=== PATIENT | male | born 1940 | race Caucasian/White ===

== ENCOUNTER 2023-04-08 14:39 | Outpatient (OUT) | payer MEDICARE, SELFPAY ==
[2023-04-08 16:09] LABS: Thyroid Stimulating Hormone 2.421 uIU/mL (0.358-3.740)
== END 2023-04-08 14:40 | disposition home or self-care (01) ==
LOC: LAB 14:42
PROVIDERS: PCP Internal Medicine; Visit Provider Psychiatry & Neurology Neurology
DX: G31.84 Mild cognitive impairment of uncertain or unknown etiology (principal)
CPT/HCPCS: 36415; 82607; 82746; 84443

== ENCOUNTER 2023-04-11 12:16 | Outpatient (OUT) | payer MEDICARE, SELFPAY ==
[2023-04-11 12:29] LABS: Hematocrit 43.3 % (42.0-54.0); Hemoglobin 14.2 g/dL (14.0-18.0); Mean Corpuscular HGB Conc 32.8 g/dL (29.9-35.2); Mean Corpuscular Hemoglobin 32.3 pg (25.9-34.0); Mean Corpuscular Volume 98.4 fL (80.0-94.0); Mean Platelet Volume 11.9 fL (9.5-13.5); Platelet Count 143 10^3/uL (150-450); Red Cell Distribution Width 14.6 % (11.0-15.0); White Blood Count 26.1 10^3/uL (4.0-11.0)
[2023-04-11 12:58] LABS: Segmented Neut Absolute Manual 3.91 10^3/uL (1.4-6.5)
[2023-04-11 12:59] LABS: Anisocytosis 1+; Atypical Lymphocytes Abs Man 7.8; Lymphocytes Absolute Manual 13.57 10^3/uL (1.20-3.80); Monocytes Absolute Manual 0.78 10^3/uL (0.30-0.80); Smudge Cells SEEN
[2023-04-11 13:45] LABS: Alanine Aminotransferase 27 U/L (16-63); Albumin Globulin Ratio 1.3; Albumin Level 3.8 g/dL (3.4-5.0); Alkaline Phosphatase 94 U/L (46-116); Anion Gap 10.8; Aspartate Amino Transferase 12 U/L (15-37); BUN Creatinine Ratio 14.4; Bilirubin Total 0.7 mg/dL (0.2-1.0); Calcium 8.7 mg/dL (8.5-10.1); Carbon Dioxide 29.5 mmol/L (21.0-32.0); Chloride 102 mmol/L (98-107); Chol HDL Ratio 4.4; Cholesterol 158 mg/dL (<=200); Estimated GFR (African America >60 (>=60); Estimated GFR (Non-African Ame >60 (>=60); Globulin 2.9 g/dL; Glucose 271 mg/dL (74-106); HDL Cholesterol 36 mg/dL (40-60); Potassium 4.3 mmol/L (3.5-5.1); Sodium 138 mmol/L (136-145); Total Protein 6.7 g/dL (6.4-8.2); Triglycerides 192 mg/dL (<=150); VLDL CHOLESTEROL 38.4 mg/dL
[2023-04-11 14:26] LABS: Estimated Average Glucose 246 mg/dL; Glycohemoglobin A1C 10.2 % (4.5-6.2)
[2023-04-11 14:40] LABS: Creatinine Urine Random 54.85 mg/dL (20.00-300.00); Microalbum Creatinine Ratio Ur 23.7 mg/g (0.0-29.9); Microalbumin Urine Random <1.3 mg/dL (<=30.0)
== END 2023-04-11 12:17 | disposition home or self-care (01) ==
LOC: LAB 12:16
PROVIDERS: PCP Internal Medicine; Visit Provider Internal Medicine
DX: E11.9 Type 2 diabetes mellitus without complications (principal); E78.5 Hyperlipidemia, unspecified
CPT/HCPCS: 36415; 80053; 80061; 82043; 82570; 83036; 85027

== ENCOUNTER 2023-07-09 14:56 | Outpatient (OUT) | payer MEDICARE, SELFPAY ==
[2023-07-09 15:32] LABS: Estimated Average Glucose 166 mg/dL; Glycohemoglobin A1C 7.4 % (4.5-6.2)
[2023-07-09 15:46] LABS: Chol HDL Ratio 4.4; Cholesterol 140 mg/dL (<=200); HDL Cholesterol 32 mg/dL (40-60); Triglycerides 224 mg/dL (<=150); VLDL CHOLESTEROL 44.8 mg/dL
== END 2023-07-09 14:57 | disposition home or self-care (01) ==
LOC: LAB 15:01
PROVIDERS: PCP Internal Medicine; Visit Provider Internal Medicine
DX: E78.5 Hyperlipidemia, unspecified (principal); E11.9 Type 2 diabetes mellitus without complications
CPT/HCPCS: 36415; 80061; 83036

== ENCOUNTER 2023-10-24 17:30 | Emergency (ER) | payer OTHER, SELFPAY ==
[2023-10-24 17:38] VITALS: BP 128/65; PULSE 91; RESP 16; TEMP 37.4; O2SAT 96; BMI 28.3
--- NOTE | 2023-10-24 17:41 | ED.MEDCLEAR1 ---
HPI - Medical Clearance General Chief complaint: Medical Clearance Stated complaint: HEADACHE, COUGH, WANTS CHECKED COVID Time Seen by Provider: 10/24/23 17:32 Source: patient Mode of arrival: walk-in Limitations: no limitations History of Present Illness HPI Narrative: Patient is an 83-year-old male who presents to the ER for 2-day history of headache and fatigue. He has not had any chest pain, shortness of breath, fevers, vomiting, diarrhea. He states he is supposed to do a service at a [place] [facility] on Saturday and wanted to be tested for COVID. No medications taken prior to arrival. No testing done by his PCP. He did not take any home COVID test. He states the headache comes and goes, no visual loss or peripheral paresthesias. No dizziness or syncope. He has no significant pain at this time. Related Information Home Medications Medication Instructions Recorded Confirmed gabapentin 300 mg capsule 300 mg PO Q12H 10/24/23 10/24/23 methotrexate sodium 2.5 mg tablet 2.5 mg PO .weekly 10/24/23 10/24/23 sitagliptin phosphate 100 mg 100 mg PO DAILY 10/24/23 10/24/23 tablet (Januvia) Previous Rx's Medication Instructions Recorded nirmatrelvir 300 mg (150 mg See Rx Instructions PO .COMPLEX 10/24/23 x2)-ritonavir 100 mg tablet,dose #30 ea pack (Paxlovid) Review of Systems ROS Constitutional Reports: fatigue; Denies: fever or chills Eyes Denies: change in vision Ears, nose, mouth, and throat Denies: throat pain or nasal congestion Cardiovascular Denies: chest pain Respiratory Reports: cough; Denies: shortness of breath Gastrointestinal Denies: nausea, vomiting or diarrhea Musculoskeletal Denies: back pain Integumentary/Breast Denies: rash Neurological Reports: headache Hematologic/Lymphatic Denies: easy bruising or easy bleeding PFSH PFS Social History Smoking status: Never smoker Exam Narrative Exam Narrative: Gen.: Awake, alert, in no distress Head: Normocephalic, atraumatic ENT: Moist mucous membranes, No meningismus or nuchal rigidity Respiratory: No respiratory distress, lungs clear bilaterally Cardio: Regular rate and rhythm Extremities: Moves extremities equally Psych: Normal mood and affect Neuro: No focal neuro deficit Skin: Warm, dry, intact Constitutional Vital Signs, click to edit/add: Last Vital Signs Temp 99.4 F 10/24/23 17:38 Pulse 91 H 10/24/23 17:38 Resp 16 10/24/23 17:38 BP 128/65 10/24/23 17:38 Pulse Ox 96 10/24/23 17:38 O2 Del Method Room Air 10/24/23 17:38 Course Vital Signs Vital signs: Vital Signs Temperature 99.4 F 10/24/23 17:38 Pulse Rate 91 H 10/24/23 17:38 Respiratory Rate 16 10/24/23 17:38 Blood Pressure 128/65 10/24/23 17:38 Pulse Oximetry 96 10/24/23 17:38 Oxygen Delivery Method Room Air 10/24/23 17:38 Temperature 99.4 F 10/24/23 17:38 Pulse Rate 91 H 10/24/23 17:38 Respiratory Rate 16 10/24/23 17:38 Blood Pressure 128/65 10/24/23 17:38 Pulse Oximetry 96 10/24/23 17:38 Oxygen Delivery Method Room Air 10/24/23 17:38 MDM - Medical Clearance MDM Narrative Medical decision making narrative: Patient is positive for COVID, stable vital signs in the ER and treated with Decadron. He is on methotrexate daily so we will consider treating with Paxlovid for home due to his age and immune compromise. Follow-up with PCP and return to the ER if symptoms change or worsen. Medical Records Attestation: I reviewed the patient's medical records. Lab Data Attestation: I reviewed the patient's lab results. Labs: Lab Results 10/24/23 Range/Units 17:40 Influenza Type A Ag Negative Influenza Type B Ag Negative SARS-CoV-2 Ag (CV2AG) Positive A (NEGATIVE) Discharge Plan Discharge Chief Complaint: Medical Clearance Clinical Impression: COVID-19 Patient Disposition: Home, Self-Care Time of Disposition Decision: 18:12 Condition: Good Prescriptions / Home Meds: New Paxlovid 300 mg (150 mg x 2)-100 mg tablets,dose pack See Rx Instructions .ROUTE .COMPLEX Qty: 30 0RF Rx Instructions: take TWO 150 mg tablets of nirmatrelvir with ONE 100 mg tablet of ritonavir twice daily for 5 days No Action gabapentin 300 mg capsule 300 mg PO Q12H methotrexate sodium 2.5 mg tablet 2.5 mg PO .weekly Januvia 100 mg tablet 100 mg PO DAILY Instructions: How to Recover from COVID-19 at Home (ED) Stand Alone Forms: Portal Instructions Referrals: Shaikh Barrera MD [Primary Care Provider] - 1 week
[2023-10-24] MEDS: DEXAMETHASONE SOD PHOS 10 MG/ML VIAL PO (17:57)
[2023-10-24 18:09] LABS: Influenza Virus A Antigen Negative; Influenza Virus B Antigen Negative; Internal Control Within Normal Limits; SARS-CoV-2 Ag POSITIVE (NEGATIVE)
--- OUTSIDE RECORDS SUMMARY | 2023-10-24 18:10 | XMS_ITS | CCD ---
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 Ordering Facility: [facility] Address: [address] [place] [address] Performed By: #### 3 084-1, 0, #### [facility] CLIA [id number] [address] [place] [address] 81931 ALT [Catalytic activity/Vol] 13 U/L Normal 10-54 [facility] Comment on above: Order Comment: Speci men Type: BLOOD SPECIMEN Ordering Facility: [facility] Address: [address] [place] [address] Performed By: #### 3 084-1, 2531-0, #### [facility] CLIA [id number] [address] [place] [address] 10204 Anion gap [Moles/Vol] 9 mmol/L Normal 9-18 [facility] Comment on above: Order Comment: Speci men Type: BLOOD SPECIMEN Ordering Facility: [facility] Address: [address] [place] [address] Performed By: #### 3 084-1, 0, #### [facility] CLIA [id number] [address] [place] [address] 62590 AST [Catalytic activity/Vol] 16 U/L Normal 14-40 [facility] Comment on above: Order Comment: Speci men Type: BLOOD SPECIMEN Ordering Facility: [facility] Address: [address] [place] [address] Performed By: #### 3 084-1, 0, #### [facility] CLIA [id number] [address] [place] [address] 79864 Bilirubin [Mass/Vol] 0.6 mg/dL Normal 0.2-1.3 [facility] Comment on above: Order Comment: Speci men Type: BLOOD SPECIMEN Ordering Facility: [facility] Address: [address] [place] [address] Performed By: #### 3 084-1, 0, #### [facility] CLIA [id number] [address] [place] [address]100 Calcium [Mass/Vol] 10.0 mg/dL Normal 8.5-10.2 [facility] Comment on above: Order Comment: Speci men Type: BLOOD SPECIMEN Ordering Facility: [facility] Address: [address] [place] [address] Performed By: #### 3 084-1, 0, #### [facility] CLIA [id number] [address] [place] [address] 15628 Chloride [Moles/Vol] 103 mmol/L Normal 97-105 [facility] Comment on above: Order Comment: Speci men Type: BLOOD SPECIMEN Ordering Facility: [facility] Address: [address] [place] [address] Performed By: #### 3 084-1, 0, #### [facility] CLIA [id number] [address] [place] [address] 65940 CO2 [Moles/Vol] 29 mmol/L Normal 22-30 [facility] Comment on above: Order Comment: Speci men Type: BLOOD SPECIMEN Ordering Facility: [facility] Address: [address] [place] [address] Performed By: #### 3 084-1, 2532-0, 54078-2 #### [facility] CLIA [id number] [address] [place] [address] 08268 Creatinine [Mass/Vol] 1.04 mg/dL Normal 0.73-1.22 [facility] Comment on above: Order Comment: Speci men Type: BLOOD SPECIMEN Ordering Facility: [facility] Address: [address] [place] [address] Performed By: #### 3 084-1, 253-0, #### [facility] CLIA [id number] [address] [place], [place] [id number] Creatinine and Glomerular filtration rate.predicted panel (S/P/Bld) 70 mL/min/1.73m??? Normal >=60 [facility] Comment on above: Order Comment: Speci men Type: BLOOD SPECIMEN Ordering Facility: [facility] Address: [address] [place] [address] Result Comment: Mandy mated Glomerular Filtration Rate (eGFR) is calculated using the 2020 CKD-EPI creatinine equation. This equation utilizes serum creatinine, sex, and age as parameters. The creatinine assay has traceable calibration to isotope dilution-mass spectrometry. Refer to KDIGO guidelines for clinical interpretation. In patients with unstable renal function, e.g. those with acute kidney injury, the eGFR may not accurately reflect actual GFR. Performed By: #### 3 084-1, 2532-0, 58278-5 #### [facility] CLIA [id number] [address] [place] [address] 76614 Glucose [Mass/Vol] 168 mg/dL High 74-99 [facility] Comment on above: Order Comment: Speci men Type: BLOOD SPECIMEN Ordering Facility: [facility] Address: [address] [place] [address] Result Comment: The [place] [employer] (ADA) provides guidance for cutoff values for fasting glucose and random glucose. The ADA defines fasting as no caloric intake for at least 8 hours. Fasting plasma glucose results between 100 to 125 mg/dL indicate increased risk for diabetes (prediabetes). Fasting plasma glucose results greater than or equal to 126 mg/dL meet the criteria for diagnosis of diabetes. In the absence of unequivocal hyperglycemia, results should be confirmed by repeat testing. In a patient with classic symptoms of hyperglycemia or hyperglycemic crisis, random plasma glucose results greater than or equal to 200 mg/dL meet the criteria for diagnosis of diabetes. Reference: Standards of Medical Care in Diabetes 2016, [place] [employer]. Diabetes Care. 2016.39(Suppl 1). Performed By: #### 3 084-1, 2531-0, #### [facility] CLIA [id number] [address] [place] [address] 32058 Potassium [Moles/Vol] 4.5 mmol/L Normal 3.7-5.1 [facility] Comment on above: Order Comment: Speci men Type: BLOOD SPECIMEN Ordering Facility: [facility] Address: [address] [place] [address] Performed By: #### 3 084-1, 0, #### [facility] CLIA [id number] [address] [place] [address] 89432 Protein [Mass/Vol] 6.8 g/dL Normal 6.3-8.0 [facility] Comment on above: Order Comment: Speci men Type: BLOOD SPECIMEN Ordering Facility: [facility] Address: [address] [place] [address] Performed By: #### 3 084-1, 2531-0, #### [facility] CLIA [id number] [address] [place] [address] 46842 Sodium [Moles/Vol] 141 mmol/L Normal 136-144 [facility] Comment on above: Order Comment: Speci men Type: BLOOD SPECIMEN Ordering Facility: [facility] Address: [address] [place] [id number] Performed By: #### 3 084-1, 2532-0, 89106-6 #### [facility] CLIA [id number] [address] [place] [address] 43610 Urea nitrogen [Mass/Vol] 23 mg/dL Normal 9-24 [facility] Comment on above: Order Comment: Speci men Type: BLOOD SPECIMEN Ordering Facility: [facility] Address: [place] [address] Performed By: #### 3 084-1, 2531-0, #### [facility] CLIA [id number] [address] [place] [address] 53602 Albumin [Mass/Vol] 4.6 g/dL 3.9 - 4.9 g/dL [facility] ALP [Catalytic activity/Vol] 93 U/L 38 - 113 U/L [facility] ALT [Catalytic activity/Vol] 13 U/L 10 - 54 U/L [facility] Anion gap [Moles/Vol] 9 mmol/L 9 - 18 mmol/L [facility] AST [Catalytic activity/Vol] 16 U/L 14 - 40 U/L [facility] Bilirubin [Mass/Vol] 0.6 mg/dL 0.2 - 1 .3 mg/dL [facility] Calcium [Mass/Vol] 10.0 mg/dL 8.5 - 10. 2 mg/dL [facility] Chloride [Moles/Vol] 103 mmol/L 97 - 10 5 mmol/L [facility] CO2 [Moles/Vol] 29 mmol/L 22 - 30 mmol/L [facility] Creatinine [Mass/Vol] 1.04 mg/dL 0.73 - 1.22 mg/dL [facility] Estimated Glomerular Filtration Rate 70 mL/min/1.73m >=60 mL/min/1.73m [facility] Glucose [Mass/Vol] 168 mg/dL High 74 - 99 mg/dL [facility] Potassium [Moles/Vol] 4.5 mmol/L 3.7 - 5.1 mmol/L [facility] Protein [Mass/Vol] 6.8 g/dL 6.3 - 8.0 g/dL [facility] Sodium [Moles/Vol] 141 mmol/L 136 - 144 mmol/L [facility] Urea nitrogen [Mass/Vol] 23 mg/dL 9 - 24 mg/dL [facility] LD LACTATE DEHYDROon 023 LDH [Catalytic activity/Vol] 193 U/L 135 - 225 U/L [facility] LDH SerPl-cCncon 08-08-2023 LDH [Catalytic activity/Vol] 193 U/L Normal 135-225 [facility] Comment on above: Order Comment: Speci men Type: BLOOD SPECIMEN Ordering Facility: [facility] Address: [address] [place], [place] [address] Result Comment: Hemo lysis present. The origin of the hemolysis, in vitro versus an in vivo hemolytic process, cannot be distinguished via this assay alone. In vitro hemolysis may lead to non-physiological (spurious) elevation in lactate dehydrogenase (LDH) results. The result should be interpreted in context of the clinical setting and other test results. Suggest reorder as clinically indicated. Performed By: #### 3 084-1, 2532-0, 34243-5 #### [facility] CLIA [id number] [address] [place] [address] 41590 URIC ACID BLOODon 08-08-2023 Urate [Mass/Vol] 4.9 mg/dL 4.0 - 8.1 mg/dL [facility] Urate SerPl-mCncon 3 Urate [Mass/Vol] 4.9 mg/dL Normal 4.0-8.1 [facility] Comment on above: Order Comment: Speci men Type: BLOOD SPECIMEN Ordering Facility: [facility] Address: [address] [place], [place] [address] Performed By: #### 3 084-1, 2532-0, 32957-5 #### [facility] CLIA [id number] [address] [place] [address] 57218 ECHOCARDIO M/2D COMPLETEon 1 09-30-2021 ECHOCARDIO M/2D COMPLETE Patient: RISHI DE LEON Exam Date: 07/31/2022 : 1940 Gender:M Ordering : SUZANNE MARIN CNP Admission #: [id number] Family : Order #: [id number] CLICK HERE TO VIEW EXAM ECHOCARDIOGRAM REPORT PROCEDURE: CARDIO PULMONARY ECHOCARDIO M/2D COMP INDICATIONS: Murmur COMPARISON: None. DESCRIPTION: COMPLETE ECHOCARDIOGRAM Real-time transthoracic echocardiography with 2D, M-mode, spectral and color flow Doppler performed. QUALITY: Technical quality was good. LEFT VENTRICLE: Normal chamber size. Thickened septal wall. LV EF: Global left ventricular systolic function is normal. Visual estimation of left ventricular ejection fraction is 60%. DIASTOLIC: Unable to assess diastolic function due to severity of mitral regurgitation. ATRIAL SEPTUM: Inadequately seen. LEFT ATRIUM: Moderate dilatation. RIGHT ATRIUM: Normal chamber size. RIGHT VENTRICLE: Mild dilatation. Normal right ventricular systolic function. Right ventricular hypertrophy seen. TRICUSPID VALVE: Normal mobility and thickness. No stenosis with trivial regurgitation. Mild pulmonary hypertension. RVSP 35mmHg MITRAL VALVE: Anterior and posterior mitral valve leaflet prolapse. No evidence of mitral valve stenosis. Moderate mitral annular calcification. Moderate to severe mitral regurgitation. Calcification of the mitral subvalvular apparatus. AORTIC VALVE: Normal trileaflet appearance. No visible sclerosis. Normal leaflet mobility. No evidence of aortic valve stenosis. Mild aortic regurgitation. AORTIC ROOT: Mildly dilated measuring 3.7cm. PULMONIC VALVE: Normal thickness and mobility. No stenosis. No regurgitation. PERICARDIUM: Trivial pericardial effusion. IVC: Collapses with inspirations. Normal size. CONCLUSION: Global left ventricular systolic function is normal; visually estimated ejection fraction is 60 to 65%. No wall motion abnormalities. Unable to assess diastolic function. Moderate left atrial dilatation. Right ventricle appears dilated with normal systolic function. Right ventricular hypertrophy is seen. Mildly elevated right ventricular systolic pressure. Bileaflet mitral valve prolapse. Moderate to severe mitral regurgitation. Mild aortic regurgitation. The aortic root is mildly dilated. Trivial pericardial effusion. Adult Echocardiography Procedure Report Left Ventricle LVEDD (3.7 - 5.6 cm): 5.07 cm LVESD (2.2 - 4.0 cm): 3.31 cm LVIVS thickness (0.6 - 1.2 cm): 1.18 cm LVPW thickness (0.5 - 1.0 cm): 0.89 cm e': 0.06 m/s E - e': 19.37 LVOT Max Gradient: 3.74 mm[Hg] Peak Velocity (LVOT): 0.97 m/s LVOT Diameter 2.18 cm Left Ventricular Ejection Fraction: 63.41 %, 63.41 % Left Atrium LA Volume Index (2D A2C): 73.67 ml, 73.67 ml Left Atrium Systolic Dimension: 3.56 cm Mitral Valve MV E to A Ratio: 1.13, 1.25 Mitral Valve A-Wave Peak Velocity: 0.92 m/s, 0.97 m/s Mitral Valve E-Wave Peak Velocity: 1.04 m/s, 1.22 m/s Right Ventricle RV Internal Diastolic Dimension: 3.87 cm Aorta AO Root Diam: 3.70 cm Ascending Ao Diam: 3.16 cm Aortic Valve AoV Area (Peak Des): 3.25 cm2, 3.25 cm2 Deceleration [place]: 0.65 m/s2 Pressure Half-Time: 897.66 ms Peak Velocity(Antegrade Flow): 1.11 m/s Peak Gradient(Antegrade Flow): 4.88 mm[Hg] Tricuspid Valve Peak Velocity (Regurgitant Flow): 3.25 m/s, 2.73 m/s, 2.40 m/s Peak Velocity: 0.38 m/s Pulmonic Valve Peak Velocity: 0.92 m/s, 0.89 m/s Peak Gradient: 3.42 mm[Hg], 3.18 mm[Hg] Right Atrium Right Atrium Systolic Pressure: 39.32 ml, 39.32 ml Dictated by: Gisela Mendes M.D. on 08/01/2022 at 15:17 Approved by: Gisela Mendes M.D. on 08/01/2022 at 15:23 Normal [facility] GLYCOHEMOGLOBIN A1Con 2021 ADA RECOMMENDATION SEE BELOW Normal [facility] Comment on above: Result Comment: ADA RECOMMENDED LIMIT 4.0 - 6.0 ADA THERAPEUTIC TARGET < 7.0 ACTION SUGGESTED > 7.0 Performed By: #### A 1C #### [facility] [address] [place] [address] [address] Estrada Carpenter Glucose [Mass/Vol] 206 mg/dL Normal [facility] Comment on above: Performed By: #### A 1C #### [facility] [address] [place], [place] [address] Dr. Estrada Carpenter HbA1c (Bld) [Mass fraction] 8.8 % Critically high 4.5-6.2 [facility] Comment on above: Performed By: #### A 1C #### [facility] [address] [place] [address] Dr. Estrada Carpenter PROF CHEM 8 (BAS METB)on Anion gap [Moles/Vol] 10.7 mmol/L Normal [facility] Comment on above: Performed By: #### B MP #### [facility] [address] [place] [address] Dr. Estrada Carpenter Calcium [Mass/Vol] 8.8 mg/dL Normal 8.5-10.1 [facility] Comment on above: Performed By: #### B MP #### [facility] [address] [place] [address] Dr. Estrada Carpenter Chloride [Moles/Vol] 103 mmol/L Normal 98-107 [facility] Comment on above: Performed By: #### B MP #### [facility] [address] [place] [address] Dr. Estrada Carpenter CO2 [Moles/Vol] 26.4 mmol/L Normal 21.0-32.0 [facility] Comment on above: Performed By: #### B MP #### [facility] [address] [place] [address] Dr. Estrada Carpenter Creatinine [Mass/Vol] 0.89 mg/dL Normal 0.70-1.30 [facility] Comment on above: Performed By: #### B MP #### [facility] [address] [place] [address] Dr. Estrada Carpenter EGFR-AF VINCENTIAN >60 Normal >=60 [facility] Comment on above: Performed By: #### B MP #### [facility] [address] [place] [address] Dr. Estrada Carpenter EGFR-NON AF VINCENTIAN >60 Normal >=60 [facility] Comment on above: Performed By: #### B MP #### [facility] [address] [place] [address] Dr. Estrada Carpenter Glucose [Mass/Vol] 167 mg/dL Critically high 74-106 [facility] Comment on above: Performed By: #### B MP #### [facility] [address] [place] [address] [address] Estrada Carpenter Potassium [Moles/Vol] 4.1 mmol/L Normal 3.5-5.1 [facility] Comment on above: Performed By: #### B MP #### [facility] [address] [place] [address] [address] Estrada Carpenter Sodium [Moles/Vol] 136 mmol/L Normal 136-145 [facility] Comment on above: Performed By: #### B MP #### [facility] [address] [place] [address] [address] Estrada Carpenter Urea nitrogen [Mass/Vol] 17.0 mg/dL Normal 7.0-18.0 [facility] Comment on above: Performed By: #### B MP #### [facility] [address] [place] [address] [address] Estrada Carpenter Urea nitrogen/Creatinine [Mass ratio] 19.1 mg/mg Normal [facility] Comment on above: Performed By: #### B MP #### [facility] [address] [place] [address] [address] Estrada Carpenter US abdomen limitedon 022 US abdomen limited [facility] [place] [address] Ultrasound Report Signed with Addenda Patient: Rishi De Leon MR#: [id number] : 1940 Acct:[id number] Age/Sex: 82 / M ADM Date: 05/08/22 Loc: Room: Type: [facility] Attending Dr: Shaikh Destinee CARIAS Ordering Provider: Shaikh Destinee MD Date of Service: 05/08/22 US/US abdomen limited: SCROTAL PAIN Copies to: Shaikh Destinee MD ADDENDUM 1 Correction to the history: A prior colostomy site is in the region of the concern involving the left lower quadrant. Findings seen on today's study likely represents fat protruding through the prior colostomy site. Impression dictated by: Tan Zapien Jr., D.O.05/08/2022 6:39 PM Dictation Location: [facility]- Addendum Dictated By: Tan Zapien Jr, DO Addendum Signed By: 05/08/221838 Addendum Cosigned By: DD/ /21/1837 TD/TT: 05/08/2202/21/1839 Soft tissue ULTRASOUND: CLINICAL HISTORY: LLQ pain with protrusion COMPARISON: None TECHNIQUE: Grayscale and color Doppler images of the LLQ was obtained. FINDINGS: An area of concern involving the left lower quadrant, scarring is noted. In addition, there appears to be a hernia defect containing fat best seen on the cine imaging. No peristalsing bowel is noted. Per technologist, the patient has a colostomy within the region. No solid mass or fluid collection. US/US abdomen limited IMPRESSION: A HERNIA DEFECT CONTAINING FAT IS SEEN IN THE AREA OF CONCERN INVOLVING THE LEFT LOWER QUADRANT. PER TECHNOLOGIST, A COLOSTOMY IS WITHIN THIS REGION. 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 NO PERISTALSING BOWEL IS NOTED. FINDING CAN BE FURTHER EVALUATED BY CT.. Impression dictated by: Tan Zapien Jr., D.O.05/08/2022 5:59 PM Dictation Location: [place] [address] Tech: Justa Edmonds Transcribed By: DEIDRA 05/08/221758 Dictated By: Tan Zapien Jr, DO 05/08/22 174 Signed By: 05/08/221758 [facility] US scrotumon 05-08-2022 US scrotum [facility] [address] Ultrasound Report Signed Patient: Rishi De Leon MR#: [id number] : 1940 Acct:[id number] Age/Sex: 82 / M ADM Date: 05/08/22 Loc: Room: Type: [facility] Attending Dr: Shaikh Destinee CARIAS Ordering Provider: Shaikh Destinee MD Date of Service: 05/08/22 US/US scrotum: N50.82 Copies to: Shaikh Destinee MD Scrotal ultrasound. Reason for exam: Left testicular pain. COMPARISON: None. TECHNIQUE: Grayscale, color Doppler and spectral Doppler imaging of the scrotal contents were obtained. FINDINGS: Right testicle measures 4.3 x 1.8 x 3.8 cm. Normal arterial and venous Doppler waveforms. No mass or microlithiasis. Epididymis demonstrates a cyst measuring 2.8 cm. Small complex hydrocele Left testicle measures 4.7 x 2.6 x 2.8 cm. Normal arterial and venous Doppler waveforms. No mass or microlithiasis. Epididymis appears unremarkable. No hydrocele. US/US scrotum IMPRESSION: 1. No evidence of testicular mass or torsion. 2. Small complex right-sided hydrocele. 3. Right epididymal cyst measuring 2.8 cm. Impression dictated by: Tan Zapien Jr., D.O.05/08/2022 6:16 PM Dictation Location: [place] [address] Tech: Justa Edmonds Transcribed By: DEIDRA 05/08/221815 Dictated By: Tan Zapien Jr, DO 05/08/221811 Signed By: 05/08/221815 Normal [facility] CBC W MANUAL DIFFon 01-04-20 ATYPICAL LYMPH # Normal [facility] Comment on above: Performed By: #### C BCDEEPTI #### [facility] [address] [place] [address] Dr. Estrada Carpenter ATYPICAL LYMPH % Normal [facility] Comment on above: Performed By: #### C BCMAN #### [facility] [address] [place] [address] [address] Estrada Carpenter BAND # 0.0 103/ul Normal 0.0-0.[address] [facility] Comment on above: Performed By: #### C BCMAN #### [facility] [address] [place] [address] [address] Estrada Carpenter BAND % 0 % Normal 0-[address] [facility] Comment on above: Performed By: #### C BCMAN #### [facility] [address] [place] [address] Dr. Estrada Carpenter BASOM # 0.00 103/ul Normal 0.00-0.[address] [facility] [facility] Comment on above: Performed By: #### C BCMAN #### [facility] [address] [address] [address] Estrada Carpenter BASOM % 0.0 % Critically low 0.2-2.0 [facility] Comment on above: Performed By: #### C BCMAN #### [facility] [address] [address] [address] Estrada Carpenter BLAST # Normal [facility] Comment on above: Performed By: #### C BCMAN #### [facility] [address] [address] [address] Estrada Carpenter BLAST % Normal [facility] Comment on above: Performed By: #### C BCMAN #### [facility] [address] [address] [address] Estrada Carpenter CORRECTED WBC Normal 4.0-11.0 [facility] Comment on above: Performed By: #### C SHLOMOMAN #### [facility] [address] [place] [address] Dr. Estrada Carpenter EOS # 0.00 103/ul Normal 0.00-0.70 [facility] Comment on above: Performed By: #### C BCDEEPTI #### [facility] [address] [place] [address] Dr. Estrada Carpenter EOS% 0.0 % Critically low 0.9-7.0 [facility] Comment on above: Performed By: #### C BCDEEPTI #### [facility] [address] [place] [address] Dr. Estrada Carpenter HCT 44.2 % Normal 42.0-54.0 [facility] Comment on above: Performed By: #### C BCMAN #### [facility] [address] [place] [address] Dr. Estrada Carpenter HGB 13.8 g/dl Critically low 14.0-18.0 [facility] Comment on above: Performed By: #### C BCMAN #### [facility] [address] [place] [address] Dr. Estrada Carpenter LYMPHM # 14.11 103/ul Critically high 1.20-3.80 [facility] Comment on above: Performed By: #### C BCMAN #### [facility] [address] [address] [address] Estrada Carpenter LYMPHM% 72.0 % Critically high 20.5-60.0 [facility] Comment on above: Performed By: #### C KATIE #### [facility] [address] [place] [address] Dr. Estrada Carpenter MCH 31.3 pg Normal 25.9-34.[address] [facility] Comment on above: Performed By: #### C KATIE #### [facility] [address] [place] [address] Dr. Estrada Carpenter MCHC 31.2 g/dl Normal 29.9-35.2 [facility] Comment on above: Performed By: #### C KATIE #### [facility] [address] [place] [address] Dr. Estrada Carpenter MCV 100.2 fL Critically high 80.0-94.0 [facility] Comment on above: Performed By: #### C KATIE #### [facility] [address] [place] [address] Dr. Estrada Carpenter METAMYELOCYTE # Normal [facility] Comment on above: Performed By: #### C KATIE #### [facility] [address] [place] [address] Dr. Estrada Carpenter METAMYELOCYTE % Normal [facility] Comment on above: Performed By: #### C KATIE #### [facility] [address] [place] [address] Dr. Estrada Carpenter MONOM# 0.78 103/ul Normal 0.30-0.80 [facility] Comment on above: Performed By: #### C KATIE #### [facility] [address] [place] [address] Dr. Estrada Carpenter MONOM% 4.0 % Normal 1.7-12.0 [facility] Comment on above: Performed By: #### C KATIE #### [facility] [address] [place] [address] Dr. Estrada Carpenter MPV 12.1 fL Normal 9.5-13.[address] [facility] Comment on above: Performed By: #### C BCMAN #### [facility] [address] [address] [address] Estrada Carpenter MYELOCYTE # Normal [facility] Comment on above: Performed By: #### C BCMAN #### [facility] [address] [address] [address] Estrada Carpenter MYELOCYTE % Normal [facility] Comment on above: Performed By: #### C BCDEEPTI #### [facility] [address] [address] [address] Estrada Carpenter NRBC Normal [facility] Comment on above: Performed By: #### C BCDEEPTI #### [facility] [address] [address] [address] Estrada Carpenter PLT 166 103/ul Normal 150-450 [facility] Comment on above: Performed By: #### C KATIE #### [facility] [address] [place] [address] Dr. Estrada Carpenter RBC 4.41 106/ul Critically low 4.70-6.10 [facility] Comment on above: Performed By: #### C KATIE #### [facility] [address] [place] [address] Dr. Estrada Carpenter RDW 14.9 % Normal 11.0-15.0 [facility] Comment on above: Performed By: #### C BCDEEPTI #### [facility] [address] [place] [address] Dr. Estrada Carpenter SEG # 4.70 103/ul Normal 1.40-6.50 [facility] Comment on above: Performed By: #### C BCDEEPTI #### [facility] [address] [place] [address] Dr. Estrada Carpenter SEG % 24.0 % Critically low 43.0-75.0 [facility] Comment on above: Performed By: #### C BCDEEPTI #### [facility] [address] [place] [address] Dr. Estrada Carpenter WBC 19.6 103/ul Critically high 4.0-11.0 [facility] Comment on above: Performed By: #### C BCMAN #### [facility] [address] [address] [address] Estrada Carpenter GLYCOHEMOGLOBIN A1Con 2021 ADA RECOMMENDATION SEE BELOW Normal [facility] Comment on above: Result Comment: ADA RECOMMENDED LIMIT 4.0 - 6.0 ADA THERAPEUTIC TARGET < 7.0 ACTION SUGGESTED > 7.0 Performed By: #### A 1C #### [facility] [address] [address] [address] Estrada Carpenter Glucose [Mass/Vol] 151 mg/dL Normal [facility] Comment on above: Performed By: #### A 1C #### [facility] [address] [place] [address] Dr. Estrdaa Carpenter HbA1c (Bld) [Mass fraction] 6.9 % Critically high 4.5-6.2 [facility] Comment on above: Performed By: #### A 1C #### [facility] [address] [address] [address] Estrada Carpenter LIPID PROFILEon 01-03-2022 CHOL-HDL RATIO NORM SEE BELOW Normal [facility] Comment on above: Result Comment: 3.3 - 4.4 LOW RISK 4.4 - 7.1 AVERAGE RISK 7.1 - 11.0 MODERATE RISK >11.0 HIGH RISK Performed By: #### C MP, LIPID #### [facility] [address] [place] [address] Dr. Estrada Carpenter Cholesterol [Mass/Vol] 158 mg/dL Normal <=[address] [facility] Comment on above: Performed By: #### C MP, LIPID #### [facility] [address] [address] [address] Estrada Carpenter Cholesterol in HDL [Mass/Vol] 42 mg/dL Normal 40-[address] [facility] Comment on above: Performed By: #### C MP, LIPID #### [facility] [address] [address] [address] Estrada Carpenter Cholesterol in LDL [Mass/Vol] 85.0 mg/dL Normal [facility] Comment on above: Performed By: #### C MP, LIPID #### [facility] [address] [address] [address] Estrada Carpenter Cholesterol.total/Ch olesterol in HDL [Mass ratio] 3.8 {ratio} Normal [facility] Comment on above: Performed By: #### C MP, LIPID #### [facility] [address] [address] [address] Estrada Carpenter HDL NORMAL > or = 60 mg/dl - LO W CARDIOVASCULAR RISK <40 mg/dl - HIGH CARDIOVASCULAR RISK Normal [facility] Comment on above: Performed By: #### C MP, LIPID #### [facility] [address] [address] [address] Estrada Carpenter LDL CALC NORMAL SEE BELOW Normal [facility] Comment on above: Result Comment: <100 mg/dl OPTIMAL 100 - 129 mg/dl NEAR OR ABOVE OPTIMAL 130 - 159 mg/dl BORDERLINE HIGH 160 - 189 mg/dl HIGH >190 mg/dl VERY HIGH Performed By: #### C MP, LIPID #### [facility] [address] [place] [address] Dr. Estrada Carpenter Triglyceride [Mass/Vol] 155 mg/dL Critically high <=150 [facility] Comment on above: Performed By: #### C MP, LIPID #### [facility] [address] [place] [address] Dr. Estrada Carpenter VLDL CALC 31.0 mg/dL Normal [facility] Comment on above: Performed By: #### C MP, LIPID #### [facility] [address] [place] [address] Dr. Estrada Carpenter PROF 14(COMP METB)on 022 Albumin [Mass/Vol] 3.8 g/dL Normal 3.4-5.0 [facility] Comment on above: Performed By: #### C MP, LIPID #### [facility] [address] [place] [address] Dr. Estrada Carpenter Albumin/Globulin [Mass ratio] 1.3 {ratio} Normal [facility] Comment on above: Performed By: #### C MP, LIPID #### [facility] [address] [place] [address] Dr. Estrada Carpenter ALP [Catalytic activity/Vol] 92 U/L Normal 46-116 [facility] Comment on above: Performed By: #### C MP, LIPID #### [facility] [address] [address] [address] Estrada Carpenter ALT [Catalytic activity/Vol] 26 U/L Normal 16-63 [facility] Comment on above: Performed By: #### C MP, LIPID #### [facility] [address] [address] [address] Estrada Carpenter Anion gap [Moles/Vol] 11.2 mmol/L Normal [facility] Comment on above: Performed By: #### C MP, LIPID #### [facility] [address] [place] [address] Dr. Estrada Carpenter AST [Catalytic activity/Vol] 17 U/L Normal 15-37 [facility] Comment on above: Performed By: #### C MP, LIPID #### [facility] [address] [address] [address] Estrada Carpenter Bilirubin [Mass/Vol] 0.5 mg/dL Normal 0.2-1.0 [facility] Comment on above: Performed By: #### C MP, LIPID #### [facility] [address] [address] [address] Estrada Carpenter Calcium [Mass/Vol] 8.4 mg/dL Critically low 8.5-10.1 [facility] Comment on above: Performed By: #### C MP, LIPID #### [facility] [address] [address] [address] Estrada Carpenter Chloride [Moles/Vol] 102 mmol/L Normal 98-107 [facility] Comment on above: Performed By: #### C MP, LIPID #### [facility] [address] [address] [address] Estrada Carpenter CO2 [Moles/Vol] 29.3 mmol/L Normal 21.0-32.0 [facility] Comment on above: Performed By: #### C MP, LIPID #### [facility] [address] [place] [address] Dr. Estrada Carpenter Creatinine [Mass/Vol] 0.89 mg/dL Normal 0.70-1.30 [facility] Comment on above: Performed By: #### C MP, LIPID #### [facility] [address] [place] [address] Dr. Estrada Carpenter EGFR-AF VINCENTIAN >60 Normal >=60 [facility] Comment on above: Performed By: #### C MP, LIPID #### [facility] [address] [address] [address] Estrada Carpenter EGFR-NON AF VINCENTIAN >60 Normal >=60 [facility] Comment on above: Performed By: #### C MP, LIPID #### [facility] [address] [place] [address] Dr. Estrada Carpenter Globulin (S) [Mass/Vol] 3.0 g/dL Normal [facility] Comment on above: Performed By: #### C MP, LIPID #### [facility] [address] [place] [address] Dr. Estrada Carpenter Glucose [Mass/Vol] 145 mg/dL Critically high 74-106 [facility] Comment on above: Performed By: #### C MP, LIPID #### [facility] [address] [place] [address] Dr. Estrada Carpenter Potassium [Moles/Vol] 4.5 mmol/L Normal 3.5-5.1 [facility] Comment on above: Performed By: #### C MP, LIPID #### [facility] [address] [place] [address] Dr. Estrada Carpenter Protein [Mass/Vol] 6.8 g/dL Normal 6.1-8.2 [facility] Comment on above: Performed By: #### C MP, LIPID #### [facility] [address] [place] [address] Dr. Estrada Carpenter Sodium [Moles/Vol] 138 mmol/L Normal 136-145 [facility] Comment on above: Performed By: #### C MP, LIPID #### [facility] [address] [place] [address] Dr. Estrada Carpenter Urea nitrogen [Mass/Vol] 15.0 mg/dL Normal 7.0-18.0 [facility] Comment on above: Performed By: #### C MP, LIPID #### [facility] [address] [address] [address] Estrada Carpenter Urea nitrogen/Creatinine [Mass ratio] 16.9 mg/mg Normal [facility] Comment on above: Performed By: #### C MP, LIPID #### [facility] [address] [address] [address] Estrada Carpenter BASIC METABOLIC PANEL 12-3 Calcium [Mass/Vol] 8.9 mg/dL Normal 8.6-10.3 [facility] Comment on above: Order Comment: No: D o not add to previous draw Performed By: #### 1 69, [id number] ####[facility] [facility] [address], [facility] Chloride [Moles/Vol] 107 mmol/L Normal 98-[address] [facility] Comment on above: Order Comment: No: D o not add to previous draw Performed By: #### 1 69, [id number] ####[facility] [place] [address], [place] CO2 [Moles/Vol] 29 mmol/L Normal 21-31 [facility] Comment on above: Order Comment: No: D o not add to previous draw Performed By: #### 1 69, 10313 ####[facility] [place] [address], [place] Creatinine [Mass/Vol] 0.79 mg/dL Normal 0.70-1.[address] [facility] Comment on above: Order Comment: No: D o not add to previous draw Performed By: #### 1 69, 86896 ####[facility] [place] [address], [place] GFR/1.73 sq M.predicted among blacks MDRD (S/P/Bld) [Vol rate/Area] mL/min/{1.73_m2} Normal >[address] [facility] Comment on above: Order Comment: No: D o not add to previous draw Result Comment: Calc ulation may not be valid for patients over 70 years Performed By: #### 1 0, [id number] ####[facility] [place] [address], [facility] GFR/1.73 sq M.predicted among non-blacks MDRD (S/P/Bld) [Vol rate/Area] mL/min/{1.73_m2} Normal >[address] [facility] Comment on above: Order Comment: No: D o not add to previous draw Result Comment: Calc ulation may not be valid for patients over 70 years Performed By: #### 1 69, 25606 ####[facility] [place] [address], [place] Glucose [Mass/Vol] 147 mg/dL High 70-100 [facility] Comment on above: Order Comment: No: D o not add to previous draw Performed By: #### 1 69, 39259 ####[facility] [place] [address], [place] Potassium [Moles/Vol] 4.1 mmol/L Normal 3.5-5.[address] [facility] Comment on above: Order Comment: No: D o not add to previous draw Performed By: #### 1 69, 46734 ####[facility] [place] [address], [place] Sodium [Moles/Vol] 139 mmol/L Normal 136-145 [facility] Comment on above: Order Comment: No: D o not add to previous draw Performed By: #### 1 0, [id number] ####[facility] [place] [address], [place] Urea nitrogen [Mass/Vol] 22 mg/dL Normal 7-[address] [facility] Comment on above: Order Comment: No: D o not add to previous draw Performed By: #### 1 0070, 85528 ####[facility] CBC COMPLETE BLOOD COUNTon Erythrocyte distribution width (RBC) [Ratio] 14.9 % Normal 11.5-15.[address] [facility] Comment on above: Order Comment: No: D o not add to previous draw Performed By: #### 5 0608 ####[facility] Hematocrit (Bld) [Volume fraction] 38.1 % Low 39.0-50.[address] [facility] Comment on above: Order Comment: No: D o not add to previous draw Performed By: #### 5 0608 ####[place] [address] Hemoglobin (Bld) [Mass/Vol] 12.2 g/dL Low 13.0-17.[address] [facility] Comment on above: Order Comment: No: D o not add to previous draw Performed By: #### 5 0608 ####[place] [address] MCH (RBC) [Entitic mass] 31.0 pg Normal 27.0-33.[address] [facility] Comment on above: Order Comment: No: D o not add to previous draw Performed By: #### 5 0608 ####[facility] [address] MCHC (RBC) [Mass/Vol] 32.0 g/dL Normal 32.0-35.[address] [facility] Comment on above: Order Comment: No: D o not add to previous draw Performed By: #### 5 0608 ####[address] MCV (RBC) [Entitic vol] 96.9 fL Normal 82.0-98.[address] [facility] Comment on above: Order Comment: No: D o not add to previous draw Performed By: #### 5 0608 ####[facility] [place] [address], [facility] Nucleated RBC/100 WBC (Bld) [Ratio] 0 % Normal 0-[address] [facility] Comment on above: Order Comment: No: D o not add to previous draw Performed By: #### 5 0608 ####[facility] [place] [address], [facility] PLAT CNT 262 10*3/uL Normal 150-400 [facility] Comment on above: Order Comment: No: D o not add to previous draw Performed By: #### 5 0608 ####[address] [place] [address], [facility] RBC (Bld) [#/Vol] 3.93 10*6/uL Low 4.20-5.70 [facility] Comment on above: Order Comment: No: D o not add to previous draw Performed By: #### 5 0608 ####[facility] [place] [address], [facility] WBC (Bld) [#/Vol] 24.04 10*3/uL High 4.00-10.[address] [facility] Comment on above: Order Comment: No: D o not add to previous draw Performed By: #### 5 0608 ####[facility] [place] [address], [facility] MAGNESIUM BLOODon 08-31-2021 Magnesium [Mass/Vol] 2.0 mg/dL Normal 1.9-2.[address] [facility] Comment on above: Order Comment: No: D o not add to previous draw Performed By: #### 1 0070, 20588 ####[facility] [place] [address], [facility] POC GLUCOSE LABon 08-31-2021 Glucose [Mass/Vol] 150 mg/dL High 70-100 [facility] Comment on above: Performed By: #### 8 5499 ####[facility] [address] Glucose [Mass/Vol] 133 mg/dL High 70-100 [facility] Comment on above: Performed By: #### 8 5499 ####[facility] [address] POC SARS COV2 ANTIGEN NEGATI VEon 08-31-2021 POC SARS COV2 ANTIGEN NEG Negative Normal NEGATIVE [facility] Comment on above: Result Comment: Nega tive results from patients with symptom onset beyond seven days,should be treated presumptive and confirmation with a molecular assay,if necessary, for patient management, may be performed. Negative resultsdo not rule out SARS-CoV-2 infection and should not be used as the solebasis for treatment or patient management decisions, including infectioncontrol decisions. Negative results should be considered in the contextof a patient?s recent exposures, history and the presence of clinicalsigns and symptoms consistent with COVID-19.The [employer] COVID-19 Ag Card is a lateral flow immunoassay intended forthe qualitative detection of nucleocapsid protein antigen [id number] in direct nasal swabs from individuals within the first sevendays of symptom onset. Testing is limited to laboratories certifiedunder the Clinical Laboratory Improvement Amendments of 1988 (CLIA), [place] ???263a, that meet the requirements to perform moderate, high orwaived complexity tests. This test is authorized for use at the Point ofCare (POC), i.e., in patient care settings operating under a CLIACertificate of Waiver, Certificate of Compliance, or Certificate ofAccreditation. Performed By: #### 3 1977 ####[facility] BASIC METABOLIC PANELon 12-2 Calcium [Mass/Vol] 8.3 mg/dL Low 8.6-10.3 [facility] Comment on above: Order Comment: No: D o not add to previous draw Performed By: #### 0 0071, 54947, 69361 ####[facility] [place] [address], [facility] Chloride [Moles/Vol] 110 mmol/L High 98-[address] [facility] Comment on above: Order Comment: No: D o not add to previous draw Performed By: #### 0 0071, 93103, 92221 ####[facility] [place] [address], [facility] CO2 [Moles/Vol] 23 mmol/L Normal 21-31 The [facility] Comment on above: Order Comment: No: D o not add to previous draw Performed By: #### 0 0071, 75331, 90589 ####[facility] [place] [address], [facility] Creatinine [Mass/Vol] 0.83 mg/dL Normal 0.70-1.[address] [facility] Comment on above: Order Comment: No: D o not add to previous draw Performed By: #### 0 0071, 95080, 16675 ####[facility] [place] [address], [facility] GFR/1.73 sq M.predicted among blacks MDRD (S/P/Bld) [Vol rate/Area] mL/min/{1.73_m2} Normal >[address] [facility] Comment on above: Order Comment: No: D o not add to previous draw Result Comment: Calc ulation may not be valid for patients over 70 years Performed By: #### 0 0071, 92330, 22389 ####[facility] [facility] [place] [address], [facility] GFR/1.73 sq M.predicted among non-blacks MDRD (S/P/Bld) [Vol rate/Area] mL/min/{1.73_m2} Normal >[address] [facility] Comment on above: Order Comment: No: D o not add to previous draw Result Comment: Calc ulation may not be valid for patients over 70 years Performed By: #### 0 0071, 12788, 54579 ####[facility] [place] [address], [place] Glucose [Mass/Vol] 142 mg/dL High 70-100 [facility] Comment on above: Order Comment: No: D o not add to previous draw Performed By: #### 0 0071, 04630, 90373 ####[facility] [place] [address], [place] Potassium [Moles/Vol] 3.4 mmol/L Low 3.5-5.[address] [facility] Comment on above: Order Comment: No: D o not add to previous draw Performed By: #### 0 0071, 40530, 67453 ####[facility] [place] [address], [place] Sodium [Moles/Vol] 141 mmol/L Normal 136-145 [facility] Comment on above: Order Comment: No: D o not add to previous draw Performed By: #### 0 0071, 49927, 09726 ####[facility] [place] [address], [place] Urea nitrogen [Mass/Vol] 19 mg/dL Normal 7-[address] [facility] Comment on above: Order Comment: No: D o not add to previous draw Performed By: #### 0 0071, 46439, 81409 ####[facility] [place] [address], [place] CBC COMPLETE BLOOD COUNTon Erythrocyte distribution width (RBC) [Ratio] 14.6 % Normal 11.5-15.[address] [facility] Comment on above: Order Comment: No: D o not add to previous draw Performed By: #### 5 0608 ####[facility] [facility] Hematocrit (Bld) [Volume fraction] 32.9 % Low 39.0-50.[address] [facility] Comment on above: Order Comment: No: D o not add to previous draw Performed By: #### 5 0608 ####[facility] [place] [address], [facility] Hemoglobin (Bld) [Mass/Vol] 11.0 g/dL Low 13.0-17.[address] [facility] Comment on above: Order Comment: No: D o not add to previous draw Performed By: #### 5 0608 ####[address] MCH (RBC) [Entitic mass] 31.4 pg Normal 27.0-33.[address] [facility] Comment on above: Order Comment: No: D o not add to previous draw Performed By: #### 5 0608 ####[facility] MCHC (RBC) [Mass/Vol] 33.4 g/dL Normal 32.0-35.[address] [facility] Comment on above: Order Comment: No: D o not add to previous draw Performed By: #### 5 0608 ####[address] MCV (RBC) [Entitic vol] 94.0 fL Normal 82.0-98.[address] [facility] Comment on above: Order Comment: No: D o not add to previous draw Performed By: #### 5 0608 ####[facility] [place] [address], [facility] Nucleated RBC/100 WBC (Bld) [Ratio] 0 % Normal 0-[address] [facility] Comment on above: Order Comment: No: D o not add to previous draw Performed By: #### 5 0608 ####[place] [id number], [facility] PLAT CNT 214 10*3/uL Normal 150-400 The [facility] Comment on above: Order Comment: No: D o not add to previous draw Performed By: #### 5 0608 ####[facility] [place] [address], [facility] RBC (Bld) [#/Vol] 3.50 10*6/uL Low 4.20-5.70 The [facility] Comment on above: Order Comment: No: D o not add to previous draw Performed By: #### 5 0608 ####[facility] [place] [address], [facility] WBC (Bld) [#/Vol] 17.28 10*3/uL High 4.00-10.60 [facility] Comment on above: Order Comment: No: D o not add to previous draw Performed By: #### 5 0608 ####[facility] [address] MAGNESIUM BLOODon 08-30-2021 Magnesium [Mass/Vol] 1.8 mg/dL Low 1.9-2.[address] [facility] Comment on above: Order Comment: No: D o not add to previous draw Performed By: #### 0 0071, [id number], 60301 ####[facility] [place] [address], [facility] PHOSPHORUS BLOODon Phosphate [Mass/Vol] 3.4 mg/dL Normal 2.5-5.[address] [facility] Comment on above: Order Comment: No: D o not add to previous draw Performed By: #### 0 0071, 86803, 38557 ####[facility] [place] [address], [facility] POC GLUCOSE LABon 08-30-2021 Glucose [Mass/Vol] 212 mg/dL High 70-100 The [facility] Comment on above: Performed By: #### 8 5499 ####[facility] [place] [address], [place] Glucose [Mass/Vol] 146 mg/dL High 70-100 [facility] Comment on above: Performed By: #### 8 5499 ####[facility] [place] [address], [place] Glucose [Mass/Vol] 164 mg/dL High 70-100 [facility] Comment on above: Performed By: #### 8 5499 ####[facility] [place] [address], [place] Glucose [Mass/Vol] 145 mg/dL High 70-100 [facility] Comment on above: Performed By: #### 8 5499 ####[facility] [place] [address], [place] BASIC METABOLIC PANELon 12-2 Calcium [Mass/Vol] 8.2 mg/dL Low 8.6-10.3 The [facility] Comment on above: Order Comment: No: D o not add to previous draw Performed By: #### 4 1000, , 66662 ####[facility] [place] [address], [place] Chloride [Moles/Vol] 111 mmol/L High 98-[address] [facility] Comment on above: Order Comment: No: D o not add to previous draw Performed By: #### 4 1000, , 31777 ####[facility] [place] [address], [place] CO2 [Moles/Vol] 21 mmol/L Normal 21-31 The [facility] Comment on above: Order Comment: No: D o not add to previous draw Performed By: #### 4 1000, 88664, 72183 ####[facility] [place] [address], [place] Creatinine [Mass/Vol] 0.70 mg/dL Normal 0.70-1.30 [facility] Comment on above: Order Comment: No: D o not add to previous draw Performed By: #### 4 1000, 44093, 26359 ####[facility] [place] [address], [facility] GFR/1.73 sq M.predicted among blacks MDRD (S/P/Bld) [Vol rate/Area] mL/min/{1.73_m2} Normal >[address] [facility] Comment on above: Order Comment: No: D o not add to previous draw Result Comment: Calc ulation may not be valid for patients over 70 years Performed By: #### 4 1000, 39834, 07829 ####[facility] [place] [address], [facility] GFR/1.73 sq M.predicted among non-blacks MDRD (S/P/Bld) [Vol rate/Area] mL/min/{1.73_m2} Normal >[address] [facility] Comment on above: Order Comment: No: D o not add to previous draw Result Comment: Calc ulation may not be valid for patients over 70 years Performed By: #### 4 1000, 53811, 46272 ####[facility] [place] [address], [facility] Glucose [Mass/Vol] 148 mg/dL High 70-100 The [facility] Comment on above: Order Comment: No: D o not add to previous draw Performed By: #### 4 1000, 94512, 82071 ####[facility] [place] [address], [facility] Potassium [Moles/Vol] 3.6 mmol/L Normal 3.5-5.[address] [facility] Comment on above: Order Comment: No: D o not add to previous draw Performed By: #### 4 1000, 41997, 50156 ####[facility] Sodium [Moles/Vol] 140 mmol/L Normal 136-145 [facility] Comment on above: Order Comment: No: D o not add to previous draw Performed By: #### 4 1000, 14282, 45089 ####[facility] Urea nitrogen [Mass/Vol] 19 mg/dL Normal 7-[address] [facility] Comment on above: Order Comment: No: D o not add to previous draw Performed By: #### 4 1000, 34158, 74572 ####[facility] CBC COMPLETE BLOOD COUNTon 10-30-2020 Erythrocyte distribution width (RBC) [Ratio] 14.6 % Normal 11.5-15.[address] [facility] Comment on above: Order Comment: No: D o not add to previous draw Performed By: #### 5 0608 ####[facility] Hematocrit (Bld) [Volume fraction] 33.1 % Low 39.0-50.[address] [facility] Comment on above: Order Comment: No: D o not add to previous draw Performed By: #### 5 0608 ####[facility] Hemoglobin (Bld) [Mass/Vol] 10.7 g/dL Low 13.0-17.[address] [facility] Comment on above: Order Comment: No: D o not add to previous draw Performed By: #### 5 0608 ####[facility] [place] [address], [facility] MCH (RBC) [Entitic mass] 31.3 pg Normal 27.0-33.[address] [facility] Comment on above: Order Comment: No: D o not add to previous draw Performed By: #### 5 0608 ####[facility] [facility] [place] [address], [facility] MCHC (RBC) [Mass/Vol] 32.3 g/dL Normal 32.0-35.[address] [facility] Comment on above: Order Comment: No: D o not add to previous draw Performed By: #### 5 0608 ####[facility] [place] [address], [facility] MCV (RBC) [Entitic vol] 96.8 fL Normal 82.0-98.[address] [facility] Comment on above: Order Comment: No: D o not add to previous draw Performed By: #### 5 0608 ####[facility] [place] [address], [facility] Nucleated RBC/100 WBC (Bld) [Ratio] 0 % Normal 0-[address] [facility] Comment on above: Order Comment: No: D o not add to previous draw Performed By: #### 5 0608 ####[facility] [place] [address], [facility] PLAT CNT 167 10*3/uL Normal 150-400 [facility] Comment on above: Order Comment: No: D o not add to previous draw Performed By: #### 5 0608 ####[facility] [place] [address], [facility] RBC (Bld) [#/Vol] 3.42 10*6/uL Low 4.20-5.70 [facility] Comment on above: Order Comment: No: D o not add to previous draw Performed By: #### 5 0608 ####[facility] [place] [address], [facility] WBC (Bld) [#/Vol] 16.20 10*3/uL High 4.00-10.[address] [facility] Comment on above: Order Comment: No: D o not add to previous draw Performed By: #### 5 0608 ####[facility] [place] [address], [place] MAGNESIUM BLOODon 08-29-2021 Magnesium [Mass/Vol] 1.8 mg/dL Low 1.9-2.[address] [facility] Comment on above: Order Comment: No: D o not add to previous draw Performed By: #### 4 1000, 86148, 74982 ####[facility] [place] [address], [place] PHOSPHORUS BLOODon Phosphate [Mass/Vol] 3.1 mg/dL Normal 2.5-5.[address] [facility] Comment on above: Order Comment: No: D o not add to previous draw Performed By: #### 4 1000, 26418, 16407 ####[facility] [place] [address], [place] POC GLUCOSE LABon 08-29-2021 Glucose [Mass/Vol] 187 mg/dL High 70-100 [facility] Comment on above: Performed By: #### 8 5499 ####[facility] [place] [address], [place] Glucose [Mass/Vol] 145 mg/dL High 70-100 [facility] Comment on above: Performed By: #### 8 5499 ####[facility] [place] [address], [place] Glucose [Mass/Vol] 142 mg/dL High 70-100 [facility] Comment on above: Performed By: #### 8 5499 ####[facility] [place] [address], [place] Glucose [Mass/Vol] 166 mg/dL High 70-100 [facility] Comment on above: Performed By: #### 8 5499 ####[facility] [place] [address], [place] Glucose [Mass/Vol] 164 mg/dL High 70-100 The [facility] Comment on above: Performed By: #### 8 5499 ####[facility] [place] [address], [facility] BASIC METABOLIC PANELon 12-2 Calcium [Mass/Vol] 7.8 mg/dL Low 8.6-10.3 [facility] Comment on above: Order Comment: No: D o not add to previous draw Performed By: #### 1 69, 27727 ####[facility] [facility] [place] [address], [facility] Chloride [Moles/Vol] 111 mmol/L High 98-[address] [facility] Comment on above: Order Comment: No: D o not add to previous draw Performed By: #### 1 69, 25761 ####[facility] [place] [address], [facility] CO2 [Moles/Vol] 21 mmol/L Normal 21-31 The [facility] Comment on above: Order Comment: No: D o not add to previous draw Performed By: #### 1 69, 51243 ####[facility] [place] [address], [facility] Creatinine [Mass/Vol] 0.76 mg/dL Normal 0.70-1.[address] [facility] Comment on above: Order Comment: No: D o not add to previous draw Performed By: #### 1 69, 93661 ####[facility] [place] [address], [facility] GFR/1.73 sq M.predicted among blacks MDRD (S/P/Bld) [Vol rate/Area] mL/min/{1.73_m2} Normal >[address] [facility] Comment on above: Order Comment: No: D o not add to previous draw Result Comment: Calc ulation may not be valid for patients over 70 years Performed By: #### 1 69, 64962 ####[facility] [place] [address], [facility] GFR/1.73 sq M.predicted among non-blacks MDRD (S/P/Bld) [Vol rate/Area] mL/min/{1.73_m2} Normal >[address] [facility] Comment on above: Order Comment: No: D o not add to previous draw Result Comment: Calc ulation may not be valid for patients over 70 years Performed By: #### 1 69, 52952 ####[facility] [place] [address], [place] Glucose [Mass/Vol] 142 mg/dL High 70-100 [facility] Comment on above: Order Comment: No: D o not add to previous draw Performed By: #### 1 69, 59619 ####[facility] [facility] [place] [address], [facility] Potassium [Moles/Vol] 3.9 mmol/L Normal 3.5-5.[address] [facility] Comment on above: Order Comment: No: D o not add to previous draw Performed By: #### 1 69, 81070 ####[facility] [facility] [place] [address], [facility] Sodium [Moles/Vol] 140 mmol/L Normal 136-145 [facility] Comment on above: Order Comment: No: D o not add to previous draw Performed By: #### 1 69, 18634 ####[facility] [facility] [place] [address], [place] Urea nitrogen [Mass/Vol] 15 mg/dL Normal 7-[address] [facility] Comment on above: Order Comment: No: D o not add to previous draw Performed By: #### 1 69, 94964 ####[facility] [facility] [place] [address], [place] CBC COMPLETE BLOOD COUNTon 10-29-2020 Erythrocyte distribution width (RBC) [Ratio] 14.6 % Normal 11.5-15.[address] [facility] Comment on above: Order Comment: No: D o not add to previous draw Performed By: #### 5 0608 ####[facility] [address] Hematocrit (Bld) [Volume fraction] 31.8 % Low 39.0-50.[address] [facility] Comment on above: Order Comment: No: D o not add to previous draw Performed By: #### 5 0608 ####[facility] Hemoglobin (Bld) [Mass/Vol] 10.5 g/dL Low 13.0-17.[address] [facility] Comment on above: Order Comment: No: D o not add to previous draw Performed By: #### 5 0608 ####[facility] MCH (RBC) [Entitic mass] 31.6 pg Normal 27.0-33.[address] [facility] Comment on above: Order Comment: No: D o not add to previous draw Performed By: #### 5 0608 ####[facility] MCHC (RBC) [Mass/Vol] 33.0 g/dL Normal 32.0-35.[address] [facility] Comment on above: Order Comment: No: D o not add to previous draw Performed By: #### 5 0608 ####[facility] MCV (RBC) [Entitic vol] 95.8 fL Normal 82.0-98.[address] [facility] Comment on above: Order Comment: No: D o not add to previous draw Performed By: #### 5 0608 ####[facility] [place] [address], [facility] Nucleated RBC/100 WBC (Bld) [Ratio] 0 % Normal 0-[address] [facility] Comment on above: Order Comment: No: D o not add to previous draw Performed By: #### 5 0608 ####[facility] [place] [address], [facility] PLAT CNT 188 10*3/uL Normal 150-400 [facility] Comment on above: Order Comment: No: D o not add to previous draw Performed By: #### 5 0608 ####[facility] [place] [address], [facility] RBC (Bld) [#/Vol] 3.32 10*6/uL Low 4.20-5.70 [facility] Comment on above: Order Comment: No: D o not add to previous draw Performed By: #### 5 0608 ####[facility] [place] [address], [facility] WBC (Bld) [#/Vol] 14.06 10*3/uL High 4.00-10.60 [facility] Comment on above: Order Comment: No: D o not add to previous draw Performed By: #### 5 0608 ####[address] [address] [place] [address], [facility] MAGNESIUM BLOODon 08-28-2021 Magnesium [Mass/Vol] 1.9 mg/dL Normal 1.9-2.7 [facility] Comment on above: Order Comment: No: D o not add to previous draw Performed By: #### 1 0070, 76448 ####[facility] [place] [address], [facility] POC GLUCOSE LABon 08-28-2021 Glucose [Mass/Vol] 139 mg/dL High 70-100 [facility] Comment on above: Performed By: #### 8 5499 ####[facility] [place] [address], [facility] BASIC METABOLIC PANELon 12-2 Calcium [Mass/Vol] 7.6 mg/dL Low 8.6-10.3 [facility] Comment on above: Order Comment: No: D o not add to previous draw Performed By: #### 1 69, 06722 ####[facility] [place] [address], [facility] Chloride [Moles/Vol] 105 mmol/L Normal 98-[address] [facility] Comment on above: Order Comment: No: D o not add to previous draw Performed By: #### 1 69, 29514 ####[facility] [place] [address], [facility] CO2 [Moles/Vol] 23 mmol/L Normal 21-31 [facility] Comment on above: Order Comment: No: D o not add to previous draw Performed By: #### 1 69, 72011 ####[facility] [facility] [address], [facility] Creatinine [Mass/Vol] 0.76 mg/dL Normal 0.70-1.[address] [facility] Comment on above: Order Comment: No: D o not add to previous draw Performed By: #### 1 69, 92384 ####[facility] [place] [address], [facility] GFR/1.73 sq M.predicted among blacks MDRD (S/P/Bld) [Vol rate/Area] mL/min/{1.73_m2} Normal >[address] [facility] Comment on above: Order Comment: No: D o not add to previous draw Result Comment: Calc ulation may not be valid for patients over 70 years Performed By: #### 1 69, 79559 ####[facility] [place] [address], [facility] GFR/1.73 sq M.predicted among non-blacks MDRD (S/P/Bld) [Vol rate/Area] mL/min/{1.73_m2} Normal >[address] [facility] Comment on above: Order Comment: No: D o not add to previous draw Result Comment: Calc ulation may not be valid for patients over 70 years Performed By: #### 1 69, 84185 ####[facility] [place] [address], [facility] Glucose [Mass/Vol] 109 mg/dL High 70-100 [facility] Comment on above: Order Comment: No: D o not add to previous draw Performed By: #### 1 69, 01120 ####[facility] [facility] [address], [facility] Potassium [Moles/Vol] 3.3 mmol/L Low 3.5-5.[address] [facility] Comment on above: Order Comment: No: D o not add to previous draw Performed By: #### 1 69, 91565 ####[facility] [place] [address], [facility] Sodium [Moles/Vol] 137 mmol/L Normal 136-145 [facility] Comment on above: Order Comment: No: D o not add to previous draw Performed By: #### 1 69, 77988 ####[facility] [facility] [address], [facility] Urea nitrogen [Mass/Vol] 11 mg/dL Normal 7-[address] [facility] Comment on above: Order Comment: No: D o not add to previous draw Performed By: #### 1 69, 98765 ####[facility] [place] [address], [facility] CBC COMPLETE BLOOD COUNTon 10-28-2020 Erythrocyte distribution width (RBC) [Ratio] 14.5 % Normal 11.5-15.[address] [facility] Comment on above: Order Comment: No: D o not add to previous draw Performed By: #### 5 0608 ####[facility] Hematocrit (Bld) [Volume fraction] 30.9 % Low 39.0-50.[address] [facility] Comment on above: Order Comment: No: D o not add to previous draw Performed By: #### 5 0608 ####[facility] Hemoglobin (Bld) [Mass/Vol] 10.4 g/dL Low 13.0-17.[address] [facility] Comment on above: Order Comment: No: D o not add to previous draw Performed By: #### 5 0608 ####[address] MCH (RBC) [Entitic mass] 31.6 pg Normal 27.0-33.[address] [facility] Comment on above: Order Comment: No: D o not add to previous draw Performed By: #### 5 0608 ####[facility] [place] [address] MCHC (RBC) [Mass/Vol] 33.7 g/dL Normal 32.0-35.[address] [facility] Comment on above: Order Comment: No: D o not add to previous draw Performed By: #### 5 0608 ####[facility] [place] [address] MCV (RBC) [Entitic vol] 93.9 fL Normal 82.0-98.[address] [facility] Comment on above: Order Comment: No: D o not add to previous draw Performed By: #### 5 0608 ####[address] Nucleated RBC/100 WBC (Bld) [Ratio] 0 % Normal 0-[address] [facility] Comment on above: Order Comment: No: D o not add to previous draw Performed By: #### 5 0608 ####[facility] [facility] [place] [address], [facility] PLAT CNT 170 10*3/uL Normal 150-400 [facility] Comment on above: Order Comment: No: D o not add to previous draw Performed By: #### 5 0608 ####[facility] [place] [address], [facility] RBC (Bld) [#/Vol] 3.29 10*6/uL Low 4.20-5.70 [facility] Comment on above: Order Comment: No: D o not add to previous draw Performed By: #### 5 0608 ####[facility] [place] [address], [facility] WBC (Bld) [#/Vol] 14.05 10*3/uL High 4.00-10.60 [facility] Comment on above: Order Comment: No: D o not add to previous draw Performed By: #### 5 0608 ####[facility] [place] [address], [facility] MAGNESIUM BLOODon 08-27-2021 Magnesium [Mass/Vol] 1.9 mg/dL Normal 1.9-2.7 [facility] Comment on above: Order Comment: No: D o not add to previous draw Performed By: #### 1 0070, 73946 ####[facility] POC GLUCOSE LABon 08-27-2021 Glucose [Mass/Vol] 179 mg/dL High 70-100 [facility] Comment on above: Performed By: #### 8 5499 ####[facility] [place] [address], [facility] Glucose [Mass/Vol] 116 mg/dL High 70-100 [facility] Comment on above: Performed By: #### 8 5499 ####[facility] [place] [address], [place] Glucose [Mass/Vol] 244 mg/dL High 70-100 [facility] Comment on above: Performed By: #### 8 5499 ####[facility] [place] [address], [place] Glucose [Mass/Vol] 135 mg/dL High 70-100 [facility] Comment on above: Performed By: #### 8 5499 ####[facility] [place] [address], [place] BASIC METABOLIC PANELon 12-2 Calcium [Mass/Vol] 7.9 mg/dL Low 8.6-10.3 [facility] Comment on above: Order Comment: No: D o not add to previous draw Performed By: #### 0 0071, 93321 ####[facility] [place] [address], [place] Chloride [Moles/Vol] 102 mmol/L Normal 98-[address] [facility] Comment on above: Order Comment: No: D o not add to previous draw Performed By: #### 0 0071, 72950 ####[facility] [place] [address], [place] CO2 [Moles/Vol] 21 mmol/L Normal 21-31 The [facility] Comment on above: Order Comment: No: D o not add to previous draw Performed By: #### 0 0071, 31387 ####[facility] [place] [address], [place] Creatinine [Mass/Vol] 0.82 mg/dL Normal 0.70-1.[address] [facility] Comment on above: Order Comment: No: D o not add to previous draw Performed By: #### 0 0071, 33304 ####[facility] [place] [address], [place] GFR/1.73 sq M.predicted among blacks MDRD (S/P/Bld) [Vol rate/Area] mL/min/{1.73_m2} Normal >[address] [facility] Comment on above: Order Comment: No: D o not add to previous draw Result Comment: Calc ulation may not be valid for patients over 70 years Performed By: #### 0 0071, 73242 ####[facility] [place] [address], [facility] GFR/1.73 sq M.predicted among non-blacks MDRD (S/P/Bld) [Vol rate/Area] mL/min/{1.73_m2} Normal >[address] [facility] Comment on above: Order Comment: No: D o not add to previous draw Result Comment: Calc ulation may not be valid for patients over 70 years Performed By: #### 0 0071, 19414 ####[facility] [place] [address], [facility] Glucose [Mass/Vol] 130 mg/dL High 70-100 The [facility] Comment on above: Order Comment: No: D o not add to previous draw Performed By: #### 0 0071, 81301 ####[facility] [place] [address], [facility] Potassium [Moles/Vol] 3.8 mmol/L Normal 3.5-5.[address] [facility] Comment on above: Order Comment: No: D o not add to previous draw Performed By: #### 0 0071, 72860 ####[facility] [place] [address], [place] Sodium [Moles/Vol] 133 mmol/L Low 136-145 [facility] Comment on above: Order Comment: No: D o not add to previous draw Performed By: #### 0 0071, 37299 ####[facility] [place] [address], [place] Urea nitrogen [Mass/Vol] 10 mg/dL Normal 7-[address] [facility] Comment on above: Order Comment: No: D o not add to previous draw Performed By: #### 0 0071, 98155 ####[facility] CBC COMPLETE BLOOD COUNTon 10-27-2020 Erythrocyte distribution width (RBC) [Ratio] 14.6 % Normal 11.5-15.[address] [facility] Comment on above: Order Comment: No: D o not add to previous draw Performed By: #### 5 0608 ####[facility] [address] Hematocrit (Bld) [Volume fraction] 33.4 % Low 39.0-50.[address] [facility] Comment on above: Order Comment: No: D o not add to previous draw Performed By: #### 5 0608 ####[facility] [address] Hemoglobin (Bld) [Mass/Vol] 11.2 g/dL Low 13.0-17.[address] [facility] Comment on above: Order Comment: No: D o not add to previous draw Performed By: #### 5 0608 ####[facility] [place] [address], [facility] MCH (RBC) [Entitic mass] 31.6 pg Normal 27.0-33.[address] [facility] Comment on above: Order Comment: No: D o not add to previous draw Performed By: #### 5 0608 ####[facility] [place] [address], [facility] MCHC (RBC) [Mass/Vol] 33.5 g/dL Normal 32.0-35.[address] [facility] Comment on above: Order Comment: No: D o not add to previous draw Performed By: #### 5 0608 ####[facility] MCV (RBC) [Entitic vol] 94.4 fL Normal 82.0-98.[address] [facility] Comment on above: Order Comment: No: D o not add to previous draw Performed By: #### 5 0608 ####[facility] Nucleated RBC/100 WBC (Bld) [Ratio] 0 % Normal 0-[address] [facility] Comment on above: Order Comment: No: D o not add to previous draw Performed By: #### 5 0608 ####[facility] [place] [address], [facility] PLAT CNT 179 10*3/uL Normal 150-400 The [facility] Comment on above: Order Comment: No: D o not add to previous draw Performed By: #### 5 0608 ####[facility] RBC (Bld) [#/Vol] 3.54 10*6/uL Low 4.20-5.70 [facility] Comment on above: Order Comment: No: D o not add to previous draw Performed By: #### 5 0608 ####[facility] [place] [address], [facility] WBC (Bld) [#/Vol] 15.72 10*3/uL High 4.00-10.[address] [facility] Comment on above: Order Comment: No: D o not add to previous draw Performed By: #### 5 0608 ####[facility] [place] [address], [facility] MAGNESIUM BLOODon 08-26-2021 Magnesium [Mass/Vol] 1.8 mg/dL Low 1.9-2.[address] [facility] Comment on above: Order Comment: No: D o not add to previous draw Performed By: #### 0 0071, 44017 ####[facility] [place] [address], [place] POC GLUCOSE LABon 08-26-2021 Glucose [Mass/Vol] 203 mg/dL High 70-100 [facility] Comment on above: Performed By: #### 8 5499 ####[facility] [place] [address], [place] Glucose [Mass/Vol] 123 mg/dL High 70-100 [facility] Comment on above: Performed By: #### 8 5499 ####[facility] [place] [address], [place] Glucose [Mass/Vol] 171 mg/dL High 70-100 [facility] Comment on above: Performed By: #### 8 5499 ####[facility] [place] [address], [place] Glucose [Mass/Vol] 138 mg/dL High 70-100 [facility] Comment on above: Performed By: #### 8 5499 ####[facility] [place] [address], [place] BASIC METABOLIC PANELon 08-03 Calcium [Mass/Vol] 7.7 mg/dL Low 8.6-10.3 [facility] Comment on above: Order Comment: No: D o not add to previous draw Performed By: #### 4 999, 66997, 40439 ####[facility] [place] [address], [place] Chloride [Moles/Vol] 101 mmol/L Normal 98-[address] [facility] Comment on above: Order Comment: No: D o not add to previous draw Performed By: #### 4 999, 04376, 15603 ####[facility] [place] [address], [place] CO2 [Moles/Vol] 24 mmol/L Normal 21-[address] [facility] Comment on above: Order Comment: No: D o not add to previous draw Performed By: #### 4 1000, 63851, 30206 ####[facility] [place] [address], [place] Creatinine [Mass/Vol] 0.88 mg/dL Normal 0.70-1.[address] [facility] Comment on above: Order Comment: No: D o not add to previous draw Performed By: #### 4 1000, 06503, 39585 ####[facility] [place] [address], [place] GFR/1.73 sq M.predicted among blacks MDRD (S/P/Bld) [Vol rate/Area] mL/min/{1.73_m2} Normal >60 [facility] Comment on above: Order Comment: No: D o not add to previous draw Result Comment: Calc ulation may not be valid for patients over 70 years Performed By: #### 4 999, 12793, 72751 ####[facility] [place] [address], [place] GFR/1.73 sq M.predicted among non-blacks MDRD (S/P/Bld) [Vol rate/Area] mL/min/{1.73_m2} Normal >[address] [facility] Comment on above: Order Comment: No: D o not add to previous draw Result Comment: Calc ulation may not be valid for patients over 70 years Performed By: #### 4 999, 42622, 30554 ####[facility] [place] [address], [place] Glucose [Mass/Vol] 141 mg/dL High 70-100 [facility] Comment on above: Order Comment: No: D o not add to previous draw Performed By: #### 4 1000, 94372, 69476 ####[facility] [place] [address], [place] Potassium [Moles/Vol] 3.9 mmol/L Normal 3.5-5.[address] [facility] Comment on above: Order Comment: No: D o not add to previous draw Performed By: #### 4 1000, 02213, 96932 ####[facility] [place] [address], [facility] Sodium [Moles/Vol] 131 mmol/L Low 136-145 [facility] Comment on above: Order Comment: No: D o not add to previous draw Performed By: #### 4 1000, 80297, 69031 ####[facility] [place] [address], [facility] Urea nitrogen [Mass/Vol] 11 mg/dL Normal 7-[address] [facility] Comment on above: Order Comment: No: D o not add to previous draw Performed By: #### 4 1000, 96673, 14796 ####[facility] [place] [address], [facility] CBC COMPLETE BLOOD COUNTon 10-26-2020 Erythrocyte distribution width (RBC) [Ratio] 14.6 % Normal 11.5-15.[address] [facility] Comment on above: Order Comment: No: D o not add to previous draw Performed By: #### 5 0608 ####[facility] [place] [address], [facility] Hematocrit (Bld) [Volume fraction] 31.9 % Low 39.0-50.[address] [facility] Comment on above: Order Comment: No: D o not add to previous draw Performed By: #### 5 0608 ####[facility] [place] [address], [facility] Hemoglobin (Bld) [Mass/Vol] 10.8 g/dL Low 13.0-17.[address] [facility] Comment on above: Order Comment: No: D o not add to previous draw Performed By: #### 5 0608 ####[facility] MCH (RBC) [Entitic mass] 32.0 pg Normal 27.0-33.[address] [facility] Comment on above: Order Comment: No: D o not add to previous draw Performed By: #### 5 0608 ####[facility] [place] [address], [facility] MCHC (RBC) [Mass/Vol] 33.9 g/dL Normal 32.0-35.[address] [facility] Comment on above: Order Comment: No: D o not add to previous draw Performed By: #### 5 0608 ####[address] MCV (RBC) [Entitic vol] 94.4 fL Normal 82.0-98.[address] [facility] Comment on above: Order Comment: No: D o not add to previous draw Performed By: #### 5 0608 ####[place] [address] [address] Nucleated RBC/100 WBC (Bld) [Ratio] 0 % Normal 0-[address] [facility] Comment on above: Order Comment: No: D o not add to previous draw Performed By: #### 5 0608 ####[place] [address] [place] [address], [facility] PLAT CNT 163 10*3/uL Normal 150-400 [facility] Comment on above: Order Comment: No: D o not add to previous draw Performed By: #### 5 0608 ####[facility] [place] [address].[place] [address], [facility] RBC (Bld) [#/Vol] 3.38 10*6/uL Low 4.20-5.70 [facility] Comment on above: Order Comment: No: D o not add to previous draw Performed By: #### 5 0608 ####[facility] [place] [address], [place] WBC (Bld) [#/Vol] 13.02 10*3/uL High 4.00-10.[address] [facility] Comment on above: Order Comment: No: D o not add to previous draw Performed By: #### 5 0608 ####[facility] [place] [address], [place] MAGNESIUM BLOODon 08-25-2021 Magnesium [Mass/Vol] 1.7 mg/dL Low 1.9-2.[address] [facility] Comment on above: Order Comment: No: D o not add to previous draw Performed By: #### 4 1000, 85047, 69064 ####[facility] [place] [address], [place] PHOSPHORUS BLOODon Phosphate [Mass/Vol] 3.8 mg/dL Normal 2.5-5.[address] [facility] Comment on above: Order Comment: No: D o not add to previous draw Performed By: #### 4 1000, 90992, 51915 ####[facility] [place] [address], [place] POC GLUCOSE LABon 08-25-2021 Glucose [Mass/Vol] 133 mg/dL High 70-100 [facility] Comment on above: Performed By: #### 8 5499 ####[facility] [place] [address], [place] Glucose [Mass/Vol] 135 mg/dL High 70-100 [facility] Comment on above: Performed By: #### 8 5499 ####[facility] [place] [address], [place] Glucose [Mass/Vol] 135 mg/dL High 70-100 [facility] Comment on above: Performed By: #### 8 5499 ####[facility] [place] [address], [place] Glucose [Mass/Vol] 155 mg/dL High 70-100 [facility] Comment on above: Performed By: #### 8 5499 ####[facility] [place] [address], [facility] BASIC METABOLIC PANELon 12-2 Calcium [Mass/Vol] 7.9 mg/dL Low 8.6-10.3 [facility] Comment on above: Order Comment: No: D o not add to previous drawMissed draw at 420amPT refused PATTY [place] notified Performed By: #### 1 0070, 86592, 19040 ####[facility] [place] [address], [facility] Chloride [Moles/Vol] 100 mmol/L Normal 98-[address] [facility] Comment on above: Order Comment: No: D o not add to previous drawMissed draw at 420amPT refused PATTY Cameron notified Performed By: #### 1 0, 12286, 48614 ####[facility] [place] [address], [facility] CO2 [Moles/Vol] 26 mmol/L Normal 21-31 The [facility] Comment on above: Order Comment: No: D o not add to previous drawMissed draw at 420amPT refused PATTY Cameron notified Performed By: #### 1 0, 14502, 04893 ####[facility] .[place] [id number], [facility] Creatinine [Mass/Vol] 0.86 mg/dL Normal 0.70-1.[address] [facility] Comment on above: Order Comment: No: D o not add to previous drawMissed draw at 420amPT refused PATTY Cameron notified Performed By: #### 1 0070, 93335, 08211 ####[facility] [place] [address], [facility] GFR/1.73 sq M.predicted among blacks MDRD (S/P/Bld) [Vol rate/Area] mL/min/{1.73_m2} Normal >[address] [facility] Comment on above: Order Comment: No: D o not add to previous drawMissed draw at 420amPT refused PATTY Cameron notified Result Comment: Calc ulation may not be valid for patients over 70 years Performed By: #### 1 0070, 68970, 38961 ####[facility] [place] [address], [facility] GFR/1.73 sq M.predicted among non-blacks MDRD (S/P/Bld) [Vol rate/Area] mL/min/{1.73_m2} Normal >[address] [facility] Comment on above: Order Comment: No: D o not add to previous drawMissed draw at 420amPT refused PATTY Cameron notified Result Comment: Calc ulation may not be valid for patients over 70 years Performed By: #### 1 0070, 81432, 57545 ####[facility] [place] [address], [facility] Glucose [Mass/Vol] 127 mg/dL High 70-100 [facility] Comment on above: Order Comment: No: D o not add to previous drawMissed draw at 420amPT refused PATTY Cameron notified Performed By: #### 1 0, 65162, 18446 ####[facility] [place] [address], [facility] Potassium [Moles/Vol] 4.3 mmol/L Normal 3.5-5.[address] [facility] Comment on above: Order Comment: No: D o not add to previous drawMissed draw at 420amPT refused PATTY Cameron notified Performed By: #### 1 0070, 13959, 05963 ####[facility] [place] [address], [facility] Sodium [Moles/Vol] 132 mmol/L Low 136-145 [facility] Comment on above: Order Comment: No: D o not add to previous drawMissed draw at 420amPT refused PATTY Cameron notified Performed By: #### 1 0070, 79270, 81525 ####[facility] Urea nitrogen [Mass/Vol] 10 mg/dL Normal 7-[address] [facility] Comment on above: Order Comment: No: D o not add to previous drawMissed draw at 420amPT refused PATTY Cameron notified Performed By: #### 1 0070, 06534, 86659 ####[facility] CBC W/DIFFon 08-24-2021 ABS IMM GRANS 0.1 10*3/uL Normal 0.0-0.2 The [facility] Comment on above: Order Comment: No: D o not add to previous drawMissed draw at 420amPT refused PATTY Cameron notified Performed By: #### 5 0103 ####[facility] ABS NEUTROPHILS 4.5 10*3/uL Normal 1.6-7.6 The [facility] Comment on above: Order Comment: No: D o not add to previous drawMissed draw at 420amPT refused PATTY Cameron notified Performed By: #### 5 0103 ####[facility] Basophils (Bld) [#/Vol] 0.0 10*3/uL Normal 0.0-0.[address] [facility] Comment on above: Order Comment: No: D o not add to previous drawMissed draw at 420amPT refused PATTY Cameron notified Performed By: #### 5 0103 ####[facility] Basophils/100 WBC (Bld) 0.1 % Normal 0.0-1.[address] [facility] Comment on above: Order Comment: No: D o not add to previous drawMissed draw at 420amPT refused PATTY Cameron notified Performed By: #### 5 0103 ####[facility] [place] [address], [facility] Eosinophils (Bld) [#/Vol] 0.0 10*3/uL Normal 0.0-0.[address] [facility] Comment on above: Order Comment: No: D o not add to previous drawMissed draw at 420amPT refused PATTY Cameron notified Performed By: #### 5 0103 ####[facility] Eosinophils/100 WBC (Bld) 0.1 % Normal 0.0-6.[address] [facility] Comment on above: Order Comment: No: D o not add to previous drawMissed draw at 420amPT refused PATTY Cameron notified Performed By: #### 5 3 ####[facility] Erythrocyte distribution width (RBC) [Ratio] 14.7 % Normal 11.5-15.[address] [facility] Comment on above: Order Comment: No: D o not add to previous drawMissed draw at 420amPT refused PATTY Cameron notified Performed By: #### 5 3 ####[facility] Hematocrit (Bld) [Volume fraction] 35.4 % Low 39.0-50.[address] [facility] Comment on above: Order Comment: No: D o not add to previous drawMissed draw at 420amPT refused PATTY Cameron notified Performed By: #### 5 0103 ####[facility] Hemoglobin (Bld) [Mass/Vol] 11.6 g/dL Low 13.0-17.[address] [facility] Comment on above: Order Comment: No: D o not add to previous drawMissed draw at 420amPT refused PATTY Cameron notified Performed By: #### 5 0103 ####[facility] [place] [address], [facility] IMMATURE GRANS 0.3 % Normal 0.0-1.0 The [facility] Comment on above: Order Comment: No: D o not add to previous drawMissed draw at 420amPT refused PATTY Cameron notified Performed By: #### 5 0103 ####[facility] [place] [address], [facility] Lymphocytes (Bld) [#/Vol] 10.1 10*3/uL High 1.2-4.[address] [facility] Comment on above: Order Comment: No: D o not add to previous drawMissed draw at 420amPT refused PATTY Cameron notified Performed By: #### 5 0103 ####[address] Lymphocytes/100 WBC (Bld) 67.1 % High 20.0-45.[address] [facility] Comment on above: Order Comment: No: D o not add to previous drawMissed draw at 420amPT refused PATTY Cameron notified Performed By: #### 5 0103 ####[address] [place] [address], [facility] MCH (RBC) [Entitic mass] 32.0 pg Normal 27.0-33.[address] [facility] Comment on above: Order Comment: No: D o not add to previous drawMissed draw at 420amPT refused PATTY Cameron notified Performed By: #### 5 0103 ####[facility] [place] [address], [facility] MCHC (RBC) [Mass/Vol] 32.8 g/dL Normal 32.0-35.[address] [facility] Comment on above: Order Comment: No: D o not add to previous drawMissed draw at 420amPT refused PATTY Cameron notified Performed By: #### 5 3 ####[facility] [place] [address].[place] [address], [facility] MCV (RBC) [Entitic vol] 97.5 fL Normal 82.0-98.[address] [facility] Comment on above: Order Comment: No: D o not add to previous drawMissed draw at 420amPT refused PATTY Cameron notified Performed By: #### 5 0103 ####[facility] [place] [address], [facility] Monocytes (Bld) [#/Vol] 0.4 10*3/uL Normal 0.1-1.[address] [facility] Comment on above: Order Comment: No: D o not add to previous drawMissed draw at 420amPT refused PATTY Cameron notified Performed By: #### 5 0103 ####[address] MONOS 2.6 % Low 5.0-12.[address] [facility] Comment on above: Order Comment: No: D o not add to previous drawMissed draw at 420amPT refused PATTY Cameron notified Performed By: #### 5 0103 ####[place] [address] [address] Neutrophils/100 WBC (Bld) 29.8 % Low 40.0-72.[address] [facility] Comment on above: Order Comment: No: D o not add to previous drawMissed draw at 420amPT refused PATTY Cameron notified Performed By: #### 5 0103 ####[facility] Nucleated RBC/100 WBC (Bld) [Ratio] 0 % Normal 0-[address] [facility] Comment on above: Order Comment: No: D o not add to previous drawMissed draw at 420amPT refused PATTY Cameron notified Performed By: #### 5 0103 ####[facility] [place] [address], [facility] PLAT CNT 175 10*3/uL Normal 150-400 [facility] Comment on above: Order Comment: No: D o not add to previous drawMissed draw at 420amPT refused PATTY Cameron notified Performed By: #### 5 0103 ####[facility] [place] [address], [facility] RBC (Bld) [#/Vol] 3.63 10*6/uL Low 4.20-5.70 [facility] Comment on above: Order Comment: No: D o not add to previous drawMissed draw at 420amPT refused PATTY Cameron notified Performed By: #### 5 0103 ####[facility] [place] [address], [facility] SMUDGE CELLS MANY Normal The [facility] Comment on above: Order Comment: No: D o not add to previous drawMissed draw at 420amPT refused PATTY Cameron notified Performed By: #### 5 0103 ####[facility] [place] [address], [facility] WBC (Bld) [#/Vol] 15.09 10*3/uL High 4.00-10.60 [facility] Comment on above: Order Comment: No: D o not add to previous drawMissed draw at 420amPT refused PATTY Cameron notified Performed By: #### 5 0103 ####[facility] [place] [address], [facility] MAGNESIUM BLOODon 08-24-2021 Magnesium [Mass/Vol] 1.8 mg/dL Low 1.9-2.[address] [facility] Comment on above: Order Comment: No: D o not add to previous drawMissed draw at 420amPT refused PATTY Cameron notified Performed By: #### 1 0070, 63501, 19355 ####[facility] [place] [address], [facility] PHOSPHORUS BLOODon Phosphate [Mass/Vol] 3.8 mg/dL Normal 2.5-5.[address] [facility] Comment on above: Order Comment: No: D o not add to previous drawMissed draw at 420amPT refused PATTY Cameron notified Performed By: #### 1 0070, 30669, 28063 ####[facility] [place] [address], [facility] POC GLUCOSE LABon 08-24-2021 Glucose [Mass/Vol] 208 mg/dL High 70-100 The [facility] Comment on above: Performed By: #### 8 5499 ####[facility] [facility] [place] [address], [place] Glucose [Mass/Vol] 146 mg/dL High 70-100 [facility] Comment on above: Performed By: #### 8 5499 ####[facility] [place] [address], [place] Glucose [Mass/Vol] 162 mg/dL High 70-100 [facility] Comment on above: Performed By: #### 8 5499 ####[facility] [place] [address], [place] Glucose [Mass/Vol] 148 mg/dL High 70-100 [facility] Comment on above: Performed By: #### 8 5499 ####[facility] [place] [address], [facility] POC SARS COV2 ANTIGEN NEGATI VEon 08-24-2021 POC SARS COV2 ANTIGEN NEG Negative Normal NEGATIVE The [facility] Comment on above: Result Comment: Nega tive results from patients with symptom onset beyond seven days,should be treated presumptive and confirmation with a molecular assay,if necessary, for patient management, may be performed. Negative resultsdo not rule out SARS-CoV-2 infection and should not be used as the solebasis for treatment or patient management decisions, including infectioncontrol decisions. Negative results should be considered in the contextof a patient?s recent exposures, history and the presence of clinicalsigns and symptoms consistent with COVID-19.The My[employer] COVID-19 Ag Card is a lateral flow immunoassay intended forthe qualitative detection of nucleocapsid protein antigen svuhRTNJ-SpV-2 in direct nasal swabs from individuals within the first sevendays of symptom onset. Testing is limited to laboratories certifiedunder the Clinical Laboratory Improvement Amendments of 1988 (CLIA), [place]. ???263a, that meet the requirements to perform moderate, high orwaived complexity tests. This test is authorized for use at the Point ofCare (POC), i.e., in patient care settings operating under a CLIACertificate of Waiver, Certificate of Compliance, or Certificate ofAccreditation. Performed By: #### 3 1977 ####[address] BASIC METABOLIC PANELon 12-2 Calcium [Mass/Vol] 7.8 mg/dL Low 8.6-10.3 [facility] Comment on above: Order Comment: No: D o not add to previous draw Performed By: #### 1 0, 70470 ####[place] [address] Chloride [Moles/Vol] 104 mmol/L Normal 98-[address] [facility] Comment on above: Order Comment: No: D o not add to previous draw Performed By: #### 1 0, 81011 ####[place] [address] [place] [address], [facility] CO2 [Moles/Vol] 24 mmol/L Normal 21-31 The [facility] Comment on above: Order Comment: No: D o not add to previous draw Performed By: #### 1 0, 62821 ####[place] [address] Creatinine [Mass/Vol] 0.91 mg/dL Normal 0.70-1.[address] [facility] Comment on above: Order Comment: No: D o not add to previous draw Performed By: #### 1 69, 26976 ####[facility] [place] [address], [place] GFR/1.73 sq M.predicted among blacks MDRD (S/P/Bld) [Vol rate/Area] mL/min/{1.73_m2} Normal >[address] [facility] Comment on above: Order Comment: No: D o not add to previous draw Result Comment: Calc ulation may not be valid for patients over 70 years Performed By: #### 1 69, 98541 ####[facility] [place] [address], [place] GFR/1.73 sq M.predicted among non-blacks MDRD (S/P/Bld) [Vol rate/Area] mL/min/{1.73_m2} Normal >[address] [facility] Comment on above: Order Comment: No: D o not add to previous draw Result Comment: Calc ulation may not be valid for patients over 70 years Performed By: #### 1 69, 74493 ####[facility] [place] [address], [place] Glucose [Mass/Vol] 162 mg/dL High 70-100 [facility] Comment on above: Order Comment: No: D o not add to previous draw Performed By: #### 1 69, 07869 ####[facility] [facility] [place] [address], [place] Potassium [Moles/Vol] 3.9 mmol/L Normal 3.5-5.[address] [facility] Comment on above: Order Comment: No: D o not add to previous draw Performed By: #### 1 69, 10827 ####[facility] [place] [address], [place] Sodium [Moles/Vol] 134 mmol/L Low 136-145 [facility] Comment on above: Order Comment: No: D o not add to previous draw Performed By: #### 1 0070, 51239 ####[facility] [address] Urea nitrogen [Mass/Vol] 7 mg/dL Normal 7-[address] [facility] Comment on above: Order Comment: No: D o not add to previous draw Performed By: #### 1 0, 59582 ####[facility] CBC COMPLETE BLOOD COUNTon 10-24-2020 Erythrocyte distribution width (RBC) [Ratio] 14.7 % Normal 11.5-15.[address] [facility] Comment on above: Order Comment: No: D o not add to previous draw Performed By: #### 5 0608 ####[facility] Hematocrit (Bld) [Volume fraction] 32.6 % Low 39.0-50.[address] [facility] Comment on above: Order Comment: No: D o not add to previous draw Performed By: #### 5 0608 ####[facility] [address] Hemoglobin (Bld) [Mass/Vol] 10.8 g/dL Low 13.0-17.[address] [facility] Comment on above: Order Comment: No: D o not add to previous draw Performed By: #### 5 0608 ####[facility] [address] MCH (RBC) [Entitic mass] 31.4 pg Normal 27.0-33.[address] [facility] Comment on above: Order Comment: No: D o not add to previous draw Performed By: #### 5 0608 ####[facility] [place] [address].[address] MCHC (RBC) [Mass/Vol] 33.1 g/dL Normal 32.0-35.[address] [facility] Comment on above: Order Comment: No: D o not add to previous draw Performed By: #### 5 0608 ####[facility] [place] [address], [facility] MCV (RBC) [Entitic vol] 94.8 fL Normal 82.0-98.[address] [facility] Comment on above: Order Comment: No: D o not add to previous draw Performed By: #### 5 0608 ####[facility] [facility] [place] [address], [facility] Nucleated RBC/100 WBC (Bld) [Ratio] 0 % Normal 0-[address] [facility] Comment on above: Order Comment: No: D o not add to previous draw Performed By: #### 5 0608 ####[facility] [place] [address], [facility] PLAT CNT 147 10*3/uL Low 150-400 The [facility] Comment on above: Order Comment: No: D o not add to previous draw Performed By: #### 5 0608 ####[facility] [place] [address], [facility] RBC (Bld) [#/Vol] 3.44 10*6/uL Low 4.20-5.70 The [facility] Comment on above: Order Comment: No: D o not add to previous draw Performed By: #### 5 0608 ####[facility] [place] [address], [facility] WBC (Bld) [#/Vol] 13.68 10*3/uL High 4.00-10.[address] [facility] Comment on above: Order Comment: No: D o not add to previous draw Performed By: #### 5 0608 ####[facility] [place] [address], [facility] MAGNESIUM BLOODon 08-23-2021 Magnesium [Mass/Vol] 1.6 mg/dL Low 1.9-2.[address] [facility] Comment on above: Order Comment: No: D o not add to previous draw Performed By: #### 1 0070, 70968 ####[facility] [place] [address], [facility] POC GLUCOSE LABon 08-23-2021 Glucose [Mass/Vol] 156 mg/dL High 70-100 [facility] Comment on above: Performed By: #### 8 5499 ####[facility] [facility] [place] [address], [place] Glucose [Mass/Vol] 111 mg/dL High 70-100 [facility] Comment on above: Performed By: #### 8 5499 ####[facility] [facility] [place] [address], [place] Glucose [Mass/Vol] 181 mg/dL High 70-100 [facility] Comment on above: Performed By: #### 8 5499 ####[facility] [place] [address], [place] Glucose [Mass/Vol] 167 mg/dL High 70-100 [facility] Comment on above: Performed By: #### 8 5499 ####[facility] [place] [address], [facility] *C DIFF DNA AMPLIFICATIONon 08-22-2021 *C DIFF DNA AMPLIFICATION Clinical Report: (D) Specimen: [id number] Collected: 08/22/2021 16:41 Status: Final Last Updated: 08/22/2021 18:57 (1) No: Do not add to previous draw CDT DNA: (Final) Negative Normal The [facility] Comment on above: Order Comment: No: D o not add to previous draw Performed By: #### 3 0622 ####[facility] [place] [address], [place] BASIC METABOLIC PANELon 12-2 Calcium [Mass/Vol] 8.2 mg/dL Low 8.6-10.3 [facility] Comment on above: Order Comment: No: D o not add to previous draw Performed By: #### 1 0, 44822 ####[facility] [place] [address], [facility] Chloride [Moles/Vol] 104 mmol/L Normal 98-[address] [facility] Comment on above: Order Comment: No: D o not add to previous draw Performed By: #### 1 69, 69825 ####[facility] [place] [address], [facility] CO2 [Moles/Vol] 21 mmol/L Normal 21-31 The [facility] Comment on above: Order Comment: No: D o not add to previous draw Performed By: #### 1 69, 65654 ####[facility] [place] [address], [facility] Creatinine [Mass/Vol] 0.92 mg/dL Normal 0.70-1.[address] [facility] Comment on above: Order Comment: No: D o not add to previous draw Performed By: #### 1 69, 56230 ####[facility] [place] [address], [facility] GFR/1.73 sq M.predicted among blacks MDRD (S/P/Bld) [Vol rate/Area] mL/min/{1.73_m2} Normal >[address] [facility] Comment on above: Order Comment: No: D o not add to previous draw Result Comment: Calc ulation may not be valid for patients over 70 years Performed By: #### 1 69, 83147 ####[facility] [place] [address], [facility] GFR/1.73 sq M.predicted among non-blacks MDRD (S/P/Bld) [Vol rate/Area] mL/min/{1.73_m2} Normal >[address] [facility] Comment on above: Order Comment: No: D o not add to previous draw Result Comment: Calc ulation may not be valid for patients over 70 years Performed By: #### 1 69, 33042 ####[facility] [place] [address], [facility] Glucose [Mass/Vol] 179 mg/dL High 70-100 [facility] Comment on above: Order Comment: No: D o not add to previous draw Performed By: #### 1 69, 07043 ####[facility] [place] [address], [facility] Potassium [Moles/Vol] 4.4 mmol/L Normal 3.5-5.[address] [facility] Comment on above: Order Comment: No: D o not add to previous draw Performed By: #### 1 69, 96975 ####[place] [address] [place] [address], [facility] Sodium [Moles/Vol] 134 mmol/L Low 136-145 The [facility] Comment on above: Order Comment: No: D o not add to previous draw Performed By: #### 1 69, 09188 ####[place] [address] [place] [address], [facility] Urea nitrogen [Mass/Vol] 9 mg/dL Normal 7-[address] [facility] Comment on above: Order Comment: No: D o not add to previous draw Performed By: #### 1 69, 04964 ####[facility] CBC COMPLETE BLOOD COUNTon 10-23-2020 Erythrocyte distribution width (RBC) [Ratio] 14.7 % Normal 11.5-15.[address] [facility] Comment on above: Order Comment: No: D o not add to previous draw Performed By: #### 5 0608 ####[facility] [place] [address], [facility] Hematocrit (Bld) [Volume fraction] 36.8 % Low 39.0-50.[address] [facility] Comment on above: Order Comment: No: D o not add to previous draw Performed By: #### 5 0608 ####[facility] [address] Hemoglobin (Bld) [Mass/Vol] 12.4 g/dL Low 13.0-17.[address] [facility] Comment on above: Order Comment: No: D o not add to previous draw Performed By: #### 5 0608 ####[facility] MCH (RBC) [Entitic mass] 32.3 pg Normal 27.0-33.[address] [facility] Comment on above: Order Comment: No: D o not add to previous draw Performed By: #### 5 0608 ####[facility] MCHC (RBC) [Mass/Vol] 33.7 g/dL Normal 32.0-35.[address] [facility] Comment on above: Order Comment: No: D o not add to previous draw Performed By: #### 5 0608 ####[facility] [address] MCV (RBC) [Entitic vol] 95.8 fL Normal 82.0-98.[address] [facility] Comment on above: Order Comment: No: D o not add to previous draw Performed By: #### 5 0608 ####[facility] Nucleated RBC/100 WBC (Bld) [Ratio] 0 % Normal 0-[address] [facility] Comment on above: Order Comment: No: D o not add to previous draw Performed By: #### 5 0608 ####[facility] [place] [address] PLAT CNT 176 10*3/uL Normal 150-400 The [facility] Comment on above: Order Comment: No: D o not add to previous draw Performed By: #### 5 0608 ####[facility] [place] [address], [facility] RBC (Bld) [#/Vol] 3.84 10*6/uL Low 4.20-5.70 The [facility] Comment on above: Order Comment: No: D o not add to previous draw Performed By: #### 5 0608 ####[facility] [place] [address], [facility] WBC (Bld) [#/Vol] 17.17 10*3/uL High 4.00-10.[address] [facility] Comment on above: Order Comment: No: D o not add to previous draw Performed By: #### 5 0608 ####[facility] [facility] ABDOMEN AND PELVIS W ORAL CONTRASTon 08-22-2021 CT ABDOMEN AND PELVIS W ORAL CONTRAST Normal [facility] Comment on above: Order Comment: Fluid Collection MAGNESIUM BLOODon 08-22-2021 Magnesium [Mass/Vol] 1.9 mg/dL Normal 1.9-2.[address] [facility] Comment on above: Order Comment: No: D o not add to previous draw Performed By: #### 1 0070, 32278 ####[facility] POC GLUCOSE LABon 08-22-2021 Glucose [Mass/Vol] 119 mg/dL High 70-100 The [facility] Comment on above: Performed By: #### 8 5499 ####[facility] [place] [address], [facility] Glucose [Mass/Vol] 180 mg/dL High 70-100 [facility] Comment on above: Performed By: #### 8 5499 ####[facility] [place] [address], [place] Glucose [Mass/Vol] 146 mg/dL High 70-100 [facility] Comment on above: Performed By: #### 8 5499 ####[facility] [place] [address], [place] Glucose [Mass/Vol] 177 mg/dL High 70-100 [facility] Comment on above: Performed By: #### 8 5499 ####[facility] [place] [address], [place] BASIC METABOLIC PANELon 12-2 0-2020 Calcium [Mass/Vol] 8.0 mg/dL Low 8.6-10.3 [facility] Comment on above: Order Comment: No: D o not add to previous draw Performed By: #### 0 0071, 14416, 37422 ####[facility] [place] [address], [place] Chloride [Moles/Vol] 102 mmol/L Normal 98-[address] [facility] Comment on above: Order Comment: No: D o not add to previous draw Performed By: #### 0 0071, 75207, 55485 ####[facility] [place] [address], [place] CO2 [Moles/Vol] 23 mmol/L Normal 21-31 The [facility] Comment on above: Order Comment: No: D o not add to previous draw Performed By: #### 0 0071, 76137, 45168 ####[facility] [place] [address], [place] Creatinine [Mass/Vol] 0.89 mg/dL Normal 0.70-1.[address] [facility] Comment on above: Order Comment: No: D o not add to previous draw Performed By: #### 0 0071, 30295, 19709 ####[facility] [place] [address], [facility] GFR/1.73 sq M.predicted among blacks MDRD (S/P/Bld) [Vol rate/Area] mL/min/{1.73_m2} Normal >[address] [facility] Comment on above: Order Comment: No: D o not add to previous draw Result Comment: Calc ulation may not be valid for patients over 70 years Performed By: #### 0 0071, 06166, 63185 ####[facility] [place] [address], [facility] GFR/1.73 sq M.predicted among non-blacks MDRD (S/P/Bld) [Vol rate/Area] mL/min/{1.73_m2} Normal >[address] [facility] Comment on above: Order Comment: No: D o not add to previous draw Result Comment: Calc ulation may not be valid for patients over 70 years Performed By: #### 0 0071, 00732, 74572 ####[facility] [place] [address], [facility] Glucose [Mass/Vol] 200 mg/dL High 70-100 [facility] Comment on above: Order Comment: No: D o not add to previous draw Performed By: #### 0 0071, 78456, 16464 ####[facility] [place] [address], [facility] Potassium [Moles/Vol] 4.4 mmol/L Normal 3.5-5.[address] [facility] Comment on above: Order Comment: No: D o not add to previous draw Performed By: #### 0 0071, 74627, 10333 ####[facility] [facility] [place] [address], [facility] Sodium [Moles/Vol] 132 mmol/L Low 136-145 [facility] Comment on above: Order Comment: No: D o not add to previous draw Performed By: #### 0 0071, 09621, 18502 ####[facility] Urea nitrogen [Mass/Vol] 10 mg/dL Normal 7-[address] [facility] Comment on above: Order Comment: No: D o not add to previous draw Performed By: #### 0 0071, 60115, 98479 ####[facility] CBC COMPLETE BLOOD COUNTon 10-22-2020 Erythrocyte distribution width (RBC) [Ratio] 14.6 % Normal 11.5-15.[address] [facility] Comment on above: Order Comment: No: D o not add to previous draw Performed By: #### 5 0608 ####[facility] [address] Hematocrit (Bld) [Volume fraction] 34.1 % Low 39.0-50.[address] [facility] Comment on above: Order Comment: No: D o not add to previous draw Performed By: #### 5 0608 ####[facility] Hemoglobin (Bld) [Mass/Vol] 11.5 g/dL Low 13.0-17.[address] [facility] Comment on above: Order Comment: No: D o not add to previous draw Performed By: #### 5 0608 ####[facility] MCH (RBC) [Entitic mass] 32.0 pg Normal 27.0-33.[address] [facility] Comment on above: Order Comment: No: D o not add to previous draw Performed By: #### 5 0608 ####[facility] MCHC (RBC) [Mass/Vol] 33.7 g/dL Normal 32.0-35.[address] [facility] Comment on above: Order Comment: No: D o not add to previous draw Performed By: #### 5 0608 ####[facility] [place] [address], [facility] MCV (RBC) [Entitic vol] 95.0 fL Normal 82.0-98.[address] [facility] Comment on above: Order Comment: No: D o not add to previous draw Performed By: #### 5 0608 ####[facility] [place] [address], [facility] Nucleated RBC/100 WBC (Bld) [Ratio] 0 % Normal 0-[address] [facility] Comment on above: Order Comment: No: D o not add to previous draw Performed By: #### 5 0608 ####[facility] [place] [address], [facility] PLAT CNT 163 10*3/uL Normal 150-400 The [facility] Comment on above: Order Comment: No: D o not add to previous draw Performed By: #### 5 0608 ####[address] [place] [address], [facility] RBC (Bld) [#/Vol] 3.59 10*6/uL Low 4.20-5.70 The [facility] Comment on above: Order Comment: No: D o not add to previous draw Performed By: #### 5 0608 ####[facility] [place] [address], [facility] WBC (Bld) [#/Vol] 17.22 10*3/uL High 4.00-10.[address] [facility] Comment on above: Order Comment: No: D o not add to previous draw Performed By: #### 5 0608 ####[address] [place] [address], [facility] MAGNESIUM BLOODon 08-21-2021 Magnesium [Mass/Vol] 2.1 mg/dL Normal 1.9-2.[address] [facility] Comment on above: Order Comment: No: D o not add to previous draw Performed By: #### 0 0071, 22938, 65908 ####[facility] [place] [address], [facility] PHOSPHORUS BLOODon Phosphate [Mass/Vol] 3.4 mg/dL Normal 2.5-5.[address] [facility] Comment on above: Order Comment: No: D o not add to previous draw Performed By: #### 0 0071, 88517, 32968 ####[facility] [place] [address], [place] POC GLUCOSE LABon 08-21-2021 Glucose [Mass/Vol] 122 mg/dL High 70-100 The [facility] Comment on above: Performed By: #### 8 5499 ####[facility] [place] [address], [place] Glucose [Mass/Vol] 172 mg/dL High 70-100 [facility] Comment on above: Performed By: #### 8 5499 ####[facility] [place] [address], [place] Glucose [Mass/Vol] 120 mg/dL High 70-100 [facility] Comment on above: Performed By: #### 8 5499 ####[facility] [place] [address], [place] Glucose [Mass/Vol] 185 mg/dL High 70-100 [facility] Comment on above: Performed By: #### 8 5499 ####[facility] [place] [address], [place] BASIC METABOLIC PANELon 08-02 Calcium [Mass/Vol] 7.9 mg/dL Low 8.6-10.3 [facility] Comment on above: Order Comment: No: D o not add to previous draw Performed By: #### 1 0070, 35180, 44145 ####[facility] [place] [address], [facility] Chloride [Moles/Vol] 104 mmol/L Normal 98-[address] [facility] Comment on above: Order Comment: No: D o not add to previous draw Performed By: #### 1 0070, 44660, 70733 ####[facility] [place] [address], [place] CO2 [Moles/Vol] 22 mmol/L Normal 21-31 The [facility] Comment on above: Order Comment: No: D o not add to previous draw Performed By: #### 1 0070, 51273, 69555 ####[facility] [facility] [place] [address], [facility] Creatinine [Mass/Vol] 0.91 mg/dL Normal 0.70-1.[address] [facility] Comment on above: Order Comment: No: D o not add to previous draw Performed By: #### 1 0070, 76207, 35407 ####[facility] [facility] [place] [address], [facility] GFR/1.73 sq M.predicted among blacks MDRD (S/P/Bld) [Vol rate/Area] mL/min/{1.73_m2} Normal >[address] [facility] Comment on above: Order Comment: No: D o not add to previous draw Result Comment: Calc ulation may not be valid for patients over 70 years Performed By: #### 1 0070, 56975, 99997 ####[facility] [place] [address], [place] GFR/1.73 sq M.predicted among non-blacks MDRD (S/P/Bld) [Vol rate/Area] mL/min/{1.73_m2} Normal >[address] [facility] Comment on above: Order Comment: No: D o not add to previous draw Result Comment: Calc ulation may not be valid for patients over 70 years Performed By: #### 1 0070, 39191, 67356 ####[facility] [place] [address], [facility] Glucose [Mass/Vol] 154 mg/dL High 70-100 The [facility] Comment on above: Order Comment: No: D o not add to previous draw Performed By: #### 1 0, 33110, 58541 ####[facility] [place] [address], [facility] Potassium [Moles/Vol] 4.4 mmol/L Normal 3.5-5.[address] [facility] Comment on above: Order Comment: No: D o not add to previous draw Performed By: #### 1 0, 68820, 92808 ####[facility] [id number], [facility] Sodium [Moles/Vol] 133 mmol/L Low 136-145 The [facility] Comment on above: Order Comment: No: D o not add to previous draw Performed By: #### 1 0, 79324, 46917 ####[facility] [place] [address], [facility] Urea nitrogen [Mass/Vol] 14 mg/dL Normal 7-[address] [facility] Comment on above: Order Comment: No: D o not add to previous draw Performed By: #### 1 0, 52750, 29245 ####[facility] CBC COMPLETE BLOOD COUNTon 1 - Erythrocyte distribution width (RBC) [Ratio] 14.6 % Normal 11.5-15.[address] [facility] Comment on above: Order Comment: No: D o not add to previous drawPT in restroom Performed By: #### 5 0608 ####[facility] [id number], [facility] Hematocrit (Bld) [Volume fraction] 33.2 % Low 39.0-50.[address] [facility] Comment on above: Order Comment: No: D o not add to previous drawPT in restroom Performed By: #### 5 0608 ####[facility] Hemoglobin (Bld) [Mass/Vol] 11.2 g/dL Low 13.0-17.[address] [facility] Comment on above: Order Comment: No: D o not add to previous drawPT in restroom Performed By: #### 5 0608 ####[facility] MCH (RBC) [Entitic mass] 32.2 pg Normal 27.0-33.[address] [facility] Comment on above: Order Comment: No: D o not add to previous drawPT in restroom Performed By: #### 5 0608 ####[facility] MCHC (RBC) [Mass/Vol] 33.7 g/dL Normal 32.0-35.[address] [facility] Comment on above: Order Comment: No: D o not add to previous drawPT in restroom Performed By: #### 5 0608 ####[facility] MCV (RBC) [Entitic vol] 95.4 fL Normal 82.0-98.[address] [facility] Comment on above: Order Comment: No: D o not add to previous drawPT in restroom Performed By: #### 5 0608 ####[facility] Nucleated RBC/100 WBC (Bld) [Ratio] 0 % Normal 0-[address] [facility] Comment on above: Order Comment: No: D o not add to previous drawPT in restroom Performed By: #### 5 0608 ####[facility] PLAT CNT 155 10*3/uL Normal 150-400 The [facility] Comment on above: Order Comment: No: D o not add to previous drawPT in restroom Performed By: #### 5 0608 ####[facility] [place] [address], [facility] RBC (Bld) [#/Vol] 3.48 10*6/uL Low 4.20-5.70 The [facility] Comment on above: Order Comment: No: D o not add to previous drawPT in restroom Performed By: #### 5 0608 ####[facility] [place] [address], [facility] WBC (Bld) [#/Vol] 19.89 10*3/uL High 4.00-10.[address] [facility] Comment on above: Order Comment: No: D o not add to previous drawPT in restroom Performed By: #### 5 0608 ####[facility] MAGNESIUM BLOODon 08-20-2021 Magnesium [Mass/Vol] 1.7 mg/dL Low 1.9-2.[address] [facility] Comment on above: Order Comment: No: D o not add to previous draw Performed By: #### 1 0070, 71560, 86796 ####[facility] PHOSPHORUS BLOODon Phosphate [Mass/Vol] 3.1 mg/dL Normal 2.5-5.[address] [facility] Comment on above: Order Comment: No: D o not add to previous draw Performed By: #### 1 0070, 86816, 75692 ####[facility] POC GLUCOSE LABon 08-20-2021 Glucose [Mass/Vol] 160 mg/dL High 70-100 The [facility] Comment on above: Performed By: #### 8 5499 ####[facility] [place] [address], [place] Glucose [Mass/Vol] 175 mg/dL High 70-100 [facility] Comment on above: Performed By: #### 8 5499 ####[facility] [place] [address], [place] Glucose [Mass/Vol] 159 mg/dL High 70-100 [facility] Comment on above: Performed By: #### 8 5499 ####[facility] [place] [address], [place] Glucose [Mass/Vol] 145 mg/dL High 70-100 [facility] Comment on above: Performed By: #### 8 5499 ####[facility] [place] [address], [place] Glucose [Mass/Vol] 152 mg/dL High 70-100 [facility] Comment on above: Performed By: #### 8 5499 ####[facility] [facility] [place] [address], [place] BASIC METABOLIC PANELon 12- Calcium [Mass/Vol] 8.3 mg/dL Low 8.6-10.3 The [facility] Comment on above: Order Comment: No: D o not add to previous drawMissed Performed By: #### 4 999, 93448, 37937 ####[facility] [place] [address], [place] Chloride [Moles/Vol] 103 mmol/L Normal 98-[address] [facility] Comment on above: Order Comment: No: D o not add to previous drawMissed Performed By: #### 4 999, 74124, 95750 ####[facility] [place] [address], [facility] CO2 [Moles/Vol] 23 mmol/L Normal 21-31 [facility] Comment on above: Order Comment: No: D o not add to previous drawMissed Performed By: #### 4 1000, 25262, 62149 ####[facility] [facility] [place] [address], [facility] Creatinine [Mass/Vol] 0.86 mg/dL Normal 0.70-1.[address] [facility] Comment on above: Order Comment: No: D o not add to previous drawMissed Performed By: #### 4 1000, 99986, 48147 ####[facility] [facility] [address], [facility] GFR/1.73 sq M.predicted among blacks MDRD (S/P/Bld) [Vol rate/Area] mL/min/{1.73_m2} Normal >[address] [facility] Comment on above: Order Comment: No: D o not add to previous drawMissed Result Comment: Calc ulation may not be valid for patients over 70 years Performed By: #### 4 1000, 56692, 06649 ####[facility] [place] [address], [facility] GFR/1.73 sq M.predicted among non-blacks MDRD (S/P/Bld) [Vol rate/Area] mL/min/{1.73_m2} Normal >[address] [facility] Comment on above: Order Comment: No: D o not add to previous drawMissed Result Comment: Calc ulation may not be valid for patients over 70 years Performed By: #### 4 1000, 73515, 60387 ####[facility] [place] [address], [facility] Glucose [Mass/Vol] 176 mg/dL High 70-100 [facility] Comment on above: Order Comment: No: D o not add to previous drawMissed Performed By: #### 4 1000, 28544, 50254 ####[facility] [place] [address], [facility] Potassium [Moles/Vol] 4.8 mmol/L Normal 3.5-5.[address] [facility] Comment on above: Order Comment: No: D o not add to previous drawMissed Performed By: #### 4 1000, 83189, 71982 ####[facility] [place] [address], [facility] Sodium [Moles/Vol] 132 mmol/L Low 136-145 [facility] Comment on above: Order Comment: No: D o not add to previous drawMissed Performed By: #### 4 999, 45303, 46602 ####[facility] [place] [address], [facility] Urea nitrogen [Mass/Vol] 16 mg/dL Normal 7-[address] [facility] Comment on above: Order Comment: No: D o not add to previous drawMissed Performed By: #### 4 999, 56114, 54065 ####[facility] [place] [address], [facility] CBC COMPLETE BLOOD COUNTon 10-20-2020 Erythrocyte distribution width (RBC) [Ratio] 14.6 % Normal 11.5-15.[address] [facility] Comment on above: Order Comment: No: D o not add to previous drawMissed Performed By: #### 5 0608 ####[facility] [place] [address], [facility] Hematocrit (Bld) [Volume fraction] 38.2 % Low 39.0-50.[address] [facility] Comment on above: Order Comment: No: D o not add to previous drawMissed Performed By: #### 5 0608 ####[facility] [place] [address], [place] Hemoglobin (Bld) [Mass/Vol] 12.4 g/dL Low 13.0-17.0 The [facility] Comment on above: Order Comment: No: D o not add to previous drawMissed Performed By: #### 5 0608 ####[facility] MCH (RBC) [Entitic mass] 31.9 pg Normal 27.0-33.[address] [facility] Comment on above: Order Comment: No: D o not add to previous drawMissed Performed By: #### 5 0608 ####[facility] MCHC (RBC) [Mass/Vol] 32.5 g/dL Normal 32.0-35.[address] [facility] Comment on above: Order Comment: No: D o not add to previous drawMissed Performed By: #### 5 0608 ####[facility] MCV (RBC) [Entitic vol] 98.2 fL High 82.0-98.[address] [facility] Comment on above: Order Comment: No: D o not add to previous drawMissed Performed By: #### 5 0608 ####[place] [address] [address] Nucleated RBC/100 WBC (Bld) [Ratio] 0 % Normal 0-[address] [facility] Comment on above: Order Comment: No: D o not add to previous drawMissed Performed By: #### 5 0608 ####[facility] [place] [address], [facility] PLAT CNT 162 10*3/uL Normal 150-400 The [facility] Comment on above: Order Comment: No: D o not add to previous drawMissed Performed By: #### 5 0608 ####[facility] [place] [address].[place] [address], [facility] RBC (Bld) [#/Vol] 3.89 10*6/uL Low 4.20-5.70 [facility] Comment on above: Order Comment: No: D o not add to previous drawMissed Performed By: #### 5 0608 ####[facility] [place] [address], [facility] WBC (Bld) [#/Vol] 26.86 10*3/uL High 4.00-10.[address] [facility] Comment on above: Order Comment: No: D o not add to previous drawMissed Performed By: #### 5 0608 ####[facility] [place] [address], [facility] CT ABDOMEN AND PELVIS WO CON TRASTon 08-19-2021 CT ABDOMEN AND PELVIS WO CONTRAST Normal The [facility] Comment on above: Order Comment: Other , s/p Colostomy Reversal. Concerns for anastomotic leak. Please use Rectal Contrast. MAGNESIUM BLOODon 08-19-2021 Magnesium [Mass/Vol] 2.2 mg/dL Normal 1.9-2.[address] [facility] Comment on above: Order Comment: No: D o not add to previous drawMissed Performed By: #### 4 1000, 05129, 48132 ####[facility] [place] [address], [facility] PHOSPHORUS BLOODon Phosphate [Mass/Vol] 3.4 mg/dL Normal 2.5-5.[address] [facility] Comment on above: Order Comment: No: D o not add to previous drawMissed Performed By: #### 4 1000, 24339, 09398 ####[facility] [place] [address], [place] POC GLUCOSE LABon 08-19-2021 Glucose [Mass/Vol] 146 mg/dL High 70-100 [facility] Comment on above: Performed By: #### 8 5499 ####[facility] [place] [address], [place] Glucose [Mass/Vol] 122 mg/dL High 70-100 [facility] Comment on above: Performed By: #### 8 5499 ####[facility] [place] [address], [place] Glucose [Mass/Vol] 108 mg/dL High 70-100 [facility] Comment on above: Performed By: #### 8 5499 ####[facility] [place] [address], [place] Glucose [Mass/Vol] 153 mg/dL High 70-100 [facility] Comment on above: Performed By: #### 8 5499 ####[facility] [facility] [place] [address], [place] BASIC METABOLIC PANELon 12-1 Calcium [Mass/Vol] 8.5 mg/dL Low 8.6-10.3 The [facility] Comment on above: Order Comment: No: D o not add to previous draw Performed By: #### 1 0070, 63040, 04962 ####[facility] [place] [address], [place] Chloride [Moles/Vol] 100 mmol/L Normal 98-[address] [facility] Comment on above: Order Comment: No: D o not add to previous draw Performed By: #### 1 0070, 91767, 07846 ####[facility] [place] [address], [place] CO2 [Moles/Vol] 26 mmol/L Normal 21-31 The [facility] Comment on above: Order Comment: No: D o not add to previous draw Performed By: #### 1 0070, 61376, 06493 ####[facility] [place] [address], [place] Creatinine [Mass/Vol] 0.73 mg/dL Normal 0.70-1.[address] [facility] Comment on above: Order Comment: No: D o not add to previous draw Performed By: #### 1 0070, 72904, 52723 ####[facility] [place] [address], [facility] GFR/1.73 sq M.predicted among blacks MDRD (S/P/Bld) [Vol rate/Area] mL/min/{1.73_m2} Normal >[address] [facility] Comment on above: Order Comment: No: D o not add to previous draw Result Comment: Calc ulation may not be valid for patients over 70 years Performed By: #### 1 0070, 03093, 00187 ####[facility] [place] [address], [facility] GFR/1.73 sq M.predicted among non-blacks MDRD (S/P/Bld) [Vol rate/Area] mL/min/{1.73_m2} Normal >[address] [facility] Comment on above: Order Comment: No: D o not add to previous draw Result Comment: Calc ulation may not be valid for patients over 70 years Performed By: #### 1 0070, 25572, 77379 ####[facility] [place] [address], [facility] Glucose [Mass/Vol] 168 mg/dL High 70-100 [facility] Comment on above: Order Comment: No: D o not add to previous draw Performed By: #### 1 0070, 58452, 24880 ####[facility] [place] [address], [place] Potassium [Moles/Vol] 4.3 mmol/L Normal 3.5-5.[address] [facility] Comment on above: Order Comment: No: D o not add to previous draw Performed By: #### 1 0070, 80348, 56519 ####[facility] [place] [address], [place] Sodium [Moles/Vol] 135 mmol/L Low 136-145 [facility] Comment on above: Order Comment: No: D o not add to previous draw Performed By: #### 1 0070, 57290, 25081 ####[facility] [place] [address], [facility] Urea nitrogen [Mass/Vol] 15 mg/dL Normal 7-[address] [facility] Comment on above: Order Comment: No: D o not add to previous draw Performed By: #### 1 0070, 46918, 22088 ####[facility] [place] [address], [facility] CBC W/DIFFon 08-18-2021 ABS NEUTROPHILS 14.1 10*3/uL High 1.6-7.6 The [facility] Comment on above: Order Comment: No: D o not add to previous draw Performed By: #### 5 0103 ####[facility] [place] [address], [facility] Basophils (Bld) [#/Vol] 0.0 10*3/uL Normal 0.0-0.[address] [facility] Comment on above: Order Comment: No: D o not add to previous draw Performed By: #### 5 0103 ####[facility] [place] [address], [facility] Basophils/100 WBC (Bld) 0.0 % Normal 0.0-1.[address] [facility] Comment on above: Order Comment: No: D o not add to previous draw Performed By: #### 5 0103 ####[facility] [place] [address], [facility] Eosinophils (Bld) [#/Vol] 0.3 10*3/uL Normal 0.0-0.[address] [facility] Comment on above: Order Comment: No: D o not add to previous draw Performed By: #### 5 0103 ####[facility] Eosinophils/100 WBC (Bld) 1.0 % Normal 0.0-6.[address] [facility] Comment on above: Order Comment: No: D o not add to previous draw Performed By: #### 5 0103 ####[facility] [facility] Erythrocyte distribution width (RBC) [Ratio] 14.5 % Normal 11.5-15.[address] [facility] Comment on above: Order Comment: No: D o not add to previous draw Performed By: #### 5 0103 ####[facility] [place] [address], [facility] GIANT PLATELETS Present Normal The [facility] Comment on above: Order Comment: No: D o not add to previous draw Performed By: #### 5 0103 ####[facility] [address] Hematocrit (Bld) [Volume fraction] 38.5 % Low 39.0-50.[address] [facility] Comment on above: Order Comment: No: D o not add to previous draw Performed By: #### 5 0103 ####[facility] [place] [address], [facility] Hemoglobin (Bld) [Mass/Vol] 13.0 g/dL Normal 13.0-17.[address] [facility] Comment on above: Order Comment: No: D o not add to previous draw Performed By: #### 5 0103 ####[facility] [place] [address], [facility] Lymphocytes (Bld) [#/Vol] 10.6 10*3/uL High 1.2-4.[address] [facility] Comment on above: Order Comment: No: D o not add to previous draw Performed By: #### 5 0103 ####[facility] [facility] [place] [address], [facility] Lymphocytes/100 WBC (Bld) 40.4 % Normal 20.0-45.[address] [facility] Comment on above: Order Comment: No: D o not add to previous draw Performed By: #### 5 0103 ####[facility] [place] [address], [facility] MCH (RBC) [Entitic mass] 32.2 pg Normal 27.0-33.[address] [facility] Comment on above: Order Comment: No: D o not add to previous draw Performed By: #### 5 0103 ####[facility] [facility] MCHC (RBC) [Mass/Vol] 33.8 g/dL Normal 32.0-35.[address] [facility] Comment on above: Order Comment: No: D o not add to previous draw Performed By: #### 5 0103 ####[facility] MCV (RBC) [Entitic vol] 95.3 fL Normal 82.0-98.[address] [facility] Comment on above: Order Comment: No: D o not add to previous draw Performed By: #### 5 0103 ####[facility] Monocytes (Bld) [#/Vol] 1.3 10*3/uL High 0.1-1.[address] [facility] Comment on above: Order Comment: No: D o not add to previous draw Performed By: #### 5 0103 ####[facility] [place] [address], [facility] MONOS 5.1 % Normal 5.0-12.[address] [facility] Comment on above: Order Comment: No: D o not add to previous draw Performed By: #### 5 0103 ####[facility] [place] [address], [place] Neutrophils/100 WBC (Bld) 53.5 % Normal 40.0-72.[address] [facility] Comment on above: Order Comment: No: D o not add to previous draw Performed By: #### 5 0103 ####[facility] [place] [address], [facility] Nucleated RBC/100 WBC (Bld) [Ratio] 0 % Normal 0-[address] [facility] Comment on above: Order Comment: No: D o not add to previous draw Performed By: #### 5 0103 ####[facility] [place] [address], [facility] PLAT CNT 173 10*3/uL Normal 150-400 The [facility] Comment on above: Order Comment: No: D o not add to previous draw Performed By: #### 5 0103 ####[facility] [place] [address], [facility] RBC (Bld) [#/Vol] 4.04 10*6/uL Low 4.20-5.70 The [facility] Comment on above: Order Comment: No: D o not add to previous draw Performed By: #### 5 0103 ####[facility] [place] [address], [facility] SMUDGE CELLS MANY Normal The [facility] Comment on above: Order Comment: No: D o not add to previous draw Result Comment: Resu lt changed by [email or web address] on 08/18/2021 06:13. The previous value wasPresent. Performed By: #### 5 0103 ####[facility] [place] [address], [facility] WBC (Bld) [#/Vol] 26.29 10*3/uL High 4.00-10.[address] [facility] Comment on above: Order Comment: No: D o not add to previous draw Performed By: #### 5 0103 ####[facility] [place] [address], [place] MAGNESIUM BLOODon 08-18-2021 Magnesium [Mass/Vol] 1.9 mg/dL Normal 1.9-2.[address] [facility] Comment on above: Order Comment: No: D o not add to previous draw Performed By: #### 1 0070, 63710, 01988 ####[facility] [place] [address], [place] PHOSPHORUS BLOODon Phosphate [Mass/Vol] 3.6 mg/dL Normal 2.5-5.[address] [facility] Comment on above: Order Comment: No: D o not add to previous draw Performed By: #### 1 0070, 03157, 27439 ####[facility] [place] [address], [place] POC GLUCOSE LABon 08-18-2021 Glucose [Mass/Vol] 141 mg/dL High 70-100 The [facility] Comment on above: Performed By: #### 8 5499 ####[facility] [place] [address], [place] Glucose [Mass/Vol] 187 mg/dL High 70-100 [facility] Comment on above: Performed By: #### 8 5499 ####[facility] [place] [address], [place] Glucose [Mass/Vol] 168 mg/dL High 70-100 The [facility] Comment on above: Performed By: #### 8 5499 ####[facility] [place] [address], [place] Glucose [Mass/Vol] 183 mg/dL High 70-100 [facility] Comment on above: Performed By: #### 8 5499 ####[facility] [place] [address], [place] Glucose [Mass/Vol] 149 mg/dL High 70-100 The [facility] Comment on above: Performed By: #### 8 5499 ####[facility] [place] [address], [facility] Glucose [Mass/Vol] 221 mg/dL High 70-100 The [facility] Comment on above: Performed By: #### 8 5499 ####[facility] [place] [address], [facility] AMMONIA BLOODon 08-17-2021 Ammonia (P) [Moles/Vol] 10 umol/L Low 16-[address] [facility] Comment on above: Order Comment: Yes: Add to Previous draw if able Performed By: #### 2 1408 ####[facility] [place] [address], [facility] BASIC METABOLIC PANELon 08-02 Calcium [Mass/Vol] 8.6 mg/dL Normal 8.6-10.3 The [facility] Comment on above: Order Comment: No: D o not add to previous draw Performed By: #### 0 0071 ####[facility] [place] [address], [facility] Chloride [Moles/Vol] 101 mmol/L Normal 98-[address] [facility] Comment on above: Order Comment: No: D o not add to previous draw Performed By: #### 0 0071 ####[facility] [facility] [place] [place] [address], [facility] CO2 [Moles/Vol] 27 mmol/L Normal 21-31 The [facility] Comment on above: Order Comment: No: D o not add to previous draw Performed By: #### 0 0071 ####[facility] [place] [address], [place] Creatinine [Mass/Vol] 0.75 mg/dL Normal 0.70-1.[address] [facility] Comment on above: Order Comment: No: D o not add to previous draw Performed By: #### 0 0071 ####[facility] [facility] [place] [address], [facility] GFR/1.73 sq M.predicted among blacks MDRD (S/P/Bld) [Vol rate/Area] mL/min/{1.73_m2} Normal >[address] [facility] Comment on above: Order Comment: No: D o not add to previous draw Result Comment: Calc ulation may not be valid for patients over 70 years Performed By: #### 0 0071 ####[facility] [facility] [place] [address], [facility] GFR/1.73 sq M.predicted among non-blacks MDRD (S/P/Bld) [Vol rate/Area] mL/min/{1.73_m2} Normal >[address] [facility] Comment on above: Order Comment: No: D o not add to previous draw Result Comment: Calc ulation may not be valid for patients over 70 years Performed By: #### 0 0071 ####[facility] [place] [address], [facility] Glucose [Mass/Vol] 129 mg/dL High 70-100 The [facility] Comment on above: Order Comment: No: D o not add to previous draw Performed By: #### 0 0071 ####[facility] .[place] [id number], [facility] Potassium [Moles/Vol] 4.0 mmol/L Normal 3.5-5.[address] [facility] Comment on above: Order Comment: No: D o not add to previous draw Performed By: #### 0 0071 ####[facility] [place] [address], [facility] Sodium [Moles/Vol] 135 mmol/L Low 136-145 The [facility] Comment on above: Order Comment: No: D o not add to previous draw Performed By: #### 0 0071 ####[facility] Urea nitrogen [Mass/Vol] 11 mg/dL Normal 7-[address] [facility] Comment on above: Order Comment: No: D o not add to previous draw Performed By: #### 0 0071 ####[facility] CBC COMPLETE BLOOD COUNTon 10-18-2020 Erythrocyte distribution width (RBC) [Ratio] 14.2 % Normal 11.5-15.[address] [facility] Comment on above: Order Comment: No: D o not add to previous draw Performed By: #### 5 0608 ####[facility] Hematocrit (Bld) [Volume fraction] 38.8 % Low 39.0-50.[address] [facility] Comment on above: Order Comment: No: D o not add to previous draw Performed By: #### 5 0608 ####[facility] Hemoglobin (Bld) [Mass/Vol] 13.4 g/dL Normal 13.0-17.[address] [facility] Comment on above: Order Comment: No: D o not add to previous draw Performed By: #### 5 0608 ####[facility] MCH (RBC) [Entitic mass] 32.2 pg Normal 27.0-33.[address] [facility] Comment on above: Order Comment: No: D o not add to previous draw Performed By: #### 5 0608 ####[facility] MCHC (RBC) [Mass/Vol] 34.5 g/dL Normal 32.0-35.[address] [facility] Comment on above: Order Comment: No: D o not add to previous draw Performed By: #### 5 0608 ####[facility] [place] [address], [facility] MCV (RBC) [Entitic vol] 93.3 fL Normal 82.0-98.[address] [facility] Comment on above: Order Comment: No: D o not add to previous draw Performed By: #### 5 0608 ####[facility] Nucleated RBC/100 WBC (Bld) [Ratio] 0 % Normal 0-[address] [facility] Comment on above: Order Comment: No: D o not add to previous draw Performed By: #### 5 0608 ####[facility] [place] [address], [facility] PLAT CNT 168 10*3/uL Normal 150-400 The [facility] Comment on above: Order Comment: No: D o not add to previous draw Performed By: #### 5 0608 ####[facility] [place] [address] RBC (Bld) [#/Vol] 4.16 10*6/uL Low 4.20-5.70 The [facility] Comment on above: Order Comment: No: D o not add to previous draw Performed By: #### 5 0608 ####[facility] [place] [address], [facility] WBC (Bld) [#/Vol] 26.64 10*3/uL High 4.00-10.[address] [facility] Comment on above: Order Comment: No: D o not add to previous draw Performed By: #### 5 0608 ####[address] LACTATE BLOODon 08-17-2021 Lactate [Moles/Vol] 0.7 mmol/L Normal .5-2.2 The [facility] Comment on above: Order Comment: Yes: Add to Previous draw if able Performed By: #### 1 0054 ####[facility] [place] [address], [place] POC GLUCOSE LABon 08-17-2021 Glucose [Mass/Vol] 146 mg/dL High 70-100 [facility] Comment on above: Performed By: #### 8 5499 ####[facility] [place] [address], [place] Glucose [Mass/Vol] 144 mg/dL High 70-100 The [facility] Comment on above: Performed By: #### 8 5499 ####[facility] [place] [address], [place] Glucose [Mass/Vol] 150 mg/dL High 70-100 The [facility] Comment on above: Performed By: #### 8 5499 ####[facility] [facility] [place] [address], [place] Glucose [Mass/Vol] 126 mg/dL High 70-100 The [facility] Comment on above: Performed By: #### 8 5499 ####[facility] [place] [address], [place] Glucose [Mass/Vol] 166 mg/dL High 70-100 [facility] Comment on above: Performed By: #### 8 5499 ####[facility] [place] [address], [place] Glucose [Mass/Vol] 141 mg/dL High 70-100 [facility] Comment on above: Performed By: #### 8 5499 ####[facility] [place] [address], [place] BASIC METABOLIC PANELon 08-02 Calcium [Mass/Vol] 8.4 mg/dL Low 8.6-10.3 [facility] Comment on above: Order Comment: No: D o not add to previous draw Performed By: #### 0 0071 ####[facility] [place] [address], [facility] Chloride [Moles/Vol] 101 mmol/L Normal 98-[address] [facility] Comment on above: Order Comment: No: D o not add to previous draw Performed By: #### 0 0071 ####[facility] [place] [address], [facility] CO2 [Moles/Vol] 27 mmol/L Normal 21-31 The [facility] Comment on above: Order Comment: No: D o not add to previous draw Performed By: #### 0 0071 ####[facility] [place] [address], [facility] Creatinine [Mass/Vol] 0.75 mg/dL Normal 0.70-1.[address] [facility] Comment on above: Order Comment: No: D o not add to previous draw Performed By: #### 0 0071 ####[facility] [place] [address], [facility] GFR/1.73 sq M.predicted among blacks MDRD (S/P/Bld) [Vol rate/Area] mL/min/{1.73_m2} Normal >[address] [facility] Comment on above: Order Comment: No: D o not add to previous draw Result Comment: Calc ulation may not be valid for patients over 70 years Performed By: #### 0 0071 ####[facility] [facility] [place] [address], [facility] GFR/1.73 sq M.predicted among non-blacks MDRD (S/P/Bld) [Vol rate/Area] mL/min/{1.73_m2} Normal >[address] [facility] Comment on above: Order Comment: No: D o not add to previous draw Result Comment: Calc ulation may not be valid for patients over 70 years Performed By: #### 0 0071 ####[facility] [id number], [facility] Glucose [Mass/Vol] 146 mg/dL High 70-100 The [facility] Comment on above: Order Comment: No: D o not add to previous draw Performed By: #### 0 0071 ####[facility] [address], [facility] Potassium [Moles/Vol] 4.4 mmol/L Normal 3.5-5.[address] [facility] Comment on above: Order Comment: No: D o not add to previous draw Performed By: #### 0 0071 ####[facility] [id number], [facility] Sodium [Moles/Vol] 135 mmol/L Low 136-145 The [facility] Comment on above: Order Comment: No: D o not add to previous draw Performed By: #### 0 0071 ####[facility] [place] [address], [facility] Urea nitrogen [Mass/Vol] 11 mg/dL Normal 7-[address] [facility] Comment on above: Order Comment: No: D o not add to previous draw Performed By: #### 0 0071 ####[facility] [facility] [address], [facility] CBC COMPLETE BLOOD COUNTon 10-17-2020 Erythrocyte distribution width (RBC) [Ratio] 14.1 % Normal 11.5-15.[address] [facility] Comment on above: Order Comment: No: D o not add to previous draw Performed By: #### 5 0608 ####[facility] [place] [address], [facility] Hematocrit (Bld) [Volume fraction] 38.5 % Low 39.0-50.[address] [facility] Comment on above: Order Comment: No: D o not add to previous draw Performed By: #### 5 0608 ####[facility] Hemoglobin (Bld) [Mass/Vol] 12.8 g/dL Low 13.0-17.[address] [facility] Comment on above: Order Comment: No: D o not add to previous draw Performed By: #### 5 0608 ####[facility] MCH (RBC) [Entitic mass] 31.9 pg Normal 27.0-33.[address] [facility] Comment on above: Order Comment: No: D o not add to previous draw Performed By: #### 5 0608 ####[address] MCHC (RBC) [Mass/Vol] 33.2 g/dL Normal 32.0-35.[address] [facility] Comment on above: Order Comment: No: D o not add to previous draw Performed By: #### 5 0608 ####[address] MCV (RBC) [Entitic vol] 96.0 fL Normal 82.0-98.[address] [facility] Comment on above: Order Comment: No: D o not add to previous draw Performed By: #### 5 0608 ####[address] Nucleated RBC/100 WBC (Bld) [Ratio] 0 % Normal 0-[address] [facility] Comment on above: Order Comment: No: D o not add to previous draw Performed By: #### 5 0608 ####[address] PLAT CNT 142 10*3/uL Low 150-400 The [facility] Comment on above: Order Comment: No: D o not add to previous draw Performed By: #### 5 0608 ####[address] [place] [address], [place] RBC (Bld) [#/Vol] 4.01 10*6/uL Low 4.20-5.70 [facility] Comment on above: Order Comment: No: D o not add to previous draw Performed By: #### 5 0608 ####[facility] [place] [address], [place] WBC (Bld) [#/Vol] 23.65 10*3/uL High 4.00-10.[address] [facility] Comment on above: Order Comment: No: D o not add to previous draw Performed By: #### 5 0608 ####[facility] [place] [address], [place] POC GLUCOSE LABon 08-16-2021 Glucose [Mass/Vol] 139 mg/dL High 70-100 The [facility] Comment on above: Performed By: #### 8 5499 ####[facility] [place] [address], [place] Glucose [Mass/Vol] 131 mg/dL High 70-100 [facility] Comment on above: Performed By: #### 8 5499 ####[facility] [facility] [place] [address], [place] Glucose [Mass/Vol] 138 mg/dL High 70-100 [facility] Comment on above: Performed By: #### 8 5499 ####[facility] [place] [address], [place] Glucose [Mass/Vol] 149 mg/dL High 70-100 [facility] Comment on above: Performed By: #### 8 5499 ####[facility] [place] [address], [place] Glucose [Mass/Vol] 136 mg/dL High 70-100 [facility] Comment on above: Performed By: #### 8 5499 ####[facility] [place] [address], [facility] BASIC METABOLIC PANELon 12- Calcium [Mass/Vol] 8.0 mg/dL Low 8.6-10.3 [facility] Comment on above: Order Comment: No: D o not add to previous draw Performed By: #### 1 0, 21036, 06068 ####[facility] [place] [address], [facility] Chloride [Moles/Vol] 102 mmol/L Normal 98-[address] [facility] Comment on above: Order Comment: No: D o not add to previous draw Performed By: #### 1 0, 85912, 89157 ####[facility] [place] [address], [place] CO2 [Moles/Vol] 28 mmol/L Normal 21-31 [facility] Comment on above: Order Comment: No: D o not add to previous draw Performed By: #### 1 0, 58862, 10890 ####[facility] [place] [address], [facility] Creatinine [Mass/Vol] 0.71 mg/dL Normal 0.70-1.[address] [facility] Comment on above: Order Comment: No: D o not add to previous draw Performed By: #### 1 0, 01611, 59598 ####[facility] [place] [address], [place] GFR/1.73 sq M.predicted among blacks MDRD (S/P/Bld) [Vol rate/Area] mL/min/{1.73_m2} Normal >[address] [facility] Comment on above: Order Comment: No: D o not add to previous draw Result Comment: Calc ulation may not be valid for patients over 70 years Performed By: #### 1 0, 51390, 16645 ####[facility] [place] [address], [facility] GFR/1.73 sq M.predicted among non-blacks MDRD (S/P/Bld) [Vol rate/Area] mL/min/{1.73_m2} Normal >[address] [facility] Comment on above: Order Comment: No: D o not add to previous draw Result Comment: Calc ulation may not be valid for patients over 70 years Performed By: #### 1 0, 35385, 25276 ####[facility] [place] [address], [place] Glucose [Mass/Vol] 163 mg/dL High 70-100 [facility] Comment on above: Order Comment: No: D o not add to previous draw Performed By: #### 1 69, 59317, 17641 ####[facility] [place] [address], [facility] Potassium [Moles/Vol] 4.0 mmol/L Normal 3.5-5.[address] [facility] Comment on above: Order Comment: No: D o not add to previous draw Performed By: #### 1 69, 92692, 75382 ####[facility] [place] [address], [place] Sodium [Moles/Vol] 135 mmol/L Low 136-145 The [facility] Comment on above: Order Comment: No: D o not add to previous draw Performed By: #### 1 0, 31369, 68599 ####[facility] [place] [address], [place] Urea nitrogen [Mass/Vol] 10 mg/dL Normal 7-[address] [facility] Comment on above: Order Comment: No: D o not add to previous draw Performed By: #### 1 0, 20448, 59367 ####[facility] [place] [address], [place] CBC COMPLETE BLOOD COUNTon 1 2-14-2021 Erythrocyte distribution width (RBC) [Ratio] 14.3 % Normal 11.5-15.[address] [facility] Comment on above: Order Comment: No: D o not add to previous draw Performed By: #### 5 0608 ####[facility] Hematocrit (Bld) [Volume fraction] 37.2 % Low 39.0-50.[address] [facility] Comment on above: Order Comment: No: D o not add to previous draw Performed By: #### 5 0608 ####[place] [address] [address] Hemoglobin (Bld) [Mass/Vol] 12.2 g/dL Low 13.0-17.[address] [facility] Comment on above: Order Comment: No: D o not add to previous draw Performed By: #### 5 0608 ####[facility] MCH (RBC) [Entitic mass] 31.9 pg Normal 27.0-33.[address] [facility] Comment on above: Order Comment: No: D o not add to previous draw Performed By: #### 5 0608 ####[place] [address] [address] MCHC (RBC) [Mass/Vol] 32.8 g/dL Normal 32.0-35.[address] [facility] Comment on above: Order Comment: No: D o not add to previous draw Performed By: #### 5 0608 ####[facility] [place] [address], [facility] MCV (RBC) [Entitic vol] 97.1 fL Normal 82.0-98.[address] [facility] Comment on above: Order Comment: No: D o not add to previous draw Performed By: #### 5 0608 ####[facility] [place] [address], [place] [address], [place] Nucleated RBC/100 WBC (Bld) [Ratio] 0 % Normal 0-[address] [facility] Comment on above: Order Comment: No: D o not add to previous draw Performed By: #### 5 0608 ####[facility] [facility] [address], [facility] PLAT CNT 156 10*3/uL Normal 150-400 The [facility] Comment on above: Order Comment: No: D o not add to previous draw Performed By: #### 5 0608 ####[facility] [place] [address], [facility] RBC (Bld) [#/Vol] 3.83 10*6/uL Low 4.20-5.70 The [facility] Comment on above: Order Comment: No: D o not add to previous draw Performed By: #### 5 0608 ####[facility] [place] [address], [facility] WBC (Bld) [#/Vol] 25.37 10*3/uL High 4.00-10.[address] [facility] Comment on above: Order Comment: No: D o not add to previous draw Performed By: #### 5 0608 ####[facility] MAGNESIUM BLOODon 08-15-2021 Magnesium [Mass/Vol] 2.0 mg/dL Normal 1.9-2.[address] [facility] Comment on above: Order Comment: No: D o not add to previous draw Performed By: #### 1 0070, 60112, 17355 ####[facility] [place] [address], [facility] PHOSPHORUS BLOODon Phosphate [Mass/Vol] 2.6 mg/dL Normal 2.5-5.[address] [facility] Comment on above: Order Comment: No: D o not add to previous draw Performed By: #### 1 0070, 60731, 86887 ####[facility] [facility] [place] [address], [facility] POC GLUCOSE LABon 08-15-2021 Glucose [Mass/Vol] 154 mg/dL High 70-100 The [facility] Comment on above: Performed By: #### 8 5499 ####[facility] [facility] [place] [address], [place] Glucose [Mass/Vol] 142 mg/dL High 70-100 The [facility] Comment on above: Performed By: #### 8 5499 ####[facility] [place] [address], [place] Glucose [Mass/Vol] 162 mg/dL High 70-100 [facility] Comment on above: Performed By: #### 8 5499 ####[facility] [place] [address], [place] Glucose [Mass/Vol] 149 mg/dL High 70-100 The [facility] Comment on above: Performed By: #### 8 5499 ####[facility] [place] [address], [place] Glucose [Mass/Vol] 179 mg/dL High 70-100 The [facility] Comment on above: Performed By: #### 8 5499 ####[facility] [place] [address], [place] BASIC METABOLIC PANELon 08-02 Calcium [Mass/Vol] 8.2 mg/dL Low 8.6-10.3 The [facility] Comment on above: Order Comment: No: D o not add to previous draw Performed By: #### 4 1000, 67149, 68229 ####[facility] [place] [address], [place] Chloride [Moles/Vol] 101 mmol/L Normal 98-107 [facility] Comment on above: Order Comment: No: D o not add to previous draw Performed By: #### 4 1000, 85378, 43079 ####[facility] [place] [address], [facility] CO2 [Moles/Vol] 31 mmol/L Normal 21-31 The [facility] Comment on above: Order Comment: No: D o not add to previous draw Performed By: #### 4 1000, 64264, 91462 ####[facility] [place] [address], [facility] Creatinine [Mass/Vol] 0.85 mg/dL Normal 0.70-1.[address] [facility] Comment on above: Order Comment: No: D o not add to previous draw Performed By: #### 4 1000, 15244, 82817 ####[facility] [facility] [address], [facility] GFR/1.73 sq M.predicted among blacks MDRD (S/P/Bld) [Vol rate/Area] mL/min/{1.73_m2} Normal >60 [facility] Comment on above: Order Comment: No: D o not add to previous draw Result Comment: Calc ulation may not be valid for patients over 70 years Performed By: #### 4 1000, 42774, 83473 ####[facility] [place] [address], [facility] GFR/1.73 sq M.predicted among non-blacks MDRD (S/P/Bld) [Vol rate/Area] mL/min/{1.73_m2} Normal >[address] [facility] Comment on above: Order Comment: No: D o not add to previous draw Result Comment: Calc ulation may not be valid for patients over 70 years Performed By: #### 4 1000, 01196, 41032 ####[facility] [place] [address], [place] Glucose [Mass/Vol] 158 mg/dL High 70-100 [facility] Comment on above: Order Comment: No: D o not add to previous draw Performed By: #### 4 999, 06006, 50364 ####[facility] [place] [address], [place] Potassium [Moles/Vol] 3.8 mmol/L Normal 3.5-5.[address] [facility] Comment on above: Order Comment: No: D o not add to previous draw Performed By: #### 4 999, 24343, 57574 ####[facility] [place] [address], [place] Sodium [Moles/Vol] 137 mmol/L Normal 136-145 [facility] Comment on above: Order Comment: No: D o not add to previous draw Performed By: #### 4 999, 17580, 69740 ####[facility] [place] [address], [place] Urea nitrogen [Mass/Vol] 10 mg/dL Normal 7-[address] [facility] Comment on above: Order Comment: No: D o not add to previous draw Performed By: #### 4 999, 12565, 35169 ####[facility] [place] [address], [place] Calcium [Mass/Vol] 8.3 mg/dL Low 8.6-10.3 [facility] Comment on above: Order Comment: No: D o not add to previous draw Performed By: #### 0 0071, 03732 ####[facility] [place] [address], [place] Chloride [Moles/Vol] 100 mmol/L Normal 98-[address] [facility] Comment on above: Order Comment: No: D o not add to previous draw Performed By: #### 0 0071, 08700 ####[facility] [place] [address], [place] CO2 [Moles/Vol] 30 mmol/L Normal 21-31 [facility] Comment on above: Order Comment: No: D o not add to previous draw Performed By: #### 0 0071, 14044 ####[facility] [place] [address], [place] Creatinine [Mass/Vol] 0.93 mg/dL Normal 0.70-1.[address] [facility] Comment on above: Order Comment: No: D o not add to previous draw Performed By: #### 0 0071, 45928 ####[facility] [place] [address], [facility] GFR/1.73 sq M.predicted among blacks MDRD (S/P/Bld) [Vol rate/Area] mL/min/{1.73_m2} Normal >60 [facility] Comment on above: Order Comment: No: D o not add to previous draw Result Comment: Calc ulation may not be valid for patients over 70 years Performed By: #### 0 0071, 59934 ####[facility] [place] [address], [place] GFR/1.73 sq M.predicted among non-blacks MDRD (S/P/Bld) [Vol rate/Area] mL/min/{1.73_m2} Normal >[address] [facility] Comment on above: Order Comment: No: D o not add to previous draw Result Comment: Calc ulation may not be valid for patients over 70 years Performed By: #### 0 0071, 48561 ####[facility] [place] [address], [place] Glucose [Mass/Vol] 144 mg/dL High 70-100 [facility] Comment on above: Order Comment: No: D o not add to previous draw Performed By: #### 0 0071, 94531 ####[facility] [place] [address], [place] Potassium [Moles/Vol] 4.3 mmol/L Normal 3.5-5.[address] [facility] Comment on above: Order Comment: No: D o not add to previous draw Performed By: #### 0 0071, 94606 ####[facility] [id number], [facility] Sodium [Moles/Vol] 137 mmol/L Normal 136-145 [facility] Comment on above: Order Comment: No: D o not add to previous draw Performed By: #### 0 0071, 38656 ####[facility] [place] [address], [facility] Urea nitrogen [Mass/Vol] 10 mg/dL Normal 7-[address] [facility] Comment on above: Order Comment: No: D o not add to previous draw Performed By: #### 0 0071, 76269 ####[facility] [facility] [place] [address], [facility] CBC COMPLETE BLOOD COUNTon 10-15-2020 Erythrocyte distribution width (RBC) [Ratio] 14.4 % Normal 11.5-15.[address] [facility] Comment on above: Order Comment: No: D o not add to previous draw Performed By: #### 5 0608 ####[facility] [place] [address], [facility] Hematocrit (Bld) [Volume fraction] 36.0 % Low 39.0-50.[address] [facility] Comment on above: Order Comment: No: D o not add to previous draw Performed By: #### 5 0608 ####[facility] [place] [address], [facility] Hemoglobin (Bld) [Mass/Vol] 12.2 g/dL Low 13.0-17.[address] [facility] Comment on above: Order Comment: No: D o not add to previous draw Performed By: #### 5 0608 ####[facility] MCH (RBC) [Entitic mass] 32.3 pg Normal 27.0-33.[address] [facility] Comment on above: Order Comment: No: D o not add to previous draw Performed By: #### 5 0608 ####[facility] [place] [address], [facility] MCHC (RBC) [Mass/Vol] 33.9 g/dL Normal 32.0-35.[address] [facility] Comment on above: Order Comment: No: D o not add to previous draw Performed By: #### 5 0608 ####[facility] [place] [address], [facility] MCV (RBC) [Entitic vol] 95.2 fL Normal 82.0-98.[address] [facility] Comment on above: Order Comment: No: D o not add to previous draw Performed By: #### 5 0608 ####[place] [address] [address] Nucleated RBC/100 WBC (Bld) [Ratio] 0 % Normal 0-[address] [facility] Comment on above: Order Comment: No: D o not add to previous draw Performed By: #### 5 0608 ####[place] [address] [place] [address], [facility] PLAT CNT 153 10*3/uL Normal 150-400 [facility] Comment on above: Order Comment: No: D o not add to previous draw Performed By: #### 5 0608 ####[facility] [place] [address], [facility] RBC (Bld) [#/Vol] 3.78 10*6/uL Low 4.20-5.70 [facility] Comment on above: Order Comment: No: D o not add to previous draw Performed By: #### 5 0608 ####[facility] [place] [address], [facility] WBC (Bld) [#/Vol] 22.45 10*3/uL High 4.00-10.[address] [facility] Comment on above: Order Comment: No: D o not add to previous draw Performed By: #### 5 0608 ####[facility] Erythrocyte distribution width (RBC) [Ratio] 14.3 % Normal 11.5-15.[address] [facility] Comment on above: Order Comment: No: D o not add to previous draw Performed By: #### 5 0608 ####[place] [address] [address] Hematocrit (Bld) [Volume fraction] 37.3 % Low 39.0-50.[address] [facility] Comment on above: Order Comment: No: D o not add to previous draw Performed By: #### 5 0608 ####[facility] Hemoglobin (Bld) [Mass/Vol] 12.5 g/dL Low 13.0-17.[address] [facility] Comment on above: Order Comment: No: D o not add to previous draw Performed By: #### 5 0608 ####[place] [address] MCH (RBC) [Entitic mass] 32.1 pg Normal 27.0-33.[address] [facility] Comment on above: Order Comment: No: D o not add to previous draw Performed By: #### 5 0608 ####[facility] MCHC (RBC) [Mass/Vol] 33.5 g/dL Normal 32.0-35.[address] [facility] Comment on above: Order Comment: No: D o not add to previous draw Performed By: #### 5 0608 ####[facility] MCV (RBC) [Entitic vol] 95.9 fL Normal 82.0-98.[address] [facility] Comment on above: Order Comment: No: D o not add to previous draw Performed By: #### 5 0608 ####[facility] Nucleated RBC/100 WBC (Bld) [Ratio] 0 % Normal 0-[address] [facility] Comment on above: Order Comment: No: D o not add to previous draw Performed By: #### 5 0608 ####[facility] PLAT CNT 156 10*3/uL Normal 150-400 [facility] Comment on above: Order Comment: No: D o not add to previous draw Performed By: #### 5 0608 ####[facility] RBC (Bld) [#/Vol] 3.89 10*6/uL Low 4.20-5.70 [facility] Comment on above: Order Comment: No: D o not add to previous draw Performed By: #### 5 0608 ####[facility] WBC (Bld) [#/Vol] 24.62 10*3/uL High 4.00-10.[address] [facility] Comment on above: Order Comment: No: D o not add to previous draw Performed By: #### 5 0608 ####[facility] LACTATE BLOODon 08-14-2021 Lactate [Moles/Vol] 1.2 mmol/L Normal .5-2.2 [facility] Comment on above: Order Comment: No: D o not add to previous draw Performed By: #### 1 0054 ####[facility] [place] [address], [place] MAGNESIUM BLOODon 08-14-2021 Magnesium [Mass/Vol] 2.4 mg/dL Normal 1.9-2.[address] [facility] Comment on above: Order Comment: No: D o not add to previous draw Performed By: #### 4 1000, 84848, 72052 ####[facility] [place] [address], [place] Magnesium [Mass/Vol] 2.3 mg/dL Normal 1.9-2.[address] [facility] Comment on above: Order Comment: No: D o not add to previous draw Performed By: #### 0 0071, 67728 ####[facility] [place] [address], [place] Operative Reporton 1 Operative Report Normal [facility] PHOSPHORUS BLOODon 1 Phosphate [Mass/Vol] 1.8 mg/dL Low 2.5-5.[address] [facility] Comment on above: Order Comment: No: D o not add to previous draw Performed By: #### 4 1000, 27724, 00261 ####[facility] [facility] [place] [address], [place] POC GLUCOSE LABon 08-14-2021 Glucose [Mass/Vol] 156 mg/dL High 70-100 [facility] Comment on above: Performed By: #### 8 2009 ####[facility] [place] [address], [place] Glucose [Mass/Vol] 168 mg/dL High 70-100 [facility] Comment on above: Performed By: #### 8 5499 ####[facility] [place] [address], [place] Glucose [Mass/Vol] 145 mg/dL High 70-100 [facility] Comment on above: Performed By: #### 8 4419 ####[facility] [place] [address], [place] Glucose [Mass/Vol] 157 mg/dL High 70-100 [facility] Comment on above: Performed By: #### 8 5499 ####[facility] [place] [address], [place] Glucose [Mass/Vol] 153 mg/dL High 70-100 [facility] Comment on above: Performed By: #### 8 5499 ####[facility] [place] [address], [place] BASIC METABOLIC PANELon 08-02 Calcium [Mass/Vol] 8.2 mg/dL Low 8.6-10.3 [facility] Comment on above: Order Comment: No: D o not add to previous draw Performed By: #### 1 0, 59726, 87810 ####[facility] [place] [address], [place] Chloride [Moles/Vol] 104 mmol/L Normal 98-[address] [facility] Comment on above: Order Comment: No: D o not add to previous draw Performed By: #### 1 0, 47603, 26590 ####[facility] [place] [address], [place] CO2 [Moles/Vol] 27 mmol/L Normal 21-31 The [facility] Comment on above: Order Comment: No: D o not add to previous draw Performed By: #### 1 0070, 29546, 45495 ####[facility] [place] [address], [place] Creatinine [Mass/Vol] 0.87 mg/dL Normal 0.70-1.[address] [facility] Comment on above: Order Comment: No: D o not add to previous draw Performed By: #### 1 0, 97233, 40266 ####[facility] [place] [address], [facility] GFR/1.73 sq M.predicted among blacks MDRD (S/P/Bld) [Vol rate/Area] mL/min/{1.73_m2} Normal >[address] [facility] Comment on above: Order Comment: No: D o not add to previous draw Result Comment: Calc ulation may not be valid for patients over 70 years Performed By: #### 1 0070, 19847, 68796 ####[facility] [place] [address], [facility] GFR/1.73 sq M.predicted among non-blacks MDRD (S/P/Bld) [Vol rate/Area] mL/min/{1.73_m2} Normal >[address] [facility] Comment on above: Order Comment: No: D o not add to previous draw Result Comment: Calc ulation may not be valid for patients over 70 years Performed By: #### 1 0, 38878, 07888 ####[facility] [facility] [place] [address], [place] Glucose [Mass/Vol] 172 mg/dL High 70-100 [facility] Comment on above: Order Comment: No: D o not add to previous draw Performed By: #### 1 0, 61872, 31495 ####[facility] [place] [address], [facility] Potassium [Moles/Vol] 4.0 mmol/L Normal 3.5-5.[address] [facility] Comment on above: Order Comment: No: D o not add to previous draw Performed By: #### 1 0, 50026, 97423 ####[facility] [place] [address], [place] Sodium [Moles/Vol] 137 mmol/L Normal 136-145 [facility] Comment on above: Order Comment: No: D o not add to previous draw Performed By: #### 1 69, 73940, 68097 ####[facility] Urea nitrogen [Mass/Vol] 10 mg/dL Normal 7-[address] [facility] Comment on above: Order Comment: No: D o not add to previous draw Performed By: #### 1 0070, 64755, 44788 ####[facility] CBC COMPLETE BLOOD COUNTon 10-14-2020 Erythrocyte distribution width (RBC) [Ratio] 14.5 % Normal 11.5-15.[address] [facility] Comment on above: Order Comment: No: D o not add to previous draw Performed By: #### 5 0608 ####[facility] Hematocrit (Bld) [Volume fraction] 38.5 % Low 39.0-50.[address] [facility] Comment on above: Order Comment: No: D o not add to previous draw Performed By: #### 5 0608 ####[facility] Hemoglobin (Bld) [Mass/Vol] 12.5 g/dL Low 13.0-17.[address] [facility] Comment on above: Order Comment: No: D o not add to previous draw Performed By: #### 5 0608 ####[facility] [place] [address], [facility] MCH (RBC) [Entitic mass] 31.7 pg Normal 27.0-33.[address] [facility] Comment on above: Order Comment: No: D o not add to previous draw Performed By: #### 5 0608 ####[facility] [place] [address].[place] [address], [facility] MCHC (RBC) [Mass/Vol] 32.5 g/dL Normal 32.0-35.[address] [facility] Comment on above: Order Comment: No: D o not add to previous draw Performed By: #### 5 0608 ####[facility] [place] [address], [facility] MCV (RBC) [Entitic vol] 97.7 fL Normal 82.0-98.[address] [facility] Comment on above: Order Comment: No: D o not add to previous draw Performed By: #### 5 0608 ####[facility] Nucleated RBC/100 WBC (Bld) [Ratio] 0 % Normal 0-[address] [facility] Comment on above: Order Comment: No: D o not add to previous draw Performed By: #### 5 0608 ####[facility] [place] [address], [facility] PLAT CNT 160 10*3/uL Normal 150-400 [facility] Comment on above: Order Comment: No: D o not add to previous draw Performed By: #### 5 0608 ####[facility] [place] [address], [facility] RBC (Bld) [#/Vol] 3.94 10*6/uL Low 4.20-5.70 [facility] Comment on above: Order Comment: No: D o not add to previous draw Performed By: #### 5 0608 ####[facility] [place] [address], [facility] WBC (Bld) [#/Vol] 26.01 10*3/uL High 4.00-10.[address] [facility] Comment on above: Order Comment: No: D o not add to previous draw Performed By: #### 5 0608 ####[facility] [place] [address], [facility] MAGNESIUM BLOODon 08-13-2021 Magnesium [Mass/Vol] 1.6 mg/dL Low 1.9-2.[address] [facility] Comment on above: Order Comment: No: D o not add to previous draw Performed By: #### 1 0070, 08020, 63389 ####[facility] [place] [address], [place] PHOSPHORUS BLOODon Phosphate [Mass/Vol] 2.3 mg/dL Low 2.5-5.[address] [facility] Comment on above: Order Comment: No: D o not add to previous draw Performed By: #### 1 0070, 85639, 12935 ####[facility] [place] [address], [place] POC GLUCOSE LABon 08-13-2021 Glucose [Mass/Vol] 159 mg/dL High 70-100 [facility] Comment on above: Performed By: #### 8 5499 ####[facility] [place] [address], [place] Glucose [Mass/Vol] 174 mg/dL High 70-100 [facility] Comment on above: Performed By: #### 8 5499 ####[facility] [place] [address], [place] Glucose [Mass/Vol] 172 mg/dL High 70-100 [facility] Comment on above: Performed By: #### 8 5499 ####[facility] [place] [address], [place] Glucose [Mass/Vol] 155 mg/dL High 70-100 [facility] Comment on above: Performed By: #### 8 5499 ####[facility] [place] [address], [place] Glucose [Mass/Vol] 168 mg/dL High 70-100 [facility] Comment on above: Performed By: #### 8 5499 ####[facility] [place] [address], [facility] Glucose [Mass/Vol] 149 mg/dL High 70-100 [facility] Comment on above: Performed By: #### 8 5499 ####[facility] [facility] [place] [address], [facility] BASIC METABOLIC PANELon 12-1 Calcium [Mass/Vol] 8.5 mg/dL Low 8.6-10.3 [facility] Comment on above: Order Comment: No: D o not add to previous draw Performed By: #### 0 0071, 70011, 66607 ####[facility] [place] [address], [facility] Chloride [Moles/Vol] 103 mmol/L Normal 98-[address] [facility] Comment on above: Order Comment: No: D o not add to previous draw Performed By: #### 0 0071, 99200, 48194 ####[facility] [facility] [place] [address], [facility] CO2 [Moles/Vol] 26 mmol/L Normal 21-31 The [facility] Comment on above: Order Comment: No: D o not add to previous draw Performed By: #### 0 0071, 81040, 91466 ####[facility] [facility] [place] [address], [facility] Creatinine [Mass/Vol] 0.79 mg/dL Normal 0.70-1.[address] [facility] Comment on above: Order Comment: No: D o not add to previous draw Performed By: #### 0 0071, 42378, 59780 ####[facility] [place] [address], [facility] GFR/1.73 sq M.predicted among blacks MDRD (S/P/Bld) [Vol rate/Area] mL/min/{1.73_m2} Normal >[address] [facility] Comment on above: Order Comment: No: D o not add to previous draw Result Comment: Calc ulation may not be valid for patients over 70 years Performed By: #### 0 0071, 65103, 46897 ####[facility] [place] [address], [facility] GFR/1.73 sq M.predicted among non-blacks MDRD (S/P/Bld) [Vol rate/Area] mL/min/{1.73_m2} Normal >[address] [facility] Comment on above: Order Comment: No: D o not add to previous draw Result Comment: Calc ulation may not be valid for patients over 70 years Performed By: #### 0 0071, 14652, 18825 ####[facility] [facility] [place] [address], [facility] Glucose [Mass/Vol] 162 mg/dL High 70-100 The [facility] Comment on above: Order Comment: No: D o not add to previous draw Performed By: #### 0 0071, 71813, 90476 ####[facility] [place] [address], [facility] Potassium [Moles/Vol] 3.7 mmol/L Normal 3.5-5.[address] [facility] Comment on above: Order Comment: No: D o not add to previous draw Performed By: #### 0 0071, 06866, 94370 ####[facility] [facility] [place] [address], [facility] Sodium [Moles/Vol] 137 mmol/L Normal 136-145 The [facility] Comment on above: Order Comment: No: D o not add to previous draw Performed By: #### 0 0071, 02437, 92875 ####[facility] [place] [address], [facility] Urea nitrogen [Mass/Vol] 15 mg/dL Normal 7-[address] [facility] Comment on above: Order Comment: No: D o not add to previous draw Performed By: #### 0 0071, 59630, 60949 ####[facility] CBC COMPLETE BLOOD COUNTon 10-13-2020 Erythrocyte distribution width (RBC) [Ratio] 14.5 % Normal 11.5-15.[address] [facility] Comment on above: Order Comment: No: D o not add to previous draw Performed By: #### 5 0608 ####[facility] Hematocrit (Bld) [Volume fraction] 42.4 % Normal 39.0-50.[address] [facility] Comment on above: Order Comment: No: D o not add to previous draw Performed By: #### 5 0608 ####[address] Hemoglobin (Bld) [Mass/Vol] 13.6 g/dL Normal 13.0-17.[address] [facility] Comment on above: Order Comment: No: D o not add to previous draw Performed By: #### 5 0608 ####[facility] MCH (RBC) [Entitic mass] 31.6 pg Normal 27.0-33.[address] [facility] Comment on above: Order Comment: No: D o not add to previous draw Performed By: #### 5 0608 ####[facility] MCHC (RBC) [Mass/Vol] 32.1 g/dL Normal 32.0-35.[address] [facility] Comment on above: Order Comment: No: D o not add to previous draw Performed By: #### 5 0608 ####[address] MCV (RBC) [Entitic vol] 98.4 fL High 82.0-98.[address] [facility] Comment on above: Order Comment: No: D o not add to previous draw Performed By: #### 5 0608 ####[facility] Nucleated RBC/100 WBC (Bld) [Ratio] 0 % Normal 0-[address] [facility] Comment on above: Order Comment: No: D o not add to previous draw Performed By: #### 5 0608 ####[facility] [facility] [address], [facility] PLAT CNT 203 10*3/uL Normal 150-400 [facility] Comment on above: Order Comment: No: D o not add to previous draw Performed By: #### 5 0608 ####[facility] [place] [address], [facility] RBC (Bld) [#/Vol] 4.31 10*6/uL Normal 4.20-5.70 [facility] Comment on above: Order Comment: No: D o not add to previous draw Performed By: #### 5 0608 ####[facility] [place] [address], [facility] WBC (Bld) [#/Vol] 33.31 10*3/uL High 4.00-10.[address] [facility] Comment on above: Order Comment: No: D o not add to previous draw Performed By: #### 5 0608 ####[facility] [place] [address], [facility] MAGNESIUM BLOODon 08-12-2021 Magnesium [Mass/Vol] 1.7 mg/dL Low 1.9-2.[address] [facility] Comment on above: Order Comment: No: D o not add to previous draw Performed By: #### 0 0071, [id number], [id number] ####[facility] [place] [address], [facility] PHOSPHORUS BLOODon Phosphate [Mass/Vol] 3.3 mg/dL Normal 2.5-5.[address] [facility] Comment on above: Order Comment: No: D o not add to previous draw Performed By: #### 0 0071, 16583, 63761 ####[facility] [place] [address], [place] POC GLUCOSE LABon 08-12-2021 Glucose [Mass/Vol] 176 mg/dL High 70-100 [facility] Comment on above: Performed By: #### 8 5499 ####[facility] [place] [address], [place] Glucose [Mass/Vol] 165 mg/dL High 70-100 [facility] Comment on above: Performed By: #### 8 5499 ####[facility] [place] [address], [place] Glucose [Mass/Vol] 153 mg/dL High 70-100 [facility] Comment on above: Performed By: #### 8 5499 ####[facility] [place] [address], [place] Glucose [Mass/Vol] 175 mg/dL High 70-100 [facility] Comment on above: Performed By: #### 8 5499 ####[facility] [place] [address], [place] Glucose [Mass/Vol] 171 mg/dL High 70-100 [facility] Comment on above: Performed By: #### 8 5499 ####[facility] [place] [address], [place] POC GLUCOSE LABon 08-11-2021 Glucose [Mass/Vol] 211 mg/dL High 70-100 The [facility] Comment on above: Performed By: #### 8 5499 ####[facility] [place] [address], [place] Glucose [Mass/Vol] 265 mg/dL High 70-100 The [facility] Comment on above: Performed By: #### 8 5499 ####[facility] [place] [address], [facility] Glucose [Mass/Vol] 106 mg/dL High 70-100 The [facility] Comment on above: Performed By: #### 8 5499 ####[facility] [facility] [place] [address], [facility] BASIC METABOLIC PANELon 11-3 0-2020 Calcium [Mass/Vol] 9.1 mg/dL Normal 8.6-10.3 The [facility] Comment on above: Performed By: #### 0 0071 ####[facility] [place] [address], [facility] Chloride [Moles/Vol] 101 mmol/L Normal 98-[address] [facility] Comment on above: Performed By: #### 0 0071 ####[facility] [facility] [place] [address], [facility] CO2 [Moles/Vol] 27 mmol/L Normal 21-31 The [facility] Comment on above: Performed By: #### 0 0071 ####[facility] [place] [address], [facility] Creatinine [Mass/Vol] 0.92 mg/dL Normal 0.70-1.[address] [facility] Comment on above: Performed By: #### 0 0071 ####[facility] [facility] [place] [address], [facility] GFR/1.73 sq M.predicted among blacks MDRD (S/P/Bld) [Vol rate/Area] mL/min/{1.73_m2} Normal >[address] [facility] Comment on above: Result Comment: Calc ulation may not be valid for patients over 70 years Performed By: #### 0 0071 ####[facility] [place] [address], [facility] GFR/1.73 sq M.predicted among non-blacks MDRD (S/P/Bld) [Vol rate/Area] mL/min/{1.73_m2} Normal >[address] [facility] Comment on above: Result Comment: Calc ulation may not be valid for patients over 70 years Performed By: #### 0 0071 ####[facility] [place] [address], [facility] Glucose [Mass/Vol] 104 mg/dL High 70-100 The [facility] Comment on above: Performed By: #### 0 0071 ####[address] [place] [address], [facility] Potassium [Moles/Vol] 3.5 mmol/L Normal 3.5-5.[address] [facility] Comment on above: Performed By: #### 0 0071 ####[facility] [place] [address], [facility] Sodium [Moles/Vol] 136 mmol/L Normal 136-145 The [facility] Comment on above: Performed By: #### 0 0071 ####[facility] [place] [address], [facility] Urea nitrogen [Mass/Vol] 23 mg/dL Normal 7-[address] [facility] Comment on above: Performed By: #### 0 0071 ####[facility] [place] [address], [facility] CBC W/DIFFon 08-01-2021 ABS IMM GRANS 0.1 10*3/uL Normal 0.0-0.2 The [facility] Comment on above: Performed By: #### 5 0103 ####[facility] [place] [address], [facility] ABS NEUTROPHILS 4.9 10*3/uL Normal 1.6-7.6 The [facility] Comment on above: Performed By: #### 5 0103 ####[facility] [place] [address], [facility] Basophils (Bld) [#/Vol] 0.1 10*3/uL Normal 0.0-0.[address] [facility] Comment on above: Performed By: #### 5 0103 ####[facility] [place] [address], [facility] Basophils/100 WBC (Bld) 0.3 % Normal 0.0-1.[address] [facility] Comment on above: Performed By: #### 5 0103 ####[facility] [facility] [address], [facility] Eosinophils (Bld) [#/Vol] 0.1 10*3/uL Normal 0.0-0.[address] [facility] Comment on above: Performed By: #### 5 0103 ####[facility] [place] [address], [facility] Eosinophils/100 WBC (Bld) 0.2 % Normal 0.0-6.[address] [facility] Comment on above: Performed By: #### 5 0103 ####[facility] [place] [address], [facility] Erythrocyte distribution width (RBC) [Ratio] 14.6 % Normal 11.5-15.[address] [facility] Comment on above: Performed By: #### 3 ####[facility] [place] [address], [facility] Hematocrit (Bld) [Volume fraction] 44.2 % Normal 39.0-50.[address] [facility] Comment on above: Performed By: #### 5 3 ####[facility] [facility] [address], [facility] Hemoglobin (Bld) [Mass/Vol] 14.3 g/dL Normal 13.0-17.[address] [facility] Comment on above: Performed By: #### 5 0103 ####[facility] [place] [address], [facility] IMMATURE GRANS 0.3 % Normal 0.0-1.0 The [facility] Comment on above: Performed By: #### 5 0103 ####[facility] [place] [address].[address] Lymphocytes (Bld) [#/Vol] 20.8 10*3/uL High 1.2-4.[address] [facility] Comment on above: Performed By: #### 5 0103 ####[address] Lymphocytes/100 WBC (Bld) 78.7 % High 20.0-45.[address] [facility] Comment on above: Performed By: #### 5 0103 ####[facility] MCH (RBC) [Entitic mass] 31.8 pg Normal 27.0-33.[address] [facility] Comment on above: Performed By: #### 5 0103 ####[facility] MCHC (RBC) [Mass/Vol] 32.4 g/dL Normal 32.0-35.[address] [facility] Comment on above: Performed By: #### 5 0103 ####[facility] [place] [address], [facility] MCV (RBC) [Entitic vol] 98.4 fL High 82.0-98.[address] [facility] Comment on above: Performed By: #### 5 3 ####[place] [address], [facility] Monocytes (Bld) [#/Vol] 0.6 10*3/uL Normal 0.1-1.0 [facility] Comment on above: Performed By: #### 5 0103 ####[facility] [place] [address], [facility] MONOS 2.2 % Low 5.0-12.0 [facility] Comment on above: Performed By: #### 5 3 ####[facility] Neutrophils/100 WBC (Bld) 18.3 % Low 40.0-72.0 [facility] Comment on above: Performed By: #### 5 3 ####[facility] Nucleated RBC/100 WBC (Bld) [Ratio] 0 % Normal 0-0 [facility] Comment on above: Performed By: #### 5 3 ####[facility] [place] [address], [facility] PLAT CNT 174 10*3/uL Normal 150-400 The [facility] Comment on above: Performed By: #### 5 3 ####[facility] [place] [address], [facility] RBC (Bld) [#/Vol] 4.49 10*6/uL Normal 4.20-5.70 The [facility] Comment on above: Performed By: #### 5 102 ####[facility] [place] [address], [facility] SMUDGE CELLS MANY Normal The [facility] Comment on above: Performed By: #### 5 3 ####[facility] [place] [address], [facility] WBC (Bld) [#/Vol] 26.44 10*3/uL High 4.00-10.[address] [facility] Comment on above: Performed By: #### 5 0103 ####[facility] PROTHROMBIN TIMEon 1 INR Coag (PPP) [Relative time] 0.99 {INR} Normal 0.91-1.[address] [facility] Comment on above: Result Comment: ACCC P RECOMMENDED INR FOR WARFARIN THERAPY CONDITION INRPROPHYLAXIS OF VENOUS THROMBOSIS 2-3(HIGH-RISK SURGERY)TREATMENT OF VENOUS THROMBOSIS 2-3TREATMENT OF PULMONARY EMBOLISM 2-3PREVENTION OF SYSTEMIC EMBOLISM: 2-3 ACUTE MYOCARDIAL INFARCTION TISSUE HEART VALVES VALVULAR HEART DISEASE ATRIAL FIBRILLATION RECURRENT SYSTEMIC EMBOLISMMECHANICAL HEART VALVE 2.5-3.5 FROM: ORAL ANTICOAGULANTS. MECHANISM OF ACTION, CLINICALEFFECTIVENESS, AND OPTIMAL THERAPEUTIC RANGE. [id number]. Performed By: #### 5 6101 ####[facility] PT Coag (PPP) [Time] 13.1 s Normal 12.3-14.[address] [facility] Comment on above: Result Comment: ALL RESULTS MUST BE INTERPRETED WITH RESPECT TO BLOOD DRAWING ARTIFACTOR DILUTION ERROR OF ANTICOAGULANT AT THE TIME OF SAMPLING. Performed By: #### 5 6101 ####[facility] Operative Reporton 1 Operative Report Normal The [facility] POC GLUCOSE LABon 06-21-2021 Glucose [Mass/Vol] 139 mg/dL High 70-100 [facility] Comment on above: Performed By: #### 8 5499 ####[facility] [place] [address], [place] POC GLUCOSE LABon 11-09-2020 Glucose [Mass/Vol] 101 mg/dL High 70-100 [facility] Comment on above: Performed By: #### 8 5499 ####[facility] [place] [address], [place] Glucose [Mass/Vol] 127 mg/dL High 70-100 [facility] Comment on above: Performed By: #### 8 5499 ####[facility] [place] [address], [place] POC GLUCOSE LABon 11-08-2020 Glucose [Mass/Vol] 206 mg/dL High 70-100 [facility] Comment on above: Performed By: #### 8 5499 ####[facility] [place] [address], [place] Glucose [Mass/Vol] 79 mg/dL Normal 70-100 The [facility] Comment on above: Performed By: #### 8 5499 ####[facility] [place] [address], [place] Glucose [Mass/Vol] 186 mg/dL High 70-100 [facility] Comment on above: Performed By: #### 8 5499 ####[facility] [place] [address], [place] Glucose [Mass/Vol] 132 mg/dL High 70-100 The [facility] Comment on above: Performed By: #### 8 5499 ####[facility] [place] [address], [place] BASIC METABOLIC PANELon 03-0 Calcium [Mass/Vol] 8.4 mg/dL Low 8.6-10.3 [facility] Comment on above: Order Comment: No: D o not add to previous draw Performed By: #### 1 69, 69737 ####[facility] [place] [address], [facility] Chloride [Moles/Vol] 104 mmol/L Normal 98-[address] [facility] Comment on above: Order Comment: No: D o not add to previous draw Performed By: #### 1 69, 75332 ####[facility] [place] [address], [facility] CO2 [Moles/Vol] 29 mmol/L Normal 21-31 The [facility] Comment on above: Order Comment: No: D o not add to previous draw Performed By: #### 1 69, 33836 ####[facility] [facility] [address], [facility] Creatinine [Mass/Vol] 0.92 mg/dL Normal 0.70-1.[address] [facility] Comment on above: Order Comment: No: D o not add to previous draw Performed By: #### 1 69, 55186 ####[facility] [facility] [place] [address], [facility] GFR/1.73 sq M.predicted among blacks MDRD (S/P/Bld) [Vol rate/Area] mL/min/{1.73_m2} Normal >[address] [facility] Comment on above: Order Comment: No: D o not add to previous draw Result Comment: Calc ulation may not be valid for patients over 70 years Performed By: #### 1 69, 31587 ####[facility] [facility] [address], [facility] GFR/1.73 sq M.predicted among non-blacks MDRD (S/P/Bld) [Vol rate/Area] mL/min/{1.73_m2} Normal >[address] [facility] Comment on above: Order Comment: No: D o not add to previous draw Result Comment: Calc ulation may not be valid for patients over 70 years Performed By: #### 1 69, 54438 ####[facility] [place] [address], [facility] Glucose [Mass/Vol] 92 mg/dL Normal 70-100 The [facility] Comment on above: Order Comment: No: D o not add to previous draw Performed By: #### 1 69, 46413 ####[facility] [place] [address], [facility] Potassium [Moles/Vol] 3.9 mmol/L Normal 3.5-5.[address] [facility] Comment on above: Order Comment: No: D o not add to previous draw Performed By: #### 1 69, 16730 ####[place] [address] Sodium [Moles/Vol] 138 mmol/L Normal 136-145 The [facility] Comment on above: Order Comment: No: D o not add to previous draw Performed By: #### 1 69, 08697 ####[place] [address] Urea nitrogen [Mass/Vol] 13 mg/dL Normal 7-[address] [facility] Comment on above: Order Comment: No: D o not add to previous draw Performed By: #### 1 69, 84958 ####[facility] [place] [address], [facility] CBC W/DIFFon 11-07-2020 ABS IMM GRANS 0.1 10*3/uL Normal 0.0-0.2 The [facility] Comment on above: Order Comment: No: D o not add to previous draw Performed By: #### 5 0103 ####[facility] [place] [address], [facility] ABS NEUTROPHILS 3.3 10*3/uL Normal 1.6-7.6 The [facility] Comment on above: Order Comment: No: D o not add to previous draw Performed By: #### 5 0103 ####[facility] [place] [address], [facility] Basophils (Bld) [#/Vol] 0.1 10*3/uL Normal 0.0-0.[address] [facility] Comment on above: Order Comment: No: D o not add to previous draw Performed By: #### 5 0103 ####[facility] [place] [address], [facility] Basophils/100 WBC (Bld) 0.3 % Normal 0.0-1.[address] [facility] Comment on above: Order Comment: No: D o not add to previous draw Performed By: #### 5 0103 ####[facility] [facility] [address], [facility] Eosinophils (Bld) [#/Vol] 0.2 10*3/uL Normal 0.0-0.[address] [facility] Comment on above: Order Comment: No: D o not add to previous draw Performed By: #### 5 0103 ####[facility] [place] [address], [facility] Eosinophils/100 WBC (Bld) 0.9 % Normal 0.0-6.[address] [facility] Comment on above: Order Comment: No: D o not add to previous draw Performed By: #### 5 0103 ####[facility] [address] Erythrocyte distribution width (RBC) [Ratio] 14.9 % Normal 11.5-15.[address] [facility] Comment on above: Order Comment: No: D o not add to previous draw Performed By: #### 5 3 ####[facility] [facility] Hematocrit (Bld) [Volume fraction] 31.8 % Low 39.0-50.[address] [facility] Comment on above: Order Comment: No: D o not add to previous draw Performed By: #### 5 0103 ####[facility] [place] [address], [facility] Hemoglobin (Bld) [Mass/Vol] 10.0 g/dL Low 13.0-17.[address] [facility] Comment on above: Order Comment: No: D o not add to previous draw Performed By: #### 5 0103 ####[facility] IMMATURE GRANS 0.5 % Normal 0.0-1.0 The [facility]men [facility] Comment on above: Order Comment: No: D o not add to previous draw Performed By: #### 5 0103 ####[facility] Lymphocytes (Bld) [#/Vol] 20.2 10*3/uL High 1.2-4.[address] [facility] Comment on above: Order Comment: No: D o not add to previous draw Performed By: #### 5 0103 ####[facility] Lymphocytes/100 WBC (Bld) 83.1 % High 20.0-45.[address] [facility] Comment on above: Order Comment: No: D o not add to previous draw Performed By: #### 5 0103 ####[facility] [place] [address], [facility] MCH (RBC) [Entitic mass] 31.6 pg Normal 27.0-33.[address] [facility] Comment on above: Order Comment: No: D o not add to previous draw Performed By: #### 5 3 ####[facility] [place] [id number], [place] MCHC (RBC) [Mass/Vol] 31.4 g/dL Low 32.0-35.[address] [facility] Comment on above: Order Comment: No: D o not add to previous draw Performed By: #### 5 0103 ####[facility] [address] MCV (RBC) [Entitic vol] 100.6 fL High 82.0-98.[address] [facility] Comment on above: Order Comment: No: D o not add to previous draw Performed By: #### 5 3 ####[facility] Monocytes (Bld) [#/Vol] 0.4 10*3/uL Normal 0.1-1.[address] [facility] Comment on above: Order Comment: No: D o not add to previous draw Performed By: #### 5 0103 ####[facility] [address] MONOS 1.6 % Low 5.0-12.[address] [facility] Comment on above: Order Comment: No: D o not add to previous draw Performed By: #### 5 3 ####[facility] Neutrophils/100 WBC (Bld) 13.6 % Low 40.0-72.[address] [facility] Comment on above: Order Comment: No: D o not add to previous draw Performed By: #### 5 3 ####[facility] [address] Nucleated RBC/100 WBC (Bld) [Ratio] 0 % Normal 0-[address] [facility] Comment on above: Order Comment: No: D o not add to previous draw Performed By: #### 5 3 ####[facility] [place] [address], [facility] PLAT CNT 225 10*3/uL Normal 150-400 The [facility] Comment on above: Order Comment: No: D o not add to previous draw Performed By: #### 5 0103 ####[facility] [place] [address], [facility] RBC (Bld) [#/Vol] 3.16 10*6/uL Low 4.20-5.70 The [facility] Comment on above: Order Comment: No: D o not add to previous draw Performed By: #### 5 0103 ####[facility] [address] SMUDGE CELLS MANY PRESENT Normal The [facility] Comment on above: Order Comment: No: D o not add to previous draw Result Comment: This result added by [facility] on 11/07/2020 09:18.AUTO DIF Performed By: #### 5 0103 ####[facility] [place] [address], [facility] WBC (Bld) [#/Vol] 24.33 10*3/uL High 4.00-10.60 [facility] Comment on above: Order Comment: No: D o not add to previous draw Performed By: #### 5 0103 ####[facility] [address] MAGNESIUM BLOODon 11-07-2020 Magnesium [Mass/Vol] 2.0 mg/dL Normal 1.9-2.[address] [facility] Comment on above: Order Comment: No: D o not add to previous draw Performed By: #### 1 0070, 22202 ####[facility] [address] POC GLUCOSE LABon 11-07-2020 Glucose [Mass/Vol] 164 mg/dL High 70-100 The [facility] Comment on above: Performed By: #### 8 5499 ####[facility] [place] [address], [place] Glucose [Mass/Vol] 128 mg/dL High 70-100 The [facility] Comment on above: Performed By: #### 8 5499 ####[facility] [place] [address], [place] Glucose [Mass/Vol] 143 mg/dL High 70-100 The [facility] Comment on above: Performed By: #### 8 5499 ####[facility] [place] [address], [place] Glucose [Mass/Vol] 100 mg/dL Normal 70-100 The [facility] Comment on above: Performed By: #### 8 5499 ####[facility] [place] [address], [place] BASIC METABOLIC PANELon 03-0 Calcium [Mass/Vol] 8.2 mg/dL Low 8.6-10.3 The [facility] Comment on above: Order Comment: No: D o not add to previous draw Performed By: #### 0 0071, [id number] ####[facility] [place] [address], [place] Chloride [Moles/Vol] 105 mmol/L Normal 98-[address] [facility] Comment on above: Order Comment: No: D o not add to previous draw Performed By: #### 0 0071, 21544 ####[facility] [place] [address], [place] CO2 [Moles/Vol] 28 mmol/L Normal 21-31 The [facility] Comment on above: Order Comment: No: D o not add to previous draw Performed By: #### 0 0071, 53805 ####[facility] [place] [address], [place] Creatinine [Mass/Vol] 0.86 mg/dL Normal 0.70-1.[address] [facility] Comment on above: Order Comment: No: D o not add to previous draw Performed By: #### 0 0071, 93604 ####[facility] [place] [address], [facility] GFR/1.73 sq M.predicted among blacks MDRD (S/P/Bld) [Vol rate/Area] mL/min/{1.73_m2} Normal >[address] [facility] Comment on above: Order Comment: No: D o not add to previous draw Result Comment: Calc ulation may not be valid for patients over 70 years Performed By: #### 0 0071, [id number] ####[facility] [place] [address], [facility] GFR/1.73 sq M.predicted among non-blacks MDRD (S/P/Bld) [Vol rate/Area] mL/min/{1.73_m2} Normal >[address] [facility] Comment on above: Order Comment: No: D o not add to previous draw Result Comment: Calc ulation may not be valid for patients over 70 years Performed By: #### 0 0071, 31061 ####[facility] [place] [address], [facility] Glucose [Mass/Vol] 115 mg/dL High 70-100 The [facility] Comment on above: Order Comment: No: D o not add to previous draw Performed By: #### 0 0071, 47179 ####[facility] [place] [address], [place] Potassium [Moles/Vol] 4.2 mmol/L Normal 3.5-5.[address] [facility] Comment on above: Order Comment: No: D o not add to previous draw Performed By: #### 0 0071, 15236 ####[facility] [place] [address], [place] Sodium [Moles/Vol] 137 mmol/L Normal 136-145 [facility] Comment on above: Order Comment: No: D o not add to previous draw Performed By: #### 0 0071, 67277 ####[facility] [address] Urea nitrogen [Mass/Vol] 10 mg/dL Normal 7-[address] [facility] Comment on above: Order Comment: No: D o not add to previous draw Performed By: #### 0 0071, 43604 ####[facility] [place] [address], [facility] CBC W/DIFFon 11-06-2020 ABS IMM GRANS 0.2 10*3/uL Normal 0.0-0.2 The [facility] Comment on above: Order Comment: No: D o not add to previous draw Performed By: #### 5 0103 ####[facility] [address] ABS NEUTROPHILS 3.8 10*3/uL Normal 1.6-7.6 The [facility] Comment on above: Order Comment: No: D o not add to previous draw Performed By: #### 5 0103 ####[facility] [place] [address], [facility] Basophils (Bld) [#/Vol] 0.1 10*3/uL Normal 0.0-0.[address] [facility] Comment on above: Order Comment: No: D o not add to previous draw Performed By: #### 5 0103 ####[facility] [place] [address], [facility] Basophils/100 WBC (Bld) 0.3 % Normal 0.0-1.[address] [facility] Comment on above: Order Comment: No: D o not add to previous draw Performed By: #### 5 3 ####[facility] [place] [address], [facility] Eosinophils (Bld) [#/Vol] 0.2 10*3/uL Normal 0.0-0.[address] [facility] Comment on above: Order Comment: No: D o not add to previous draw Performed By: #### 5 0103 ####[facility] [address] Eosinophils/100 WBC (Bld) 0.7 % Normal 0.0-6.[address] [facility] Comment on above: Order Comment: No: D o not add to previous draw Performed By: #### 5 0103 ####[facility] [address] Erythrocyte distribution width (RBC) [Ratio] 14.9 % Normal 11.5-15.[address] [facility] Comment on above: Order Comment: No: D o not add to previous draw Performed By: #### 5 0103 ####[facility] [address] Hematocrit (Bld) [Volume fraction] 32.5 % Low 39.0-50.[address] [facility] Comment on above: Order Comment: No: D o not add to previous draw Performed By: #### 5 0103 ####[facility] [address] Hemoglobin (Bld) [Mass/Vol] 10.6 g/dL Low 13.0-17.[address] [facility] Comment on above: Order Comment: No: D o not add to previous draw Performed By: #### 5 0103 ####[facility] [place] [address], [facility] IMMATURE GRANS 0.7 % Normal 0.0-1.0 The [facility] Comment on above: Order Comment: No: D o not add to previous draw Performed By: #### 5 0103 ####[facility] [place] [address], [facility] Lymphocytes (Bld) [#/Vol] 23.3 10*3/uL High 1.2-4.[address] [facility] Comment on above: Order Comment: No: D o not add to previous draw Performed By: #### 5 0103 ####[facility] [address] Lymphocytes/100 WBC (Bld) 81.5 % High 20.0-45.[address] [facility] Comment on above: Order Comment: No: D o not add to previous draw Performed By: #### 5 0103 ####[facility] [address] MCH (RBC) [Entitic mass] 32.2 pg Normal 27.0-33.[address] [facility] Comment on above: Order Comment: No: D o not add to previous draw Performed By: #### 5 3 ####[facility] [address] MCHC (RBC) [Mass/Vol] 32.6 g/dL Normal 32.0-35.[address] [facility] Comment on above: Order Comment: No: D o not add to previous draw Performed By: #### 5 0103 ####[facility] [address] MCV (RBC) [Entitic vol] 98.8 fL High 82.0-98.[address] [facility] Comment on above: Order Comment: No: D o not add to previous draw Performed By: #### 5 0103 ####[facility] [place] [address], [facility] Monocytes (Bld) [#/Vol] 1.0 10*3/uL Normal 0.1-1.[address] [facility] Comment on above: Order Comment: No: D o not add to previous draw Performed By: #### 5 3 ####[facility] [place] [address], [facility] MONOS 3.5 % Low 5.0-12.[address] [facility] Comment on above: Order Comment: No: D o not add to previous draw Performed By: #### 5 0103 ####[facility] [facility].[place] [id number], [facility] Neutrophils/100 WBC (Bld) 13.3 % Low 40.0-72.[address] [facility] Comment on above: Order Comment: No: D o not add to previous draw Performed By: #### 5 0103 ####[facility] [place] [address], [facility] Nucleated RBC/100 WBC (Bld) [Ratio] 0 % Normal 0-[address] [facility] Comment on above: Order Comment: No: D o not add to previous draw Performed By: #### 5 0103 ####[facility] [place] [address], [facility] PLAT CNT 232 10*3/uL Normal 150-400 The [facility] Comment on above: Order Comment: No: D o not add to previous draw Performed By: #### 5 0103 ####[facility] [place] [address], [facility] RBC (Bld) [#/Vol] 3.29 10*6/uL Low 4.20-5.70 The [facility] Comment on above: Order Comment: No: D o not add to previous draw Performed By: #### 5 0103 ####[facility] .[place] [id number], [facility] SMUDGE CELLS MANY Normal The [facility] Comment on above: Order Comment: No: D o not add to previous draw Performed By: #### 5 0103 ####[facility] [id number], [facility] WBC (Bld) [#/Vol] 28.54 10*3/uL High 4.00-10.[address] [facility] Comment on above: Order Comment: No: D o not add to previous draw Performed By: #### 5 0103 ####[facility] [place] [address], [facility] MAGNESIUM BLOODon 11-06-2020 Magnesium [Mass/Vol] 2.1 mg/dL Normal 1.9-2.[address] [facility] Comment on above: Order Comment: No: D o not add to previous draw Performed By: #### 0 0071, 43895 ####[facility] [place] [address], [place] POC GLUCOSE LABon 11-06-2020 Glucose [Mass/Vol] 155 mg/dL High 70-100 [facility] Comment on above: Performed By: #### 8 5499 ####[facility] [place] [address], [place] Glucose [Mass/Vol] 161 mg/dL High 70-100 [facility] Comment on above: Performed By: #### 8 5499 ####[facility] [place] [address], [place] Glucose [Mass/Vol] 118 mg/dL High 70-100 The [facility] Comment on above: Performed By: #### 8 5499 ####[facility] [place] [address], [place] Glucose [Mass/Vol] 119 mg/dL High 70-100 [facility] Comment on above: Performed By: #### 8 5499 ####[facility] [place] [address], [place] BASIC METABOLIC PANELon Calcium [Mass/Vol] 8.2 mg/dL Low 8.6-10.3 The [facility] Comment on above: Order Comment: No: D o not add to previous drawNURSE DRAW PATTY MOLINA Performed By: #### 0 0071, 33375 ####[facility] [place] [address], [facility] Chloride [Moles/Vol] 106 mmol/L Normal 98-[address] [facility] Comment on above: Order Comment: No: D o not add to previous drawNURSE DRAW RN JESSE Performed By: #### 0 0071, 65642 ####[facility] [place] [address], [facility] CO2 [Moles/Vol] 25 mmol/L Normal 21-31 The [facility] Comment on above: Order Comment: No: D o not add to previous drawNURSE DRAW RN JESSE Performed By: #### 0 0071, 84701 ####[facility] [place] [address], [facility] Creatinine [Mass/Vol] 0.84 mg/dL Normal 0.70-1.[address] [facility] Comment on above: Order Comment: No: D o not add to previous drawNURSE DRAW RN JESSE Performed By: #### 0 0071, 56545 ####[facility] [place] [address], [facility] GFR/1.73 sq M.predicted among blacks MDRD (S/P/Bld) [Vol rate/Area] mL/min/{1.73_m2} Normal >[address] [facility] Comment on above: Order Comment: No: D o not add to previous drawNURSE DRAW RN JESSE Result Comment: Calc ulation may not be valid for patients over 70 years Performed By: #### 0 0071, 42678 ####[facility] [place] [address], [facility] GFR/1.73 sq M.predicted among non-blacks MDRD (S/P/Bld) [Vol rate/Area] mL/min/{1.73_m2} Normal >[address] [facility] Comment on above: Order Comment: No: D o not add to previous drawNURSE DRAW RN JESSE Result Comment: Calc ulation may not be valid for patients over 70 years Performed By: #### 0 0071, 14402 ####[facility] [place] [address], [facility] Glucose [Mass/Vol] 134 mg/dL High 70-100 The [facility] Comment on above: Order Comment: No: D o not add to previous drawNURSE DRAW RN JESSE Performed By: #### 0 0071, 38190 ####[facility] [place] [address], [facility] Potassium [Moles/Vol] 4.0 mmol/L Normal 3.5-5.[address] [facility] Comment on above: Order Comment: No: D o not add to previous drawNURSE DRAW RN JESSE Performed By: #### 0 0071, 14277 ####[facility] Sodium [Moles/Vol] 136 mmol/L Normal 136-145 [facility] Comment on above: Order Comment: No: D o not add to previous drawNURSE DRAW RN JESSE Performed By: #### 0 0071, 41215 ####[facility] [address] Urea nitrogen [Mass/Vol] 9 mg/dL Normal 7-[address] [facility] Comment on above: Order Comment: No: D o not add to previous drawNURSE DRAW RN JESSE Performed By: #### 0 0071, 37477 ####[facility] [place] [address], [facility] CBC W/DIFFon 11-05-2020 ABS IMM GRANS 0.2 10*3/uL Normal 0.0-0.2 The [facility] Comment on above: Order Comment: No: D o not add to previous drawNURSE DRAW RN JESSE Performed By: #### 5 0103 ####[facility] [address] ABS NEUTROPHILS 4.1 10*3/uL Normal 1.6-7.6 The [facility] Comment on above: Order Comment: No: D o not add to previous drawNURSE DRAW RN JESSE Performed By: #### 5 0103 ####[facility] [place] [address], [facility] Basophils (Bld) [#/Vol] 0.1 10*3/uL Normal 0.0-0.[address] [facility] Comment on above: Order Comment: No: D o not add to previous drawNURSE DRAW RN JESSE Performed By: #### 5 3 ####[facility] [place] [address], [facility] Basophils/100 WBC (Bld) 0.3 % Normal 0.0-1.[address] [facility] Comment on above: Order Comment: No: D o not add to previous drawNURSE DRAW RN JESSE Performed By: #### 5 3 ####[facility] [place] [address], [facility] Eosinophils (Bld) [#/Vol] 0.2 10*3/uL Normal 0.0-0.[address] [facility] Comment on above: Order Comment: No: D o not add to previous drawNURSE DRAW RN JESSE Performed By: #### 5 3 ####[facility] [place] [address], [facility] Eosinophils/100 WBC (Bld) 0.7 % Normal 0.0-6.[address] [facility] Comment on above: Order Comment: No: D o not add to previous drawNURSE DRAW RN JESSE Performed By: #### 5 3 ####[facility] [address] Erythrocyte distribution width (RBC) [Ratio] 14.8 % Normal 11.5-15.[address] [facility] Comment on above: Order Comment: No: D o not add to previous drawNURSE DRAW RN JESSE Performed By: #### 5 3 ####[facility] [address] Hematocrit (Bld) [Volume fraction] 32.3 % Low 39.0-50.[address] [facility] Comment on above: Order Comment: No: D o not add to previous drawNURSE DRAW RN JESSE Performed By: #### 5 3 ####[facility] [address] Hemoglobin (Bld) [Mass/Vol] 10.4 g/dL Low 13.0-17.[address] [facility] Comment on above: Order Comment: No: D o not add to previous drawNURSE DRAW RN JESSE Performed By: #### 5 102 ####[facility] [address] IMMATURE GRANS 0.6 % Normal 0.0-1.0 The [facility] Comment on above: Order Comment: No: D o not add to previous drawNURSE DRAW RN JESSE Performed By: #### 5 3 ####[facility] [address] Lymphocytes (Bld) [#/Vol] 22.1 10*3/uL High 1.2-4.[address] [facility] Comment on above: Order Comment: No: D o not add to previous drawNURSE DRAW RN JESSE Performed By: #### 5 3 ####[facility] [address] Lymphocytes/100 WBC (Bld) 82.1 % High 20.0-45.[address] [facility] Comment on above: Order Comment: No: D o not add to previous drawNURSE DRAW RN JESSE Performed By: #### 5 3 ####[facility] [address] MCH (RBC) [Entitic mass] 31.9 pg Normal 27.0-33.[address] [facility] Comment on above: Order Comment: No: D o not add to previous drawNURSE DRAW RN JESSE Performed By: #### 5 3 ####[facility] [address] MCHC (RBC) [Mass/Vol] 32.2 g/dL Normal 32.0-35.[address] [facility] Comment on above: Order Comment: No: D o not add to previous drawNURSE DRAW RN JESSE Performed By: #### 5 3 ####[facility] [address] MCV (RBC) [Entitic vol] 99.1 fL High 82.0-98.[address] [facility] Comment on above: Order Comment: No: D o not add to previous drawNURSE DRAW RN JESSE Performed By: #### 5 102 ####[facility] [address] Monocytes (Bld) [#/Vol] 0.3 10*3/uL Normal 0.1-1.[address] [facility] Comment on above: Order Comment: No: D o not add to previous drawNURSE DRAW RN JESSE Performed By: #### 5 102 ####[facility] [address] MONOS 1.1 % Low 5.0-12.[address] [facility] Comment on above: Order Comment: No: D o not add to previous drawNURSE DRAW RN JESSE Performed By: #### 5 102 ####[facility] [address] Neutrophils/100 WBC (Bld) 15.2 % Low 40.0-72.[address] [facility] Comment on above: Order Comment: No: D o not add to previous drawNURSE DRAW RN JESSE Performed By: #### 5 3 ####[facility] [place] [address], [facility] Nucleated RBC/100 WBC (Bld) [Ratio] 0 % Normal 0-[address] [facility] Comment on above: Order Comment: No: D o not add to previous drawNURSE DRAW RN JESSE Performed By: #### 5 0103 ####[facility] [place] [address], [facility] PLAT CNT 221 10*3/uL Normal 150-400 The [facility] Comment on above: Order Comment: No: D o not add to previous drawNURSE DRAW RN JESSE Performed By: #### 5 0103 ####[address] [place] [address], [facility] RBC (Bld) [#/Vol] 3.26 10*6/uL Low 4.20-5.70 The [facility] Comment on above: Order Comment: No: D o not add to previous drawNURSE DRAW RN JESSE Performed By: #### 5 0103 ####[facility] [address] SMUDGE CELLS Many Normal The [facility] Comment on above: Order Comment: No: D o not add to previous drawNURSE DRAW RN JESSE Performed By: #### 5 0103 ####[facility] [place] [address], [facility] WBC (Bld) [#/Vol] 26.95 10*3/uL High 4.00-10.[address] [facility] Comment on above: Order Comment: No: D o not add to previous drawNURSE DRAW RN JESSE Performed By: #### 5 0103 ####[facility] [place] [address], [facility] MAGNESIUM BLOODon 11-05-2020 Magnesium [Mass/Vol] 1.8 mg/dL Low 1.9-2.[address] [facility] Comment on above: Order Comment: No: D o not add to previous drawNURSE DRAW RN JESSE Performed By: #### 0 0071, 65297 ####[facility] [place] [address], [facility] POC GLUCOSE LABon 11-05-2020 Glucose [Mass/Vol] 123 mg/dL High 70-100 [facility] Comment on above: Performed By: #### 8 5499 ####[facility] [place] [address], [facility] Glucose [Mass/Vol] 132 mg/dL High 70-100 [facility] Comment on above: Performed By: #### 8 5499 ####[facility] [place] [address], [facility] Glucose [Mass/Vol] 164 mg/dL High 70-100 [facility] Comment on above: Performed By: #### 8 5499 ####[facility] [place] [address], [facility] Glucose [Mass/Vol] 129 mg/dL High 70-100 [facility] Comment on above: Performed By: #### 8 5499 ####[facility] [place] [address], [facility] APTTon 11-04-2020 aPTT Coag (Bld) [Time] 30.1 s Normal 25.0-35.[address] [facility] Comment on above: Order Comment: Yes: Add to Previous draw if ableNurse draw Result Comment: ALL RESULTS MUST BE INTERPRETED WITH RESPECT TO BLOOD DRAWING ARTIFACTOR DILUTION ERROR OF ANTICOAGULANT AT THE TIME OF SAMPLING.THE APTT SHOULD NOT BE USED TO MONITOR UNFRACTIONATED HEPARIN THERAPY, THIS LABORATORY NO LONGER HAS AN ESTABLISHED THERAPEUTIC RANGE BASEDON THE APTT. IT IS RECOMMENDED THAT THE [facility] - HEPARIN ASSAY (ANTI-XAACTIVITY) BE USED FOR THIS PURPOSE. Performed By: #### 5 6101, 80497 ####[facility] [place] [address], [facility] BASIC METABOLIC PANELon 03-0 Calcium [Mass/Vol] 8.2 mg/dL Low 8.6-10.3 [facility] Comment on above: Order Comment: No: D o not add to previous drawNurse draw Performed By: #### 9 9909, 82923, 74283, 43489, 47079 ####[facility] [place] [address], [facility] Chloride [Moles/Vol] 104 mmol/L Normal 98-[address] [facility] Comment on above: Order Comment: No: D o not add to previous drawNurse draw Performed By: #### 9 9909, 52779, 34254, 99390, 42768 ####[facility] [place] [address], [facility] CO2 [Moles/Vol] 27 mmol/L Normal 21-31 [facility] Comment on above: Order Comment: No: D o not add to previous drawNurse draw Performed By: #### 9 9909, 10592, 98607, 69429, 67769 ####[facility] [place] [address], [facility] Creatinine [Mass/Vol] 0.86 mg/dL Normal 0.70-1.[address] [facility] Comment on above: Order Comment: No: D o not add to previous drawNurse draw Performed By: #### 9 9909, 27701, 95750, 72158, 14487 ####[facility] [place] [address], [facility] GFR/1.73 sq M.predicted among blacks MDRD (S/P/Bld) [Vol rate/Area] mL/min/{1.73_m2} Normal >[address] [facility] Comment on above: Order Comment: No: D o not add to previous drawNurse draw Result Comment: Calc ulation may not be valid for patients over 70 years Performed By: #### 9 9909, 49683, 61639, 28980, 58747 ####[facility] [place] [address], [facility] GFR/1.73 sq M.predicted among non-blacks MDRD (S/P/Bld) [Vol rate/Area] mL/min/{1.73_m2} Normal >[address] [facility] Comment on above: Order Comment: No: D o not add to previous drawNurse draw Result Comment: Calc ulation may not be valid for patients over 70 years Performed By: #### 9 9909, 68644, 93595, 45697, 64384 ####[facility] [place] [address], [facility] Glucose [Mass/Vol] 140 mg/dL High 70-100 [facility] Comment on above: Order Comment: No: D o not add to previous drawNurse draw Performed By: #### 9 9909, 98941, 85104, 26763, 10952 ####[facility] [place] [address], [facility] Potassium [Moles/Vol] 4.1 mmol/L Normal 3.5-5.[address] [facility] Comment on above: Order Comment: No: D o not add to previous drawNurse draw Performed By: #### 9 9909, 45362, 79633, 46797, 19251 ####[facility] [place] [address], [facility] Sodium [Moles/Vol] 136 mmol/L Normal 136-145 [facility] Comment on above: Order Comment: No: D o not add to previous drawNurse draw Performed By: #### 9 9909, 54675, 42639, 65257, 99187 ####[facility] [id number], [facility] Urea nitrogen [Mass/Vol] 12 mg/dL Normal 7-[address] [facility] Comment on above: Order Comment: No: D o not add to previous drawNurse draw Performed By: #### 9 9909, 92321, 54912, 50236, 00865 ####[facility] [address] CBC COMPLETE BLOOD COUNTon 0 11-04-2020 Erythrocyte distribution width (RBC) [Ratio] 14.7 % Normal 11.5-15.[address] [facility] Comment on above: Order Comment: No: D o not add to previous drawNurse draw Performed By: #### 5 0608 ####[facility] [address] Hematocrit (Bld) [Volume fraction] 33.5 % Low 39.0-50.[address] [facility] Comment on above: Order Comment: No: D o not add to previous drawNurse draw Performed By: #### 5 0608 ####[place] [address] [address] Hemoglobin (Bld) [Mass/Vol] 10.9 g/dL Low 13.0-17.[address] [facility] Comment on above: Order Comment: No: D o not add to previous drawNurse draw Performed By: #### 5 0608 ####[place] [address] [address] MCH (RBC) [Entitic mass] 31.9 pg Normal 27.0-33.[address] [facility] Comment on above: Order Comment: No: D o not add to previous drawNurse draw Performed By: #### 5 0608 ####[facility] [address] MCHC (RBC) [Mass/Vol] 32.5 g/dL Normal 32.0-35.[address] [facility] Comment on above: Order Comment: No: D o not add to previous drawNurse draw Performed By: #### 5 0608 ####[address] MCV (RBC) [Entitic vol] 98.0 fL Normal 82.0-98.[address] [facility] Comment on above: Order Comment: No: D o not add to previous drawNurse draw Performed By: #### 5 0608 ####[facility] [place] [address], [facility] Nucleated RBC/100 WBC (Bld) [Ratio] 0 % Normal 0-[address] [facility] Comment on above: Order Comment: No: D o not add to previous drawNurse draw Performed By: #### 5 0608 ####[facility] [place] [address], [facility] PLAT CNT 219 10*3/uL Normal 150-400 The [facility] Comment on above: Order Comment: No: D o not add to previous drawNurse draw Performed By: #### 5 0608 ####[facility] [place] [address], [facility] RBC (Bld) [#/Vol] 3.42 10*6/uL Low 4.20-5.70 The [facility] Comment on above: Order Comment: No: D o not add to previous drawNurse draw Performed By: #### 5 0608 ####[facility] [place] [address], [facility] WBC (Bld) [#/Vol] 28.62 10*3/uL High 4.00-10.[address] [facility] Comment on above: Order Comment: No: D o not add to previous drawNurse draw Performed By: #### 5 0608 ####[facility] [place] [address], [facility] LIVER BATTERYon 11-04-2020 Albumin [Mass/Vol] 3.2 g/dL Low 3.5-5.7 The [facility] Comment on above: Order Comment: Yes: Add to Previous draw if ableNurse draw Performed By: #### 9 9909, 56933, 98229, 05445, 62942 ####[facility] [place] [address], [facility] ALKALINE PHOSPH 62 IU/L Normal 34-104 The [facility] Comment on above: Order Comment: Yes: Add to Previous draw if ableNurse draw Performed By: #### 9 9909, 25655, 42294, 49918, 24692 ####[facility] [place] [address], [facility] ALT [Catalytic activity/Vol] 58 U/L High 7-[address] [facility] Comment on above: Order Comment: Yes: Add to Previous draw if ableNurse draw Performed By: #### 9 9909, 85906, 97282, 84022, 57201 ####[facility] [address] AST [Catalytic activity/Vol] 15 U/L Normal 13-39 [facility] Comment on above: Order Comment: Yes: Add to Previous draw if ableNurse draw Performed By: #### 9 9909, 70627, 21041, 63274, 69727 ####[facility] [place] [address], [facility] Bilirubin [Mass/Vol] 0.5 mg/dL Normal 0.3-1.[address] [facility] Comment on above: Order Comment: Yes: Add to Previous draw if ableNurse draw Performed By: #### 9 9909, 61388, 39978, 76615, 44604 ####[facility] [place] [address], [facility] Bilirubin.direct [Mass/Vol] 0.1 mg/dL Normal 0.0-0.[address] [facility] Comment on above: Order Comment: Yes: Add to Previous draw if ableNurse draw Performed By: #### 9 9909, 41647, 17637, 32306, 98484 ####[facility] [place] [address], [place] Protein [Mass/Vol] 5.3 g/dL Low 6.0-8.3 [facility] Comment on above: Order Comment: Yes: Add to Previous draw if ableNurse draw Performed By: #### 9 9909, 52106, 00360, 29530, 54789 ####[facility] [place] [address], [place] MAGNESIUM BLOODon 11-04-2020 Magnesium [Mass/Vol] 1.9 mg/dL Normal 1.9-2.[address] [facility] Comment on above: Order Comment: Yes: Add to Previous draw if ableNurse draw Performed By: #### 9 9909, 71321, 16359, 79098, 82631 ####[facility] [place] [address], [place] PHOSPHORUS BLOODon Phosphate [Mass/Vol] 2.9 mg/dL Normal 2.5-5.[address] [facility] Comment on above: Order Comment: Yes: Add to Previous draw if ableNurse draw Performed By: #### 9 9909, 00849, 38940, 73925, 23927 ####[facility] [place] [address], [place] POC GLUCOSE LABon 11-04-2020 Glucose [Mass/Vol] 115 mg/dL High 70-100 The [facility] Comment on above: Performed By: #### 8 5499 ####[facility] [place] [address], [place] Glucose [Mass/Vol] 120 mg/dL High 70-100 [facility] Comment on above: Performed By: #### 8 5499 ####[facility] [place] [address], [place] Glucose [Mass/Vol] 134 mg/dL High 70-100 The [facility] Comment on above: Performed By: #### 8 5499 ####[facility] [place] [address], [place] Glucose [Mass/Vol] 142 mg/dL High 70-100 [facility] Comment on above: Performed By: #### 8 5499 ####[facility] [address] PROTHROMBIN TIMEon 1 INR Coag (PPP) [Relative time] 1.15 {INR} Normal 0.91-1.[address] [facility] Comment on above: Order Comment: Yes: Add to Previous draw if ableNurse draw Result Comment: ACCC P RECOMMENDED INR FOR WARFARIN THERAPY CONDITION INRPROPHYLAXIS OF VENOUS THROMBOSIS 2-3(HIGH-RISK SURGERY)TREATMENT OF VENOUS THROMBOSIS 2-3TREATMENT OF PULMONARY EMBOLISM 2-3PREVENTION OF SYSTEMIC EMBOLISM: 2-3 ACUTE MYOCARDIAL INFARCTION TISSUE HEART VALVES VALVULAR HEART DISEASE ATRIAL FIBRILLATION RECURRENT SYSTEMIC EMBOLISMMECHANICAL HEART VALVE 2.5-3.5 FROM: ORAL ANTICOAGULANTS. MECHANISM OF ACTION, CLINICALEFFECTIVENESS, AND OPTIMAL THERAPEUTIC RANGE. [id number]. Performed By: #### 5 6101, 51027 ####[facility] [place] [address], [facility] PT Coag (PPP) [Time] 14.7 s Normal 12.3-14.[address] [facility] Comment on above: Order Comment: Yes: Add to Previous draw if ableNurse draw Result Comment: ALL RESULTS MUST BE INTERPRETED WITH RESPECT TO BLOOD DRAWING ARTIFACTOR DILUTION ERROR OF ANTICOAGULANT AT THE TIME OF SAMPLING. Performed By: #### 5 6101, 90051 ####[facility] TRIGLYCERIDES BLOODon 2020 Triglyceride [Mass/Vol] 157 mg/dL High 40-[address] [facility] Comment on above: Order Comment: Yes: Add to Previous draw if ableNurse draw Result Comment: TRIG LYCERIDE REFERENCE RANGE:20 YEARS AND OLDER CARDIOVASCULAR RISKLESS THAN 150 mg/dl LOW [id number] TO 199 mg/dl BORDERLINE [id number] mg/dl AND GREATER HIGH RISK Performed By: #### 9 9909, 05478, 41593, 34283, 71015 ####[facility] *BLOOD CULTUREon 11-03-2020 *BLOOD CULTURE Clinical Report: (D) Specimen: BLOOD CULTURE Collected: 11/03/2020 14:01 Status: Final Last Updated: 11/08/2020 14:40 (1) At appt per log book CULT RES (Final) No Growth Day [address] [facility] Comment on above: Order Comment: At ap pt per log book Performed By: #### 3 0313 ####[facility] [address] *BLOOD CULTURE Clinical Report: (D) Specimen: BLOOD CULTURE Collected: 11/03/2020 13:36 Status: Final Last Updated: 11/08/2020 14:40 (1) At appt per log book CULT RES (Final) No Growth Day 5 Normal [facility] Comment on above: Order Comment: At ap pt per log book Performed By: #### 3 0313 ####[facility] *MRSA/MSSA DNA NASALon 11-03 *MRSA/MSSA DNA NASAL Clinical Report: (D ) Specimen: NASAL SWAB Collected: 11/03/2020 12:27 Status: Final Last Updated: 11/04/2020 12:54 MSSA DNA (Final) Negative MRSA DNA (Final) Negative Normal [facility] Comment on above: Performed By: #### 3 1595 ####[facility] [place] [address], [facility] BASIC METABOLIC PANELon 03-0 Calcium [Mass/Vol] 8.3 mg/dL Low 8.6-10.3 [facility] Comment on above: Order Comment: No: D o not add to previous draw Performed By: #### 1 69, 77180 ####[facility] [address], [facility] Chloride [Moles/Vol] 103 mmol/L Normal 98-[address] [facility] Comment on above: Order Comment: No: D o not add to previous draw Performed By: #### 1 69, 78272 ####[facility] [place] [address], [facility] CO2 [Moles/Vol] 25 mmol/L Normal 21-31 [facility] Comment on above: Order Comment: No: D o not add to previous draw Performed By: #### 1 69, 80354 ####[facility] [place] [address], [facility] Creatinine [Mass/Vol] 0.93 mg/dL Normal 0.70-1.[address] [facility] Comment on above: Order Comment: No: D o not add to previous draw Performed By: #### 1 69, 47183 ####[address] [place] [address], [facility] GFR/1.73 sq M.predicted among blacks MDRD (S/P/Bld) [Vol rate/Area] mL/min/{1.73_m2} Normal >[address] [facility] Comment on above: Order Comment: No: D o not add to previous draw Result Comment: Calc ulation may not be valid for patients over 70 years Performed By: #### 1 69, 03984 ####[facility] [place] [address], [place] GFR/1.73 sq M.predicted among non-blacks MDRD (S/P/Bld) [Vol rate/Area] mL/min/{1.73_m2} Normal >[address] [facility] Comment on above: Order Comment: No: D o not add to previous draw Result Comment: Calc ulation may not be valid for patients over 70 years Performed By: #### 1 69, 86952 ####[facility] [place] [address], [facility] Glucose [Mass/Vol] 147 mg/dL High 70-100 [facility] Comment on above: Order Comment: No: D o not add to previous draw Performed By: #### 1 69, 94395 ####[facility] [place] [address], [facility] Potassium [Moles/Vol] 3.8 mmol/L Normal 3.5-5.[address] [facility] Comment on above: Order Comment: No: D o not add to previous draw Performed By: #### 1 69, 52830 ####[facility] [place] [address], [facility] Sodium [Moles/Vol] 136 mmol/L Normal 136-145 [facility] Comment on above: Order Comment: No: D o not add to previous draw Performed By: #### 1 69, 50083 ####[facility] [place] [address], [facility] Urea nitrogen [Mass/Vol] 15 mg/dL Normal 7-[address] [facility] Comment on above: Order Comment: No: D o not add to previous draw Performed By: #### 1 69, 74700 ####[facility] [place] [address], [facility] CBC COMPLETE BLOOD COUNTon 0 11-03-2020 Erythrocyte distribution width (RBC) [Ratio] 14.9 % Normal 11.5-15.[address] [facility] Comment on above: Order Comment: No: D o not add to previous draw Performed By: #### 5 0608 ####[facility] [address] Hematocrit (Bld) [Volume fraction] 39.3 % Normal 39.0-50.[address] [facility] Comment on above: Order Comment: No: D o not add to previous draw Performed By: #### 5 0608 ####[facility] [address] Hemoglobin (Bld) [Mass/Vol] 12.0 g/dL Low 13.0-17.[address] [facility] Comment on above: Order Comment: No: D o not add to previous draw Performed By: #### 5 0608 ####[address] MCH (RBC) [Entitic mass] 32.0 pg Normal 27.0-33.[address] [facility] Comment on above: Order Comment: No: D o not add to previous draw Performed By: #### 5 0608 ####[facility] [place] [address] MCHC (RBC) [Mass/Vol] 30.5 g/dL Low 32.0-35.[address] [facility] Comment on above: Order Comment: No: D o not add to previous draw Performed By: #### 5 0608 ####[address] MCV (RBC) [Entitic vol] 104.8 fL High 82.0-98.[address] [facility] Comment on above: Order Comment: No: D o not add to previous draw Performed By: #### 5 0608 ####[address] Nucleated RBC/100 WBC (Bld) [Ratio] 0 % Normal 0-[address] [facility] Comment on above: Order Comment: No: D o not add to previous draw Performed By: #### 5 0608 ####[facility] [place] [address], [facility] PLAT CNT 208 10*3/uL Normal 150-400 [facility] Comment on above: Order Comment: No: D o not add to previous draw Performed By: #### 5 0608 ####[facility] [place] [address], [facility] RBC (Bld) [#/Vol] 3.75 10*6/uL Low 4.20-5.70 [facility] Comment on above: Order Comment: No: D o not add to previous draw Performed By: #### 5 0608 ####[facility] [place] [address], [facility] WBC (Bld) [#/Vol] 26.14 10*3/uL High 4.00-10.[address] 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 MAGNESIUM BLOODon 11-03-2020 Magnesium [Mass/Vol] 2.0 mg/dL Normal 1.9-2.[address] [facility] Comment on above: Order Comment: No: D o not add to previous draw Performed By: #### 1 0070, 11882 ####[facility] [place] [address], [facility] PHOSPHORUS BLOODon Phosphate [Mass/Vol] 2.8 mg/dL Normal 2.5-5.[address] [facility] Comment on above: Order Comment: Yes: Add to Previous draw if able Performed By: #### 4 1000 ####[facility] [place] [address], [place] POC GLUCOSE LABon 11-03-2020 Glucose [Mass/Vol] 120 mg/dL High 70-100 [facility] Comment on above: Performed By: #### 8 5499 ####[facility] [place] [address], [place] Glucose [Mass/Vol] 141 mg/dL High 70-100 [facility] Comment on above: Performed By: #### 8 5499 ####[facility] [place] [address], [place] Glucose [Mass/Vol] 77 mg/dL Normal 70-100 [facility] Comment on above: Performed By: #### 8 5499 ####[facility] [place] [address], [place] Glucose [Mass/Vol] 181 mg/dL High 70-100 [facility] Comment on above: Performed By: #### 8 5499 ####[facility] [place] [address], [place] BASIC METABOLIC PANELon Calcium [Mass/Vol] 7.8 mg/dL Low 8.6-10.3 [facility] Comment on above: Order Comment: No: D o not add to previous draw Performed By: #### 0 0071, 72953 ####[facility] [place] [address], [place] Chloride [Moles/Vol] 109 mmol/L High 98-[address] [facility] Comment on above: Order Comment: No: D o not add to previous draw Performed By: #### 0 0071, 79397 ####[facility] [place] [address], [place] CO2 [Moles/Vol] 18 mmol/L Low 21-31 [facility] Comment on above: Order Comment: No: D o not add to previous draw Performed By: #### 0 0071, 90903 ####[facility] [place] [address], [facility] Creatinine [Mass/Vol] 0.92 mg/dL Normal 0.70-1.[address] [facility] Comment on above: Order Comment: No: D o not add to previous draw Performed By: #### 0 0071, 47288 ####[facility] [place] [address], [facility] GFR/1.73 sq M.predicted among blacks MDRD (S/P/Bld) [Vol rate/Area] mL/min/{1.73_m2} Normal >60 [facility] Comment on above: Order Comment: No: D o not add to previous draw Result Comment: Calc ulation may not be valid for patients over 70 years Performed By: #### 0 0071, 74925 ####[facility] [place] [address], [facility] GFR/1.73 sq M.predicted among non-blacks MDRD (S/P/Bld) [Vol rate/Area] mL/min/{1.73_m2} Normal >[address] [facility] Comment on above: Order Comment: No: D o not add to previous draw Result Comment: Calc ulation may not be valid for patients over 70 years Performed By: #### 0 0071, 14621 ####[facility] [place] [address], [place] Glucose [Mass/Vol] 179 mg/dL High 70-100 [facility] Comment on above: Order Comment: No: D o not add to previous draw Performed By: #### 0 0071, 49771 ####[facility] [place] [address], [place] Potassium [Moles/Vol] 4.1 mmol/L Normal 3.5-5.[address] [facility] Comment on above: Order Comment: No: D o not add to previous draw Performed By: #### 0 0071, 40348 ####[facility] [place] [address], [facility] Sodium [Moles/Vol] 137 mmol/L Normal 136-145 [facility] Comment on above: Order Comment: No: D o not add to previous draw Performed By: #### 0 0071, 22595 ####[facility] [place] [address], [facility] Urea nitrogen [Mass/Vol] 18 mg/dL Normal 7-[address] [facility] Comment on above: Order Comment: No: D o not add to previous draw Performed By: #### 0 0071, 59603 ####[facility] [place] [address], [facility] CBC COMPLETE BLOOD COUNTon 0 11-02-2020 Erythrocyte distribution width (RBC) [Ratio] 14.9 % Normal 11.5-15.[address] [facility] Comment on above: Order Comment: No: D o not add to previous draw Performed By: #### 5 0608 ####[facility] [place] [address], [facility] Hematocrit (Bld) [Volume fraction] 36.4 % Low 39.0-50.[address] [facility] Comment on above: Order Comment: No: D o not add to previous draw Performed By: #### 5 0608 ####[facility] [place] [address], [facility] Hemoglobin (Bld) [Mass/Vol] 11.0 g/dL Low 13.0-17.[address] [facility] Comment on above: Order Comment: No: D o not add to previous draw Performed By: #### 5 0608 ####[facility] MCH (RBC) [Entitic mass] 32.4 pg Normal 27.0-33.0 [facility] Comment on above: Order Comment: No: D o not add to previous draw Performed By: #### 5 0608 ####[facility] MCHC (RBC) [Mass/Vol] 30.2 g/dL Low 32.0-35.[address] [facility] Comment on above: Order Comment: No: D o not add to previous draw Performed By: #### 5 0608 ####[address] MCV (RBC) [Entitic vol] 107.1 fL High 82.0-98.[address] [facility] Comment on above: Order Comment: No: D o not add to previous draw Performed By: #### 5 0608 ####[address] Nucleated RBC/100 WBC (Bld) [Ratio] 0 % Normal 0-[address] [facility] Comment on above: Order Comment: No: D o not add to previous draw Performed By: #### 5 0608 ####[place] [address] PLAT CNT 169 10*3/uL Normal 150-400 [facility] Comment on above: Order Comment: No: D o not add to previous draw Performed By: #### 5 0608 ####[facility] [place] [address] RBC (Bld) [#/Vol] 3.40 10*6/uL Low 4.20-5.70 [facility] Comment on above: Order Comment: No: D o not add to previous draw Performed By: #### 5 0608 ####[facility] [place] [address], [place] WBC (Bld) [#/Vol] 24.00 10*3/uL High 4.00-10.[address] [facility] Comment on above: Order Comment: No: D o not add to previous draw Performed By: #### 5 0608 ####[facility] [place] [address], [place] MAGNESIUM BLOODon 11-02-2020 Magnesium [Mass/Vol] 2.0 mg/dL Normal 1.9-2.[address] [facility] Comment on above: Order Comment: No: D o not add to previous draw Performed By: #### 0 0071, 94977 ####[facility] [place] [address], [place] POC GLUCOSE LABon 11-02-2020 Glucose [Mass/Vol] 156 mg/dL High 70-100 [facility] Comment on above: Performed By: #### 8 5499 ####[facility] [place] [address], [place] Glucose [Mass/Vol] 150 mg/dL High 70-100 [facility] Comment on above: Performed By: #### 8 5499 ####[facility] [place] [address], [place] Glucose [Mass/Vol] 151 mg/dL High 70-100 [facility] Comment on above: Performed By: #### 8 5499 ####[facility] [place] [address], [place] Glucose [Mass/Vol] 169 mg/dL High 70-100 [facility] Comment on above: Performed By: #### 8 5499 ####[facility] [place] [address], [place] Glucose [Mass/Vol] 160 mg/dL High 70-100 [facility] Comment on above: Performed By: #### 8 5499 ####[facility] [place] [address], [place] PORTABLE ABDOMENon PORTABLE ABDOMEN Normal [facility] Comment on above: Order Comment: Evalu ate for Ileus BASIC METABOLIC PANELon Calcium [Mass/Vol] 7.8 mg/dL Low 8.6-10.3 [facility] Comment on above: Order Comment: No: D o not add to previous draw Performed By: #### 1 69, 64266 ####[facility] [place] [address], [place] Chloride [Moles/Vol] 106 mmol/L Normal 98-[address] [facility] Comment on above: Order Comment: No: D o not add to previous draw Performed By: #### 1 69, 54663 ####[facility] [place] [address], [place] CO2 [Moles/Vol] 28 mmol/L Normal 21-31 The [facility] Comment on above: Order Comment: No: D o not add to previous draw Performed By: #### 1 69, 77945 ####[facility] [place] [address], [place] Creatinine [Mass/Vol] 0.91 mg/dL Normal 0.70-1.[address] [facility] Comment on above: Order Comment: No: D o not add to previous draw Performed By: #### 1 69, 71598 ####[facility] [place] [address], [place] GFR/1.73 sq M.predicted among blacks MDRD (S/P/Bld) [Vol rate/Area] mL/min/{1.73_m2} Normal >[address] [facility] Comment on above: Order Comment: No: D o not add to previous draw Result Comment: Calc ulation may not be valid for patients over 70 years Performed By: #### 1 0070, 04904 ####[facility] [place] [address], [facility] GFR/1.73 sq M.predicted among non-blacks MDRD (S/P/Bld) [Vol rate/Area] mL/min/{1.73_m2} Normal >[address] [facility] Comment on above: Order Comment: No: D o not add to previous draw Result Comment: Calc ulation may not be valid for patients over 70 years Performed By: #### 1 69, 54326 ####[facility] [place] [address], [facility] Glucose [Mass/Vol] 326 mg/dL High 70-100 [facility] Comment on above: Order Comment: No: D o not add to previous draw Performed By: #### 1 69, [id number] ####[facility] [place] [address], [facility] Potassium [Moles/Vol] 4.7 mmol/L Normal 3.5-5.[address] [facility] Comment on above: Order Comment: No: D o not add to previous draw Performed By: #### 1 69, 35487 ####[facility] [place] [address], [facility] Sodium [Moles/Vol] 137 mmol/L Normal 136-145 [facility] Comment on above: Order Comment: No: D o not add to previous draw Performed By: #### 1 69, 49944 ####[facility] [place] [address], [place] Urea nitrogen [Mass/Vol] 19 mg/dL Normal 7-[address] [facility] Comment on above: Order Comment: No: D o not add to previous draw Performed By: #### 1 69, 19621 ####[facility] [place] [address], [facility] CBC COMPLETE BLOOD COUNTon 0 11-01-2020 Erythrocyte distribution width (RBC) [Ratio] 14.6 % Normal 11.5-15.[address] [facility] Comment on above: Order Comment: No: D o not add to previous draw Performed By: #### 5 0608 ####[facility] [address] Hematocrit (Bld) [Volume fraction] 34.1 % Low 39.0-50.[address] [facility] Comment on above: Order Comment: No: D o not add to previous draw Performed By: #### 5 0608 ####[facility] [address] Hemoglobin (Bld) [Mass/Vol] 10.8 g/dL Low 13.0-17.[address] [facility] Comment on above: Order Comment: No: D o not add to previous draw Performed By: #### 5 0608 ####[facility] [address] MCH (RBC) [Entitic mass] 32.1 pg Normal 27.0-33.[address] [facility] Comment on above: Order Comment: No: D o not add to previous draw Performed By: #### 5 0608 ####[facility] [address] MCHC (RBC) [Mass/Vol] 31.7 g/dL Low 32.0-35.[address] [facility] Comment on above: Order Comment: No: D o not add to previous draw Performed By: #### 5 0608 ####[facility] MCV (RBC) [Entitic vol] 101.5 fL High 82.0-98.[address] [facility] Comment on above: Order Comment: No: D o not add to previous draw Performed By: #### 5 0608 ####[facility] [place] [address], [facility] Nucleated RBC/100 WBC (Bld) [Ratio] 0 % Normal 0-[address] [facility] Comment on above: Order Comment: No: D o not add to previous draw Performed By: #### 5 0608 ####[facility] [place] [address], [facility] PLAT CNT 189 10*3/uL Normal 150-400 The [facility] Comment on above: Order Comment: No: D o not add to previous draw Performed By: #### 5 0608 ####[facility] [place] [address], [facility] RBC (Bld) [#/Vol] 3.36 10*6/uL Low 4.20-5.70 The [facility] Comment on above: Order Comment: No: D o not add to previous draw Performed By: #### 5 0608 ####[facility] [place] [address], [facility] WBC (Bld) [#/Vol] 24.92 10*3/uL High 4.00-10.60 [facility] Comment on above: Order Comment: No: D o not add to previous draw Performed By: #### 5 0608 ####[place] [address] [address] MAGNESIUM BLOODon 11-01-2020 Magnesium [Mass/Vol] 1.9 mg/dL Normal 1.9-2.7 [facility] Comment on above: Order Comment: No: D o not add to previous draw Performed By: #### 1 0070, 00624 ####[facility] [address] POC GLUCOSE LABon 11-01-2020 Glucose [Mass/Vol] 133 mg/dL High 70-100 [facility] Comment on above: Performed By: #### 8 5499 ####[facility] [place] [address], [place] Glucose [Mass/Vol] 157 mg/dL High 70-100 [facility] Comment on above: Performed By: #### 8 5499 ####[facility] [place] [address], [place] Glucose [Mass/Vol] 140 mg/dL High 70-100 [facility] Comment on above: Performed By: #### 8 5499 ####[facility] [place] [address], [place] Glucose [Mass/Vol] 164 mg/dL High 70-100 [facility] Comment on above: Performed By: #### 8 5499 ####[facility] [place] [address], [place] BASIC METABOLIC PANELon 03-0 Calcium [Mass/Vol] 7.9 mg/dL Low 8.6-10.3 [facility] Comment on above: Order Comment: No: D o not add to previous draw Performed By: #### 0 0071, 92452 ####[facility] [place] [address], [place] Chloride [Moles/Vol] 106 mmol/L Normal 98-[address] [facility] Comment on above: Order Comment: No: D o not add to previous draw Performed By: #### 0 0071, 38482 ####[facility] [place] [address], [place] CO2 [Moles/Vol] 28 mmol/L Normal 21-31 The [facility] Comment on above: Order Comment: No: D o not add to previous draw Performed By: #### 0 0071, 96213 ####[facility] [place] [address], [place] Creatinine [Mass/Vol] 0.87 mg/dL Normal 0.70-1.[address] [facility] Comment on above: Order Comment: No: D o not add to previous draw Performed By: #### 0 0071, 40828 ####[facility] [place] [address], [facility] GFR/1.73 sq M.predicted among blacks MDRD (S/P/Bld) [Vol rate/Area] mL/min/{1.73_m2} Normal >[address] [facility] Comment on above: Order Comment: No: D o not add to previous draw Result Comment: Calc ulation may not be valid for patients over 70 years Performed By: #### 0 0071, 51823 ####[facility] [facility] [place] [address], [facility] GFR/1.73 sq M.predicted among non-blacks MDRD (S/P/Bld) [Vol rate/Area] mL/min/{1.73_m2} Normal >[address] [facility] Comment on above: Order Comment: No: D o not add to previous draw Result Comment: Calc ulation may not be valid for patients over 70 years Performed By: #### 0 0071, 31951 ####[facility] [place] [address], [facility] Glucose [Mass/Vol] 209 mg/dL High 70-100 [facility] Comment on above: Order Comment: No: D o not add to previous draw Performed By: #### 0 0071, 35437 ####[facility] [facility] [place] [address], [facility] Potassium [Moles/Vol] 3.5 mmol/L Normal 3.5-5.[address] [facility] Comment on above: Order Comment: No: D o not add to previous draw Performed By: #### 0 0071, 10030 ####[facility] [place] [address], [place] Sodium [Moles/Vol] 143 mmol/L Normal 136-145 [facility] Comment on above: Order Comment: No: D o not add to previous draw Performed By: #### 0 0071, 85060 ####[facility] [address] Urea nitrogen [Mass/Vol] 20 mg/dL Normal 7-[address] [facility] Comment on above: Order Comment: No: D o not add to previous draw Performed By: #### 0 0071, 08554 ####[facility] CBC COMPLETE BLOOD COUNTon 0 - Erythrocyte distribution width (RBC) [Ratio] 14.5 % Normal 11.5-15.[address] [facility] Comment on above: Order Comment: No: D o not add to previous draw Performed By: #### 5 0608 ####[place] [address] Hematocrit (Bld) [Volume fraction] 33.3 % Low 39.0-50.[address] [facility] Comment on above: Order Comment: No: D o not add to previous draw Performed By: #### 5 0608 ####[place] [address] Hemoglobin (Bld) [Mass/Vol] 10.7 g/dL Low 13.0-17.[address] [facility] Comment on above: Order Comment: No: D o not add to previous draw Performed By: #### 5 0608 ####[facility] MCH (RBC) [Entitic mass] 31.6 pg Normal 27.0-33.[address] [facility] Comment on above: Order Comment: No: D o not add to previous draw Performed By: #### 5 0608 ####[facility] [place] [address].[address] MCHC (RBC) [Mass/Vol] 32.1 g/dL Normal 32.0-35.[address] [facility] Comment on above: Order Comment: No: D o not add to previous draw Performed By: #### 5 0608 ####[facility] [place] [address], [facility] MCV (RBC) [Entitic vol] 98.2 fL High 82.0-98.[address] [facility] Comment on above: Order Comment: No: D o not add to previous draw Performed By: #### 5 0608 ####[facility] [place] [address], [facility] Nucleated RBC/100 WBC (Bld) [Ratio] 0 % Normal 0-[address] [facility] Comment on above: Order Comment: No: D o not add to previous draw Performed By: #### 5 0608 ####[facility] [place] [address], [facility] PLAT CNT 168 10*3/uL Normal 150-400 [facility] Comment on above: Order Comment: No: D o not add to previous draw Performed By: #### 5 0608 ####[facility] [place] [address], [facility] RBC (Bld) [#/Vol] 3.39 10*6/uL Low 4.20-5.70 [facility] Comment on above: Order Comment: No: D o not add to previous draw Performed By: #### 5 0608 ####[facility] [place] [address], [facility] WBC (Bld) [#/Vol] 20.00 10*3/uL High 4.00-10.[address] [facility] Comment on above: Order Comment: No: D o not add to previous draw Performed By: #### 5 0608 ####[facility] [place] [address], [facility] MAGNESIUM BLOODon 10-31-2020 Magnesium [Mass/Vol] 2.1 mg/dL Normal 1.9-2.[address] [facility] Comment on above: Order Comment: No: D o not add to previous draw Performed By: #### 0 0071, 46704 ####[facility] [place] [address], [place] POC GLUCOSE LABon 10-31-2020 Glucose [Mass/Vol] 168 mg/dL High 70-100 [facility] Comment on above: Performed By: #### 8 5499 ####[facility] [place] [address], [place] Glucose [Mass/Vol] 179 mg/dL High 70-100 [facility] Comment on above: Performed By: #### 8 5499 ####[facility] [place] [address], [place] Glucose [Mass/Vol] 173 mg/dL High 70-100 [facility] Comment on above: Performed By: #### 8 5499 ####[facility] [place] [address], [place] Glucose [Mass/Vol] 205 mg/dL High 70-100 [facility] Comment on above: Performed By: #### 8 5499 ####[facility] [place] [address], [place] Glucose [Mass/Vol] 236 mg/dL High 70-100 [facility] Comment on above: Performed By: #### 8 5499 ####[facility] [place] [address], [place] BASIC METABOLIC PANELon 10-04 Calcium [Mass/Vol] 7.7 mg/dL Low 8.6-10.3 [facility] Comment on above: Order Comment: No: D o not add to previous draw Performed By: #### 0 0071, 24145 ####[facility] [place] [address], [facility] Chloride [Moles/Vol] 108 mmol/L High 98-[address] [facility] Comment on above: Order Comment: No: D o not add to previous draw Performed By: #### 0 0071, 92415 ####[facility] [place] [address], [place] CO2 [Moles/Vol] 26 mmol/L Normal 21-31 The [facility] Comment on above: Order Comment: No: D o not add to previous draw Performed By: #### 0 0071, 43971 ####[facility] [place] [address], [facility] Creatinine [Mass/Vol] 0.85 mg/dL Normal 0.70-1.[address] [facility] Comment on above: Order Comment: No: D o not add to previous draw Performed By: #### 0 0071, 56639 ####[facility] [place] [address], [place] GFR/1.73 sq M.predicted among blacks MDRD (S/P/Bld) [Vol rate/Area] mL/min/{1.73_m2} Normal >60 [facility] Comment on above: Order Comment: No: D o not add to previous draw Result Comment: Calc ulation may not be valid for patients over 70 years Performed By: #### 0 0071, 60134 ####[facility] [place] [address], [place] GFR/1.73 sq M.predicted among non-blacks MDRD (S/P/Bld) [Vol rate/Area] mL/min/{1.73_m2} Normal >[address] [facility] Comment on above: Order Comment: No: D o not add to previous draw Result Comment: Calc ulation may not be valid for patients over 70 years Performed By: #### 0 0071, 70155 ####[facility] [place] [address], [facility] Glucose [Mass/Vol] 205 mg/dL High 70-100 [facility] Comment on above: Order Comment: No: D o not add to previous draw Performed By: #### 0 0071, 10253 ####[facility] [place] [address], [facility] Potassium [Moles/Vol] 3.7 mmol/L Normal 3.5-5.[address] [facility] Comment on above: Order Comment: No: D o not add to previous draw Performed By: #### 0 0071, 43560 ####[facility] [place] [address], [facility] Sodium [Moles/Vol] 140 mmol/L Normal 136-145 [facility] Comment on above: Order Comment: No: D o not add to previous draw Performed By: #### 0 0071, 15987 ####[facility] [place] [address], [facility] Urea nitrogen [Mass/Vol] 21 mg/dL Normal 7-[address] [facility] Comment on above: Order Comment: No: D o not add to previous draw Performed By: #### 0 0071, 73860 ####[place] [address] [address] CBC COMPLETE BLOOD COUNTon 0 10-30-2020 Erythrocyte distribution width (RBC) [Ratio] 15.0 % Normal 11.5-15.[address] [facility] Comment on above: Order Comment: No: D o not add to previous draw Performed By: #### 5 0608 ####[place] [address] [place] [address], [facility] Hematocrit (Bld) [Volume fraction] 33.5 % Low 39.0-50.[address] [facility] Comment on above: Order Comment: No: D o not add to previous draw Performed By: #### 5 0608 ####[facility] Hemoglobin (Bld) [Mass/Vol] 10.7 g/dL Low 13.0-17.[address] [facility] Comment on above: Order Comment: No: D o not add to previous draw Performed By: #### 5 0608 ####[address] MCH (RBC) [Entitic mass] 31.7 pg Normal 27.0-33.[address] [facility] Comment on above: Order Comment: No: D o not add to previous draw Performed By: #### 5 0608 ####[address] MCHC (RBC) [Mass/Vol] 31.9 g/dL Low 32.0-35.[address] [facility] Comment on above: Order Comment: No: D o not add to previous draw Performed By: #### 5 0608 ####[address] MCV (RBC) [Entitic vol] 99.1 fL High 82.0-98.[address] [facility] Comment on above: Order Comment: No: D o not add to previous draw Performed By: #### 5 0608 ####[address] Nucleated RBC/100 WBC (Bld) [Ratio] 0 % Normal 0-[address] [facility] Comment on above: Order Comment: No: D o not add to previous draw Performed By: #### 5 0608 ####[address] PLAT CNT 156 10*3/uL Normal 150-400 [facility] Comment on above: Order Comment: No: D o not add to previous draw Performed By: #### 5 0608 ####[address] [place] [address], [place] RBC (Bld) [#/Vol] 3.38 10*6/uL Low 4.20-5.70 [facility] Comment on above: Order Comment: No: D o not add to previous draw Performed By: #### 5 0608 ####[facility] [place] [address], [place] WBC (Bld) [#/Vol] 19.93 10*3/uL High 4.00-10.[address] [facility] Comment on above: Order Comment: No: D o not add to previous draw Performed By: #### 5 0608 ####[facility] [place] [address], [place] MAGNESIUM BLOODon 10-30-2020 Magnesium [Mass/Vol] 2.1 mg/dL Normal 1.9-2.[address] [facility] Comment on above: Order Comment: No: D o not add to previous draw Performed By: #### 0 0071, 68014 ####[facility] [place] [address], [place] POC GLUCOSE LABon 10-30-2020 Glucose [Mass/Vol] 178 mg/dL High 70-100 [facility] Comment on above: Performed By: #### 8 5499 ####[facility] [place] [address], [place] Glucose [Mass/Vol] 173 mg/dL High 70-100 [facility] Comment on above: Performed By: #### 8 5499 ####[facility] [place] [address], [place] Glucose [Mass/Vol] 192 mg/dL High 70-100 [facility] Comment on above: Performed By: #### 8 5499 ####[facility] [place] [address], [place] Glucose [Mass/Vol] 176 mg/dL High 70-100 [facility] Comment on above: Performed By: #### 8 5499 ####[facility] [id number], [facility] Glucose [Mass/Vol] 211 mg/dL High 70-100 [facility] Comment on above: Performed By: #### 8 5499 ####[facility] [place] [address], [facility] BASIC METABOLIC PANELon 02-2 Calcium [Mass/Vol] 7.6 mg/dL Low 8.6-10.3 [facility] Comment on above: Order Comment: No: D o not add to previous draw Performed By: #### 0 0071, 02129 ####[facility] [facility] [address], [facility] Chloride [Moles/Vol] 111 mmol/L High 98-[address] [facility] Comment on above: Order Comment: No: D o not add to previous draw Performed By: #### 0 0071, 34874 ####[facility] [place] [address], [facility] CO2 [Moles/Vol] 21 mmol/L Normal 21-31 The [facility] Comment on above: Order Comment: No: D o not add to previous draw Performed By: #### 0 0071, 65643 ####[facility] [place] [address], [facility] Creatinine [Mass/Vol] 0.90 mg/dL Normal 0.70-1.[address] [facility] Comment on above: Order Comment: No: D o not add to previous draw Performed By: #### 0 0071, 99574 ####[facility] [place] [address], [facility] GFR/1.73 sq M.predicted among blacks MDRD (S/P/Bld) [Vol rate/Area] mL/min/{1.73_m2} Normal >[address] [facility] Comment on above: Order Comment: No: D o not add to previous draw Result Comment: Calc ulation may not be valid for patients over 70 years Performed By: #### 0 0071, 93603 ####[facility] [place] [address], [place] GFR/1.73 sq M.predicted among non-blacks MDRD (S/P/Bld) [Vol rate/Area] mL/min/{1.73_m2} Normal >[address] [facility] Comment on above: Order Comment: No: D o not add to previous draw Result Comment: Calc ulation may not be valid for patients over 70 years Performed By: #### 0 0071, 22236 ####[facility] [place] [address], [place] Glucose [Mass/Vol] 164 mg/dL High 70-100 [facility] Comment on above: Order Comment: No: D o not add to previous draw Performed By: #### 0 0071, 50150 ####[facility] [place] [address], [place] Potassium [Moles/Vol] 3.7 mmol/L Normal 3.5-5.[address] [facility] Comment on above: Order Comment: No: D o not add to previous draw Performed By: #### 0 0071, 22294 ####[facility] [place] [address], [place] Sodium [Moles/Vol] 140 mmol/L Normal 136-145 [facility] Comment on above: Order Comment: No: D o not add to previous draw Performed By: #### 0 0071, 19055 ####[facility] [place] [address], [place] Urea nitrogen [Mass/Vol] 21 mg/dL Normal 7-[address] [facility] Comment on above: Order Comment: No: D o not add to previous draw Performed By: #### 0 0071, 65567 ####[facility] [place] [address], [facility] Calcium [Mass/Vol] 7.2 mg/dL Low 8.6-10.3 [facility] Comment on above: Order Comment: No: D o not add to previous draw Performed By: #### 0 0071, 50594 ####[facility] [place] [address], [facility] Chloride [Moles/Vol] 111 mmol/L High 98-[address] [facility] Comment on above: Order Comment: No: D o not add to previous draw Performed By: #### 0 0071, 20089 ####[facility] [place] [address], [facility] CO2 [Moles/Vol] 21 mmol/L Normal 21-31 [facility] Comment on above: Order Comment: No: D o not add to previous draw Performed By: #### 0 0071, 45210 ####[facility] [place] [address], [facility] Creatinine [Mass/Vol] 0.99 mg/dL Normal 0.70-1.[address] [facility] Comment on above: Order Comment: No: D o not add to previous draw Performed By: #### 0 0071, 87271 ####[facility] [place] [address], [facility] GFR/1.73 sq M.predicted among blacks MDRD (S/P/Bld) [Vol rate/Area] mL/min/{1.73_m2} Normal >[address] [facility] Comment on above: Order Comment: No: D o not add to previous draw Result Comment: Calc ulation may not be valid for patients over 70 years Performed By: #### 0 0071, 04785 ####[facility] [place] [address], [facility] GFR/1.73 sq M.predicted among non-blacks MDRD (S/P/Bld) [Vol rate/Area] mL/min/{1.73_m2} Normal >[address] [facility] Comment on above: Order Comment: No: D o not add to previous draw Result Comment: Calc ulation may not be valid for patients over 70 years Performed By: #### 0 0071, 31561 ####[facility] [place] [address], [facility] Glucose [Mass/Vol] 133 mg/dL High 70-100 [facility] Comment on above: Order Comment: No: D o not add to previous draw Performed By: #### 0 0071, 29976 ####[place] [address] [place] [address], [facility] Potassium [Moles/Vol] 3.8 mmol/L Normal 3.5-5.[address] [facility] Comment on above: Order Comment: No: D o not add to previous draw Performed By: #### 0 0071, 84955 ####[place] [address] [place] [address], [facility] Sodium [Moles/Vol] 140 mmol/L Normal 136-145 [facility] Comment on above: Order Comment: No: D o not add to previous draw Performed By: #### 0 0071, 46085 ####[place] [address] [place] [address], [facility] Urea nitrogen [Mass/Vol] 20 mg/dL Normal 7-[address] [facility] Comment on above: Order Comment: No: D o not add to previous draw Performed By: #### 0 0071, 20199 ####[facility] [place] [address], [facility] CBC W/DIFFon 10-29-2020 ABS BASOPHILS CANCELED Normal 0.0-0.2 [facility] [place] Comment on above: Result Comment: The released value 0.0 was canceled by KNG on 10/29/2020 22:20 Performed By: #### 5 0103 ####[facility] [address] ABS EOSINOPHILS CANCELED Normal 0.0-0.5 The [facility] Comment on above: Result Comment: The released value 0.0 was canceled by KNG on 10/29/2020 22:20 Performed By: #### 5 0103 ####[facility] ABS IMM GRANS CANCELED Normal The [facility] [place] Comment on above: Performed By: #### 5 0103 ####[facility] [address] ABS IMM GRANS 0.1 10*3/uL Normal 0.0-0.2 The [facility] Comment on above: Order Comment: This order is a replacement of the rejected order with accession [id number]. Performed By: #### 5 0103 ####[facility] [address] ABS LYMPHS CANCELED Normal 1.2-4.[address] [facility] Comment on above: Result Comment: The released value 8.3 was canceled by KNG on 10/29/2020 22:20 Performed By: #### 5 0103 ####[facility] [address] ABS MONOCYTES CANCELED Normal 0.1-1.0 The [facility] [place] Comment on above: Result Comment: The released value 0.2 was canceled by KNG on 10/29/2020 22:20 Performed By: #### 5 3 ####[facility], [place] [address] ABS NEUTROPHILS CANCELED Normal 1.6-7.6 The [facility] Comment on above: Result Comment: The released value 12.9 was canceled by KNG on 10/29/2020 22:20 Performed By: #### 5 0103 ####[facility] [place] [address], [facility] ABS NEUTROPHILS 4.8 10*3/uL Normal 1.6-7.6 The [facility] Comment on above: Order Comment: This order is a replacement of the rejected order with accession [id number]. Performed By: #### 5 0103 ####[facility] [place] [address], [facility] ABSOLUTE BANDS CANCELED Normal The [facility] Comment on above: Performed By: #### 5 0103 ####[facility] ACANTHOCYTES CANCELED Normal The [facility] Comment on above: Performed By: #### 5 0103 ####[facility] [place] [address], [facility] ANISO CANCELED Normal The [facility] Comment on above: Performed By: #### 5 0103 ####[facility] [place] [address], [facility] ATYPICAL CELLS CANCELED Normal The [facility] Comment on above: Performed By: #### 5 0103 ####[facility] [place] [address], [facility] BANDS CANCELED Normal The [facility] Comment on above: Performed By: #### 5 0103 ####[facility] [place] [address], [facility] BASO CANCELED Normal 0.0-1.[address] [facility] Comment on above: Result Comment: The released value 0.0 was canceled by KNG on 10/29/2020 22:20 Performed By: #### 5 3 ####[facility] [place] [address], [facility] BASOPHIL STIPPL CANCELED Normal The [facility] Comment on above: Performed By: #### 3 ####[facility] [place] [address], [facility] Basophils (Bld) [#/Vol] 0.0 10*3/uL Normal 0.0-0.2 [facility] Comment on above: Order Comment: This order is a replacement of the rejected order with accession [id number]. Performed By: #### 102 ####[facility] [place] [address], [facility] Basophils/100 WBC (Bld) 0.2 % Normal 0.0-1.0 [facility] Comment on above: Order Comment: This order is a replacement of the rejected order with accession [id number]. Performed By: #### 5 3 ####[facility] [place] [address], [facility] BLASTS CANCELED Normal [facility] Comment on above: Performed By: #### 102 ####[facility] [place] [address], [facility] PARAMJIT CELLS CANCELED Normal [facility] Comment on above: Performed By: #### 102 ####[facility] [place] [address], [facility] DOHLE BODIES CANCELED Normal The [facility] Comment on above: Performed By: #### 102 ####[facility] [place] [address], [facility] ELLIPTOCYTES CANCELED Normal The [facility] Comment on above: Performed By: #### 5 0103 ####[facility] [place] [address], [facility] EOS CANCELED Normal 0.0-6.[address] [facility] Comment on above: Result Comment: The released value 0.0 was canceled by KNG on 10/29/2020 22:20 Performed By: #### 5 0103 ####[facility] [place] [address], [facility] Eosinophils (Bld) [#/Vol] 0.0 10*3/uL Normal 0.0-0.[address] [facility] Comment on above: Order Comment: This order is a replacement of the rejected order with accession [id number]. Performed By: #### 5 0103 ####[place] [address] [facility] [address], [facility] Eosinophils/100 WBC (Bld) 0.2 % Normal 0.0-6.[address] [facility] Comment on above: Order Comment: This order is a replacement of the rejected order with accession [id number]. Performed By: #### 5 0103 ####[place] [address] Erythrocyte distribution width (RBC) [Ratio] 15.0 % Normal 11.5-15.[address] [facility] Comment on above: Order Comment: This order is a replacement of the rejected order with accession [id number]. Performed By: #### 5 0103 ####[facility] [address] GIANT PLATELETS CANCELED Normal The [facility] Comment on above: Result Comment: The released value Present was canceled by KNG on 10/29/2020 22:20 Performed By: #### 5 0103 ####[facility] [place] [address], [facility] GIANT PLATELETS Present Normal The [facility] Comment on above: Order Comment: This order is a replacement of the rejected order with accession [id number]. Performed By: #### 5 0103 ####[facility] [place] [address], [facility] HCT CANCELED Normal 39.0-50.[address] [facility] Comment on above: Result Comment: The released value 35.5 was canceled by KNG on 10/29/2020 22:20 Performed By: #### 5 0103 ####[facility] [place] [address], [facility] HELMET CELLS CANCELED Normal The [facility] Comment on above: Performed By: #### 5 0103 ####[facility] [place] [address], [facility] Hematocrit (Bld) [Volume fraction] 35.5 % Low 39.0-50.0 [facility] Comment on above: Order Comment: This order is a replacement of the rejected order with accession [id number]. Performed By: #### 5 0103 ####[facility] [place] [address], [facility] Hemoglobin (Bld) [Mass/Vol] 11.0 g/dL Low 13.0-17.0 [facility] Comment on above: Order Comment: This order is a replacement of the rejected order with accession [id number]. Performed By: #### 5 0103 ####[facility] [place] [address], [facility] HGB CANCELED Normal 13.0-17.[address] [facility] Comment on above: Result Comment: The released value 11.0 was canceled by KNG on 10/29/2020 22:20 Performed By: #### 5 0103 ####[facility] [place] [address], [facility] MAN JOLLY BODIES CANCELED Normal The [facility] Comment on above: Performed By: #### 5 0103 ####[facility] [place] [address], [facility] HYPERSEG NEUTROPHILS CANCELED Normal [facility] Comment on above: Performed By: #### 5 0103 ####[facility] [place] [address], [facility] HYPO CANCELED Normal The [facility] Comment on above: Performed By: #### 5 0103 ####[facility] [place] [address], [facility] IL CANCELED Normal The [facility] Comment on above: Performed By: #### 5 0103 ####[facility] [place] [address], [facility] IMM PLATELET FRAC CANCELED Normal [facility] Comment on above: Performed By: #### 5 0103 ####[facility] [place] [address], [facility] IMMATURE GRANS CANCELED Normal The [facility] Comment on above: Performed By: #### 5 0103 ####[facility] [place] [address], [facility] IMMATURE GRANS 0.3 % Normal 0.0-1.0 The [facility] Comment on above: Order Comment: This order is a replacement of the rejected order with accession [id number]. Performed By: #### 5 0103 ####[facility] [place] [address], [facility] Lymphocytes (Bld) [#/Vol] 16.0 10*3/uL High 1.2-4.[address] [facility] Comment on above: Order Comment: This order is a replacement of the rejected order with accession [id number]. Performed By: #### 5 0103 ####[facility] Lymphocytes/100 WBC (Bld) 74.9 % High 20.0-45.[address] [facility] Comment on above: Order Comment: This order is a replacement of the rejected order with accession [id number]. Performed By: #### 5 0103 ####[facility] [address] LYMPHS CANCELED Normal 20.0-45.[address] [facility] Comment on above: Result Comment: The released value 38.6 was canceled by KNG on 10/29/2020 22:20 Performed By: #### 5 0103 ####[facility] [address] MACRO CANCELED Normal The [facility] Comment on above: Performed By: #### 5 0103 ####[facility] [place] [address].[address] MCH CANCELED Normal 27.0-33.[address] [facility] Comment on above: Result Comment: The released value 31.9 was canceled by KNG on 10/29/2020 22:20 Performed By: #### 5 0103 ####[place] [address] MCH (RBC) [Entitic mass] 31.9 pg Normal 27.0-33.[address] [facility] Comment on above: Order Comment: This order is a replacement of the rejected order with accession [id number]. Performed By: #### 5 0103 ####[facility] [place] [address].[address] MCHC CANCELED Normal 32.0-35.[address] [facility] Comment on above: Result Comment: The released value 31.0 was canceled by KNG on 10/29/2020 22:20 Performed By: #### 5 0103 ####[facility] [address] MCHC (RBC) [Mass/Vol] 31.0 g/dL Low 32.0-35.[address] [facility] Comment on above: Order Comment: This order is a replacement of the rejected order with accession [id number]. Performed By: #### 5 0103 ####[facility] [address] MCV CANCELED Normal 82.0-98.[address] [facility] Comment on above: Result Comment: The released value 102.9 was canceled by KNG on 10/29/2020 22:20 Performed By: #### 5 3 ####[place] [address] MCV (RBC) [Entitic vol] 102.9 fL High 82.0-98.[address] [facility] Comment on above: Order Comment: This order is a replacement of the rejected order with accession [id number]. Performed By: #### 5 3 ####[facility] METAMYELO CANCELED Normal The [facility] Comment on above: Performed By: #### 5 3 ####[facility] [address] MICRO CANCELED Normal The [facility] Comment on above: Performed By: #### 5 3 ####[place] [address] [place] [address], [facility] Monocytes (Bld) [#/Vol] 0.4 10*3/uL Normal 0.1-1.[address] [facility] Comment on above: Order Comment: This order is a replacement of the rejected order with accession [id number]. Performed By: #### 5 3 ####[facility] [place], [place] [address], [place] [address], [facility] MONOS CANCELED Normal 5.0-12.[address] [facility] Comment on above: Result Comment: The released value 1.0 was canceled by KNG on 10/29/2020 22:20 Performed By: #### 5 0103 ####[facility] [place] [address], [facility] MONOS 1.9 % Low 5.0-12.[address] [facility] Comment on above: Order Comment: This order is a replacement of the rejected order with accession [id number]. Performed By: #### 5 0103 ####[facility] [place] [address], [facility] MYELOS CANCELED Normal The [facility] Comment on above: Performed By: #### 5 0103 ####[facility] NEUTROPHILS CANCELED Normal 40.0-72.0 The [facility] Comment on above: Result Comment: The released value 60.4 was canceled by KNG on 10/29/2020 22:20 Performed By: #### 5 0103 ####[place] [address] Neutrophils/100 WBC (Bld) 22.5 % Low 40.0-72.0 [facility] Comment on above: Order Comment: This order is a replacement of the rejected order with accession [id number]. Performed By: #### 5 0103 ####[facility] [place] [address], [facility] NRBC CANCELED Normal 0-[address] [facility] Comment on above: Result Comment: The released value 0 was canceled by KNG on 10/29/2020 22:20 Performed By: #### 5 0103 ####[facility] [place] [address], [place] NRBC SCAN CANCELED Normal The [facility] Comment on above: Performed By: #### 5 0103 ####[facility] [place] [address], [place] OTHER 1 CANCELED Normal The [facility] Comment on above: Performed By: #### 5 0103 ####[facility] [place] [address], [place] OTHER 2 CANCELED Normal The [facility] Comment on above: Performed By: #### 5 0103 ####[facility] [place] [address], [place] OTHER 3 CANCELED Normal The [facility] Comment on above: Performed By: #### 5 0103 ####[facility] [place] [address], [place] OTHER 4 CANCELED Normal The [facility] Comment on above: Performed By: #### 5 0103 ####[facility] [place] [address], [place] OVALOCYTES CANCELED Normal The [facility] Comment on above: Performed By: #### 5 0103 ####[facility] [place] [address], [place] PAPPENHEIMER BODIES CANCELED Normal The [facility] Comment on above: Performed By: #### 5 0103 ####[facility] [place] [address], [place] PARASITES CANCELED Normal The [facility] Comment on above: Performed By: #### 5 0103 ####[facility] [place] [address], [place] PLAT CNT CANCELED Normal 150-[address] [facility] Comment on above: Result Comment: The released value 139 was canceled by KNG on 10/29/2020 22:20 Performed By: #### 5 0103 ####[facility] [place] [address], [facility] PLAT CNT 139 10*3/uL Low 150-400 The [facility] Comment on above: Order Comment: This order is a replacement of the rejected order with accession [id number]. Performed By: #### 5 0103 ####[facility] [place] [address], [facility] PLAT ESTIMATE CANCELED Normal The [facility] [place] Comment on above: Performed By: #### 5 0103 ####[facility] POIK CANCELED Normal The [facility] Comment on above: Performed By: #### 5 0103 ####[facility] [address] POLY CANCELED Normal The [facility] Comment on above: Performed By: #### 5 0103 ####[facility] [place] [address], [facility] PROMYELO CANCELED Normal The [facility] Comment on above: Performed By: #### 5 0103 ####[facility] [address] RBC CANCELED Normal 4.20-5.[address] [facility] Comment on above: Result Comment: The released value 3.45 was canceled by KNG on 10/29/2020 22:20 Performed By: #### 5 0103 ####[facility] [place] [address], [facility] RBC (Bld) [#/Vol] 3.45 10*6/uL Low 4.20-5.70 The [facility] Comment on above: Order Comment: This order is a replacement of the rejected order with accession [id number]. Performed By: #### 0103 ####[facility] [place] [address], [facility] RDW CANCELED Normal 11.5-15.[address] [facility] Comment on above: Result Comment: The released value 15.0 was canceled by KNG on 10/29/2020 22:20 Performed By: #### 5 0103 ####[facility] [place] [address], [place] REACTIVE LYMPHS CANCELED Normal The [facility] Comment on above: Performed By: #### 3 ####[facility] [place] [address], [facility] ROULEAUX CANCELED Normal The [facility] Comment on above: Performed By: #### 3 ####[facility] [place] [address], [facility] SCHISTOCYTES CANCELED Normal The [facility] Comment on above: Performed By: #### 3 ####[facility] [place] [address], [facility] SEGS CANCELED Normal The [facility] Comment on above: Performed By: #### 3 ####[facility] [place] [address], [place] SICKLE CELLS CANCELED Normal The [facility] Comment on above: Performed By: #### 3 ####[facility] [place] [address], [place] SMUDGE CELLS CANCELED Normal The [facility] Comment on above: Result Comment: The released value Many was canceled by KNG on 10/29/2020 22:20 Performed By: #### 3 ####[facility] [place] [address], [place] SMUDGE CELLS Many Normal The [facility] Comment on above: Order Comment: This order is a replacement of the rejected order with accession [id number]. Performed By: #### 5 3 ####[facility] [place] [address], [facility] SPHEROCYTES CANCELED Normal The [facility] Comment on above: Performed By: #### 5 0103 ####[facility] [place] [address], [facility] STOMATOCYTES CANCELED Normal The [facility] Comment on above: Performed By: #### 5 3 ####[facility] TARGET CELLS CANCELED Normal The [facility] Comment on above: Performed By: #### 5 3 ####[facility] TEAR DROP CELLS CANCELED Normal The [facility] Comment on above: Performed By: #### 5 3 ####[facility] [place] [address], [facility] TOXIC GRANULATION CANCELED Normal The [facility] Comment on above: Performed By: #### 5 3 ####[facility] [place] [address], [facility] VAC NEUTROPHIL CANCELED Normal The [facility] Comment on above: Performed By: #### 5 3 ####[facility] [place] [address], [facility] WBC CANCELED Normal 4.00-10.[address] [facility] Comment on above: Result Comment: The released value 21.41 was canceled by KNG on 10/29/2020 22:20 Performed By: #### 5 3 ####[facility] WBC (Bld) [#/Vol] 21.41 10*3/uL High 4.00-10.[address] [facility] Comment on above: Order Comment: This order is a replacement of the rejected order with accession [id number]. Performed By: #### 5 0103 ####[facility] [place] [address], [facility] ABS IMM GRANS 0.1 10*3/uL Normal 0.0-0.2 The [facility] Comment on above: Order Comment: No: D o not add to previous draw Performed By: #### 5 0103 ####[facility] ABS NEUTROPHILS 4.4 10*3/uL Normal 1.6-7.6 The [facility] Comment on above: Order Comment: No: D o not add to previous draw Performed By: #### 5 0103 ####[facility] [place] [address], [facility] Basophils (Bld) [#/Vol] 0.1 10*3/uL Normal 0.0-0.[address] [facility] Comment on above: Order Comment: No: D o not add to previous draw Performed By: #### 5 0103 ####[facility] Basophils/100 WBC (Bld) 0.3 % Normal 0.0-1.[address] [facility] Comment on above: Order Comment: No: D o not add to previous draw Performed By: #### 5 0103 ####[facility] [place] [address], [facility] Eosinophils (Bld) [#/Vol] 0.1 10*3/uL Normal 0.0-0.[address] [facility] Comment on above: Order Comment: No: D o not add to previous draw Performed By: #### 5 0103 ####[facility] Eosinophils/100 WBC (Bld) 0.3 % Normal 0.0-6.[address] [facility] Comment on above: Order Comment: No: D o not add to previous draw Performed By: #### 5 0103 ####[facility] Erythrocyte distribution width (RBC) [Ratio] 15.4 % High 11.5-15.[address] [facility] Comment on above: Order Comment: No: D o not add to previous draw Performed By: #### 5 0103 ####[facility] Hematocrit (Bld) [Volume fraction] 33.8 % Low 39.0-50.[address] [facility] Comment on above: Order Comment: No: D o not add to previous draw Performed By: #### 5 0103 ####[facility] Hemoglobin (Bld) [Mass/Vol] 9.8 g/dL Low 13.0-17.0 [facility] [facility] Comment on above: Order Comment: No: D o not add to previous draw Performed By: #### 5 0103 ####[facility] IMMATURE GRANS 0.3 % Normal 0.0-1.0 The [facility] Comment on above: Order Comment: No: D o not add to previous draw Performed By: #### 5 0103 ####[facility] [address] Lymphocytes (Bld) [#/Vol] 14.8 10*3/uL High 1.2-4.[address] [facility] Comment on above: Order Comment: No: D o not add to previous draw Performed By: #### 5 0103 ####[facility] [address] Lymphocytes/100 WBC (Bld) 75.4 % High 20.0-45.[address] [facility] Comment on above: Order Comment: No: D o not add to previous draw Performed By: #### 5 0103 ####[facility] [address] MCH (RBC) [Entitic mass] 31.8 pg Normal 27.0-33.[address] [facility] Comment on above: Order Comment: No: D o not add to previous draw Performed By: #### 5 0103 ####[facility] [address] MCHC (RBC) [Mass/Vol] 29.0 g/dL Low 32.0-35.[address] [facility] Comment on above: Order Comment: No: D o not add to previous draw Performed By: #### 5 0103 ####[facility] [place] [address] MCV (RBC) [Entitic vol] 109.7 fL High 82.0-98.[address] [facility] Comment on above: Order Comment: No: D o not add to previous draw Performed By: #### 5 0103 ####[facility] [place] [address] Monocytes (Bld) [#/Vol] 0.3 10*3/uL Normal 0.1-1.[address] [facility] Comment on above: Order Comment: No: D o not add to previous draw Performed By: #### 5 0103 ####[facility] [place] [address] MONOS 1.4 % Low 5.0-12.[address] [facility] Comment on above: Order Comment: No: D o not add to previous draw Performed By: #### 5 0103 ####[facility] [place] [address], [facility] Neutrophils/100 WBC (Bld) 22.3 % Low 40.0-72.[address] [facility] Comment on above: Order Comment: No: D o not add to previous draw Performed By: #### 5 0103 ####[facility] [facility] [place] [address], [facility] Nucleated RBC/100 WBC (Bld) [Ratio] 0 % Normal 0-[address] [facility] Comment on above: Order Comment: No: D o not add to previous draw Performed By: #### 5 0103 ####[facility] [address] OTHER 1 Lymphocytosis and ma ny smudge cells. Normal The [facility] Comment on above: Order Comment: No: D o not add to previous draw Result Comment: Resu lt changed by CHIKI on 10/31/2020 12:14. The previous value wasPreliminary report; verified report to follow. Performed By: #### 5 0103 ####[place] [address] [address] OTHER 2 Checked by Erika Martinez M.D. Normal [facility] Comment on above: Order Comment: No: D o not add to previous draw Result Comment: This result added by CHIKI on 10/31/2020 12:14. Performed By: #### 5 0103 ####[facility] [place] [address], [facility] PLAT CNT 125 10*3/uL Low 150-400 The [facility] Comment on above: Order Comment: No: D o not add to previous draw Performed By: #### 5 0103 ####[facility] [place] [address], [facility] RBC (Bld) [#/Vol] 3.08 10*6/uL Low 4.20-5.70 The [facility] Comment on above: Order Comment: No: D o not add to previous draw Performed By: #### 5 0103 ####[facility] [place] [address], [facility] SMUDGE CELLS MANY PRESENT Normal The [facility] Comment on above: Order Comment: No: D o not add to previous draw Performed By: #### 5 0103 ####[facility] [place] [address], [facility] WBC (Bld) [#/Vol] 19.59 10*3/uL High 4.00-10.[address] [facility] Comment on above: Order Comment: No: D o not add to previous draw Performed By: #### 5 0103 ####[facility] [place] [address], [facility] CT ABDOMEN AND PELVIS WO CON TRASTon 10-29-2020 CT ABDOMEN AND PELVIS WO CONTRAST Normal The [facility] Comment on above: Order Comment: Other , s/p sigmoid colectomy d/t perforated diverticulum. Severe abdominal pain. R/O further abdominal pathology. MAGNESIUM BLOODon 10-29-2020 Magnesium [Mass/Vol] 2.1 mg/dL Normal 1.9-2.[address] [facility] Comment on above: Order Comment: No: D o not add to previous draw Performed By: #### 0 0071, 98847 ####[facility] [place] [address], [facility] Magnesium [Mass/Vol] 2.0 mg/dL Normal 1.9-2.[address] [facility] Comment on above: Order Comment: No: D o not add to previous draw Performed By: #### 0 0071, 49731 ####[facility] [place] [address], [facility] POC GLUCOSE LABon 10-29-2020 Glucose [Mass/Vol] 172 mg/dL High 70-100 The [facility] Comment on above: Performed By: #### 8 5499 ####[facility] [place] [address], [place] Glucose [Mass/Vol] 177 mg/dL High 70-100 The [facility] Comment on above: Performed By: #### 8 5499 ####[facility] [place] [address], [place] Glucose [Mass/Vol] 135 mg/dL High 70-100 The [facility] Comment on above: Performed By: #### 8 5499 ####[facility] [place] [address], [place] Glucose [Mass/Vol] 131 mg/dL High 70-100 The [facility] Comment on above: Performed By: #### 8 5499 ####[facility] [place] [address], [facility] BASIC METABOLIC PANELon 02-2 Calcium [Mass/Vol] 7.5 mg/dL Low 8.6-10.3 The [facility] Comment on above: Order Comment: No: D o not add to previous draw Performed By: #### 0 0071, 75437 ####[facility] [place] [address], [place] Chloride [Moles/Vol] 105 mmol/L Normal 98-[address] [facility] Comment on above: Order Comment: No: D o not add to previous draw Performed By: #### 0 0071, 73646 ####[facility] [place] [address], [place] CO2 [Moles/Vol] 24 mmol/L Normal 21-31 The [facility] Comment on above: Order Comment: No: D o not add to previous draw Performed By: #### 0 0071, 74066 ####[facility] [place] [address], [facility] Creatinine [Mass/Vol] 0.97 mg/dL Normal 0.70-1.30 [facility] Comment on above: Order Comment: No: D o not add to previous draw Performed By: #### 0 0071, 49479 ####[facility] [place] [address], [facility] GFR/1.73 sq M.predicted among blacks MDRD (S/P/Bld) [Vol rate/Area] mL/min/{1.73_m2} Normal >[address] [facility] Comment on above: Order Comment: No: D o not add to previous draw Result Comment: Calc ulation may not be valid for patients over 70 years Performed By: #### 0 0071, 68241 ####[facility] [facility] [place] [address], [facility] GFR/1.73 sq M.predicted among non-blacks MDRD (S/P/Bld) [Vol rate/Area] mL/min/{1.73_m2} Normal >[address] [facility] Comment on above: Order Comment: No: D o not add to previous draw Result Comment: Calc ulation may not be valid for patients over 70 years Performed By: #### 0 0071, 39147 ####[facility] [facility] [place] [address], [facility] Glucose [Mass/Vol] 206 mg/dL High 70-100 The [facility] Comment on above: Order Comment: No: D o not add to previous draw Performed By: #### 0 0071, 06706 ####[facility] [facility] [place] [address], [facility] Potassium [Moles/Vol] 3.4 mmol/L Low 3.5-5.1 [facility] Comment on above: Order Comment: No: D o not add to previous draw Performed By: #### 0 0071, 10422 ####[facility] Sodium [Moles/Vol] 136 mmol/L Normal 136-145 The [facility] Comment on above: Order Comment: No: D o not add to previous draw Performed By: #### 0 0071, 29643 ####[address] Urea nitrogen [Mass/Vol] 17 mg/dL Normal 7-[address] [facility] Comment on above: Order Comment: No: D o not add to previous draw Performed By: #### 0 0071, 43868 ####[address] CBC COMPLETE BLOOD COUNTon 0 10-28-2020 Erythrocyte distribution width (RBC) [Ratio] 15.1 % High 11.5-15.[address] [facility] Comment on above: Order Comment: No: D o not add to previous draw Performed By: #### 5 0608 ####[address] Hematocrit (Bld) [Volume fraction] 36.2 % Low 39.0-50.[address] [facility] Comment on above: Order Comment: No: D o not add to previous draw Performed By: #### 5 0608 ####[address] Hemoglobin (Bld) [Mass/Vol] 11.6 g/dL Low 13.0-17.[address] [facility] Comment on above: Order Comment: No: D o not add to previous draw Performed By: #### 5 0608 ####[address] MCH (RBC) [Entitic mass] 31.8 pg Normal 27.0-33.[address] [facility] Comment on above: Order Comment: No: D o not add to previous draw Performed By: #### 5 0608 ####[facility] [place] [address], [facility] MCHC (RBC) [Mass/Vol] 32.0 g/dL Normal 32.0-35.[address] [facility] Comment on above: Order Comment: No: D o not add to previous draw Performed By: #### 5 0608 ####[facility] [facility] [place] [address], [facility] MCV (RBC) [Entitic vol] 99.2 fL High 82.0-98.[address] [facility] Comment on above: Order Comment: No: D o not add to previous draw Performed By: #### 5 0608 ####[facility] [place] [address], [facility] Nucleated RBC/100 WBC (Bld) [Ratio] 0 % Normal 0-[address] [facility] Comment on above: Order Comment: No: D o not add to previous draw Performed By: #### 5 0608 ####[facility] [place] [address], [facility] PLAT CNT 133 10*3/uL Low 150-400 The [facility] Comment on above: Order Comment: No: D o not add to previous draw Performed By: #### 5 0608 ####[facility] [place] [address], [facility] RBC (Bld) [#/Vol] 3.65 10*6/uL Low 4.20-5.70 The [facility] Comment on above: Order Comment: No: D o not add to previous draw Performed By: #### 5 0608 ####[facility] [place] [address], [facility] WBC (Bld) [#/Vol] 27.62 10*3/uL High 4.00-10.[address] [facility] Comment on above: Order Comment: No: D o not add to previous draw Performed By: #### 5 0608 ####[facility] [place] [address], [place] MAGNESIUM BLOODon 10-28-2020 Magnesium [Mass/Vol] 2.0 mg/dL Normal 1.9-2.[address] [facility] Comment on above: Order Comment: No: D o not add to previous draw Performed By: #### 0 0071, 38545 ####[facility] [place] [address], [facility] Operative Reporton Operative Report Normal The [facility] POC GLUCOSE LABon 10-28-2020 Glucose [Mass/Vol] 141 mg/dL High 70-100 The [facility] Comment on above: Performed By: #### 8 5499 ####[facility] [place] [address], [place] Glucose [Mass/Vol] 128 mg/dL High 70-100 The [facility] Comment on above: Performed By: #### 8 5499 ####[facility] [place] [address], [place] Glucose [Mass/Vol] 166 mg/dL High 70-100 The [facility] Comment on above: Performed By: #### 8 5499 ####[facility] [place] [address], [place] Glucose [Mass/Vol] 182 mg/dL High 70-100 The [facility] Comment on above: Performed By: #### 8 5499 ####[facility] [place] [address], [place] Glucose [Mass/Vol] 222 mg/dL High 70-100 The [facility] Comment on above: Performed By: #### 8 5499 ####[facility] [place] [address], [place] APTTon 10-27-2020 aPTT Coag (Bld) [Time] 33.4 s Normal 25.0-35.0 [facility] Comment on above: Order Comment: No: D o not add to previous draw Result Comment: ALL RESULTS MUST BE INTERPRETED WITH RESPECT TO BLOOD DRAWING ARTIFACTOR DILUTION ERROR OF ANTICOAGULANT AT THE TIME OF SAMPLING.THE APTT SHOULD NOT BE USED TO MONITOR UNFRACTIONATED HEPARIN THERAPY, THIS LABORATORY NO LONGER HAS AN ESTABLISHED THERAPEUTIC RANGE BASEDON THE APTT. IT IS RECOMMENDED THAT THE [facility] - HEPARIN ASSAY (ANTI-XAACTIVITY) BE USED FOR THIS PURPOSE. Performed By: #### 5 7307, 97972 ####[facility] ARTERIAL BLOOD GAS W/COOXon 10-27-2020 BASE EXCESS -2 mmol/L Normal -2-3 [facility] Comment on above: Performed By: #### 7 0067, 91522, 13402, 64826 ####[facility] COHB 1.3 % Normal 0.0-1.[address] [facility] Comment on above: Performed By: #### 7 006, 94646, 47987, 84483 ####[facility] [facility] [address], [facility] HCO3 (Bld) [Moles/Vol] 22 mmol/L Normal 21-[address] [facility] Comment on above: Performed By: #### 7 0067, 93919, 67205, 05748 ####[facility] [place] [address], [facility] METHB 0.6 % Normal 0.0-1.[address] [facility] Comment on above: Performed By: #### 7 66, 10484, 64614, 32034 ####[facility] [place] [address], [facility] MODALITY OR Normal [facility] Comment on above: Performed By: #### 7 66, 09630, 31671, 56874 ####[facility] [place] [address], [facility] Oxygen (Bld) [Partial pressure] 172 mm[Hg] Critically high 83-108 [facility] Comment on above: Performed By: #### 7 006, 94972, 46432, 66939 ####[facility] [place] [address], [facility] Oxygen saturation in Blood 96.9 % Normal 94.0-97.0 [facility] Comment on above: Performed By: #### 7 66, 84518, 72786, 60941 ####[place] [address] [facility] [place] [address], [facility] PCO2 33 mmHg Low 35-45 [facility] Comment on above: Performed By: #### 7 006, 77784, 69768, 51193 ####[place] [address] [place] [address], [facility] pH (Bld) 7.43 [pH] Normal 7.35-7.45 [facility] Comment on above: Performed By: #### 7 006, 66528, 05516, 60677 ####[place] [address] [address] THB 11.3 g/dL Low 12.0-16.3 [facility] Comment on above: Performed By: #### 7 006, 85996, 60993, 01156 ####[place] [address] [place] [address], [facility] BASIC METABOLIC PANELon 10-04 Calcium [Mass/Vol] 8.4 mg/dL Low 8.6-10.3 [facility] Comment on above: Order Comment: No: D o not add to previous draw Performed By: #### 1 0070, 25382 ####[facility] [place] [address], [facility] Chloride [Moles/Vol] 104 mmol/L Normal 98-[address] [facility] Comment on above: Order Comment: No: D o not add to previous draw Performed By: #### 1 69, 26731 ####[facility] [place] [address], [place] CO2 [Moles/Vol] 24 mmol/L Normal 21-31 The [facility] Comment on above: Order Comment: No: D o not add to previous draw Performed By: #### 1 0, 57866 ####[facility] [facility] [place] [address], [facility] Creatinine [Mass/Vol] 1.03 mg/dL Normal 0.70-1.[address] [facility] Comment on above: Order Comment: No: D o not add to previous draw Performed By: #### 1 69, 12456 ####[facility] [facility] [place] [address], [place] GFR/1.73 sq M.predicted among blacks MDRD (S/P/Bld) [Vol rate/Area] mL/min/{1.73_m2} Normal >60 [facility] Comment on above: Order Comment: No: D o not add to previous draw Result Comment: Calc ulation may not be valid for patients over 70 years Performed By: #### 1 69, 36870 ####[facility] [facility] [place] [address], [facility] GFR/1.73 sq M.predicted among non-blacks MDRD (S/P/Bld) [Vol rate/Area] mL/min/{1.73_m2} Normal >[address] [facility] Comment on above: Order Comment: No: D o not add to previous draw Result Comment: Calc ulation may not be valid for patients over 70 years Performed By: #### 1 69, 44838 ####[facility] Glucose [Mass/Vol] 176 mg/dL High 70-100 [facility] Comment on above: Order Comment: No: D o not add to previous draw Performed By: #### 1 69, 44016 ####[facility] [place] [address], [facility] Potassium [Moles/Vol] 3.8 mmol/L Normal 3.5-5.[address] [facility] Comment on above: Order Comment: No: D o not add to previous draw Performed By: #### 1 69, 08925 ####[facility] [address] Sodium [Moles/Vol] 134 mmol/L Low 136-145 [facility] Comment on above: Order Comment: No: D o not add to previous draw Performed By: #### 1 69, 52003 ####[facility] [address] Urea nitrogen [Mass/Vol] 21 mg/dL Normal 7-[address] [facility] Comment on above: Order Comment: No: D o not add to previous draw Performed By: #### 1 69, 55722 ####[facility] [address] CALCIUM IONIZED CBGLon 10-27 IONIZED CALCIUM 1.07 mmol/L Low 1.13-1.32 [facility] Comment on above: Performed By: #### 7 0067, 42305, 79848, 01786 ####[facility] [address] CBC COMPLETE BLOOD COUNTon 0 10-27-2020 Erythrocyte distribution width (RBC) [Ratio] 15.0 % Normal 11.5-15.[address] [facility] Comment on above: Order Comment: No: D o not add to previous draw Performed By: #### 5 0608 ####[facility] Hematocrit (Bld) [Volume fraction] 38.8 % Low 39.0-50.[address] [facility] Comment on above: Order Comment: No: D o not add to previous draw Performed By: #### 5 0608 ####[address] Hemoglobin (Bld) [Mass/Vol] 12.5 g/dL Low 13.0-17.[address] [facility] Comment on above: Order Comment: No: D o not add to previous draw Performed By: #### 5 0608 ####[address] MCH (RBC) [Entitic mass] 31.9 pg Normal 27.0-33.[address] [facility] Comment on above: Order Comment: No: D o not add to previous draw Performed By: #### 5 0608 ####[address] MCHC (RBC) [Mass/Vol] 32.2 g/dL Normal 32.0-35.[address] [facility] Comment on above: Order Comment: No: D o not add to previous draw Performed By: #### 5 0608 ####[address] MCV (RBC) [Entitic vol] 99.0 fL High 82.0-98.[address] [facility] Comment on above: Order Comment: No: D o not add to previous draw Performed By: #### 5 0608 ####[address] Nucleated RBC/100 WBC (Bld) [Ratio] 0 % Normal 0-[address] [facility] Comment on above: Order Comment: No: D o not add to previous draw Performed By: #### 5 0608 ####[address] [place] [address], [facility] PLAT CNT 140 10*3/uL Low 150-400 [facility] Comment on above: Order Comment: No: D o not add to previous draw Performed By: #### 5 0608 ####[facility] [place] [address], [facility] RBC (Bld) [#/Vol] 3.92 10*6/uL Low 4.20-5.70 [facility] Comment on above: Order Comment: No: D o not add to previous draw Performed By: #### 5 0608 ####[place] [address] [place] [address], [facility] WBC (Bld) [#/Vol] 27.81 10*3/uL High 4.00-10.[address] [facility] Comment on above: Order Comment: No: D o not add to previous draw Performed By: #### 5 0608 ####[facility] [facility] [place] [address], [facility] LACTATE BLOODon 10-27-2020 Lactate [Moles/Vol] 0.8 mmol/L Normal 0.5-2.2 [facility] Comment on above: Order Comment: No: D o not add to previous draw Performed By: #### 1 0054 ####[address] [place] [address], [facility] LIPASE BLOODon 10-27-2020 LIPASE 7 Units/L Low 11-[address] [facility] Comment on above: Order Comment: No: D o not add to previous draw Performed By: #### 3 6901, 04418, 81667 ####[facility] [place] [address], [facility] LIVER BATTERYon 10-27-2020 Albumin [Mass/Vol] 3.6 g/dL Normal 3.5-5.7 [facility] Comment on above: Order Comment: No: D o not add to previous draw Performed By: #### 3 6901, 98129, 84373 ####[facility] [place] [address], [place] ALKALINE PHOSPH 54 IU/L Normal 34-104 The [facility] Comment on above: Order Comment: No: D o not add to previous draw Performed By: #### 3 6901, 05707, 41725 ####[facility] [place] [address], [place] ALT [Catalytic activity/Vol] 38 U/L Normal 7-[address] [facility] Comment on above: Order Comment: No: D o not add to previous draw Performed By: #### 3 6901, 23426, 83047 ####[facility] [place] [address], [place] AST [Catalytic activity/Vol] 28 U/L Normal 13-39 [facility] Comment on above: Order Comment: No: D o not add to previous draw Performed By: #### 3 6901, 69255, 15250 ####[facility] [place] [address], [place] Bilirubin [Mass/Vol] 1.3 mg/dL High 0.3-1.[address] [facility] Comment on above: Order Comment: No: D o not add to previous draw Performed By: #### 3 6901, 44434, 64638 ####[facility] [place] [address], [place] Bilirubin.direct [Mass/Vol] 0.4 mg/dL High 0.0-0.[address] [facility] Comment on above: Order Comment: No: D o not add to previous draw Performed By: #### 3 6901, 61127, 17904 ####[facility] [place] [address], [place] Protein [Mass/Vol] 5.5 g/dL Low 6.0-8.3 [facility] Comment on above: Order Comment: No: D o not add to previous draw Performed By: #### 3 6901, 43772, 21931 ####[facility] [place] [address], [place] MAGNESIUM BLOODon 10-27-2020 Magnesium [Mass/Vol] 1.7 mg/dL Low 1.9-2.[address] [facility] Comment on above: Order Comment: No: D o not add to previous draw Performed By: #### 1 0070, [id number] ####[facility] [place] [address], [place] POC GLUCOSE LABon 10-27-2020 Glucose [Mass/Vol] 193 mg/dL High 70-100 [facility] Comment on above: Performed By: #### 8 [id number] ####[facility] [place] [address], [place] Glucose [Mass/Vol] 173 mg/dL High 70-100 [facility] Comment on above: Performed By: #### 8 [id number] ####[facility] [place] [address], [place] Glucose [Mass/Vol] 153 mg/dL High 70-100 [facility] Comment on above: Performed By: #### 8 [id number] ####[facility] [place] [address], [place] Glucose [Mass/Vol] 186 mg/dL High 70-100 [facility] Comment on above: Performed By: #### 8 [id number] ####[facility] [place] [address], [place] Glucose [Mass/Vol] 183 mg/dL High 70-100 [facility] Comment on above: Performed By: #### 8 [id number] ####[facility] PORTABLE CHEST 1 VIEWon 10-04 PORTABLE CHEST 1 VIEW Normal The [facility] Comment on above: Order Comment: Check NG Tube Position POTASSIUM WHOLE BLOOD CBGLon 10-27-2020 Potassium [Moles/Vol] 3.2 mmol/L Low 3.4-5.[address] [facility] Comment on above: Performed By: #### 7 0067, [id number], [id number], [id number] ####[facility] [address] PROTHROMBIN TIMEon INR Coag (PPP) [Relative time] 1.09 {INR} Normal 0.91-1.[address] [facility] Comment on above: Order Comment: No: D o not add to previous draw Result Comment: ACCC P RECOMMENDED INR FOR WARFARIN THERAPY CONDITION INRPROPHYLAXIS OF VENOUS THROMBOSIS 2-3(HIGH-RISK SURGERY)TREATMENT OF VENOUS THROMBOSIS 2-3TREATMENT OF PULMONARY EMBOLISM 2-3PREVENTION OF SYSTEMIC EMBOLISM: 2-3 ACUTE MYOCARDIAL INFARCTION TISSUE HEART VALVES VALVULAR HEART DISEASE ATRIAL FIBRILLATION RECURRENT SYSTEMIC EMBOLISMMECHANICAL HEART VALVE 2.5-3.5 FROM: ORAL ANTICOAGULANTS. MECHANISM OF ACTION, CLINICALEFFECTIVENESS, AND OPTIMAL THERAPEUTIC RANGE. [id number]. Performed By: #### 5 7307, [id number] ####[facility] [place] [address], [facility] PT Coag (PPP) [Time] 14.2 s Normal 12.3-14.[address] [facility] Comment on above: Order Comment: No: D o not add to previous draw Result Comment: ALL RESULTS MUST BE INTERPRETED WITH RESPECT TO BLOOD DRAWING ARTIFACTOR DILUTION ERROR OF ANTICOAGULANT AT THE TIME OF SAMPLING. Performed By: #### 5 7307, [id number] ####[facility] [place] [address], [facility] SODIUM WHOLE BLOOD CBGLon Sodium [Moles/Vol] 133.0 mmol/L Low 136.0-146.[address] [facility] Comment on above: Performed By: #### 7 0067, 73680, 74392, 80878 ####[facility] [address] TROPONIN-Ion 10-27-2020 Troponin I.cardiac [Mass/Vol] 0.01 ng/mL Normal 0.00-0.[address] [facility] Comment on above: Order Comment: No: D o not add to previous draw Result Comment: REFE RENCE RANGES: 0.00 - 0.04 ng/ml NORMAL 0.05 - 0.50 ng/ml INDETERMINATE > 0.50 ng/ml CONSISTENT WITH AN M.I. Performed By: #### 3 6901, 31514, 78937 ####[facility] TYPE AND SCREENon 10-27-2020 ABO INTERPRETATION O Normal [facility] Comment on above: Performed By: #### 6 2586 ####[facility] [place] [address], [facility] RH INTERPRETATION Positive Normal The [facility] Comment on above: Performed By: #### 6 2586 ####[facility] [place] [address], [facility] Vital Signs Date Time Vital Sign Value Performing Clinician Facility 08-08-2023 14:46-0500 Body temperature 97.59 [degF] Frederick Zapata MD Work Phone: [facility] 08-08-2023 14:46-0500 Body weight 76.3 kg Frederick Zapata MD Work Phone: [facility] 08-08-2023 14:46-0500 Diastolic blood pressure 57 mm[Hg] Frederick Zapata MD Work Phone: [facility] 08-08-2023 14:46-0500 Heart rate 77 /min Frederick Zapata MD Work Phone: [facility] 08-08-2023 14:46-0500 Respiratory rate 18 /min Frederick Zapata MD Work Phone: [facility] 08-08-2023 14:46-0500 SaO2% (BldA) [Mass fraction] 97 % Frederick Zapata MD Work Phone: [facility] 08-08-2023 14:46-0500 Systolic blood pressure 127 mm[Hg] Frederick Zapata MD Work Phone: [facility] 06-14-2023 17:35-0400 Body height 162.56 cm Annmarie Mcgee Other [facility] Other 06-14-2023 17:35-0400 Body mass index (BMI) [Ratio] 29.61 kg/m2 Annmarie Mcgee Other [facility] Other 06-14-2023 17:35-0400 Body temperature 98.2 [degF] Annmarie Mcgee Other [facility] Other 06-14-2023 17:35-0400 Body weight 78.25 kg Annmarie Mcgee Other [facility] Other 06-14-2023 17:35-0400 Diastolic blood pressure 54 mm[Hg] Annmarie Mcgee Other [facility] Other 06-14-2023 17:35-0400 Respiratory rate 18 /min Annmarie Maemond Other [facility] Other 06-14-2023 17:35-0400 SaO2% (BldA) [Mass fraction] 96 % Annmarie Arely Other [facility] Other 06-14-2023 17:35-0400 Systolic blood pressure 111 mm[Hg] Annmarie Arely Other [facility] Other 09-17-2022 14:35-0500 Body height 162.56 cm Annmarie Arely Other [facility] Other 09-17-2022 14:35-0500 Body mass index (BMI) [Ratio] 29.18 kg/m2 Annmarie Arely Other [facility] Other 09-17-2022 14:35-0500 Body temperature 98.1 [degF] Annmarie Arely Other [facility] Other 09-17-2022 14:35-0500 Body weight 77.11 kg Annmarie Arely Other [facility] Other 09-17-2022 14:35-0500 Respiratory rate 18 /min Annmarie Arely Other [facility] Other 09-17-2022 14:35-0500 SaO2% (BldA) [Mass fraction] 98 % Annmarie Arely Other [facility] Other 01-01-2022 13:47-0400 Body height 163.8 cm Frederick Zapata MD Work Phone: [facility] 01-01-2022 13:47-0400 Body temperature 97.9 [degF] Frederick Zapata MD Work Phone: [facility] 01-01-2022 13:47-0400 Body weight 73.39 kg Frederick Zapata MD Work Phone: [facility] 01-01-2022 13:47-0400 Diastolic blood pressure 59 mm[Hg] Frederick Zapata MD Work Phone: [facility] 01-01-2022 13:47-0400 Heart rate 66 /min Frederick Zapata MD Work Phone: [facility] 01-01-2022 13:47-0400 Respiratory rate 16 /min Frederick Zapata MD Work Phone: [facility] 01-01-2022 13:47-0400 SaO2% (BldA) [Mass fraction] 97 % Frederick Zapata MD Work Phone: [facility] 01-01-2022 13:47-0400 Systolic blood pressure 120 mm[Hg] Frederick Zapata MD Work Phone: [facility] Encounters Encounter Date Encounter Type Care Provider Facility Start: 08-08-2023 End: 08-08-2023 ambulatory RODRÍGUEZ WHEAT II Facility:[facility] Start: 08-08-2023 End: 08-08-2023 Office outpatient visit 25 minutes Frederick Zapata MD Work Phone: Hematology/Oncology Comment on above: Chronic lymphocytic leukemia (HCC) (Primary Dx) Start: 08-05-2023 End: 08-05-2023 ambulatory SHAIKH DESTINEE Not Available Start: 06-14-2023 (URG) Urgent Care Visit Annmarie Mcgee [facility] Start: 06-14-2023 End: 06-14-2023 ambulatory Annmarie Mcgee Other [facility] Other Start: 12-03-2022 Orders Only Joshua velez PA-C Work Phone: Appointment Center Comment on above: Pain (Primary Dx) Start: 09-17-2022 End: 09-17-2022 ambulatory Annmarie Maemond Other [facility] Other Start: 09-17-2022 Office outpatient ne w 20 minutes Annmarie Arely [facility] Start: 07-31-2022 End: 08-01-2022 ambulatory ASSEMBLER BRAZER ARLENE BLACKADAN Facility:[facility] Start: 07-23-2022 End: 07-24-2022 ambulatory ASSEMBLER BRAZER ARLENE BLACKTOMASAJeff Facility:[facility] Start: 05-08-2022 End: 05-08-2022 ambulatory Shaikh Destinee Facility:[facility] Start: 05-08-2022 End: 05-08-2022 Patient encounter procedure MD Shaikh Barrera Work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 08/2021. Doing well with no B symptoms. Labs reviewed and CBC is stable. He has no indicators for treatment. Updated Visit, February 23, 2021: Rishi De Leon is a 81 year old male who presents in follow up with CLL. No treatment indications.Mildly fatigued but otherwise no complaints. Otherwise CLL is in check. 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 Had delays in treatment due to concern with leukocytosis Was in the hospital October - December and is still recovering. Current Outpatient Medications Medication Sig diclofenac, EC, (VOLTAREN) 50 mg EC tablet glipiZIDE-metFORMIN (METAGLIP) 2.5-500 mg per tablet triamterene-hydrochlorothiazide (MAXZIDE-25) 37.5-25 mg per tablet simvastatin 40 mg tablet Take 40 mg by mouth daily at bedtime. GABAPENTIN 300 mg capsule Take 300 mg by mouth twice daily. Aspirin 81 mg ORAL Tab Take 81 mg by mouth once daily. DIAZEPAM 2 MG TAB one pill 2-3 times daily ANTIVERT 25MG TABLET one three times daily for dizziness DYAZIDE 37.5/25 CAPSULE one bymouth each day No current facility-administered medications for this visit. ALLERGIES No Known Allergies REVIEW OF SYSTEMS All other reviewed and negative other than HPI. PHYSICAL EXAM: BP 120/59 Pulse 66 Temp 36.6 C (97.9 F) (Temporal) Resp 16 Ht 163.8 cm (5' 4.49 ) Wt 73.4kg (161 lb 12.8 oz) SpO2 97% BMI 27.35 kg/m Exam limited to gross visualization where appropriate due to COVID-19. Gen.: This is an age-appropriate patient in no acute distress. Head: Appears atraumatic with no visible lesions. Eyes: Pupils equally round and reactive to light, extraocular muscles are intact. Neck: Supple. Mouth: Mucous membranes appeared to be moist. Respiratory: Appears to be respiring comfortably. Neurologic: Nonfocal to gross visualization. Alert and oriented 3. Psychiatric: No evidence of inappropriate anxiety or depression. Skin: Visible areas of skin without rash, lesions, wounds or petechiae. LN's negative in cervical, axillary and supraclavicular nodes - no splenomegaly Hemoglobin (g/dL) Date Value 02/23/2021 13.3 Hematocrit (%) Date Value 02/23/2021 40.2 WBC (k/uL) Date Value 02/23/2021 19.85 Platelet Count (k/uL) Date Value 02/23/2021 195 ASSESSMENT: 1. Chronic lymphocytic leukemia (HCC) - ICD9: 204.10, ICD10: C91.10 His counts are stable at this time and he does not have any treatment indications at this time We will see him back in 6 months for follow up and labs. PLAN: 1. Labs in 12 month 2. RTC in 12 months - labs same day Frederick Zapata MD, CPE [place], [place] Nam Richards [facility] [facility] [facility] Evaluation note* Diagnosis Chronic lymphocytic leukemia (HCC)- Primary Chronic lymphoid leukemia, without mention of having achieved remission [facility] noteNo assessment information availableOhio [facility] Work Phone: Evaluation note* Diagnosis Pain- Primary Generalized pain documented in this encounter [facility] note* Diagnosis Chronic lymphocytic leukemia (HCC)- Primary Chronic lymphoid leukemia, without mention of having achieved remission documented in this encounter [facility] general Narrative - Reported* Type Description Date Medical History diabetes Medical History hypertension Medical History hypercholesterolemia Medical History Vertigo Medical History COPD Medical History Stoma Reversal Surgical History Gallbladder Surgical History Kidney Stones Surgical History Appendix Surgical History Hernia Repair Surgical History Tonsils Surgical History Left Carpal/Cubital/[place] Releas Surgical History Stoma Reversal Hospitalization History See above [facility] Other History general Narrative - Reported* Type Description Date Medical History diabetes Medical History hypertension Medical History hypercholesterolemia Medical History Vertigo Medical History COPD Medical History Stoma Reversal Surgical History Gallbladder Surgical History Kidney Stones Surgical History Appendix Surgical History Hernia Repair Surgical History Tonsils Surgical History Left Carpal/Cubital/[place] Releas Surgical History Stoma Reversal Surgical History SKIN CANCER REMOVALS, FOREHEAD, AND BOTH LEGS Hospitalization History See above [facility] Other Reason for referral (narrative)* Diagnostic Procedure Only (Routine) - Authorized Specialty Diagnoses / Procedures Referred By Contac t Referred To Contact XR IMAGING Diagnoses Pain Procedures XR HAND GENERAL 3V PA/LAT/OBL RIGHT RADEX HAND MINIMUM 3 VIEWS Joshua Su PA-C [address] [place] [address] Xr Imaging Referral ID Status Reason Start Date Expiration Date Visits Requested Visits Authorized [id number] Authorized Auto-Generat ed Referral 12/03/2022 01/02/2024 1 1 * Diagnostic Procedure Only (Routine) - Pending Review Specialty Diagnoses / Procedures Referred By Contac t Referred To Contact XR IMAGING Diagnoses Pain Procedures XR HAND GENERAL 3V PA/LAT/OBL LEFT RADEX HAND MINIMUM 3 VIEWS Joshua Su PA-C [address] [place] [address] Xr Imaging Referral ID Status Reason Start Date Expiration Date Visits Requested Visits Authorized [id number] Pending Review Auto-Generat ed Referral 12/03/2022 01/02/2024 1 1 [facility] Summary Purpose Family History No Family History Records FoundNo Family History Records FoundNo Family History Records FoundNo Family History Records FoundNo Family History Records Found Advance Directives No Advanced Directives Records Found Advance Directive Response Recorded Date/ Time Advance Directives No February 25 3:54pm Chief Complaint and Reason for Visit Chief Complaint N50.82 Additional Source Comments (unrecognized sect ion and content) No Status Records FoundNo Status Records FoundNo Status Records FoundNo Status Records FoundNo Status Records Found INFORMATION SOURCE (unrecogn ized section and content) DATE CREATED AUTHOR 10/12/2021 [facility] DATE CREATED AUTHOR AUTHOR'S ORGANIZ ATION 06/02/2022 [facility] DATE CREATED AUTHOR AUTHOR'S ORGANIZ ATION 08/04/2022 [facility] DATE CREATED AUTHOR AUTHOR'S ORGANIZ ATION 08/07/2023 [facility] DATE CREATED AUTHOR AUTHOR'S ORGANIZ ATION 08/11/2023 [facility] Source Comments (unrecognize d section and content) In the event this informatio n is protected by the Federal Confidentiality of Alcohol and Drug Abuse Patient Records regulations: The Federal rules restrict any use of the information to criminally investigate or prosecute any alcohol or drug abuse patient.[facility] the event this information is protected by the Federal Confidentiality of Alcohol and Drug Abuse Patient Records regulations: The Federal rules restrict any use of the information to criminally investigate or prosecute any alcohol or drug abuse patient.[facility] the event this information is protected by the Federal Confidentiality of Alcohol and Drug Abuse Patient Records regulations: The Federal rules restrict any use of the information to criminally investigate or prosecute any alcohol or drug abuse patient.[facility] Reason for Visit (unrecogniz ed section and content) Reason Comments Leukemia Care Teams (unrecognized sec tion and content) Distributed Generation Project Manager Relationship Specialty Start Date End Date Rodríguez Wheat II PCP - General Internal Medicine 05/06/13 Team Status: Inactive Member Role Status Dates Shaikh Destinee MD Primary Care Provider, Attending Sandeep keller Active Team Status: Active Member Role Status Dates Shaikh Destinee MD Primary Care Provider Active Distributed [employer] Project Manager Relationship Specialty Start Date End Date Rodríguez Wheat II PCP - General Internal Medicine 05/06/13 [employer] Project Manager Relationship Specialty Start Date End Date Rodríguez Wheat II, MD PCP - General Internal Medicine 05/06/13 Goals (unrecognized section and content) Goals may be documented in a n alternate sectionNo InformationNo Information FOR RECORDS PERTAINING TO PATIENTS WHO ARE OR HAVE BEEN ENROLLED IN A CHEMICAL DEPENDENCY/SUBSTANCEABUSE PROGRAM, SOME INFORMATION MAY BE OMITTED. This clinical summary was aggregated from multiple sources. Caution should be exercised in using it in the provision of clinical care. This summary normalizes information from multiple sources, and as a consequence, information in this document may materially change the coding, format and clinical context of patient data. In addition, data may be omitted in some cases. CLINICAL DECISIONS SHOULD BE BASED ON THE PRIMARY CLINICAL RECORDS. [facility] [employer] [facility]. provides no warranty or guarantee of the accuracy or completeness of information in this document.
== END 2023-10-24 18:27 | disposition home or self-care (01) ==
PROVIDERS: Physician Assistant; Emergency Provider Emergency Medicine; PCP Internal Medicine
DX: U07.1 COVID-19 (principal)
CPT/HCPCS: 87804; 87811; 99283; J1100

== ENCOUNTER 2023-11-14 16:27 | Outpatient (OUT) | payer OTHER, SELFPAY ==
--- NOTE | 2023-11-14 16:29 | XR_ITS ---
[place] [id number] Patient Name: RISHI DE LEON MRN: [id number] date: 1940 Sex: M Assigned Patient [facility] Current Patient Location: Accession/Order Number: [id number] Exam Date: 11/14/2023 16:37 Report Date: 11/15/2023 13:11 At the request of: SHAIKH DESTINEE Procedure: XR lumbar spine 2-3V EXAM: XR lumbar spine 2-3V HISTORY: 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 TECHNIQUE: 2 views Findings/impression: Satisfactory alignment. Maintained vertebral body heights. Maintained disc spaces. Multilevel endplate degenerative changes and facet arthropathy of the lumbar spine, most prominent from L4 to S1. No acute fracture or significant subluxation. Scattered calcified atherosclerotic disease of the aorta. Electronically authenticated by: SHEREEN PORTILLO Date: 11/15/2023 13:11
== END 2023-11-14 16:28 | disposition home or self-care (01) ==
LOC: RAD 16:27
PROVIDERS: PCP Internal Medicine; Visit Provider Internal Medicine
DX: M54.15 Radiculopathy, thoracolumbar region (principal)
CPT/HCPCS: 72100

== ENCOUNTER 2023-12-03 11:35 | Outpatient (OUT) | payer OTHER, SELFPAY ==
--- NOTE | 2023-12-03 | CONS_ITS ---
CONSULTATION DATE: 12/03/2023 TO: Dr. Barrera CHIEF COMPLAINT: Includes right lower back pain. HISTORY OF PRESENT ILLNESS: Review of systems, past medical/surgical history were obtained and documented on the health questionnaire and is available upon request. He is an 83-year-old male who reports having pain for ?two years?. He is a relatively poor historian. He reports it occurred spontaneously and increased gradually to its present state. He reports, at its worst, it is a 10/10. On today?s visit, he reports it to be between a 1-5/10. He describes the pain as being sharp in character and at times increased with activities such as standing, walking and performing transitioning maneuvers. During a flare up, he usually feels most comfortable in the semi-recumbent position. He denies any change in bowel and bladder habits or new sensorimotor changes in the lower extremities. CURRENT MEDICATION: Includes baclofen 5 mg t.i.d. p.r.n. which he takes only infrequently. EXAM: His examination is notable for patient having no clinical radiculopathy or myelopathy involving his lower extremities. Patient did have a moderate amount of pain with lumbar facet loading maneuvers on the right side at L4-5, L5-S1, with a moderate amount of myofascial spasm of the lumbar paravertebral muscles and the iliocostalis. I do not appreciate any dysfunction involving his hip joint on today?s visit or any sacroiliac joint dysfunction on today?s visit. IMAGING: We did review his lumbosacral spine films notable for mild arthritic changes involving the facet joints at least at the L4-5, L5-S1 levels bilaterally. IMPRESSION: Our impression is patient appears to have chronic pain secondary to lumbosacral spondylosis with facet joint loading pain clinically, on the right side at L4-5, L5-S1. Currently, his symptoms appear to be quiescent. RECOMMENDATIONS: I have recommended considering aquatic therapy. I have informed him that if his pain does increase, to consider proceeding with a diagnostic right sided L4-5, L5-S1 medial bundle branch block under fluoroscopic guidance. He will contemplate these recommendations and reports he will contact our office if he wishes to proceed. As part of providing excellent, safe, comprehensive care, the following was completed at our patient's visit: 1. A medication reconciliation and review to ensure accurate knowledge of current/active medications, including asking our patients to inform us about any [id number] medications or herbal remedies/nutritional supplements/alternative remedies. 2. A review to specifically ensure our patients have had annual screening for: elevated body mass index (BMI, see intake chart for exact total), tobacco use, screening for depression, and screening for unhealthy alcohol use. When screening is concerning, patients are provided with education and the specific recommendation to discuss the concerning health issue and treatment options with their primary care provider. JODY
== END 2023-12-03 11:36 | disposition home or self-care (01) ==
LOC: PM 11:36
PROVIDERS: PCP Internal Medicine; Visit Provider Anesthesiology Pain Medicine
DX: M54.50 Low back pain, unspecified (principal); M47.816 Spondylosis without myelopathy or radiculopathy, lumbar region
CPT/HCPCS: G0463

== ENCOUNTER 2024-02-21 17:49 | Emergency (ER) | payer OTHER, SELFPAY ==
[2024-02-21] VITALS (10 sets, daily range): BP systolic 116–153; BP diastolic 52–116; PULSE 63–90; TEMP 36.7; O2SAT 96–99
--- OUTSIDE RECORDS SUMMARY | 2024-02-21 17:58 | XMS_ITS ---
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 SPECIMEN Ordering Facility: [facility] Address: [address] [place], [place] [address] Performed By: #### 3 084-1, 2532-0, 63940-2 #### [facility] CLIA [id number] [address] [place] [address] Anion gap [Moles/Vol] 9 mmol/L 9 - 18 mmol/L [facility] Anion gap [Moles/Vol] 9 mmol/L Normal 9-18 [facility] Comment on above: Order Comment: Speci men Type: BLOOD SPECIMEN Ordering Facility: [facility] Address: [address] [place], [place] [address] Performed By: #### 3 084-1, 2530, #### [facility] CLIA [id number] [address] [place] [address] AST [Catalytic activity/Vol] 16 U/L 14 - 40 U/L [facility] AST [Catalytic activity/Vol] 16 U/L Normal 14-40 [facility] Comment on above: Order Comment: Speci men Type: BLOOD SPECIMEN Ordering Facility: [facility] Address: [address] [place], [place] [address] Performed By: #### 3 084-1, 2530, #### [facility] CLIA [id number] [address] [place] [address] Bilirubin [Mass/Vol] 0.6 mg/dL 0.2 - 1 .3 mg/dL [facility] Bilirubin [Mass/Vol] 0.6 mg/dL Normal 0.2-1.3 [facility] Comment on above: Order Comment: Speci men Type: BLOOD SPECIMEN Ordering Facility: [facility] Address: [address] [place] [address] Performed By: #### 3 084-1, 253-0, 45048-9 #### [facility] CLIA [id number] [address] [place] [address] Calcium [Mass/Vol] 10.0 mg/dL 8.5 - 10. 2 mg/dL [facility] Calcium [Mass/Vol] 10.0 mg/dL Normal 8.5-10.2 [facility] Comment on above: Order Comment: Speci men Type: BLOOD SPECIMEN Ordering Facility: [facility] Address: [address] [place] [address] Performed By: #### 3 084-1, 0, #### MIQUEL [facility] CLIA [id number] [address] [place] [address] Chloride [Moles/Vol] 103 mmol/L 97 - 10 5 mmol/L [facility] Chloride [Moles/Vol] 103 mmol/L Normal 97-105 [facility] Comment on above: Order Comment: Speci men Type: BLOOD SPECIMEN Ordering Facility: [facility] Address: [address] [place] [address] Performed By: #### 3 084-1, 0, #### [facility] CLIA [id number] [address] [place] [address]168 CO2 [Moles/Vol] 29 mmol/L 22 - 30 mmol/L [facility] CO2 [Moles/Vol] 29 mmol/L Normal 22-30 [facility] Comment on above: Order Comment: Speci men Type: BLOOD SPECIMEN Ordering Facility: [facility] Address: [address] [place] [address] Performed By: #### 3 084-1, 0, #### [facility] CLIA [id number] [address] [place] [address] Creatinine [Mass/Vol] 1.04 mg/dL 0.73 - 1.22 mg/dL [facility] Creatinine [Mass/Vol] 1.04 mg/dL Normal 0.73-1.22 [facility] Comment on above: Order Comment: Speci men Type: BLOOD SPECIMEN Ordering Facility: [facility] Address: [address] [place] [address] Performed By: #### 3 084-1, 0, #### [facility] CLIA [id number] [address] [place] [address] Creatinine and Glomerular filtration rate.predicted panel (S/P/Bld) 70 mL/min/1.73m??? Normal >=60 [facility] Comment on above: Order Comment: Speci men Type: BLOOD SPECIMEN Ordering Facility: [facility] Address: [place] [address] Result Comment: Mandy mated Glomerular Filtration Rate [...] GFR. Performed By: #### 3 084-1, 2532-0, 35208-5 #### [facility] CLIA [id number] [address] [place] [address] Estimated Glomerular Filtration Rate 70 mL/min/1.73m >=60 mL/min/1.73m [facility] Glucose [Mass/Vol] 168 mg/dL High 74 - 99 mg/dL [facility] Glucose [Mass/Vol] 168 mg/dL High 74-99 [facility] Comment on above: Order Comment: Yasmin baumann Type: BLOOD SPECIMEN Ordering Facility: [facility] Address: [address] [id number] Result Comment: The [place] [employer] (ADA) provides guidance for cutoff [...] Standards of Medical Care in Diabetes 2016, [place] [employer]. Diabetes Care. 2016.39(Suppl 1). Performed By: #### 3 084-1, 2532-0, 18281-5 #### [facility] CLIA [id number] [address] [place] [address] Potassium [Moles/Vol] 4.5 mmol/L 3.7 - 5.1 mmol/L [facility] Potassium [Moles/Vol] 4.5 mmol/L Normal 3.7-5.1 [facility] Comment on above: Order Comment: Speci men Type: BLOOD SPECIMEN Ordering Facility: [facility] Address: [address] [place], [place] [address] Performed By: #### 3 084-1, 0, #### [facility] CLIA [id number] [address] [place] [address] Protein [Mass/Vol] 6.8 g/dL 6.3 - 8.0 g/dL [facility] Protein [Mass/Vol] 6.8 g/dL Normal 6.3-8.0 [facility] Comment on above: Order Comment: Speci men Type: BLOOD SPECIMEN Ordering Facility: [facility] Address: [address] [place], [place] [address] Performed By: #### 3 084-1, 0, #### [facility] CLIA [id number] [address] [place] [address] Sodium [Moles/Vol] 141 mmol/L 136 - 144 mmol/L [facility] Sodium [Moles/Vol] 141 mmol/L Normal 136-144 [facility] Comment on above: Order Comment: Speci men Type: BLOOD SPECIMEN Ordering Facility: [facility] Address: [address] [place] [address] Performed By: #### 3 084-1, 0, #### [facility] CLIA [id number] [address] [place] [address]77 Urea nitrogen [Mass/Vol] 23 mg/dL 9 - 24 mg/dL [facility] Urea nitrogen [Mass/Vol] 23 mg/dL Normal 9-24 [facility] Comment on above: Order Comment: Speci men Type: BLOOD SPECIMEN Ordering Facility: [facility] Address: [address] [place] [address] Performed By: #### 3 084-1, 0, #### [facility] CLIA [id number] [address] [place] [address] LD LACTATE DEHYDROon 023 LDH [Catalytic activity/Vol] 193 U/L 135 - 225 U/L [facility] LDH SerPl-cCncon 08-08-2023 LDH [Catalytic activity/Vol] 193 U/L Normal 135-225 [facility] Comment on above: Order Comment: Speci men Type: BLOOD SPECIMEN Ordering Facility: [facility] Address: [address] [place] [address] Result Comment: Hemo lysis present. The origin [...] indicated. Performed By: #### 3 084-1, 2532-0, 04414-8 #### [facility] CLIA [id number] [address] [place] [address]773 URIC ACID BLOODon 08-08-2023 Urate [Mass/Vol] 4.9 mg/dL 4.0 - 8.1 mg/dL [facility] Urate SerPl-mCncon 3 Urate [Mass/Vol] 4.9 mg/dL Normal 4.0-8.1 [facility] Comment on above: Order Comment: Speci men Type: BLOOD SPECIMEN Ordering Facility: [facility] Address: [address] [place] [address] Performed By: #### 3 084-1, 2532-0, 97694-2 #### [facility] CLIA [id number] [address] [place] [address] 13287 ECHOCARDIO M/2D COMPLETEon 1 09-30-2021 ECHOCARDIO M/2D COMPLETE Patient: RISHI DE LEON Exam Date: 07/31/2022 : 1940 Gender:M Ordering : SUZANNE MARIN CNP Admission #: [id number] Family : Order #: [id number] CLICK HERE TO VIEW EXAM ECHOCARDIOGRAM REPORT [...] (Peak Des): 3.25 cm2, 3.25 cm2 Deceleration [place]: 0.65 m/s2 Pressure Half-Time: 897.66 ms Peak [...] Mendes M.D. on 08/01/2022 at 15:23 Normal [facility] GLYCOHEMOGLOBIN A1Con 2021 ADA RECOMMENDATION SEE BELOW Normal [facility] Comment on above: Result Comment: ADA RECOMMENDED LIMIT 4.0 - 6.0 ADA THERAPEUTIC TARGET < 7.0 ACTION SUGGESTED > 7.0 Performed By: #### A 1C #### [facility] [address] [address] [address] Estrada Carpenter Glucose [Mass/Vol] 206 mg/dL Normal [facility] Comment on above: Performed By: #### A 1C #### [facility] [address] [address] [address] Estrada Carpenter HbA1c (Bld) [Mass fraction] 8.8 % Critically high 4.5-6.2 [facility] Comment on above: Performed By: #### A 1C #### [facility] [address] [address] [address] Estrada Carpenter PROF CHEM 8 (BAS METB)on Anion gap [Moles/Vol] 10.7 mmol/L Normal [facility] Comment on above: Performed By: #### B MP #### [facility] [address] [place] [address] Dr. Estrada Carpenter Calcium [Mass/Vol] 8.8 mg/dL Normal 8.5-10.1 [facility] Comment on above: Performed By: #### B MP #### [facility] [address] [place] [address] Dr. Estrada Carpenter Chloride [Moles/Vol] 103 mmol/L Normal 98-107 [facility] Comment on above: Performed By: #### B MP #### [facility] [address] [place] [address] Dr. Estrada Carpenter CO2 [Moles/Vol] 26.4 mmol/L Normal 21.0-32.0 [facility] Comment on above: Performed By: #### B MP #### [facility] [address] [place] [address] Dr. Estrada Carpenter Creatinine [Mass/Vol] 0.89 mg/dL Normal 0.70-1.30 [facility] Comment on above: Performed By: #### B MP #### [facility] [address] [place] [address] Dr. Estrada Carpenter EGFR-AF PUERTO RICAN >60 Normal >=60 [facility] Comment on above: Performed By: #### B MP #### [facility] [address] [place] [address] Dr. Estrada Carpenter EGFR-NON AF PUERTO RICAN >60 Normal >=60 [facility] Comment on above: Performed By: #### B MP #### [facility] [address] [place] [address] Dr. Estrada Carpenter Glucose [Mass/Vol] 167 mg/dL Critically high 74-106 [facility] Comment on above: Performed By: #### B MP #### [facility] [address] [address] [address] Estrada Carpenter Potassium [Moles/Vol] 4.1 mmol/L Normal 3.5-5.1 [facility] Comment on above: Performed By: #### B MP #### [facility] [address] [address] [address] Estrada Carpenter Sodium [Moles/Vol] 136 mmol/L Normal 136-145 [facility] Comment on above: Performed By: #### B MP #### [facility] [address] [address] [address] Estrada Carpenter Urea nitrogen [Mass/Vol] 17.0 mg/dL Normal 7.0-18.0 [facility] Comment on above: Performed By: #### B MP #### [facility] [address] [address] [address] Estrada Carpenter Urea nitrogen/Creatinine [Mass ratio] 19.1 mg/mg Normal [facility] Comment on above: Performed By: #### B MP #### [facility] [address] [address] [address] 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 Findings seen on today's study likely represents fat protruding through the prior colostomy site. Impression dictated by: Tan Zapien Jr., D.O.05/08/2022 6:39 PM Dictation Location: [place] [address] Addendum Dictated By: Tan Zapien Jr, DO [...] Zapien Jr., D.O.05/08/2022 5:59 PM Dictation Location: [place] [address] Tech: Justa Grey Transcribed By: DEIDRA 05/08/221758 Dictated By: Tan Zapien Jr, DO 05/08/22 174 Signed By: 05/08/221758 Normal [facility] US scrotumon 05-08-2022 US scrotum [facility] [place] [address] Ultrasound Report Signed Patient: Rishi De Leon MR#: [id number] : 1940 Acct:[id number] Age/Sex: 82 / M ADM Date: 05/08/22 Loc: Room: Type: [facility] Attending Dr: Shaikh Holly CARIAS Ordering Provider: Shaikh Holly MD Date of Service: 05/08/22 US/US scrotum: N50.82 Copies to: Shaikh Holly MD Scrotal ultrasound. Reason for exam: Left [...] Zapien Jr., D.O.05/08/2022 6:16 PM Dictation Location: [place] [address] Tech: Justa Grey Transcribed By: [facility] 05/08/221815 Dictated By: Tan Zapien Jr, DO 05/08/221811 Signed By: 05/08/221815 Normal [facility] CBC W MANUAL DIFFon 01-04-20 ATYPICAL LYMPH # Normal [facility] Comment on above: Performed By: #### C KATIE #### [facility] [address] [place] [address] Dr. Estrada Carpenter ATYPICAL LYMPH % Normal [facility] Comment on above: Performed By: #### C KATIE #### [facility] [address] [address] [address] Estrada Carpenter BAND # 0.0 103/ul Normal 0.0-0.3 [facility] Comment on above: Performed By: #### C KATIE #### [facility] [address] [address] [address] Estrada Carpenter BAND % 0 % Normal 0-5 [facility] Comment on above: Performed By: #### C KATIE #### [facility] [address] [place] [address] Dr. Estrada Carpenter BASOM # 0.00 103/ul Normal 0.00-0.10 [facility] Comment on above: Performed By: #### C KATIE #### [facility] [address] [address] [address] Estrada Carpenter BASOM % 0.0 % Critically low 0.2-2.0 [facility] Comment on above: Performed By: #### C BCMAN #### [facility] [address] [address] [address] Estrada Carpenter BLAST # Normal [facility] Comment on above: Performed By: #### C BCMAN #### [facility] [address] [address] [address] Estrada Carpenter BLAST % Normal [facility] Comment on above: Performed By: #### C BCDEEPTI #### [facility] [address] [place] [address] Dr. Estrada Carpenter CORRECTED WBC Normal 4.0-11.0 [facility] Comment on above: Performed By: #### C BCDEEPTI #### [facility] [address] [place] [address] Dr. Estrada Carpenter EOS # 0.00 103/ul Normal 0.00-0.70 [facility] Comment on above: Performed By: #### C BCDEEPTI #### [facility] [address] [place] [address] Dr. Estrada Carpenter EOS% 0.0 % Critically low 0.9-7.0 [facility] Comment on above: Performed By: #### C BCDEEPTI #### [facility] [address] [place] [address] Dr. Estrada Carpenter HCT 44.2 % Normal 42.0-54.0 [facility] Comment on above: Performed By: #### C BCDEEPTI #### [facility] [address] [place] [address] Dr. Estrada Carpenter HGB 13.8 g/dl Critically low 14.0-18.0 [facility] Comment on above: Performed By: #### C BCMAN #### [facility] [address] [place] [address] Dr. Estrada Carpenter LYMPHM # 14.11 103/ul Critically high 1.20-3.80 [facility] Comment on above: Performed By: #### C KATIE #### [facility] [address] [place] [address] Dr. Estrada Carpenter LYMPHM% 72.0 % Critically high 20.5-60.0 [facility] Comment on above: Performed By: #### C KATIE #### [facility] [address] [place] [address] Dr. Estrada Carpenter MCH 31.3 pg Normal 25.9-34.0 [facility] Comment on above: Performed By: #### C KATIE #### [facility] [address] [place] [address] Dr. Estrada Carpenter MCHC 31.2 g/dl Normal 29.9-35.2 [facility] Comment on above: Performed By: #### C KATIE #### [facility] [address] [place] [address] Dr. Estrada Carpenter MCV 100.2 fL Critically high 80.0-94.0 [facility] Comment on above: Performed By: #### C KATIE #### [facility] [address] [place] [address] Dr. Estrada Carpenter METAMYELOCYTE # Normal [facility] Comment on above: Performed By: #### C KATIE #### [facility] [address] [place] [address] Dr. Estrada Carpenter METAMYELOCYTE % Normal [facility] Comment on above: Performed By: #### C KATIE #### [facility] [address] [place] [address] Dr. Estrada Carpenter MONOM# 0.78 103/ul Normal 0.30-0.80 [facility] Comment on above: Performed By: #### C KATIE #### [facility] [address] [place] [address] Dr. Estrada Carpenter MONOM% 4.0 % Normal 1.7-12.0 [facility] Comment on above: Performed By: #### C KATIE #### [facility] [address] [place] [address] Dr. Estrada Carpenter MPV 12.1 fL Normal 9.5-13.5 [facility] Comment on above: Performed By: #### C BCMAN #### [facility] [address] [address] [address] Estrada Carpenter MYELOCYTE # Normal [facility] Comment on above: Performed By: #### C BCDEEPTI #### [facility] [address] [address] [address] Estrada Carpenter MYELOCYTE % Normal [facility] Comment on above: Performed By: #### C BCDEEPTI #### [facility] [address] [address] [address] Estrada Carpenter NRBC Normal [facility] Comment on above: Performed By: #### C KATIE #### [facility] [address] [place] [address] Dr. Estrada Carpenter PLT 166 103/ul Normal 150-450 [facility] Comment on above: Performed By: #### C KATIE #### [facility] [address] [place] [address] Dr. Estrada Carpenter RBC 4.41 106/ul Critically low 4.70-6.10 [facility] Comment on above: Performed By: #### C KATIE #### [facility] [address] [place] [address] Dr. Estrada Carpenter RDW 14.9 % Normal 11.0-15.0 [facility] Comment on above: Performed By: #### C KATIE #### [facility] [address] [place] [address] Dr. Estrada Carpenter SEG # 4.70 103/ul Normal 1.40-6.50 [facility] Comment on above: Performed By: #### C BCDEEPTI #### [facility] [address] [place] [address] Dr. Estrada Carpenter SEG % 24.0 % Critically low 43.0-75.0 [facility] Comment on above: Performed By: #### C KATIE #### [facility] [address] [address] [address] Estrada Carpenter WBC 19.6 103/ul Critically high 4.0-11.0 [facility] [facility] Comment on above: Performed By: #### C BCMAN #### [facility] [address] [address] [address] Estrada Carpenter GLYCOHEMOGLOBIN A1Con 2021 ADA RECOMMENDATION SEE BELOW Normal [facility] Comment on above: Result Comment: ADA RECOMMENDED LIMIT 4.0 - 6.0 ADA THERAPEUTIC TARGET < 7.0 ACTION SUGGESTED > 7.0 Performed By: #### A 1C #### [facility] [address] [address] [address] Estrada Carpenter Glucose [Mass/Vol] 151 mg/dL Normal [facility] Comment on above: Performed By: #### A 1C #### [facility] [address] [place] [address] Dr. Estrada Carpenter HbA1c (Bld) [Mass fraction] 6.9 % Critically high 4.5-6.2 [facility] [place] Comment on above: Performed By: #### A 1C #### [facility] [address] [place] [address] Dr. Estrada Carpenter LIPID PROFILEon 01-03-2022 CHOL-HDL RATIO NORM SEE BELOW Normal [facility] Comment on above: Result Comment: 3.3 - 4.4 LOW RISK 4.4 - 7.1 AVERAGE RISK 7.1 - 11.0 MODERATE RISK >11.0 HIGH RISK Performed By: #### C MP, LIPID #### [facility] [address] [place] [address] Dr. Estrada Carpenter Cholesterol [Mass/Vol] 158 mg/dL Normal <=200 [facility] [place] Comment on above: Performed By: #### C MP, LIPID #### [facility] [address] [place] [address] Dr. Estrada Carpenter Cholesterol in HDL [Mass/Vol] 42 mg/dL Normal 40-60 [facility] [place] Comment on above: Performed By: #### C MP, LIPID #### [facility] [address] [address] [address] Estrada Carpenter Cholesterol in LDL [Mass/Vol] 85.0 mg/dL Normal [facility] [place] Comment on above: Performed By: #### C MP, LIPID #### [facility] [address] [place] [address] Dr. Estrada Carpenter Cholesterol.total/Ch olesterol in HDL [Mass ratio] 3.8 {ratio} Normal [facility] [place] Comment on above: Performed By: #### C MP, LIPID #### [facility] [address] [place] [address] Dr. Estrada Carpenter HDL NORMAL > or = 60 mg/dl - LO W CARDIOVASCULAR RISK <40 mg/dl - HIGH CARDIOVASCULAR RISK Normal [facility] [place] Comment on above: Performed By: #### C MP, LIPID #### [facility] [address] [place] [address] Dr. Estrada Carpenter LDL CALC NORMAL SEE BELOW Normal [facility] Comment on above: Result Comment: <100 mg/dl OPTIMAL 100 - 129 mg/dl NEAR OR ABOVE OPTIMAL 130 - 159 mg/dl BORDERLINE HIGH 160 - 189 mg/dl HIGH >190 mg/dl VERY HIGH Performed By: #### C MP, LIPID #### [facility] [address] [place] [address] Dr. Estrada Carpenter Triglyceride [Mass/Vol] 155 mg/dL Critically high <=150 [facility] [place] Comment on above: Performed By: #### C MP, LIPID #### [facility] [address] [place] [address] Dr. Estrada Carpenter VLDL CALC 31.0 mg/dL Normal [facility] [place] Comment on above: Performed By: #### C MP, LIPID #### [facility] [address] [place] [address] Dr. Estrada Carpenter PROF 14(COMP METB)on 022 Albumin [Mass/Vol] 3.8 g/dL Normal 3.4-5.0 [facility] Comment on above: Performed By: #### C MP, LIPID #### [facility] [address] [place] [address] Dr. Estrada Carpenter Albumin/Globulin [Mass ratio] 1.3 {ratio} Normal [facility] [place] Comment on above: Performed By: #### C MP, LIPID #### [facility] [address] [address] [address] Estrada Carpenter ALP [Catalytic activity/Vol] 92 U/L Normal 46-116 [facility] [place] Comment on above: Performed By: #### C MP, LIPID #### [facility] [address] [place] [address] Dr. Estrada Carpenter ALT [Catalytic activity/Vol] 26 U/L Normal 16-63 [facility] [place] Comment on above: Performed By: #### C MP, LIPID #### [facility] [address] [address] [address] Estrada Carpenter Anion gap [Moles/Vol] 11.2 mmol/L Normal [facility] [place] Comment on above: Performed By: #### C MP, LIPID #### [facility] [address] [place] [address] Dr. Estrada Carpenter AST [Catalytic activity/Vol] 17 U/L Normal 15-37 [facility] [place] Comment on above: Performed By: #### C MP, LIPID #### [facility] [address] [place] [address] Dr. Estrada Carpenter Bilirubin [Mass/Vol] 0.5 mg/dL Normal 0.2-1.0 [facility] [place] Comment on above: Performed By: #### C MP, LIPID #### [facility] [address] [place] [address] Dr. Estrada Carpenter Calcium [Mass/Vol] 8.4 mg/dL Critically low 8.5-10.1 [facility] Comment on above: Performed By: #### C MP, LIPID #### [facility] [address] [place] [address] Dr. Estrada Carpenter Chloride [Moles/Vol] 102 mmol/L Normal 98-107 [facility] [place] Comment on above: Performed By: #### C MP, LIPID #### [facility] [address] [place] [address] Dr. Estrada Carpenter CO2 [Moles/Vol] 29.3 mmol/L Normal 21.0-32.0 [facility] Comment on above: Performed By: #### C MP, LIPID #### [facility] [address] [place], [place] [id number] Dr. Estrada Carpenter Creatinine [Mass/Vol] 0.89 mg/dL Normal 0.70-1.30 [facility] [place] Comment on above: Performed By: #### C MP, LIPID #### [facility] [address] [place] [address] Dr. Estrada Carpenter EGFR-AF PUERTO RICAN >60 Normal >=60 [facility] Comment on above: Performed By: #### C MP, LIPID #### [facility] [address] [place] [address] Dr. Estrada Carpenter EGFR-NON AF PUERTO RICAN >60 Normal >=60 [facility] [place] Comment on above: Performed By: #### C MP, LIPID #### [facility] [address] [place] [address] Dr. Estrada Carpenter Globulin (S) [Mass/Vol] 3.0 g/dL Normal [facility] [place] Comment on above: Performed By: #### C MP, LIPID #### [facility] [address] [place] [address] Dr. Estrada Carpenter Glucose [Mass/Vol] 145 mg/dL Critically high 74-106 [facility] Comment on above: Performed By: #### C MP, LIPID #### [facility] [address] [place] [address] Dr. Estrada Carpenter Potassium [Moles/Vol] 4.5 mmol/L Normal 3.5-5.1 [facility] [place] Comment on above: Performed By: #### C MP, LIPID #### [facility] [address] [place] [address] Dr. Estrada Carpenter Protein [Mass/Vol] 6.8 g/dL Normal 6.1-8.2 [facility] Comment on above: Performed By: #### C MP, LIPID #### [facility] [address] [place] [address] Dr. Estrada Carpenter Sodium [Moles/Vol] 138 mmol/L Normal 136-145 [facility] Comment on above: Performed By: #### C MP, LIPID #### [facility] [address] [place] [address] Dr. Estrada Carpenter Urea nitrogen [Mass/Vol] 15.0 mg/dL Normal 7.0-18.0 [facility] [place] Comment on above: Performed By: #### C MP, LIPID #### [facility] [address] [place], [place] [address] Dr. Estrada Carpenter Urea nitrogen/Creatinine [Mass ratio] 16.9 mg/mg Normal [facility] [place] Comment on above: Performed By: #### C MP, LIPID #### [facility] [address] [place], [place] [address] Dr. Estrada Carpenter BASIC METABOLIC PANELon 12-3 -2020 Calcium [Mass/Vol] 8.9 mg/dL Normal 8.6-10.3 [facility] Comment on above: Order Comment: No: D o not add to previous draw Performed By: #### 1 69, 41673 ####[facility] [facility] [place] [address], [facility] Chloride [Moles/Vol] 107 mmol/L Normal 98-107 [facility] Comment on above: Order Comment: No: D o not add to previous draw Performed By: #### 1 69, 78498 ####[facility] [facility] [address], [place] CO2 [Moles/Vol] 29 mmol/L Normal 21-31 [facility] Comment on above: Order Comment: No: D o not add to previous draw Performed By: #### 1 69, 72797 ####[facility] [place] [address], [place] Creatinine [Mass/Vol] 0.79 mg/dL Normal 0.70-1.30 [facility] Comment on above: Order Comment: No: D o not add to previous draw Performed By: #### 1 69, 97266 ####[facility] [place] [address], [place] GFR/1.73 sq M.predicted among blacks MDRD (S/P/Bld) [Vol rate/Area] mL/min/{1.73_m2} Normal >60 [facility] Comment on above: Order Comment: No: D o not add to previous draw Result Comment: Calc ulation may not be valid for patients over 70 years Performed By: #### 1 0, 66991 ####[facility] [facility] [address], [facility] GFR/1.73 sq M.predicted among non-blacks MDRD (S/P/Bld) [Vol rate/Area] mL/min/{1.73_m2} Normal >60 [facility] Comment on above: Order Comment: No: D o not add to previous draw Result Comment: Calc ulation may not be valid for patients over 70 years Performed By: #### 1 69, 66477 ####[facility] [facility] [address], [place] Glucose [Mass/Vol] 147 mg/dL High 70-100 [facility] Comment on above: Order Comment: No: D o not add to previous draw Performed By: #### 1 69, 96813 ####[facility] [place] [address], [place] Potassium [Moles/Vol] 4.1 mmol/L Normal 3.5-5.1 [facility] Comment on above: Order Comment: No: D o not add to previous draw Performed By: #### 1 69, 73051 ####[facility] [place] [place] [address], [place] Sodium [Moles/Vol] 139 mmol/L Normal 136-145 [facility] Comment on above: Order Comment: No: D o not add to previous draw Performed By: #### 1 69, 72666 ####[facility] [place] [address], [place] Urea nitrogen [Mass/Vol] 22 mg/dL Normal 7-25 [facility] Comment on above: Order Comment: No: D o not add to previous draw Performed By: #### 1 0070, 15260 ####[facility] CBC COMPLETE BLOOD COUNTon Erythrocyte distribution width (RBC) [Ratio] 14.9 % Normal 11.5-15.0 [facility] Comment on above: Order Comment: No: D o not add to previous draw Performed By: #### 5 0608 ####[facility] Hematocrit (Bld) [Volume fraction] 38.1 % Low 39.0-50.0 [facility] Comment on above: Order Comment: No: D o not add to previous draw Performed By: #### 5 0608 ####[facility] Hemoglobin (Bld) [Mass/Vol] 12.2 g/dL Low 13.0-17.0 [facility] Comment on above: Order Comment: No: D o not add to previous draw Performed By: #### 5 0608 ####[place] [id number] MCH (RBC) [Entitic mass] 31.0 pg Normal 27.0-33.0 [facility] Comment on above: Order Comment: No: D o not add to previous draw Performed By: #### 5 0608 ####[facility] MCHC (RBC) [Mass/Vol] 32.0 g/dL Normal 32.0-35.0 [facility] Comment on above: Order Comment: No: D o not add to previous draw Performed By: #### 5 0608 ####[facility] [place] [address] MCV (RBC) [Entitic vol] 96.9 fL Normal 82.0-98.0 [facility] Comment on above: Order Comment: No: D o not add to previous draw Performed By: #### 5 0608 ####[facility] [facility] [place] [address], [facility] Nucleated RBC/100 WBC (Bld) [Ratio] 0 % Normal 0-0 [facility] Comment on above: Order Comment: No: D o not add to previous draw Performed By: #### 5 0608 ####[facility] [facility] [place] [address], [facility] PLAT CNT 262 10*3/uL Normal 150-400 [facility] Comment on above: Order Comment: No: D o not add to previous draw Performed By: #### 5 0608 ####[facility] [facility] [place] [address], [facility] RBC (Bld) [#/Vol] 3.93 10*6/uL Low 4.20-5.70 [facility] Comment on above: Order Comment: No: D o not add to previous draw Performed By: #### 5 0608 ####[address] [facility] [place] [address], [facility] WBC (Bld) [#/Vol] 24.04 10*3/uL High 4.00-10.60 [facility] Comment on above: Order Comment: No: D o not add to previous draw Performed By: #### 5 0608 ####[facility] [facility] [place] [address], [facility] MAGNESIUM BLOODon 08-31-2021 Magnesium [Mass/Vol] 2.0 mg/dL Normal 1.9-2.7 [facility] Comment on above: Order Comment: No: D o not add to previous draw Performed By: #### 1 0070, 00435 ####[facility] [facility] [place] [address], [facility] POC GLUCOSE LABon 08-31-2021 Glucose [Mass/Vol] 133 mg/dL High 70-100 [facility] Comment on above: Performed By: #### 8 5499 ####[facility] [facility].[address] Glucose [Mass/Vol] 150 mg/dL High 70-100 [facility] Comment on above: Performed By: #### 8 5499 ####[facility] [facility].[address] POC SARS COV2 ANTIGEN NEGATI VEon 08-31-2021 POC SARS COV2 ANTIGEN NEG Negative Normal NEGATIVE [facility] Comment on above: Result Comment: Nega tive [...] of clinicalsigns and symptoms consistent with COVID-19.The [facility] COVID-19 Ag Card is a lateral flow immunoassay intended forthe qualitative detection of nucleocapsid protein antigen [id number] in direct nasal swabs from individuals within [...] Certificate ofAccreditation. Performed By: #### 3 1977 ####[facility] BASIC METABOLIC PANELon - Calcium [Mass/Vol] 8.3 mg/dL Low 8.6-10.3 [facility] Comment on above: Order Comment: No: D o not add to previous draw Performed By: #### 0 0071, 19121, 35562 ####[facility] [place] [address], [facility] Chloride [Moles/Vol] 110 mmol/L High 98-107 [facility] Comment on above: Order Comment: No: D o not add to previous draw Performed By: #### 0 0071, 67386, 83226 ####[facility] [place] [address], [facility] CO2 [Moles/Vol] 23 mmol/L Normal 21-31 [facility] Comment on above: Order Comment: No: D o not add to previous draw Performed By: #### 0 0071, 29569, 72281 ####[facility] [place] [address], [facility] Creatinine [Mass/Vol] 0.83 mg/dL Normal 0.70-1.30 [facility] Comment on above: Order Comment: No: D o not add to previous draw Performed By: #### 0 0071, 65467, 21854 ####[facility] [place] [address], [facility] GFR/1.73 sq M.predicted among blacks MDRD (S/P/Bld) [Vol rate/Area] mL/min/{1.73_m2} Normal >60 [facility] Comment on above: Order Comment: No: D o not add to previous draw Result Comment: Calc ulation may not be valid for patients over 70 years Performed By: #### 0 0071, 39554, 45412 ####[facility] [place] [address], [facility] GFR/1.73 sq M.predicted among non-blacks MDRD (S/P/Bld) [Vol rate/Area] mL/min/{1.73_m2} Normal >60 [facility] Comment on above: Order Comment: No: D o not add to previous draw Result Comment: Calc ulation may not be valid for patients over 70 years Performed By: #### 0 0071, 18960, 16810 ####[facility] [place] [address], [facility] Glucose [Mass/Vol] 142 mg/dL High 70-100 [facility] Comment on above: Order Comment: No: D o not add to previous draw Performed By: #### 0 0071, 89260, 65396 ####[facility] [place] [address], [facility] Potassium [Moles/Vol] 3.4 mmol/L Low 3.5-5.1 [facility] Comment on above: Order Comment: No: D o not add to previous draw Performed By: #### 0 0071, 75343, 52271 ####[facility] [place] [address], [facility] Sodium [Moles/Vol] 141 mmol/L Normal 136-145 [facility] Comment on above: Order Comment: No: D o not add to previous draw Performed By: #### 0 0071, 90336, 77797 ####[facility] [place] [address], [facility] Urea nitrogen [Mass/Vol] 19 mg/dL Normal 7-25 [facility] Comment on above: Order Comment: No: D o not add to previous draw Performed By: #### 0 0071, 79912, 61508 ####[facility] [place] [address], [facility] CBC COMPLETE BLOOD COUNTon Erythrocyte distribution width (RBC) [Ratio] 14.6 % Normal 11.5-15.0 [facility] Comment on above: Order Comment: No: D o not add to previous draw Performed By: #### 5 0608 ####[facility] Hematocrit (Bld) [Volume fraction] 32.9 % Low 39.0-50.0 [facility] Comment on above: Order Comment: No: D o not add to previous draw Performed By: #### 5 0608 ####[address] Hemoglobin (Bld) [Mass/Vol] 11.0 g/dL Low 13.0-17.0 [facility] Comment on above: Order Comment: No: D o not add to previous draw Performed By: #### 5 0608 ####[address] MCH (RBC) [Entitic mass] 31.4 pg Normal 27.0-33.0 [facility] Comment on above: Order Comment: No: D o not add to previous draw Performed By: #### 5 0608 ####[address] MCHC (RBC) [Mass/Vol] 33.4 g/dL Normal 32.0-35.0 [facility] Comment on above: Order Comment: No: D o not add to previous draw Performed By: #### 5 0608 ####[address] MCV (RBC) [Entitic vol] 94.0 fL Normal 82.0-98.0 [facility] Comment on above: Order Comment: No: D o not add to previous draw Performed By: #### 5 0608 ####[address] Nucleated RBC/100 WBC (Bld) [Ratio] 0 % Normal 0-0 [facility] Comment on above: Order Comment: No: D o not add to previous draw Performed By: #### 5 0608 ####[address] [place] [address], [facility] PLAT CNT 214 10*3/uL Normal 150-400 [facility] Comment on above: Order Comment: No: D o not add to previous draw Performed By: #### 5 0608 ####[facility] [facility] [place] [address], [facility] RBC (Bld) [#/Vol] 3.50 10*6/uL Low 4.20-5.70 [facility] Comment on above: Order Comment: No: D o not add to previous draw Performed By: #### 5 0608 ####[place] [address] [facility] [place] [address], [facility] WBC (Bld) [#/Vol] 17.28 10*3/uL High 4.00-10.60 [facility] Comment on above: Order Comment: No: D o not add to previous draw Performed By: #### 5 0608 ####[facility] [facility].[address] MAGNESIUM BLOODon 08-30-2021 Magnesium [Mass/Vol] 1.8 mg/dL Low 1.9-2.7 [facility] Comment on above: Order Comment: No: D o not add to previous draw Performed By: #### 0 0071, 29814, 04566 ####[facility] [facility] [place] [address], [facility] PHOSPHORUS BLOODon Phosphate [Mass/Vol] 3.4 mg/dL Normal 2.5-5.0 [facility] Comment on above: Order Comment: No: D o not add to previous draw Performed By: #### 0 0071, 27739, 72312 ####[facility] [facility] [place] [address], [facility] POC GLUCOSE LABon 08-30-2021 Glucose [Mass/Vol] 145 mg/dL High 70-100 [facility] Comment on above: Performed By: #### 8 5499 ####[facility] [place] [address], [place] Glucose [Mass/Vol] 164 mg/dL High 70-100 [facility] Comment on above: Performed By: #### 8 5499 ####[facility] [place] [address], [place] Glucose [Mass/Vol] 146 mg/dL High 70-100 [facility] Comment on above: Performed By: #### 8 5499 ####[facility] [place] [address], [place] Glucose [Mass/Vol] 212 mg/dL High 70-100 [facility] Comment on above: Performed By: #### 8 5499 ####[facility] [place] [address], [place] BASIC METABOLIC PANELon 12-2 Calcium [Mass/Vol] 8.2 mg/dL Low 8.6-10.3 [facility] Comment on above: Order Comment: No: D o not add to previous draw Performed By: #### 4 1000, 83943, 68830 ####[facility] [place] [address], [place] Chloride [Moles/Vol] 111 mmol/L High 98-107 [facility] Comment on above: Order Comment: No: D o not add to previous draw Performed By: #### 4 1000, 97841, 74296 ####[facility] [place] [address], [place] CO2 [Moles/Vol] 21 mmol/L Normal 21-31 [facility] Comment on above: Order Comment: No: D o not add to previous draw Performed By: #### 4 1000, 73874, 40925 ####[facility] [place] [address], [facility] Creatinine [Mass/Vol] 0.70 mg/dL Normal 0.70-1.30 [facility] Comment on above: Order Comment: No: D o not add to previous draw Performed By: #### 4 1000, 05308, 71069 ####[facility] [facility] [place] [address], [facility] GFR/1.73 sq M.predicted among blacks MDRD (S/P/Bld) [Vol rate/Area] mL/min/{1.73_m2} Normal >60 [facility] Comment on above: Order Comment: No: D o not add to previous draw Result Comment: Calc ulation may not be valid for patients over 70 years Performed By: #### 4 1000, 98235, 99596 ####[place] [address] [facility] [place] [address], [facility] GFR/1.73 sq M.predicted among non-blacks MDRD (S/P/Bld) [Vol rate/Area] mL/min/{1.73_m2} Normal >60 [facility] Comment on above: Order Comment: No: D o not add to previous draw Result Comment: Calc ulation may not be valid for patients over 70 years Performed By: #### 4 1000, 77883, 39902 ####[facility] [facility] [address], [facility] Glucose [Mass/Vol] 148 mg/dL High 70-100 [facility] Comment on above: Order Comment: No: D o not add to previous draw Performed By: #### 4 1000, [address]13, [id number] ####[facility] [place] [address], [facility] Potassium [Moles/Vol] 3.6 mmol/L Normal 3.5-5.1 [facility] Comment on above: Order Comment: No: D o not add to previous draw Performed By: #### 4 1000, 43706, 10612 ####[facility] Sodium [Moles/Vol] 140 mmol/L Normal 136-145 [facility] Comment on above: Order Comment: No: D o not add to previous draw Performed By: #### 4 1000, 23733, 16375 ####[address] Urea nitrogen [Mass/Vol] 19 mg/dL Normal 7-25 [facility] Comment on above: Order Comment: No: D o not add to previous draw Performed By: #### 4 1000, 11592, 54239 ####[address] CBC COMPLETE BLOOD COUNTon 10-30-2020 Erythrocyte distribution width (RBC) [Ratio] 14.6 % Normal 11.5-15.0 [facility] Comment on above: Order Comment: No: D o not add to previous draw Performed By: #### 5 0608 ####[address] Hematocrit (Bld) [Volume fraction] 33.1 % Low 39.0-50.0 [facility] Comment on above: Order Comment: No: D o not add to previous draw Performed By: #### 5 0608 ####[address] Hemoglobin (Bld) [Mass/Vol] 10.7 g/dL Low 13.0-17.0 [facility] Comment on above: Order Comment: No: D o not add to previous draw Performed By: #### 5 0608 ####[address] MCH (RBC) [Entitic mass] 31.3 pg Normal 27.0-33.0 [facility] Comment on above: Order Comment: No: D o not add to previous draw Performed By: #### 5 0608 ####[facility] [facility] [place] [address], [facility] MCHC (RBC) [Mass/Vol] 32.3 g/dL Normal 32.0-35.0 [facility] Comment on above: Order Comment: No: D o not add to previous draw Performed By: #### 5 0608 ####[facility] [facility] [place] [address], [facility] MCV (RBC) [Entitic vol] 96.8 fL Normal 82.0-98.0 [facility] Comment on above: Order Comment: No: D o not add to previous draw Performed By: #### 5 0608 ####[facility] [facility] [place] [address], [facility] Nucleated RBC/100 WBC (Bld) [Ratio] 0 % Normal 0-0 [facility] Comment on above: Order Comment: No: D o not add to previous draw Performed By: #### 5 0608 ####[facility] [facility] [place] [address], [facility] PLAT CNT 167 10*3/uL Normal 150-400 [facility] Comment on above: Order Comment: No: D o not add to previous draw Performed By: #### 5 0608 ####[facility] [place] [address].[place] [address], [facility] RBC (Bld) [#/Vol] 3.42 10*6/uL Low 4.20-5.70 The [facility] Comment on above: Order Comment: No: D o not add to previous draw Performed By: #### 5 0608 ####[facility] [place] [address].[place] [address], [facility] WBC (Bld) [#/Vol] 16.20 10*3/uL High 4.00-10.60 [facility] Comment on above: Order Comment: No: D o not add to previous draw Performed By: #### 5 0608 ####[facility] [place] [address], [place] MAGNESIUM BLOODon 08-29-2021 Magnesium [Mass/Vol] 1.8 mg/dL Low 1.9-2.7 [facility] Comment on above: Order Comment: No: D o not add to previous draw Performed By: #### 4 1000, 58186, 27308 ####[facility] [place] [address], [place] PHOSPHORUS BLOODon Phosphate [Mass/Vol] 3.1 mg/dL Normal 2.5-5.0 [facility] Comment on above: Order Comment: No: D o not add to previous draw Performed By: #### 4 1000, 37366, 57358 ####[facility] [place] [address], [place] POC GLUCOSE LABon 08-29-2021 Glucose [Mass/Vol] 164 mg/dL High 70-100 [facility] Comment on above: Performed By: #### 8 5499 ####[facility] [place] [address], [place] Glucose [Mass/Vol] 166 mg/dL High 70-100 [facility] Comment on above: Performed By: #### 8 5499 ####[facility] [place] [address], [place] Glucose [Mass/Vol] 142 mg/dL High 70-100 [facility] Comment on above: Performed By: #### 8 5499 ####[facility] [place] [address], [place] Glucose [Mass/Vol] 145 mg/dL High 70-100 [facility] Comment on above: Performed By: #### 8 5499 ####[facility] [place] [address], [place] Glucose [Mass/Vol] 187 mg/dL High 70-100 [facility] Comment on above: Performed By: #### 8 5499 ####[facility] [facility] [place] [address], [facility] BASIC METABOLIC PANELon 12-2 Calcium [Mass/Vol] 7.8 mg/dL Low 8.6-10.3 [facility] Comment on above: Order Comment: No: D o not add to previous draw Performed By: #### 1 0, 76107 ####[facility] [facility] [place] [address], [facility] Chloride [Moles/Vol] 111 mmol/L High 98-107 [facility] Comment on above: Order Comment: No: D o not add to previous draw Performed By: #### 1 0, 84569 ####[facility] [facility] [place] [address], [facility] CO2 [Moles/Vol] 21 mmol/L Normal 21-31 The [facility] Comment on above: Order Comment: No: D o not add to previous draw Performed By: #### 1 0, 28479 ####[facility] [facility] [place] [address], [facility] Creatinine [Mass/Vol] 0.76 mg/dL Normal 0.70-1.30 [facility] Comment on above: Order Comment: No: D o not add to previous draw Performed By: #### 1 0, 65855 ####[facility] [facility] [place] [address], [facility] GFR/1.73 sq M.predicted among blacks MDRD (S/P/Bld) [Vol rate/Area] mL/min/{1.73_m2} Normal >60 [facility] Comment on above: Order Comment: No: D o not add to previous draw Result Comment: Calc ulation may not be valid for patients over 70 years Performed By: #### 1 69, 88709 ####[facility] [place] [address], [facility] GFR/1.73 sq M.predicted among non-blacks MDRD (S/P/Bld) [Vol rate/Area] mL/min/{1.73_m2} Normal >60 [facility] Comment on above: Order Comment: No: D o not add to previous draw Result Comment: Calc ulation may not be valid for patients over 70 years Performed By: #### 1 69, 59731 ####[facility] [place] [address], [place] Glucose [Mass/Vol] 142 mg/dL High 70-100 [facility] Comment on above: Order Comment: No: D o not add to previous draw Performed By: #### 1 69, 86382 ####[facility] [place] [address], [place] Potassium [Moles/Vol] 3.9 mmol/L Normal 3.5-5.1 [facility] Comment on above: Order Comment: No: D o not add to previous draw Performed By: #### 1 69, 84705 ####[facility] [place] [address], [place] Sodium [Moles/Vol] 140 mmol/L Normal 136-145 [facility] Comment on above: Order Comment: No: D o not add to previous draw Performed By: #### 1 69, 25464 ####[facility] [place] [address], [place] Urea nitrogen [Mass/Vol] 15 mg/dL Normal 7-25 [facility] Comment on above: Order Comment: No: D o not add to previous draw Performed By: #### 1 69, 60070 ####[facility] [place] [address], [place] CBC COMPLETE BLOOD COUNTon 1 10-29-2020 Erythrocyte distribution width (RBC) [Ratio] 14.6 % Normal 11.5-15.0 [facility] Comment on above: Order Comment: No: D o not add to previous draw Performed By: #### 5 0608 ####[facility] [facility] [place] [address], [facility] Hematocrit (Bld) [Volume fraction] 31.8 % Low 39.0-50.0 [facility] Comment on above: Order Comment: No: D o not add to previous draw Performed By: #### 5 0608 ####[facility] Hemoglobin (Bld) [Mass/Vol] 10.5 g/dL Low 13.0-17.0 [facility] Comment on above: Order Comment: No: D o not add to previous draw Performed By: #### 5 0608 ####[facility] [place] [address], [facility] MCH (RBC) [Entitic mass] 31.6 pg Normal 27.0-33.0 [facility] Comment on above: Order Comment: No: D o not add to previous draw Performed By: #### 5 0608 ####[facility] [place] [address], [facility] MCHC (RBC) [Mass/Vol] 33.0 g/dL Normal 32.0-35.0 [facility] Comment on above: Order Comment: No: D o not add to previous draw Performed By: #### 5 0608 ####[facility] [facility] [place] [address], [facility] MCV (RBC) [Entitic vol] 95.8 fL Normal 82.0-98.0 [facility] Comment on above: Order Comment: No: D o not add to previous draw Performed By: #### 5 0608 ####[facility] [facility].[address] Nucleated RBC/100 WBC (Bld) [Ratio] 0 % Normal 0-0 [facility] Comment on above: Order Comment: No: D o not add to previous draw Performed By: #### 5 0608 ####[facility] [place] [address], [facility] PLAT CNT 188 10*3/uL Normal 150-400 [facility] Comment on above: Order Comment: No: D o not add to previous draw Performed By: #### 5 0608 ####[facility] [facility] [place] [address], [facility] RBC (Bld) [#/Vol] 3.32 10*6/uL Low 4.20-5.70 [facility] Comment on above: Order Comment: No: D o not add to previous draw Performed By: #### 5 0608 ####[facility] [facility] [place] [address], [facility] WBC (Bld) [#/Vol] 14.06 10*3/uL High 4.00-10.60 [facility] Comment on above: Order Comment: No: D o not add to previous draw Performed By: #### 5 0608 ####[place] [id number] [facility].[address] MAGNESIUM BLOODon 08-28-2021 Magnesium [Mass/Vol] 1.9 mg/dL Normal 1.9-2.7 [facility] Comment on above: Order Comment: No: D o not add to previous draw Performed By: #### 1 0070, 14088 ####[facility] [facility].[address] POC GLUCOSE LABon 08-28-2021 Glucose [Mass/Vol] 139 mg/dL High 70-100 [facility] Comment on above: Performed By: #### 8 5499 ####[facility] [facility] [place] [address], [facility] BASIC METABOLIC PANELon 12-2 Calcium [Mass/Vol] 7.6 mg/dL Low 8.6-10.3 [facility] Comment on above: Order Comment: No: D o not add to previous draw Performed By: #### 1 69, 76738 ####[facility] [facility] [place] [address], [facility] Chloride [Moles/Vol] 105 mmol/L Normal 98-107 [facility] Comment on above: Order Comment: No: D o not add to previous draw Performed By: #### 1 69, 86051 ####[facility] [facility] [place] [address], [facility] CO2 [Moles/Vol] 23 mmol/L Normal 21-31 [facility] Comment on above: Order Comment: No: D o not add to previous draw Performed By: #### 1 69, 85357 ####[facility] [facility] [place] [address], [facility] Creatinine [Mass/Vol] 0.76 mg/dL Normal 0.70-1.30 [facility] Comment on above: Order Comment: No: D o not add to previous draw Performed By: #### 1 69, 75154 ####[facility] [facility] [place] [address], [facility] GFR/1.73 sq M.predicted among blacks MDRD (S/P/Bld) [Vol rate/Area] mL/min/{1.73_m2} Normal >60 [facility] Comment on above: Order Comment: No: D o not add to previous draw Result Comment: Calc ulation may not be valid for patients over 70 years Performed By: #### 1 69, 98550 ####[facility] [place] [address], [place] GFR/1.73 sq M.predicted among non-blacks MDRD (S/P/Bld) [Vol rate/Area] mL/min/{1.73_m2} Normal >60 [facility] Comment on above: Order Comment: No: D o not add to previous draw Result Comment: Calc ulation may not be valid for patients over 70 years Performed By: #### 1 0, 06658 ####[facility] [place] [address], [facility] Glucose [Mass/Vol] 109 mg/dL High 70-100 [facility] Comment on above: Order Comment: No: D o not add to previous draw Performed By: #### 1 69, 39069 ####[facility] [facility] [place] [address], [facility] Potassium [Moles/Vol] 3.3 mmol/L Low 3.5-5.1 [facility] Comment on above: Order Comment: No: D o not add to previous draw Performed By: #### 1 69, 96177 ####[facility] [facility] [place] [address], [facility] Sodium [Moles/Vol] 137 mmol/L Normal 136-145 [facility] Comment on above: Order Comment: No: D o not add to previous draw Performed By: #### 1 69, 72434 ####[facility] [facility] [place] [address], [facility] Urea nitrogen [Mass/Vol] 11 mg/dL Normal 7-25 [facility] Comment on above: Order Comment: No: D o not add to previous draw Performed By: #### 1 69, 32804 ####[facility] [facility] [place] [address], [facility] CBC COMPLETE BLOOD COUNTon 10-28-2020 Erythrocyte distribution width (RBC) [Ratio] 14.5 % Normal 11.5-15.0 [facility] Comment on above: Order Comment: No: D o not add to previous draw Performed By: #### 5 0608 ####[facility] [facility] [place] [address], [facility] Hematocrit (Bld) [Volume fraction] 30.9 % Low 39.0-50.0 [facility] Comment on above: Order Comment: No: D o not add to previous draw Performed By: #### 5 0608 ####[facility] [facility].[address] Hemoglobin (Bld) [Mass/Vol] 10.4 g/dL Low 13.0-17.0 [facility] Comment on above: Order Comment: No: D o not add to previous draw Performed By: #### 5 0608 ####[address] MCH (RBC) [Entitic mass] 31.6 pg Normal 27.0-33.0 [facility] Comment on above: Order Comment: No: D o not add to previous draw Performed By: #### 5 0608 ####[facility] [place] [address] MCHC (RBC) [Mass/Vol] 33.7 g/dL Normal 32.0-35.0 [facility] Comment on above: Order Comment: No: D o not add to previous draw Performed By: #### 5 0608 ####[facility] [place] [address].[address] MCV (RBC) [Entitic vol] 93.9 fL Normal 82.0-98.0 [facility] Comment on above: Order Comment: No: D o not add to previous draw Performed By: #### 5 0608 ####[address] Nucleated RBC/100 WBC (Bld) [Ratio] 0 % Normal 0-0 [facility] Comment on above: Order Comment: No: D o not add to previous draw Performed By: #### 5 0608 ####[facility] [place] [address], [facility] PLAT CNT 170 10*3/uL Normal 150-400 [facility] Comment on above: Order Comment: No: D o not add to previous draw Performed By: #### 5 0608 ####[facility] [facility] [place] [address], [facility] RBC (Bld) [#/Vol] 3.29 10*6/uL Low 4.20-5.70 [facility] Comment on above: Order Comment: No: D o not add to previous draw Performed By: #### 5 0608 ####[facility] [facility] [place] [address], [facility] WBC (Bld) [#/Vol] 14.05 10*3/uL High 4.00-10.60 [facility] Comment on above: Order Comment: No: D o not add to previous draw Performed By: #### 5 0608 ####[facility] [facility] [place] [address], [facility] MAGNESIUM BLOODon 08-27-2021 Magnesium [Mass/Vol] 1.9 mg/dL Normal 1.9-2.7 [facility] Comment on above: Order Comment: No: D o not add to previous draw Performed By: #### 1 0070, 72705 ####[facility] [facility] [place] [address], [facility] POC GLUCOSE LABon 08-27-2021 Glucose [Mass/Vol] 135 mg/dL High 70-100 [facility] Comment on above: Performed By: #### 8 5499 ####[facility] [facility] [place] [address], [facility] Glucose [Mass/Vol] 244 mg/dL High 70-100 [facility] Comment on above: Performed By: #### 8 5499 ####[facility] [place] [address], [place] Glucose [Mass/Vol] 116 mg/dL High 70-100 [facility] Comment on above: Performed By: #### 8 5499 ####[facility] [place] [address], [place] Glucose [Mass/Vol] 179 mg/dL High 70-100 [facility] Comment on above: Performed By: #### 8 5499 ####[facility] [place] [address], [place] BASIC METABOLIC PANELon 12-2 Calcium [Mass/Vol] 7.9 mg/dL Low 8.6-10.3 [facility] Comment on above: Order Comment: No: D o not add to previous draw Performed By: #### 0 0071, 41447 ####[facility] [place] [address], [place] Chloride [Moles/Vol] 102 mmol/L Normal 98-107 [facility] Comment on above: Order Comment: No: D o not add to previous draw Performed By: #### 0 0071, 99067 ####[facility] [place] [address], [place] CO2 [Moles/Vol] 21 mmol/L Normal 21-31 [facility] Comment on above: Order Comment: No: D o not add to previous draw Performed By: #### 0 0071, 67411 ####[facility] [place] [address], [place] Creatinine [Mass/Vol] 0.82 mg/dL Normal 0.70-1.30 [facility] Comment on above: Order Comment: No: D o not add to previous draw Performed By: #### 0 0071, 43890 ####[facility] [place] [address], [facility] GFR/1.73 sq M.predicted among blacks MDRD (S/P/Bld) [Vol rate/Area] mL/min/{1.73_m2} Normal >60 [facility] Comment on above: Order Comment: No: D o not add to previous draw Result Comment: Calc ulation may not be valid for patients over 70 years Performed By: #### 0 0071, 64912 ####[facility] [place] [address], [facility] GFR/1.73 sq M.predicted among non-blacks MDRD (S/P/Bld) [Vol rate/Area] mL/min/{1.73_m2} Normal >60 [facility] Comment on above: Order Comment: No: D o not add to previous draw Result Comment: Calc ulation may not be valid for patients over 70 years Performed By: #### 0 0071, 27631 ####[facility] [place] [address], [facility] Glucose [Mass/Vol] 130 mg/dL High 70-100 [facility] Comment on above: Order Comment: No: D o not add to previous draw Performed By: #### 0 0071, 03007 ####[facility] [place] [address], [facility] Potassium [Moles/Vol] 3.8 mmol/L Normal 3.5-5.1 [facility] Comment on above: Order Comment: No: D o not add to previous draw Performed By: #### 0 0071, 44767 ####[facility] [place] [address], [facility] Sodium [Moles/Vol] 133 mmol/L Low 136-145 [facility] Comment on above: Order Comment: No: D o not add to previous draw Performed By: #### 0 0071, 08888 ####[facility] Urea nitrogen [Mass/Vol] 10 mg/dL Normal 7-25 [facility] Comment on above: Order Comment: No: D o not add to previous draw Performed By: #### 0 0071, 19271 ####[facility] [facility].[address] CBC COMPLETE BLOOD COUNTon 10-27-2020 Erythrocyte distribution width (RBC) [Ratio] 14.6 % Normal 11.5-15.0 [facility] Comment on above: Order Comment: No: D o not add to previous draw Performed By: #### 5 0608 ####[facility] [facility].[address] Hematocrit (Bld) [Volume fraction] 33.4 % Low 39.0-50.0 [facility] Comment on above: Order Comment: No: D o not add to previous draw Performed By: #### 5 0608 ####[facility] [facility].[address] Hemoglobin (Bld) [Mass/Vol] 11.2 g/dL Low 13.0-17.0 [facility] Comment on above: Order Comment: No: D o not add to previous draw Performed By: #### 5 0608 ####[facility] [facility].[address] MCH (RBC) [Entitic mass] 31.6 pg Normal 27.0-33.0 [facility] Comment on above: Order Comment: No: D o not add to previous draw Performed By: #### 5 0608 ####[facility] [facility] [place] [address], [facility] MCHC (RBC) [Mass/Vol] 33.5 g/dL Normal 32.0-35.0 [facility] Comment on above: Order Comment: No: D o not add to previous draw Performed By: #### 5 0608 ####[facility] MCV (RBC) [Entitic vol] 94.4 fL Normal 82.0-98.0 [facility] Comment on above: Order Comment: No: D o not add to previous draw Performed By: #### 5 0608 ####[place] [id number] [address] Nucleated RBC/100 WBC (Bld) [Ratio] 0 % Normal 0-0 [facility] Comment on above: Order Comment: No: D o not add to previous draw Performed By: #### 5 0608 ####[address] PLAT CNT 179 10*3/uL Normal 150-400 [facility] Comment on above: Order Comment: No: D o not add to previous draw Performed By: #### 5 0608 ####[address] RBC (Bld) [#/Vol] 3.54 10*6/uL Low 4.20-5.70 [facility] Comment on above: Order Comment: No: D o not add to previous draw Performed By: #### 5 0608 ####[place] [address], [facility] WBC (Bld) [#/Vol] 15.72 10*3/uL High 4.00-10.60 [facility] Comment on above: Order Comment: No: D o not add to previous draw Performed By: #### 5 0608 ####[address] MAGNESIUM BLOODon 08-26-2021 Magnesium [Mass/Vol] 1.8 mg/dL Low 1.9-2.7 [facility] Comment on above: Order Comment: No: D o not add to previous draw Performed By: #### 0 0071, 56578 ####[facility] [place] [address], [place] POC GLUCOSE LABon 08-26-2021 Glucose [Mass/Vol] 138 mg/dL High 70-100 [facility] Comment on above: Performed By: #### 8 5499 ####[facility] [place] [address], [place] Glucose [Mass/Vol] 171 mg/dL High 70-100 [facility] Comment on above: Performed By: #### 8 5499 ####[facility] [place] [address], [place] Glucose [Mass/Vol] 123 mg/dL High 70-100 [facility] Comment on above: Performed By: #### 8 5499 ####[facility] [place] [address], [place] Glucose [Mass/Vol] 203 mg/dL High 70-100 [facility] Comment on above: Performed By: #### 8 5499 ####[facility] [place] [address], [place] BASIC METABOLIC PANELon - Calcium [Mass/Vol] 7.7 mg/dL Low 8.6-10.3 [facility] Comment on above: Order Comment: No: D o not add to previous draw Performed By: #### 4 999, 40261, 65077 ####[facility] [place] [address], [place] Chloride [Moles/Vol] 101 mmol/L Normal 98-107 The [facility] Comment on above: Order Comment: No: D o not add to previous draw Performed By: #### 4 999, 44464, 66423 ####[facility] [place] [address], [place] CO2 [Moles/Vol] 24 mmol/L Normal 21-31 [facility] Comment on above: Order Comment: No: D o not add to previous draw Performed By: #### 4 1000, 16646, 51570 ####[facility] [place] [address], [facility] Creatinine [Mass/Vol] 0.88 mg/dL Normal 0.70-1.30 The [facility] Comment on above: Order Comment: No: D o not add to previous draw Performed By: #### 4 1000, 99322, 46806 ####[facility] [place] [address], [facility] GFR/1.73 sq M.predicted among blacks MDRD (S/P/Bld) [Vol rate/Area] mL/min/{1.73_m2} Normal >60 The [facility] Comment on above: Order Comment: No: D o not add to previous draw Result Comment: Calc ulation may not be valid for patients over 70 years Performed By: #### 4 1000, 88734, 11391 ####[facility] [place] [address], [place] GFR/1.73 sq M.predicted among non-blacks MDRD (S/P/Bld) [Vol rate/Area] mL/min/{1.73_m2} Normal >60 The [facility] Comment on above: Order Comment: No: D o not add to previous draw Result Comment: Calc ulation may not be valid for patients over 70 years Performed By: #### 4 1000, 29763, 90692 ####[facility] [place] [address], [place] Glucose [Mass/Vol] 141 mg/dL High 70-100 [facility] Comment on above: Order Comment: No: D o not add to previous draw Performed By: #### 4 1000, 62777, 19229 ####[facility] [place] [address], [place] Potassium [Moles/Vol] 3.9 mmol/L Normal 3.5-5.1 The [facility] Comment on above: Order Comment: No: D o not add to previous draw Performed By: #### 4 1000, 39871, 71025 ####[facility] Sodium [Moles/Vol] 131 mmol/L Low 136-145 [facility] Comment on above: Order Comment: No: D o not add to previous draw Performed By: #### 4 1000, 47702, 61548 ####[facility] Urea nitrogen [Mass/Vol] 11 mg/dL Normal 7-25 The [facility] Comment on above: Order Comment: No: D o not add to previous draw Performed By: #### 4 1000, 10258, 12408 ####[facility] [facility] CBC COMPLETE BLOOD COUNTon 10-26-2020 Erythrocyte distribution width (RBC) [Ratio] 14.6 % Normal 11.5-15.0 The [facility] Comment on above: Order Comment: No: D o not add to previous draw Performed By: #### 5 0608 ####[place] [address] [facility].[address] Hematocrit (Bld) [Volume fraction] 31.9 % Low 39.0-50.0 The [facility] Comment on above: Order Comment: No: D o not add to previous draw Performed By: #### 5 0608 ####[facility] Hemoglobin (Bld) [Mass/Vol] 10.8 g/dL Low 13.0-17.0 [facility] Comment on above: Order Comment: No: D o not add to previous draw Performed By: #### 5 0608 ####[facility] MCH (RBC) [Entitic mass] 32.0 pg Normal 27.0-33.0 [facility] Comment on above: Order Comment: No: D o not add to previous draw Performed By: #### 5 0608 ####[facility] [facility] [place] [address], [facility] MCHC (RBC) [Mass/Vol] 33.9 g/dL Normal 32.0-35.0 The [facility] Comment on above: Order Comment: No: D o not add to previous draw Performed By: #### 5 0608 ####[address] MCV (RBC) [Entitic vol] 94.4 fL Normal 82.0-98.0 [facility] Comment on above: Order Comment: No: D o not add to previous draw Performed By: #### 5 0608 ####[address] Nucleated RBC/100 WBC (Bld) [Ratio] 0 % Normal 0-0 [facility] Comment on above: Order Comment: No: D o not add to previous draw Performed By: #### 5 0608 ####[address] PLAT CNT 163 10*3/uL Normal 150-400 [facility] Comment on above: Order Comment: No: D o not add to previous draw Performed By: #### 5 0608 ####[address] [place] [address], [facility] RBC (Bld) [#/Vol] 3.38 10*6/uL Low 4.20-5.70 The [facility] Comment on above: Order Comment: No: D o not add to previous draw Performed By: #### 5 0608 ####[address] [place] [address], [facility] WBC (Bld) [#/Vol] 13.02 10*3/uL High 4.00-10.60 [facility] Comment on above: Order Comment: No: D o not add to previous draw Performed By: #### 5 0608 ####[facility] [place] [address], [place] MAGNESIUM BLOODon 08-25-2021 Magnesium [Mass/Vol] 1.7 mg/dL Low 1.9-2.7 [facility] Comment on above: Order Comment: No: D o not add to previous draw Performed By: #### 4 1000, 92825, 52844 ####[facility] [place] [address], [place] PHOSPHORUS BLOODon Phosphate [Mass/Vol] 3.8 mg/dL Normal 2.5-5.0 [facility] Comment on above: Order Comment: No: D o not add to previous draw Performed By: #### 4 1000, 45090, 67937 ####[facility] [place] [address], [place] POC GLUCOSE LABon 08-25-2021 Glucose [Mass/Vol] 155 mg/dL High 70-100 [facility] Comment on above: Performed By: #### 8 5499 ####[facility] [place] [address], [place] Glucose [Mass/Vol] 135 mg/dL High 70-100 [facility] Comment on above: Performed By: #### 8 5499 ####[facility] [place] [address], [place] Glucose [Mass/Vol] 135 mg/dL High 70-100 [facility] Comment on above: Performed By: #### 8 5499 ####[facility] [place] [address], [place] Glucose [Mass/Vol] 133 mg/dL High 70-100 [facility] Comment on above: Performed By: #### 8 5499 ####[facility] [facility] [place] [address], [facility] BASIC METABOLIC PANELon 12-2 Calcium [Mass/Vol] 7.9 mg/dL Low 8.6-10.3 [facility] Comment on above: Order Comment: No: D o not add to previous drawMissed draw at 420amPT refused PATTY Cameron notified Performed By: #### 1 0070, 26090, 84421 ####[facility] [facility] [place] [address], [facility] Chloride [Moles/Vol] 100 mmol/L Normal 98-107 The [facility] Comment on above: Order Comment: No: D o not add to previous drawMissed draw at 420amPT refused PATTY Cameron notified Performed By: #### 1 0, 26405, 07923 ####[facility] [facility] [place] [address], [facility] CO2 [Moles/Vol] 26 mmol/L Normal 21-31 The [facility] Comment on above: Order Comment: No: D o not add to previous drawMissed draw at 420amPT refused PATTY Cameron notified Performed By: #### 1 0, 21740, 35534 ####[facility] [facility] [place] [address], [facility] Creatinine [Mass/Vol] 0.86 mg/dL Normal 0.70-1.30 The [facility] Comment on above: Order Comment: No: D o not add to previous drawMissed draw at 420amPT refused PATTY Cameron notified Performed By: #### 1 0070, 95874, 20140 ####[facility] [facility] [place] [address], [facility] GFR/1.73 sq M.predicted among blacks MDRD (S/P/Bld) [Vol rate/Area] mL/min/{1.73_m2} Normal >60 The [facility] Comment on above: Order Comment: No: D o not add to previous drawMissed draw at 420amPT refused PATTY Cameron notified Result Comment: Calc ulation may not be valid for patients over 70 years Performed By: #### 1 0070, 15784, 71484 ####[facility] [facility] [address], [facility] GFR/1.73 sq M.predicted among non-blacks MDRD (S/P/Bld) [Vol rate/Area] mL/min/{1.73_m2} Normal >60 The [facility] Comment on above: Order Comment: No: D o not add to previous drawMissed draw at 420amPT refused PATTY Cameron notified Result Comment: Calc ulation may not be valid for patients over 70 years Performed By: #### 1 0070, 41591, 20191 ####[facility] [facility] [place] [address], [facility] Glucose [Mass/Vol] 127 mg/dL High 70-100 [facility] Comment on above: Order Comment: No: D o not add to previous drawMissed draw at 420amPT refused PATTY Cameron notified Performed By: #### 1 0070, 05221, 21646 ####[facility] [facility] [address], [facility] Potassium [Moles/Vol] 4.3 mmol/L Normal 3.5-5.1 The [facility] Comment on above: Order Comment: No: D o not add to previous drawMissed draw at 420amPT refused PATTY Cameron notified Performed By: #### 1 0070, 07813, 16338 ####[facility] [facility] [address], [facility] Sodium [Moles/Vol] 132 mmol/L Low 136-145 [facility] Comment on above: Order Comment: No: D o not add to previous drawMissed draw at 420amPT refused PATTY Cameron notified Performed By: #### 1 0070, 76635, 52497 ####[facility] [facility].[address] Urea nitrogen [Mass/Vol] 10 mg/dL Normal 7-25 The [facility] Comment on above: Order Comment: No: D o not add to previous drawMissed draw at 420amPT refused PATTY Cameron notified Performed By: #### 1 0070, 22738, 69647 ####[facility] CBC W/DIFFon 08-24-2021 ABS IMM GRANS 0.1 10*3/uL Normal 0.0-0.2 The [facility] Comment on above: Order Comment: No: D o not add to previous drawMissed draw at 420amPT refused PATTY Cameron notified Performed By: #### 5 0103 ####[facility] ABS NEUTROPHILS 4.5 10*3/uL Normal 1.6-7.6 The [facility] Comment on above: Order Comment: No: D o not add to previous drawMissed draw at 420amPT refused PATTY Cameron notified Performed By: #### 5 0103 ####[facility] Basophils (Bld) [#/Vol] 0.0 10*3/uL Normal 0.0-0.2 The [facility] Comment on above: Order Comment: No: D o not add to previous drawMissed draw at 420amPT refused PATTY Cameron notified Performed By: #### 5 0103 ####[facility] Basophils/100 WBC (Bld) 0.1 % Normal 0.0-1.0 The [facility] Comment on above: Order Comment: No: D o not add to previous drawMissed draw at 420amPT refused PATTY Cameron notified Performed By: #### 5 0103 ####[facility] [place] [address], [facility] Eosinophils (Bld) [#/Vol] 0.0 10*3/uL Normal 0.0-0.5 The [facility] Comment on above: Order Comment: No: D o not add to previous drawMissed draw at 420amPT refused PATTY Cameron notified Performed By: #### 5 0103 ####[facility] Eosinophils/100 WBC (Bld) 0.1 % Normal 0.0-6.0 The [facility] Comment on above: Order Comment: No: D o not add to previous drawMissed draw at 420amPT refused PATTY Cameron notified Performed By: #### 5 3 ####[facility] Erythrocyte distribution width (RBC) [Ratio] 14.7 % Normal 11.5-15.0 The [facility] Comment on above: Order Comment: No: D o not add to previous drawMissed draw at 420amPT refused PATTY Cameron notified Performed By: #### 5 3 ####[facility] Hematocrit (Bld) [Volume fraction] 35.4 % Low 39.0-50.0 The [facility] Comment on above: Order Comment: No: D o not add to previous drawMissed draw at 420amPT refused PATTY Cameron notified Performed By: #### 5 3 ####[facility] [place] [address] Hemoglobin (Bld) [Mass/Vol] 11.6 g/dL Low 13.0-17.0 The [facility] Comment on above: Order Comment: No: D o not add to previous drawMissed draw at 420amPT refused PATTY Cameron notified Performed By: #### 5 0103 ####[facility] [facility] [place] [address], [facility] IMMATURE GRANS 0.3 % Normal 0.0-1.0 The [facility] Comment on above: Order Comment: No: D o not add to previous drawMissed draw at 420amPT refused PATTY Cameron notified Performed By: #### 5 0103 ####[facility] [facility].[address] Lymphocytes (Bld) [#/Vol] 10.1 10*3/uL High 1.2-4.0 The [facility] Comment on above: Order Comment: No: D o not add to previous drawMissed draw at 420amPT refused PATTY Cameron notified Performed By: #### 5 3 ####[facility] Lymphocytes/100 WBC (Bld) 67.1 % High 20.0-45.0 The [facility] Comment on above: Order Comment: No: D o not add to previous drawMissed draw at 420amPT refused PATTY Cameron notified Performed By: #### 5 3 ####[facility] MCH (RBC) [Entitic mass] 32.0 pg Normal 27.0-33.0 The [facility] Comment on above: Order Comment: No: D o not add to previous drawMissed draw at 420amPT refused PATTY Cameron notified Performed By: #### 5 0103 ####[facility] [facility].[address] MCHC (RBC) [Mass/Vol] 32.8 g/dL Normal 32.0-35.0 The [facility] Comment on above: Order Comment: No: D o not add to previous drawMissed draw at 420amPT refused PATTY Cameron notified Performed By: #### 5 3 ####[facility] [facility].[address] MCV (RBC) [Entitic vol] 97.5 fL Normal 82.0-98.0 The [facility] Comment on above: Order Comment: No: D o not add to previous drawMissed draw at 420amPT refused PATTY Cameron notified Performed By: #### 5 0103 ####[facility] [place] [address], [facility] Monocytes (Bld) [#/Vol] 0.4 10*3/uL Normal 0.1-1.0 The [facility] Comment on above: Order Comment: No: D o not add to previous drawMissed draw at 420amPT refused PATTY Cameron notified Performed By: #### 5 0103 ####[facility] MONOS 2.6 % Low 5.0-12.0 The [facility] Comment on above: Order Comment: No: D o not add to previous drawMissed draw at 420amPT refused PATTY Cameron notified Performed By: #### 5 0103 ####[place] [address] [address] Neutrophils/100 WBC (Bld) 29.8 % Low 40.0-72.0 The [facility] Comment on above: Order Comment: No: D o not add to previous drawMissed draw at 420amPT refused PATTY Cameron notified Performed By: #### 5 0103 ####[facility] [facility].[address] Nucleated RBC/100 WBC (Bld) [Ratio] 0 % Normal 0-0 [facility] Comment on above: Order Comment: No: D o not add to previous drawMissed draw at 420amPT refused PATTY Cameron notified Performed By: #### 5 0103 ####[facility] [place] [address], [facility] PLAT CNT 175 10*3/uL Normal 150-400 [facility] Comment on above: Order Comment: No: D o not add to previous drawMissed draw at 420amPT refused PATTY Cameron notified Performed By: #### 5 0103 ####[facility] [place] [address], [facility] RBC (Bld) [#/Vol] 3.63 10*6/uL Low 4.20-5.70 The [facility] Comment on above: Order Comment: No: D o not add to previous drawMissed draw at 420amPT refused PATTY Cameron notified Performed By: #### 5 0103 ####[facility] [facility] [place] [address], [facility] SMUDGE CELLS MANY Normal The [facility] Comment on above: Order Comment: No: D o not add to previous drawMissed draw at 420amPT refused PATTY Cameron notified Performed By: #### 5 0103 ####[facility] [facility] [place] [address], [facility] WBC (Bld) [#/Vol] 15.09 10*3/uL High 4.00-10.60 The [facility] Comment on above: Order Comment: No: D o not add to previous drawMissed draw at 420amPT refused PATTY Cameron notified Performed By: #### 5 0103 ####[facility] [facility] [address], [facility] MAGNESIUM BLOODon 08-24-2021 Magnesium [Mass/Vol] 1.8 mg/dL Low 1.9-2.7 The [facility] Comment on above: Order Comment: No: D o not add to previous drawMissed draw at 420amPT refused PATTY Cameron notified Performed By: #### 1 0070, 77731, 91497 ####[facility] [place] [address], [facility] PHOSPHORUS BLOODon Phosphate [Mass/Vol] 3.8 mg/dL Normal 2.5-5.0 The [facility] Comment on above: Order Comment: No: D o not add to previous drawMissed draw at 420amPT refused PATTY Cameron notified Performed By: #### 1 0070, 97895, 72541 ####[facility] [place] [address], [facility] POC GLUCOSE LABon 08-24-2021 Glucose [Mass/Vol] 148 mg/dL High 70-100 [facility] Comment on above: Performed By: #### 8 5499 ####[facility] [facility] [address], [place] Glucose [Mass/Vol] 162 mg/dL High 70-100 [facility] Comment on above: Performed By: #### 8 5499 ####[facility] [place] [address], [place] Glucose [Mass/Vol] 146 mg/dL High 70-100 [facility] Comment on above: Performed By: #### 8 5499 ####[facility] [facility] [address], [place] Glucose [Mass/Vol] 208 mg/dL High 70-100 [facility] Comment on above: Performed By: #### 8 5499 ####[facility] [facility] [address], [facility] POC SARS COV2 ANTIGEN NEGATI VEon 08-24-2021 POC SARS COV2 ANTIGEN NEG Negative Normal NEGATIVE The [facility] Comment on above: Result Comment: Nega tive [...] of clinicalsigns and symptoms consistent with COVID-19.The [employer] COVID-19 Ag Card is a lateral flow immunoassay intended forthe qualitative detection of nucleocapsid protein antigen [id number] in direct nasal swabs from individuals within [...] Certificate ofAccreditation. Performed By: #### 3 1977 ####[address] BASIC METABOLIC PANELon 12-2 Calcium [Mass/Vol] 7.8 mg/dL Low 8.6-10.3 [facility] Comment on above: Order Comment: No: D o not add to previous draw Performed By: #### 1 0, 77394 ####[place] [address] [address] Chloride [Moles/Vol] 104 mmol/L Normal 98-107 The [facility] Comment on above: Order Comment: No: D o not add to previous draw Performed By: #### 1 69, 83899 ####[place] [address] [place] [address], [facility] CO2 [Moles/Vol] 24 mmol/L Normal 21-31 The [facility] Comment on above: Order Comment: No: D o not add to previous draw Performed By: #### 1 0, 36064 ####[place] [address] [address] Creatinine [Mass/Vol] 0.91 mg/dL Normal 0.70-1.30 The [facility] Comment on above: Order Comment: No: D o not add to previous draw Performed By: #### 1 69, 19570 ####[facility] [place] [address], [facility] GFR/1.73 sq M.predicted among blacks MDRD (S/P/Bld) [Vol rate/Area] mL/min/{1.73_m2} Normal >60 The [facility] Comment on above: Order Comment: No: D o not add to previous draw Result Comment: Calc ulation may not be valid for patients over 70 years Performed By: #### 1 69, 13372 ####[facility] [place] [address], [facility] GFR/1.73 sq M.predicted among non-blacks MDRD (S/P/Bld) [Vol rate/Area] mL/min/{1.73_m2} Normal >60 The [facility] Comment on above: Order Comment: No: D o not add to previous draw Result Comment: Calc ulation may not be valid for patients over 70 years Performed By: #### 1 69, 17441 ####[facility] [place] [address], [facility] Glucose [Mass/Vol] 162 mg/dL High 70-100 [facility] Comment on above: Order Comment: No: D o not add to previous draw Performed By: #### 1 69, 31336 ####[facility] [place] [address], [facility] Potassium [Moles/Vol] 3.9 mmol/L Normal 3.5-5.1 The [facility] Comment on above: Order Comment: No: D o not add to previous draw Performed By: #### 1 69, 67726 ####[facility] [place] [address], [place] Sodium [Moles/Vol] 134 mmol/L Low 136-145 [facility] Comment on above: Order Comment: No: D o not add to previous draw Performed By: #### 1 0, 68614 ####[facility] [facility].[address] Urea nitrogen [Mass/Vol] 7 mg/dL Normal 7-25 The [facility] Comment on above: Order Comment: No: D o not add to previous draw Performed By: #### 1 0, 41101 ####[facility] [facility].[address] CBC COMPLETE BLOOD COUNT 10-24-2020 Erythrocyte distribution width (RBC) [Ratio] 14.7 % Normal 11.5-15.0 The [facility] Comment on above: Order Comment: No: D o not add to previous draw Performed By: #### 5 0608 ####[facility] Hematocrit (Bld) [Volume fraction] 32.6 % Low 39.0-50.0 The [facility] Comment on above: Order Comment: No: D o not add to previous draw Performed By: #### 5 0608 ####[facility] [facility].[address] Hemoglobin (Bld) [Mass/Vol] 10.8 g/dL Low 13.0-17.0 [facility] Comment on above: Order Comment: No: D o not add to previous draw Performed By: #### 5 0608 ####[facility] [facility].[address] MCH (RBC) [Entitic mass] 31.4 pg Normal 27.0-33.0 [facility] Comment on above: Order Comment: No: D o not add to previous draw Performed By: #### 5 0608 ####[facility] [place] [address].[address] MCHC (RBC) [Mass/Vol] 33.1 g/dL Normal 32.0-35.0 [facility] Comment on above: Order Comment: No: D o not add to previous draw Performed By: #### 5 0608 ####[facility] [facility] [place] [address], [facility] MCV (RBC) [Entitic vol] 94.8 fL Normal 82.0-98.0 [facility] Comment on above: Order Comment: No: D o not add to previous draw Performed By: #### 5 0608 ####[facility] Nucleated RBC/100 WBC (Bld) [Ratio] 0 % Normal 0-0 [facility] Comment on above: Order Comment: No: D o not add to previous draw Performed By: #### 5 0608 ####[facility] [place] [address], [facility] PLAT CNT 147 10*3/uL Low 150-400 [facility] Comment on above: Order Comment: No: D o not add to previous draw Performed By: #### 5 0608 ####[facility] [place] [address], [facility] RBC (Bld) [#/Vol] 3.44 10*6/uL Low 4.20-5.70 The [facility] Comment on above: Order Comment: No: D o not add to previous draw Performed By: #### 5 0608 ####[facility] [facility] [place] [address], [facility] WBC (Bld) [#/Vol] 13.68 10*3/uL High 4.00-10.60 [facility] Comment on above: Order Comment: No: D o not add to previous draw Performed By: #### 5 0608 ####[facility] [place] [address], [facility] MAGNESIUM BLOODon 08-23-2021 Magnesium [Mass/Vol] 1.6 mg/dL Low 1.9-2.7 [facility] Comment on above: Order Comment: No: D o not add to previous draw Performed By: #### 1 0070, 95742 ####[facility] [place] [address], [place] POC GLUCOSE LABon 08-23-2021 Glucose [Mass/Vol] 167 mg/dL High 70-100 [facility] Comment on above: Performed By: #### 8 5499 ####[facility] [place] [address], [place] Glucose [Mass/Vol] 181 mg/dL High 70-100 [facility] Comment on above: Performed By: #### 8 5499 ####[facility] [place] [address], [place] Glucose [Mass/Vol] 111 mg/dL High 70-100 [facility] Comment on above: Performed By: #### 8 5499 ####[facility] [facility] [place] [address], [place] Glucose [Mass/Vol] 156 mg/dL High 70-100 [facility] Comment on above: Performed By: #### 8 5499 ####[facility] [facility] [place] [address], [place] *C DIFF DNA AMPLIFICATIONon 08-22-2021 *C DIFF DNA AMPLIFICATION Clinical Report: (D) Specimen: STOOL Collected: 08/22/2021 16:41 Status: Final Last Updated: 08/22/2021 18:57 (1) No: Do not add to previous draw CDT DNA: (Final) Negative Normal [facility] Comment on above: Order Comment: No: D o not add to previous draw Performed By: #### 3 0622 ####[facility] [facility] [place] [address], [place] BASIC METABOLIC PANELon 12-2 Calcium [Mass/Vol] 8.2 mg/dL Low 8.6-10.3 [facility] Comment on above: Order Comment: No: D o not add to previous draw Performed By: #### 1 69, 22899 ####[facility] [place] [address], [facility] Chloride [Moles/Vol] 104 mmol/L Normal 98-107 [facility] Comment on above: Order Comment: No: D o not add to previous draw Performed By: #### 1 0, 27099 ####[facility] [place] [address], [facility] CO2 [Moles/Vol] 21 mmol/L Normal 21-31 The [facility] Comment on above: Order Comment: No: D o not add to previous draw Performed By: #### 1 69, 57597 ####[facility] [facility] [place] [address], [facility] Creatinine [Mass/Vol] 0.92 mg/dL Normal 0.70-1.30 [facility] Comment on above: Order Comment: No: D o not add to previous draw Performed By: #### 1 69, 35296 ####[facility] [facility] [place] [address], [facility] GFR/1.73 sq M.predicted among blacks MDRD (S/P/Bld) [Vol rate/Area] mL/min/{1.73_m2} Normal >60 [facility] Comment on above: Order Comment: No: D o not add to previous draw Result Comment: Calc ulation may not be valid for patients over 70 years Performed By: #### 1 69, 10880 ####[facility] [facility] [place] [address], [facility] GFR/1.73 sq M.predicted among non-blacks MDRD (S/P/Bld) [Vol rate/Area] mL/min/{1.73_m2} Normal >60 [facility] Comment on above: Order Comment: No: D o not add to previous draw Result Comment: Calc ulation may not be valid for patients over 70 years Performed By: #### 1 69, 56617 ####[facility] [facility] [place] [address], [facility] Glucose [Mass/Vol] 179 mg/dL High 70-100 [facility] Comment on above: Order Comment: No: D o not add to previous draw Performed By: #### 1 69, 68625 ####[facility] [facility] [place] [address], [facility] Potassium [Moles/Vol] 4.4 mmol/L Normal 3.5-5.1 [facility] Comment on above: Order Comment: No: D o not add to previous draw Performed By: #### 1 69, 86198 ####[facility] [facility] [place] [address], [facility] Sodium [Moles/Vol] 134 mmol/L Low 136-145 [facility] Comment on above: Order Comment: No: D o not add to previous draw Performed By: #### 1 69, 28030 ####[facility] [facility] [place] [address], [facility] Urea nitrogen [Mass/Vol] 9 mg/dL Normal 7-25 [facility] Comment on above: Order Comment: No: D o not add to previous draw Performed By: #### 1 69, 71551 ####[facility] [facility].[address] CBC COMPLETE BLOOD COUNTon 10-23-2020 Erythrocyte distribution width (RBC) [Ratio] 14.7 % Normal 11.5-15.0 [facility] Comment on above: Order Comment: No: D o not add to previous draw Performed By: #### 5 0608 ####[facility] [facility] [place] [address], [facility] Hematocrit (Bld) [Volume fraction] 36.8 % Low 39.0-50.0 [facility] Comment on above: Order Comment: No: D o not add to previous draw Performed By: #### 5 0608 ####[facility] [facility].[address] Hemoglobin (Bld) [Mass/Vol] 12.4 g/dL Low 13.0-17.0 [facility] Comment on above: Order Comment: No: D o not add to previous draw Performed By: #### 5 0608 ####[facility] [facility].[address] MCH (RBC) [Entitic mass] 32.3 pg Normal 27.0-33.0 [facility] Comment on above: Order Comment: No: D o not add to previous draw Performed By: #### 5 0608 ####[facility] [facility].[address] MCHC (RBC) [Mass/Vol] 33.7 g/dL Normal 32.0-35.0 [facility] Comment on above: Order Comment: No: D o not add to previous draw Performed By: #### 5 0608 ####[facility] [facility].[address] MCV (RBC) [Entitic vol] 95.8 fL Normal 82.0-98.0 [facility] Comment on above: Order Comment: No: D o not add to previous draw Performed By: #### 5 0608 ####[facility] [facility].[address] Nucleated RBC/100 WBC (Bld) [Ratio] 0 % Normal 0-0 [facility] Comment on above: Order Comment: No: D o not add to previous draw Performed By: #### 5 0608 ####[address] [place] [address], [facility] PLAT CNT 176 10*3/uL Normal 150-400 [facility] Comment on above: Order Comment: No: D o not add to previous draw Performed By: #### 5 0608 ####[facility] [place] [address], [facility] RBC (Bld) [#/Vol] 3.84 10*6/uL Low 4.20-5.70 [facility] Comment on above: Order Comment: No: D o not add to previous draw Performed By: #### 5 0608 ####[facility] [place] [address], [facility] WBC (Bld) [#/Vol] 17.17 10*3/uL High 4.00-10.60 [facility] Comment on above: Order Comment: No: D o not add to previous draw Performed By: #### 5 0608 ####[facility] [facility].[address] ABDOMEN AND PELVIS W ORAL CONTRASTon 08-22-2021 CT ABDOMEN AND PELVIS W ORAL CONTRAST Normal [facility] Comment on above: Order Comment: Fluid Collection MAGNESIUM BLOODon 08-22-2021 Magnesium [Mass/Vol] 1.9 mg/dL Normal 1.9-2.7 [facility] Comment on above: Order Comment: No: D o not add to previous draw Performed By: #### 1 0070, 73388 ####[facility] POC GLUCOSE LABon 08-22-2021 Glucose [Mass/Vol] 177 mg/dL High 70-100 [facility] Comment on above: Performed By: #### 8 5499 ####[facility] [facility] [place] [address], [facility] Glucose [Mass/Vol] 146 mg/dL High 70-100 [facility] Comment on above: Performed By: #### 8 5499 ####[facility] [place] [address], [place] Glucose [Mass/Vol] 180 mg/dL High 70-100 [facility] Comment on above: Performed By: #### 8 5499 ####[facility] [place] [address], [place] Glucose [Mass/Vol] 119 mg/dL High 70-100 [facility] Comment on above: Performed By: #### 8 5499 ####[facility] [facility] [place] [address], [place] BASIC METABOLIC PANELon 12-2 -2020 Calcium [Mass/Vol] 8.0 mg/dL Low 8.6-10.3 [facility] Comment on above: Order Comment: No: D o not add to previous draw Performed By: #### 0 0071, 32578, 66165 ####[facility] [facility] [place] [address], [place] Chloride [Moles/Vol] 102 mmol/L Normal 98-107 [facility] Comment on above: Order Comment: No: D o not add to previous draw Performed By: #### 0 0071, 93327, 61583 ####[facility] [facility] [place] [address], [place] CO2 [Moles/Vol] 23 mmol/L Normal 21-31 [facility] Comment on above: Order Comment: No: D o not add to previous draw Performed By: #### 0 0071, 69305, 94291 ####[facility] [facility] [place] [address], [place] Creatinine [Mass/Vol] 0.89 mg/dL Normal 0.70-1.30 [facility] Comment on above: Order Comment: No: D o not add to previous draw Performed By: #### 0 0071, 56286, 18162 ####[facility] [place] [address], [facility] GFR/1.73 sq M.predicted among blacks MDRD (S/P/Bld) [Vol rate/Area] mL/min/{1.73_m2} Normal >60 [facility] Comment on above: Order Comment: No: D o not add to previous draw Result Comment: Calc ulation may not be valid for patients over 70 years Performed By: #### 0 0071, 78510, 42378 ####[facility] [place] [address], [facility] GFR/1.73 sq M.predicted among non-blacks MDRD (S/P/Bld) [Vol rate/Area] mL/min/{1.73_m2} Normal >60 [facility] Comment on above: Order Comment: No: D o not add to previous draw Result Comment: Calc ulation may not be valid for patients over 70 years Performed By: #### 0 0071, 21108, 68037 ####[facility] [facility] [address], [facility] Glucose [Mass/Vol] 200 mg/dL High 70-100 [facility] Comment on above: Order Comment: No: D o not add to previous draw Performed By: #### 0 0071, 82005, 23403 ####[facility] [facility] [address], [facility] Potassium [Moles/Vol] 4.4 mmol/L Normal 3.5-5.1 [facility] Comment on above: Order Comment: No: D o not add to previous draw Performed By: #### 0 0071, 17124, 36972 ####[facility] [facility] [place] [address], [facility] Sodium [Moles/Vol] 132 mmol/L Low 136-145 [facility] Comment on above: Order Comment: No: D o not add to previous draw Performed By: #### 0 0071, 26096, 54815 ####[facility] Urea nitrogen [Mass/Vol] 10 mg/dL Normal 7-25 [facility] Comment on above: Order Comment: No: D o not add to previous draw Performed By: #### 0 0071, 46139, 67494 ####[facility] [facility] CBC COMPLETE BLOOD COUNTon 10-22-2020 Erythrocyte distribution width (RBC) [Ratio] 14.6 % Normal 11.5-15.0 [facility] Comment on above: Order Comment: No: D o not add to previous draw Performed By: #### 5 0608 ####[facility] [facility] Hematocrit (Bld) [Volume fraction] 34.1 % Low 39.0-50.0 [facility] Comment on above: Order Comment: No: D o not add to previous draw Performed By: #### 5 0608 ####[facility] [facility].[address] Hemoglobin (Bld) [Mass/Vol] 11.5 g/dL Low 13.0-17.0 [facility] Comment on above: Order Comment: No: D o not add to previous draw Performed By: #### 5 0608 ####[facility] [facility] [place] [address], [facility] MCH (RBC) [Entitic mass] 32.0 pg Normal 27.0-33.0 [facility] Comment on above: Order Comment: No: D o not add to previous draw Performed By: #### 5 0608 ####[facility] [place] [address], [facility] MCHC (RBC) [Mass/Vol] 33.7 g/dL Normal 32.0-35.0 [facility] Comment on above: Order Comment: No: D o not add to previous draw Performed By: #### 5 0608 ####[facility] [place] [address], [facility] MCV (RBC) [Entitic vol] 95.0 fL Normal 82.0-98.0 [facility] Comment on above: Order Comment: No: D o not add to previous draw Performed By: #### 5 0608 ####[facility] [facility] [place] [address], [facility] Nucleated RBC/100 WBC (Bld) [Ratio] 0 % Normal 0-0 [facility] Comment on above: Order Comment: No: D o not add to previous draw Performed By: #### 5 0608 ####[facility] [facility] [place] [address], [facility] PLAT CNT 163 10*3/uL Normal 150-400 [facility] Comment on above: Order Comment: No: D o not add to previous draw Performed By: #### 5 0608 ####[place] [id number] [facility] [place] [address], [facility] RBC (Bld) [#/Vol] 3.59 10*6/uL Low 4.20-5.70 [facility] Comment on above: Order Comment: No: D o not add to previous draw Performed By: #### 5 0608 ####[facility] [facility] [place] [address], [facility] WBC (Bld) [#/Vol] 17.22 10*3/uL High 4.00-10.60 [facility] Comment on above: Order Comment: No: D o not add to previous draw Performed By: #### 5 0608 ####[facility] [place] [address], [facility] MAGNESIUM BLOODon 08-21-2021 Magnesium [Mass/Vol] 2.1 mg/dL Normal 1.9-2.7 [facility] Comment on above: Order Comment: No: D o not add to previous draw Performed By: #### 0 0071, 11623, 04809 ####[facility] [place] [address], [place] PHOSPHORUS BLOODon Phosphate [Mass/Vol] 3.4 mg/dL Normal 2.5-5.0 [facility] Comment on above: Order Comment: No: D o not add to previous draw Performed By: #### 0 0071, 83723, 37795 ####[facility] [place] [address], [place] POC GLUCOSE LABon 08-21-2021 Glucose [Mass/Vol] 185 mg/dL High 70-100 [facility] Comment on above: Performed By: #### 8 5499 ####[facility] [facility] [place] [address], [place] Glucose [Mass/Vol] 120 mg/dL High 70-100 [facility] Comment on above: Performed By: #### 8 5499 ####[facility] [facility] [address], [place] Glucose [Mass/Vol] 172 mg/dL High 70-100 [facility] Comment on above: Performed By: #### 8 5499 ####[facility] [facility] [address], [place] Glucose [Mass/Vol] 122 mg/dL High 70-100 [facility] Comment on above: Performed By: #### 8 5499 ####[facility] [place] [address], [place] BASIC METABOLIC PANELon 08-02 Calcium [Mass/Vol] 7.9 mg/dL Low 8.6-10.3 [facility] Comment on above: Order Comment: No: D o not add to previous draw Performed By: #### 1 0070, 97056, 22200 ####[facility] [place] [address], [place] Chloride [Moles/Vol] 104 mmol/L Normal 98-107 [facility] Comment on above: Order Comment: No: D o not add to previous draw Performed By: #### 1 0070, 33228, 47105 ####[facility] [place] [address], [place] CO2 [Moles/Vol] 22 mmol/L Normal 21-31 [facility] Comment on above: Order Comment: No: D o not add to previous draw Performed By: #### 1 0070, 09680, 91749 ####[facility] [place] [address], [facility] Creatinine [Mass/Vol] 0.91 mg/dL Normal 0.70-1.30 [facility] Comment on above: Order Comment: No: D o not add to previous draw Performed By: #### 1 0070, 47360, 33784 ####[facility] [place] [address], [place] GFR/1.73 sq M.predicted among blacks MDRD (S/P/Bld) [Vol rate/Area] mL/min/{1.73_m2} Normal >60 [facility] Comment on above: Order Comment: No: D o not add to previous draw Result Comment: Calc ulation may not be valid for patients over 70 years Performed By: #### 1 0070, 86335, 96172 ####[facility] [place] [address], [place] GFR/1.73 sq M.predicted among non-blacks MDRD (S/P/Bld) [Vol rate/Area] mL/min/{1.73_m2} Normal >60 [facility] Comment on above: Order Comment: No: D o not add to previous draw Result Comment: Calc ulation may not be valid for patients over 70 years Performed By: #### 1 0, 40718, 16622 ####[facility] [place] [address], [facility] Glucose [Mass/Vol] 154 mg/dL High 70-100 [facility] Comment on above: Order Comment: No: D o not add to previous draw Performed By: #### 1 0, 24983, 36178 ####[facility] [place] [address], [facility] Potassium [Moles/Vol] 4.4 mmol/L Normal 3.5-5.1 [facility] Comment on above: Order Comment: No: D o not add to previous draw Performed By: #### 1 0, 00692, 39081 ####[facility] [place] [address], [facility] Sodium [Moles/Vol] 133 mmol/L Low 136-145 [facility] Comment on above: Order Comment: No: D o not add to previous draw Performed By: #### 1 0, 25304, 67046 ####[facility] [facility] [place] [address], [facility] Urea nitrogen [Mass/Vol] 14 mg/dL Normal 7-25 [facility] Comment on above: Order Comment: No: D o not add to previous draw Performed By: #### 1 0, 12845, 48425 ####[facility] [place] [address], [facility] CBC COMPLETE BLOOD COUNTon 1 10-21-2020 Erythrocyte distribution width (RBC) [Ratio] 14.6 % Normal 11.5-15.0 [facility] Comment on above: Order Comment: No: D o not add to previous drawPT in restroom Performed By: #### 5 0608 ####[facility] [place] [address], [place] Hematocrit (Bld) [Volume fraction] 33.2 % Low 39.0-50.0 [facility] Comment on above: Order Comment: No: D o not add to previous drawPT in restroom Performed By: #### 5 0608 ####[facility] Hemoglobin (Bld) [Mass/Vol] 11.2 g/dL Low 13.0-17.0 [facility] Comment on above: Order Comment: No: D o not add to previous drawPT in restroom Performed By: #### 5 0608 ####[facility] MCH (RBC) [Entitic mass] 32.2 pg Normal 27.0-33.0 [facility] Comment on above: Order Comment: No: D o not add to previous drawPT in restroom Performed By: #### 5 0608 ####[facility] MCHC (RBC) [Mass/Vol] 33.7 g/dL Normal 32.0-35.0 [facility] Comment on above: Order Comment: No: D o not add to previous drawPT in restroom Performed By: #### 5 0608 ####[facility] MCV (RBC) [Entitic vol] 95.4 fL Normal 82.0-98.0 [facility] Comment on above: Order Comment: No: D o not add to previous drawPT in restroom Performed By: #### 5 0608 ####[facility] Nucleated RBC/100 WBC (Bld) [Ratio] 0 % Normal 0-0 [facility] Comment on above: Order Comment: No: D o not add to previous drawPT in restroom Performed By: #### 5 0608 ####[facility] [facility] [place] [address], [facility] PLAT CNT 155 10*3/uL Normal 150-400 [facility] Comment on above: Order Comment: No: D o not add to previous drawPT in restroom Performed By: #### 5 0608 ####[facility] [facility] [place] [address], [facility] RBC (Bld) [#/Vol] 3.48 10*6/uL Low 4.20-5.70 [facility] Comment on above: Order Comment: No: D o not add to previous drawPT in restroom Performed By: #### 5 0608 ####[address] [place] [address], [facility] WBC (Bld) [#/Vol] 19.89 10*3/uL High 4.00-10.60 [facility] Comment on above: Order Comment: No: D o not add to previous drawPT in restroom Performed By: #### 5 0608 ####[facility] [facility] MAGNESIUM BLOODon 08-20-2021 Magnesium [Mass/Vol] 1.7 mg/dL Low 1.9-2.7 [facility] Comment on above: Order Comment: No: D o not add to previous draw Performed By: #### 1 0, 51207, 94488 ####[facility] [facility] [place] [address], [facility] PHOSPHORUS BLOODon Phosphate [Mass/Vol] 3.1 mg/dL Normal 2.5-5.0 [facility] Comment on above: Order Comment: No: D o not add to previous draw Performed By: #### 1 0, 34019, 87989 ####[facility] [facility] [place] [address], [facility] POC GLUCOSE LABon 08-20-2021 Glucose [Mass/Vol] 152 mg/dL High 70-100 [facility] Comment on above: Performed By: #### 8 5499 ####[facility] [place] [address], [place] Glucose [Mass/Vol] 145 mg/dL High 70-100 [facility] Comment on above: Performed By: #### 8 5499 ####[facility] [place] [address], [place] Glucose [Mass/Vol] 159 mg/dL High 70-100 [facility] Comment on above: Performed By: #### 8 5499 ####[facility] [facility] [place] [address], [place] Glucose [Mass/Vol] 175 mg/dL High 70-100 [facility] Comment on above: Performed By: #### 8 5499 ####[facility] [place] [address], [place] Glucose [Mass/Vol] 160 mg/dL High 70-100 [facility] Comment on above: Performed By: #### 8 5499 ####[place] [id number] [place] [address], [place] BASIC METABOLIC PANELon 12-1 Calcium [Mass/Vol] 8.3 mg/dL Low 8.6-10.3 [facility] Comment on above: Order Comment: No: D o not add to previous drawMissed Performed By: #### 4 999, 69444, 68678 ####[facility] [place] [address], [place] Chloride [Moles/Vol] 103 mmol/L Normal 98-107 [facility] Comment on above: Order Comment: No: D o not add to previous drawMissed Performed By: #### 4 999, 39190, 93249 ####[facility] [facility] [place] [address], [facility] CO2 [Moles/Vol] 23 mmol/L Normal 21-31 [facility] Comment on above: Order Comment: No: D o not add to previous drawMissed Performed By: #### 4 1000, 36747, 91380 ####[facility] [facility] [place] [address], [facility] Creatinine [Mass/Vol] 0.86 mg/dL Normal 0.70-1.30 [facility] Comment on above: Order Comment: No: D o not add to previous drawMissed Performed By: #### 4 1000, 03007, 89271 ####[facility] [facility] [place] [address], [facility] GFR/1.73 sq M.predicted among blacks MDRD (S/P/Bld) [Vol rate/Area] mL/min/{1.73_m2} Normal >60 [facility] Comment on above: Order Comment: No: D o not add to previous drawMissed Result Comment: Calc ulation may not be valid for patients over 70 years Performed By: #### 4 1000, 24062, 31702 ####[facility] [facility] [place] [address], [facility] GFR/1.73 sq M.predicted among non-blacks MDRD (S/P/Bld) [Vol rate/Area] mL/min/{1.73_m2} Normal >60 [facility] Comment on above: Order Comment: No: D o not add to previous drawMissed Result Comment: Calc ulation may not be valid for patients over 70 years Performed By: #### 4 1000, 58181, 68884 ####[facility] [facility] [place] [address], [facility] Glucose [Mass/Vol] 176 mg/dL High 70-100 [facility] Comment on above: Order Comment: No: D o not add to previous drawMissed Performed By: #### 4 1000, 55881, 01424 ####[facility] [place] [address], [place] Potassium [Moles/Vol] 4.8 mmol/L Normal 3.5-5.1 [facility] Comment on above: Order Comment: No: D o not add to previous drawMissed Performed By: #### 4 1000, 52253, 36839 ####[facility] [place] [address], [place] Sodium [Moles/Vol] 132 mmol/L Low 136-145 [facility] Comment on above: Order Comment: No: D o not add to previous drawMissed Performed By: #### 4 1000, 74945, 36136 ####[facility] [place] [address], [place] Urea nitrogen [Mass/Vol] 16 mg/dL Normal 7-25 [facility] Comment on above: Order Comment: No: D o not add to previous drawMissed Performed By: #### 4 1000, 51158, 12623 ####[facility] [place] [address], [facility] CBC COMPLETE BLOOD COUNTon 10-20-2020 Erythrocyte distribution width (RBC) [Ratio] 14.6 % Normal 11.5-15.0 [facility] Comment on above: Order Comment: No: D o not add to previous drawMissed Performed By: #### 5 0608 ####[facility] [place] [address], [place] Hematocrit (Bld) [Volume fraction] 38.2 % Low 39.0-50.0 [facility] Comment on above: Order Comment: No: D o not add to previous drawMissed Performed By: #### 5 0608 ####[facility] [place] [address], [place] Hemoglobin (Bld) [Mass/Vol] 12.4 g/dL Low 13.0-17.0 [facility] Comment on above: Order Comment: No: D o not add to previous drawMissed Performed By: #### 5 0608 ####[facility] [facility].[address] MCH (RBC) [Entitic mass] 31.9 pg Normal 27.0-33.0 [facility] Comment on above: Order Comment: No: D o not add to previous drawMissed Performed By: #### 5 0608 ####[facility] [facility].[address] MCHC (RBC) [Mass/Vol] 32.5 g/dL Normal 32.0-35.0 [facility] Comment on above: Order Comment: No: D o not add to previous drawMissed Performed By: #### 5 0608 ####[facility] [facility].[address] MCV (RBC) [Entitic vol] 98.2 fL High 82.0-98.0 [facility] Comment on above: Order Comment: No: D o not add to previous drawMissed Performed By: #### 5 0608 ####[place] [id number] [facility].[address] Nucleated RBC/100 WBC (Bld) [Ratio] 0 % Normal 0-0 [facility] Comment on above: Order Comment: No: D o not add to previous drawMissed Performed By: #### 5 0608 ####[facility] [facility].[address] PLAT CNT 162 10*3/uL Normal 150-400 [facility] Comment on above: Order Comment: No: D o not add to previous drawMissed Performed By: #### 5 0608 ####[address] RBC (Bld) [#/Vol] 3.89 10*6/uL Low 4.20-5.70 [facility] Comment on above: Order Comment: No: D o not add to previous drawMissed Performed By: #### 5 0608 ####[facility] [place] [address], [facility] WBC (Bld) [#/Vol] 26.86 10*3/uL High 4.00-10.60 [facility] Comment on above: Order Comment: No: D o not add to previous drawMissed Performed By: #### 5 0608 ####[facility] [place] [address], [facility] CT ABDOMEN AND PELVIS WO CON TRASTon 08-19-2021 CT ABDOMEN AND PELVIS WO CONTRAST Normal [facility] Comment on above: Order Comment: Other , s/p Colostomy Reversal. Concerns for anastomotic leak. Please use Rectal Contrast. MAGNESIUM BLOODon 08-19-2021 Magnesium [Mass/Vol] 2.2 mg/dL Normal 1.9-2.7 [facility] Comment on above: Order Comment: No: D o not add to previous drawMissed Performed By: #### 4 1000, 46596, 52528 ####[facility] [facility] [address], [facility] PHOSPHORUS BLOODon Phosphate [Mass/Vol] 3.4 mg/dL Normal 2.5-5.0 [facility] Comment on above: Order Comment: No: D o not add to previous drawMissed Performed By: #### 4 1000, 30264, 49000 ####[facility] [place] [address], [facility] POC GLUCOSE LABon 08-19-2021 Glucose [Mass/Vol] 153 mg/dL High 70-100 [facility] Comment on above: Performed By: #### 8 5499 ####[facility] [place] [address], [place] Glucose [Mass/Vol] 108 mg/dL High 70-100 [facility] Comment on above: Performed By: #### 8 5499 ####[facility] [place] [address], [place] Glucose [Mass/Vol] 122 mg/dL High 70-100 [facility] Comment on above: Performed By: #### 8 5499 ####[facility] [place] [address], [place] Glucose [Mass/Vol] 146 mg/dL High 70-100 [facility] Comment on above: Performed By: #### 8 5499 ####[facility] [place] [address], [place] BASIC METABOLIC PANELon 12-1 Calcium [Mass/Vol] 8.5 mg/dL Low 8.6-10.3 [facility] Comment on above: Order Comment: No: D o not add to previous draw Performed By: #### 1 0070, 20249, 83421 ####[facility] [place] [address], [place] Chloride [Moles/Vol] 100 mmol/L Normal 98-107 [facility] Comment on above: Order Comment: No: D o not add to previous draw Performed By: #### 1 0070, 27973, 08360 ####[facility] [place] [address], [place] CO2 [Moles/Vol] 26 mmol/L Normal 21-31 [facility] Comment on above: Order Comment: No: D o not add to previous draw Performed By: #### 1 0070, 18734, 92506 ####[facility] [place] [address], [place] Creatinine [Mass/Vol] 0.73 mg/dL Normal 0.70-1.30 [facility] Comment on above: Order Comment: No: D o not add to previous draw Performed By: #### 1 0070, 07532, 27065 ####[facility] [place] [address], [facility] GFR/1.73 sq M.predicted among blacks MDRD (S/P/Bld) [Vol rate/Area] mL/min/{1.73_m2} Normal >60 [facility] Comment on above: Order Comment: No: D o not add to previous draw Result Comment: Calc ulation may not be valid for patients over 70 years Performed By: #### 1 0070, 58993, 33478 ####[facility] [place] [address], [facility] GFR/1.73 sq M.predicted among non-blacks MDRD (S/P/Bld) [Vol rate/Area] mL/min/{1.73_m2} Normal >60 [facility] Comment on above: Order Comment: No: D o not add to previous draw Result Comment: Calc ulation may not be valid for patients over 70 years Performed By: #### 1 0070, 31856, 22379 ####[facility] [facility] [place] [address], [place] Glucose [Mass/Vol] 168 mg/dL High 70-100 [facility] Comment on above: Order Comment: No: D o not add to previous draw Performed By: #### 1 0070, 31522, 48119 ####[facility] [place] [address], [place] Potassium [Moles/Vol] 4.3 mmol/L Normal 3.5-5.1 [facility] Comment on above: Order Comment: No: D o not add to previous draw Performed By: #### 1 0070, 88846, 39842 ####[facility] [place] [address], [place] Sodium [Moles/Vol] 135 mmol/L Low 136-145 [facility] Comment on above: Order Comment: No: D o not add to previous draw Performed By: #### 1 0070, 47317, 31818 ####[facility] [facility] Urea nitrogen [Mass/Vol] 15 mg/dL Normal 7-25 [facility] Comment on above: Order Comment: No: D o not add to previous draw Performed By: #### 1 0, 30635, 97126 ####[facility] [facility] [place] [address], [facility] CBC W/DIFFon 08-18-2021 ABS NEUTROPHILS 14.1 10*3/uL High 1.6-7.6 [facility] Comment on above: Order Comment: No: D o not add to previous draw Performed By: #### 5 0103 ####[facility] [facility] [place] [address], [facility] Basophils (Bld) [#/Vol] 0.0 10*3/uL Normal 0.0-0.2 [facility] Comment on above: Order Comment: No: D o not add to previous draw Performed By: #### 5 102 ####[facility] [facility] [place] [address], [facility] Basophils/100 WBC (Bld) 0.0 % Normal 0.0-1.0 [facility] Comment on above: Order Comment: No: D o not add to previous draw Performed By: #### 5 0103 ####[facility] [facility] [place] [address], [facility] Eosinophils (Bld) [#/Vol] 0.3 10*3/uL Normal 0.0-0.5 [facility] Comment on above: Order Comment: No: D o not add to previous draw Performed By: #### 5 3 ####[facility] [facility].[address] Eosinophils/100 WBC (Bld) 1.0 % Normal 0.0-6.0 [facility] Comment on above: Order Comment: No: D o not add to previous draw Performed By: #### 5 0103 ####[facility] [facility] Erythrocyte distribution width (RBC) [Ratio] 14.5 % Normal 11.5-15.0 [facility] Comment on above: Order Comment: No: D o not add to previous draw Performed By: #### 5 0103 ####[place] [id number] GIANT PLATELETS Present Normal [facility] Comment on above: Order Comment: No: D o not add to previous draw Performed By: #### 5 0103 ####[facility] [facility].[address] Hematocrit (Bld) [Volume fraction] 38.5 % Low 39.0-50.0 [facility] Comment on above: Order Comment: No: D o not add to previous draw Performed By: #### 5 0103 ####[facility] [facility].[address] Hemoglobin (Bld) [Mass/Vol] 13.0 g/dL Normal 13.0-17.0 [facility] Comment on above: Order Comment: No: D o not add to previous draw Performed By: #### 5 0103 ####[facility] [facility].[address] Lymphocytes (Bld) [#/Vol] 10.6 10*3/uL High 1.2-4.0 [facility] Comment on above: Order Comment: No: D o not add to previous draw Performed By: #### 5 0103 ####[facility] [facility] Lymphocytes/100 WBC (Bld) 40.4 % Normal 20.0-45.0 [facility] Comment on above: Order Comment: No: D o not add to previous draw Performed By: #### 5 0103 ####[facility] [place] [address], [facility] MCH (RBC) [Entitic mass] 32.2 pg Normal 27.0-33.0 [facility] Comment on above: Order Comment: No: D o not add to previous draw Performed By: #### 5 0103 ####[facility] [facility].[address] MCHC (RBC) [Mass/Vol] 33.8 g/dL Normal 32.0-35.0 [facility] Comment on above: Order Comment: No: D o not add to previous draw Performed By: #### 5 0103 ####[facility] [facility].[address] MCV (RBC) [Entitic vol] 95.3 fL Normal 82.0-98.0 [facility] Comment on above: Order Comment: No: D o not add to previous draw Performed By: #### 5 3 ####[facility] [facility].[address] Monocytes (Bld) [#/Vol] 1.3 10*3/uL High 0.1-1.0 [facility] Comment on above: Order Comment: No: D o not add to previous draw Performed By: #### 5 3 ####[facility] [facility] [place] [address], [facility] MONOS 5.1 % Normal 5.0-12.0 [facility] Comment on above: Order Comment: No: D o not add to previous draw Performed By: #### 5 3 ####[facility] [facility] [place] [address], [facility] Neutrophils/100 WBC (Bld) 53.5 % Normal 40.0-72.0 [facility] Comment on above: Order Comment: No: D o not add to previous draw Performed By: #### 5 0103 ####[facility] [place] [address], [facility] Nucleated RBC/100 WBC (Bld) [Ratio] 0 % Normal 0-0 [facility] Comment on above: Order Comment: No: D o not add to previous draw Performed By: #### 5 0103 ####[facility] [place] [address], [facility] PLAT CNT 173 10*3/uL Normal 150-400 [facility] Comment on above: Order Comment: No: D o not add to previous draw Performed By: #### 5 0103 ####[facility] [facility] [place] [address], [facility] RBC (Bld) [#/Vol] 4.04 10*6/uL Low 4.20-5.70 [facility] Comment on above: Order Comment: No: D o not add to previous draw Performed By: #### 5 0103 ####[facility] [place] [address], [facility] SMUDGE CELLS MANY Normal [facility] Comment on above: Order Comment: No: D o not add to previous draw Result Comment: Resu lt changed by [email or web address] on 08/18/2021 06:13. The previous value wasPresent. Performed By: #### 5 0103 ####[facility] [place] [address], [facility] WBC (Bld) [#/Vol] 26.29 10*3/uL High 4.00-10.60 [facility] Comment on above: Order Comment: No: D o not add to previous draw Performed By: #### 5 0103 ####[facility] [place] [address], [place] MAGNESIUM BLOODon 08-18-2021 Magnesium [Mass/Vol] 1.9 mg/dL Normal 1.9-2.7 [facility] Comment on above: Order Comment: No: D o not add to previous draw Performed By: #### 1 0070, 33697, 03551 ####[facility] [place] [address], [place] PHOSPHORUS BLOODon Phosphate [Mass/Vol] 3.6 mg/dL Normal 2.5-5.0 [facility] Comment on above: Order Comment: No: D o not add to previous draw Performed By: #### 1 0070, 73682, 91055 ####[facility] [place] [address], [place] POC GLUCOSE LABon 08-18-2021 Glucose [Mass/Vol] 221 mg/dL High 70-100 [facility] Comment on above: Performed By: #### 8 5499 ####[facility] [place] [address], [place] Glucose [Mass/Vol] 149 mg/dL High 70-100 [facility] Comment on above: Performed By: #### 8 5499 ####[facility] [place] [address], [place] Glucose [Mass/Vol] 183 mg/dL High 70-100 [facility] Comment on above: Performed By: #### 8 5499 ####[facility] [place] [address], [place] Glucose [Mass/Vol] 168 mg/dL High 70-100 [facility] Comment on above: Performed By: #### 8 5499 ####[facility] [place] [address], [place] Glucose [Mass/Vol] 187 mg/dL High 70-100 [facility] Comment on above: Performed By: #### 8 5499 ####[facility] [id number], [facility] Glucose [Mass/Vol] 141 mg/dL High 70-100 [facility] Comment on above: Performed By: #### 8 5499 ####[facility] [place] [address], [facility] AMMONIA BLOODon 08-17-2021 Ammonia (P) [Moles/Vol] 10 umol/L Low 16-53 [facility] Comment on above: Order Comment: Yes: Add to Previous draw if able Performed By: #### 2 1408 ####[facility] [facility] [address], [facility] BASIC METABOLIC PANELon 08-02 Calcium [Mass/Vol] 8.6 mg/dL Normal 8.6-10.3 [facility] Comment on above: Order Comment: No: D o not add to previous draw Performed By: #### 0 0071 ####[facility] [facility] [address], [facility] Chloride [Moles/Vol] 101 mmol/L Normal 98-107 [facility] Comment on above: Order Comment: No: D o not add to previous draw Performed By: #### 0 0071 ####[facility] [facility] [address], [place] CO2 [Moles/Vol] 27 mmol/L Normal 21-31 [facility] Comment on above: Order Comment: No: D o not add to previous draw Performed By: #### 0 0071 ####[facility] [place] [address], [place] Creatinine [Mass/Vol] 0.75 mg/dL Normal 0.70-1.30 [facility] Comment on above: Order Comment: No: D o not add to previous draw Performed By: #### 0 0071 ####[facility] [facility] [place] [address], [facility] GFR/1.73 sq M.predicted among blacks MDRD (S/P/Bld) [Vol rate/Area] mL/min/{1.73_m2} Normal >60 [facility] Comment on above: Order Comment: No: D o not add to previous draw Result Comment: Calc ulation may not be valid for patients over 70 years Performed By: #### 0 0071 ####[facility] [facility] [place] [address], [facility] GFR/1.73 sq M.predicted among non-blacks MDRD (S/P/Bld) [Vol rate/Area] mL/min/{1.73_m2} Normal >60 [facility] Comment on above: Order Comment: No: D o not add to previous draw Result Comment: Calc ulation may not be valid for patients over 70 years Performed By: #### 0 0071 ####[facility] [facility] [place] [address], [facility] Glucose [Mass/Vol] 129 mg/dL High 70-100 [facility] Comment on above: Order Comment: No: D o not add to previous draw Performed By: #### 0 0071 ####[facility] [facility] [place] [address], [facility] Potassium [Moles/Vol] 4.0 mmol/L Normal 3.5-5.1 [facility] Comment on above: Order Comment: No: D o not add to previous draw Performed By: #### 0 0071 ####[facility] [facility].[place] [id number], [facility] Sodium [Moles/Vol] 135 mmol/L Low 136-145 [facility] Comment on above: Order Comment: No: D o not add to previous draw Performed By: #### 0 0071 ####[facility] [facility].[address] Urea nitrogen [Mass/Vol] 11 mg/dL Normal 7-25 [facility] Comment on above: Order Comment: No: D o not add to previous draw Performed By: #### 0 1 ####[facility] [facility].[address] CBC COMPLETE BLOOD COUNTon 10-18-2020 Erythrocyte distribution width (RBC) [Ratio] 14.2 % Normal 11.5-15.0 [facility] Comment on above: Order Comment: No: D o not add to previous draw Performed By: #### 5 0608 ####[facility] Hematocrit (Bld) [Volume fraction] 38.8 % Low 39.0-50.0 [facility] Comment on above: Order Comment: No: D o not add to previous draw Performed By: #### 5 0608 ####[facility] [facility].[address] Hemoglobin (Bld) [Mass/Vol] 13.4 g/dL Normal 13.0-17.0 [facility] Comment on above: Order Comment: No: D o not add to previous draw Performed By: #### 5 0608 ####[facility] [facility] [place] [address], [facility] MCH (RBC) [Entitic mass] 32.2 pg Normal 27.0-33.0 [facility] Comment on above: Order Comment: No: D o not add to previous draw Performed By: #### 5 0608 ####[facility] [facility] [place] [address], [facility] MCHC (RBC) [Mass/Vol] 34.5 g/dL Normal 32.0-35.0 [facility] Comment on above: Order Comment: No: D o not add to previous draw Performed By: #### 5 0608 ####[facility] [place] [address], [facility] MCV (RBC) [Entitic vol] 93.3 fL Normal 82.0-98.0 [facility] Comment on above: Order Comment: No: D o not add to previous draw Performed By: #### 5 0608 ####[facility] [facility] [place] [address], [facility] Nucleated RBC/100 WBC (Bld) [Ratio] 0 % Normal 0-0 [facility] Comment on above: Order Comment: No: D o not add to previous draw Performed By: #### 5 0608 ####[facility] [facility] [place] [address], [facility] PLAT CNT 168 10*3/uL Normal 150-400 [facility] Comment on above: Order Comment: No: D o not add to previous draw Performed By: #### 5 0608 ####[facility] [place] [address].[place] [address], [facility] RBC (Bld) [#/Vol] 4.16 10*6/uL Low 4.20-5.70 [facility] Comment on above: Order Comment: No: D o not add to previous draw Performed By: #### 5 0608 ####[facility] [facility] [place] [address], [facility] WBC (Bld) [#/Vol] 26.64 10*3/uL High 4.00-10.60 [facility] Comment on above: Order Comment: No: D o not add to previous draw Performed By: #### 5 0608 ####[facility] [place] [address].[place] [address], [facility] LACTATE BLOODon 08-17-2021 Lactate [Moles/Vol] 0.7 mmol/L Normal .5-2.2 [facility] Comment on above: Order Comment: Yes: Add to Previous draw if able Performed By: #### 1 0054 ####[facility] [place] [address], [place] POC GLUCOSE LABon 08-17-2021 Glucose [Mass/Vol] 141 mg/dL High 70-100 [facility] Comment on above: Performed By: #### 8 5499 ####[facility] [place] [address], [place] Glucose [Mass/Vol] 166 mg/dL High 70-100 [facility] Comment on above: Performed By: #### 8 5499 ####[facility] [place] [address], [place] Glucose [Mass/Vol] 126 mg/dL High 70-100 [facility] Comment on above: Performed By: #### 8 5499 ####[facility] [place] [address], [place] Glucose [Mass/Vol] 150 mg/dL High 70-100 [facility] Comment on above: Performed By: #### 8 5499 ####[facility] [place] [address], [place] Glucose [Mass/Vol] 144 mg/dL High 70-100 [facility] Comment on above: Performed By: #### 8 5499 ####[facility] [place] [address], [place] Glucose [Mass/Vol] 146 mg/dL High 70-100 [facility] Comment on above: Performed By: #### 8 5499 ####[facility] [place] [address], [place] BASIC METABOLIC PANELon 08-02 Calcium [Mass/Vol] 8.4 mg/dL Low 8.6-10.3 [facility] Comment on above: Order Comment: No: D o not add to previous draw Performed By: #### 0 0071 ####[facility] [facility] [place] [address], [facility] Chloride [Moles/Vol] 101 mmol/L Normal 98-107 [facility] Comment on above: Order Comment: No: D o not add to previous draw Performed By: #### 0 0071 ####[facility] [place] [place] [address], [facility] CO2 [Moles/Vol] 27 mmol/L Normal 21-31 [facility] Comment on above: Order Comment: No: D o not add to previous draw Performed By: #### 0 0071 ####[facility] [facility] [place] [address], [facility] Creatinine [Mass/Vol] 0.75 mg/dL Normal 0.70-1.30 [facility] Comment on above: Order Comment: No: D o not add to previous draw Performed By: #### 0 0071 ####[facility] [facility] [place] [address], [facility] GFR/1.73 sq M.predicted among blacks MDRD (S/P/Bld) [Vol rate/Area] mL/min/{1.73_m2} Normal >60 [facility] Comment on above: Order Comment: No: D o not add to previous draw Result Comment: Calc ulation may not be valid for patients over 70 years Performed By: #### 0 0071 ####[facility] [place] [address], [facility] GFR/1.73 sq M.predicted among non-blacks MDRD (S/P/Bld) [Vol rate/Area] mL/min/{1.73_m2} Normal >60 [facility] Comment on above: Order Comment: No: D o not add to previous draw Result Comment: Calc ulation may not be valid for patients over 70 years Performed By: #### 0 0071 ####[facility] [place] [address], [facility] Glucose [Mass/Vol] 146 mg/dL High 70-100 [facility] Comment on above: Order Comment: No: D o not add to previous draw Performed By: #### 0 0071 ####[facility] [place] [address], [facility] Potassium [Moles/Vol] 4.4 mmol/L Normal 3.5-5.1 [facility] Comment on above: Order Comment: No: D o not add to previous draw Performed By: #### 0 0071 ####[facility] [place] [address], [facility] Sodium [Moles/Vol] 135 mmol/L Low 136-145 [facility] Comment on above: Order Comment: No: D o not add to previous draw Performed By: #### 0 0071 ####[facility] [facility].[address] Urea nitrogen [Mass/Vol] 11 mg/dL Normal 7-25 [facility] Comment on above: Order Comment: No: D o not add to previous draw Performed By: #### 0 0071 ####[facility] [facility].[address] CBC COMPLETE BLOOD COUNTon 10-17-2020 Erythrocyte distribution width (RBC) [Ratio] 14.1 % Normal 11.5-15.0 [facility] Comment on above: Order Comment: No: D o not add to previous draw Performed By: #### 5 0608 ####[facility] [place] [address], [facility] Hematocrit (Bld) [Volume fraction] 38.5 % Low 39.0-50.0 [facility] Comment on above: Order Comment: No: D o not add to previous draw Performed By: #### 5 0608 ####[facility] Hemoglobin (Bld) [Mass/Vol] 12.8 g/dL Low 13.0-17.0 [facility] Comment on above: Order Comment: No: D o not add to previous draw Performed By: #### 5 0608 ####[facility] [place] [address] MCH (RBC) [Entitic mass] 31.9 pg Normal 27.0-33.0 [facility] Comment on above: Order Comment: No: D o not add to previous draw Performed By: #### 5 0608 ####[address] MCHC (RBC) [Mass/Vol] 33.2 g/dL Normal 32.0-35.0 [facility] Comment on above: Order Comment: No: D o not add to previous draw Performed By: #### 5 0608 ####[address] MCV (RBC) [Entitic vol] 96.0 fL Normal 82.0-98.0 [facility] Comment on above: Order Comment: No: D o not add to previous draw Performed By: #### 5 0608 ####[address] Nucleated RBC/100 WBC (Bld) [Ratio] 0 % Normal 0-0 [facility] Comment on above: Order Comment: No: D o not add to previous draw Performed By: #### 5 0608 ####[address] PLAT CNT 142 10*3/uL Low 150-400 [facility] Comment on above: Order Comment: No: D o not add to previous draw Performed By: #### 5 0608 ####[facility] [place] [address], [place] RBC (Bld) [#/Vol] 4.01 10*6/uL Low 4.20-5.70 [facility] Comment on above: Order Comment: No: D o not add to previous draw Performed By: #### 5 0608 ####[facility] [place] [address], [place] WBC (Bld) [#/Vol] 23.65 10*3/uL High 4.00-10.60 [facility] Comment on above: Order Comment: No: D o not add to previous draw Performed By: #### 5 0608 ####[facility] [place] [address], [place] POC GLUCOSE LABon 08-16-2021 Glucose [Mass/Vol] 136 mg/dL High 70-100 [facility] Comment on above: Performed By: #### 8 5499 ####[facility] [place] [address], [place] Glucose [Mass/Vol] 149 mg/dL High 70-100 [facility] Comment on above: Performed By: #### 8 5499 ####[facility] [place] [address], [place] Glucose [Mass/Vol] 138 mg/dL High 70-100 [facility] Comment on above: Performed By: #### 8 5499 ####[facility] [place] [address], [place] Glucose [Mass/Vol] 131 mg/dL High 70-100 [facility] Comment on above: Performed By: #### 8 5499 ####[facility] [place] [address], [place] Glucose [Mass/Vol] 139 mg/dL High 70-100 [facility] Comment on above: Performed By: #### 8 5499 ####[facility] [place] [address], [facility] BASIC METABOLIC PANELon 12- Calcium [Mass/Vol] 8.0 mg/dL Low 8.6-10.3 [facility] Comment on above: Order Comment: No: D o not add to previous draw Performed By: #### 1 0070, 28013, 65249 ####[facility] [place] [address], [facility] Chloride [Moles/Vol] 102 mmol/L Normal 98-107 [facility] Comment on above: Order Comment: No: D o not add to previous draw Performed By: #### 1 0, 09509, 36811 ####[facility] [place] [address], [place] CO2 [Moles/Vol] 28 mmol/L Normal 21-31 [facility] Comment on above: Order Comment: No: D o not add to previous draw Performed By: #### 1 0, 58440, 22529 ####[facility] [place] [address], [facility] Creatinine [Mass/Vol] 0.71 mg/dL Normal 0.70-1.30 [facility] Comment on above: Order Comment: No: D o not add to previous draw Performed By: #### 1 0070, 72266, 92495 ####[facility] [place] [address], [place] GFR/1.73 sq M.predicted among blacks MDRD (S/P/Bld) [Vol rate/Area] mL/min/{1.73_m2} Normal >60 [facility] Comment on above: Order Comment: No: D o not add to previous draw Result Comment: Calc ulation may not be valid for patients over 70 years Performed By: #### 1 0070, 41813, 69519 ####[facility] [place] [address], [facility] GFR/1.73 sq M.predicted among non-blacks MDRD (S/P/Bld) [Vol rate/Area] mL/min/{1.73_m2} Normal >60 [facility] Comment on above: Order Comment: No: D o not add to previous draw Result Comment: Calc ulation may not be valid for patients over 70 years Performed By: #### 1 0070, 01667, 51726 ####[facility] [place] [address], [facility] Glucose [Mass/Vol] 163 mg/dL High 70-100 [facility] Comment on above: Order Comment: No: D o not add to previous draw Performed By: #### 1 0, 30398, 95370 ####[facility] [place] [address], [facility] Potassium [Moles/Vol] 4.0 mmol/L Normal 3.5-5.1 [facility] Comment on above: Order Comment: No: D o not add to previous draw Performed By: #### 1 0, 51262, 05942 ####[facility] [place] [address], [place] Sodium [Moles/Vol] 135 mmol/L Low 136-145 [facility] Comment on above: Order Comment: No: D o not add to previous draw Performed By: #### 1 0, 30769, 19436 ####[facility] [place] [address], [place] Urea nitrogen [Mass/Vol] 10 mg/dL Normal 7-25 [facility] Comment on above: Order Comment: No: D o not add to previous draw Performed By: #### 1 0, 34638, 11943 ####[facility] [place] [address], [place] CBC COMPLETE BLOOD COUNTon 10-16-2020 Erythrocyte distribution width (RBC) [Ratio] 14.3 % Normal 11.5-15.0 [facility] Comment on above: Order Comment: No: D o not add to previous draw Performed By: #### 5 0608 ####[address] Hematocrit (Bld) [Volume fraction] 37.2 % Low 39.0-50.0 [facility] Comment on above: Order Comment: No: D o not add to previous draw Performed By: #### 5 0608 ####[address] Hemoglobin (Bld) [Mass/Vol] 12.2 g/dL Low 13.0-17.0 [facility] Comment on above: Order Comment: No: D o not add to previous draw Performed By: #### 5 0608 ####[address] MCH (RBC) [Entitic mass] 31.9 pg Normal 27.0-33.0 [facility] Comment on above: Order Comment: No: D o not add to previous draw Performed By: #### 5 0608 ####[address] MCHC (RBC) [Mass/Vol] 32.8 g/dL Normal 32.0-35.0 [facility] Comment on above: Order Comment: No: D o not add to previous draw Performed By: #### 5 0608 ####[address] MCV (RBC) [Entitic vol] 97.1 fL Normal 82.0-98.0 [facility] Comment on above: Order Comment: No: D o not add to previous draw Performed By: #### 5 0608 ####[address] Nucleated RBC/100 WBC (Bld) [Ratio] 0 % Normal 0-0 [facility] Comment on above: Order Comment: No: D o not add to previous draw Performed By: #### 5 0608 ####[facility] [facility] [place] [address], [facility] PLAT CNT 156 10*3/uL Normal 150-400 [facility] Comment on above: Order Comment: No: D o not add to previous draw Performed By: #### 5 0608 ####[place] [address], [facility] RBC (Bld) [#/Vol] 3.83 10*6/uL Low 4.20-5.70 [facility] Comment on above: Order Comment: No: D o not add to previous draw Performed By: #### 5 0608 ####[facility] [facility] [place] [address], [facility] WBC (Bld) [#/Vol] 25.37 10*3/uL High 4.00-10.60 [facility] Comment on above: Order Comment: No: D o not add to previous draw Performed By: #### 5 0608 ####[address] MAGNESIUM BLOODon 08-15-2021 Magnesium [Mass/Vol] 2.0 mg/dL Normal 1.9-2.7 [facility] Comment on above: Order Comment: No: D o not add to previous draw Performed By: #### 1 0070, 02291, 27367 ####[facility] [facility] [place] [address], [facility] PHOSPHORUS BLOODon Phosphate [Mass/Vol] 2.6 mg/dL Normal 2.5-5.0 [facility] Comment on above: Order Comment: No: D o not add to previous draw Performed By: #### 1 0070, 29008, 74489 ####[facility] [place] [address], [place] POC GLUCOSE LABon 08-15-2021 Glucose [Mass/Vol] 179 mg/dL High 70-100 [facility] Comment on above: Performed By: #### 8 5499 ####[facility] [place] [address], [place] Glucose [Mass/Vol] 149 mg/dL High 70-100 [facility] Comment on above: Performed By: #### 8 5499 ####[facility] [place] [address], [place] Glucose [Mass/Vol] 162 mg/dL High 70-100 [facility] Comment on above: Performed By: #### 8 5499 ####[facility] [place] [address], [place] Glucose [Mass/Vol] 142 mg/dL High 70-100 [facility] Comment on above: Performed By: #### 8 5499 ####[facility] [place] [address], [place] Glucose [Mass/Vol] 154 mg/dL High 70-100 [facility] Comment on above: Performed By: #### 8 5499 ####[facility] [place] [address], [place] BASIC METABOLIC PANELon 08-02 Calcium [Mass/Vol] 8.3 mg/dL Low 8.6-10.3 [facility] Comment on above: Order Comment: No: D o not add to previous draw Performed By: #### 0 0071, 96589 ####[facility] [place] [address], [place] Calcium [Mass/Vol] 8.2 mg/dL Low 8.6-10.3 [facility] Comment on above: Order Comment: No: D o not add to previous draw Performed By: #### 4 1000, 33145, 97108 ####[facility] [place] [address], [place] Chloride [Moles/Vol] 100 mmol/L Normal 98-107 [facility] Comment on above: Order Comment: No: D o not add to previous draw Performed By: #### 0 0071, 04204 ####[facility] [place] [address], [place] Chloride [Moles/Vol] 101 mmol/L Normal 98-107 [facility] Comment on above: Order Comment: No: D o not add to previous draw Performed By: #### 4 1000, 08023, 78167 ####[facility] [place] [address], [place] CO2 [Moles/Vol] 30 mmol/L Normal 21-31 [facility] Comment on above: Order Comment: No: D o not add to previous draw Performed By: #### 0 0071, 94593 ####[facility] [place] [address], [place] CO2 [Moles/Vol] 31 mmol/L Normal 21-31 [facility] Comment on above: Order Comment: No: D o not add to previous draw Performed By: #### 4 1000, 55340, 29071 ####[facility] [place] [address], [place] Creatinine [Mass/Vol] 0.93 mg/dL Normal 0.70-1.30 [facility] Comment on above: Order Comment: No: D o not add to previous draw Performed By: #### 0 0071, 17552 ####[facility] [place] [address], [place] Creatinine [Mass/Vol] 0.85 mg/dL Normal 0.70-1.30 [facility] Comment on above: Order Comment: No: D o not add to previous draw Performed By: #### 4 1000, 37085, 83354 ####[facility] [facility] [address], [place] GFR/1.73 sq M.predicted among blacks MDRD (S/P/Bld) [Vol rate/Area] mL/min/{1.73_m2} Normal >60 [facility] Comment on above: Order Comment: No: D o not add to previous draw Result Comment: Calc ulation may not be valid for patients over 70 years Performed By: #### 0 0071, 20982 ####[facility] [facility] [address], [place] GFR/1.73 sq M.predicted among blacks MDRD (S/P/Bld) [Vol rate/Area] mL/min/{1.73_m2} Normal >60 [facility] Comment on above: Order Comment: No: D o not add to previous draw Result Comment: Calc ulation may not be valid for patients over 70 years Performed By: #### 4 1000, 96913, 24610 ####[facility] [facility] [address], [place] GFR/1.73 sq M.predicted among non-blacks MDRD (S/P/Bld) [Vol rate/Area] mL/min/{1.73_m2} Normal >60 [facility] Comment on above: Order Comment: No: D o not add to previous draw Result Comment: Calc ulation may not be valid for patients over 70 years Performed By: #### 0 0071, 51994 ####[facility] [facility] [address], [place] GFR/1.73 sq M.predicted among non-blacks MDRD (S/P/Bld) [Vol rate/Area] mL/min/{1.73_m2} Normal >60 [facility] Comment on above: Order Comment: No: D o not add to previous draw Result Comment: Calc ulation may not be valid for patients over 70 years Performed By: #### 4 1000, 96612, 30963 ####[facility] [place] [address], [place] Glucose [Mass/Vol] 144 mg/dL High 70-100 [facility] Comment on above: Order Comment: No: D o not add to previous draw Performed By: #### 0 0071, 80248 ####[facility] [place] [address], [place] Glucose [Mass/Vol] 158 mg/dL High 70-100 [facility] Comment on above: Order Comment: No: D o not add to previous draw Performed By: #### 4 999, 03805, 77734 ####[facility] [place] [address], [place] Potassium [Moles/Vol] 4.3 mmol/L Normal 3.5-5.1 [facility] Comment on above: Order Comment: No: D o not add to previous draw Performed By: #### 0 1, 48517 ####[facility] [place] [address], [place] Potassium [Moles/Vol] 3.8 mmol/L Normal 3.5-5.1 [facility] Comment on above: Order Comment: No: D o not add to previous draw Performed By: #### 4 999, 03674, 33378 ####[facility] [place] [address], [place] Sodium [Moles/Vol] 137 mmol/L Normal 136-145 [facility] Comment on above: Order Comment: No: D o not add to previous draw Performed By: #### 0 0071, 96697 ####[facility] [place] [address], [place] Sodium [Moles/Vol] 137 mmol/L Normal 136-145 [facility] Comment on above: Order Comment: No: D o not add to previous draw Performed By: #### 4 1000, 35288, 00058 ####[facility] [place] [address], [facility] Urea nitrogen [Mass/Vol] 10 mg/dL Normal 7-25 [facility] Comment on above: Order Comment: No: D o not add to previous draw Performed By: #### 0 0071, 84924 ####[facility] [place] [address], [facility] Urea nitrogen [Mass/Vol] 10 mg/dL Normal 7-25 [facility] Comment on above: Order Comment: No: D o not add to previous draw Performed By: #### 4 1000, 32191, 04983 ####[facility] CBC COMPLETE BLOOD COUNTon 10-15-2020 Erythrocyte distribution width (RBC) [Ratio] 14.3 % Normal 11.5-15.0 [facility] Comment on above: Order Comment: No: D o not add to previous draw Performed By: #### 5 0608 ####[place] [id number] [place] [address], [facility] Erythrocyte distribution width (RBC) [Ratio] 14.4 % Normal 11.5-15.0 [facility] Comment on above: Order Comment: No: D o not add to previous draw Performed By: #### 5 0608 ####[facility] [place] [address], [facility] Hematocrit (Bld) [Volume fraction] 37.3 % Low 39.0-50.0 [facility] Comment on above: Order Comment: No: D o not add to previous draw Performed By: #### 5 0608 ####[facility] Hematocrit (Bld) [Volume fraction] 36.0 % Low 39.0-50.0 [facility] Comment on above: Order Comment: No: D o not add to previous draw Performed By: #### 5 0608 ####[facility] [place] [address], [facility] Hemoglobin (Bld) [Mass/Vol] 12.5 g/dL Low 13.0-17.0 [facility] Comment on above: Order Comment: No: D o not add to previous draw Performed By: #### 5 0608 ####[address] Hemoglobin (Bld) [Mass/Vol] 12.2 g/dL Low 13.0-17.0 [facility] Comment on above: Order Comment: No: D o not add to previous draw Performed By: #### 5 0608 ####[facility] [place] [address], [facility] MCH (RBC) [Entitic mass] 32.1 pg Normal 27.0-33.0 [facility] Comment on above: Order Comment: No: D o not add to previous draw Performed By: #### 5 0608 ####[place] [address], [facility] MCH (RBC) [Entitic mass] 32.3 pg Normal 27.0-33.0 [facility] Comment on above: Order Comment: No: D o not add to previous draw Performed By: #### 5 0608 ####[facility] [facility] [place] [address], [facility] MCHC (RBC) [Mass/Vol] 33.5 g/dL Normal 32.0-35.0 [facility] Comment on above: Order Comment: No: D o not add to previous draw Performed By: #### 5 0608 ####[facility] [place], [place] [address], [place] [address], [place] MCHC (RBC) [Mass/Vol] 33.9 g/dL Normal 32.0-35.0 [facility] Comment on above: Order Comment: No: D o not add to previous draw Performed By: #### 5 0608 ####[facility] [facility] [place] [address], [facility] MCV (RBC) [Entitic vol] 95.9 fL Normal 82.0-98.0 [facility] Comment on above: Order Comment: No: D o not add to previous draw Performed By: #### 5 0608 ####[facility] [place] [address], [facility] MCV (RBC) [Entitic vol] 95.2 fL Normal 82.0-98.0 [facility] Comment on above: Order Comment: No: D o not add to previous draw Performed By: #### 5 0608 ####[facility] Nucleated RBC/100 WBC (Bld) [Ratio] 0 % Normal 0-0 [facility] Comment on above: Order Comment: No: D o not add to previous draw Performed By: #### 5 0608 ####[facility] [facility].[address] Nucleated RBC/100 WBC (Bld) [Ratio] 0 % Normal 0-0 [facility] Comment on above: Order Comment: No: D o not add to previous draw Performed By: #### 5 0608 ####[facility] [place] [address].[place] [address], [facility] PLAT CNT 156 10*3/uL Normal 150-400 [facility] Comment on above: Order Comment: No: D o not add to previous draw Performed By: #### 5 0608 ####[facility] [facility] [place] [address], [facility] PLAT CNT 153 10*3/uL Normal 150-400 [facility] Comment on above: Order Comment: No: D o not add to previous draw Performed By: #### 5 0608 ####[facility] [address], [facility] RBC (Bld) [#/Vol] 3.89 10*6/uL Low 4.20-5.70 [facility] Comment on above: Order Comment: No: D o not add to previous draw Performed By: #### 5 0608 ####[facility] [facility] [place] [address], [facility] RBC (Bld) [#/Vol] 3.78 10*6/uL Low 4.20-5.70 [facility] Comment on above: Order Comment: No: D o not add to previous draw Performed By: #### 5 0608 ####[facility] [place] [address], [facility] WBC (Bld) [#/Vol] 24.62 10*3/uL High 4.00-10.60 [facility] Comment on above: Order Comment: No: D o not add to previous draw Performed By: #### 5 0608 ####[facility] [facility] [place] [address], [facility] WBC (Bld) [#/Vol] 22.45 10*3/uL High 4.00-10.60 [facility] Comment on above: Order Comment: No: D o not add to previous draw Performed By: #### 5 0608 ####[facility] [facility] [place] [address], [facility] LACTATE BLOODon 08-14-2021 Lactate [Moles/Vol] 1.2 mmol/L Normal .5-2.2 [facility] Comment on above: Order Comment: No: D o not add to previous draw Performed By: #### 1 0054 ####[facility] [place] [address], [place] MAGNESIUM BLOODon 08-14-2021 Magnesium [Mass/Vol] 2.3 mg/dL Normal 1.9-2.7 [facility] Comment on above: Order Comment: No: D o not add to previous draw Performed By: #### 0 0071, 87732 ####[facility] [place] [address], [place] Magnesium [Mass/Vol] 2.4 mg/dL Normal 1.9-2.7 [facility] Comment on above: Order Comment: No: D o not add to previous draw Performed By: #### 4 1000, 86412, 64802 ####[facility] [facility] [place] [address], [facility] Operative Reporton 1 Operative Report Normal [facility] PHOSPHORUS BLOODon 1 Phosphate [Mass/Vol] 1.8 mg/dL Low 2.5-5.0 [facility] Comment on above: Order Comment: No: D o not add to previous draw Performed By: #### 4 1000, 68382, 85702 ####[facility] [facility] [address], [place] POC GLUCOSE LABon 08-14-2021 Glucose [Mass/Vol] 153 mg/dL High 70-100 [facility] Comment on above: Performed By: #### 8 5499 ####[facility] [facility] [place] [address], [place] Glucose [Mass/Vol] 157 mg/dL High 70-100 [facility] Comment on above: Performed By: #### 8 5499 ####[facility] [place] [address], [place] Glucose [Mass/Vol] 145 mg/dL High 70-100 [facility] Comment on above: Performed By: #### 8 5499 ####[facility] [place] [address], [place] Glucose [Mass/Vol] 168 mg/dL High 70-100 [facility] Comment on above: Performed By: #### 8 5499 ####[facility] [place] [address], [place] Glucose [Mass/Vol] 156 mg/dL High 70-100 [facility] Comment on above: Performed By: #### 8 5499 ####[facility] [place] [address], [place] BASIC METABOLIC PANELon 12- Calcium [Mass/Vol] 8.2 mg/dL Low 8.6-10.3 [facility] Comment on above: Order Comment: No: D o not add to previous draw Performed By: #### 1 0, 63004, 13063 ####[facility] [place] [address], [place] Chloride [Moles/Vol] 104 mmol/L Normal 98-107 [facility] Comment on above: Order Comment: No: D o not add to previous draw Performed By: #### 1 0, 87107, 53476 ####[facility] [place] [address], [place] CO2 [Moles/Vol] 27 mmol/L Normal 21-31 [facility] Comment on above: Order Comment: No: D o not add to previous draw Performed By: #### 1 0070, 21075, 02024 ####[facility] [place] [address], [place] Creatinine [Mass/Vol] 0.87 mg/dL Normal 0.70-1.30 [facility] Comment on above: Order Comment: No: D o not add to previous draw Performed By: #### 1 0070, 31929, 80930 ####[facility] [place] [address], [place] GFR/1.73 sq M.predicted among blacks MDRD (S/P/Bld) [Vol rate/Area] mL/min/{1.73_m2} Normal >60 [facility] Comment on above: Order Comment: No: D o not add to previous draw Result Comment: Calc ulation may not be valid for patients over 70 years Performed By: #### 1 0070, 27948, 24126 ####[facility] [place] [address], [place] GFR/1.73 sq M.predicted among non-blacks MDRD (S/P/Bld) [Vol rate/Area] mL/min/{1.73_m2} Normal >60 [facility] Comment on above: Order Comment: No: D o not add to previous draw Result Comment: Calc ulation may not be valid for patients over 70 years Performed By: #### 1 0, 93284, 26983 ####[facility] [place] [address], [place] Glucose [Mass/Vol] 172 mg/dL High 70-100 [facility] Comment on above: Order Comment: No: D o not add to previous draw Performed By: #### 1 0, 41868, 24342 ####[facility] [place] [address], [place] Potassium [Moles/Vol] 4.0 mmol/L Normal 3.5-5.1 [facility] Comment on above: Order Comment: No: D o not add to previous draw Performed By: #### 1 0, 95080, 23707 ####[facility] [place] [address], [place] Sodium [Moles/Vol] 137 mmol/L Normal 136-145 [facility] Comment on above: Order Comment: No: D o not add to previous draw Performed By: #### 1 0070, 11126, 64816 ####[facility] [facility].[address] Urea nitrogen [Mass/Vol] 10 mg/dL Normal 7-25 [facility] Comment on above: Order Comment: No: D o not add to previous draw Performed By: #### 1 0070, 40625, 74529 ####[facility] [facility].[address] CBC COMPLETE BLOOD COUNTon 10-14-2020 Erythrocyte distribution width (RBC) [Ratio] 14.5 % Normal 11.5-15.0 [facility] Comment on above: Order Comment: No: D o not add to previous draw Performed By: #### 5 0608 ####[place] [address] Hematocrit (Bld) [Volume fraction] 38.5 % Low 39.0-50.0 [facility] Comment on above: Order Comment: No: D o not add to previous draw Performed By: #### 5 0608 ####[place] [address] [facility].[address] Hemoglobin (Bld) [Mass/Vol] 12.5 g/dL Low 13.0-17.0 [facility] Comment on above: Order Comment: No: D o not add to previous draw Performed By: #### 5 0608 ####[facility] [facility].[address] MCH (RBC) [Entitic mass] 31.7 pg Normal 27.0-33.0 [facility] Comment on above: Order Comment: No: D o not add to previous draw Performed By: #### 5 0608 ####[facility] [place] [address].[place] [address], [facility] MCHC (RBC) [Mass/Vol] 32.5 g/dL Normal 32.0-35.0 [facility] Comment on above: Order Comment: No: D o not add to previous draw Performed By: #### 5 0608 ####[facility] [place] [address], [facility] MCV (RBC) [Entitic vol] 97.7 fL Normal 82.0-98.0 [facility] Comment on above: Order Comment: No: D o not add to previous draw Performed By: #### 5 0608 ####[facility] [facility] [place] [address], [facility] Nucleated RBC/100 WBC (Bld) [Ratio] 0 % Normal 0-0 [facility] Comment on above: Order Comment: No: D o not add to previous draw Performed By: #### 5 0608 ####[facility] [facility] [place] [address], [facility] PLAT CNT 160 10*3/uL Normal 150-400 [facility] Comment on above: Order Comment: No: D o not add to previous draw Performed By: #### 5 0608 ####[address] [place] [address], [facility] RBC (Bld) [#/Vol] 3.94 10*6/uL Low 4.20-5.70 [facility] Comment on above: Order Comment: No: D o not add to previous draw Performed By: #### 5 0608 ####[facility] [facility] [place] [address], [facility] WBC (Bld) [#/Vol] 26.01 10*3/uL High 4.00-10.60 [facility] Comment on above: Order Comment: No: D o not add to previous draw Performed By: #### 5 0608 ####[facility] [facility] [place] [address], [facility] MAGNESIUM BLOODon 08-13-2021 Magnesium [Mass/Vol] 1.6 mg/dL Low 1.9-2.7 [facility] Comment on above: Order Comment: No: D o not add to previous draw Performed By: #### 1 0070, 84484, 93481 ####[facility] [place] [address], [place] PHOSPHORUS BLOODon Phosphate [Mass/Vol] 2.3 mg/dL Low 2.5-5.0 [facility] Comment on above: Order Comment: No: D o not add to previous draw Performed By: #### 1 0070, 17903, 55084 ####[facility] [place] [address], [place] POC GLUCOSE LABon 08-13-2021 Glucose [Mass/Vol] 149 mg/dL High 70-100 [facility] Comment on above: Performed By: #### 8 5499 ####[facility] [place] [address], [place] Glucose [Mass/Vol] 168 mg/dL High 70-100 [facility] Comment on above: Performed By: #### 8 5499 ####[facility] [place] [address], [place] Glucose [Mass/Vol] 155 mg/dL High 70-100 [facility] Comment on above: Performed By: #### 8 5499 ####[facility] [place] [address], [place] Glucose [Mass/Vol] 172 mg/dL High 70-100 [facility] Comment on above: Performed By: #### 8 5499 ####[facility] [place] [address], [place] Glucose [Mass/Vol] 174 mg/dL High 70-100 [facility] Comment on above: Performed By: #### 8 5499 ####[facility] [place] [address], [facility] Glucose [Mass/Vol] 159 mg/dL High 70-100 [facility] Comment on above: Performed By: #### 8 5499 ####[facility] [facility] [address], [facility] BASIC METABOLIC PANELon 12-1 Calcium [Mass/Vol] 8.5 mg/dL Low 8.6-10.3 [facility] Comment on above: Order Comment: No: D o not add to previous draw Performed By: #### 0 0071, 51899, 25399 ####[facility] [facility] [address], [facility] Chloride [Moles/Vol] 103 mmol/L Normal 98-107 [facility] Comment on above: Order Comment: No: D o not add to previous draw Performed By: #### 0 0071, 48059, 95699 ####[facility] [facility] [address], [facility] CO2 [Moles/Vol] 26 mmol/L Normal 21-31 The [facility] Comment on above: Order Comment: No: D o not add to previous draw Performed By: #### 0 0071, 26660, 09470 ####[place] [address] [facility] [address], [facility] Creatinine [Mass/Vol] 0.79 mg/dL Normal 0.70-1.30 [facility] Comment on above: Order Comment: No: D o not add to previous draw Performed By: #### 0 0071, 30138, 92235 ####[place] [address] [facility] [address], [facility] GFR/1.73 sq M.predicted among blacks MDRD (S/P/Bld) [Vol rate/Area] mL/min/{1.73_m2} Normal >60 [facility] Comment on above: Order Comment: No: D o not add to previous draw Result Comment: Calc ulation may not be valid for patients over 70 years Performed By: #### 0 0071, 23689, 51029 ####[facility] [facility] [address], [facility] GFR/1.73 sq M.predicted among non-blacks MDRD (S/P/Bld) [Vol rate/Area] mL/min/{1.73_m2} Normal >60 [facility] Comment on above: Order Comment: No: D o not add to previous draw Result Comment: Calc ulation may not be valid for patients over 70 years Performed By: #### 0 0071, 94640, 95614 ####[facility] [facility] [address], [facility] Glucose [Mass/Vol] 162 mg/dL High 70-100 [facility] Comment on above: Order Comment: No: D o not add to previous draw Performed By: #### 0 0071, 32327, 11986 ####[facility] [facility] [address], [facility] Potassium [Moles/Vol] 3.7 mmol/L Normal 3.5-5.1 [facility] Comment on above: Order Comment: No: D o not add to previous draw Performed By: #### 0 0071, 93851, 47883 ####[facility] [place] [address], [facility] Sodium [Moles/Vol] 137 mmol/L Normal 136-145 [facility] Comment on above: Order Comment: No: D o not add to previous draw Performed By: #### 0 0071, 39275, 22012 ####[facility] [facility] [address], [place] Urea nitrogen [Mass/Vol] 15 mg/dL Normal 7-25 [facility] Comment on above: Order Comment: No: D o not add to previous draw Performed By: #### 0 0071, 61712, 55980 ####[facility] CBC COMPLETE BLOOD COUNTon 10-13-2020 Erythrocyte distribution width (RBC) [Ratio] 14.5 % Normal 11.5-15.0 [facility] Comment on above: Order Comment: No: D o not add to previous draw Performed By: #### 5 0608 ####[facility] Hematocrit (Bld) [Volume fraction] 42.4 % Normal 39.0-50.0 [facility] Comment on above: Order Comment: No: D o not add to previous draw Performed By: #### 5 0608 ####[facility] Hemoglobin (Bld) [Mass/Vol] 13.6 g/dL Normal 13.0-17.0 [facility] Comment on above: Order Comment: No: D o not add to previous draw Performed By: #### 5 0608 ####[place] [address] MCH (RBC) [Entitic mass] 31.6 pg Normal 27.0-33.0 [facility] Comment on above: Order Comment: No: D o not add to previous draw Performed By: #### 5 0608 ####[facility] [facility].[address] MCHC (RBC) [Mass/Vol] 32.1 g/dL Normal 32.0-35.0 [facility] Comment on above: Order Comment: No: D o not add to previous draw Performed By: #### 5 0608 ####[facility] [place] [address] MCV (RBC) [Entitic vol] 98.4 fL High 82.0-98.0 [facility] Comment on above: Order Comment: No: D o not add to previous draw Performed By: #### 5 0608 ####[facility] [facility] [place] [address], [facility] Nucleated RBC/100 WBC (Bld) [Ratio] 0 % Normal 0-0 [facility] Comment on above: Order Comment: No: D o not add to previous draw Performed By: #### 5 0608 ####[facility] [facility] [place] [address], [facility] PLAT CNT 203 10*3/uL Normal 150-400 [facility] Comment on above: Order Comment: No: D o not add to previous draw Performed By: #### 5 0608 ####[facility] [facility] [place] [address], [facility] RBC (Bld) [#/Vol] 4.31 10*6/uL Normal 4.20-5.70 [facility] Comment on above: Order Comment: No: D o not add to previous draw Performed By: #### 5 0608 ####[facility] [facility] [place] [address], [facility] WBC (Bld) [#/Vol] 33.31 10*3/uL High 4.00-10.60 [facility] Comment on above: Order Comment: No: D o not add to previous draw Performed By: #### 5 0608 ####[facility] [facility] [place] [address], [facility] MAGNESIUM BLOODon 08-12-2021 Magnesium [Mass/Vol] 1.7 mg/dL Low 1.9-2.7 [facility] Comment on above: Order Comment: No: D o not add to previous draw Performed By: #### 0 0071, 06972, 07732 ####[facility] [facility] [place] [address], [facility] PHOSPHORUS BLOODon Phosphate [Mass/Vol] 3.3 mg/dL Normal 2.5-5.0 [facility] Comment on above: Order Comment: No: D o not add to previous draw Performed By: #### 0 0071, 50162, 22673 ####[facility] [place] [address], [place] POC GLUCOSE LABon 08-12-2021 Glucose [Mass/Vol] 171 mg/dL High 70-100 [facility] Comment on above: Performed By: #### 8 5499 ####[facility] [place] [address], [place] Glucose [Mass/Vol] 175 mg/dL High 70-100 [facility] Comment on above: Performed By: #### 8 5499 ####[facility] [place] [address], [place] Glucose [Mass/Vol] 153 mg/dL High 70-100 [facility] Comment on above: Performed By: #### 8 5499 ####[facility] [place] [address], [place] Glucose [Mass/Vol] 165 mg/dL High 70-100 [facility] Comment on above: Performed By: #### 8 5499 ####[facility] [place] [address], [place] Glucose [Mass/Vol] 176 mg/dL High 70-100 [facility] Comment on above: Performed By: #### 8 5499 ####[facility] [place] [address], [place] POC GLUCOSE LABon 08-11-2021 Glucose [Mass/Vol] 106 mg/dL High 70-100 [facility] Comment on above: Performed By: #### 8 5499 ####[facility] [place] [address], [place] Glucose [Mass/Vol] 265 mg/dL High 70-100 [facility] Comment on above: Performed By: #### 8 5499 ####[facility] [place] [address], [facility] Glucose [Mass/Vol] 211 mg/dL High 70-100 [facility] Comment on above: Performed By: #### 8 5499 ####[facility] [facility] [address], [facility] BASIC METABOLIC PANELon 11-3 0-2020 Calcium [Mass/Vol] 9.1 mg/dL Normal 8.6-10.3 [facility] Comment on above: Performed By: #### 0 0071 ####[facility] [place] [address], [facility] Chloride [Moles/Vol] 101 mmol/L Normal 98-107 [facility] Comment on above: Performed By: #### 0 0071 ####[facility] [place] [address], [facility] CO2 [Moles/Vol] 27 mmol/L Normal 21-31 [facility] Comment on above: Performed By: #### 0 0071 ####[facility] [place] [address], [facility] Creatinine [Mass/Vol] 0.92 mg/dL Normal 0.70-1.30 [facility] Comment on above: Performed By: #### 0 0071 ####[facility] [facility] [place] [address], [facility] GFR/1.73 sq M.predicted among blacks MDRD (S/P/Bld) [Vol rate/Area] mL/min/{1.73_m2} Normal >60 [facility] Comment on above: Result Comment: Calc ulation may not be valid for patients over 70 years Performed By: #### 0 0071 ####[facility] [facility] [place] [address], [facility] GFR/1.73 sq M.predicted among non-blacks MDRD (S/P/Bld) [Vol rate/Area] mL/min/{1.73_m2} Normal >60 The [facility] Comment on above: Result Comment: Calc ulation may not be valid for patients over 70 years Performed By: #### 0 0071 ####[facility] [facility] [place] [address], [facility] Glucose [Mass/Vol] 104 mg/dL High 70-100 [facility] Comment on above: Performed By: #### 0 0071 ####[facility] [facility] [place] [address], [facility] Potassium [Moles/Vol] 3.5 mmol/L Normal 3.5-5.1 The [facility] Comment on above: Performed By: #### 0 0071 ####[facility] [facility] [place] [address], [facility] Sodium [Moles/Vol] 136 mmol/L Normal 136-145 [facility] Comment on above: Performed By: #### 0 0071 ####[facility] [facility] [place] [address], [facility] Urea nitrogen [Mass/Vol] 23 mg/dL Normal 7-25 The [facility] Comment on above: Performed By: #### 0 0071 ####[facility] [facility] [place] [address], [facility] CBC W/DIFFon 08-01-2021 ABS IMM GRANS 0.1 10*3/uL Normal 0.0-0.2 The [facility] Comment on above: Performed By: #### 5 0103 ####[facility] [facility] [place] [address], [facility] ABS NEUTROPHILS 4.9 10*3/uL Normal 1.6-7.6 [facility] Comment on above: Performed By: #### 5 0103 ####[facility] [place] [address], [facility] Basophils (Bld) [#/Vol] 0.1 10*3/uL Normal 0.0-0.2 The [facility] Comment on above: Performed By: #### 5 0103 ####[facility] [place] [address], [facility] Basophils/100 WBC (Bld) 0.3 % Normal 0.0-1.0 The [facility] Comment on above: Performed By: #### 5 0103 ####[facility] [facility] [place] [address], [facility] Eosinophils (Bld) [#/Vol] 0.1 10*3/uL Normal 0.0-0.5 The [facility] Comment on above: Performed By: #### 5 0103 ####[facility] [facility] [place] [address], [facility] Eosinophils/100 WBC (Bld) 0.2 % Normal 0.0-6.0 [facility] Comment on above: Performed By: #### 5 0103 ####[facility] [facility] [place] [address], [facility] Erythrocyte distribution width (RBC) [Ratio] 14.6 % Normal 11.5-15.0 [facility] Comment on above: Performed By: #### 5 3 ####[facility] [facility] [place] [address], [facility] Hematocrit (Bld) [Volume fraction] 44.2 % Normal 39.0-50.0 [facility] Comment on above: Performed By: #### 3 ####[facility] [place] [address], [facility] Hemoglobin (Bld) [Mass/Vol] 14.3 g/dL Normal 13.0-17.0 [facility] Comment on above: Performed By: #### 5 0103 ####[facility] IMMATURE GRANS 0.3 % Normal 0.0-1.0 The [facility] Comment on above: Performed By: #### 5 0103 ####[facility] Lymphocytes (Bld) [#/Vol] 20.8 10*3/uL High 1.2-4.0 The [facility] Comment on above: Performed By: #### 5 0103 ####[address] Lymphocytes/100 WBC (Bld) 78.7 % High 20.0-45.0 [facility] Comment on above: Performed By: #### 5 0103 ####[facility] MCH (RBC) [Entitic mass] 31.8 pg Normal 27.0-33.0 [facility] Comment on above: Performed By: #### 5 0103 ####[facility] MCHC (RBC) [Mass/Vol] 32.4 g/dL Normal 32.0-35.0 [facility] Comment on above: Performed By: #### 5 0103 ####[facility] [place] [address], [facility] MCV (RBC) [Entitic vol] 98.4 fL High 82.0-98.0 [facility] Comment on above: Performed By: #### 5 3 ####[place] [address], [facility] Monocytes (Bld) [#/Vol] 0.6 10*3/uL Normal 0.1-1.0 The [facility] Comment on above: Performed By: #### 5 0103 ####[facility] [facility] [place] [address], [facility] MONOS 2.2 % Low 5.0-12.0 The [facility] Comment on above: Performed By: #### 5 3 ####[facility] [facility].[address] Neutrophils/100 WBC (Bld) 18.3 % Low 40.0-72.0 The [facility] Comment on above: Performed By: #### 5 3 ####[facility] [facility].[address] Nucleated RBC/100 WBC (Bld) [Ratio] 0 % Normal 0-0 [facility] Comment on above: Performed By: #### 5 102 ####[facility] [facility] [place] [address], [facility] PLAT CNT 174 10*3/uL Normal 150-400 [facility] Comment on above: Performed By: #### 5 102 ####[facility] [facility] [place] [address], [facility] RBC (Bld) [#/Vol] 4.49 10*6/uL Normal 4.20-5.70 The [facility] Comment on above: Performed By: #### 3 ####[facility] [facility] [place] [address], [facility] SMUDGE CELLS MANY Normal The [facility] Comment on above: Performed By: #### 5 102 ####[facility] [facility] [place] [address], [facility] WBC (Bld) [#/Vol] 26.44 10*3/uL High 4.00-10.60 The [facility] Comment on above: Performed By: #### 5 0103 ####[facility] PROTHROMBIN TIMEon 1 INR Coag (PPP) [Relative time] 0.99 {INR} Normal 0.91-1.16 The [facility] Comment on above: Result Comment: ACCC P RECOMMENDED INR FOR WARFARIN THERAPY CONDITION INRPROPHYLAXIS OF VENOUS THROMBOSIS 2-3(HIGH-RISK SURGERY)TREATMENT OF VENOUS THROMBOSIS 2-3TREATMENT OF PULMONARY EMBOLISM 2-3PREVENTION OF SYSTEMIC EMBOLISM: 2-3 ACUTE MYOCARDIAL INFARCTION TISSUE HEART VALVES VALVULAR HEART DISEASE ATRIAL FIBRILLATION RECURRENT SYSTEMIC EMBOLISMMECHANICAL HEART VALVE 2.5-3.5 FROM: ORAL ANTICOAGULANTS. MECHANISM OF ACTION, CLINICALEFFECTIVENESS, AND OPTIMAL THERAPEUTIC RANGE. [id number]. Performed By: #### 5 6101 ####[facility] PT Coag (PPP) [Time] 13.1 s Normal 12.3-14.8 The [facility] Comment on above: Result Comment: ALL RESULTS MUST BE INTERPRETED WITH RESPECT TO BLOOD DRAWING ARTIFACTOR DILUTION ERROR OF ANTICOAGULANT AT THE TIME OF SAMPLING. Performed By: #### 5 6101 ####[facility] Operative Reporton 1 Operative Report Normal The [facility] POC GLUCOSE LABon 06-21-2021 Glucose [Mass/Vol] 139 mg/dL High 70-100 [facility] Comment on above: Performed By: #### 8 5499 ####[facility] [place] [address], [place] POC GLUCOSE LABon 11-09-2020 Glucose [Mass/Vol] 127 mg/dL High 70-100 [facility] Comment on above: Performed By: #### 8 5499 ####[facility] [place] [address], [place] Glucose [Mass/Vol] 101 mg/dL High 70-100 [facility] Comment on above: Performed By: #### 8 5499 ####[facility] [place] [address], [place] POC GLUCOSE LABon 11-08-2020 Glucose [Mass/Vol] 132 mg/dL High 70-100 [facility] Comment on above: Performed By: #### 8 5499 ####[facility] [place] [address], [place] Glucose [Mass/Vol] 186 mg/dL High 70-100 [facility] Comment on above: Performed By: #### 8 5499 ####[facility] [place] [address], [place] Glucose [Mass/Vol] 79 mg/dL Normal 70-100 [facility] Comment on above: Performed By: #### 8 5499 ####[facility] [place] [address], [place] Glucose [Mass/Vol] 206 mg/dL High 70-100 [facility] Comment on above: Performed By: #### 8 5499 ####[facility] [place] [address], [place] BASIC METABOLIC PANELon 03-0 Calcium [Mass/Vol] 8.4 mg/dL Low 8.6-10.3 [facility] Comment on above: Order Comment: No: D o not add to previous draw Performed By: #### 1 69, [id number] ####[facility] [place] [address], [facility] Chloride [Moles/Vol] 104 mmol/L Normal 98-107 The [facility] Comment on above: Order Comment: No: D o not add to previous draw Performed By: #### 1 69, [id number] ####[facility] [place] [address], [facility] CO2 [Moles/Vol] 29 mmol/L Normal 21-31 [facility] Comment on above: Order Comment: No: D o not add to previous draw Performed By: #### 1 69, [id number] ####[facility] [place] [address], [facility] Creatinine [Mass/Vol] 0.92 mg/dL Normal 0.70-1.30 The [facility] Comment on above: Order Comment: No: D o not add to previous draw Performed By: #### 1 69, 10875 ####[facility] [place] [address], [facility] GFR/1.73 sq M.predicted among blacks MDRD (S/P/Bld) [Vol rate/Area] mL/min/{1.73_m2} Normal >60 The [facility] Comment on above: Order Comment: No: D o not add to previous draw Result Comment: Calc ulation may not be valid for patients over 70 years Performed By: #### 1 69, [id number] ####[facility] [place] [address], [facility] GFR/1.73 sq M.predicted among non-blacks MDRD (S/P/Bld) [Vol rate/Area] mL/min/{1.73_m2} Normal >60 The [facility] Comment on above: Order Comment: No: D o not add to previous draw Result Comment: Calc ulation may not be valid for patients over 70 years Performed By: #### 1 69, 64179 ####[facility] [place] [address], [facility] Glucose [Mass/Vol] 92 mg/dL Normal 70-100 [facility] Comment on above: Order Comment: No: D o not add to previous draw Performed By: #### 1 69, 17210 ####[facility] [facility] [place] [address], [facility] Potassium [Moles/Vol] 3.9 mmol/L Normal 3.5-5.1 [facility] Comment on above: Order Comment: No: D o not add to previous draw Performed By: #### 1 69, 62741 ####[facility] [facility] [place] [address], [facility] Sodium [Moles/Vol] 138 mmol/L Normal 136-145 [facility] Comment on above: Order Comment: No: D o not add to previous draw Performed By: #### 1 69, 49193 ####[facility] [facility] [place] [address], [facility] Urea nitrogen [Mass/Vol] 13 mg/dL Normal 7-25 [facility] Comment on above: Order Comment: No: D o not add to previous draw Performed By: #### 1 69, [id number] ####[facility] [facility] [place] [address], [facility] CBC W/DIFFon 11-07-2020 ABS IMM GRANS 0.1 10*3/uL Normal 0.0-0.2 The [facility] Comment on above: Order Comment: No: D o not add to previous draw Performed By: #### 5 0103 ####[facility] [place] [address], [facility] ABS NEUTROPHILS 3.3 10*3/uL Normal 1.6-7.6 The [facility] Comment on above: Order Comment: No: D o not add to previous draw Performed By: #### 5 0103 ####[facility] [place] [address], [facility] Basophils (Bld) [#/Vol] 0.1 10*3/uL Normal 0.0-0.2 The [facility] Comment on above: Order Comment: No: D o not add to previous draw Performed By: #### 5 0103 ####[facility] [place] [address], [facility] Basophils/100 WBC (Bld) 0.3 % Normal 0.0-1.0 The [facility] Comment on above: Order Comment: No: D o not add to previous draw Performed By: #### 5 0103 ####[facility] [place] [address], [facility] Eosinophils (Bld) [#/Vol] 0.2 10*3/uL Normal 0.0-0.5 [facility] Comment on above: Order Comment: No: D o not add to previous draw Performed By: #### 5 0103 ####[facility] [place] [address], [facility] Eosinophils/100 WBC (Bld) 0.9 % Normal 0.0-6.0 The [facility] Comment on above: Order Comment: No: D o not add to previous draw Performed By: #### 5 0103 ####[facility] [place] [address], [facility] Erythrocyte distribution width (RBC) [Ratio] 14.9 % Normal 11.5-15.0 The [facility] Comment on above: Order Comment: No: D o not add to previous draw Performed By: #### 5 0103 ####[facility] Hematocrit (Bld) [Volume fraction] 31.8 % Low 39.0-50.0 The [facility] Comment on above: Order Comment: No: D o not add to previous draw Performed By: #### 5 0103 ####[facility] [place] [address], [facility] Hemoglobin (Bld) [Mass/Vol] 10.0 g/dL Low 13.0-17.0 The [facility] Comment on above: Order Comment: No: D o not add to previous draw Performed By: #### 5 0103 ####[address] IMMATURE GRANS 0.5 % Normal 0.0-1.0 The [facility] Comment on above: Order Comment: No: D o not add to previous draw Performed By: #### 5 0103 ####[address] Lymphocytes (Bld) [#/Vol] 20.2 10*3/uL High 1.2-4.0 The [facility] Comment on above: Order Comment: No: D o not add to previous draw Performed By: #### 5 3 ####[place] [id number] [address] Lymphocytes/100 WBC (Bld) 83.1 % High 20.0-45.0 The [facility] Comment on above: Order Comment: No: D o not add to previous draw Performed By: #### 5 0103 ####[place] [address], [facility] MCH (RBC) [Entitic mass] 31.6 pg Normal 27.0-33.0 The [facility] Comment on above: Order Comment: No: D o not add to previous draw Performed By: #### 5 3 ####[address] [place] [address], [place] MCHC (RBC) [Mass/Vol] 31.4 g/dL Low 32.0-35.0 The [facility] Comment on above: Order Comment: No: D o not add to previous draw Performed By: #### 5 0103 ####[facility] [facility] [place] [address], [facility] MCV (RBC) [Entitic vol] 100.6 fL High 82.0-98.0 [facility] Comment on above: Order Comment: No: D o not add to previous draw Performed By: #### 5 0103 ####[place] [address], [facility] Monocytes (Bld) [#/Vol] 0.4 10*3/uL Normal 0.1-1.0 The [facility] Comment on above: Order Comment: No: D o not add to previous draw Performed By: #### 5 0103 ####[facility] [place] [address].[address] MONOS 1.6 % Low 5.0-12.0 The [facility] Comment on above: Order Comment: No: D o not add to previous draw Performed By: #### 5 0103 ####[address] Neutrophils/100 WBC (Bld) 13.6 % Low 40.0-72.0 [facility] Comment on above: Order Comment: No: D o not add to previous draw Performed By: #### 5 0103 ####[address] [place] [address], [facility] Nucleated RBC/100 WBC (Bld) [Ratio] 0 % Normal 0-0 [facility] Comment on above: Order Comment: No: D o not add to previous draw Performed By: #### 5 0103 ####[place] [id number], [place] PLAT CNT 225 10*3/uL Normal 150-400 [facility] Comment on above: Order Comment: No: D o not add to previous draw Performed By: #### 5 0103 ####[facility] [place] [address], [facility] RBC (Bld) [#/Vol] 3.16 10*6/uL Low 4.20-5.70 The [facility] Comment on above: Order Comment: No: D o not add to previous draw Performed By: #### 5 0103 ####[facility] SMUDGE CELLS MANY PRESENT Normal The [facility] Comment on above: Order Comment: No: D o not add to previous draw Result Comment: This result added by SUKHJINDER on 11/07/2020 09:18.AUTO DIF Performed By: #### 5 0103 ####[facility] [facility].[address] WBC (Bld) [#/Vol] 24.33 10*3/uL High 4.00-10.60 The [facility] Comment on above: Order Comment: No: D o not add to previous draw Performed By: #### 5 0103 ####[facility] [facility].[address] MAGNESIUM BLOODon 11-07-2020 Magnesium [Mass/Vol] 2.0 mg/dL Normal 1.9-2.7 The [facility] Comment on above: Order Comment: No: D o not add to previous draw Performed By: #### 1 0070, [id number] ####[facility] [facility].[address] POC GLUCOSE LABon 11-07-2020 Glucose [Mass/Vol] 100 mg/dL Normal 70-100 [facility] Comment on above: Performed By: #### 8 5499 ####[facility] [place] [address], [place] Glucose [Mass/Vol] 143 mg/dL High 70-100 [facility] Comment on above: Performed By: #### 8 5499 ####[facility] [place] [address], [place] Glucose [Mass/Vol] 128 mg/dL High 70-100 [facility] Comment on above: Performed By: #### 8 5499 ####[facility] [place] [address], [place] Glucose [Mass/Vol] 164 mg/dL High 70-100 [facility] Comment on above: Performed By: #### 8 5499 ####[facility] [place] [address], [place] BASIC METABOLIC PANELon 03-0 Calcium [Mass/Vol] 8.2 mg/dL Low 8.6-10.3 [facility] Comment on above: Order Comment: No: D o not add to previous draw Performed By: #### 0 0071, [id number] ####[facility] [place] [address], [place] Chloride [Moles/Vol] 105 mmol/L Normal 98-107 The [facility] Comment on above: Order Comment: No: D o not add to previous draw Performed By: #### 0 0071, 22114 ####[facility] [place] [address], [place] CO2 [Moles/Vol] 28 mmol/L Normal 21-31 The [facility] Comment on above: Order Comment: No: D o not add to previous draw Performed By: #### 0 0071, [id number] ####[facility] [place] [address], [place] Creatinine [Mass/Vol] 0.86 mg/dL Normal 0.70-1.30 The [facility] Comment on above: Order Comment: No: D o not add to previous draw Performed By: #### 0 0071, 86791 ####[facility] [place] [address], [facility] GFR/1.73 sq M.predicted among blacks MDRD (S/P/Bld) [Vol rate/Area] mL/min/{1.73_m2} Normal >60 The [facility] Comment on above: Order Comment: No: D o not add to previous draw Result Comment: Calc ulation may not be valid for patients over 70 years Performed By: #### 0 0071, 20459 ####[facility] [facility] [place] [address], [facility] GFR/1.73 sq M.predicted among non-blacks MDRD (S/P/Bld) [Vol rate/Area] mL/min/{1.73_m2} Normal >60 The [facility] Comment on above: Order Comment: No: D o not add to previous draw Result Comment: Calc ulation may not be valid for patients over 70 years Performed By: #### 0 0071, 87857 ####[facility] [facility] [place] [address], [facility] Glucose [Mass/Vol] 115 mg/dL High 70-100 [facility] Comment on above: Order Comment: No: D o not add to previous draw Performed By: #### 0 0071, 56107 ####[facility] [place] [address], [place] Potassium [Moles/Vol] 4.2 mmol/L Normal 3.5-5.1 The [facility] Comment on above: Order Comment: No: D o not add to previous draw Performed By: #### 0 0071, 08745 ####[facility] [place] [address], [place] Sodium [Moles/Vol] 137 mmol/L Normal 136-145 [facility] Comment on above: Order Comment: No: D o not add to previous draw Performed By: #### 0 0071, [id number] ####[facility] [facility].[address] Urea nitrogen [Mass/Vol] 10 mg/dL Normal 7-25 The [facility] Comment on above: Order Comment: No: D o not add to previous draw Performed By: #### 0 0071, [id number] ####[facility] [facility] [place] [address], [facility] CBC W/DIFFon 11-06-2020 ABS IMM GRANS 0.2 10*3/uL Normal 0.0-0.2 The [facility] Comment on above: Order Comment: No: D o not add to previous draw Performed By: #### 5 0103 ####[facility] ABS NEUTROPHILS 3.8 10*3/uL Normal 1.6-7.6 The [facility] Comment on above: Order Comment: No: D o not add to previous draw Performed By: #### 5 0103 ####[facility] [facility] [place] [address], [facility] Basophils (Bld) [#/Vol] 0.1 10*3/uL Normal 0.0-0.2 The [facility] Comment on above: Order Comment: No: D o not add to previous draw Performed By: #### 5 0103 ####[facility] [facility] [place] [address], [facility] Basophils/100 WBC (Bld) 0.3 % Normal 0.0-1.0 The [facility] Comment on above: Order Comment: No: D o not add to previous draw Performed By: #### 5 3 ####[facility] [place] [address], [facility] Eosinophils (Bld) [#/Vol] 0.2 10*3/uL Normal 0.0-0.5 The [facility] Comment on above: Order Comment: No: D o not add to previous draw Performed By: #### 5 0103 ####[facility] [facility] Eosinophils/100 WBC (Bld) 0.7 % Normal 0.0-6.0 The [facility] Comment on above: Order Comment: No: D o not add to previous draw Performed By: #### 5 0103 ####[facility] Erythrocyte distribution width (RBC) [Ratio] 14.9 % Normal 11.5-15.0 The [facility] Comment on above: Order Comment: No: D o not add to previous draw Performed By: #### 5 0103 ####[facility] [facility].[address] [address] Hematocrit (Bld) [Volume fraction] 32.5 % Low 39.0-50.0 The [facility] Comment on above: Order Comment: No: D o not add to previous draw Performed By: #### 5 0103 ####[facility] Hemoglobin (Bld) [Mass/Vol] 10.6 g/dL Low 13.0-17.0 The [facility] Comment on above: Order Comment: No: D o not add to previous draw Performed By: #### 5 0103 ####[facility] IMMATURE GRANS 0.7 % Normal 0.0-1.0 The [facility] Comment on above: Order Comment: No: D o not add to previous draw Performed By: #### 5 0103 ####[facility]3000 [facility].[address] Lymphocytes (Bld) [#/Vol] 23.3 10*3/uL High 1.2-4.0 The [facility] Comment on above: Order Comment: No: D o not add to previous draw Performed By: #### 5 0103 ####[facility] Lymphocytes/100 WBC (Bld) 81.5 % High 20.0-45.0 [facility] Comment on above: Order Comment: No: D o not add to previous draw Performed By: #### 5 0103 ####[facility] MCH (RBC) [Entitic mass] 32.2 pg Normal 27.0-33.0 The [facility] Comment on above: Order Comment: No: D o not add to previous draw Performed By: #### 5 3 ####[facility] MCHC (RBC) [Mass/Vol] 32.6 g/dL Normal 32.0-35.0 [facility] Comment on above: Order Comment: No: D o not add to previous draw Performed By: #### 5 3 ####[facility] MCV (RBC) [Entitic vol] 98.8 fL High 82.0-98.0 [facility] Comment on above: Order Comment: No: D o not add to previous draw Performed By: #### 5 0103 ####[facility] Monocytes (Bld) [#/Vol] 1.0 10*3/uL Normal 0.1-1.0 [facility] Comment on above: Order Comment: No: D o not add to previous draw Performed By: #### 5 3 ####[facility]3000 [place] [address], [facility] MONOS 3.5 % Low 5.0-12.0 [facility] Comment on above: Order Comment: No: D o not add to previous draw Performed By: #### 5 0103 ####[facility] [place] [address], [facility] Neutrophils/100 WBC (Bld) 13.3 % Low 40.0-72.0 [facility] Comment on above: Order Comment: No: D o not add to previous draw Performed By: #### 5 0103 ####[facility]3000 [facility] [place] [address], [facility] Nucleated RBC/100 WBC (Bld) [Ratio] 0 % Normal 0-0 [facility] Comment on above: Order Comment: No: D o not add to previous draw Performed By: #### 5 0103 ####[facility]3000 [facility] [place] [address], [facility] PLAT CNT 232 10*3/uL Normal 150-400 [facility] Comment on above: Order Comment: No: D o not add to previous draw Performed By: #### 5 0103 ####[facility] [place] [address], [facility] RBC (Bld) [#/Vol] 3.29 10*6/uL Low 4.20-5.70 The [facility] Comment on above: Order Comment: No: D o not add to previous draw Performed By: #### 5 0103 ####[facility] [id number], [facility] SMUDGE CELLS MANY Normal The [facility] Comment on above: Order Comment: No: D o not add to previous draw Performed By: #### 5 0103 ####[facility] [id number], [facility] WBC (Bld) [#/Vol] 28.54 10*3/uL High 4.00-10.60 [facility] Comment on above: Order Comment: No: D o not add to previous draw Performed By: #### 5 0103 ####[facility]3000 [facility] [place] [address], [facility] MAGNESIUM BLOODon 11-06-2020 Magnesium [Mass/Vol] 2.1 mg/dL Normal 1.9-2.7 [facility] Comment on above: Order Comment: No: D o not add to previous draw Performed By: #### 0 0071, 72854 ####[facility]3000 [facility] [address], [facility] POC GLUCOSE LABon 11-06-2020 Glucose [Mass/Vol] 119 mg/dL High 70-100 The [facility] Comment on above: Performed By: #### 8 5499 ####[facility]3000 [facility] [address], [facility] Glucose [Mass/Vol] 118 mg/dL High 70-100 [facility] Comment on above: Performed By: #### 8 5499 ####[facility]3000 [facility] [address], [facility] Glucose [Mass/Vol] 161 mg/dL High 70-100 [facility] Comment on above: Performed By: #### 8 5499 ####[facility]3000 [facility] [place] [address], [facility] Glucose [Mass/Vol] 155 mg/dL High 70-100 [facility] Comment on above: Performed By: #### 8 5499 ####[facility]3000 [facility] [place] [address], [facility] BASIC METABOLIC PANELon Calcium [Mass/Vol] 8.2 mg/dL Low 8.6-10.3 [facility] Comment on above: Order Comment: No: D o not add to previous drawNURSE DRAW RN JESSE Performed By: #### 0 0071, 27584 ####[facility]3000 [facility] [place] [address], [facility] Chloride [Moles/Vol] 106 mmol/L Normal 98-107 The [facility] Comment on above: Order Comment: No: D o not add to previous drawNURSE DRAW RN JESSE Performed By: #### 0 0071, 88605 ####[facility] [facility] [place] [address], [facility] CO2 [Moles/Vol] 25 mmol/L Normal 21-31 The [facility] Comment on above: Order Comment: No: D o not add to previous drawNURSE DRAW RN JESSE Performed By: #### 0 0071, 95781 ####[place] [id number] [address] Creatinine [Mass/Vol] 0.84 mg/dL Normal 0.70-1.30 [facility] Comment on above: Order Comment: No: D o not add to previous drawNURSE DRAW RN JESSE Performed By: #### 0 0071, 53956 ####[place] [address] [facility].[address] GFR/1.73 sq M.predicted among blacks MDRD (S/P/Bld) [Vol rate/Area] mL/min/{1.73_m2} Normal >60 The [facility] Comment on above: Order Comment: No: D o not add to previous drawNURSE DRAW RN JESSE Result Comment: Calc ulation may not be valid for patients over 70 years Performed By: #### 0 0071, 44723 ####[facility]3000 [facility] [place] [address], [facility] GFR/1.73 sq M.predicted among non-blacks MDRD (S/P/Bld) [Vol rate/Area] mL/min/{1.73_m2} Normal >60 The [facility] Comment on above: Order Comment: No: D o not add to previous drawNURSE DRAW RN JESSE Result Comment: Calc ulation may not be valid for patients over 70 years Performed By: #### 0 0071, 41395 ####[facility]3000 [facility] [place] [address], [facility] Glucose [Mass/Vol] 134 mg/dL High 70-100 [facility] Comment on above: Order Comment: No: D o not add to previous drawNURSE DRAW RN JESSE Performed By: #### 0 0071, 92864 ####[facility]3000 [facility] [place] [address], [facility] Potassium [Moles/Vol] 4.0 mmol/L Normal 3.5-5.1 [facility] Comment on above: Order Comment: No: D o not add to previous drawNURSE DRAW RN JESSE Performed By: #### 0 0071, 17623 ####[facility]3000 [facility].[address] Sodium [Moles/Vol] 136 mmol/L Normal 136-145 [facility] Comment on above: Order Comment: No: D o not add to previous drawNURSE DRAW RN JESSE Performed By: #### 0 0071, 69255 ####[facility]3000 [facility].[address] Urea nitrogen [Mass/Vol] 9 mg/dL Normal 7-25 [facility] Comment on above: Order Comment: No: D o not add to previous drawNURSE DRAW RN JESSE Performed By: #### 0 0071, 88900 ####[facility] [facility] [place] [address], [facility] CBC W/DIFFon 11-05-2020 ABS IMM GRANS 0.2 10*3/uL Normal 0.0-0.2 The [facility] Comment on above: Order Comment: No: D o not add to previous drawNURSE DRAW RN JESSE Performed By: #### 5 0103 ####[facility] [place] [address], [facility] ABS NEUTROPHILS 4.1 10*3/uL Normal 1.6-7.6 The [facility] Comment on above: Order Comment: No: D o not add to previous drawNURSE DRAW RN JESSE Performed By: #### 5 0103 ####[facility]3000 [facility] [place] [address], [facility] Basophils (Bld) [#/Vol] 0.1 10*3/uL Normal 0.0-0.2 [facility] Comment on above: Order Comment: No: D o not add to previous drawNURSE DRAW RN JESSE Performed By: #### 5 3 ####[facility] [place] [address], [facility] Basophils/100 WBC (Bld) 0.3 % Normal 0.0-1.0 [facility] Comment on above: Order Comment: No: D o not add to previous drawNURSE DRAW RN JESSE Performed By: #### 5 0103 ####[facility] [facility] [place] [address], [facility] Eosinophils (Bld) [#/Vol] 0.2 10*3/uL Normal 0.0-0.5 [facility] Comment on above: Order Comment: No: D o not add to previous drawNURSE DRAW RN JESSE Performed By: #### 5 3 ####[facility]3000 [facility] [place] [address], [facility] Eosinophils/100 WBC (Bld) 0.7 % Normal 0.0-6.0 [facility] Comment on above: Order Comment: No: D o not add to previous drawNURSE DRAW RN JESSE Performed By: #### 5 0103 ####[facility] [place] [address], [facility] Erythrocyte distribution width (RBC) [Ratio] 14.8 % Normal 11.5-15.0 [facility] Comment on above: Order Comment: No: D o not add to previous drawNURSE DRAW RN JESSE Performed By: #### 5 3 ####[facility] Hematocrit (Bld) [Volume fraction] 32.3 % Low 39.0-50.0 [facility] Comment on above: Order Comment: No: D o not add to previous drawNURSE DRAW RN JESSE Performed By: #### 5 102 ####[facility] Hemoglobin (Bld) [Mass/Vol] 10.4 g/dL Low 13.0-17.0 [facility] Comment on above: Order Comment: No: D o not add to previous drawNURSE DRAW RN JESSE Performed By: #### 5 102 ####[facility] IMMATURE GRANS 0.6 % Normal 0.0-1.0 The [facility] Comment on above: Order Comment: No: D o not add to previous drawNURSE DRAW RN JESSE Performed By: #### 5 102 ####[facility] Lymphocytes (Bld) [#/Vol] 22.1 10*3/uL High 1.2-4.0 [facility] Comment on above: Order Comment: No: D o not add to previous drawNURSE DRAW RN JESSE Performed By: #### 5 102 ####[facility] [place] [address], [facility] Lymphocytes/100 WBC (Bld) 82.1 % High 20.0-45.0 [facility] Comment on above: Order Comment: No: D o not add to previous drawNURSE DRAW RN JESSE Performed By: #### 5 102 ####[facility] [place] [address], [facility] MCH (RBC) [Entitic mass] 31.9 pg Normal 27.0-33.0 [facility] Comment on above: Order Comment: No: D o not add to previous drawNURSE DRAW RN JESSE Performed By: #### 5 0103 ####[facility] MCHC (RBC) [Mass/Vol] 32.2 g/dL Normal 32.0-35.0 [facility] Comment on above: Order Comment: No: D o not add to previous drawNURSE DRAW RN JESSE Performed By: #### 5 3 ####[facility] MCV (RBC) [Entitic vol] 99.1 fL High 82.0-98.0 [facility] Comment on above: Order Comment: No: D o not add to previous drawNURSE DRAW RN JESSE Performed By: #### 5 3 ####[facility] Monocytes (Bld) [#/Vol] 0.3 10*3/uL Normal 0.1-1.0 [facility] Comment on above: Order Comment: No: D o not add to previous drawNURSE DRAW RN JESSE Performed By: #### 5 102 ####[facility] MONOS 1.1 % Low 5.0-12.0 [facility] Comment on above: Order Comment: No: D o not add to previous drawNURSE DRAW RN JESSE Performed By: #### 5 3 ####[facility] Neutrophils/100 WBC (Bld) 15.2 % Low 40.0-72.0 [facility] Comment on above: Order Comment: No: D o not add to previous drawNURSE DRAW RN JESSE Performed By: #### 5 3 ####[facility] Nucleated RBC/100 WBC (Bld) [Ratio] 0 % Normal 0-0 [facility] Comment on above: Order Comment: No: D o not add to previous drawNURSE DRAW RN JESSE Performed By: #### 5 0103 ####[facility]3000 [facility] [place] [address], [facility] PLAT CNT 221 10*3/uL Normal 150-400 [facility] Comment on above: Order Comment: No: D o not add to previous drawNURSE DRAW RN JESSE Performed By: #### 5 0103 ####[facility]3000 [facility].[address] RBC (Bld) [#/Vol] 3.26 10*6/uL Low 4.20-5.70 The [facility] Comment on above: Order Comment: No: D o not add to previous drawNURSE DRAW RN JESSE Performed By: #### 5 0103 ####[facility]3000 [facility].[address] SMUDGE CELLS Many Normal [facility] Comment on above: Order Comment: No: D o not add to previous drawNURSE DRAW RN JESSE Performed By: #### 5 0103 ####[facility]3000 [facility] [place] [address], [facility] WBC (Bld) [#/Vol] 26.95 10*3/uL High 4.00-10.60 [facility] Comment on above: Order Comment: No: D o not add to previous drawNURSE DRAW RN JESSE Performed By: #### 5 0103 ####[facility]3000 [facility].[address] MAGNESIUM BLOODon 11-05-2020 Magnesium [Mass/Vol] 1.8 mg/dL Low 1.9-2.7 [facility] Comment on above: Order Comment: No: D o not add to previous drawNURSE DRAW PATTY MOLINA Performed By: #### 0 0071, 40591 ####[facility]3000 [facility] [place] [address], [facility] POC GLUCOSE LABon 11-05-2020 Glucose [Mass/Vol] 129 mg/dL High 70-100 [facility] Comment on above: Performed By: #### 8 5499 ####[facility] [facility] [place] [address], [facility] Glucose [Mass/Vol] 164 mg/dL High 70-100 [facility] Comment on above: Performed By: #### 8 5499 ####[place] [address] [facility] [place] [address], [facility] Glucose [Mass/Vol] 132 mg/dL High 70-100 [facility] Comment on above: Performed By: #### 8 5499 ####[place] [address] [facility] [place] [address], [facility] Glucose [Mass/Vol] 123 mg/dL High 70-100 The [facility] Comment on above: Performed By: #### 8 5499 ####[place] [address] [facility].[address] APTTon 11-04-2020 aPTT Coag (Bld) [Time] 30.1 s Normal 25.0-35.0 The [facility] Comment on above: Order Comment: Yes: Add [...] THIS PURPOSE. Performed By: #### 5 6101, 38892 ####[facility]3000 [facility] [place] [address], [facility] BASIC METABOLIC PANELon 03-0 Calcium [Mass/Vol] 8.2 mg/dL Low 8.6-10.3 [facility] Comment on above: Order Comment: No: D o not add to previous drawNurse draw Performed By: #### 9 9909, 15868, 62067, 53242, 66134 ####[facility] [facility] [place] [address], [facility] Chloride [Moles/Vol] 104 mmol/L Normal 98-107 [facility] Comment on above: Order Comment: No: D o not add to previous drawNurse draw Performed By: #### 9 9909, 33269, 20316, 90490, 29093 ####[facility] [facility] [place] [address], [facility] CO2 [Moles/Vol] 27 mmol/L Normal 21-31 The [facility] Comment on above: Order Comment: No: D o not add to previous drawNurse draw Performed By: #### 9 9909, 23719, 08250, 93031, 18451 ####[facility] [facility] [place] [address], [facility] Creatinine [Mass/Vol] 0.86 mg/dL Normal 0.70-1.30 The [facility] Comment on above: Order Comment: No: D o not add to previous drawNurse draw Performed By: #### 9 9909, 74140, 02990, 18617, 30015 ####[facility] [facility] [place] [address], [facility] GFR/1.73 sq M.predicted among blacks MDRD (S/P/Bld) [Vol rate/Area] mL/min/{1.73_m2} Normal >60 The [facility] Comment on above: Order Comment: No: D o not add to previous drawNurse draw Result Comment: Calc ulation may not be valid for patients over 70 years Performed By: #### 9 9909, 75052, 20374, 10467, 85140 ####[facility] [place] [address], [facility] GFR/1.73 sq M.predicted among non-blacks MDRD (S/P/Bld) [Vol rate/Area] mL/min/{1.73_m2} Normal >60 The [facility] Comment on above: Order Comment: No: D o not add to previous drawNurse draw Result Comment: Calc ulation may not be valid for patients over 70 years Performed By: #### 9 9909, 61131, 61459, 38120, 59794 ####[facility] [facility] [place] [address], [facility] Glucose [Mass/Vol] 140 mg/dL High 70-100 [facility] Comment on above: Order Comment: No: D o not add to previous drawNurse draw Performed By: #### 9 9909, 69108, 53840, 53421, 25694 ####[facility] [facility] [place] [address], [facility] Potassium [Moles/Vol] 4.1 mmol/L Normal 3.5-5.1 The [facility] Comment on above: Order Comment: No: D o not add to previous drawNurse draw Performed By: #### 9 9909, 57760, 91282, 43068, 43570 ####[facility] [place] [address], [facility] Sodium [Moles/Vol] 136 mmol/L Normal 136-145 [facility] Comment on above: Order Comment: No: D o not add to previous drawNurse draw Performed By: #### 9 9909, 65069, 07906, 37984, 06769 ####[facility] [place] [address], [facility] Urea nitrogen [Mass/Vol] 12 mg/dL Normal 7-25 [facility] Comment on above: Order Comment: No: D o not add to previous drawNurse draw Performed By: #### 9 9909, 95893, 42486, 29089, 98757 ####[facility] CBC COMPLETE BLOOD COUNTon 11-04-2020 Erythrocyte distribution width (RBC) [Ratio] 14.7 % Normal 11.5-15.0 The [facility] Comment on above: Order Comment: No: D o not add to previous drawNurse draw Performed By: #### 5 0608 ####[facility] Hematocrit (Bld) [Volume fraction] 33.5 % Low 39.0-50.0 The [facility] Comment on above: Order Comment: No: D o not add to previous drawNurse draw Performed By: #### 5 0608 ####[place] [address] [address] Hemoglobin (Bld) [Mass/Vol] 10.9 g/dL Low 13.0-17.0 [facility] Comment on above: Order Comment: No: D o not add to previous drawNurse draw Performed By: #### 5 0608 ####[place] [address] [address] MCH (RBC) [Entitic mass] 31.9 pg Normal 27.0-33.0 [facility] Comment on above: Order Comment: No: D o not add to previous drawNurse draw Performed By: #### 5 0608 ####[facility] MCHC (RBC) [Mass/Vol] 32.5 g/dL Normal 32.0-35.0 [facility] Comment on above: Order Comment: No: D o not add to previous drawNurse draw Performed By: #### 5 0608 ####[facility] [place] [address], [facility] MCV (RBC) [Entitic vol] 98.0 fL Normal 82.0-98.0 [facility] Comment on above: Order Comment: No: D o not add to previous drawNurse draw Performed By: #### 5 0608 ####[facility] [place] [address], [facility] Nucleated RBC/100 WBC (Bld) [Ratio] 0 % Normal 0-0 [facility] Comment on above: Order Comment: No: D o not add to previous drawNurse draw Performed By: #### 5 0608 ####[facility] [place] [address], [facility] PLAT CNT 219 10*3/uL Normal 150-400 [facility] Comment on above: Order Comment: No: D o not add to previous drawNurse draw Performed By: #### 5 0608 ####[facility] [facility] [place] [address], [facility] RBC (Bld) [#/Vol] 3.42 10*6/uL Low 4.20-5.70 The [facility] Comment on above: Order Comment: No: D o not add to previous drawNurse draw Performed By: #### 5 0608 ####[facility] [facility] [place] [address], [facility] WBC (Bld) [#/Vol] 28.62 10*3/uL High 4.00-10.60 The [facility] Comment on above: Order Comment: No: D o not add to previous drawNurse draw Performed By: #### 5 0608 ####[facility] [place] [address], [facility] LIVER BATTERYon 11-04-2020 Albumin [Mass/Vol] 3.2 g/dL Low 3.5-5.7 [facility] Comment on above: Order Comment: Yes: Add to Previous draw if ableNurse draw Performed By: #### 9 9909, 29762, 75662, 63990, 01436 ####[facility] [place] [address], [facility] ALKALINE PHOSPH 62 IU/L Normal 34-104 The [facility] Comment on above: Order Comment: Yes: Add to Previous draw if ableNurse draw Performed By: #### 9 9909, 21904, 43813, 76950, 52502 ####[facility] [facility] [place] [address], [facility] ALT [Catalytic activity/Vol] 58 U/L High 7-52 The [facility] Comment on above: Order Comment: Yes: Add to Previous draw if ableNurse draw Performed By: #### 9 9909, 01539, 07468, 20661, 02279 ####[facility] [facility] [place] [address], [facility] AST [Catalytic activity/Vol] 15 U/L Normal 13-39 The [facility] Comment on above: Order Comment: Yes: Add to Previous draw if ableNurse draw Performed By: #### 9 9909, 20597, 77990, 94632, 05605 ####[facility] [place] [address], [facility] Bilirubin [Mass/Vol] 0.5 mg/dL Normal 0.3-1.0 [facility] Comment on above: Order Comment: Yes: Add to Previous draw if ableNurse draw Performed By: #### 9 9909, 94868, 08325, 31394, 99147 ####[facility] [place] [address], [facility] Bilirubin.direct [Mass/Vol] 0.1 mg/dL Normal 0.0-0.2 [facility] Comment on above: Order Comment: Yes: Add to Previous draw if ableNurse draw Performed By: #### 9 9909, 33657, 81721, 68658, 21112 ####[facility] [place] [address], [place] Protein [Mass/Vol] 5.3 g/dL Low 6.0-8.3 [facility] Comment on above: Order Comment: Yes: Add to Previous draw if ableNurse draw Performed By: #### 9 9909, 48005, 64875, 19637, 73768 ####[facility] [place] [address], [place] MAGNESIUM BLOODon 11-04-2020 Magnesium [Mass/Vol] 1.9 mg/dL Normal 1.9-2.7 [facility] Comment on above: Order Comment: Yes: Add to Previous draw if ableNurse draw Performed By: #### 9 9909, 88738, 16187, 60532, 98028 ####[facility] [place] [address], [place] PHOSPHORUS BLOODon Phosphate [Mass/Vol] 2.9 mg/dL Normal 2.5-5.0 [facility] Comment on above: Order Comment: Yes: Add to Previous draw if ableNurse draw Performed By: #### 9 9909, 97491, 24608, 78294, 67591 ####[facility] [place] [address], [place] POC GLUCOSE LABon 11-04-2020 Glucose [Mass/Vol] 142 mg/dL High 70-100 [facility] Comment on above: Performed By: #### 8 5499 ####[facility] [place] [address], [place] Glucose [Mass/Vol] 134 mg/dL High 70-100 [facility] Comment on above: Performed By: #### 8 5499 ####[facility] [place] [address], [place] Glucose [Mass/Vol] 120 mg/dL High 70-100 [facility] Comment on above: Performed By: #### 8 5499 ####[facility] [place] [address], [place] Glucose [Mass/Vol] 115 mg/dL High 70-100 [facility] Comment on above: Performed By: #### 8 5499 ####[facility] [place] [address], [facility] PROTHROMBIN TIMEon 1 INR Coag (PPP) [Relative time] 1.15 {INR} Normal 0.91-1.16 [facility] Comment on above: Order Comment: Yes: Add [...] OF ACTION, CLINICALEFFECTIVENESS, AND OPTIMAL THERAPEUTIC RANGE. [id number]. Performed By: #### 5 6101, 04611 ####[facility] [place] [address], [facility] PT Coag (PPP) [Time] 14.7 s Normal 12.3-14.8 [facility] Comment on above: Order Comment: Yes: Add to Previous draw if ableNurse draw Result Comment: ALL RESULTS MUST BE INTERPRETED WITH RESPECT TO BLOOD DRAWING ARTIFACTOR DILUTION ERROR OF ANTICOAGULANT AT THE TIME OF SAMPLING. Performed By: #### 5 6101, 31026 ####[facility] TRIGLYCERIDES BLOODon 2020 Triglyceride [Mass/Vol] 157 mg/dL High 40-149 [facility] Comment on above: Order Comment: Yes: Add to Previous draw if ableNurse draw Result Comment: TRIG LYCERIDE REFERENCE RANGE:20 YEARS AND OLDER CARDIOVASCULAR RISKLESS THAN 150 mg/dl LOW [id number] TO 199 mg/dl BORDERLINE [id number] mg/dl AND GREATER HIGH RISK Performed By: #### 9 9909, 06054, 39461, 00543, 37466 ####[facility] *BLOOD CULTUREon 11-03-2020 *BLOOD CULTURE Clinical Report: (D) Specimen: BLOOD CULTURE Collected: 11/03/2020 13:36 Status: Final Last Updated: 11/08/2020 14:40 (1) At appt per log book CULT RES (Final) No Growth Day 5 Normal [facility] Comment on above: Order Comment: At ap pt per log book Performed By: #### 3 0313 ####[facility] [place] [address] *BLOOD CULTURE Clinical Report: (D) Specimen: BLOOD CULTURE Collected: 11/03/2020 14:01 Status: Final Last Updated: 11/08/2020 14:40 (1) At appt per log book CULT RES (Final) No Growth Day 5 Normal [facility] Comment on above: Order Comment: At ap pt per log book Performed By: #### 3 0313 ####[facility] *MRSA/MSSA DNA NASALon 11-03 *MRSA/MSSA DNA NASAL Clinical Report: (D ) Specimen: NASAL SWAB Collected: 11/03/2020 12:27 Status: Final Last Updated: 11/04/2020 12:54 MSSA DNA (Final) Negative MRSA DNA (Final) Negative Normal [facility] Comment on above: Performed By: #### 3 1595 ####[facility] [place] [address], [facility] BASIC METABOLIC PANELon 03-0 Calcium [Mass/Vol] 8.3 mg/dL Low 8.6-10.3 [facility] Comment on above: Order Comment: No: D o not add to previous draw Performed By: #### 1 69, 91419 ####[facility] [place] [address], [place] Chloride [Moles/Vol] 103 mmol/L Normal 98-107 [facility] Comment on above: Order Comment: No: D o not add to previous draw Performed By: #### 1 69, 48764 ####[facility] [place] [address], [place] CO2 [Moles/Vol] 25 mmol/L Normal 21-31 [facility] Comment on above: Order Comment: No: D o not add to previous draw Performed By: #### 1 69, 20447 ####[facility] [place] [address], [place] Creatinine [Mass/Vol] 0.93 mg/dL Normal 0.70-1.30 [facility] Comment on above: Order Comment: No: D o not add to previous draw Performed By: #### 1 69, 44799 ####[facility] [id number], [place] GFR/1.73 sq M.predicted among blacks MDRD (S/P/Bld) [Vol rate/Area] mL/min/{1.73_m2} Normal >60 [facility] Comment on above: Order Comment: No: D o not add to previous draw Result Comment: Calc ulation may not be valid for patients over 70 years Performed By: #### 1 69, 38729 ####[facility] [place] [address], [place] GFR/1.73 sq M.predicted among non-blacks MDRD (S/P/Bld) [Vol rate/Area] mL/min/{1.73_m2} Normal >60 [facility] Comment on above: Order Comment: No: D o not add to previous draw Result Comment: Calc ulation may not be valid for patients over 70 years Performed By: #### 1 69, 73747 ####[facility] [facility] [place] [address], [facility] Glucose [Mass/Vol] 147 mg/dL High 70-100 [facility] Comment on above: Order Comment: No: D o not add to previous draw Performed By: #### 1 69, 61154 ####[facility] [facility] [place] [address], [facility] Potassium [Moles/Vol] 3.8 mmol/L Normal 3.5-5.1 [facility] Comment on above: Order Comment: No: D o not add to previous draw Performed By: #### 1 69, 27604 ####[facility] [facility] [place] [address], [facility] Sodium [Moles/Vol] 136 mmol/L Normal 136-145 [facility] Comment on above: Order Comment: No: D o not add to previous draw Performed By: #### 1 69, 92938 ####[facility] [facility] [place] [address], [facility] Urea nitrogen [Mass/Vol] 15 mg/dL Normal 7-25 [facility] Comment on above: Order Comment: No: D o not add to previous draw Performed By: #### 1 69, 81660 ####[facility] [facility].[address] CBC COMPLETE BLOOD COUNTon 0 - Erythrocyte distribution width (RBC) [Ratio] 14.9 % Normal 11.5-15.0 [facility] Comment on above: Order Comment: No: D o not add to previous draw Performed By: #### 5 0608 ####[facility] [facility].[address] Hematocrit (Bld) [Volume fraction] 39.3 % Normal 39.0-50.0 [facility] Comment on above: Order Comment: No: D o not add to previous draw Performed By: #### 5 0608 ####[address] Hemoglobin (Bld) [Mass/Vol] 12.0 g/dL Low 13.0-17.0 [facility] Comment on above: Order Comment: No: D o not add to previous draw Performed By: #### 5 0608 ####[address] MCH (RBC) [Entitic mass] 32.0 pg Normal 27.0-33.0 [facility] Comment on above: Order Comment: No: D o not add to previous draw Performed By: #### 5 0608 ####[address] MCHC (RBC) [Mass/Vol] 30.5 g/dL Low 32.0-35.0 [facility] Comment on above: Order Comment: No: D o not add to previous draw Performed By: #### 5 0608 ####[address] MCV (RBC) [Entitic vol] 104.8 fL High 82.0-98.0 [facility] Comment on above: Order Comment: No: D o not add to previous draw Performed By: #### 5 0608 ####[address] Nucleated RBC/100 WBC (Bld) [Ratio] 0 % Normal 0-0 [facility] Comment on above: Order Comment: No: D o not add to previous draw Performed By: #### 5 0608 ####[facility] [place] [address], [facility] PLAT CNT 208 10*3/uL Normal 150-400 [facility] Comment on above: Order Comment: No: D o not add to previous draw Performed By: #### 5 0608 ####[facility] [facility] [place] [address], [facility] RBC (Bld) [#/Vol] 3.75 10*6/uL Low 4.20-5.70 [facility] Comment on above: Order Comment: No: D o not add to previous draw Performed By: #### 5 0608 ####[facility] [place] [address], [facility] WBC (Bld) [#/Vol] 26.14 10*3/uL High 4.00-10.60 [facility] Comment on above: Order Comment: No: D o not add to previous draw Performed By: #### 5 0608 ####[facility] [facility].[address] ABDOMEN AND PELVIS WO CON TRASTon 11-03-2020 CT ABDOMEN AND PELVIS WO CONTRAST Normal [facility] Comment on above: Order Comment: Obstr uction, 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 MAGNESIUM BLOODon 11-03-2020 Magnesium [Mass/Vol] 2.0 mg/dL Normal 1.9-2.7 [facility] Comment on above: Order Comment: No: D o not add to previous draw Performed By: #### 1 0070, 19885 ####[facility] [place] [address], [facility] PHOSPHORUS BLOODon Phosphate [Mass/Vol] 2.8 mg/dL Normal 2.5-5.0 [facility] Comment on above: Order Comment: Yes: Add to Previous draw if able Performed By: #### 4 1000 ####[facility] [place] [address], [facility] POC GLUCOSE LABon 11-03-2020 Glucose [Mass/Vol] 181 mg/dL High 70-100 [facility] Comment on above: Performed By: #### 8 5499 ####[facility] [place] [address], [place] Glucose [Mass/Vol] 77 mg/dL Normal 70-100 [facility] Comment on above: Performed By: #### 8 5499 ####[facility] [place] [address], [place] Glucose [Mass/Vol] 141 mg/dL High 70-100 [facility] Comment on above: Performed By: #### 8 5499 ####[facility] [place] [address], [place] Glucose [Mass/Vol] 120 mg/dL High 70-100 [facility] Comment on above: Performed By: #### 8 5499 ####[facility] [place] [address], [facility] BASIC METABOLIC PANELon Calcium [Mass/Vol] 7.8 mg/dL Low 8.6-10.3 [facility] Comment on above: Order Comment: No: D o not add to previous draw Performed By: #### 0 0071, 93900 ####[facility] [place] [address], [place] Chloride [Moles/Vol] 109 mmol/L High 98-107 [facility] Comment on above: Order Comment: No: D o not add to previous draw Performed By: #### 0 0071, 07709 ####[facility] [place] [address], [place] CO2 [Moles/Vol] 18 mmol/L Low 21-31 [facility] Comment on above: Order Comment: No: D o not add to previous draw Performed By: #### 0 0071, 87132 ####[facility] [place] [address], [place] Creatinine [Mass/Vol] 0.92 mg/dL Normal 0.70-1.30 [facility] Comment on above: Order Comment: No: D o not add to previous draw Performed By: #### 0 0071, 44385 ####[facility] [place] [address], [facility] GFR/1.73 sq M.predicted among blacks MDRD (S/P/Bld) [Vol rate/Area] mL/min/{1.73_m2} Normal >60 [facility] Comment on above: Order Comment: No: D o not add to previous draw Result Comment: Calc ulation may not be valid for patients over 70 years Performed By: #### 0 0071, 88967 ####[facility] [place] [address], [facility] GFR/1.73 sq M.predicted among non-blacks MDRD (S/P/Bld) [Vol rate/Area] mL/min/{1.73_m2} Normal >60 [facility] Comment on above: Order Comment: No: D o not add to previous draw Result Comment: Calc ulation may not be valid for patients over 70 years Performed By: #### 0 0071, 66991 ####[facility] [place] [address], [place] Glucose [Mass/Vol] 179 mg/dL High 70-100 [facility] Comment on above: Order Comment: No: D o not add to previous draw Performed By: #### 0 0071, 56608 ####[facility] [place] [address], [place] Potassium [Moles/Vol] 4.1 mmol/L Normal 3.5-5.1 [facility] Comment on above: Order Comment: No: D o not add to previous draw Performed By: #### 0 0071, 99481 ####[facility] [place] [address], [facility] Sodium [Moles/Vol] 137 mmol/L Normal 136-145 [facility] Comment on above: Order Comment: No: D o not add to previous draw Performed By: #### 0 0071, 73985 ####[facility] Urea nitrogen [Mass/Vol] 18 mg/dL Normal 7-25 [facility] Comment on above: Order Comment: No: D o not add to previous draw Performed By: #### 0 0071, 38497 ####[facility] CBC COMPLETE BLOOD COUNTon 0 - Erythrocyte distribution width (RBC) [Ratio] 14.9 % Normal 11.5-15.0 [facility] Comment on above: Order Comment: No: D o not add to previous draw Performed By: #### 5 0608 ####[facility] [facility] Hematocrit (Bld) [Volume fraction] 36.4 % Low 39.0-50.0 [facility] Comment on above: Order Comment: No: D o not add to previous draw Performed By: #### 5 0608 ####[facility] [place] [address], [facility] Hemoglobin (Bld) [Mass/Vol] 11.0 g/dL Low 13.0-17.0 [facility] Comment on above: Order Comment: No: D o not add to previous draw Performed By: #### 5 0608 ####[facility] MCH (RBC) [Entitic mass] 32.4 pg Normal 27.0-33.0 [facility] Comment on above: Order Comment: No: D o not add to previous draw Performed By: #### 5 0608 ####[facility] [facility].[address] MCHC (RBC) [Mass/Vol] 30.2 g/dL Low 32.0-35.0 [facility] Comment on above: Order Comment: No: D o not add to previous draw Performed By: #### 5 0608 ####[address] MCV (RBC) [Entitic vol] 107.1 fL High 82.0-98.0 [facility] Comment on above: Order Comment: No: D o not add to previous draw Performed By: #### 5 0608 ####[address] Nucleated RBC/100 WBC (Bld) [Ratio] 0 % Normal 0-0 [facility] Comment on above: Order Comment: No: D o not add to previous draw Performed By: #### 5 0608 ####[address] PLAT CNT 169 10*3/uL Normal 150-400 [facility] Comment on above: Order Comment: No: D o not add to previous draw Performed By: #### 5 0608 ####[address] RBC (Bld) [#/Vol] 3.40 10*6/uL Low 4.20-5.70 [facility] Comment on above: Order Comment: No: D o not add to previous draw Performed By: #### 5 0608 ####[address] [place] [address], [place] WBC (Bld) [#/Vol] 24.00 10*3/uL High 4.00-10.60 [facility] Comment on above: Order Comment: No: D o not add to previous draw Performed By: #### 5 0608 ####[facility] [place] [address], [place] MAGNESIUM BLOODon 11-02-2020 Magnesium [Mass/Vol] 2.0 mg/dL Normal 1.9-2.7 [facility] Comment on above: Order Comment: No: D o not add to previous draw Performed By: #### 0 0071, 75661 ####[facility] [place] [address], [place] POC GLUCOSE LABon 11-02-2020 Glucose [Mass/Vol] 160 mg/dL High 70-100 [facility] Comment on above: Performed By: #### 8 5499 ####[facility] [place] [address], [place] Glucose [Mass/Vol] 169 mg/dL High 70-100 [facility] Comment on above: Performed By: #### 8 5499 ####[facility] [place] [address], [place] Glucose [Mass/Vol] 151 mg/dL High 70-100 [facility] Comment on above: Performed By: #### 8 5499 ####[facility] [place] [address], [place] Glucose [Mass/Vol] 150 mg/dL High 70-100 [facility] Comment on above: Performed By: #### 8 5499 ####[facility] [place] [address], [place] Glucose [Mass/Vol] 156 mg/dL High 70-100 [facility] Comment on above: Performed By: #### 8 5499 ####[facility] [place] [address], [facility] PORTABLE ABDOMENon PORTABLE ABDOMEN Normal [facility] Comment on above: Order Comment: Evalu ate for Ileus BASIC METABOLIC PANELon Calcium [Mass/Vol] 7.8 mg/dL Low 8.6-10.3 [facility] Comment on above: Order Comment: No: D o not add to previous draw Performed By: #### 1 0, 80111 ####[facility] [place] [address], [facility] Chloride [Moles/Vol] 106 mmol/L Normal 98-107 [facility] Comment on above: Order Comment: No: D o not add to previous draw Performed By: #### 1 69, 56251 ####[facility] [place] [address], [facility] CO2 [Moles/Vol] 28 mmol/L Normal 21-31 [facility] Comment on above: Order Comment: No: D o not add to previous draw Performed By: #### 1 0, 79688 ####[facility] [place] [address], [facility] Creatinine [Mass/Vol] 0.91 mg/dL Normal 0.70-1.30 [facility] Comment on above: Order Comment: No: D o not add to previous draw Performed By: #### 1 0, 51993 ####[facility] [place] [address], [facility] GFR/1.73 sq M.predicted among blacks MDRD (S/P/Bld) [Vol rate/Area] mL/min/{1.73_m2} Normal >60 [facility] Comment on above: Order Comment: No: D o not add to previous draw Result Comment: Calc ulation may not be valid for patients over 70 years Performed By: #### 1 69, 69194 ####[facility] [place] [address], [facility] GFR/1.73 sq M.predicted among non-blacks MDRD (S/P/Bld) [Vol rate/Area] mL/min/{1.73_m2} Normal >60 [facility] Comment on above: Order Comment: No: D o not add to previous draw Result Comment: Calc ulation may not be valid for patients over 70 years Performed By: #### 1 69, 62826 ####[facility] [place] [address], [place] Glucose [Mass/Vol] 326 mg/dL High 70-100 [facility] Comment on above: Order Comment: No: D o not add to previous draw Performed By: #### 1 69, 79402 ####[facility] [place] [address], [facility] Potassium [Moles/Vol] 4.7 mmol/L Normal 3.5-5.1 [facility] Comment on above: Order Comment: No: D o not add to previous draw Performed By: #### 1 69, 92216 ####[facility] [place] [address], [place] Sodium [Moles/Vol] 137 mmol/L Normal 136-145 [facility] Comment on above: Order Comment: No: D o not add to previous draw Performed By: #### 1 69, 02647 ####[facility] [place] [address], [place] Urea nitrogen [Mass/Vol] 19 mg/dL Normal 7-25 [facility] Comment on above: Order Comment: No: D o not add to previous draw Performed By: #### 1 69, 25761 ####[facility] [place] [address], [place] CBC COMPLETE BLOOD COUNTon 0 3-1 Erythrocyte distribution width (RBC) [Ratio] 14.6 % Normal 11.5-15.0 [facility] Comment on above: Order Comment: No: D o not add to previous draw Performed By: #### 5 0608 ####[facility] Hematocrit (Bld) [Volume fraction] 34.1 % Low 39.0-50.0 [facility] Comment on above: Order Comment: No: D o not add to previous draw Performed By: #### 5 0608 ####[address] Hemoglobin (Bld) [Mass/Vol] 10.8 g/dL Low 13.0-17.0 [facility] Comment on above: Order Comment: No: D o not add to previous draw Performed By: #### 5 0608 ####[facility] MCH (RBC) [Entitic mass] 32.1 pg Normal 27.0-33.0 [facility] Comment on above: Order Comment: No: D o not add to previous draw Performed By: #### 5 0608 ####[place] [id number] [address] MCHC (RBC) [Mass/Vol] 31.7 g/dL Low 32.0-35.0 [facility] Comment on above: Order Comment: No: D o not add to previous draw Performed By: #### 5 0608 ####[facility] [place] [address], [facility] MCV (RBC) [Entitic vol] 101.5 fL High 82.0-98.0 [facility] Comment on above: Order Comment: No: D o not add to previous draw Performed By: #### 5 0608 ####[facility] [place] [address] [place] [address], [place] Nucleated RBC/100 WBC (Bld) [Ratio] 0 % Normal 0-0 [facility] Comment on above: Order Comment: No: D o not add to previous draw Performed By: #### 5 0608 ####[facility] [place] [address], [facility] PLAT CNT 189 10*3/uL Normal 150-400 [facility] Comment on above: Order Comment: No: D o not add to previous draw Performed By: #### 5 0608 ####[facility] [facility] [place] [address], [facility] RBC (Bld) [#/Vol] 3.36 10*6/uL Low 4.20-5.70 [facility] Comment on above: Order Comment: No: D o not add to previous draw Performed By: #### 5 0608 ####[facility] [facility] [place] [address], [facility] WBC (Bld) [#/Vol] 24.92 10*3/uL High 4.00-10.60 [facility] Comment on above: Order Comment: No: D o not add to previous draw Performed By: #### 5 0608 ####[facility] [facility] [facility] MAGNESIUM BLOODon 11-01-2020 Magnesium [Mass/Vol] 1.9 mg/dL Normal 1.9-2.7 [facility] Comment on above: Order Comment: No: D o not add to previous draw Performed By: #### 1 0070, [id number] ####[facility] [facility] [place] [address], [facility] POC GLUCOSE LABon 11-01-2020 Glucose [Mass/Vol] 164 mg/dL High 70-100 [facility] Comment on above: Performed By: #### 8 5499 ####[facility] [place] [address], [place] Glucose [Mass/Vol] 140 mg/dL High 70-100 [facility] Comment on above: Performed By: #### 8 5499 ####[facility] [place] [address], [place] Glucose [Mass/Vol] 157 mg/dL High 70-100 [facility] Comment on above: Performed By: #### 8 5499 ####[facility] [place] [address], [place] Glucose [Mass/Vol] 133 mg/dL High 70-100 [facility] Comment on above: Performed By: #### 8 5499 ####[facility] [facility] [place] [address], [place] BASIC METABOLIC PANELon 03-0 Calcium [Mass/Vol] 7.9 mg/dL Low 8.6-10.3 [facility] Comment on above: Order Comment: No: D o not add to previous draw Performed By: #### 0 007, 47769 ####[facility] [place] [address], [place] Chloride [Moles/Vol] 106 mmol/L Normal 98-107 [facility] Comment on above: Order Comment: No: D o not add to previous draw Performed By: #### 0 0071, [id number] ####[facility] [place] [address], [place] CO2 [Moles/Vol] 28 mmol/L Normal 21-31 [facility] Comment on above: Order Comment: No: D o not add to previous draw Performed By: #### 0 0071, 08710 ####[facility] [place] [address], [place] Creatinine [Mass/Vol] 0.87 mg/dL Normal 0.70-1.30 [facility] Comment on above: Order Comment: No: D o not add to previous draw Performed By: #### 0 0071, [id number] ####[facility] [place] [address], [facility] GFR/1.73 sq M.predicted among blacks MDRD (S/P/Bld) [Vol rate/Area] mL/min/{1.73_m2} Normal >60 [facility] Comment on above: Order Comment: No: D o not add to previous draw Result Comment: Calc ulation may not be valid for patients over 70 years Performed By: #### 0 0071, 80492 ####[facility] [place] [address], [place] GFR/1.73 sq M.predicted among non-blacks MDRD (S/P/Bld) [Vol rate/Area] mL/min/{1.73_m2} Normal >60 [facility] Comment on above: Order Comment: No: D o not add to previous draw Result Comment: Calc ulation may not be valid for patients over 70 years Performed By: #### 0 0071, 50549 ####[facility] [facility] [place] [address], [place] Glucose [Mass/Vol] 209 mg/dL High 70-100 [facility] Comment on above: Order Comment: No: D o not add to previous draw Performed By: #### 0 0071, 64189 ####[facility] [place] [address], [place] Potassium [Moles/Vol] 3.5 mmol/L Normal 3.5-5.1 [facility] Comment on above: Order Comment: No: D o not add to previous draw Performed By: #### 0 0071, 16850 ####[facility] [place] [address], [place] Sodium [Moles/Vol] 143 mmol/L Normal 136-145 [facility] Comment on above: Order Comment: No: D o not add to previous draw Performed By: #### 0 0071, 38962 ####[facility] Urea nitrogen [Mass/Vol] 20 mg/dL Normal 7-25 [facility] Comment on above: Order Comment: No: D o not add to previous draw Performed By: #### 0 0071, 53537 ####[facility] [facility].[address] CBC COMPLETE BLOOD COUNTon 0 - Erythrocyte distribution width (RBC) [Ratio] 14.5 % Normal 11.5-15.0 [facility] Comment on above: Order Comment: No: D o not add to previous draw Performed By: #### 5 0608 ####[place] [id number] Hematocrit (Bld) [Volume fraction] 33.3 % Low 39.0-50.0 [facility] Comment on above: Order Comment: No: D o not add to previous draw Performed By: #### 5 0608 ####[place] [id number] [facility].[address] Hemoglobin (Bld) [Mass/Vol] 10.7 g/dL Low 13.0-17.0 [facility] Comment on above: Order Comment: No: D o not add to previous draw Performed By: #### 5 0608 ####[facility] [facility] [place] [address], [facility] MCH (RBC) [Entitic mass] 31.6 pg Normal 27.0-33.0 [facility] Comment on above: Order Comment: No: D o not add to previous draw Performed By: #### 5 0608 ####[facility] [facility] [place] [address], [facility] MCHC (RBC) [Mass/Vol] 32.1 g/dL Normal 32.0-35.0 [facility] Comment on above: Order Comment: No: D o not add to previous draw Performed By: #### 5 0608 ####[facility] [place] [address], [facility] MCV (RBC) [Entitic vol] 98.2 fL High 82.0-98.0 [facility] Comment on above: Order Comment: No: D o not add to previous draw Performed By: #### 5 0608 ####[facility] [facility] [place] [address], [facility] Nucleated RBC/100 WBC (Bld) [Ratio] 0 % Normal 0-0 [facility] Comment on above: Order Comment: No: D o not add to previous draw Performed By: #### 5 0608 ####[facility] [facility] [place] [address], [facility] PLAT CNT 168 10*3/uL Normal 150-400 [facility] Comment on above: Order Comment: No: D o not add to previous draw Performed By: #### 5 0608 ####[facility] [facility] [place] [address], [facility] RBC (Bld) [#/Vol] 3.39 10*6/uL Low 4.20-5.70 [facility] Comment on above: Order Comment: No: D o not add to previous draw Performed By: #### 5 0608 ####[facility] [facility] [place] [address], [facility] WBC (Bld) [#/Vol] 20.00 10*3/uL High 4.00-10.60 [facility] Comment on above: Order Comment: No: D o not add to previous draw Performed By: #### 5 0608 ####[facility] [facility] [place] [address], [facility] MAGNESIUM BLOODon 10-31-2020 Magnesium [Mass/Vol] 2.1 mg/dL Normal 1.9-2.7 [facility] Comment on above: Order Comment: No: D o not add to previous draw Performed By: #### 0 0071, 84066 ####[facility] [place] [address], [place] POC GLUCOSE LABon 10-31-2020 Glucose [Mass/Vol] 236 mg/dL High 70-100 [facility] Comment on above: Performed By: #### 8 5499 ####[facility] [place] [address], [place] Glucose [Mass/Vol] 205 mg/dL High 70-100 [facility] Comment on above: Performed By: #### 8 5499 ####[facility] [place] [address], [place] Glucose [Mass/Vol] 173 mg/dL High 70-100 [facility] Comment on above: Performed By: #### 8 5499 ####[facility] [place] [address], [place] Glucose [Mass/Vol] 179 mg/dL High 70-100 [facility] Comment on above: Performed By: #### 8 5499 ####[facility] [place] [address], [place] Glucose [Mass/Vol] 168 mg/dL High 70-100 [facility] Comment on above: Performed By: #### 8 5499 ####[facility] [place] [address], [place] BASIC METABOLIC PANELon 10-04 Calcium [Mass/Vol] 7.7 mg/dL Low 8.6-10.3 [facility] Comment on above: Order Comment: No: D o not add to previous draw Performed By: #### 0 0071, 72934 ####[facility] [place] [address], [facility] Chloride [Moles/Vol] 108 mmol/L High 98-107 [facility] Comment on above: Order Comment: No: D o not add to previous draw Performed By: #### 0 0071, 81226 ####[facility] [place] [address], [place] CO2 [Moles/Vol] 26 mmol/L Normal 21-31 [facility] Comment on above: Order Comment: No: D o not add to previous draw Performed By: #### 0 0071, 55301 ####[facility] [place] [address], [facility] Creatinine [Mass/Vol] 0.85 mg/dL Normal 0.70-1.30 [facility] Comment on above: Order Comment: No: D o not add to previous draw Performed By: #### 0 0071, 80794 ####[facility] [facility] [address], [facility] GFR/1.73 sq M.predicted among blacks MDRD (S/P/Bld) [Vol rate/Area] mL/min/{1.73_m2} Normal >60 [facility] Comment on above: Order Comment: No: D o not add to previous draw Result Comment: Calc ulation may not be valid for patients over 70 years Performed By: #### 0 0071, 83314 ####[facility] [place] [address], [place] GFR/1.73 sq M.predicted among non-blacks MDRD (S/P/Bld) [Vol rate/Area] mL/min/{1.73_m2} Normal >60 [facility] Comment on above: Order Comment: No: D o not add to previous draw Result Comment: Calc ulation may not be valid for patients over 70 years Performed By: #### 0 0071, 91074 ####[facility] [place] [address], [facility] Glucose [Mass/Vol] 205 mg/dL High 70-100 [facility] Comment on above: Order Comment: No: D o not add to previous draw Performed By: #### 0 0071, 10985 ####[facility] [place] [address], [facility] Potassium [Moles/Vol] 3.7 mmol/L Normal 3.5-5.1 [facility] Comment on above: Order Comment: No: D o not add to previous draw Performed By: #### 0 0071, 81786 ####[facility] [place] [address], [facility] Sodium [Moles/Vol] 140 mmol/L Normal 136-145 [facility] Comment on above: Order Comment: No: D o not add to previous draw Performed By: #### 0 0071, 67908 ####[facility] [facility] [place] [address], [facility] Urea nitrogen [Mass/Vol] 21 mg/dL Normal 7-25 [facility] Comment on above: Order Comment: No: D o not add to previous draw Performed By: #### 0 0071, 62067 ####[facility] [facility] CBC COMPLETE BLOOD COUNTon 0 - Erythrocyte distribution width (RBC) [Ratio] 15.0 % Normal 11.5-15.0 [facility] Comment on above: Order Comment: No: D o not add to previous draw Performed By: #### 5 0608 ####[facility] [place] [address], [facility] Hematocrit (Bld) [Volume fraction] 33.5 % Low 39.0-50.0 [facility] Comment on above: Order Comment: No: D o not add to previous draw Performed By: #### 5 0608 ####[facility] Hemoglobin (Bld) [Mass/Vol] 10.7 g/dL Low 13.0-17.0 [facility] Comment on above: Order Comment: No: D o not add to previous draw Performed By: #### 5 0608 ####[facility] MCH (RBC) [Entitic mass] 31.7 pg Normal 27.0-33.0 [facility] Comment on above: Order Comment: No: D o not add to previous draw Performed By: #### 5 0608 ####[address] MCHC (RBC) [Mass/Vol] 31.9 g/dL Low 32.0-35.0 [facility] Comment on above: Order Comment: No: D o not add to previous draw Performed By: #### 5 0608 ####[address] MCV (RBC) [Entitic vol] 99.1 fL High 82.0-98.0 [facility] Comment on above: Order Comment: No: D o not add to previous draw Performed By: #### 5 0608 ####[facility] [place] [address] Nucleated RBC/100 WBC (Bld) [Ratio] 0 % Normal 0-0 [facility] Comment on above: Order Comment: No: D o not add to previous draw Performed By: #### 5 0608 ####[address] PLAT CNT 156 10*3/uL Normal 150-400 [facility] Comment on above: Order Comment: No: D o not add to previous draw Performed By: #### 5 0608 ####[facility] [place] [address], [place] RBC (Bld) [#/Vol] 3.38 10*6/uL Low 4.20-5.70 [facility] Comment on above: Order Comment: No: D o not add to previous draw Performed By: #### 5 0608 ####[facility] [place] [address], [place] WBC (Bld) [#/Vol] 19.93 10*3/uL High 4.00-10.60 [facility] Comment on above: Order Comment: No: D o not add to previous draw Performed By: #### 5 0608 ####[facility] [place] [address], [facility] MAGNESIUM BLOODon 10-30-2020 Magnesium [Mass/Vol] 2.1 mg/dL Normal 1.9-2.7 [facility] Comment on above: Order Comment: No: D o not add to previous draw Performed By: #### 0 0071, 31277 ####[facility] [id number], [facility] POC GLUCOSE LABon 10-30-2020 Glucose [Mass/Vol] 211 mg/dL High 70-100 [facility] Comment on above: Performed By: #### 8 5499 ####[facility] [place] [address], [place] Glucose [Mass/Vol] 176 mg/dL High 70-100 [facility] Comment on above: Performed By: #### 8 5499 ####[facility] [place] [address], [place] Glucose [Mass/Vol] 192 mg/dL High 70-100 [facility] Comment on above: Performed By: #### 8 5499 ####[facility] [place] [address], [place] Glucose [Mass/Vol] 173 mg/dL High 70-100 [facility] Comment on above: Performed By: #### 8 5499 ####[facility] [facility] [place] [address], [place] Glucose [Mass/Vol] 178 mg/dL High 70-100 [facility] Comment on above: Performed By: #### 8 5499 ####[facility] [place] [address], [place] BASIC METABOLIC PANELon -2 Calcium [Mass/Vol] 7.2 mg/dL Low 8.6-10.3 [facility] Comment on above: Order Comment: No: D o not add to previous draw Performed By: #### 0 0071, 03164 ####[facility] [place] [place] [address], [place] Calcium [Mass/Vol] 7.6 mg/dL Low 8.6-10.3 [facility] Comment on above: Order Comment: No: D o not add to previous draw Performed By: #### 0 0071, 96060 ####[facility] [place] [address], [place] Chloride [Moles/Vol] 111 mmol/L High 98-107 [facility] Comment on above: Order Comment: No: D o not add to previous draw Performed By: #### 0 0071, 16046 ####[facility] [place] [address], [place] Chloride [Moles/Vol] 111 mmol/L High 98-107 [facility] Comment on above: Order Comment: No: D o not add to previous draw Performed By: #### 0 0071, 14019 ####[facility] [place] [address], [place] CO2 [Moles/Vol] 21 mmol/L Normal 21-31 [facility] Comment on above: Order Comment: No: D o not add to previous draw Performed By: #### 0 0071, 35466 ####[facility] [facility] [address], [facility] CO2 [Moles/Vol] 21 mmol/L Normal 21-31 [facility] Comment on above: Order Comment: No: D o not add to previous draw Performed By: #### 0 0071, 72563 ####[facility] [facility] [address], [facility] Creatinine [Mass/Vol] 0.99 mg/dL Normal 0.70-1.30 [facility] Comment on above: Order Comment: No: D o not add to previous draw Performed By: #### 0 0071, 69986 ####[facility] [facility] [address], [facility] Creatinine [Mass/Vol] 0.90 mg/dL Normal 0.70-1.30 [facility] Comment on above: Order Comment: No: D o not add to previous draw Performed By: #### 0 0071, 23307 ####[facility] [facility] [address], [facility] GFR/1.73 sq M.predicted among blacks MDRD (S/P/Bld) [Vol rate/Area] mL/min/{1.73_m2} Normal >60 [facility] Comment on above: Order Comment: No: D o not add to previous draw Result Comment: Calc ulation may not be valid for patients over 70 years Performed By: #### 0 0071, 72101 ####[facility] [facility] [address], [facility] GFR/1.73 sq M.predicted among blacks MDRD (S/P/Bld) [Vol rate/Area] mL/min/{1.73_m2} Normal >60 [facility] Comment on above: Order Comment: No: D o not add to previous draw Result Comment: Calc ulation may not be valid for patients over 70 years Performed By: #### 0 0071, 01132 ####[facility] [place] [address], [place] GFR/1.73 sq M.predicted among non-blacks MDRD (S/P/Bld) [Vol rate/Area] mL/min/{1.73_m2} Normal >60 [facility] Comment on above: Order Comment: No: D o not add to previous draw Result Comment: Calc ulation may not be valid for patients over 70 years Performed By: #### 0 0071, 57380 ####[facility] [place] [address], [place] GFR/1.73 sq M.predicted among non-blacks MDRD (S/P/Bld) [Vol rate/Area] mL/min/{1.73_m2} Normal >60 [facility] Comment on above: Order Comment: No: D o not add to previous draw Result Comment: Calc ulation may not be valid for patients over 70 years Performed By: #### 0 0071, 68860 ####[facility] [facility] [address], [place] Glucose [Mass/Vol] 133 mg/dL High 70-100 [facility] Comment on above: Order Comment: No: D o not add to previous draw Performed By: #### 0 0071, 97285 ####[facility] [place] [address], [place] Glucose [Mass/Vol] 164 mg/dL High 70-100 [facility] Comment on above: Order Comment: No: D o not add to previous draw Performed By: #### 0 0071, 39408 ####[facility] [place] [address], [place] Potassium [Moles/Vol] 3.8 mmol/L Normal 3.5-5.1 [facility] Comment on above: Order Comment: No: D o not add to previous draw Performed By: #### 0 0071, 01520 ####[facility] [place] [address], [facility] Potassium [Moles/Vol] 3.7 mmol/L Normal 3.5-5.1 [facility] Comment on above: Order Comment: No: D o not add to previous draw Performed By: #### 0 0071, 34574 ####[facility] [place] [address], [place] Sodium [Moles/Vol] 140 mmol/L Normal 136-145 [facility] Comment on above: Order Comment: No: D o not add to previous draw Performed By: #### 0 0071, 32038 ####[facility] [place] [address], [place] Sodium [Moles/Vol] 140 mmol/L Normal 136-145 [facility] Comment on above: Order Comment: No: D o not add to previous draw Performed By: #### 0 0071, 57887 ####[facility] [place] [address], [place] Urea nitrogen [Mass/Vol] 20 mg/dL Normal 7-25 [facility] Comment on above: Order Comment: No: D o not add to previous draw Performed By: #### 0 0071, 91487 ####[facility] [place] [address], [place] Urea nitrogen [Mass/Vol] 21 mg/dL Normal 7-25 [facility] Comment on above: Order Comment: No: D o not add to previous draw Performed By: #### 0 0071, 51107 ####[facility] [place] [address], [place] CBC W/DIFFon 10-29-2020 ABS BASOPHILS CANCELED Normal 0.0-0.2 The [facility] Comment on above: Result Comment: The released value 0.0 was canceled by KNG on 10/29/2020 22:20 Performed By: #### 5 0103 ####[facility] ABS EOSINOPHILS CANCELED Normal 0.0-0.5 The [facility] Comment on above: Result Comment: The released value 0.0 was canceled by KNG on 10/29/2020 22:20 Performed By: #### 5 0103 ####[facility] ABS IMM GRANS 0.1 10*3/uL Normal 0.0-0.2 The [facility] Comment on above: Order Comment: No: D o not add to previous draw Performed By: #### 5 0103 ####[facility] ABS IMM GRANS CANCELED Normal The [facility] Comment on above: Performed By: #### 5 0103 ####[facility] ABS IMM GRANS 0.1 10*3/uL Normal 0.0-0.2 The [facility] Comment on above: Order Comment: This order is a replacement of the rejected order with accession [id number]. Performed By: #### 5 0103 ####[facility] ABS LYMPHS CANCELED Normal 1.2-4.0 The [facility] Comment on above: Result Comment: The released value 8.3 was canceled by KNG on 10/29/2020 22:20 Performed By: #### 5 0103 ####[facility] ABS MONOCYTES CANCELED Normal 0.1-1.0 The [facility] Comment on above: Result Comment: The released value 0.2 was canceled by KNG on 10/29/2020 22:20 Performed By: #### 5 0103 ####[facility] [place] [address], [facility] ABS NEUTROPHILS 4.4 10*3/uL Normal 1.6-7.6 The [facility] Comment on above: Order Comment: No: D o not add to previous draw Performed By: #### 5 0103 ####[facility] [place] [address], [facility] ABS NEUTROPHILS CANCELED Normal 1.6-7.6 The [facility] Comment on above: Result Comment: The released value 12.9 was canceled by KNG on 10/29/2020 22:20 Performed By: #### 5 0103 ####[facility] [place] [address], [facility] ABS NEUTROPHILS 4.8 10*3/uL Normal 1.6-7.6 The [facility] Comment on above: Order Comment: This order is a replacement of the rejected order with accession [id number]. Performed By: #### 5 0103 ####[facility] [place] [address], [facility] ABSOLUTE BANDS CANCELED Normal The [facility] Comment on above: Performed By: #### 5 0103 ####[facility] [place] [address], [facility] ACANTHOCYTES CANCELED Normal The [facility] Comment on above: Performed By: #### 5 0103 ####[facility] [place] [address], [facility] ANISO CANCELED Normal The [facility] Comment on above: Performed By: #### 5 0103 ####[facility] [facility] [place] [address], [facility] ATYPICAL CELLS CANCELED Normal The [facility] Comment on above: Performed By: #### 5 0103 ####[facility] [place] [address], [facility] BANDS CANCELED Normal The [facility] Comment on above: Performed By: #### 5 0103 ####[facility] BASO CANCELED Normal 0.0-1.0 The [facility] Comment on above: Result Comment: The released value 0.0 was canceled by KNRegina on 10/29/2020 22:20 Performed By: #### 5 0103 ####[facility] [facility].[address] BASOPHIL STIPPL CANCELED Normal The [facility] Comment on above: Performed By: #### 5 0103 ####[facility] [facility].[address] Basophils (Bld) [#/Vol] 0.1 10*3/uL Normal 0.0-0.2 The [facility] Comment on above: Order Comment: No: D o not add to previous draw Performed By: #### 5 0103 ####[facility] [facility] [place] [address], [facility] Basophils (Bld) [#/Vol] 0.0 10*3/uL Normal 0.0-0.2 The [facility] Comment on above: Order Comment: This order is a replacement of the rejected order with accession [id number]. Performed By: #### 5 0103 ####[facility] [place] [address], [facility] Basophils/100 WBC (Bld) 0.3 % Normal 0.0-1.0 The [facility] Comment on above: Order Comment: No: D o not add to previous draw Performed By: #### 5 0103 ####[facility] [facility] [place] [address], [facility] Basophils/100 WBC (Bld) 0.2 % Normal 0.0-1.0 [facility] Comment on above: Order Comment: This order is a replacement of the rejected order with accession [id number]. Performed By: #### 5 0103 ####[facility] BLASTS CANCELED Normal The [facility] Comment on above: Performed By: #### 5 0103 ####[facility] [facility].[address] PARAMJIT CELLS CANCELED Normal [facility] Comment on above: Performed By: #### 5 0103 ####[facility] [facility].[address] DOHLE BODIES CANCELED Normal The [facility] Comment on above: Performed By: #### 5 0103 ####[facility] [facility].[address] ELLIPTOCYTES CANCELED Normal [facility] Comment on above: Performed By: #### 5 0103 ####[facility] [facility].[address] EOS CANCELED Normal 0.0-6.0 The [facility] Comment on above: Result Comment: The released value 0.0 was canceled by KNRegina on 10/29/2020 22:20 Performed By: #### 5 0103 ####[facility] [facility] [place] [address], [facility] Eosinophils (Bld) [#/Vol] 0.1 10*3/uL Normal 0.0-0.5 The [facility] Comment on above: Order Comment: No: D o not add to previous draw Performed By: #### 5 0103 ####[facility] [place] [address], [facility] Eosinophils (Bld) [#/Vol] 0.0 10*3/uL Normal 0.0-0.5 [facility] Comment on above: Order Comment: This order is a replacement of the rejected order with accession [id number]. Performed By: #### 5 0103 ####[facility] [place] [address], [facility] Eosinophils/100 WBC (Bld) 0.3 % Normal 0.0-6.0 [facility] Comment on above: Order Comment: No: D o not add to previous draw Performed By: #### 5 0103 ####[facility] [facility] [place] [address], [facility] Eosinophils/100 WBC (Bld) 0.2 % Normal 0.0-6.0 [facility] Comment on above: Order Comment: This order is a replacement of the rejected order with accession [id number]. Performed By: #### 5 0103 ####[facility] [place] [address], [facility] Erythrocyte distribution width (RBC) [Ratio] 15.4 % High 11.5-15.0 The [facility] Comment on above: Order Comment: No: D o not add to previous draw Performed By: #### 5 0103 ####[facility] [place] [place] [address], [facility] Erythrocyte distribution width (RBC) [Ratio] 15.0 % Normal 11.5-15.0 [facility] Comment on above: Order Comment: This order is a replacement of the rejected order with accession [id number]. Performed By: #### 5 0103 ####[facility] [place] [address], [place] GIANT PLATELETS CANCELED Normal The [facility] Comment on above: Result Comment: The released value Present was canceled by KNG on 10/29/2020 22:20 Performed By: #### 5 0103 ####[facility] [place] [address], [place] GIANT PLATELETS Present Normal The [facility] Comment on above: Order Comment: This order is a replacement of the rejected order with accession [id number]. Performed By: #### 5 0103 ####[facility] [place] [address], [place] HCT CANCELED Normal 39.0-50.0 [facility] Comment on above: Result Comment: The released value 35.5 was canceled by KNG on 10/29/2020 22:20 Performed By: #### 5 0103 ####[facility] [place] [address], [place] HELMET CELLS CANCELED Normal [facility] Comment on above: Performed By: #### 5 0103 ####[place] [address] [place] [address], [facility] Hematocrit (Bld) [Volume fraction] 33.8 % Low 39.0-50.0 The [facility] Comment on above: Order Comment: No: D o not add to previous draw Performed By: #### 5 0103 ####[facility] [place] [address], [place] Hematocrit (Bld) [Volume fraction] 35.5 % Low 39.0-50.0 The [facility] Comment on above: Order Comment: This order is a replacement of the rejected order with accession [id number]. Performed By: #### 5 0103 ####[facility] [place] [address], [place] Hemoglobin (Bld) [Mass/Vol] 9.8 g/dL Low 13.0-17.0 The [facility] Comment on above: Order Comment: No: D o not add to previous draw Performed By: #### 5 0103 ####[facility] [facility] Hemoglobin (Bld) [Mass/Vol] 11.0 g/dL Low 13.0-17.0 The [facility] Comment on above: Order Comment: This order is a replacement of the rejected order with accession [id number]. Performed By: #### 5 0103 ####[facility] [facility].[address] HGB CANCELED Normal 13.0-17.0 [facility] Comment on above: Result Comment: The released value 11.0 was canceled by KNRegina on 10/29/2020 22:20 Performed By: #### 5 0103 ####[facility] [facility].[address] MAN JOLLY BODIES CANCELED Normal The [facility] Comment on above: Performed By: #### 5 0103 ####[facility] [facility].[address] HYPERSEG NEUTROPHILS CANCELED Normal [facility] Comment on above: Performed By: #### 5 0103 ####[facility] [facility].[address] HYPO CANCELED Normal [facility] Comment on above: Performed By: #### 5 0103 ####[facility] [facility] [place] [address], [facility] IL CANCELED Normal The [facility] Comment on above: Performed By: #### 5 0103 ####[facility] [place] [address], [facility] IMM PLATELET FRAC CANCELED Normal The [facility] Comment on above: Performed By: #### 5 0103 ####[facility] [place] [address], [facility] IMMATURE GRANS 0.3 % Normal 0.0-1.0 The [facility] Comment on above: Order Comment: No: D o not add to previous draw Performed By: #### 5 0103 ####[facility] [facility] [place] [address], [facility] IMMATURE GRANS CANCELED Normal The [facility] Comment on above: Performed By: #### 5 0103 ####[facility] [facility] [place] [address], [facility] IMMATURE GRANS 0.3 % Normal 0.0-1.0 The [facility] Comment on above: Order Comment: This order is a replacement of the rejected order with accession [id number]. Performed By: #### 5 0103 ####[facility] [facility] [place] [address], [facility] Lymphocytes (Bld) [#/Vol] 14.8 10*3/uL High 1.2-4.0 The [facility] Comment on above: Order Comment: No: D o not add to previous draw Performed By: #### 5 0103 ####[facility] [facility] [place] [address], [facility] Lymphocytes (Bld) [#/Vol] 16.0 10*3/uL High 1.2-4.0 The [facility] Comment on above: Order Comment: This order is a replacement of the rejected order with accession [id number]. Performed By: #### 5 0103 ####[facility] [place] [address], [facility] Lymphocytes/100 WBC (Bld) 75.4 % High 20.0-45.0 The [facility] Comment on above: Order Comment: No: D o not add to previous draw Performed By: #### 5 0103 ####[facility] [facility].[address] Lymphocytes/100 WBC (Bld) 74.9 % High 20.0-45.0 The [facility] Comment on above: Order Comment: This order is a replacement of the rejected order with accession [id number]. Performed By: #### 5 0103 ####[facility] [place] [address] LYMPHS CANCELED Normal 20.0-45.0 [facility] Comment on above: Result Comment: The released value 38.6 was canceled by KNG on 10/29/2020 22:20 Performed By: #### 5 0103 ####[facility] [facility].[address] MACRO CANCELED Normal The [facility] Comment on above: Performed By: #### 5 0103 ####[facility] [facility].[address] MCH CANCELED Normal 27.0-33.0 [facility] Comment on above: Result Comment: The released value 31.9 was canceled by KNG on 10/29/2020 22:20 Performed By: #### 5 0103 ####[facility] [place] [address].[address] MCH (RBC) [Entitic mass] 31.8 pg Normal 27.0-33.0 [facility] Comment on above: Order Comment: No: D o not add to previous draw Performed By: #### 5 0103 ####[facility] [place] [address].[place] [address], [facility] MCH (RBC) [Entitic mass] 31.9 pg Normal 27.0-33.0 [facility] Comment on above: Order Comment: This order is a replacement of the rejected order with accession [id number]. Performed By: #### 5 0103 ####[facility] [facility].[address] MCHC CANCELED Normal 32.0-35.0 [facility] Comment on above: Result Comment: The released value 31.0 was canceled by KNG on 10/29/2020 22:20 Performed By: #### 5 0103 ####[facility] [facility] [place] [address], [facility] MCHC (RBC) [Mass/Vol] 29.0 g/dL Low 32.0-35.0 [facility] Comment on above: Order Comment: No: D o not add to previous draw Performed By: #### 5 0103 ####[facility] [facility] [place] [address], [facility] MCHC (RBC) [Mass/Vol] 31.0 g/dL Low 32.0-35.0 [facility] Comment on above: Order Comment: This order is a replacement of the rejected order with accession [id number]. Performed By: #### 5 0103 ####[facility] [facility] [place] [address], [facility] MCV CANCELED Normal 82.0-98.0 [facility] Comment on above: Result Comment: The released value 102.9 was canceled by KNG on 10/29/2020 22:20 Performed By: #### 5 0103 ####[facility] [facility] [place] [address], [facility] MCV (RBC) [Entitic vol] 109.7 fL High 82.0-98.0 [facility] Comment on above: Order Comment: No: D o not add to previous draw Performed By: #### 5 0103 ####[facility] [place], [place] [address]E.[place] [address], [place] MCV (RBC) [Entitic vol] 102.9 fL High 82.0-98.0 [facility] Comment on above: Order Comment: This order is a replacement of the rejected order with accession [id number]. Performed By: #### 5 0103 ####[facility] METAMYELO CANCELED Normal [facility] Comment on above: Performed By: #### 5 0103 ####[facility] MICRO CANCELED Normal [facility] Comment on above: Performed By: #### 5 0103 ####[facility] Monocytes (Bld) [#/Vol] 0.3 10*3/uL Normal 0.1-1.0 [facility] Comment on above: Order Comment: No: D o not add to previous draw Performed By: #### 5 0103 ####[facility] Monocytes (Bld) [#/Vol] 0.4 10*3/uL Normal 0.1-1.0 [facility] Comment on above: Order Comment: This order is a replacement of the rejected order with accession [id number]. Performed By: #### 5 3 ####[facility] MONOS 1.4 % Low 5.0-12.0 [facility] Comment on above: Order Comment: No: D o not add to previous draw Performed By: #### 5 3 ####[facility] MONOS CANCELED Normal 5.0-12.0 [facility] Comment on above: Result Comment: The released value 1.0 was canceled by MELIDA on 10/29/2020 22:20 Performed By: #### 5 0103 ####[facility] [place] [address], [facility] MONOS 1.9 % Low 5.0-12.0 [facility] Comment on above: Order Comment: This order is a replacement of the rejected order with accession [id number]. Performed By: #### 5 0103 ####[facility] [place] [address], [facility] MYELOS CANCELED Normal The [facility] Comment on above: Performed By: #### 5 0103 ####[place] [address] [place] [address], [facility] NEUTROPHILS CANCELED Normal 40.0-72.0 [facility] Comment on above: Result Comment: The released value 60.4 was canceled by KNG on 10/29/2020 22:20 Performed By: #### 5 0103 ####[facility] [place] [address], [facility] Neutrophils/100 WBC (Bld) 22.3 % Low 40.0-72.0 [facility] Comment on above: Order Comment: No: D o not add to previous draw Performed By: #### 5 0103 ####[place] [address] [place] [address], [facility] Neutrophils/100 WBC (Bld) 22.5 % Low 40.0-72.0 The [facility] Comment on above: Order Comment: This order is a replacement of the rejected order with accession [id number]. Performed By: #### 5 3 ####[facility] [facility] [place] [address], [facility] NRBC CANCELED Normal 0-0 [facility] Comment on above: Result Comment: The released value 0 was canceled by KNG on 10/29/2020 22:20 Performed By: #### 5 3 ####[facility] [place] [address], [facility] NRBC SCAN CANCELED Normal [facility] Comment on above: Performed By: #### 5 0103 ####[facility] [facility] [address], [place] Nucleated RBC/100 WBC (Bld) [Ratio] 0 % Normal 0-0 [facility] Comment on above: Order Comment: No: D o not add to previous draw Performed By: #### 5 0103 ####[facility] [place] [address], [facility] OTHER 1 Lymphocytosis and ma ny smudge cells. Normal The [facility] Comment on above: Order Comment: No: D o not add to previous draw Result Comment: Resu lt changed by CHIKI on 10/31/2020 12:14. The previous value wasPreliminary report; verified report to follow. Performed By: #### 5 0103 ####[facility] [facility] [address], [facility] OTHER 1 CANCELED Normal [facility] Comment on above: Performed By: #### 5 0103 ####[facility] [facility] [address], [facility] OTHER 2 Checked by Erika Martinez M.D. Normal The [facility] Comment on above: Order Comment: No: D o not add to previous draw Result Comment: This result added by CHIKI on 10/31/2020 12:14. Performed By: #### 5 3 ####[facility] [facility] [address], [facility] OTHER 2 CANCELED Normal The [facility] Comment on above: Performed By: #### 5 0103 ####[facility] [place] [address], [place] OTHER 3 CANCELED Normal [facility] Comment on above: Performed By: #### 5 0103 ####[facility] [place] [address], [place] OTHER 4 CANCELED Normal [facility] Comment on above: Performed By: #### 5 0103 ####[facility] [place] [address], [place] OVALOCYTES CANCELED Normal [facility] Comment on above: Performed By: #### 5 0103 ####[facility] [place] [address], [place] PAPPENHEIMER BODIES CANCELED Normal The [facility] Comment on above: Performed By: #### 5 0103 ####[facility] [place] [address], [facility] PARASITES CANCELED Normal [facility] Comment on above: Performed By: #### 5 0103 ####[facility] [place] [address], [facility] PLAT CNT 125 10*3/uL Low 150-400 [facility] Comment on above: Order Comment: No: D o not add to previous draw Performed By: #### 5 0103 ####[facility] [place] [address], [facility] PLAT CNT CANCELED Normal 150-400 [facility] Comment on above: Result Comment: The released value 139 was canceled by MELIDA on 10/29/2020 22:20 Performed By: #### 5 0103 ####[facility] [place] [address], [facility] PLAT CNT 139 10*3/uL Low 150-400 [facility] Comment on above: Order Comment: This order is a replacement of the rejected order with accession [id number]. Performed By: #### 5 0103 ####[facility] [place] [address], [facility] PLAT ESTIMATE CANCELED Normal The [facility] Comment on above: Performed By: #### 5 0103 ####[facility] [place] [address], [facility] POIK CANCELED Normal The [facility] Comment on above: Performed By: #### 5 0103 ####[facility] [place] [address], [facility] POLY CANCELED Normal The [facility] Comment on above: Performed By: #### 5 0103 ####[facility] [place] [address], [facility] PROMYELO CANCELED Normal The [facility] Comment on above: Performed By: #### 5 0103 ####[facility] [place] [address], [facility] RBC CANCELED Normal 4.20-5.70 [facility] Comment on above: Result Comment: The released value 3.45 was canceled by KNG on 10/29/2020 22:20 Performed By: #### 5 0103 ####[facility] [facility] [place] [address], [facility] RBC (Bld) [#/Vol] 3.08 10*6/uL Low 4.20-5.70 The [facility] Comment on above: Order Comment: No: D o not add to previous draw Performed By: #### 5 0103 ####[facility] [place] [address], [facility] RBC (Bld) [#/Vol] 3.45 10*6/uL Low 4.20-5.70 The [facility] Comment on above: Order Comment: This order is a replacement of the rejected order with accession [id number]. Performed By: #### 5 0103 ####[facility] [place] [address], [facility] RDW CANCELED Normal 11.5-15.0 The [facility] Comment on above: Result Comment: The released value 15.0 was canceled by KNG on 10/29/2020 22:20 Performed By: #### 5 0103 ####[facility] [place] [address], [place] REACTIVE LYMPHS CANCELED Normal The [facility] Comment on above: Performed By: #### 5 0103 ####[facility] [place] [address], [facility] ROULEAUX CANCELED Normal The [facility] Comment on above: Performed By: #### 5 0103 ####[facility] [place] [address], [facility] SCHISTOCYTES CANCELED Normal The [facility] Comment on above: Performed By: #### 5 0103 ####[facility] [place] [address], [facility] SEGS CANCELED Normal The [facility] Comment on above: Performed By: #### 5 0103 ####[facility] [place] [address], [place] SICKLE CELLS CANCELED Normal [facility] Comment on above: Performed By: #### 5 0103 ####[facility] [place] [address], [place] SMUDGE CELLS MANY PRESENT Normal The [facility] Comment on above: Order Comment: No: D o not add to previous draw Performed By: #### 5 0103 ####[facility] [place] [address], [place] SMUDGE CELLS CANCELED Normal [facility] Comment on above: Result Comment: The released value Many was canceled by KNG on 10/29/2020 22:20 Performed By: #### 3 ####[facility] [place] [address], [facility] SMUDGE CELLS Many Normal The [facility] Comment on above: Order Comment: This order is a replacement of the rejected order with accession [id number]. Performed By: #### 3 ####[facility] [place] [address], [facility] SPHEROCYTES CANCELED Normal [facility] Comment on above: Performed By: #### 3 ####[facility] [place] [address], [facility] UNIT STOMATOCYTES CANCELED Normal [facility] Comment on above: Performed By: #### 3 ####[facility] [place] [address], [facility] TARGET CELLS CANCELED Normal [facility] Comment on above: Performed By: #### 3 ####[facility] [place] [address], [facility] TEAR DROP CELLS CANCELED Normal [facility] Comment on above: Performed By: #### 5 3 ####[facility] [place] [address], [facility] TOXIC GRANULATION CANCELED Normal [facility] Comment on above: Performed By: #### 3 ####[facility] [place] [address], [place] VAC NEUTROPHIL CANCELED Normal The [facility] Comment on above: Performed By: #### 5 0103 ####[facility] [place] [address], [facility] WBC CANCELED Normal 4.00-10.60 [facility] Comment on above: Result Comment: The released value 21.41 was canceled by KNG on 10/29/2020 22:20 Performed By: #### 5 0103 ####[facility] [facility] [place] [address], [facility] WBC (Bld) [#/Vol] 19.59 10*3/uL High 4.00-10.60 [facility] Comment on above: Order Comment: No: D o not add to previous draw Performed By: #### 5 0103 ####[facility] [place] [address], [facility] WBC (Bld) [#/Vol] 21.41 10*3/uL High 4.00-10.60 [facility] Comment on above: Order Comment: This order is a replacement of the rejected order with accession [id number]. Performed By: #### 5 0103 ####[facility] [facility] [place] [address], [facility] CT ABDOMEN AND PELVIS WO CON TRASTon 10-29-2020 CT ABDOMEN AND PELVIS WO CONTRAST Normal [facility] Comment on above: Order Comment: Other , s/p sigmoid colectomy d/t perforated diverticulum. Severe abdominal pain. R/O further abdominal pathology. MAGNESIUM BLOODon 10-29-2020 Magnesium [Mass/Vol] 2.0 mg/dL Normal 1.9-2.7 [facility] Comment on above: Order Comment: No: D o not add to previous draw Performed By: #### 0 0071, 78774 ####[facility] [facility] [address], [facility] Magnesium [Mass/Vol] 2.1 mg/dL Normal 1.9-2.7 [facility] Comment on above: Order Comment: No: D o not add to previous draw Performed By: #### 0 0071, 06341 ####[facility] [place] [address], [facility] POC GLUCOSE LABon 10-29-2020 Glucose [Mass/Vol] 131 mg/dL High 70-100 [facility] Comment on above: Performed By: #### 8 5499 ####[facility] [facility] [address], [place] Glucose [Mass/Vol] 135 mg/dL High 70-100 [facility] Comment on above: Performed By: #### 8 5499 ####[facility] [facility] [place] [address], [place] Glucose [Mass/Vol] 177 mg/dL High 70-100 [facility] Comment on above: Performed By: #### 8 5499 ####[facility] [facility] [place] [address], [place] Glucose [Mass/Vol] 172 mg/dL High 70-100 [facility] Comment on above: Performed By: #### 8 5499 ####[facility] [facility] [address], [facility] BASIC METABOLIC PANELon 02-2 -2020 Calcium [Mass/Vol] 7.5 mg/dL Low 8.6-10.3 [facility] Comment on above: Order Comment: No: D o not add to previous draw Performed By: #### 0 0071, 19602 ####[facility] [facility] [address], [place] Chloride [Moles/Vol] 105 mmol/L Normal 98-107 [facility] Comment on above: Order Comment: No: D o not add to previous draw Performed By: #### 0 0071, 64831 ####[facility] [facility] [address], [place] CO2 [Moles/Vol] 24 mmol/L Normal 21-31 [facility] Comment on above: Order Comment: No: D o not add to previous draw Performed By: #### 0 0071, 00550 ####[facility] [place] [address], [facility] Creatinine [Mass/Vol] 0.97 mg/dL Normal 0.70-1.30 [facility] Comment on above: Order Comment: No: D o not add to previous draw Performed By: #### 0 0071, 60991 ####[facility] [place] [address], [facility] GFR/1.73 sq M.predicted among blacks MDRD (S/P/Bld) [Vol rate/Area] mL/min/{1.73_m2} Normal >60 [facility] Comment on above: Order Comment: No: D o not add to previous draw Result Comment: Calc ulation may not be valid for patients over 70 years Performed By: #### 0 0071, 69087 ####[facility] [facility] [place] [address], [facility] GFR/1.73 sq M.predicted among non-blacks MDRD (S/P/Bld) [Vol rate/Area] mL/min/{1.73_m2} Normal >60 [facility] Comment on above: Order Comment: No: D o not add to previous draw Result Comment: Calc ulation may not be valid for patients over 70 years Performed By: #### 0 0071, 68114 ####[facility] [place] [address], [facility] Glucose [Mass/Vol] 206 mg/dL High 70-100 [facility] Comment on above: Order Comment: No: D o not add to previous draw Performed By: #### 0 0071, 49441 ####[facility] [place] [address], [facility] Potassium [Moles/Vol] 3.4 mmol/L Low 3.5-5.1 [facility] Comment on above: Order Comment: No: D o not add to previous draw Performed By: #### 0 0071, 94388 ####[facility] [facility].[address] Sodium [Moles/Vol] 136 mmol/L Normal 136-145 [facility] Comment on above: Order Comment: No: D o not add to previous draw Performed By: #### 0 0071, 02689 ####[facility] [facility].[address] Urea nitrogen [Mass/Vol] 17 mg/dL Normal 7-25 [facility] Comment on above: Order Comment: No: D o not add to previous draw Performed By: #### 0 0071, 23049 ####[facility] CBC COMPLETE BLOOD COUNTon 0 10-28-2020 Erythrocyte distribution width (RBC) [Ratio] 15.1 % High 11.5-15.0 [facility] Comment on above: Order Comment: No: D o not add to previous draw Performed By: #### 5 0608 ####[facility] [facility].[address] Hematocrit (Bld) [Volume fraction] 36.2 % Low 39.0-50.0 [facility] Comment on above: Order Comment: No: D o not add to previous draw Performed By: #### 5 0608 ####[facility] [facility].[address] Hemoglobin (Bld) [Mass/Vol] 11.6 g/dL Low 13.0-17.0 [facility] Comment on above: Order Comment: No: D o not add to previous draw Performed By: #### 5 0608 ####[facility] [facility].[address] MCH (RBC) [Entitic mass] 31.8 pg Normal 27.0-33.0 [facility] Comment on above: Order Comment: No: D o not add to previous draw Performed By: #### 5 0608 ####[facility] [place] [address], [facility] MCHC (RBC) [Mass/Vol] 32.0 g/dL Normal 32.0-35.0 [facility] Comment on above: Order Comment: No: D o not add to previous draw Performed By: #### 5 0608 ####[facility] [facility] [place] [address], [facility] MCV (RBC) [Entitic vol] 99.2 fL High 82.0-98.0 [facility] Comment on above: Order Comment: No: D o not add to previous draw Performed By: #### 5 0608 ####[place] [address] [facility].[address] Nucleated RBC/100 WBC (Bld) [Ratio] 0 % Normal 0-0 [facility] Comment on above: Order Comment: No: D o not add to previous draw Performed By: #### 5 0608 ####[facility] [facility] [place] [address], [facility] PLAT CNT 133 10*3/uL Low 150-400 [facility] Comment on above: Order Comment: No: D o not add to previous draw Performed By: #### 5 0608 ####[address] [place] [address], [facility] RBC (Bld) [#/Vol] 3.65 10*6/uL Low 4.20-5.70 [facility] Comment on above: Order Comment: No: D o not add to previous draw Performed By: #### 5 0608 ####[address] [place] [address], [facility] WBC (Bld) [#/Vol] 27.62 10*3/uL High 4.00-10.60 [facility] Comment on above: Order Comment: No: D o not add to previous draw Performed By: #### 5 0608 ####[facility] [place] [address], [place] MAGNESIUM BLOODon 10-28-2020 Magnesium [Mass/Vol] 2.0 mg/dL Normal 1.9-2.7 [facility] Comment on above: Order Comment: No: D o not add to previous draw Performed By: #### 0 0071, 42215 ####[facility] [place] [address], [place] Operative Reporton Operative Report Normal [facility] POC GLUCOSE LABon 10-28-2020 Glucose [Mass/Vol] 222 mg/dL High 70-100 [facility] Comment on above: Performed By: #### 8 5499 ####[facility] [place] [address], [place] Glucose [Mass/Vol] 182 mg/dL High 70-100 [facility] Comment on above: Performed By: #### 8 5499 ####[facility] [place] [address], [place] Glucose [Mass/Vol] 166 mg/dL High 70-100 [facility] Comment on above: Performed By: #### 8 5499 ####[facility] [place] [address], [place] Glucose [Mass/Vol] 128 mg/dL High 70-100 [facility] Comment on above: Performed By: #### 8 5499 ####[facility] [place] [address], [place] Glucose [Mass/Vol] 141 mg/dL High 70-100 [facility] Comment on above: Performed By: #### 8 5499 ####[facility] [place] [address], [place] APTTon 10-27-2020 aPTT Coag (Bld) [Time] 33.4 s Normal 25.0-35.0 [facility] Comment on above: Order Comment: No: [...] THIS PURPOSE. Performed By: #### 5 7307, 68122 ####[facility] [facility].[address] ARTERIAL BLOOD GAS W/COOXon 10-27-2020 BASE EXCESS -2 mmol/L Normal -2-3 [facility] Comment on above: Performed By: #### 7 006, 83918, 65265, 29620 ####[place] [address] [facility].[address] COHB 1.3 % Normal 0.0-1.5 [facility] Comment on above: Performed By: #### 7 006, 40178, 62629, 35360 ####[place] [address] [facility].[address] HCO3 (Bld) [Moles/Vol] 22 mmol/L Normal 21-28 [facility] Comment on above: Performed By: #### 7 006, 43497, 36245, 22887 ####[place] [address] [facility].[address] METHB 0.6 % Normal 0.0-1.5 [facility] Comment on above: Performed By: #### 7 006, 17578, 35117, 33546 ####[facility] [facility] MODALITY OR Normal [facility] Comment on above: Performed By: #### 7 006, 99234, 24999, 14412 ####[facility] [place] [address], [facility] Oxygen (Bld) [Partial pressure] 172 mm[Hg] Critically high 83-108 [facility] Comment on above: Performed By: #### 7 7, 82324, 14713, 54822 ####[facility] [place] [address], [facility] Oxygen saturation in Blood 96.9 % Normal 94.0-97.0 [facility] Comment on above: Performed By: #### 7 66, 73624, 80517, 57493 ####[facility] [place] [address], [facility] PCO2 33 mmHg Low 35-45 [facility] Comment on above: Performed By: #### 7 66, 07844, 91840, 24264 ####[facility] [place] [address], [facility] pH (Bld) 7.43 [pH] Normal 7.35-7.45 [facility] Comment on above: Performed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
--- NOTE | 2024-02-21 18:04 | ECG_ITS ---
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
--- NOTE | 2024-02-21 18:04 | XR_ITS ---
The [address] [address] Patient Name: RISHI DE LEON MRN: [id number] date: 1940 Sex: M Assigned Patient Location: ER Current Patient Location: ED.MAIN Accession/Order Number: [id number] Exam Date: 02/21/2024 18:17 Report Date: 02/21/2024 20:20 At the request of: ANASTACIO MELTON Procedure: XR chest 1V EXAM: XR chest 1V HISTORY: abdominal pain COMPARISON: Chest x-ray 04/08/2021. CT abdomen pelvis including the lung bases 02/21/2024. TECHNIQUE: AP portable upright chest x-ray. FINDINGS: Lungs appear clear although basilar markings accentuated by poor inspiration and difficult to assess due to overlying soft tissues. Unchanged. No definite infiltrate or edema. Heart size accentuated by magnification. No pleural effusion or pneumothorax. XR/XR chest 1V IMPRESSION: Negative chest x-ray. Electronically authenticated by: THERESA CHANDLER Date: 02/21/2024 20:20
--- NOTE | 2024-02-21 18:04 | ED.GENADUL1 ---
Documented by User: ZIA Resendiz 02/21/24 21:58 HPI HPI - General Adult General Chief complaint: Abdominal Pain Stated complaint: ABDOMINAL PAIN Time Seen by Provider: 02/21/24 17:50 Source: patient Mode of arrival: walk-in Limitations: no limitations History of Present Illness HPI narrative: 84-year-old male Who presents to the ER with his daughter for evaluation of left lower quadrant abdominal pain. Patient has a pertinent history of perforated bowel. Patient had a colostomy and reversal of the colostomy 1 year ago at the [facility]. Patient reports being discharged from that practice after the physician there left. He has had no issues until the past week where he has had intermittent sharp pain in the left lower quadrant. Patient aware that he has developed hernias since his operations and was advised to come to the ER if his abdomen became more painful. He denies any known history of Crohn's or colitis. He does take methotrexate. Patient denies need for pain medication at this time but notes in the last 2 days his symptoms have worsened with increased intensity. He denies any nausea or vomiting. Patient reports compliance with his daily home medications. He denies any fevers or chills or dysuria. Patient denies any chest pain or shortness of breath. Radiation: Reports non-radiation and abdomen Related Data Home Medications ?Medication ?Instructions ?Recorded ?Confirmed gabapentin 300 mg capsule 300 mg PO Q12H 10/24/23 02/21/24 methotrexate sodium 2.5 mg tablet 2.5 mg PO .weekly 10/24/23 02/21/24 sitagliptin phosphate 100 mg 100 mg PO DAILY 10/24/23 02/21/24 tablet (Januvia) baclofen 5 mg tablet 5 mg PO TID 12/03/23 02/21/24 glipizide 10 mg tablet 10 mg PO DAILY 12/03/23 02/21/24 multivitamin-ferrous 1 tab PO DAILY 12/03/23 02/21/24 fumarate-folic acid 18 mg-400 mcg tablet (Centrum Complete) simvastatin 40 mg tablet 40 mg PO DAILY 12/03/23 02/21/24 folic acid 1 mg tablet 1 mg PO DAILY 02/21/24 02/21/24 melatonin 10 mg capsule 10 mg PO DAILY 02/21/24 02/21/24 methotrexate sodium 2.5 mg tablet 2.5 mg PO QWEEK 02/21/24 02/21/24 Previous Rx's ?Medication ?Instructions ?Recorded nirmatrelvir 300 mg (150 mg See Rx Instructions PO .COMPLEX 10/24/23 x2)-ritonavir 100 mg tablet,dose #30 ea pack (Paxlovid) Allergies Allergy/AdvReac Type Severity Reaction Status Date / Time codeine AdvReac Intermediate Verified 02/21/24 17:53 morphine AdvReac Intermediate Verified 02/21/24 17:53 Opioid HPI Opioid Management Most Recent Opioid Data: Last Pain Scale 7 02/21/24 21:06 Review of Systems ROS Constitutional Denies: fever or chills Eyes Denies: change in vision Ears, nose, mouth, and throat Denies: throat pain or neck pain Cardiovascular Denies: chest pain, palpitations or edema Respiratory Denies: shortness of breath or cough Gastrointestinal Reports: abdominal pain (Left lower quadrant, Last bowel movement yesterday); Denies: nausea, change in bowel habits or painful bowel movements Genitourinary Denies: painful urination Musculoskeletal Denies: back pain or neck pain Integumentary/Breast Denies: rash Neurological Denies: headache PFSH PFSH Social History Smoking status: Never smoker Exam Narrative Exam Narrative: Nurses notes and vital signs reviewed and patient is not hypoxic. General: The patient appears well and in no apparent distress. Patient is resting comfortably on cart. Skin: Warm, dry, no pallor noted. Head: Normocephalic, atraumatic Neck: Supple, trachea mid-line, no tenderness, no lymphadenopathy Eye: Pupils are equal, round and reactive to light, EOMI Ears, Nose, Mouth, and Throat: External exam unremarkable. Cardiovascular: Regular Rate and Rhythm. Respiratory: Patient is in no distress, no accessory muscle use, lungs are clear to auscultation, no wheezing, rales or rhonchi. Chest Wall: no tenderness Back: non-tender, no CVA tenderness Musculoskeletal: normal ROM, no tenderness, no swelling GI: Normal bowel sounds, Mild tenderness left lower quadrant. No visible hernia but palpable defects in the abdominal wall with prior surgical scars noted., no masses appreciated. No rebound, guarding, or rigidity noted. Neurological: A&O x4 Psychiatric: Cooperative Constitutional Vital Signs, click to edit/add: Last Vital Signs Temp 98.0 F 02/21/24 17:53 Pulse 63 02/21/24 21:30 Resp 17 02/21/24 21:30 BP 129/57 02/21/24 21:30 Pulse Ox 99 02/21/24 21:30 Course Vital Signs Vital signs: Vital Signs Temperature 98.0 F 02/21/24 17:53 Pulse Rate 90 02/21/24 17:53 Respiratory Rate 16 02/21/24 17:53 Blood Pressure 146/71 H 02/21/24 17:53 Pulse Oximetry 96 02/21/24 17:53 Temperature 98.0 F 02/21/24 17:53 Pulse Rate 63 02/21/24 21:30 Respiratory Rate 17 02/21/24 21:30 Blood Pressure 129/57 02/21/24 21:30 Pulse Oximetry 99 02/21/24 21:30 Medical Decision Making MDM Narrative Medical decision making narrative: Discussed patient's age, length of symptoms and prior surgical history. Given tenderness recommend CT of the abdomen and pelvis with oral and IV contrast for further evaluation. Lab test pending. Patient declines any need for pain medication today notes symptoms are currently tolerable. He will let us know if he needs any pain medication. Patient had some increase in pain, given Toradol 15 mg IV, Levsin, Pepcid. We are awaiting his CT result. There is a delay as not all the images were initially pushed through. Radiology has been notified. Lab Data Lab results reviewed: Yes I reviewed the patient's lab results Labs: Lab Results 02/21/24 02/21/24 Range/Units 18:05 19:34 WBC 16.7 H (4.0-11.0) 10^3/uL RBC 3.92 L (4.70-6.10) 10^6/uL Hgb 12.6 L (14.0-18.0) g/dL Hct 39.5 L (42.0-54.0) % MCV 100.8 H (80.0-94.0) fL MCH 32.1 (25.9-34.0) pg MCHC 31.9 (29.9-35.2) g/dL RDW 15.6 H (11.0-15.0) % Plt Count 128 L (150-450) 10^3/uL MPV 12.4 (9.5-13.5) fL Seg Neuts % (Manual) 28.0 Lymphocytes % (Manual) 71.0 H (20.5-60.0) % Monocytes % (Manual) 1.0 L (1.7-12.0) % Eosinophils % (Manual) 0.0 L (0.9-7.0) % Basophils % (Manual) 0.0 L (0.2-2.0) % Neutrophils # (Manual) 4.67 (1.4-6.5) 10^3/uL Lymphocytes # (Manual) 11.85 H (1.20-3.80) 10^3/uL Monocytes # (Manual) 0.16 L (0.30-0.80) 10^3/uL Eosinophils # (Manual) 0.00 (0.00-0.70) 10^3/uL Basophils # (Manual) 0.00 (0.00-0.10) 10^3/uL Smudge Cells Seen Sodium 141 (136-145) mmol/L Potassium 4.2 (3.5-5.1) mmol/L Chloride 107 (98-107) mmol/L Carbon Dioxide 27.3 (21.0-32.0) mmol/L Anion Gap 10.9 BUN 21.0 H (7.0-18.0) mg/dL Creatinine 1.00 (0.70-1.30) mg/dL Est GFR ( Amer) >60 (>=60) Est GFR (Non-Af Amer) >60 (>=60) BUN/Creatinine Ratio 21.0 Glucose 240 H (74-106) mg/dL Lactate 1.9 (0.4-2.0) mmol/L Calcium 8.6 (8.5-10.1) mg/dL Total Bilirubin 0.6 (0.2-1.0) mg/dL AST 10 L (15-37) U/L ALT 20 (16-63) U/L Alkaline Phosphatase 87 (46-116) U/L Troponin I High Sens 9.7 (4.0-76.1) pg/mL Total Protein 6.3 L (6.4-8.2) g/dL Albumin 3.6 (3.4-5.0) g/dL Globulin 2.7 g/dL Albumin/Globulin Ratio 1.3 Lipase 25.0 (16.0-77.0) U/L Urine Color Lt. yellow (YELLOW) Urine Clarity Clear (CLEAR) Urine pH 7.5 (5.0-9.0) Ur Specific [place] 1.010 (1.005-1.025) Urine Protein Negative (NEG/TRACE) mg/dL Urine Glucose (UA) 100 A (NEGATIVE) mg/dL Urine Ketones Negative (NEGATIVE) mg/dL Urine Occult Blood Negative (NEGATIVE) Urine Nitrite Negative (NEGATIVE) Urine Bilirubin Negative (NEGATIVE) Urine Urobilinogen 1.0 (0.2-1.0) EU/dL Ur Leukocyte Esterase Negative (NEGATIVE) Imaging Data Chest x-ray: Radiologist's impression: ITS Impressions Chest X-Ray 02/21/24 18:04 IMPRESSION: Negative chest x-ray. Electronically authenticated by: THERESA CHANDLER Date: 02/21/2024 20:20 Abdomen/Pelvis CT 02/21/24 18:05 IMPRESSION: 1. No acute abnormality within the upper abdomen and pelvis. 2. Additional nonemergent findings as detailed above. Electronically authenticated by: IBAN ROCHA Date: 02/21/2024 22:12 Abdominal x-ray: Radiologist's impression: ITS Impressions Chest X-Ray 02/21/24 18:04 IMPRESSION: Negative chest x-ray. Electronically authenticated by: THERESA CHANDLER Date: 02/21/2024 20:20 Abdomen/Pelvis CT 02/21/24 18:05 IMPRESSION: 1. No acute abnormality within the upper abdomen and pelvis. 2. Additional nonemergent findings as detailed above. Electronically authenticated by: IBAN ROCHA Date: 02/21/2024 22:12 ECG Data Attestation: I personally reviewed and interpreted this ECG as follows: Interpretation: EKG interpretation: Emergency Department physician interpretation, normal sinus rhythm 78 , no ectopy , no ST segment elevation, normal axis. Discharge Plan Discharge Stand Alone Forms: Portal Instructions Chief Complaint: Abdominal Pain Clinical Impression: Abdominal pain, Hernia, ventral Patient Disposition: Home, Self-Care Prescriptions / Home Meds: No Action gabapentin 300 mg capsule 300 mg PO Q12H methotrexate sodium 2.5 mg tablet 2.5 mg PO .weekly Januvia 100 mg tablet 100 mg PO DAILY Paxlovid 300 mg (150 mg x 2)-100 mg tablets,dose pack See Rx Instructions .ROUTE .COMPLEX Qty: 30 0RF Rx Instructions: take TWO 150 mg tablets of nirmatrelvir with ONE 100 mg tablet of ritonavir twice daily for 5 days Centrum Complete 18-400 mg-mcg tablet 1 tab PO DAILY glipizide 10 mg tablet 10 mg PO DAILY simvastatin 40 mg tablet 40 mg PO DAILY baclofen 5 mg tablet 5 mg PO TID folic acid 1 mg tablet 1 mg PO DAILY methotrexate sodium 2.5 mg tablet 2.5 mg PO QWEEK melatonin 10 mg capsule 10 mg PO DAILY Print Language: Swedish Instructions: Abdominal Pain (ED), Incisional Hernia (DC) Referrals: Shaikh Barrera MD [Primary Care Provider] - 1 week Documented by User: Reddy Mera MD 02/21/24 22:48 HPI HPI - General Adult General Chief complaint: Abdominal Pain Stated complaint: ABDOMINAL PAIN Time Seen by Provider: 02/21/24 17:50 Related Data Home Medications ?Medication ?Instructions ?Recorded ?Confirmed gabapentin 300 mg capsule 300 mg PO Q12H 10/24/23 02/21/24 methotrexate sodium 2.5 mg tablet 2.5 mg PO .weekly 10/24/23 02/21/24 sitagliptin phosphate 100 mg 100 mg PO DAILY 10/24/23 02/21/24 tablet (Januvia) baclofen 5 mg tablet 5 mg PO TID 12/03/23 02/21/24 glipizide 10 mg tablet 10 mg PO DAILY 12/03/23 02/21/24 multivitamin-ferrous 1 tab PO DAILY 12/03/23 02/21/24 fumarate-folic acid 18 mg-400 mcg tablet (Centrum Complete) simvastatin 40 mg tablet 40 mg PO DAILY 12/03/23 02/21/24 folic acid 1 mg tablet 1 mg PO DAILY 02/21/24 02/21/24 melatonin 10 mg capsule 10 mg PO DAILY 02/21/24 02/21/24 methotrexate sodium 2.5 mg tablet 2.5 mg PO QWEEK 02/21/24 02/21/24 Previous Rx's ?Medication ?Instructions ?Recorded nirmatrelvir 300 mg (150 mg See Rx Instructions PO .COMPLEX 10/24/23 x2)-ritonavir 100 mg tablet,dose #30 ea pack (Paxlovid) Allergies Allergy/AdvReac Type Severity Reaction Status Date / Time codeine AdvReac Intermediate Verified 02/21/24 17:53 morphine AdvReac Intermediate Verified 02/21/24 17:53 Opioid HPI Opioid Management Most Recent Opioid Data: Last Pain Scale 7 02/21/24 21:06 PFSH PFS Social History Smoking status: Never smoker Exam Constitutional Vital Signs, click to edit/add: Last Vital Signs Temp 98.0 F 02/21/24 17:53 Pulse 63 02/21/24 21:30 Resp 17 02/21/24 21:30 BP 129/57 02/21/24 21:30 Pulse Ox 99 02/21/24 21:30 Course Vital Signs Vital signs: Vital Signs Temperature 98.0 F 02/21/24 17:53 Pulse Rate 90 02/21/24 17:53 Respiratory Rate 16 02/21/24 17:53 Blood Pressure 146/71 H 02/21/24 17:53 Pulse Oximetry 96 02/21/24 17:53 Temperature 98.0 F 02/21/24 17:53 Pulse Rate 63 02/21/24 21:30 Respiratory Rate 17 02/21/24 21:30 Blood Pressure 129/57 02/21/24 21:30 Pulse Oximetry 99 02/21/24 21:30 Medical Decision Making [facility] Narrative Medical decision making narrative: Discussed patient's age, length of symptoms and prior surgical history. Given tenderness recommend CT of the abdomen and pelvis with oral and IV contrast for further evaluation. Lab test pending. Patient declines any need for pain medication today notes symptoms are currently tolerable. He will let us know if he needs any pain medication. Patient had some increase in pain, given Toradol 15 mg IV, Levsin, Pepcid. We are awaiting his CT result. There is a delay as not all the images were initially pushed through. Radiology has been notified. care transferred at change of shift. CT pending. CT without acute findings. Did note ventral hernias x 2 non obstructive. Patient re examined and periumbilical hernia nontender. mild tenderness LLQ hernia. No guarding. Patient's pain improved after Toradol. Discharged home with Toradol and advised to follow up with Gen. Surgery does have leukocytosis likely pain related as clinically no evidence of infection Lab Data Labs: Lab Results 02/21/24 02/21/24 Range/Units 18:05 19:34 WBC 16.7 H (4.0-11.0) 10^3/uL RBC 3.92 L (4.70-6.10) 10^6/uL Hgb 12.6 L (14.0-18.0) g/dL Hct 39.5 L (42.0-54.0) % MCV 100.8 H (80.0-94.0) fL MCH 32.1 (25.9-34.0) pg MCHC 31.9 (29.9-35.2) g/dL RDW 15.6 H (11.0-15.0) % Plt Count 128 L (150-450) 10^3/uL MPV 12.4 (9.5-13.5) fL Seg Neuts % (Manual) 28.0 Lymphocytes % (Manual) 71.0 H (20.5-60.0) % Monocytes % (Manual) 1.0 L (1.7-12.0) % Eosinophils % (Manual) 0.0 L (0.9-7.0) % Basophils % (Manual) 0.0 L (0.2-2.0) % Neutrophils # (Manual) 4.67 (1.4-6.5) 10^3/uL Lymphocytes # (Manual) 11.85 H (1.20-3.80) 10^3/uL Monocytes # (Manual) 0.16 L (0.30-0.80) 10^3/uL Eosinophils # (Manual) 0.00 (0.00-0.70) 10^3/uL Basophils # (Manual) 0.00 (0.00-0.10) 10^3/uL Smudge Cells Seen Sodium 141 (136-145) mmol/L Potassium 4.2 (3.5-5.1) mmol/L Chloride 107 (98-107) mmol/L Carbon Dioxide 27.3 (21.0-32.0) mmol/L Anion Gap 10.9 BUN 21.0 H (7.0-18.0) mg/dL Creatinine 1.00 (0.70-1.30) mg/dL Est GFR ( Amer) >60 (>=60) Est GFR (Non-Af Amer) >60 (>=60) BUN/Creatinine Ratio 21.0 Glucose 240 H (74-106) mg/dL Lactate 1.9 (0.4-2.0) mmol/L Calcium 8.6 (8.5-10.1) mg/dL Total Bilirubin 0.6 (0.2-1.0) mg/dL AST 10 L (15-37) U/L ALT 20 (16-63) U/L Alkaline Phosphatase 87 (46-116) U/L Troponin I High Sens 9.7 (4.0-76.1) pg/mL Total Protein 6.3 L (6.4-8.2) g/dL Albumin 3.6 (3.4-5.0) g/dL Globulin 2.7 g/dL Albumin/Globulin Ratio 1.3 Lipase 25.0 (16.0-77.0) U/L Urine Color Lt. yellow (YELLOW) Urine Clarity Clear (CLEAR) Urine pH 7.5 (5.0-9.0) Ur Specific [place] 1.010 (1.005-1.025) Urine Protein Negative (NEG/TRACE) mg/dL Urine Glucose (UA) 100 A (NEGATIVE) mg/dL Urine Ketones Negative (NEGATIVE) mg/dL Urine Occult Blood Negative (NEGATIVE) Urine Nitrite Negative (NEGATIVE) Urine Bilirubin Negative (NEGATIVE) Urine Urobilinogen 1.0 (0.2-1.0) EU/dL Ur Leukocyte Esterase Negative (NEGATIVE) Imaging Data Chest x-ray: Radiologist's impression: ITS Impressions Chest X-Ray 02/21/24 18:04 IMPRESSION: Negative chest x-ray. Electronically authenticated by: THERESA CHANDLER Date: 02/21/2024 20:20 Abdomen/Pelvis CT 02/21/24 18:05 IMPRESSION: 1. No acute abnormality within the upper abdomen and pelvis. 2. Additional nonemergent findings as detailed above. Electronically authenticated by: IBAN ROCHA Date: 02/21/2024 22:12 Abdominal x-ray: Radiologist's impression: ITS Impressions Chest X-Ray 02/21/24 18:04 IMPRESSION: Negative chest x-ray. Electronically authenticated by: THERESA CHANDLER Date: 02/21/2024 20:20 Abdomen/Pelvis CT 02/21/24 18:05 IMPRESSION: 1. No acute abnormality within the upper abdomen and pelvis. 2. Additional nonemergent findings as detailed above. Electronically authenticated by: IBAN ROCHA Date: 02/21/2024 22:12 Discharge Plan Discharge Stand Alone Forms: Portal Instructions Chief Complaint: Abdominal Pain Clinical Impression: Abdominal pain, Hernia, ventral Patient Disposition: Home, Self-Care Prescriptions / Home Meds: No Action gabapentin 300 mg capsule 300 mg PO Q12H methotrexate sodium 2.5 mg tablet 2.5 mg PO .weekly Januvia 100 mg tablet 100 mg PO DAILY Paxlovid 300 mg (150 mg x 2)-100 mg tablets,dose pack See Rx Instructions .ROUTE .COMPLEX Qty: 30 0RF Rx Instructions: take TWO 150 mg tablets of nirmatrelvir with ONE 100 mg tablet of ritonavir twice daily for 5 days Centrum Complete 18-400 mg-mcg tablet 1 tab PO DAILY glipizide 10 mg tablet 10 mg PO DAILY simvastatin 40 mg tablet 40 mg PO DAILY baclofen 5 mg tablet 5 mg PO TID folic acid 1 mg tablet 1 mg PO DAILY methotrexate sodium 2.5 mg tablet 2.5 mg PO QWEEK melatonin 10 mg capsule 10 mg PO DAILY Print Language: Swedish Instructions: Abdominal Pain (ED), Incisional Hernia (DC) Referrals: Shaikh Barrera MD [Primary Care Provider] - 1 week
--- NOTE | 2024-02-21 18:05 | CT_ITS ---
The [address] [address] Patient Name: RISHI DE LEON MRN: [id number] date: 1940 Sex: M Assigned Patient Location: ER Current Patient Location: ER Accession/Order Number: [id number] Exam Date: 02/21/2024 18:52 Report Date: 02/21/2024 22:12 At the request of: ANASTACIO MELTON Procedure: CT abdomen pelvis w con PROCEDURE: CT abdomen pelvis w con CLINICAL INDICATION: 84 years Male Abdominal pain left lower quadrant COMPARISONS: CT abdomen pelvis dated 04/08/2021. TECHNIQUE: CT imaging of the abdomen and pelvis was performed following intravenous administration of 75 mL of Omnipaque 300. Coronal and sagittal reformations were created. Individualized dose optimization technique was used for the procedure performed. FINDINGS: Limited visualization of lung bases is unremarkable. There is no pleural or pericardial effusion. There are scattered coronary artery calcifications. Subcentimeter foci within the liver and kidneys are too small to adequately characterize. Gallbladder is surgically absent. Spleen, pancreas and adrenal glands are normal. Bowel loops are normal in course and caliber, there is no obstruction or free air. Surgical sutures are noted within the distal sigmoid colon. There is a 4.5 cm supraumbilical fat-containing ventral hernia. Another 2.4 cm left mid abdominal fat-containing hernia is also seen. There is moderate to severe aortoiliac atherosclerotic disease. There is no ascites or adenopathy. There is moderate facet arthropathy within the lower lumbar spine. CT/CT abdomen pelvis w con IMPRESSION: 1. No acute abnormality within the upper abdomen and pelvis. 2. Additional nonemergent findings as detailed above. Electronically authenticated by: IBAN ROCHA Date: 02/21/2024 22:12
[2024-02-21 18:15] LABS: Hematocrit 39.5 % (42.0-54.0); Hemoglobin 12.6 g/dL (14.0-18.0); Mean Corpuscular HGB Conc 31.9 g/dL (29.9-35.2); Mean Corpuscular Hemoglobin 32.1 pg (25.9-34.0); Mean Corpuscular Volume 100.8 fL (80.0-94.0); Mean Platelet Volume 12.4 fL (9.5-13.5); Platelet Count 128 10^3/uL (150-450); Red Blood Count 3.92 10^6/uL (4.70-6.10); Red Cell Distribution Width 15.6 % (11.0-15.0); White Blood Count 16.7 10^3/uL (4.0-11.0)
[2024-02-21] MEDS: 0.9 % SODIUM CHLORIDE 1,000 ML 999 ML IV (18:21)
[2024-02-21 18:33] LABS: Alanine Aminotransferase 20 U/L (16-63); Albumin Globulin Ratio 1.3; Albumin Level 3.6 g/dL (3.4-5.0); Alkaline Phosphatase 87 U/L (46-116); Anion Gap 10.9; Aspartate Amino Transferase 10 U/L (15-37); Bilirubin Total 0.6 mg/dL (0.2-1.0); Calcium 8.6 mg/dL (8.5-10.1); Carbon Dioxide 27.3 mmol/L (21.0-32.0); Chloride 107 mmol/L (98-107); Estimated GFR (African America >60 (>=60); Estimated GFR (Non-African Ame >60 (>=60); Globulin 2.7 g/dL; Glucose 240 mg/dL (74-106); Lactate/Lactic Acid 1.9 mmol/L (0.4-2.0); Potassium 4.2 mmol/L (3.5-5.1); Sodium 141 mmol/L (136-145); Total Protein 6.3 g/dL (6.4-8.2); Troponin I High Sensitivity 9.7 pg/mL (4.0-76.1)
[2024-02-21 18:37] LABS: Lymphocytes Absolute Manual 11.85 10^3/uL (1.20-3.80); Monocytes Absolute Manual 0.16 10^3/uL (0.30-0.80); Segmented Neut Absolute Manual 4.67 10^3/uL (1.4-6.5)
--- NOTE | 2024-02-21 18:37 | PC.NURSE ---
imaging at bedside at this time. pt denies current needs at this time.
[2024-02-21 18:38] LABS: Smudge Cells SEEN
--- NOTE | 2024-02-21 18:51 | PC.NURSE ---
pt to CT via stretcher at this time.
[2024-02-21 19:41] LABS: Bilirubin Urine NEGATIVE (NEGATIVE); Blood Urine NEGATIVE (NEGATIVE); Clarity Urine CLEAR (CLEAR); Color Urine LT. YELLOW (YELLOW); Glucose Urine UA 100 mg/dL (NEGATIVE); Ketones Urine NEGATIVE (NEGATIVE); Leukocyte Esterase Urine NEGATIVE (NEGATIVE); Nitrite Urine NEGATIVE (NEGATIVE); Protein Urine NEGATIVE (NEG/TRACE); pH Urine 7.5 (5.0-9.0)
[2024-02-21 19:42] LABS: Urine Microscopic Indicated NO
[2024-02-21] MEDS: KETOROLAC TROMETHAMINE 30 MG/ML VIAL 15 MG IVP (21:06)
[2024-02-21] MEDS: FAMOTIDINE/PF 20 MG/2 ML VIAL IV (21:06)
[2024-02-21] MEDS: HYOSCYAMINE SULFATE 0.125 MG TAB.SUBL SL (21:06)
[2024-02-21] MEDS: KETOROLAC TROMETHAMINE 10 MG TABLET 20 MG PO (23:02)
== END 2024-02-21 23:12 | disposition home or self-care (01) ==
PROVIDERS: Personal Emergency Response Attendant; Emergency Provider Internal Medicine; PCP Internal Medicine
DX: K43.9 Ventral hernia without obstruction or gangrene (principal); R10.9 Unspecified abdominal pain; Z79.899 Other long term (current) drug therapy
CPT/HCPCS: 36415; 71045; 74177; 80053; 81003; 83605; 83690; 84484; 85007; 85027; 93005; 96374; 96375; 99285; J1885; Q9967

== ENCOUNTER 2024-07-09 13:18 | Outpatient (OUT) | payer OTHER, SELFPAY ==
--- NOTE | 2024-07-09 13:46 | P.CN_ITS ---
Consult Note: HPI Data of Consult Patient: known to practice within the last 3 years Requesting Physician: Samia Joyner NP Primary Care Provider: LEANDER MALLORY Consult Narrative Reason for consult: neck pain Narrative: Eitan Hurtado a pleasant 84 year old male presents for evaluation and management of neck pain and LUE numbness tingling and weakness. Longstanding hx of neck pain greater than 1 year, pt has attended 6 weeks of formal PT without benefit earlier this year and has continued to engage in HEP as tolerated greater than 6 weeks without benefit. over the last 12 months has noticed increase in radicular pain and weakness of LUE. Has trialed tylenol without benefit, balcofen 5mg TID PRN, gabapentin 300mg BID which makes him agitated and does not help with his pain per pt. Pt denies falls. Is diabetic but does not regularly check his blood sugar. cc:: CC: Samia Joyner NP Review of Systems ROS Status of ROS 10 or more systems reviewed and unremark able except as noted in history and below Musculoskeletal Reports: neck pain and extremity pain PFSH PFSH Social History Smoking status: Never smoker Meds Home Medications and Allergies Home Medications ?Medication ?Instructions ?Recorded ?Confirmed ?Type gabapentin 300 mg capsule 300 mg PO Q12H 10/24/23 02/21/24 History methotrexate sodium 2.5 mg tablet 2.5 mg PO .weekly 10/24/23 02/21/24 History nirmatrelvir 300 mg (150 mg See Rx Instructions PO .COMPLEX 10/24/23 Rx x2)-ritonavir 100 mg tablet,dose #30 ea pack (Paxlovid) sitagliptin phosphate 100 mg 100 mg PO DAILY 10/24/23 02/21/24 History tablet (Januvia) baclofen 5 mg tablet 5 mg PO TID 12/03/23 02/21/24 History glipizide 10 mg tablet 10 mg PO DAILY 12/03/23 02/21/24 History multivitamin-ferrous 1 tab PO DAILY 12/03/23 02/21/24 History fumarate-folic acid 18 mg-400 mcg tablet (Centrum Complete) simvastatin 40 mg tablet 40 mg PO DAILY 12/03/23 02/21/24 History folic acid 1 mg tablet 1 mg PO DAILY 02/21/24 02/21/24 History melatonin 10 mg capsule 10 mg PO DAILY 02/21/24 02/21/24 History methotrexate sodium 2.5 mg tablet 2.5 mg PO QWEEK 02/21/24 02/21/24 History Allergies Allergy/AdvReac Type Severity Reaction Status Date / Time codeine AdvReac Intermediate Verified 02/21/24 17:53 morphine AdvReac Intermediate Verified 02/21/24 17:53 Exam Constitutional Documenting provider has reviewed patient's vital signs: yes Common normals: no apparent distress, oriented x3, healthy appearing, alert and well nourished General appearance: cooperative HENMT Common normals: normocephalic, hearing grossly normal bilaterally and moist oral mucous membranes Head and scalp: normocephalic Eye Common normals: PERRL Pupil: PERRL Neck & C-Spine Common normals: full ROM General: normal visual inspection Cervical spine: cervical ROM abnormal, pain with cervical ROM, cervical spine tenderness, paracervical muscle tenderness and paracervical muscle spasm Other: positive spurlings decreased sensation to left C5,6,7 strength 4/5 in BUE pain over C2-5 facet joints Chest Common normals: inspection of chest normal Respiratory Common normals: normal respiratory effort, no retractions and no use of accessory muscles Neuro Common normals: oriented x3, CN's II-XII intact bilaterally, moves all extremities, no focal motor deficits, no sensory deficits noted and deep tendon reflexes 2+ bilaterally Sensorium/orientation: alert Motor exam: strength 5/5 throughout and no movement abnormalities noted Psych Common normals: mental status grossly normal, thought process normal, cooperative, affect normal, speech normal and activity/motor behavior normal Speech: normal speech Thought process: normal thought process Results Additional Findings Additional findings: If on a controlled substance or opioids, I have checked an [place] report on this patient and there are no aberrancies noted in the prescribing history.??If on a controlled substance or opioid a drug screen was completed and reviewed within the last year, and if there has not been a drug screen completed we ordered one today to monitor higher risk, state monitored pain medication use. As part of providing excellent, safe, comprehensive care, the following was completed at our patient's visit: 1. A medication reconciliation and review to ensure accurate knowledge of current/active medications, including asking our patients to inform us about any [id number] medications or herbal remedies/nutritional suppleme nts/alternative remedies. 2. A review to specifically ensure our patients have had annual screening for screening for depression, screening for tobacco use, and screening for unhealthy alcohol use. For concerning screenings had a discussion with the patient, provided patient education, and recommended follow-up with primary care provider when appropriate. If patient noted with a risk of falling, they received education on strength, gait, and balance training to prevent future risk of falling. Assessment and Plan Assessment and Plan (1) Cervical spondylosis: (2) Cervical radiculopathy: (3) Degenerative disc disease, cervical: Plan update cervical xray to assess cervical spondylosis and cervical radiculopathy, likely DDD if MRI shows cervical DDD or significant degenerative changes we will order a cervical MRI without contrast to further evaluate cervical DDD and radiculopathy unresponsive to above listed therapies with side effects from gabapentin and ineffectiveness I would recommend patient switch to pregabalin 75mg BID, pt would like to discuss with his PCP and declining medication management from our office at this time continue HEP as tolerated f/u to review imaging
== END 2024-07-09 13:19 | disposition home or self-care (01) ==
LOC: PM 13:19
PROVIDERS: Visit Provider Nurse Practitioner
DX: M47.22 Other spondylosis with radiculopathy, cervical region (principal); M50.10 Cervical disc disorder with radiculopathy, unspecified cervical region
CPT/HCPCS: 72050; G0463

== ENCOUNTER 2024-07-09 14:28 | Outpatient (OUT) | payer OTHER, SELFPAY ==
--- NOTE | 2024-07-09 14:38 | XR_ITS ---
[facility] [place] [id number] Patient Name: RISHI DE LEON MRN: [id number] date: 1940 Sex: M Assigned Patient Location: [facility] Current Patient Location: Accession/Order Number: [id number] Exam Date: 07/09/2024 14:47 Report Date: 07/13/2024 08:14 At the request of: FAN PEREZ Procedure: XR cervical spine 5V EXAMINATION: XR cervical spine 5V HISTORY: Cervical Spondylosis, Radiculopathy COMPARISON: No relevant comparison available. FINDINGS: BONES: Normal alignment with no acute fracture or spondylolisthesis. Moderate to severe diffuse degenerative spondylosis and facet osteoarthropathy DISC SPACES: Normal. No significant disc height narrowing, subluxation, or endplate abnormality. PARASPINOUS: Negative. No paraspinous abnormality is seen. OTHER: Negative. XR/XR cervical spine 5V IMPRESSION: Moderate to severe degenerative change Electronically authenticated by: KIANA RICH Date: 07/13/2024 08:14
== END 2024-07-09 14:29 | disposition home or self-care (01) ==
LOC: RAD 14:28
PROVIDERS: Visit Provider Nurse Practitioner
DX: M47.22 Other spondylosis with radiculopathy, cervical region (principal)
CPT/HCPCS: 72050

== ENCOUNTER 2024-07-29 15:56 | Outpatient (OUT) | payer OTHER, SELFPAY ==
--- NOTE | 2024-07-29 16:10 | MR_ITS ---
[address] [address] Patient Name: RISHI DE LEON MRN: [id number] date: 1940 Sex: M Assigned Patient Location: MRI Current Patient Location: Accession/Order Number: [id number] Exam Date: 07/29/2024 16:15 Report Date: 08/02/2024 12:13 At the request of: FAN PEREZ Procedure: MR cervical spine wo con EXAMINATION: MR cervical spine wo con HISTORY: CERVICAL RADICULOPATHY COMPARISON: No relevant comparison available. TECHNIQUE: A variety of imaging planes and parameters were utilized for visualization of suspected pathology without and/or with intravenous Dotarem contrast based on examination type. FINDINGS: CRANIOCERVICAL AREA: Normal foramen magnum with no Chiari malformation. PARASPINAL AREA: Normal with no visible mass. BONES: [T1 and T2 signal within the dens (which is visible on the recent cervical spine radiographs) suggesting sclerosis. No edema to suggest acute fracture. Normal height and alignment of the cervical vertebral bodies. CORD: Narrowing posterior to C5-C6. No abnormal signal within the cord.. CERVICAL DISC LEVELS: C2-C3: Early degenerative disc disease is present without focal protrusion or neural impingement. C3-C4: Moderate foramen narrowing bilaterally without significant disc bulging, disc height reduction or central canal narrowing. Bilateral uncovertebral joint spurring and moderate right, mild left, degenerative facet arthropathy. C4-C5: Mild foramen narrowing bilaterally. No significant disc bulging, disc height reduction, or central canal narrowing. Moderate right, mild left degenerative facet arthropathy. C5-C6: Marked central canal narrowing. Mild-moderate foramen narrowing bilaterally. Mild diffuse disc bulging without disc height reduction. Moderate right, mild left degenerative facet arthropathy. C6-C7: Mild foramen narrowing bilaterally without significant disc bulging, disc height reduction, or central canal narrowing. Mild degenerative facet arthropathy bilaterally. C7-T1:. Early degenerative disc disease is present without focal protrusion or neural impingement. MR/MR cervical spine wo con IMPRESSION: 1. C5-C6 marked central canal narrowing secondary to mild/moderate diffuse disc bulging and degenerative facet arthropathy. 2. Multilevel mild-moderate foramen narrowing secondary to degenerative disc disease and facet arthropathy. Electronically authenticated by: ALYSHA HERNANDEZ Date: 08/02/2024 12:13
--- OUTSIDE RECORDS SUMMARY | 2024-07-29 16:12 | XMS_ITS | CCD ---
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 [facility] CLIA [id number] [address] [place] [address] Anion gap [Moles/Vol] 9 mmol/L Normal 9-18 [facility] Comment on above: Order Comment: Speci men Type: BLOOD SPECIMEN Ordering Facility: [facility] Address: [address] [place] [address] Performed By: #### 3 084-1, 2531-0, #### [facility] CLIA [id number] [address] [place] [address] AST [Catalytic activity/Vol] 16 U/L Normal 14-40 [facility] Comment on above: Order Comment: Speci men Type: BLOOD SPECIMEN Ordering Facility: [facility] Address: [address] [place] [address] Performed By: #### 3 084-1, 2531-0, #### [facility] CLIA [id number] [address] [place] [address] Bilirubin [Mass/Vol] 0.6 mg/dL Normal 0.2-1.3 [facility] Comment on above: Order Comment: Speci men Type: BLOOD SPECIMEN Ordering Facility: [facility] Address: [address] [place] [address] Performed By: #### 3 084-1, 2531-0, #### [facility] CLIA [id number] [address] [place] [address] Calcium [Mass/Vol] 10.0 mg/dL Normal 8.5-10.2 [facility] Comment on above: Order Comment: Speci men Type: BLOOD SPECIMEN Ordering Facility: [facility] Address: [address] [place] [address] Performed By: #### 3 084-1, 2532-0, #### [facility] CLIA [id number] [address] [place] [address] Chloride [Moles/Vol] 103 mmol/L Normal 97-105 [facility] Comment on above: Order Comment: Speci men Type: BLOOD SPECIMEN Ordering Facility: [facility] Address: [address] [place] [address] Performed By: #### 3 084-1, 2531-0, #### [facility] CLIA [id number] [address] [place] [address] 29564 CO2 [Moles/Vol] 29 mmol/L Normal 22-30 [facility] Comment on above: Order Comment: Speci men Type: BLOOD SPECIMEN Ordering Facility: [facility] Address: [address] [place] [address] Performed By: #### 3 084-1, 0, #### [facility] CLIA [id number] [address] [place] [address] 35837 Creatinine [Mass/Vol] 1.04 mg/dL Normal 0.73-1.22 [facility] Comment on above: Order Comment: Speci men Type: BLOOD SPECIMEN Ordering Facility: [facility] Address: [address] [place] [address] Performed By: #### 3 084-1, 0, #### [facility] CLIA [id number] [address] [place] [address]66 Creatinine and Glomerular filtration rate.predicted panel (S/P/Bld) 70 mL/min/1.73m??? Normal >=60 [facility] Comment on above: Order Comment: Speci men Type: BLOOD SPECIMEN Ordering Facility: [facility] Address: [address] [place] [address] Result Comment: Mandy mated Glomerular Filtration Rate [...] actual GFR. Performed By: #### 3 084-1, 0, #### [facility] CLIA [id number] [address] [place] [address] Glucose [Mass/Vol] 168 mg/dL High 74-99 [facility] Comment on above: Order Comment: Speci men Type: BLOOD SPECIMEN Ordering Facility: [facility] Address: [address] [place] [address] Result Comment: The [place] Diabetes Association (ADA) provides guidance for cutoff [...] Standards of Medical Care in Diabetes 2016, Canadian Diabetes Association. Diabetes Care. 2016.39(Suppl 1). Performed By: #### 3 084-1, 0, #### [facility] CLIA [id number] [address] [place] [address] 37178 Potassium [Moles/Vol] 4.5 mmol/L Normal 3.7-5.1 [facility] Comment on above: Order Comment: Speci men Type: BLOOD SPECIMEN Ordering Facility: [facility] Address: [address] [place] [address] Performed By: #### 3 084-1, 0, #### [facility] CLIA [id number] [address] [place] [address] 57078 Protein [Mass/Vol] 6.8 g/dL Normal 6.3-8.0 [facility] Comment on above: Order Comment: Speci men Type: BLOOD SPECIMEN Ordering Facility: [facility] Address: [address] [place] [address] Performed By: #### 3 084-1, 2531-0, #### [facility] CLIA [id number] [address] [place] [address] 76682 Sodium [Moles/Vol] 141 mmol/L Normal 136-144 [facility] Comment on above: Order Comment: Speci men Type: BLOOD SPECIMEN Ordering Facility: [facility] Address: [address] [id number] Performed By: #### 3 084-1, 2531-0, #### [facility] CLIA [id number] [address] [place] [address]34 Urea nitrogen [Mass/Vol] 23 mg/dL Normal 9-24 [facility] Comment on above: Order Comment: Speci men Type: BLOOD SPECIMEN Ordering Facility: [facility] Address: [address] [phone] Performed By: #### 3 084-1, 2531-0, #### [facility] CLIA [id number] [address] [place] [address]23 Albumin [Mass/Vol] 4.6 g/dL 3.9 - 4.9 g/dL [facility] ALP [Catalytic activity/Vol] 93 U/L 38 - 113 U/L [facility] ALT [Catalytic activity/Vol] 13 U/L 10 - 54 U/L [facility] Anion gap [Moles/Vol] 9 mmol/L 9 - 18 mmol/L [facility] AST [Catalytic activity/Vol] 16 U/L 14 - 40 U/L [facility] Bilirubin [Mass/Vol] 0.6 mg/dL 0.2 - 1 .3 mg/dL [facility] Calcium [Mass/Vol] 10.0 mg/dL 8.5 - 10. 2 mg/dL [facility] Chloride [Moles/Vol] 103 mmol/L 97 - 10 5 mmol/L [facility] CO2 [Moles/Vol] 29 mmol/L 22 - 30 mmol/L [facility] Creatinine [Mass/Vol] 1.04 mg/dL 0.73 - 1.22 mg/dL [facility] Estimated Glomerular Filtration Rate 70 mL/min/1.73m >=60 mL/min/1.73m [facility] Glucose [Mass/Vol] 168 mg/dL High 74 - 99 mg/dL [facility] Potassium [Moles/Vol] 4.5 mmol/L 3.7 - 5.1 mmol/L [facility] Protein [Mass/Vol] 6.8 g/dL 6.3 - 8.0 g/dL [facility] Sodium [Moles/Vol] 141 mmol/L 136 - 144 mmol/L [facility] Urea nitrogen [Mass/Vol] 23 mg/dL 9 - 24 mg/dL [facility] LD LACTATE DEHYDROon 023 LDH [Catalytic activity/Vol] 193 U/L 135 - 225 U/L [facility] LDH SerPl-cCncon 08-08-2023 LDH [Catalytic activity/Vol] 193 U/L Normal 135-225 [facility] Comment on above: Order Comment: Yasmin baumann Type: BLOOD SPECIMEN Ordering Facility: [facility] Address: [address] [place] [address] Result Comment: Hemo lysis present. The origin [...] indicated. Performed By: #### 3 084-1, 2532-0, 22306-0 #### [facility] CLIA [id number] [address] [place] [address] 48192 URIC ACID BLOODon 08-08-2023 Urate [Mass/Vol] 4.9 mg/dL 4.0 - 8.1 mg/dL [facility] Urate SerPl-mCncon 3 Urate [Mass/Vol] 4.9 mg/dL Normal 4.0-8.1 [facility] Comment on above: Order Comment: Yasmin baumann Type: BLOOD SPECIMEN Ordering Facility: [facility] Address: [address] [place] [address] Performed By: #### 3 084-1, 2532-0, 03738-1 #### [facility] CLIA [id number] [address] [place] [address] 33876 ECHOCARDIO M/2D COMPLETEon 1 09-30-2021 ECHOCARDIO M/2D COMPLETE Patient: EITAN DE LEON Exam Date: 07/31/2022 : 1940 Gender:M Ordering : SUZANNE [facility]EAshok [facility] Admission #: [id number] Family : Order #: [id number] CLICK HERE TO VIEW EXAM ECHOCARDIOGRAM REPORT [...] (Peak Des): 3.25 cm2, 3.25 cm2 Deceleration [place]: 0.65 m/s2 Pressure Half-Time: 897.66 ms Peak [...] Mendes M.D. on 08/01/2022 at 15:23 Normal [facility] GLYCOHEMOGLOBIN A1Con 2021 ADA RECOMMENDATION SEE BELOW Normal [facility] Comment on above: Result Comment: ADA RECOMMENDED LIMIT 4.0 - 6.0 ADA THERAPEUTIC TARGET < 7.0 ACTION SUGGESTED > 7.0 Performed By: #### A 1C #### [facility] [address] [place] [address] Dr. Estrada Carpenter Glucose [Mass/Vol] 206 mg/dL Normal [facility] Comment on above: Performed By: #### A 1C #### [facility] [address] [place] [address] Dr. Estrada Carpenter HbA1c (Bld) [Mass fraction] 8.8 % Critically high 4.5-6.2 [facility] Comment on above: Performed By: #### A 1C #### [facility] [address] [place] [address] Dr. Estrada Carpenter PROF CHEM 8 (BAS METB)on Anion gap [Moles/Vol] 10.7 mmol/L Normal [facility] Comment on above: Performed By: #### B MP #### [facility] [address] [place] [address] Dr. Estrada Carpenter Calcium [Mass/Vol] 8.8 mg/dL Normal 8.5-10.1 [facility] Comment on above: Performed By: #### B MP #### [facility] [address] [place] [address] Dr. Estrada Carpenter Chloride [Moles/Vol] 103 mmol/L Normal 98-107 [facility] Comment on above: Performed By: #### B MP #### [facility] [address] [place] [address] Dr. Estrada Carpenter CO2 [Moles/Vol] 26.4 mmol/L Normal 21.0-32.0 [facility] Comment on above: Performed By: #### B MP #### [facility] [address] [place] [address] Dr. Estrada Carpenter Creatinine [Mass/Vol] 0.89 mg/dL Normal 0.70-1.30 [facility] Comment on above: Performed By: #### B MP #### [facility] [address] [place] [address] Dr. Estrada Carpenter EGFR-AF GUAMANIAN >60 Normal >=60 [facility] Comment on above: Performed By: #### B MP #### [facility] [address] [address] [address] Estrada Carpenter EGFR-NON AF GUAMANIAN >60 Normal >=60 [facility] Comment on above: Performed By: #### B MP #### [facility] [address] [address] [address] Estrada Carpenter Glucose [Mass/Vol] 167 mg/dL Critically high 74-106 [facility] Comment on above: Performed By: #### B MP #### [facility] [address] [address] [address] Estrada Carpenter Potassium [Moles/Vol] 4.1 mmol/L Normal 3.5-5.1 [facility] Comment on above: Performed By: #### B MP #### [facility] [address] [address] [address] Estrada Carpenter Sodium [Moles/Vol] 136 mmol/L Normal 136-145 [facility] Comment on above: Performed By: #### B MP #### [facility] [address] [address] [address] Estrada Carpenter Urea nitrogen [Mass/Vol] 17.0 mg/dL Normal 7.0-18.0 [facility] Comment on above: Performed By: #### B MP #### [facility] [address] [place] [address] Dr. Estrada Carpenter Urea nitrogen/Creatinine [Mass ratio] 19.1 mg/mg Normal [facility] Comment on above: Performed By: #### B MP #### [facility] [address] [place], [place] [id number] Dr. Estrada Carpenter US abdomen limitedon 022 US abdomen limited [facility] [place] [address] Ultrasound Report Signed with Addenda Patient: Eitan De Leon MR#: [id number] : 1940 Acct:[id number] Age/Sex: 82 / M ADM Date: 05/08/22 Loc: Room: Type: [facility] Attending Dr: Shaikh Holly CARIAS Ordering [...] Zapien Jr., D.O.05/08/2022 6:39 PM Dictation Location: [facility] Addendum Dictated By: Tan Zapien Jr, DO [...] Zapien Jr., D.O.05/08/2022 5:59 PM Dictation Location: [facility] Tech: Justa Edmonds Transcribed By: DEIDRA 05/08/221758 Dictated By: Tan Zapien Jr, DO 05/08/22 174 Signed By: 05/08/221758 [facility] US scrotumon 05-08-2022 scrotum [facility] [address] [place] [id number] Ultrasound Report Signed Patient: Eitan De Leon MR#: [id number] : 1940 Acct:[id number] Age/Sex: 82 / M ADM Date: 05/08/22 Loc: UL Room: Type: [facility] Attending Dr: Shaikh Holly CARIAS Ordering [...] cm. Impression dictated by: Tan Zapien Jr., Katelynn05/08/2022 6:16 PM Dictation Location: [place] [address] Tech: Justa Edmonds Transcribed By: DEIDRA 05/08/221815 Dictated By: Tan Zapien Jr, DO 05/08/221811 Signed By: 05/08/221815 [facility] CBC W MANUAL DIFFon 01-04-20 ATYPICAL LYMPH # Normal [facility] Comment on above: Performed By: #### C KATIE #### [facility] [address] [place] [address] Dr. Estrada Carpenter ATYPICAL LYMPH % Normal [facility] Comment on above: Performed By: #### C KATIE #### [facility] [address] [place] [address] Dr. Estrada Carpenter BAND # 0.0 103/ul Normal 0.0-0.3 [facility] Comment on above: Performed By: #### C BCDEEPTI #### [facility] [address] [place] [address] Dr. Estrada Carpenter BAND % 0 % Normal 0-5 [facility] Comment on above: Performed By: #### C KATIE #### [facility] [address] [place] [address] Dr. Estrada Crapenter BASOM # 0.00 103/ul Normal 0.00-0.10 [facility] Comment on above: Performed By: #### C KATIE #### [facility] [address] [place] [address] Dr. Estrada Carpenter BASOM % 0.0 % Critically low 0.2-2.[address] [facility] Comment on above: Performed By: #### C KATIE #### [facility] [address] [place] [address] Dr. Estrada Carpenter BLAST # Normal [facility] Comment on above: Performed By: #### C KATIE #### [facility] [address] [place] [address] Dr. Estrada Carpenter BLAST % Normal [facility] Comment on above: Performed By: #### C KATIE #### [facility] [address] [place] [address] Dr. Estrada Carpenter CORRECTED WBC Normal 4.0-11.0 [facility] Comment on above: Performed By: #### C KATIE #### [facility] [address] [place] [address] Dr. Estrada Carpenter EOS # 0.00 103/ul Normal 0.00-0.70 [facility] Comment on above: Performed By: #### C KATIE #### [facility] [address] [place] [address] Dr. Estrada Carpenter EOS% 0.0 % Critically low 0.9-7.[address] [facility] Comment on above: Performed By: #### C KATIE #### [facility] [address] [place] [address] Dr. Estrada Carpenter HCT 44.2 % Normal 42.0-54.0 [facility] Comment on above: Performed By: #### C BCMAN #### [facility] [address] [address] [address] Estrada Carpenter HGB 13.8 g/dl Critically low 14.0-18.[address] [facility] Comment on above: Performed By: #### C BCMAN #### [facility] [address] [address] [address] Estrada Carpenter LYMPHM # 14.11 103/ul Critically high 1.20-3.80 [facility] Comment on above: Performed By: #### C BCMAN #### [facility] [address] [address] [address] Estrada Carpenter LYMPHM% 72.0 % Critically high 20.5-60.0 [facility] Comment on above: Performed By: #### C BCMAN #### [facility] [address] [address] [address] Estrada Carpenter MCH 31.3 pg Normal 25.9-34.0 [facility] Comment on above: Performed By: #### C BCDEEPTI #### [facility] [address] [address] [address] Estrada Carpenter MCHC 31.2 g/dl Normal 29.9-35.2 [facility] Comment on above: Performed By: #### C BCDEEPTI #### [facility] [address] [address] [address] Estrada Carpenter MCV 100.2 fL Critically high 80.0-94.0 [facility] Comment on above: Performed By: #### C BCMAN #### [facility] [address] [address] [address] Estrada Carpenter METAMYELOCYTE # Normal [facility] Comment on above: Performed By: #### C BCMAN #### [facility] [address] [place] [address] Dr. Estrada Carpenter METAMYELOCYTE % Normal [facility] Comment on above: Performed By: #### C BCMAN #### [facility] [address] [address] [address] Estrada Carpenter MONOM# 0.78 103/ul Normal 0.30-0.80 [facility] Comment on above: Performed By: #### C KATIE #### [facility] [address] [place] [address] Dr. Estrada Carpenter MONOM% 4.0 % Normal 1.7-12.0 [facility] Comment on above: Performed By: #### C KATIE #### [facility] [address] [place] [address] Dr. Estrada Carpenter MPV 12.1 fL Normal 9.5-13.5 [facility] Comment on above: Performed By: #### C KATIE #### [facility] [address] [place] [address] Dr. Estrada Carpenter MYELOCYTE # Normal [facility] Comment on above: Performed By: #### C KATIE #### [facility] [address] [place] [address] Dr. Estrada Carpenter MYELOCYTE % Normal [facility] Comment on above: Performed By: #### C KATIE #### [facility] [address] [place] [address] Dr. Estrada Carpenter NRBC Normal [facility] Comment on above: Performed By: #### C KATIE #### [facility] [address] [place] [address] Dr. Estrada Carpenter PLT 166 103/ul Normal 150-450 [facility] Comment on above: Performed By: #### C KATIE #### [facility] [address] [place] [address] Dr. Estraad Carpenter RBC 4.41 106/ul Critically low 4.70-6.10 [facility] Comment on above: Performed By: #### C KATIE #### [facility] [address] [place] [address] Dr. Estrada Carpenter RDW 14.9 % Normal 11.0-15.0 [facility] Comment on above: Performed By: #### C KATIE #### [facility] [address] [place] [address] Dr. Estrada Carpenter SEG # 4.70 103/ul Normal 1.40-6.50 [facility] Comment on above: Performed By: #### C SHLOMOMAN #### [facility] [address] [address] [address] Estrada Carpenter SEG % 24.0 % Critically low 43.0-75.[address] [facility] Comment on above: Performed By: #### C SHLOMOMAN #### [facility] [address] [address] [address] Estrada Carpenter WBC 19.6 103/ul Critically high 4.0-11.0 [facility] Comment on above: Performed By: #### C KATIE #### [facility] [address] [address] [address] Estrada Carpenter GLYCOHEMOGLOBIN A1Con 2021 ADA RECOMMENDATION SEE BELOW Normal [facility] Comment on above: Result Comment: ADA RECOMMENDED LIMIT 4.0 - 6.0 ADA THERAPEUTIC TARGET < 7.0 ACTION SUGGESTED > 7.0 Performed By: #### A 1C #### [facility] [address] [address] [address] Estrada Carpenter Glucose [Mass/Vol] 151 mg/dL Normal [facility] Comment on above: Performed By: #### A 1C #### [facility] [address] [place] [address] Dr. Estrada Carpenter HbA1c (Bld) [Mass fraction] 6.9 % Critically high 4.5-6.2 [facility] Comment on above: Performed By: #### A 1C #### [facility] [address] [address] [address] Estrada Carpenter LIPID PROFILEon 01-03-2022 CHOL-HDL RATIO NORM SEE BELOW Normal [facility] Comment on above: Result Comment: 3.3 - 4.4 LOW RISK 4.4 - 7.1 AVERAGE RISK 7.1 - 11.0 MODERATE RISK >11.0 HIGH RISK Performed By: #### C MP, LIPID #### [facility] [address] [address] [address] Estrada Carpenter Cholesterol [Mass/Vol] 158 mg/dL Normal <=200 [facility] Comment on above: Performed By: #### C MP, LIPID #### [facility] [address] [address] [address] Estrada Carpenter Cholesterol in HDL [Mass/Vol] 42 mg/dL Normal 40-60 [facility] Comment on above: Performed By: #### C MP, LIPID #### [facility] [address] [address] [address] Estrada Carpenter Cholesterol in LDL [Mass/Vol] 85.0 mg/dL Normal [facility] Comment on above: Performed By: #### C MP, LIPID #### [facility] [address] [address] [address] Estrada Carpenter Cholesterol.total/Ch olesterol in HDL [Mass ratio] 3.8 {ratio} Normal [facility] Comment on above: Performed By: #### C MP, LIPID #### [facility] [address] [address] [address] Estrada Carpenter HDL NORMAL > or = 60 mg/dl - LO W CARDIOVASCULAR RISK <40 mg/dl - HIGH CARDIOVASCULAR RISK Normal [facility] Comment on above: Performed By: #### C MP, LIPID #### [facility] [address] [address] [address] Estrada Carpenter LDL CALC NORMAL SEE BELOW Normal [facility] Comment on above: Result Comment: <100 mg/dl OPTIMAL 100 - 129 mg/dl NEAR OR ABOVE OPTIMAL 130 - 159 mg/dl BORDERLINE HIGH 160 - 189 mg/dl HIGH >190 mg/dl VERY HIGH Performed By: #### C MP, LIPID #### [facility] [address] [address] [address] Estrada Carpenter Triglyceride [Mass/Vol] 155 mg/dL Critically high <=150 [facility] Comment on above: Performed By: #### C MP, LIPID #### [facility] [address] [address] [address] Estrada Carpenter VLDL CALC 31.0 mg/dL Normal [facility] Comment on above: Performed By: #### C MP, LIPID #### [facility] [address] [place] [address] Dr. Estrada Carpenter PROF 14(COMP METB)on 022 Albumin [Mass/Vol] 3.8 g/dL Normal 3.4-5.0 [facility] Comment on above: Performed By: #### C MP, LIPID #### [facility] [address] [place] [address] Dr. Estrada Carpenter Albumin/Globulin [Mass ratio] 1.3 {ratio} Normal [facility] Comment on above: Performed By: #### C MP, LIPID #### [facility] [address] [place] [address] Dr. Estrada Carpenter ALP [Catalytic activity/Vol] 92 U/L Normal 46-116 [facility] Comment on above: Performed By: #### C MP, LIPID #### [facility] [address] [place] [address] Dr. Estrada Carpenter ALT [Catalytic activity/Vol] 26 U/L Normal 16-63 [facility] Comment on above: Performed By: #### C MP, LIPID #### [facility] [address] [place] [address] Dr. Estrada Carpenter Anion gap [Moles/Vol] 11.2 mmol/L Normal [facility] Comment on above: Performed By: #### C MP, LIPID #### [facility] [address] [place] [address] Dr. Estrada Carpenter AST [Catalytic activity/Vol] 17 U/L Normal 15-37 [facility] Comment on above: Performed By: #### C MP, LIPID #### [facility] [address] [place] [address] Dr. Estrada Carpenter Bilirubin [Mass/Vol] 0.5 mg/dL Normal 0.2-1.0 [facility] Comment on above: Performed By: #### C MP, LIPID #### [facility] [address] [place] [address] Dr. Estrada Carpenter Calcium [Mass/Vol] 8.4 mg/dL Critically low 8.5-10.1 [facility] Comment on above: Performed By: #### C MP, LIPID #### [facility] [address] [address] [address] Estrada Carpenter Chloride [Moles/Vol] 102 mmol/L Normal 98-107 [facility] Comment on above: Performed By: #### C MP, LIPID #### [facility] [address] [address] [address] Estrada Carpenter CO2 [Moles/Vol] 29.3 mmol/L Normal 21.0-32.0 [facility] Comment on above: Performed By: #### C MP, LIPID #### [facility] [address] [address] [address] Estrada Carpenter Creatinine [Mass/Vol] 0.89 mg/dL Normal 0.70-1.30 [facility] Comment on above: Performed By: #### C MP, LIPID #### [facility] [address] [place] [address] Dr. Estrada Carpenter EGFR-AF GUAMANIAN >60 Normal >=60 [facility] Comment on above: Performed By: #### C MP, LIPID #### [facility] [address] [address] [address] Estrada Carpenter EGFR-NON AF GUAMANIAN >60 Normal >=60 [facility] Comment on above: Performed By: #### C MP, LIPID #### [facility] [address] [place] [address] Dr. Estrada Carpenter Globulin (S) [Mass/Vol] 3.0 g/dL Normal [facility] Comment on above: Performed By: #### C MP, LIPID #### [facility] [address] [address] [address] Estrada Carpenter Glucose [Mass/Vol] 145 mg/dL Critically high 74-106 [facility] Comment on above: Performed By: #### C MP, LIPID #### [facility] [address] [address] [address] Estrada Carpenter Potassium [Moles/Vol] 4.5 mmol/L Normal 3.5-5.1 [facility] Comment on above: Performed By: #### C MP, LIPID #### [facility] [address] [address] [address] Estrada Carpenter Protein [Mass/Vol] 6.8 g/dL Normal 6.1-8.2 [facility] Comment on above: Performed By: #### C MP, LIPID #### [facility] [address] [address] [address] Estrada Carpenter Sodium [Moles/Vol] 138 mmol/L Normal 136-145 [facility] Comment on above: Performed By: #### C MP, LIPID #### [facility] [address] [address] [address] Estrada Carpenter Urea nitrogen [Mass/Vol] 15.0 mg/dL Normal 7.0-18.0 [facility] Comment on above: Performed By: #### C MP, LIPID #### [facility] [address] [address] [address] Estrada Carpenter Urea nitrogen/Creatinine [Mass ratio] 16.9 mg/mg Normal [facility] Comment on above: Performed By: #### C MP, LIPID #### [facility] [address] [address] [address] Estrada Carpenter BASIC METABOLIC PANELon 12-3 Calcium [Mass/Vol] 8.9 mg/dL Normal 8.6-10.3 [facility] Comment on above: Order Comment: No: D o not add to previous draw Performed By: #### 1 69, [id number] ####[facility] [place] [address], [place] Chloride [Moles/Vol] 107 mmol/L Normal 98-107 [facility] Comment on above: Order Comment: No: D o not add to previous draw Performed By: #### 1 69, 57298 ####[facility] [place] [address], [place] CO2 [Moles/Vol] 29 mmol/L Normal 21-31 [facility] Comment on above: Order Comment: No: D o not add to previous draw Performed By: #### 1 69, 73825 ####[facility] [place] [address], [place] Creatinine [Mass/Vol] 0.79 mg/dL Normal 0.70-1.30 [facility] Comment on above: Order Comment: No: D o not add to previous draw Performed By: #### 1 69, 47826 ####[facility] [place] [address], [place] GFR/1.73 sq M.predicted among blacks MDRD (S/P/Bld) [Vol rate/Area] mL/min/{1.73_m2} Normal >60 [facility] Comment on above: Order Comment: No: D o not add to previous draw Result Comment: Calc ulation may not be valid for patients over 70 years Performed By: #### 1 69, 32283 ####[facility] [facility] [place] [address], [place] GFR/1.73 sq M.predicted among non-blacks MDRD (S/P/Bld) [Vol rate/Area] mL/min/{1.73_m2} Normal >60 [facility] Comment on above: Order Comment: No: D o not add to previous draw Result Comment: Calc ulation may not be valid for patients over 70 years Performed By: #### 1 69, 99729 ####[facility] [facility] [place] [address], [place] Glucose [Mass/Vol] 147 mg/dL High 70-100 The [facility] Comment on above: Order Comment: No: D o not add to previous draw Performed By: #### 1 69, 37908 ####[facility] [facility] [place] [address], [place] Potassium [Moles/Vol] 4.1 mmol/L Normal 3.5-5.1 [facility] Comment on above: Order Comment: No: D o not add to previous draw Performed By: #### 1 0070, 87668 ####[facility] Sodium [Moles/Vol] 139 mmol/L Normal 136-145 The [facility] Comment on above: Order Comment: No: D o not add to previous draw Performed By: #### 1 69, 17693 ####[facility] [facility].[address] Urea nitrogen [Mass/Vol] 22 mg/dL Normal 7-25 [facility] Comment on above: Order Comment: No: D o not add to previous draw Performed By: #### 1 69, 49449 ####[facility] CBC COMPLETE BLOOD COUNTon Erythrocyte distribution width (RBC) [Ratio] 14.9 % Normal 11.5-15.0 [facility] Comment on above: Order Comment: No: D o not add to previous draw Performed By: #### 5 0608 ####[facility] [facility].[address] Hematocrit (Bld) [Volume fraction] 38.1 % Low 39.0-50.0 [facility] Comment on above: Order Comment: No: D o not add to previous draw Performed By: #### 5 0608 ####[facility] [facility].[address] Hemoglobin (Bld) [Mass/Vol] 12.2 g/dL Low 13.0-17.0 [facility] Comment on above: Order Comment: No: D o not add to previous draw Performed By: #### 5 0608 ####[facility] [facility] [place] [address], [place] MCH (RBC) [Entitic mass] 31.0 pg Normal 27.0-33.0 [facility] Comment on above: Order Comment: No: D o not add to previous draw Performed By: #### 5 0608 ####[facility] MCHC (RBC) [Mass/Vol] 32.0 g/dL Normal 32.0-35.0 [facility] Comment on above: Order Comment: No: D o not add to previous draw Performed By: #### 5 0608 ####[facility] [place] [address], [place] MCV (RBC) [Entitic vol] 96.9 fL Normal 82.0-98.0 [facility] Comment on above: Order Comment: No: D o not add to previous draw Performed By: #### 5 0608 ####[address] [facility].[address] Nucleated RBC/100 WBC (Bld) [Ratio] 0 % Normal 0-0 [facility] Comment on above: Order Comment: No: D o not add to previous draw Performed By: #### 5 0608 ####[facility] [facility] [place] [address], [place] PLAT CNT 262 10*3/uL Normal 150-400 [facility] Comment on above: Order Comment: No: D o not add to previous draw Performed By: #### 5 0608 ####[address] [place] [address], [place] RBC (Bld) [#/Vol] 3.93 10*6/uL Low 4.20-5.70 [facility] Comment on above: Order Comment: No: D o not add to previous draw Performed By: #### 5 0608 ####[address] [place] [address], [place] WBC (Bld) [#/Vol] 24.04 10*3/uL High 4.00-10.60 [facility] Comment on above: Order Comment: No: D o not add to previous draw Performed By: #### 5 0608 ####[facility] [facility] [place] [address], [place] MAGNESIUM BLOODon 08-31-2021 Magnesium [Mass/Vol] 2.0 mg/dL Normal 1.9-2.7 [facility] Comment on above: Order Comment: No: D o not add to previous draw Performed By: #### 1 0070, 56409 ####[facility] [facility] [place] [address], [place] POC GLUCOSE LABon 08-31-2021 Glucose [Mass/Vol] 150 mg/dL High 70-100 The [facility] Comment on above: Performed By: #### 8 5499 ####[facility] [facility] [place] [address], [place] Glucose [Mass/Vol] 133 mg/dL High 70-100 The [facility] Comment on above: Performed By: #### 8 5499 ####[facility] [facility].[address] POC SARS COV2 ANTIGEN NEGATI VEon 08-31-2021 POC SARS COV2 ANTIGEN NEG Negative Normal NEGATIVE [facility] Comment on above: Result Comment: Nega [...] of clinicalsigns and symptoms consistent with COVID-19.[employer] COVID-19 Ag Card is a lateral flow immunoassay intended forthe qualitative detection of nucleocapsid protein antigen [id number] in direct nasal swabs from individuals within [...] Certificate ofAccreditation. Performed By: #### 3 1977 ####[facility] BASIC METABOLIC PANELon 12-2 Calcium [Mass/Vol] 8.3 mg/dL Low 8.6-10.3 [facility] Comment on above: Order Comment: No: D o not add to previous draw Performed By: #### 0 0071, 66420, 27568 ####[facility] [facility] [place] [address], [place] Chloride [Moles/Vol] 110 mmol/L High 98-107 [facility] Comment on above: Order Comment: No: D o not add to previous draw Performed By: #### 0 0071, 52727, 67167 ####[facility] [facility] [place] [address], [place] CO2 [Moles/Vol] 23 mmol/L Normal 21-31 [facility] Comment on above: Order Comment: No: D o not add to previous draw Performed By: #### 0 0071, 02229, 08017 ####[facility] [facility] [place] [address], [place] Creatinine [Mass/Vol] 0.83 mg/dL Normal 0.70-1.30 [facility] Comment on above: Order Comment: No: D o not add to previous draw Performed By: #### 0 0071, 01846, 29583 ####[facility] [facility] [place] [address], [place] GFR/1.73 sq M.predicted among blacks MDRD (S/P/Bld) [Vol rate/Area] mL/min/{1.73_m2} Normal >60 [facility] Comment on above: Order Comment: No: D o not add to previous draw Result Comment: Calc ulation may not be valid for patients over 70 years Performed By: #### 0 0071, 61492, 34537 ####[facility] [facility] [place] [address], [place] GFR/1.73 sq M.predicted among non-blacks MDRD (S/P/Bld) [Vol rate/Area] mL/min/{1.73_m2} Normal >60 [facility] Comment on above: Order Comment: No: D o not add to previous draw Result Comment: Calc ulation may not be valid for patients over 70 years Performed By: #### 0 0071, 51720, 35820 ####[facility] [facility] [place] [address], [place] Glucose [Mass/Vol] 142 mg/dL High 70-100 [facility] Comment on above: Order Comment: No: D o not add to previous draw Performed By: #### 0 0071, 66312, 57352 ####[facility] [facility] [place] [address], [place] Potassium [Moles/Vol] 3.4 mmol/L Low 3.5-5.1 [facility] Comment on above: Order Comment: No: D o not add to previous draw Performed By: #### 0 0071, 09617, 82254 ####[facility] [facility] [place] [address], [place] Sodium [Moles/Vol] 141 mmol/L Normal 136-145 [facility] Comment on above: Order Comment: No: D o not add to previous draw Performed By: #### 0 0071, 01531, 37871 ####[facility] [facility] [place] [address], [place] Urea nitrogen [Mass/Vol] 19 mg/dL Normal 7-25 [facility] Comment on above: Order Comment: No: D o not add to previous draw Performed By: #### 0 0071, 55240, 87464 ####[facility] [facility].[address] CBC COMPLETE BLOOD COUNTon Erythrocyte distribution width (RBC) [Ratio] 14.6 % Normal 11.5-15.0 [facility] Comment on above: Order Comment: No: D o not add to previous draw Performed By: #### 5 0608 ####[facility] [facility].[address] Hematocrit (Bld) [Volume fraction] 32.9 % Low 39.0-50.0 [facility] Comment on above: Order Comment: No: D o not add to previous draw Performed By: #### 5 0608 ####[facility] [facility].[address] Hemoglobin (Bld) [Mass/Vol] 11.0 g/dL Low 13.0-17.0 [facility] Comment on above: Order Comment: No: D o not add to previous draw Performed By: #### 5 0608 ####[facility] [facility] [place] [address], [place] MCH (RBC) [Entitic mass] 31.4 pg Normal 27.0-33.0 [facility] Comment on above: Order Comment: No: D o not add to previous draw Performed By: #### 5 0608 ####[facility] [facility] [place] [address], [place] MCHC (RBC) [Mass/Vol] 33.4 g/dL Normal 32.0-35.0 [facility] Comment on above: Order Comment: No: D o not add to previous draw Performed By: #### 5 0608 ####[facility] [place] [address], [place] MCV (RBC) [Entitic vol] 94.0 fL Normal 82.0-98.0 [facility] Comment on above: Order Comment: No: D o not add to previous draw Performed By: #### 5 0608 ####[facility] [facility].[address] Nucleated RBC/100 WBC (Bld) [Ratio] 0 % Normal 0-0 [facility] Comment on above: Order Comment: No: D o not add to previous draw Performed By: #### 5 0608 ####[facility] [place] [address], [place] PLAT CNT 214 10*3/uL Normal 150-400 The [facility] Comment on above: Order Comment: No: D o not add to previous draw Performed By: #### 5 0608 ####[facility] [place] [address], [place] RBC (Bld) [#/Vol] 3.50 10*6/uL Low 4.20-5.70 [facility] Comment on above: Order Comment: No: D o not add to previous draw Performed By: #### 5 0608 ####[facility] [facility] [place] [address], [place] WBC (Bld) [#/Vol] 17.28 10*3/uL High 4.00-10.60 [facility] Comment on above: Order Comment: No: D o not add to previous draw Performed By: #### 5 0608 ####[facility] [facility] [place] [address], [place] MAGNESIUM BLOODon 08-30-2021 Magnesium [Mass/Vol] 1.8 mg/dL Low 1.9-2.7 [facility] Comment on above: Order Comment: No: D o not add to previous draw Performed By: #### 0 0071, 52048, 96671 ####[facility] [facility] [place] [address], [place] PHOSPHORUS BLOODon Phosphate [Mass/Vol] 3.4 mg/dL Normal 2.5-5.0 [facility] Comment on above: Order Comment: No: D o not add to previous draw Performed By: #### 0 0071, 71345, 28404 ####[facility] [facility] [place] [address], [place] POC GLUCOSE LABon 08-30-2021 Glucose [Mass/Vol] 212 mg/dL High 70-100 The [facility] Comment on above: Performed By: #### 8 5499 ####[facility] [facility] [place] [address], [place] Glucose [Mass/Vol] 146 mg/dL High 70-100 The [facility] Comment on above: Performed By: #### 8 5499 ####[facility] [facility] [place] [address], [place] Glucose [Mass/Vol] 164 mg/dL High 70-100 The [facility] Comment on above: Performed By: #### 8 5499 ####[facility] [facility] [place] [address], [place] Glucose [Mass/Vol] 145 mg/dL High 70-100 The [facility] Comment on above: Performed By: #### 8 5499 ####[facility] [facility].[place] [id number], [place] BASIC METABOLIC PANELon 12-2 Calcium [Mass/Vol] 8.2 mg/dL Low 8.6-10.3 The [facility] Comment on above: Order Comment: No: D o not add to previous draw Performed By: #### 4 1000, 02158, 18953 ####[facility] [facility] [place] [address], [place] Chloride [Moles/Vol] 111 mmol/L High 98-107 [facility] Comment on above: Order Comment: No: D o not add to previous draw Performed By: #### 4 1000, 39834, 10863 ####[facility] [place] [address], [place] CO2 [Moles/Vol] 21 mmol/L Normal 21-31 [facility] Comment on above: Order Comment: No: D o not add to previous draw Performed By: #### 4 1000, 45162, 00479 ####[facility] [place] [address], [place] Creatinine [Mass/Vol] 0.70 mg/dL Normal 0.70-1.30 [facility] Comment on above: Order Comment: No: D o not add to previous draw Performed By: #### 4 1000, , 76233 ####[facility] [place] [address], [place] GFR/1.73 sq M.predicted among blacks MDRD (S/P/Bld) [Vol rate/Area] mL/min/{1.73_m2} Normal >60 [facility] Comment on above: Order Comment: No: D o not add to previous draw Result Comment: Calc ulation may not be valid for patients over 70 years Performed By: #### 4 1000, , 07784 ####[facility] [facility] [place] [address], [place] GFR/1.73 sq M.predicted among non-blacks MDRD (S/P/Bld) [Vol rate/Area] mL/min/{1.73_m2} Normal >60 [facility] Comment on above: Order Comment: No: D o not add to previous draw Result Comment: Calc ulation may not be valid for patients over 70 years Performed By: #### 4 1000, 09408, 15705 ####[facility] [place] [address], [place] Glucose [Mass/Vol] 148 mg/dL High 70-100 The [facility] Comment on above: Order Comment: No: D o not add to previous draw Performed By: #### 4 1000, 98615, 87971 ####[facility] [place] [address], [place] Potassium [Moles/Vol] 3.6 mmol/L Normal 3.5-5.1 [facility] Comment on above: Order Comment: No: D o not add to previous draw Performed By: #### 4 1000, 93364, 81581 ####[facility] [id number], [place] Sodium [Moles/Vol] 140 mmol/L Normal 136-145 The [facility] Comment on above: Order Comment: No: D o not add to previous draw Performed By: #### 4 1000, , 18196 ####[facility] [place] [address], [place] Urea nitrogen [Mass/Vol] 19 mg/dL Normal 7-25 [facility] Comment on above: Order Comment: No: D o not add to previous draw Performed By: #### 4 1000, , [id number] ####[facility] [facility] [place] [address], [place] CBC COMPLETE BLOOD COUNTon 10-30-2020 Erythrocyte distribution width (RBC) [Ratio] 14.6 % Normal 11.5-15.0 [facility] Comment on above: Order Comment: No: D o not add to previous draw Performed By: #### 5 0608 ####[facility] [place] [address], [place] Hematocrit (Bld) [Volume fraction] 33.1 % Low 39.0-50.0 [facility] Comment on above: Order Comment: No: D o not add to previous draw Performed By: #### 5 0608 ####[facility] [place] [address], [place] Hemoglobin (Bld) [Mass/Vol] 10.7 g/dL Low 13.0-17.0 [facility] Comment on above: Order Comment: No: D o not add to previous draw Performed By: #### 5 0608 ####[facility] [place] [address], [place] MCH (RBC) [Entitic mass] 31.3 pg Normal 27.0-33.0 [facility] Comment on above: Order Comment: No: D o not add to previous draw Performed By: #### 5 0608 ####[facility]3000 [facility].[address] MCHC (RBC) [Mass/Vol] 32.3 g/dL Normal 32.0-35.0 [facility] Comment on above: Order Comment: No: D o not add to previous draw Performed By: #### 5 0608 ####[facility] [facility].[address] MCV (RBC) [Entitic vol] 96.8 fL Normal 82.0-98.0 [facility] Comment on above: Order Comment: No: D o not add to previous draw Performed By: #### 5 0608 ####[facility] [facility].[address] Nucleated RBC/100 WBC (Bld) [Ratio] 0 % Normal 0-0 [facility] Comment on above: Order Comment: No: D o not add to previous draw Performed By: #### 5 0608 ####[facility] [facility].[address] PLAT CNT 167 10*3/uL Normal 150-400 [facility] Comment on above: Order Comment: No: D o not add to previous draw Performed By: #### 5 0608 ####[facility] [facility].[address] RBC (Bld) [#/Vol] 3.42 10*6/uL Low 4.20-5.70 [facility] Comment on above: Order Comment: No: D o not add to previous draw Performed By: #### 5 0608 ####[facility] [place] [address], [place] WBC (Bld) [#/Vol] 16.20 10*3/uL High 4.00-10.60 [facility] Comment on above: Order Comment: No: D o not add to previous draw Performed By: #### 5 0608 ####[facility] [place] [address], [place] MAGNESIUM BLOODon 08-29-2021 Magnesium [Mass/Vol] 1.8 mg/dL Low 1.9-2.7 [facility] Comment on above: Order Comment: No: D o not add to previous draw Performed By: #### 4 1000, 20453, 62171 ####[facility] [place] [address], [place] PHOSPHORUS BLOODon Phosphate [Mass/Vol] 3.1 mg/dL Normal 2.5-5.0 [facility] Comment on above: Order Comment: No: D o not add to previous draw Performed By: #### 4 1000, 65448, 91890 ####[facility] [id number], [place] POC GLUCOSE LABon 08-29-2021 Glucose [Mass/Vol] 187 mg/dL High 70-100 The [facility] Comment on above: Performed By: #### 8 5499 ####[facility] [place] [address], [place] Glucose [Mass/Vol] 145 mg/dL High 70-100 The [facility] Comment on above: Performed By: #### 8 5499 ####[facility] [place] [address], [place] Glucose [Mass/Vol] 142 mg/dL High 70-100 [facility] Comment on above: Performed By: #### 8 5499 ####[facility] [place] [address], [place] Glucose [Mass/Vol] 166 mg/dL High 70-100 [facility] Comment on above: Performed By: #### 8 5499 ####[facility] [place] [address], [place] Glucose [Mass/Vol] 164 mg/dL High 70-100 The [facility] Comment on above: Performed By: #### 8 5499 ####[facility] [place] [address], [place] BASIC METABOLIC PANELon 12-2 Calcium [Mass/Vol] 7.8 mg/dL Low 8.6-10.3 [facility] Comment on above: Order Comment: No: D o not add to previous draw Performed By: #### 1 69, 28696 ####[facility] [place] [address], [place] Chloride [Moles/Vol] 111 mmol/L High 98-107 [facility] Comment on above: Order Comment: No: D o not add to previous draw Performed By: #### 1 69, 63572 ####[facility] [place] [address], [place] CO2 [Moles/Vol] 21 mmol/L Normal 21-31 [facility] Comment on above: Order Comment: No: D o not add to previous draw Performed By: #### 1 69, 47497 ####[facility] [place] [address], [place] Creatinine [Mass/Vol] 0.76 mg/dL Normal 0.70-1.30 [facility] Comment on above: Order Comment: No: D o not add to previous draw Performed By: #### 1 69, 54840 ####[facility] [place] [address], [place] GFR/1.73 sq M.predicted among blacks MDRD (S/P/Bld) [Vol rate/Area] mL/min/{1.73_m2} Normal >60 [facility] Comment on above: Order Comment: No: D o not add to previous draw Result Comment: Calc ulation may not be valid for patients over 70 years Performed By: #### 1 0, 44316 ####[facility] [place] [address], [place] GFR/1.73 sq M.predicted among non-blacks MDRD (S/P/Bld) [Vol rate/Area] mL/min/{1.73_m2} Normal >60 [facility] Comment on above: Order Comment: No: D o not add to previous draw Result Comment: Calc ulation may not be valid for patients over 70 years Performed By: #### 1 69, 81647 ####[facility] [facility] [place] [address], [place] Glucose [Mass/Vol] 142 mg/dL High 70-100 The [facility] Comment on above: Order Comment: No: D o not add to previous draw Performed By: #### 1 69, 55970 ####[facility] [place] [address], [place] Potassium [Moles/Vol] 3.9 mmol/L Normal 3.5-5.1 [facility] Comment on above: Order Comment: No: D o not add to previous draw Performed By: #### 1 69, 59475 ####[facility] [place] [address], [place] Sodium [Moles/Vol] 140 mmol/L Normal 136-145 The [facility] Comment on above: Order Comment: No: D o not add to previous draw Performed By: #### 1 0070, 50505 ####[facility] Urea nitrogen [Mass/Vol] 15 mg/dL Normal 7-25 [facility] Comment on above: Order Comment: No: D o not add to previous draw Performed By: #### 1 0, 88511 ####[facility] CBC COMPLETE BLOOD COUNTon 10-29-2020 Erythrocyte distribution width (RBC) [Ratio] 14.6 % Normal 11.5-15.0 [facility] Comment on above: Order Comment: No: D o not add to previous draw Performed By: #### 5 0608 ####[place] [id number] Hematocrit (Bld) [Volume fraction] 31.8 % Low 39.0-50.0 [facility] Comment on above: Order Comment: No: D o not add to previous draw Performed By: #### 5 0608 ####[place] [address] Hemoglobin (Bld) [Mass/Vol] 10.5 g/dL Low 13.0-17.0 [facility] Comment on above: Order Comment: No: D o not add to previous draw Performed By: #### 5 0608 ####[facility] MCH (RBC) [Entitic mass] 31.6 pg Normal 27.0-33.0 [facility] Comment on above: Order Comment: No: D o not add to previous draw Performed By: #### 5 0608 ####[address] MCHC (RBC) [Mass/Vol] 33.0 g/dL Normal 32.0-35.0 [facility] Comment on above: Order Comment: No: D o not add to previous draw Performed By: #### 5 0608 ####[facility] [place] [address], [place] MCV (RBC) [Entitic vol] 95.8 fL Normal 82.0-98.0 [facility] Comment on above: Order Comment: No: D o not add to previous draw Performed By: #### 5 0608 ####[facility] [place] [address], [place] Nucleated RBC/100 WBC (Bld) [Ratio] 0 % Normal 0-0 [facility] Comment on above: Order Comment: No: D o not add to previous draw Performed By: #### 5 0608 ####[facility] [facility] [place] [address], [place] PLAT CNT 188 10*3/uL Normal 150-400 [facility] Comment on above: Order Comment: No: D o not add to previous draw Performed By: #### 5 0608 ####[facility] [facility] [place] [address], [place] RBC (Bld) [#/Vol] 3.32 10*6/uL Low 4.20-5.70 [facility] Comment on above: Order Comment: No: D o not add to previous draw Performed By: #### 5 0608 ####[facility] [facility] [place] [address], [place] WBC (Bld) [#/Vol] 14.06 10*3/uL High 4.00-10.60 [facility] Comment on above: Order Comment: No: D o not add to previous draw Performed By: #### 5 0608 ####[facility] [place] [address], [place] MAGNESIUM BLOODon 08-28-2021 Magnesium [Mass/Vol] 1.9 mg/dL Normal 1.9-2.7 [facility] Comment on above: Order Comment: No: D o not add to previous draw Performed By: #### 1 69, 01308 ####[facility] [place] [address], [place] POC GLUCOSE LABon 08-28-2021 Glucose [Mass/Vol] 139 mg/dL High 70-100 The [facility] Comment on above: Performed By: #### 8 5499 ####[facility] [place] [address], [place] BASIC METABOLIC PANELon 08-03 Calcium [Mass/Vol] 7.6 mg/dL Low 8.6-10.3 [facility] Comment on above: Order Comment: No: D o not add to previous draw Performed By: #### 1 69, 88037 ####[facility] [place] [address], [place] Chloride [Moles/Vol] 105 mmol/L Normal 98-107 [facility] Comment on above: Order Comment: No: D o not add to previous draw Performed By: #### 1 69, 71994 ####[facility] [place] [address], [place] CO2 [Moles/Vol] 23 mmol/L Normal 21-31 [facility] Comment on above: Order Comment: No: D o not add to previous draw Performed By: #### 1 69, 78884 ####[facility] [place] [address], [place] Creatinine [Mass/Vol] 0.76 mg/dL Normal 0.70-1.30 [facility] Comment on above: Order Comment: No: D o not add to previous draw Performed By: #### 1 69, 65788 ####[facility] [place] [address], [place] GFR/1.73 sq M.predicted among blacks MDRD (S/P/Bld) [Vol rate/Area] mL/min/{1.73_m2} Normal >60 [facility] Comment on above: Order Comment: No: D o not add to previous draw Result Comment: Calc ulation may not be valid for patients over 70 years Performed By: #### 1 0, 19269 ####[facility] [place] [address], [place] GFR/1.73 sq M.predicted among non-blacks MDRD (S/P/Bld) [Vol rate/Area] mL/min/{1.73_m2} Normal >60 [facility] Comment on above: Order Comment: No: D o not add to previous draw Result Comment: Calc ulation may not be valid for patients over 70 years Performed By: #### 1 69, 05830 ####[facility] [id number], [place] Glucose [Mass/Vol] 109 mg/dL High 70-100 The [facility] Comment on above: Order Comment: No: D o not add to previous draw Performed By: #### 1 69, 57487 ####[facility] [place] [address], [place] Potassium [Moles/Vol] 3.3 mmol/L Low 3.5-5.1 [facility] Comment on above: Order Comment: No: D o not add to previous draw Performed By: #### 1 69, 61264 ####[facility] [place] [address], [place] Sodium [Moles/Vol] 137 mmol/L Normal 136-145 The [facility] Comment on above: Order Comment: No: D o not add to previous draw Performed By: #### 1 69, 61196 ####[facility] [place] [address], [place] Urea nitrogen [Mass/Vol] 11 mg/dL Normal 7-25 [facility] Comment on above: Order Comment: No: D o not add to previous draw Performed By: #### 1 0070, 32816 ####[facility] CBC COMPLETE BLOOD COUNTon 10-28-2020 Erythrocyte distribution width (RBC) [Ratio] 14.5 % Normal 11.5-15.0 [facility] Comment on above: Order Comment: No: D o not add to previous draw Performed By: #### 5 0608 ####[facility] Hematocrit (Bld) [Volume fraction] 30.9 % Low 39.0-50.0 [facility] Comment on above: Order Comment: No: D o not add to previous draw Performed By: #### 5 0608 ####[facility] Hemoglobin (Bld) [Mass/Vol] 10.4 g/dL Low 13.0-17.0 [facility] Comment on above: Order Comment: No: D o not add to previous draw Performed By: #### 5 0608 ####[facility] MCH (RBC) [Entitic mass] 31.6 pg Normal 27.0-33.0 [facility] Comment on above: Order Comment: No: D o not add to previous draw Performed By: #### 5 0608 ####[facility] MCHC (RBC) [Mass/Vol] 33.7 g/dL Normal 32.0-35.0 [facility] Comment on above: Order Comment: No: D o not add to previous draw Performed By: #### 5 0608 ####[facility] MCV (RBC) [Entitic vol] 93.9 fL Normal 82.0-98.0 [facility] Comment on above: Order Comment: No: D o not add to previous draw Performed By: #### 5 0608 ####[facility] Nucleated RBC/100 WBC (Bld) [Ratio] 0 % Normal 0-0 [facility] Comment on above: Order Comment: No: D o not add to previous draw Performed By: #### 5 0608 ####[facility] PLAT CNT 170 10*3/uL Normal 150-400 [facility] Comment on above: Order Comment: No: D o not add to previous draw Performed By: #### 5 0608 ####[facility] RBC (Bld) [#/Vol] 3.29 10*6/uL Low 4.20-5.70 [facility] Comment on above: Order Comment: No: D o not add to previous draw Performed By: #### 5 0608 ####[facility] WBC (Bld) [#/Vol] 14.05 10*3/uL High 4.00-10.60 [facility] Comment on above: Order Comment: No: D o not add to previous draw Performed By: #### 5 0608 ####[facility] MAGNESIUM BLOODon 08-27-2021 Magnesium [Mass/Vol] 1.9 mg/dL Normal 1.9-2.7 [facility] Comment on above: Order Comment: No: D o not add to previous draw Performed By: #### 1 0070, 33037 ####[facility] [place] [address], [place] POC GLUCOSE LABon 08-27-2021 Glucose [Mass/Vol] 179 mg/dL High 70-100 The [facility] Comment on above: Performed By: #### 8 5499 ####[facility] [place] [address], [place] Glucose [Mass/Vol] 116 mg/dL High 70-100 [facility] Comment on above: Performed By: #### 8 5499 ####[facility] [place] [address], [place] Glucose [Mass/Vol] 244 mg/dL High 70-100 [facility] Comment on above: Performed By: #### 8 5499 ####[facility] [place] [address], [place] Glucose [Mass/Vol] 135 mg/dL High 70-100 [facility] Comment on above: Performed By: #### 8 5499 ####[facility] [place] [address], [place] BASIC METABOLIC PANELon 08-03 Calcium [Mass/Vol] 7.9 mg/dL Low 8.6-10.3 [facility] Comment on above: Order Comment: No: D o not add to previous draw Performed By: #### 0 007, 78494 ####[facility] [place] [address], [place] Chloride [Moles/Vol] 102 mmol/L Normal 98-107 [facility] Comment on above: Order Comment: No: D o not add to previous draw Performed By: #### 0 0071, 60244 ####[facility] [place] [address], [place] CO2 [Moles/Vol] 21 mmol/L Normal 21-31 [facility] Comment on above: Order Comment: No: D o not add to previous draw Performed By: #### 0 0071, 72439 ####[facility] [place] [address], [place] Creatinine [Mass/Vol] 0.82 mg/dL Normal 0.70-1.30 [facility] Comment on above: Order Comment: No: D o not add to previous draw Performed By: #### 0 0071, 18296 ####[facility] [place] [address], [place] GFR/1.73 sq M.predicted among blacks MDRD (S/P/Bld) [Vol rate/Area] mL/min/{1.73_m2} Normal >60 [facility] Comment on above: Order Comment: No: D o not add to previous draw Result Comment: Calc ulation may not be valid for patients over 70 years Performed By: #### 0 0071, 33279 ####[facility] [facility] [place] [address], [place] GFR/1.73 sq M.predicted among non-blacks MDRD (S/P/Bld) [Vol rate/Area] mL/min/{1.73_m2} Normal >60 [facility] Comment on above: Order Comment: No: D o not add to previous draw Result Comment: Calc ulation may not be valid for patients over 70 years Performed By: #### 0 0071, 66914 ####[facility] [place] [address], [place] Glucose [Mass/Vol] 130 mg/dL High 70-100 [facility] Comment on above: Order Comment: No: D o not add to previous draw Performed By: #### 0 0071, 18962 ####[facility] [place] [address], [place] Potassium [Moles/Vol] 3.8 mmol/L Normal 3.5-5.1 [facility] Comment on above: Order Comment: No: D o not add to previous draw Performed By: #### 0 0071, 33550 ####[facility] [place] [address], [place] Sodium [Moles/Vol] 133 mmol/L Low 136-145 The [facility] Comment on above: Order Comment: No: D o not add to previous draw Performed By: #### 0 0071, 64198 ####[facility] [place] [address], [place] Urea nitrogen [Mass/Vol] 10 mg/dL Normal 7-25 [facility] Comment on above: Order Comment: No: D o not add to previous draw Performed By: #### 0 0071, 85208 ####[facility] [facility] [place] [address], [place] CBC COMPLETE BLOOD COUNTon 10-27-2020 Erythrocyte distribution width (RBC) [Ratio] 14.6 % Normal 11.5-15.0 [facility] Comment on above: Order Comment: No: D o not add to previous draw Performed By: #### 5 0608 ####[facility] [place] [address], [place] Hematocrit (Bld) [Volume fraction] 33.4 % Low 39.0-50.0 [facility] Comment on above: Order Comment: No: D o not add to previous draw Performed By: #### 5 0608 ####[facility] [place] [address], [place] Hemoglobin (Bld) [Mass/Vol] 11.2 g/dL Low 13.0-17.0 [facility] Comment on above: Order Comment: No: D o not add to previous draw Performed By: #### 5 0608 ####[facility] [place] [address], [place] MCH (RBC) [Entitic mass] 31.6 pg Normal 27.0-33.0 [facility] Comment on above: Order Comment: No: D o not add to previous draw Performed By: #### 5 0608 ####[facility] MCHC (RBC) [Mass/Vol] 33.5 g/dL Normal 32.0-35.0 [facility] Comment on above: Order Comment: No: D o not add to previous draw Performed By: #### 5 0608 ####[facility] MCV (RBC) [Entitic vol] 94.4 fL Normal 82.0-98.0 [facility] Comment on above: Order Comment: No: D o not add to previous draw Performed By: #### 5 0608 ####[place] [id number] [address] Nucleated RBC/100 WBC (Bld) [Ratio] 0 % Normal 0-0 [facility] Comment on above: Order Comment: No: D o not add to previous draw Performed By: #### 5 0608 ####[place] [address] PLAT CNT 179 10*3/uL Normal 150-400 [facility] Comment on above: Order Comment: No: D o not add to previous draw Performed By: #### 5 0608 ####[facility] [place] [address] RBC (Bld) [#/Vol] 3.54 10*6/uL Low 4.20-5.70 [facility] Comment on above: Order Comment: No: D o not add to previous draw Performed By: #### 5 0608 ####[facility] [place] [address], [place] WBC (Bld) [#/Vol] 15.72 10*3/uL High 4.00-10.60 [facility] Comment on above: Order Comment: No: D o not add to previous draw Performed By: #### 5 0608 ####[facility] [facility] [place] [address], [place] MAGNESIUM BLOODon 08-26-2021 Magnesium [Mass/Vol] 1.8 mg/dL Low 1.9-2.7 [facility] Comment on above: Order Comment: No: D o not add to previous draw Performed By: #### 0 0071, 65397 ####[facility] [facility] [place] [address], [place] POC GLUCOSE LABon 08-26-2021 Glucose [Mass/Vol] 203 mg/dL High 70-100 The [facility] Comment on above: Performed By: #### 8 5499 ####[facility] [facility] [place] [address], [place] Glucose [Mass/Vol] 123 mg/dL High 70-100 [facility] Comment on above: Performed By: #### 8 5499 ####[facility] [facility] [place] [address], [place] Glucose [Mass/Vol] 171 mg/dL High 70-100 The [facility] Comment on above: Performed By: #### 8 5499 ####[facility] [facility] [place] [address], [place] Glucose [Mass/Vol] 138 mg/dL High 70-100 [facility] Comment on above: Performed By: #### 8 5499 ####[facility] [facility] [place] [address], [place] BASIC METABOLIC PANELon - Calcium [Mass/Vol] 7.7 mg/dL Low 8.6-10.3 The [facility] Comment on above: Order Comment: No: D o not add to previous draw Performed By: #### 4 1000, 58482, 95300 ####[facility] [place] [address], [place] Chloride [Moles/Vol] 101 mmol/L Normal 98-107 [facility] Comment on above: Order Comment: No: D o not add to previous draw Performed By: #### 4 1000, 96521, 19282 ####[facility] [place] [address], [place] CO2 [Moles/Vol] 24 mmol/L Normal 21-31 [facility] Comment on above: Order Comment: No: D o not add to previous draw Performed By: #### 4 1000, [id number], [id number] ####[facility] [place] [address], [place] Creatinine [Mass/Vol] 0.88 mg/dL Normal 0.70-1.30 [facility] Comment on above: Order Comment: No: D o not add to previous draw Performed By: #### 4 1000, [id number], [id number] ####[facility] [place] [address], [place] GFR/1.73 sq M.predicted among blacks MDRD (S/P/Bld) [Vol rate/Area] mL/min/{1.73_m2} Normal >60 [facility] Comment on above: Order Comment: No: D o not add to previous draw Result Comment: Calc ulation may not be valid for patients over 70 years Performed By: #### 4 1000, 91710, 17604 ####[facility] [place] [address], [place] GFR/1.73 sq M.predicted among non-blacks MDRD (S/P/Bld) [Vol rate/Area] mL/min/{1.73_m2} Normal >60 [facility] Comment on above: Order Comment: No: D o not add to previous draw Result Comment: Calc ulation may not be valid for patients over 70 years Performed By: #### 4 999, 54236, 36099 ####[facility] [id number], [place] Glucose [Mass/Vol] 141 mg/dL High 70-100 The [facility] Comment on above: Order Comment: No: D o not add to previous draw Performed By: #### 4 999, 23380, 43924 ####[facility] [id number], [place] Potassium [Moles/Vol] 3.9 mmol/L Normal 3.5-5.1 [facility] Comment on above: Order Comment: No: D o not add to previous draw Performed By: #### 4 999, 01926, 37977 ####[facility] [id number], [place] Sodium [Moles/Vol] 131 mmol/L Low 136-145 The [facility] Comment on above: Order Comment: No: D o not add to previous draw Performed By: #### 4 999, 19461, 81839 ####[facility] [facility] [place] [address], [place] Urea nitrogen [Mass/Vol] 11 mg/dL Normal 7-25 [facility] Comment on above: Order Comment: No: D o not add to previous draw Performed By: #### 4 999, 24555, 69093 ####[facility] [facility] [place] [address], [place] CBC COMPLETE BLOOD COUNTon 10-26-2020 Erythrocyte distribution width (RBC) [Ratio] 14.6 % Normal 11.5-15.0 [facility] Comment on above: Order Comment: No: D o not add to previous draw Performed By: #### 5 0608 ####[facility] [id number], [place] Hematocrit (Bld) [Volume fraction] 31.9 % Low 39.0-50.0 [facility] Comment on above: Order Comment: No: D o not add to previous draw Performed By: #### 5 0608 ####[facility] [facility].[address] Hemoglobin (Bld) [Mass/Vol] 10.8 g/dL Low 13.0-17.0 [facility] Comment on above: Order Comment: No: D o not add to previous draw Performed By: #### 5 0608 ####[facility] MCH (RBC) [Entitic mass] 32.0 pg Normal 27.0-33.0 [facility] Comment on above: Order Comment: No: D o not add to previous draw Performed By: #### 5 0608 ####[facility] MCHC (RBC) [Mass/Vol] 33.9 g/dL Normal 32.0-35.0 [facility] Comment on above: Order Comment: No: D o not add to previous draw Performed By: #### 5 0608 ####[facility] [facility].[address] MCV (RBC) [Entitic vol] 94.4 fL Normal 82.0-98.0 [facility] Comment on above: Order Comment: No: D o not add to previous draw Performed By: #### 5 0608 ####[facility] [facility].[address] Nucleated RBC/100 WBC (Bld) [Ratio] 0 % Normal 0-0 [facility] Comment on above: Order Comment: No: D o not add to previous draw Performed By: #### 5 0608 ####[facility] [place] [address] PLAT CNT 163 10*3/uL Normal 150-400 The [facility] Comment on above: Order Comment: No: D o not add to previous draw Performed By: #### 5 0608 ####[facility] [place] [address], [place] RBC (Bld) [#/Vol] 3.38 10*6/uL Low 4.20-5.70 The [facility] Comment on above: Order Comment: No: D o not add to previous draw Performed By: #### 5 0608 ####[facility] [place] [address], [place] WBC (Bld) [#/Vol] 13.02 10*3/uL High 4.00-10.60 [facility] Comment on above: Order Comment: No: D o not add to previous draw Performed By: #### 5 0608 ####[facility] [place] [address], [place] MAGNESIUM BLOODon 08-25-2021 Magnesium [Mass/Vol] 1.7 mg/dL Low 1.9-2.7 [facility] Comment on above: Order Comment: No: D o not add to previous draw Performed By: #### 4 1000, 03307, 05816 ####[facility] [facility] [id number], [place] PHOSPHORUS BLOODon Phosphate [Mass/Vol] 3.8 mg/dL Normal 2.5-5.0 [facility] Comment on above: Order Comment: No: D o not add to previous draw Performed By: #### 4 1000, 68979, 69006 ####[facility] [id number], [place] POC GLUCOSE LABon 08-25-2021 Glucose [Mass/Vol] 133 mg/dL High 70-100 The [facility] Comment on above: Performed By: #### 8 5499 ####[facility] [place] [address], [place] Glucose [Mass/Vol] 135 mg/dL High 70-100 The [facility] Comment on above: Performed By: #### 8 5499 ####[facility] [facility] [place] [address], [place] Glucose [Mass/Vol] 135 mg/dL High 70-100 The [facility] Comment on above: Performed By: #### 8 5499 ####[facility] [facility] [place] [address], [place] Glucose [Mass/Vol] 155 mg/dL High 70-100 The [facility] Comment on above: Performed By: #### 8 5499 ####[facility] [facility] [place] [address], [place] BASIC METABOLIC PANELon 12-2 -2020 Calcium [Mass/Vol] 7.9 mg/dL Low 8.6-10.3 The [facility] Comment on above: Order Comment: No: D o not add to previous drawMissed draw at 420amPT refused PATTY Cameron notified Performed By: #### 1 0, 98272, 90711 ####[facility] [facility] [place] [address], [place] Chloride [Moles/Vol] 100 mmol/L Normal 98-107 [facility] Comment on above: Order Comment: No: D o not add to previous drawMissed draw at 420amPT refused PATTY Cameron notified Performed By: #### 1 69, 27115, 80918 ####[facility] [facility] [place] [address], [place] CO2 [Moles/Vol] 26 mmol/L Normal 21-31 [facility] Comment on above: Order Comment: No: D o not add to previous drawMissed draw at 420amPT refused PATTY Cameron notified Performed By: #### 1 0, 99598, 87255 ####[facility] [facility] [place] [address], [place] Creatinine [Mass/Vol] 0.86 mg/dL Normal 0.70-1.30 [facility] Comment on above: Order Comment: No: D o not add to previous drawMissed draw at 420amPT refused PATTY Cameron notified Performed By: #### 1 0070, 26480, 12348 ####[facility] [facility] [place] [address], [place] GFR/1.73 sq M.predicted among blacks MDRD (S/P/Bld) [Vol rate/Area] mL/min/{1.73_m2} Normal >60 [facility] Comment on above: Order Comment: No: D o not add to previous drawMissed draw at 420amPT refused PATTY Cameron notified Result Comment: Calc ulation may not be valid for patients over 70 years Performed By: #### 1 0070, 50811, 13591 ####[facility] [facility] [place] [address], [place] GFR/1.73 sq M.predicted among non-blacks MDRD (S/P/Bld) [Vol rate/Area] mL/min/{1.73_m2} Normal >60 [facility] Comment on above: Order Comment: No: D o not add to previous drawMissed draw at 420amPT refused PATTY Cameron notified Result Comment: Calc ulation may not be valid for patients over 70 years Performed By: #### 1 0070, 55592, 62753 ####[facility] [facility] [place] [address], [place] Glucose [Mass/Vol] 127 mg/dL High 70-100 The [facility] Comment on above: Order Comment: No: D o not add to previous drawMissed draw at 420amPT refused PATTY Cameron notified Performed By: #### 1 0070, 11807, 45808 ####[facility] [facility] [place] [address], [place] Potassium [Moles/Vol] 4.3 mmol/L Normal 3.5-5.1 [facility] Comment on above: Order Comment: No: D o not add to previous drawMissed draw at 420amPT refused PATTY Cameron notified Performed By: #### 1 0070, 31680, 58102 ####[facility] [facility].[address] Sodium [Moles/Vol] 132 mmol/L Low 136-145 The [facility] Comment on above: Order Comment: No: D o not add to previous drawMissed draw at 420amPT refused PATTY Cameron notified Performed By: #### 1 0070, 14736, 71558 ####[facility] [facility].[address] Urea nitrogen [Mass/Vol] 10 mg/dL Normal 7-25 [facility] Comment on above: Order Comment: No: D o not add to previous drawMissed draw at 420amPT refused PATTY Cameron notified Performed By: #### 1 0070, 23605, 64120 ####[facility] [facility].[address] CBC W/DIFFon 08-24-2021 ABS IMM GRANS 0.1 10*3/uL Normal 0.0-0.2 The [facility] Comment on above: Order Comment: No: D o not add to previous drawMissed draw at 420amPT refused PATTY Cameron notified Performed By: #### 5 0103 ####[facility] [facility].[address] ABS NEUTROPHILS 4.5 10*3/uL Normal 1.6-7.6 The [facility] Comment on above: Order Comment: No: D o not add to previous drawMissed draw at 420amPT refused PATTY Cameron notified Performed By: #### 5 0103 ####[facility] [facility].[address] Basophils (Bld) [#/Vol] 0.0 10*3/uL Normal 0.0-0.2 [facility] Comment on above: Order Comment: No: D o not add to previous drawMissed draw at 420amPT refused PATTY Cameron notified Performed By: #### 5 0103 ####[facility] [place] [address], [place] Basophils/100 WBC (Bld) 0.1 % Normal 0.0-1.0 [facility] Comment on above: Order Comment: No: D o not add to previous drawMissed draw at 420amPT refused PATTY Cameron notified Performed By: #### 5 0103 ####[facility] Eosinophils (Bld) [#/Vol] 0.0 10*3/uL Normal 0.0-0.5 [facility] Comment on above: Order Comment: No: D o not add to previous drawMissed draw at 420amPT refused PATTY Cameron notified Performed By: #### 5 0103 ####[facility] [place] [address], [place] Eosinophils/100 WBC (Bld) 0.1 % Normal 0.0-6.0 [facility] Comment on above: Order Comment: No: D o not add to previous drawMissed draw at 420amPT refused PATTY Cameron notified Performed By: #### 5 0103 ####[facility] Erythrocyte distribution width (RBC) [Ratio] 14.7 % Normal 11.5-15.0 [facility] Comment on above: Order Comment: No: D o not add to previous drawMissed draw at 420amPT refused PATTY Cameron notified Performed By: #### 5 0103 ####[facility] [place] [address], [place] Hematocrit (Bld) [Volume fraction] 35.4 % Low 39.0-50.0 [facility] Comment on above: Order Comment: No: D o not add to previous drawMissed draw at 420amPT refused RN Nisha notified Performed By: #### 5 0103 ####[facility] [facility] [place] [address], [place] Hemoglobin (Bld) [Mass/Vol] 11.6 g/dL Low 13.0-17.0 [facility] Comment on above: Order Comment: No: D o not add to previous drawMissed draw at 420amPT refused PATTY Cameron notified Performed By: #### 5 0103 ####[facility] IMMATURE GRANS 0.3 % Normal 0.0-1.0 The [facility] carmen [facility] Comment on above: Order Comment: No: D o not add to previous drawMissed draw at 420amPT refused PATTY Cameron notified Performed By: #### 5 0103 ####[facility] Lymphocytes (Bld) [#/Vol] 10.1 10*3/uL High 1.2-4.0 [facility] Comment on above: Order Comment: No: D o not add to previous drawMissed draw at 420amPT refused PATTY Cameron notified Performed By: #### 5 0103 ####[facility] [facility] [place] [address], [place] Lymphocytes/100 WBC (Bld) 67.1 % High 20.0-45.0 [facility] Comment on above: Order Comment: No: D o not add to previous drawMissed draw at 420amPT refused PATTY Cameron notified Performed By: #### 5 0103 ####[facility] [place] [address], [place] MCH (RBC) [Entitic mass] 32.0 pg Normal 27.0-33.0 [facility] Comment on above: Order Comment: No: D o not add to previous drawMissed draw at 420amPT refused PATTY Cameron notified Performed By: #### 5 0103 ####[facility] MCHC (RBC) [Mass/Vol] 32.8 g/dL Normal 32.0-35.0 [facility] Comment on above: Order Comment: No: D o not add to previous drawMissed draw at 420amPT refused PATTY Cameron notified Performed By: #### 5 0103 ####[facility] MCV (RBC) [Entitic vol] 97.5 fL Normal 82.0-98.0 [facility] Comment on above: Order Comment: No: D o not add to previous drawMissed draw at 420amPT refused PATTY Cameron notified Performed By: #### 5 0103 ####[facility] Monocytes (Bld) [#/Vol] 0.4 10*3/uL Normal 0.1-1.0 [facility] Comment on above: Order Comment: No: D o not add to previous drawMissed draw at 420amPT refused PATTY Cameron notified Performed By: #### 5 3 ####[facility] MONOS 2.6 % Low 5.0-12.0 [facility] Comment on above: Order Comment: No: D o not add to previous drawMissed draw at 420amPT refused PATTY Cameron notified Performed By: #### 5 0103 ####[facility] [place] [address] Neutrophils/100 WBC (Bld) 29.8 % Low 40.0-72.0 [facility] Comment on above: Order Comment: No: D o not add to previous drawMissed draw at 420amPT refused PATTY Cameron notified Performed By: #### 5 0103 ####[facility] [facility] [place] [address], [place] Nucleated RBC/100 WBC (Bld) [Ratio] 0 % Normal 0-0 [facility] Comment on above: Order Comment: No: D o not add to previous drawMissed draw at 420amPT refused PATTY Cameron notified Performed By: #### 5 0103 ####[facility] [place] [address], [place] PLAT CNT 175 10*3/uL Normal 150-400 The [facility] Comment on above: Order Comment: No: D o not add to previous drawMissed draw at 420amPT refused PATTY Cameron notified Performed By: #### 5 3 ####[facility] [facility] [place] [address], [place] RBC (Bld) [#/Vol] 3.63 10*6/uL Low 4.20-5.70 The [facility] Comment on above: Order Comment: No: D o not add to previous drawMissed draw at 420amPT refused PATTY Cameron notified Performed By: #### 5 0103 ####[facility] [facility] [place] [address], [place] SMUDGE CELLS MANY Normal The [facility] Comment on above: Order Comment: No: D o not add to previous drawMissed draw at 420amPT refused PATTY Cameron notified Performed By: #### 5 3 ####[facility] [facility] [place] [address], [place] WBC (Bld) [#/Vol] 15.09 10*3/uL High 4.00-10.60 [facility] Comment on above: Order Comment: No: D o not add to previous drawMissed draw at 420amPT refused PATTY Cameron notified Performed By: #### 5 3 ####[facility] [facility] [place] [address], [place] MAGNESIUM BLOODon 08-24-2021 Magnesium [Mass/Vol] 1.8 mg/dL Low 1.9-2.7 [facility] Comment on above: Order Comment: No: D o not add to previous drawMissed draw at 420amPT refused PATTY Cameron notified Performed By: #### 1 0070, 38597, 79453 ####[facility] [facility] [place] [address], [place] PHOSPHORUS BLOODon Phosphate [Mass/Vol] 3.8 mg/dL Normal 2.5-5.0 [facility] Comment on above: Order Comment: No: D o not add to previous drawMissed draw at 420amPT refused PATTY Cameron notified Performed By: #### 1 0070, 75935, 17699 ####[facility] [facility] [place] [address], [place] POC GLUCOSE LABon 08-24-2021 Glucose [Mass/Vol] 208 mg/dL High 70-100 The [facility] Comment on above: Performed By: #### 8 5499 ####[facility] [facility] [place] [address], [place] Glucose [Mass/Vol] 146 mg/dL High 70-100 The [facility] Comment on above: Performed By: #### 8 5499 ####[facility] [facility] [place] [address], [place] Glucose [Mass/Vol] 162 mg/dL High 70-100 The [facility] Comment on above: Performed By: #### 8 5499 ####[facility] [facility] [place] [address], [place] Glucose [Mass/Vol] 148 mg/dL High 70-100 The [facility] Comment on above: Performed By: #### 8 8359 ####[facility] [facility].[address] POC SARS COV2 ANTIGEN NEGATI VEon 08-24-2021 POC SARS COV2 ANTIGEN NEG Negative Normal NEGATIVE [facility] Comment on above: Result Comment: Nega [...] of clinicalsigns and symptoms consistent with COVID-19.[employer] COVID-19 Ag Card is a lateral flow immunoassay intended forthe qualitative detection of nucleocapsid protein antigen [id number] in direct nasal swabs from individuals within [...] Certificate ofAccreditation. Performed By: #### 3 1977 ####[address] BASIC METABOLIC PANELon 08-03 Calcium [Mass/Vol] 7.8 mg/dL Low 8.6-10.3 The [facility] Comment on above: Order Comment: No: D o not add to previous draw Performed By: #### 1 0070, 66152 ####[place] [address] [facility].[address] Chloride [Moles/Vol] 104 mmol/L Normal 98-107 [facility] Comment on above: Order Comment: No: D o not add to previous draw Performed By: #### 1 0070, 00888 ####[place] [address] [facility] [place] [address], [place] CO2 [Moles/Vol] 24 mmol/L Normal 21-31 [facility] Comment on above: Order Comment: No: D o not add to previous draw Performed By: #### 1 0, 46225 ####[facility] [facility] [place] [address], [place] Creatinine [Mass/Vol] 0.91 mg/dL Normal 0.70-1.30 [facility] Comment on above: Order Comment: No: D o not add to previous draw Performed By: #### 1 0, 78265 ####[address] [place] [address], [place] GFR/1.73 sq M.predicted among blacks MDRD (S/P/Bld) [Vol rate/Area] mL/min/{1.73_m2} Normal >60 [facility] Comment on above: Order Comment: No: D o not add to previous draw Result Comment: Calc ulation may not be valid for patients over 70 years Performed By: #### 1 0, 47101 ####[place] [address] [facility] [place] [address], [place] GFR/1.73 sq M.predicted among non-blacks MDRD (S/P/Bld) [Vol rate/Area] mL/min/{1.73_m2} Normal >60 [facility] Comment on above: Order Comment: No: D o not add to previous draw Result Comment: Calc ulation may not be valid for patients over 70 years Performed By: #### 1 0, 07098 ####[facility] [facility] [place] [address], [place] Glucose [Mass/Vol] 162 mg/dL High 70-100 [facility] Comment on above: Order Comment: No: D o not add to previous draw Performed By: #### 1 0, 82958 ####[facility] Potassium [Moles/Vol] 3.9 mmol/L Normal 3.5-5.1 [facility] Comment on above: Order Comment: No: D o not add to previous draw Performed By: #### 1 69, 55865 ####[facility] [facility] [place] [address], [place] Sodium [Moles/Vol] 134 mmol/L Low 136-145 The [facility] Comment on above: Order Comment: No: D o not add to previous draw Performed By: #### 1 69, 36779 ####[facility] Urea nitrogen [Mass/Vol] 7 mg/dL Normal 7-25 [facility] Comment on above: Order Comment: No: D o not add to previous draw Performed By: #### 1 69, 06260 ####[facility] CBC COMPLETE BLOOD COUNTon 10-24-2020 Erythrocyte distribution width (RBC) [Ratio] 14.7 % Normal 11.5-15.0 [facility] Comment on above: Order Comment: No: D o not add to previous draw Performed By: #### 5 0608 ####[facility] [facility].[address] Hematocrit (Bld) [Volume fraction] 32.6 % Low 39.0-50.0 [facility] Comment on above: Order Comment: No: D o not add to previous draw Performed By: #### 5 0608 ####[facility] [facility] [place] [address], [place] Hemoglobin (Bld) [Mass/Vol] 10.8 g/dL Low 13.0-17.0 [facility] Comment on above: Order Comment: No: D o not add to previous draw Performed By: #### 5 0608 ####[facility] [facility].[address] MCH (RBC) [Entitic mass] 31.4 pg Normal 27.0-33.0 [facility] Comment on above: Order Comment: No: D o not add to previous draw Performed By: #### 5 0608 ####[facility] [facility] [place] [address], [place] MCHC (RBC) [Mass/Vol] 33.1 g/dL Normal 32.0-35.0 [facility] Comment on above: Order Comment: No: D o not add to previous draw Performed By: #### 5 0608 ####[facility] [facility] [place] [address], [place] MCV (RBC) [Entitic vol] 94.8 fL Normal 82.0-98.0 [facility] Comment on above: Order Comment: No: D o not add to previous draw Performed By: #### 5 0608 ####[facility] [facility].[address] Nucleated RBC/100 WBC (Bld) [Ratio] 0 % Normal 0-0 [facility] Comment on above: Order Comment: No: D o not add to previous draw Performed By: #### 5 0608 ####[facility] [facility] [place] [address], [place] PLAT CNT 147 10*3/uL Low 150-400 The [facility] Comment on above: Order Comment: No: D o not add to previous draw Performed By: #### 5 0608 ####[facility] [place] [address] [address], [place] RBC (Bld) [#/Vol] 3.44 10*6/uL Low 4.20-5.70 [facility] Comment on above: Order Comment: No: D o not add to previous draw Performed By: #### 5 0608 ####[facility] [place] [address], [place] WBC (Bld) [#/Vol] 13.68 10*3/uL High 4.00-10.60 [facility] Comment on above: Order Comment: No: D o not add to previous draw Performed By: #### 5 0608 ####[facility] [place] [address], [place] MAGNESIUM BLOODon 08-23-2021 Magnesium [Mass/Vol] 1.6 mg/dL Low 1.9-2.7 [facility] Comment on above: Order Comment: No: D o not add to previous draw Performed By: #### 1 0070, 55071 ####[facility] [place] [address], [place] POC GLUCOSE LABon 08-23-2021 Glucose [Mass/Vol] 156 mg/dL High 70-100 The [facility] Comment on above: Performed By: #### 8 5499 ####[facility] [facility] [place] [address], [place] Glucose [Mass/Vol] 111 mg/dL High 70-100 [facility] Comment on above: Performed By: #### 8 5499 ####[facility] [facility] [place] [address], [place] Glucose [Mass/Vol] 181 mg/dL High 70-100 [facility] Comment on above: Performed By: #### 8 5499 ####[facility] [place] [address], [place] Glucose [Mass/Vol] 167 mg/dL High 70-100 The [facility] Comment on above: Performed By: #### 8 5499 ####[facility] [place] [address], [place] *C DIFF DNA AMPLIFICATIONon 08-22-2021 *C DIFF DNA AMPLIFICATION Clinical Report: (D) Specimen: [id number] Collected: 08/22/2021 16:41 Status: Final Last Updated: 08/22/2021 18:57 (1) No: Do not add to previous draw CDT DNA: (Final) Negative Normal [facility] Comment on above: Order Comment: No: D o not add to previous draw Performed By: #### 3 0622 ####[facility] [facility] BASIC METABOLIC PANELon 12-2 Calcium [Mass/Vol] 8.2 mg/dL Low 8.6-10.3 [facility] Comment on above: Order Comment: No: D o not add to previous draw Performed By: #### 1 0, 82810 ####[facility] [facility] [place] [address], [place] Chloride [Moles/Vol] 104 mmol/L Normal 98-107 [facility] Comment on above: Order Comment: No: D o not add to previous draw Performed By: #### 1 69, 18020 ####[facility] [facility] [place] [address], [place] CO2 [Moles/Vol] 21 mmol/L Normal 21-31 [facility] Comment on above: Order Comment: No: D o not add to previous draw Performed By: #### 1 0, 08767 ####[facility] [place] [address], [place] Creatinine [Mass/Vol] 0.92 mg/dL Normal 0.70-1.30 [facility] Comment on above: Order Comment: No: D o not add to previous draw Performed By: #### 1 0, 25520 ####[facility] [place] [address], [place] GFR/1.73 sq M.predicted among blacks MDRD (S/P/Bld) [Vol rate/Area] mL/min/{1.73_m2} Normal >60 [facility] Comment on above: Order Comment: No: D o not add to previous draw Result Comment: Calc ulation may not be valid for patients over 70 years Performed By: #### 1 0, 51281 ####[facility] [place] [address], [place] GFR/1.73 sq M.predicted among non-blacks MDRD (S/P/Bld) [Vol rate/Area] mL/min/{1.73_m2} Normal >60 [facility] Comment on above: Order Comment: No: D o not add to previous draw Result Comment: Calc ulation may not be valid for patients over 70 years Performed By: #### 1 69, 61506 ####[facility] [place] [address], [place] Glucose [Mass/Vol] 179 mg/dL High 70-100 The [facility] Comment on above: Order Comment: No: D o not add to previous draw Performed By: #### 1 69, 31886 ####[facility] [place] [address], [place] Potassium [Moles/Vol] 4.4 mmol/L Normal 3.5-5.1 [facility] Comment on above: Order Comment: No: D o not add to previous draw Performed By: #### 1 69, 60452 ####[facility] [place] [address], [place] Sodium [Moles/Vol] 134 mmol/L Low 136-145 The [facility] Comment on above: Order Comment: No: D o not add to previous draw Performed By: #### 1 69, 80412 ####[facility] [place] [address], [place] Urea nitrogen [Mass/Vol] 9 mg/dL Normal 7-25 [facility] Comment on above: Order Comment: No: D o not add to previous draw Performed By: #### 1 0, 64989 ####[facility] CBC COMPLETE BLOOD COUNTon 10-23-2020 Erythrocyte distribution width (RBC) [Ratio] 14.7 % Normal 11.5-15.0 [facility] Comment on above: Order Comment: No: D o not add to previous draw Performed By: #### 5 0608 ####[facility] Hematocrit (Bld) [Volume fraction] 36.8 % Low 39.0-50.0 [facility] Comment on above: Order Comment: No: D o not add to previous draw Performed By: #### 5 0608 ####[place] [address] Hemoglobin (Bld) [Mass/Vol] 12.4 g/dL Low 13.0-17.0 [facility] Comment on above: Order Comment: No: D o not add to previous draw Performed By: #### 5 0608 ####[address] MCH (RBC) [Entitic mass] 32.3 pg Normal 27.0-33.0 [facility] Comment on above: Order Comment: No: D o not add to previous draw Performed By: #### 5 0608 ####[facility] MCHC (RBC) [Mass/Vol] 33.7 g/dL Normal 32.0-35.0 [facility] Comment on above: Order Comment: No: D o not add to previous draw Performed By: #### 5 0608 ####[facility] [place] [address] MCV (RBC) [Entitic vol] 95.8 fL Normal 82.0-98.0 [facility] Comment on above: Order Comment: No: D o not add to previous draw Performed By: #### 5 0608 ####[facility] Nucleated RBC/100 WBC (Bld) [Ratio] 0 % Normal 0-0 [facility] Comment on above: Order Comment: No: D o not add to previous draw Performed By: #### 5 0608 ####[facility] PLAT CNT 176 10*3/uL Normal 150-400 The [facility] Comment on above: Order Comment: No: D o not add to previous draw Performed By: #### 5 0608 ####[facility] RBC (Bld) [#/Vol] 3.84 10*6/uL Low 4.20-5.70 [facility] Comment on above: Order Comment: No: D o not add to previous draw Performed By: #### 5 0608 ####[facility] [facility].[address] WBC (Bld) [#/Vol] 17.17 10*3/uL High 4.00-10.60 [facility] Comment on above: Order Comment: No: D o not add to previous draw Performed By: #### 5 0608 ####[facility] ABDOMEN AND PELVIS W ORAL CONTRASTon 08-22-2021 CT ABDOMEN AND PELVIS W ORAL CONTRAST Normal [facility] Comment on above: Order Comment: Fluid Collection MAGNESIUM BLOODon 08-22-2021 Magnesium [Mass/Vol] 1.9 mg/dL Normal 1.9-2.7 [facility] Comment on above: Order Comment: No: D o not add to previous draw Performed By: #### 1 0070, 70016 ####[facility] [place] [address], [place] POC GLUCOSE LABon 08-22-2021 Glucose [Mass/Vol] 119 mg/dL High 70-100 The [facility] Comment on above: Performed By: #### 8 5499 ####[facility] [place] [address], [place] Glucose [Mass/Vol] 180 mg/dL High 70-100 The [facility] Comment on above: Performed By: #### 8 5499 ####[facility] [place] [address], [place] Glucose [Mass/Vol] 146 mg/dL High 70-100 The [facility] Comment on above: Performed By: #### 8 5499 ####[facility] [place] [address], [place] Glucose [Mass/Vol] 177 mg/dL High 70-100 The [facility] Comment on above: Performed By: #### 8 5499 ####[facility] [place] [address], [place] BASIC METABOLIC PANELon 12-2 Calcium [Mass/Vol] 8.0 mg/dL Low 8.6-10.3 The [facility] Comment on above: Order Comment: No: D o not add to previous draw Performed By: #### 0 0071, 84998, 93010 ####[facility] [place] [address], [place] Chloride [Moles/Vol] 102 mmol/L Normal 98-107 [facility] Comment on above: Order Comment: No: D o not add to previous draw Performed By: #### 0 0071, 14797, 29170 ####[facility] [place] [address], [place] CO2 [Moles/Vol] 23 mmol/L Normal 21-31 The [facility] Comment on above: Order Comment: No: D o not add to previous draw Performed By: #### 0 0071, 17045, 71652 ####[facility] [place] [address], [place] Creatinine [Mass/Vol] 0.89 mg/dL Normal 0.70-1.30 [facility] Comment on above: Order Comment: No: D o not add to previous draw Performed By: #### 0 0071, 86370, 39409 ####[facility] [place] [address], [place] GFR/1.73 sq M.predicted among blacks MDRD (S/P/Bld) [Vol rate/Area] mL/min/{1.73_m2} Normal >60 [facility] Comment on above: Order Comment: No: D o not add to previous draw Result Comment: Calc ulation may not be valid for patients over 70 years Performed By: #### 0 0071, 99418, 08953 ####[facility] [place] [address], [place] GFR/1.73 sq M.predicted among non-blacks MDRD (S/P/Bld) [Vol rate/Area] mL/min/{1.73_m2} Normal >60 [facility] Comment on above: Order Comment: No: D o not add to previous draw Result Comment: Calc ulation may not be valid for patients over 70 years Performed By: #### 0 0071, 90415, 50053 ####[facility] [place] [address], [place] Glucose [Mass/Vol] 200 mg/dL High 70-100 [facility] Comment on above: Order Comment: No: D o not add to previous draw Performed By: #### 0 0071, 44323, 85043 ####[facility] [place] [address], [place] Potassium [Moles/Vol] 4.4 mmol/L Normal 3.5-5.1 [facility] Comment on above: Order Comment: No: D o not add to previous draw Performed By: #### 0 0071, 50033, 03013 ####[facility] Sodium [Moles/Vol] 132 mmol/L Low 136-145 The [facility] Comment on above: Order Comment: No: D o not add to previous draw Performed By: #### 0 0071, 73399, 67154 ####[facility] Urea nitrogen [Mass/Vol] 10 mg/dL Normal 7-25 [facility] Comment on above: Order Comment: No: D o not add to previous draw Performed By: #### 0 0071, 46852, 85964 ####[facility] CBC COMPLETE BLOOD COUNTon 1 10-22-2020 Erythrocyte distribution width (RBC) [Ratio] 14.6 % Normal 11.5-15.0 [facility] Comment on above: Order Comment: No: D o not add to previous draw Performed By: #### 5 0608 ####[place] [address] Hematocrit (Bld) [Volume fraction] 34.1 % Low 39.0-50.0 [facility] Comment on above: Order Comment: No: D o not add to previous draw Performed By: #### 5 0608 ####[facility] Hemoglobin (Bld) [Mass/Vol] 11.5 g/dL Low 13.0-17.0 [facility] Comment on above: Order Comment: No: D o not add to previous draw Performed By: #### 5 0608 ####[facility] MCH (RBC) [Entitic mass] 32.0 pg Normal 27.0-33.0 [facility] Comment on above: Order Comment: No: D o not add to previous draw Performed By: #### 5 0608 ####[address] [place] [address], [place] MCHC (RBC) [Mass/Vol] 33.7 g/dL Normal 32.0-35.0 [facility] Comment on above: Order Comment: No: D o not add to previous draw Performed By: #### 5 0608 ####[address] MCV (RBC) [Entitic vol] 95.0 fL Normal 82.0-98.0 [facility] Comment on above: Order Comment: No: D o not add to previous draw Performed By: #### 5 0608 ####[address] Nucleated RBC/100 WBC (Bld) [Ratio] 0 % Normal 0-0 [facility] Comment on above: Order Comment: No: D o not add to previous draw Performed By: #### 5 0608 ####[address] PLAT CNT 163 10*3/uL Normal 150-400 The [facility] Comment on above: Order Comment: No: D o not add to previous draw Performed By: #### 5 0608 ####[address] [place] [address], [place] RBC (Bld) [#/Vol] 3.59 10*6/uL Low 4.20-5.70 [facility] Comment on above: Order Comment: No: D o not add to previous draw Performed By: #### 5 0608 ####[address] [place] [address], [place] WBC (Bld) [#/Vol] 17.22 10*3/uL High 4.00-10.60 [facility] Comment on above: Order Comment: No: D o not add to previous draw Performed By: #### 5 0608 ####[facility] [place] [address], [place] MAGNESIUM BLOODon 08-21-2021 Magnesium [Mass/Vol] 2.1 mg/dL Normal 1.9-2.7 [facility] Comment on above: Order Comment: No: D o not add to previous draw Performed By: #### 0 0071, 29982, 89395 ####[facility] [facility] [place] [address], [place] PHOSPHORUS BLOODon Phosphate [Mass/Vol] 3.4 mg/dL Normal 2.5-5.0 [facility] Comment on above: Order Comment: No: D o not add to previous draw Performed By: #### 0 0071, 86367, 56071 ####[facility] [facility] [place] [address], [place] POC GLUCOSE LABon 08-21-2021 Glucose [Mass/Vol] 122 mg/dL High 70-100 The [facility] Comment on above: Performed By: #### 8 5499 ####[facility] [place] [address], [place] Glucose [Mass/Vol] 172 mg/dL High 70-100 The [facility] Comment on above: Performed By: #### 8 5499 ####[facility] [place] [address], [place] Glucose [Mass/Vol] 120 mg/dL High 70-100 The [facility] Comment on above: Performed By: #### 8 5499 ####[facility] [place] [address], [place] Glucose [Mass/Vol] 185 mg/dL High 70-100 The [facility] Comment on above: Performed By: #### 8 5499 ####[facility] [facility] [place] [address], [place] BASIC METABOLIC PANELon 12-1 Calcium [Mass/Vol] 7.9 mg/dL Low 8.6-10.3 The [facility] Comment on above: Order Comment: No: D o not add to previous draw Performed By: #### 1 0070, 68045, 68210 ####[facility] [place] [address], [place] Chloride [Moles/Vol] 104 mmol/L Normal 98-107 [facility] Comment on above: Order Comment: No: D o not add to previous draw Performed By: #### 1 0070, 44202, 90620 ####[facility] [facility] [place] [address], [place] CO2 [Moles/Vol] 22 mmol/L Normal 21-31 [facility] Comment on above: Order Comment: No: D o not add to previous draw Performed By: #### 1 0070, 41955, 26617 ####[facility] [facility] [place] [address], [place] Creatinine [Mass/Vol] 0.91 mg/dL Normal 0.70-1.30 [facility] Comment on above: Order Comment: No: D o not add to previous draw Performed By: #### 1 0070, 99864, 71989 ####[facility] [facility] [place] [address], [place] GFR/1.73 sq M.predicted among blacks MDRD (S/P/Bld) [Vol rate/Area] mL/min/{1.73_m2} Normal >60 [facility] Comment on above: Order Comment: No: D o not add to previous draw Result Comment: Calc ulation may not be valid for patients over 70 years Performed By: #### 1 0070, 97131, 65381 ####[facility] [facility] [place] [address], [place] GFR/1.73 sq M.predicted among non-blacks MDRD (S/P/Bld) [Vol rate/Area] mL/min/{1.73_m2} Normal >60 [facility] Comment on above: Order Comment: No: D o not add to previous draw Result Comment: Calc ulation may not be valid for patients over 70 years Performed By: #### 1 0070, 77321, 71162 ####[facility] [facility] [place] [address], [place] Glucose [Mass/Vol] 154 mg/dL High 70-100 The [facility] Comment on above: Order Comment: No: D o not add to previous draw Performed By: #### 1 0, 56051, 01151 ####[facility] [facility] [place] [address], [place] Potassium [Moles/Vol] 4.4 mmol/L Normal 3.5-5.1 [facility] Comment on above: Order Comment: No: D o not add to previous draw Performed By: #### 1 0, 76671, 40847 ####[facility] [facility] [place] [address], [place] Sodium [Moles/Vol] 133 mmol/L Low 136-145 The [facility] Comment on above: Order Comment: No: D o not add to previous draw Performed By: #### 1 0, 42680, 78500 ####[facility] [facility] [place] [address], [place] Urea nitrogen [Mass/Vol] 14 mg/dL Normal 7-25 [facility] Comment on above: Order Comment: No: D o not add to previous draw Performed By: #### 1 0, 55089, 35978 ####[facility] CBC COMPLETE BLOOD COUNTon 10-21-2020 Erythrocyte distribution width (RBC) [Ratio] 14.6 % Normal 11.5-15.0 [facility] Comment on above: Order Comment: No: D o not add to previous drawPT in restroom Performed By: #### 5 0608 ####[facility] [facility] [place] [address], [place] Hematocrit (Bld) [Volume fraction] 33.2 % Low 39.0-50.0 [facility] Comment on above: Order Comment: No: D o not add to previous drawPT in restroom Performed By: #### 5 0608 ####[facility] Hemoglobin (Bld) [Mass/Vol] 11.2 g/dL Low 13.0-17.0 [facility] Comment on above: Order Comment: No: D o not add to previous drawPT in restroom Performed By: #### 5 0608 ####[facility] [facility] [place] [address], [place] MCH (RBC) [Entitic mass] 32.2 pg Normal 27.0-33.0 [facility] Comment on above: Order Comment: No: D o not add to previous drawPT in restroom Performed By: #### 5 0608 ####[facility] [facility] [place] [address], [place] MCHC (RBC) [Mass/Vol] 33.7 g/dL Normal 32.0-35.0 [facility] Comment on above: Order Comment: No: D o not add to previous drawPT in restroom Performed By: #### 5 0608 ####[facility] [place] [address], [place] MCV (RBC) [Entitic vol] 95.4 fL Normal 82.0-98.0 [facility] Comment on above: Order Comment: No: D o not add to previous drawPT in restroom Performed By: #### 5 0608 ####[facility] [place] [address], [place] Nucleated RBC/100 WBC (Bld) [Ratio] 0 % Normal 0-0 [facility] Comment on above: Order Comment: No: D o not add to previous drawPT in restroom Performed By: #### 5 0608 ####[facility] [place] [address], [place] PLAT CNT 155 10*3/uL Normal 150-400 The [facility] Comment on above: Order Comment: No: D o not add to previous drawPT in restroom Performed By: #### 5 0608 ####[facility] [place] [address], [place] RBC (Bld) [#/Vol] 3.48 10*6/uL Low 4.20-5.70 [facility] Comment on above: Order Comment: No: D o not add to previous drawPT in restroom Performed By: #### 5 0608 ####[facility] [facility] [place] [address], [place] WBC (Bld) [#/Vol] 19.89 10*3/uL High 4.00-10.60 [facility] Comment on above: Order Comment: No: D o not add to previous drawPT in restroom Performed By: #### 5 0608 ####[facility] [place] [address], [place] MAGNESIUM BLOODon 08-20-2021 Magnesium [Mass/Vol] 1.7 mg/dL Low 1.9-2.7 [facility] Comment on above: Order Comment: No: D o not add to previous draw Performed By: #### 1 0070, 96411, 94241 ####[facility] [place] [address], [place] PHOSPHORUS BLOODon Phosphate [Mass/Vol] 3.1 mg/dL Normal 2.5-5.0 [facility] Comment on above: Order Comment: No: D o not add to previous draw Performed By: #### 1 0070, 37298, 36047 ####[facility] [place] [address], [place] POC GLUCOSE LABon 08-20-2021 Glucose [Mass/Vol] 160 mg/dL High 70-100 [facility] above: Performed By: #### 8 5499 ####[facility] [place] [address], [place] Glucose [Mass/Vol] 175 mg/dL High 70-100 [facility] Comment on above: Performed By: #### 8 5499 ####[facility] [place] [address], [place] Glucose [Mass/Vol] 159 mg/dL High 70-100 [facility] Comment on above: Performed By: #### 8 5499 ####[facility] [place] [address], [place] Glucose [Mass/Vol] 145 mg/dL High 70-100 [facility] Comment on above: Performed By: #### 8 5499 ####[facility] [place] [address], [place] Glucose [Mass/Vol] 152 mg/dL High 70-100 [facility] Comment on above: Performed By: #### 8 5499 ####[facility] [place] [address], [place] BASIC METABOLIC PANELon 08-02 Calcium [Mass/Vol] 8.3 mg/dL Low 8.6-10.3 [facility] Comment on above: Order Comment: No: D o not add to previous drawMissed Performed By: #### 4 1000, 84779, 30352 ####[facility] [place] [address], [place] Chloride [Moles/Vol] 103 mmol/L Normal 98-107 [facility] Comment on above: Order Comment: No: D o not add to previous drawMissed Performed By: #### 4 1000, 99178, 97895 ####[facility] [place] [address], [place] CO2 [Moles/Vol] 23 mmol/L Normal 21-31 [facility] Comment on above: Order Comment: No: D o not add to previous drawMissed Performed By: #### 4 1000, 71783, [id number] ####[facility] [place] [address], [place] Creatinine [Mass/Vol] 0.86 mg/dL Normal 0.70-1.30 [facility] Comment on above: Order Comment: No: D o not add to previous drawMissed Performed By: #### 4 1000, [id number], [id number] ####[facility] [place] [address], [place] GFR/1.73 sq M.predicted among blacks MDRD (S/P/Bld) [Vol rate/Area] mL/min/{1.73_m2} Normal >60 [facility] Comment on above: Order Comment: No: D o not add to previous drawMissed Result Comment: Calc ulation may not be valid for patients over 70 years Performed By: #### 4 1000, 32752, 91308 ####[facility] [place] [address], [place] GFR/1.73 sq M.predicted among non-blacks MDRD (S/P/Bld) [Vol rate/Area] mL/min/{1.73_m2} Normal >60 [facility] Comment on above: Order Comment: No: D o not add to previous drawMissed Result Comment: Calc ulation may not be valid for patients over 70 years Performed By: #### 4 1000, 58553, 18854 ####[facility] [place] [address], [place] Glucose [Mass/Vol] 176 mg/dL High 70-100 The [facility] Comment on above: Order Comment: No: D o not add to previous drawMissed Performed By: #### 4 1000, 58969, 38691 ####[facility] [place] [address], [place] Potassium [Moles/Vol] 4.8 mmol/L Normal 3.5-5.1 [facility] Comment on above: Order Comment: No: D o not add to previous drawMissed Performed By: #### 4 1000, 16303, 27979 ####[facility] [place] [address], [place] Sodium [Moles/Vol] 132 mmol/L Low 136-145 [facility] Comment on above: Order Comment: No: D o not add to previous drawMissed Performed By: #### 4 1000, 73456, 32736 ####[facility] [place] [address], [place] Urea nitrogen [Mass/Vol] 16 mg/dL Normal 7-25 [facility] Comment on above: Order Comment: No: D o not add to previous drawMissed Performed By: #### 4 1000, 54532, 63040 ####[facility] [place] [address], [place] CBC COMPLETE BLOOD COUNTon 10-20-2020 Erythrocyte distribution width (RBC) [Ratio] 14.6 % Normal 11.5-15.0 [facility] Comment on above: Order Comment: No: D o not add to previous drawMissed Performed By: #### 5 0608 ####[facility] Hematocrit (Bld) [Volume fraction] 38.2 % Low 39.0-50.0 [facility] Comment on above: Order Comment: No: D o not add to previous drawMissed Performed By: #### 5 0608 ####[facility] Hemoglobin (Bld) [Mass/Vol] 12.4 g/dL Low 13.0-17.0 [facility] Comment on above: Order Comment: No: D o not add to previous drawMissed Performed By: #### 5 0608 ####[address] MCH (RBC) [Entitic mass] 31.9 pg Normal 27.0-33.0 [facility] Comment on above: Order Comment: No: D o not add to previous drawMissed Performed By: #### 5 0608 ####[place] [address] [address] MCHC (RBC) [Mass/Vol] 32.5 g/dL Normal 32.0-35.0 [facility] Comment on above: Order Comment: No: D o not add to previous drawMissed Performed By: #### 5 0608 ####[address] MCV (RBC) [Entitic vol] 98.2 fL High 82.0-98.0 [facility] Comment on above: Order Comment: No: D o not add to previous drawMissed Performed By: #### 5 0608 ####[address] Nucleated RBC/100 WBC (Bld) [Ratio] 0 % Normal 0-0 [facility] Comment on above: Order Comment: No: D o not add to previous drawMissed Performed By: #### 5 0608 ####[facility] [facility] [place] [address], [place] PLAT CNT 162 10*3/uL Normal 150-400 [facility] Comment on above: Order Comment: No: D o not add to previous drawMissed Performed By: #### 5 0608 ####[facility] [facility] [place] [address], [place] RBC (Bld) [#/Vol] 3.89 10*6/uL Low 4.20-5.70 [facility] Comment on above: Order Comment: No: D o not add to previous drawMissed Performed By: #### 5 0608 ####[facility] [facility] [place] [address], [place] WBC (Bld) [#/Vol] 26.86 10*3/uL High 4.00-10.60 [facility] Comment on above: Order Comment: No: D o not add to previous drawMissed Performed By: #### 5 0608 ####[facility] [facility].[address] ABDOMEN AND PELVIS WO CON TRASTon 08-19-2021 CT ABDOMEN AND PELVIS WO CONTRAST Normal The [facility] Comment on above: Order Comment: Other , s/p Colostomy Reversal. Concerns for anastomotic leak. Please use Rectal Contrast. MAGNESIUM BLOODon 08-19-2021 Magnesium [Mass/Vol] 2.2 mg/dL Normal 1.9-2.7 [facility] Comment on above: Order Comment: No: D o not add to previous drawMissed Performed By: #### 4 1000, 84506, 92060 ####[facility] [facility] [place] [address], [place] PHOSPHORUS BLOODon Phosphate [Mass/Vol] 3.4 mg/dL Normal 2.5-5.0 [facility] Comment on above: Order Comment: No: D o not add to previous drawMissed Performed By: #### 4 1000, 25429, 15616 ####[facility] [place] [address], [place] POC GLUCOSE LABon 08-19-2021 Glucose [Mass/Vol] 146 mg/dL High 70-100 The [facility] Comment on above: Performed By: #### 8 5499 ####[facility] [place] [address], [place] Glucose [Mass/Vol] 122 mg/dL High 70-100 [facility] Comment on above: Performed By: #### 8 5499 ####[facility] [place] [address], [place] Glucose [Mass/Vol] 108 mg/dL High 70-100 [facility] Comment on above: Performed By: #### 8 5499 ####[facility] [place] [address], [place] Glucose [Mass/Vol] 153 mg/dL High 70-100 The [facility] Comment on above: Performed By: #### 8 5499 ####[facility] [place] [address], [place] BASIC METABOLIC PANELon 08-02 Calcium [Mass/Vol] 8.5 mg/dL Low 8.6-10.3 [facility] Comment on above: Order Comment: No: D o not add to previous draw Performed By: #### 1 0070, 02924, 57164 ####[facility] [place] [address], [place] Chloride [Moles/Vol] 100 mmol/L Normal 98-107 [facility] Comment on above: Order Comment: No: D o not add to previous draw Performed By: #### 1 0070, 45257, 68833 ####[facility] [place] [address], [place] CO2 [Moles/Vol] 26 mmol/L Normal 21-31 [facility] Comment on above: Order Comment: No: D o not add to previous draw Performed By: #### 1 0070, 23026, 10189 ####[facility] [place] [address], [place] Creatinine [Mass/Vol] 0.73 mg/dL Normal 0.70-1.30 [facility] Comment on above: Order Comment: No: D o not add to previous draw Performed By: #### 1 0070, 81501, 75820 ####[facility] [place] [address], [place] GFR/1.73 sq M.predicted among blacks MDRD (S/P/Bld) [Vol rate/Area] mL/min/{1.73_m2} Normal >60 [facility] Comment on above: Order Comment: No: D o not add to previous draw Result Comment: Calc ulation may not be valid for patients over 70 years Performed By: #### 1 0070, 59507, 90480 ####[facility] [place] [address], [place] GFR/1.73 sq M.predicted among non-blacks MDRD (S/P/Bld) [Vol rate/Area] mL/min/{1.73_m2} Normal >60 [facility] Comment on above: Order Comment: No: D o not add to previous draw Result Comment: Calc ulation may not be valid for patients over 70 years Performed By: #### 1 0070, 21934, 29260 ####[facility] [place] [address], [place] Glucose [Mass/Vol] 168 mg/dL High 70-100 [facility] Comment on above: Order Comment: No: D o not add to previous draw Performed By: #### 1 0, 31916, 11685 ####[facility] [place] [address], [place] Potassium [Moles/Vol] 4.3 mmol/L Normal 3.5-5.1 [facility] Comment on above: Order Comment: No: D o not add to previous draw Performed By: #### 1 0, 22677, 75144 ####[facility] [facility] [place] [address], [place] Sodium [Moles/Vol] 135 mmol/L Low 136-145 The [facility] Comment on above: Order Comment: No: D o not add to previous draw Performed By: #### 1 0, 91266, 50966 ####[facility] [facility].[address] Urea nitrogen [Mass/Vol] 15 mg/dL Normal 7-25 [facility] Comment on above: Order Comment: No: D o not add to previous draw Performed By: #### 1 0, 35534, 55020 ####[place] [address] [facility] [place] [address], [place] CBC W/DIFFon 08-18-2021 ABS NEUTROPHILS 14.1 10*3/uL High 1.6-7.6 The [facility] Comment on above: Order Comment: No: D o not add to previous draw Performed By: #### 5 3 ####[facility] [place] [address], [place] Basophils (Bld) [#/Vol] 0.0 10*3/uL Normal 0.0-0.2 [facility] Comment on above: Order Comment: No: D o not add to previous draw Performed By: #### 5 3 ####[facility] [place] [address], [place] Basophils/100 WBC (Bld) 0.0 % Normal 0.0-1.0 [facility] Comment on above: Order Comment: No: D o not add to previous draw Performed By: #### 5 0103 ####[facility] [facility] [place] [address], [place] Eosinophils (Bld) [#/Vol] 0.3 10*3/uL Normal 0.0-0.5 [facility] Comment on above: Order Comment: No: D o not add to previous draw Performed By: #### 5 0103 ####[facility] [place] [address], [place] Eosinophils/100 WBC (Bld) 1.0 % Normal 0.0-6.0 [facility] Comment on above: Order Comment: No: D o not add to previous draw Performed By: #### 5 0103 ####[facility] Erythrocyte distribution width (RBC) [Ratio] 14.5 % Normal 11.5-15.0 [facility] Comment on above: Order Comment: No: D o not add to previous draw Performed By: #### 5 0103 ####[facility] [facility] [place] [address], [place] GIANT PLATELETS Present Normal [facility] Comment on above: Order Comment: No: D o not add to previous draw Performed By: #### 5 0103 ####[facility] [facility].[address] Hematocrit (Bld) [Volume fraction] 38.5 % Low 39.0-50.0 [facility] Comment on above: Order Comment: No: D o not add to previous draw Performed By: #### 5 0103 ####[facility] [place] [address], [place] Hemoglobin (Bld) [Mass/Vol] 13.0 g/dL Normal 13.0-17.0 [facility] Comment on above: Order Comment: No: D o not add to previous draw Performed By: #### 5 0103 ####[facility] Lymphocytes (Bld) [#/Vol] 10.6 10*3/uL High 1.2-4.0 [facility] Comment on above: Order Comment: No: D o not add to previous draw Performed By: #### 5 0103 ####[facility] Lymphocytes/100 WBC (Bld) 40.4 % Normal 20.0-45.0 [facility] Comment on above: Order Comment: No: D o not add to previous draw Performed By: #### 5 0103 ####[facility] [place] [address] MCH (RBC) [Entitic mass] 32.2 pg Normal 27.0-33.0 [facility] Comment on above: Order Comment: No: D o not add to previous draw Performed By: #### 5 0103 ####[facility] MCHC (RBC) [Mass/Vol] 33.8 g/dL Normal 32.0-35.0 [facility] Comment on above: Order Comment: No: D o not add to previous draw Performed By: #### 5 0103 ####[facility] MCV (RBC) [Entitic vol] 95.3 fL Normal 82.0-98.0 [facility] Comment on above: Order Comment: No: D o not add to previous draw Performed By: #### 5 0103 ####[facility] [place] [address], [place] Monocytes (Bld) [#/Vol] 1.3 10*3/uL High 0.1-1.0 [facility] Comment on above: Order Comment: No: D o not add to previous draw Performed By: #### 5 0103 ####[facility] [place] [address], [place] MONOS 5.1 % Normal 5.0-12.0 [facility] Comment on above: Order Comment: No: D o not add to previous draw Performed By: #### 5 0103 ####[facility] [place] [address], [place] Neutrophils/100 WBC (Bld) 53.5 % Normal 40.0-72.0 [facility] Comment on above: Order Comment: No: D o not add to previous draw Performed By: #### 5 0103 ####[facility] [facility] [place] [address], [place] Nucleated RBC/100 WBC (Bld) [Ratio] 0 % Normal 0-0 [facility] Comment on above: Order Comment: No: D o not add to previous draw Performed By: #### 5 0103 ####[facility] [place] [address], [place] PLAT CNT 173 10*3/uL Normal 150-400 The [facility] Comment on above: Order Comment: No: D o not add to previous draw Performed By: #### 5 0103 ####[facility] [facility] [place] [address], [place] RBC (Bld) [#/Vol] 4.04 10*6/uL Low 4.20-5.70 The [facility] Comment on above: Order Comment: No: D o not add to previous draw Performed By: #### 5 0103 ####[facility] [place] [address], [place] SMUDGE CELLS MANY Normal The [facility] ty [facility] Comment on above: Order Comment: No: D o not add to previous draw Result Comment: Resu lt changed by [email or web address] on 08/18/2021 06:13. The previous value wasPresent. Performed By: #### 5 0103 ####[facility] [facility] [place] [address], [place] WBC (Bld) [#/Vol] 26.29 10*3/uL High 4.00-10.60 [facility] Comment on above: Order Comment: No: D o not add to previous draw Performed By: #### 5 3 ####[facility] [facility] [place] [address], [place] MAGNESIUM BLOODon 08-18-2021 Magnesium [Mass/Vol] 1.9 mg/dL Normal 1.9-2.7 [facility] Comment on above: Order Comment: No: D o not add to previous draw Performed By: #### 1 0070, 58082, 16356 ####[facility] [facility] [place] [address], [place] PHOSPHORUS BLOODon Phosphate [Mass/Vol] 3.6 mg/dL Normal 2.5-5.0 [facility] Comment on above: Order Comment: No: D o not add to previous draw Performed By: #### 1 0070, 29724, 27320 ####[facility] [facility] [place] [address], [place] POC GLUCOSE LABon 08-18-2021 Glucose [Mass/Vol] 141 mg/dL High 70-100 [facility] Comment on above: Performed By: #### 8 5499 ####[facility] [facility] [place] [address], [place] Glucose [Mass/Vol] 187 mg/dL High 70-100 [facility] Comment on above: Performed By: #### 8 5499 ####[facility] [place] [address], [place] Glucose [Mass/Vol] 168 mg/dL High 70-100 The [facility] Comment on above: Performed By: #### 8 5499 ####[facility] [place] [address], [place] Glucose [Mass/Vol] 183 mg/dL High 70-100 The [facility] Comment on above: Performed By: #### 8 5499 ####[facility] [facility] [place] [address], [place] Glucose [Mass/Vol] 149 mg/dL High 70-100 The [facility] Comment on above: Performed By: #### 8 5499 ####[facility] [facility] [place] [address], [place] Glucose [Mass/Vol] 221 mg/dL High 70-100 The [facility] Comment on above: Performed By: #### 8 5499 ####[facility] [facility] [place] [address], [place] AMMONIA BLOODon 08-17-2021 Ammonia (P) [Moles/Vol] 10 umol/L Low 16-53 [facility] Comment on above: Order Comment: Yes: Add to Previous draw if able Performed By: #### 2 1408 ####[facility] [facility] [place] [address], [place] BASIC METABOLIC PANELon 08-02 Calcium [Mass/Vol] 8.6 mg/dL Normal 8.6-10.3 The [facility] Comment on above: Order Comment: No: D o not add to previous draw Performed By: #### 0 0071 ####[facility] [facility] [place] [address], [place] Chloride [Moles/Vol] 101 mmol/L Normal 98-107 [facility] Comment on above: Order Comment: No: D o not add to previous draw Performed By: #### 0 0071 ####[facility] [place] [address], [place] CO2 [Moles/Vol] 27 mmol/L Normal 21-31 [facility] Comment on above: Order Comment: No: D o not add to previous draw Performed By: #### 0 0071 ####[facility] [place] [address], [place] Creatinine [Mass/Vol] 0.75 mg/dL Normal 0.70-1.30 [facility] Comment on above: Order Comment: No: D o not add to previous draw Performed By: #### 0 0071 ####[facility] [place] [address], [place] GFR/1.73 sq M.predicted among blacks MDRD (S/P/Bld) [Vol rate/Area] mL/min/{1.73_m2} Normal >60 [facility] Comment on above: Order Comment: No: D o not add to previous draw Result Comment: Calc ulation may not be valid for patients over 70 years Performed By: #### 0 0071 ####[facility] [place] [address], [place] GFR/1.73 sq M.predicted among non-blacks MDRD (S/P/Bld) [Vol rate/Area] mL/min/{1.73_m2} Normal >60 [facility] Comment on above: Order Comment: No: D o not add to previous draw Result Comment: Calc ulation may not be valid for patients over 70 years Performed By: #### 0 0071 ####[facility] [place] [address], [place] Glucose [Mass/Vol] 129 mg/dL High 70-100 [facility] Comment on above: Order Comment: No: D o not add to previous draw Performed By: #### 0 0071 ####[facility] Potassium [Moles/Vol] 4.0 mmol/L Normal 3.5-5.1 [facility] Comment on above: Order Comment: No: D o not add to previous draw Performed By: #### 0 0071 ####[facility] [place] [address], [place] Sodium [Moles/Vol] 135 mmol/L Low 136-145 The [facility] Comment on above: Order Comment: No: D o not add to previous draw Performed By: #### 0 0071 ####[facility] [place] [address], [place] Urea nitrogen [Mass/Vol] 11 mg/dL Normal 7-25 [facility] Comment on above: Order Comment: No: D o not add to previous draw Performed By: #### 0 0071 ####[facility] CBC COMPLETE BLOOD COUNTon 10-18-2020 Erythrocyte distribution width (RBC) [Ratio] 14.2 % Normal 11.5-15.0 [facility] Comment on above: Order Comment: No: D o not add to previous draw Performed By: #### 5 0608 ####[facility] [place] [address], [place] Hematocrit (Bld) [Volume fraction] 38.8 % Low 39.0-50.0 [facility] Comment on above: Order Comment: No: D o not add to previous draw Performed By: #### 5 0608 ####[facility] [place] [address], [place] Hemoglobin (Bld) [Mass/Vol] 13.4 g/dL Normal 13.0-17.0 [facility] Comment on above: Order Comment: No: D o not add to previous draw Performed By: #### 5 0608 ####[facility] MCH (RBC) [Entitic mass] 32.2 pg Normal 27.0-33.0 [facility] Comment on above: Order Comment: No: D o not add to previous draw Performed By: #### 5 0608 ####[facility] [facility] [place] [address], [place] MCHC (RBC) [Mass/Vol] 34.5 g/dL Normal 32.0-35.0 [facility] Comment on above: Order Comment: No: D o not add to previous draw Performed By: #### 5 0608 ####[address] MCV (RBC) [Entitic vol] 93.3 fL Normal 82.0-98.0 [facility] Comment on above: Order Comment: No: D o not add to previous draw Performed By: #### 5 0608 ####[address] Nucleated RBC/100 WBC (Bld) [Ratio] 0 % Normal 0-0 [facility] Comment on above: Order Comment: No: D o not add to previous draw Performed By: #### 5 0608 ####[place] [address] PLAT CNT 168 10*3/uL Normal 150-400 The [facility] Comment on above: Order Comment: No: D o not add to previous draw Performed By: #### 5 0608 ####[facility] [place] [address], [place] RBC (Bld) [#/Vol] 4.16 10*6/uL Low 4.20-5.70 The [facility] Comment on above: Order Comment: No: D o not add to previous draw Performed By: #### 5 0608 ####[facility] [place], [place] [id number], [place] WBC (Bld) [#/Vol] 26.64 10*3/uL High 4.00-10.60 [facility] Comment on above: Order Comment: No: D o not add to previous draw Performed By: #### 5 0608 ####[facility] [place] [address], [place] LACTATE BLOODon 08-17-2021 Lactate [Moles/Vol] 0.7 mmol/L Normal .5-2.2 [facility] Comment on above: Order Comment: Yes: Add to Previous draw if able Performed By: #### 1 0054 ####[facility] [place] [address], [place] POC GLUCOSE LABon 08-17-2021 Glucose [Mass/Vol] 146 mg/dL High 70-100 The [facility] Comment on above: Performed By: #### 8 5499 ####[facility] [place] [address], [place] Glucose [Mass/Vol] 144 mg/dL High 70-100 The [facility] Comment on above: Performed By: #### 8 5499 ####[facility] [place] [address], [place] Glucose [Mass/Vol] 150 mg/dL High 70-100 The [facility] Comment on above: Performed By: #### 8 5499 ####[facility] [place] [address], [place] Glucose [Mass/Vol] 126 mg/dL High 70-100 The [facility] Comment on above: Performed By: #### 8 5499 ####[facility] [place] [address], [place] Glucose [Mass/Vol] 166 mg/dL High 70-100 The [facility] Comment on above: Performed By: #### 8 5499 ####[facility] [place] [address], [place] Glucose [Mass/Vol] 141 mg/dL High 70-100 The [facility] Comment on above: Performed By: #### 8 5499 ####[facility] [place] [address], [place] BASIC METABOLIC PANELon 12- Calcium [Mass/Vol] 8.4 mg/dL Low 8.6-10.3 The [facility] Comment on above: Order Comment: No: D o not add to previous draw Performed By: #### [id number] ####[facility] [place] [address], [place] Chloride [Moles/Vol] 101 mmol/L Normal 98-107 The [facility] Comment on above: Order Comment: No: D o not add to previous draw Performed By: #### [id number] ####[facility] [place] [address], [place] CO2 [Moles/Vol] 27 mmol/L Normal 21-31 The [facility] Comment on above: Order Comment: No: D o not add to previous draw Performed By: #### 0 0071 ####[facility] [facility] [place] [address], [place] Creatinine [Mass/Vol] 0.75 mg/dL Normal 0.70-1.30 [facility] Comment on above: Order Comment: No: D o not add to previous draw Performed By: #### 0 0071 ####[facility] [place] [address], [place] GFR/1.73 sq M.predicted among blacks MDRD (S/P/Bld) [Vol rate/Area] mL/min/{1.73_m2} Normal >60 [facility] Comment on above: Order Comment: No: D o not add to previous draw Result Comment: Calc ulation may not be valid for patients over 70 years Performed By: #### 0 0071 ####[facility] [place] [address], [place] GFR/1.73 sq M.predicted among non-blacks MDRD (S/P/Bld) [Vol rate/Area] mL/min/{1.73_m2} Normal >60 [facility] Comment on above: Order Comment: No: D o not add to previous draw Result Comment: Calc ulation may not be valid for patients over 70 years Performed By: #### 0 0071 ####[facility] [place] [address], [place] Glucose [Mass/Vol] 146 mg/dL High 70-100 [facility] Comment on above: Order Comment: No: D o not add to previous draw Performed By: #### 0 0071 ####[facility] [facility] [place] [address], [place] Potassium [Moles/Vol] 4.4 mmol/L Normal 3.5-5.1 [facility] Comment on above: Order Comment: No: D o not add to previous draw Performed By: #### 0 0071 ####[facility] [place] [address], [place] Sodium [Moles/Vol] 135 mmol/L Low 136-145 The [facility] Comment on above: Order Comment: No: D o not add to previous draw Performed By: #### 0 0071 ####[facility] [place] [address], [place] Urea nitrogen [Mass/Vol] 11 mg/dL Normal 7-25 [facility] Comment on above: Order Comment: No: D o not add to previous draw Performed By: #### 0 0071 ####[facility] [place] [address], [place] CBC COMPLETE BLOOD COUNTon 1 10-17-2020 Erythrocyte distribution width (RBC) [Ratio] 14.1 % Normal 11.5-15.0 [facility] Comment on above: Order Comment: No: D o not add to previous draw Performed By: #### 5 0608 ####[facility] [facility] [place] [address], [place] Hematocrit (Bld) [Volume fraction] 38.5 % Low 39.0-50.0 [facility] Comment on above: Order Comment: No: D o not add to previous draw Performed By: #### 5 0608 ####[facility] Hemoglobin (Bld) [Mass/Vol] 12.8 g/dL Low 13.0-17.0 [facility] Comment on above: Order Comment: No: D o not add to previous draw Performed By: #### 5 0608 ####[facility] [place] [address], [place] MCH (RBC) [Entitic mass] 31.9 pg Normal 27.0-33.0 [facility] Comment on above: Order Comment: No: D o not add to previous draw Performed By: #### 5 0608 ####[facility] [place] [address], [place] MCHC (RBC) [Mass/Vol] 33.2 g/dL Normal 32.0-35.0 [facility] Comment on above: Order Comment: No: D o not add to previous draw Performed By: #### 5 0608 ####[facility] [facility] [place] [address], [place] MCV (RBC) [Entitic vol] 96.0 fL Normal 82.0-98.0 [facility] Comment on above: Order Comment: No: D o not add to previous draw Performed By: #### 5 0608 ####[facility] [facility] [place] [address], [place] Nucleated RBC/100 WBC (Bld) [Ratio] 0 % Normal 0-0 [facility] Comment on above: Order Comment: No: D o not add to previous draw Performed By: #### 5 0608 ####[facility] [id number], [place] PLAT CNT 142 10*3/uL Low 150-400 The [facility] Comment on above: Order Comment: No: D o not add to previous draw Performed By: #### 5 0608 ####[facility] [facility] [place] [address], [place] RBC (Bld) [#/Vol] 4.01 10*6/uL Low 4.20-5.70 The [facility] Comment on above: Order Comment: No: D o not add to previous draw Performed By: #### 5 0608 ####[facility] [facility] [place] [address], [place] WBC (Bld) [#/Vol] 23.65 10*3/uL High 4.00-10.60 [facility] Comment on above: Order Comment: No: D o not add to previous draw Performed By: #### 5 0608 ####[facility] [facility] [place] [address], [place] POC GLUCOSE LABon 08-16-2021 Glucose [Mass/Vol] 139 mg/dL High 70-100 The [facility] Comment on above: Performed By: #### 8 5499 ####[facility] [facility] [place] [address], [place] Glucose [Mass/Vol] 131 mg/dL High 70-100 The [facility] Comment on above: Performed By: #### 8 5499 ####[facility] [id number], [place] Glucose [Mass/Vol] 138 mg/dL High 70-100 The [facility] Comment on above: Performed By: #### 8 5499 ####[facility] [place] [address], [place] Glucose [Mass/Vol] 149 mg/dL High 70-100 The [facility] Comment on above: Performed By: #### 8 5499 ####[facility] [place] [address], [place] Glucose [Mass/Vol] 136 mg/dL High 70-100 The [facility] Comment on above: Performed By: #### 8 5499 ####[facility] [facility] [place] [address], [place] BASIC METABOLIC PANELon 12- Calcium [Mass/Vol] 8.0 mg/dL Low 8.6-10.3 The [facility] Comment on above: Order Comment: No: D o not add to previous draw Performed By: #### 1 0070, 50250, 71306 ####[facility] [place] [address], [place] Chloride [Moles/Vol] 102 mmol/L Normal 98-107 The [facility] Comment on above: Order Comment: No: D o not add to previous draw Performed By: #### 1 0, 08176, 64650 ####[facility] [facility] [place] [address], [place] CO2 [Moles/Vol] 28 mmol/L Normal 21-31 [facility] Comment on above: Order Comment: No: D o not add to previous draw Performed By: #### 1 0070, 44979, 40012 ####[facility] [place] [address], [place] Creatinine [Mass/Vol] 0.71 mg/dL Normal 0.70-1.30 [facility] Comment on above: Order Comment: No: D o not add to previous draw Performed By: #### 1 0070, 10059, 09886 ####[facility] [place] [address], [place] GFR/1.73 sq M.predicted among blacks MDRD (S/P/Bld) [Vol rate/Area] mL/min/{1.73_m2} Normal >60 [facility] Comment on above: Order Comment: No: D o not add to previous draw Result Comment: Calc ulation may not be valid for patients over 70 years Performed By: #### 1 0070, 43825, 92632 ####[facility] [place] [address], [place] GFR/1.73 sq M.predicted among non-blacks MDRD (S/P/Bld) [Vol rate/Area] mL/min/{1.73_m2} Normal >60 [facility] Comment on above: Order Comment: No: D o not add to previous draw Result Comment: Calc ulation may not be valid for patients over 70 years Performed By: #### 1 0070, 06098, 63965 ####[facility] [facility] [place] [address], [place] Glucose [Mass/Vol] 163 mg/dL High 70-100 The [facility] Comment on above: Order Comment: No: D o not add to previous draw Performed By: #### 1 0070, 10030, 91870 ####[facility] [place] [address], [place] Potassium [Moles/Vol] 4.0 mmol/L Normal 3.5-5.1 [facility] Comment on above: Order Comment: No: D o not add to previous draw Performed By: #### 1 0070, 14665, 71653 ####[facility] [place] [address], [place] Sodium [Moles/Vol] 135 mmol/L Low 136-145 [facility]: Order Comment: No: D o not add to previous draw Performed By: #### 1 0070, 24266, 53002 ####[facility] [facility] [place] [address], [place] Urea nitrogen [Mass/Vol] 10 mg/dL Normal 7-25 [facility] Comment on above: Order Comment: No: D o not add to previous draw Performed By: #### 1 0070, 61963, 21260 ####[facility] [facility].[address] CBC COMPLETE BLOOD COUNTon 10-16-2020 Erythrocyte distribution width (RBC) [Ratio] 14.3 % Normal 11.5-15.0 [facility] Comment on above: Order Comment: No: D o not add to previous draw Performed By: #### 5 0608 ####[facility] [facility].[address] Hematocrit (Bld) [Volume fraction] 37.2 % Low 39.0-50.0 [facility] Comment on above: Order Comment: No: D o not add to previous draw Performed By: #### 5 0608 ####[place] [address] [facility].[address] Hemoglobin (Bld) [Mass/Vol] 12.2 g/dL Low 13.0-17.0 [facility] Comment on above: Order Comment: No: D o not add to previous draw Performed By: #### 5 0608 ####[facility] [facility] [place] [address], [place] MCH (RBC) [Entitic mass] 31.9 pg Normal 27.0-33.0 [facility] Comment on above: Order Comment: No: D o not add to previous draw Performed By: #### 5 0608 ####[facility] [facility] [place] [address], [place] MCHC (RBC) [Mass/Vol] 32.8 g/dL Normal 32.0-35.0 [facility] Comment on above: Order Comment: No: D o not add to previous draw Performed By: #### 5 0608 ####[facility] [place] [address], [place] MCV (RBC) [Entitic vol] 97.1 fL Normal 82.0-98.0 [facility] Comment on above: Order Comment: No: D o not add to previous draw Performed By: #### 5 0608 ####[facility] [facility].[address] Nucleated RBC/100 WBC (Bld) [Ratio] 0 % Normal 0-0 [facility] Comment on above: Order Comment: No: D o not add to previous draw Performed By: #### 5 0608 ####[facility] [place] [address], [place] PLAT CNT 156 10*3/uL Normal 150-400 The [facility] Comment on above: Order Comment: No: D o not add to previous draw Performed By: #### 5 0608 ####[address] RBC (Bld) [#/Vol] 3.83 10*6/uL Low 4.20-5.70 The [facility] Comment on above: Order Comment: No: D o not add to previous draw Performed By: #### 5 0608 ####[facility] [facility] [place] [address], [place] WBC (Bld) [#/Vol] 25.37 10*3/uL High 4.00-10.60 [facility] Comment on above: Order Comment: No: D o not add to previous draw Performed By: #### 5 0608 ####[facility] [facility] [place] [address], [place] MAGNESIUM BLOODon 08-15-2021 Magnesium [Mass/Vol] 2.0 mg/dL Normal 1.9-2.7 [facility] Comment on above: Order Comment: No: D o not add to previous draw Performed By: #### 1 0070, 80702, 69969 ####[facility] [place] [address], [place] PHOSPHORUS BLOODon Phosphate [Mass/Vol] 2.6 mg/dL Normal 2.5-5.0 [facility] Comment on above: Order Comment: No: D o not add to previous draw Performed By: #### 1 0070, 51605, 00956 ####[facility] [place] [address], [place] POC GLUCOSE LABon 08-15-2021 Glucose [Mass/Vol] 154 mg/dL High 70-100 [facility] above: Performed By: #### 8 5499 ####[facility] [place] [address], [place] Glucose [Mass/Vol] 142 mg/dL High 70-100 [facility] above: Performed By: #### 8 5499 ####[facility] [place] [address], [place] Glucose [Mass/Vol] 162 mg/dL High 70-100 [facility] Comment on above: Performed By: #### 8 5499 ####[facility] [place] [address], [place] Glucose [Mass/Vol] 149 mg/dL High 70-100 [facility] Comment on above: Performed By: #### 8 5499 ####[facility] [place] [address], [place] Glucose [Mass/Vol] 179 mg/dL High 70-100 [facility] Comment on above: Performed By: #### 8 4789 ####[facility] [facility] [place] [address], [place] BASIC METABOLIC PANELon 12-1 Calcium [Mass/Vol] 8.2 mg/dL Low 8.6-10.3 [facility] Comment on above: Order Comment: No: D o not add to previous draw Performed By: #### 4 1000, 17426, 40462 ####[facility] [place] [address], [place] Chloride [Moles/Vol] 101 mmol/L Normal 98-107 [facility] Comment on above: Order Comment: No: D o not add to previous draw Performed By: #### 4 1000, 79482, 52368 ####[facility] [facility] [place] [address], [place] CO2 [Moles/Vol] 31 mmol/L Normal 21-31 [facility] Comment on above: Order Comment: No: D o not add to previous draw Performed By: #### 4 1000, 11164, 15248 ####[facility] [facility] [place] [address], [place] Creatinine [Mass/Vol] 0.85 mg/dL Normal 0.70-1.30 [facility] Comment on above: Order Comment: No: D o not add to previous draw Performed By: #### 4 1000, 85456, 06018 ####[facility] [facility] [place] [address], [place] GFR/1.73 sq M.predicted among blacks MDRD (S/P/Bld) [Vol rate/Area] mL/min/{1.73_m2} Normal >60 [facility] Comment on above: Order Comment: No: D o not add to previous draw Result Comment: Calc ulation may not be valid for patients over 70 years Performed By: #### 4 1000, 08830, 91098 ####[facility] [facility] [place] [address], [place] GFR/1.73 sq M.predicted among non-blacks MDRD (S/P/Bld) [Vol rate/Area] mL/min/{1.73_m2} Normal >60 [facility] Comment on above: Order Comment: No: D o not add to previous draw Result Comment: Calc ulation may not be valid for patients over 70 years Performed By: #### 4 1000, 66016, 60090 ####[facility] [facility] [id number], [place] Glucose [Mass/Vol] 158 mg/dL High 70-100 The [facility] Comment on above: Order Comment: No: D o not add to previous draw Performed By: #### 4 1000, 51833, 97716 ####[facility] [facility] [place] [address], [place] Potassium [Moles/Vol] 3.8 mmol/L Normal 3.5-5.1 [facility] Comment on above: Order Comment: No: D o not add to previous draw Performed By: #### 4 999, 17216, 26636 ####[facility] [facility] [place] [address], [place] Sodium [Moles/Vol] 137 mmol/L Normal 136-145 The [facility] Comment on above: Order Comment: No: D o not add to previous draw Performed By: #### 4 999, 95954, 28688 ####[facility] [facility] [place] [address], [place] Urea nitrogen [Mass/Vol] 10 mg/dL Normal 7-25 [facility] Comment on above: Order Comment: No: D o not add to previous draw Performed By: #### 4 1000, 82578, 03226 ####[facility] [place] [address], [place] Calcium [Mass/Vol] 8.3 mg/dL Low 8.6-10.3 The [facility] Comment on above: Order Comment: No: D o not add to previous draw Performed By: #### 0 0071, 53742 ####[facility] [place] [address], [place] Chloride [Moles/Vol] 100 mmol/L Normal 98-107 [facility] Comment on above: Order Comment: No: D o not add to previous draw Performed By: #### 0 0071, 25639 ####[facility] [place] [address], [place] CO2 [Moles/Vol] 30 mmol/L Normal 21-31 [facility] Comment on above: Order Comment: No: D o not add to previous draw Performed By: #### 0 0071, 60849 ####[facility] [place] [address], [place] Creatinine [Mass/Vol] 0.93 mg/dL Normal 0.70-1.30 [facility] Comment on above: Order Comment: No: D o not add to previous draw Performed By: #### 0 0071, 57554 ####[facility] [place] [address], [place] GFR/1.73 sq M.predicted among blacks MDRD (S/P/Bld) [Vol rate/Area] mL/min/{1.73_m2} Normal >60 [facility] Comment on above: Order Comment: No: D o not add to previous draw Result Comment: Calc ulation may not be valid for patients over 70 years Performed By: #### 0 0071, 07040 ####[facility] [place] [address], [place] GFR/1.73 sq M.predicted among non-blacks MDRD (S/P/Bld) [Vol rate/Area] mL/min/{1.73_m2} Normal >60 [facility] Comment on above: Order Comment: No: D o not add to previous draw Result Comment: Calc ulation may not be valid for patients over 70 years Performed By: #### 0 0071, 94073 ####[facility] [facility] [place] [address], [place] Glucose [Mass/Vol] 144 mg/dL High 70-100 The [facility] Comment on above: Order Comment: No: D o not add to previous draw Performed By: #### 0 0071, 31119 ####[facility] [facility] [place] [address], [place] Potassium [Moles/Vol] 4.3 mmol/L Normal 3.5-5.1 [facility] Comment on above: Order Comment: No: D o not add to previous draw Performed By: #### 0 0071, 73312 ####[place] [address] [facility] [place] [address], [place] Sodium [Moles/Vol] 137 mmol/L Normal 136-145 The [facility] Comment on above: Order Comment: No: D o not add to previous draw Performed By: #### 0 0071, 89910 ####[place] [address] [facility] [place] [address], [place] Urea nitrogen [Mass/Vol] 10 mg/dL Normal 7-25 [facility] Comment on above: Order Comment: No: D o not add to previous draw Performed By: #### 0 0071, 82189 ####[place] [address] [facility].[address] CBC COMPLETE BLOOD COUNTon 10-15-2020 Erythrocyte distribution width (RBC) [Ratio] 14.4 % Normal 11.5-15.0 [facility] Comment on above: Order Comment: No: D o not add to previous draw Performed By: #### 5 0608 ####[facility] [facility] [place] [address], [place] Hematocrit (Bld) [Volume fraction] 36.0 % Low 39.0-50.0 [facility] Comment on above: Order Comment: No: D o not add to previous draw Performed By: #### 5 0608 ####[facility] [facility].[address] Hemoglobin (Bld) [Mass/Vol] 12.2 g/dL Low 13.0-17.0 [facility] Comment on above: Order Comment: No: D o not add to previous draw Performed By: #### 5 0608 ####[facility] MCH (RBC) [Entitic mass] 32.3 pg Normal 27.0-33.0 [facility] Comment on above: Order Comment: No: D o not add to previous draw Performed By: #### 5 0608 ####[facility] MCHC (RBC) [Mass/Vol] 33.9 g/dL Normal 32.0-35.0 [facility] Comment on above: Order Comment: No: D o not add to previous draw Performed By: #### 5 0608 ####[place] [address] [facility].[address] MCV (RBC) [Entitic vol] 95.2 fL Normal 82.0-98.0 [facility] Comment on above: Order Comment: No: D o not add to previous draw Performed By: #### 5 0608 ####[facility] Nucleated RBC/100 WBC (Bld) [Ratio] 0 % Normal 0-0 [facility] Comment on above: Order Comment: No: D o not add to previous draw Performed By: #### 5 0608 ####[facility] [place] [address], [place] PLAT CNT 153 10*3/uL Normal 150-400 The [facility] Comment on above: Order Comment: No: D o not add to previous draw Performed By: #### 5 0608 ####[facility] [place] [address], [place] RBC (Bld) [#/Vol] 3.78 10*6/uL Low 4.20-5.70 The [facility] Comment on above: Order Comment: No: D o not add to previous draw Performed By: #### 5 0608 ####[facility] [place] [address], [place] WBC (Bld) [#/Vol] 22.45 10*3/uL High 4.00-10.60 [facility] Comment on above: Order Comment: No: D o not add to previous draw Performed By: #### 5 0608 ####[facility] [facility] [place] [address], [place] Erythrocyte distribution width (RBC) [Ratio] 14.3 % Normal 11.5-15.0 [facility] Comment on above: Order Comment: No: D o not add to previous draw Performed By: #### 5 0608 ####[place] [address] [facility] [place] [address], [place] Hematocrit (Bld) [Volume fraction] 37.3 % Low 39.0-50.0 [facility] Comment on above: Order Comment: No: D o not add to previous draw Performed By: #### 5 0608 ####[facility] [facility] [place] [address], [place] Hemoglobin (Bld) [Mass/Vol] 12.5 g/dL Low 13.0-17.0 [facility] Comment on above: Order Comment: No: D o not add to previous draw Performed By: #### 5 0608 ####[facility] [place] [address], [place] MCH (RBC) [Entitic mass] 32.1 pg Normal 27.0-33.0 [facility] Comment on above: Order Comment: No: D o not add to previous draw Performed By: #### 5 0608 ####[facility] [facility].[address] MCHC (RBC) [Mass/Vol] 33.5 g/dL Normal 32.0-35.0 [facility] Comment on above: Order Comment: No: D o not add to previous draw Performed By: #### 5 0608 ####[facility] [facility].[address] MCV (RBC) [Entitic vol] 95.9 fL Normal 82.0-98.0 [facility] Comment on above: Order Comment: No: D o not add to previous draw Performed By: #### 5 [id number] ####[place] [id number] [address] Nucleated RBC/100 WBC (Bld) [Ratio] 0 % Normal 0-0 [facility] Comment on above: Order Comment: No: D o not add to previous draw Performed By: #### 5 [id number] ####[address] PLAT CNT 156 10*3/uL Normal 150-400 [facility] Comment on above: Order Comment: No: D o not add to previous draw Performed By: #### 5 [address]608 ####[address] RBC (Bld) [#/Vol] 3.89 10*6/uL Low 4.20-5.70 [facility] Comment on above: Order Comment: No: D o not add to previous draw Performed By: #### 5 0608 ####[facility] [place] [address].[place] [address], [place] WBC (Bld) [#/Vol] 24.62 10*3/uL High 4.00-10.60 [facility] Comment on above: Order Comment: No: D o not add to previous draw Performed By: #### 5 0608 ####[facility] [place] [address], [place] LACTATE BLOODon 08-14-2021 Lactate [Moles/Vol] 1.2 mmol/L Normal .5-2.2 [facility] Comment on above: Order Comment: No: D o not add to previous draw Performed By: #### 1 0054 ####[facility] [facility] [place] [address], [place] MAGNESIUM BLOODon 08-14-2021 Magnesium [Mass/Vol] 2.4 mg/dL Normal 1.9-2.7 [facility] Comment on above: Order Comment: No: D o not add to previous draw Performed By: #### 4 1000, 54638, 94194 ####[facility] Magnesium [Mass/Vol] 2.3 mg/dL Normal 1.9-2.7 [facility] Comment on above: Order Comment: No: D o not add to previous draw Performed By: #### 0 0071, 84021 ####[facility] [facility].[address] Operative Reporton 1 Operative Report Normal The [facility] PHOSPHORUS BLOODon 1 Phosphate [Mass/Vol] 1.8 mg/dL Low 2.5-5.0 [facility] Comment on above: Order Comment: No: D o not add to previous draw Performed By: #### 4 1000, 98004, 94613 ####[facility] [place] [address], [place] POC GLUCOSE LABon 08-14-2021 Glucose [Mass/Vol] 156 mg/dL High 70-100 The [facility] Comment on above: Performed By: #### 8 5499 ####[facility] [place] [address], [place] Glucose [Mass/Vol] 168 mg/dL High 70-100 The [facility] Comment on above: Performed By: #### 8 5499 ####[facility] [place] [address], [place] Glucose [Mass/Vol] 145 mg/dL High 70-100 The [facility] Comment on above: Performed By: #### 8 5499 ####[facility] [place] [address], [place] Glucose [Mass/Vol] 157 mg/dL High 70-100 The [facility] Comment on above: Performed By: #### 8 5499 ####[facility] [place] [address], [place] Glucose [Mass/Vol] 153 mg/dL High 70-100 The [facility] Comment on above: Performed By: #### 8 5499 ####[facility] [place] [address], [place] BASIC METABOLIC PANELon 12- Calcium [Mass/Vol] 8.2 mg/dL Low 8.6-10.3 The [facility] Comment on above: Order Comment: No: D o not add to previous draw Performed By: #### 1 0, 95561, 69814 ####[facility] [place] [address], [place] Chloride [Moles/Vol] 104 mmol/L Normal 98-107 [facility] Comment on above: Order Comment: No: D o not add to previous draw Performed By: #### 1 0, 36038, 61971 ####[facility] [place] [address], [place] CO2 [Moles/Vol] 27 mmol/L Normal 21-31 [facility] Comment on above: Order Comment: No: D o not add to previous draw Performed By: #### 1 0070, 01200, 93061 ####[facility] [place] [address], [place] Creatinine [Mass/Vol] 0.87 mg/dL Normal 0.70-1.30 [facility] Comment on above: Order Comment: No: D o not add to previous draw Performed By: #### 1 0070, 86376, 31818 ####[facility] [place] [address], [place] GFR/1.73 sq M.predicted among blacks MDRD (S/P/Bld) [Vol rate/Area] mL/min/{1.73_m2} Normal >60 [facility] Comment on above: Order Comment: No: D o not add to previous draw Result Comment: Calc ulation may not be valid for patients over 70 years Performed By: #### 1 0070, 36774, 24473 ####[facility] [facility] [place] [address], [place] GFR/1.73 sq M.predicted among non-blacks MDRD (S/P/Bld) [Vol rate/Area] mL/min/{1.73_m2} Normal >60 [facility] Comment on above: Order Comment: No: D o not add to previous draw Result Comment: Calc ulation may not be valid for patients over 70 years Performed By: #### 1 0070, 87501, 41398 ####[facility] [place] [address], [place] Glucose [Mass/Vol] 172 mg/dL High 70-100 [facility] Comment on above: Order Comment: No: D o not add to previous draw Performed By: #### 1 0070, 75334, 02051 ####[facility] Potassium [Moles/Vol] 4.0 mmol/L Normal 3.5-5.1 [facility] Comment on above: Order Comment: No: D o not add to previous draw Performed By: #### 1 0070, 50283, 40330 ####[facility] [place] [address], [place] Sodium [Moles/Vol] 137 mmol/L Normal 136-145 The [facility] Comment on above: Order Comment: No: D o not add to previous draw Performed By: #### 1 0070, 53379, 81929 ####[facility] [place] [address], [place] Urea nitrogen [Mass/Vol] 10 mg/dL Normal 7-25 [facility] Comment on above: Order Comment: No: D o not add to previous draw Performed By: #### 1 0, 97654, 92489 ####[facility] CBC COMPLETE BLOOD COUNTon 10-14-2020 Erythrocyte distribution width (RBC) [Ratio] 14.5 % Normal 11.5-15.0 [facility] Comment on above: Order Comment: No: D o not add to previous draw Performed By: #### 5 0608 ####[facility] [place] [address], [place] Hematocrit (Bld) [Volume fraction] 38.5 % Low 39.0-50.0 [facility] Comment on above: Order Comment: No: D o not add to previous draw Performed By: #### 5 0608 ####[facility] [place] [address], [place] Hemoglobin (Bld) [Mass/Vol] 12.5 g/dL Low 13.0-17.0 [facility] Comment on above: Order Comment: No: D o not add to previous draw Performed By: #### 5 0608 ####[facility]3000 [facility].[address] MCH (RBC) [Entitic mass] 31.7 pg Normal 27.0-33.0 [facility] Comment on above: Order Comment: No: D o not add to previous draw Performed By: #### 5 0608 ####[facility] [facility] [place] [address], [place] MCHC (RBC) [Mass/Vol] 32.5 g/dL Normal 32.0-35.0 [facility] Comment on above: Order Comment: No: D o not add to previous draw Performed By: #### 5 0608 ####[facility] [facility] [place] [address], [place] MCV (RBC) [Entitic vol] 97.7 fL Normal 82.0-98.0 [facility] Comment on above: Order Comment: No: D o not add to previous draw Performed By: #### 5 0608 ####[facility] [facility].[address] Nucleated RBC/100 WBC (Bld) [Ratio] 0 % Normal 0-0 [facility] Comment on above: Order Comment: No: D o not add to previous draw Performed By: #### 5 0608 ####[facility] [place] [address], [place] PLAT CNT 160 10*3/uL Normal 150-400 The [facility] Comment on above: Order Comment: No: D o not add to previous draw Performed By: #### 5 0608 ####[facility] [place] [address].[place] [address], [place] RBC (Bld) [#/Vol] 3.94 10*6/uL Low 4.20-5.70 [facility] Comment on above: Order Comment: No: D o not add to previous draw Performed By: #### 5 0608 ####[facility] [facility] [place] [address], [place] WBC (Bld) [#/Vol] 26.01 10*3/uL High 4.00-10.60 [facility] Comment on above: Order Comment: No: D o not add to previous draw Performed By: #### 5 0608 ####[facility] [facility] [place] [address], [place] MAGNESIUM BLOODon 08-13-2021 Magnesium [Mass/Vol] 1.6 mg/dL Low 1.9-2.7 [facility] Comment on above: Order Comment: No: D o not add to previous draw Performed By: #### 1 0070, 40367, 19375 ####[facility] [facility] [place] [address], [place] PHOSPHORUS BLOODon Phosphate [Mass/Vol] 2.3 mg/dL Low 2.5-5.0 [facility] Comment on above: Order Comment: No: D o not add to previous draw Performed By: #### 1 0070, 76672, 77977 ####[facility] [facility] [place] [address], [place] POC GLUCOSE LABon 08-13-2021 Glucose [Mass/Vol] 159 mg/dL High 70-100 [facility] Comment on above: Performed By: #### 8 5499 ####[facility] [facility] [place] [address], [place] Glucose [Mass/Vol] 174 mg/dL High 70-100 [facility] Comment on above: Performed By: #### 8 5499 ####[facility] [facility] [place] [address], [place] Glucose [Mass/Vol] 172 mg/dL High 70-100 [facility] Comment on above: Performed By: #### 8 5499 ####[facility] [place] [address], [place] Glucose [Mass/Vol] 155 mg/dL High 70-100 The [facility] Comment on above: Performed By: #### 8 5499 ####[facility] [place] [address], [place] Glucose [Mass/Vol] 168 mg/dL High 70-100 The [facility] Comment on above: Performed By: #### 8 5499 ####[facility] [place] [address], [place] Glucose [Mass/Vol] 149 mg/dL High 70-100 The [facility] Comment on above: Performed By: #### 8 5499 ####[facility] [place] [address], [place] BASIC METABOLIC PANELon 12- Calcium [Mass/Vol] 8.5 mg/dL Low 8.6-10.3 The [facility] Comment on above: Order Comment: No: D o not add to previous draw Performed By: #### 0 0071, 21402, 55300 ####[facility] [place] [address], [place] Chloride [Moles/Vol] 103 mmol/L Normal 98-107 [facility] Comment on above: Order Comment: No: D o not add to previous draw Performed By: #### 0 0071, 02364, 74153 ####[facility] [place] [address], [place] CO2 [Moles/Vol] 26 mmol/L Normal 21-31 [facility] Comment on above: Order Comment: No: D o not add to previous draw Performed By: #### 0 0071, 05766, 76518 ####[facility] [place] [address], [place] Creatinine [Mass/Vol] 0.79 mg/dL Normal 0.70-1.30 [facility] Comment on above: Order Comment: No: D o not add to previous draw Performed By: #### 0 0071, 23340, 87383 ####[facility] [place] [address], [place] GFR/1.73 sq M.predicted among blacks MDRD (S/P/Bld) [Vol rate/Area] mL/min/{1.73_m2} Normal >60 [facility] Comment on above: Order Comment: No: D o not add to previous draw Result Comment: Calc ulation may not be valid for patients over 70 years Performed By: #### 0 0071, 27206, 94776 ####[facility] [place] [address], [place] GFR/1.73 sq M.predicted among non-blacks MDRD (S/P/Bld) [Vol rate/Area] mL/min/{1.73_m2} Normal >60 [facility] Comment on above: Order Comment: No: D o not add to previous draw Result Comment: Calc ulation may not be valid for patients over 70 years Performed By: #### 0 0071, 82734, 71034 ####[facility] [place] [address], [place] Glucose [Mass/Vol] 162 mg/dL High 70-100 The [facility] Comment on above: Order Comment: No: D o not add to previous draw Performed By: #### 0 0071, 79742, 13657 ####[facility] [place] [address], [place] Potassium [Moles/Vol] 3.7 mmol/L Normal 3.5-5.1 [facility] Comment on above: Order Comment: No: D o not add to previous draw Performed By: #### 0 0071, 73371, 40819 ####[facility] Sodium [Moles/Vol] 137 mmol/L Normal 136-145 The [facility] Comment on above: Order Comment: No: D o not add to previous draw Performed By: #### 0 0071, 20112, 70407 ####[facility] [place] [address], [place] Urea nitrogen [Mass/Vol] 15 mg/dL Normal 7-25 [facility] Comment on above: Order Comment: No: D o not add to previous draw Performed By: #### 0 0071, 58623, 57800 ####[facility]3000 [facility].[address] CBC COMPLETE BLOOD COUNTon 1 10-13-2020 Erythrocyte distribution width (RBC) [Ratio] 14.5 % Normal 11.5-15.0 [facility] Comment on above: Order Comment: No: D o not add to previous draw Performed By: #### 5 0608 ####[facility] [facility].[address] Hematocrit (Bld) [Volume fraction] 42.4 % Normal 39.0-50.0 [facility] Comment on above: Order Comment: No: D o not add to previous draw Performed By: #### 5 0608 ####[facility] [facility] [place] [address], [place] Hemoglobin (Bld) [Mass/Vol] 13.6 g/dL Normal 13.0-17.0 [facility] Comment on above: Order Comment: No: D o not add to previous draw Performed By: #### 5 0608 ####[facility] [place] [address], [place] MCH (RBC) [Entitic mass] 31.6 pg Normal 27.0-33.0 [facility] Comment on above: Order Comment: No: D o not add to previous draw Performed By: #### 5 0608 ####[facility] [facility].[address] MCHC (RBC) [Mass/Vol] 32.1 g/dL Normal 32.0-35.0 [facility] Comment on above: Order Comment: No: D o not add to previous draw Performed By: #### 5 0608 ####[facility] [facility] [place] [address], [place] MCV (RBC) [Entitic vol] 98.4 fL High 82.0-98.0 [facility] Comment on above: Order Comment: No: D o not add to previous draw Performed By: #### 5 0608 ####[facility] [facility] [place] [address], [place] Nucleated RBC/100 WBC (Bld) [Ratio] 0 % Normal 0-0 [facility] Comment on above: Order Comment: No: D o not add to previous draw Performed By: #### 5 0608 ####[facility] [facility] [place] [address], [place] PLAT CNT 203 10*3/uL Normal 150-400 The [facility] Comment on above: Order Comment: No: D o not add to previous draw Performed By: #### 5 0608 ####[address] [place] [address], [place] RBC (Bld) [#/Vol] 4.31 10*6/uL Normal 4.20-5.70 [facility] Comment on above: Order Comment: No: D o not add to previous draw Performed By: #### 5 0608 ####[facility] [place] [address], [place] WBC (Bld) [#/Vol] 33.31 10*3/uL High 4.00-10.60 [facility] Comment on above: Order Comment: No: D o not add to previous draw Performed By: #### 5 0608 ####[facility] [place] [address], [place] MAGNESIUM BLOODon 08-12-2021 Magnesium [Mass/Vol] 1.7 mg/dL Low 1.9-2.7 [facility] Comment on above: Order Comment: No: D o not add to previous draw Performed By: #### 0 0071, 55628, 98102 ####[facility] [place] [address], [place] PHOSPHORUS BLOODon Phosphate [Mass/Vol] 3.3 mg/dL Normal 2.5-5.0 [facility] Comment on above: Order Comment: No: D o not add to previous draw Performed By: #### 0 0071, 09440, 74945 ####[facility] [place] [address], [place] POC GLUCOSE LABon 08-12-2021 Glucose [Mass/Vol] 176 mg/dL High 70-100 [facility] on above: Performed By: #### 8 5499 ####[facility] [place] [address], [place] Glucose [Mass/Vol] 165 mg/dL High 70-100 [facility] Comment on above: Performed By: #### 8 5499 ####[facility] [place] [address], [place] Glucose [Mass/Vol] 153 mg/dL High 70-100 [facility] Comment on above: Performed By: #### 8 5499 ####[facility] [place] [address], [place] Glucose [Mass/Vol] 175 mg/dL High 70-100 [facility] Comment on above: Performed By: #### 8 5499 ####[facility] [place] [address], [place] Glucose [Mass/Vol] 171 mg/dL High 70-100 The [facility] Comment on above: Performed By: #### 8 5499 ####[facility] [place] [address], [place] POC GLUCOSE LABon 08-11-2021 Glucose [Mass/Vol] 211 mg/dL High 70-100 The [facility] Comment on above: Performed By: #### 8 5499 ####[facility] [place] [address], [place] Glucose [Mass/Vol] 265 mg/dL High 70-100 The [facility] Comment on above: Performed By: #### 8 5499 ####[facility] [place] [address], [place] Glucose [Mass/Vol] 106 mg/dL High 70-100 The [facility] Comment on above: Performed By: #### 8 5499 ####[facility] [place] [address], [place] BASIC METABOLIC PANELon 11-3 Calcium [Mass/Vol] 9.1 mg/dL Normal 8.6-10.3 The [facility] Comment on above: Performed By: #### 0 0071 ####[facility] [place] [address], [place] Chloride [Moles/Vol] 101 mmol/L Normal 98-107 [facility] Comment on above: Performed By: #### 0 0071 ####[facility] [place] [address], [place] CO2 [Moles/Vol] 27 mmol/L Normal 21-31 [facility] Comment on above: Performed By: #### 0 0071 ####[facility] [place] [address], [place] Creatinine [Mass/Vol] 0.92 mg/dL Normal 0.70-1.30 [facility] Comment on above: Performed By: #### 0 0071 ####[facility] [place] [address], [place] GFR/1.73 sq M.predicted among blacks MDRD (S/P/Bld) [Vol rate/Area] mL/min/{1.73_m2} Normal >60 [facility] Comment on above: Result Comment: Calc ulation may not be valid for patients over 70 years Performed By: #### 0 0071 ####[facility] [place] [address], [place] GFR/1.73 sq M.predicted among non-blacks MDRD (S/P/Bld) [Vol rate/Area] mL/min/{1.73_m2} Normal >60 [facility] Comment on above: Result Comment: Calc ulation may not be valid for patients over 70 years Performed By: #### 0 0071 ####[facility] [place] [address], [place] Glucose [Mass/Vol] 104 mg/dL High 70-100 The [facility] Comment on above: Performed By: #### 0 0071 ####[facility] [place] [address], [place] Potassium [Moles/Vol] 3.5 mmol/L Normal 3.5-5.1 [facility] Comment on above: Performed By: #### 0 0071 ####[facility] [place] [address], [place] Sodium [Moles/Vol] 136 mmol/L Normal 136-145 The [facility] Comment on above: Performed By: #### 0 0071 ####[facility] [place] [address], [place] Urea nitrogen [Mass/Vol] 23 mg/dL Normal 7-25 [facility] Comment on above: Performed By: #### 0 0071 ####[facility] [facility] [place] [address], [place] CBC W/DIFFon 08-01-2021 ABS IMM GRANS 0.1 10*3/uL Normal 0.0-0.2 The [facility] Comment on above: Performed By: #### 5 0103 ####[facility] [facility] [place] [address], [place] ABS NEUTROPHILS 4.9 10*3/uL Normal 1.6-7.6 The [facility] Comment on above: Performed By: #### 5 0103 ####[facility] [facility] [place] [address], [place] Basophils (Bld) [#/Vol] 0.1 10*3/uL Normal 0.0-0.2 [facility] Comment on above: Performed By: #### 5 0103 ####[facility] [facility] [place] [address], [place] Basophils/100 WBC (Bld) 0.3 % Normal 0.0-1.0 [facility] Comment on above: Performed By: #### 5 0103 ####[facility] [facility] [place] [address], [place] Eosinophils (Bld) [#/Vol] 0.1 10*3/uL Normal 0.0-0.5 [facility] Comment on above: Performed By: #### 5 0103 ####[facility] [facility] [place] [address], [place] Eosinophils/100 WBC (Bld) 0.2 % Normal 0.0-6.0 [facility] Comment on above: Performed By: #### 5 3 ####[facility] [facility].[address] Erythrocyte distribution width (RBC) [Ratio] 14.6 % Normal 11.5-15.0 [facility] Comment on above: Performed By: #### 5 0103 ####[facility] [facility].[address] Hematocrit (Bld) [Volume fraction] 44.2 % Normal 39.0-50.0 [facility] Comment on above: Performed By: #### 5 0103 ####[facility] [facility].[address] Hemoglobin (Bld) [Mass/Vol] 14.3 g/dL Normal 13.0-17.0 [facility] Comment on above: Performed By: #### 5 0103 ####[facility] IMMATURE GRANS 0.3 % Normal 0.0-1.[address] [facility] Comment on above: Performed By: #### 5 0103 ####[facility] [facility].[address] Lymphocytes (Bld) [#/Vol] 20.8 10*3/uL High 1.2-4.0 [facility] Comment on above: Performed By: #### 5 3 ####[facility]3000 [facility].[address] Lymphocytes/100 WBC (Bld) 78.7 % High 20.0-45.0 [facility] Comment on above: Performed By: #### 5 3 ####[facility]3000 [facility].[address] MCH (RBC) [Entitic mass] 31.8 pg Normal 27.0-33.0 [facility] Comment on above: Performed By: #### 3 ####[facility] [facility] [place] [address], [place] MCHC (RBC) [Mass/Vol] 32.4 g/dL Normal 32.0-35.0 [facility] Comment on above: Performed By: #### 5 0103 ####[facility]3000 [facility].[address] MCV (RBC) [Entitic vol] 98.4 fL High 82.0-98.0 [facility] Comment on above: Performed By: #### 5 0103 ####[facility]3000 [facility].[place], [place] [address], [place] Monocytes (Bld) [#/Vol] 0.6 10*3/uL Normal 0.1-1.0 [facility] Comment on above: Performed By: #### 3 ####[facility]3000 [facility].[address] MONOS 2.2 % Low 5.0-12.0 [facility] Comment on above: Performed By: #### 5 3 ####[facility]3000 [facility].[address] Neutrophils/100 WBC (Bld) 18.3 % Low 40.0-72.0 [facility] Comment on above: Performed By: #### 3 ####[facility]3000 [facility].[address] Nucleated RBC/100 WBC (Bld) [Ratio] 0 % Normal 0-0 [facility] Comment on above: Performed By: #### 3 ####[facility] [facility] [place] [address], [place] PLAT CNT 174 10*3/uL Normal 150-400 The [facility] Comment on above: Performed By: #### 3 ####[facility] [facility] [place] [address], [place] RBC (Bld) [#/Vol] 4.49 10*6/uL Normal 4.20-5.70 [facility] Comment on above: Performed By: #### 5 0103 ####[facility] [facility].[address] SMUDGE CELLS MANY Normal The [facility] Comment on above: Performed By: #### 5 0103 ####[facility]3000 [facility].[address] WBC (Bld) [#/Vol] 26.44 10*3/uL High 4.00-10.60 [facility] Comment on above: Performed By: #### 5 0103 ####[facility] [facility].[address] PROTHROMBIN TIMEon 1 INR Coag (PPP) [Relative time] 0.99 {INR} Normal 0.91-1.16 [facility] Comment on above: Result Comment: ACCC P RECOMMENDED INR FOR WARFARIN THERAPY CONDITION INRPROPHYLAXIS OF VENOUS THROMBOSIS 2-3(HIGH-RISK SURGERY)TREATMENT OF VENOUS THROMBOSIS 2-3TREATMENT OF PULMONARY EMBOLISM 2-3PREVENTION OF SYSTEMIC EMBOLISM: 2-3 ACUTE MYOCARDIAL INFARCTION TISSUE HEART VALVES VALVULAR HEART DISEASE ATRIAL FIBRILLATION RECURRENT SYSTEMIC EMBOLISMMECHANICAL HEART VALVE 2.5-3.5 FROM: ORAL ANTICOAGULANTS. MECHANISM OF ACTION, CLINICALEFFECTIVENESS, AND OPTIMAL THERAPEUTIC RANGE. [id number]. Performed By: #### 5 6101 ####[facility] [place] [address], [place] PT Coag (PPP) [Time] 13.1 s Normal 12.3-14.8 [facility] Comment on above: Result Comment: ALL RESULTS MUST BE INTERPRETED WITH RESPECT TO BLOOD DRAWING ARTIFACTOR DILUTION ERROR OF ANTICOAGULANT AT THE TIME OF SAMPLING. Performed By: #### 5 6101 ####[facility] [place] [address], [place] Operative Reporton Operative Report Normal The [facility] POC GLUCOSE LABon 06-21-2021 Glucose [Mass/Vol] 139 mg/dL High 70-100 The [facility] Comment on above: Performed By: #### 8 5499 ####[facility] [place] [address], [place] POC GLUCOSE LABon 11-09-2020 Glucose [Mass/Vol] 101 mg/dL High 70-100 The [facility] Comment on above: Performed By: #### 8 5499 ####[facility] [place] [address], [place] Glucose [Mass/Vol] 127 mg/dL High 70-100 The [facility] Comment on above: Performed By: #### 8 5499 ####[facility] [place] [address], [place] POC GLUCOSE LABon 11-08-2020 Glucose [Mass/Vol] 206 mg/dL High 70-100 The [facility] Comment on above: Performed By: #### 8 5499 ####[facility] [place] [address], [place] Glucose [Mass/Vol] 79 mg/dL Normal 70-100 The [facility] Comment on above: Performed By: #### 8 5499 ####[facility] [place] [address], [place] Glucose [Mass/Vol] 186 mg/dL High 70-100 The [facility] Comment on above: Performed By: #### 8 5499 ####[facility] [place] [address], [place] Glucose [Mass/Vol] 132 mg/dL High 70-100 The [facility] Comment on above: Performed By: #### 8 5499 ####[facility]3000 [facility] [place] [address], [place] BASIC METABOLIC PANELon 03-0 Calcium [Mass/Vol] 8.4 mg/dL Low 8.6-10.3 The [facility] Comment on above: Order Comment: No: D o not add to previous draw Performed By: #### 1 69, 25100 ####[facility]3000 [facility] [place] [address], [place] Chloride [Moles/Vol] 104 mmol/L Normal 98-107 [facility] Comment on above: Order Comment: No: D o not add to previous draw Performed By: #### 1 69, 10313 ####[facility] [facility] [place] [address], [place] CO2 [Moles/Vol] 29 mmol/L Normal 21-31 [facility] Comment on above: Order Comment: No: D o not add to previous draw Performed By: #### 1 69, 37255 ####[facility] [id number], [place] Creatinine [Mass/Vol] 0.92 mg/dL Normal 0.70-1.30 [facility] Comment on above: Order Comment: No: D o not add to previous draw Performed By: #### 1 69, 80598 ####[facility] [place] [address], [place] GFR/1.73 sq M.predicted among blacks MDRD (S/P/Bld) [Vol rate/Area] mL/min/{1.73_m2} Normal >60 [facility] Comment on above: Order Comment: No: D o not add to previous draw Result Comment: Calc ulation may not be valid for patients over 70 years Performed By: #### 1 0, 91752 ####[facility]3000 [facility] [place] [address], [place] GFR/1.73 sq M.predicted among non-blacks MDRD (S/P/Bld) [Vol rate/Area] mL/min/{1.73_m2} Normal >60 [facility] Comment on above: Order Comment: No: D o not add to previous draw Result Comment: Calc ulation may not be valid for patients over 70 years Performed By: #### 1 69, 71485 ####[facility] [facility] [place] [address], [place] Glucose [Mass/Vol] 92 mg/dL Normal 70-100 The [facility] Comment on above: Order Comment: No: D o not add to previous draw Performed By: #### 1 69, 23650 ####[facility] [facility] [place] [address], [place] Potassium [Moles/Vol] 3.9 mmol/L Normal 3.5-5.1 [facility] Comment on above: Order Comment: No: D o not add to previous draw Performed By: #### 1 69, 63056 ####[facility]3000 [facility] [place] [address], [place] Sodium [Moles/Vol] 138 mmol/L Normal 136-145 The [facility] Comment on above: Order Comment: No: D o not add to previous draw Performed By: #### 1 69, 28545 ####[facility] [place] [address], [place] Urea nitrogen [Mass/Vol] 13 mg/dL Normal 7-25 [facility] Comment on above: Order Comment: No: D o not add to previous draw Performed By: #### 1 0070, 77350 ####[facility] [place] [address], [place] CBC W/DIFFon 11-07-2020 ABS IMM GRANS 0.1 10*3/uL Normal 0.0-0.2 The [facility] Comment on above: Order Comment: No: D o not add to previous draw Performed By: #### 5 0103 ####[facility] [place] [address], [place] ABS NEUTROPHILS 3.3 10*3/uL Normal 1.6-7.6 The [facility] Comment on above: Order Comment: No: D o not add to previous draw Performed By: #### 5 0103 ####[facility] [place] [address], [place] Basophils (Bld) [#/Vol] 0.1 10*3/uL Normal 0.0-0.2 [facility] Comment on above: Order Comment: No: D o not add to previous draw Performed By: #### 5 0103 ####[facility] [facility] [place] [address], [place] Basophils/100 WBC (Bld) 0.3 % Normal 0.0-1.0 [facility] Comment on above: Order Comment: No: D o not add to previous draw Performed By: #### 5 0103 ####[facility] [facility] [place] [address], [place] Eosinophils (Bld) [#/Vol] 0.2 10*3/uL Normal 0.0-0.5 [facility] Comment on above: Order Comment: No: D o not add to previous draw Performed By: #### 5 0103 ####[facility] [facility] [place] [address], [place] Eosinophils/100 WBC (Bld) 0.9 % Normal 0.0-6.0 [facility] Comment on above: Order Comment: No: D o not add to previous draw Performed By: #### 5 0103 ####[facility] Erythrocyte distribution width (RBC) [Ratio] 14.9 % Normal 11.5-15.0 [facility] Comment on above: Order Comment: No: D o not add to previous draw Performed By: #### 5 0103 ####[facility] Hematocrit (Bld) [Volume fraction] 31.8 % Low 39.0-50.0 [facility] Comment on above: Order Comment: No: D o not add to previous draw Performed By: #### 5 3 ####[facility] Hemoglobin (Bld) [Mass/Vol] 10.0 g/dL Low 13.0-17.0 [facility] Comment on above: Order Comment: No: D o not add to previous draw Performed By: #### 5 0103 ####[facility] IMMATURE GRANS 0.5 % Normal 0.0-1.0 The [facility] Comment on above: Order Comment: No: D o not add to previous draw Performed By: #### 5 0103 ####[facility] Lymphocytes (Bld) [#/Vol] 20.2 10*3/uL High 1.2-4.0 [facility] Comment on above: Order Comment: No: D o not add to previous draw Performed By: #### 5 0103 ####[facility] Lymphocytes/100 WBC (Bld) 83.1 % High 20.0-45.0 [facility] Comment on above: Order Comment: No: D o not add to previous draw Performed By: #### 5 0103 ####[facility] MCH (RBC) [Entitic mass] 31.6 pg Normal 27.0-33.0 [facility] Comment on above: Order Comment: No: D o not add to previous draw Performed By: #### 5 0103 ####[facility] MCHC (RBC) [Mass/Vol] 31.4 g/dL Low 32.0-35.0 [facility] Comment on above: Order Comment: No: D o not add to previous draw Performed By: #### 5 0103 ####[address] MCV (RBC) [Entitic vol] 100.6 fL High 82.0-98.0 [facility] Comment on above: Order Comment: No: D o not add to previous draw Performed By: #### 5 0103 ####[address] Monocytes (Bld) [#/Vol] 0.4 10*3/uL Normal 0.1-1.0 [facility] Comment on above: Order Comment: No: D o not add to previous draw Performed By: #### 5 0103 ####[facility] MONOS 1.6 % Low 5.0-12.0 [facility] Comment on above: Order Comment: No: D o not add to previous draw Performed By: #### 5 0103 ####[address] Neutrophils/100 WBC (Bld) 13.6 % Low 40.0-72.0 [facility] Comment on above: Order Comment: No: D o not add to previous draw Performed By: #### 5 0103 ####[facility] [facility].[address] Nucleated RBC/100 WBC (Bld) [Ratio] 0 % Normal 0-0 [facility] Comment on above: Order Comment: No: D o not add to previous draw Performed By: #### 5 0103 ####[facility] [place] [address], [place] PLAT CNT 225 10*3/uL Normal 150-400 The [facility] Comment on above: Order Comment: No: D o not add to previous draw Performed By: #### 5 0103 ####[facility] [facility] [place] [address], [place] RBC (Bld) [#/Vol] 3.16 10*6/uL Low 4.20-5.70 The [facility] Comment on above: Order Comment: No: D o not add to previous draw Performed By: #### 5 0103 ####[facility]3000 [facility].[address] SMUDGE CELLS MANY PRESENT Normal The [facility] Comment on above: Order Comment: No: D o not add to previous draw Result Comment: This result added by [facility] on 11/07/2020 09:18.AUTO DIF Performed By: #### 5 3 ####[facility] [facility] [place] [address], [place] WBC (Bld) [#/Vol] 24.33 10*3/uL High 4.00-10.60 [facility] Comment on above: Order Comment: No: D o not add to previous draw Performed By: #### 5 3 ####[facility] [place] [address], [place] MAGNESIUM BLOODon 11-07-2020 Magnesium [Mass/Vol] 2.0 mg/dL Normal 1.9-2.7 [facility] Comment on above: Order Comment: No: D o not add to previous draw Performed By: #### 1 0070, 42451 ####[facility] [place] [address], [place] POC GLUCOSE LABon 11-07-2020 Glucose [Mass/Vol] 164 mg/dL High 70-100 The [facility] Comment on above: Performed By: #### 8 5499 ####[facility] [place] [address], [place] Glucose [Mass/Vol] 128 mg/dL High 70-100 The [facility] Comment on above: Performed By: #### 8 5499 ####[facility] [place] [address], [place] Glucose [Mass/Vol] 143 mg/dL High 70-100 The [facility] Comment on above: Performed By: #### 8 5499 ####[facility] [facility] [place] [address], [place] Glucose [Mass/Vol] 100 mg/dL Normal 70-100 The [facility] Comment on above: Performed By: #### 8 5499 ####[facility] [facility] [place] [address], [place] BASIC METABOLIC PANELon Calcium [Mass/Vol] 8.2 mg/dL Low 8.6-10.3 The [facility] Comment on above: Order Comment: No: D o not add to previous draw Performed By: #### 0 0071, 37533 ####[facility] [place] [address], [place] Chloride [Moles/Vol] 105 mmol/L Normal 98-107 [facility] Comment on above: Order Comment: No: D o not add to previous draw Performed By: #### 0 0071, 45384 ####[facility] [facility] [place] [address], [place] CO2 [Moles/Vol] 28 mmol/L Normal 21-31 [facility] Comment on above: Order Comment: No: D o not add to previous draw Performed By: #### 0 0071, 78510 ####[facility] [facility] [place] [address], [place] Creatinine [Mass/Vol] 0.86 mg/dL Normal 0.70-1.30 [facility] Comment on above: Order Comment: No: D o not add to previous draw Performed By: #### 0 0071, 45150 ####[facility] [facility] [place] [address], [place] GFR/1.73 sq M.predicted among blacks MDRD (S/P/Bld) [Vol rate/Area] mL/min/{1.73_m2} Normal >60 [facility] Comment on above: Order Comment: No: D o not add to previous draw Result Comment: Calc ulation may not be valid for patients over 70 years Performed By: #### 0 0071, 41437 ####[facility] [facility] [place] [address], [place] GFR/1.73 sq M.predicted among non-blacks MDRD (S/P/Bld) [Vol rate/Area] mL/min/{1.73_m2} Normal >60 [facility] Comment on above: Order Comment: No: D o not add to previous draw Result Comment: Calc ulation may not be valid for patients over 70 years Performed By: #### 0 0071, 16399 ####[facility] [facility] [place] [address], [place] Glucose [Mass/Vol] 115 mg/dL High 70-100 [facility] Comment on above: Order Comment: No: D o not add to previous draw Performed By: #### 0 0071, 35818 ####[facility] Potassium [Moles/Vol] 4.2 mmol/L Normal 3.5-5.1 [facility] Comment on above: Order Comment: No: D o not add to previous draw Performed By: #### 0 0071, 42226 ####[facility] [facility].[address] Sodium [Moles/Vol] 137 mmol/L Normal 136-145 The [facility] Comment on above: Order Comment: No: D o not add to previous draw Performed By: #### 0 0071, 86337 ####[facility] [facility].[address] Urea nitrogen [Mass/Vol] 10 mg/dL Normal 7-25 [facility] Comment on above: Order Comment: No: D o not add to previous draw Performed By: #### 0 0071, 46757 ####[facility] [facility].[address] CBC W/DIFFon 11-06-2020 ABS IMM GRANS 0.2 10*3/uL Normal 0.0-0.2 The [facility] Comment on above: Order Comment: No: D o not add to previous draw Performed By: #### 5 3 ####[facility] [facility].[address] ABS NEUTROPHILS 3.8 10*3/uL Normal 1.6-7.6 The [facility] Comment on above: Order Comment: No: D o not add to previous draw Performed By: #### 5 3 ####[facility] [place] [address], [place] Basophils (Bld) [#/Vol] 0.1 10*3/uL Normal 0.0-0.2 [facility] Comment on above: Order Comment: No: D o not add to previous draw Performed By: #### 5 0103 ####[facility] [facility] [place] [address], [place] Basophils/100 WBC (Bld) 0.3 % Normal 0.0-1.0 [facility] Comment on above: Order Comment: No: D o not add to previous draw Performed By: #### 5 0103 ####[facility] [place] [address], [place] Eosinophils (Bld) [#/Vol] 0.2 10*3/uL Normal 0.0-0.5 [facility] Comment on above: Order Comment: No: D o not add to previous draw Performed By: #### 5 0103 ####[facility] [facility] [place] [address], [place] Eosinophils/100 WBC (Bld) 0.7 % Normal 0.0-6.0 [facility] Comment on above: Order Comment: No: D o not add to previous draw Performed By: #### 5 0103 ####[facility] [facility].[address] Erythrocyte distribution width (RBC) [Ratio] 14.9 % Normal 11.5-15.0 [facility] Comment on above: Order Comment: No: D o not add to previous draw Performed By: #### 5 0103 ####[facility] [place] [address], [place] Hematocrit (Bld) [Volume fraction] 32.5 % Low 39.0-50.0 [facility] Comment on above: Order Comment: No: D o not add to previous draw Performed By: #### 5 0103 ####[facility] [place] [address], [place] Hemoglobin (Bld) [Mass/Vol] 10.6 g/dL Low 13.0-17.0 [facility] Comment on above: Order Comment: No: D o not add to previous draw Performed By: #### 5 0103 ####[facility] IMMATURE GRANS 0.7 % Normal 0.0-1.[address] [facility] Comment on above: Order Comment: No: D o not add to previous draw Performed By: #### 5 0103 ####[facility] Lymphocytes (Bld) [#/Vol] 23.3 10*3/uL High 1.2-4.0 [facility] Comment on above: Order Comment: No: D o not add to previous draw Performed By: #### 5 0103 ####[address] Lymphocytes/100 WBC (Bld) 81.5 % High 20.0-45.0 [facility] Comment on above: Order Comment: No: D o not add to previous draw Performed By: #### 5 0103 ####[address] MCH (RBC) [Entitic mass] 32.2 pg Normal 27.0-33.0 [facility] Comment on above: Order Comment: No: D o not add to previous draw Performed By: #### 5 0103 ####[facility] [place] [address] MCHC (RBC) [Mass/Vol] 32.6 g/dL Normal 32.0-35.0 [facility] Comment on above: Order Comment: No: D o not add to previous draw Performed By: #### 5 0103 ####[facility] [place] [address], [place] MCV (RBC) [Entitic vol] 98.8 fL High 82.0-98.0 [facility] Comment on above: Order Comment: No: D o not add to previous draw Performed By: #### 5 0103 ####[facility] [facility] [place] [address], [place] Monocytes (Bld) [#/Vol] 1.0 10*3/uL Normal 0.1-1.0 [facility] Comment on above: Order Comment: No: D o not add to previous draw Performed By: #### 5 0103 ####[facility] [facility] [place] [address], [place] MONOS 3.5 % Low 5.0-12.0 [facility] Comment on above: Order Comment: No: D o not add to previous draw Performed By: #### 5 0103 ####[facility] [facility] [place] [address], [place] Neutrophils/100 WBC (Bld) 13.3 % Low 40.0-72.0 [facility] Comment on above: Order Comment: No: D o not add to previous draw Performed By: #### 5 0103 ####[facility] [facility] [place] [address], [place] Nucleated RBC/100 WBC (Bld) [Ratio] 0 % Normal 0-0 [facility] Comment on above: Order Comment: No: D o not add to previous draw Performed By: #### 5 0103 ####[facility] [facility] [place] [address], [place] PLAT CNT 232 10*3/uL Normal 150-400 The [facility] Comment on above: Order Comment: No: D o not add to previous draw Performed By: #### 5 0103 ####[facility] [facility] [place] [address], [place] RBC (Bld) [#/Vol] 3.29 10*6/uL Low 4.20-5.70 The [facility] Comment on above: Order Comment: No: D o not add to previous draw Performed By: #### 5 0103 ####[facility] [place] [address], [place] SMUDGE CELLS MANY Normal The [facility] Comment on above: Order Comment: No: D o not add to previous draw Performed By: #### 5 3 ####[facility] [place] [address], [place] WBC (Bld) [#/Vol] 28.54 10*3/uL High 4.00-10.60 [facility] Comment on above: Order Comment: No: D o not add to previous draw Performed By: #### 5 3 ####[facility] [place] [address], [place] MAGNESIUM BLOODon 11-06-2020 Magnesium [Mass/Vol] 2.1 mg/dL Normal 1.9-2.7 [facility] Comment on above: Order Comment: No: D o not add to previous draw Performed By: #### [id number] ####[facility] [place] [address], [place] POC GLUCOSE LABon 11-06-2020 Glucose [Mass/Vol] 155 mg/dL High 70-100 [facility] Comment on above: Performed By: #### [id number] ####[facility] [facility] [place] [address], [place] Glucose [Mass/Vol] 161 mg/dL High 70-100 The [facility] Comment on above: Performed By: #### 8 5499 ####[facility] [id number], [place] Glucose [Mass/Vol] 118 mg/dL High 70-100 The [facility] Comment on above: Performed By: #### 8 5499 ####[facility] [facility] [place] [address], [place] Glucose [Mass/Vol] 119 mg/dL High 70-100 The [facility] Comment on above: Performed By: #### 8 5499 ####[facility] [facility] [place] [address], [place] BASIC METABOLIC PANELon 03-0 Calcium [Mass/Vol] 8.2 mg/dL Low 8.6-10.3 The [facility] Comment on above: Order Comment: No: D o not add to previous drawNURSE DRAW RN JESSE Performed By: #### 0 0071, 47227 ####[facility] [facility] [place] [address], [place] Chloride [Moles/Vol] 106 mmol/L Normal 98-107 The [facility] Comment on above: Order Comment: No: D o not add to previous drawNURSE DRAW RN JESSE Performed By: #### 0 0071, 06297 ####[facility] [facility] [place] [address], [place] CO2 [Moles/Vol] 25 mmol/L Normal 21-31 The [facility] Comment on above: Order Comment: No: D o not add to previous drawNURSE DRAW RN JESSE Performed By: #### 0 0071, 16445 ####[facility] [facility] [place] [address], [place] Creatinine [Mass/Vol] 0.84 mg/dL Normal 0.70-1.30 [facility] Comment on above: Order Comment: No: D o not add to previous drawNURSE DRAW RN JESSE Performed By: #### 0 0071, 08106 ####[facility] [facility] [place] [address], [place] GFR/1.73 sq M.predicted among blacks MDRD (S/P/Bld) [Vol rate/Area] mL/min/{1.73_m2} Normal >60 [facility] Comment on above: Order Comment: No: D o not add to previous drawNURSE DRAW RN JESSE Result Comment: Calc ulation may not be valid for patients over 70 years Performed By: #### 0 0071, 52414 ####[facility] [facility] [place] [address], [place] GFR/1.73 sq M.predicted among non-blacks MDRD (S/P/Bld) [Vol rate/Area] mL/min/{1.73_m2} Normal >60 [facility] Comment on above: Order Comment: No: D o not add to previous drawNURSE DRAW RN JESSE Result Comment: Calc ulation may not be valid for patients over 70 years Performed By: #### 0 0071, 95012 ####[facility] [facility] [place] [address], [place] Glucose [Mass/Vol] 134 mg/dL High 70-100 [facility] Comment on above: Order Comment: No: D o not add to previous drawNURSE DRAW RN JESSE Performed By: #### 0 0071, 16096 ####[facility] [facility] [place] [address], [place] Potassium [Moles/Vol] 4.0 mmol/L Normal 3.5-5.1 [facility] Comment on above: Order Comment: No: D o not add to previous drawNURSE DRAW RN JESSE Performed By: #### 0 0071, 24622 ####[facility] [facility] [place] [address], [place] Sodium [Moles/Vol] 136 mmol/L Normal 136-145 The [facility] Comment on above: Order Comment: No: D o not add to previous drawNURSE DRAW RN JESSE Performed By: #### 0 0071, 01993 ####[facility] [facility] [place] [address], [place] Urea nitrogen [Mass/Vol] 9 mg/dL Normal 7-25 [facility] Comment on above: Order Comment: No: D o not add to previous drawNURSE DRAW RN JESSE Performed By: #### 0 0071, 86640 ####[facility] [facility] [place] [address], [place] CBC W/DIFFon 11-05-2020 ABS IMM GRANS 0.2 10*3/uL Normal 0.0-0.2 The [facility] Comment on above: Order Comment: No: D o not add to previous drawNURSE DRAW RN JESSE Performed By: #### 5 3 ####[facility] [facility].[address] ABS NEUTROPHILS 4.1 10*3/uL Normal 1.6-7.6 The [facility] Comment on above: Order Comment: No: D o not add to previous drawNURSE DRAW RN JESSE Performed By: #### 5 102 ####[facility] [facility].[address] Basophils (Bld) [#/Vol] 0.1 10*3/uL Normal 0.0-0.2 The [facility] Comment on above: Order Comment: No: D o not add to previous drawNURSE DRAW RN JESES Performed By: #### 5 3 ####[facility] [facility].[address] Basophils/100 WBC (Bld) 0.3 % Normal 0.0-1.0 [facility] Comment on above: Order Comment: No: D o not add to previous drawNURSE DRAW RN JESSE Performed By: #### 5 3 ####[facility] [place] [address], [place] Eosinophils (Bld) [#/Vol] 0.2 10*3/uL Normal 0.0-0.5 [facility] Comment on above: Order Comment: No: D o not add to previous drawNURSE DRAW RN JESSE Performed By: #### 5 3 ####[facility] Eosinophils/100 WBC (Bld) 0.7 % Normal 0.0-6.0 [facility] Comment on above: Order Comment: No: D o not add to previous drawNURSE DRAW RN JESSE Performed By: #### 5 0103 ####[facility] [place] [address] Erythrocyte distribution width (RBC) [Ratio] 14.8 % Normal 11.5-15.0 [facility] Comment on above: Order Comment: No: D o not add to previous drawNURSE DRAW RN JESSE Performed By: #### 5 3 ####[address] Hematocrit (Bld) [Volume fraction] 32.3 % Low 39.0-50.0 [facility] Comment on above: Order Comment: No: D o not add to previous drawNURSE DRAW RN JESSE Performed By: #### 5 3 ####[facility] Hemoglobin (Bld) [Mass/Vol] 10.4 g/dL Low 13.0-17.0 [facility] Comment on above: Order Comment: No: D o not add to previous drawNURSE DRAW RN JESSE Performed By: #### 5 3 ####[address] IMMATURE GRANS 0.6 % Normal 0.0-1.0 The [facility] Comment on above: Order Comment: No: D o not add to previous drawNURSE DRAW RN JESSE Performed By: #### 5 3 ####[address] Lymphocytes (Bld) [#/Vol] 22.1 10*3/uL High 1.2-4.0 [facility] Comment on above: Order Comment: No: D o not add to previous drawNURSE DRAW RN JESSE Performed By: #### 5 3 ####[facility] Lymphocytes/100 WBC (Bld) 82.1 % High 20.0-45.0 [facility] Comment on above: Order Comment: No: D o not add to previous drawNURSE DRAW RN JESSE Performed By: #### 5 102 ####[facility] MCH (RBC) [Entitic mass] 31.9 pg Normal 27.0-33.0 [facility] Comment on above: Order Comment: No: D o not add to previous drawNURSE DRAW RN JESSE Performed By: #### 5 102 ####[facility] MCHC (RBC) [Mass/Vol] 32.2 g/dL Normal 32.0-35.0 [facility] Comment on above: Order Comment: No: D o not add to previous drawNURSE DRAW RN JESSE Performed By: #### 5 102 ####[facility] MCV (RBC) [Entitic vol] 99.1 fL High 82.0-98.0 [facility] Comment on above: Order Comment: No: D o not add to previous drawNURSE DRAW RN JESSE Performed By: #### 5 102 ####[facility] Monocytes (Bld) [#/Vol] 0.3 10*3/uL Normal 0.1-1.0 [facility] Comment on above: Order Comment: No: D o not add to previous drawNURSE DRAW RN JESSE Performed By: #### 5 102 ####[facility] MONOS 1.1 % Low 5.0-12.0 [facility] Comment on above: Order Comment: No: D o not add to previous drawNURSE DRAW RN JESSE Performed By: #### 5 0103 ####[facility] [place] [address], [place] Neutrophils/100 WBC (Bld) 15.2 % Low 40.0-72.0 [facility] Comment on above: Order Comment: No: D o not add to previous drawNURSE DRAW RN JESSE Performed By: #### 5 3 ####[facility] [facility] [place] [address], [place] Nucleated RBC/100 WBC (Bld) [Ratio] 0 % Normal 0-0 [facility] Comment on above: Order Comment: No: D o not add to previous drawNURSE DRAW RN JESSE Performed By: #### 5 3 ####[facility] [facility] [place] [address], [place] PLAT CNT 221 10*3/uL Normal 150-400 The [facility] Comment on above: Order Comment: No: D o not add to previous drawNURSE DRAW RN JESSE Performed By: #### 5 3 ####[facility] [facility] [place] [address], [place] RBC (Bld) [#/Vol] 3.26 10*6/uL Low 4.20-5.70 The [facility] Comment on above: Order Comment: No: D o not add to previous drawNURSE DRAW RN JESSE Performed By: #### 5 3 ####[facility] [facility] [place] [address], [place] SMUDGE CELLS Many Normal The [facility] Comment on above: Order Comment: No: D o not add to previous drawNURSE DRAW RN JESSE Performed By: #### 5 102 ####[facility] [place] [address], [place] WBC (Bld) [#/Vol] 26.95 10*3/uL High 4.00-10.60 [facility] Comment on above: Order Comment: No: D o not add to previous drawNURSE DRAW PATTY MOLINA Performed By: #### 5 0103 ####[facility] [place] [address], [place] MAGNESIUM BLOODon 11-05-2020 Magnesium [Mass/Vol] 1.8 mg/dL Low 1.9-2.7 [facility] Comment on above: Order Comment: No: D o not add to previous drawNURSE DRAW PATTY MOLINA Performed By: #### 0 0071, 51311 ####[facility] [facility] [place] [address], [place] POC GLUCOSE LABon 11-05-2020 Glucose [Mass/Vol] 123 mg/dL High 70-100 The [facility] Comment on above: Performed By: #### 8 5499 ####[facility] [facility] [place] [address], [place] Glucose [Mass/Vol] 132 mg/dL High 70-100 The [facility] Comment on above: Performed By: #### 8 5499 ####[facility] [facility] [place] [address], [place] Glucose [Mass/Vol] 164 mg/dL High 70-100 The [facility] Comment on above: Performed By: #### 8 5499 ####[facility] [facility] [place] [address], [place] Glucose [Mass/Vol] 129 mg/dL High 70-100 The [facility] Comment on above: Performed By: #### 8 5499 ####[facility] [place] [address], [place] APTTon 11-04-2020 aPTT Coag (Bld) [Time] 30.1 s Normal 25.0-35.0 The [facility] Comment on above: Order Comment: [...] THIS PURPOSE. Performed By: #### 5 6101, 25325 ####[facility] BASIC METABOLIC PANELon 03-0 Calcium [Mass/Vol] 8.2 mg/dL Low 8.6-10.3 [facility] Comment on above: Order Comment: No: D o not add to previous drawNurse draw Performed By: #### 9 9909, 78669, 47895, 06781, 26061 ####[facility] [facility] [place] [address], [place] Chloride [Moles/Vol] 104 mmol/L Normal 98-107 [facility] Comment on above: Order Comment: No: D o not add to previous drawNurse draw Performed By: #### 9 9909, 34274, 67823, 89828, 70752 ####[facility] [facility] [place] [address], [place] CO2 [Moles/Vol] 27 mmol/L Normal 21-31 [facility] Comment on above: Order Comment: No: D o not add to previous drawNurse draw Performed By: #### 9 9909, 05821, 95624, 32297, 00556 ####[facility] [facility] [place] [address], [place] Creatinine [Mass/Vol] 0.86 mg/dL Normal 0.70-1.30 [facility] Comment on above: Order Comment: No: D o not add to previous drawNurse draw Performed By: #### 9 9909, 97616, 88963, 66317, 28250 ####[facility] [place] [address], [place] GFR/1.73 sq M.predicted among blacks MDRD (S/P/Bld) [Vol rate/Area] mL/min/{1.73_m2} Normal >60 The [facility] Comment on above: Order Comment: No: D o not add to previous drawNurse draw Result Comment: Calc ulation may not be valid for patients over 70 years Performed By: #### 9 9909, 02484, 39412, 65798, 43683 ####[facility] [place] [address], [place] GFR/1.73 sq M.predicted among non-blacks MDRD (S/P/Bld) [Vol rate/Area] mL/min/{1.73_m2} Normal >60 [facility] Comment on above: Order Comment: No: D o not add to previous drawNurse draw Result Comment: Calc ulation may not be valid for patients over 70 years Performed By: #### 9 9909, 51942, 36365, 64415, 13039 ####[facility] [facility] [place] [address], [place] Glucose [Mass/Vol] 140 mg/dL High 70-100 The [facility] Comment on above: Order Comment: No: D o not add to previous drawNurse draw Performed By: #### 9 9909, 42453, 51157, 43629, 27395 ####[facility] [place] [address], [place] Potassium [Moles/Vol] 4.1 mmol/L Normal 3.5-5.1 [facility] Comment on above: Order Comment: No: D o not add to previous drawNurse draw Performed By: #### 9 9909, 22684, 65208, 04748, 71939 ####[facility] [place] [address], [place] Sodium [Moles/Vol] 136 mmol/L Normal 136-145 The [facility] Comment on above: Order Comment: No: D o not add to previous drawNurse draw Performed By: #### 9 9909, 52263, 79446, 25882, 89757 ####[facility] [facility].[address] Urea nitrogen [Mass/Vol] 12 mg/dL Normal 7-25 [facility] Comment on above: Order Comment: No: D o not add to previous drawNurse draw Performed By: #### 9 9909, 73503, 94555, 16400, 76525 ####[facility] CBC COMPLETE BLOOD COUNTon 0 - Erythrocyte distribution width (RBC) [Ratio] 14.7 % Normal 11.5-15.0 [facility] Comment on above: Order Comment: No: D o not add to previous drawNurse draw Performed By: #### 5 0608 ####[facility] [facility].[address] Hematocrit (Bld) [Volume fraction] 33.5 % Low 39.0-50.0 [facility] Comment on above: Order Comment: No: D o not add to previous drawNurse draw Performed By: #### 5 0608 ####[facility] [facility].[address] Hemoglobin (Bld) [Mass/Vol] 10.9 g/dL Low 13.0-17.0 [facility] Comment on above: Order Comment: No: D o not add to previous drawNurse draw Performed By: #### 5 0608 ####[facility] [facility] [place] [address], [place] MCH (RBC) [Entitic mass] 31.9 pg Normal 27.0-33.0 [facility] Comment on above: Order Comment: No: D o not add to previous drawNurse draw Performed By: #### 5 0608 ####[facility] MCHC (RBC) [Mass/Vol] 32.5 g/dL Normal 32.0-35.0 [facility] Comment on above: Order Comment: No: D o not add to previous drawNurse draw Performed By: #### 5 0608 ####[facility] [facility].[address] MCV (RBC) [Entitic vol] 98.0 fL Normal 82.0-98.0 [facility] Comment on above: Order Comment: No: D o not add to previous drawNurse draw Performed By: #### 5 0608 ####[facility] Nucleated RBC/100 WBC (Bld) [Ratio] 0 % Normal 0-0 [facility] Comment on above: Order Comment: No: D o not add to previous drawNurse draw Performed By: #### 5 0608 ####[facility] [facility] [place] [address], [place] PLAT CNT 219 10*3/uL Normal 150-400 The [facility] Comment on above: Order Comment: No: D o not add to previous drawNurse draw Performed By: #### 5 0608 ####[address] [place] [address], [place] RBC (Bld) [#/Vol] 3.42 10*6/uL Low 4.20-5.70 The [facility] Comment on above: Order Comment: No: D o not add to previous drawNurse draw Performed By: #### 5 0608 ####[address] [place] [address], [place] WBC (Bld) [#/Vol] 28.62 10*3/uL High 4.00-10.60 [facility] Comment on above: Order Comment: No: D o not add to previous drawNurse draw Performed By: #### 5 0608 ####[facility] [place] [address], [place] LIVER BATTERYon 11-04-2020 Albumin [Mass/Vol] 3.2 g/dL Low 3.5-5.7 [facility] Comment on above: Order Comment: Yes: Add to Previous draw if ableNurse draw Performed By: #### 9 9909, 53935, 87709, 84716, 29214 ####[facility] [place] [address], [place] ALKALINE PHOSPH 62 IU/L Normal 34-104 [facility] Comment on above: Order Comment: Yes: Add to Previous draw if ableNurse draw Performed By: #### 9 9909, 17688, 51150, 04972, 29760 ####[facility] ALT [Catalytic activity/Vol] 58 U/L High 7-52 [facility] Comment on above: Order Comment: Yes: Add to Previous draw if ableNurse draw Performed By: #### 9 9909, 10693, 10446, 79614, 37784 ####[facility] [place] [address], [place] AST [Catalytic activity/Vol] 15 U/L Normal 13-39 [facility] Comment on above: Order Comment: Yes: Add to Previous draw if ableNurse draw Performed By: #### 9 9909, 07787, 90684, 41279, 27108 ####[facility] [place] [address], [place] Bilirubin [Mass/Vol] 0.5 mg/dL Normal 0.3-1.0 [facility] Comment on above: Order Comment: Yes: Add to Previous draw if ableNurse draw Performed By: #### 9 9909, 36484, 16838, 73027, 35061 ####[facility] [place] [address], [place] Bilirubin.direct [Mass/Vol] 0.1 mg/dL Normal 0.0-0.2 [facility] Comment on above: Order Comment: Yes: Add to Previous draw if ableNurse draw Performed By: #### 9 9909, 02646, 09905, 47316, 56824 ####[facility] [place] [address], [place] Protein [Mass/Vol] 5.3 g/dL Low 6.0-8.3 The [facility] Comment on above: Order Comment: Yes: Add to Previous draw if ableNurse draw Performed By: #### 9 9909, 81586, 96642, 33654, 37301 ####[facility] [facility] [place] [address], [place] MAGNESIUM BLOODon 11-04-2020 Magnesium [Mass/Vol] 1.9 mg/dL Normal 1.9-2.7 [facility] Comment on above: Order Comment: Yes: Add to Previous draw if ableNurse draw Performed By: #### 9 9909, 87381, 01438, 46848, 96141 ####[facility] [facility] [place] [address], [place] PHOSPHORUS BLOODon Phosphate [Mass/Vol] 2.9 mg/dL Normal 2.5-5.0 [facility] Comment on above: Order Comment: Yes: Add to Previous draw if ableNurse draw Performed By: #### 9 9909, 27829, 38408, 98561, 76571 ####[facility] [place] [address], [place] POC GLUCOSE LABon 11-04-2020 Glucose [Mass/Vol] 115 mg/dL High 70-100 The [facility] Comment on above: Performed By: #### 8 5499 ####[facility] [place] [address], [place] Glucose [Mass/Vol] 120 mg/dL High 70-100 The [facility] Comment on above: Performed By: #### 8 5499 ####[facility] [facility] [place] [address], [place] Glucose [Mass/Vol] 134 mg/dL High 70-100 The [facility] Comment on above: Performed By: #### 8 5499 ####[facility] [facility] [place] [address], [place] Glucose [Mass/Vol] 142 mg/dL High 70-100 The [facility] Comment on above: Performed By: #### 8 5499 ####[facility] PROTHROMBIN TIMEon 1 INR Coag (PPP) [Relative time] 1.15 {INR} Normal 0.91-1.16 [facility] Comment on above: Order Comment: Yes: [...] OF ACTION, CLINICALEFFECTIVENESS, AND OPTIMAL THERAPEUTIC RANGE. [id number]. Performed By: #### 5 6101, 02868 ####[facility] PT Coag (PPP) [Time] 14.7 s Normal 12.3-14.8 [facility] Comment on above: Order Comment: Yes: Add to Previous draw if ableNurse draw Result Comment: ALL RESULTS MUST BE INTERPRETED WITH RESPECT TO BLOOD DRAWING ARTIFACTOR DILUTION ERROR OF ANTICOAGULANT AT THE TIME OF SAMPLING. Performed By: #### 5 6101, 25411 ####[facility] [facility].[address] TRIGLYCERIDES BLOODon 2020 Triglyceride [Mass/Vol] 157 mg/dL High 40-149 [facility] Comment on above: Order Comment: Yes: Add to Previous draw if ableNurse draw Result Comment: TRIG LYCERIDE REFERENCE RANGE:20 YEARS AND OLDER CARDIOVASCULAR RISKLESS THAN 150 mg/dl LOW [id number] TO 199 mg/dl BORDERLINE [id number] mg/dl AND GREATER HIGH RISK Performed By: #### 9 9909, 89778, 97738, 25751, 51429 ####[facility] [facility].[address] *BLOOD CULTUREon 11-03-2020 *BLOOD CULTURE Clinical Report: (D) Specimen: BLOOD CULTURE Collected: 11/03/2020 14:01 Status: Final Last Updated: 11/08/2020 14:40 (1) At appt per log book CULT RES (Final) No Growth Day 5 Normal [facility] Comment on above: Order Comment: At ap pt per log book Performed By: #### 3 0313 ####[facility] [facility].[address] *BLOOD CULTURE Clinical Report: (D) Specimen: BLOOD CULTURE Collected: 11/03/2020 13:36 Status: Final Last Updated: 11/08/2020 14:40 (1) At appt per log book CULT RES (Final) No Growth Day 5 Normal [facility] Comment on above: Order Comment: At ap pt per log book Performed By: #### 3 0313 ####[facility] *MRSA/MSSA DNA NASALon 11-03 *MRSA/MSSA DNA NASAL Clinical Report: (D ) Specimen: NASAL SWAB Collected: 11/03/2020 12:27 Status: Final Last Updated: 11/04/2020 12:54 MSSA DNA (Final) Negative MRSA DNA (Final) Negative Normal [facility] Comment on above: Performed By: #### [id number] ####[facility] [facility] [place] [address], [place]UST BASIC METABOLIC PANELon Calcium [Mass/Vol] 8.3 mg/dL Low 8.6-10.3 [facility] Comment on above: Order Comment: No: D o not add to previous draw Performed By: #### 1 [id number] ####[facility] [place] [address], [place] Chloride [Moles/Vol] 103 mmol/L Normal 98-107 The [facility] Comment on above: Order Comment: No: D o not add to previous draw Performed By: #### 1 69, 54995 ####[facility] [place] [address], [place] CO2 [Moles/Vol] 25 mmol/L Normal 21-31 [facility] Comment on above: Order Comment: No: D o not add to previous draw Performed By: #### 1 69, 80884 ####[facility] [place] [address], [place] Creatinine [Mass/Vol] 0.93 mg/dL Normal 0.70-1.30 [facility] Comment on above: Order Comment: No: D o not add to previous draw Performed By: #### 1 69, 37823 ####[facility] [id number], [place] GFR/1.73 sq M.predicted among blacks MDRD (S/P/Bld) [Vol rate/Area] mL/min/{1.73_m2} Normal >60 [facility] Comment on above: Order Comment: No: D o not add to previous draw Result Comment: Calc ulation may not be valid for patients over 70 years Performed By: #### 1 0, 01034 ####[facility] [place] [address], [place] GFR/1.73 sq M.predicted among non-blacks MDRD (S/P/Bld) [Vol rate/Area] mL/min/{1.73_m2} Normal >60 [facility] Comment on above: Order Comment: No: D o not add to previous draw Result Comment: Calc ulation may not be valid for patients over 70 years Performed By: #### 1 69, 59450 ####[facility] [place] [address], [place] Glucose [Mass/Vol] 147 mg/dL High 70-100 [facility] Comment on above: Order Comment: No: D o not add to previous draw Performed By: #### 1 69, 26806 ####[facility] [place] [address], [place] Potassium [Moles/Vol] 3.8 mmol/L Normal 3.5-5.1 [facility] Comment on above: Order Comment: No: D o not add to previous draw Performed By: #### 1 0, 24866 ####[facility] [place] [address], [place] Sodium [Moles/Vol] 136 mmol/L Normal 136-145 The [facility] Comment on above: Order Comment: No: D o not add to previous draw Performed By: #### 1 0, 78976 ####[facility] Urea nitrogen [Mass/Vol] 15 mg/dL Normal 7-25 [facility] Comment on above: Order Comment: No: D o not add to previous draw Performed By: #### 1 0070, 84362 ####[facility] CBC COMPLETE BLOOD COUNTon 0 11-03-2020 Erythrocyte distribution width (RBC) [Ratio] 14.9 % Normal 11.5-15.0 [facility] Comment on above: Order Comment: No: D o not add to previous draw Performed By: #### 5 0608 ####[place] [id number] [address] Hematocrit (Bld) [Volume fraction] 39.3 % Normal 39.0-50.0 [facility] Comment on above: Order Comment: No: D o not add to previous draw Performed By: #### 5 0608 ####[facility] Hemoglobin (Bld) [Mass/Vol] 12.0 g/dL Low 13.0-17.0 [facility] Comment on above: Order Comment: No: D o not add to previous draw Performed By: #### 5 0608 ####[place] [address] [address] MCH (RBC) [Entitic mass] 32.0 pg Normal 27.0-33.0 [facility] Comment on above: Order Comment: No: D o not add to previous draw Performed By: #### 5 0608 ####[facility]3000 [facility].[address] MCHC (RBC) [Mass/Vol] 30.5 g/dL Low 32.0-35.0 [facility] Comment on above: Order Comment: No: D o not add to previous draw Performed By: #### 5 0608 ####[facility] [facility] [place] [address], [place] MCV (RBC) [Entitic vol] 104.8 fL High 82.0-98.0 [facility] Comment on above: Order Comment: No: D o not add to previous draw Performed By: #### 5 0608 ####[place] [address] [facility] [place] [address], [place] Nucleated RBC/100 WBC (Bld) [Ratio] 0 % Normal 0-0 [facility] Comment on above: Order Comment: No: D o not add to previous draw Performed By: #### 5 0608 ####[place] [address], [place] PLAT CNT 208 10*3/uL Normal 150-400 The [facility] Comment on above: Order Comment: No: D o not add to previous draw Performed By: #### 5 0608 ####[place] [address] [place] [address], [place] RBC (Bld) [#/Vol] 3.75 10*6/uL Low 4.20-5.70 The [facility] Comment on above: Order Comment: No: D o not add to previous draw Performed By: #### 5 0608 ####[address] [place] [address], [place] WBC (Bld) [#/Vol] 26.14 10*3/uL High 4.00-10.60 [facility] Comment on above: Order Comment: No: D o not add to previous draw Performed By: #### 5 0608 ####[address] ABDOMEN AND PELVIS WO CON TRASTon 11-03-2020 CT ABDOMEN AND PELVIS WO CONTRAST Normal The [facility] Comment on above: Order Comment: Obstr uction, 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 MAGNESIUM BLOODon 11-03-2020 Magnesium [Mass/Vol] 2.0 mg/dL Normal 1.9-2.7 [facility] Comment on above: Order Comment: No: D o not add to previous draw Performed By: #### 1 0070, 40354 ####[facility] [place] [address], [place] PHOSPHORUS BLOODon Phosphate [Mass/Vol] 2.8 mg/dL Normal 2.5-5.0 [facility] Comment on above: Order Comment: Yes: Add to Previous draw if able Performed By: #### 4 1000 ####[facility] [place] [address], [place] POC GLUCOSE LABon 11-03-2020 Glucose [Mass/Vol] 120 mg/dL High 70-100 The [facility] Comment on above: Performed By: #### 8 5499 ####[facility] [place] [address], [place] Glucose [Mass/Vol] 141 mg/dL High 70-100 The [facility] Comment on above: Performed By: #### 8 5499 ####[facility] [place] [address], [place] Glucose [Mass/Vol] 77 mg/dL Normal 70-100 The [facility] Comment on above: Performed By: #### 8 5499 ####[facility] [place] [address], [place] Glucose [Mass/Vol] 181 mg/dL High 70-100 The [facility] Comment on above: Performed By: #### 8 5499 ####[facility] [place] [address], [place] BASIC METABOLIC PANELon - Calcium [Mass/Vol] 7.8 mg/dL Low 8.6-10.3 The [facility] Comment on above: Order Comment: No: D o not add to previous draw Performed By: #### 0 0071, 49769 ####[facility] [place] [address], [place] Chloride [Moles/Vol] 109 mmol/L High 98-107 [facility] Comment on above: Order Comment: No: D o not add to previous draw Performed By: #### 0 0071, 34368 ####[facility] [place] [address], [place] CO2 [Moles/Vol] 18 mmol/L Low 21-31 [facility] Comment on above: Order Comment: No: D o not add to previous draw Performed By: #### 0 0071, 88444 ####[facility] [facility] [place] [address], [place] Creatinine [Mass/Vol] 0.92 mg/dL Normal 0.70-1.30 [facility] Comment on above: Order Comment: No: D o not add to previous draw Performed By: #### 0 0071, 64695 ####[facility] [facility] [place] [address], [place] GFR/1.73 sq M.predicted among blacks MDRD (S/P/Bld) [Vol rate/Area] mL/min/{1.73_m2} Normal >60 [facility] Comment on above: Order Comment: No: D o not add to previous draw Result Comment: Calc ulation may not be valid for patients over 70 years Performed By: #### 0 0071, 07026 ####[facility] [facility] [place] [address], [place] GFR/1.73 sq M.predicted among non-blacks MDRD (S/P/Bld) [Vol rate/Area] mL/min/{1.73_m2} Normal >60 [facility] Comment on above: Order Comment: No: D o not add to previous draw Result Comment: Calc ulation may not be valid for patients over 70 years Performed By: #### 0 0071, 28454 ####[facility] [facility] [place] [address], [place] Glucose [Mass/Vol] 179 mg/dL High 70-100 The [facility] Comment on above: Order Comment: No: D o not add to previous draw Performed By: #### 0 0071, 10529 ####[facility] [facility] [place] [address], [place] Potassium [Moles/Vol] 4.1 mmol/L Normal 3.5-5.1 [facility] Comment on above: Order Comment: No: D o not add to previous draw Performed By: #### 0 0071, 91942 ####[place] [address] [facility] [place] [address], [place] Sodium [Moles/Vol] 137 mmol/L Normal 136-145 The [facility] Comment on above: Order Comment: No: D o not add to previous draw Performed By: #### 0 0071, 59078 ####[facility] [facility] [place] [address], [place] Urea nitrogen [Mass/Vol] 18 mg/dL Normal 7-25 [facility] Comment on above: Order Comment: No: D o not add to previous draw Performed By: #### 0 0071, 73837 ####[facility] [facility].[address] CBC COMPLETE BLOOD COUNTon 0 - Erythrocyte distribution width (RBC) [Ratio] 14.9 % Normal 11.5-15.0 [facility] Comment on above: Order Comment: No: D o not add to previous draw Performed By: #### 5 0608 ####[facility] [facility].[place] [id number], [place] Hematocrit (Bld) [Volume fraction] 36.4 % Low 39.0-50.0 [facility] Comment on above: Order Comment: No: D o not add to previous draw Performed By: #### 5 0608 ####[facility] [facility].[address] Hemoglobin (Bld) [Mass/Vol] 11.0 g/dL Low 13.0-17.0 [facility] Comment on above: Order Comment: No: D o not add to previous draw Performed By: #### 5 0608 ####[facility] MCH (RBC) [Entitic mass] 32.4 pg Normal 27.0-33.0 [facility] Comment on above: Order Comment: No: D o not add to previous draw Performed By: #### 5 0608 ####[facility] MCHC (RBC) [Mass/Vol] 30.2 g/dL Low 32.0-35.0 [facility] Comment on above: Order Comment: No: D o not add to previous draw Performed By: #### 5 0608 ####[facility] [facility].[address] MCV (RBC) [Entitic vol] 107.1 fL High 82.0-98.0 [facility] Comment on above: Order Comment: No: D o not add to previous draw Performed By: #### 5 0608 ####[facility] [facility].[address] Nucleated RBC/100 WBC (Bld) [Ratio] 0 % Normal 0-0 [facility] Comment on above: Order Comment: No: D o not add to previous draw Performed By: #### 5 0608 ####[facility] [place] [address] PLAT CNT 169 10*3/uL Normal 150-400 The [facility] Comment on above: Order Comment: No: D o not add to previous draw Performed By: #### 5 0608 ####[facility] [place] [address], [place] RBC (Bld) [#/Vol] 3.40 10*6/uL Low 4.20-5.70 The [facility] Comment on above: Order Comment: No: D o not add to previous draw Performed By: #### 5 0608 ####[facility] [place] [address], [place] WBC (Bld) [#/Vol] 24.00 10*3/uL High 4.00-10.60 [facility] Comment on above: Order Comment: No: D o not add to previous draw Performed By: #### 5 0608 ####[facility] [place] [address], [place] MAGNESIUM BLOODon 11-02-2020 Magnesium [Mass/Vol] 2.0 mg/dL Normal 1.9-2.7 [facility] Comment on above: Order Comment: No: D o not add to previous draw Performed By: #### 0 0071, 01303 ####[facility] [place] [address], [place] POC GLUCOSE LABon 11-02-2020 Glucose [Mass/Vol] 156 mg/dL High 70-100 The [facility] Comment on above: Performed By: #### 8 5499 ####[facility] [place] [address], [place] Glucose [Mass/Vol] 150 mg/dL High 70-100 The [facility] Comment on above: Performed By: #### 8 5499 ####[facility] [place] [address], [place] Glucose [Mass/Vol] 151 mg/dL High 70-100 The [facility] Comment on above: Performed By: #### 8 5499 ####[facility] [place] [address], [place] Glucose [Mass/Vol] 169 mg/dL High 70-100 The [facility] Comment on above: Performed By: #### 8 5499 ####[facility] [place] [address], [place] Glucose [Mass/Vol] 160 mg/dL High 70-100 The [facility] Comment on above: Performed By: #### 8 5499 ####[facility] [place] [address], [place] PORTABLE ABDOMENon PORTABLE ABDOMEN Normal [facility] Comment on above: Order Comment: Evalu ate for Ileus BASIC METABOLIC PANELon Calcium [Mass/Vol] 7.8 mg/dL Low 8.6-10.3 The [facility] Comment on above: Order Comment: No: D o not add to previous draw Performed By: #### 1 69, 14329 ####[facility] [place] [address], [place] Chloride [Moles/Vol] 106 mmol/L Normal 98-107 [facility] Comment on above: Order Comment: No: D o not add to previous draw Performed By: #### 1 69, 22432 ####[facility] [place] [address], [place] CO2 [Moles/Vol] 28 mmol/L Normal 21-31 [facility] Comment on above: Order Comment: No: D o not add to previous draw Performed By: #### 1 69, 44582 ####[facility] [place] [address], [place] Creatinine [Mass/Vol] 0.91 mg/dL Normal 0.70-1.30 [facility] Comment on above: Order Comment: No: D o not add to previous draw Performed By: #### 1 69, 41770 ####[facility] [place] [address], [place] GFR/1.73 sq M.predicted among blacks MDRD (S/P/Bld) [Vol rate/Area] mL/min/{1.73_m2} Normal >60 [facility] Comment on above: Order Comment: No: D o not add to previous draw Result Comment: Calc ulation may not be valid for patients over 70 years Performed By: #### 1 69, 71835 ####[facility] [place] [address], [place] GFR/1.73 sq M.predicted among non-blacks MDRD (S/P/Bld) [Vol rate/Area] mL/min/{1.73_m2} Normal >60 [facility] Comment on above: Order Comment: No: D o not add to previous draw Result Comment: Calc ulation may not be valid for patients over 70 years Performed By: #### 1 69, 08997 ####[facility] [facility] [place] [address], [place] Glucose [Mass/Vol] 326 mg/dL High 70-100 The [facility] Comment on above: Order Comment: No: D o not add to previous draw Performed By: #### 1 69, 37729 ####[facility] [place] [address], [place] Potassium [Moles/Vol] 4.7 mmol/L Normal 3.5-5.1 [facility] Comment on above: Order Comment: No: D o not add to previous draw Performed By: #### 1 69, 84507 ####[facility] [place] [address], [place] Sodium [Moles/Vol] 137 mmol/L Normal 136-145 [facility] Comment on above: Order Comment: No: D o not add to previous draw Performed By: #### 1 0070, 58300 ####[facility] Urea nitrogen [Mass/Vol] 19 mg/dL Normal 7-25 [facility] Comment on above: Order Comment: No: D o not add to previous draw Performed By: #### 1 0, 35718 ####[facility] CBC COMPLETE BLOOD COUNTon 0 - Erythrocyte distribution width (RBC) [Ratio] 14.6 % Normal 11.5-15.0 [facility] Comment on above: Order Comment: No: D o not add to previous draw Performed By: #### 5 0608 ####[place] [address] [address] Hematocrit (Bld) [Volume fraction] 34.1 % Low 39.0-50.0 [facility] Comment on above: Order Comment: No: D o not add to previous draw Performed By: #### 5 0608 ####[address] Hemoglobin (Bld) [Mass/Vol] 10.8 g/dL Low 13.0-17.0 [facility] Comment on above: Order Comment: No: D o not add to previous draw Performed By: #### 5 0608 ####[facility] MCH (RBC) [Entitic mass] 32.1 pg Normal 27.0-33.0 [facility] Comment on above: Order Comment: No: D o not add to previous draw Performed By: #### 5 0608 ####[facility] [place] [address] MCHC (RBC) [Mass/Vol] 31.7 g/dL Low 32.0-35.0 [facility] Comment on above: Order Comment: No: D o not add to previous draw Performed By: #### 5 0608 ####[facility] [place] [address], [place] MCV (RBC) [Entitic vol] 101.5 fL High 82.0-98.0 [facility] Comment on above: Order Comment: No: D o not add to previous draw Performed By: #### 5 0608 ####[facility] [place] [address], [place] Nucleated RBC/100 WBC (Bld) [Ratio] 0 % Normal 0-0 [facility] Comment on above: Order Comment: No: D o not add to previous draw Performed By: #### 5 0608 ####[facility] [facility] [place] [address], [place] PLAT CNT 189 10*3/uL Normal 150-400 The [facility] Comment on above: Order Comment: No: D o not add to previous draw Performed By: #### 5 0608 ####[facility] [place] [address], [place] RBC (Bld) [#/Vol] 3.36 10*6/uL Low 4.20-5.70 [facility] Comment on above: Order Comment: No: D o not add to previous draw Performed By: #### 5 0608 ####[facility] [place] [address], [place] WBC (Bld) [#/Vol] 24.92 10*3/uL High 4.00-10.60 [facility] Comment on above: Order Comment: No: D o not add to previous draw Performed By: #### 5 0608 ####[facility] [place] [address], [place] MAGNESIUM BLOODon 11-01-2020 Magnesium [Mass/Vol] 1.9 mg/dL Normal 1.9-2.7 [facility] Comment on above: Order Comment: No: D o not add to previous draw Performed By: #### 1 0070, 32207 ####[facility] [place] [address], [place] POC GLUCOSE LABon 11-01-2020 Glucose [Mass/Vol] 133 mg/dL High 70-100 The [facility] Comment on above: Performed By: #### 8 5499 ####[facility] [place] [address], [place] Glucose [Mass/Vol] 157 mg/dL High 70-100 The [facility] Comment on above: Performed By: #### 8 5499 ####[facility] [facility] [place] [address], [place] Glucose [Mass/Vol] 140 mg/dL High 70-100 The [facility] Comment on above: Performed By: #### 8 5499 ####[facility] [facility] [place] [address], [place] Glucose [Mass/Vol] 164 mg/dL High 70-100 The [facility] Comment on above: Performed By: #### 8 5499 ####[facility] [facility] [place] [address], [place] BASIC METABOLIC PANELon Calcium [Mass/Vol] 7.9 mg/dL Low 8.6-10.3 The [facility] Comment on above: Order Comment: No: D o not add to previous draw Performed By: #### 0 0071, 05829 ####[facility] [place] [address], [place] Chloride [Moles/Vol] 106 mmol/L Normal 98-107 [facility] Comment on above: Order Comment: No: D o not add to previous draw Performed By: #### 0 0071, 44088 ####[facility] [place] [address], [place] CO2 [Moles/Vol] 28 mmol/L Normal 21-31 [facility] Comment on above: Order Comment: No: D o not add to previous draw Performed By: #### 0 0071, 96877 ####[facility] [facility] [place] [address], [place] Creatinine [Mass/Vol] 0.87 mg/dL Normal 0.70-1.30 [facility] Comment on above: Order Comment: No: D o not add to previous draw Performed By: #### 0 0071, 80583 ####[facility] [facility] [place] [address], [place] GFR/1.73 sq M.predicted among blacks MDRD (S/P/Bld) [Vol rate/Area] mL/min/{1.73_m2} Normal >60 [facility] Comment on above: Order Comment: No: D o not add to previous draw Result Comment: Calc ulation may not be valid for patients over 70 years Performed By: #### 0 0071, 86806 ####[facility] [facility] [place] [address], [place] GFR/1.73 sq M.predicted among non-blacks MDRD (S/P/Bld) [Vol rate/Area] mL/min/{1.73_m2} Normal >60 [facility] Comment on above: Order Comment: No: D o not add to previous draw Result Comment: Calc ulation may not be valid for patients over 70 years Performed By: #### 0 0071, 51487 ####[facility] [facility] [place] [address], [place] Glucose [Mass/Vol] 209 mg/dL High 70-100 [facility] Comment on above: Order Comment: No: D o not add to previous draw Performed By: #### 0 0071, 64787 ####[facility] [place] [address], [place] Potassium [Moles/Vol] 3.5 mmol/L Normal 3.5-5.1 [facility] Comment on above: Order Comment: No: D o not add to previous draw Performed By: #### 0 0071, 46247 ####[facility] [place] [address], [place] Sodium [Moles/Vol] 143 mmol/L Normal 136-145 The [facility] Comment on above: Order Comment: No: D o not add to previous draw Performed By: #### 0 0071, 01506 ####[facility] [place] [address], [place] Urea nitrogen [Mass/Vol] 20 mg/dL Normal 7-25 [facility] Comment on above: Order Comment: No: D o not add to previous draw Performed By: #### 0 0071, 41246 ####[facility] [facility] [place] [address], [place] CBC COMPLETE BLOOD COUNTon 0 - Erythrocyte distribution width (RBC) [Ratio] 14.5 % Normal 11.5-15.0 [facility] Comment on above: Order Comment: No: D o not add to previous draw Performed By: #### 5 0608 ####[facility] [place] [address], [place] Hematocrit (Bld) [Volume fraction] 33.3 % Low 39.0-50.0 [facility] Comment on above: Order Comment: No: D o not add to previous draw Performed By: #### 5 0608 ####[facility] [id number], [place] Hemoglobin (Bld) [Mass/Vol] 10.7 g/dL Low 13.0-17.0 [facility] Comment on above: Order Comment: No: D o not add to previous draw Performed By: #### [id number] ####[facility] [facility].[address] MCH (RBC) [Entitic mass] 31.6 pg Normal 27.0-33.0 [facility] Comment on above: Order Comment: No: D o not add to previous draw Performed By: #### [id number] ####[facility] [facility] CENTER.[address] MCHC (RBC) [Mass/Vol] 32.1 g/dL Normal 32.0-35.0 [facility] Comment on above: Order Comment: No: D o not add to previous draw Performed By: #### 5 0608 ####[facility] MCV (RBC) [Entitic vol] 98.2 fL High 82.0-98.0 [facility] Comment on above: Order Comment: No: D o not add to previous draw Performed By: #### 5 0608 ####[place] [id number] [address] Nucleated RBC/100 WBC (Bld) [Ratio] 0 % Normal 0-0 [facility] Comment on above: Order Comment: No: D o not add to previous draw Performed By: #### 5 0608 ####[facility]3000 [facility].[address] PLAT CNT 168 10*3/uL Normal 150-400 The [facility] Comment on above: Order Comment: No: D o not add to previous draw Performed By: #### 5 0608 ####[address] RBC (Bld) [#/Vol] 3.39 10*6/uL Low 4.20-5.70 The [facility] Comment on above: Order Comment: No: D o not add to previous draw Performed By: #### 5 0608 ####[facility] [place] [address], [place] WBC (Bld) [#/Vol] 20.00 10*3/uL High 4.00-10.60 [facility] Comment on above: Order Comment: No: D o not add to previous draw Performed By: #### 5 0608 ####[facility] [place] [address], [place] MAGNESIUM BLOODon 10-31-2020 Magnesium [Mass/Vol] 2.1 mg/dL Normal 1.9-2.7 [facility] Comment on above: Order Comment: No: D o not add to previous draw Performed By: #### 0 0071, 65137 ####[facility] [place] [address], [place] POC GLUCOSE LABon 10-31-2020 Glucose [Mass/Vol] 168 mg/dL High 70-100 [facility] Comment on above: Performed By: #### 8 5499 ####[facility] [place] [address], [place] Glucose [Mass/Vol] 179 mg/dL High 70-100 [facility] Comment on above: Performed By: #### 8 5499 ####[facility] [place] [address], [place] Glucose [Mass/Vol] 173 mg/dL High 70-100 [facility] Comment on above: Performed By: #### 8 5499 ####[facility] [place] [address], [place] Glucose [Mass/Vol] 205 mg/dL High 70-100 [facility] Comment on above: Performed By: #### 8 5499 ####[facility] [place] [address], [place] Glucose [Mass/Vol] 236 mg/dL High 70-100 The [facility] Comment on above: Performed By: #### 8 5499 ####[facility]3000 [facility] [place] [address], [place] BASIC METABOLIC PANELon 02-2 Calcium [Mass/Vol] 7.7 mg/dL Low 8.6-10.3 The [facility] Comment on above: Order Comment: No: D o not add to previous draw Performed By: #### 0 0071, 70495 ####[facility]3000 [facility] [place] [address], [place] Chloride [Moles/Vol] 108 mmol/L High 98-107 [facility] Comment on above: Order Comment: No: D o not add to previous draw Performed By: #### 0 0071, 41260 ####[facility]3000 [facility] [place] [address], [place] CO2 [Moles/Vol] 26 mmol/L Normal 21-31 [facility] Comment on above: Order Comment: No: D o not add to previous draw Performed By: #### 0 0071, 32511 ####[facility]3000 [facility] [place] [address], [place] Creatinine [Mass/Vol] 0.85 mg/dL Normal 0.70-1.30 [facility] Comment on above: Order Comment: No: D o not add to previous draw Performed By: #### 0 0071, 72526 ####[facility]3000 [facility] [place] [address], [place] GFR/1.73 sq M.predicted among blacks MDRD (S/P/Bld) [Vol rate/Area] mL/min/{1.73_m2} Normal >60 [facility] Comment on above: Order Comment: No: D o not add to previous draw Result Comment: Calc ulation may not be valid for patients over 70 years Performed By: #### 0 0071, 28878 ####[facility] [place] [address], [place] GFR/1.73 sq M.predicted among non-blacks MDRD (S/P/Bld) [Vol rate/Area] mL/min/{1.73_m2} Normal >60 [facility] Comment on above: Order Comment: No: D o not add to previous draw Result Comment: Calc ulation may not be valid for patients over 70 years Performed By: #### 0 0071, 98068 ####[facility] [place] [address], [place] Glucose [Mass/Vol] 205 mg/dL High 70-100 The [facility] Comment on above: Order Comment: No: D o not add to previous draw Performed By: #### 0 0071, 39390 ####[facility] [place] [address], [place] Potassium [Moles/Vol] 3.7 mmol/L Normal 3.5-5.1 [facility] Comment on above: Order Comment: No: D o not add to previous draw Performed By: #### 0 0071, 52975 ####[facility] [place] [address], [place] Sodium [Moles/Vol] 140 mmol/L Normal 136-145 The [facility] Comment on above: Order Comment: No: D o not add to previous draw Performed By: #### 0 0071, 09215 ####[facility] [place] [address], [place] Urea nitrogen [Mass/Vol] 21 mg/dL Normal 7-25 [facility] Comment on above: Order Comment: No: D o not add to previous draw Performed By: #### 0 0071, 39503 ####[facility] [place] [address], [place] CBC COMPLETE BLOOD COUNTon 0 10-30-2020 Erythrocyte distribution width (RBC) [Ratio] 15.0 % Normal 11.5-15.0 [facility] Comment on above: Order Comment: No: D o not add to previous draw Performed By: #### 5 0608 ####[facility] Hematocrit (Bld) [Volume fraction] 33.5 % Low 39.0-50.0 [facility] Comment on above: Order Comment: No: D o not add to previous draw Performed By: #### 5 0608 ####[facility] [place] [address] Hemoglobin (Bld) [Mass/Vol] 10.7 g/dL Low 13.0-17.0 [facility] Comment on above: Order Comment: No: D o not add to previous draw Performed By: #### 5 0608 ####[facility] MCH (RBC) [Entitic mass] 31.7 pg Normal 27.0-33.0 [facility] Comment on above: Order Comment: No: D o not add to previous draw Performed By: #### 5 0608 ####[facility] MCHC (RBC) [Mass/Vol] 31.9 g/dL Low 32.0-35.0 [facility] Comment on above: Order Comment: No: D o not add to previous draw Performed By: #### 5 0608 ####[facility] MCV (RBC) [Entitic vol] 99.1 fL High 82.0-98.0 [facility] Comment on above: Order Comment: No: D o not add to previous draw Performed By: #### 5 0608 ####[facility] [place] [address], [place] Nucleated RBC/100 WBC (Bld) [Ratio] 0 % Normal 0-0 [facility] Comment on above: Order Comment: No: D o not add to previous draw Performed By: #### 5 0608 ####[facility] [place] [address], [place] PLAT CNT 156 10*3/uL Normal 150-400 The [facility] Comment on above: Order Comment: No: D o not add to previous draw Performed By: #### 5 0608 ####[facility]3000 [facility] [place] [address], [place] RBC (Bld) [#/Vol] 3.38 10*6/uL Low 4.20-5.70 [facility] Comment on above: Order Comment: No: D o not add to previous draw Performed By: #### 5 0608 ####[facility] [facility] [place] [address], [place] WBC (Bld) [#/Vol] 19.93 10*3/uL High 4.00-10.60 [facility] Comment on above: Order Comment: No: D o not add to previous draw Performed By: #### 5 0608 ####[facility] [place] [address], [place] MAGNESIUM BLOODon 10-30-2020 Magnesium [Mass/Vol] 2.1 mg/dL Normal 1.9-2.7 [facility] Comment on above: Order Comment: No: D o not add to previous draw Performed By: #### 0 0071, 13954 ####[facility]3000 [facility] [place] [address], [place] POC GLUCOSE LABon 10-30-2020 Glucose [Mass/Vol] 178 mg/dL High 70-100 The [facility] Comment on above: Performed By: #### 8 5499 ####[facility] [place] [address], [place] Glucose [Mass/Vol] 173 mg/dL High 70-100 The [facility] Comment on above: Performed By: #### 8 5499 ####[facility] [place] [address], [place] Glucose [Mass/Vol] 192 mg/dL High 70-100 The [facility] Comment on above: Performed By: #### 8 5499 ####[facility] [place] [address], [place] Glucose [Mass/Vol] 176 mg/dL High 70-100 The [facility] Comment on above: Performed By: #### 8 5499 ####[facility] [place] [address], [place] Glucose [Mass/Vol] 211 mg/dL High 70-100 The [facility] Comment on above: Performed By: #### 8 5499 ####[facility] [place] [address], [place] BASIC METABOLIC PANELon 02-2 Calcium [Mass/Vol] 7.6 mg/dL Low 8.6-10.3 The [facility] Comment on above: Order Comment: No: D o not add to previous draw Performed By: #### 0 0071, 24872 ####[facility] [place] [address], [place] Chloride [Moles/Vol] 111 mmol/L High 98-107 [facility] Comment on above: Order Comment: No: D o not add to previous draw Performed By: #### 0 0071, 68722 ####[facility] [place] [address], [place] CO2 [Moles/Vol] 21 mmol/L Normal 21-[address] [facility] Comment on above: Order Comment: No: D o not add to previous draw Performed By: #### 0 0071, 84762 ####[facility]3000 [facility] [place] [address], [place] Creatinine [Mass/Vol] 0.90 mg/dL Normal 0.70-1.30 [facility] Comment on above: Order Comment: No: D o not add to previous draw Performed By: #### 0 0071, 41689 ####[facility]3000 [facility] [place] [address], [place] GFR/1.73 sq M.predicted among blacks MDRD (S/P/Bld) [Vol rate/Area] mL/min/{1.73_m2} Normal >60 [facility] Comment on above: Order Comment: No: D o not add to previous draw Result Comment: Calc ulation may not be valid for patients over 70 years Performed By: #### 0 0071, 63672 ####[facility]3000 [facility] [place] [address], [place] GFR/1.73 sq M.predicted among non-blacks MDRD (S/P/Bld) [Vol rate/Area] mL/min/{1.73_m2} Normal >60 [facility] Comment on above: Order Comment: No: D o not add to previous draw Result Comment: Calc ulation may not be valid for patients over 70 years Performed By: #### 0 0071, 78249 ####[facility] [facility] [place] [address], [place] Glucose [Mass/Vol] 164 mg/dL High 70-100 The [facility] Comment on above: Order Comment: No: D o not add to previous draw Performed By: #### 0 0071, 76472 ####[facility]3000 [facility] [place] [address], [place] Potassium [Moles/Vol] 3.7 mmol/L Normal 3.5-5.1 [facility] Comment on above: Order Comment: No: D o not add to previous draw Performed By: #### 0 0071, 20592 ####[facility] [place] [address], [place] Sodium [Moles/Vol] 140 mmol/L Normal 136-145 The [facility] Comment on above: Order Comment: No: D o not add to previous draw Performed By: #### 0 0071, 65409 ####[facility] [place] [address], [place] Urea nitrogen [Mass/Vol] 21 mg/dL Normal 7-25 [facility] Comment on above: Order Comment: No: D o not add to previous draw Performed By: #### 0 0071, 76033 ####[facility] [place] [address], [place] Calcium [Mass/Vol] 7.2 mg/dL Low 8.6-10.3 The [facility] Comment on above: Order Comment: No: D o not add to previous draw Performed By: #### 0 0071, 59335 ####[facility] [place] [address], [place] Chloride [Moles/Vol] 111 mmol/L High 98-107 [facility] Comment on above: Order Comment: No: D o not add to previous draw Performed By: #### 0 0071, 21270 ####[facility] [place] [address], [place] CO2 [Moles/Vol] 21 mmol/L Normal 21-31 [facility] Comment on above: Order Comment: No: D o not add to previous draw Performed By: #### 0 0071, 74464 ####[facility] [place] [address], [place] Creatinine [Mass/Vol] 0.99 mg/dL Normal 0.70-1.30 [facility] Comment on above: Order Comment: No: D o not add to previous draw Performed By: #### 0 0071, 26100 ####[facility] [place] [address], [place] GFR/1.73 sq M.predicted among blacks MDRD (S/P/Bld) [Vol rate/Area] mL/min/{1.73_m2} Normal >60 [facility] Comment on above: Order Comment: No: D o not add to previous draw Result Comment: Calc ulation may not be valid for patients over 70 years Performed By: #### 0 0071, 19431 ####[facility] [place] [address], [place] GFR/1.73 sq M.predicted among non-blacks MDRD (S/P/Bld) [Vol rate/Area] mL/min/{1.73_m2} Normal >60 [facility] Comment on above: Order Comment: No: D o not add to previous draw Result Comment: Calc ulation may not be valid for patients over 70 years Performed By: #### 0 0071, 19364 ####[facility]3000 [facility] [place] [address], [place] Glucose [Mass/Vol] 133 mg/dL High 70-100 The [facility] Comment on above: Order Comment: No: D o not add to previous draw Performed By: #### 0 0071, 54812 ####[facility] [place] [address], [place] Potassium [Moles/Vol] 3.8 mmol/L Normal 3.5-5.1 [facility] Comment on above: Order Comment: No: D o not add to previous draw Performed By: #### 0 0071, 41863 ####[facility] [place] [address], [place] Sodium [Moles/Vol] 140 mmol/L Normal 136-145 The [facility] Comment on above: Order Comment: No: D o not add to previous draw Performed By: #### 0 0071, 05464 ####[facility]3000 [facility].[address] Urea nitrogen [Mass/Vol] 20 mg/dL Normal 7-25 [facility] Comment on above: Order Comment: No: D o not add to previous draw Performed By: #### 0 0071, 51170 ####[facility]3000 [facility] [place] [address], [place] CBC W/DIFFon 10-29-2020 ABS BASOPHILS CANCELED Normal 0.0-0.2 The [facility] Comment on above: Result Comment: The released value 0.0 was canceled by KNG on 10/29/2020 22:20 Performed By: #### 5 0103 ####[address] ABS EOSINOPHILS CANCELED Normal 0.0-0.5 [facility] Comment on above: Result Comment: The released value 0.0 was canceled by KNG on 10/29/2020 22:20 Performed By: #### 5 0103 ####[address] ABS IMM GRANS CANCELED Normal The [facility] Comment on above: Performed By: #### 5 0103 ####[address] ABS IMM GRANS 0.1 10*3/uL Normal 0.0-0.2 The [facility] Comment on above: Order Comment: This order is a replacement of the rejected order with accession [id number]. Performed By: #### 5 0103 ####[address] ABS LYMPHS CANCELED Normal 1.2-4.0 [facility] Comment on above: Result Comment: The released value 8.3 was canceled by KNG on 10/29/2020 22:20 Performed By: #### 5 0103 ####[facility] ABS MONOCYTES CANCELED Normal 0.1-1.0 The [facility] Comment on above: Result Comment: The released value 0.2 was canceled by KNG on 10/29/2020 22:20 Performed By: #### 5 0103 ####[facility] ABS NEUTROPHILS CANCELED Normal 1.6-7.6 [facility] Comment on above: Result Comment: The released value 12.9 was canceled by KNG on 10/29/2020 22:20 Performed By: #### 5 3 ####[facility]3000 [facility].[address] ABS NEUTROPHILS 4.8 10*3/uL Normal 1.6-7.6 The [facility] Comment on above: Order Comment: This order is a replacement of the rejected order with accession [id number]. Performed By: #### 5 3 ####[facility]3000 [facility] [place] [address], [place] ABSOLUTE BANDS CANCELED Normal The [facility] Comment on above: Performed By: #### 5 3 ####[facility]3000 [facility] [place] [address], [place] ACANTHOCYTES CANCELED Normal The [facility] Comment on above: Performed By: #### 5 3 ####[facility]3000 [facility] [place] [address], [place] ANISO CANCELED Normal [facility] Comment on above: Performed By: #### 3 ####[facility] [place] [address], [place] ATYPICAL CELLS CANCELED Normal The [facility] Comment on above: Performed By: #### 5 0103 ####[facility]3000 [facility].[address] BANDS CANCELED Normal [facility] Comment on above: Performed By: #### 5 3 ####[facility]3000 [facility] [place] [address], [place] BASO CANCELED Normal 0.0-1.0 [facility] Comment on above: Result Comment: The released value 0.0 was canceled by KNG on 10/29/2020 22:20 Performed By: #### 5 0103 ####[facility]3000 [facility].[address] BASOPHIL STIPPL CANCELED Normal [facility] Comment on above: Performed By: #### 5 0103 ####[facility]3000 [facility].[address] Basophils (Bld) [#/Vol] 0.0 10*3/uL Normal 0.0-0.2 [facility] Comment on above: Order Comment: This order is a replacement of the rejected order with accession [id number]. Performed By: #### 5 3 ####[facility]3000 [facility].[address] Basophils/100 WBC (Bld) 0.2 % Normal 0.0-1.0 [facility] Comment on above: Order Comment: This order is a replacement of the rejected order with accession [id number]. Performed By: #### 5 3 ####[facility]3000 [facility].[address] BLASTS CANCELED Normal [facility] Comment on above: Performed By: #### 5 3 ####[facility] PARAMJIT CELLS CANCELED Normal [facility] Comment on above: Performed By: #### 5 0103 ####[facility] [place] [address], [place] DOHLE BODIES CANCELED Normal The [facility] Comment on above: Performed By: #### 5 0103 ####[facility] [facility] [place] [address], [place] ELLIPTOCYTES CANCELED Normal The [facility] Comment on above: Performed By: #### 5 0103 ####[facility]3000 [facility] [place] [address], [place] EOS CANCELED Normal 0.0-6.0 [facility] Comment on above: Result Comment: The released value 0.0 was canceled by [employer] on 10/29/2020 22:20 Performed By: #### 5 0103 ####[facility] [facility] [place] [address], [place] Eosinophils (Bld) [#/Vol] 0.0 10*3/uL Normal 0.0-0.5 [facility] Comment on above: Order Comment: This order is a replacement of the rejected order with accession [id number]. Performed By: #### 5 0103 ####[facility] [facility] [place] [address], [place] Eosinophils/100 WBC (Bld) 0.2 % Normal 0.0-6.0 [facility] Comment on above: Order Comment: This order is a replacement of the rejected order with accession [id number]. Performed By: #### 5 0103 ####[facility]3000 [facility].[address] Erythrocyte distribution width (RBC) [Ratio] 15.0 % Normal 11.5-15.0 [facility] Comment on above: Order Comment: This order is a replacement of the rejected order with accession [id number]. Performed By: #### 5 0103 ####[facility]3000 [facility] [place] [address], [place] GIANT PLATELETS CANCELED Normal [facility] Comment on above: Result Comment: The released value Present was canceled by KNG on 10/29/2020 22:20 Performed By: #### 5 0103 ####[facility] [facility] [place] [address], [place] GIANT PLATELETS Present Normal [facility] Comment on above: Order Comment: This order is a replacement of the rejected order with accession [id number]. Performed By: #### 5 0103 ####[facility] [place] [address], [place] HCT CANCELED Normal 39.0-50.0 [facility] Comment on above: Result Comment: The released value 35.5 was canceled by KNG on 10/29/2020 22:20 Performed By: #### 5 0103 ####[facility] HELMET CELLS CANCELED Normal The [facility] Comment on above: Performed By: #### 5 0103 ####[place] [address] [facility].[address] Hematocrit (Bld) [Volume fraction] 35.5 % Low 39.0-50.0 [facility] Comment on above: Order Comment: This order is a replacement of the rejected order with accession [id number]. Performed By: #### 5 0103 ####[place] [address] Hemoglobin (Bld) [Mass/Vol] 11.0 g/dL Low 13.0-17.0 [facility] Comment on above: Order Comment: This order is a replacement of the rejected order with accession [id number]. Performed By: #### 5 0103 ####[facility] HGB CANCELED Normal 13.0-17.0 [facility] Comment on above: Result Comment: The released value 11.0 was canceled by KNG on 10/29/2020 22:20 Performed By: #### 5 0103 ####[facility] MAN JOLLY BODIES CANCELED Normal The [facility] Comment on above: Performed By: #### 5 0103 ####[facility]3000 [facility].[address] HYPERSEG NEUTROPHILS CANCELED Normal The [facility] Comment on above: Performed By: #### 5 0103 ####[facility] [facility].[address] HYPO CANCELED Normal [facility] Comment on above: Performed By: #### 5 0103 ####[facility]3000 [facility].[address] [place] CANCELED Normal [facility] Comment on above: Performed By: #### 5 0103 ####[facility] [facility].[address] IMM PLATELET FRAC CANCELED Normal The [facility] Comment on above: Performed By: #### 5 0103 ####[facility] [facility].[address] IMMATURE GRANS CANCELED Normal The [facility] Comment on above: Performed By: #### 5 0103 ####[facility] [place] [address], [place] IMMATURE GRANS 0.3 % Normal 0.0-1.0 The [facility] Comment on above: Order Comment: This order is a replacement of the rejected order with accession [id number]. Performed By: #### 5 0103 ####[facility] Lymphocytes (Bld) [#/Vol] 16.0 10*3/uL High 1.2-4.0 [facility] Comment on above: Order Comment: This order is a replacement of the rejected order with accession [id number]. Performed By: #### 5 0103 ####[facility] Lymphocytes/100 WBC (Bld) 74.9 % High 20.0-45.0 [facility] Comment on above: Order Comment: This order is a replacement of the rejected order with accession [id number]. Performed By: #### 5 0103 ####[facility] LYMPHS CANCELED Normal 20.0-45.0 [facility] Comment on above: Result Comment: The released value 38.6 was canceled by KNG on 10/29/2020 22:20 Performed By: #### 5 3 ####[facility] [facility].[address] MACRO CANCELED Normal [facility] Comment on above: Performed By: #### 5 3 ####[facility] [facility].[address] MCH CANCELED Normal 27.0-33.0 [facility] Comment on above: Result Comment: The released value 31.9 was canceled by KNG on 10/29/2020 22:20 Performed By: #### 5 3 ####[facility] [facility] [place] [address], [place] MCH (RBC) [Entitic mass] 31.9 pg Normal 27.0-33.0 [facility] Comment on above: Order Comment: This order is a replacement of the rejected order with accession [id number]. Performed By: #### 5 0103 ####[facility] MCHC CANCELED Normal 32.0-35.0 [facility] Comment on above: Result Comment: The released value 31.0 was canceled by KNG on 10/29/2020 22:20 Performed By: #### 5 0103 ####[facility] MCHC (RBC) [Mass/Vol] 31.0 g/dL Low 32.0-35.0 [facility] Comment on above: Order Comment: This order is a replacement of the rejected order with accession [id number]. Performed By: #### 5 0103 ####[facility] MCV CANCELED Normal 82.0-98.0 [facility] Comment on above: Result Comment: The released value 102.9 was canceled by KNG on 10/29/2020 22:20 Performed By: #### 5 0103 ####[facility] MCV (RBC) [Entitic vol] 102.9 fL High 82.0-98.0 [facility] Comment on above: Order Comment: This order is a replacement of the rejected order with accession [id number]. Performed By: #### 5 0103 ####[facility] METAMYELO CANCELED Normal [facility] Comment on above: Performed By: #### 5 0103 ####[facility]3000 [facility].[address] MICRO CANCELED Normal [facility] Comment on above: Performed By: #### 5 0103 ####[facility] [facility] [place] [address], [place] Monocytes (Bld) [#/Vol] 0.4 10*3/uL Normal 0.1-1.0 [facility] Comment on above: Order Comment: This order is a replacement of the rejected order with accession [id number]. Performed By: #### 5 0103 ####[facility]3000 [facility].[address] MONOS CANCELED Normal 5.0-12.0 [facility] Comment on above: Result Comment: The released value 1.0 was canceled by KNG on 10/29/2020 22:20 Performed By: #### 5 0103 ####[facility] [facility].[address] MONOS 1.9 % Low 5.0-12.0 [facility] Comment on above: Order Comment: This order is a replacement of the rejected order with accession [id number]. Performed By: #### 5 0103 ####[facility]3000 [facility].[address] MYELOS CANCELED Normal [facility] Comment on above: Performed By: #### 5 0103 ####[facility]3000 [facility].[address] NEUTROPHILS CANCELED Normal 40.0-72.0 The [facility] Comment on above: Result Comment: The released value 60.4 was canceled by KNG on 10/29/2020 22:20 Performed By: #### 5 0103 ####[facility] [facility] [place] [address], [place] Neutrophils/100 WBC (Bld) 22.5 % Low 40.0-72.0 [facility] Comment on above: Order Comment: This order is a replacement of the rejected order with accession [id number]. Performed By: #### 5 0103 ####[facility] [place] [address], [place] NRBC CANCELED Normal 0-0 [facility] Comment on above: Result Comment: The released value 0 was canceled by KNG on 10/29/2020 22:20 Performed By: #### 5 0103 ####[facility] [place] [address], [place] NRBC SCAN CANCELED Normal [facility] Comment on above: Performed By: #### 5 0103 ####[facility] [place] [address], [place] OTHER 1 CANCELED Normal [facility] Comment on above: Performed By: #### 5 0103 ####[facility] [place] [address], [place] OTHER 2 CANCELED Normal [facility] Comment on above: Performed By: #### 5 0103 ####[facility] [place] [address], [place] OTHER 3 CANCELED Normal [facility] Comment on above: Performed By: #### 5 0103 ####[facility] [place] [address], [place] OTHER 4 CANCELED Normal [facility] Comment on above: Performed By: #### 5 3 ####[facility] [place] [address], [place] OVALOCYTES CANCELED Normal [facility] Comment on above: Performed By: #### 5 0103 ####[facility] [place] [address], [place] PAPPENHEIMER BODIES CANCELED Normal The [facility] Comment on above: Performed By: #### 3 ####[facility] [place] [address], [place] PARASITES CANCELED Normal [facility] Comment on above: Performed By: #### 3 ####[facility] [place] [address], [place] PLAT CNT CANCELED Normal 150-400 [facility] Comment on above: Result Comment: The released value 139 was canceled by KNG on 10/29/2020 22:20 Performed By: #### 5 3 ####[facility] [place] [address], [place] PLAT CNT 139 10*3/uL Low 150-400 The [facility] Comment on above: Order Comment: This order is a replacement of the rejected order with accession [id number]. Performed By: #### 0103 ####[facility] [place] [address], [place] PLAT ESTIMATE CANCELED Normal The [facility] Comment on above: Performed By: #### 3 ####[facility] [place] [address], [place] POIK CANCELED Normal [facility] Comment on above: Performed By: #### 3 ####[facility] [place] [address], [place] POLY CANCELED Normal [facility] Comment on above: Performed By: #### 3 ####[facility] [place] [address], [place] PROMYELO CANCELED Normal [facility] Comment on above: Performed By: #### 3 ####[facility] [place] [address], [place] RBC CANCELED Normal 4.20-5.70 [facility] Comment on above: Result Comment: The released value 3.45 was canceled by KNG on 10/29/2020 22:20 Performed By: #### 5 0103 ####[facility] [place] [address], [place] RBC (Bld) [#/Vol] 3.45 10*6/uL Low 4.20-5.70 The [facility] Comment on above: Order Comment: This order is a replacement of the rejected order with accession [id number]. Performed By: #### 5 0103 ####[facility]3000 [facility] [place] [address], [place] RDW CANCELED Normal 11.5-15.0 [facility] Comment on above: Result Comment: The released value 15.0 was canceled by KNG on 10/29/2020 22:20 Performed By: #### 5 0103 ####[facility] [place] [address], [place] REACTIVE LYMPHS CANCELED Normal [facility] Comment on above: Performed By: #### 5 0103 ####[facility] [place] [address], [place] ROULEAUX CANCELED Normal [facility] Comment on above: Performed By: #### 5 0103 ####[facility] [place] [address], [place] SCHISTOCYTES CANCELED Normal The [facility] Comment on above: Performed By: #### 5 0103 ####[facility] [place] [address], [place] SEGS CANCELED Normal [facility] Comment on above: Performed By: #### 5 0103 ####[facility] [place] [address], [place] SICKLE CELLS CANCELED Normal [facility] Comment on above: Performed By: #### 5 0103 ####[facility] [place] [address], [place] SMUDGE CELLS CANCELED Normal The [facility] Comment on above: Result Comment: The released value Many was canceled by KNG on 10/29/2020 22:20 Performed By: #### 5 0103 ####[facility] [place] [address], [place] SMUDGE CELLS Many Normal The [facility] Comment on above: Order Comment: This order is a replacement of the rejected order with accession [id number]. Performed By: #### 5 3 ####[facility] [place] [address], [place] SPHEROCYTES CANCELED Normal The [facility] Comment on above: Performed By: #### 3 ####[facility] [place] [address], [place] STOMATOCYTES CANCELED [facility] Comment on above: Performed By: #### 3 ####[facility] [place] [address], [place] TARGET CELLS CANCELED Normal The [facility] Comment on above: Performed By: #### 3 ####[facility] [place] [address], [place] TEAR DROP CELLS CANCELED Normal [facility] Comment on above: Performed By: #### 3 ####[facility] [place] [address], [place] TOXIC GRANULATION CANCELED Normal The [facility] Comment on above: Performed By: #### 5 3 ####[facility]3000 [facility].[address] VAC NEUTROPHIL CANCELED Normal The [facility] Comment on above: Performed By: #### 5 0103 ####[place] [address] [facility] [place] [address], [place] WBC CANCELED Normal 4.00-10.60 [facility] Comment on above: Result Comment: The released value 21.41 was canceled by KNG on 10/29/2020 22:20 Performed By: #### 5 0103 ####[address] [place] [address], [place] WBC (Bld) [#/Vol] 21.41 10*3/uL High 4.00-10.60 [facility] Comment on above: Order Comment: This order is a replacement of the rejected order with accession [id number]. Performed By: #### 5 0103 ####[facility] [place] [address] ABS IMM GRANS 0.1 10*3/uL Normal 0.0-0.2 The [facility] Comment on above: Order Comment: No: D o not add to previous draw Performed By: #### 5 0103 ####[address] ABS NEUTROPHILS 4.4 10*3/uL Normal 1.6-7.6 The [facility] Comment on above: Order Comment: No: D o not add to previous draw Performed By: #### 5 0103 ####[address] [place] [address], [place] Basophils (Bld) [#/Vol] 0.1 10*3/uL Normal 0.0-0.2 [facility] Comment on above: Order Comment: No: D o not add to previous draw Performed By: #### 5 0103 ####[address] [place] [address], [place] Basophils/100 WBC (Bld) 0.3 % Normal 0.0-1.0 [facility] Comment on above: Order Comment: No: D o not add to previous draw Performed By: #### 5 0103 ####[facility] [facility] [place] [address], [place] Eosinophils (Bld) [#/Vol] 0.1 10*3/uL Normal 0.0-0.5 [facility] Comment on above: Order Comment: No: D o not add to previous draw Performed By: #### 5 0103 ####[facility] [facility] [place] [address], [place] Eosinophils/100 WBC (Bld) 0.3 % Normal 0.0-6.0 [facility] Comment on above: Order Comment: No: D o not add to previous draw Performed By: #### 5 0103 ####[facility] [place] [address], [place] Erythrocyte distribution width (RBC) [Ratio] 15.4 % High 11.5-15.0 [facility] Comment on above: Order Comment: No: D o not add to previous draw Performed By: #### 5 0103 ####[facility]3000 [facility] [place] [address], [place] Hematocrit (Bld) [Volume fraction] 33.8 % Low 39.0-50.0 [facility] Comment on above: Order Comment: No: D o not add to previous draw Performed By: #### 5 0103 ####[facility] [facility] [place] [address], [place] Hemoglobin (Bld) [Mass/Vol] 9.8 g/dL Low 13.0-17.0 [facility] Comment on above: Order Comment: No: D o not add to previous draw Performed By: #### 5 0103 ####[facility] IMMATURE GRANS 0.3 % Normal 0.0-1.0 The [facility] Comment on above: Order Comment: No: D o not add to previous draw Performed By: #### 5 0103 ####[facility] [place] [address], [place] Lymphocytes (Bld) [#/Vol] 14.8 10*3/uL High 1.2-4.0 [facility] Comment on above: Order Comment: No: D o not add to previous draw Performed By: #### 5 0103 ####[place] [address] Lymphocytes/100 WBC (Bld) 75.4 % High 20.0-45.0 [facility] Comment on above: Order Comment: No: D o not add to previous draw Performed By: #### 5 0103 ####[facility] MCH (RBC) [Entitic mass] 31.8 pg Normal 27.0-33.0 [facility] Comment on above: Order Comment: No: D o not add to previous draw Performed By: #### 5 0103 ####[facility] MCHC (RBC) [Mass/Vol] 29.0 g/dL Low 32.0-35.0 [facility] Comment on above: Order Comment: No: D o not add to previous draw Performed By: #### 5 0103 ####[facility] [place] [address], [place] MCV (RBC) [Entitic vol] 109.7 fL High 82.0-98.0 [facility] Comment on above: Order Comment: No: D o not add to previous draw Performed By: #### 5 0103 ####[facility] [facility] [place] [address], [place] Monocytes (Bld) [#/Vol] 0.3 10*3/uL Normal 0.1-1.0 [facility] Comment on above: Order Comment: No: D o not add to previous draw Performed By: #### 5 0103 ####[facility] [facility] [place] [address], [place] MONOS 1.4 % Low 5.0-12.0 [facility] Comment on above: Order Comment: No: D o not add to previous draw Performed By: #### 5 0103 ####[facility] [facility] [place] [address], [place] Neutrophils/100 WBC (Bld) 22.3 % Low 40.0-72.0 [facility] Comment on above: Order Comment: No: D o not add to previous draw Performed By: #### 5 0103 ####[facility] [facility] [place] [address], [place] Nucleated RBC/100 WBC (Bld) [Ratio] 0 % Normal 0-0 [facility] Comment on above: Order Comment: No: D o not add to previous draw Performed By: #### 5 0103 ####[facility] OTHER 1 Lymphocytosis and ma ny smudge cells. Normal [facility] Comment on above: Order Comment: No: D o not add to previous draw Result Comment: Resu lt changed by [email or web address] on 10/31/2020 12:14. The previous value wasPreliminary report; verified report to follow. Performed By: #### 5 0103 ####[facility] OTHER 2 Checked by Erika Martinez M.D. Normal [facility] Comment on above: Order Comment: No: D o not add to previous draw Result Comment: This result added by CHIKI on 10/31/2020 12:14. Performed By: #### 5 0103 ####[facility] [facility] [place] [address], [place] PLAT CNT 125 10*3/uL Low 150-400 The [facility] Comment on above: Order Comment: No: D o not add to previous draw Performed By: #### 5 0103 ####[facility] [facility] [place] [address], [place] RBC (Bld) [#/Vol] 3.08 10*6/uL Low 4.20-5.70 The [facility] Comment on above: Order Comment: No: D o not add to previous draw Performed By: #### 5 0103 ####[facility]3000 [facility].[address] SMUDGE CELLS MANY PRESENT Normal The [facility] Comment on above: Order Comment: No: D o not add to previous draw Performed By: #### 5 0103 ####[facility] [facility] [place] [address], [place] WBC (Bld) [#/Vol] 19.59 10*3/uL High 4.00-10.60 [facility] Comment on above: Order Comment: No: D o not add to previous draw Performed By: #### 5 0103 ####[facility]3000 [facility].[address] ABDOMEN AND PELVIS WO CON TRASTon 10-29-2020 CT ABDOMEN AND PELVIS WO CONTRAST Normal The [facility] Comment on above: Order Comment: Other , s/p sigmoid colectomy d/t perforated diverticulum. Severe abdominal pain. R/O further abdominal pathology. MAGNESIUM BLOODon 10-29-2020 Magnesium [Mass/Vol] 2.1 mg/dL Normal 1.9-2.7 [facility] Comment on above: Order Comment: No: D o not add to previous draw Performed By: #### 0 0071, [id number] ####[facility] [place] [address], [place] Magnesium [Mass/Vol] 2.0 mg/dL Normal 1.9-2.7 [facility] Comment on above: Order Comment: No: D o not add to previous draw Performed By: #### 0 0071, 14556 ####[facility] [place] [address], [place] POC GLUCOSE LABon 10-29-2020 Glucose [Mass/Vol] 172 mg/dL High 70-100 [facility] Comment on above: Performed By: #### 8 5499 ####[facility] [place] [address], [place] Glucose [Mass/Vol] 177 mg/dL High 70-100 [facility] Comment on above: Performed By: #### 8 5499 ####[facility] [place] [address], [place] Glucose [Mass/Vol] 135 mg/dL High 70-100 The [facility] Comment on above: Performed By: #### 8 5499 ####[facility] [place] [address], [place] Glucose [Mass/Vol] 131 mg/dL High 70-100 The [facility] Comment on above: Performed By: #### 8 5499 ####[facility] [place] [address], [place] BASIC METABOLIC PANELon 10-04 Calcium [Mass/Vol] 7.5 mg/dL Low 8.6-10.3 The [facility] Comment on above: Order Comment: No: D o not add to previous draw Performed By: #### 0 0071, [id number] ####[facility] [place] [address], [place] Chloride [Moles/Vol] 105 mmol/L Normal 98-107 [facility] Comment on above: Order Comment: No: D o not add to previous draw Performed By: #### 0 0071, [id number] ####[facility] [place] [address], [place] CO2 [Moles/Vol] 24 mmol/L Normal 21-31 [facility] Comment on above: Order Comment: No: D o not add to previous draw Performed By: #### 0 0071, [id number] ####[facility] [place] [address], [place] Creatinine [Mass/Vol] 0.97 mg/dL Normal 0.70-1.30 [facility] Comment on above: Order Comment: No: D o not add to previous draw Performed By: #### 0 0071, 93056 ####[facility]3000 [facility] [place] [address], [place] GFR/1.73 sq M.predicted among blacks MDRD (S/P/Bld) [Vol rate/Area] mL/min/{1.73_m2} Normal >60 [facility] Comment on above: Order Comment: No: D o not add to previous draw Result Comment: Calc ulation may not be valid for patients over 70 years Performed By: #### 0 0071, [id number] ####[facility] [place] [address], [place] GFR/1.73 sq M.predicted among non-blacks MDRD (S/P/Bld) [Vol rate/Area] mL/min/{1.73_m2} Normal >60 [facility] Comment on above: Order Comment: No: D o not add to previous draw Result Comment: Calc ulation may not be valid for patients over 70 years Performed By: #### 0 0071, 74533 ####[facility] [place] [address], [place] Glucose [Mass/Vol] 206 mg/dL High 70-100 The [facility] Comment on above: Order Comment: No: D o not add to previous draw Performed By: #### 0 0071, 23591 ####[facility] [place] [address], [place] Potassium [Moles/Vol] 3.4 mmol/L Low 3.5-5.1 [facility] Comment on above: Order Comment: No: D o not add to previous draw Performed By: #### 0 0071, 67986 ####[facility] [place] [address], [place] Sodium [Moles/Vol] 136 mmol/L Normal 136-145 The [facility] Comment on above: Order Comment: No: D o not add to previous draw Performed By: #### 0 0071, 23238 ####[facility] Urea nitrogen [Mass/Vol] 17 mg/dL Normal 7-25 [facility] Comment on above: Order Comment: No: D o not add to previous draw Performed By: #### 0 0071, [id number] ####[facility]3000 [facility].[address] [facility] COMPLETE BLOOD COUNTon 0 - Erythrocyte distribution width (RBC) [Ratio] 15.1 % High 11.5-15.0 [facility] Comment on above: Order Comment: No: D o not add to previous draw Performed By: #### 5 0608 ####[facility] [place] [address], [place] Hematocrit (Bld) [Volume fraction] 36.2 % Low 39.0-50.0 [facility] Comment on above: Order Comment: No: D o not add to previous draw Performed By: #### 5 0608 ####[facility] Hemoglobin (Bld) [Mass/Vol] 11.6 g/dL Low 13.0-17.0 [facility] Comment on above: Order Comment: No: D o not add to previous draw Performed By: #### 5 0608 ####[facility] MCH (RBC) [Entitic mass] 31.8 pg Normal 27.0-33.0 [facility] Comment on above: Order Comment: No: D o not add to previous draw Performed By: #### 5 0608 ####[facility] MCHC (RBC) [Mass/Vol] 32.0 g/dL Normal 32.0-35.0 [facility] Comment on above: Order Comment: No: D o not add to previous draw Performed By: #### 5 0608 ####[facility]3000 [facility].[address] MCV (RBC) [Entitic vol] 99.2 fL High 82.0-98.0 [facility] Comment on above: Order Comment: No: D o not add to previous draw Performed By: #### 5 0608 ####[place] [address] [facility].[address] Nucleated RBC/100 WBC (Bld) [Ratio] 0 % Normal 0-0 [facility] Comment on above: Order Comment: No: D o not add to previous draw Performed By: #### 5 0608 ####[facility]3000 [facility] [place] [address], [place] PLAT CNT 133 10*3/uL Low 150-400 [facility] Comment on above: Order Comment: No: D o not add to previous draw Performed By: #### 5 0608 ####[facility]3000 [facility].[address] RBC (Bld) [#/Vol] 3.65 10*6/uL Low 4.20-5.70 [facility] Comment on above: Order Comment: No: D o not add to previous draw Performed By: #### 5 0608 ####[facility] [place] [address], [place] WBC (Bld) [#/Vol] 27.62 10*3/uL High 4.00-10.60 [facility] Comment on above: Order Comment: No: D o not add to previous draw Performed By: #### 5 0608 ####[facility] [place] [address], [place] MAGNESIUM BLOODon 10-28-2020 Magnesium [Mass/Vol] 2.0 mg/dL Normal 1.9-2.7 [facility] Comment on above: Order Comment: No: D o not add to previous draw Performed By: #### 0 0071, 33834 ####[facility] [place] [address], [place] Operative Reporton Operative Report Normal The [facility] POC GLUCOSE LABon 10-28-2020 Glucose [Mass/Vol] 141 mg/dL High 70-100 The [facility] Comment on above: Performed By: #### 8 5499 ####[facility] [place] [address], [place] Glucose [Mass/Vol] 128 mg/dL High 70-100 The [facility] Comment on above: Performed By: #### 8 5499 ####[facility] [id number], [place] Glucose [Mass/Vol] 166 mg/dL High 70-100 The [facility] Comment on above: Performed By: #### 8 5499 ####[facility] Glucose [Mass/Vol] 182 mg/dL High 70-100 The [facility] Comment on above: Performed By: #### 8 5499 ####[place] [address] [facility] [place] [address], [place] Glucose [Mass/Vol] 222 mg/dL High 70-100 The [facility] Comment on above: Performed By: #### 8 5499 ####[place] [address] [facility].[address] APTTon 10-27-2020 aPTT Coag (Bld) [Time] 33.4 s Normal 25.0-35.0 [facility] Comment on above: Order Comment: No: [...] THIS PURPOSE. Performed By: #### 5 7307, 13460 ####[address] ARTERIAL BLOOD GAS W/COOXon 10-27-2020 BASE EXCESS -2 mmol/L Normal -2-3 [facility] Comment on above: Performed By: #### 7 0067, 06038, 66815, 52166 ####[facility]3000 [facility].[address] COHB 1.3 % Normal 0.0-1.5 [facility] Comment on above: Performed By: #### 7 0067, 32842, 91505, 77923 ####[facility]3000 [facility] [place] [address], [place] HCO3 (Bld) [Moles/Vol] 22 mmol/L Normal 21-28 [facility] Comment on above: Performed By: #### 7 66, , 64538, 60623 ####[facility] [place] [address], [place] METHB 0.6 % Normal 0.0-1.5 [facility] Comment on above: Performed By: #### 7 66, , 61755, 45623 ####[facility] [place] [address], [place] MODALITY OR Normal [facility] Comment on above: Performed By: #### 7 66, , 16125, 98910 ####[facility] [place] [address], [place] Oxygen (Bld) [Partial pressure] 172 mm[Hg] Critically high 83-108 [facility] Comment on above: Performed By: #### 7 66, , 91571, 03531 ####[facility] [place] [address], [place] Oxygen saturation in Blood 96.9 % Normal 94.0-97.0 [facility] Comment on above: Performed By: #### 7 66, , 89085, 86188 ####[facility] [place] [address], [place] PCO2 33 mmHg Low 35-45 [facility] Comment on above: Performed By: #### 7 66, , 04349, 30313 ####[facility] [place] [address], [place] pH (Bld) 7.43 [pH] Normal 7.35-7.45 [facility] Comment on above: Performed By: #### 7 66, , 13708, 82255 ####[facility] [place] [address], [place] THB 11.3 g/dL Low 12.0-16.3 [facility] Comment on above: Performed By: #### 7 0067, 99542, 69895, 32859 ####[facility]3000 [facility] [place] [address], [place] BASIC METABOLIC PANELon - Calcium [Mass/Vol] 8.4 mg/dL Low 8.6-10.3 [facility] Comment on above: Order Comment: No: D o not add to previous draw Performed By: #### 1 69, 83639 ####[facility] [place] [address], [place] Chloride [Moles/Vol] 104 mmol/L Normal 98-107 [facility] Comment on above: Order Comment: No: D o not add to previous draw Performed By: #### 1 69, 18360 ####[facility] [facility] [place] [address], [place] CO2 [Moles/Vol] 24 mmol/L Normal 21-31 [facility] Comment on above: Order Comment: No: D o not add to previous draw Performed By: #### 1 69, 00225 ####[facility] [facility] [place] [address], [place] Creatinine [Mass/Vol] 1.03 mg/dL Normal 0.70-1.30 [facility] Comment on above: Order Comment: No: D o not add to previous draw Performed By: #### 1 69, 37467 ####[facility]3000 [facility] [place] [address], [place] GFR/1.73 sq M.predicted among blacks MDRD (S/P/Bld) [Vol rate/Area] mL/min/{1.73_m2} Normal >60 [facility] Comment on above: Order Comment: No: D o not add to previous draw Result Comment: Calc ulation may not be valid for patients over 70 years Performed By: #### 1 69, 82898 ####[facility] [facility] [place] [address], [place] GFR/1.73 sq M.predicted among non-blacks MDRD (S/P/Bld) [Vol rate/Area] mL/min/{1.73_m2} Normal >60 [facility] Comment on above: Order Comment: No: D o not add to previous draw Result Comment: Calc ulation may not be valid for patients over 70 years Performed By: #### 1 69, 45046 ####[facility] [place] [address], [place] Glucose [Mass/Vol] 176 mg/dL High 70-100 The [facility] Comment on above: Order Comment: No: D o not add to previous draw Performed By: #### 1 69, 06948 ####[facility] [facility] [place] [address], [place] Potassium [Moles/Vol] 3.8 mmol/L Normal 3.5-5.1 [facility] Comment on above: Order Comment: No: D o not add to previous draw Performed By: #### 1 69, 61977 ####[facility] [facility] [place] [address], [place] Sodium [Moles/Vol] 134 mmol/L Low 136-145 The [facility] Comment on above: Order Comment: No: D o not add to previous draw Performed By: #### 1 69, 59400 ####[facility] [place] [address], [place] Urea nitrogen [Mass/Vol] 21 mg/dL Normal 7-25 [facility] Comment on above: Order Comment: No: D o not add to previous draw Performed By: #### 1 69, 60420 ####[facility] [facility] [place] [address], [place] CALCIUM IONIZED CBGLon 10-27 IONIZED CALCIUM 1.07 mmol/L Low 1.13-1.32 The [facility] Comment on above: Performed By: #### 7 0067, 17562, 41350, 46947 ####[facility] CBC COMPLETE BLOOD COUNTon 0 10-27-2020 Erythrocyte distribution width (RBC) [Ratio] 15.0 % Normal 11.5-15.0 [facility] Comment on above: Order Comment: No: D o not add to previous draw Performed By: #### 5 0608 ####[facility] Hematocrit (Bld) [Volume fraction] 38.8 % Low 39.0-50.0 [facility] Comment on above: Order Comment: No: D o not add to previous draw Performed By: #### 5 0608 ####[facility]3000 [facility].[address] Hemoglobin (Bld) [Mass/Vol] 12.5 g/dL Low 13.0-17.0 [facility] Comment on above: Order Comment: No: D o not add to previous draw Performed By: #### 5 0608 ####[facility] MCH (RBC) [Entitic mass] 31.9 pg Normal 27.0-33.0 [facility] Comment on above: Order Comment: No: D o not add to previous draw Performed By: #### 5 0608 ####[facility]3000 [facility] [place] [address], [place] MCHC (RBC) [Mass/Vol] 32.2 g/dL Normal 32.0-35.0 [facility] Comment on above: Order Comment: No: D o not add to previous draw Performed By: #### 5 0608 ####[facility] [facility] [place] [address], [place] MCV (RBC) [Entitic vol] 99.0 fL High 82.0-98.0 [facility] Comment on above: Order Comment: No: D o not add to previous draw Performed By: #### 5 0608 ####[facility] [place] [address], [place] Nucleated RBC/100 WBC (Bld) [Ratio] 0 % Normal 0-0 [facility] Comment on above: Order Comment: No: D o not add to previous draw Performed By: #### 5 0608 ####[facility] [facility] [place] [address], [place] PLAT CNT 140 10*3/uL Low 150-400 [facility] Comment on above: Order Comment: No: D o not add to previous draw Performed By: #### 5 0608 ####[facility] [place] [address], [place] RBC (Bld) [#/Vol] 3.92 10*6/uL Low 4.20-5.70 [facility] Comment on above: Order Comment: No: D o not add to previous draw Performed By: #### 5 0608 ####[facility] [place] [address], [place] WBC (Bld) [#/Vol] 27.81 10*3/uL High 4.00-10.60 [facility] Comment on above: Order Comment: No: D o not add to previous draw Performed By: #### 5 0608 ####[facility] [facility] [place] [address], [place] LACTATE BLOODon 10-27-2020 Lactate [Moles/Vol] 0.8 mmol/L Normal 0.5-2.2 [facility] Comment on above: Order Comment: No: D o not add to previous draw Performed By: #### 1 0054 ####[facility] [place] [address], [place] LIPASE BLOODon 10-27-2020 LIPASE 7 Units/L Low 11-82 [facility] Comment on above: Order Comment: No: D o not add to previous draw Performed By: #### 3 6901, 85774, 93549 ####[facility] [place] [address], [place] LIVER BATTERYon 10-27-2020 Albumin [Mass/Vol] 3.6 g/dL Normal 3.5-5.7 [facility] Comment on above: Order Comment: No: D o not add to previous draw Performed By: #### 3 6901, 68340, 17332 ####[facility] [place] [address], [place] ALKALINE PHOSPH 54 IU/L Normal 34-104 [facility] Comment on above: Order Comment: No: D o not add to previous draw Performed By: #### 3 6901, 46197, 85790 ####[facility] [place] [address], [place] ALT [Catalytic activity/Vol] 38 U/L Normal 7-52 [facility] Comment on above: Order Comment: No: D o not add to previous draw Performed By: #### 3 6901, 86652, 98617 ####[facility] [place] [address], [place] AST [Catalytic activity/Vol] 28 U/L Normal 13-39 [facility] Comment on above: Order Comment: No: D o not add to previous draw Performed By: #### 3 6901, 05362, 12413 ####[facility] [place] [address], [place] Bilirubin [Mass/Vol] 1.3 mg/dL High 0.3-1.0 [facility] Comment on above: Order Comment: No: D o not add to previous draw Performed By: #### 3 6901, 89185, 90036 ####[facility] [place] [address], [place] Bilirubin.direct [Mass/Vol] 0.4 mg/dL High 0.0-0.2 [facility] Comment on above: Order Comment: No: D o not add to previous draw Performed By: #### 3 6901, 20198, 11551 ####[facility] [place] [address], [place] Protein [Mass/Vol] 5.5 g/dL Low 6.0-8.3 [facility] above: Order Comment: No: D o not add to previous draw Performed By: #### 3 6901, 64629, 71820 ####[facility] [place] [address], [place] MAGNESIUM BLOODon 10-27-2020 Magnesium [Mass/Vol] 1.7 mg/dL Low 1.9-2.7 [facility] Comment on above: Order Comment: No: D o not add to previous draw Performed By: #### 1 0070, 60979 ####[facility] [place] [address], [place] POC GLUCOSE LABon 10-27-2020 Glucose [Mass/Vol] 193 mg/dL High 70-100 The [facility] Comment on above: Performed By: #### 8 1089 ####[facility] [place] [address], [place] Glucose [Mass/Vol] 173 mg/dL High 70-100 The [facility] Comment on above: Performed By: #### 8 4983 ####[facility] [place] [address], [place] Glucose [Mass/Vol] 153 mg/dL High 70-100 The [facility] Comment on above: Performed By: #### 8 5418 ####[facility]3000 [facility] [place] [address], [place] Glucose [Mass/Vol] 186 mg/dL High 70-100 The [facility] Comment on above: Performed By: #### 8 5499 ####[facility] [facility] [place] [address], [place] Glucose [Mass/Vol] 183 mg/dL High 70-100 The [facility] Comment on above: Performed By: #### 8 5499 ####[facility] [facility] [place] [address], [place] PORTABLE CHEST 1 VIEWon 10-04 PORTABLE CHEST 1 VIEW Normal [facility] Comment on above: Order Comment: Check NG Tube Position POTASSIUM WHOLE BLOOD CBGLon 10-27-2020 Potassium [Moles/Vol] 3.2 mmol/L Low 3.4-5.2 [facility] Comment on above: Performed By: #### 7 0067, 29731, 65003, 77681 ####[facility] [facility], [place] [id number] [place] [address] PROTHROMBIN TIMEon INR Coag (PPP) [Relative time] 1.09 {INR} Normal 0.91-1.16 [facility] Comment on above: Order Comment: No: [...] OF ACTION, CLINICALEFFECTIVENESS, AND OPTIMAL THERAPEUTIC RANGE. [id number]. Performed By: #### 5 7307, 81527 ####[facility]3000 [facility].[address] PT Coag (PPP) [Time] 14.2 s Normal 12.3-14.8 [facility] Comment on above: Order Comment: No: D o not add to previous draw Result Comment: ALL RESULTS MUST BE INTERPRETED WITH RESPECT TO BLOOD DRAWING ARTIFACTOR DILUTION ERROR OF ANTICOAGULANT AT THE TIME OF SAMPLING. Performed By: #### 5 7307, 51274 ####[facility]3000 [facility].[address] SODIUM WHOLE BLOOD CBGLon Sodium [Moles/Vol] 133.0 mmol/L Low 136.0-146.0 [facility] Comment on above: Performed By: #### 7 0067, 34057, 65896, 31301 ####[facility]3000 [facility].[address] TROPONIN-Ion 10-27-2020 Troponin I.cardiac [Mass/Vol] 0.01 ng/mL Normal 0.00-0.04 [facility] Comment on above: Order Comment: No: D o not add to previous draw Result Comment: REFE RENCE RANGES: 0.00 - 0.04 ng/ml NORMAL 0.05 - 0.50 ng/ml INDETERMINATE > 0.50 ng/ml CONSISTENT WITH AN M.I. Performed By: #### 3 2801, 47279, 64179 ####[facility]3000 [facility].[address] TYPE AND SCREENon 10-27-2020 ABO INTERPRETATION O Normal [facility] Comment on above: Performed By: #### 6 2586 ####[facility] [facility] [place] [address], [place] RH INTERPRETATION Positive Normal The [facility] Comment on above: Performed By: #### 6 2586 ####[facility] [facility] [place] [address], [place] Vital Signs Date Time Vital Sign Value Performing Clinician [facility] 07-01-2024 14:18-0400 Body height 162.6 cm Leander Chanel ANODIZING LINE OPERATOR Work Phone: [facility] 07-01-2024 14:18-0400 Body mass index (BMI) [Ratio] 27.81 kg/m2 Leander Chanel ANODIZING LINE OPERATOR Work Phone: [facility] 07-01-2024 14:18-0400 Body temperature 97.5 [degF] Leander Chanel ANODIZING LINE OPERATOR Work Phone: [facility] 07-01-2024 14:18-0400 Body weight 73.48 kg Leander Chanel ANODIZING LINE OPERATOR Work Phone: [facility] 07-01-2024 14:18-0400 Diastolic blood pressure 68 mm[Hg] Leander Chanel ANODIZING LINE OPERATOR Work Phone: [facility] 07-01-2024 14:18-0400 Heart rate 83 /min Leander Chanel ANODIZING LINE OPERATOR Work Phone: [facility] 07-01-2024 14:18-0400 Respiratory rate 16 /min Leander Chanel ANODIZING LINE OPERATOR Work Phone: [facility] 07-01-2024 14:18-0400 SaO2% (BldA) [Mass fraction] 96 % Leander Chanel ANODIZING LINE OPERATOR Work Phone: [facility] 07-01-2024 14:18-0400 Systolic blood pressure 122 mm[Hg] Leander Chanel ANODIZING LINE OPERATOR Work Phone: [facility] 08-08-2023 14:46-0500 Body temperature 97.59 [degF] Frederick Zapata MD Work Phone: [facility] 08-08-2023 14:46-0500 Body weight 76.3 kg Frederick Zapata MD Work Phone: [facility] 08-08-2023 14:46-0500 Diastolic blood pressure 57 mm[Hg] Frederick Zapata MD Work Phone: [facility] 08-08-2023 14:46-0500 Heart rate 77 /min Frederick Zapata MD Work Phone: [facility] 08-08-2023 14:46-0500 Respiratory rate 18 /min Frederick Zapata MD Work Phone: [facility] 08-08-2023 14:46-0500 SaO2% (BldA) [Mass fraction] 97 % Frederick Zapata MD Work Phone: [facility] 08-08-2023 14:46-0500 Systolic blood pressure 127 mm[Hg] Frederick Zapata MD Work Phone: [facility] 06-14-2023 17:35-0400 Body height 162.56 cm Annmarie Mcgee Other [facility] Other 06-14-2023 17:35-0400 Body mass index (BMI) [Ratio] 29.61 kg/m2 Annmarie Mcgee Other [facility] Other 06-14-2023 17:35-0400 Body temperature 98.2 [degF] Annmarie Mcgee Other [facility] Other 06-14-2023 17:35-0400 Body weight 78.25 kg Annmarie Mcgee Other [facility] Other 06-14-2023 17:35-0400 Diastolic blood pressure 54 mm[Hg] Annmarie Arely Other [facility] Other 06-14-2023 17:35-0400 Respiratory rate 18 /min Annmarie Arely Other [facility] Other 06-14-2023 17:35-0400 SaO2% (BldA) [Mass fraction] 96 % Annmarie Arely Other [facility] Other 06-14-2023 17:35-0400 Systolic blood pressure 111 mm[Hg] Annmarie Arely Other [facility] Other 09-17-2022 14:35-0500 Body height 162.56 cm Annmarie Arely Other [facility] Other 09-17-2022 14:35-0500 Body mass index (BMI) [Ratio] 29.18 kg/m2 Annmarie Arely Other [facility] Other 09-17-2022 14:35-0500 Body temperature 98.1 [degF] Annmarie Arely Other [facility] Other 09-17-2022 14:35-0500 Body weight 77.11 kg Annmarie Arely Other [facility] Other 09-17-2022 14:35-0500 Respiratory rate 18 /min Annmarie Arely Other [facility] Other 09-17-2022 14:35-0500 SaO2% (BldA) [Mass fraction] 98 % Annmarie Arely Other [facility] Other 01-01-2022 13:47-0400 Body height 163.8 cm Frederick Zapata MD Work Phone: [facility] 01-01-2022 13:47-0400 Body temperature 97.9 [degF] Frederick Zapata MD Work Phone: [facility] 01-01-2022 13:47-0400 Body weight 73.39 kg Frederick Zapata MD Work Phone: [facility] 01-01-2022 13:47-0400 Diastolic blood pressure 59 mm[Hg] Frederick Zapata MD Work Phone: [facility] 01-01-2022 13:47-0400 Heart rate 66 /min Frederick Zapata MD Work Phone: [facility] 01-01-2022 13:47-0400 Respiratory rate 16 /min Frederick Zapata MD Work Phone: [facility] 01-01-2022 13:47-0400 SaO2% (BldA) [Mass fraction] 97 % Frederick Zapata MD Work Phone: [facility] 01-01-2022 13:47-0400 Systolic blood pressure 120 mm[Hg] Frederick Zapata MD Work Phone: [facility] Encounters Encounter Date Encounter Type Care Provider Facility Start: 07-22-2024 End: 07-22-2024 Refill Leander Chanel ANODIZING LINE OPERATOR Work Phone: [facility] Comment on above: Type 2 diabetes talha itus without complication, without long- term current use of insulin ([facility] Start: 07-08-2024 End: 07-08-2024 Orders Only Leander Chanel ANODIZING LINE OPERATOR Work Phone: [facility] Comment on above: 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 ([facility]) Start: 07-01-2024 End: 07-01-2024 Office outpatient visit 15 minutes Leander Chanel ANODIZING LINE OPERATOR Work Phone: [facility] Comment on above: 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, without long-term current use of insulin ([facility]/HCC) (Primary Dx); 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; 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); Essential hypertension; Atherosclerosis of aorta ([facility]/HCC) Start: 07-01-2024 End: 07-01-2024 ambulatory LEANDER CHANEL Not Available Start: 07-01-2024 End: 07-01-2024 Bamboo flowsheet Leander Chanel ANODIZING LINE OPERATOR Work Phone: [facility] Start: 07-01-2024 End: 07-01-2024 Bamboo flowsheet Leander Chanel ANODIZING LINE OPERATOR Work Phone: [facility] Start: 06-23-2024 End: 06-23-2024 Orders Only Leander Chanel ANODIZING LINE OPERATOR Work Phone: [facility] Start: 06-22-2024 End: 06-23-2024 Refill Leander Chanel ANODIZING LINE OPERATOR Work Phone: [facility] Comment on above: 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 ([facility]/HCC) Start: 04-01-2024 End: 04-01-2024 ambulatory RICHARDS FAWWAD Not Available Start: 02-26-2024 End: 02-26-2024 ambulatory RICHARDS FAWWAD Not Available Start: 12-25-2023 End: 12-25-2023 ambulatory RICHARDS FAWWAD Not Available Start: 11-12-2023 End: 11-12-2023 ambulatory RICHARDS FAWWAD Not Available Start: 11-05-2023 End: 11-05-2023 ambulatory RICHARDS FAWWAD Not Available Start: 08-20-2023 Patient encounter procedure Leander Chanel ANODIZING LINE OPERATOR Work Phone: [facility] Start: 08-20-2023 End: 08-20-2023 ambulatory SHAIKH HOLLY Not Available Start: 08-08-2023 End: 08-08-2023 ambulatory RODRÍGUEZ WHEAT II Facility:[facility] Start: 08-08-2023 End: 08-08-2023 Office outpatient visit 25 minutes Frederick Zapata MD Work Phone: Hematology/Oncology Comment on above: Chronic lymphocytic leukemia (HCC) (Primary Dx) Start: 08-05-2023 End: 08-05-2023 ambulatory SHAIKH HOLLY Not Available Start: 06-14-2023 (URG) Urgent Care Visit Annmarie booker [facility] Start: 06-14-2023 End: 06-14-2023 ambulatory Annmarie Mcgee Other [facility] Other Start: 12-03-2022 Orders Only Joshua velez PA-C Work Phone: Appointment Center Comment on above: Pain (Primary Dx) Start: 09-17-2022 End: 09-17-2022 ambulatory Annmarie Arely Other [facility] Other Start: 09-17-2022 Office outpatient ne w 20 minutes Annmarie Mcgee [facility] Start: 07-31-2022 End: 08-01-2022 ambulatory LINTING MACHINE OPERATOR ARLENE CRAIGHADAN Facility:[facility] Start: 07-23-2022 End: 07-24-2022 ambulatory LINTING MACHINE OPERATOR ARLENE AICHHOLZ Facility:[facility] Start: 05-08-2022 End: 05-08-2022 ambulatory Shaikh Holly Facility:[facility] Start: 05-08-2022 End: 05-08-2022 Patient encounter procedure MD Shaikh Barrera Work Phone: [facility] [address] [place] Start: 01-03-2022 End: 01-04-2022 ambulatory SHAIKH Carlotta BARRERA Facility:[facility] Start: 01-01-2022 End: 01-01-2022 ambulatory Frederick Zapata MD Work Phone: Hematology/Oncology Comment on above: Chronic lymphocytic leukemia (HCC) (Primary Dx) Start: 01-01-2022 End: 01-01-2022 Patient encounter procedure Frederick Zapata MD Work Phone: [facility] Start: 08-11-2021 End: 08-31-2021 Evaluation and management of inpatient SHAIKH NAM Facility:[facility] Start: 10-27-2020 End: 11-09-2020 Evaluation and management of inpatient REBECCA BRENTON Facility:[facility] Procedures Date Procedure Procedure Detail Performing Clinician Start: 08-05-2023 End: 08-20-2023 H/O: colostomy Colostomy status Leander Chanel NP Work Phone: Start: 07-23-2022 PSA screening LINTING MACHINE OPERATOR ARLENE MARIN Comment on above: Performed By: #### P [facility] #### [facility] [address] [place] [address] Dr. Estrada Carpenter Start: 05-08-2022 Echography of [...] Approach ZAHRAA DARBY Start: 10-27-2020 Antibody screen REBECCALISETTE FARRIS Comment on above: Performed By: #### 6 [id number] ####[address] Plan of Treatment Date Care Activity Detail Author Start: 12-14-2032 Urine microalbumin profile DTaP,Tdap,Td Vaccine (2 - Td or Tdap) [facility] Start: 08-08-2026 Diabetes Screening Diabetes Screenin g [facility] Start: 03-23-2026 Glaucoma screening Diabetes: R etinopathy Screening [facility] Start: 03-26-2025 Urine screening for protein Diabetes: Urine Protein Screening [facility] Start: 01-01-2025 DIABETES SCREEN DIABETES SCREEN [facility] Start: 10-01-2024 End: 10-01-2024 Patient encounter procedure 10/01/2024 3:00 PM EST Office Visit [facility] [address] [place] [address] Leander Chanel, KHUSHI [address] [place] [address] [facility] Start: 09-26-2024 Hemoglobin A1c measurement Diabetes: Hemoglobin A1C [facility] Start: 08-20-2024 Medicare Annual Well ness (AWV) Medicare Annual Wellness (AWV) [facility] Start: 08-20-2024 End: 08-20-2024 Patient encounter procedure 08/20/2024 1:30 PM EST Office Visit [facility] [address] [place] [address] Leander Chanel NP [address] [place] [address] [facility] Start: 08-18-2024 End: 08-18-2024 Patient encounter procedure 08/18/2024 1:30 PM EST Office Visit [facility] [address] [place] [address] Leander Chanel NP [address] [place] [address] [facility] Start: 07-08-2024 End: 07-08-2024 Clinical Support 07/08/2024 2:30 PM EST Clinical Support [facility] [address] [place] [address] [facility] Start: 07-01-2024 End: 07-01-2024 Patient encounter procedure [facility] Comment on above: Arrived Start: 07-01-2024 End: 07-01-2025 Hemoglobin A1c/Hemoglobin.total in Blood Hemoglobin A1c Lab Routine Type 2 diabetes mellitus with diabetic polyneuropathy, without long-term current use of insulin ([facility]) Expected: 07/01/2024 (Approximate), Expires: 07/01/2025 [facility] Work Phone: Comment on above: Expected: 07/01/2024 (Approximate), Expires: 07/01/2025 Start: 05-03-2024 Influenza vaccination Influenza Vacc ine (#1) [facility] Start: 05-03-2023 Covid-19 Vaccine () Covid-19 Vaccine () [facility] Start: 05-03-2023 Influenza vaccination INFLUENZ A (Season Ended) [facility] Start: 01-01-2023 End: 01-01-2023 CBC W Auto Differential panel - Blood CBC + DIFF Lab Routine Chronic lymphocytic leukemia (HCC) Expected: 01/01/2023 (Approximate), Expires: 01/01/2023 [facility] Work Phone: Comment on above: Expected: 01/01/2023 (Approximate), Expires: 01/01/2023 Start: 01-01-2023 End: 01-01-2023 Comprehensive metabolic 2000 panel - Serum or Plasma COMP METABOLIC PANEL Lab Routine Chronic lymphocytic leukemia (HCC) Expected: 01/01/2023 (Approximate), Expires: 01/01/2023 [facility] Work Phone: Comment on above: Expected: 01/01/2023 (Approximate), Expires: 01/01/2023 Start: 01-01-2023 End: 01-01-2023 Lactate dehydrogenase [Enzymatic activity/volume] in Serum or Plasma LD LACTATE DEHYDRO Lab Routine Chronic lymphocytic leukemia (HCC) Expected: 01/01/2023 (Approximate), Expires: 01/01/2023 [facility] Work Phone: Comment on above: Expected: 01/01/2023 (Approximate), Expires: 01/01/2023 Start: 09-02-2022 ADVANCE DIRECTIVE DISCUSSION ADVANCE DIRECTIVE DISCUSSION [facility] Start: 09-02-2022 DEPRESSION ASSESSMENT DEPRESSION ASS ESSMENT [facility] Start: 12-12-2021 COVID-19 VACCINE (4 - Booster for Pfizer series) COVID-19 VACCINE (4 - Booster for Pfizer series) [facility] Start: 11-08-2021 COVID-19 VACCINE (4 - Booster for Pfizer series) COVID-19 VACCINE (4 - Booster for Pfizer series) [facility] Start: 09-02-2021 ADVANCE DIRECTIVE DISCUSSION ADVANCE DIRECTIVE DISCUSSION [facility] Start: 1998 RSV Vaccine (1 - 1-d ose 60+ series) RSV Vaccine (1 - 1-dose 60+ series) [facility] Start: 02-05-1988 SHINGRIX VACCINE (1 of 2) SHINGRIX VACCINE (1 of 2) [facility] Start: 1957 SHINGRIX VACCINE (1 of 2) SHINGRIX VACCINE (1 of 2) [facility] Start: 1957 Urine microalbumin profile DTAP,TDAP,TD (1 - Tdap) [facility] End: 08-07-2024 CBC W Auto Differential panel - Blood CBC + DIFF Lab Routine Chronic lymphocytic leukemia (HCC) Every 6 months for 3 Occurrences starting 08/08/2023 until 08/07/2024, 1 completed [facility] Work Phone: Comment on above: Every 6 months for 3 Occurrences starting 08/08/2023 until 08/07/2024, 1 completed CBC W Auto Different ial panel - Blood CBC + DIFF Lab Routine Chronic lymphocytic leukemia (HCC) 08/08/2023 3:21 PM EST [facility] Work Phone: End: 08-07-2024 Comprehensive metabolic 2000 panel - Serum or Plasma COMP METABOLIC PANEL Lab Routine Chronic lymphocytic leukemia (HCC) Every 6 months for 3 Occurrences starting 08/08/2023 until 08/07/2024, 1 completed [facility] Work Phone: Comment on above: Every 6 months for 3 Occurrences starting 08/08/2023 until 08/07/2024, 1 completed End: 08-07-2024 Lactate dehydrogenase [Enzymatic activity/volume] in Serum or Plasma LD LACTATE DEHYDRO Lab Routine Chronic lymphocytic leukemia (HCC) Every 6 months for 3 Occurrences starting 08/08/2023 until 08/07/2024, 1 completed [facility] Work Phone: Comment on above: Every 6 months for 3 Occurrences starting 08/08/2023 until 08/07/2024, 1 completed End: 08-07-2024 Urate [Mass/volume] in Serum or Plasma URIC ACID BLOOD Lab Routine Chronic lymphocytic leukemia (HCC) Every 6 months for 3 Occurrences starting 08/08/2023 until 08/07/2024, 1 completed [facility] Work Phone: Comment on above: Every 6 months for 3 Occurrences starting 08/08/2023 until 08/07/2024, 1 completed End: 01-02-2024 XR HAND GENERAL 3V PA/LAT/OBL LEFT XR HAND GENERAL 3V PA/LAT/OBL LEFT Radiology Routine Pain 1 Occurrences starting 12/03/2022 until 01/02/2024 [facility] Work Phone: Comment on above: 1 Occurrences starti ng 12/03/2022 until 01/02/2024 End: 01-02-2024 XR HAND GENERAL 3V PA/LAT/OBL RIGHT XR HAND GENERAL 3V PA/LAT/OBL RIGHT Radiology Routine Pain 1 Occurrences starting 12/03/2022 until 01/02/2024 [facility] Work Phone: Comment on above: 1 Occurrences starti ng 12/03/2022 until 01/02/2024 [facility] Immunizations Immunization Date Immunization Notes Care Provider [facility] 06-23-2024 influenza virus vacc ine, unspecified formulation Leander Chanel ANODIZING LINE OPERATOR Work Phone: [facility] 07-03-2023 Influenza, High-dose Seasonal, Quadrivalent, Preservative Free Leander Chanel ANODIZING LINE OPERATOR Work Phone: [facility] 07-03-2023 influenza virus vacc ine, unspecified formulation Leander Chanel ANODIZING LINE OPERATOR Work Phone: [facility] 12-26-2022 tuberculin skin test ; purified protein derivative solution, intradermal Leander Chanel ANODIZING LINE OPERATOR Work Phone: [facility] 12-19-2022 tuberculin skin test ; purified protein derivative solution, intradermal Leander Chanel ANODIZING LINE OPERATOR Work Phone: [facility] 12-14-2022 tetanus toxoid, redu kayley diphtheria toxoid, and acellular pertussis vaccine, adsorbed Leander Chanel ANODIZING LINE OPERATOR Work Phone: [facility] 07-25-2022 Influenza, High-dose Seasonal, Quadrivalent, Preservative Free Leander Chanel ANODIZING LINE OPERATOR Work Phone: [facility] 05-18-2021 Influenza, High-dose Seasonal, Quadrivalent, Preservative Free Leander Chanel ANODIZING LINE OPERATOR Work Phone: [facility] 09-22-2020 COVID-19 vaccine, ag e 12+ yr (PFIZER-BIONTECH - PURPLE TOP) Frederick Zapata MD Work Phone: [facility] 09-01-2020 COVID-19 vaccine, ag e 12+ yr (PFIZER-BIONTECH - PURPLE TOP) Frederick Zapata MD Work Phone: [facility] 05-14-2020 influenza, injectabl e, quadrivalent, preservative free Frederick Zapata MD Work Phone: [facility] 06-29-2019 Seasonal trivalent influenza vaccine, adjuvanted, preservative free Frederick Zapata MD Work Phone: [facility] 06-18-2018 influenza, high dose seasonal, preservative-free Frederick Zapata MD Work Phone: [facility] 06-03-2017 influenza, injectabl e, quadrivalent, contains preservative Frederick Zapata MD Work Phone: [facility] 04-27-2017 influenza, high dose seasonal, preservative-free Frederick Zapata MD Work Phone: [facility] 04-27-2017 pneumococcal polysaccharide vaccine, 23 valjonathan Zapata MD Work Phone: [facility] 10-23-2016 pneumococcal polysaccharide vaccine, 23 valjonathan Zapata MD Work Phone: [facility] 06-22-2015 pneumococcal conjuga te vaccine, 13 valjonathan Zapata MD Work Phone: [facility] 06-21-2015 seasonal influenza, intradermal, preservative free Leander Chanel ANODIZING LINE OPERATOR Work Phone: [facility] 06-05-2013 influenza virus vacc ine, whole virus Frederick Zapata MD Work Phone: [facility]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 Surgical History Gallbladder Surgical History Kidney Stones Surgical History Appendix Surgical History Hernia Repair Surgical History Tonsils Surgical History Left Carpal/Cubital/[place] Releas Surgical History Stoma Reversal Hospitalization History See above [facility] Other History general Narrative - Reported* Type [...] AND BOTH LEGS Hospitalization History See above [facility] Other Reason for referral (narrative)* Diagnostic Procedure Only (Routine) - Authorized Specialty Diagnoses / Procedures Referred By Contac t Referred To Contact XR IMAGING Diagnoses Pain Procedures XR HAND GENERAL 3V PA/LAT/OBL RIGHT RADEX HAND MINIMUM 3 VIEWS Joshua Su PA-C [address] [place] [address] Xr Imaging Referral ID Status Reason Start Date Expiration Date Visits Requested Visits Authorized [id number] Authorized Auto-Generat ed Referral 12/03/2022 01/02/2024 1 1 * Diagnostic Procedure Only (Routine) - Pending Review Specialty Diagnoses / Procedures Referred By Yuan hollingsworth Referred To Contact XR IMAGING Diagnoses Pain Procedures XR HAND GENERAL 3V PA/LAT/OBL LEFT RADEX HAND MINIMUM 3 VIEWS Joshua Su PA-C [address] [place] [address] Xr Imaging Referral ID Status Reason Start Date Expiration Date Visits Requested Visits Authorized [id number] Pending Review Auto-Generat ed Referral 12/03/2022 01/02/2024 1 1 [facility] Summary Purpose Family History No Family History Records FoundNo Family History Records FoundNo Family History Records FoundNo Family History Records FoundNo Family History Records Found Advance Directives Advance Directive Response Recorded Date/ Time Advance Directives No February 25 3:54pm Chief Complaint and Reason for Visit Chief Complaint N50.82 Additional Source Comments (unrecognized sect ion and content) No Status Records FoundNo Status Records FoundNo Status Records FoundNo Status Records FoundNo Status Records Found INFORMATION SOURCE (unrecogn ized section and content) DATE CREATED AUTHOR 10/12/2021 [facility] DATE CREATED AUTHOR AUTHOR'S ORGANIZ ATION 06/02/2022 [facility] DATE CREATED AUTHOR AUTHOR'S ORGANIZ ATION 08/04/2022 [facility] DATE CREATED AUTHOR AUTHOR'S ORGANIZ ATION 08/11/2023 [facility] DATE CREATED AUTHOR AUTHOR'S ORGANIZ ATION 07/10/2024 [facility] EPIC Source Comments (unrecognize d section and content) In the event this informatio n is protected by the Federal Confidentiality of Alcohol and Drug Abuse Patient Records regulations: The Federal rules restrict any use of the information to criminally investigate or prosecute any alcohol or drug abuse patient.[facility] the event this information is protected by the Federal Confidentiality of Alcohol and Drug Abuse Patient Records regulations: The Federal rules restrict any use of the information to criminally investigate or prosecute any alcohol or drug abuse patient.[facility] the event this information is protected by the Federal Confidentiality of Alcohol and Drug Abuse Patient Records regulations: The Federal rules restrict any use of the information to criminally investigate or prosecute any alcohol or drug abuse patient.[facility] Reason for Visit (unrecogniz ed section and content) Reason Comments Leukemia Reason Onset Date Comments Med Refill 06/22/2024 Reason Comments Diabetes Reason Onset Date Comments Med Refill 07/22/2024 Care Teams (unrecognized sec tion and content) Clinical Administrator Relationship Specialty Start Date End Date Rodríguez Wheat II PCP - General Internal Medicine 05/06/13 Team Status: Inactive Member Role Status Dates Shaikh Holly MD Primary Care Provider, Attending Pr ovider Active Team Status: Active Member Role Status Dates Shaikh Holly MD Primary Care Provider Active Clinical Administrator Relationship Specialty Start Date End Date Rodríguez Wheat II PCP - General Internal Medicine 05/06/13 Clinical Administrator Relationship Specialty Start Date End Date Rodríguez Wheat II, MD PCP - General Internal Medicine 05/06/13 Clinical Administrator Relationship Specialty Start Date End Date Shaikh Barrera MD [address] [place] [phone] PCP - Devoted 09/02/23 Low Beyer MD [address] [place] [phone] PCP - General Family Medicine 04/07/24 Leander Chanel NP [address] [place] [phone] Nurse Practitioner Family Medicine 04/07/24 Brandi Willett LPN Licensed Practical Nurse Family Medicine 05/15/24 Clinical Administrator Relationship Specialty Start Date End Date Shaikh Barrera MD [address] [place] [phone] PCP - Devoted 09/02/23 Low Beyer MD [address] [place] [phone] PCP - General Family Medicine 04/07/24 Leander Chanel NP [address] [place] [phone] Nurse Practitioner Family Medicine 04/07/24 Brandi Willett LPN Licensed Practical Nurse Family Medicine 05/15/24 Clinical Administrator Relationship Specialty Start Date End Date Shaikh Barrera MD [address] [place] [address] PCP - Devoted 09/02/23 Low Beyer MD [address] [place] [address] PCP - General Family Medicine 04/07/24 Leander Chanel NP [address] [place] [address] Nurse Practitioner Family Medicine 04/07/24 Brandi Willett LPN Licensed Practical Nurse Family Medicine 05/15/24 Clinical Administrator Relationship Specialty Start Date End Date Shaikh Barrera MD [address] [place] [address] PCP - Devoted 09/02/23 Low Beyer MD [address] [place] [address] PCP - General Family Medicine 04/07/24 Leander Chanel, KHUSHI [address] [place] [address] Nurse Practitioner Family Medicine 04/07/24 Brandi Willett LPN Licensed Practical Nurse Family Medicine 05/15/24 Clinical Administrator Relationship Specialty Start Date End Date Shaikh Barrera MD [address] [place] [phone] PCP - Devoted 09/02/23 09/01/24 Low Beyer MD [address] [place] [phone] PCP - General Family Medicine 04/07/24 Leander Chanel NP [address] [place] [phone] Nurse Practitioner Family Medicine 04/07/24 Rosa Nguyen MA Family Medicine 07/06/24 Clinical Administrator Relationship Specialty Start Date End Date Shaikh Barrera MD [address] [place] [phone] PCP - Devoted 09/02/23 09/01/24 Low Beyer MD [address] [place] [phone] PCP - General Family Medicine 04/07/24 Leander Chanel NP [address] [place] [address] Nurse Practitioner Family Medicine 04/07/24 Rosa Nguyen MA [facility] 07/06/24 Goals (unrecognized section and content) Goals may [...] BE BASED ON THE PRIMARY CLINICAL RECORDS. [facility]. provides no warranty or guarantee of the accuracy or completeness of information in this document.
== END 2024-07-29 15:57 | disposition home or self-care (01) ==
LOC: MRI 15:56
PROVIDERS: Visit Provider Nurse Practitioner
DX: M54.12 Radiculopathy, cervical region (principal); M50.322 Other cervical disc degeneration at C5-C6 level; M50.30 Other cervical disc degeneration, unspecified cervical region
CPT/HCPCS: 72141

== ENCOUNTER 2024-08-13 12:48 | Outpatient (OUT) | payer OTHER, SELFPAY ==
--- NOTE | 2024-08-13 13:00 | P.CN_ITS ---
Consult Note: HPI Data of Consult Patient: known to practice within the last 3 years Requesting Physician: Samia Joyner NP Primary Care Provider: LEANDER MALLORY Consult Narrative Reason for consult: neck pain Narrative: Eitan Hurtado a pleasant 84 year old male presents for evaluation and management of neck pain and LUE numbness tingling and weakness. Longstanding hx of neck pain greater than 1 year, pt has attended 6 weeks of formal PT without benefit earlier this year and has continued to engage in HEP as tolerated greater than 6 weeks without benefit. over the last 12 months has noticed increase in radicular pain and weakness of LUE. Has trialed tylenol without benefit, balcofen 5mg TID PRN, gabapentin 300mg BID which makes him agitated and does not help with his pain per pt. Pt denies falls. Recently underwent cervical MRI with results below cc:: CC: Samia Joyner NP Review of Systems ROS Status of ROS 10 or more systems reviewed and unremark able except as noted in history and below Musculoskeletal Reports: neck pain and extremity pain PFSH PFSH Social History Smoking status: Never smoker Meds Home Medications and Allergies Home Medications ?Medication ?Instructions ?Recorded ?Confirmed ?Type gabapentin 300 mg capsule 300 mg PO Q12H 10/24/23 02/21/24 History methotrexate sodium 2.5 mg tablet 2.5 mg PO .weekly 10/24/23 02/21/24 History nirmatrelvir 300 mg (150 mg See Rx Instructions PO .COMPLEX 10/24/23 Rx x2)-ritonavir 100 mg tablet,dose #30 ea pack (Paxlovid) sitagliptin phosphate 100 mg 100 mg PO DAILY 10/24/23 02/21/24 History tablet (Januvia) baclofen 5 mg tablet 5 mg PO TID 12/03/23 02/21/24 History glipizide 10 mg tablet 10 mg PO DAILY 12/03/23 02/21/24 History multivitamin-ferrous 1 tab PO DAILY 12/03/23 02/21/24 History fumarate-folic acid 18 mg-400 mcg tablet (Centrum Complete) simvastatin 40 mg tablet 40 mg PO DAILY 12/03/23 02/21/24 History folic acid 1 mg tablet 1 mg PO DAILY 02/21/24 02/21/24 History melatonin 10 mg capsule 10 mg PO DAILY 02/21/24 02/21/24 History methotrexate sodium 2.5 mg tablet 2.5 mg PO QWEEK 02/21/24 02/21/24 History Allergies Allergy/AdvReac Type Severity Reaction Status Date / Time codeine AdvReac Intermediate Verified 02/21/24 17:53 morphine AdvReac Intermediate Verified 02/21/24 17:53 Exam Constitutional Documenting provider has reviewed patient's vital signs: yes Common normals: no apparent distress, oriented x3, healthy appearing, alert and well nourished General appearance: cooperative [facility] Common normals: normocephalic, hearing grossly normal bilaterally and moist oral mucous membranes Head and scalp: normocephalic Eye Common normals: PERRL Pupil: PERRL Neck & C-Spine Common normals: full ROM General: normal visual inspection Cervical spine: cervical ROM abnormal, pain with cervical ROM, cervical spine tenderness, paracervical muscle tenderness and paracervical muscle spasm Other: positive spurlings decreased sensation to left C5,6,7 strength 4/5 in BUE pain over C2-5 facet joints Chest Common normals: inspection of chest normal Respiratory Common normals: normal respiratory effort, no retractions and no use of accessory muscles Neuro Common normals: oriented x3, CN's II-XII intact bilaterally, moves all extremities, no focal motor deficits, no sensory deficits noted and deep tendon reflexes 2+ bilaterally Sensorium/orientation: alert Motor exam: strength 5/5 throughout and no movement abnormalities noted Psych Common normals: mental status grossly normal, thought process normal, cooperative, affect normal, speech normal and activity/motor behavior normal Speech: normal speech Thought process: normal thought process Results Imaging cervical mri: Attestation: I have reviewed the pertinent imaging results. Radiologist's impression: C2-C3: Early degenerative disc disease is present without focal protrusion or neural impingement. C3-C4: Moderate foramen narrowing bilaterally without significant disc bulging, disc height reduction or central canal narrowing. Bilateral uncovertebral joint spurring and moderate right, mild left, degenerative facet arthropathy. C4-C5: Mild foramen narrowing bilaterally. No significant disc bulging, disc height reduction, or central canal narrowing. Moderate right, mild left degenerative facet arthropathy. C5-C6: Marked central canal narrowing. Mild-moderate foramen narrowing bilaterally. Mild diffuse disc bulging without disc height reduction. Moderate right, mild left degenerative facet arthropathy. C6-C7: Mild foramen narrowing bilaterally without significant disc bulging, disc height reduction, or central canal narrowing. Mild degenerative facet arthropathy bilaterally. C7-T1:. Early degenerative disc disease is present without focal protrusion or neural impingement. Additional Findings Additional findings: If on a controlled substance or opioids, I have checked an [place] report on this patient and there are no aberrancies noted in the prescribing history.??If on a controlled substance or opioid a drug screen was completed and reviewed within the last year, and if there has not been a drug screen completed we ordered one today to monitor higher risk, state monitored pain medication use. As part of providing excellent, safe, comprehensive care, the following was completed at our patient's visit: 1. A medication reconciliation and review to ensure accurate knowledge of current/active medications, including asking our patients to inform us about any [id number] medications or herbal remedies/nutritional supplements/alternative remedies. 2. A review to specifically ensure our patients have had annual screening for screening for depression, screening for tobacco use, and screening for unhealthy alcohol use. For concerning screenings had a discussion with the patient, provided patient education, and recommended follow-up with primary care provider when appropriate. If patient noted with a risk of falling, they received education on strength, gait, and balance training to prevent future risk of falling. Assessment and Plan Assessment and Plan (1) Cervical spondylosis: (2) Cervical radiculopathy: (3) Degenerative disc disease, cervical: Plan cervical MRI reviewed with pt C5-6 RODO under fluoroscopy, risks vs benefits reviewed. pt having an a1c today, will proceed with injection if less than 8% declining medications at this time f/u 2 weeks after RODO, consider MBBs working towards RFA
== END 2024-08-13 12:49 | disposition home or self-care (01) ==
LOC: PM 12:50
PROVIDERS: Visit Provider Nurse Practitioner
DX: M47.812 Spondylosis without myelopathy or radiculopathy, cervical region (principal); M54.12 Radiculopathy, cervical region; M50.30 Other cervical disc degeneration, unspecified cervical region
CPT/HCPCS: G0463

== ENCOUNTER 2024-12-11 14:01 | Outpatient (OUT) | payer MEDICARE, SELFPAY ==
--- NOTE | 2024-12-11 14:00 | CA_ITS ---
Patient Name: RISHI DE LEON MR#: [id number] : 1940 Exam Date: 12/11/2024 Ordering Doctor: SUZANNE Rojas CNP ECHOCARDIOGRAM REPORT PROCEDURE: CA ECHO DOPPLER COMPLETE INDICATIONS: Dizziness, new onset murmur, hypertension, diabetes COMPARISON: None. DESCRIPTION: COMPLETE ECHOCARDIOGRAM Real-time transthoracic echocardiography with 2D, M-mode, spectral and color flow Doppler performed. QUALITY: Technical quality was good. LEFT VENTRICLE: Normal chamber size. Normal left ventricular wall thickness. Normal systolic function. LV EF: Normal left ventricular ejection fraction, (>55%). DIASTOLIC: Diastolic function is indeterminate. ATRIAL SEPTUM: Visually appears intact. LEFT ATRIUM: Moderate dilatation. RIGHT ATRIUM: Mild dilatation. RIGHT VENTRICLE: Normal chamber size. Normal right ventricular systolic function. TRICUSPID VALVE: Normal mobility and thickness. No stenosis with trivial regurgitation. MITRAL VALVE: Anterior and posterior mitral valve leaflet prolapse. Mild mitral annular calcification. At least moderate mitral regurgitation. AORTIC VALVE: Normal trileaflet appearance. No visible sclerosis. Normal leaflet mobility. No evidence of aortic valve stenosis. Trivial aortic regurgitation. AORTIC ROOT: Normal diameter and appearance, measuring 3.6 cm. PULMONIC VALVE: Normal thickness and mobility. No stenosis. No regurgitation. PERICARDIUM: No evidence of pericardial effusion. IVC: Collapses with inspirations. IVC is normal in size. PLEURA: CONCLUSION: 1. Normal left ventricular size and systolic function. Estimated LVEF is 60-65%. 2. Normal right ventricular size and systolic function. 3. Mild to moderate biatrial dilatation. 4. Bileaflet mitral valve prolapse with at least moderate regurgitation. 5. Unable to assess right-sided pressures due to lack of measurable tricuspid regurgitation. 6. A transesophageal echocardiogram is recommended for better assessment of the mitral regurgitation. Adult Echocardiography Procedure Report Left Ventricle LVEDD (3.7 - 5.6 cm): 5.38 cm LVESD (2.2 - 4.0 cm): 4.05 cm LVIVS thickness (0.6 - 1.2 cm): 1.01 cm LVPW thickness (0.5 - 1.0 cm): 0.96 cm e': 0.08 m/s E - e': 11.34 LVOT Max Gradient: 4.56 mm[Hg] LVOT Area (cm2): 1.07 m/s Peak Velocity (LVOT): 1.07 m/s Mean Velocity (LVOT): 0.66 m/s LVOT Diameter 2.44 cm Left Atrium LA Volume Index (2D A2C): 43.71 ml/m2 Left Atrium Systolic Dimension: 4.16 cm Mitral Valve MV E to A Ratio: 0.96 Mitral Valve A-Wave Peak Velocity: 1.00 m/s Mitral Valve E-Wave Peak Velocity: 0.96 m/s Right Ventricle Aorta AO Root Diam: 3.60 cm Aortic Valve AoV Area (Peak Des): 3.90 cm2, 3.90 cm2 AoV Area (VTI): 3.75 cm2, 3.75 cm2 Peak Velocity(Antegrade Flow): 1.28 m/s Peak Gradient(Antegrade Flow): 6.55 mm[Hg] Mean Velocity(Antegrade Flow): 0.78 m/s Mean Gradient(Antegrade Flow): 2.94 mm[Hg] Velocity Time Integral: 25.32 cm Tricuspid Valve Peak Velocity (Regurgitant Flow): 2.66 m/s Pulmonic Valve Mean Gradient: 2.03 mm[Hg] Mean Velocity: 0.65 m/s Peak Velocity: 1.06 m/s, 1.06 m/s Peak Gradient: 4.46 mm[Hg], 4.46 mm[Hg] Right Atrium Right Atrium Systolic Pressure: 64.90 ml, 64.90 ml Dictated by: Sunny Marshall M.D. on 12/12/2024 at 19:31 Approved by: Sunny Marshall M.D. on 12/12/2024 at 19:36
== END 2024-12-11 14:02 | disposition home or self-care (01) ==
LOC: CARD 14:01
PROVIDERS: Visit Provider Nurse Practitioner
DX: R42 Dizziness and giddiness (principal); I10 Essential (primary) hypertension; R01.1 Cardiac murmur, unspecified
CPT/HCPCS: 93306

== ENCOUNTER 2025-05-15 21:44 | Emergency (ER) | payer MEDICARE, SELFPAY ==
[2025-05-15 21:46] VITALS: BP 127/75; PULSE 89; TEMP 36.6; O2SAT 99; BMI 26.6
--- OUTSIDE RECORDS SUMMARY | 2025-05-15 22:01 | XMS_ITS | CCD ---
Author Organization [facility] Care Team Providers Care Research Hydrologist Name Role Phone REBECCA FARRIS Referring Unavailable KIANA HOLCOMB Admitting Unavailable KIANA HOLCOMB Attending Unavailable RODRÍGUEZ WHEAT Primary Care Unavailable [place] Procedure Practitioner Unavailab ZAHRAA Oneill Surgeon Unavailable ANM, Primary Care Unavailable SHAIKH BROWNING Referring Unavailable ZAHRAA DARBY Attending Unavailable ZAHRAA DARBY Admitting Unavailable Rodríguez Wheat II Primary Care Provider MD Maurice Barrera Primary Care Provider MD Maurice Barrera Attending Provider [phone] Shaikh Barrera Attending Unavailable Pollowwaade, Lugo Primary Care Unavailable Fawwad, Lugo Admitting Unavailable AICHHOLZ, WOOL TAMPER MIREYA Consulting Unavailable AICHHOLZ, WOOL TAMPER MIREYA Admitting Unavailable FAWWAD, LUGO H Primary Care Unavailable AICHHOLZ, WOOL TAMPER MIREYA Attending Unavailable AICHHOLZ, WOOL TAMPER MIREYA Consulting Unavailable AICHHOLZ, WOOL TAMPER MIREYA Admitting Unavailable FAWWAD, LUGO H Primary Care Unavailable AICHHOLZ, WOOL TAMPER MIREYA Attending Unavailable FAWWAD, LUGO H Admitting Unavailable FAWWAD, LUGO H Attending Unavailable FAWWAD, LUGO H Consulting Unavailable FAWWAD, LUGO H Primary Care Unavailable Annmarie Mcgee Unavailable Rodríguez Wheat II Primary Care Provider Jarret PERERA MD, Daniel B Primary Care Provider [phone] Shaikh Barrera MD Unavailable Low Beyer MD Primary Care Provider Darío LARGE ENGINE ASSEMBLER, Leander Unavailable Brennon WILLIS, Brandi Unavailable Unavailable Shaikh Barrera MD Unavailable Rosa Nguyen MA Unavailable Unavailable Holly CARIAS, Primary Care Provider WHEAT II, RODRÍGUEZ Jihan Primary Care Unavailable BENNY, FREDERICK Referring Unavailable SANTIAGO ZAPATAEK Attending Unavailable SHAIKH BARRERA Primary Care Unavailable Gabriel WILLIS, Dang Unavailable Unavailable Chanel LARGE ENGINE ASSEMBLER, Leander Unavailable [phone] Aichholz ENVIRONMENTAL PROTECTION INSPECTOR-WOOL TAMPER, Mireya Bazan Primary Care Provider TRABOULWICHOI, MOURHAF Referring Unavailable AICHHOLJeff, MIREYA RO Primary Care Unavailable TRABOULSSI, MOURHAF Referring Unavailable AICHHOLJeff, MIREYA RO Primary Care Unavailable TRABOULSSI, MOURHAF Attending Unavailable AICHHOLZ, MIREYA RO Primary Care Unavailable TRABOULSSI, MOURHAF Attending Unavailable TRABOULWICHOI, MOURHAF Referring Unavailable AICHHOLZ, MIREYA RO Primary Care Unavailable Rosa Nguyen MA Unavailable ALT, SUNNY Attending Unavailable ALT, SUNNY Attending Unavailable AICHHOLZ, MIREYA Attending Unavailable AICHHOLZ, MIREYA Attending Unavailable ALT, SUNNY Attending Unavailable ALT, SUNNY Attending Unavailable CHANEL, LEANDER Attending Unavailabl e CHANEL, LEANDER Attending Unavailabl e ALT, SUNNY Attending Unavailable AICHHOLZ, MIREYA Attending Unavailable Allergies Allergy Classification Reported Allergen(s) Allergy Type Date of Onset Reaction(s) Facility (1 source) Latex Drug allergy Unknown [employer] Other (20 sources) Acetaminophen / oxyCODONE Drug Allergy 3 [facility] (20 sources) Codeine; Translations: [CODEINE] Drug Allergy 3 Hallucinations, GI intolerance, Nausea Only [facility] (20 sources) oxyCODONE Drug Allergy 3 Unknown [facility] Medications Current Medications Medication Drug Class(es) Dates Sig (Normalized) Sig (Original) acetaminophen 325 mg / HYDROcodone bitartrate 5 mg oral tablet (1 source) Opioid Agonist Start: 03-03-2018 take 1 tablet by mouth every four to six hours Hydrocodone-Acet aminophen ([place]) 5-325 mg tablet Active 1 - 2 TAB PO EVERY 4-6 HOURS March 03, 2018 aspirin 81 mg delayed release oral tablet (7 sources) Platelet Aggregation Inhibitor, Nonsteroidal Anti-inflammatory Drug Start: 02-28-2018 take 1 tablet by mouth once daily Aspirin (Aspir-81) 81 mg Tablet,Delayed Release (Dr/Ec) Active 81 MG PO Daily February 28, 2018 12:00am take 1 tablet by mouth once giovani y Aspirin 81 mg ORAL Tab Take 81 mg by mouth once daily. Active take 1 tablet by zeeshan th every twenty-four hours Aspirin 81 MG 1 tablet Orally Once a day Not-Taking Comment on above: Take 81 mg by mouth once daily. diazePAM 2 mg oral tablet (5 sources) Benzodiazepine Start: 02-28-2018 take 2 mg by mouth once daily Diazepam Active 2 MG PO Daily February 28, 2018 12:00am Start: 10-11-2005 DIAZEPAM 2 MG TAB Indications: Active M ni re's disease, cochleovestibular one pill 2-3 times daily 100 2 10/11/2005 Active Comment on above: one pill 2-3 times d aily diclofenac sodium 50 mg delayed release oral tablet (4 sources) Nonsteroidal Anti-inflammatory Drug Start: 017 diclofenac, EC, (VOLTAREN) 50 mg EC tablet 01/16/2017 Active dicyclomine hydrochloride 10 mg oral capsule (2 sources) Anticholinergic Start: End: take 1 capsule by mouth in the morning, then take 1 capsule by mouth in the evening, then take 1 capsule by mouth at bedtime dicyclomine (Bentyl) 10 MG capsule Indications: Left lower quadrant pain Take 1 capsule (10 mg) by mouth in the morning and 1 capsule (10 mg) in the evening and 1 capsule (10 mg) before bedtime. 90 capsule 2 02/26/2024 05/26/2024 Active diphenhydrAMINE hydrochloride 25 mg oral tablet (1 source) Histamine-1 Receptor Antagonist Start: 018 take 25 mg by mouth once daily at bedtime Diphenhydramine Hcl Active 25 MG PO Daily at bedtime February 28, 2018 12:00am doxycycline hyclate 100 mg oral tablet (1 source) Tetracycline-class Drug Start: take 100 mg by mouth twice daily Doxycycline Hyclate Active 100 MG PO Twice daily 14 March 03, 2018 12:00am Equalyte (2 sources) Equalyte Active FIBER, PSYLLIUM HUSK, ORAL (2 sources) take 1 capsule by mouth four times daily FIBER, PSYLLIUM HUSK, ORAL Take 1 capsule by mouth 4 times a day. 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 180 capsule 1 02/01/2025 07/31/2025 Active Start: 04-15-2013 End: 03-06-2025 take 1 capsule by mouth in the [...] (300 mg) before bedtime. 180 capsule 1 09/07/2024 03/06/2025 Active Neurontin Active Comment on above: Take 300 mg by mouth twice daily. glipiZIDE 10 mg oral tablet (20 sources) Sulfonylurea Start: 11-04-2024 End: 05-02-2025 take 1 tablet by mouth in the morning glipiZIDE (Glucotrol) 10 MG tablet Indications: Type 2 diabetes mellitus without complication, without long-term current use of insulin (HCC) Take 1 tablet (10 mg) by mouth in the morning and 1 tablet (10 mg) in the evening. Take before meals. 180 tablet 02/01/2025 05/02/2025 Active Start: 04-23-2024 End: 08-03-2024 take 1 tablet by mouth in the morning glipiZIDE (Glucotrol) 10 MG tablet Indications: Type 2 diabetes mellitus without complication, 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) Take 1 tablet (10 mg) by mouth in the morning and 1 tablet (10 mg) in the evening. Take before meals. 180 tablet 08/03/2024 Active Start: 12-03-2023 take 1 tablet by zeeshan th twice daily glipiZIDE (Glucotrol) 10 mg tablet Take 1 tablet (10 mg) by mouth 2 times a day. 12/03/2023 Active glipiZIDE Active glipiZIDE 2.5 mg / metFORMIN hydrochloride 500 mg oral tablet (5 sources) Biguanide, Sulfonylurea Start: 02-28-2018 take 1 tablet by mouth once daily Glipizide-Metformin Active 1 TAB PO Daily February 28, 2018 12:00am Start: 01-19-2016 glipiZIDE-metF ORMIN (METAGLIP) 2.5-500 mg per tablet 01/19/2016 Active hydroCHLOROthiazide 25 mg / triamterene 37.5 mg oral tablet (10 sources) Potassium-sparing Diuretic, Thiazide Diuretic Start: 02-28-2018 take 1 tablet by mouth once daily Triamterene-Hydrochlorothiazid Active 1 TAB PO Daily February 28, 2018 12:00am Start: 11-10-2015 triamterene-hy drochlorothiazide (MAXZIDE-25) 37.5-25 mg per tablet 11/10/2015 Active Start: 06-29-2004 DYAZIDE 37.5/2 5 CAPSULE Indications: Active M ni re's disease, cochleovestibular one bymouth each day 30 4 06/29/2004 Active Comment on above: one bymouth each day meclizine hydrochloride 25 mg oral tablet (6 sources) Antiemetic Start: 02-28-2018 take 25 mg by mouth once daily Meclizine Active 25 MG PO Daily February 28, 2018 12:00am Start: 07-20-2004 ANTIVERT 25MG TABLET one three times daily for dizziness 100 4 07/20/2004 Active take 2 tablets by mo uth every twenty-four hours Meclizine HCl 12.5 MG 2 tablets as needed Orally Once a day Active Comment on above: one three times giovani y for dizziness melatonin 10 mg extended release oral tablet (2 sources) Start: 2023 take 1 capsule by mouth once daily at bedtime melatonin 10 mg tablet extended release Take 1 capsule by mouth once daily at bedtime. 02/21/2024 Active methotrexate 2.5 mg oral tablet (20 sources) Folate Analog Metabolic Inhibitor Start: 2023 take 1 tablet by mouth every week methotrexate 2.5 MG tablet Take 2.5 mg by mouth 1 (one) time per week. 09/21/2023 Active multivitamin tablet (2 sources) take 1 tablet by mouth once daily multivitamin tablet Take 1 tablet by mouth once daily. Active mupirocin 0.02 mg/mg topical ointment (1 source) RNA Synthetase Inhibitor Antibacterial Mupirocin 2 % Claims Service Representative al for 30 Days Active nitroglycerin 0.3 mg sublingual tablet (1 source) Nitrate Vasodilator Start: 2017 Nitroglycerin Active 0.3 MG SUBLINGUAL every 5 to 15 minutes February 28, 2018 12:00am simvastatin 40 mg oral tablet (20 sources) HMG-CoA Reductase Inhibitor Start: 2017 End: 2024 take 1 tablet by mouth in the evening simvastatin (Zocor) 40 MG tablet Indications: Hypercholesterolemia Take 1 tablet (40 mg) by mouth in the evening 90 tablet 1 02/01/2025 05/02/2025 Active Comment on above: Take 40 mg by mouth daily at bedtime. SITagliptin 100 mg oral tablet (20 sources) Dipeptidyl Peptidase 4 Inhibitor Start: 2022 End: 2024 take 1 tablet by mouth once daily SITagliptin (Januvia) 100 MG tablet Indications: Type 2 diabetes mellitus with diabetic polyneuropathy, without long-term current use of insulin (HCC) Take 1 tablet (100 mg) by mouth Daily for 10 days 10 tablet 03/04/2025 Active Januvia 100 MG O ral for 30 Days Active triamcinolone acetonide 1 mg/ml topical cream (16 sources) Corticosteroid Start: 11-03-2024 triamcinolone (Kenalog) 0.1 % cream 11/03/2024 Active Completed/Discontinued Medications Medication Drug Class(es) Dates Sig (Normalized) Sig (Original) baclofen 5 mg oral tablet (7 sources) gamma-Aminobutyr ic Acid-ergic Agonist Start: 11-12-2023 End: 07-01-2024 take [...] tablet 1 11/12/2023 07/01/2024 Discontinued (Therapy completed) Problems Active Problems Problem Classification Problem Date Documented Date Episodic/Chronic Abdominal pain (20 sources) Left lower quadrant pain; Translations: [Left lower quadrant pain] Onset: 02-26-2024 Resolved: 11-26-2024 02-26-2024 Episodic Allergic reactions (1 source) Allergy, unspecified, initial encounter Episodic Chronic obstructive pulmonary disease and bronchiectasis (20 sources) Chronic obstructive lung disease; Translations: [Chronic obstructive pulmonary disease, unspecified] Onset: 12-18-2022 11-05-2023 Chronic Conditions associated with dizziness or vertigo (4 sources) Meniere's disease; Translations: [Meniere's disease] Onset: 03-19-2005 03-19-2005 Chronic Coronary atherosclerosis and other heart disease (20 sources) Coronary atherosclerosis; Translations: [Atherosclerotic heart disease of [place] coronary artery without angina pectoris] 07-03-2024 Chronic Diabetes mellitus with complications (20 sources) Polyneuropathy due to type 2 diabetes mellitus; Translations: [Type 2 diabetes mellitus with diabetic polyneuropathy] Onset: 12-19-2022 06-22-2024 Chronic Diabetes mellitus without complication (20 sources) Type 2 diabetes mellitus without complications; Translations: [Type 2 diabetes mellitus without complication] Onset: 07-23-2022 Chronic Disorders of lipid metabolism (20 sources) Hyperlipidemia; Translations: [Hyperlipidemia, unspecified] Onset: 03-19-2005 03-19-2005 Chronic Essential hypertension (20 sources) Essential (primary) hypertension; Translations: [Essential hypertension] Onset: 07-28-2022 Resolved: 11-26-2024 08-05-2023 Chronic Heart valve disorders (20 sources) Mitral valve prolapse; Translations: [Nonrheumatic mitral (valve) prolapse] Onset: 12-16-2024 12-16-2024 Chronic Leukemias (20 sources) Chronic lymphoid leukemia, disease; 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] Onset: 05-15-2013 Chronic Other aftercare (1 source) Encounter for other specified surgical aftercare Episodic Other circulatory disease (5 sources) Orthostatic hypotension; Translations: [Orthostatic hypotension] Onset: 12-28-2024 12-28-2024 Episodic Other circulatory disease (1 source) Orthostatic hypotension; Translations: [Orthostatic hypotension] Onset: 12-28-2024 Episodic Other connective tissue disease (2 sources) Dupuytren's disease; Translations: [Palmar fascial fibromatosis [Dupuytren]] Episodic Other connective tissue disease (2 sources) Dupuytren's disease of palm; Translations: [Palmar fascial fibromatosis [Dupuytren]] Episodic Other connective tissue disease (2 sources) Dupuytrens contracture of bilateral hands; Translations: [Palmar fascial fibromatosis [Dupuytren]] Episodic Other ear and sense organ disorders (20 sources) Bilateral hearing loss; Translations: [Unspecified hearing loss, bilateral] Onset: 05-20-2019 11-05-2023 Chronic Other ear and sense organ disorders (1 source) Impacted cerumen, bilateral Episodic Other eye disorders (1 source) Other specified disorders of eye and adnexa Episodic Other lower respiratory disease (11 sources) Dyspnea; Translations: [Shortness of breath] Onset: 03-19-2005 03-19-2005 Episodic Other lower respiratory disease (2 sources) Shortness of breath; Translations: [Shortness of breath] Onset: 12-28-2024 Episodic Other nervous system disorders (2 sources) Ulnar nerve entrapment at elbow; Translations: [Lesion of ulnar nerve, right upper limb] Chronic Other nervous system disorders (2 sources) Carpal tunnel syndrome; Translations: [Carpal tunnel syndrome, left upper limb] Chronic Other nervous system disorders (4 sources) Cubital tunnel syndrome; Translations: [Lesion of ulnar nerve, right upper limb] Chronic Other nutritional; endocrine; and metabolic disorders (4 sources) Overweight in adulthood with body mass index of 25 or more but less than 30; Translations: [Body mass index (BMI) 27.0-27.9, adult] Onset: 12-28-2024 12-28-2024 Episodic Other nutritional; endocrine; and metabolic disorders (2 sources) Body mass index (BMI) 27.0-27.9, adult; Translations: [Body mass index (BMI) 27.0-27.9, adult] Onset: 12-28-2024 Episodic Other screening for suspected conditions (not mental disorders or infectious disease) (1 source) Encounter for screening for malignant neoplasm of prostate; Translations: [ENC SCREEN MALIG NEOPLASM PROSTATE] Onset: 07-28-2022 Episodic Peripheral and visceral atherosclerosis (20 sources) Atherosclerosis of aorta; Translations: [Atherosclerosis of aorta] Onset: 07-03-2024 07-03-2024 Chronic Residual codes; unclassified (1 source) Pain; Translations: [Pain, unspecified] Episodic Screening and history of mental health and substance abuse codes (6 sources) Ex-smoker; Translations: [Personal history of nicotine dependence] Onset: 12-28-2024 12-28-2024 Episodic Spondylosis; intervertebral disc disorders; other back problems (20 sources) Cervical arthritis; Translations: [Spondylosis without myelopathy or radiculopathy, cervical region] Onset: 08-20-2023 08-20-2023 Chronic Unclassified (1 source) Scrotal pain; Translations: [Scrotal pain] Onset: 05-08-2022 Past or Other Problems Problem Classification Problem Date Documented Date Episodic/Chronic Abdominal hernia (20 sources) Incisional hernia; Translations: [Incisional hernia without obstruction or gangrene] Onset: 08-20-2023 08-20-2023 Episodic Conditions associated with dizziness or vertigo (20 sources) Peripheral vertigo; Translations: [Other peripheral vertigo, unspecified ear] Onset: 12-24-2011 12-24-2011 Episodic Delirium, dementia, and amnestic and other cognitive disorders (20 sources) Alzheimer's disease; Translations: [Alzheimer's disease, unspecified] Onset: 08-05-2023 Resolved: 08-20-2023 08-20-2023 Chronic Heart valve disorders (20 sources) Cardiac murmur, unspecified; Translations: [Heart murmur] Onset: 07-31-2022 Episodic Immunizations and screening for infectious disease (20 sources) Autoantibody level - finding; Translations: [Other specified abnormal immunological findings in serum] Onset: 11-05-2023 11-05-2023 Episodic Intracranial injury (20 sources) Intracranial injury with loss of consciousness; Translations: [Unspecified intracranial injury with loss of consciousness greater than 24 hours with return to pre-existing conscious level, sequela] Onset: 08-05-2023 Resolved: 08-20-2023 08-20-2023 Episodic Mood disorders (20 sources) Mood disorders Onset: 08-20-2023 Resolved: 08-18-2024 08-20-2023 Nonspecific chest pain (4 sources) Chest pain; Translations: [Chest pain, unspecified] Onset: 03-19-2005 03-19-2005 Episodic Other connective tissue disease (20 sources) Fibromyalgia; Translations: [Fibromyalgia] Onset: 11-05-2023 11-05-2023 Episodic Other connective tissue disease (20 sources) Triggering of digit; Translations: [Trigger finger, right middle finger] Onset: 04-01-2024 04-01-2024 Episodic Other lower respiratory disease (4 sources) Disorder of lung; Translations: [Other disorders of lung] Onset: 03-19-2005 03-19-2005 Episodic Other nervous system disorders (20 sources) Neuropathy; Translations: [Polyneuropathy, unspecified] Onset: 08-20-2023 Resolved: 11-26-2024 08-20-2023 Chronic Other skin disorders (20 sources) Eruption; Translations: [Rash and other nonspecific skin eruption] Onset: 08-05-2023 08-05-2023 Episodic Other skin disorders (20 sources) Generalized rash; Translations: [Rash and other nonspecific skin eruption] Onset: 08-20-2023 08-20-2023 Episodic Residual codes; unclassified (20 sources) Memory impairment; Translations: [Other amnesia] Onset: 11-05-2023 11-05-2023 Episodic Spondylosis; intervertebral disc disorders; other back problems (20 sources) Lumbosacral radiculopathy; Translations: [Radiculopathy, lumbosacral region] Onset: 11-05-2023 11-05-2023 Episodic Unclassified (2 sources) Onset: 12-28-2024 12-28-2024 Viral infection (20 sources) Disease caused by 2019-nCoV; Translations: [COVID-19] Onset: 11-05-2023 11-05-2023 Episodic Results Test Name Value Interpretation Reference Range Facility Lower GI hemoglobin IA Ql (S tl)on 04-16-2025 FASTING: UNKNOWN [facility] Performing Organization Information Site ID: [id number] Name: [facility] Address: [address] [place] [address], [address] [place] [id number] Director: Ta Meyers MD [facility] Occult blood x 1, stoolon Lower GI hemoglobin IA Ql (Stl) SEE NOTE [facility] Comment on above: FECAL GLOBIN BY IMMUNOCHEMISTRY Micro Number: [id number] Test Status: Final Specimen Source: Insure (tm) fobt test card Specimen Quality: Adequate Fecal Globin: Not Detected Reference Range: Not Detected NOTE: Approved collection includes sample of toilet water adjacent to stool. Other methods of collection such as stool transferred from diaper, bedpan, or commode to toilet water may lead to inaccurate results. HbA1c (Bld) [Mass fraction]o n 03-31-2025 Interpretation and review of laboratory results Abnormal [facility] Laboratory - Hematology and Cell countson 03-31-2025 HbA1c (Bld) [Mass fraction] 7 % [facility] NUCLEAR STRESS TESTon 2024 NUCLEAR STRESS TEST Interpreted By: Ayde Ríos and Giannuzzi Michael STUDY: MYOCARDIAL PERFUSION STRESS TEST WITH LEXISCAN Performing facility: [facility], [address] [place] [address], [address], [place] [id number] [facility] Provider: Todd Vallecillo MD PCP: Dr. Marci Rojas [facility] Supervising provider: Todd Vallecillo MD INDICATION: Signs/Symptoms:shortne ss of breath. ,R06.02 Shortness of breath HISTORY: Gender: M; Age: 84 y/o ; Height: HT 162.6 cm cm; Weight: WT 72.576 kg kg. Diabetes; SOB; Fatigue; MVR Quit smoking 30 years ago. COMPARISON: Previous nuclear testing completed [id number] at [facility]. ACCESSION NUMBER(S): [id number] ORDERING CLINICIAN: TODD VALLECILLO TECHNIQUE: ONE DAY protocol. Stress injection: Date:01-21-25, 34.0 mCi of Myoview IV 20 seconds after rapid injection of Lexiscan. Rest injection: Date: 01-21-25, 10.6 mCi of Myoview IV at rest. The patient had a rapid injection of 0.4 mg of Lexiscan IV over 10 seconds. Imaging was performed by gated tomographic technique. Reason for Lexiscan: dizziness/unsteady/fal l risk STRESS TEST DATA: Resting heart rate was 59 BPM. Resting blood pressure was 108/78 mmHg. Peak blood pressure was 106/66 mmHg. Peak heart rate was 85 BPM. TEST TERMINATED DUE TO: Protocol completed FINDINGS: STRESS TEST RESULTS: Resting electrocardiogram revealed sinus bradycardia. There were no significant ischemic ECG changes or dysrhythmias. The patient did not have chest pains/symptoms during procedure. There was a normal recovery phase. IMAGING RESULTS: Image quality was good. Rest and stress tomographic images were reviewed and revealed normal perfusion without evidence of ischemia, myocardial infarction, or left ventricular dilatation with stress. Overall left ventricular systolic function appeared to be normal without regional wall motion abnormalities. Ejection fraction was 63%. TID is 1.18 and is normal. There was no evidence of attenuation artifact. IMPRESSION: Normal Lexiscan Myoview cardiac perfusion stress test. No evidence of ischemia or myocardial infarction by perfusion imaging. Normal left ventricular systolic function, ejection fraction 63%. When compared to a study from 2019, no significant interval changes are seen. Signed by: Ayde Ríos 01/21/2025 3:56 PM Dictation workstation: [id number] [facility] ECG 12 Leadon 12-28-2024 Normal sinus rhythm [facility] Work Phone: CA ECHO DOPPLER COMPLETEon 0 12-12-2024 [place] [address] Cardiology Report Signed Patient: EITAN HURTADO MR#: [id number] : 1940 Acct:[id number] Age/Sex: 84 / M ADM Date: 12/11/24 Loc: CARD Attending Dr: Mireya Rojas NP Ordering Physician: Mireya Rojas NP Date of Service: 12/11/24 Procedure(s): CA echo doppler complete Accession Number(s): [id number] cc: Mireya Rojas NP; LEANDER CHANEL Patient Name: EITAN HURTADO MR#: [id number] : 1940 Exam Date: 12/11/2024 Ordering Doctor: SUZANNE Rojas CNP ECHOCARDIOGRAM REPORT PROCEDURE: CA ECHO DOPPLER COMPLETE INDICATIONS: Dizziness, new onset murmur, hypertension, diabetes COMPARISON: None. DESCRIPTION: COMPLETE ECHOCARDIOGRAM Real-time transthoracic echocardiography with 2D, M-mode, spectral and color flow Doppler performed. QUALITY: Technical quality was good. LEFT VENTRICLE: Normal chamber size. Normal left ventricular wall thickness. Normal systolic function. LV EF: Normal left ventricular ejection fraction, (>55%). DIASTOLIC: Diastolic function is indeterminate. ATRIAL SEPTUM: Visually appears intact. LEFT ATRIUM: Moderate dilatation. RIGHT ATRIUM: Mild dilatation. RIGHT VENTRICLE: Normal chamber size. Normal right ventricular systolic function. TRICUSPID VALVE: Normal mobility and thickness. No stenosis with trivial regurgitation. MITRAL VALVE: Anterior and posterior mitral valve leaflet prolapse. Mild mitral annular calcification. At least moderate mitral regurgitation. AORTIC VALVE: Normal trileaflet appearance. No visible sclerosis. Normal leaflet mobility. No evidence of aortic valve stenosis. Trivial aortic regurgitation. AORTIC ROOT: Normal diameter and appearance, measuring 3.6 cm. PULMONIC VALVE: Normal thickness and mobility. No stenosis. No regurgitation. PERICARDIUM: No evidence of pericardial effusion. IVC: Collapses with inspirations. IVC is normal in size. PLEURA: CONCLUSION: 1. Normal left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 Performed By: #### 2 532-0, 3083-09, #### [facility] CLIA [id number] [address] [place] [address] [place] Potassium [Moles/Vol] 4.6 mmol/L Normal 3.7-5.1 [facility] Comment on above: Order Comment: Yasmin baumann Type: BLOOD SPECIMEN Ordering Facility: [facility] Address: [address] [place] [address] Performed By: #### 2 532-0, 3083-09, #### [facility] CLIA [id number] [address] [place] [address] [place] Protein [Mass/Vol] 6.2 g/dL Low 6.3-8.0 [facility] Comment on above: Order Comment: Speci men Type: BLOOD SPECIMEN Ordering Facility: [facility] Address: [address] [place] [address] Performed By: #### 2 532-0, 308-1, #### [facility] CLIA [id number] [address] [place] [address] [place] Sodium [Moles/Vol] 139 mmol/L Normal 136-144 [facility] Comment on above: Order Comment: Speci men Type: BLOOD SPECIMEN Ordering Facility: [facility] Address: [address] [place] [address] Performed By: #### 2 532-0, 308-1, #### [facility] CLIA [id number] [address] [place] [address] [place] Urea nitrogen [Mass/Vol] 14 mg/dL Normal 9-24 [facility] Comment on above: Order Comment: Speci men Type: BLOOD SPECIMEN Ordering Facility: [facility] Address: [address] [place] [address] Performed By: #### 2 532-0, 3083-1, #### [facility] CLIA [id number] [address] [place] [address] [place] LDH SerPl-cCncon 08-06-2024 LDH [Catalytic activity/Vol] 275 U/L High 135-225 [facility] Comment on above: Order Comment: Speci men Type: BLOOD SPECIMEN Ordering Facility: [facility] Address: [address] [place] [address] Performed By: #### 2 532-0, 308-1, #### [facility] CLIA [id number] [address] [place] [address] [place] Urate SerPl-mCncon Urate [Mass/Vol] 3.8 mg/dL Low 4.0-8.[address] [facility] Comment on above: Order Comment: Speci men Type: BLOOD SPECIMEN Ordering Facility: [facility] Address: [address] [place] [address] Performed By: #### 2 532-0, 3084-1, 60425-9 #### [facility] CLIA [id number] [address] [place] [address] Comprehensive metabolic 2000 panelon 08-08-2023 Albumin [Mass/Vol] 4.6 g/dL 3.9 - 4.9 g/dL [facility] ALP [Catalytic activity/Vol] 93 U/L 38 - 113 U/L [facility] ALT [Catalytic activity/Vol] 13 U/L 10 - 54 U/L [facility] Anion gap [Moles/Vol] 9 mmol/L 9 - 18 mmol/L [facility] AST [Catalytic activity/Vol] 16 U/L 14 - 40 U/L [facility] Bilirubin [Mass/Vol] 0.6 mg/dL 0.2 - 1 .3 mg/dL [facility] Calcium [Mass/Vol] 10.0 mg/dL 8.5 - 10. 2 mg/dL [facility] Chloride [Moles/Vol] 103 mmol/L 97 - 10 5 mmol/L [facility] CO2 [Moles/Vol] 29 mmol/L 22 - 30 mmol/L [facility] Creatinine [Mass/Vol] 1.04 mg/dL 0.73 - 1.22 mg/dL [facility] Estimated Glomerular Filtration Rate 70 mL/min/1.73m >=60 mL/min/1.73m [facility] Glucose [Mass/Vol] 168 mg/dL High 74 - 99 mg/dL [facility] Potassium [Moles/Vol] 4.5 mmol/L 3.7 - 5.1 mmol/L [facility] Protein [Mass/Vol] 6.8 g/dL 6.3 - 8.0 g/dL [facility] Sodium [Moles/Vol] 141 mmol/L 136 - 144 mmol/L [facility] Urea nitrogen [Mass/Vol] 23 mg/dL 9 - 24 mg/dL [facility] LD LACTATE DEHYDROon 023 LDH [Catalytic activity/Vol] 193 U/L 135 - 225 U/L [facility] URIC ACID BLOODon 08-08-2023 Urate [Mass/Vol] 4.9 mg/dL 4.0 - 8.1 mg/dL [facility] ECHOCARDIO M/2D COMPLETEon 1 09-30-2021 ECHOCARDIO M/2D COMPLETE Patient: EITAN HURTADO Exam Date: 07/31/2022 : 1940 Gender:M Ordering : SUZANNE MIREYA [facility] Admission #: [id number] Family : Order #: [id number] CLICK HERE TO VIEW EXAM ECHOCARDIOGRAM REPORT [...] (Peak Des): 3.25 cm2, 3.25 cm2 Deceleration Duval: 0.65 m/s2 Pressure Half-Time: 897.66 ms Peak [...] Mendes M.D. on 08/01/2022 at 15:23 Normal [facility] GLYCOHEMOGLOBIN A1Con 2021 ADA RECOMMENDATION SEE BELOW Normal [facility] Comment on above: Result Comment: ADA RECOMMENDED LIMIT 4.0 - 6.0 ADA THERAPEUTIC TARGET < 7.0 ACTION SUGGESTED > 7.0 Performed By: #### A 1C #### [facility] [address] [place] [address] [address] Estrada Carpenter Glucose [Mass/Vol] 206 mg/dL Normal [facility] Comment on above: Performed By: #### A 1C #### [facility] [address] [address] [address] Estrada Carpenter HbA1c (Bld) [Mass fraction] 8.8 % Critically high 4.5-6.2 [facility] Comment on above: Performed By: #### A 1C #### [facility] [address] [place] [address] Dr. Estrada Carpenter PROF CHEM 8 (BAS METB)on Anion gap [Moles/Vol] 10.7 mmol/L Normal [facility] Comment on above: Performed By: #### B MP #### [facility] [address] [place] [address] Dr. Estrada Carpenter Calcium [Mass/Vol] 8.8 mg/dL Normal 8.5-10.1 [facility] Comment on above: Performed By: #### B MP #### [facility] [address] [place] [address] Dr. Estrada Carpenter Chloride [Moles/Vol] 103 mmol/L Normal 98-107 [facility] Comment on above: Performed By: #### B MP #### [facility] [address] [place] [address] Dr. Estrada Carpenter CO2 [Moles/Vol] 26.4 mmol/L Normal 21.0-32.0 [facility] Comment on above: Performed By: #### B MP #### [facility] [address] [place] [address] Dr. Estrada Carpenter Creatinine [Mass/Vol] 0.89 mg/dL Normal 0.70-1.30 [facility] Comment on above: Performed By: #### B MP #### [facility] [address] [place] [address] Dr. Estrada Carpenter EGFR-AF EMIRATI >60 Normal >=60 [facility] Comment on above: Performed By: #### B MP #### [facility] [address] [address] [address] Estrada Carpenter EGFR-NON AF EMIRATI >60 Normal >=60 [facility] Comment on above: Performed By: #### B MP #### [facility] [address] [address] [address] Estrada Carpenter Glucose [Mass/Vol] 167 mg/dL Critically high 74-106 [facility] Comment on above: Performed By: #### B MP #### [facility] [address] [address] [address] Estrada Carpenter Potassium [Moles/Vol] 4.1 mmol/L Normal 3.5-5.1 [facility] Comment on above: Performed By: #### B MP #### [facility] [address] [address] [address] Estrada Carpenter Sodium [Moles/Vol] 136 mmol/L Normal 136-145 [facility] Comment on above: Performed By: #### B MP #### [facility] [address] [address] [address] Estrada Carpenter Urea nitrogen [Mass/Vol] 17.0 mg/dL Normal 7.0-18.0 [facility] Comment on above: Performed By: #### B MP #### [facility] [address] [address] [address] Estrada Crapenter Urea nitrogen/Creatinine [Mass ratio] 19.1 mg/mg Normal [facility] Comment on above: Performed By: #### B MP #### [facility] [address] [address] [address] Estrada Carpenter US abdomen limitedon 022 US abdomen limited [facility] [place] [address] Ultrasound Report Signed with Kareem Patient: Eitan Hurtado MR#: [id number] : 1940 Acct:[id number] Age/Sex: 82 / M ADM Date: 05/08/22 Loc: Room: [facility] Att[facility] Dr: Shaikh Holly CARIAS Ordering Provider: [...] Zapien Jr., D.O.05/08/2022 6:39 PM Dictation Location: [facility]-- Addendum Dictated By: Tan Zapien Jr, DO [...] Zapien Jr., D.O.05/08/2022 5:59 PM Dictation Location: [facility] Tech: Justa Edmonds Transcribed By: DEIDRA 05/08/221758 Dictated By: Tan Zapien Jr, DO 05/08/22 174 Signed By: 05/08/221758 [facility] US scrotumon 05-08-2022 scrotum [facility] [place] [address] Ultrasound Report Signed Patient: Eitan Hurtado MR#: [id number] : 1940 Acct:[id number] Age/Sex: 82 / M ADM Date: 05/08/22 Loc: UL Room: Type: [facility] Attending Dr: Shaikh Holly CARIAS Ordering [...] cm. Impression dictated by: Tan Zapien Jr., JarvisORachel05/08/2022 6:16 PM Dictation Location: [place] [address] Tech: [facility] Transcribed By: DEIDRA 05/08/221815 Dictated By: Tan Zapien Jr, DO 05/08/221811 Signed By: 05/08/221815 [facility] CBC W MANUAL DIFFon 01-04-20 22 ATYPICAL LYMPH # Normal [facility] Comment on above: Performed By: #### C KATIE #### [facility] [address] [address] [address] Estrada Carpenter ATYPICAL LYMPH % Normal [facility] Comment on above: Performed By: #### C KATIE #### [facility] [address] [address] [address] Estrada Carpenter BAND # 0.0 103/ul Normal 0.0-0.3 [facility] Comment on above: Performed By: #### C KATIE #### [facility] [address] [address] [address] Estrada Carpenter BAND % 0 % Normal 0-5 [facility] Comment on above: Performed By: #### C KATIE #### [facility] [address] [address] [address] Estrada Carpenter BASOM # 0.00 103/ul Normal 0.00-0.10 [facility] Comment on above: Performed By: #### C KATIE #### [facility] [address] [address] [address] Estrada Carpenter BASOM % 0.0 % Critically low 0.2-2.0 [facility] Comment on above: Performed By: #### C KATIE #### [facility] [address] [place] [address] Dr. Estrada Carpenter BLAST # Normal [facility] Comment on above: Performed By: #### C KATIE #### [facility] [address] [place] [address] Dr. Estrada Carpenter BLAST % Normal [facility] Comment on above: Performed By: #### C KATIE #### [facility] [address] [place] [address] Dr. Estrada Carpenter CORRECTED WBC Normal 4.0-11.0 [facility] Comment on above: Performed By: #### C KATIE #### [facility] [address] [place] [address] Dr. Estrada Carpenter EOS # 0.00 103/ul Normal 0.00-0.70 [facility] Comment on above: Performed By: #### C KATIE #### [facility] [address] [place] [address] Dr. Estrada Carpenter EOS% 0.0 % Critically low 0.9-7.0 [facility] Comment on above: Performed By: #### C KATIE #### [facility] [address] [place] [address] Dr. Estrada Carpenter HCT 44.2 % Normal 42.0-54.0 [facility] Comment on above: Performed By: #### C KATIE #### [facility] [id number] Estrada Carpenter HGB 13.8 g/dl Critically low 14.0-18.0 [facility] Comment on above: Performed By: #### C KATIE #### [facility] [address] [address] [address] Estrada Carpenter LYMPHM # 14.11 103/ul Critically high 1.20-3.80 [facility] Comment on above: Performed By: #### C KATIE #### [facility] [address] [address] [address] Estrada Carpenter LYMPHM% 72.0 % Critically high 20.5-60.0 [facility] Comment on above: Performed By: #### C KATIE #### [facility] [address] [place] [address] Dr. Estrada Carpenter MCH 31.3 pg Normal 25.9-34.0 [facility] Comment on above: Performed By: #### Rocío WILSON #### [facility] [address] [address] [address] Estrada Carpenter MCHC 31.2 g/dl Normal 29.9-35.2 [facility] Comment on above: Performed By: #### Rocío WILSON #### [facility] [address] [address] [address] Estrada Carpenter MCV 100.2 fL Critically high 80.0-94.0 [facility] Comment on above: Performed By: #### Rocío WILSON #### [facility] [address] [address] [address] Estrada Carpenter METAMYELOCYTE # Normal [facility] Comment on above: Performed By: #### Rocío WILSON #### [facility] [address] [address] [address] Estrada Carpenter METAMYELOCYTE % Normal [facility] Comment on above: Performed By: #### Rocío WILSON #### [facility] [address] [address] [address] Estrada Carpenter MONOM# 0.78 103/ul Normal 0.30-0.80 [facility] Comment on above: Performed By: #### C KATIE #### [facility] [address] [address] [address] Estrada Carpenter MONOM% 4.0 % Normal 1.7-12.0 [facility] Comment on above: Performed By: #### C KATIE #### [facility] [address] [address] [address] Estrada Carpenter MPV 12.1 fL Normal 9.5-13.5 [facility] Comment on above: Performed By: #### C KATIE #### [facility] [address] [place] [address] Dr. Estrada Carpenter MYELOCYTE # Normal [facility] Comment on above: Performed By: #### C KATIE #### [facility] [address] [place] [address] Dr. Estrada Carpenter MYELOCYTE % Normal [facility] Comment on above: Performed By: #### C KATIE #### [facility] [address] [place] [address] Dr. Estrada Carpenter NRBC Normal [facility] Comment on above: Performed By: #### C KATIE #### [facility] [address] [place] [address] Dr. Estrada Carpenter PLT 166 103/ul Normal 150-450 [facility] Comment on above: Performed By: #### C KATIE #### [facility] [address] [address] [address] Estrada Carpenter RBC 4.41 106/ul Critically low 4.70-6.10 [facility] Comment on above: Performed By: #### C KATIE #### [facility] [address] [address] [address] Estrada Carpenter RDW 14.9 % Normal 11.0-15.0 [facility] Comment on above: Performed By: #### C KATIE #### [facility] [address] [address] [address] Estrada Carpenter SEG # 4.70 103/ul Normal 1.40-6.50 [facility] Comment on above: Performed By: #### C KATIE #### [facility] [address] [address] [address] Estrada Carpenter SEG % 24.0 % Critically low 43.0-75.0 [facility] Comment on above: Performed By: #### C KATIE #### [facility] [address] [address] [address] Estrada Carpenter WBC 19.6 103/ul Critically high 4.0-11.0 [facility] Comment on above: Performed By: #### C KATIE #### [facility] [address] [address] [address] Estrada Carpenter GLYCOHEMOGLOBIN A1Con 2021 ADA RECOMMENDATION SEE BELOW Normal [facility] Comment on above: Result Comment: ADA RECOMMENDED LIMIT 4.0 - 6.0 ADA THERAPEUTIC TARGET < 7.0 ACTION SUGGESTED > 7.0 Performed By: #### A 1C #### [facility] [address] [place] [address] Dr. Estrada Carpenter Glucose [Mass/Vol] 151 mg/dL Normal [facility] Comment on above: Performed By: #### A 1C #### [facility] [address] [address] [address] Estrada Carpenter HbA1c (Bld) [Mass fraction] 6.9 % Critically high 4.5-6.2 [facility] Comment on above: Performed By: #### A 1C #### [facility] [address] [place] [address] Dr. Estrada Carpenter LIPID PROFILEon 01-03-2022 CHOL-HDL RATIO NORM SEE BELOW Normal [facility] Comment on above: Result Comment: 3.3 - 4.4 LOW RISK 4.4 - 7.1 AVERAGE RISK 7.1 - 11.0 MODERATE RISK >11.0 HIGH RISK Performed By: #### C MP, LIPID #### [facility] [address] [place] [address] Dr. Estrada Carpenter Cholesterol [Mass/Vol] 158 mg/dL Normal <=200 [facility] Comment on above: Performed By: #### C MP, LIPID #### [facility] [address] [address] [address] Estrada Carpenter Cholesterol in HDL [Mass/Vol] 42 mg/dL Normal 40-60 [facility] Comment on above: Performed By: #### C MP, LIPID #### [facility] [id number] Estrada Carpenter Cholesterol in LDL [Mass/Vol] 85.0 mg/dL Normal [facility] Comment on above: Performed By: #### C MP, LIPID #### [facility] [address] [place] [address] Dr. Estrada Carpenter Cholesterol.total/Ch olesterol in HDL [Mass ratio] 3.8 {ratio} Normal [facility] Comment on above: Performed By: #### C MP, LIPID #### [facility] [address] [place] [address] Dr. Estrada Carpenter HDL NORMAL > or = 60 mg/dl - LO W CARDIOVASCULAR RISK <40 mg/dl - HIGH CARDIOVASCULAR RISK Normal [facility] Comment on above: Performed By: #### C MP, LIPID #### [facility] [address] [place] [address] Dr. Estrada Carpenter LDL CALC NORMAL SEE BELOW Normal [facility] Comment on above: Result Comment: <100 mg/dl OPTIMAL 100 - 129 mg/dl NEAR OR ABOVE OPTIMAL 130 - 159 mg/dl BORDERLINE HIGH 160 - 189 mg/dl HIGH >190 mg/dl VERY HIGH Performed By: #### C MP, LIPID #### [facility] [address] [place] [address] Dr. Estrada Carpenter Triglyceride [Mass/Vol] 155 mg/dL Critically high <=150 [facility] Comment on above: Performed By: #### C MP, LIPID #### [facility] [address] [place] [address] Dr. Estrada Carpenter VLDL CALC 31.0 mg/dL Normal [facility] Comment on above: Performed By: #### C MP, LIPID #### [facility] [address] [place] [address] Dr. Estrada Carpenter PROF 14(COMP METB)on 022 Albumin [Mass/Vol] 3.8 g/dL Normal 3.4-5.0 [facility] Comment on above: Performed By: #### C MP, LIPID #### [facility] [address] [place] [address] Dr. Estrada Carpenter Albumin/Globulin [Mass ratio] 1.3 {ratio} Normal [facility] Comment on above: Performed By: #### C MP, LIPID #### [facility] [address] [address] [address] Estrada Carpenter ALP [Catalytic activity/Vol] 92 U/L Normal 46-116 [facility] Comment on above: Performed By: #### C MP, LIPID #### [facility] [address] [place] [address] Dr. Estrada Carpenter ALT [Catalytic activity/Vol] 26 U/L Normal 16-63 [facility] Comment on above: Performed By: #### C MP, LIPID #### [facility] [address] [place] [address] Dr. Estrada Carpenter Anion gap [Moles/Vol] 11.2 mmol/L Normal [facility] Comment on above: Performed By: #### C MP, LIPID #### [facility] [address] [place] [address] Dr. Estrada Carpenter AST [Catalytic activity/Vol] 17 U/L Normal 15-37 [facility] Comment on above: Performed By: #### C MP, LIPID #### [facility] [address] [place] [address] Dr. Estrada Carpenter Bilirubin [Mass/Vol] 0.5 mg/dL Normal 0.2-1.0 [facility] Comment on above: Performed By: #### C MP, LIPID #### [facility] [address] [address] [address] Estrada Carpenter Calcium [Mass/Vol] 8.4 mg/dL Critically low 8.5-10.1 [facility] Comment on above: Performed By: #### C MP, LIPID #### [facility] [address] [place] [address] Dr. Estrada Carpenter Chloride [Moles/Vol] 102 mmol/L Normal 98-107 [facility] Comment on above: Performed By: #### C MP, LIPID #### [facility] [address] [place] [address] Dr. Estrada Carpenter CO2 [Moles/Vol] 29.3 mmol/L Normal 21.0-32.0 [facility] Comment on above: Performed By: #### C MP, LIPID #### [facility] [address] [place] [address] Dr. Estrada Carpenter Creatinine [Mass/Vol] 0.89 mg/dL Normal 0.70-1.30 [facility] Comment on above: Performed By: #### C MP, LIPID #### [facility] [address] [place] [address] Dr. Estrada Carpenter EGFR-AF EMIRATI >60 Normal >=60 [facility] Comment on above: Performed By: #### C MP, LIPID #### [facility] [address] [place] [address] Dr. Estrada Carpenter EGFR-NON AF EMIRATI >60 Normal >=60 [facility] Comment on above: Performed By: #### C MP, LIPID #### [facility] [address] [place] [address] Dr. Estrada Carpenter Globulin (S) [Mass/Vol] 3.0 g/dL Normal [facility] Comment on above: Performed By: #### C MP, LIPID #### [facility] [address] [place] [address] Dr. Estrada Carpenter Glucose [Mass/Vol] 145 mg/dL Critically high 74-106 [facility] Comment on above: Performed By: #### C MP, LIPID #### [facility] [address] [place] [address] Dr. Estrada Carpenter Potassium [Moles/Vol] 4.5 mmol/L Normal 3.5-5.1 [facility] Comment on above: Performed By: #### C MP, LIPID #### [facility] [address] [place] [address] Dr. Estrada Carpenter Protein [Mass/Vol] 6.8 g/dL Normal 6.1-8.2 [facility] Comment on above: Performed By: #### C MP, LIPID #### [facility] [address] [address] [address] Estrada Carpenter Sodium [Moles/Vol] 138 mmol/L Normal 136-145 [facility] Comment on above: Performed By: #### C MP, LIPID #### [facility] [address] [address] [address] Estrada Carpenter Urea nitrogen [Mass/Vol] 15.0 mg/dL Normal 7.0-18.0 [facility] Comment on above: Performed By: #### C MP, LIPID #### [facility] [address] [address] [address] Estrada Carpenter Urea nitrogen/Creatinine [Mass ratio] 16.9 mg/mg Normal [facility] Comment on above: Performed By: #### C MP, LIPID #### [facility] [address] [address] [address] Estrada Carpenter BASIC METABOLIC PANELon 12-3 Calcium [Mass/Vol] 8.9 mg/dL Normal 8.6-10.3 [facility] Comment on above: Order Comment: No: D o not add to previous draw Performed By: #### 1 69, [id number] ####[facility] [place] [address], [place] Chloride [Moles/Vol] 107 mmol/L Normal 98-107 [facility] Comment on above: Order Comment: No: D o not add to previous draw Performed By: #### 1 69, 88767 ####[facility] [place] [address], [place] CO2 [Moles/Vol] 29 mmol/L Normal 21-31 [facility] Comment on above: Order Comment: No: D o not add to previous draw Performed By: #### 1 69, 02623 ####[facility] [place] [address], [place] Creatinine [Mass/Vol] 0.79 mg/dL Normal 0.70-1.30 [facility] Comment on above: Order Comment: No: D o not add to previous draw Performed By: #### 1 69, 82656 ####[facility] [place] [address], [place] GFR/1.73 sq M.predicted among blacks MDRD (S/P/Bld) [Vol rate/Area] mL/min/{1.73_m2} Normal >60 [facility] Comment on above: Order Comment: No: D o not add to previous draw Result Comment: Calc ulation may not be valid for patients over 70 years Performed By: #### 1 69, 74267 ####[facility] [place] [address], [facility] [[email or web address]] GFR/1.73 sq M.predicted among non-blacks MDRD (S/P/Bld) [Vol rate/Area] mL/min/{1.73_m2} Normal >60 [facility] Comment on above: Order Comment: No: D o not add to previous draw Result Comment: Calc ulation may not be valid for patients over 70 years Performed By: #### 1 69, 39534 ####[facility] [place] [address], [place] Glucose [Mass/Vol] 147 mg/dL High 70-100 [facility] Comment on above: Order Comment: No: D o not add to previous draw Performed By: #### 1 69, 01967 ####[facility] [place] [address], [place] Potassium [Moles/Vol] 4.1 mmol/L Normal 3.5-5.1 [facility] Comment on above: Order Comment: No: D o not add to previous draw Performed By: #### 1 69, 01333 ####[facility] [place] [address], [place] Sodium [Moles/Vol] 139 mmol/L Normal 136-145 [facility] Comment on above: Order Comment: No: D o not add to previous draw Performed By: #### 1 0, 94933 ####[facility] [facility].[address] Urea nitrogen [Mass/Vol] 22 mg/dL Normal 7-25 [facility] Comment on above: Order Comment: No: D o not add to previous draw Performed By: #### 1 0, 73494 ####[facility]3000 [facility].[address] CBC COMPLETE BLOOD COUNTon Erythrocyte distribution width (RBC) [Ratio] 14.9 % Normal 11.5-15.0 [facility] Comment on above: Order Comment: No: D o not add to previous draw Performed By: #### 5 0608 ####[facility]3000 [facility].[address] Hematocrit (Bld) [Volume fraction] 38.1 % Low 39.0-50.0 [facility] Comment on above: Order Comment: No: D o not add to previous draw Performed By: #### 5 0608 ####[address] [address] [facility].[address] Hemoglobin (Bld) [Mass/Vol] 12.2 g/dL Low 13.0-17.0 [facility] Comment on above: Order Comment: No: D o not add to previous draw Performed By: #### 5 0608 ####[facility] [facility].[address] MCH (RBC) [Entitic mass] 31.0 pg Normal 27.0-33.0 [facility] Comment on above: Order Comment: No: D o not add to previous draw Performed By: #### 5 0608 ####[facility] [facility].[address] MCHC (RBC) [Mass/Vol] 32.0 g/dL Normal 32.0-35.0 [facility] Comment on above: Order Comment: No: D o not add to previous draw Performed By: #### 5 0608 ####[facility] [place] [address], [facility] [[email or web address]] MCV (RBC) [Entitic vol] 96.9 fL Normal 82.0-98.0 [facility] Comment on above: Order Comment: No: D o not add to previous draw Performed By: #### 5 0608 ####[facility] Nucleated RBC/100 WBC (Bld) [Ratio] 0 % Normal 0-0 [facility] Comment on above: Order Comment: No: D o not add to previous draw Performed By: #### 5 0608 ####[facility] [facility] [place] [address], [facility] [[email or web address]] PLAT CNT 262 10*3/uL Normal 150-400 [facility] Comment on above: Order Comment: No: D o not add to previous draw Performed By: #### 5 0608 ####[place] [address] [facility].[address] RBC (Bld) [#/Vol] 3.93 10*6/uL Low 4.20-5.70 [facility] Comment on above: Order Comment: No: D o not add to previous draw Performed By: #### 5 0608 ####[facility] [facility] [place] [address], [facility] [[email or web address]] WBC (Bld) [#/Vol] 24.04 10*3/uL High 4.00-10.60 [facility] Comment on above: Order Comment: No: D o not add to previous draw Performed By: #### 5 0608 ####[facility]3000 [facility].[address] MAGNESIUM BLOODon 08-31-2021 Magnesium [Mass/Vol] 2.0 mg/dL Normal 1.9-2.7 [facility] Comment on above: Order Comment: No: D o not add to previous draw Performed By: #### 1 0070, 18501 ####[facility]3000 [facility].[address] POC GLUCOSE LABon 08-31-2021 Glucose [Mass/Vol] 150 mg/dL High 70-100 [facility] Comment on above: Performed By: #### 8 5499 ####[facility]3000 [facility].[address] Glucose [Mass/Vol] 133 mg/dL High 70-100 [facility] Comment on above: Performed By: #### 8 5499 ####[facility] POC SARS COV2 ANTIGEN NEGATI VEon 08-31-2021 POC SARS COV2 ANTIGEN NEG Negative Normal NEGATIVE [facility] Comment on above: Result Comment: Nega tive [...] of clinicalsigns and symptoms consistent with COVID-19.The [employer] COVID-19 Ag Card is a lateral flow immunoassay intended forthe qualitative detection of nucleocapsid protein antigen [id number] in direct nasal swabs from individuals within [...] Certificate ofAccreditation. Performed By: #### 3 1977 ####[facility] [facility] [place] [address], [facility] [[email or web address]] BASIC METABOLIC PANELon 12-2 Calcium [Mass/Vol] 8.3 mg/dL Low 8.6-10.3 [facility] Comment on above: Order Comment: No: D o not add to previous draw Performed By: #### 0 0071, 47154, 00153 ####[facility] [facility] [place] [address], [facility] [[email or web address]] Chloride [Moles/Vol] 110 mmol/L High 98-107 [facility] Comment on above: Order Comment: No: D o not add to previous draw Performed By: #### 0 0071, 79819, 17165 ####[facility] [facility] [place] [address], [facility] [[email or web address]] CO2 [Moles/Vol] 23 mmol/L Normal 21-31 [facility] Comment on above: Order Comment: No: D o not add to previous draw Performed By: #### 0 0071, 98811, 42540 ####[facility] [facility] [place] [address], [facility] [[email or web address]] Creatinine [Mass/Vol] 0.83 mg/dL Normal 0.70-1.30 [facility] Comment on above: Order Comment: No: D o not add to previous draw Performed By: #### 0 0071, 19595, 64441 ####[facility] [facility] [place] [address], [facility] [[email or web address]] GFR/1.73 sq M.predicted among blacks MDRD (S/P/Bld) [Vol rate/Area] mL/min/{1.73_m2} Normal >60 [facility] Comment on above: Order Comment: No: D o not add to previous draw Result Comment: Calc ulation may not be valid for patients over 70 years Performed By: #### 0 0071, 16148, 95090 ####[facility] [place] [address], [facility] [[email or web address]] GFR/1.73 sq M.predicted among non-blacks MDRD (S/P/Bld) [Vol rate/Area] mL/min/{1.73_m2} Normal >60 [facility] Comment on above: Order Comment: No: D o not add to previous draw Result Comment: Calc ulation may not be valid for patients over 70 years Performed By: #### 0 0071, 20656, 87284 ####[facility] [facility] [place] [address], [facility] [[email or web address]] Glucose [Mass/Vol] 142 mg/dL High 70-100 [facility] Comment on above: Order Comment: No: D o not add to previous draw Performed By: #### 0 0071, 68985, 52326 ####[facility] [facility] [place] [address], [facility] [[email or web address]] Potassium [Moles/Vol] 3.4 mmol/L Low 3.5-5.1 [facility] Comment on above: Order Comment: No: D o not add to previous draw Performed By: #### 0 0071, 48791, 97351 ####[facility] [facility] [place] [address], [facility] [[email or web address]] Sodium [Moles/Vol] 141 mmol/L Normal 136-145 [facility] Comment on above: Order Comment: No: D o not add to previous draw Performed By: #### 0 0071, 47897, 42489 ####[facility] [facility] [place] [address], [facility] [[email or web address]] Urea nitrogen [Mass/Vol] 19 mg/dL Normal 7-25 [facility] Comment on above: Order Comment: No: D o not add to previous draw Performed By: #### 0 0071, 21383, 07150 ####[facility] CBC COMPLETE BLOOD COUNTon Erythrocyte distribution width (RBC) [Ratio] 14.6 % Normal 11.5-15.0 [facility] Comment on above: Order Comment: No: D o not add to previous draw Performed By: #### 5 0608 ####[facility] [facility].[address] Hematocrit (Bld) [Volume fraction] 32.9 % Low 39.0-50.0 [facility] Comment on above: Order Comment: No: D o not add to previous draw Performed By: #### 5 0608 ####[facility] Hemoglobin (Bld) [Mass/Vol] 11.0 g/dL Low 13.0-17.0 [facility] Comment on above: Order Comment: No: D o not add to previous draw Performed By: #### 5 0608 ####[facility]3000 [facility].[address] MCH (RBC) [Entitic mass] 31.4 pg Normal 27.0-33.0 [facility] Comment on above: Order Comment: No: D o not add to previous draw Performed By: #### 5 0608 ####[facility] [facility].[address] MCHC (RBC) [Mass/Vol] 33.4 g/dL Normal 32.0-35.0 [facility] Comment on above: Order Comment: No: D o not add to previous draw Performed By: #### 5 0608 ####[address] MCV (RBC) [Entitic vol] 94.0 fL Normal 82.0-98.0 [facility] Comment on above: Order Comment: No: D o not add to previous draw Performed By: #### 5 0608 ####[facility]3000 [facility].[address] Nucleated RBC/100 WBC (Bld) [Ratio] 0 % Normal 0-0 [facility] Comment on above: Order Comment: No: D o not add to previous draw Performed By: #### 5 0608 ####[facility] [facility] [place] [address], [facility] [[email or web address]] PLAT CNT 214 10*3/uL Normal 150-400 [facility] Comment on above: Order Comment: No: D o not add to previous draw Performed By: #### 5 0608 ####[facility] [facility] [place] [address], [facility] [[email or web address]] RBC (Bld) [#/Vol] 3.50 10*6/uL Low 4.20-5.70 [facility] Comment on above: Order Comment: No: D o not add to previous draw Performed By: #### 5 0608 ####[facility] [facility] [place] [address], [facility] [[email or web address]] WBC (Bld) [#/Vol] 17.28 10*3/uL High 4.00-10.60 [facility] Comment on above: Order Comment: No: D o not add to previous draw Performed By: #### 5 0608 ####[facility]3000 [facility].[address] MAGNESIUM BLOODon 08-30-2021 Magnesium [Mass/Vol] 1.8 mg/dL Low 1.9-2.7 [facility] Comment on above: Order Comment: No: D o not add to previous draw Performed By: #### 0 0071, 25402, 96685 ####[facility] [facility] [place] [address], [facility] [[email or web address]] PHOSPHORUS BLOODon Phosphate [Mass/Vol] 3.4 mg/dL Normal 2.5-5.0 [facility] Comment on above: Order Comment: No: D o not add to previous draw Performed By: #### 0 0071, 81067, 57342 ####[facility] [place] [address], [place] POC GLUCOSE LABon 08-30-2021 Glucose [Mass/Vol] 212 mg/dL High 70-100 [facility] Comment on above: Performed By: #### 8 5499 ####[facility] [place] [address], [place] Glucose [Mass/Vol] 146 mg/dL High 70-100 [facility] Comment on above: Performed By: #### 8 5499 ####[facility] [place] [address], [place] Glucose [Mass/Vol] 164 mg/dL High 70-100 [facility] Comment on above: Performed By: #### 8 5499 ####[facility] [place] [address], [place] Glucose [Mass/Vol] 145 mg/dL High 70-100 [facility] Comment on above: Performed By: #### 8 5499 ####[facility] [place] [address], [place] BASIC METABOLIC PANELon 08-03 Calcium [Mass/Vol] 8.2 mg/dL Low 8.6-10.3 [facility] Comment on above: Order Comment: No: D o not add to previous draw Performed By: #### 4 1000, 85560, 44110 ####[facility] [place] [address], [place] Chloride [Moles/Vol] 111 mmol/L High 98-107 [facility] Comment on above: Order Comment: No: D o not add to previous draw Performed By: #### 4 1000, 75670, 43875 ####[facility] [place] [address], [facility] [[email or web address]] CO2 [Moles/Vol] 21 mmol/L Normal 21-31 [facility] Comment on above: Order Comment: No: D o not add to previous draw Performed By: #### 4 1000, 24721, 34854 ####[facility] [place] [address], [facility] [[email or web address]] Creatinine [Mass/Vol] 0.70 mg/dL Normal 0.70-1.30 [facility] Comment on above: Order Comment: No: D o not add to previous draw Performed By: #### 4 1000, 98923, 23322 ####[facility] [facility] [place] [address], [facility] [[email or web address]] GFR/1.73 sq M.predicted among blacks MDRD (S/P/Bld) [Vol rate/Area] mL/min/{1.73_m2} Normal >60 [facility] Comment on above: Order Comment: No: D o not add to previous draw Result Comment: Calc ulation may not be valid for patients over 70 years Performed By: #### 4 1000, 49129, 76891 ####[facility] [facility] [place] [address], [facility] [[email or web address]] GFR/1.73 sq M.predicted among non-blacks MDRD (S/P/Bld) [Vol rate/Area] mL/min/{1.73_m2} Normal >60 [facility] Comment on above: Order Comment: No: D o not add to previous draw Result Comment: Calc ulation may not be valid for patients over 70 years Performed By: #### 4 1000, 55365, 19053 ####[facility] [place] [address], [facility] [[email or web address]] Glucose [Mass/Vol] 148 mg/dL High 70-100 [facility] Comment on above: Order Comment: No: D o not add to previous draw Performed By: #### 4 1000, 83250, 44443 ####[facility] [id number], [facility] [[email or web address]] Potassium [Moles/Vol] 3.6 mmol/L Normal 3.5-5.1 [facility] Comment on above: Order Comment: No: D o not add to previous draw Performed By: #### 4 1000, 60408, 04511 ####[facility] [id number], [facility] [[email or web address]] Sodium [Moles/Vol] 140 mmol/L Normal 136-145 [facility] Comment on above: Order Comment: No: D o not add to previous draw Performed By: #### 4 1000, 78492, 79257 ####[facility] [id number], [facility] [[email or web address]] Urea nitrogen [Mass/Vol] 19 mg/dL Normal 7-25 [facility] Comment on above: Order Comment: No: D o not add to previous draw Performed By: #### 4 1000, 94382, 54483 ####[facility] [place] [address], [facility] [[email or web address]] CBC COMPLETE BLOOD COUNTon 10-30-2020 Erythrocyte distribution width (RBC) [Ratio] 14.6 % Normal 11.5-15.0 [facility] Comment on above: Order Comment: No: D o not add to previous draw Performed By: #### 5 0608 ####[facility] [place] [address], [facility] [[email or web address]] Hematocrit (Bld) [Volume fraction] 33.1 % Low 39.0-50.0 The [facility] Comment on above: Order Comment: No: D o not add to previous draw Performed By: #### 5 0608 ####[facility] [id number], [facility] [[email or web address]] Hemoglobin (Bld) [Mass/Vol] 10.7 g/dL Low 13.0-17.0 The [facility] Comment on above: Order Comment: No: D o not add to previous draw Performed By: #### 5 0608 ####[facility]3000 [facility].[address] MCH (RBC) [Entitic mass] 31.3 pg Normal 27.0-33.0 [facility] Comment on above: Order Comment: No: D o not add to previous draw Performed By: #### 5 0608 ####[facility] MCHC (RBC) [Mass/Vol] 32.3 g/dL Normal 32.0-35.0 [facility] Comment on above: Order Comment: No: D o not add to previous draw Performed By: #### 5 0608 ####[address] MCV (RBC) [Entitic vol] 96.8 fL Normal 82.0-98.0 [facility] Comment on above: Order Comment: No: D o not add to previous draw Performed By: #### 5 0608 ####[place] [address] [facility].[address] Nucleated RBC/100 WBC (Bld) [Ratio] 0 % Normal 0-0 [facility] Comment on above: Order Comment: No: D o not add to previous draw Performed By: #### 5 0608 ####[facility] [place] [address] PLAT CNT 167 10*3/uL Normal 150-400 The [facility] Comment on above: Order Comment: No: D o not add to previous draw Performed By: #### 5 0608 ####[address] RBC (Bld) [#/Vol] 3.42 10*6/uL Low 4.20-5.70 The [facility] Comment on above: Order Comment: No: D o not add to previous draw Performed By: #### 5 0608 ####[facility] [place] [address], [facility] [[email or web address]] WBC (Bld) [#/Vol] 16.20 10*3/uL High 4.00-10.60 The [facility] Comment on above: Order Comment: No: D o not add to previous draw Performed By: #### 5 0608 ####[facility] [place] [address], [place] MAGNESIUM BLOODon 08-29-2021 Magnesium [Mass/Vol] 1.8 mg/dL Low 1.9-2.7 [facility] Comment on above: Order Comment: No: D o not add to previous draw Performed By: #### 4 1000, 09804, 58894 ####[facility] [place] [address], [place] PHOSPHORUS BLOODon Phosphate [Mass/Vol] 3.1 mg/dL Normal 2.5-5.0 [facility] Comment on above: Order Comment: No: D o not add to previous draw Performed By: #### 4 1000, 10196, 37542 ####[facility] [place] [address], [place] POC GLUCOSE LABon 08-29-2021 Glucose [Mass/Vol] 187 mg/dL High 70-100 [facility] Comment on above: Performed By: #### 8 5499 ####[facility] [place] [address], [place] Glucose [Mass/Vol] 145 mg/dL High 70-100 [facility] Comment on above: Performed By: #### 8 5499 ####[facility] [place] [address], [place] Glucose [Mass/Vol] 142 mg/dL High 70-100 [facility] Comment on above: Performed By: #### 8 5499 ####[facility] [place] [address], [place] Glucose [Mass/Vol] 166 mg/dL High 70-100 [facility] Comment on above: Performed By: #### 8 5499 ####[facility] [place] [address], [place] Glucose [Mass/Vol] 164 mg/dL High 70-100 [facility] Comment on above: Performed By: #### 8 5499 ####[facility] [place] [address], [facility] [[email or web address]] BASIC METABOLIC PANELon 12-2 Calcium [Mass/Vol] 7.8 mg/dL Low 8.6-10.3 [facility] Comment on above: Order Comment: No: D o not add to previous draw Performed By: #### 1 69, 66520 ####[facility] [place] [address], [place] Chloride [Moles/Vol] 111 mmol/L High 98-107 The [facility] Comment on above: Order Comment: No: D o not add to previous draw Performed By: #### 1 69, 30843 ####[facility]3000 [facility] [place] [address], [place] CO2 [Moles/Vol] 21 mmol/L Normal 21-31 The [facility] Comment on above: Order Comment: No: D o not add to previous draw Performed By: #### 1 69, 60033 ####[facility] [place] [address], [place] Creatinine [Mass/Vol] 0.76 mg/dL Normal 0.70-1.30 [facility] Comment on above: Order Comment: No: D o not add to previous draw Performed By: #### 1 69, 92446 ####[facility] [place] [address], [place] GFR/1.73 sq M.predicted among blacks MDRD (S/P/Bld) [Vol rate/Area] mL/min/{1.73_m2} Normal >60 The [facility] Comment on above: Order Comment: No: D o not add to previous draw Result Comment: Calc ulation may not be valid for patients over 70 years Performed By: #### 1 69, 64239 ####[facility] [place] [address], [place] GFR/1.73 sq M.predicted among non-blacks MDRD (S/P/Bld) [Vol rate/Area] mL/min/{1.73_m2} Normal >60 [facility] Comment on above: Order Comment: No: D o not add to previous draw Result Comment: Calc ulation may not be valid for patients over 70 years Performed By: #### 1 69, 75385 ####[facility] [place] [address], [place] Glucose [Mass/Vol] 142 mg/dL High 70-100 [facility] Comment on above: Order Comment: No: D o not add to previous draw Performed By: #### 1 69, 38663 ####[facility] [place] [address], [place] Potassium [Moles/Vol] 3.9 mmol/L Normal 3.5-5.1 [facility] Comment on above: Order Comment: No: D o not add to previous draw Performed By: #### 1 69, 34275 ####[facility] [place] [address], [place] Sodium [Moles/Vol] 140 mmol/L Normal 136-145 [facility] Comment on above: Order Comment: No: D o not add to previous draw Performed By: #### 1 69, 63019 ####[facility]3000 [facility].[address] Urea nitrogen [Mass/Vol] 15 mg/dL Normal 7-25 The [facility] Comment on above: Order Comment: No: D o not add to previous draw Performed By: #### 1 0070, 31500 ####[facility]3000 [facility].[address] CBC COMPLETE BLOOD COUNTon 10-29-2020 Erythrocyte distribution width (RBC) [Ratio] 14.6 % Normal 11.5-15.0 [facility] Comment on above: Order Comment: No: D o not add to previous draw Performed By: #### 5 0608 ####[facility] Hematocrit (Bld) [Volume fraction] 31.8 % Low 39.0-50.0 [facility] Comment on above: Order Comment: No: D o not add to previous draw Performed By: #### 5 0608 ####[facility]3000 [facility].[address] Hemoglobin (Bld) [Mass/Vol] 10.5 g/dL Low 13.0-17.0 [facility] Comment on above: Order Comment: No: D o not add to previous draw Performed By: #### 5 0608 ####[facility]3000 [facility].[address] MCH (RBC) [Entitic mass] 31.6 pg Normal 27.0-33.0 [facility] Comment on above: Order Comment: No: D o not add to previous draw Performed By: #### 5 0608 ####[facility]3000 [facility].[address] MCHC (RBC) [Mass/Vol] 33.0 g/dL Normal 32.0-35.0 [facility] Comment on above: Order Comment: No: D o not add to previous draw Performed By: #### 5 0608 ####[facility] [facility] [place] [address], [facility] [[email or web address]] MCV (RBC) [Entitic vol] 95.8 fL Normal 82.0-98.0 [facility] Comment on above: Order Comment: No: D o not add to previous draw Performed By: #### 5 0608 ####[facility]3000 [facility].[address] Nucleated RBC/100 WBC (Bld) [Ratio] 0 % Normal 0-0 [facility] Comment on above: Order Comment: No: D o not add to previous draw Performed By: #### 5 0608 ####[facility] [place] [address], [facility] [[email or web address]] PLAT CNT 188 10*3/uL Normal 150-400 The [facility] Comment on above: Order Comment: No: D o not add to previous draw Performed By: #### 5 0608 ####[facility] RBC (Bld) [#/Vol] 3.32 10*6/uL Low 4.20-5.70 The [facility] Comment on above: Order Comment: No: D o not add to previous draw Performed By: #### 5 0608 ####[facility]3000 [facility] [place] [address], [facility] [[email or web address]] WBC (Bld) [#/Vol] 14.06 10*3/uL High 4.00-10.60 [facility] Comment on above: Order Comment: No: D o not add to previous draw Performed By: #### 5 0608 ####[facility] MAGNESIUM BLOODon 08-28-2021 Magnesium [Mass/Vol] 1.9 mg/dL Normal 1.9-2.7 [facility] Comment on above: Order Comment: No: D o not add to previous draw Performed By: #### 1 69, 80484 ####[facility] [place] [address], [facility] [[email or web address]] POC GLUCOSE LABon 08-28-2021 Glucose [Mass/Vol] 139 mg/dL High 70-100 [facility] Comment on above: Performed By: #### 8 5499 ####[facility] [place] [address], [facility] [[email or web address]] BASIC METABOLIC PANELon - Calcium [Mass/Vol] 7.6 mg/dL Low 8.6-10.3 [facility] Comment on above: Order Comment: No: D o not add to previous draw Performed By: #### 1 69, 17161 ####[place] [address] [facility] [place] [address], [facility] [[email or web address]] Chloride [Moles/Vol] 105 mmol/L Normal 98-107 The [facility] Comment on above: Order Comment: No: D o not add to previous draw Performed By: #### 1 69, 38979 ####[place] [address] [facility], [place] [address], [facility] [[email or web address]] CO2 [Moles/Vol] 23 mmol/L Normal 21-31 The [facility] Comment on above: Order Comment: No: D o not add to previous draw Performed By: #### 1 69, 82730 ####[facility] [id number], [place] Creatinine [Mass/Vol] 0.76 mg/dL Normal 0.70-1.30 The [facility] Comment on above: Order Comment: No: D o not add to previous draw Performed By: #### 1 69, 60949 ####[facility] [id number], [facility] [[email or web address]] GFR/1.73 sq M.predicted among blacks MDRD (S/P/Bld) [Vol rate/Area] mL/min/{1.73_m2} Normal >60 The [facility] Comment on above: Order Comment: No: D o not add to previous draw Result Comment: Calc ulation may not be valid for patients over 70 years Performed By: #### 1 0, 14718 ####[facility] [place] [address], [facility] [[email or web address]] GFR/1.73 sq M.predicted among non-blacks MDRD (S/P/Bld) [Vol rate/Area] mL/min/{1.73_m2} Normal >60 The [facility] Comment on above: Order Comment: No: D o not add to previous draw Result Comment: Calc ulation may not be valid for patients over 70 years Performed By: #### 1 69, 89597 ####[facility] [place] [address], [facility] [[email or web address]] Glucose [Mass/Vol] 109 mg/dL High 70-100 [facility] Comment on above: Order Comment: No: D o not add to previous draw Performed By: #### 1 69, 78390 ####[facility]3000 [facility] [place] [address], [facility] [[email or web address]] Potassium [Moles/Vol] 3.3 mmol/L Low 3.5-5.1 The [facility] Comment on above: Order Comment: No: D o not add to previous draw Performed By: #### 1 69, 52645 ####[facility] [place] [address], [place] Sodium [Moles/Vol] 137 mmol/L Normal 136-145 [facility] Comment on above: Order Comment: No: D o not add to previous draw Performed By: #### 1 0, 93726 ####[facility] [place] [address], [place] Urea nitrogen [Mass/Vol] 11 mg/dL Normal 7-25 The [facility] Comment on above: Order Comment: No: D o not add to previous draw Performed By: #### 1 0070, 43623 ####[facility] CBC COMPLETE BLOOD COUNTon 10-28-2020 Erythrocyte distribution width (RBC) [Ratio] 14.5 % Normal 11.5-15.0 The [facility] Comment on above: Order Comment: No: D o not add to previous draw Performed By: #### 5 0608 ####[facility] Hematocrit (Bld) [Volume fraction] 30.9 % Low 39.0-50.0 The [facility] Comment on above: Order Comment: No: D o not add to previous draw Performed By: #### 5 0608 ####[place] [address] [address] Hemoglobin (Bld) [Mass/Vol] 10.4 g/dL Low 13.0-17.0 The [facility] Comment on above: Order Comment: No: D o not add to previous draw Performed By: #### 5 0608 ####[address] MCH (RBC) [Entitic mass] 31.6 pg Normal 27.0-33.0 The [facility] Comment on above: Order Comment: No: D o not add to previous draw Performed By: #### 5 0608 ####[facility]3000 [facility].[address] MCHC (RBC) [Mass/Vol] 33.7 g/dL Normal 32.0-35.0 The [facility] Comment on above: Order Comment: No: D o not add to previous draw Performed By: #### 5 0608 ####[address] MCV (RBC) [Entitic vol] 93.9 fL Normal 82.0-98.0 [facility] Comment on above: Order Comment: No: D o not add to previous draw Performed By: #### 5 0608 ####[facility] [facility] [place] [address], [facility] [[email or web address]] Nucleated RBC/100 WBC (Bld) [Ratio] 0 % Normal 0-0 The [facility] Comment on above: Order Comment: No: D o not add to previous draw Performed By: #### 5 0608 ####[facility] [place] [address], [facility] [[email or web address]] PLAT CNT 170 10*3/uL Normal 150-400 The [facility] Comment on above: Order Comment: No: D o not add to previous draw Performed By: #### 5 0608 ####[place] [address] [facility] [place] [address], [facility] [[email or web address]] RBC (Bld) [#/Vol] 3.29 10*6/uL Low 4.20-5.70 The [facility] Comment on above: Order Comment: No: D o not add to previous draw Performed By: #### 5 0608 ####[facility] [facility] [place] [address], [facility] [[email or web address]] WBC (Bld) [#/Vol] 14.05 10*3/uL High 4.00-10.60 The [facility] Comment on above: Order Comment: No: D o not add to previous draw Performed By: #### 5 0608 ####[facility]3000 [facility] [place] [address], [facility] [[email or web address]] MAGNESIUM BLOODon 08-27-2021 Magnesium [Mass/Vol] 1.9 mg/dL Normal 1.9-2.7 The [facility] Comment on above: Order Comment: No: D o not add to previous draw Performed By: #### 1 0070, 52820 ####[facility] [facility] [place] [address], [facility] [[email or web address]] POC GLUCOSE LABon 08-27-2021 Glucose [Mass/Vol] 179 mg/dL High 70-100 [facility] Comment on above: Performed By: #### 8 5499 ####[facility] [place] [address], [place] Glucose [Mass/Vol] 116 mg/dL High 70-100 [facility] Comment on above: Performed By: #### 8 5499 ####[facility] [facility] [place] [address], [place] Glucose [Mass/Vol] 244 mg/dL High 70-100 [facility] Comment on above: Performed By: #### 8 5499 ####[facility] [place] [address], [place] Glucose [Mass/Vol] 135 mg/dL High 70-100 [facility] Comment on above: Performed By: #### 8 5499 ####[facility] [facility] [place] [address], [place] BASIC METABOLIC PANELon 12-2 Calcium [Mass/Vol] 7.9 mg/dL Low 8.6-10.3 [facility] Comment on above: Order Comment: No: D o not add to previous draw Performed By: #### 0 0071, 76130 ####[facility] [facility], [place] [address], [place] Chloride [Moles/Vol] 102 mmol/L Normal 98-107 The [facility] Comment on above: Order Comment: No: D o not add to previous draw Performed By: #### 0 0071, 77906 ####[facility] [facility], [place] [address], [place] CO2 [Moles/Vol] 21 mmol/L Normal 21-31 The [facility] Comment on above: Order Comment: No: D o not add to previous draw Performed By: #### 0 0071, 33187 ####[facility] [place] [address], [facility] [[email or web address]] Creatinine [Mass/Vol] 0.82 mg/dL Normal 0.70-1.30 [facility] Comment on above: Order Comment: No: D o not add to previous draw Performed By: #### 0 0071, 34436 ####[facility] [place] [address], [facility] [[email or web address]] GFR/1.73 sq M.predicted among blacks MDRD (S/P/Bld) [Vol rate/Area] mL/min/{1.73_m2} Normal >60 The [facility] Comment on above: Order Comment: No: D o not add to previous draw Result Comment: Calc ulation may not be valid for patients over 70 years Performed By: #### 0 0071, 33813 ####[facility] [facility], [place] [address], [facility] [[email or web address]] GFR/1.73 sq M.predicted among non-blacks MDRD (S/P/Bld) [Vol rate/Area] mL/min/{1.73_m2} Normal >60 The [facility] Comment on above: Order Comment: No: D o not add to previous draw Result Comment: Calc ulation may not be valid for patients over 70 years Performed By: #### 0 0071, 40902 ####[facility] [facility] [place] [address], [facility] [[email or web address]] Glucose [Mass/Vol] 130 mg/dL High 70-100 [facility] Comment on above: Order Comment: No: D o not add to previous draw Performed By: #### 0 0071, 43072 ####[facility] [facility], [place] [address], [facility] [[email or web address]] Potassium [Moles/Vol] 3.8 mmol/L Normal 3.5-5.1 [facility] Comment on above: Order Comment: No: D o not add to previous draw Performed By: #### 0 0071, 21885 ####[facility] [facility].[address] Sodium [Moles/Vol] 133 mmol/L Low 136-145 [facility] Comment on above: Order Comment: No: D o not add to previous draw Performed By: #### 0 0071, 65542 ####[facility]3000 [facility].[address] Urea nitrogen [Mass/Vol] 10 mg/dL Normal 7-25 The [facility] Comment on above: Order Comment: No: D o not add to previous draw Performed By: #### 0 007, 00192 ####[facility]3000 [facility].[address] CBC COMPLETE BLOOD COUNTon 10-27-2020 Erythrocyte distribution width (RBC) [Ratio] 14.6 % Normal 11.5-15.0 [facility] Comment on above: Order Comment: No: D o not add to previous draw Performed By: #### 5 0608 ####[facility]3000 [facility].[address] Hematocrit (Bld) [Volume fraction] 33.4 % Low 39.0-50.0 [facility] Comment on above: Order Comment: No: D o not add to previous draw Performed By: #### 5 0608 ####[facility]3000 [facility].[address] Hemoglobin (Bld) [Mass/Vol] 11.2 g/dL Low 13.0-17.0 [facility] Comment on above: Order Comment: No: D o not add to previous draw Performed By: #### 5 0608 ####[facility] [facility] [place] [address], [facility] [[email or web address]] MCH (RBC) [Entitic mass] 31.6 pg Normal 27.0-33.0 The [facility] Comment on above: Order Comment: No: D o not add to previous draw Performed By: #### 5 0608 ####[facility] MCHC (RBC) [Mass/Vol] 33.5 g/dL Normal 32.0-35.0 [facility] Comment on above: Order Comment: No: D o not add to previous draw Performed By: #### 5 0608 ####[facility] [place] [address], [facility] [[email or web address]] MCV (RBC) [Entitic vol] 94.4 fL Normal 82.0-98.0 [facility] Comment on above: Order Comment: No: D o not add to previous draw Performed By: #### 5 0608 ####[place] [address] [facility].[address] Nucleated RBC/100 WBC (Bld) [Ratio] 0 % Normal 0-0 [facility] Comment on above: Order Comment: No: D o not add to previous draw Performed By: #### 5 0608 ####[facility] [facility] [place] [address], [facility] [[email or web address]] PLAT CNT 179 10*3/uL Normal 150-400 The [facility] Comment on above: Order Comment: No: D o not add to previous draw Performed By: #### 5 0608 ####[address] [place] [address], [facility] [[email or web address]] RBC (Bld) [#/Vol] 3.54 10*6/uL Low 4.20-5.70 The [facility] Comment on above: Order Comment: No: D o not add to previous draw Performed By: #### 5 0608 ####[address] [place] [address], [facility] [[email or web address]] WBC (Bld) [#/Vol] 15.72 10*3/uL High 4.00-10.60 The [facility] Comment on above: Order Comment: No: D o not add to previous draw Performed By: #### 5 [id number] ####[facility] [place] [address], [place] MAGNESIUM BLOODon 08-26-2021 Magnesium [Mass/Vol] 1.8 mg/dL Low 1.9-2.7 [facility] Comment on above: Order Comment: No: D o not add to previous draw Performed By: #### 0 [id number], [id number] ####[facility] [place] [address], [place] POC GLUCOSE LABon 08-26-2021 Glucose [Mass/Vol] 203 mg/dL High 70-100 [facility] Comment on above: Performed By: #### 8 5499 ####[facility] [place] [address], [place] Glucose [Mass/Vol] 123 mg/dL High 70-100 [facility] Comment on above: Performed By: #### 8 5499 ####[facility] [place] [address], [place] Glucose [Mass/Vol] 171 mg/dL High 70-100 [facility] Comment on above: Performed By: #### 8 5499 ####[facility] [place] [address], [place] Glucose [Mass/Vol] 138 mg/dL High 70-100 [facility] Comment on above: Performed By: #### 8 5499 ####[facility] [place] [address], [place] BASIC METABOLIC PANELon 08-03 Calcium [Mass/Vol] 7.7 mg/dL Low 8.6-10.3 The [facility] Comment on above: Order Comment: No: D o not add to previous draw Performed By: #### 4 1000, 95789, 16638 ####[facility] [place] [address], [facility] [[email or web address]] Chloride [Moles/Vol] 101 mmol/L Normal 98-107 The [facility] Comment on above: Order Comment: No: D o not add to previous draw Performed By: #### 4 1000, 61097, 15570 ####[facility] [place] [address], [place] CO2 [Moles/Vol] 24 mmol/L Normal 21-31 The [facility] Comment on above: Order Comment: No: D o not add to previous draw Performed By: #### 4 1000, 96321, 14295 ####[place] [address] [facility], [place] [address], [facility] [[email or web address]] Creatinine [Mass/Vol] 0.88 mg/dL Normal 0.70-1.30 The [facility] Comment on above: Order Comment: No: D o not add to previous draw Performed By: #### 4 1000, 05527, 09470 ####[place] [address] [facility] [place] [address], [facility] [[email or web address]] GFR/1.73 sq M.predicted among blacks MDRD (S/P/Bld) [Vol rate/Area] mL/min/{1.73_m2} Normal >60 [facility] Comment on above: Order Comment: No: D o not add to previous draw Result Comment: Calc ulation may not be valid for patients over 70 years Performed By: #### 4 1000, 36759, 74406 ####[facility] [facility], [place] [address], [facility] [[email or web address]] GFR/1.73 sq M.predicted among non-blacks MDRD (S/P/Bld) [Vol rate/Area] mL/min/{1.73_m2} Normal >60 The [facility] Comment on above: Order Comment: No: D o not add to previous draw Result Comment: Calc ulation may not be valid for patients over 70 years Performed By: #### 4 1000, 66276, 88701 ####[facility] [place] [address], [facility] [[email or web address]] Glucose [Mass/Vol] 141 mg/dL High 70-100 The [facility] Comment on above: Order Comment: No: D o not add to previous draw Performed By: #### 4 1000, 06510, 93990 ####[facility] [place] [address], [facility] [[email or web address]] Potassium [Moles/Vol] 3.9 mmol/L Normal 3.5-5.1 The [facility] Comment on above: Order Comment: No: D o not add to previous draw Performed By: #### 4 1000, 13828, 64158 ####[facility] [facility], [place] [address], [facility] [[email or web address]] Sodium [Moles/Vol] 131 mmol/L Low 136-145 The [facility] Comment on above: Order Comment: No: D o not add to previous draw Performed By: #### 4 999, 29472, 87523 ####[facility] [facility] [place] Urea nitrogen [Mass/Vol] 11 mg/dL Normal 7-25 The [facility] Comment on above: Order Comment: No: D o not add to previous draw Performed By: #### 4 1000, 41645, 27455 ####[facility] [facility].[address] CBC COMPLETE BLOOD COUNTon 10-26-2020 Erythrocyte distribution width (RBC) [Ratio] 14.6 % Normal 11.5-15.0 The [facility] Comment on above: Order Comment: No: D o not add to previous draw Performed By: #### 5 0608 ####[facility] [facility] [place] [address], [facility] [[email or web address]] Hematocrit (Bld) [Volume fraction] 31.9 % Low 39.0-50.0 The [facility] Comment on above: Order Comment: No: D o not add to previous draw Performed By: #### 5 0608 ####[facility] Hemoglobin (Bld) [Mass/Vol] 10.8 g/dL Low 13.0-17.0 The [facility] Comment on above: Order Comment: No: D o not add to previous draw Performed By: #### 5 0608 ####[facility] [place] [address] MCH (RBC) [Entitic mass] 32.0 pg Normal 27.0-33.0 The [facility] Comment on above: Order Comment: No: D o not add to previous draw Performed By: #### 5 0608 ####[address] MCHC (RBC) [Mass/Vol] 33.9 g/dL Normal 32.0-35.0 The [facility] Comment on above: Order Comment: No: D o not add to previous draw Performed By: #### 5 0608 ####[address] MCV (RBC) [Entitic vol] 94.4 fL Normal 82.0-98.0 The [facility] Comment on above: Order Comment: No: D o not add to previous draw Performed By: #### 5 0608 ####[address] Nucleated RBC/100 WBC (Bld) [Ratio] 0 % Normal 0-0 The [facility] Comment on above: Order Comment: No: D o not add to previous draw Performed By: #### 5 0608 ####[address] PLAT CNT 163 10*3/uL Normal 150-400 The [facility] Comment on above: Order Comment: No: D o not add to previous draw Performed By: #### 5 0608 ####[facility] [place] [address], [facility] [[email or web address]] RBC (Bld) [#/Vol] 3.38 10*6/uL Low 4.20-5.70 The [facility] Comment on above: Order Comment: No: D o not add to previous draw Performed By: #### 5 0608 ####[facility] [place] [address], [facility] [[email or web address]] WBC (Bld) [#/Vol] 13.02 10*3/uL High 4.00-10.60 The [facility] Comment on above: Order Comment: No: D o not add to previous draw Performed By: #### 5 0608 ####[facility] [facility], [place] [address], [facility] [[email or web address]] MAGNESIUM BLOODon 08-25-2021 Magnesium [Mass/Vol] 1.7 mg/dL Low 1.9-2.7 The [facility] Comment on above: Order Comment: No: D o not add to previous draw Performed By: #### 4 1000, 31920, 32673 ####[facility] [facility] [place] [address], [facility] [[email or web address]] PHOSPHORUS BLOODon Phosphate [Mass/Vol] 3.8 mg/dL Normal 2.5-5.0 The [facility] Comment on above: Order Comment: No: D o not add to previous draw Performed By: #### 4 1000, 55045, 60851 ####[facility] [place] [address], [place] POC GLUCOSE LABon 08-25-2021 Glucose [Mass/Vol] 133 mg/dL High 70-100 The [facility] Comment on above: Performed By: #### 8 5499 ####[facility] [place] [address], [place] Glucose [Mass/Vol] 135 mg/dL High 70-100 The [facility] Comment on above: Performed By: #### 8 5499 ####[facility] [place] [address], [place] Glucose [Mass/Vol] 135 mg/dL High 70-100 The [facility] Comment on above: Performed By: #### 8 5499 ####[facility] [place] [address], [place] Glucose [Mass/Vol] 155 mg/dL High 70-100 The [facility] Comment on above: Performed By: #### 8 5499 ####[facility] [place] [address], [place] BASIC METABOLIC PANELon 12-2 Calcium [Mass/Vol] 7.9 mg/dL Low 8.6-10.3 The [facility] Comment on above: Order Comment: No: D o not add to previous drawMissed draw at 420amPT refused PATTY Cameron notified Performed By: #### 1 0, 92685, 66045 ####[facility] [place] [address], [place] Chloride [Moles/Vol] 100 mmol/L Normal 98-107 The [facility] Comment on above: Order Comment: No: D o not add to previous drawMissed draw at 420amPT refused PATTY Cameron notified Performed By: #### 1 0, 00591, 09899 ####[facility] [place] [address], [place] CO2 [Moles/Vol] 26 mmol/L Normal 21-31 The [facility] Comment on above: Order Comment: No: D o not add to previous drawMissed draw at 420amPT refused PATTY Cameron notified Performed By: #### 1 0, 06447, 81794 ####[facility] [place] [address], [place] Creatinine [Mass/Vol] 0.86 mg/dL Normal 0.70-1.30 [facility] Comment on above: Order Comment: No: D o not add to previous drawMissed draw at 420amPT refused PATTY Cameron notified Performed By: #### 1 0070, 79873, 20495 ####[facility] [facility] [place] [address], [facility] [[email or web address]] GFR/1.73 sq M.predicted among blacks MDRD (S/P/Bld) [Vol rate/Area] mL/min/{1.73_m2} Normal >60 The [facility] Comment on above: Order Comment: No: D o not add to previous drawMissed draw at 420amPT refused PATTY Cameron notified Result Comment: Calc ulation may not be valid for patients over 70 years Performed By: #### 1 0070, 98028, 53956 ####[facility] [facility] [place] [address], [facility] [[email or web address]] GFR/1.73 sq M.predicted among non-blacks MDRD (S/P/Bld) [Vol rate/Area] mL/min/{1.73_m2} Normal >60 The [facility] Comment on above: Order Comment: No: D o not add to previous drawMissed draw at 420amPT refused PATTY Cameron notified Result Comment: Calc ulation may not be valid for patients over 70 years Performed By: #### 1 0070, 59610, 37174 ####[facility] [facility] [place] [address], [place] Glucose [Mass/Vol] 127 mg/dL High 70-100 [facility] Comment on above: Order Comment: No: D o not add to previous drawMissed draw at 420amPT refused PATTY Cameron notified Performed By: #### 1 0070, 34099, 66471 ####[facility] [facility] [place] [address], [place] Potassium [Moles/Vol] 4.3 mmol/L Normal 3.5-5.1 The [facility] Comment on above: Order Comment: No: D o not add to previous drawMissed draw at 420amPT refused PATTY Cameron notified Performed By: #### 1 0070, 19725, 18056 ####[facility] [facility].[address] Sodium [Moles/Vol] 132 mmol/L Low 136-145 The [facility] Comment on above: Order Comment: No: D o not add to previous drawMissed draw at 420amPT refused PATTY Cameron notified Performed By: #### 1 0070, 21671, 28082 ####[facility] Urea nitrogen [Mass/Vol] 10 mg/dL Normal 7-25 The [facility] Comment on above: Order Comment: No: D o not add to previous drawMissed draw at 420amPT refused PATTY Cameron notified Performed By: #### 1 0, 73688, 74335 ####[facility] CBC W/DIFFon 08-24-2021 ABS IMM GRANS 0.1 10*3/uL Normal 0.0-0.2 The [facility] Comment on above: Order Comment: No: D o not add to previous drawMissed draw at 420amPT refused PATTY Cameron notified Performed By: #### 5 0103 ####[facility] ABS NEUTROPHILS 4.5 10*3/uL Normal 1.6-7.6 The [facility] Comment on above: Order Comment: No: D o not add to previous drawMissed draw at 420amPT refused PATTY Cameron notified Performed By: #### 5 0103 ####[facility] Basophils (Bld) [#/Vol] 0.0 10*3/uL Normal 0.0-0.2 The [facility] Comment on above: Order Comment: No: D o not add to previous drawMissed draw at 420amPT refused PATTY Cameron notified Performed By: #### 5 0103 ####[facility] [place] [address], [facility] [[email or web address]] Basophils/100 WBC (Bld) 0.1 % Normal 0.0-1.0 The [facility] Comment on above: Order Comment: No: D o not add to previous drawMissed draw at 420amPT refused PATTY Cameron notified Performed By: #### 5 0103 ####[facility] [place] [address], [facility] [[email or web address]] Eosinophils (Bld) [#/Vol] 0.0 10*3/uL Normal 0.0-0.5 The [facility] Comment on above: Order Comment: No: D o not add to previous drawMissed draw at 420amPT refused PATTY Cameron notified Performed By: #### 5 0103 ####[facility] [place] [address], [facility] [[email or web address]] Eosinophils/100 WBC (Bld) 0.1 % Normal 0.0-6.0 The [facility] Comment on above: Order Comment: No: D o not add to previous drawMissed draw at 420amPT refused PATTY Cameron notified Performed By: #### 5 0103 ####[facility] Erythrocyte distribution width (RBC) [Ratio] 14.7 % Normal 11.5-15.0 The [facility] Comment on above: Order Comment: No: D o not add to previous drawMissed draw at 420amPT refused PATTY Cameron notified Performed By: #### 5 0103 ####[facility] [place] [address], [facility] [[email or web address]] Hematocrit (Bld) [Volume fraction] 35.4 % Low 39.0-50.0 The [facility] Comment on above: Order Comment: No: D o not add to previous drawMissed draw at 420amPT refused RN Nisha notified Performed By: #### 5 0103 ####[facility] Hemoglobin (Bld) [Mass/Vol] 11.6 g/dL Low 13.0-17.0 The [facility] Comment on above: Order Comment: No: D o not add to previous drawMissed draw at 420amPT refused PATTY Cameron notified Performed By: #### 5 0103 ####[facility] IMMATURE GRANS 0.3 % Normal 0.0-1.0 The [facility] carmen [facility] Comment on above: Order Comment: No: D o not add to previous drawMissed draw at 420amPT refused PATTY Cameron notified Performed By: #### 5 3 ####[facility] Lymphocytes (Bld) [#/Vol] 10.1 10*3/uL High 1.2-4.0 The [facility] Comment on above: Order Comment: No: D o not add to previous drawMissed draw at 420amPT refused PATTY Cameron notified Performed By: #### 5 3 ####[facility] Lymphocytes/100 WBC (Bld) 67.1 % High 20.0-45.0 The [facility] Comment on above: Order Comment: No: D o not add to previous drawMissed draw at 420amPT refused PATTY Cameron notified Performed By: #### 5 3 ####[facility] MCH (RBC) [Entitic mass] 32.0 pg Normal 27.0-33.0 The [facility] Comment on above: Order Comment: No: D o not add to previous drawMissed draw at 420amPT refused PATTY Cameron notified Performed By: #### 5 3 ####[facility] [facility] [place] [address], [facility] [[email or web address]] MCHC (RBC) [Mass/Vol] 32.8 g/dL Normal 32.0-35.0 The [facility] Comment on above: Order Comment: No: D o not add to previous drawMissed draw at 420amPT refused PATTY Cameron notified Performed By: #### 5 0103 ####[facility] [facility] [place] [address], [facility] [[email or web address]] MCV (RBC) [Entitic vol] 97.5 fL Normal 82.0-98.0 The [facility] Comment on above: Order Comment: No: D o not add to previous drawMissed draw at 420amPT refused PATTY Cameron notified Performed By: #### 5 3 ####[facility] [facility] [place] [address], [facility] [[email or web address]] Monocytes (Bld) [#/Vol] 0.4 10*3/uL Normal 0.1-1.0 The [facility] Comment on above: Order Comment: No: D o not add to previous drawMissed draw at 420amPT refused PATTY Cameron notified Performed By: #### 5 0103 ####[facility] [facility].[address] MONOS 2.6 % Low 5.0-12.0 The [facility] Comment on above: Order Comment: No: D o not add to previous drawMissed draw at 420amPT refused PATTY Cameron notified Performed By: #### 5 0103 ####[facility] [facility] [place] [address], [facility] [[email or web address]] Neutrophils/100 WBC (Bld) 29.8 % Low 40.0-72.0 The [facility] Comment on above: Order Comment: No: D o not add to previous drawMissed draw at 420amPT refused PATTY Cameron notified Performed By: #### 5 3 ####[facility] [facility].[address] Nucleated RBC/100 WBC (Bld) [Ratio] 0 % Normal 0-0 The [facility] Comment on above: Order Comment: No: D o not add to previous drawMissed draw at 420amPT refused PATTY Cameron notified Performed By: #### 5 0103 ####[facility] [facility] [place] [address], [facility] [[email or web address]] PLAT CNT 175 10*3/uL Normal 150-400 The [facility] Comment on above: Order Comment: No: D o not add to previous drawMissed draw at 420amPT refused PATTY Cameron notified Performed By: #### 5 0103 ####[facility] [place] [address] RBC (Bld) [#/Vol] 3.63 10*6/uL Low 4.20-5.70 [facility] Comment on above: Order Comment: No: D o not add to previous drawMissed draw at 420amPT refused PATTY Cameron notified Performed By: #### 5 0103 ####[facility] [facility].[address] SMUDGE CELLS MANY Normal The [facility] Comment on above: Order Comment: No: D o not add to previous drawMissed draw at 420amPT refused PATTY Cameron notified Performed By: #### 5 0103 ####[facility] [facility].[address] WBC (Bld) [#/Vol] 15.09 10*3/uL High 4.00-10.60 [facility] Comment on above: Order Comment: No: D o not add to previous drawMissed draw at 420amPT refused PATTY Cameron notified Performed By: #### 5 0103 ####[facility] [facility] [place] [address], [facility] [[email or web address]] MAGNESIUM BLOODon 08-24-2021 Magnesium [Mass/Vol] 1.8 mg/dL Low 1.9-2.7 The [facility] Comment on above: Order Comment: No: D o not add to previous drawMissed draw at 420amPT refused PATTY Cameron notified Performed By: #### 1 0070, 91462, 99431 ####[facility] [place] [address], [place] PHOSPHORUS BLOODon Phosphate [Mass/Vol] 3.8 mg/dL Normal 2.5-5.0 The [facility] Comment on above: Order Comment: No: D o not add to previous drawMissed draw at 420amPT refused PATTY Cameron notified Performed By: #### 1 0070, 31477, 57614 ####[facility] [facility] [place] [address], [place] POC GLUCOSE LABon 08-24-2021 Glucose [Mass/Vol] 208 mg/dL High 70-100 [facility] Comment on above: Performed By: #### 8 5499 ####[facility] [facility] [place] [address], [place] Glucose [Mass/Vol] 146 mg/dL High 70-100 [facility] Comment on above: Performed By: #### 8 5499 ####[facility] [facility] [place] [address], [place] Glucose [Mass/Vol] 162 mg/dL High 70-100 [facility] Comment on above: Performed By: #### 8 5499 ####[facility] [place] [address], [place] Glucose [Mass/Vol] 148 mg/dL High 70-100 [facility] Comment on above: Performed By: #### 8 5499 ####[facility] [place] [address], [place] POC SARS COV2 ANTIGEN NEGATI VEon 08-24-2021 POC SARS COV2 ANTIGEN NEG Negative Normal NEGATIVE The [facility] Comment on above: Result Comment: Nega tive [...] of clinicalsigns and symptoms consistent with COVID-19.The [employer] COVID-19 Ag Card is a lateral flow immunoassay intended forthe qualitative detection of nucleocapsid protein antigen [id number] in direct nasal swabs from individuals within [...] Certificate ofAccreditation. Performed By: #### 3 1977 ####[facility] BASIC METABOLIC PANELon 12- Calcium [Mass/Vol] 7.8 mg/dL Low 8.6-10.3 [facility] Comment on above: Order Comment: No: D o not add to previous draw Performed By: #### 1 69, 65042 ####[facility] [facility] [place] [address], [facility] [[email or web address]] Chloride [Moles/Vol] 104 mmol/L Normal 98-107 The [facility] Comment on above: Order Comment: No: D o not add to previous draw Performed By: #### 1 69, 02878 ####[facility] [place] [address], [facility] [[email or web address]] CO2 [Moles/Vol] 24 mmol/L Normal 21-31 The [facility] Comment on above: Order Comment: No: D o not add to previous draw Performed By: #### 1 0, 89179 ####[facility] [place] [address], [place] Creatinine [Mass/Vol] 0.91 mg/dL Normal 0.70-1.30 The [facility] Comment on above: Order Comment: No: D o not add to previous draw Performed By: #### 1 69, 06409 ####[facility] [place] [address], [place] GFR/1.73 sq M.predicted among blacks MDRD (S/P/Bld) [Vol rate/Area] mL/min/{1.73_m2} Normal >60 The [facility] Comment on above: Order Comment: No: D o not add to previous draw Result Comment: Calc ulation may not be valid for patients over 70 years Performed By: #### 1 69, 70858 ####[facility] [place] [address], [place] GFR/1.73 sq M.predicted among non-blacks MDRD (S/P/Bld) [Vol rate/Area] mL/min/{1.73_m2} Normal >60 The [facility] Comment on above: Order Comment: No: D o not add to previous draw Result Comment: Calc ulation may not be valid for patients over 70 years Performed By: #### 1 69, 75350 ####[facility] [place] [address], [place] Glucose [Mass/Vol] 162 mg/dL High 70-100 [facility] Comment on above: Order Comment: No: D o not add to previous draw Performed By: #### 1 69, 55930 ####[facility] [place] [address], [place] Potassium [Moles/Vol] 3.9 mmol/L Normal 3.5-5.1 The [facility] Comment on above: Order Comment: No: D o not add to previous draw Performed By: #### 1 69, 95820 ####[facility] [place] [address], [facility] [[email or web address]] Sodium [Moles/Vol] 134 mmol/L Low 136-145 [facility] Comment on above: Order Comment: No: D o not add to previous draw Performed By: #### 1 69, 57031 ####[facility] [place] [address], [facility] [[email or web address]] Urea nitrogen [Mass/Vol] 7 mg/dL Normal 7-25 [facility] Comment on above: Order Comment: No: D o not add to previous draw Performed By: #### 1 69, 00838 ####[facility] [facility].[address] CBC COMPLETE BLOOD COUNTon 10-24-2020 Erythrocyte distribution width (RBC) [Ratio] 14.7 % Normal 11.5-15.0 [facility] Comment on above: Order Comment: No: D o not add to previous draw Performed By: #### 5 0608 ####[facility] [place] [address], [facility] [[email or web address]] Hematocrit (Bld) [Volume fraction] 32.6 % Low 39.0-50.0 [facility] Comment on above: Order Comment: No: D o not add to previous draw Performed By: #### 5 0608 ####[facility] [place] [address], [facility] [[email or web address]] Hemoglobin (Bld) [Mass/Vol] 10.8 g/dL Low 13.0-17.0 [facility] Comment on above: Order Comment: No: D o not add to previous draw Performed By: #### 5 0608 ####[facility] [place] [address], [facility] [[email or web address]] MCH (RBC) [Entitic mass] 31.4 pg Normal 27.0-33.0 [facility] Comment on above: Order Comment: No: D o not add to previous draw Performed By: #### 5 0608 ####[facility] [facility] [place] [address], [facility] [[email or web address]] MCHC (RBC) [Mass/Vol] 33.1 g/dL Normal 32.0-35.0 [facility] Comment on above: Order Comment: No: D o not add to previous draw Performed By: #### 5 0608 ####[facility] [facility] [place] [address], [facility] [[email or web address]] MCV (RBC) [Entitic vol] 94.8 fL Normal 82.0-98.0 [facility] Comment on above: Order Comment: No: D o not add to previous draw Performed By: #### 5 0608 ####[facility] [facility].[address] Nucleated RBC/100 WBC (Bld) [Ratio] 0 % Normal 0-0 [facility] Comment on above: Order Comment: No: D o not add to previous draw Performed By: #### 5 0608 ####[facility] [place] [address], [facility] [[email or web address]] PLAT CNT 147 10*3/uL Low 150-400 [facility] Comment on above: Order Comment: No: D o not add to previous draw Performed By: #### 5 0608 ####[facility] [place] [address], [facility] [[email or web address]] RBC (Bld) [#/Vol] 3.44 10*6/uL Low 4.20-5.70 [facility] Comment on above: Order Comment: No: D o not add to previous draw Performed By: #### 5 0608 ####[facility] [place] [address].[place] [address], [facility] [[email or web address]] WBC (Bld) [#/Vol] 13.68 10*3/uL High 4.00-10.60 [facility] Comment on above: Order Comment: No: D o not add to previous draw Performed By: #### 5 0608 ####[facility] [facility] [place] [address], [facility] [[email or web address]] MAGNESIUM BLOODon 08-23-2021 Magnesium [Mass/Vol] 1.6 mg/dL Low 1.9-2.7 [facility] Comment on above: Order Comment: No: D o not add to previous draw Performed By: #### 1 0070, 07129 ####[facility] [facility] [place] [address], [facility] [[email or web address]] POC GLUCOSE LABon 08-23-2021 Glucose [Mass/Vol] 156 mg/dL High 70-100 [facility] Comment on above: Performed By: #### 8 5499 ####[facility] [facility] [place] [address], [facility] [[email or web address]] Glucose [Mass/Vol] 111 mg/dL High 70-100 [facility] Comment on above: Performed By: #### 8 5499 ####[facility] [facility] [place] [address], [facility] [[email or web address]] Glucose [Mass/Vol] 181 mg/dL High 70-100 [facility] Comment on above: Performed By: #### 8 5499 ####[facility] [facility] [place] [address], [facility] [[email or web address]] Glucose [Mass/Vol] 167 mg/dL High 70-100 [facility] Comment on above: Performed By: #### 8 5499 ####[facility] [facility].[address] *C DIFF DNA AMPLIFICATIONon 08-22-2021 *C DIFF DNA AMPLIFICATION Clinical Report: (D) Specimen: [email or web address] Collected: 08/22/2021 16:41 Status: Final Last Updated: 08/22/2021 18:57 (1) No: Do not add to previous draw CDT DNA: (Final) Negative Normal [facility] Comment on above: Order Comment: No: D o not add to previous draw Performed By: #### 3 0622 ####[facility] [place] [address], [facility] [[email or web address]] BASIC METABOLIC PANELon 12-2 Calcium [Mass/Vol] 8.2 mg/dL Low 8.6-10.3 [facility] Comment on above: Order Comment: No: D o not add to previous draw Performed By: #### 1 0, 12396 ####[facility] [facility] [place] [address], [facility] [[email or web address]] Chloride [Moles/Vol] 104 mmol/L Normal 98-107 [facility] Comment on above: Order Comment: No: D o not add to previous draw Performed By: #### 1 69, 77826 ####[facility] [place] [address], [facility] [[email or web address]] CO2 [Moles/Vol] 21 mmol/L Normal 21-31 [facility] Comment on above: Order Comment: No: D o not add to previous draw Performed By: #### 1 69, 54495 ####[facility] [facility] [place] [address], [facility] [[email or web address]] Creatinine [Mass/Vol] 0.92 mg/dL Normal 0.70-1.30 [facility] Comment on above: Order Comment: No: D o not add to previous draw Performed By: #### 1 69, 12348 ####[facility] [place] [address], [facility] [[email or web address]] GFR/1.73 sq M.predicted among blacks MDRD (S/P/Bld) [Vol rate/Area] mL/min/{1.73_m2} Normal >60 [facility] Comment on above: Order Comment: No: D o not add to previous draw Result Comment: Calc ulation may not be valid for patients over 70 years Performed By: #### 1 69, 61483 ####[facility] [place] [address], [facility] [[email or web address]] GFR/1.73 sq M.predicted among non-blacks MDRD (S/P/Bld) [Vol rate/Area] mL/min/{1.73_m2} Normal >60 [facility] Comment on above: Order Comment: No: D o not add to previous draw Result Comment: Calc ulation may not be valid for patients over 70 years Performed By: #### 1 69, 17544 ####[facility] [place] [address], [facility] [[email or web address]] Glucose [Mass/Vol] 179 mg/dL High 70-100 [facility] Comment on above: Order Comment: No: D o not add to previous draw Performed By: #### 1 69, 86775 ####[facility] [place] [address], [facility] [[email or web address]] Potassium [Moles/Vol] 4.4 mmol/L Normal 3.5-5.1 [facility] Comment on above: Order Comment: No: D o not add to previous draw Performed By: #### 1 69, 71620 ####[facility] [place] [address], [facility] [[email or web address]] Sodium [Moles/Vol] 134 mmol/L Low 136-145 [facility] Comment on above: Order Comment: No: D o not add to previous draw Performed By: #### 1 69, 56749 ####[facility] [place] [address], [facility] [[email or web address]] Urea nitrogen [Mass/Vol] 9 mg/dL Normal 7-25 [facility] Comment on above: Order Comment: No: D o not add to previous draw Performed By: #### 1 69, 29737 ####[facility] CBC COMPLETE BLOOD COUNTon 10-23-2020 Erythrocyte distribution width (RBC) [Ratio] 14.7 % Normal 11.5-15.0 [facility] Comment on above: Order Comment: No: D o not add to previous draw Performed By: #### 5 0608 ####[facility] Hematocrit (Bld) [Volume fraction] 36.8 % Low 39.0-50.0 [facility] Comment on above: Order Comment: No: D o not add to previous draw Performed By: #### 5 0608 ####[address] Hemoglobin (Bld) [Mass/Vol] 12.4 g/dL Low 13.0-17.0 [facility] Comment on above: Order Comment: No: D o not add to previous draw Performed By: #### 5 0608 ####[facility] MCH (RBC) [Entitic mass] 32.3 pg Normal 27.0-33.0 [facility] Comment on above: Order Comment: No: D o not add to previous draw Performed By: #### 5 0608 ####[facility] MCHC (RBC) [Mass/Vol] 33.7 g/dL Normal 32.0-35.0 [facility] Comment on above: Order Comment: No: D o not add to previous draw Performed By: #### 5 0608 ####[facility] [place] [address] MCV (RBC) [Entitic vol] 95.8 fL Normal 82.0-98.0 [facility] Comment on above: Order Comment: No: D o not add to previous draw Performed By: #### 5 0608 ####[facility] [place] [address], [facility] [[email or web address]] Nucleated RBC/100 WBC (Bld) [Ratio] 0 % Normal 0-0 [facility] Comment on above: Order Comment: No: D o not add to previous draw Performed By: #### 5 0608 ####[facility] [place] [address], [facility] [[email or web address]] PLAT CNT 176 10*3/uL Normal 150-400 [facility] Comment on above: Order Comment: No: D o not add to previous draw Performed By: #### 5 0608 ####[facility] [facility] [place] [address], [facility] [[email or web address]] RBC (Bld) [#/Vol] 3.84 10*6/uL Low 4.20-5.70 [facility] Comment on above: Order Comment: No: D o not add to previous draw Performed By: #### 5 0608 ####[facility] [facility] [place] [address], [facility] [[email or web address]] WBC (Bld) [#/Vol] 17.17 10*3/uL High 4.00-10.60 [facility] Comment on above: Order Comment: No: D o not add to previous draw Performed By: #### 5 0608 ####[facility] [facility].[address] ABDOMEN AND PELVIS W ORAL CONTRASTon 08-22-2021 CT ABDOMEN AND PELVIS W ORAL CONTRAST Normal [facility] Comment on above: Order Comment: Fluid Collection MAGNESIUM BLOODon 08-22-2021 Magnesium [Mass/Vol] 1.9 mg/dL Normal 1.9-2.7 [facility] Comment on above: Order Comment: No: D o not add to previous draw Performed By: #### 1 0070, 42367 ####[facility] POC GLUCOSE LABon 08-22-2021 Glucose [Mass/Vol] 119 mg/dL High 70-100 [facility] Comment on above: Performed By: #### 8 5499 ####[facility] [place] [address], [place] Glucose [Mass/Vol] 180 mg/dL High 70-100 [facility] Comment on above: Performed By: #### 8 5499 ####[facility] [place] [address], [place] Glucose [Mass/Vol] 146 mg/dL High 70-100 [facility] Comment on above: Performed By: #### 8 5499 ####[facility] [place] [address], [place] Glucose [Mass/Vol] 177 mg/dL High 70-100 [facility] Comment on above: Performed By: #### 8 5499 ####[facility] [facility] [place] [address], [facility] [[email or web address]] BASIC METABOLIC PANELon 12-2 0-2020 Calcium [Mass/Vol] 8.0 mg/dL Low 8.6-10.3 [facility] Comment on above: Order Comment: No: D o not add to previous draw Performed By: #### 0 0071, 66865, 56807 ####[facility] [facility] [place] [address], [place] Chloride [Moles/Vol] 102 mmol/L Normal 98-107 [facility] Comment on above: Order Comment: No: D o not add to previous draw Performed By: #### 0 0071, 32516, 57681 ####[facility] [place] [address], [place] CO2 [Moles/Vol] 23 mmol/L Normal 21-31 [facility] Comment on above: Order Comment: No: D o not add to previous draw Performed By: #### 0 0071, 75616, 89103 ####[facility] [place] [address], [facility] [[email or web address]] Creatinine [Mass/Vol] 0.89 mg/dL Normal 0.70-1.30 [facility] Comment on above: Order Comment: No: D o not add to previous draw Performed By: #### 0 0071, 47348, 17317 ####[facility] [place] [address], [facility] [[email or web address]] GFR/1.73 sq M.predicted among blacks MDRD (S/P/Bld) [Vol rate/Area] mL/min/{1.73_m2} Normal >60 [facility] Comment on above: Order Comment: No: D o not add to previous draw Result Comment: Calc ulation may not be valid for patients over 70 years Performed By: #### 0 0071, 15041, 88224 ####[facility] [facility] [place] [address], [facility] [[email or web address]] GFR/1.73 sq M.predicted among non-blacks MDRD (S/P/Bld) [Vol rate/Area] mL/min/{1.73_m2} Normal >60 [facility] Comment on above: Order Comment: No: D o not add to previous draw Result Comment: Calc ulation may not be valid for patients over 70 years Performed By: #### 0 0071, 21800, 40359 ####[facility] [place] [address], [facility] [[email or web address]] Glucose [Mass/Vol] 200 mg/dL High 70-100 [facility] Comment on above: Order Comment: No: D o not add to previous draw Performed By: #### 0 0071, 96534, 18878 ####[facility] [place] [address], [place] Potassium [Moles/Vol] 4.4 mmol/L Normal 3.5-5.1 [facility] Comment on above: Order Comment: No: D o not add to previous draw Performed By: #### 0 0071, 88333, 38782 ####[facility] [facility] [place] [address], [facility] [[email or web address]] Sodium [Moles/Vol] 132 mmol/L Low 136-145 [facility] Comment on above: Order Comment: No: D o not add to previous draw Performed By: #### 0 0071, 49524, 35163 ####[facility] [facility].[address] Urea nitrogen [Mass/Vol] 10 mg/dL Normal 7-25 [facility] Comment on above: Order Comment: No: D o not add to previous draw Performed By: #### 0 0071, 74519, 10565 ####[facility] [facility].[address] CBC COMPLETE BLOOD COUNTon 10-22-2020 Erythrocyte distribution width (RBC) [Ratio] 14.6 % Normal 11.5-15.0 [facility] Comment on above: Order Comment: No: D o not add to previous draw Performed By: #### 5 0608 ####[address] Hematocrit (Bld) [Volume fraction] 34.1 % Low 39.0-50.0 [facility] Comment on above: Order Comment: No: D o not add to previous draw Performed By: #### 5 0608 ####[facility] [facility].[address] Hemoglobin (Bld) [Mass/Vol] 11.5 g/dL Low 13.0-17.0 [facility] Comment on above: Order Comment: No: D o not add to previous draw Performed By: #### 5 0608 ####[address] [place] [address], [facility] [[email or web address]] MCH (RBC) [Entitic mass] 32.0 pg Normal 27.0-33.0 [facility] Comment on above: Order Comment: No: D o not add to previous draw Performed By: #### 5 0608 ####[facility] MCHC (RBC) [Mass/Vol] 33.7 g/dL Normal 32.0-35.0 [facility] Comment on above: Order Comment: No: D o not add to previous draw Performed By: #### 5 0608 ####[facility] MCV (RBC) [Entitic vol] 95.0 fL Normal 82.0-98.0 [facility] Comment on above: Order Comment: No: D o not add to previous draw Performed By: #### 5 0608 ####[place] [id number] Nucleated RBC/100 WBC (Bld) [Ratio] 0 % Normal 0-0 [facility] Comment on above: Order Comment: No: D o not add to previous draw Performed By: #### 5 0608 ####[place] [address] PLAT CNT 163 10*3/uL Normal 150-400 [facility] Comment on above: Order Comment: No: D o not add to previous draw Performed By: #### 5 0608 ####[facility] [place] [address], [facility] [[email or web address]] RBC (Bld) [#/Vol] 3.59 10*6/uL Low 4.20-5.70 [facility] Comment on above: Order Comment: No: D o not add to previous draw Performed By: #### 5 0608 ####[facility] [place] [address].[place] [address], [facility] [[email or web address]] WBC (Bld) [#/Vol] 17.22 10*3/uL High 4.00-10.60 [facility] Comment on above: Order Comment: No: D o not add to previous draw Performed By: #### 5 0608 ####[facility] [place] [address], [place] MAGNESIUM BLOODon 08-21-2021 Magnesium [Mass/Vol] 2.1 mg/dL Normal 1.9-2.7 [facility] Comment on above: Order Comment: No: D o not add to previous draw Performed By: #### 0 0071, 27723, 56738 ####[facility] [place] [address], [place] PHOSPHORUS BLOODon Phosphate [Mass/Vol] 3.4 mg/dL Normal 2.5-5.0 [facility] Comment on above: Order Comment: No: D o not add to previous draw Performed By: #### 0 0071, 49435, 70310 ####[facility] [place] [address], [place] POC GLUCOSE LABon 08-21-2021 Glucose [Mass/Vol] 122 mg/dL High 70-100 [facility] Comment on above: Performed By: #### 8 5499 ####[facility] [place] [address], [place] Glucose [Mass/Vol] 172 mg/dL High 70-100 [facility] Comment on above: Performed By: #### 8 5499 ####[facility] [place] [address], [place] Glucose [Mass/Vol] 120 mg/dL High 70-100 [facility] Comment on above: Performed By: #### 8 5499 ####[facility] [place] [address], [place] Glucose [Mass/Vol] 185 mg/dL High 70-100 [facility] Comment on above: Performed By: #### 8 5499 ####[facility] [place] [address], [facility] [[email or web address]] BASIC METABOLIC PANELon 08-02 Calcium [Mass/Vol] 7.9 mg/dL Low 8.6-10.3 [facility] Comment on above: Order Comment: No: D o not add to previous draw Performed By: #### 1 0, 52378, 91290 ####[facility] [place] [address], [facility] [[email or web address]] Chloride [Moles/Vol] 104 mmol/L Normal 98-107 [facility] Comment on above: Order Comment: No: D o not add to previous draw Performed By: #### 1 0, 70934, 66412 ####[facility] [place] [address], [place] CO2 [Moles/Vol] 22 mmol/L Normal 21-31 [facility] Comment on above: Order Comment: No: D o not add to previous draw Performed By: #### 1 0, 94917, 57888 ####[facility] [place] [address], [facility] [[email or web address]] Creatinine [Mass/Vol] 0.91 mg/dL Normal 0.70-1.30 [facility] Comment on above: Order Comment: No: D o not add to previous draw Performed By: #### 1 0, 52833, 28808 ####[facility] [place] [address], [place] GFR/1.73 sq M.predicted among blacks MDRD (S/P/Bld) [Vol rate/Area] mL/min/{1.73_m2} Normal >60 [facility] Comment on above: Order Comment: No: D o not add to previous draw Result Comment: Calc ulation may not be valid for patients over 70 years Performed By: #### 1 0, 65256, 88485 ####[facility] [place] [address], [facility] [[email or web address]] GFR/1.73 sq M.predicted among non-blacks MDRD (S/P/Bld) [Vol rate/Area] mL/min/{1.73_m2} Normal >60 [facility] Comment on above: Order Comment: No: D o not add to previous draw Result Comment: Calc ulation may not be valid for patients over 70 years Performed By: #### 1 0, 23878, 91259 ####[facility] [place] [address], [facility] [[email or web address]] Glucose [Mass/Vol] 154 mg/dL High 70-100 [facility] Comment on above: Order Comment: No: D o not add to previous draw Performed By: #### 1 0, 79972, 49643 ####[facility] [place] [address], [facility] [[email or web address]] Potassium [Moles/Vol] 4.4 mmol/L Normal 3.5-5.1 [facility] Comment on above: Order Comment: No: D o not add to previous draw Performed By: #### 1 0, 58504, 10809 ####[facility] [place] [address], [facility] [[email or web address]] Sodium [Moles/Vol] 133 mmol/L Low 136-145 [facility] Comment on above: Order Comment: No: D o not add to previous draw Performed By: #### 1 0, [id number], [id number] ####[facility] [place] [address], [place] Urea nitrogen [Mass/Vol] 14 mg/dL Normal 7-25 [facility] Comment on above: Order Comment: No: D o not add to previous draw Performed By: #### 1 0, [id number], [id number] ####[facility] [place] [address], [place] CBC COMPLETE BLOOD COUNTon 1 10-21-2020 Erythrocyte distribution width (RBC) [Ratio] 14.6 % Normal 11.5-15.0 [facility] [facility] Comment on above: Order Comment: No: D o not add to previous drawPT in restroom Performed By: #### 5 0608 ####[facility] Hematocrit (Bld) [Volume fraction] 33.2 % Low 39.0-50.0 [facility] Comment on above: Order Comment: No: D o not add to previous drawPT in restroom Performed By: #### 5 0608 ####[facility] Hemoglobin (Bld) [Mass/Vol] 11.2 g/dL Low 13.0-17.0 [facility] Comment on above: Order Comment: No: D o not add to previous drawPT in restroom Performed By: #### 5 0608 ####[facility] MCH (RBC) [Entitic mass] 32.2 pg Normal 27.0-33.0 [facility] Comment on above: Order Comment: No: D o not add to previous drawPT in restroom Performed By: #### 5 0608 ####[facility] MCHC (RBC) [Mass/Vol] 33.7 g/dL Normal 32.0-35.0 [facility] Comment on above: Order Comment: No: D o not add to previous drawPT in restroom Performed By: #### 5 0608 ####[facility] MCV (RBC) [Entitic vol] 95.4 fL Normal 82.0-98.0 [facility] Comment on above: Order Comment: No: D o not add to previous drawPT in restroom Performed By: #### 5 0608 ####[facility] [facility], [place] [address], [facility] [[email or web address]] Nucleated RBC/100 WBC (Bld) [Ratio] 0 % Normal 0-0 [facility] Comment on above: Order Comment: No: D o not add to previous drawPT in restroom Performed By: #### 5 0608 ####[facility] [facility], [place] [address], [facility] [[email or web address]] PLAT CNT 155 10*3/uL Normal 150-400 [facility] Comment on above: Order Comment: No: D o not add to previous drawPT in restroom Performed By: #### 5 0608 ####[facility]3000 [facility] [place] [address], [facility] [[email or web address]] RBC (Bld) [#/Vol] 3.48 10*6/uL Low 4.20-5.70 [facility] Comment on above: Order Comment: No: D o not add to previous drawPT in restroom Performed By: #### 5 0608 ####[facility] [facility] [place] [address], [facility] [[email or web address]] WBC (Bld) [#/Vol] 19.89 10*3/uL High 4.00-10.60 [facility] Comment on above: Order Comment: No: D o not add to previous drawPT in restroom Performed By: #### 5 0608 ####[facility] [facility] [place] [address], [facility] [[email or web address]] MAGNESIUM BLOODon 08-20-2021 Magnesium [Mass/Vol] 1.7 mg/dL Low 1.9-2.7 [facility] Comment on above: Order Comment: No: D o not add to previous draw Performed By: #### 1 0070, 49796, 74731 ####[facility] [facility] [place] [address], [facility] [[email or web address]] PHOSPHORUS BLOODon Phosphate [Mass/Vol] 3.1 mg/dL Normal 2.5-5.0 [facility] Comment on above: Order Comment: No: D o not add to previous draw Performed By: #### 1 0070, 24974, 39669 ####[facility] [place] [address], [place] POC GLUCOSE LABon 08-20-2021 Glucose [Mass/Vol] 160 mg/dL High 70-100 [facility] Comment on above: Performed By: #### 8 5499 ####[facility] [place] [address], [place] Glucose [Mass/Vol] 175 mg/dL High 70-100 [facility] Comment on above: Performed By: #### 8 5499 ####[facility] [place] [address], [place] Glucose [Mass/Vol] 159 mg/dL High 70-100 [facility] Comment on above: Performed By: #### 8 5499 ####[facility] [place] [address], [place] Glucose [Mass/Vol] 145 mg/dL High 70-100 [facility] Comment on above: Performed By: #### 8 5499 ####[facility] [place] [address], [place] Glucose [Mass/Vol] 152 mg/dL High 70-100 [facility] Comment on above: Performed By: #### 8 5499 ####[facility] [place] [address], [place] BASIC METABOLIC PANELon 08-02 Calcium [Mass/Vol] 8.3 mg/dL Low 8.6-10.3 [facility] Comment on above: Order Comment: No: D o not add to previous drawMissed Performed By: #### 4 1000, 41919, 33269 ####[facility] [place] [address], [facility] [[email or web address]] Chloride [Moles/Vol] 103 mmol/L Normal 98-107 [facility] Comment on above: Order Comment: No: D o not add to previous drawMissed Performed By: #### 4 1000, 78514, 44955 ####[facility] [place] [address], [place] CO2 [Moles/Vol] 23 mmol/L Normal 21-31 [facility] Comment on above: Order Comment: No: D o not add to previous drawMissed Performed By: #### 4 1000, 68625, 94033 ####[facility] [place] [address], [facility] [[email or web address]] Creatinine [Mass/Vol] 0.86 mg/dL Normal 0.70-1.30 [facility] Comment on above: Order Comment: No: D o not add to previous drawMissed Performed By: #### 4 1000, 39857, 97913 ####[facility] [place] [address], [facility] [[email or web address]] GFR/1.73 sq M.predicted among blacks MDRD (S/P/Bld) [Vol rate/Area] mL/min/{1.73_m2} Normal >60 [facility] Comment on above: Order Comment: No: D o not add to previous drawMissed Result Comment: Calc ulation may not be valid for patients over 70 years Performed By: #### 4 1000, 97043, 89898 ####[facility] [place] [address], [facility] [[email or web address]] GFR/1.73 sq M.predicted among non-blacks MDRD (S/P/Bld) [Vol rate/Area] mL/min/{1.73_m2} Normal >60 [facility] Comment on above: Order Comment: No: D o not add to previous drawMissed Result Comment: Calc ulation may not be valid for patients over 70 years Performed By: #### 4 1000, 39260, 43113 ####[facility] [place] [address], [facility] [[email or web address]] Glucose [Mass/Vol] 176 mg/dL High 70-100 [facility] Comment on above: Order Comment: No: D o not add to previous drawMissed Performed By: #### 4 1000, 48875, 54626 ####[facility] [place] [address], [place] Potassium [Moles/Vol] 4.8 mmol/L Normal 3.5-5.1 [facility] Comment on above: Order Comment: No: D o not add to previous drawMissed Performed By: #### 4 1000, 42007, 67580 ####[facility] [place] [address], [facility] [[email or web address]] Sodium [Moles/Vol] 132 mmol/L Low 136-145 [facility] Comment on above: Order Comment: No: D o not add to previous drawMissed Performed By: #### 4 999, 86822, 65031 ####[facility] [facility] [place] [address], [facility] [[email or web address]] Urea nitrogen [Mass/Vol] 16 mg/dL Normal 7-25 [facility] Comment on above: Order Comment: No: D o not add to previous drawMissed Performed By: #### 4 999, 98003, 24187 ####[facility] [place] [address], [place] CBC COMPLETE BLOOD COUNTon 10-20-2020 Erythrocyte distribution width (RBC) [Ratio] 14.6 % Normal 11.5-15.0 [facility] Comment on above: Order Comment: No: D o not add to previous drawMissed Performed By: #### 5 0608 ####[facility] [place] [address], [place] Hematocrit (Bld) [Volume fraction] 38.2 % Low 39.0-50.0 [facility] Comment on above: Order Comment: No: D o not add to previous drawMissed Performed By: #### 5 0608 ####[facility] Hemoglobin (Bld) [Mass/Vol] 12.4 g/dL Low 13.0-17.0 [facility] Comment on above: Order Comment: No: D o not add to previous drawMissed Performed By: #### 5 0608 ####[address] MCH (RBC) [Entitic mass] 31.9 pg Normal 27.0-33.0 [facility] Comment on above: Order Comment: No: D o not add to previous drawMissed Performed By: #### 5 0608 ####[facility] MCHC (RBC) [Mass/Vol] 32.5 g/dL Normal 32.0-35.0 [facility] Comment on above: Order Comment: No: D o not add to previous drawMissed Performed By: #### 5 0608 ####[address] MCV (RBC) [Entitic vol] 98.2 fL High 82.0-98.0 [facility] Comment on above: Order Comment: No: D o not add to previous drawMissed Performed By: #### 5 0608 ####[place] [id number] Nucleated RBC/100 WBC (Bld) [Ratio] 0 % Normal 0-0 [facility] Comment on above: Order Comment: No: D o not add to previous drawMissed Performed By: #### 5 0608 ####[facility] [place] [address], [facility] [[email or web address]] PLAT CNT 162 10*3/uL Normal 150-400 [facility] Comment on above: Order Comment: No: D o not add to previous drawMissed Performed By: #### 5 0608 ####[facility] [place] [address], [facility] [[email or web address]] RBC (Bld) [#/Vol] 3.89 10*6/uL Low 4.20-5.70 [facility] Comment on above: Order Comment: No: D o not add to previous drawMissed Performed By: #### 5 0608 ####[facility] [facility] [place] [address], [facility] [[email or web address]] WBC (Bld) [#/Vol] 26.86 10*3/uL High 4.00-10.60 [facility] Comment on above: Order Comment: No: D o not add to previous drawMissed Performed By: #### 5 0608 ####[facility]3000 [facility].[address] ABDOMEN AND PELVIS WO CON TRASTon 08-19-2021 CT ABDOMEN AND PELVIS WO CONTRAST Normal The [facility] Comment on above: Order Comment: Other , s/p Colostomy Reversal. Concerns for anastomotic leak. Please use Rectal Contrast. MAGNESIUM BLOODon 08-19-2021 Magnesium [Mass/Vol] 2.2 mg/dL Normal 1.9-2.7 [facility] Comment on above: Order Comment: No: D o not add to previous drawMissed Performed By: #### 4 1000, 59013, 81897 ####[facility] [facility] [place] [address], [facility] [[email or web address]] PHOSPHORUS BLOODon Phosphate [Mass/Vol] 3.4 mg/dL Normal 2.5-5.0 [facility] Comment on above: Order Comment: No: D o not add to previous drawMissed Performed By: #### 4 1000, 57282, 33552 ####[facility] [place] [address], [place] POC GLUCOSE LABon 08-19-2021 Glucose [Mass/Vol] 146 mg/dL High 70-100 [facility] Comment on above: Performed By: #### 8 5499 ####[facility] [place] [address], [place] Glucose [Mass/Vol] 122 mg/dL High 70-100 [facility] Comment on above: Performed By: #### 8 5499 ####[facility] [place] [address], [place] Glucose [Mass/Vol] 108 mg/dL High 70-100 [facility] Comment on above: Performed By: #### 8 5499 ####[facility] [place] [address], [place] Glucose [Mass/Vol] 153 mg/dL High 70-100 [facility] Comment on above: Performed By: #### 8 5499 ####[facility] [facility] [place] [address], [place] BASIC METABOLIC PANELon 08-02 Calcium [Mass/Vol] 8.5 mg/dL Low 8.6-10.3 [facility] Comment on above: Order Comment: No: D o not add to previous draw Performed By: #### 1 0070, 04840, 57040 ####[facility] [place] [address], [place] Chloride [Moles/Vol] 100 mmol/L Normal 98-107 [facility] Comment on above: Order Comment: No: D o not add to previous draw Performed By: #### 1 0070, 05802, 58082 ####[facility] [place] [address], [place] CO2 [Moles/Vol] 26 mmol/L Normal 21-31 [facility] Comment on above: Order Comment: No: D o not add to previous draw Performed By: #### 1 0070, 49848, 66160 ####[facility] [place] [address], [facility] [[email or web address]] Creatinine [Mass/Vol] 0.73 mg/dL Normal 0.70-1.30 [facility] Comment on above: Order Comment: No: D o not add to previous draw Performed By: #### 1 0070, 53754, 30050 ####[facility] [place] [address], [facility] [[email or web address]] GFR/1.73 sq M.predicted among blacks MDRD (S/P/Bld) [Vol rate/Area] mL/min/{1.73_m2} Normal >60 [facility] Comment on above: Order Comment: No: D o not add to previous draw Result Comment: Calc ulation may not be valid for patients over 70 years Performed By: #### 1 0070, 60859, 16341 ####[facility] [facility] [place] [address], [facility] [[email or web address]] GFR/1.73 sq M.predicted among non-blacks MDRD (S/P/Bld) [Vol rate/Area] mL/min/{1.73_m2} Normal >60 [facility] Comment on above: Order Comment: No: D o not add to previous draw Result Comment: Calc ulation may not be valid for patients over 70 years Performed By: #### 1 0070, 15679, 43515 ####[facility] [place] [address], [facility] [[email or web address]] Glucose [Mass/Vol] 168 mg/dL High 70-100 [facility] Comment on above: Order Comment: No: D o not add to previous draw Performed By: #### 1 0070, 60099, 55529 ####[facility] Potassium [Moles/Vol] 4.3 mmol/L Normal 3.5-5.1 [facility] Comment on above: Order Comment: No: D o not add to previous draw Performed By: #### 1 0070, 69966, 15821 ####[facility] [facility] [place] [address], [facility] [[email or web address]] Sodium [Moles/Vol] 135 mmol/L Low 136-145 [facility] Comment on above: Order Comment: No: D o not add to previous draw Performed By: #### 1 0, 78832, 40758 ####[facility] [facility].[address] Urea nitrogen [Mass/Vol] 15 mg/dL Normal 7-25 [facility] Comment on above: Order Comment: No: D o not add to previous draw Performed By: #### 1 0, 23088, 86045 ####[facility] CBC W/DIFFon 08-18-2021 ABS NEUTROPHILS 14.1 10*3/uL High 1.6-7.6 The [facility] Comment on above: Order Comment: No: D o not add to previous draw Performed By: #### 5 3 ####[facility] [facility].[address] Basophils (Bld) [#/Vol] 0.0 10*3/uL Normal 0.0-0.2 [facility] Comment on above: Order Comment: No: D o not add to previous draw Performed By: #### 5 3 ####[facility] [facility] [place] [address], [facility] [[email or web address]] Basophils/100 WBC (Bld) 0.0 % Normal 0.0-1.0 [facility] Comment on above: Order Comment: No: D o not add to previous draw Performed By: #### 5 3 ####[facility] [facility] [place] [address], [facility] [[email or web address]] Eosinophils (Bld) [#/Vol] 0.3 10*3/uL Normal 0.0-0.5 [facility] Comment on above: Order Comment: No: D o not add to previous draw Performed By: #### 5 0103 ####[facility] [place] [address], [facility] [[email or web address]] Eosinophils/100 WBC (Bld) 1.0 % Normal 0.0-6.0 [facility] Comment on above: Order Comment: No: D o not add to previous draw Performed By: #### 5 0103 ####[facility] Erythrocyte distribution width (RBC) [Ratio] 14.5 % Normal 11.5-15.0 [facility] Comment on above: Order Comment: No: D o not add to previous draw Performed By: #### 5 3 ####[facility] [facility] [place] [address], [facility] [[email or web address]] GIANT PLATELETS Present Normal The [facility] Comment on above: Order Comment: No: D o not add to previous draw Performed By: #### 5 3 ####[facility] [facility].[address] Hematocrit (Bld) [Volume fraction] 38.5 % Low 39.0-50.0 [facility] Comment on above: Order Comment: No: D o not add to previous draw Performed By: #### 5 0103 ####[facility] [place] [address], [facility] [[email or web address]] Hemoglobin (Bld) [Mass/Vol] 13.0 g/dL Normal 13.0-17.0 [facility] Comment on above: Order Comment: No: D o not add to previous draw Performed By: #### 5 0103 ####[facility] Lymphocytes (Bld) [#/Vol] 10.6 10*3/uL High 1.2-4.0 [facility] Comment on above: Order Comment: No: D o not add to previous draw Performed By: #### 5 3 ####[facility] Lymphocytes/100 WBC (Bld) 40.4 % Normal 20.0-45.0 [facility] Comment on above: Order Comment: No: D o not add to previous draw Performed By: #### 5 3 ####[place] [id number] MCH (RBC) [Entitic mass] 32.2 pg Normal 27.0-33.0 [facility] Comment on above: Order Comment: No: D o not add to previous draw Performed By: #### 5 3 ####[facility] MCHC (RBC) [Mass/Vol] 33.8 g/dL Normal 32.0-35.0 [facility] Comment on above: Order Comment: No: D o not add to previous draw Performed By: #### 5 102 ####[facility] MCV (RBC) [Entitic vol] 95.3 fL Normal 82.0-98.0 [facility] Comment on above: Order Comment: No: D o not add to previous draw Performed By: #### 5 3 ####[facility] [place] [address], [facility] [[email or web address]] Monocytes (Bld) [#/Vol] 1.3 10*3/uL High 0.1-1.0 [facility] Comment on above: Order Comment: No: D o not add to previous draw Performed By: #### 5 0103 ####[facility] [place] [address], [facility] [[email or web address]] MONOS 5.1 % Normal 5.0-12.0 [facility] Comment on above: Order Comment: No: D o not add to previous draw Performed By: #### 5 0103 ####[facility] [place] [address], [facility] [[email or web address]] Neutrophils/100 WBC (Bld) 53.5 % Normal 40.0-72.0 [facility] Comment on above: Order Comment: No: D o not add to previous draw Performed By: #### 5 0103 ####[facility] [facility] [place] [address], [facility] [[email or web address]] Nucleated RBC/100 WBC (Bld) [Ratio] 0 % Normal 0-0 [facility] Comment on above: Order Comment: No: D o not add to previous draw Performed By: #### 5 0103 ####[facility] [facility] [place] [address], [facility] [[email or web address]] PLAT CNT 173 10*3/uL Normal 150-400 [facility] Comment on above: Order Comment: No: D o not add to previous draw Performed By: #### 5 0103 ####[facility] [facility] [place] [address], [facility] [[email or web address]] RBC (Bld) [#/Vol] 4.04 10*6/uL Low 4.20-5.70 The [facility] Comment on above: Order Comment: No: D o not add to previous draw Performed By: #### 5 0103 ####[facility] [place] [address], [facility] [[email or web address]] SMUDGE CELLS MANY Normal The [facility] Comment on above: Order Comment: No: D o not add to previous draw Result Comment: Resu lt changed by [email or web address] on 08/18/2021 06:13. The previous value wasPresent. Performed By: #### 5 0103 ####[facility] [place] [address], [facility] [[email or web address]] WBC (Bld) [#/Vol] 26.29 10*3/uL High 4.00-10.60 [facility] Comment on above: Order Comment: No: D o not add to previous draw Performed By: #### 5 0103 ####[facility] [place] [address], [place] MAGNESIUM BLOODon 08-18-2021 Magnesium [Mass/Vol] 1.9 mg/dL Normal 1.9-2.7 [facility] Comment on above: Order Comment: No: D o not add to previous draw Performed By: #### 1 0070, 35726, 92628 ####[facility] [place] [address], [place] PHOSPHORUS BLOODon Phosphate [Mass/Vol] 3.6 mg/dL Normal 2.5-5.0 [facility] Comment on above: Order Comment: No: D o not add to previous draw Performed By: #### 1 0070, 07968, 52134 ####[facility] [place] [address], [place] POC GLUCOSE LABon 08-18-2021 Glucose [Mass/Vol] 141 mg/dL High 70-100 [facility] Comment on above: Performed By: #### 8 8279 ####[facility] [place] [address], [place] Glucose [Mass/Vol] 187 mg/dL High 70-100 [facility] Comment on above: Performed By: #### 8 7699 ####[facility] [place] [address], [place] Glucose [Mass/Vol] 168 mg/dL High 70-100 [facility] Comment on above: Performed By: #### 8 8649 ####[facility] [place] [address], [place] Glucose [Mass/Vol] 183 mg/dL High 70-100 [facility] Comment on above: Performed By: #### 8 5499 ####[facility] [place] [address], [place] Glucose [Mass/Vol] 149 mg/dL High 70-100 [facility] Comment on above: Performed By: #### 8 5499 ####[facility] [place] [address], [place] Glucose [Mass/Vol] 221 mg/dL High 70-100 [facility] Comment on above: Performed By: #### 8 [id number] ####[facility] [place] [address], [place] AMMONIA BLOODon 08-17-2021 Ammonia (P) [Moles/Vol] 10 umol/L Low 16-53 [facility] Comment on above: Order Comment: Yes: Add to Previous draw if able Performed By: #### 2 [id number] ####[facility] [place] [address], [place] BASIC METABOLIC PANELon 08-02 Calcium [Mass/Vol] 8.6 mg/dL Normal 8.6-10.3 [facility] [facility] Comment on above: Order Comment: No: D o not add to previous draw Performed By: #### 0 0071 ####[facility] [place] [address], [place] Chloride [Moles/Vol] 101 mmol/L Normal 98-107 [facility] Comment on above: Order Comment: No: D o not add to previous draw Performed By: #### 0 0071 ####[facility] [place] [address], [place] CO2 [Moles/Vol] 27 mmol/L Normal 21-31 The [facility] Comment on above: Order Comment: No: D o not add to previous draw Performed By: #### 0 0071 ####[facility] [facility] [place] [address], [facility] [[email or web address]] Creatinine [Mass/Vol] 0.75 mg/dL Normal 0.70-1.30 [facility] Comment on above: Order Comment: No: D o not add to previous draw Performed By: #### 0 0071 ####[facility] [facility] [place] [address], [facility] [[email or web address]] GFR/1.73 sq M.predicted among blacks MDRD (S/P/Bld) [Vol rate/Area] mL/min/{1.73_m2} Normal >60 [facility] Comment on above: Order Comment: No: D o not add to previous draw Result Comment: Calc ulation may not be valid for patients over 70 years Performed By: #### 0 0071 ####[facility] [facility] [place] [address], [facility] [[email or web address]] GFR/1.73 sq M.predicted among non-blacks MDRD (S/P/Bld) [Vol rate/Area] mL/min/{1.73_m2} Normal >60 [facility] Comment on above: Order Comment: No: D o not add to previous draw Result Comment: Calc ulation may not be valid for patients over 70 years Performed By: #### 0 0071 ####[facility] [facility] [place] [address], [place] Glucose [Mass/Vol] 129 mg/dL High 70-100 [facility] Comment on above: Order Comment: No: D o not add to previous draw Performed By: #### 0 0071 ####[facility] [facility] [place] [address], [place] Potassium [Moles/Vol] 4.0 mmol/L Normal 3.5-5.1 [facility] Comment on above: Order Comment: No: D o not add to previous draw Performed By: #### 0 0071 ####[facility] [place] [address], [facility] [[email or web address]] Sodium [Moles/Vol] 135 mmol/L Low 136-145 [facility] Comment on above: Order Comment: No: D o not add to previous draw Performed By: #### 0 0071 ####[facility] [facility].[address] Urea nitrogen [Mass/Vol] 11 mg/dL Normal 7-25 [facility] Comment on above: Order Comment: No: D o not add to previous draw Performed By: #### 0 0071 ####[facility] [facility].[address] CBC COMPLETE BLOOD COUNTon 10-18-2020 Erythrocyte distribution width (RBC) [Ratio] 14.2 % Normal 11.5-15.0 [facility] Comment on above: Order Comment: No: D o not add to previous draw Performed By: #### 5 0608 ####[facility] Hematocrit (Bld) [Volume fraction] 38.8 % Low 39.0-50.0 [facility] Comment on above: Order Comment: No: D o not add to previous draw Performed By: #### 5 0608 ####[facility] [facility] [place] [address], [facility] [[email or web address]] Hemoglobin (Bld) [Mass/Vol] 13.4 g/dL Normal 13.0-17.0 [facility] Comment on above: Order Comment: No: D o not add to previous draw Performed By: #### 5 0608 ####[facility] [place] [address], [facility] [[email or web address]] MCH (RBC) [Entitic mass] 32.2 pg Normal 27.0-33.0 [facility] Comment on above: Order Comment: No: D o not add to previous draw Performed By: #### 5 0608 ####[facility] MCHC (RBC) [Mass/Vol] 34.5 g/dL Normal 32.0-35.0 [facility] Comment on above: Order Comment: No: D o not add to previous draw Performed By: #### 5 0608 ####[facility] MCV (RBC) [Entitic vol] 93.3 fL Normal 82.0-98.0 [facility] Comment on above: Order Comment: No: D o not add to previous draw Performed By: #### 5 0608 ####[address] Nucleated RBC/100 WBC (Bld) [Ratio] 0 % Normal 0-0 [facility] Comment on above: Order Comment: No: D o not add to previous draw Performed By: #### 5 0608 ####[place] [id number] [address] PLAT CNT 168 10*3/uL Normal 150-400 The [facility] Comment on above: Order Comment: No: D o not add to previous draw Performed By: #### 5 0608 ####[address] RBC (Bld) [#/Vol] 4.16 10*6/uL Low 4.20-5.70 The [facility] Comment on above: Order Comment: No: D o not add to previous draw Performed By: #### 5 0608 ####[place] [address], [facility] [[email or web address]] WBC (Bld) [#/Vol] 26.64 10*3/uL High 4.00-10.60 [facility] Comment on above: Order Comment: No: D o not add to previous draw Performed By: #### 5 0608 ####[facility] [place] [address], [place] LACTATE BLOODon 08-17-2021 Lactate [Moles/Vol] 0.7 mmol/L Normal .5-2.2 [facility] Comment on above: Order Comment: Yes: Add to Previous draw if able Performed By: #### 1 0054 ####[facility] [place] [address], [place] POC GLUCOSE LABon 08-17-2021 Glucose [Mass/Vol] 146 mg/dL High 70-100 [facility] Comment on above: Performed By: #### 8 5499 ####[facility] [place] [address], [place] Glucose [Mass/Vol] 144 mg/dL High 70-100 [facility] Comment on above: Performed By: #### 8 5499 ####[facility] [place] [address], [place] Glucose [Mass/Vol] 150 mg/dL High 70-100 [facility] Comment on above: Performed By: #### 8 5499 ####[facility] [place] [address], [place] Glucose [Mass/Vol] 126 mg/dL High 70-100 [facility] Comment on above: Performed By: #### 8 5499 ####[facility] [place] [address], [place] Glucose [Mass/Vol] 166 mg/dL High 70-100 [facility] Comment on above: Performed By: #### 8 5499 ####[facility] [address], [place] Glucose [Mass/Vol] 141 mg/dL High 70-100 [facility] Comment on above: Performed By: #### 8 5499 ####[facility] [place] [address], [facility] [[email or web address]] BASIC METABOLIC PANELon 12-1 Calcium [Mass/Vol] 8.4 mg/dL Low 8.6-10.3 [facility] Comment on above: Order Comment: No: D o not add to previous draw Performed By: #### 0 0071 ####[facility] [facility] [place] [address], [facility] [[email or web address]] Chloride [Moles/Vol] 101 mmol/L Normal 98-107 [facility] Comment on above: Order Comment: No: D o not add to previous draw Performed By: #### 0 0071 ####[facility] [facility], [place] [address], [facility] [[email or web address]] CO2 [Moles/Vol] 27 mmol/L Normal 21-31 The [facility] Comment on above: Order Comment: No: D o not add to previous draw Performed By: #### 0 0071 ####[facility] [facility] [place] [address], [facility] [[email or web address]] Creatinine [Mass/Vol] 0.75 mg/dL Normal 0.70-1.30 [facility] Comment on above: Order Comment: No: D o not add to previous draw Performed By: #### 0 0071 ####[facility] [facility] [place] [address], [facility] [[email or web address]] GFR/1.73 sq M.predicted among blacks MDRD (S/P/Bld) [Vol rate/Area] mL/min/{1.73_m2} Normal >60 [facility] Comment on above: Order Comment: No: D o not add to previous draw Result Comment: Calc ulation may not be valid for patients over 70 years Performed By: #### 0 0071 ####[facility] [place] [address], [facility] [[email or web address]] GFR/1.73 sq M.predicted among non-blacks MDRD (S/P/Bld) [Vol rate/Area] mL/min/{1.73_m2} Normal >60 [facility] Comment on above: Order Comment: No: D o not add to previous draw Result Comment: Calc ulation may not be valid for patients over 70 years Performed By: #### 0 0071 ####[facility] [facility] [place] [address], [facility] [[email or web address]] Glucose [Mass/Vol] 146 mg/dL High 70-100 [facility] Comment on above: Order Comment: No: D o not add to previous draw Performed By: #### 0 0071 ####[facility] [facility] [place] [address], [facility] [[email or web address]] Potassium [Moles/Vol] 4.4 mmol/L Normal 3.5-5.1 [facility] Comment on above: Order Comment: No: D o not add to previous draw Performed By: #### 0 0071 ####[facility] [facility] [place] [address], [facility] [[email or web address]] Sodium [Moles/Vol] 135 mmol/L Low 136-145 [facility] Comment on above: Order Comment: No: D o not add to previous draw Performed By: #### 0 0071 ####[facility] [facility] [place] [address], [facility] [[email or web address]] Urea nitrogen [Mass/Vol] 11 mg/dL Normal 7-25 [facility] Comment on above: Order Comment: No: D o not add to previous draw Performed By: #### 0 0071 ####[facility] [facility] [place] [address], [facility] [[email or web address]] CBC COMPLETE BLOOD COUNTon 10-17-2020 Erythrocyte distribution width (RBC) [Ratio] 14.1 % Normal 11.5-15.0 [facility] Comment on above: Order Comment: No: D o not add to previous draw Performed By: #### 5 0608 ####[facility] [facility].[address] Hematocrit (Bld) [Volume fraction] 38.5 % Low 39.0-50.0 [facility] Comment on above: Order Comment: No: D o not add to previous draw Performed By: #### 5 0608 ####[facility] Hemoglobin (Bld) [Mass/Vol] 12.8 g/dL Low 13.0-17.0 [facility] Comment on above: Order Comment: No: D o not add to previous draw Performed By: #### 5 0608 ####[facility] MCH (RBC) [Entitic mass] 31.9 pg Normal 27.0-33.0 [facility] Comment on above: Order Comment: No: D o not add to previous draw Performed By: #### 5 0608 ####[facility] MCHC (RBC) [Mass/Vol] 33.2 g/dL Normal 32.0-35.0 [facility] Comment on above: Order Comment: No: D o not add to previous draw Performed By: #### 5 0608 ####[facility] [place] [address] MCV (RBC) [Entitic vol] 96.0 fL Normal 82.0-98.0 [facility] Comment on above: Order Comment: No: D o not add to previous draw Performed By: #### 5 0608 ####[facility] Nucleated RBC/100 WBC (Bld) [Ratio] 0 % Normal 0-0 [facility] Comment on above: Order Comment: No: D o not add to previous draw Performed By: #### 5 0608 ####[facility] [place] [address], [facility] [[email or web address]] PLAT CNT 142 10*3/uL Low 150-400 The [facility] Comment on above: Order Comment: No: D o not add to previous draw Performed By: #### 5 0608 ####[facility] [facility].[place] [id number], [facility] [[email or web address]] RBC (Bld) [#/Vol] 4.01 10*6/uL Low 4.20-5.70 The [facility] Comment on above: Order Comment: No: D o not add to previous draw Performed By: #### 5 0608 ####[facility] [facility] [place] [address], [facility] [[email or web address]] WBC (Bld) [#/Vol] 23.65 10*3/uL High 4.00-10.60 [facility] Comment on above: Order Comment: No: D o not add to previous draw Performed By: #### 5 0608 ####[facility] [facility] [place] [address], [facility] [[email or web address]] POC GLUCOSE LABon 08-16-2021 Glucose [Mass/Vol] 139 mg/dL High 70-100 [facility] Comment on above: Performed By: #### 8 5499 ####[facility] [facility].[place] [id number], [facility] [[email or web address]] Glucose [Mass/Vol] 131 mg/dL High 70-100 [facility] Comment on above: Performed By: #### 8 5499 ####[facility] [facility].[place] [id number], [facility] [[email or web address]] Glucose [Mass/Vol] 138 mg/dL High 70-100 [facility] Comment on above: Performed By: #### 8 5499 ####[facility] [place] [address], [place] Glucose [Mass/Vol] 149 mg/dL High 70-100 [facility] Comment on above: Performed By: #### 8 5499 ####[facility] [place] [address], [place] Glucose [Mass/Vol] 136 mg/dL High 70-100 [facility] Comment on above: Performed By: #### 8 5499 ####[facility] [place] [address], [place] BASIC METABOLIC PANELon 12- Calcium [Mass/Vol] 8.0 mg/dL Low 8.6-10.3 [facility] Comment on above: Order Comment: No: D o not add to previous draw Performed By: #### 1 0, 25854, 79466 ####[facility] [place] [address], [place] Chloride [Moles/Vol] 102 mmol/L Normal 98-107 [facility] Comment on above: Order Comment: No: D o not add to previous draw Performed By: #### 1 0, 10613, 68897 ####[facility] [place] [address], [place] CO2 [Moles/Vol] 28 mmol/L Normal 21-31 [facility] Comment on above: Order Comment: No: D o not add to previous draw Performed By: #### 1 0, 91702, 37250 ####[facility] [place] [address], [place] Creatinine [Mass/Vol] 0.71 mg/dL Normal 0.70-1.30 [facility] Comment on above: Order Comment: No: D o not add to previous draw Performed By: #### 1 0, 86307, 99473 ####[facility] [place] [address], [facility] [[email or web address]] GFR/1.73 sq M.predicted among blacks MDRD (S/P/Bld) [Vol rate/Area] mL/min/{1.73_m2} Normal >60 [facility] Comment on above: Order Comment: No: D o not add to previous draw Result Comment: Calc ulation may not be valid for patients over 70 years Performed By: #### 1 0, 63428, 04226 ####[facility] [place] [address], [facility] [[email or web address]] GFR/1.73 sq M.predicted among non-blacks MDRD (S/P/Bld) [Vol rate/Area] mL/min/{1.73_m2} Normal >60 [facility] Comment on above: Order Comment: No: D o not add to previous draw Result Comment: Calc ulation may not be valid for patients over 70 years Performed By: #### 1 0, 87291, 29959 ####[facility] [facility] [place] [address], [facility] [[email or web address]] Glucose [Mass/Vol] 163 mg/dL High 70-100 [facility] Comment on above: Order Comment: No: D o not add to previous draw Performed By: #### 1 69, 27136, 48763 ####[facility] [facility] [place] [address], [facility] [[email or web address]] Potassium [Moles/Vol] 4.0 mmol/L Normal 3.5-5.1 [facility] Comment on above: Order Comment: No: D o not add to previous draw Performed By: #### 1 0, 19630, 99083 ####[facility] [facility] [place] [address], [facility] [[email or web address]] Sodium [Moles/Vol] 135 mmol/L Low 136-145 [facility] Comment on above: Order Comment: No: D o not add to previous draw Performed By: #### 1 0, 78855, 93999 ####[facility] Urea nitrogen [Mass/Vol] 10 mg/dL Normal 7-25 [facility] Comment on above: Order Comment: No: D o not add to previous draw Performed By: #### 1 0070, 18884, 83108 ####[facility] [facility] [place].[address] CBC COMPLETE BLOOD COUNTon 1 10-16-2020 Erythrocyte distribution width (RBC) [Ratio] 14.3 % Normal 11.5-15.0 [facility] Comment on above: Order Comment: No: D o not add to previous draw Performed By: #### 5 0608 ####[facility] [facility].[address] Hematocrit (Bld) [Volume fraction] 37.2 % Low 39.0-50.0 [facility] Comment on above: Order Comment: No: D o not add to previous draw Performed By: #### 5 0608 ####[facility] [facility] [place].[address] Hemoglobin (Bld) [Mass/Vol] 12.2 g/dL Low 13.0-17.0 [facility] Comment on above: Order Comment: No: D o not add to previous draw Performed By: #### 5 0608 ####[facility] [facility] [place] [address], [facility] [[email or web address]] MCH (RBC) [Entitic mass] 31.9 pg Normal 27.0-33.0 [facility] Comment on above: Order Comment: No: D o not add to previous draw Performed By: #### 5 0608 ####[facility] [place] [address], [facility] [[email or web address]] MCHC (RBC) [Mass/Vol] 32.8 g/dL Normal 32.0-35.0 [facility] Comment on above: Order Comment: No: D o not add to previous draw Performed By: #### 5 0608 ####[facility] [place] [address], [facility] [[email or web address]] MCV (RBC) [Entitic vol] 97.1 fL Normal 82.0-98.0 [facility] Comment on above: Order Comment: No: D o not add to previous draw Performed By: #### 5 0608 ####[facility] [facility] [place] [address], [facility] [[email or web address]] Nucleated RBC/100 WBC (Bld) [Ratio] 0 % Normal 0-0 [facility] Comment on above: Order Comment: No: D o not add to previous draw Performed By: #### 5 0608 ####[facility] [facility] [place] [address], [facility] [[email or web address]] PLAT CNT 156 10*3/uL Normal 150-400 The [facility] Comment on above: Order Comment: No: D o not add to previous draw Performed By: #### 5 0608 ####[place] [address] [facility] [place] [address], [facility] [[email or web address]] RBC (Bld) [#/Vol] 3.83 10*6/uL Low 4.20-5.70 The [facility] Comment on above: Order Comment: No: D o not add to previous draw Performed By: #### 5 0608 ####[facility] [facility] [place] [address], [facility] [[email or web address]] WBC (Bld) [#/Vol] 25.37 10*3/uL High 4.00-10.60 [facility] Comment on above: Order Comment: No: D o not add to previous draw Performed By: #### 5 0608 ####[facility] [facility] [place] [address], [facility] [[email or web address]] MAGNESIUM BLOODon 08-15-2021 Magnesium [Mass/Vol] 2.0 mg/dL Normal 1.9-2.7 [facility] Comment on above: Order Comment: No: D o not add to previous draw Performed By: #### 1 0070, 11856, 77323 ####[facility] [place] [address], [place] PHOSPHORUS BLOODon Phosphate [Mass/Vol] 2.6 mg/dL Normal 2.5-5.0 [facility] Comment on above: Order Comment: No: D o not add to previous draw Performed By: #### 1 0070, 62931, 78440 ####[facility] [place] [address], [place] POC GLUCOSE LABon 08-15-2021 Glucose [Mass/Vol] 154 mg/dL High 70-100 [facility] Comment on above: Performed By: #### 8 5499 ####[facility] [place] [address], [place] Glucose [Mass/Vol] 142 mg/dL High 70-100 [facility] Comment on above: Performed By: #### 8 5499 ####[facility] [place] [address], [place] Glucose [Mass/Vol] 162 mg/dL High 70-100 The [facility] Comment on above: Performed By: #### 8 5499 ####[facility] [place] [address], [place] Glucose [Mass/Vol] 149 mg/dL High 70-100 [facility] Comment on above: Performed By: #### 8 5499 ####[facility] [address], [place] Glucose [Mass/Vol] 179 mg/dL High 70-100 [facility] Comment on above: Performed By: #### 8 5499 ####[facility] [place] [address], [place] BASIC METABOLIC PANELon - Calcium [Mass/Vol] 8.2 mg/dL Low 8.6-10.3 [facility] Comment on above: Order Comment: No: D o not add to previous draw Performed By: #### 4 1000, 55164, 19438 ####[facility] [place] [address], [facility] [[email or web address]] Chloride [Moles/Vol] 101 mmol/L Normal 98-107 The [facility] Comment on above: Order Comment: No: D o not add to previous draw Performed By: #### 4 1000, 81444, 06462 ####[facility] [place] [address], [facility] [[email or web address]] CO2 [Moles/Vol] 31 mmol/L Normal 21-31 [facility] Comment on above: Order Comment: No: D o not add to previous draw Performed By: #### 4 1000, [id number], [id number] ####[facility] [place] [address], [facility] [[email or web address]] Creatinine [Mass/Vol] 0.85 mg/dL Normal 0.70-1.30 [facility] Comment on above: Order Comment: No: D o not add to previous draw Performed By: #### 4 1000, 00009, [id number] ####[facility] [place] [address], [facility] [[email or web address]] GFR/1.73 sq M.predicted among blacks MDRD (S/P/Bld) [Vol rate/Area] mL/min/{1.73_m2} Normal >60 [facility] Comment on above: Order Comment: No: D o not add to previous draw Result Comment: Calc ulation may not be valid for patients over 70 years Performed By: #### 4 1000, 23984, 24154 ####[facility] [place] [address], [facility] [[email or web address]] GFR/1.73 sq M.predicted among non-blacks MDRD (S/P/Bld) [Vol rate/Area] mL/min/{1.73_m2} Normal >60 [facility] Comment on above: Order Comment: No: D o not add to previous draw Result Comment: Calc ulation may not be valid for patients over 70 years Performed By: #### 4 1000, 64362, 61452 ####[facility] [place] [address], [place] Glucose [Mass/Vol] 158 mg/dL High 70-100 [facility] Comment on above: Order Comment: No: D o not add to previous draw Performed By: #### 4 1000, 77177, 05544 ####[facility] [place] [address], [place] Potassium [Moles/Vol] 3.8 mmol/L Normal 3.5-5.1 [facility] Comment on above: Order Comment: No: D o not add to previous draw Performed By: #### 4 1000, 09303, 81571 ####[facility] [place] [address], [place] Sodium [Moles/Vol] 137 mmol/L Normal 136-145 [facility] Comment on above: Order Comment: No: D o not add to previous draw Performed By: #### 4 1000, 58054, 35450 ####[facility] [place] [address], [place] Urea nitrogen [Mass/Vol] 10 mg/dL Normal 7-25 [facility] Comment on above: Order Comment: No: D o not add to previous draw Performed By: #### 4 1000, 52638, 03333 ####[facility] [place] [address], [place] Calcium [Mass/Vol] 8.3 mg/dL Low 8.6-10.3 [facility] Comment on above: Order Comment: No: D o not add to previous draw Performed By: #### 0 0071, 60838 ####[facility] [place] [address], [facility] [[email or web address]] Chloride [Moles/Vol] 100 mmol/L Normal 98-107 [facility] Comment on above: Order Comment: No: D o not add to previous draw Performed By: #### 0 0071, 50488 ####[facility] [place] [address], [place] CO2 [Moles/Vol] 30 mmol/L Normal 21-31 [facility] Comment on above: Order Comment: No: D o not add to previous draw Performed By: #### 0 0071, 91354 ####[facility] [place] [address], [facility] [[email or web address]] Creatinine [Mass/Vol] 0.93 mg/dL Normal 0.70-1.30 [facility] Comment on above: Order Comment: No: D o not add to previous draw Performed By: #### 0 0071, 62534 ####[facility] [facility] [place] [address], [place] GFR/1.73 sq M.predicted among blacks MDRD (S/P/Bld) [Vol rate/Area] mL/min/{1.73_m2} Normal >60 [facility] Comment on above: Order Comment: No: D o not add to previous draw Result Comment: Calc ulation may not be valid for patients over 70 years Performed By: #### 0 0071, 11860 ####[facility] [place] [address], [place] GFR/1.73 sq M.predicted among non-blacks MDRD (S/P/Bld) [Vol rate/Area] mL/min/{1.73_m2} Normal >60 [facility] Comment on above: Order Comment: No: D o not add to previous draw Result Comment: Calc ulation may not be valid for patients over 70 years Performed By: #### 0 0071, 18522 ####[facility] [place] [address], [facility] [[email or web address]] Glucose [Mass/Vol] 144 mg/dL High 70-100 [facility] Comment on above: Order Comment: No: D o not add to previous draw Performed By: #### 0 0071, 92739 ####[facility] [place] [address], [facility] [[email or web address]] Potassium [Moles/Vol] 4.3 mmol/L Normal 3.5-5.1 [facility] Comment on above: Order Comment: No: D o not add to previous draw Performed By: #### 0 0071, 33240 ####[facility] [id number], [facility] [[email or web address]] Sodium [Moles/Vol] 137 mmol/L Normal 136-145 [facility] Comment on above: Order Comment: No: D o not add to previous draw Performed By: #### 0 0071, 52657 ####[facility] [place] [address], [facility] [[email or web address]] Urea nitrogen [Mass/Vol] 10 mg/dL Normal 7-25 [facility] Comment on above: Order Comment: No: D o not add to previous draw Performed By: #### 0 0071, 29855 ####[facility] [facility].[address] CBC COMPLETE BLOOD COUNTon 10-15-2020 Erythrocyte distribution width (RBC) [Ratio] 14.4 % Normal 11.5-15.0 [facility] Comment on above: Order Comment: No: D o not add to previous draw Performed By: #### 5 0608 ####[facility] [place] [address], [facility] [[email or web address]] Hematocrit (Bld) [Volume fraction] 36.0 % Low 39.0-50.0 [facility] Comment on above: Order Comment: No: D o not add to previous draw Performed By: #### 5 0608 ####[facility] Hemoglobin (Bld) [Mass/Vol] 12.2 g/dL Low 13.0-17.0 [facility] Comment on above: Order Comment: No: D o not add to previous draw Performed By: #### 5 0608 ####[facility] MCH (RBC) [Entitic mass] 32.3 pg Normal 27.0-33.0 [facility] Comment on above: Order Comment: No: D o not add to previous draw Performed By: #### 5 0608 ####[address] MCHC (RBC) [Mass/Vol] 33.9 g/dL Normal 32.0-35.0 [facility] Comment on above: Order Comment: No: D o not add to previous draw Performed By: #### 5 0608 ####[address] MCV (RBC) [Entitic vol] 95.2 fL Normal 82.0-98.0 [facility] Comment on above: Order Comment: No: D o not add to previous draw Performed By: #### 5 0608 ####[address] Nucleated RBC/100 WBC (Bld) [Ratio] 0 % Normal 0-0 [facility] Comment on above: Order Comment: No: D o not add to previous draw Performed By: #### 5 0608 ####[address] PLAT CNT 153 10*3/uL Normal 150-400 [facility] Comment on above: Order Comment: No: D o not add to previous draw Performed By: #### 5 0608 ####[facility] RBC (Bld) [#/Vol] 3.78 10*6/uL Low 4.20-5.70 [facility] Comment on above: Order Comment: No: D o not add to previous draw Performed By: #### 5 0608 ####[facility] [facility] [place] [address], [facility] [[email or web address]] WBC (Bld) [#/Vol] 22.45 10*3/uL High 4.00-10.60 [facility] Comment on above: Order Comment: No: D o not add to previous draw Performed By: #### 5 0608 ####[address] Erythrocyte distribution width (RBC) [Ratio] 14.3 % Normal 11.5-15.0 [facility] Comment on above: Order Comment: No: D o not add to previous draw Performed By: #### 5 0608 ####[place] [id number] [facility].[address] Hematocrit (Bld) [Volume fraction] 37.3 % Low 39.0-50.0 [facility] Comment on above: Order Comment: No: D o not add to previous draw Performed By: #### 5 0608 ####[address] Hemoglobin (Bld) [Mass/Vol] 12.5 g/dL Low 13.0-17.0 [facility] Comment on above: Order Comment: No: D o not add to previous draw Performed By: #### 5 0608 ####[address] [place] [address], [facility] [[email or web address]] MCH (RBC) [Entitic mass] 32.1 pg Normal 27.0-33.0 [facility] Comment on above: Order Comment: No: D o not add to previous draw Performed By: #### 5 0608 ####[facility] MCHC (RBC) [Mass/Vol] 33.5 g/dL Normal 32.0-35.0 [facility] Comment on above: Order Comment: No: D o not add to previous draw Performed By: #### 5 0608 ####[facility] [facility] [place] [address], [facility] [[email or web address]] MCV (RBC) [Entitic vol] 95.9 fL Normal 82.0-98.0 [facility] Comment on above: Order Comment: No: D o not add to previous draw Performed By: #### 5 0608 ####[facility]3000 [facility].[address] Nucleated RBC/100 WBC (Bld) [Ratio] 0 % Normal 0-0 [facility] Comment on above: Order Comment: No: D o not add to previous draw Performed By: #### 5 0608 ####[facility] [facility] [place] [address], [facility] [[email or web address]] PLAT CNT 156 10*3/uL Normal 150-400 [facility] Comment on above: Order Comment: No: D o not add to previous draw Performed By: #### 5 0608 ####[address] [place] [address], [facility] [[email or web address]] RBC (Bld) [#/Vol] 3.89 10*6/uL Low 4.20-5.70 [facility] Comment on above: Order Comment: No: D o not add to previous draw Performed By: #### 5 0608 ####[address] [place] [address], [facility] [[email or web address]] WBC (Bld) [#/Vol] 24.62 10*3/uL High 4.00-10.60 [facility] Comment on above: Order Comment: No: D o not add to previous draw Performed By: #### 5 0608 ####[facility] LACTATE BLOODon 08-14-2021 Lactate [Moles/Vol] 1.2 mmol/L Normal .5-2.2 [facility] Comment on above: Order Comment: No: D o not add to previous draw Performed By: #### 1 0054 ####[facility] MAGNESIUM BLOODon 08-14-2021 Magnesium [Mass/Vol] 2.4 mg/dL Normal 1.9-2.7 [facility] Comment on above: Order Comment: No: D o not add to previous draw Performed By: #### 4 1000, 65912, 56858 ####[facility] [facility].[address] Magnesium [Mass/Vol] 2.3 mg/dL Normal 1.9-2.7 [facility] Comment on above: Order Comment: No: D o not add to previous draw Performed By: #### 0 0071, 20162 ####[facility]3000 [facility].[address] Operative Reporton 1 Operative Report Normal [facility] PHOSPHORUS BLOODon 1 Phosphate [Mass/Vol] 1.8 mg/dL Low 2.5-5.0 [facility] Comment on above: Order Comment: No: D o not add to previous draw Performed By: #### 4 1000, 79764, 72949 ####[facility] [facility].[address] POC GLUCOSE LABon 08-14-2021 Glucose [Mass/Vol] 156 mg/dL High 70-100 [facility] Comment on above: Performed By: #### 8 5499 ####[facility] [place] [address], [place] Glucose [Mass/Vol] 168 mg/dL High 70-100 [facility] Comment on above: Performed By: #### 8 5499 ####[facility] [place] [address], [place] Glucose [Mass/Vol] 145 mg/dL High 70-100 [facility] Comment on above: Performed By: #### 8 5499 ####[facility] [place] [address], [place] Glucose [Mass/Vol] 157 mg/dL High 70-100 [facility] Comment on above: Performed By: #### 8 5499 ####[facility] [place] [address], [place] Glucose [Mass/Vol] 153 mg/dL High 70-100 [facility] Comment on above: Performed By: #### 8 5499 ####[facility] [place] [address], [place] BASIC METABOLIC PANELon 12- Calcium [Mass/Vol] 8.2 mg/dL Low 8.6-10.3 [facility] Comment on above: Order Comment: No: D o not add to previous draw Performed By: #### 1 0070, 89339, 49576 ####[facility] [place] [address], [place] Chloride [Moles/Vol] 104 mmol/L Normal 98-107 [facility] Comment on above: Order Comment: No: D o not add to previous draw Performed By: #### 1 0070, 55947, 88162 ####[facility] [place] [address], [place] CO2 [Moles/Vol] 27 mmol/L Normal 21-31 [facility] Comment on above: Order Comment: No: D o not add to previous draw Performed By: #### 1 0, 86486, 60117 ####[facility] [place] [address], [place] Creatinine [Mass/Vol] 0.87 mg/dL Normal 0.70-1.30 [facility] Comment on above: Order Comment: No: D o not add to previous draw Performed By: #### 1 0, 73041, 24557 ####[facility] [place] [address], [place] GFR/1.73 sq M.predicted among blacks MDRD (S/P/Bld) [Vol rate/Area] mL/min/{1.73_m2} Normal >60 [facility] Comment on above: Order Comment: No: D o not add to previous draw Result Comment: Calc ulation may not be valid for patients over 70 years Performed By: #### 1 0, 64267, 42144 ####[facility] [facility] [place] [address], [place] GFR/1.73 sq M.predicted among non-blacks MDRD (S/P/Bld) [Vol rate/Area] mL/min/{1.73_m2} Normal >60 [facility] Comment on above: Order Comment: No: D o not add to previous draw Result Comment: Calc ulation may not be valid for patients over 70 years Performed By: #### 1 0, 33729, 51210 ####[facility] [facility] [place] [address], [place] Glucose [Mass/Vol] 172 mg/dL High 70-100 [facility] Comment on above: Order Comment: No: D o not add to previous draw Performed By: #### 1 0, 19190, 91860 ####[facility] [place] [address], [place] Potassium [Moles/Vol] 4.0 mmol/L Normal 3.5-5.1 [facility] Comment on above: Order Comment: No: D o not add to previous draw Performed By: #### 1 0070, 23982, 70158 ####[facility] [place] [address], [facility] [[email or web address]] Sodium [Moles/Vol] 137 mmol/L Normal 136-145 [facility] Comment on above: Order Comment: No: D o not add to previous draw Performed By: #### 1 0070, 43256, 33830 ####[facility] [place] [address], [facility] [[email or web address]] Urea nitrogen [Mass/Vol] 10 mg/dL Normal 7-25 [facility] Comment on above: Order Comment: No: D o not add to previous draw Performed By: #### 1 0070, 60021, 65404 ####[facility] [facility].[address] CBC COMPLETE BLOOD COUNTon 09 03- Erythrocyte distribution width (RBC) [Ratio] 14.5 % Normal 11.5-15.0 [facility] Comment on above: Order Comment: No: D o not add to previous draw Performed By: #### 5 0608 ####[facility] [place] [address], [facility] [[email or web address]] Hematocrit (Bld) [Volume fraction] 38.5 % Low 39.0-50.0 [facility] Comment on above: Order Comment: No: D o not add to previous draw Performed By: #### 5 0608 ####[facility] [id number], [facility] [[email or web address]] Hemoglobin (Bld) [Mass/Vol] 12.5 g/dL Low 13.0-17.0 [facility] Comment on above: Order Comment: No: D o not add to previous draw Performed By: #### 5 0608 ####[facility] [id number], [place] MCH (RBC) [Entitic mass] 31.7 pg Normal 27.0-33.0 [facility] Comment on above: Order Comment: No: D o not add to previous draw Performed By: #### 5 0608 ####[facility] [facility] [place] [address], [facility] [[email or web address]] MCHC (RBC) [Mass/Vol] 32.5 g/dL Normal 32.0-35.0 [facility] Comment on above: Order Comment: No: D o not add to previous draw Performed By: #### 5 0608 ####[facility] [facility] [place] [address], [facility] [[email or web address]] MCV (RBC) [Entitic vol] 97.7 fL Normal 82.0-98.0 [facility] Comment on above: Order Comment: No: D o not add to previous draw Performed By: #### 5 0608 ####[facility] [facility].[address] Nucleated RBC/100 WBC (Bld) [Ratio] 0 % Normal 0-0 [facility] Comment on above: Order Comment: No: D o not add to previous draw Performed By: #### 5 0608 ####[address] [place] [address], [facility] [[email or web address]] PLAT CNT 160 10*3/uL Normal 150-400 [facility] Comment on above: Order Comment: No: D o not add to previous draw Performed By: #### 5 0608 ####[facility] [facility] [place] [address], [facility] [[email or web address]] RBC (Bld) [#/Vol] 3.94 10*6/uL Low 4.20-5.70 [facility] Comment on above: Order Comment: No: D o not add to previous draw Performed By: #### 5 0608 ####[facility] [place] [address].[place] [address], [facility] [[email or web address]] WBC (Bld) [#/Vol] 26.01 10*3/uL High 4.00-10.60 [facility] Comment on above: Order Comment: No: D o not add to previous draw Performed By: #### 5 0608 ####[facility] [place] [address], [place] MAGNESIUM BLOODon 08-13-2021 Magnesium [Mass/Vol] 1.6 mg/dL Low 1.9-2.7 [facility] Comment on above: Order Comment: No: D o not add to previous draw Performed By: #### 1 0070, 72548, 83255 ####[facility] [place] [address], [place] PHOSPHORUS BLOODon Phosphate [Mass/Vol] 2.3 mg/dL Low 2.5-5.0 [facility] Comment on above: Order Comment: No: D o not add to previous draw Performed By: #### 1 0, 21735, 18376 ####[facility] [place] [address], [place] POC GLUCOSE LABon 08-13-2021 Glucose [Mass/Vol] 159 mg/dL High 70-100 [facility] Comment on above: Performed By: #### 8 5499 ####[facility] [place] [address], [place] Glucose [Mass/Vol] 174 mg/dL High 70-100 [facility] Comment on above: Performed By: #### 8 5499 ####[facility] [place] [address], [place] Glucose [Mass/Vol] 172 mg/dL High 70-100 [facility] Comment on above: Performed By: #### 8 5499 ####[facility] [place] [address], [place] Glucose [Mass/Vol] 155 mg/dL High 70-100 [facility] Comment on above: Performed By: #### 8 5499 ####[facility] [place] [address], [place] Glucose [Mass/Vol] 168 mg/dL High 70-100 [facility] Comment on above: Performed By: #### 8 5499 ####[facility] [place] [address], [place] Glucose [Mass/Vol] 149 mg/dL High 70-100 [facility] Comment on above: Performed By: #### 8 5499 ####[facility] [facility] [place] [address], [facility] [[email or web address]] BASIC METABOLIC PANELon 12- Calcium [Mass/Vol] 8.5 mg/dL Low 8.6-10.3 [facility] Comment on above: Order Comment: No: D o not add to previous draw Performed By: #### 0 0071, 22052, 81042 ####[facility] [place] [address], [place] Chloride [Moles/Vol] 103 mmol/L Normal 98-107 [facility] Comment on above: Order Comment: No: D o not add to previous draw Performed By: #### 0 0071, 45087, 66413 ####[facility] [facility] [place] [address], [place] CO2 [Moles/Vol] 26 mmol/L Normal 21-31 [facility] Comment on above: Order Comment: No: D o not add to previous draw Performed By: #### 0 0071, 32423, 71750 ####[facility] [place] [address], [place] Creatinine [Mass/Vol] 0.79 mg/dL Normal 0.70-1.30 [facility] Comment on above: Order Comment: No: D o not add to previous draw Performed By: #### 0 0071, 66648, 16426 ####[facility] [place] [address], [facility] [[email or web address]] GFR/1.73 sq M.predicted among blacks MDRD (S/P/Bld) [Vol rate/Area] mL/min/{1.73_m2} Normal >60 [facility] Comment on above: Order Comment: No: D o not add to previous draw Result Comment: Calc ulation may not be valid for patients over 70 years Performed By: #### 0 0071, 30380, 64656 ####[facility] [place] [address], [facility] [[email or web address]] GFR/1.73 sq M.predicted among non-blacks MDRD (S/P/Bld) [Vol rate/Area] mL/min/{1.73_m2} Normal >60 [facility] Comment on above: Order Comment: No: D o not add to previous draw Result Comment: Calc ulation may not be valid for patients over 70 years Performed By: #### 0 0071, 48449, 82744 ####[facility] [facility] [place] [address], [facility] [[email or web address]] Glucose [Mass/Vol] 162 mg/dL High 70-100 [facility] Comment on above: Order Comment: No: D o not add to previous draw Performed By: #### 0 0071, 35117, 07910 ####[facility] [place] [address], [facility] [[email or web address]] Potassium [Moles/Vol] 3.7 mmol/L Normal 3.5-5.1 [facility] Comment on above: Order Comment: No: D o not add to previous draw Performed By: #### 0 0071, 61478, 01712 ####[facility] [place] [address], [place] Sodium [Moles/Vol] 137 mmol/L Normal 136-145 [facility] Comment on above: Order Comment: No: D o not add to previous draw Performed By: #### 0 0071, 45000, 71589 ####[facility] [facility] [place] [address], [facility] [[email or web address]] Urea nitrogen [Mass/Vol] 15 mg/dL Normal 7-25 [facility] Comment on above: Order Comment: No: D o not add to previous draw Performed By: #### 0 0071, 94204, 28379 ####[facility] [facility].[address] CBC COMPLETE BLOOD COUNTon 10-13-2020 Erythrocyte distribution width (RBC) [Ratio] 14.5 % Normal 11.5-15.0 [facility] Comment on above: Order Comment: No: D o not add to previous draw Performed By: #### [id number] ####[facility] [facility].[address] Hematocrit (Bld) [Volume fraction] 42.4 % Normal 39.0-50.0 [facility] Comment on above: Order Comment: No: D o not add to previous draw Performed By: #### 5 0608 ####[place] [address] [facility] [place] [address], [facility] [[email or web address]] Hemoglobin (Bld) [Mass/Vol] 13.6 g/dL Normal 13.0-17.0 [facility] Comment on above: Order Comment: No: D o not add to previous draw Performed By: #### 5 0608 ####[facility] [facility] [place] [address], [facility] [[email or web address]] MCH (RBC) [Entitic mass] 31.6 pg Normal 27.0-33.0 [facility] Comment on above: Order Comment: No: D o not add to previous draw Performed By: #### 5 0608 ####[facility] [facility] [place] [address], [facility] [[email or web address]] MCHC (RBC) [Mass/Vol] 32.1 g/dL Normal 32.0-35.0 [facility] Comment on above: Order Comment: No: D o not add to previous draw Performed By: #### 5 0608 ####[facility] [facility] [place] [address], [facility] [[email or web address]] MCV (RBC) [Entitic vol] 98.4 fL High 82.0-98.0 [facility] Comment on above: Order Comment: No: D o not add to previous draw Performed By: #### 5 0608 ####[facility] [facility] [place] [address], [facility] [[email or web address]] Nucleated RBC/100 WBC (Bld) [Ratio] 0 % Normal 0-0 [facility] Comment on above: Order Comment: No: D o not add to previous draw Performed By: #### 5 0608 ####[facility] [place] [address], [facility] [[email or web address]] PLAT CNT 203 10*3/uL Normal 150-400 The [facility] Comment on above: Order Comment: No: D o not add to previous draw Performed By: #### 5 0608 ####[place] [address] [facility].[address] RBC (Bld) [#/Vol] 4.31 10*6/uL Normal 4.20-5.70 The [facility] Comment on above: Order Comment: No: D o not add to previous draw Performed By: #### 5 0608 ####[facility] [facility] [place] [address], [facility] [[email or web address]] WBC (Bld) [#/Vol] 33.31 10*3/uL High 4.00-10.60 [facility] Comment on above: Order Comment: No: D o not add to previous draw Performed By: #### 5 0608 ####[facility] [facility] [place] [address], [facility] [[email or web address]] MAGNESIUM BLOODon 08-12-2021 Magnesium [Mass/Vol] 1.7 mg/dL Low 1.9-2.7 [facility] Comment on above: Order Comment: No: D o not add to previous draw Performed By: #### 0 0071, [id number], [id number] ####[facility] [place] [address], [place] PHOSPHORUS BLOODon Phosphate [Mass/Vol] 3.3 mg/dL Normal 2.5-5.0 [facility] Comment on above: Order Comment: No: D o not add to previous draw Performed By: #### 0 0071, 02502, [id number] ####[facility] [place] [address], [place] POC GLUCOSE LABon 08-12-2021 Glucose [Mass/Vol] 176 mg/dL High 70-100 [facility] Comment on above: Performed By: #### 8 5499 ####[facility] [place] [address], [place] Glucose [Mass/Vol] 165 mg/dL High 70-100 [facility] Comment on above: Performed By: #### 8 5499 ####[facility] [place] [address], [place] Glucose [Mass/Vol] 153 mg/dL High 70-100 [facility] Comment on above: Performed By: #### 8 5499 ####[facility] [place] [address], [place] Glucose [Mass/Vol] 175 mg/dL High 70-100 [facility] Comment on above: Performed By: #### 8 5499 ####[facility] [place] [address], [place] Glucose [Mass/Vol] 171 mg/dL High 70-100 [facility] Comment on above: Performed By: #### 8 5499 ####[facility] [place] [address], [place] POC GLUCOSE LABon 08-11-2021 Glucose [Mass/Vol] 211 mg/dL High 70-100 [facility] Comment on above: Performed By: #### 8 5499 ####[facility] [place] [address], [place] Glucose [Mass/Vol] 265 mg/dL High 70-100 [facility] Comment on above: Performed By: #### 8 5499 ####[facility] [place] [address], [place] Glucose [Mass/Vol] 106 mg/dL High 70-100 [facility] Comment on above: Performed By: #### 8 5499 ####[facility] [facility] [place] [address], [place] BASIC METABOLIC PANELon 11-3 Calcium [Mass/Vol] 9.1 mg/dL Normal 8.6-10.3 [facility] Comment on above: Performed By: #### 0 1 ####[facility] [place] [address], [place] Chloride [Moles/Vol] 101 mmol/L Normal 98-107 [facility] Comment on above: Performed By: #### 0 1 ####[facility] [place] [address], [place] CO2 [Moles/Vol] 27 mmol/L Normal 21-31 The [facility] Comment on above: Performed By: #### 0 0071 ####[facility] [place] [address], [place] Creatinine [Mass/Vol] 0.92 mg/dL Normal 0.70-1.30 [facility] Comment on above: Performed By: #### 0 0071 ####[facility] [place] [address], [place] GFR/1.73 sq M.predicted among blacks MDRD (S/P/Bld) [Vol rate/Area] mL/min/{1.73_m2} Normal >60 [facility] Comment on above: Result Comment: Calc ulation may not be valid for patients over 70 years Performed By: #### 0 0071 ####[facility] [place] [address], [place] GFR/1.73 sq M.predicted among non-blacks MDRD (S/P/Bld) [Vol rate/Area] mL/min/{1.73_m2} Normal >60 [facility] Comment on above: Result Comment: Calc ulation may not be valid for patients over 70 years Performed By: #### 0 0071 ####[facility] [place] [address], [place] Glucose [Mass/Vol] 104 mg/dL High 70-100 [facility] Comment on above: Performed By: #### 0 0071 ####[facility] [facility] [place] [address], [facility] [[email or web address]] Potassium [Moles/Vol] 3.5 mmol/L Normal 3.5-5.1 [facility] Comment on above: Performed By: #### 0 0071 ####[facility] [place] [address], [place] Sodium [Moles/Vol] 136 mmol/L Normal 136-145 [facility] Comment on above: Performed By: #### 0 0071 ####[facility] [place] [address], [place] Urea nitrogen [Mass/Vol] 23 mg/dL Normal 7-25 [facility] Comment on above: Performed By: #### 0 0071 ####[facility] CBC W/DIFFon 08-01-2021 ABS IMM GRANS 0.1 10*3/uL Normal 0.0-0.2 The [facility] Comment on above: Performed By: #### 5 0103 ####[place] [address], [facility] [email or web address] ABS NEUTROPHILS 4.9 10*3/uL Normal 1.6-7.6 The [facility] Comment on above: Performed By: #### 5 0103 ####[place] [address], [facility] [[email or web address]] Basophils (Bld) [#/Vol] 0.1 10*3/uL Normal 0.0-0.2 [facility] Comment on above: Performed By: #### 5 102 ####[place] [address] Basophils/100 WBC (Bld) 0.3 % Normal 0.0-1.0 [facility] Comment on above: Performed By: #### 5 0103 ####[place] [address] [place] [address], [facility] [[email or web address]] Eosinophils (Bld) [#/Vol] 0.1 10*3/uL Normal 0.0-0.5 [facility] Comment on above: Performed By: #### 5 0103 ####[place] [address] [place] [address], [facility] [[email or web address]] Eosinophils/100 WBC (Bld) 0.2 % Normal 0.0-6.0 [facility] Comment on above: Performed By: #### 5 3 ####[address] Erythrocyte distribution width (RBC) [Ratio] 14.6 % Normal 11.5-15.0 [facility] Comment on above: Performed By: #### 5 3 ####[facility] [facility].[address] Hematocrit (Bld) [Volume fraction] 44.2 % Normal 39.0-50.0 [facility] Comment on above: Performed By: #### 3 ####[facility] [facility].[address] Hemoglobin (Bld) [Mass/Vol] 14.3 g/dL Normal 13.0-17.0 [facility] Comment on above: Performed By: #### 3 ####[address] IMMATURE GRANS 0.3 % Normal 0.0-1.0 [facility] Comment on above: Performed By: #### 102 ####[address] Lymphocytes (Bld) [#/Vol] 20.8 10*3/uL High 1.2-4.0 [facility] Comment on above: Performed By: #### 5 102 ####[place] [address] Lymphocytes/100 WBC (Bld) 78.7 % High 20.0-45.0 [facility] Comment on above: Performed By: #### 3 ####[place] [address] [facility].[address] MCH (RBC) [Entitic mass] 31.8 pg Normal 27.0-33.0 [facility] Comment on above: Performed By: #### 5 102 ####[address] MCHC (RBC) [Mass/Vol] 32.4 g/dL Normal 32.0-35.0 [facility] Comment on above: Performed By: #### 5 0103 ####[facility] [facility].[address] MCV (RBC) [Entitic vol] 98.4 fL High 82.0-98.0 [facility] Comment on above: Performed By: #### 102 ####[facility] [facility].[address] Monocytes (Bld) [#/Vol] 0.6 10*3/uL Normal 0.1-1.0 [facility] Comment on above: Performed By: #### 102 ####[facility] MONOS 2.2 % Low 5.0-12.0 [facility] Comment on above: Performed By: #### 102 ####[facility] Neutrophils/100 WBC (Bld) 18.3 % Low 40.0-72.0 [facility] Comment on above: Performed By: #### 102 ####[place] [address] Nucleated RBC/100 WBC (Bld) [Ratio] 0 % Normal 0-0 [facility] Comment on above: Performed By: #### 102 ####[facility] [facility].[address] PLAT CNT 174 10*3/uL Normal 150-400 The [facility] Comment on above: Performed By: #### 102 ####[facility] [place] [address] RBC (Bld) [#/Vol] 4.49 10*6/uL Normal 4.20-5.70 [facility] Comment on above: Performed By: #### 102 ####[facility] [facility] [place] [address], [facility] [[email or web address]] SMUDGE CELLS MANY Normal The [facility] Comment on above: Performed By: #### 5 0103 ####[facility] [facility] [place] [address], [facility] [[email or web address]] WBC (Bld) [#/Vol] 26.44 10*3/uL High 4.00-10.60 [facility] Comment on above: Performed By: #### 5 3 ####[facility] [facility].[address] PROTHROMBIN TIMEon 1 INR Coag (PPP) [Relative time] 0.99 {INR} Normal 0.91-1.16 [facility] Comment on above: Result Comment: ACCC P RECOMMENDED INR FOR WARFARIN THERAPY CONDITION INRPROPHYLAXIS OF VENOUS THROMBOSIS 2-3(HIGH-RISK SURGERY)TREATMENT OF VENOUS THROMBOSIS 2-3TREATMENT OF PULMONARY EMBOLISM 2-3PREVENTION OF SYSTEMIC EMBOLISM: 2-3 ACUTE MYOCARDIAL INFARCTION TISSUE HEART VALVES VALVULAR HEART DISEASE ATRIAL FIBRILLATION RECURRENT SYSTEMIC EMBOLISMMECHANICAL HEART VALVE 2.5-3.5 FROM: ORAL ANTICOAGULANTS. MECHANISM OF ACTION, CLINICALEFFECTIVENESS, AND OPTIMAL THERAPEUTIC RANGE. [id number]. Performed By: #### 5 6101 ####[facility] [facility] [place] [address], [facility] [[email or web address]] PT Coag (PPP) [Time] 13.1 s Normal 12.3-14.8 [facility] Comment on above: Result Comment: ALL RESULTS MUST BE INTERPRETED WITH RESPECT TO BLOOD DRAWING ARTIFACTOR DILUTION ERROR OF ANTICOAGULANT AT THE TIME OF SAMPLING. Performed By: #### 5 6101 ####[facility] [place] [address], [place] Operative Reporton Operative Report Normal The [facility] POC GLUCOSE LABon 06-21-2021 Glucose [Mass/Vol] 139 mg/dL High 70-100 [facility] Comment on above: Performed By: #### 8 5499 ####[facility] [place] [address], [place] POC GLUCOSE LABon 11-09-2020 Glucose [Mass/Vol] 101 mg/dL High 70-100 [facility] Comment on above: Performed By: #### 8 5499 ####[facility] [place] [address], [place] Glucose [Mass/Vol] 127 mg/dL High 70-100 [facility] Comment on above: Performed By: #### 8 5499 ####[facility] [place] [address], [place] POC GLUCOSE LABon 11-08-2020 Glucose [Mass/Vol] 206 mg/dL High 70-100 [facility] Comment on above: Performed By: #### 8 5499 ####[facility] [place] [address], [place] Glucose [Mass/Vol] 79 mg/dL Normal 70-100 [facility] Comment on above: Performed By: #### 8 5499 ####[facility] [place] [address], [place] Glucose [Mass/Vol] 186 mg/dL High 70-100 [facility] Comment on above: Performed By: #### 8 5499 ####[facility] [place] [address], [place] Glucose [Mass/Vol] 132 mg/dL High 70-100 [facility] Comment on above: Performed By: #### 8 5499 ####[facility] [place] [address], [facility] [[email or web address]] BASIC METABOLIC PANELon 03-0 Calcium [Mass/Vol] 8.4 mg/dL Low 8.6-10.3 [facility] Comment on above: Order Comment: No: D o not add to previous draw Performed By: #### 1 0, 79629 ####[facility] [facility] [place] [address], [facility] [[email or web address]] Chloride [Moles/Vol] 104 mmol/L Normal 98-107 [facility] Comment on above: Order Comment: No: D o not add to previous draw Performed By: #### 1 69, 27246 ####[facility] [facility] [place] [address], [facility] [[email or web address]] CO2 [Moles/Vol] 29 mmol/L Normal 21-31 The [facility] Comment on above: Order Comment: No: D o not add to previous draw Performed By: #### 1 69, 68324 ####[facility] [facility] [place] [address], [facility] [[email or web address]] Creatinine [Mass/Vol] 0.92 mg/dL Normal 0.70-1.30 [facility] Comment on above: Order Comment: No: D o not add to previous draw Performed By: #### 1 0, 52837 ####[facility] [id number], [facility] [[email or web address]] GFR/1.73 sq M.predicted among blacks MDRD (S/P/Bld) [Vol rate/Area] mL/min/{1.73_m2} Normal >60 [facility] Comment on above: Order Comment: No: D o not add to previous draw Result Comment: Calc ulation may not be valid for patients over 70 years Performed By: #### 1 69, 88116 ####[facility] [place] [address], [facility] [[email or web address]] GFR/1.73 sq M.predicted among non-blacks MDRD (S/P/Bld) [Vol rate/Area] mL/min/{1.73_m2} Normal >60 [facility] Comment on above: Order Comment: No: D o not add to previous draw Result Comment: Calc ulation may not be valid for patients over 70 years Performed By: #### 1 69, 37601 ####[facility] [place] [address], [facility] [[email or web address]] Glucose [Mass/Vol] 92 mg/dL Normal 70-100 [facility] Comment on above: Order Comment: No: D o not add to previous draw Performed By: #### 1 69, 47550 ####[facility] [place] [address], [facility] [[email or web address]] Potassium [Moles/Vol] 3.9 mmol/L Normal 3.5-5.1 [facility] Comment on above: Order Comment: No: D o not add to previous draw Performed By: #### 1 69, 93102 ####[facility] [place] [address], [place] Sodium [Moles/Vol] 138 mmol/L Normal 136-145 [facility] Comment on above: Order Comment: No: D o not add to previous draw Performed By: #### 1 69, 21356 ####[facility] [id number], [place] Urea nitrogen [Mass/Vol] 13 mg/dL Normal 7-25 [facility] Comment on above: Order Comment: No: D o not add to previous draw Performed By: #### 1 69, 61242 ####[facility] CBC W/DIFFon 11-07-2020 ABS IMM GRANS 0.1 10*3/uL Normal 0.0-0.2 The [facility] Comment on above: Order Comment: No: D o not add to previous draw Performed By: #### 5 0103 ####[facility] [place] [address], [facility] [[email or web address]] ABS NEUTROPHILS 3.3 10*3/uL Normal 1.6-7.6 The [facility] Comment on above: Order Comment: No: D o not add to previous draw Performed By: #### 5 0103 ####[place] [address] [place] [address], [facility] [[email or web address]] Basophils (Bld) [#/Vol] 0.1 10*3/uL Normal 0.0-0.2 [facility] Comment on above: Order Comment: No: D o not add to previous draw Performed By: #### 5 0103 ####[facility] [place] [address], [facility] [[email or web address]] Basophils/100 WBC (Bld) 0.3 % Normal 0.0-1.0 [facility] Comment on above: Order Comment: No: D o not add to previous draw Performed By: #### 5 0103 ####[facility] [place] [address], [facility] [[email or web address]] Eosinophils (Bld) [#/Vol] 0.2 10*3/uL Normal 0.0-0.5 [facility] Comment on above: Order Comment: No: D o not add to previous draw Performed By: #### 5 0103 ####[place] [address] [place] [address], [facility] [[email or web address]] Eosinophils/100 WBC (Bld) 0.9 % Normal 0.0-6.0 [facility] Comment on above: Order Comment: No: D o not add to previous draw Performed By: #### 5 0103 ####[facility] [facility].[address] Erythrocyte distribution width (RBC) [Ratio] 14.9 % Normal 11.5-15.0 [facility] Comment on above: Order Comment: No: D o not add to previous draw Performed By: #### 5 0103 ####[facility] [facility].[address] Hematocrit (Bld) [Volume fraction] 31.8 % Low 39.0-50.0 [facility] Comment on above: Order Comment: No: D o not add to previous draw Performed By: #### 5 0103 ####[facility] Hemoglobin (Bld) [Mass/Vol] 10.0 g/dL Low 13.0-17.0 [facility] Comment on above: Order Comment: No: D o not add to previous draw Performed By: #### 5 0103 ####[facility] IMMATURE GRANS 0.5 % Normal 0.0-1.0 The [facility] Comment on above: Order Comment: No: D o not add to previous draw Performed By: #### 5 0103 ####[facility] [facility].[address] Lymphocytes (Bld) [#/Vol] 20.2 10*3/uL High 1.2-4.0 [facility] Comment on above: Order Comment: No: D o not add to previous draw Performed By: #### 5 0103 ####[facility] Lymphocytes/100 WBC (Bld) 83.1 % High 20.0-45.0 [facility] Comment on above: Order Comment: No: D o not add to previous draw Performed By: #### 5 0103 ####[facility] MCH (RBC) [Entitic mass] 31.6 pg Normal 27.0-33.0 [facility] Comment on above: Order Comment: No: D o not add to previous draw Performed By: #### 5 0103 ####[facility] MCHC (RBC) [Mass/Vol] 31.4 g/dL Low 32.0-35.0 [facility] Comment on above: Order Comment: No: D o not add to previous draw Performed By: #### 5 0103 ####[facility] MCV (RBC) [Entitic vol] 100.6 fL High 82.0-98.0 [facility] Comment on above: Order Comment: No: D o not add to previous draw Performed By: #### 5 3 ####[facility] Monocytes (Bld) [#/Vol] 0.4 10*3/uL Normal 0.1-1.0 [facility] Comment on above: Order Comment: No: D o not add to previous draw Performed By: #### 5 3 ####[facility] [place] [address] MONOS 1.6 % Low 5.0-12.0 [facility] Comment on above: Order Comment: No: D o not add to previous draw Performed By: #### 5 0103 ####[facility] Neutrophils/100 WBC (Bld) 13.6 % Low 40.0-72.0 [facility] Comment on above: Order Comment: No: D o not add to previous draw Performed By: #### 5 0103 ####[facility] [facility].[address] Nucleated RBC/100 WBC (Bld) [Ratio] 0 % Normal 0-0 [facility] Comment on above: Order Comment: No: D o not add to previous draw Performed By: #### 5 0103 ####[facility] [facility] [place] [address], [facility] [[email or web address]] PLAT CNT 225 10*3/uL Normal 150-400 The [facility] Comment on above: Order Comment: No: D o not add to previous draw Performed By: #### 5 0103 ####[facility] [facility] [place] [address], [facility] [[email or web address]] RBC (Bld) [#/Vol] 3.16 10*6/uL Low 4.20-5.70 [facility] Comment on above: Order Comment: No: D o not add to previous draw Performed By: #### 5 0103 ####[facility] [facility].[address] SMUDGE CELLS MANY PRESENT Normal The [facility] Comment on above: Order Comment: No: D o not add to previous draw Result Comment: This result added by TASHIA on 11/07/2020 09:18.AUTO DIF Performed By: #### 5 0103 ####[facility] [facility].[address] WBC (Bld) [#/Vol] 24.33 10*3/uL High 4.00-10.60 The [facility] Comment on above: Order Comment: No: D o not add to previous draw Performed By: #### 5 0103 ####[facility] [place] [address].[place] [address], [facility] [[email or web address]] MAGNESIUM BLOODon 11-07-2020 Magnesium [Mass/Vol] 2.0 mg/dL Normal 1.9-2.7 [facility] Comment on above: Order Comment: No: D o not add to previous draw Performed By: #### 1 0070, 65979 ####[facility] [place] [address], [place] POC GLUCOSE LABon 11-07-2020 Glucose [Mass/Vol] 164 mg/dL High 70-100 [facility] Comment on above: Performed By: #### 8 5499 ####[facility] [place] [address], [place] Glucose [Mass/Vol] 128 mg/dL High 70-100 [facility] Comment on above: Performed By: #### 8 5499 ####[facility] [place] [address], [place] Glucose [Mass/Vol] 143 mg/dL High 70-100 [facility] Comment on above: Performed By: #### 8 5499 ####[facility] [place] [address], [place] Glucose [Mass/Vol] 100 mg/dL Normal 70-100 [facility] Comment on above: Performed By: #### 8 5499 ####[facility] [place] [address], [place] BASIC METABOLIC PANELon Calcium [Mass/Vol] 8.2 mg/dL Low 8.6-10.3 [facility] Comment on above: Order Comment: No: D o not add to previous draw Performed By: #### 0 0071, [id number] ####[facility] [place] [address], [place] Chloride [Moles/Vol] 105 mmol/L Normal 98-107 [facility] Comment on above: Order Comment: No: D o not add to previous draw Performed By: #### 0 0071, 08535 ####[facility] [place] [address], [facility] [[email or web address]] CO2 [Moles/Vol] 28 mmol/L Normal 21-31 [facility] Comment on above: Order Comment: No: D o not add to previous draw Performed By: #### 0 0071, 54262 ####[facility] [facility] [place] [address], [facility] [[email or web address]] Creatinine [Mass/Vol] 0.86 mg/dL Normal 0.70-1.30 [facility] Comment on above: Order Comment: No: D o not add to previous draw Performed By: #### 0 0071, [id number] ####[address] [place] [address], [facility] [[email or web address]] GFR/1.73 sq M.predicted among blacks MDRD (S/P/Bld) [Vol rate/Area] mL/min/{1.73_m2} Normal >60 [facility] Comment on above: Order Comment: No: D o not add to previous draw Result Comment: Calc ulation may not be valid for patients over 70 years Performed By: #### 0 0071, 23335 ####[place] [address] [facility] [place] [address], [facility] [[email or web address]] GFR/1.73 sq M.predicted among non-blacks MDRD (S/P/Bld) [Vol rate/Area] mL/min/{1.73_m2} Normal >60 [facility] Comment on above: Order Comment: No: D o not add to previous draw Result Comment: Calc ulation may not be valid for patients over 70 years Performed By: #### 0 0071, 31915 ####[place] [address] [facility] [place] [address], [facility] [[email or web address]] Glucose [Mass/Vol] 115 mg/dL High 70-100 [facility] Comment on above: Order Comment: No: D o not add to previous draw Performed By: #### 0 0071, 00853 ####[facility] Potassium [Moles/Vol] 4.2 mmol/L Normal 3.5-5.1 [facility] Comment on above: Order Comment: No: D o not add to previous draw Performed By: #### 0 0071, 65145 ####[facility] Sodium [Moles/Vol] 137 mmol/L Normal 136-145 [facility] Comment on above: Order Comment: No: D o not add to previous draw Performed By: #### 0 0071, 80997 ####[facility] Urea nitrogen [Mass/Vol] 10 mg/dL Normal 7-25 [facility] Comment on above: Order Comment: No: D o not add to previous draw Performed By: #### 0 0071, 46648 ####[facility] CBC W/DIFFon 11-06-2020 ABS IMM GRANS 0.2 10*3/uL Normal 0.0-0.2 [facility] Comment on above: Order Comment: No: D o not add to previous draw Performed By: #### 5 0103 ####[facility] ABS NEUTROPHILS 3.8 10*3/uL Normal 1.6-7.6 [facility] Comment on above: Order Comment: No: D o not add to previous draw Performed By: #### 5 0103 ####[facility] Basophils (Bld) [#/Vol] 0.1 10*3/uL Normal 0.0-0.2 [facility] Comment on above: Order Comment: No: D o not add to previous draw Performed By: #### 5 0103 ####[facility] [facility] [place] [address], [facility] [[email or web address]] Basophils/100 WBC (Bld) 0.3 % Normal 0.0-1.0 [facility] Comment on above: Order Comment: No: D o not add to previous draw Performed By: #### 5 0103 ####[facility] [facility] [place] [address], [facility] [[email or web address]] Eosinophils (Bld) [#/Vol] 0.2 10*3/uL Normal 0.0-0.5 [facility] Comment on above: Order Comment: No: D o not add to previous draw Performed By: #### 5 0103 ####[facility] [facility] [place] [address], [facility] [[email or web address]] Eosinophils/100 WBC (Bld) 0.7 % Normal 0.0-6.0 [facility] Comment on above: Order Comment: No: D o not add to previous draw Performed By: #### 5 0103 ####[facility] [place] [address], [facility] [[email or web address]] Erythrocyte distribution width (RBC) [Ratio] 14.9 % Normal 11.5-15.0 [facility] Comment on above: Order Comment: No: D o not add to previous draw Performed By: #### 5 3 ####[facility] [place] [address], [facility] [[email or web address]] Hematocrit (Bld) [Volume fraction] 32.5 % Low 39.0-50.0 [facility] Comment on above: Order Comment: No: D o not add to previous draw Performed By: #### 5 0103 ####[facility] [place] [address], [facility] [[email or web address]] Hemoglobin (Bld) [Mass/Vol] 10.6 g/dL Low 13.0-17.0 [facility] Comment on above: Order Comment: No: D o not add to previous draw Performed By: #### 5 0103 ####[facility] IMMATURE GRANS 0.7 % Normal 0.0-1.0 The [facility] Comment on above: Order Comment: No: D o not add to previous draw Performed By: #### 5 0103 ####[facility] [place] [address], [facility] [[email or web address]] Lymphocytes (Bld) [#/Vol] 23.3 10*3/uL High 1.2-4.0 [facility] Comment on above: Order Comment: No: D o not add to previous draw Performed By: #### 5 0103 ####[facility] Lymphocytes/100 WBC (Bld) 81.5 % High 20.0-45.0 [facility] Comment on above: Order Comment: No: D o not add to previous draw Performed By: #### 5 0103 ####[facility] MCH (RBC) [Entitic mass] 32.2 pg Normal 27.0-33.0 [facility] Comment on above: Order Comment: No: D o not add to previous draw Performed By: #### 5 3 ####[facility] MCHC (RBC) [Mass/Vol] 32.6 g/dL Normal 32.0-35.0 [facility] Comment on above: Order Comment: No: D o not add to previous draw Performed By: #### 5 0103 ####[facility] [place] [address], [facility] [[email or web address]] MCV (RBC) [Entitic vol] 98.8 fL High 82.0-98.0 [facility] Comment on above: Order Comment: No: D o not add to previous draw Performed By: #### 5 0103 ####[facility] [facility] [place] [address], [facility] [[email or web address]] Monocytes (Bld) [#/Vol] 1.0 10*3/uL Normal 0.1-1.0 [facility] Comment on above: Order Comment: No: D o not add to previous draw Performed By: #### 5 0103 ####[facility] [facility] [place] [address], [facility] [[email or web address]] MONOS 3.5 % Low 5.0-12.0 [facility] Comment on above: Order Comment: No: D o not add to previous draw Performed By: #### 5 0103 ####[facility] [facility] [place] [address], [facility] [[email or web address]] Neutrophils/100 WBC (Bld) 13.3 % Low 40.0-72.0 [facility] Comment on above: Order Comment: No: D o not add to previous draw Performed By: #### 5 0103 ####[facility] [facility] [place] [address], [facility] [[email or web address]] Nucleated RBC/100 WBC (Bld) [Ratio] 0 % Normal 0-0 [facility] Comment on above: Order Comment: No: D o not add to previous draw Performed By: #### 5 3 ####[facility] [facility] [place] [address], [facility] [[email or web address]] PLAT CNT 232 10*3/uL Normal 150-400 The [facility] Comment on above: Order Comment: No: D o not add to previous draw Performed By: #### 5 0103 ####[facility] [facility] [place] [address], [facility] [[email or web address]] RBC (Bld) [#/Vol] 3.29 10*6/uL Low 4.20-5.70 The [facility] Comment on above: Order Comment: No: D o not add to previous draw Performed By: #### 5 0103 ####[facility] [place] [address], [place] SMUDGE CELLS MANY Normal The [facility] Comment on above: Order Comment: No: D o not add to previous draw Performed By: #### 5 0103 ####[facility] [place] [address], [place] WBC (Bld) [#/Vol] 28.54 10*3/uL High 4.00-10.60 The [facility] Comment on above: Order Comment: No: D o not add to previous draw Performed By: #### 5 0103 ####[facility] [place] [address], [place] MAGNESIUM BLOODon 11-06-2020 Magnesium [Mass/Vol] 2.1 mg/dL Normal 1.9-2.7 [facility] Comment on above: Order Comment: No: D o not add to previous draw Performed By: #### 0 0071, 87106 ####[facility] [place] [address], [place] POC GLUCOSE LABon 11-06-2020 Glucose [Mass/Vol] 155 mg/dL High 70-100 [facility] Comment on above: Performed By: #### 8 5499 ####[facility] [place] [address], [place] Glucose [Mass/Vol] 161 mg/dL High 70-100 The [facility] Comment on above: Performed By: #### 8 5499 ####[facility] [place] [address], [place] Glucose [Mass/Vol] 118 mg/dL High 70-100 [facility] Comment on above: Performed By: #### 8 5499 ####[facility] [place] [address], [place] Glucose [Mass/Vol] 119 mg/dL High 70-100 [facility] Comment on above: Performed By: #### 8 5499 ####[facility] BASIC METABOLIC PANELon 03-0 Calcium [Mass/Vol] 8.2 mg/dL Low 8.6-10.3 [facility] Comment on above: Order Comment: No: D o not add to previous drawNURSE DRAW RN JESSE Performed By: #### 0 0071, 02322 ####[facility] [place] [address], [facility] [[email or web address]] Chloride [Moles/Vol] 106 mmol/L Normal 98-107 The [facility] Comment on above: Order Comment: No: D o not add to previous drawNURSE DRAW RN JESSE Performed By: #### 0 0071, 43754 ####[facility] CO2 [Moles/Vol] 25 mmol/L Normal 21-31 The [facility] Comment on above: Order Comment: No: D o not add to previous drawNURSE DRAW RN JESSE Performed By: #### 0 0071, 64801 ####[facility] [place] [address], [facility] [[email or web address]] Creatinine [Mass/Vol] 0.84 mg/dL Normal 0.70-1.30 The [facility] Comment on above: Order Comment: No: D o not add to previous drawNURSE DRAW RN JESSE Performed By: #### 0 0071, 03266 ####[facility] [place] [address], [facility] [[email or web address]] GFR/1.73 sq M.predicted among blacks MDRD (S/P/Bld) [Vol rate/Area] mL/min/{1.73_m2} Normal >60 The [facility] Comment on above: Order Comment: No: D o not add to previous drawNURSE DRAW RN JESSE Result Comment: Calc ulation may not be valid for patients over 70 years Performed By: #### 0 0071, 58297 ####[facility] [facility] [place] [address], [facility] [[email or web address]] GFR/1.73 sq M.predicted among non-blacks MDRD (S/P/Bld) [Vol rate/Area] mL/min/{1.73_m2} Normal >60 The [facility] Comment on above: Order Comment: No: D o not add to previous drawNURSE DRAW RN JESSE Result Comment: Calc ulation may not be valid for patients over 70 years Performed By: #### 0 0071, 88760 ####[facility] [facility] [place] [address], [facility] [[email or web address]] Glucose [Mass/Vol] 134 mg/dL High 70-100 [facility] Comment on above: Order Comment: No: D o not add to previous drawNURSE DRAW RN JESSE Performed By: #### 0 0071, 05762 ####[facility] [facility] [place] [address], [facility] [[email or web address]] Potassium [Moles/Vol] 4.0 mmol/L Normal 3.5-5.1 The [facility] Comment on above: Order Comment: No: D o not add to previous drawNURSE DRAW RN JESSE Performed By: #### 0 0071, 28103 ####[facility] [facility] [place] [address], [facility] [[email or web address]] Sodium [Moles/Vol] 136 mmol/L Normal 136-145 [facility] Comment on above: Order Comment: No: D o not add to previous drawNURSE DRAW RN JESSE Performed By: #### 0 0071, 38734 ####[facility] [facility] [place] [address], [facility] [[email or web address]] Urea nitrogen [Mass/Vol] 9 mg/dL Normal 7-25 The [facility] Comment on above: Order Comment: No: D o not add to previous drawNURSE DRAW RN JESSE Performed By: #### 0 0071, 43648 ####[facility] [facility] [place] [address], [facility] [[email or web address]] CBC W/DIFFon 11-05-2020 ABS IMM GRANS 0.2 10*3/uL Normal 0.0-0.2 The [facility] Comment on above: Order Comment: No: D o not add to previous drawNURSE DRAW RN JESSE Performed By: #### 5 0103 ####[facility] [place] [address], [facility] [[email or web address]] ABS NEUTROPHILS 4.1 10*3/uL Normal 1.6-7.6 The [facility] Comment on above: Order Comment: No: D o not add to previous drawNURSE DRAW RN JESSE Performed By: #### 5 0103 ####[facility] [facility] [place] [address], [facility] [[email or web address]] Basophils (Bld) [#/Vol] 0.1 10*3/uL Normal 0.0-0.2 The [facility] Comment on above: Order Comment: No: D o not add to previous drawNURSE DRAW RN JESSE Performed By: #### 5 0103 ####[facility] [facility] [place] [address], [facility] [[email or web address]] Basophils/100 WBC (Bld) 0.3 % Normal 0.0-1.0 The [facility] Comment on above: Order Comment: No: D o not add to previous drawNURSE DRAW RN JESSE Performed By: #### 5 0103 ####[facility] [facility] [place] [address], [facility] [[email or web address]] Eosinophils (Bld) [#/Vol] 0.2 10*3/uL Normal 0.0-0.5 The [facility] Comment on above: Order Comment: No: D o not add to previous drawNURSE DRAW RN JESSE Performed By: #### 5 0103 ####[facility] [place] [address], [facility] [[email or web address]] Eosinophils/100 WBC (Bld) 0.7 % Normal 0.0-6.0 The [facility] Comment on above: Order Comment: No: D o not add to previous drawNURSE DRAW RN JESSE Performed By: #### 5 0103 ####[facility] Erythrocyte distribution width (RBC) [Ratio] 14.8 % Normal 11.5-15.0 The [facility] Comment on above: Order Comment: No: D o not add to previous drawNURSE DRAW RN JESSE Performed By: #### 5 3 ####[facility] Hematocrit (Bld) [Volume fraction] 32.3 % Low 39.0-50.0 The [facility] Comment on above: Order Comment: No: D o not add to previous drawNURSE DRAW RN JESSE Performed By: #### 5 102 ####[facility] Hemoglobin (Bld) [Mass/Vol] 10.4 g/dL Low 13.0-17.0 The [facility] Comment on above: Order Comment: No: D o not add to previous drawNURSE DRAW RN JESSE Performed By: #### 5 102 ####[facility] IMMATURE GRANS 0.6 % Normal 0.0-1.0 The [facility] Comment on above: Order Comment: No: D o not add to previous drawNURSE DRAW RN JESSE Performed By: #### 5 3 ####[facility] Lymphocytes (Bld) [#/Vol] 22.1 10*3/uL High 1.2-4.0 The [facility] Comment on above: Order Comment: No: D o not add to previous drawNURSE DRAW RN JESSE Performed By: #### 5 3 ####[facility] Lymphocytes/100 WBC (Bld) 82.1 % High 20.0-45.0 The [facility] Comment on above: Order Comment: No: D o not add to previous drawNURSE DRAW RN JESSE Performed By: #### 5 0103 ####[facility] [place] [address] MCH (RBC) [Entitic mass] 31.9 pg Normal 27.0-33.0 The [facility] Comment on above: Order Comment: No: D o not add to previous drawNURSE DRAW RN JESSE Performed By: #### 5 3 ####[address] MCHC (RBC) [Mass/Vol] 32.2 g/dL Normal 32.0-35.0 The [facility] Comment on above: Order Comment: No: D o not add to previous drawNURSE DRAW RN JESSE Performed By: #### 5 3 ####[facility] MCV (RBC) [Entitic vol] 99.1 fL High 82.0-98.0 The [facility] Comment on above: Order Comment: No: D o not add to previous drawNURSE DRAW RN JESSE Performed By: #### 5 3 ####[address] Monocytes (Bld) [#/Vol] 0.3 10*3/uL Normal 0.1-1.0 The [facility] Comment on above: Order Comment: No: D o not add to previous drawNURSE DRAW RN JESSE Performed By: #### 5 0103 ####[facility] [place] [address], [facility] [[email or web address]] MONOS 1.1 % Low 5.0-12.0 The [facility] Comment on above: Order Comment: No: D o not add to previous drawNURSE DRAW RN JESSE Performed By: #### 5 0103 ####[facility] [place] [address], [facility] [[email or web address]] Neutrophils/100 WBC (Bld) 15.2 % Low 40.0-72.0 [facility] Comment on above: Order Comment: No: D o not add to previous drawNURSE DRAW RN JESSE Performed By: #### 5 0103 ####[facility] [place] [address], [facility] [[email or web address]] Nucleated RBC/100 WBC (Bld) [Ratio] 0 % Normal 0-0 The [facility] Comment on above: Order Comment: No: D o not add to previous drawNURSE DRAW RN JESSE Performed By: #### 5 3 ####[facility] [facility] [place] [address], [facility] [[email or web address]] PLAT CNT 221 10*3/uL Normal 150-400 The [facility] Comment on above: Order Comment: No: D o not add to previous drawNURSE DRAW RN JESSE Performed By: #### 5 102 ####[facility] [facility] [place] [address], [facility] [[email or web address]] RBC (Bld) [#/Vol] 3.26 10*6/uL Low 4.20-5.70 The [facility] Comment on above: Order Comment: No: D o not add to previous drawNURSE DRAW RN JESSE Performed By: #### 5 3 ####[facility] [place] [address], [facility] [[email or web address]] SMUDGE CELLS Many Normal The [facility] Comment on above: Order Comment: No: D o not add to previous drawNURSE DRAW RN JESSE Performed By: #### 5 3 ####[facility] [place] [address], [facility] [[email or web address]] WBC (Bld) [#/Vol] 26.95 10*3/uL High 4.00-10.60 The [facility] Comment on above: Order Comment: No: D o not add to previous drawNURSE DRAW PATTY MOLINA Performed By: #### 5 0103 ####[facility] [facility] [place] [address], [facility] [[email or web address]] MAGNESIUM BLOODon 11-05-2020 Magnesium [Mass/Vol] 1.8 mg/dL Low 1.9-2.7 The [facility] Comment on above: Order Comment: No: D o not add to previous drawNURSE DRAW PATTY MOLINA Performed By: #### 0 0071, 69221 ####[facility] [facility] [place] [address], [facility] [[email or web address]] POC GLUCOSE LABon 11-05-2020 Glucose [Mass/Vol] 123 mg/dL High 70-100 [facility] Comment on above: Performed By: #### 8 5499 ####[facility] [facility] [place] [address], [place] Glucose [Mass/Vol] 132 mg/dL High 70-100 [facility] Comment on above: Performed By: #### [id number] ####[facility] [facility] [place] [address], [place] Glucose [Mass/Vol] 164 mg/dL High 70-100 [facility] Comment on above: Performed By: #### [id number] ####[facility] [facility] [place] [address], [place] Glucose [Mass/Vol] 129 mg/dL High 70-100 [facility] Comment on above: Performed By: #### [id number] ####[facility] [facility] [place] [address], [facility] [[email or web address]] APTTon 11-04-2020 aPTT Coag (Bld) [Time] 30.1 s Normal 25.0-35.0 [facility] Comment on [...] THIS PURPOSE. Performed By: #### 5 6101, 69716 ####[facility]3000 [facility].[address] BASIC METABOLIC PANELon 03-0 Calcium [Mass/Vol] 8.2 mg/dL Low 8.6-10.3 [facility] Comment on above: Order Comment: No: D o not add to previous drawNurse draw Performed By: #### 9 9909, 98251, 95761, 86864, 65671 ####[facility] [place] [address], [facility] [[email or web address]] Chloride [Moles/Vol] 104 mmol/L Normal 98-107 [facility] Comment on above: Order Comment: No: D o not add to previous drawNurse draw Performed By: #### 9 9909, 78522, 81256, 91892, 77034 ####[facility] [place] [address], [facility] [[email or web address]] CO2 [Moles/Vol] 27 mmol/L Normal 21-31 [facility] Comment on above: Order Comment: No: D o not add to previous drawNurse draw Performed By: #### 9 9909, 84427, 54218, 03662, 52618 ####[facility] [facility] [place] [address], [facility] [[email or web address]] Creatinine [Mass/Vol] 0.86 mg/dL Normal 0.70-1.30 [facility] Comment on above: Order Comment: No: D o not add to previous drawNurse draw Performed By: #### 9 9909, 48329, 22377, 79129, 64088 ####[facility] [facility] [place] [address], [facility] [[email or web address]] GFR/1.73 sq M.predicted among blacks MDRD (S/P/Bld) [Vol rate/Area] mL/min/{1.73_m2} Normal >60 [facility] Comment on above: Order Comment: No: D o not add to previous drawNurse draw Result Comment: Calc ulation may not be valid for patients over 70 years Performed By: #### 9 9909, 31468, 73190, 00176, 61070 ####[facility] [place] [address], [facility] [[email or web address]] GFR/1.73 sq M.predicted among non-blacks MDRD (S/P/Bld) [Vol rate/Area] mL/min/{1.73_m2} Normal >60 [facility] Comment on above: Order Comment: No: D o not add to previous drawNurse draw Result Comment: Calc ulation may not be valid for patients over 70 years Performed By: #### 9 9909, 41426, 51491, 58317, 71484 ####[facility] [facility] [place] [address], [facility] [[email or web address]] Glucose [Mass/Vol] 140 mg/dL High 70-100 [facility] Comment on above: Order Comment: No: D o not add to previous drawNurse draw Performed By: #### 9 9909, 46203, 69981, 41631, 96374 ####[facility] [facility], [place] [address], [facility] [[email or web address]] Potassium [Moles/Vol] 4.1 mmol/L Normal 3.5-5.1 [facility] Comment on above: Order Comment: No: D o not add to previous drawNurse draw Performed By: #### 9 9909, 02753, 00035, 34182, 44299 ####[facility] [place] [address], [facility] [[email or web address]] Sodium [Moles/Vol] 136 mmol/L Normal 136-145 [facility] Comment on above: Order Comment: No: D o not add to previous drawNurse draw Performed By: #### 9 9909, 37063, 94607, 53916, 74888 ####[facility] [facility].[address] Urea nitrogen [Mass/Vol] 12 mg/dL Normal 7-25 [facility] Comment on above: Order Comment: No: D o not add to previous drawNurse draw Performed By: #### 9 9909, 06795, 04202, 84264, 49111 ####[facility] [facility].[address] CBC COMPLETE BLOOD COUNTon 0 11-04-2020 Erythrocyte distribution width (RBC) [Ratio] 14.7 % Normal 11.5-15.0 [facility] Comment on above: Order Comment: No: D o not add to previous drawNurse draw Performed By: #### 5 0608 ####[facility] Hematocrit (Bld) [Volume fraction] 33.5 % Low 39.0-50.0 [facility] Comment on above: Order Comment: No: D o not add to previous drawNurse draw Performed By: #### 5 0608 ####[facility] [facility].[address] Hemoglobin (Bld) [Mass/Vol] 10.9 g/dL Low 13.0-17.0 [facility] Comment on above: Order Comment: No: D o not add to previous drawNurse draw Performed By: #### 5 0608 ####[facility] [facility] [place] [address], [facility] [[email or web address]] MCH (RBC) [Entitic mass] 31.9 pg Normal 27.0-33.0 [facility] Comment on above: Order Comment: No: D o not add to previous drawNurse draw Performed By: #### 5 0608 ####[facility] [facility] [place] [address], [facility] [[email or web address]] MCHC (RBC) [Mass/Vol] 32.5 g/dL Normal 32.0-35.0 [facility] Comment on above: Order Comment: No: D o not add to previous drawNurse draw Performed By: #### 5 0608 ####[facility] [facility] [place] [address], [facility] [[email or web address]] MCV (RBC) [Entitic vol] 98.0 fL Normal 82.0-98.0 [facility] Comment on above: Order Comment: No: D o not add to previous drawNurse draw Performed By: #### 5 0608 ####[facility] [facility].[address] Nucleated RBC/100 WBC (Bld) [Ratio] 0 % Normal 0-0 [facility] Comment on above: Order Comment: No: D o not add to previous drawNurse draw Performed By: #### 5 0608 ####[facility] [facility] [place] [address], [facility] [[email or web address]] PLAT CNT 219 10*3/uL Normal 150-400 [facility] Comment on above: Order Comment: No: D o not add to previous drawNurse draw Performed By: #### 5 0608 ####[facility] [facility] [place] [address], [facility] [[email or web address]] RBC (Bld) [#/Vol] 3.42 10*6/uL Low 4.20-5.70 [facility] Comment on above: Order Comment: No: D o not add to previous drawNurse draw Performed By: #### 5 0608 ####[facility] [facility] [place] [address], [facility] [[email or web address]] WBC (Bld) [#/Vol] 28.62 10*3/uL High 4.00-10.60 [facility] Comment on above: Order Comment: No: D o not add to previous drawNurse draw Performed By: #### 5 0608 ####[facility] [place] [address], [facility] [[email or web address]] LIVER BATTERYon 11-04-2020 Albumin [Mass/Vol] 3.2 g/dL Low 3.5-5.7 [facility] Comment on above: Order Comment: Yes: Add to Previous draw if ableNurse draw Performed By: #### 9 9909, 14381, 05052, 90775, 51652 ####[facility] [place] [address], [facility] [[email or web address]] ALKALINE PHOSPH 62 IU/L Normal 34-104 [facility] Comment on above: Order Comment: Yes: Add to Previous draw if ableNurse draw Performed By: #### 9 9909, 74724, 06255, 23929, 86300 ####[facility] [facility] [place] [address], [facility] [[email or web address]] ALT [Catalytic activity/Vol] 58 U/L High 7-52 [facility] Comment on above: Order Comment: Yes: Add to Previous draw if ableNurse draw Performed By: #### 9 9909, 31615, 79103, 85203, 89563 ####[facility] [facility], [place] [address], [facility] [[email or web address]] AST [Catalytic activity/Vol] 15 U/L Normal 13-39 [facility] Comment on above: Order Comment: Yes: Add to Previous draw if ableNurse draw Performed By: #### 9 9909, 79631, 20310, 82754, 51761 ####[facility] [place] [address], [place] Bilirubin [Mass/Vol] 0.5 mg/dL Normal 0.3-1.0 [facility] Comment on above: Order Comment: Yes: Add to Previous draw if ableNurse draw Performed By: #### 9 9909, 70867, 08254, 22969, 28829 ####[facility] [id number], [place] Bilirubin.direct [Mass/Vol] 0.1 mg/dL Normal 0.0-0.2 [facility] Comment on above: Order Comment: Yes: Add to Previous draw if ableNurse draw Performed By: #### 9 9909, 66648, 54614, 45339, 18088 ####[facility] [place] [address], [facility] [[email or web address]] Protein [Mass/Vol] 5.3 g/dL Low 6.0-8.3 [facility] Comment on above: Order Comment: Yes: Add to Previous draw if ableNurse draw Performed By: #### 9 9909, 06726, 47611, 92428, 28590 ####[facility] [place] [address], [facility] [[email or web address]] MAGNESIUM BLOODon 11-04-2020 Magnesium [Mass/Vol] 1.9 mg/dL Normal 1.9-2.7 [facility] Comment on above: Order Comment: Yes: Add to Previous draw if ableNurse draw Performed By: #### 9 9909, 64897, 08285, 48419, 20784 ####[facility] [place] [address], [facility] [[email or web address]] PHOSPHORUS BLOODon Phosphate [Mass/Vol] 2.9 mg/dL Normal 2.5-5.0 [facility] Comment on above: Order Comment: Yes: Add to Previous draw if ableNurse draw Performed By: #### 9 9909, 29002, 25927, 72438, 06517 ####[facility] [place] [address], [place] POC GLUCOSE LABon 11-04-2020 Glucose [Mass/Vol] 115 mg/dL High 70-100 [facility] Comment on above: Performed By: #### 8 5499 ####[facility] [place] [address], [place] Glucose [Mass/Vol] 120 mg/dL High 70-100 [facility] Comment on above: Performed By: #### 8 5499 ####[facility] [facility].[address] Glucose [Mass/Vol] 134 mg/dL High 70-100 [facility] Comment on above: Performed By: #### 8 5499 ####[facility] [facility] [place] [address], [facility] [[email or web address]] Glucose [Mass/Vol] 142 mg/dL High 70-100 [facility] Comment on above: Performed By: #### 8 5499 ####[facility] [facility].[address] PROTHROMBIN TIMEon 1 INR Coag (PPP) [Relative time] 1.15 {INR} Normal 0.91-1.16 [facility] Comment on above: Order Comment: Yes: Add [...] OF ACTION, CLINICALEFFECTIVENESS, AND OPTIMAL THERAPEUTIC RANGE. [id number]. Performed By: #### 5 6101, 58838 ####[facility] PT Coag (PPP) [Time] 14.7 s Normal 12.3-14.8 [facility] Comment on above: Order Comment: Yes: Add to Previous draw if ableNurse draw Result Comment: ALL RESULTS MUST BE INTERPRETED WITH RESPECT TO BLOOD DRAWING ARTIFACTOR DILUTION ERROR OF ANTICOAGULANT AT THE TIME OF SAMPLING. Performed By: #### 5 6101, 74368 ####[place] [address] [address] TRIGLYCERIDES BLOODon 2020 Triglyceride [Mass/Vol] 157 mg/dL High 40-149 [facility] Comment on above: Order Comment: Yes: Add to Previous draw if ableNurse draw Result Comment: TRIG LYCERIDE REFERENCE RANGE:20 YEARS AND OLDER CARDIOVASCULAR RISKLESS THAN 150 mg/dl LOW [id number] TO 199 mg/dl BORDERLINE [id number] mg/dl AND GREATER HIGH RISK Performed By: #### 9 9909, 69444, 28070, 53293, 39972 ####[facility] *BLOOD CULTUREon 11-03-2020 *BLOOD CULTURE Clinical Report: (D) Specimen: BLOOD CULTURE Collected: 11/03/2020 14:01 Status: Final Last Updated: 11/08/2020 14:40 (1) At appt per log book CULT RES (Final) No Growth Day 5 Normal [facility] Comment on above: Order Comment: At ap pt per log book Performed By: #### 3 2463 ####[facility] *BLOOD CULTURE Clinical Report: (D) Specimen: BLOOD CULTURE Collected: 11/03/2020 13:36 Status: Final Last Updated: 11/08/2020 14:40 (1) At appt per log book CULT RES (Final) No Growth Day 5 Normal [facility] Comment on above: Order Comment: At ap pt per log book Performed By: #### 3 0313 ####[facility] *MRSA/MSSA DNA NASALon 11-03 *MRSA/MSSA DNA NASAL Clinical Report: (D ) Specimen: NASAL SWAB Collected: 11/03/2020 12:27 Status: Final Last Updated: 11/04/2020 12:54 MSSA DNA (Final) Negative MRSA DNA (Final) Negative Normal [facility] Comment on above: Performed By: #### 3 1595 ####[facility]3000 [facility].[address] BASIC METABOLIC PANELon 03 Calcium [Mass/Vol] 8.3 mg/dL Low 8.6-10.3 [facility] Comment on above: Order Comment: No: D o not add to previous draw Performed By: #### 1 69, 56221 ####[facility] [place] [address], [facility] [[email or web address]] Chloride [Moles/Vol] 103 mmol/L Normal 98-107 [facility] Comment on above: Order Comment: No: D o not add to previous draw Performed By: #### 1 69, 38078 ####[facility] [facility] [place] [address], [facility] [[email or web address]] CO2 [Moles/Vol] 25 mmol/L Normal 21-31 [facility] Comment on above: Order Comment: No: D o not add to previous draw Performed By: #### 1 69, 12096 ####[facility] [facility] [place] [address], [facility] [[email or web address]] Creatinine [Mass/Vol] 0.93 mg/dL Normal 0.70-1.30 [facility] Comment on above: Order Comment: No: D o not add to previous draw Performed By: #### 1 69, 61775 ####[facility] [place] [address], [facility] [[email or web address]] GFR/1.73 sq M.predicted among blacks MDRD (S/P/Bld) [Vol rate/Area] mL/min/{1.73_m2} Normal >60 [facility] Comment on above: Order Comment: No: D o not add to previous draw Result Comment: Calc ulation may not be valid for patients over 70 years Performed By: #### 1 0, 45279 ####[facility] [facility] [place] [address], [facility] [[email or web address]] GFR/1.73 sq M.predicted among non-blacks MDRD (S/P/Bld) [Vol rate/Area] mL/min/{1.73_m2} Normal >60 [facility] Comment on above: Order Comment: No: D o not add to previous draw Result Comment: Calc ulation may not be valid for patients over 70 years Performed By: #### 1 69, 02486 ####[facility] [facility], [place] [address], [place] Glucose [Mass/Vol] 147 mg/dL High 70-100 [facility] Comment on above: Order Comment: No: D o not add to previous draw Performed By: #### 1 69, 35347 ####[facility] [facility], [place] [address], [place] Potassium [Moles/Vol] 3.8 mmol/L Normal 3.5-5.1 [facility] Comment on above: Order Comment: No: D o not add to previous draw Performed By: #### 1 69, 06413 ####[facility] [place] [address], [place] Sodium [Moles/Vol] 136 mmol/L Normal 136-145 [facility] Comment on above: Order Comment: No: D o not add to previous draw Performed By: #### 1 69, 24332 ####[facility] [place] [address], [place] Urea nitrogen [Mass/Vol] 15 mg/dL Normal 7-25 [facility] Comment on above: Order Comment: No: D o not add to previous draw Performed By: #### 1 0070, 48983 ####[facility] CBC COMPLETE BLOOD COUNTon 0 11-03-2020 Erythrocyte distribution width (RBC) [Ratio] 14.9 % Normal 11.5-15.0 [facility] Comment on above: Order Comment: No: D o not add to previous draw Performed By: #### 5 0608 ####[facility] Hematocrit (Bld) [Volume fraction] 39.3 % Normal 39.0-50.0 [facility] Comment on above: Order Comment: No: D o not add to previous draw Performed By: #### 5 0608 ####[facility] Hemoglobin (Bld) [Mass/Vol] 12.0 g/dL Low 13.0-17.0 [facility] Comment on above: Order Comment: No: D o not add to previous draw Performed By: #### 5 0608 ####[place] [address] [address] MCH (RBC) [Entitic mass] 32.0 pg Normal 27.0-33.0 [facility] Comment on above: Order Comment: No: D o not add to previous draw Performed By: #### 5 0608 ####[facility] MCHC (RBC) [Mass/Vol] 30.5 g/dL Low 32.0-35.0 [facility] Comment on above: Order Comment: No: D o not add to previous draw Performed By: #### 5 0608 ####[facility] [place] [address], [facility] [[email or web address]] MCV (RBC) [Entitic vol] 104.8 fL High 82.0-98.0 [facility] Comment on above: Order Comment: No: D o not add to previous draw Performed By: #### 5 0608 ####[facility]3000 [facility].[address] Nucleated RBC/100 WBC (Bld) [Ratio] 0 % Normal 0-0 [facility] Comment on above: Order Comment: No: D o not add to previous draw Performed By: #### 5 0608 ####[facility] [facility].[address] PLAT CNT 208 10*3/uL Normal 150-400 [facility] Comment on above: Order Comment: No: D o not add to previous draw Performed By: #### 5 0608 ####[facility] RBC (Bld) [#/Vol] 3.75 10*6/uL Low 4.20-5.70 [facility] Comment on above: Order Comment: No: D o not add to previous draw Performed By: #### 5 0608 ####[facility]3000 [facility].[address] WBC (Bld) [#/Vol] 26.14 10*3/uL High 4.00-10.60 [facility] Comment on above: Order Comment: No: D o not add to previous draw Performed By: #### 5 0608 ####[facility]3000 [facility].[address] ABDOMEN AND PELVIS WO CON TRASTon 11-03-2020 CT ABDOMEN AND PELVIS WO CONTRAST Normal The [facility] Comment on above: Order Comment: Obstr uction, 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 MAGNESIUM BLOODon 11-03-2020 Magnesium [Mass/Vol] 2.0 mg/dL Normal 1.9-2.7 [facility] Comment on above: Order Comment: No: D o not add to previous draw Performed By: #### 1 0070, 09719 ####[facility] [facility] [place] [address], [facility] [[email or web address]] PHOSPHORUS BLOODon Phosphate [Mass/Vol] 2.8 mg/dL Normal 2.5-5.0 [facility] Comment on above: Order Comment: Yes: Add to Previous draw if able Performed By: #### 4 1000 ####[facility] [place] [address], [place] POC GLUCOSE LABon 11-03-2020 Glucose [Mass/Vol] 120 mg/dL High 70-100 [facility] Comment on above: Performed By: #### 8 5499 ####[facility] [facility] [place] [address], [place] Glucose [Mass/Vol] 141 mg/dL High 70-100 [facility] Comment on above: Performed By: #### 8 5499 ####[facility] [facility], [place] [address], [place] Glucose [Mass/Vol] 77 mg/dL Normal 70-100 [facility] Comment on above: Performed By: #### 8 5499 ####[facility] [facility], [place] [address], [place] Glucose [Mass/Vol] 181 mg/dL High 70-100 [facility] Comment on above: Performed By: #### 8 5499 ####[facility] [place] [address], [place] BASIC METABOLIC PANELon Calcium [Mass/Vol] 7.8 mg/dL Low 8.6-10.3 [facility] Comment on above: Order Comment: No: D o not add to previous draw Performed By: #### 0 0071, 15748 ####[facility] [place] [address], [facility] [[email or web address]] Chloride [Moles/Vol] 109 mmol/L High 98-107 [facility] Comment on above: Order Comment: No: D o not add to previous draw Performed By: #### 0 0071, 70014 ####[facility] [place] [address], [place] CO2 [Moles/Vol] 18 mmol/L Low 21-31 [facility] Comment on above: Order Comment: No: D o not add to previous draw Performed By: #### 0 0071, 49007 ####[facility] [facility] [place] [address], [facility] [[email or web address]] Creatinine [Mass/Vol] 0.92 mg/dL Normal 0.70-1.30 [facility] Comment on above: Order Comment: No: D o not add to previous draw Performed By: #### 0 0071, 85254 ####[facility] [facility], [place] [address], [facility] [[email or web address]] GFR/1.73 sq M.predicted among blacks MDRD (S/P/Bld) [Vol rate/Area] mL/min/{1.73_m2} Normal >60 [facility] Comment on above: Order Comment: No: D o not add to previous draw Result Comment: Calc ulation may not be valid for patients over 70 years Performed By: #### 0 0071, 92209 ####[facility] [place] [address], [facility] [[email or web address]] GFR/1.73 sq M.predicted among non-blacks MDRD (S/P/Bld) [Vol rate/Area] mL/min/{1.73_m2} Normal >60 [facility] Comment on above: Order Comment: No: D o not add to previous draw Result Comment: Calc ulation may not be valid for patients over 70 years Performed By: #### 0 0071, 96948 ####[facility] [place] [address], [facility] [[email or web address]] Glucose [Mass/Vol] 179 mg/dL High 70-100 [facility] Comment on above: Order Comment: No: D o not add to previous draw Performed By: #### 0 0071, 52390 ####[facility] [place] [address], [facility] [[email or web address]] Potassium [Moles/Vol] 4.1 mmol/L Normal 3.5-5.1 [facility] Comment on above: Order Comment: No: D o not add to previous draw Performed By: #### [id number] ####[facility] [place] [address], [facility] [[email or web address]] Sodium [Moles/Vol] 137 mmol/L Normal 136-145 [facility] Comment on above: Order Comment: No: D o not add to previous draw Performed By: #### 0 0071, [id number] ####[facility] [facility], [place] [address], [facility] [[email or web address]] Urea nitrogen [Mass/Vol] 18 mg/dL Normal 7-25 [facility] Comment on above: Order Comment: No: D o not add to previous draw Performed By: #### 0 0071, 27856 ####[facility] [facility] [place] [place] CBC COMPLETE BLOOD COUNTon 0 - Erythrocyte distribution width (RBC) [Ratio] 14.9 % Normal 11.5-15.0 [facility] Comment on above: Order Comment: No: D o not add to previous draw Performed By: #### 5 0608 ####[facility] [place] [address], [facility] [[email or web address]] Hematocrit (Bld) [Volume fraction] 36.4 % Low 39.0-50.0 [facility] Comment on above: Order Comment: No: D o not add to previous draw Performed By: #### 5 0608 ####[facility] Hemoglobin (Bld) [Mass/Vol] 11.0 g/dL Low 13.0-17.0 [facility] Comment on above: Order Comment: No: D o not add to previous draw Performed By: #### 5 0608 ####[facility] [place] [address] MCH (RBC) [Entitic mass] 32.4 pg Normal 27.0-33.0 [facility] Comment on above: Order Comment: No: D o not add to previous draw Performed By: #### 5 0608 ####[address] MCHC (RBC) [Mass/Vol] 30.2 g/dL Low 32.0-35.0 [facility] Comment on above: Order Comment: No: D o not add to previous draw Performed By: #### 5 0608 ####[address] MCV (RBC) [Entitic vol] 107.1 fL High 82.0-98.0 [facility] Comment on above: Order Comment: No: D o not add to previous draw Performed By: #### 5 0608 ####[address] Nucleated RBC/100 WBC (Bld) [Ratio] 0 % Normal 0-0 [facility] Comment on above: Order Comment: No: D o not add to previous draw Performed By: #### 5 0608 ####[address] PLAT CNT 169 10*3/uL Normal 150-400 [facility] Comment on above: Order Comment: No: D o not add to previous draw Performed By: #### 5 0608 ####[facility] [place] [address], [facility] [[email or web address]] RBC (Bld) [#/Vol] 3.40 10*6/uL Low 4.20-5.70 [facility] Comment on above: Order Comment: No: D o not add to previous draw Performed By: #### 5 0608 ####[facility] [place] [address], [facility] [[email or web address]] WBC (Bld) [#/Vol] 24.00 10*3/uL High 4.00-10.60 [facility] Comment on above: Order Comment: No: D o not add to previous draw Performed By: #### 5 0608 ####[facility] [facility] [place] [id number], [facility] [[email or web address]] MAGNESIUM BLOODon 11-02-2020 Magnesium [Mass/Vol] 2.0 mg/dL Normal 1.9-2.7 [facility] Comment on above: Order Comment: No: D o not add to previous draw Performed By: #### 0 0071, 36345 ####[facility] [facility], [place] [address], [facility] [[email or web address]] POC GLUCOSE LABon 11-02-2020 Glucose [Mass/Vol] 156 mg/dL High 70-100 [facility] Comment on above: Performed By: #### 8 5499 ####[facility] [id number], [facility] [[email or web address]] Glucose [Mass/Vol] 150 mg/dL High 70-100 [facility] Comment on above: Performed By: #### 8 5499 ####[facility] [place] [address], [facility] [[email or web address]] Glucose [Mass/Vol] 151 mg/dL High 70-100 [facility] Comment on above: Performed By: #### 8 5499 ####[facility] [place] [address], [place] Glucose [Mass/Vol] 169 mg/dL High 70-100 [facility] Comment on above: Performed By: #### 8 5499 ####[facility] [place] [address], [place] Glucose [Mass/Vol] 160 mg/dL High 70-100 [facility] Comment on above: Performed By: #### 8 5499 ####[facility] [place] [address], [place] PORTABLE ABDOMENon PORTABLE ABDOMEN Normal [facility] Comment on above: Order Comment: Evalu ate for Ileus BASIC METABOLIC PANELon Calcium [Mass/Vol] 7.8 mg/dL Low 8.6-10.3 [facility] Comment on above: Order Comment: No: D o not add to previous draw Performed By: #### 1 69, 44475 ####[facility] [place] [address], [place] Chloride [Moles/Vol] 106 mmol/L Normal 98-107 [facility] Comment on above: Order Comment: No: D o not add to previous draw Performed By: #### 1 69, 42800 ####[facility] [place] [address], [place] CO2 [Moles/Vol] 28 mmol/L Normal 21-31 [facility] Comment on above: Order Comment: No: D o not add to previous draw Performed By: #### 1 69, 57805 ####[facility] [place] [address], [place] Creatinine [Mass/Vol] 0.91 mg/dL Normal 0.70-1.30 [facility] Comment on above: Order Comment: No: D o not add to previous draw Performed By: #### 1 69, 70428 ####[facility] [place] [address], [place] GFR/1.73 sq M.predicted among blacks MDRD (S/P/Bld) [Vol rate/Area] mL/min/{1.73_m2} Normal >60 [facility] Comment on above: Order Comment: No: D o not add to previous draw Result Comment: Calc ulation may not be valid for patients over 70 years Performed By: #### 1 69, 04066 ####[facility] [place] [address], [place] GFR/1.73 sq M.predicted among non-blacks MDRD (S/P/Bld) [Vol rate/Area] mL/min/{1.73_m2} Normal >60 [facility] Comment on above: Order Comment: No: D o not add to previous draw Result Comment: Calc ulation may not be valid for patients over 70 years Performed By: #### 1 69, 17712 ####[facility] [place] [address], [place] Glucose [Mass/Vol] 326 mg/dL High 70-100 [facility] Comment on above: Order Comment: No: D o not add to previous draw Performed By: #### 1 69, 27888 ####[facility] [place] [address], [place] Potassium [Moles/Vol] 4.7 mmol/L Normal 3.5-5.1 [facility] Comment on above: Order Comment: No: D o not add to previous draw Performed By: #### 1 69, 86027 ####[facility] [place] [address], [place] Sodium [Moles/Vol] 137 mmol/L Normal 136-145 [facility] Comment on above: Order Comment: No: D o not add to previous draw Performed By: #### 1 69, 59849 ####[facility]3000 [facility].[address] Urea nitrogen [Mass/Vol] 19 mg/dL Normal 7-25 [facility] Comment on above: Order Comment: No: D o not add to previous draw Performed By: #### 1 0070, 34751 ####[facility] [facility].[address] CBC COMPLETE BLOOD COUNTon 0 11-01-2020 Erythrocyte distribution width (RBC) [Ratio] 14.6 % Normal 11.5-15.0 [facility] Comment on above: Order Comment: No: D o not add to previous draw Performed By: #### 5 0608 ####[facility] Hematocrit (Bld) [Volume fraction] 34.1 % Low 39.0-50.0 [facility] Comment on above: Order Comment: No: D o not add to previous draw Performed By: #### 5 0608 ####[facility] [facility].[address] Hemoglobin (Bld) [Mass/Vol] 10.8 g/dL Low 13.0-17.0 [facility] Comment on above: Order Comment: No: D o not add to previous draw Performed By: #### 5 0608 ####[facility] [facility].[address] MCH (RBC) [Entitic mass] 32.1 pg Normal 27.0-33.0 [facility] Comment on above: Order Comment: No: D o not add to previous draw Performed By: #### 5 0608 ####[facility] [facility].[address] MCHC (RBC) [Mass/Vol] 31.7 g/dL Low 32.0-35.0 [facility] Comment on above: Order Comment: No: D o not add to previous draw Performed By: #### 5 0608 ####[facility] [place] [address], [facility] [[email or web address]] MCV (RBC) [Entitic vol] 101.5 fL High 82.0-98.0 [facility] Comment on above: Order Comment: No: D o not add to previous draw Performed By: #### 5 0608 ####[facility] [facility] [place] [address], [facility] [[email or web address]] Nucleated RBC/100 WBC (Bld) [Ratio] 0 % Normal 0-0 [facility] Comment on above: Order Comment: No: D o not add to previous draw Performed By: #### 5 0608 ####[facility] [place] [address], [facility] [[email or web address]] PLAT CNT 189 10*3/uL Normal 150-400 [facility] Comment on above: Order Comment: No: D o not add to previous draw Performed By: #### 5 0608 ####[place] [id number] [facility] [place] [address], [facility] [[email or web address]] RBC (Bld) [#/Vol] 3.36 10*6/uL Low 4.20-5.70 [facility] Comment on above: Order Comment: No: D o not add to previous draw Performed By: #### 5 0608 ####[facility] [facility] [place] [address], [facility] [[email or web address]] WBC (Bld) [#/Vol] 24.92 10*3/uL High 4.00-10.60 [facility] Comment on above: Order Comment: No: D o not add to previous draw Performed By: #### 5 0608 ####[facility] [facility] [place] [address], [facility] [[email or web address]] MAGNESIUM BLOODon 11-01-2020 Magnesium [Mass/Vol] 1.9 mg/dL Normal 1.9-2.7 [facility] Comment on above: Order Comment: No: D o not add to previous draw Performed By: #### 1 0070, 86011 ####[facility] [place] [address], [facility] [[email or web address]] POC GLUCOSE LABon 11-01-2020 Glucose [Mass/Vol] 133 mg/dL High 70-100 [facility] Comment on above: Performed By: #### 8 5499 ####[facility] [place] [address], [place] Glucose [Mass/Vol] 157 mg/dL High 70-100 [facility] Comment on above: Performed By: #### 8 5499 ####[facility] [place] [address], [place] Glucose [Mass/Vol] 140 mg/dL High 70-100 [facility] Comment on above: Performed By: #### 8 5499 ####[facility] [place] [address], [place] Glucose [Mass/Vol] 164 mg/dL High 70-100 [facility] Comment on above: Performed By: #### 8 5499 ####[facility] [facility] [place] [address], [facility] [[email or web address]] BASIC METABOLIC PANELon 03-0 Calcium [Mass/Vol] 7.9 mg/dL Low 8.6-10.3 [facility] Comment on above: Order Comment: No: D o not add to previous draw Performed By: #### 0 0071, 64396 ####[facility] [place] [address], [place] Chloride [Moles/Vol] 106 mmol/L Normal 98-107 [facility] Comment on above: Order Comment: No: D o not add to previous draw Performed By: #### 0 0071, 61616 ####[facility] [place] [address], [place] CO2 [Moles/Vol] 28 mmol/L Normal 21-31 [facility] Comment on above: Order Comment: No: D o not add to previous draw Performed By: #### 0 0071, 33995 ####[facility] [place] [address], [place] Creatinine [Mass/Vol] 0.87 mg/dL Normal 0.70-1.30 [facility] Comment on above: Order Comment: No: D o not add to previous draw Performed By: #### 0 0071, 36527 ####[facility] [place] [address], [place] GFR/1.73 sq M.predicted among blacks MDRD (S/P/Bld) [Vol rate/Area] mL/min/{1.73_m2} Normal >60 [facility] Comment on above: Order Comment: No: D o not add to previous draw Result Comment: Calc ulation may not be valid for patients over 70 years Performed By: #### 0 0071, 49531 ####[facility] [place] [address], [place] GFR/1.73 sq M.predicted among non-blacks MDRD (S/P/Bld) [Vol rate/Area] mL/min/{1.73_m2} Normal >60 [facility] Comment on above: Order Comment: No: D o not add to previous draw Result Comment: Calc ulation may not be valid for patients over 70 years Performed By: #### 0 0071, 99667 ####[facility] [place] [address], [place] Glucose [Mass/Vol] 209 mg/dL High 70-100 [facility] Comment on above: Order Comment: No: D o not add to previous draw Performed By: #### 0 0071, 26882 ####[facility] [place] [address], [place] Potassium [Moles/Vol] 3.5 mmol/L Normal 3.5-5.1 [facility] Comment on above: Order Comment: No: D o not add to previous draw Performed By: #### 0 0071, 85452 ####[facility] [place] [address], [facility] [[email or web address]] Sodium [Moles/Vol] 143 mmol/L Normal 136-145 [facility] Comment on above: Order Comment: No: D o not add to previous draw Performed By: #### 0 0071, 64638 ####[facility] Urea nitrogen [Mass/Vol] 20 mg/dL Normal 7-25 [facility] Comment on above: Order Comment: No: D o not add to previous draw Performed By: #### 0 0071, 19604 ####[facility] CBC COMPLETE BLOOD COUNTon 0 - Erythrocyte distribution width (RBC) [Ratio] 14.5 % Normal 11.5-15.0 [facility] Comment on above: Order Comment: No: D o not add to previous draw Performed By: #### 5 0608 ####[facility] [facility].[address] Hematocrit (Bld) [Volume fraction] 33.3 % Low 39.0-50.0 [facility] Comment on above: Order Comment: No: D o not add to previous draw Performed By: #### 5 0608 ####[facility] [place] [address], [facility] [[email or web address]] Hemoglobin (Bld) [Mass/Vol] 10.7 g/dL Low 13.0-17.0 [facility] Comment on above: Order Comment: No: D o not add to previous draw Performed By: #### 5 0608 ####[facility] MCH (RBC) [Entitic mass] 31.6 pg Normal 27.0-33.0 [facility] Comment on above: Order Comment: No: D o not add to previous draw Performed By: #### 5 0608 ####[facility] [facility] [place] [address], [facility] [[email or web address]] MCHC (RBC) [Mass/Vol] 32.1 g/dL Normal 32.0-35.0 [facility] Comment on above: Order Comment: No: D o not add to previous draw Performed By: #### 5 0608 ####[address] MCV (RBC) [Entitic vol] 98.2 fL High 82.0-98.0 [facility] Comment on above: Order Comment: No: D o not add to previous draw Performed By: #### 5 0608 ####[address] Nucleated RBC/100 WBC (Bld) [Ratio] 0 % Normal 0-0 [facility] Comment on above: Order Comment: No: D o not add to previous draw Performed By: #### 5 0608 ####[address] PLAT CNT 168 10*3/uL Normal 150-400 [facility] Comment on above: Order Comment: No: D o not add to previous draw Performed By: #### 5 0608 ####[address] [place] [address], [facility] [[email or web address]] RBC (Bld) [#/Vol] 3.39 10*6/uL Low 4.20-5.70 [facility] Comment on above: Order Comment: No: D o not add to previous draw Performed By: #### 5 0608 ####[address] [place] [address], [place] WBC (Bld) [#/Vol] 20.00 10*3/uL High 4.00-10.60 [facility] Comment on above: Order Comment: No: D o not add to previous draw Performed By: #### 5 0608 ####[facility] [place] [address], [place] MAGNESIUM BLOODon 10-31-2020 Magnesium [Mass/Vol] 2.1 mg/dL Normal 1.9-2.7 [facility] Comment on above: Order Comment: No: D o not add to previous draw Performed By: #### 0 0071, 22289 ####[facility] [place] [address], [place] POC GLUCOSE LABon 10-31-2020 Glucose [Mass/Vol] 168 mg/dL High 70-100 [facility] Comment on above: Performed By: #### 8 5499 ####[facility] [place] [address], [place] Glucose [Mass/Vol] 179 mg/dL High 70-100 [facility] Comment on above: Performed By: #### 8 5499 ####[facility] [place] [address], [place] Glucose [Mass/Vol] 173 mg/dL High 70-100 [facility] Comment on above: Performed By: #### 8 5499 ####[facility] [place] [address], [place] Glucose [Mass/Vol] 205 mg/dL High 70-100 [facility] Comment on above: Performed By: #### 8 5499 ####[facility] [place] [address], [place] Glucose [Mass/Vol] 236 mg/dL High 70-100 [facility] Comment on above: Performed By: #### 8 5499 ####[facility] [place] [address], [facility] [[email or web address]] BASIC METABOLIC PANELon 10-04 Calcium [Mass/Vol] 7.7 mg/dL Low 8.6-10.3 [facility] Comment on above: Order Comment: No: D o not add to previous draw Performed By: #### 0 0071, 63836 ####[facility] [place] [address], [facility] [[email or web address]] Chloride [Moles/Vol] 108 mmol/L High 98-107 [facility] Comment on above: Order Comment: No: D o not add to previous draw Performed By: #### 0 0071, 34226 ####[facility] [place] [address], [facility] [[email or web address]] CO2 [Moles/Vol] 26 mmol/L Normal 21-31 [facility] Comment on above: Order Comment: No: D o not add to previous draw Performed By: #### 0 0071, 95595 ####[facility] [facility] [place] [address], [facility] [[email or web address]] Creatinine [Mass/Vol] 0.85 mg/dL Normal 0.70-1.30 [facility] Comment on above: Order Comment: No: D o not add to previous draw Performed By: #### 0 0071, 76015 ####[facility] [place] [address], [facility] [[email or web address]] GFR/1.73 sq M.predicted among blacks MDRD (S/P/Bld) [Vol rate/Area] mL/min/{1.73_m2} Normal >60 [facility] Comment on above: Order Comment: No: D o not add to previous draw Result Comment: Calc ulation may not be valid for patients over 70 years Performed By: #### 0 0071, 04559 ####[facility] GFR/1.73 sq M.predicted among non-blacks MDRD (S/P/Bld) [Vol rate/Area] mL/min/{1.73_m2} Normal >60 [facility] Comment on above: Order Comment: No: D o not add to previous draw Result Comment: Calc ulation may not be valid for patients over 70 years Performed By: #### 0 0071, 85472 ####[facility]3000 [facility].[address] Glucose [Mass/Vol] 205 mg/dL High 70-100 [facility] Comment on above: Order Comment: No: D o not add to previous draw Performed By: #### 0 0071, 36362 ####[facility]3000 [facility].[address] Potassium [Moles/Vol] 3.7 mmol/L Normal 3.5-5.1 [facility] Comment on above: Order Comment: No: D o not add to previous draw Performed By: #### 0 0071, 19887 ####[facility]3000 [facility].[address] Sodium [Moles/Vol] 140 mmol/L Normal 136-145 [facility] Comment on above: Order Comment: No: D o not add to previous draw Performed By: #### 0 0071, 87519 ####[facility]3000 [facility].[address] Urea nitrogen [Mass/Vol] 21 mg/dL Normal 7-25 [facility] Comment on above: Order Comment: No: D o not add to previous draw Performed By: #### 0 0071, 18945 ####[facility] [facility] [place] [address], [facility] [[email or web address]] CBC COMPLETE BLOOD COUNTon 0 - Erythrocyte distribution width (RBC) [Ratio] 15.0 % Normal 11.5-15.0 [facility] Comment on above: Order Comment: No: D o not add to previous draw Performed By: #### 5 0608 ####[facility] Hematocrit (Bld) [Volume fraction] 33.5 % Low 39.0-50.0 [facility] Comment on above: Order Comment: No: D o not add to previous draw Performed By: #### 5 0608 ####[facility] Hemoglobin (Bld) [Mass/Vol] 10.7 g/dL Low 13.0-17.0 [facility] Comment on above: Order Comment: No: D o not add to previous draw Performed By: #### 5 0608 ####[address] MCH (RBC) [Entitic mass] 31.7 pg Normal 27.0-33.0 [facility] Comment on above: Order Comment: No: D o not add to previous draw Performed By: #### 5 0608 ####[facility] MCHC (RBC) [Mass/Vol] 31.9 g/dL Low 32.0-35.0 [facility] Comment on above: Order Comment: No: D o not add to previous draw Performed By: #### 5 0608 ####[facility] [place] [address], [facility] [[email or web address]] MCV (RBC) [Entitic vol] 99.1 fL High 82.0-98.0 [facility] Comment on above: Order Comment: No: D o not add to previous draw Performed By: #### 5 0608 ####[facility] Nucleated RBC/100 WBC (Bld) [Ratio] 0 % Normal 0-0 [facility] Comment on above: Order Comment: No: D o not add to previous draw Performed By: #### 5 0608 ####[facility] [place] [address], [facility] [[email or web address]] PLAT CNT 156 10*3/uL Normal 150-400 [facility] Comment on above: Order Comment: No: D o not add to previous draw Performed By: #### 5 0608 ####[facility] [id number], [facility] [[email or web address]] RBC (Bld) [#/Vol] 3.38 10*6/uL Low 4.20-5.70 [facility] Comment on above: Order Comment: No: D o not add to previous draw Performed By: #### 5 0608 ####[facility] [place] [address], [facility] [[email or web address]] WBC (Bld) [#/Vol] 19.93 10*3/uL High 4.00-10.60 [facility] Comment on above: Order Comment: No: D o not add to previous draw Performed By: #### 5 0608 ####[facility] [facility] [place] [address], [facility] [[email or web address]] MAGNESIUM BLOODon 10-30-2020 Magnesium [Mass/Vol] 2.1 mg/dL Normal 1.9-2.7 [facility] Comment on above: Order Comment: No: D o not add to previous draw Performed By: #### 0 0071, [id number] ####[facility] [place] [address], [facility] [[email or web address]] POC GLUCOSE LABon 10-30-2020 Glucose [Mass/Vol] 178 mg/dL High 70-100 [facility] Comment on above: Performed By: #### 8 5499 ####[facility] [place] [address], [place] Glucose [Mass/Vol] 173 mg/dL High 70-100 [facility] Comment on above: Performed By: #### 8 5499 ####[facility] [place] [address], [place] Glucose [Mass/Vol] 192 mg/dL High 70-100 [facility] Comment on above: Performed By: #### 8 5499 ####[facility] [place] [address], [place] Glucose [Mass/Vol] 176 mg/dL High 70-100 [facility] Comment on above: Performed By: #### 8 5499 ####[facility] [facility] [place] [address], [place] Glucose [Mass/Vol] 211 mg/dL High 70-100 [facility] Comment on above: Performed By: #### 8 5499 ####[facility] [facility] [place] [address], [facility] [[email or web address]] BASIC METABOLIC PANELon 02-2 -2020 Calcium [Mass/Vol] 7.6 mg/dL Low 8.6-10.3 [facility] Comment on above: Order Comment: No: D o not add to previous draw Performed By: #### 0 0071, 99801 ####[facility] [facility] [place] [address], [place] Chloride [Moles/Vol] 111 mmol/L High 98-107 [facility] Comment on above: Order Comment: No: D o not add to previous draw Performed By: #### 0 0071, [id number] ####[facility] [place] [address], [place] CO2 [Moles/Vol] 21 mmol/L Normal 21-31 [facility] Comment on above: Order Comment: No: D o not add to previous draw Performed By: #### 0 0071, 19353 ####[facility] [place] [address], [facility] [[email or web address]] Creatinine [Mass/Vol] 0.90 mg/dL Normal 0.70-1.30 [facility] Comment on above: Order Comment: No: D o not add to previous draw Performed By: #### 0 0071, 79800 ####[facility] [place] [address], [facility] [[email or web address]] GFR/1.73 sq M.predicted among blacks MDRD (S/P/Bld) [Vol rate/Area] mL/min/{1.73_m2} Normal >60 [facility] Comment on above: Order Comment: No: D o not add to previous draw Result Comment: Calc ulation may not be valid for patients over 70 years Performed By: #### 0 0071, 59832 ####[facility] [place] [address], [facility] [[email or web address]] GFR/1.73 sq M.predicted among non-blacks MDRD (S/P/Bld) [Vol rate/Area] mL/min/{1.73_m2} Normal >60 [facility] Comment on above: Order Comment: No: D o not add to previous draw Result Comment: Calc ulation may not be valid for patients over 70 years Performed By: #### 0 0071, 49180 ####[facility] [place] [address], [facility] [[email or web address]] Glucose [Mass/Vol] 164 mg/dL High 70-100 [facility] Comment on above: Order Comment: No: D o not add to previous draw Performed By: #### 0 0071, 37663 ####[facility] [place] [address], [place] Potassium [Moles/Vol] 3.7 mmol/L Normal 3.5-5.1 [facility] Comment on above: Order Comment: No: D o not add to previous draw Performed By: #### 0 0071, 10986 ####[facility] [place] [address], [facility] [[email or web address]] Sodium [Moles/Vol] 140 mmol/L Normal 136-145 [facility] Comment on above: Order Comment: No: D o not add to previous draw Performed By: #### 0 0071, 55501 ####[facility] [place] [address], [place] Urea nitrogen [Mass/Vol] 21 mg/dL Normal 7-25 [facility] Comment on above: Order Comment: No: D o not add to previous draw Performed By: #### 0 0071, 57635 ####[facility] [id number], [facility] [[email or web address]] Calcium [Mass/Vol] 7.2 mg/dL Low 8.6-10.3 [facility] Comment on above: Order Comment: No: D o not add to previous draw Performed By: #### 0 0071, 34448 ####[facility] [place] [address], [place] Chloride [Moles/Vol] 111 mmol/L High 98-107 [facility] Comment on above: Order Comment: No: D o not add to previous draw Performed By: #### 0 0071, 44802 ####[facility] [place] [address], [place] CO2 [Moles/Vol] 21 mmol/L Normal 21-31 [facility] Comment on above: Order Comment: No: D o not add to previous draw Performed By: #### 0 0071, 65022 ####[facility] [place] [address], [place] Creatinine [Mass/Vol] 0.99 mg/dL Normal 0.70-1.30 [facility] Comment on above: Order Comment: No: D o not add to previous draw Performed By: #### 0 0071, 89776 ####[facility] [place] [address], [facility] [[email or web address]] GFR/1.73 sq M.predicted among blacks MDRD (S/P/Bld) [Vol rate/Area] mL/min/{1.73_m2} Normal >60 [facility] Comment on above: Order Comment: No: D o not add to previous draw Result Comment: Calc ulation may not be valid for patients over 70 years Performed By: #### 0 0071, 10848 ####[facility] [place] [address], [facility] [[email or web address]] GFR/1.73 sq M.predicted among non-blacks MDRD (S/P/Bld) [Vol rate/Area] mL/min/{1.73_m2} Normal >60 [facility] Comment on above: Order Comment: No: D o not add to previous draw Result Comment: Calc ulation may not be valid for patients over 70 years Performed By: #### 0 0071, 56519 ####[facility] [place] [address], [facility] [[email or web address]] Glucose [Mass/Vol] 133 mg/dL High 70-100 [facility] Comment on above: Order Comment: No: D o not add to previous draw Performed By: #### 0 0071, 04369 ####[facility] [place] [address], [facility] [[email or web address]] Potassium [Moles/Vol] 3.8 mmol/L Normal 3.5-5.1 [facility] Comment on above: Order Comment: No: D o not add to previous draw Performed By: #### 0 0071, 58843 ####[facility] [place] [address], [place] Sodium [Moles/Vol] 140 mmol/L Normal 136-145 [facility] Comment on above: Order Comment: No: D o not add to previous draw Performed By: #### 0 0071, 43428 ####[facility] [place] [address], [place] Urea nitrogen [Mass/Vol] 20 mg/dL Normal 7-25 [facility] Comment on above: Order Comment: No: D o not add to previous draw Performed By: #### 0 0071, 26029 ####[facility] [place] [address] CBC W/DIFFon 10-29-2020 ABS BASOPHILS CANCELED Normal 0.0-0.2 [facility] Comment on above: Result Comment: The released value 0.0 was canceled by KNG on 10/29/2020 22:20 Performed By: #### 5 0103 ####[facility] [place] [address] ABS EOSINOPHILS CANCELED Normal 0.0-0.5 [facility] Comment on above: Result Comment: The released value 0.0 was canceled by KNG on 10/29/2020 22:20 Performed By: #### 5 0103 ####[facility] ABS IMM GRANS CANCELED Normal [facility] Comment on above: Performed By: #### 5 0103 ####[facility] ABS IMM GRANS 0.1 10*3/uL Normal 0.0-0.2 [facility] Comment on above: Order Comment: This order is a replacement of the rejected order with accession [id number]. Performed By: #### 5 0103 ####[facility] ABS LYMPHS CANCELED Normal 1.2-4.0 [facility] Comment on above: Result Comment: The released value 8.3 was canceled by KNG on 10/29/2020 22:20 Performed By: #### 5 0103 ####[facility] [place] [address], [facility] [[email or web address]] ABS MONOCYTES CANCELED Normal 0.1-1.0 [facility] Comment on above: Result Comment: The released value 0.2 was canceled by KNG on 10/29/2020 22:20 Performed By: #### 5 0103 ####[facility] [place] [address], [facility] [[email or web address]] ABS NEUTROPHILS CANCELED Normal 1.6-7.6 [facility] Comment on above: Result Comment: The released value 12.9 was canceled by KNG on 10/29/2020 22:20 Performed By: #### 5 0103 ####[facility] [place] [address], [facility] [[email or web address]] ABS NEUTROPHILS 4.8 10*3/uL Normal 1.6-7.6 The [facility] Comment on above: Order Comment: This order is a replacement of the rejected order with accession [id number]. Performed By: #### 5 0103 ####[facility] [place] [address], [facility] [[email or web address]] ABSOLUTE BANDS CANCELED Normal The [facility] Comment on above: Performed By: #### 5 0103 ####[facility] ACANTHOCYTES CANCELED Normal The [facility] Comment on above: Performed By: #### 5 0103 ####[facility] [place] [address], [facility] [[email or web address]] ANISO CANCELED Normal The [facility] Comment on above: Performed By: #### 5 0103 ####[facility] [place] [address], [facility] [[email or web address]] ATYPICAL CELLS CANCELED Normal The [facility] Comment on above: Performed By: #### 5 0103 ####[facility] [place] [address], [facility] [[email or web address]] BANDS CANCELED Normal The [facility] Comment on above: Performed By: #### 5 3 ####[facility] [place] [address], [facility] [[email or web address]] BASO CANCELED Normal 0.0-1.0 [facility] Comment on above: Result Comment: The released value 0.0 was canceled by KNG on 10/29/2020 22:20 Performed By: #### 5 3 ####[facility] [place] [address], [facility] [[email or web address]] BASOPHIL STIPPL CANCELED Normal The [facility] Comment on above: Performed By: #### 3 ####[facility] [place] [address], [facility] [[email or web address]] Basophils (Bld) [#/Vol] 0.0 10*3/uL Normal 0.0-0.2 [facility] Comment on above: Order Comment: This order is a replacement of the rejected order with accession [id number]. Performed By: #### 3 ####[facility] [place] [address], [facility] [[email or web address]] Basophils/100 WBC (Bld) 0.2 % Normal 0.0-1.0 [facility] Comment on above: Order Comment: This order is a replacement of the rejected order with accession [id number]. Performed By: #### 3 ####[facility] [place] [address], [facility] [[email or web address]] BLASTS CANCELED Normal The [facility] Comment on above: Performed By: #### 3 ####[facility] [place] [address], [facility] [[email or web address]] PARAMJIT CELLS CANCELED Normal The [facility] Comment on above: Performed By: #### 3 ####[facility] [facility].[address] DOHLE BODIES CANCELED Normal The [facility] Comment on above: Performed By: #### 5 0103 ####[facility] [facility].[address] ELLIPTOCYTES CANCELED Normal The [facility] Comment on above: Performed By: #### 5 0103 ####[facility] [facility] [place] [address], [facility] [[email or web address]] EOS CANCELED Normal 0.0-6.0 [facility] Comment on above: Result Comment: The released value 0.0 was canceled by KNRegina on 10/29/2020 22:20 Performed By: #### 5 0103 ####[facility] [facility].[address] Eosinophils (Bld) [#/Vol] 0.0 10*3/uL Normal 0.0-0.5 [facility] Comment on above: Order Comment: This order is a replacement of the rejected order with accession [id number]. Performed By: #### 5 0103 ####[facility] [facility].[address] Eosinophils/100 WBC (Bld) 0.2 % Normal 0.0-6.0 [facility] Comment on above: Order Comment: This order is a replacement of the rejected order with accession [id number]. Performed By: #### 5 0103 ####[facility] [facility].[address] Erythrocyte distribution width (RBC) [Ratio] 15.0 % Normal 11.5-15.0 [facility] Comment on above: Order Comment: This order is a replacement of the rejected order with accession [id number]. Performed By: #### 5 0103 ####[facility] [place] [address], [facility] [[email or web address]] GIANT PLATELETS CANCELED Normal The [facility] Comment on above: Result Comment: The released value Present was canceled by KNG on 10/29/2020 22:20 Performed By: #### 5 0103 ####[facility] [place] [address], [facility] [[email or web address]] GIANT PLATELETS Present Normal The [facility] Comment on above: Order Comment: This order is a replacement of the rejected order with accession [id number]. Performed By: #### 5 0103 ####[facility] [place] [address], [facility] [[email or web address]] HCT CANCELED Normal 39.0-50.0 [facility] Comment on above: Result Comment: The released value 35.5 was canceled by KNG on 10/29/2020 22:20 Performed By: #### 5 0103 ####[facility] [place] [address], [facility] [[email or web address]] HELMET CELLS CANCELED Normal The [facility] Comment on above: Performed By: #### 5 0103 ####[place] [id number] Hematocrit (Bld) [Volume fraction] 35.5 % Low 39.0-50.0 [facility] Comment on above: Order Comment: This order is a replacement of the rejected order with accession [id number]. Performed By: #### 5 0103 ####[facility] [place] [address], [facility] [[email or web address]] Hemoglobin (Bld) [Mass/Vol] 11.0 g/dL Low 13.0-17.0 [facility] Comment on above: Order Comment: This order is a replacement of the rejected order with accession [id number]. Performed By: #### 5 0103 ####[facility] [place] [address], [facility] [[email or web address]] HGB CANCELED Normal 13.0-17.0 The [facility] Comment on above: Result Comment: The released value 11.0 was canceled by KNRegina on 10/29/2020 22:20 Performed By: #### 5 0103 ####[facility] [place] [address], [facility] [[email or web address]] MAN JOLLY BODIES CANCELED Normal The [facility] Comment on above: Performed By: #### 5 0103 ####[facility] [place] [address], [facility] [[email or web address]] HYPERSEG NEUTROPHILS CANCELED Normal The [facility] Comment on above: Performed By: #### 5 0103 ####[facility] [place] [address], [facility] [[email or web address]] HYPO CANCELED Normal The [facility] Comment on above: Performed By: #### 5 0103 ####[facility] [place] [address], [facility] [[email or web address]] IL CANCELED Normal The [facility] Comment on above: Performed By: #### 5 0103 ####[facility] [place] [address], [facility] [[email or web address]] IMM PLATELET FRAC CANCELED Normal The [facility] Comment on above: Performed By: #### 5 0103 ####[facility] [place] [address], [facility] [[email or web address]] IMMATURE GRANS CANCELED Normal The [facility] Comment on above: Performed By: #### 5 0103 ####[facility] [place] [address], [facility] [[email or web address]] IMMATURE GRANS 0.3 % Normal 0.0-1.0 The [facility] Comment on above: Order Comment: This order is a replacement of the rejected order with accession [id number]. Performed By: #### 5 0103 ####[facility] [facility].[address] Lymphocytes (Bld) [#/Vol] 16.0 10*3/uL High 1.2-4.0 The [facility] Comment on above: Order Comment: This order is a replacement of the rejected order with accession [id number]. Performed By: #### 5 0103 ####[facility] Lymphocytes/100 WBC (Bld) 74.9 % High 20.0-45.0 The [facility] Comment on above: Order Comment: This order is a replacement of the rejected order with accession [id number]. Performed By: #### 5 0103 ####[facility] LYMPHS CANCELED Normal 20.0-45.0 The [facility] Comment on above: Result Comment: The released value 38.6 was canceled by KNG on 10/29/2020 22:20 Performed By: #### 5 0103 ####[facility] MACRO CANCELED Normal The [facility] Comment on above: Performed By: #### 5 0103 ####[facility] MCH CANCELED Normal 27.0-33.0 [facility] Comment on above: Result Comment: The released value 31.9 was canceled by KNG on 10/29/2020 22:20 Performed By: #### 5 0103 ####[facility] MCH (RBC) [Entitic mass] 31.9 pg Normal 27.0-33.0 [facility] Comment on above: Order Comment: This order is a replacement of the rejected order with accession [id number]. Performed By: #### 5 0103 ####[facility] [facility].[address] MCHC CANCELED Normal 32.0-35.0 [facility] Comment on above: Result Comment: The released value 31.0 was canceled by KNG on 10/29/2020 22:20 Performed By: #### 5 0103 ####[facility] [facility].[address] MCHC (RBC) [Mass/Vol] 31.0 g/dL Low 32.0-35.0 [facility] Comment on above: Order Comment: This order is a replacement of the rejected order with accession [id number]. Performed By: #### 5 3 ####[facility] MCV CANCELED Normal 82.0-98.0 [facility] Comment on above: Result Comment: The released value 102.9 was canceled by KNG on 10/29/2020 22:20 Performed By: #### 5 0103 ####[facility] [facility] [place] [address], [facility] [[email or web address]] MCV (RBC) [Entitic vol] 102.9 fL High 82.0-98.0 The [facility] Comment on above: Order Comment: This order is a replacement of the rejected order with accession [id number]. Performed By: #### 5 3 ####[facility] [facility] [place] [address], [facility] [[email or web address]] METAMYELO CANCELED Normal The [facility] Comment on above: Performed By: #### 5 3 ####[facility] [facility] [place] [address], [facility] [[email or web address]] MICRO CANCELED Normal The [facility] Comment on above: Performed By: #### 5 3 ####[facility] [facility] [place] [address], [facility] [[email or web address]] Monocytes (Bld) [#/Vol] 0.4 10*3/uL Normal 0.1-1.0 [facility] Comment on above: Order Comment: This order is a replacement of the rejected order with accession [id number]. Performed By: #### 5 0103 ####[facility] [facility] [place] [address], [facility] [[email or web address]] MONOS CANCELED Normal 5.0-12.0 [facility] Comment on above: Result Comment: The released value 1.0 was canceled by KNG on 10/29/2020 22:20 Performed By: #### 5 0103 ####[facility] [facility].[address] MONOS 1.9 % Low 5.0-12.0 [facility] Comment on above: Order Comment: This order is a replacement of the rejected order with accession [id number]. Performed By: #### 5 0103 ####[facility] [facility].[address] MYELOS CANCELED Normal [facility] Comment on above: Performed By: #### 5 0103 ####[place] [address] [facility].[address] NEUTROPHILS CANCELED Normal 40.0-72.0 The [facility] Comment on above: Result Comment: The released value 60.4 was canceled by KNG on 10/29/2020 22:20 Performed By: #### 5 0103 ####[facility] [facility] [place] [address], [facility] [[email or web address]] Neutrophils/100 WBC (Bld) 22.5 % Low 40.0-72.0 [facility] Comment on above: Order Comment: This order is a replacement of the rejected order with accession [id number]. Performed By: #### 5 3 ####[facility] [place] [address], [place] NRBC CANCELED Normal 0-0 The [facility] Comment on above: Result Comment: The released value 0 was canceled by KNG on 10/29/2020 22:20 Performed By: #### 3 ####[facility] [place] [address], [place] NRBC SCAN CANCELED Normal The [facility] Comment on above: Performed By: #### 3 ####[facility] [place] [address], [place] OTHER 1 CANCELED Normal The [facility] Comment on above: Performed By: #### 3 ####[facility] [place] [address], [place] OTHER 2 CANCELED Normal The [facility] Comment on above: Performed By: #### 3 ####[facility] [place] [address], [place] OTHER 3 CANCELED Normal The [facility] Comment on above: Performed By: #### 3 ####[facility] [place] [address], [place] OTHER 4 CANCELED Normal The [facility] Comment on above: Performed By: #### 3 ####[facility] [place] [address], [place] OVALOCYTES CANCELED Normal The [facility] Comment on above: Performed By: #### 5 3 ####[facility] [address], [place] PAPPENHEIMER BODIES CANCELED Normal The [facility] Comment on above: Performed By: #### 3 ####[facility] [place] [address], [facility] [[email or web address]] PARASITES CANCELED Normal The [facility] Comment on above: Performed By: #### 5 0103 ####[facility] [place] [address], [place] PLAT CNT CANCELED Normal 150-400 [facility] Comment on above: Result Comment: The released value 139 was canceled by KNG on 10/29/2020 22:20 Performed By: #### 5 0103 ####[facility] [place] [address], [place] PLAT CNT 139 10*3/uL Low 150-400 The [facility] Comment on above: Order Comment: This order is a replacement of the rejected order with accession [id number]. Performed By: #### 5 0103 ####[facility] [place] [address], [facility] [[email or web address]] PLAT ESTIMATE CANCELED Normal The [facility] Comment on above: Performed By: #### 5 0103 ####[facility] [place] [address], [facility] [[email or web address]] POIK CANCELED Normal The [facility] Comment on above: Performed By: #### 5 0103 ####[facility] [place] [address], [facility] [[email or web address]] POLY CANCELED Normal The [facility] Comment on above: Performed By: #### 5 0103 ####[facility] [place] [address], [place] PROMYELO CANCELED Normal The [facility] Comment on above: Performed By: #### 5 0103 ####[facility] [place] [address], [place] RBC CANCELED Normal 4.20-5.70 [facility] Comment on above: Result Comment: The released value 3.45 was canceled by KNG on 10/29/2020 22:20 Performed By: #### 5 0103 ####[facility] [facility] [place] [address], [facility] [[email or web address]] RBC (Bld) [#/Vol] 3.45 10*6/uL Low 4.20-5.70 The [facility] Comment on above: Order Comment: This order is a replacement of the rejected order with accession [id number]. Performed By: #### 5 0103 ####[facility] [place] [address], [facility] [[email or web address]] RDW CANCELED Normal 11.5-15.0 The [facility] Comment on above: Result Comment: The released value 15.0 was canceled by KNG on 10/29/2020 22:20 Performed By: #### 5 3 ####[facility] [facility] [place] [address], [facility] [[email or web address]] REACTIVE LYMPHS CANCELED Normal The [facility] Comment on above: Performed By: #### 5 3 ####[facility] [facility] [place] [address], [facility] [[email or web address]] ROULEAUX CANCELED Normal The [facility] Comment on above: Performed By: #### 3 ####[facility] [facility] [place] [address], [facility] [[email or web address]] SCHISTOCYTES CANCELED Normal The [facility] Comment on above: Performed By: #### 3 ####[facility] [facility] [place] [address], [facility] [[email or web address]] SEGS CANCELED Normal The [facility] Comment on above: Performed By: #### 5 3 ####[facility] [facility] [place] [address], [facility] [[email or web address]] SICKLE CELLS CANCELED Normal The [facility] Comment on above: Performed By: #### 5 3 ####[facility] [place] [address], [place] SMUDGE CELLS CANCELED Normal The [facility] Comment on above: Result Comment: The released value Many was canceled by KNG on 10/29/2020 22:20 Performed By: #### 5 3 ####[facility] [place] [address], [place] SMUDGE CELLS Many Normal The [facility] Comment on above: Order Comment: This order is a replacement of the rejected order with accession [id number]. Performed By: #### 5 3 ####[facility] [facility] [place] [address], [place] SPHEROCYTES CANCELED Normal The [facility] Comment on above: Performed By: #### 5 3 ####[facility] [facility] [place] [address], [place] STOMATOCYTES CANCELED Normal The [facility] Comment on above: Performed By: #### 5 3 ####[facility] [facility] [place] [address], [facility] [[email or web address]] TARGET CELLS CANCELED Normal The [facility] Comment on above: Performed By: #### 5 3 ####[facility] [place] [address], [place] TEAR DROP CELLS CANCELED Normal The [facility] Comment on above: Performed By: #### 5 3 ####[facility] [place] [address], [place] TOXIC GRANULATION CANCELED Normal The [facility] Comment on above: Performed By: #### 5 3 ####[facility] [place] [address], [place] VAC NEUTROPHIL CANCELED Normal The [facility] Comment on above: Performed By: #### 5 0103 ####[facility] WBC CANCELED Normal 4.00-10.60 The [facility] Comment on above: Result Comment: The released value 21.41 was canceled by KNG on 10/29/2020 22:20 Performed By: #### 5 0103 ####[facility] [facility] [place] [address], [facility] [[email or web address]] WBC (Bld) [#/Vol] 21.41 10*3/uL High 4.00-10.60 The [facility] Comment on above: Order Comment: This order is a replacement of the rejected order with accession [id number]. Performed By: #### 5 0103 ####[facility] ABS IMM GRANS 0.1 10*3/uL Normal 0.0-0.2 The [facility] Comment on above: Order Comment: No: D o not add to previous draw Performed By: #### 5 0103 ####[facility] ABS NEUTROPHILS 4.4 10*3/uL Normal 1.6-7.6 The [facility] Comment on above: Order Comment: No: D o not add to previous draw Performed By: #### 5 0103 ####[facility] [place] [address], [facility] [[email or web address]] Basophils (Bld) [#/Vol] 0.1 10*3/uL Normal 0.0-0.2 The [facility] Comment on above: Order Comment: No: D o not add to previous draw Performed By: #### 5 0103 ####[facility] [place] [address], [facility] [[email or web address]] Basophils/100 WBC (Bld) 0.3 % Normal 0.0-1.0 The [facility] Comment on above: Order Comment: No: D o not add to previous draw Performed By: #### 5 0103 ####[facility] Eosinophils (Bld) [#/Vol] 0.1 10*3/uL Normal 0.0-0.5 [facility] Comment on above: Order Comment: No: D o not add to previous draw Performed By: #### 5 0103 ####[facility] Eosinophils/100 WBC (Bld) 0.3 % Normal 0.0-6.0 The [facility] Comment on above: Order Comment: No: D o not add to previous draw Performed By: #### 5 0103 ####[facility] Erythrocyte distribution width (RBC) [Ratio] 15.4 % High 11.5-15.0 The [facility] Comment on above: Order Comment: No: D o not add to previous draw Performed By: #### 5 0103 ####[facility] Hematocrit (Bld) [Volume fraction] 33.8 % Low 39.0-50.0 The [facility] Comment on above: Order Comment: No: D o not add to previous draw Performed By: #### 5 0103 ####[facility] Hemoglobin (Bld) [Mass/Vol] 9.8 g/dL Low 13.0-17.0 The [facility] Comment on above: Order Comment: No: D o not add to previous draw Performed By: #### 5 0103 ####[facility] IMMATURE GRANS 0.3 % Normal 0.0-1.0 The [facility] Comment on above: Order Comment: No: D o not add to previous draw Performed By: #### 5 0103 ####[facility] [place] [address], [facility] [[email or web address]] Lymphocytes (Bld) [#/Vol] 14.8 10*3/uL High 1.2-4.0 The [facility] Comment on above: Order Comment: No: D o not add to previous draw Performed By: #### 5 0103 ####[facility] Lymphocytes/100 WBC (Bld) 75.4 % High 20.0-45.0 The [facility] Comment on above: Order Comment: No: D o not add to previous draw Performed By: #### 5 0103 ####[facility] MCH (RBC) [Entitic mass] 31.8 pg Normal 27.0-33.0 [facility] Comment on above: Order Comment: No: D o not add to previous draw Performed By: #### 5 0103 ####[facility] MCHC (RBC) [Mass/Vol] 29.0 g/dL Low 32.0-35.0 [facility] Comment on above: Order Comment: No: D o not add to previous draw Performed By: #### 5 0103 ####[facility] [place] [address], [facility] [[email or web address]] MCV (RBC) [Entitic vol] 109.7 fL High 82.0-98.0 [facility] Comment on above: Order Comment: No: D o not add to previous draw Performed By: #### 5 3 ####[facility] [place] [address], [facility] [[email or web address]] Monocytes (Bld) [#/Vol] 0.3 10*3/uL Normal 0.1-1.0 [facility] Comment on above: Order Comment: No: D o not add to previous draw Performed By: #### 5 0103 ####[facility] [facility] [place] [address], [facility] [[email or web address]] MONOS 1.4 % Low 5.0-12.0 The [facility] Comment on above: Order Comment: No: D o not add to previous draw Performed By: #### 5 0103 ####[facility] [place] [address], [facility] [[email or web address]] Neutrophils/100 WBC (Bld) 22.3 % Low 40.0-72.0 [facility] Comment on above: Order Comment: No: D o not add to previous draw Performed By: #### 5 0103 ####[facility] [place] [address], [facility] [[email or web address]] Nucleated RBC/100 WBC (Bld) [Ratio] 0 % Normal 0-0 [facility] Comment on above: Order Comment: No: D o not add to previous draw Performed By: #### 5 0103 ####[facility] OTHER 1 Lymphocytosis and ma ny smudge cells. Normal The [facility] Comment on above: Order Comment: No: D o not add to previous draw Result Comment: Resu lt changed by CHIKI on 10/31/2020 12:14. The previous value wasPreliminary report; verified report to follow. Performed By: #### 5 0103 ####[facility] OTHER 2 Checked by Erika Martinez M.D. Normal The [facility] Comment on above: Order Comment: No: D o not add to previous draw Result Comment: This result added by CHIKI on 10/31/2020 12:14. Performed By: #### 5 0103 ####[facility] [place] [address], [facility] [[email or web address]] PLAT CNT 125 10*3/uL Low 150-400 The [facility] Comment on above: Order Comment: No: D o not add to previous draw Performed By: #### 5 0103 ####[facility] [facility] [place] [address], [facility] [[email or web address]] RBC (Bld) [#/Vol] 3.08 10*6/uL Low 4.20-5.70 The [facility] Comment on above: Order Comment: No: D o not add to previous draw Performed By: #### 5 0103 ####[facility] [facility] [place] [address], [facility] [[email or web address]] SMUDGE CELLS MANY PRESENT Normal The [facility] Comment on above: Order Comment: No: D o not add to previous draw Performed By: #### 5 0103 ####[facility] [facility] [place] [address], [facility] [[email or web address]] WBC (Bld) [#/Vol] 19.59 10*3/uL High 4.00-10.60 [facility] Comment on above: Order Comment: No: D o not add to previous draw Performed By: #### 5 0103 ####[facility] [facility].[address] ABDOMEN AND PELVIS WO CON TRASTon 10-29-2020 CT ABDOMEN AND PELVIS WO CONTRAST Normal The [facility] Comment on above: Order Comment: Other , s/p sigmoid colectomy d/t perforated diverticulum. Severe abdominal pain. R/O further abdominal pathology. MAGNESIUM BLOODon 10-29-2020 Magnesium [Mass/Vol] 2.1 mg/dL Normal 1.9-2.7 [facility] Comment on above: Order Comment: No: D o not add to previous draw Performed By: #### 0 0071, 72017 ####[facility] [facility] [place] [address], [facility] [[email or web address]] Magnesium [Mass/Vol] 2.0 mg/dL Normal 1.9-2.7 [facility] Comment on above: Order Comment: No: D o not add to previous draw Performed By: #### 0 0071, 96533 ####[facility] [facility] [place] [address], [facility] [[email or web address]] POC GLUCOSE LABon 10-29-2020 Glucose [Mass/Vol] 172 mg/dL High 70-100 [facility] Comment on above: Performed By: #### 8 5499 ####[facility] [facility] [place] [address], [place] Glucose [Mass/Vol] 177 mg/dL High 70-100 [facility] Comment on above: Performed By: #### 8 5499 ####[facility] [facility] [place] [address], [place] Glucose [Mass/Vol] 135 mg/dL High 70-100 [facility] Comment on above: Performed By: #### 8 5499 ####[facility] [facility] [place] [address], [facility] [[email or web address]] Glucose [Mass/Vol] 131 mg/dL High 70-100 [facility] Comment on above: Performed By: #### 8 5499 ####[facility] [facility] [place] [address], [facility] [[email or web address]] BASIC METABOLIC PANELon 10-04 Calcium [Mass/Vol] 7.5 mg/dL Low 8.6-10.3 [facility] Comment on above: Order Comment: No: D o not add to previous draw Performed By: #### 0 0071, 91666 ####[facility] [facility] [place] [address], [place] Chloride [Moles/Vol] 105 mmol/L Normal 98-107 [facility] Comment on above: Order Comment: No: D o not add to previous draw Performed By: #### 0 0071, [id number] ####[facility] [facility] [place] [address], [facility] [[email or web address]] CO2 [Moles/Vol] 24 mmol/L Normal 21-31 [facility] Comment on above: Order Comment: No: D o not add to previous draw Performed By: #### 0 0071, 79274 ####[facility] [facility] [place] [address], [facility] [[email or web address]] Creatinine [Mass/Vol] 0.97 mg/dL Normal 0.70-1.30 [facility] Comment on above: Order Comment: No: D o not add to previous draw Performed By: #### 0 0071, 95817 ####[facility] [facility] [place] [address], [facility] [[email or web address]] GFR/1.73 sq M.predicted among blacks MDRD (S/P/Bld) [Vol rate/Area] mL/min/{1.73_m2} Normal >60 [facility] Comment on above: Order Comment: No: D o not add to previous draw Result Comment: Calc ulation may not be valid for patients over 70 years Performed By: #### 0 0071, 15081 ####[facility] [facility] [place] [address], [facility] [[email or web address]] GFR/1.73 sq M.predicted among non-blacks MDRD (S/P/Bld) [Vol rate/Area] mL/min/{1.73_m2} Normal >60 [facility] Comment on above: Order Comment: No: D o not add to previous draw Result Comment: Calc ulation may not be valid for patients over 70 years Performed By: #### 0 0071, 84453 ####[facility] [facility] [place] [address], [place] Glucose [Mass/Vol] 206 mg/dL High 70-100 [facility] Comment on above: Order Comment: No: D o not add to previous draw Performed By: #### 0 0071, 60000 ####[facility] [place] [address], [facility] [[email or web address]] Potassium [Moles/Vol] 3.4 mmol/L Low 3.5-5.1 [facility] Comment on above: Order Comment: No: D o not add to previous draw Performed By: #### 0 0071, 16169 ####[facility] [place] [address], [facility] [[email or web address]] Sodium [Moles/Vol] 136 mmol/L Normal 136-145 [facility] Comment on above: Order Comment: No: D o not add to previous draw Performed By: #### 0 0071, 96638 ####[facility] [place] [address], [facility] [[email or web address]] Urea nitrogen [Mass/Vol] 17 mg/dL Normal 7-25 [facility] Comment on above: Order Comment: No: D o not add to previous draw Performed By: #### 0 0071, 14886 ####[facility] [facility].[address] CBC COMPLETE BLOOD COUNTon 0 10-28-2020 Erythrocyte distribution width (RBC) [Ratio] 15.1 % High 11.5-15.0 [facility] Comment on above: Order Comment: No: D o not add to previous draw Performed By: #### 5 0608 ####[facility] [place] [address], [facility] [[email or web address]] Hematocrit (Bld) [Volume fraction] 36.2 % Low 39.0-50.0 [facility] Comment on above: Order Comment: No: D o not add to previous draw Performed By: #### 5 0608 ####[facility] [place] [address], [facility] [[email or web address]] Hemoglobin (Bld) [Mass/Vol] 11.6 g/dL Low 13.0-17.0 [facility] Comment on above: Order Comment: No: D o not add to previous draw Performed By: #### 5 0608 ####[facility] [facility].[address] MCH (RBC) [Entitic mass] 31.8 pg Normal 27.0-33.0 [facility] Comment on above: Order Comment: No: D o not add to previous draw Performed By: #### 5 0608 ####[facility] MCHC (RBC) [Mass/Vol] 32.0 g/dL Normal 32.0-35.0 [facility] Comment on above: Order Comment: No: D o not add to previous draw Performed By: #### 5 0608 ####[facility] MCV (RBC) [Entitic vol] 99.2 fL High 82.0-98.0 [facility] Comment on above: Order Comment: No: D o not add to previous draw Performed By: #### 5 0608 ####[place] [id number] [facility].[address] Nucleated RBC/100 WBC (Bld) [Ratio] 0 % Normal 0-0 [facility] Comment on above: Order Comment: No: D o not add to previous draw Performed By: #### 5 0608 ####[facility] PLAT CNT 133 10*3/uL Low 150-400 [facility] Comment on above: Order Comment: No: D o not add to previous draw Performed By: #### 5 0608 ####[facility] [place] [address], [facility] [[email or web address]] RBC (Bld) [#/Vol] 3.65 10*6/uL Low 4.20-5.70 [facility] Comment on above: Order Comment: No: D o not add to previous draw Performed By: #### 5 0608 ####[facility] [facility] [place] [address], [facility] [[email or web address]] WBC (Bld) [#/Vol] 27.62 10*3/uL High 4.00-10.60 [facility] Comment on above: Order Comment: No: D o not add to previous draw Performed By: #### 5 0608 ####[facility] [facility] [place] [address], [facility] [[email or web address]] MAGNESIUM BLOODon 10-28-2020 Magnesium [Mass/Vol] 2.0 mg/dL Normal 1.9-2.7 [facility] Comment on above: Order Comment: No: D o not add to previous draw Performed By: #### 0 0071, 18832 ####[facility] [facility] [place] [address], [facility] [[email or web address]] Operative Reporton Operative Report Normal [facility] POC GLUCOSE LABon 10-28-2020 Glucose [Mass/Vol] 141 mg/dL High 70-100 [facility] Comment on above: Performed By: #### 8 5499 ####[facility] [facility] [place] [address], [place] Glucose [Mass/Vol] 128 mg/dL High 70-100 [facility] Comment on above: Performed By: #### 8 5499 ####[facility] [facility] [place] [address], [place] Glucose [Mass/Vol] 166 mg/dL High 70-100 [facility] Comment on above: Performed By: #### 8 5499 ####[facility] [facility] [place] [address], [place] Glucose [Mass/Vol] 182 mg/dL High 70-100 [facility] Comment on above: Performed By: #### 8 5499 ####[place] [address] [facility] [place] [address], [facility] [[email or web address]] Glucose [Mass/Vol] 222 mg/dL High 70-100 [facility] Comment on above: Performed By: #### 8 5499 ####[place] [address] [facility].[address] APTTon 10-27-2020 aPTT Coag (Bld) [Time] 33.4 s Normal 25.0-35.0 [facility] Comment on above: Order Comment: No: D [...] THIS PURPOSE. Performed By: #### 5 7307, 32646 ####[place] [address] [facility].[address] ARTERIAL BLOOD GAS W/COOXon 10-27-2020 BASE EXCESS -2 mmol/L Normal -2-3 [facility] Comment on above: Performed By: #### 7 0067, 54327, 67470, 50604 ####[place] [address] [facility].[address] COHB 1.3 % Normal 0.0-1.5 [facility] Comment on above: Performed By: #### 7 0067, 16997, 08094, 04395 ####[place] [address] [facility] [place] [address], [facility] [[email or web address]] HCO3 (Bld) [Moles/Vol] 22 mmol/L Normal 21-28 [facility] Comment on above: Performed By: #### 7 0067, 15458, 39033, 13380 ####[place] [address] [facility] [place] [address], [facility] [[email or web address]] METHB 0.6 % Normal 0.0-1.5 [facility] Comment on above: Performed By: #### 7 66, , 45383, 54174 ####[facility] [facility] [place] [address], [facility] [[email or web address]] MODALITY OR Normal [facility] Comment on above: Performed By: #### 7 66, , 37759, 57967 ####[facility] [facility] [place] [address], [facility] [[email or web address]] Oxygen (Bld) [Partial pressure] 172 mm[Hg] Critically high 83-108 The [facility] Comment on above: Performed By: #### 7 66, , 88035, 58596 ####[place] [address] [facility].[address] Oxygen saturation in Blood 96.9 % Normal 94.0-97.0 [facility] Comment on above: Performed By: #### 7 66, , 72773, 69114 ####[place] [address] [facility].[address] PCO2 33 mmHg Low 35-45 [facility] Comment on above: Performed By: #### 7 66, , 42761, 23115 ####[place] [address] [facility] [place] [address], [facility] [[email or web address]] pH (Bld) 7.43 [pH] Normal 7.35-7.45 [facility] Comment on above: Performed By: #### 7 66, , 71066, 64355 ####[place] [address] [facility] [place] [address], [facility] [[email or web address]] THB 11.3 g/dL Low 12.0-16.3 [facility] Comment on above: Performed By: #### 7 66, , 72841, 90490 ####[facility] [place] [address], [facility] [[email or web address]] BASIC METABOLIC PANELon 02-2 Calcium [Mass/Vol] 8.4 mg/dL Low 8.6-10.3 [facility] Comment on above: Order Comment: No: D o not add to previous draw Performed By: #### 1 69, 33031 ####[facility] [place] [address], [place] Chloride [Moles/Vol] 104 mmol/L Normal 98-107 [facility] Comment on above: Order Comment: No: D o not add to previous draw Performed By: #### 1 69, 43581 ####[facility] [place] [address], [place] CO2 [Moles/Vol] 24 mmol/L Normal 21-31 [facility] Comment on above: Order Comment: No: D o not add to previous draw Performed By: #### 1 69, 25884 ####[facility] [place] [address], [place] Creatinine [Mass/Vol] 1.03 mg/dL Normal 0.70-1.30 [facility] Comment on above: Order Comment: No: D o not add to previous draw Performed By: #### 1 69, 37463 ####[facility] [place] [address], [place] GFR/1.73 sq M.predicted among blacks MDRD (S/P/Bld) [Vol rate/Area] mL/min/{1.73_m2} Normal >60 [facility] Comment on above: Order Comment: No: D o not add to previous draw Result Comment: Calc ulation may not be valid for patients over 70 years Performed By: #### 1 69, 70185 ####[facility] [place] [address], [place] GFR/1.73 sq M.predicted among non-blacks MDRD (S/P/Bld) [Vol rate/Area] mL/min/{1.73_m2} Normal >60 [facility] Comment on above: Order Comment: No: D o not add to previous draw Result Comment: Calc ulation may not be valid for patients over 70 years Performed By: #### 1 69, 98964 ####[facility] [facility] [place] [address], [facility] [[email or web address]] Glucose [Mass/Vol] 176 mg/dL High 70-100 [facility] Comment on above: Order Comment: No: D o not add to previous draw Performed By: #### 1 69, 93374 ####[facility] [facility] [place] [address], [facility] [[email or web address]] Potassium [Moles/Vol] 3.8 mmol/L Normal 3.5-5.1 [facility] Comment on above: Order Comment: No: D o not add to previous draw Performed By: #### 1 69, 24853 ####[facility] [facility] [place] [address], [facility] [[email or web address]] Sodium [Moles/Vol] 134 mmol/L Low 136-145 [facility] Comment on above: Order Comment: No: D o not add to previous draw Performed By: #### 1 69, 99576 ####[facility] [facility] [place] [address], [facility] [[email or web address]] Urea nitrogen [Mass/Vol] 21 mg/dL Normal 7-25 [facility] Comment on above: Order Comment: No: D o not add to previous draw Performed By: #### 1 69, 72970 ####[place] [address] [facility] [place] [address], [facility] [[email or web address]] CALCIUM IONIZED CBGLon 10-27 IONIZED CALCIUM 1.07 mmol/L Low 1.13-1.32 [facility] Comment on above: Performed By: #### 7 1930, 39586, 93104, 78416 ####[facility] CBC COMPLETE BLOOD COUNTon 10-27-2020 Erythrocyte distribution width (RBC) [Ratio] 15.0 % Normal 11.5-15.0 [facility] Comment on above: Order Comment: No: D o not add to previous draw Performed By: #### 5 0608 ####[facility] Hematocrit (Bld) [Volume fraction] 38.8 % Low 39.0-50.0 [facility] Comment on above: Order Comment: No: D o not add to previous draw Performed By: #### 5 0608 ####[facility] Hemoglobin (Bld) [Mass/Vol] 12.5 g/dL Low 13.0-17.0 [facility] Comment on above: Order Comment: No: D o not add to previous draw Performed By: #### 5 0608 ####[address] MCH (RBC) [Entitic mass] 31.9 pg Normal 27.0-33.0 [facility] Comment on above: Order Comment: No: D o not add to previous draw Performed By: #### 5 0608 ####[facility] MCHC (RBC) [Mass/Vol] 32.2 g/dL Normal 32.0-35.0 [facility] Comment on above: Order Comment: No: D o not add to previous draw Performed By: #### 5 0608 ####[facility] [place] [address] MCV (RBC) [Entitic vol] 99.0 fL High 82.0-98.0 [facility] Comment on above: Order Comment: No: D o not add to previous draw Performed By: #### 5 0608 ####[facility] [facility].[address] Nucleated RBC/100 WBC (Bld) [Ratio] 0 % Normal 0-0 [facility] Comment on above: Order Comment: No: D o not add to previous draw Performed By: #### 5 0608 ####[facility] [facility] [place] [address], [facility] [[email or web address]] PLAT CNT 140 10*3/uL Low 150-400 The [facility] Comment on above: Order Comment: No: D o not add to previous draw Performed By: #### 5 0608 ####[facility] [facility] [place] [address], [facility] [[email or web address]] RBC (Bld) [#/Vol] 3.92 10*6/uL Low 4.20-5.70 The [facility] Comment on above: Order Comment: No: D o not add to previous draw Performed By: #### 5 0608 ####[place] [address] [facility] [place] [address], [facility] [[email or web address]] WBC (Bld) [#/Vol] 27.81 10*3/uL High 4.00-10.60 [facility] Comment on above: Order Comment: No: D o not add to previous draw Performed By: #### 5 0608 ####[facility] [facility].[address] LACTATE BLOODon 10-27-2020 Lactate [Moles/Vol] 0.8 mmol/L Normal 0.5-2.2 The [facility] Comment on above: Order Comment: No: D o not add to previous draw Performed By: #### 1 0054 ####[facility] [facility] [place] [address], [facility] [[email or web address]] LIPASE BLOODon 10-27-2020 LIPASE 7 Units/L Low 11-82 [facility] Comment on above: Order Comment: No: D o not add to previous draw Performed By: #### 3 6901, 73227, 08748 ####[facility] [id number], [facility] [[email or web address]] LIVER BATTERYon 10-27-2020 Albumin [Mass/Vol] 3.6 g/dL Normal 3.5-5.7 [facility] Comment on above: Order Comment: No: D o not add to previous draw Performed By: #### 3 6901, 20422, 58866 ####[facility] [place] [address], [facility] [[email or web address]] ALKALINE PHOSPH 54 IU/L Normal 34-104 The [facility] Comment on above: Order Comment: No: D o not add to previous draw Performed By: #### 3 6901, 81420, 34631 ####[facility] [place] [address], [facility] [[email or web address]] ALT [Catalytic activity/Vol] 38 U/L Normal 7-52 [facility] Comment on above: Order Comment: No: D o not add to previous draw Performed By: #### 3 6901, 14277, 21154 ####[facility] [place] [address], [place] AST [Catalytic activity/Vol] 28 U/L Normal 13-39 [facility] Comment on above: Order Comment: No: D o not add to previous draw Performed By: #### 3 6901, 07356, 45202 ####[facility] [place] [address], [place] Bilirubin [Mass/Vol] 1.3 mg/dL High 0.3-1.0 [facility] Comment on above: Order Comment: No: D o not add to previous draw Performed By: #### 3 6901, 50589, 34922 ####[facility] [place] [address], [place] Bilirubin.direct [Mass/Vol] 0.4 mg/dL High 0.0-0.2 [facility] Comment on above: Order Comment: No: D o not add to previous draw Performed By: #### 3 6901, 66875, 18973 ####[facility] [place] [address], [place] Protein [Mass/Vol] 5.5 g/dL Low 6.0-8.3 [facility] Comment on above: Order Comment: No: D o not add to previous draw Performed By: #### 3 6901, 51253, 17595 ####[facility] [place] [address], [place] MAGNESIUM BLOODon 10-27-2020 Magnesium [Mass/Vol] 1.7 mg/dL Low 1.9-2.7 [facility] Comment on above: Order Comment: No: D o not add to previous draw Performed By: #### 1 0070, 89016 ####[facility] [place] [address], [place] POC GLUCOSE LABon 10-27-2020 Glucose [Mass/Vol] 193 mg/dL High 70-100 [facility] Comment on above: Performed By: #### 8 5499 ####[facility] [place] [address], [place] Glucose [Mass/Vol] 173 mg/dL High 70-100 [facility] Comment on above: Performed By: #### 8 5499 ####[facility] [place] [address], [place] Glucose [Mass/Vol] 153 mg/dL High 70-100 [facility] Comment on above: Performed By: #### 8 6089 ####[facility] [place] [address], [place] Glucose [Mass/Vol] 186 mg/dL High 70-100 [facility] Comment on above: Performed By: #### 8 5499 ####[facility] Glucose [Mass/Vol] 183 mg/dL High 70-100 [facility] Comment on above: Performed By: #### 8 5499 ####[facility] PORTABLE CHEST 1 VIEWon 10-04 PORTABLE CHEST 1 VIEW Normal The [facility] Comment on above: Order Comment: Check NG Tube Position POTASSIUM WHOLE BLOOD CBGLon 10-27-2020 Potassium [Moles/Vol] 3.2 mmol/L Low 3.4-5.2 [facility] Comment on above: Performed By: #### 7 0067, 84538, 58498, 37894 ####[facility] PROTHROMBIN TIMEon INR Coag (PPP) [Relative time] 1.09 {INR} Normal 0.91-1.16 [facility] Comment on [...] OF ACTION, CLINICALEFFECTIVENESS, AND OPTIMAL THERAPEUTIC RANGE. [id number]. Performed By: #### 5 7307, 33335 ####[facility] [place] [address], [facility] [[email or web address]] PT Coag (PPP) [Time] 14.2 s Normal 12.3-14.8 [facility] Comment on above: Order Comment: No: D o not add to previous draw Result Comment: ALL RESULTS MUST BE INTERPRETED WITH RESPECT TO BLOOD DRAWING ARTIFACTOR DILUTION ERROR OF ANTICOAGULANT AT THE TIME OF SAMPLING. Performed By: #### 5 7307, 44856 ####[facility] [place] [address], [facility] [[email or web address]] SODIUM WHOLE BLOOD CBGLon Sodium [Moles/Vol] 133.0 mmol/L Low 136.0-146.0 [facility] Comment on above: Performed By: #### 7 0067, 85189, 90740, 03642 ####[facility] [facility].[address] TROPONIN-Ion 10-27-2020 Troponin I.cardiac [Mass/Vol] 0.01 ng/mL Normal 0.00-0.04 [facility] Comment on above: Order Comment: No: D o not add to previous draw Result Comment: REFE RENCE RANGES: 0.00 - 0.04 ng/ml NORMAL 0.05 - 0.50 ng/ml INDETERMINATE > 0.50 ng/ml CONSISTENT WITH AN M.I. Performed By: #### 3 8581, 79005, 44735 ####[facility] [facility] [place] [address], [facility] [[email or web address]] TYPE AND SCREENon 10-27-2020 ABO INTERPRETATION O Normal [facility] Comment on above: Performed By: #### 6 2586 ####[facility] [place] [address], [facility] [[email or web address]] RH INTERPRETATION Positive Normal The [facility] Comment on above: Performed By: #### 6 2586 ####[facility] [place] [address], [facility] [[email or web address]] Vital Signs Date Time Vital Sign Value Performing Clinician Facility 03-31-2025 13:55-0400 Body mass index (BMI) [Ratio] 27.5 kg/m2 Mireya Rojas [employer] Work Phone: [facility] 03-31-2025 13:55-0400 Body temperature 98.49 [degF] Mireya Crystal [employer] Work Phone: [facility] 03-31-2025 13:55-0400 Body weight 72.67 kg Mireya Crystal [employer] Work Phone: [facility] 03-31-2025 13:55-0400 Diastolic blood pressure 66 mm[Hg] Mireyadionne Rojas [employer]INE [employer]SEMBLER Work Phone: [facility] 03-31-2025 13:55-0400 Heart rate 73 /min Mireya Crystal [employer] Work Phone: [facility] 03-31-2025 13:55-0400 Respiratory rate 20 /min Mireya Crystal [employer]INE [employer]SEM[employer]ER Work Phone: [facility] 03-31-2025 13:55-0400 SaO2% (BldA) [Mass fraction] 96 % Mireya Rojas [employer]INE [employer]SEMBLER Work Phone: [facility] 03-31-2025 13:55-0400 Systolic blood pressure 120 mm[Hg] Mireya Rojas [employer]INE [employer]SEMBLER Work Phone: [facility] 02-10-2025 13:17-0400 Body height 162.6 cm Todd Vallecillo MD Work Phone: [facility] 02-10-2025 13:17-0400 Body mass index (BMI) [Ratio] 27.22 kg/m2 Todd Vallecillo MD Work Phone: [facility] 02-10-2025 13:17-0400 Body weight 71.94 kg Todd Vallecillo MD Work Phone: [facility] 02-10-2025 13:17-0400 Diastolic blood pressure 52 mm[Hg] Todd Vallecillo MD Work Phone: [facility] 02-10-2025 13:17-0400 Heart rate 72 /min Todd Vallecillo MD Work Phone: [facility] 02-10-2025 13:17-0400 Systolic blood pressure 112 mm[Hg] Todd Vallecillo MD Work Phone: [facility] 12-30-2024 14:44-0400 Body mass index (BMI) [Ratio] 27.26 kg/m2 Mireyadionne Rojas [employer]INE [employer]SEMBLER Work Phone: [facility] 12-30-2024 14:44-0400 Body temperature 98.49 [degF] Mireya Crystal [employer]INE [employer]ER Work Phone: [facility] 12-30-2024 14:44-0400 Body weight 72.03 kg Mireya Maheshhsenthilz [employer]INE [employer]SEMBLER Work Phone: [facility] 12-30-2024 14:44-0400 Diastolic blood pressure 68 mm[Hg] Mireya Maheshhsenthilz [employer]INE [employer]SEMBLER Work Phone: [facility] 12-30-2024 14:44-0400 Heart rate 59 /min Mireya Maheshhsenthilz [employer]INE [employer]SEMBLER Work Phone: [facility] 12-30-2024 14:44-0400 Respiratory rate 18 /min Mireya Aichholz [employer]INE [employer]SEM[employer]ER Work Phone: [facility] 12-30-2024 14:44-0400 SaO2% (BldA) [Mass fraction] 99 % Mireya Maheshhsenthilz [employer]INE [employer]SEMBLER Work Phone: [facility] 12-30-2024 14:44-0400 Systolic blood pressure 108 mm[Hg] Mireya Crystal [employer]INE ASSEMBLER Work Phone: [facility] 12-28-2024 09:34-0400 Diastolic blood pressure 56 mm[Hg] Todd Vallecillo MD Work Phone: [facility] 12-28-2024 09:34-0400 Systolic blood pressure 104 mm[Hg] Todd Vallecillo MD Work Phone: [facility] 12-28-2024 09:26-0400 Body height 162.6 cm Todd Vallecillo MD Work Phone: [facility] 12-28-2024 09:26-0400 Body mass index (BMI) [Ratio] 27.46 kg/m2 Todd Vallecillo MD Work Phone: [facility] 12-28-2024 09:26-0400 Body weight 72.58 kg Todd Vallecillo MD Work Phone: [facility] 12-28-2024 09:26-0400 Heart rate 66 /min Todd Vallecillo MD Work Phone: [facility] 11-26-2024 14:21-0400 Body mass index (BMI) [Ratio] 27.43 kg/m2 Mireya Rojas [employer]INE [employer]ER Work Phone: [facility] 11-26-2024 14:21-0400 Body temperature 98.49 [degF] Mireya Crystal [employer]INE [employer]SEMBLER Work Phone: [facility] 11-26-2024 14:21-0400 Body weight 72.48 kg Mireya Crystal [employer] ENGINE ASSEMBLER Work Phone: [facility] 11-26-2024 14:21-0400 Diastolic blood pressure 60 mm[Hg] Mireya Crystal [employer]INE [employer]SEMBLER Work Phone: [facility] 11-26-2024 14:21-0400 Heart rate 65 /min Mireya Crystal [employer]INE [employer]SEMBLER Work Phone: [facility] 11-26-2024 14:21-0400 Respiratory rate 18 /min Mireya Rojas [employer]AR[employer] ENGINE ASSEMBLER Work Phone: [facility] 11-26-2024 14:21-0400 Systolic blood pressure 110 mm[Hg] Mireya Rojas [employer]INE [employer]SEMBLER Work Phone: [facility] 08-18-2024 13:31-0500 Body height 162.6 cm Leander Chanel [employer]AR[employer] ENGINE ASSEMBLER Work Phone: [facility] 08-18-2024 13:31-0500 Body mass index (BMI) [Ratio] 29.25 kg/m2 Leander Hcanel [employer]INE [employer]SEMBLER Work Phone: [facility] 08-18-2024 13:31-0500 Body temperature 96.6 [degF] Leander Chanel [employer]INE [employer]SEMBLER Work Phone: [facility] 08-18-2024 13:31-0500 Body weight 77.29 kg Leander Chanel [employer]INE [employer]SEMBLER Work Phone: [facility] 08-18-2024 13:31-0500 Diastolic blood pressure 72 mm[Hg] Leander Chanel [employer]INE [employer]SEMBLER Work Phone: [facility] 08-18-2024 13:31-0500 Heart rate 79 /min Leander Chanel [employer]INE [employer]SEMBLER Work Phone: [facility] 08-18-2024 13:31-0500 Respiratory rate 16 /min Leander Chanel [employer]AR[employer] ENGINE [employer]SEMBLER Work Phone: [facility] 08-18-2024 13:31-0500 SaO2% (BldA) [Mass fraction] 97 % Leander Chanel [employer]AR[employer] ENGINE ASSEMBLER Work Phone: [facility] 08-18-2024 13:31-0500 Systolic blood pressure 130 mm[Hg] Leander Chanel [employer]ARGE ENGINE ASSEMBLER Work Phone: [facility] 08-06-2024 14:030500 Body height 163.8 cm Frederick Abhyankar MD Work Phone: [facility] 08-06-2024 14:03-0500 Body mass index (BMI) [Ratio] 28.74 kg/m2 Frederick Zapata MD Work Phone: [facility] 08-06-2024 14:03-0500 Body temperature 97.11 [degF] Frederick Zapata MD Work Phone: [facility] 08-06-2024 14:03-0500 Body weight 77.1 kg Frederick Zapata MD Work Phone: [facility] 08-06-2024 14:03-0500 Diastolic blood pressure 68 mm[Hg] Frederick Zapata MD Work Phone: [facility] 08-06-2024 14:03-0500 Heart rate 79 /min Frederick Zapata MD Work Phone: [facility] 08-06-2024 14:03-0500 Respiratory rate 16 /min Frederick Zapata MD Work Phone: [facility] 08-06-2024 14:03-0500 SaO2% (BldA) [Mass fraction] 97 % Frederick Zapata MD Work Phone: [facility] 08-06-2024 14:03-0500 Systolic blood pressure 135 mm[Hg] Frederick Zapaat MD Work Phone: [facility] 07-01-2024 14:18-0400 Body height 162.6 cm Leander Chanel [employer]AR[employer] ENGINE ASSEMBLER Work Phone: [facility] 07-01-2024 14:18-0400 Body mass index (BMI) [Ratio] 27.81 kg/m2 Leander Gomezpatrick [employer]INE [employer]SEMBLER Work Phone: [facility] 07-01-2024 14:18-0400 Body temperature 97.5 [degF] Leander Meehank [employer]AR[employer] ENGINE ASSEMBLER Work Phone: [facility] 07-01-2024 14:18-0400 Body weight 73.48 kg Leander Chanel [employer]AR[employer] ENGINE ASSEMBLER Work Phone: [facility] 07-01-2024 14:18-0400 Diastolic blood pressure 68 mm[Hg] Leander Chanel [employer]AR[employer] ENGINE ASSEMBLER Work Phone: [facility] 07-01-2024 14:18-0400 Heart rate 83 /min Leander Chanel [employer]AR[employer] ENGINE ASSEMBLER Work Phone: [facility] 07-01-2024 14:18-0400 Respiratory rate 16 /min Leander Chanel [employer]AR[employer] ENGINE ASSEMBLER Work Phone: [facility] 07-01-2024 14:18-0400 SaO2% (BldA) [Mass fraction] 96 % Leander Chanel [employer]AR[employer]INE ASSEMBLER Work Phone: [facility] 07-01-2024 14:18-0400 Systolic blood pressure 122 mm[Hg] Leander Chanel LARGE ENGINE ASSEMBLER Work Phone: [facility] 08-08-2023 14:46-0500 Body temperature 97.59 [degF] Frederick Zapata MD Work Phone: [facility] 08-08-2023 14:46-0500 Body weight 76.3 kg Frederick Zapata MD Work Phone: [facility] 08-08-2023 14:46-0500 Diastolic blood pressure 57 mm[Hg] Frederick Zapata MD Work Phone: [facility] 08-08-2023 14:46-0500 Heart rate 77 /min Frederick Zapata MD Work Phone: [facility] 08-08-2023 14:46-0500 Respiratory rate 18 /min Frederick Zapata MD Work Phone: [facility] 08-08-2023 14:46-0500 SaO2% (BldA) [Mass fraction] 97 % Frederick Zapata MD Work Phone: [facility] 08-08-2023 14:46-0500 Systolic blood pressure 127 mm[Hg] Frederick Zapata MD Work Phone: [facility] 06-14-2023 17:35-0400 Body height 162.56 cm Annmarie Maemond Other [employer] Other 06-14-2023 17:35-0400 Body mass index (BMI) [Ratio] 29.61 kg/m2 Annmarie Arely Other [employer] Other 06-14-2023 17:35-0400 Body temperature 98.2 [degF] Annmarie Maemond Other [employer] Other 06-14-2023 17:35-0400 Body weight 78.25 kg Annmarie Maemond Other [employer] Other 06-14-2023 17:35-0400 Diastolic blood pressure 54 mm[Hg] Annmarie Raely Other [employer] Other 06-14-2023 17:35-0400 Respiratory rate 18 /min Annmarie Arely Other [employer] Other 06-14-2023 17:35-0400 SaO2% (BldA) [Mass fraction] 96 % Annmarie Arely Other [employer] Other 06-14-2023 17:35-0400 Systolic blood pressure 111 mm[Hg] Annmarie Arely Other [employer] Other 09-17-2022 14:35-0500 Body height 162.56 cm Annmarie Arely Other [employer] Other 09-17-2022 14:35-0500 Body mass index (BMI) [Ratio] 29.18 kg/m2 Annmarie Mcgee Other [employer] Other 09-17-2022 14:35-0500 Body temperature 98.1 [degF] Annmarie Mcgee Other [employer] Other 09-17-2022 14:35-0500 Body weight 77.11 kg Annmarie Mcgee Other [employer] Other 09-17-2022 14:35-0500 Respiratory rate 18 /min Annmarie Mcgee Other [employer] Other 09-17-2022 14:35-0500 SaO2% (BldA) [Mass fraction] 98 % Annmarie Mcgee Other [employer] Other 01-01-2022 13:47-0400 Body height 163.8 cm Frederick Zapata MD Work Phone: [facility] 01-01-2022 13:47-0400 Body temperature 97.9 [degF] Frederick Zapata MD Work Phone: [facility] 01-01-2022 13:47-0400 Body weight 73.39 kg Frederick Zapata MD Work Phone: [facility] 01-01-2022 13:47-0400 Diastolic blood pressure 59 mm[Hg] Frederick Zapata MD Work Phone: [facility] 01-01-2022 13:47-0400 Heart rate 66 /min Frederick Zapata MD Work Phone: [facility] 01-01-2022 13:47-0400 Respiratory rate 16 /min Frederick Zapata MD Work Phone: [facility] 01-01-2022 13:47-0400 SaO2% (BldA) [Mass fraction] 97 % Frederick Zapata MD Work Phone: [facility] 01-01-2022 [id number] Systolic blood pressure 120 mm[Hg] Frederick Zapata MD Work Phone: [facility] Encounters Encounter Date Encounter Type Care Provider Facility Start: 04-07-2025 End: 04-16-2025 External Result Encounter Mireya Crystal LARGE ENGINE ASSEMBLER Work Phone: [facility] External Department Unsolicited Start: 04-07-2025 End: 04-16-2025 External Result Encounter Mireya Cartwrightadan LARGE ENGINE ASSEMBLER Work Phone: [facility] External Department Unsolicited Start: 03-31-2025 End: 03-31-2025 Bamboo flowsheet Mireya Marianaz LARGE ENGINE ASSEMBLER Work Phone: [facility] Start: 03-31-2025 End: 03-31-2025 Bamboo flowsheet Mireya Marianaz LARGE ENGINE ASSEMBLER Work Phone: [facility] Start: 03-31-2025 End: 03-31-2025 Office outpatient visit 25 minutes Mireya Crystal LARGE ENGINE ASSEMBLER Work Phone: [facility] Comment on above: Type 2 diabetes talha itus without complication, without long- term current use of insulin (HCC) (Primary Dx); Type 2 diabetes mellitus with diabetic polyneuropathy, without long-term current use of insulin (HCC); Essential hypertension; 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); MVP (mitral valve prolapse); Dizziness and giddiness; Generalized abdominal pain Start: 03-31-2025 End: 03-31-2025 ambulatory MIREYA AICHHOLZ Not Available Start: 03-11-2025 End: 03-11-2025 ambulatory SUNNY ALT Not Available Start: 03-11-2025 End: 03-11-2025 Bamboo flowsheet Sunny Alt RN [facility] Start: 03-11-2025 End: 03-11-2025 Bamboo flowsheet Sunny Chery RN [facility] Start: 03-04-2025 End: 03-04-2025 ambulatory Rosa Nguyen MA Work Phone: [facility] Start: 02-10-2025 End: 02-10-2025 ambulatory [facility] Ambulatory Start: 02-10-2025 End: 02-10-2025 Office outpatient visit 15 minutes Todd Vallecillo MD Work Phone: [facility] Comment on above: Shortness of breath (Primary Dx); Mitral valve prolapse; Dizziness; Orthostatic hypotension; Nonrheumatic mitral valve regurgitation; Diabetes mellitus type II, non insulin dependent (Multi); BMI 27.0-27.9,adult; Former smoker Start: 02-01-2025 End: 02-01-2025 Refill Mireya Rojas NP Work Phone: [facility] Comment on above: 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 (CMS/HCC); Type 2 diabetes mellitus without complication, without long-term current use of insulin; Hypercholesterolemia (CMS/HCC); Type 2 diabetes mellitus with diabetic polyneuropathy, 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) Start: 01-21-2025 End: 01-21-2025 ambulatory [facility] Start: 12-31-2024 End: 12-31-2024 ambulatory SUNNY CHERY Not Available Start: 12-31-2024 End: 12-31-2024 Bamboo flowsheet Sunny Chery RN [facility] Start: 12-31-2024 End: 12-31-2024 Bamboo flowsheet Sunny Chery RN [facility] Start: 12-30-2024 End: 12-30-2024 Office outpatient visit 15 minutes Mireya Rojas NP Work Phone: [facility] Comment on above: Type 2 diabetes talha itus without complication, without long- term current use of insulin (Primary Dx); Dizziness and giddiness; Type 2 diabetes mellitus with diabetic polyneuropathy, without long-term current use of insulin ([facility]); Nonrheumatic mitral valve regurgitation Start: 12-30-2024 End: 12-30-2024 ambulatory MIREYA ROJAS Not Available Start: 12-30-2024 End: 12-30-2024 Bamboo flowsheet Mireya Rojas LARGE ENGINE ASSEMBLER Work Phone: [facility] Start: 12-30-2024 End: 12-30-2024 Bamboo flowsheet Mireya Rojas LARGE ENGINE ASSEMBLER Work Phone: [facility] Start: 12-28-2024 End: 12-28-2024 ambulatory [facility] Ambulatory Start: 12-28-2024 End: 12-28-2024 Office consultation new/estab patient 60 min Todd Vallecillo MD Work Phone: [facility] Comment on above: Orthostatic hypotens ion (Primary Dx); Mitral valve prolapse; Shortness of breath; Dizziness; BMI 27.0-27.9,adult; Former smoker; Nonrheumatic mitral valve regurgitation; Diabetes mellitus type II, non insulin dependent (Multi) Start: 12-16-2024 End: 12-16-2024 Orders Only Mireya Rojas LARGE ENGINE ASSEMBLER Work Phone: [facility] Comment on above: MVP (mitral valve pr olapse) (Primary Dx); Dizziness and giddiness Start: 12-12-2024 End: 12-12-2024 Clinisync Result Encounter Mireya Rojas LARGE ENGINE ASSEMBLER Work Phone: [facility] External Department Unsolicited Start: 12-12-2024 End: 12-12-2024 Clinisync Result Encounter Mireya Rojas LARGE ENGINE ASSEMBLER Work Phone: [facility] External Department Unsolicited Start: 11-26-2024 End: 11-26-2024 Bamboo flowsheet Mireya Rojas LARGE ENGINE ASSEMBLER Work Phone: [facility] Start: 11-26-2024 End: 11-26-2024 Bamboo flowsheet Mireya Rojas LARGE ENGINE ASSEMBLER Work Phone: [facility] Start: 11-26-2024 End: 11-26-2024 Office outpatient visit 25 minutes Mireya Rojas LARGE ENGINE ASSEMBLER Work Phone: [facility] Comment on above: Type 2 diabetes talha itus without complication, without long- term current use of insulin (CMS/HCC) (Primary Dx); Type 2 diabetes mellitus with diabetic polyneuropathy, 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); Benign essential hypertension (CMS/HCC); Essential hypertension; Hypercholesterolemia (CMS/HCC); Chronic lymphocytic leukemia (CMS/HCC); Chronic obstructive pulmonary disease, unspecified (CMS/HCC); Murmur, cardiac; Dizziness and giddiness Start: 11-26-2024 End: 11-26-2024 ambulatory MIREYA MARIANAZ Not Available Start: 11-12-2024 End: 11-12-2024 ambulatory SUNNY ALT Not Available Start: 11-12-2024 End: 11-12-2024 Bamboo flowsheet Sunny Alt RN [facility] Start: 11-12-2024 End: 11-12-2024 Bamboo flowsheet Sunny Alt RN [facility] Start: 10-08-2024 End: 10-08-2024 ambulatory SUNNY ALT Not Available Start: 10-08-2024 End: 10-08-2024 Bamboo flowsheet Sunny Alt RN [facility] Start: 10-08-2024 End: 10-08-2024 Bamboo flowsheet Sunny Alt RN [facility] Start: 10-01-2024 End: 10-01-2024 Bamboo flowsheet Leander Chanel LARGE ENGINE ASSEMBLER Work Phone: [facility] Start: 10-01-2024 End: 10-01-2024 Bamboo flowsheet Leander Chanel LARGE ENGINE ASSEMBLER Work Phone: [facility] Start: 09-10-2024 End: 09-10-2024 Bamboo flowsheet Sunny Alt RN [facility] Start: 09-10-2024 End: 09-10-2024 Bamboo flowsheet Sunny Chery RN [facility] Start: 09-10-2024 End: 09-10-2024 ambulatory SUNNY CHERY Not Available Start: 09-07-2024 End: 09-07-2024 Refill Leander Meehank LARGE ENGINE ASSEMBLER Work Phone: [facility] Comment on above: 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 (CMS/HCC) Start: 08-18-2024 End: 08-18-2024 Bamboo flowsheet Leander Chanel LARGE ENGINE ASSEMBLER Work Phone: [facility] Start: 08-18-2024 End: 08-18-2024 Bamboo flowsheet Leander Chanel LARGE ENGINE ASSEMBLER Work Phone: [facility] Start: 08-18-2024 End: 08-18-2024 Patient encounter procedure Leander Chanel LARGE ENGINE ASSEMBLER Work Phone: [facility] Comment on above: 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, 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) (Primary Dx) Start: 08-18-2024 End: 08-18-2024 ambulatory LEANDER CHANEL Not Available Start: 08-06-2024 End: 08-06-2024 Office outpatient visit 15 minutes Frederick Zapata MD Work Phone: Hematology/Oncology Comment on above: Chronic lymphocytic leukemia (HCC) (Primary Dx) Start: 08-06-2024 End: 08-06-2024 ambulatory FREDERICK ZAPATA Facility:[facility] Start: 08-06-2024 End: 08-07-2024 Clinisync Result Encounter Generic External Data Provider [facility] External Department Unsolicited Start: 08-06-2024 End: 08-07-2024 Clinisync Result Encounter Generic External Data Provider [facility] External Department Unsolicited Start: 08-03-2024 End: 08-03-2024 Refill Leander Meehank LARGE ENGINE ASSEMBLER Work Phone: [facility] Comment on above: Type 2 diabetes talha itus without complication, without long- term current use of insulin (CMS/[facility]); Hypercholesterolemia ([facility]/HCC) Start: 07-22-2024 End: 07-22-2024 Refill Leander Chanel LARGE ENGINE ASSEMBLER Work Phone: [facility] Comment on above: Type 2 diabetes talha itus without complication, without long- term current use of insulin ([facility]/HCC) Start: 07-08-2024 End: 07-08-2024 Orders Only Leander Chanel LARGE ENGINE ASSEMBLER Work Phone: [facility] Comment on above: 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 (CMS/HCC) Start: 07-01-2024 End: 07-01-2024 Office outpatient visit 15 minutes Leander Gomezpatrick LARGE ENGINE ASSEMBLER Work Phone: [facility] Comment on above: 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, without long-term current use of insulin ([facility]/HCC) (Primary Dx); 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; Polyneuropathy due to type 2 diabetes mellitus ([facility]/HCC); Essential hypertension; Atherosclerosis of aorta ([facility]/HCC) Start: 07-01-2024 End: 07-01-2024 ambulatory LEANDER CHANEL Not Available Start: 07-01-2024 End: 07-01-2024 Bamboo flowsheet Leander Chanel LARGE ENGINE ASSEMBLER Work Phone: [facility] Start: 07-01-2024 End: 07-01-2024 Bamboo flowsheet Leander Chanel LARGE ENGINE ASSEMBLER Work Phone: [facility] Start: 06-23-2024 End: 06-23-2024 Orders Only Leander Chanel LARGE ENGINE ASSEMBLER Work Phone: [facility] Start: 06-22-2024 End: 06-23-2024 Refill Leander Chanel LARGE ENGINE ASSEMBLER Work Phone: [facility] Comment on above: 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 (CMS/HCC) Start: 04-30-2024 End: 04-30-2024 Refill Rosa Nguyen MA [facility] Comment on above: Hypercholesterolemia (CMS/HCC) Start: 04-23-2024 End: 04-23-2024 Refill Leander Chanel LARGE ENGINE ASSEMBLER Work Phone: [facility] Comment on above: Type 2 diabetes talha itus without complication, without long- term current use of insulin (CMS/HCC) (Primary Dx) Start: 08-20-2023 Patient encounter procedure Saurabh Chanel LARGE ENGINE ASSEMBLER Work Phone: [facility] Start: 08-08-2023 End: 08-08-2023 Office outpatient visit 25 minutes Frederick Zapata MD Work Phone: Hematology/Oncology Comment on above: Chronic lymphocytic leukemia (HCC) (Primary Dx) Start: 06-14-2023 (URG) Urgent Care Visit Annmarie booker [facility] Start: 06-14-2023 End: 06-14-2023 ambulatory Annmarie Mcgee Other [employer] Other Start: 12-03-2022 Orders Only Joshua velez PA-C Work Phone: Appointment Center Comment on above: Pain (Primary Dx) Start: 09-17-2022 End: 09-17-2022 ambulatory Annmarie Arely Other [employer] Other Start: 09-17-2022 Office outpatient ne w 20 minutes Annmarie Mcgee [facility] Start: 07-31-2022 End: 08-01-2022 ambulatory WOOL TAMPER MIREYA AICHADAN Facility:[facility] Start: 07-23-2022 End: 07-24-2022 ambulatory WOOL TAMPER MIREYA AICHHOLZ Facility:[facility] Start: 05-08-2022 End: 05-08-2022 ambulatory Shaikh Holly Facility:[facility] Start: 05-08-2022 End: 05-08-2022 Patient encounter procedure MD Shaikh Barrera Work Phone: [facility] [place] Start: 01-03-2022 End: 01-04-2022 ambulatory SHAIKH Carlotta BARRERA Facility: Start: 01-01-2022 End: 01-01-2022 ambulatory Frederick Zapata MD Work Phone: Hematology/Oncology Comment on above: Chronic lymphocytic leukemia (HCC) (Primary Dx) Start: 01-01-2022 End: 01-01-2022 Patient encounter procedure Frederick Zapata MD Work Phone: [facility] Start: 08-11-2021 End: 08-31-2021 Evaluation and management of inpatient SHAIKH NAM Facility:[facility] Start: 10-27-2020 End: 11-09-2020 Evaluation and management of inpatient REBECCA FARRIS Facility:[facility] Procedures Date Procedure Procedure Detail Performing Clinician Start: 04-07-2025 Blood occult peroxid ase actv qual feces 1 deter Mireya Rojas LARGE ENGINE ASSEMBLER Work Phone: Start: 03-31-2025 Hemoglobin glycosylated a1c Mireya Rojas LARGE ENGINE ASSEMBLER Work Phone: Start: 12-29-2024 Lipid 1996 panel - S bayron or Plasma Todd Vallecillo MD Work Phone: Start: 12-28-2024 Ecg routine ecg w/le ast 12 lds w/i&r Todd Vallecillo MD Work Phone: Start: 12-12-2024 CA ECHO DOPPLER COMPLETE Mireya Rojas LARGE ENGINE ASSEMBLER Work Phone: Start: 11-26-2024 Hemoglobin glycosylated a1c Mireya Rojas LARGE ENGINE ASSEMBLER Work Phone: Start: 08-06-2024 [facility] CBC W AUTO DIFF BLD Generic External Data Provider Start: 08-05-2023 End: 08-20-2023 H/O: colostomy Colostomy status Leander Chanel LARGE ENGINE ASSEMBLER Work Phone: Start: 07-23-2022 PSA screening WOOL TAMPER MIREYA CARTWRIGHTSENTHILJeff Comment on above: Performed By: #### P [facility] #### [facility] [address] [address] [address] Estrada Carpenter Start: 05-08-2022 Echography of scrotu m and contents MD Shaikh Barrera Work Phone: Start: 05-08-2022 Ultrasonography of abdomen MD Shaikh Barrera Work Phone: Start: 11-02-2020 DRAINAGE OF STOMACH WITH DRAINAGE DEVICE, VIA OPENING ZAHRAA DARBY Start: 10-30-2020 Bypass Descending Co jasmyne to Cutaneous, Open Approach RASHAADNLIN MEHNAZ Start: 10-30-2020 Resection of Sigmoid Colon, Open Approach RASHAADNLIN MEHNAZ Start: 10-27-2020 Antibody screen REBECCA FARRIS Comment on above: Performed By: #### 6 [id number] ####[place] [id number] [address] Plan of Treatment Date Care Activity Detail Author Start: 12-14-2032 DTaP/Tdap/Td Vaccines (2 - Td or Tdap) DTaP/Tdap/Td Vaccines (2 - Td or Tdap) [facility] Start: 12-14-2032 Urine microalbumin profile DTaP,Tdap,Td Vaccine (2 - Td or Tdap) [facility] Start: 08-06-2027 Diabetes Screening Diabetes Screening [facility] Start: 03-24-2027 Glaucoma screening Diabetes: Retinopathy Screening [facility] Start: 08-08-2026 Diabetes Screening Diabetes Screening [facility] Start: 03-23-2026 Glaucoma screening Diabetes: Retinopathy Screening [facility] Start: 12-29-2025 Lipid panel Lipid Panel [facility] Start: 12-29-2025 Urine screening for protein Diabetes: Urine Protein Screening [facility] Start: 10-01-2025 Hemoglobin A1c measurement Diabetes: Hemoglobin A1C [facility] Start: 09-28-2025 End: 09-28-2025 Patient encounter procedure 09/28/2025 1:40 PM EST Office Visit [address] [address] [facility]cillo MD [facility] [facility] [place] [address] [facility] Start: 08-18-2025 Medicare Annual Wellness (AWV) Medicare Annual Wellness (AWV) [facility] Start: 08-06-2025 End: 08-06-2025 CBC W Auto Differential panel - Blood COMPLETE BLOOD COUNT AND DIFFERENTIAL Lab Routine Chronic lymphocytic leukemia (HCC) Expected: 08/06/2025 (Approximate), Expires: 08/06/2025 [facility] Comment on above: Expected: 08/06/2025 (Approximate), Expi res: 08/06/2025 Start: 08-06-2025 End: 08-06-2025 Comprehensive metabolic 2000 panel - Serum or Plasma COMPREHENSIVE METABOLIC PANEL Lab Routine Chronic lymphocytic leukemia (HCC) Expected: 08/06/2025 (Approximate), Expires: 08/06/2025 [facility] Comment on above: Expected: 08/06/2025 (Approximate), Expi res: 08/06/2025 Start: 08-06-2025 End: 08-06-2025 Lactate dehydrogenase [Enzymatic activity/volume] in Serum or Plasma LACTATE DEHYDROGENASE Lab Routine Chronic lymphocytic leukemia (HCC) Expected: 08/06/2025 (Approximate), Expires: 08/06/2025 [facility] Work Phone: Comment on above: Expected: 08/06/2025 (Approximate), Expi res: 08/06/2025 Start: 08-05-2025 End: 08-05-2025 Follow-up encounter 08/05/2025 2:20 PM EST Visit (SP) Office Hematology/Oncology [address] [place] [address] Frederick Zapata MD [address] [place] [address] 1 year follow up Hematology/Oncolog y Comment on above: 1 year follow up Start: 08-05-2025 End: 08-05-2025 Patient encounter procedure 08/05/2025 2:00 PM EST Office Visit [facility] [address] [place] [address] 1 year follow up [facility] Comment on above: 1 year follow up Start: 07-01-2025 End: 07-01-2025 Patient encounter procedure 07/01/2025 1:20 PM EDT [facility] [address] [place] [address] Mireya Rojas, KHUSHI [address] [place] [address] [facility] Start: 05-29-2025 Hemoglobin A1c measurement Diabetes: Hemoglobin A1C [facility] Start: 05-03-2025 Influenza vaccination Influenza Vaccine (#1) [facility] Start: 03-31-2025 End: 03-31-2026 CBC W Auto Differential panel - Blood CBC and differential Lab Routine Generalized abdominal pain Expected: 03/31/2025 (Approximate), Expires: 03/31/2026 [facility] Comment on above: Expected: 03/31/2025 (Approximate), Expi res: 03/31/2026 Start: 03-31-2025 End: 03-31-2026 Comprehensive metabolic 2000 panel - Serum or Plasma Comprehensive metabolic panel Lab Routine Generalized abdominal pain Expected: 03/31/2025 (Approximate), Expires: 03/31/2026 [facility] Comment on above: Expected: 03/31/2025 (Approximate), Expi res: 03/31/2026 Start: 03-31-2025 End: 03-31-2026 Hemoglobin.gastrointest inal.lower [Presence] in Stool by Immunoassay Occult blood x 1, stool Lab Routine Generalized abdominal pain Expected: 03/31/2025 (Approximate), Expires: 03/31/2026 [facility] Work Phone: Comment on above: Expected: 03/31/2025 (Approximate), Expi res: 03/31/2026 Start: 03-31-2025 End: 03-31-2025 [facility] Comment on above: Type 2 diabetes mellitus with diabetic p olyneuropathy, without long-term current use of insulin (HCC) (Primary Dx); Essential hypertension; Type 2 diabetes mellitus without complication, without long-term current use of insulin ([facility]); Chronic lymphocytic leukemia of B-cell type not having achieved remission ([facility]); MVP (mitral valve prolapse); Dizziness and giddiness Start: 03-26-2025 Urine screening for protein Diabetes: Urine Protein Screening [facility] Start: 03-11-2025 End: 03-11-2025 Clinical Support 03/11/2025 2:30 PM EDT Clinical Support [facility] [address] [place] [address] Sunny Chery RN [facility] Start: 03-04-2025 End: 03-04-2025 Clinical Support 03/04/2025 2:30 PM EDT Clinical Support [facility] [address] [place] [address] Sunny Chery RN [facility] Start: 02-11-2025 Hemoglobin A1c measurement Diabetes: Hemoglobin A1C [facility] Start: 01-21-2025 End: 01-21-2025 Patient encounter procedure 01/21/2025 2:15 PM EDT Appointment [facility] [address] [address] [facility] Start: 01-21-2025 End: 01-21-2025 Patient encounter procedure [facility] Start: 01-01-2025 DIABETES SCREEN DIABETES SCREEN [facility] Start: 12-31-2024 End: 12-31-2024 Clinical Support [facility] Comment on above: Arrived Start: 12-30-2024 End: 12-30-2024 Patient encounter procedure [facility] Comment on above: Dizziness and giddiness (Primary Dx); Type 2 diabetes mellitus with diabetic polyneuropathy, 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); Nonrheumatic mitral valve regurgitation Start: 12-28-2024 End: 12-28-2026 NM Heart Perfusion W stress and W radionuclide IV Nuclear Stress Test Cardiac Nuclear Medicine Routine Shortness of breath Expected: 12/28/2024 (Approximate), Expires: 12/28/2026 [facility] Service Area Work Phone: Comment on above: Expected: 12/28/2024 (Approximate), Expi res: 12/28/2026 Start: 11-26-2024 End: 11-26-2025 Basic metabolic 1998 panel - Serum or Plasma Basic metabolic panel Lab Routine Type 2 diabetes mellitus with diabetic polyneuropathy, 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) Essential hypertension Expected: 11/26/2024 (Approximate), Expires: 11/26/2025 [facility] Comment on above: Expected: 11/26/2024 (Approximate), Expi res: 11/26/2025 Start: 11-26-2024 End: 11-26-2026 Echocardiogram 2D complete Echocardiogram 2D complete Echocardiography High Priority Essential hypertension Murmur, cardiac Dizziness and giddiness Expected: 11/26/2024 (Approximate), Expires: 11/26/2026 [facility] Comment on above: Expected: 11/26/2024 (Approximate), Expi res: 11/26/2026 Start: 11-26-2024 End: 11-26-2025 Hepatic function 2000 panel - Serum or Plasma Hepatic function panel Lab Routine Hypercholesterolemia (CMS/HCC) Expected: 11/26/2024 (Approximate), Expires: 11/26/2025 [facility] Comment on above: Expected: 11/26/2024 (Approximate), Expi res: 11/26/2025 Start: 11-26-2024 End: 11-26-2025 Lipid 1996 panel - Serum or Plasma Lipid panel Lab Routine Hypercholesterolemia (CMS/HCC) Expected: 11/26/2024 (Approximate), Expires: 11/26/2025 [facility] [facility] Comment on above: Expected: 11/26/2024 (Approximate), Expi res: 11/26/2025 Start: 11-26-2024 End: 11-26-2025 Microalbumin/Creatinine panel in random Urine Microalbumin / creatinine, urine ratio Lab Routine Type 2 diabetes mellitus with diabetic polyneuropathy, 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) Essential hypertension Expected: 11/26/2024 (Approximate), Expires: 11/26/2025 [facility] Work Phone: Comment on above: Expected: 11/26/2024 (Approximate), Expi res: 11/26/2025 Start: 11-26-2024 End: 11-26-2024 Patient encounter procedure [facility] Comment on above: Type 2 diabetes mellitus with diabetic p olyneuropathy, without long-term current use of insulin ([facility]/HCC) (Primary Dx); Benign essential hypertension ([facility]); Essential hypertension; Hypercholesterolemia ([facility]); Chronic lymphocytic leukemia ([facility]); Chronic obstructive pulmonary disease, unspecified ([facility]) Start: 11-26-2024 End: 11-26-2025 Urinalysis complete panel - Urine Urinalysis with reflex microscopic (clean catch) Lab Routine Type 2 diabetes mellitus with diabetic polyneuropathy, without long-term current use of insulin ([facility]) Essential hypertension Expected: 11/26/2024 (Approximate), Expires: 11/26/2025 [facility] Comment on above: Expected: 11/26/2024 (Approximate), Expi res: 11/26/2025 Start: 10-08-2024 End: 10-08-2024 Clinical Support [facility] Comment on above: Arrived Start: 10-01-2024 End: 10-01-2024 Patient encounter procedure [facility] Comment on above: Arrived Start: 09-26-2024 Hemoglobin A1c measurement Diabetes: Hemoglobin A1C [facility] Start: 09-10-2024 End: 09-10-2024 Clinical Support 09/10/2024 1:00 PM EST Clinical Support [facility] [address] [place] [address] Sunny Chery, PATTY MURPHY FNR Start: 08-24-2024 End: 08-24-2024 Patient encounter procedure 08/24/2024 1:00 PM EST Office Visit [facility] [address] [place] [address] Shaikh Barrera MD [address] [place] [address] [facility] Start: 08-20-2024 Medicare Annual Wellness (AWV) Medicare Annual Wellness (AWV) [facility] Start: 08-20-2024 End: 08-20-2024 Patient encounter procedure 08/20/2024 1:30 PM EST Office Visit [facility] [address] [place] [phone] Leander Chanel, LARGE ENGINE ASSEMBLER [address] [place] [phone] [facility] Start: 08-18-2024 End: 08-18-2024 Patient encounter procedure [facility] Comment on above: Arrived Start: 07-08-2024 End: 07-08-2024 Clinical Support 07/08/2024 2:30 PM EST Clinical Support [facility] [address] [place] [address] [facility] Start: 07-01-2024 End: 07-01-2024 Patient encounter procedure [facility] Comment on above: Arrived Start: 07-01-2024 End: 07-01-2025 Hemoglobin A1c/Hemoglobin.total in Blood Hemoglobin A1c Lab Routine Type 2 diabetes mellitus with diabetic polyneuropathy, without long-term current use of insulin ([facility]) Expected: 07/01/2024 (Approximate), Expires: 07/01/2025 [facility] Work Phone: Comment on above: Expected: 07/01/2024 (Approximate), Expi res: 07/01/2025 Start: 05-03-2024 Covid-19 Vaccine ( season) Covid-19 Vaccine () [facility] Start: 05-03-2024 Influenza vaccination Influenza Vaccine (#1) [facility] Start: 04-24-2024 Urine screening for protein Diabetes: Urine Protein Screening [facility] Start: 09-02-2023 Advance Directive Discussion Advance Directive Discussion [facility] Start: 05-03-2023 Covid-19 Vaccine () Covid-19 Vaccine () [facility] Start: 05-03-2023 Influenza vaccination INFLUENZA (Season Ended) [facility] Start: 01-01-2023 End: 01-01-2023 CBC W Auto Differential panel - Blood CBC + DIFF Lab Routine Chronic lymphocytic leukemia (HCC) Expected: 01/01/2023 (Approximate), Expires: 01/01/2023 [facility] Work Phone: Comment on above: Expected: 01/01/2023 (Approximate), Expi res: 01/01/2023 Start: 01-01-2023 End: 01-01-2023 Comprehensive metabolic 2000 panel - Serum or Plasma COMP METABOLIC PANEL Lab Routine Chronic lymphocytic leukemia (HCC) Expected: 01/01/2023 (Approximate), Expires: 01/01/2023 [facility] Work Phone: Comment on above: Expected: 01/01/2023 (Approximate), Expi res: 01/01/2023 Start: 01-01-2023 End: 01-01-2023 Lactate dehydrogenase [Enzymatic activity/volume] in Serum or Plasma LD LACTATE DEHYDRO Lab Routine Chronic lymphocytic leukemia (HCC) Expected: 01/01/2023 (Approximate), Expires: 01/01/2023 [facility] Work Phone: Comment on above: Expected: 01/01/2023 (Approximate), Expi res: 01/01/2023 Start: 09-02-2022 ADVANCE DIRECTIVE DISCUSSION ADVANCE DIRECTIVE DISCUSSION [facility] Start: 09-02-2022 DEPRESSION ASSESSMENT DEPRESSION ASSESSMENT [facility] Start: 08-15-2022 COVID-19 Vaccine (2 - Pfizer risk series) COVID-19 Vaccine (2 - Pfizer risk series) [facility] Start: 12-12-2021 COVID-19 VACCINE (4 - Booster for Pfizer series) COVID-19 VACCINE (4 - Booster for Pfizer series) [facility] Start: 11-08-2021 COVID-19 VACCINE (4 - Booster for Pfizer series) COVID-19 VACCINE (4 - Booster for Pfizer series) [facility] Start: 09-02-2021 ADVANCE DIRECTIVE DISCUSSION ADVANCE DIRECTIVE DISCUSSION [facility] Start: 11-25-2019 Urine screening for protein Diabetes: Urine Protein Screening [facility] Start: 2013 RSV High Risk: (Elderly (60+) or Population) (1 - 1-dose 75+ series) RSV High Risk: (Elderly (60+) or Population) (1 - 1-dose 75+ series) [facility] Start: 2013 RSV Vaccine (1 - 1-dose 75+ series) RSV Vaccine (1 - 1-dose 75+ series) [facility] Start: 1998 RSV Vaccine (1 - 1-dose 60+ series) RSV Vaccine (1 - 1-dose 60+ series) [facility] Start: 02-05-1988 SHINGRIX VACCINE (1 of 2) SHINGRIX VACCINE (1 of 2) [facility] Start: 1957 SHINGRIX VACCINE (1 of 2) SHINGRIX VACCINE (1 of 2) [facility] Start: 1957 Urine microalbumin profile DTAP,TDAP,TD (1 - Tdap) [facility] Start: 1957 Zoster Vaccines (1 of 2) Zoster Vaccines (1 of 2) [facility] Start: 02-05-1956 Anxiety Screening Anxiety Screening [facility] Start: 02-05-1956 Depression Screening Depression Screening [facility] Start: 02-05-1948 Glaucoma screening Diabetes: Retinopathy Screening [facility] Start: 1938 Annual wellness visit Welcome to Medicare Visit [facility] Start: 1938 Hemoglobin A1c measurement Diabetes: Hemoglobin A1C [facility] Start: 1938 Lipid panel Lipid Panel [facility] End: 08-07-2024 CBC W Auto Differential panel - Blood CBC + DIFF Lab Routine Chronic lymphocytic leukemia (HCC) Every 6 months for 3 Occurrences starting 08/08/2023 until 08/07/2024, 1 completed [facility] Work Phone: Comment on above: Every 6 months for 3 Occurrences startin g 08/08/2023 until 08/07/2024, 1 completed CBC W Auto Different ial panel - Blood CBC + DIFF Lab Routine Chronic lymphocytic leukemia (HCC) 08/08/2023 3:21 PM EST [facility] Work Phone: End: 08-07-2024 Comprehensive metabolic 2000 panel - Serum or Plasma COMP METABOLIC PANEL Lab Routine Chronic lymphocytic leukemia (HCC) Every 6 months for 3 Occurrences starting 08/08/2023 until 08/07/2024, 1 completed [facility] Work Phone: Comment on above: Every 6 months for 3 Occurrences startin g 08/08/2023 until 08/07/2024, 1 completed End: 08-07-2024 Lactate dehydrogenase [Enzymatic activity/volume] in Serum or Plasma LD LACTATE DEHYDRO Lab Routine Chronic lymphocytic leukemia (HCC) Every 6 months for 3 Occurrences starting 08/08/2023 until 08/07/2024, 1 completed [facility] Work Phone: Comment on above: Every 6 months for 3 Occurrences startin g 08/08/2023 until 08/07/2024, 1 completed End: 08-07-2024 Urate [Mass/volume] in Serum or Plasma URIC ACID BLOOD Lab Routine Chronic lymphocytic leukemia (HCC) Every 6 months for 3 Occurrences starting 08/08/2023 until 08/07/2024, 1 completed [facility] Work Phone: Comment on above: Every 6 months for 3 Occurrences startin g 08/08/2023 until 08/07/2024, 1 completed End: 01-02-2024 XR HAND GENERAL 3V PA/LAT/OBL LEFT XR HAND GENERAL 3V PA/LAT/OBL LEFT Radiology Routine Pain 1 Occurrences starting 12/03/2022 until 01/02/2024 [facility] Work Phone: Comment on above: 1 Occurrences starting 12/03/2022 until 01/02/2024 End: 01-02-2024 XR HAND GENERAL 3V PA/LAT/OBL RIGHT XR HAND GENERAL 3V PA/LAT/OBL RIGHT Radiology Routine Pain 1 Occurrences starting 12/03/2022 until 01/02/2024 [facility] Work Phone: Comment on above: 1 Occurrences starting 12/03/2022 until 01/02/2024 [facility] Immunizations Immunization Date Immunization Notes Care Provider Fa [facility] 06-23-2024 influenza, high dose seasonal, preservative-free Mireya Rojas LARGE ENGINE ASSEMBLER Work Phone: [facility] 06-23-2024 influenza virus vaccine, unspecified formulation Leander Chanel LARGE ENGINE ASSEMBLER Work Phone: [facility] 07-03-2023 Influenza, High-dose Seasonal, Quadrivalent, Preservative Free Leander Chanel LARGE ENGINE ASSEMBLER Work Phone: [facility] 07-03-2023 influenza virus vaccine, unspecified formulation Leander Chanel LARGE ENGINE ASSEMBLER Work Phone: [facility] 12-26-2022 tuberculin skin test ; purified protein derivative solution, intradermal Leander Chanel LARGE ENGINE ASSEMBLER Work Phone: [facility] 12-19-2022 tuberculin skin test ; purified protein derivative solution, intradermal Leander Chanel LARGE ENGINE ASSEMBLER Work Phone: [facility] 12-14-2022 tetanus toxoid, redu kayley diphtheria toxoid, and acellular pertussis vaccine, adsorbed Leander Chanel LARGE ENGINE ASSEMBLER Work Phone: [facility] 07-25-2022 Influenza, High-dose Seasonal, Quadrivalent, Preservative Free Leander Chanel LARGE ENGINE ASSEMBLER Work Phone: [facility] 07-25-2022 Pfizer COVID-19 vaccine, bivalent, age 12 years and older (30 mcg/0.3 mL) Todd Vallecillo MD Work Phone: [facility] 05-18-2021 Influenza, High-dose Seasonal, Quadrivalent, Preservative Free Leander Chanel LARGE ENGINE ASSEMBLER Work Phone: [facility] 09-22-2020 COVID-19 vaccine, ag e 12+ yr (PFIZER-BIONTECH - PURPLE TOP) Frederick Zapata MD Work Phone: [facility] 09-01-2020 COVID-19 vaccine, ag e 12+ yr (PFIZER-BIONTECH - PURPLE TOP) Frederick Zapata MD Work Phone: [facility] 05-14-2020 influenza, injectabl e, quadrivalent, preservative free Frederick Zapata MD Work Phone: [facility] 06-29-2019 Seasonal trivalent influenza vaccine, adjuvanted, preservative free Frederick Zapata MD Work Phone: [facility] 06-18-2018 influenza, high dose seasonal, preservative-free Frederick Zapata MD Work Phone: [facility] 06-03-2017 influenza, injectabl e, quadrivalent, contains preservative Frederick Zapata MD Work Phone: [facility] 04-27-2017 influenza, high dose seasonal, preservative-free Frederick Zapata MD Work Phone: [facility] 04-27-2017 pneumococcal polysaccharide vaccine, 23 valent Frederick Zapata MD Work Phone: [facility] 10-23-2016 pneumococcal polysaccharide vaccine, 23 valent Frederick Zapata MD Work Phone: [facility] 06-22-2015 pneumococcal conjuga te vaccine, 13 kris Zapata MD Work Phone: [facility] 06-21-2015 seasonal influenza, intradermal, preservative free Leander Chanel NP Work Phone: [facility] 06-05-2013 influenza virus vaccine, whole virus Frederick Zapata MD Work Phone: [facility] 06-18-2012 influenza virus vaccine, whole virus Frederick Zapata MD Work Phone: [facility] 06-04-2011 influenza virus vaccine, whole virus Frederick Zapata MD Work Phone: [facility] 06-21-2010 influenza virus vaccine, whole virus Frederick Zapata MD Work Phone: [facility] 06-22-2009 influenza virus vaccine, whole virus Frederick Zapata MD Work Phone: [facility] Payers Date Payer Category Payer Private Health Insurance [facility] [id number] 2024 Medicare [id number] 2023 Medicare DEVOTED MEDICARE DEVOTED HEALTH [place] HMO [id number] 2023-Present [phone] [address] [place] [address] HMO [id number] 2023 Medicare (Managed Care) 1.2. [id number] 2023 Unknown [id number] 2022 Unknown [id number] [id number]. [id number] 2022 Self-pay [id number] 2019 Unknown ANTHEM BLUE CROS S AND BLUE SHIELD ANTHEM MEDIBLUE ACCESS [id number] 2019-Present [phone] [address] [place] [address] PPO [id number]. [id number] 1959 Unknown [id number] 1938 Unknown [id number] 2.16.840.1.483991.3.579. 2.647 1938 Unknown [id number] 2.16.840.1.361189.3.579. 2.647 1938 Unknown [id number] 2.16.840.1.685930.3.579. 2.593 1938 Unknown [id number] 2.16.840.1.716252.3.579. 2.593 1938 Unknown [id number] 2.16.840.1.406419.3.579. 2.593 1938 Unknown [id number] 2.16.840.1.672401.3.579. 2.124 1938 Unknown [id number] 2.16.840.1.882568.3.579. 2.124 1938 Unknown [id number] 2.16.840.1.877222.3.579. 2.1245 1938 Unknown [id number] 2..840.1.819022.3.579. 2.124 1938 Unknown [id number] 2.16.840.1.603116.3.579. 2.1245 1938 Unknown [id number] 2.16.840.1.799325.3.579. 2.1244 1938 Unknown [id number] 2.16.840.1.572798.3.579. 2.1244 1938 Unknown [id number] 2.16.840.1.784507.3.579. 2.125 1938 Unknown [id number] 2.16.840.1.143529.3.579. 2.1258 1938 Unknown [id number] 2.16.840.1.923354.3.579. 2.1258 1938 Unknown [id number] 2.16.840.1.150682.3.579. 2.1259 1938 Unknown [id number] 2.16.840.1.091234.3.579. 2.1259 1938 Unknown [id number] 2.16.840.1.326405.3.579. 2.9 1938 Unknown [id number] 2.16.840.1.103421.3.579. 2.1258 1938 Unknown [id number] 2.16.840.1.838836.3.579. 2.1258 1938 Unknown [id number] 2.16.840.1.343481.3.579. 2.1258 1938 Unknown [id number] 2.16.840.1.897777.3.579. 2.1258 1938 Unknown [id number] 2.16840.1.965331.3.579. 2.1259 Medicare [id number] 2.0.1.043563.19 Unknown HCAP/HFA/FAP Active [id number] Unknown [id number] 2.16840.1.407617.3.579. 2.531 Social History Date Type Detail Facility Start: 05-15-2013 End: 12-28-2024 Tobacco smoking status NHIS Ex-smoker [facility] Start: [birth year]-02-1951 End: 09-02-1989 History of tobacco use Current smoker [facility] Start: [birth year]-02-1953 End: 09-02-1989 History of tobacco use Cigarette Smoker [facility] Start: 01-01-2022 End: 08-06-2024 Alcohol intake Current non-drinker of alcohol (finding) [facility] Start: 1940 Sex Assigned At Not on file C [facility] Start: 12-22-2021 End: 02-10-2025 Exposure to SARS-CoV-2 (event) Not sure [facility] Start: 1940 Sex Assigned At Male F [facility] Start: 08-08-2023 End: 01-07-2024 Sex Assigned At [facility] Start: 05-15-2013 End: 01-07-2024 Cigarettes smoked current (pack per day) - Reported 1 [facility] Start: 05-15-2013 End: 11-12-2023 Tobacco use and exposure Smokeless tobacco non-user [facility] Adult Depression Screening Assessment 0 [facility] Start: 11-12-2023 Tobacco smoking stat us NHIS Never smoked tobacco [facility] Start: 04-01-2024 End: 03-31-2025 Alcoholic beverage intake Lifetime non-drinker (finding) [facility] Within the last year , have you been afraid of your partner or ex-partner? No [facility] Do you belong to any clubs or organizations such as druze groups, unions, fraHeliatek or athletic groups, or school groups? Yes [...] true [facility] Start: 08-05-2023 Alcohol Comment caffeine:1-2cups/day [facility] How often do you nee d to have someone help you when you read instructions, pamphlets, or other written material from your doctor or pharmacy [SILS] Sometimes [facility] Start: 01-01-2025 Sexual orientation Heterosexual (fin pierre) [facility] NEGATED: Highlighted rowStart: CHIKAF History of tobacco use Passive smoker [facility] Medical Equipment Procedure Code Equipment Code Equipment Origin al Text Equipment Identifier Dates [id number] Start: 02-10-2024 End: 12-30-2024 Clinical Notes 11-10-2020 to 03-31-2025 Mireya Rojas NP - 03/31/2025 2:48 PM Nancy Rojas NP - 03/31/2025 2:47 PM ALEX VERMA - 03/31/2025 2:00 PM EDMaribel Rojas NP - 03/31/2025 2:00 PM EDTPatient InstructionsAttachments Note Date & Type Note Facility 03-31-2025 History of Present illness Narrative Associated Problem(s): 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 Eitan Hurtado is a 85 y.o. male presents with chief complaint of Diabetes HPI: Dizziness is better, has seen cardiology Occ abd pain: mostly LLQ, no NV, occ black stools, no visible blood intermittent no correlation of sxs and no correlation to eating or not Diabetes He presents for his follow-up diabetic visit. He has type 2 diabetes mellitus. His disease course has been stable. There are no hypoglycemic associated symptoms. Pertinent negatives for hypoglycemia include no dizziness, nervousness/anxiousness, seizures or tremors. Pertinent negatives for diabetes include no foot paresthesias, no polydipsia, no polyphagia and no polyuria. There are no hypoglycemic complications. Symptoms are stable. Risk factors for coronary artery disease include diabetes mellitus, dyslipidemia and male sex. Current diabetic treatment includes oral agent (dual therapy). He is compliant with treatment all of the time. He is following a generally healthy diet. His overall blood glucose range is 130-140 mg/dl. An COURTNEY inhibitor/angiotensin II receptor chauncey is not being taken. SUBJECTIVE: MEDICATIONS: Current Outpatient Medications Medication Instructions folic acid (Folvite) 1 MG tablet gabapentin (NEURONTIN) 300 mg, Oral, 3 times daily glipiZIDE (GLUCOTROL) 10 mg, Oral, 2 times daily before meals glucose blood (Fidbacksuch Ultra Test) test strip Twice a day. Use as instructed methotrexate 2.5 mg, Weekly simvastatin (ZOCOR) 40 mg, Oral, Every evening SITagliptin (JANUVIA) 100 mg, Oral, Daily triamcinolone (Kenalog) 0.1 % cream ALLERGIES: Allergies Allergen Reactions Oxycodone Unknown Percocet [Oxycodone-Acetaminophen] Codeine Hallucinations and GI intolerance REVIEW OF SYMPTOMS: Review of Systems Constitutional: Negative for activity change, appetite change and unexpected weight change. HENT: Negative for ear pain, nosebleeds, sneezing, trouble swallowing and voice change. Eyes: Negative for pain, discharge and visual disturbance. Respiratory: Negative for apnea, chest tightness and wheezing. Cardiovascular: Negative for leg swelling. Gastrointestinal: Positive for abdominal pain. Negative for abdominal distention, blood in stool, constipation and diarrhea. Genitourinary: Negative for decreased urine volume, difficulty urinating, dysuria and hematuria. Skin: Negative for color change. Neurological: Negative for dizziness, tremors and seizures. Psychiatric/Behavioral: Negative for agitation, decreased concentration, hallucinations, self-injury and suicidal ideas. The patient is not nervous/anxious. Hematological: Negative for adenopathy. Does not bruise/bleed easily. Endocrine: Negative for cold intolerance, heat intolerance, polydipsia, polyphagia and polyuria. Allergic/Immunologic: Negative for environmental allergies and food allergies. PAST MEDICAL HISTORY Past Medical History: Diagnosis Date Acute myocardial infarction of anterolateral wall, initial episode of care ([facility]) Alzheimer's dementia without behavioral disturbance ([facility]) Appendicitis Arthritis Central hearing loss Chronic airway obstruction ([facility]) Chronic lymphoid leukemia, without mention of having achieved remission(204.10) ([facility]) COPD (chronic obstructive pulmonary disease) ([facility]) Coronary atherosclerosis Diabetes ([facility]) Dupuytren's contracture of both hands Endolymphatic hydrops, bilateral Essential hypertension, benign Heart murmur History of being hospitalized 2014 small bowel obstruction History of blood clots Hx of being hospitalized 10/27/2020 Perforated Diverticulitis Hx of being hospitalized 04/07/2021 Colitis, Sepsis Hypercholesterolemia Hypertension Kidney disease Left shoulder pain Leukemia ([facility]) ESCL Leukocytosis Meniere disease Mitral valve disorder Nephrolithiasis Osteoarthrosis Painful diabetic neuropathy (HCC) Personal history of colonic polyps Pure hypercholesterolemia Sleep disorder Type 2 diabetes mellitus treated without insulin (HCC) Uric acid nephrolithiasis Past Surgical History: Procedure Laterality Date APPENDECTOMY CATARACT EXTRACTION Bilateral 2014 CHOLECYSTECTOMY COLECTOMY reverse HERNIA REPAIR LITHOTRIPSY OTHER SURGICAL HISTORY Bilateral Bilat intratympanic steroid injections:Bilat endolymphatic hydrops OTHER SURGICAL HISTORY 1979 vein stripping OTHER SURGICAL HISTORY Left 2018 CT release w/decompression, left guyons canal release, left cubital tunnel release w/ant nerve transportation, left sm finger palm fasciectomy and excison of Dupuytrens contrcture family history includes Cancer in his brother; Diabetes in his father and sister; Hypertension in his mother. OBJECTIVE: Visit Vitals BP 120/66 (BP Location: Left arm, Patient Position: Sitting, BP Cuff Size: Adult long) Pulse 73 Temp 98.5 F (Temporal) Resp 20 Wt 160 lb 3.2 oz SpO2 96% BMI 27.50 kg/m Smoking Status Never BSA 1.81 m Physical Exam Vitals and nursing note reviewed. Constitutional: Appearance: Normal appearance. HENT: Head: Normocephalic. Right Ear: External ear normal. Left Ear: External ear normal. Nose: Nose normal. Mouth/Throat: Mouth: Mucous membranes are moist. Pharynx: Oropharynx is clear. Eyes: Extraocular Movements: Extraocular movements intact. Conjunctiva/sclera: Conjunctivae normal. Cardiovascular: Rate and Rhythm: Normal rate and regular rhythm. Pulses: Normal pulses. Heart sounds: Murmur heard. Pulmonary: Effort: Pulmonary effort is normal. Breath sounds: Normal breath sounds. No wheezing or rhonchi. Abdominal: General: Bowel sounds are normal. Palpations: Abdomen is soft. Musculoskeletal: Cervical back: Neck supple. Skin: General: Skin is warm and dry. Capillary Refill: Capillary refill takes 2 to 3 seconds. Neurological: General: No focal deficit present. Mental Status: He is alert. Psychiatric: Mood and Affect: Mood normal. Behavior: Behavior normal. Thought Content: Thought content normal. Judgment: Judgment normal. ASSESSMENT AND PLAN: Follow up in about 3 months (around 07/01/2025) for Recheck. 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 Current meds; januvia, glipizide A1c: 7.0% 03/31/25, 6.6% 11/26/24 Relevant Orders POCT glycosylated hemoglobin (Hb A1C) docked device (Completed) Essential hypertension (Chronic) No current meds, recommend low salt diet, weight loss, 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 Type 2 diabetes mellitus with diabetic polyneuropathy, without long-term current use of insulin (HCC) - Primary Recommend freq foot check, comfortable shoes, as well as keeping glucose under good control Dizziness and giddiness Did see cardiology , see their notes MVP (mitral valve prolapse) I have reviewed cardiology notes Abdominal pain Check labs, incisional hernias Consider CT scan pending labs and stool Relevant Orders Occult blood x 1, stool CBC and differential Comprehensive metabolic panel Associated Problem(s): Dizziness and giddiness Did see cardiology , see their notes Associated Problem(s): MVP (mitral valve prolapse) I have reviewed cardiology notes Associated Problem(s): Type 2 diabetes mellitus without complication, without long-term current use of insulin (HCC) Check blood sugars daily, notify if <70 [...] diet low in carbohydrates, and simple sugars. Current meds; januvia, glipizide A1c: 7.0% 03/31/25, 6.6% 11/26/24 Associated Problem(s): Essential hypertension No current meds, recommend low salt diet, weight loss, 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 Associated Problem(s): Type 2 diabetes mellitus with diabetic polyneuropathy, without long-term current use of insulin (HCC) Recommend freq foot check, comfortable shoes, as well as keeping glucose under good control documented in this encounter [facility] 03-31-2025 Instructions Mireya Rojas NP - 03/31/2025 2:00 PM EDT Check blood work and stool for blood documented in this encounter [facility] 03-04-2025 History of Present illness Narrative Pt into office stating he only has four pills left of Januvia. Link Cutter attempted to contact [facility] for refill but they are closed already for the holiday weekend. I did call twice to confirm the recording, Pt did not call them last month for refill when it should have been filled. So law writer reminded pt that when he gets down to 14 pills, to call me, and I will call [facility] and request the refill for him. I checked for samples and we do not have any in the office. I spoke with Dr Beyer and he will send in a 10 day supply for him to [facility]. And I will reach back out to [facility] on Saturday to get Renanuvkana taken care of. Pt was informed and he voiced understanding. He did repeat back to me correctly when to call me regarding his Candy medication refill. I also gave him his next appt information with PCP on 03/31 at 1400. Pt stated he did write it down so he won't forget. Sent. documented in this encounter [facility] 02-10-2025 History of Present illness Narrative Chief Complaint Patient presents with Follow-up Follow up Stress results Subjective Eitan Hurtado is a 85 y.o. male HPI Patient is here for follow-up continue management for recent evaluation for mitral valve prolapse, dizziness and orthostatic hypotension shortness of breath. Since last time I saw him he denies any change in cardiac status or symptoms. He described class I shortness of breath. He describe rare episodes of orthostatic hypotension. He denies lightheadedness, dizziness or syncope. His recent stress test was negative for myocardial ischemia. Echocardiogram showed normal LV systolic function and mitral valve prolapse. Assessment 1. Symptoms of orthostatic hypotension likely due to diabetic autonomic neuropathy symptoms appears very mild improved with increasing fluid intake 2. Mitral valve prolapse with moderate mitral regurgitation 3. Longstanding diabetes mellitus 4. Former smoker 5. Intermittent episode of shortness of breath and decreased exercise tolerance. Recent stress test was negative for myocardial ischemia 6. Former smoker 7. BMI of 27 Plan 1. I reviewed with him his previous echo and a stress test and reassured him and recommended continue with observant approach 2. I advised him to increase his fluid and salt intake and we will reassess his symptoms of orthostatic hypotension 3. I we will see him back in the office in 6 months and follow-up 4. Will continue to monitor his mitral regurgitation with serial echo Review of Systems All other systems reviewed and are negative. Vitals: 02/10/25 1317 BP: 112/52 BP Location: Right arm Patient Position: Sitting Pulse: 72 Weight: 71.9 kg (158 lb 9.6 oz) Height: 1.626 m (5' 4 ) Objective Physical Exam Constitutional: Appearance: Normal appearance. HENT: Nose: Nose normal. Neck: Vascular: No carotid bruit. Cardiovascular: Rate and Rhythm: Normal rate. Pulses: Normal pulses. Heart sounds: Murmur heard. Systolic murmur is present with a grade of 2/6. Pulmonary: Effort: Pulmonary effort is normal. Abdominal: General: Bowel sounds are normal. Palpations: Abdomen is soft. Musculoskeletal: General: Normal range of motion. Cervical back: Normal range of motion. Right lower leg: No edema. Left lower leg: No edema. Skin: General: Skin is warm and dry. Neurological: General: No focal deficit present. Mental Status: He is alert. Psychiatric: Mood and Affect: Mood normal. Behavior: Behavior normal. Thought Content: Thought content normal. Judgment: Judgment normal. Allergies Codeine Current Medications Current Outpatient Medications Medication Instructions FIBER, PSYLLIUM HUSK, ORAL 1 capsule, 4 times daily folic acid (FOLVITE) 1 mg, Daily gabapentin (NEURONTIN) 300 mg, 3 times daily glipiZIDE (GLUCOTROL) 10 mg, 2 times daily Januvia 100 mg, Daily melatonin 10 mg tablet extended release 1 capsule, Nightly methotrexate (TREXALL) 2.5 mg, Weekly multivitamin tablet 1 tablet, Daily simvastatin (ZOCOR) 40 mg, Daily RT Assessment/Plan 1. Shortness of breath 2. Mitral valve prolapse Follow Up In Cardiology Follow Up In Cardiology 3. Dizziness 4. Orthostatic hypotension 5. Nonrheumatic mitral valve regurgitation 6. Diabetes mellitus type II, non insulin dependent (Multi) 7. BMI 27.0-27.9,adult 8. Former smoker Scribe Attestation By signing my name below, I, Alana Jhonny WILLIS , Scribe attest that this documentation has been prepared under the direction and in the presence of Todd Vallecillo MD. Provider Attestation - Scribe documentation All medical record entries made by the Scribe were at my direction and personally dictated by me. I have reviewed the chart and agree that the record accurately reflects my personal performance of the history, physical exam, discussion and plan. documented in this encounter [facility] Work Phone: 02-10-2025 Instructions Alana Mcdaniel LPN - 02/10/2025 12:50 PM EDT Please bring all medicines, vitamins, and herbal supplements with you when you come to the office. Prescriptions will not be filled unless you are compliant with your follow up appointments or have a follow up appointment scheduled as per instruction of your physician. Refills should be requested at the time of your visit. BMI was above normal measurement. Current weight: 71.9 kg (158 lb 9.6 oz) Weight change since last visit (-) denotes wt loss -1.4 lbs Weight loss needed to achieve BMI 25: 13.3 Lbs Weight loss needed to achieve BMI 30: -15.8 Lbs Provided instructions on dietary changes. The following attachments cannot be sent through Care Everywhere.Heart Healthy Diet (Bahraini)documented in this encounter [facility] Work Phone: 12-30-2024 History of Present illness Narrative Associated Problem(s): Type 2 diabetes mellitus without complication, without long-term current use of insulin Check blood sugars daily, notify if <70 [...] diet low in carbohydrates, and simple sugars. Current meds; januvia, glipizide A1c: 6.6% 11/26/24 Pt had gotten labs done yesterday- results are in Pt is needing a refill on his onetouch ultra test strips (50 strips) Pt is concerned his sugar numbers ( they look to be in range) He states he see primary special educator soon Images from the original note were not included. Eitan Hurtado is a 84 y.o. male presents with chief complaint of Diabetes HPI: Diabetes He presents for his follow-up diabetic visit. He has type 2 diabetes mellitus. His disease course has been improving. Hypoglycemia symptoms include dizziness. Pertinent negatives for hypoglycemia include no nervousness/anxiousness, seizures or tremors. Pertinent negatives for diabetes include no polydipsia, no polyphagia and no polyuria. There are no hypoglycemic complications. Symptoms are improving. Diabetic complications include heart disease. Risk factors for coronary artery disease include diabetes mellitus, dyslipidemia and male sex. Current diabetic treatment includes oral agent (dual therapy). His weight is decreasing steadily. He is following a diabetic and generally healthy diet. He has not had a previous visit with a dietitian. His overall blood glucose range is 130-140 mg/dl. An COURTNEY inhibitor/angiotensin II receptor chauncey is not being taken. He does not see a technical developer.Eye exam is current. SUBJECTIVE: MEDICATIONS: Current Outpatient Medications Medication Instructions folic acid (Folvite) 1 MG tablet gabapentin (NEURONTIN) 300 mg, Oral, 3 times daily glipiZIDE (GLUCOTROL) 10 mg, Oral, 2 times daily before meals glucose blood (OneTouch Ultra Test) test strip Twice a day. Use as instructed methotrexate 2.5 mg, Weekly simvastatin (ZOCOR) 40 mg, Oral, Daily SITagliptin (JANUVIA) 100 mg, Oral, Daily triamcinolone (Kenalog) 0.1 % cream ALLERGIES: Allergies Allergen Reactions Oxycodone Unknown Percocet [Oxycodone-Acetaminophen] Codeine Hallucinations and GI intolerance REVIEW OF SYMPTOMS: Review of Systems Constitutional: Negative for activity change, appetite change and unexpected weight change. HENT: Negative for ear pain, nosebleeds, sneezing, trouble swallowing and voice change. Eyes: Negative for pain, discharge and visual disturbance. Respiratory: Negative for apnea, chest tightness and wheezing. Cardiovascular: Negative for leg swelling. Gastrointestinal: Negative for abdominal distention, blood in stool, constipation and diarrhea. Genitourinary: Negative for decreased urine volume, difficulty urinating, dysuria and hematuria. Skin: Negative for color change. Neurological: Positive for dizziness. Negative for tremors and seizures. Psychiatric/Behavioral: Negative for agitation, decreased concentration, hallucinations, self-injury and suicidal ideas. The patient is not nervous/anxious. Hematological: Negative for adenopathy. Does not bruise/bleed easily. Endocrine: Negative for cold intolerance, heat intolerance, polydipsia, polyphagia and polyuria. Allergic/Immunologic: Negative for environmental allergies and food allergies. 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) ([facility]) COPD (chronic obstructive pulmonary disease) ([facility]) Coronary atherosclerosis ([facility]) Diabetes ([facility]) Dupuytren's contracture of both hands Endolymphatic hydrops, bilateral Essential hypertension, benign ([facility]) Heart murmur History of being hospitalized 2014 small bowel obstruction History of blood clots Hx of being hospitalized 10/27/2020 Perforated Diverticulitis Hx of being hospitalized 04/07/2021 Colitis, Sepsis Hypercholesterolemia ([facility]) Hypertension ([facility]) Kidney disease Left shoulder pain Leukemia ([facility]) ESCL Leukocytosis Meniere disease Mitral valve disorder Nephrolithiasis Osteoarthrosis Painful diabetic neuropathy ([facility]) Personal history of colonic polyps Pure hypercholesterolemia ([facility]) Sleep disorder Type 2 diabetes mellitus treated without insulin ([facility]) Uric acid nephrolithiasis Past Surgical History: Procedure Laterality Date APPENDECTOMY CATARACT EXTRACTION Bilateral 2014 CHOLECYSTECTOMY COLECTOMY reverse HERNIA REPAIR LITHOTRIPSY OTHER SURGICAL HISTORY Bilateral Bilat intratympanic steroid injections:Bilat endolymphatic hydrops OTHER SURGICAL HISTORY 1979 vein stripping OTHER SURGICAL HISTORY Left 2018 CT release w/decompression, left guyons canal release, left cubital tunnel release w/ant nerve transportation, left sm finger palm fasciectomy and excison of Dupuytrens contrcture family history includes Cancer in his brother; Diabetes in his father and sister; Hypertension in his mother. OBJECTIVE: Visit Vitals BP 108/68 (BP Location: Left arm, Patient Position: Sitting, BP Cuff Size: Adult long) Pulse 59 Temp 98.5 F (Temporal) Resp 18 Wt 158 lb 12.8 oz SpO2 99% BMI 27.26 kg/m Smoking Status Never BSA 1.8 m Physical Exam Vitals and nursing note reviewed. Constitutional: Appearance: Normal appearance. HENT: Head: Normocephalic. Right Ear: External ear normal. Left Ear: External ear normal. Nose: Nose normal. Mouth/Throat: Mouth: Mucous membranes are moist. Pharynx: Oropharynx is clear. Eyes: Extraocular Movements: Extraocular movements intact. Conjunctiva/sclera: Conjunctivae normal. Cardiovascular: Rate and Rhythm: Normal rate and regular rhythm. Pulses: Normal pulses. Heart sounds: Murmur heard. Pulmonary: Effort: Pulmonary effort is normal. Breath sounds: Normal breath sounds. No wheezing or rhonchi. Abdominal: General: Bowel sounds are normal. Palpations: Abdomen is soft. Musculoskeletal: Cervical back: Neck supple. Right lower leg: No edema. Left lower leg: No edema. Skin: General: Skin is warm and dry. Capillary Refill: Capillary refill takes 2 to 3 seconds. Neurological: General: No focal deficit present. Mental Status: He is alert. Psychiatric: Mood and Affect: Mood normal. Behavior: Behavior normal. Thought Content: Thought content normal. Judgment: Judgment normal. ASSESSMENT AND PLAN: Follow up in about 3 months (around 03/31/2025) for Recheck. Problem List Items Addressed This Visit Type 2 diabetes mellitus without complication, without long-term current use of insulin Check blood sugars daily, notify if <70 [...] diet low in carbohydrates, and simple sugars. Current meds; januvia, glipizide A1c: 6.6% 11/26/24 Type 2 diabetes mellitus with diabetic polyneuropathy, without long-term current use of insulin ([facility]) Recommend freq foot check, comfortable shoes, as well as keeping glucose under good control Relevant Medications glucose blood (OneTouch Ultra Test) test strip Dizziness and giddiness - Primary Did see cardiology , see their notes Mitral valve regurgitation Noted on ECHO, see cardiology notes Associated Problem(s): Mitral valve regurgitation Noted on ECHO, see cardiology notes Associated Problem(s): Type 2 diabetes mellitus with diabetic polyneuropathy, without long-term current use of insulin ([facility]) Recommend freq foot check, comfortable shoes, as well as keeping glucose under good control Associated Problem(s): Dizziness and giddiness Did see cardiology , see their notes documented in this encounter [facility] 12-30-2024 Instructions Mireya Rojas NP - 12/30/2024 2:40 PM EDT No dose changes in meds Keep up the great work with diabetes Follow up with cardiology Consider going back to pain manaegment documented in this encounter [facility] 12-28-2024 History of Present illness Narrative Cardiology Consultation- New Consult Reason for referral: Cardiac auscultation requested for evaluation for dizziness and abnormal echo Chief Complaint Patient presents with New Patient Visit Mitral valve prolapse and dizziness HPI: Eitan Hurtado is a 84 y.o. male who was seen by our group back in 1999. His remote evaluation for an episode of unresponsiveness following surgery demonstrate mild mitral valve prolapse. Patient did not require any intervention. His remote stress test was negative. Patient developed diabetes over the last 15 years and recently has been describing classic symptoms of mild orthostatic hypotension. The patient admitted not to drinking enough fluid. He denies syncope. He denies any other neurologic symptoms except some mild tingling sensation in his hand and feet consistent with diabetic neuropathy. The patient previous echocardiogram showed mitral valve prolapse and his repeat echo showed moderate degree of mitral valve prolapse. The patient described intermittent episodes of shortness of breath and decreased exercise tolerance. He has not had any recent ischemic evaluation. Assessment 1. Symptoms of orthostatic hypotension likely due to diabetic autonomic neuropathy symptoms appears very mild 2. Mitral valve prolapse with moderate mitral regurgitation 3. Longstanding diabetes mellitus 4. Former smoker 5. Intermittent episode of shortness of breath and decreased exercise tolerance 6. Former smoker 7. BMI of 27 Plan 1. I reviewed his recent echo 2. I advised him to increase his fluid and salt intake and we will reassess his symptoms of orthostatic hypotension 3. I recommend proceeding with Lexiscan myocardial perfusion study in view of his symptoms of shortness of breath, inability to exercise, risk factor for ischemic heart disease and age 4. Follow-up after testing is done Past Medical History: He has no past medical history on file. Surgical History: He has a past surgical history that includes Kidney stone surgery; Vein ligation and stripping; Cholecystectomy; Laparoscopic colostomy; Colonoscopy; Colostomy closure; Skin cancer excision; Cataract extraction, bilateral; [place] tooth extraction; and Carpal tunnel release (Bilateral). Family History: Family History[1] Social History: Social History Tobacco Use Smoking status: Former Types: Cigarettes Smokeless tobacco: Never Substance Use Topics Alcohol use: Never Allergies: Codeine Current Medications: Current Outpatient Medications Medication Instructions FIBER, PSYLLIUM HUSK, ORAL 1 capsule, 4 times daily folic acid (FOLVITE) 1 mg, Daily gabapentin (NEURONTIN) 300 mg, 3 times daily glipiZIDE (GLUCOTROL) 10 mg, 2 times daily Januvia 100 mg, Daily melatonin 10 mg tablet extended release 1 capsule, Nightly methotrexate (TREXALL) 2.5 mg, Weekly multivitamin tablet 1 tablet, Daily simvastatin (ZOCOR) 40 mg, Daily RT Vitals: Vitals: 12/28/24 0926 12/28/24 0933 12/28/24 0934 BP: (!) 110/46 110/50 104/56 BP Location: Left arm Right arm Left arm Patient Position: Sitting Sitting Standing Pulse: 66 Weight: 72.6 kg (160 lb) Height: 1.626 m (5' 4 ) EKG done in office today Review of Systems Constitutional: Positive for malaise/fatigue. Cardiovascular: Positive for leg swelling. Respiratory: Positive for shortness of breath. Neurological: Positive for dizziness. All other systems reviewed and are negative. Objective Physical Exam Constitutional: Appearance: Normal appearance. HENT: Nose: Nose normal. Neck: Vascular: No carotid bruit. Cardiovascular: Rate and Rhythm: Normal rate. Pulses: Normal pulses. Heart sounds: Normal heart sounds. Pulmonary: Effort: Pulmonary effort is normal. Abdominal: General: Bowel sounds are normal. Palpations: Abdomen is soft. Musculoskeletal: General: Normal range of motion. Cervical back: Normal range of motion. Right lower leg: No edema. Left lower leg: No edema. Skin: General: Skin is warm and dry. Neurological: General: No focal deficit present. Mental Status: He is alert. Psychiatric: Mood and Affect: Mood normal. Behavior: Behavior normal. Thought Content: Thought content normal. Judgment: Judgment normal. Assessment and Plan: 1. Orthostatic hypotension 2. Mitral valve prolapse Follow Up In Cardiology 3. Shortness of breath Nuclear Stress Test 4. Dizziness ECG 12 Lead 5. BMI 27.0-27.9,adult 6. Former smoker 7. Nonrheumatic mitral valve regurgitation 8. Diabetes mellitus type II, non insulin dependent (Multi) Scribe Attestation By signing my name below, Justa Norton LPN, Scribe attest that this documentation has been prepared under the direction and in the presence of Todd Vallecillo MD. Provider Attestation - Scribe documentation All medical record entries made by the Scribe were at my direction and personally dictated by me. I have reviewed the chart and agree that the record accurately reflects my personal performance of the history, physical exam, discussion and plan. [1] Family History Problem Relation Name Age of Onset Hyperlipidemia Mother Diabetes Father Diabetes Brother documented in this encounter [facility] Work Phone: 12-28-2024 Instructions Justa River LPN - 12/28/2024 9:00 AM EDT Please bring all medicines, vitamins, and herbal supplements with you when you come to the office. Prescriptions will not be filled unless you are compliant with your follow up appointments or have a follow up appointment scheduled as per instruction of your physician. Refills should be requested at the time of your visit. Fall Prevention Education Given BMI was above normal measurement. Current weight: 72.6 kg (160 lb) Weight change since last visit (-) denotes wt loss 160 lbs Weight loss needed to achieve BMI 25: 14.7 Lbs Weight loss needed to achieve BMI 30: -14.4 Lbs Provided instructions on dietary changes Provided instructions on exercise. Patient advised to increase fluid and sodium intake. The following attachments cannot be sent through Care Everywhere.Diabetes and diet ([place]i)documented in this encounter [facility] Work Phone: 11-26-2024 History of Present illness Narrative Associated Problem(s): Dizziness and giddiness Suspect cardiac etiology Associated Problem(s): Murmur, cardiac Suspect possible cause of dizziness as well Check ECHO Yesterday fasting glucose was 116 Typically ranges around 111-130 Pt is seeing keny for diabetic education however pt states since his glucose has been doing well he may not see him as often or he may finish. Has a hernia in the left lower quad-pains Balance is off alil bit (but nothing new pt states) states he has not had any falls in the last 6 months but has fallen (maybe 1 or2) in the last 12 months Images from the original note were not included. Eitan Hurtado is a 84 y.o. male presents with chief complaint of No chief complaint on file. HPI: Yesterday fasting glucose was 116 Typically ranges around 111-130 Pt is seeing Sunny for diabetic education however pt states since his glucose has been doing well he may not see him as often or he may finish. Has a hernia in the left lower quad-pains Balance is off alil bit (but nothing new pt states) states he has not had any falls in the last 6 months but has fallen (maybe 1 or2) in the last 12 months Diabetes He presents for his follow-up diabetic visit. He has type 2 diabetes mellitus. His disease course has been stable. Hypoglycemia symptoms include dizziness. Pertinent negatives for hypoglycemia include no nervousness/anxiousness, seizures or tremors. Pertinent negatives for diabetes include no blurred vision, no chest pain, no foot paresthesias, no polydipsia, no polyphagia, no polyuria and no weakness. There are no hypoglycemic complications. Symptoms are improving. Risk factors for coronary artery disease include diabetes mellitus and male sex. Current diabetic treatment includes oral agent (dual therapy). He is following a diabetic and generally healthy diet. Meal planning includes carbohydrate counting. His overall blood glucose range is 110-130 mg/dl. An COURTNEY inhibitor/angiotensin II receptor chauncey is being taken. He does not see a technical developer.Eye exam is current. Hypertension This is a chronic problem. The current episode started more than 1 year ago. The problem is unchanged. The problem is controlled. Pertinent negatives include no blurred vision, chest pain, peripheral edema or shortness of breath. There are no associated agents to hypertension. Risk factors for coronary artery disease include diabetes mellitus, dyslipidemia and male gender. Past treatments include nothing. SUBJECTIVE: MEDICATIONS: Current Outpatient Medications Medication Instructions folic acid (Folvite) 1 MG tablet gabapentin (NEURONTIN) 300 mg, Oral, 3 times daily glipiZIDE (GLUCOTROL) 10 mg, Oral, 2 times daily before meals methotrexate 2.5 mg, Weekly OneTouch Ultra Test test strip simvastatin (ZOCOR) 40 mg, Oral, Daily SITagliptin (JANUVIA) 100 mg, Oral, Daily triamcinolone (Kenalog) 0.1 % cream ALLERGIES: Allergies Allergen Reactions Oxycodone Unknown Percocet [Oxycodone-Acetaminophen] Codeine Hallucinations and GI intolerance REVIEW OF SYMPTOMS: Review of Systems Constitutional: Negative for activity change, appetite change and unexpected weight change. HENT: Negative for ear pain, nosebleeds, sneezing, trouble swallowing and voice change. Eyes: Negative for blurred vision, pain, discharge and visual disturbance. Respiratory: Negative for apnea, chest tightness, shortness of breath and wheezing. Cardiovascular: Negative for chest pain and leg swelling. Gastrointestinal: Positive for abdominal pain. Negative for abdominal distention, blood in stool, constipation and diarrhea. Genitourinary: Negative for decreased urine volume, difficulty urinating, dysuria and hematuria. Skin: Negative for color change. Neurological: Positive for dizziness. Negative for tremors, seizures and weakness. Psychiatric/Behavioral: Negative for agitation, decreased concentration, hallucinations, self-injury and suicidal ideas. The patient is not nervous/anxious. Hematological: Negative for adenopathy. Does not bruise/bleed easily. Endocrine: Negative for cold intolerance, heat intolerance, polydipsia, polyphagia and polyuria. Allergic/Immunologic: Negative for environmental allergies and food allergies. 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) ([facility]) COPD (chronic obstructive pulmonary disease) ([facility]) Coronary atherosclerosis ([facility]) Diabetes ([facility]) Dupuytren's contracture of both hands Endolymphatic hydrops, bilateral Essential hypertension, benign ([facility]) Heart murmur History of being hospitalized 2014 small bowel obstruction History of blood clots Hx of being hospitalized 10/27/2020 Perforated Diverticulitis Hx of being hospitalized 04/07/2021 Colitis, Sepsis Hypercholesterolemia ([facility]) Hypertension (CMS/HCC) Kidney disease Left shoulder pain Leukemia (CMS/HCC) ESCL Leukocytosis Meniere disease Mitral valve disorder Nephrolithiasis Osteoarthrosis Painful diabetic neuropathy (CMS/HCC) Personal history of colonic polyps Pure hypercholesterolemia (CMS/HCC) Sleep disorder Type 2 diabetes mellitus treated without insulin (CMS/HCC) Uric acid nephrolithiasis Past Surgical History: Procedure Laterality Date APPENDECTOMY CATARACT EXTRACTION Bilateral 2014 CHOLECYSTECTOMY COLECTOMY reverse HERNIA REPAIR LITHOTRIPSY OTHER SURGICAL HISTORY Bilateral Bilat intratympanic steroid injections:Bilat endolymphatic hydrops OTHER SURGICAL HISTORY 1979 vein stripping OTHER SURGICAL HISTORY Left 2018 CT release w/decompression, left guyons canal release, left cubital tunnel release w/ant nerve transportation, left sm finger palm fasciectomy and excison of Dupuytrens contrcture family history includes Cancer in his brother; Diabetes in his father and sister; Hypertension in his mother. OBJECTIVE: Visit Vitals BP 110/60 (BP Location: Left arm, Patient Position: Sitting, BP Cuff Size: Adult long) Pulse 65 Temp 98.5 F (Temporal) Resp 18 Wt 159 lb 12.8 oz BMI 27.43 kg/m Smoking Status Never BSA 1.81 m Physical Exam Vitals and nursing note reviewed. Constitutional: Appearance: Normal appearance. He is not ill-appearing or diaphoretic. HENT: Head: Normocephalic. Right Ear: External ear normal. Left Ear: External ear normal. Nose: Nose normal. Mouth/Throat: Mouth: Mucous membranes are moist. Pharynx: Oropharynx is clear. Eyes: Extraocular Movements: Extraocular movements intact. Conjunctiva/sclera: Conjunctivae normal. Neck: Vascular: No carotid bruit. Cardiovascular: Rate and Rhythm: Normal rate and regular rhythm. Pulses: Normal pulses. Heart sounds: Murmur heard. Pulmonary: Effort: Pulmonary effort is normal. Breath sounds: Normal breath sounds. No wheezing or rhonchi. Abdominal: General: Bowel sounds are normal. Palpations: Abdomen is soft. Tenderness: There is abdominal tenderness. Hernia: A hernia (reducible, tender, X2) is present. Musculoskeletal: Cervical back: Neck supple. Right lower leg: No edema. Left lower leg: No edema. Lymphadenopathy: Cervical: No cervical adenopathy. Skin: General: Skin is warm and dry. Capillary Refill: Capillary refill takes 2 to 3 seconds. Neurological: General: No focal deficit present. Mental Status: He is alert. Psychiatric: Mood and Affect: Mood normal. Behavior: Behavior normal. Thought Content: Thought content normal. Judgment: Judgment normal. ASSESSMENT AND PLAN: No follow-ups on file. Problem List Items Addressed This Visit Type 2 diabetes mellitus without complication, 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) Check blood sugars daily, notify if <70 [...] diet low in carbohydrates, and simple sugars. Current meds; januvia, glipizide A1c: 6.6% Essential hypertension (Chronic) No current meds, recommend low salt diet, weight loss, 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 Relevant Orders Microalbumin / creatinine, urine ratio Urinalysis with reflex microscopic (clean catch) Basic metabolic panel Chronic lymphocytic leukemia (CMS/HCC) Continue with hematology RESOLVED: Benign essential hypertension (CMS/HCC) Type 2 diabetes mellitus with diabetic polyneuropathy, 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) - Primary Recommend freq foot check, comfortable shoes, as well as keeping glucose under good control Relevant Orders POCT glycosylated hemoglobin (Hb A1C) docked device (Completed) Microalbumin / creatinine, urine ratio Urinalysis with reflex microscopic (clean catch) Basic metabolic panel Chronic obstructive pulmonary disease, unspecified (CMS/HCC) Hypercholesterolemia (CMS/HCC) No statin Check lipids Relevant Orders Hepatic function panel Lipid panel Murmur, cardiac Suspect possible cause of dizziness as well Check ECHO Dizziness and giddiness Suspect cardiac etiology Associated Problem(s): Chronic lymphocytic leukemia (CMS/HCC) Continue with hematology Associated Problem(s): Hypercholesterolemia (CMS/HCC) No statin Check lipids Associated Problem(s): Type 2 diabetes mellitus without complication, without long-term current use of insulin ([facility]) Check blood sugars daily, notify if <70 [...] diet low in carbohydrates, and simple sugars. 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 Associated Problem(s): Type 2 diabetes mellitus with diabetic polyneuropathy, without long-term current use of insulin ([facility]) Recommend freq foot check, comfortable shoes, as well as keeping glucose under good control documented in this encounter [facility] 11-26-2024 Instructions Mireya Rojas NP - 11/26/2024 2:00 PM EDT Labs; fasting 8 hours you can do this at the hospital, or [facility] lab [place] [facility]: [facility] and they will call you documented in this encounter [facility] 09-07-2024 Telephone encounter Note Patient said he was told to take 3 pills a day instead of 2 and now he is out. STAN [facility] 09-07-2024 Miscellaneous Notes Patient said he was told to take 3 pills a day instead of 2 and now he is out. STAN documented in this encounter [facility] 08-18-2024 History of Present illness Narrative Images from the original note were not included. Subjective : Chief Complaint: Eitan Hurtado is an 84 y.o. male here for an annual wellness visit. I have reviewed and reconciled the history and medication list with the patient today. Current Outpatient Medications Medication Sig Dispense Refill folic acid (Folvite) 1 MG tablet gabapentin (Neurontin) 300 MG capsule Take 1 capsule (300 mg) by mouth in the morning and 1 capsule (300 mg) in the evening and 1 capsule (300 mg) before bedtime. 180 capsule 1 glipiZIDE (Glucotrol) 10 MG tablet Take 1 tablet (10 mg) by mouth in the morning and 1 tablet (10 mg) in the evening. Take before meals. 180 tablet 0 methotrexate 2.5 MG tablet Take 2.5 mg by mouth 1 (one) time per week. simvastatin (Zocor) 40 MG tablet Take 1 tablet (40 mg) by mouth Daily 90 tablet 1 SITagliptin (Januvia) 100 MG tablet Take 1 tablet (100 mg) by mouth Daily 90 tablet 1 OneTouch Ultra Test test strip No current facility-administered medications for this visit. Review of Systems List of current healthcare providers: Patient Care Team: Low Beyer MD as PCP - General (Family Medicine) Shaikh Holly MD as PCP - Devoted Leander Chanel NP as Nurse Practitioner (Family Medicine) Rosa Nguyen MA (Family Medicine) Medicare Annual Visit Over the past 2 weeks, how often have you been bothered by any of the following problems? Little interest or pleasure in doing things: Not at all Feeling down, depressed, or hopeless: Not at all Patient Health Questionnaire-2 Score: 0 Over the past 2 weeks, how often have you been bothered by any of the following problems? Trouble falling or staying asleep, or sleeping too much: Not at all Feeling tired or having little energy: Not at all Poor appetite or overeating: Not at all Feeling bad about yourself - or that you are a failure or have let yourself or your family down: Not at all Trouble concentrating on things, such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 2 diabetes mellitus without complication, without long-term current use of insulin- Primary Dizziness and giddiness Type 2 diabetes mellitus with diabetic polyneuropathy, 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) Nonrheumatic mitral valve regurgitation documented in this encounter [facility] Healthcare[facility] note* Diagnosis Rash- Primary Rash and [...] without complication, without long-term current use of insulin- Primary Type 2 diabetes mellitus with diabetic polyneuropathy, 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) Benign essential hypertension (CMS/HCC) Essential hypertension, benign Essential hypertension Unspecified essential hypertension Hypercholesterolemia (CMS/HCC) Pure hypercholesterolemia Chronic lymphocytic leukemia (CMS/HCC) Chronic lymphoid leukemia, without mention of having achieved remission Chronic obstructive pulmonary disease, unspecified Murmur, cardiac Undiagnosed cardiac murmurs Dizziness and giddiness Type 2 diabetes mellitus without complication, without long-term current use of insulin- Primary Dizziness and giddiness Type 2 diabetes mellitus with diabetic polyneuropathy, 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) Nonrheumatic mitral valve regurgitation 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) Type 2 diabetes mellitus without complication, without long-term current use of insulin Hypercholesterolemia (CMS/HCC) Pure hypercholesterolemia Type 2 diabetes mellitus with diabetic polyneuropathy, 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) documented in this encounter [facility] HealthcareEvaluation note* Diagnosis Shortness of breath- Primary Mitral valve prolapse Mitral valve disorders Dizziness Dizziness and giddiness Orthostatic hypotension Nonrheumatic mitral valve regurgitation Diabetes mellitus type II, non insulin dependent (Multi) Type II or unspecified type diabetes mellitus without mention of complication, not stated as uncontrolled BMI 27.0-27.9,adult Former smoker Personal history of tobacco use, presenting hazards to health documented in this encounter [facility] Work Phone: Evaluation note* Diagnosis Rash- Primary Rash and other nonspecific skin eruption 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)- Primary Benign essential hypertension Essential hypertension, benign Chronic lymphocytic leukemia (HCC) Chronic lymphoid leukemia, without mention of having achieved remission Encounter for Medicare annual wellness exam Generalized rash Type 2 diabetes mellitus with diabetic polyneuropathy, without long-term current use of insulin (HCC) COVID-19- Primary Type 2 diabetes mellitus with diabetic polyneuropathy, without long-term current use of insulin (HCC) 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- Primary Type 2 diabetes mellitus with diabetic polyneuropathy, without long-term current use of insulin (HCC)- Primary 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 Hypercholesterolemia Pure hypercholesterolemia Left lower quadrant pain- Primary Abdominal pain, left lower quadrant Incisional hernia, 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, without long-term current use of insulin (HCC)- Primary Benign essential hypertension Essential hypertension, benign Trigger middle finger of right hand Type 2 diabetes mellitus with diabetic polyneuropathy, without long-term current use of insulin (HCC)- Primary 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) Essential hypertension Unspecified essential hypertension Atherosclerosis of aorta Type 2 diabetes mellitus without complication, without long-term current use of insulin (HCC)- Primary Type 2 diabetes mellitus with diabetic polyneuropathy, without long-term current use of insulin (HCC) Benign essential hypertension Essential hypertension, benign Essential hypertension Unspecified essential hypertension Hypercholesterolemia Pure hypercholesterolemia Chronic lymphocytic leukemia (HCC) Chronic lymphoid leukemia, without mention of having achieved remission Chronic obstructive pulmonary disease, unspecified (HCC) Murmur, cardiac Undiagnosed cardiac murmurs Dizziness and giddiness Type 2 diabetes mellitus without complication, without long-term current use of insulin (HCC)- Primary Dizziness and giddiness Type 2 diabetes mellitus with diabetic polyneuropathy, without long-term current use of insulin (HCC) Nonrheumatic mitral valve regurgitation Type 2 diabetes mellitus with diabetic polyneuropathy, without long-term current use of insulin (HCC)- Primary Benign essential hypertension Essential hypertension, benign documented in this encounter [facility] HealthcareEvaluation note* Diagnosis Rash- Primary Rash and other nonspecific skin eruption 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)- Primary Benign essential hypertension Essential hypertension, benign Chronic lymphocytic leukemia (HCC) Chronic lymphoid leukemia, without mention of having achieved remission Encounter for Medicare annual wellness exam Generalized rash Type 2 diabetes mellitus with diabetic polyneuropathy, without long-term current use of insulin (HCC) COVID-19- Primary Type 2 diabetes mellitus with diabetic polyneuropathy, without long-term current use of insulin (HCC) 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- Primary Type 2 diabetes mellitus with diabetic polyneuropathy, without long-term current use of insulin (HCC)- Primary 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 Hypercholesterolemia Pure hypercholesterolemia Left lower quadrant pain- Primary Abdominal pain, left lower quadrant Incisional hernia, 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, without long-term current use of insulin (HCC)- Primary Benign essential hypertension Essential hypertension, benign Trigger middle finger of right hand Type 2 diabetes mellitus with diabetic polyneuropathy, without long-term current use of insulin (HCC)- Primary 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) Essential hypertension Unspecified essential hypertension Atherosclerosis of aorta Type 2 diabetes mellitus without complication, without long-term current use of insulin (HCC)- Primary Type 2 diabetes mellitus with diabetic polyneuropathy, without long-term current use of insulin (HCC) Benign essential hypertension Essential hypertension, benign Essential hypertension Unspecified essential hypertension Hypercholesterolemia Pure hypercholesterolemia Chronic lymphocytic leukemia (HCC) Chronic lymphoid leukemia, without mention of having achieved remission Chronic obstructive pulmonary disease, unspecified (HCC) Murmur, cardiac Undiagnosed cardiac murmurs Dizziness and giddiness Type 2 diabetes mellitus without complication, without long-term current use of insulin (HCC)- Primary Dizziness and giddiness Type 2 diabetes mellitus with diabetic polyneuropathy, without long-term current use of insulin (HCC) Nonrheumatic mitral valve regurgitation Type 2 diabetes mellitus without complication, without long-term current use of insulin (HCC)- Primary Type 2 diabetes mellitus with diabetic polyneuropathy, without long-term current use of insulin (HCC) Essential hypertension Unspecified essential hypertension 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) MVP (mitral valve prolapse) Mitral valve disorders Dizziness and giddiness Generalized abdominal pain Abdominal pain, generalized [facility] Narrative - Reported* Type Description Date Medical History diabetes Medical History hypertension Medical History hypercholesterolemia Medical History Vertigo Medical History COPD Medical History Stoma Reversal Surgical History Gallbladder Surgical History Kidney Stones Surgical History Appendix Surgical History Hernia Repair Surgical History Tonsils Surgical History Left Carpal/Cubital/[place] Releas Surgical History Stoma Reversal Hospitalization History See above [employer] Other History general Narrative - Reported* Type [...] AND BOTH LEGS Hospitalization History See above [employer] Other Reason for referral (narrative)* Diagnostic Procedure Only (Routine) - Authorized Specialty Diagnoses / Procedures Referred By Contac t Referred To Contact XR IMAGING Diagnoses Pain Procedures XR HAND GENERAL 3V PA/LAT/OBL RIGHT RADEX HAND MINIMUM 3 VIEWS Joshua Su PA-C [address] [place] [address] Xr Imaging Referral ID Status Reason Start Date Expiration Date Visits Requested Visits Authorized [id number] Authorized Auto-Generat ed Referral 12/03/2022 01/02/2024 1 1 * Diagnostic Procedure Only (Routine) - Pending Review Specialty Diagnoses / Procedures Referred By Yuan t Referred To Contact XR IMAGING Diagnoses Pain Procedures XR HAND GENERAL 3V PA/LAT/OBL LEFT RADEX HAND MINIMUM 3 VIEWS Joshua Su PA-C [address] [place] [address] Xr Imaging Referral ID Status Reason Start Date Expiration Date Visits Requested Visits Authorized [id number] Pending Review Auto-Generat ed Referral 12/03/2022 01/02/2024 1 1 [facility] Summary Purpose Family History No Family [...] and content) DATE CREATED AUTHOR 10/12/2021 [facility] DATE CREATED AUTHOR AUTHOR'S ORGANIZ ATION 06/02/2022 [facility] DATE CREATED AUTHOR AUTHOR'S ORGANIZ ATION 08/04/2022 [facility] DATE CREATED AUTHOR AUTHOR'S ORGANIZ ATION 08/13/2024 [facility] DATE CREATED AUTHOR AUTHOR'S ORGANIZ ATION 01/28/[address] [facility] DATE CREATED AUTHOR AUTHOR'S ORGANIZ ATION 02/13/2025 [facility] DATE CREATED AUTHOR AUTHOR'S ORGANIZ ATION 04/02/2025 [facility] EPIC Source Comments (unrecognize d section and content) In the event this informatio n is protected by the Federal Confidentiality of Alcohol and Drug Abuse Patient Records regulations: The Federal rules restrict any use of the information to criminally investigate or prosecute any alcohol or drug abuse patient.[facility] the event this information is protected by the Federal Confidentiality of Alcohol and Drug Abuse Patient Records regulations: The Federal rules restrict any use of the information to criminally investigate or prosecute any alcohol or drug abuse patient.[facility] the event this information is protected by the Federal Confidentiality of Alcohol and Drug Abuse Patient Records regulations: The Federal rules restrict any use of the information to criminally investigate or prosecute any alcohol or drug abuse patient.[facility] the event this information is protected by the Federal Confidentiality of Alcohol and Drug Abuse Patient Records regulations: The Federal rules restrict any use of the information to criminally investigate or prosecute any alcohol or drug abuse patient.[facility] Reason for Visit (unrecogniz ed section and content) Reason Comments Leukemia Reason Onset Date Comments Med Refill 06/22/2024 Reason Comments Diabetes Reason Onset Date Comments Med Refill 07/22/2024 Reason Onset Date Comments Med Refill 08/03/2024 Reason Onset Date Comments Med Refill 04/30/2024 Reason Onset Date Comments Med Refill 09/07/2024 Reason Comments New Patient Visit Mitral valve prolaps e and dizziness Specialty Diagnoses / Procedures Referred By Yuan hollingsworth Referred To Contact Diagnoses Dizziness Procedures ECG 12 Lead [facility], [place] [id number] Phone: tel: fax: Referral ID Status Reason Start Date Expiration Date V isits Requested Visits Authorized [id number] Authorized 12/28/2024 12/28/2025 1 1 Reason Comments Follow-up Follow up Stress res ults Specialty Diagnoses / Procedures Referred By Yuan hollingsworth Referred To Contact Cardiology Diagnoses Mitral valve prolapse Procedures Follow Up In Cardiology Todd Vallecillo MD [address] [facility], [address] [address] Phone: tel: fax: Todd Vallecillo MD [address] [facility] [address], [address] [address] Phone: tel: fax: Referral ID Status Reason Start Date Expiration Date V isits Requested Visits Authorized [id number] Authorized 12/28/2024 12/28/2025 1 1 Care Teams (unrecognized sec tion and content) Research Hydrologist Relationship Specialty Start Date End Date Rodríguez Wheat II PCP - General Internal Medicine 05/06/13 Team Status: Inactive Member Role Status Dates Shaikh Holly MD Primary Care Provider, Attending Sandeep keller Active Team Status: Active Member Role Status Dates Shaikh Holly MD Primary Care Provider Active Research Hydrologist Relationship Specialty Start Date End Date Rodríguez Wheat II PCP - General Internal Medicine 05/06/13 Research Hydrologist Relationship Specialty Start Date End Date Rodríguez Wheat II, MD PCP - General Internal Medicine 05/06/13 Research Hydrologist Relationship Specialty Start Date End Date Shaikh Barrera MD [address] [place] [address] PCP - Devoted 09/02/23 Low Beyer MD [address] [place] [address] PCP - General Family Medicine 04/07/24 Leander Chanel NP [address] [place] [address] Nurse Practitioner Family Medicine 04/07/24 Brandi Willett LPN Licensed Practical Nurse Family Medicine 05/15/24 Research Hydrologist Relationship Specialty Start Date End Date Shaikh Barrera MD [address] [place] [address] PCP - Devoted 09/02/23 Low Beyer MD [address] [place] [address] PCP - General Family Medicine 04/07/24 Leander Chanel NP [address] [place] [address] Nurse Practitioner Family Medicine 04/07/24 Brandi Willett LPN Licensed Practical Nurse Family Medicine 05/15/24 Research Hydrologist Relationship Specialty Start Date End Date Shaikh Barrera MD [address] [place] [address] PCP - Devoted 09/02/23 Low Beyer MD [address] [place] [address] PCP - General Family Medicine 04/07/24 Leander Chanel NP [address] [place] [address] Nurse Practitioner Family Medicine 04/07/24 Brandi Willett LPN Licensed Practical Nurse Family Medicine 05/15/24 Research Hydrologist Relationship Specialty Start Date End Date Shaikh Barrera MD [address] [place] [address] PCP - Devoted 09/02/23 Low Beyer MD [address] [place] [address] PCP - General Family Medicine 04/07/24 Leander Chanel NP [address] [place] [address] Nurse Practitioner Family Medicine 04/07/24 Brandi Willett LPN Licensed Practical Nurse Family Medicine 05/15/24 Research Hydrologist Relationship Specialty Start Date End Date Shaikh Barrera MD [address] [place] [address] PCP - Devoted 09/02/23 09/01/24 Low Beyer MD [address] [place] [address] PCP - General Family Medicine 04/07/24 Leander Chanel NP [address] [place] [address] Nurse Practitioner Family Medicine 04/07/24 Rosa Nguyen MA Family Medicine 07/06/24 Research Hydrologist Relationship Specialty Start Date End Date Shaikh Barrera MD [address] [place] [address] PCP - Devoted 09/02/23 09/01/24 Low Beyer MD [address] [place] [address] PCP - General Family Medicine 04/07/24 Leander Chanel NP [address] [place] [address] Nurse Practitioner Family Medicine 04/07/24 Rosa Nguyen MA [facility] Medicine 07/06/24 Research Hydrologist Relationship Specialty Start Date End Date Shaikh Barrera MD [address] [place] [address] PCP - Devoted 09/02/23 09/01/24 Low Beyer MD [address] [place] [address] PCP - General Family Medicine 04/07/24 Leander Chanel NP [address] [place] [address] Nurse Practitioner Family Medicine 04/07/24 Rosa Nguyen MA Family Medicine 07/06/24 Research Hydrologist Relationship Specialty Start Date End Date Shaikh Barrera MD [address] [place] [address] PCP - Devoted 09/02/23 09/01/24 Low Beyer MD [address] [place] [address] PCP - General Family Medicine 04/07/24 Leander Chanel NP [address] [place] [address] Nurse Practitioner Family Medicine 04/07/24 Rosa Nguyen MA Family Medicine 07/06/24 Research Hydrologist Relationship Specialty Start Date End Date Shaikh Barrera MD [address] [place] [address] PCP - General Primary Care 08/06/24 Research Hydrologist Relationship Specialty Start Date End Date Shaikh Barrera MD [address] [place] [address] PCP - Devoted 09/02/23 09/01/24 Low Beyer MD [address] [place] [address] PCP - General Family Medicine 04/07/24 Leander Chanel, KHUSHI [address] [place] [address] Nurse Practitioner Family Medicine 04/07/24 Rosa Nguyen MA Family Medicine 07/06/24 Research Hydrologist Relationship Specialty Start Date End Date Shaikh Barrera MD [address] [place] [address] PCP - Devoted 09/02/23 Low Beyer MD [address] [place] [address] PCP - General Family Medicine 04/07/24 Dang Rios LPN Licensed Practical Nurse Family Medicine 01/02/24 Leander Chanel, KHUSHI [address] [place] [address] Nurse Practitioner Family Medicine 04/07/24 Research Hydrologist Relationship Specialty Start Date End Date Shaikh Barrera MD [address] [place] [address] PCP - Devoted 09/02/23 Low Beyer MD [address] [place] [address] PCP - General Family Medicine 04/07/24 Dang Rios LPN Licensed Practical Nurse Family Medicine 01/02/24 Leander Chanel NP [address] [place] [address] Nurse Practitioner Family Medicine 04/07/24 Research Hydrologist Relationship Specialty Start Date End Date Low Beyer MD [address] [place] [address] PCP - General Family Medicine 04/07/24 Leander Chanel NP [address] [place] [address] Nurse Practitioner Family Medicine 04/07/24 Rosa Nguyen MA Family Medicine 07/06/24 Research Hydrologist Relationship Specialty Start Date End Date Low Beyer MD [address] [place] [address] PCP - General Family Medicine 04/07/24 Leander Chanel NP [address] [place] [address] Nurse Practitioner Family Medicine 04/07/24 Rosa Nguyen MA Family Medicine 07/06/24 Research Hydrologist Relationship Specialty Start Date End Date Low Beyer MD [address] [place] [address] PCP - General Family Medicine 04/07/24 Leander Chanel NP [address] [place] [address] Nurse Practitioner Family Medicine 04/07/24 Rosa Nguyen MA Family Medicine 07/06/24 Research Hydrologist Relationship Specialty Start Date End Date Low Beyer MD [address] [place] [address] PCP - General Family Medicine 04/07/24 Leander Chanel, KHUSHI [address] [place] [address] Nurse Practitioner Family Medicine 04/07/24 Rosa Nguyen MA Family Medicine 07/06/24 Research Hydrologist Relationship Specialty Start Date End Date Low Beyer MD [address] [place] [address] PCP - General Family Medicine 04/07/24 Leander Chanel, KHUSHI [address] [place] [address] Nurse Practitioner Family Medicine 04/07/24 Rosa Nguyen MA Family Medicine 07/06/24 Research Hydrologist Relationship Specialty Start Date End Date Low Beyer MD [address] [place] [address] PCP - General Family Medicine 04/07/24 Leander Chanel, KHUSHI [address] [place] [address] Nurse Practitioner Family Medicine 04/07/24 Rosa Nguyen MA Family Medicine 07/06/24 Research Hydrologist Relationship Specialty Start Date End Date Low Beyer MD [address] [place] [address] PCP - General Family Medicine 04/07/24 Leander Chanel NP [address] [place] [address] Nurse Practitioner Family Medicine 04/07/24 Rosa Nguyen MA Family Medicine 07/06/24 Research Hydrologist Relationship Specialty Start Date End Date Mireya Rojas, ENVIRONMENTAL PROTECTION INSPECTOR-[employer]PER [address] [place] [address] PCP - General 12/17/24 Research Hydrologist Relationship Specialty Start Date End Date Low Beyer MD [address] [place] [address] PCP - General Family Medicine 04/07/24 Leander Chanel NP [address] [place] [address] Nurse Practitioner Family Medicine 04/07/24 Rosa Nguyen MA Family Medicine 07/06/24 Research Hydrologist Relationship Specialty Start Date End Date Low Beyer MD [address] [place] [address] PCP - General Family Medicine 04/07/24 Leander Chanel NP [address] [place] [address] Nurse Practitioner Family Medicine 04/07/24 Rosa Nguyen MA Family Medicine 07/06/24 Research Hydrologist Relationship Specialty Start Date End Date Low Beyer MD [address] [place] [address] PCP - General Family Medicine 04/07/24 Leander Chanel NP [address] [place] [address] Nurse Practitioner Family Medicine 04/07/24 Rosa Nguyen MA Family Medicine 07/06/24 Research Hydrologist Relationship Specialty Start Date End Date Low Beyer MD [address] [place] [address] PCP - General Family Medicine 04/07/24 Leander Chanel NP [address] [place] [address] Nurse Practitioner Family Medicine 04/07/24 Rosa Nguyen MA Family Medicine 07/06/24 Research Hydrologist Relationship Specialty Start Date End Date Mireya Rojas, ENVIRONMENTAL PROTECTION INSPECTOR-[facility] [address] [place] [address] PCP - General 12/17/24 Research Hydrologist Relationship Specialty Start Date End Date Low Beyer MD [address] [place] [address] PCP - General Family Medicine 04/07/24 Leander Chanel NP [address] [place] [address] Nurse Practitioner Family Medicine 04/07/[address] [place] [address] Family Medicine 07/06/24 Research Hydrologist Relationship Specialty Start Date End Date Low Beyer MD [address] [place] [address] PCP - General Family Medicine 04/07/24 Leander Chanel NP [address] [place] [address] Nurse Practitioner Family Medicine 04/07/24 Rosa Nguyen MA [address] [place] [address] Family Medicine 07/06/24 Research Hydrologist Relationship Specialty Start Date End Date Low Beyer MD [address] [place] [address] PCP - General Family Medicine 04/07/24 Leander Chanel NP [address] [place] [address] Nurse Practitioner Family Medicine 04/07/24 Rosa Nguyen MA [address] [place] [address] Family Medicine 07/06/24 Research Hydrologist Relationship Specialty Start Date End Date Low Beyer MD [address] [place] [address] PCP - General Family Medicine 04/07/24 Leander Chanel NP [address] [place] [address] Nurse Practitioner Family Medicine 04/07/24 Rosa Nguyen MA [address] [place] [address] Family Medicine 07/06/24 Research Hydrologist Relationship Specialty Start Date End Date Low Beyer MD [address] [place] [address] PCP - General Family Medicine 04/07/24 Leander Chanel NP [address] [place] [address] Nurse Practitioner [facility] Medicine 04/07/24 Rosa Nguyen, CT [address] [place] [address] Family [facility] 07/06/24 Goals (unrecognized section and content) [...] BE BASED ON THE PRIMARY CLINICAL RECORDS. [employer] [facility]. provides no warranty or guarantee of the accuracy or completeness of information in this document.
--- NOTE | 2025-05-15 22:27 | ED.BACK1 ---
HPI HPI - Back Pain/Injury General Chief Complaint: Back Pain/Injury Stated Complaint: BACK PAIN Time Seen by Provider: 05/15/25 22:20 Source: patient Mode of arrival: ambulance Limitations: no limitations History of Present Illness HPI Narrative: presents complaining of left buttocks and left leg pain. States pain increased tonight. He was trying to get into bed when he fell to the ground. Did not hit his head. Has chronic neck pain. Main complaint is pain left buttocks and leg. Pain radiates toward the left knee. No leg weakness. No nausea or fever. No loss of control of bowel or bladder Related Data Home Medications ?Medication ?Instructions ?Recorded ?Confirmed gabapentin 300 mg capsule 300 mg PO Q12H 10/24/23 02/21/24 methotrexate sodium 2.5 mg tablet 2.5 mg PO .weekly 10/24/23 02/21/24 sitagliptin phosphate 100 mg 100 mg PO DAILY 10/24/23 02/21/24 tablet (Januvia) baclofen 5 mg tablet 5 mg PO TID 12/03/23 02/21/24 glipizide 10 mg tablet 10 mg PO DAILY 12/03/23 02/21/24 multivitamin-ferrous 1 tab PO DAILY 12/03/23 02/21/24 fumarate-folic acid 18 mg-400 mcg tablet (Centrum Complete) simvastatin 40 mg tablet 40 mg PO DAILY 12/03/23 02/21/24 folic acid 1 mg tablet 1 mg PO DAILY 02/21/24 02/21/24 melatonin 10 mg capsule 10 mg PO DAILY 02/21/24 02/21/24 methotrexate sodium 2.5 mg tablet 2.5 mg PO QWEEK 02/21/24 02/21/24 Previous Rx's ?Medication ?Instructions ?Recorded nirmatrelvir 300 mg (150 mg See Rx Instructions PO .COMPLEX 10/24/23 x2)-ritonavir 100 mg tablet,dose #30 ea pack (Paxlovid) Allergies Allergy/AdvReac Type Severity Reaction Status Date / Time codeine AdvReac Intermediate hallucinati Verified 05/15/25 21:53 ons morphine AdvReac Intermediate hallucinati Verified 05/15/25 21:53 ons Opioid HPI Opioid Management Most Recent Opioid Data: Last Pain Scale 10 Today, 00:43 Last MAR Pain Assessment Today, 00:43 Review of Systems ROS Status of ROS 10 or more systems reviewed and unremarkable except as noted in history and below [facility] Medical History (Updated 05/16/25 @ 02:36 by Alyse Mendez) CLL (chronic lymphocytic leukemia) ?C91.10 - Chronic lymphocytic leukemia of B-cell type not having achieved remission (ICD-10) Social History Smoking status: Never smoker Little interest or pleasure in doing things: not at all Feeling down, depressed, or hopeless: not at all Exam Constitutional Vital Signs, click to edit/add: Last Vital Signs Temp 97.8 F 05/15/25 21:46 Pulse 71 05/16/25 01:35 Resp 16 05/16/25 01:35 BP 124/85 05/16/25 01:35 Pulse Ox 97 05/16/25 01:35 O2 Del Method Room Air 05/16/25 01:35 Common normals: no apparent distress, average body habitus, oriented x3, no limitations, healthy appearing, alert and well nourished [facility] Common normals: normocephalic Eye Common normals: EOMs intact bilaterally and conjunctivae normal Respiratory Common normals: normal respiratory effort, no retractions, no use of accessory muscles and clear to auscultation bilaterally Cardio Common normals: regular rate, regular rhythm, S1 normal heart sound and S2 normal heart sound Back & Pelvis Other: left SI tenderness that reproduces symptoms Extremity Common normals: normal to inspection Neuro Common normals: oriented x3, CN's II-XII intact bilaterally and moves all extremities Psych Appearance: grossly normal Course Vital Signs Vital signs: Vital Signs Temperature 97.8 F 05/15/25 21:46 Pulse Rate 89 05/15/25 21:46 Respiratory Rate 18 05/15/25 21:46 Blood Pressure 127/75 05/15/25 21:46 Pulse Oximetry 99 05/15/25 21:46 Oxygen Delivery Method Room Air 05/15/25 21:46 Temperature 97.8 F 05/15/25 21:46 Pulse Rate 71 05/16/25 01:35 Respiratory Rate 16 05/16/25 01:35 Blood Pressure 124/85 05/16/25 01:35 Pulse Oximetry 97 05/16/25 01:35 Oxygen Delivery Method Room Air 05/16/25 01:35 MDM - Back Pain/Injury MDM Narrative Medical decision making narrative: patient presents with acute sciatica pain. CT with findings of bulging disc and spinal stenosis as well as facet hypertrophic changes. Patient medicated with combination of toradol, solumedrol and magnesium. He is re evluated and is feeling better. Able to stand at the side of the bed. Will have nursing see if he is able to ambulate with a walker patient able to ambulate with the walker and did so with steady gait. Labs also demonstrate CLL. family is aware of this diagnosis Lab Data Labs: Lab Results 05/15/25 05/16/25 Range/Units 23:55 00:15 WBC 22.3 H (4.0-11.0) 10^3/uL RBC 3.49 L (4.70-6.10) 10^6/uL Hgb 12.0 L (14.0-18.0) g/dL Hct 34.9 L (42.0-54.0) % MCV 100.0 H (80.0-94.0) fL MCH 34.4 H (25.9-34.0) pg MCHC 34.4 (29.9-35.2) g/dL RDW 14.5 (11.0-15.0) % Plt Count 118 L (150-450) 10^3/uL MPV 12.1 (9.5-13.5) fL Neut % (Auto) Not Reportable Lymph % (Auto) Not Reportable Stone % (Auto) Not Reportable Eos % (Auto) Not Reportable Baso % (Auto) Not Reportable Neut # (Auto) Not Reportable Lymph # (Auto) Not Reportable Stone # (Auto) Not Reportable Eos # (Auto) Not Reportable Baso # (Auto) Not Reportable Abs Immat Gran (auto) Not Reportable Seg Neuts % (Manual) 34.0 L (43.0-75.0) Lymphocytes % (Manual) 64.0 H (20.5-60.0) % Monocytes % (Manual) 2.0 (1.7-12.0) % Eosinophils % (Manual) 0.0 L (0.9-7.0) % Basophils % (Manual) 0.0 L (0.2-2.0) % Imm/Tot Granulo (auto) Not Reportable Neutrophils # (Manual) 7.58 H (1.4-6.5) 10^3/uL Lymphocytes # (Manual) 14.27 H (1.20-3.80) 10^3/uL Monocytes # (Manual) 0.44 (0.30-0.80) 10^3/uL Eosinophils # (Manual) 0.00 (0.00-0.70) 10^3/uL Basophils # (Manual) 0.00 (0.00-0.10) 10^3/uL Smudge Cells Seen ESR 2 (<=20) mm/hr Sodium 143 (136-145) mmol/L Potassium 3.7 (3.5-5.1) mmol/L Chloride 108 H (98-107) mmol/L Carbon Dioxide 25.6 (21.0-32.0) mmol/L Anion Gap 13.1 BUN 14.0 (7.0-18.0) mg/dL Creatinine 0.94 (0.70-1.30) mg/dL Est GFR ( Amer) >60 (>=60 mL/min/1.73m^2) Est GFR (Non-Af Amer) >60 (>=60 mL/min/1.73m^2) BUN/Creatinine Ratio 14.9 Glucose 163 H (74-106) mg/dL Calcium 8.6 (8.5-10.1) mg/dL C-Reactive Protein <0.50 (<=0.50) mg/dL Urine Color Yellow (YELLOW) Urine Clarity Slightly cloudy A (CLEAR) Urine pH 6.0 (5.0-9.0) Ur Specific [place] 1.015 (1.005-1.025) Urine Protein Negative (NEG/TRACE) mg/dL Urine Glucose (UA) Negative (NEGATIVE) mg/dL Urine Ketones Negative (NEGATIVE) mg/dL Urine Occult Blood Negative (NEGATIVE) Urine Nitrite Negative (NEGATIVE) Urine Bilirubin Negative (NEGATIVE) Urine Urobilinogen 1.0 (0.2-1.0) EU/dL Ur Leukocyte Esterase Negative (NEGATIVE) Discharge Plan Discharge Chief Complaint: Back Pain/Injury Clinical Impression: Acute left-sided back pain with sciatica Patient Disposition: Home, Self-Care Prescriptions / Home Meds: No Action gabapentin 300 mg capsule 300 mg PO Q12H methotrexate sodium 2.5 mg tablet 2.5 mg PO .weekly Sepuvia 100 mg tablet 100 mg PO DAILY Paxlovid 300 mg (150 mg x 2)-100 mg tablets,dose pack See Rx Instructions .ROUTE .COMPLEX Qty: 30 0RF Rx Instructions: take TWO 150 mg tablets of nirmatrelvir with ONE 100 mg tablet of ritonavir twice daily for 5 days Centrum Complete 18-400 mg-mcg tablet 1 tab PO DAILY glipizide 10 mg tablet 10 mg PO DAILY simvastatin 40 mg tablet 40 mg PO DAILY baclofen 5 mg tablet 5 mg PO TID folic acid 1 mg tablet 1 mg PO DAILY methotrexate sodium 2.5 mg tablet 2.5 mg PO QWEEK melatonin 10 mg capsule 10 mg PO DAILY Print Language: Serbian Instructions: Acute Low Back Pain (ED) Additional Instructions: follow up with your doctor next week to arrange PT Referrals: LEANDER MALLORY [Primary Care Provider] - 1 week
[2025-05-15] MEDS: METHYLPREDNISOLONE SOD SUCC PF 125 MG/2 ML VIAL IVP (22:55)
[2025-05-15] MEDS: MAGNESIUM SULFATE IN WATER 2 GM/50 ML PREMIX IV (22:55)
[2025-05-15] MEDS: ORPHENADRINE 60 MG/2 ML VIAL IV (22:55)
[2025-05-16 00:11] LABS: Hematocrit 34.9 % (42.0-54.0); Hemoglobin 12.0 g/dL (14.0-18.0); Mean Corpuscular HGB Conc 34.4 g/dL (29.9-35.2); Mean Corpuscular Hemoglobin 34.4 pg (25.9-34.0); Mean Corpuscular Volume 100.0 fL (80.0-94.0); Platelet Count 118 10^3/uL (150-450); Red Blood Count 3.49 10^6/uL (4.70-6.10); White Blood Count 22.3 10^3/uL (4.0-11.0)
[2025-05-16 00:27] LABS: Anion Gap 13.1; Blood Urea Nitrogen 14.0 mg/dL (7.0-18.0); Calcium 8.6 mg/dL (8.5-10.1); Carbon Dioxide 25.6 mmol/L (21.0-32.0); Chloride 108 mmol/L (98-107); Estimated GFR (African America >60 (>=60 mL/min/1.73m^2); Estimated GFR (Non-African Ame >60 (>=60 mL/min/1.73m^2); Glucose 163 mg/dL (74-106); Potassium 3.7 mmol/L (3.5-5.1); Sodium 143 mmol/L (136-145)
[2025-05-16] MEDS: KETOROLAC TROMETHAMINE 30 MG/ML VIAL 15 MG IVP (00:43)
[2025-05-16 00:47] LABS: Glucose Urine UA NEGATIVE (NEGATIVE)
[2025-05-16 01:14] LABS: Basophils Abs Manual 0.00 10^3/uL (0.00-0.10); Basophils Percent Manual 0.0 % (0.2-2.0); Eosinophils Absolute Manual 0.00 10^3/uL (0.00-0.70); Eosinophils Percent Manual 0.0 % (0.9-7.0); Lymphocytes Absolute Manual 14.27 10^3/uL (1.20-3.80); Lymphocytes Percent Manual 64.0 % (20.5-60.0); Monocytes Absolute Manual 0.44 10^3/uL (0.30-0.80); Monocytes Percent Manual 2.0 % (1.7-12.0); Segmented Neut Absolute Manual 7.58 10^3/uL (1.4-6.5); Segmented Neutrophils % Manual 34.0 (43.0-75.0)
[2025-05-16 01:15] LABS: Smudge Cells SEEN
[2025-05-16 01:35] VITALS: BP 124/85; PULSE 71; O2SAT 97
[2025-05-16] MEDS: KETOROLAC TROMETHAMINE 10 MG TABLET PO (03:08)
[2025-05-16] MEDS: PREDNISONE 20 MG TABLET 40 MG PO (03:08)
== END 2025-05-16 03:07 | disposition home or self-care (01) ==
PROVIDERS: Emergency Provider Internal Medicine
DX: M54.32 Sciatica, left side (principal); M54.9 Dorsalgia, unspecified; C91.10 Chronic lymphocytic leukemia of B-cell type not having achieved remission
CPT/HCPCS: 36415; 72131; 73700; 76376; 80048; 81003; 85007; 85025; 85027; 85652; 86140; 96365; 96366; 96375; 99284; J1885; J2360; J2919; J3475; J7512

== ENCOUNTER 2025-06-03 13:05 | Outpatient (OUT) | payer MEDICARE, SELFPAY ==
--- NOTE | 2025-06-03 13:14 | PM.CN ---
Consult Note: HPI Data of Consult Patient: known to practice within the last 3 years Requesting Physician: Samia Joyner NP Primary Care Provider: Faye Garcia DO Consult Narrative Reason for consult: low back pain Narrative: Eitan Hurtado a pleasant 85 year old male presents for evaluation and management of low back pain with radiculopathy secondary to lumbar disc bulge, lumbar stenosis, and lumbar facet arthropathy. Pt had a recent fall with injury and was evaluated by the ER on 05/15/25, at that time they prescribed a steroid pack which patient has found significantly beneficial. Notes pain 1/10 increasing to less than 5/10 at times. cc:: CC: Samia Joyner NP Review of Systems ROS Musculoskeletal Reports: back pain PFSH PFSH Medical History (Updated 06/03/25 @ 13:56 by Samia Joyner NP) CLL (chronic lymphocytic leukemia) ?C91.10 - Chronic lymphocytic leukemia of B-cell type not having achieved remission (ICD-10) Social History Smoking status: Never smoker Little interest or pleasure in doing things: not at all Feeling down, depressed, or hopeless: not at all Meds Home Medications and Allergies Home Medications ?Medication ?Instructions ?Recorded ?Confirmed ?Type gabapentin 300 mg capsule 300 mg PO Q12H 10/24/23 02/21/24 History methotrexate sodium 2.5 mg tablet 2.5 mg PO .weekly 10/24/23 02/21/24 History nirmatrelvir 300 mg (150 mg See Rx Instructions PO .COMPLEX 10/24/23 Rx x2)-ritonavir 100 mg tablet,dose #30 ea pack (Paxlovid) sitagliptin phosphate 100 mg 100 mg PO DAILY 10/24/23 02/21/24 History tablet (Januvia) baclofen 5 mg tablet 5 mg PO TID 12/03/23 02/21/24 History glipizide 10 mg tablet 10 mg PO DAILY 12/03/23 02/21/24 History multivitamin-ferrous 1 tab PO DAILY 12/03/23 02/21/24 History fumarate-folic acid 18 mg-400 mcg tablet (Centrum Complete) simvastatin 40 mg tablet 40 mg PO DAILY 12/03/23 02/21/24 History folic acid 1 mg tablet 1 mg PO DAILY 02/21/24 02/21/24 History melatonin 10 mg capsule 10 mg PO DAILY 02/21/24 02/21/24 History methotrexate sodium 2.5 mg tablet 2.5 mg PO QWEEK 02/21/24 02/21/24 History Allergies Allergy/AdvReac Type Severity Reaction Status Date / Time codeine AdvReac Intermediate hallucinati Verified 05/15/25 21:53 ons morphine AdvReac Intermediate hallucinati Verified 05/15/25 21:53 ons Exam Back & Pelvis Lumbar spine/lower back: straight leg raise negative bilaterally; ROM not limited, no pain with ROM and no lumbar spinal tenderness Other: strength 5/5 in BLE sensation intact BLE Assessment and Plan Assessment and Plan (1) Lumbar stenosis with neurogenic claudication: (2) Lumbar spondylosis: (3) 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 i would like pt to trial PT and aquatherapy at this time. defer medication changes. pt agreeable. f/u 6 weeks, sooner if needed
--- OUTSIDE RECORDS SUMMARY | 2025-06-03 19:05 | XMS_ITS | CCD ---
Author Organization [facility] CliniSyms Care Team Providers Care Filter Tank Tender Name Role Phone REBECCA FARRIS Referring Unavailable KIANA HOLCOMB Admitting Unavailable KIANA HOLCOMB Attending Unavailable RODRÍGUEZ WHEAT Primary Care Unavailable HI Procedure Practitioner Unavailab ZAHRAA Oneill Surgeon Unavailable NAM, Primary Care Unavailable SHAIKH BROWNING Referring Unavailable ZAHRAA DARBY Attending Unavailable ZAHRAA DARBY Admitting Unavailable Rodríguez Wheat II Primary Care Provider MD Maurice Barrera Primary Care Provider MD Maurice Barrera Attending Provider Shaikh Barrera Attending Unavailable Fawwaade, Lugo Primary Care Unavailable Fawwaade, Lugo Admitting Unavailable AICHHOLZ, EDUCATIONAL DIRECTOR MIREYA Consulting Unavailable AICHHOLZ, EDUCATIONAL DIRECTOR MIREYA Admitting Unavailable FAWWAD, LUGO H Primary Care Unavailable AICHHOLZ, EDUCATIONAL DIRECTOR MIREYA Attending Unavailable AICHHOLZ, EDUCATIONAL DIRECTOR MIREYA Consulting Unavailable AICHHOLZ, EDUCATIONAL DIRECTOR MIREYA Admitting Unavailable FAWWAD, LUGO H Primary Care Unavailable AICHHOLZ, EDUCATIONAL DIRECTOR MIREYA Attending Unavailable FAWWAD, LUGO H Admitting Unavailable FAWWAD, LUGO H Attending Unavailable FAWWAD, LUGO H Consulting Unavailable FAWWAD, LUGO H Primary Care Unavailable Annmarie Mcgee Unavailable Rodríguez Wheat II Primary Care Provider Jarret PERERA MD, Daniel B Primary Care Provider [phone] Shaikh Barrera MD Unavailable Low Beyer MD Primary Care Provider Chanel MANAGEMENT PROFESSOR, Leander Unavailable Brennon WILLIS, Brandi Unavailable Unavailable Shaikh Barrera MD Unavailable Rosa Nguyen MA Unavailable Unavailable Holly CARIAS, Primary Care Provider JARRET PERERA RODRÍGUEZ Jihan Primary Care Unavailable ABCARMELINAANKAR, FREDERICK Referring Unavailable WHITNEYAR, FREDERICK Attending Unavailable SHAIKH BARRERA Primary Care Unavailable [place] EARRING MAKER, Treyargenis Unavailable Unavailable Chanel MANAGEMENT PROFESSOR, Leander Unavailable [phone] Aichholz [place] TIER-EDUCATIONAL DIRECTOR, Mireya Hortensia Primary Care Provider TRABOULSSI, MOURHAF Referring Unavailable AICHHOLZ, MIREYA HORTENSIA Primary Care Unavailable TRABOULSSI, MOURHAF Referring Unavailable AICHHOLZ, MIREYA HORTENSIA Primary Care Unavailable TRABOULSSI, MOURHAF Attending Unavailable AICHHOLZ, MIREYA HORTENSIA Primary Care Unavailable TRABOULSSI, MOURHAF Attending Unavailable TRABOULSSI, MOURHAF Referring Unavailable AICHHOLZ, MIREYA HORTENSIA Primary Care Unavailable Rosa Nguyen MA Unavailable ALT, SUNNY Attending Unavailable ALT, SUNNY Attending Unavailable AICHHOLZ, MIREYA Attending Unavailable AICHHOLZ, MIREYA Attending Unavailable ALT, SUNNY Attending Unavailable ALT, SUNNY Attending Unavailable CHANEL, LEANDER Attending Unavailabl e CHANEL, LEANDER Attending Unavailabl e ALT, SUNNY Attending Unavailable AICHHOLZ, MIREYA Attending Unavailable Holly CARIAS, Primary Care Provider Faye Garcia DO Attending Provider [phone] Allergies Allergy Classification Reported Allergen(s) Allergy Type Date of Onset Reaction(s) Facility (2 sources) Latex Drug allergy 05-25-20 25 Unknown, Unknown Reaction [facility] (20 sources) Acetaminophen / oxyCODONE Drug Allergy 08-20-20 23 [facility] (20 sources) Codeine; Translations: [CODEINE] Drug Allergy 12-15-19 23 Hallucinations, GI intolerance, Nausea Only [facility] (20 sources) oxyCODONE Drug Allergy 08-20-20 23 Unknown [facility] (1 source) Opioid Agonists Allergy to substance 05-25-20 25 [facility] Medications Current Medications Medication Drug Class(es) Dates Sig (Normalized) Sig (Original) diclofenac sodium 50 mg delayed release oral tablet (4 sources) Nonsteroidal Anti-inflammatory Drug Start: 01-16-2017 diclofenac, EC, (VOLTAREN) 50 mg EC tablet 01/16/2017 Active dicyclomine hydrochloride 10 mg oral capsule (2 sources) Anticholinergic Start: 02-26-2024 End: 05-26-2024 take 1 capsule by mouth in the [...] bedtime. 90 capsule 2 02/26/2024 05/26/2024 Active Equalyte (2 sources) Equalyte Active FIBER, PSYLLIUM HUSK, ORAL (2 sources) take 1 capsule by mouth four times daily FIBER, PSYLLIUM HUSK, ORAL Take 1 capsule by mouth 4 times a day. Active folic acid 1 mg oral tablet (20 sources) Start: 05-18-2025 End: 05-18-2025 take 1 tablet by mouth once daily Folic Acid 1 mg tablet Active 1 MG PO Daily May 18, 2025 3:48pm Complies with drug therapy Start: 02-21-2024 folic acid (Fo lvite) 1 MG tablet 06/23/2024 Active gabapentin 300 mg oral capsule (20 sources) Anti-epileptic Agent Start: 09-07-2024 End: 07-31-2025 take 1 capsule by mouth three times daily Gabapentin 300 mg capsule Active 300 MG PO Three times daily May 18, 2025 3:39pm Complies with drug therapy Start: 04-15-2013 End: 05-18-2025 take 1 capsule by mouth twice daily Gabapentin 300 mg Capsule Discontinued 300 MG PO Twice daily February 28, 2018 12:00am May 18, 2025 3:41pm Neurontin Active Comment on above: Take 300 mg by mouth twice daily. melatonin 10 mg extended release oral tablet (2 sources) Start: 06-21-202 4 take 1 capsule by mouth once daily at bedtime melatonin 10 mg tablet extended release Take 1 capsule by mouth once daily at bedtime. 02/21/2024 Active methotrexate 2.5 mg oral tablet (20 sources) Folate Analog Metabolic Inhibitor Start: 5 take 1 tablet by mouth every week Methotrexate Sodium 2.5 mg tablet Active 2.5 MG PO every week 01 29May 18, 2025 12:00am Complies with drug therapy Start: 09-21-2023 take 1 tablet by zeeshan th every week methotrexate 2.5 MG tablet Take 2.5 mg by mouth 1 (one) time per week. 09/21/2023 Active multivitamin tablet (2 sources) take 1 tablet by mouth once daily multivitamin tablet Take 1 tablet by mouth once daily. Active mupirocin 0.02 mg/mg topical ointment (1 source) RNA Synthetase Inhibitor Antibacterial Mupirocin 2 % External for 30 Days Active simvastatin 40 mg oral tablet (20 sources) HMG-CoA Reductase Inhibitor Start: 02-29-20 End: 05-02-20 take 1 tablet by mouth once daily in the evening Simvastatin 40 mg Tablet Active 40 MG PO Every evening February 28, 2018 12:00am Complies with drug therapy Comment on above: Take 40 mg by mouth daily at bedtime. SITagliptin 100 mg oral tablet (20 sources) Dipeptidyl Peptidase 4 Inhibitor Start: 05-25-20 25 take 1 tablet by mouth once daily Sitagliptin Phosphate (Januvia) 100 mg tablet Active 100 MG PO Daily May 25, 2025 12:00am Complies with drug therapy Start: 07-06-2023 End: 05-02-2025 take 1 tablet by mouth once daily [...] / HYDROcodone bitartrate 5 mg oral tablet (2 sources) Opioid Agonist Start: 03-03-2018 End: 05-15-2024 take 1 tablet by mouth every four to six hours as needed for pain Hydrocodone-Acetam inophen ([place]) 5-325 mg tablet Discontinued 1 - 2 TAB PO EVERY 4-6 HOURS as needed for Pain March 03, 2018 May 15, 2024 10:56am aspirin 81 mg delayed release oral tablet (8 sources) Platelet Aggregation Inhibitor, Nonsteroidal Anti-inflammatory Drug Start: 02-28-2018 End: 05-18-2025 take 1 tablet by mouth once daily Aspirin (Aspir-81) 81 mg Tablet,Delayed Release (Dr/Ec) Discontinued 81 MG PO Daily February 28, 2018 12:00am May 18, 2025 3:38pm take 1 tablet by mouth once giovani y Aspirin 81 mg ORAL Tab Take 81 mg by mouth once daily. Active take 1 tablet by zeeshan th every twenty-four hours Aspirin 81 MG 1 tablet Orally Once a day Not-Taking Comment on above: Take 81 mg by mouth once daily. baclofen 5 mg oral tablet (7 sources) gamma-Aminobutyric Acid-ergic Agonist Start: 11-12-19 24 End: 07-01-20 take 1 tablet by mouth in the [...] tablet 1 11/12/2023 07/01/2024 Discontinued (Therapy completed) diazePAM 2 mg oral tablet (6 sources) Benzodiazepine Start: 02-29-20 18 End: 05-18-20 25 take 1 tablet by mouth once daily Diazepam 2 mg Tablet Discontinued 2 MG PO Daily February 28, 2018 12:00am May 18, 2025 3:38pm Start: 10-11-2005 DIAZEPAM 2 MG TAB Indications: Active M ni re's disease, cochleovestibular one pill 2-3 times daily 100 2 10/11/2005 Active Comment on above: one pill 2-3 times d aily diphenhydrAMINE hydrochloride 25 mg oral tablet (2 sources) Histamine-1 Receptor Antagonist Start: End: take 1 tablet by mouth once daily at bedtime as needed for sleep Diphenhydramine Hcl 25 mg Tablet Discontinued 25 MG PO Daily at bedtime as needed for Sleep February 28, 2018 12:00am May 18, 2025 3:39pm doxycycline hyclate 100 mg oral tablet (2 sources) Tetracycline-class Drug Start: End: take 1 tablet by mouth twice daily Doxycycline Hyclate 100 mg tablet Discontinued 100 MG PO Twice daily 14 March 03, 2018 12:00am May 15, 2024 10:56am glipiZIDE 10 mg oral tablet (20 sources) Sulfonylurea Start: End: take 1 tablet by mouth twice daily in the morning Glipizide 10 mg tablet Discontinued 10 MG PO Twice daily 60 May 20, 2025 12:19pm May 20, 2025 9:19pm Take one tablet in the morning and take one tablet in the evening. Take before meals. Start: 04-23-2024 End: 08-03-2024 take 1 tablet by mouth in the morning glipiZIDE (Glucotrol) 10 MG tablet Indications: Type 2 diabetes mellitus without complication, 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) Take 1 tablet (10 mg) by mouth in the morning and 1 tablet (10 mg) in the evening. Take before meals. 180 tablet 08/03/2024 Active Start: 12-03-2023 End: 05-02-2025 take 1 tablet by mouth in the morning glipiZIDE (Glucotrol) 10 MG tablet Indications: Type 2 diabetes mellitus without complication, without long-term current use of insulin ([facility]) Take 1 tablet (10 mg) by mouth in the morning and 1 tablet (10 mg) in the evening. Take before meals. 180 tablet 02/01/2025 05/02/2025 Active glipiZIDE Active glipiZIDE 2.5 mg / metFORMIN hydrochloride 500 mg oral tablet (6 sources) Biguanide, Sulfonylurea Start: 02-28-2018 End: 05-18-2025 take 1 tablet by mouth once daily Glipizide-Metformin 2.5-500 mg Tablet Discontinued 1 TAB PO Daily February 28, 2018 12:00am May 18, 2025 3:39pm Start: 01-19-2016 glipiZIDE-metF ORMIN (METAGLIP) 2.5-500 mg per tablet 01/19/2016 Active hydroCHLOROthiazide 25 mg / triamterene 37.5 mg oral tablet (11 sources) Potassium-sparing Diuretic, Thiazide Diuretic Start: 02-28-2018 End: 05-18-2025 take 1 tablet by mouth once daily Triamterene-Hydrochlorothiazid 37.5-25 mg Tablet Discontinued 1 TAB PO Daily February 28, 2018 12:00am May 18, 2025 3:41pm Start: 11-10-2015 triamterene-hy drochlorothiazide (MAXZIDE-25) 37.5-25 mg per tablet 11/10/2015 Active Start: 06-29-2004 DYAZIDE 37.5/2 5 CAPSULE Indications: Active M ni re's disease, cochleovestibular one bymouth each day 30 4 06/29/2004 Active Comment on above: one bymouth each day meclizine hydrochloride 25 mg oral tablet (7 sources) Antiemetic Start: 8 End: take 1 tablet by mouth once daily as needed Meclizine 25 mg Tablet Discontinued 25 MG PO Daily as needed for Motion Sickness February 28, 2018 12:00am May 18, 2025 3:40pm Start: 07-20-2004 ANTIVERT 25MG TABLET one three times daily for dizziness 100 4 07/20/2004 Active take 2 tablets by [facility] every twenty-four hours Meclizine HCl 12.5 MG 2 tablets as needed Orally Once a day Active Comment on above: one three times giovani y for dizziness nitroglycerin 0.3 mg sublingual tablet (2 sources) Nitrate Vasodilator Start: 02-28-2018 End: 05-18-2025 Nitroglycerin 0.3 mg Tablet, Sublingual Discontinued 0.3 MG SUBLINGUAL every 5 to 15 minutes as needed for Chest Pain February 28, 2018 12:00am May 18, 2025 3:41pm Problems Active Problems Problem Classification Problem Date [...] Coronary atherosclerosis; Translations: [Atherosclerotic heart disease of [place] coronary artery without angina pectoris] 07-03-2024 Chronic [...] fibromatosis [Dupuytren]] Episodic Other connective tissue disease (3 sources) Dupuytrens contracture of bilateral hands; Translations: [Palmar fascial fibromatosis [Dupuytren]] 05-15-2024 Episodic Other ear and sense organ disorders [...] Scrotal pain; Translations: [Scrotal pain] Onset: 05-08-2022 Unclassified (1 source) 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, lumbar region Past or Other Problems Problem Classification Problem [...] Ql (S tl)on 04-16-2025 FASTING: UNKNOWN [facility] [employer] Organization Information Site ID: QPT Name: [facility] Address: [address] [place] [address], [address] [place] [phone] Director: Ta Meeyrs MD [facility] Occult blood x 1, stoolon Lower GI hemoglobin IA Ql (Stl) SEE NOTE [facility] Comment on above: FECAL GLOBIN BY IMMUNOCHEMISTRY Micro Number: [id number] Test Status: Final Specimen Source: Insure (tm) [...] Interpretation and review of laboratory results Abnormal [facility] - Hematology and Cell countson 03-31-2025 HbA1c (Bld) [Mass fraction] 7 % [facility] NUCLEAR STRESS TESTon 2024 NUCLEAR STRESS TEST Interpreted By: Ayde Ríos and Giannuzzi Michael STUDY: MYOCARDIAL PERFUSION STRESS TEST WITH LEXISCAN Performing facility: [facility], [address] [place] [address], [address] Provider: Todd Vallecillo MD PCP: Dr. Marci Rojas [facility] Supervising provider: Todd Vallecillo MD INDICATION: Signs/Symptoms:shortne ss of breath. ,R06.02 Shortness of breath HISTORY: Gender: M; Age: 84 y/o ; Height: HT 162.6 cm cm; Weight: WT 72.576 kg kg. Diabetes; SOB; Fatigue; MVR Quit smoking 30 years ago. COMPARISON: Previous nuclear testing completed [id number] at [facility]. ACCESSION NUMBER(S): [id number] ORDERING CLINICIAN: TODD VALLECILLO TECHNIQUE: ONE DAY [...] Ayde Ríos 01/21/2025 3:56 PM Dictation workstation: [id number] [facility] ECG 12 [place] 12-28-2024 Normal sinus rhythm [facility] Work Phone: [place] ECHO DOPPLER COMPLETEon 0 12-12-2024 [place] [address] Cardiology Report Signed Patient: EITAN HURTADO MR#: [id number] : 1940 Acct:[id number] Age/Sex: 84 / M ADM Date: 12/11/24 Loc: CARD Attending Dr: Mireya Rojas NP Ordering Physician: Mireya Rojas NP Date of Service: 12/11/24 Procedure(s): CA echo doppler complete Accession Number(s): [id number] cc: Mireya Rojas NP; LEANDER CHANEL Patient Name: EITAN HURTADO MR#: [id number] : 1940 Exam Date: 12/11/2024 Ordering Doctor: [...] 19:36 Dictated By (more content not included)... [facility] Radiology, Radiologist, MD - 12/12/2024 [place] [address] Cardiology Report Signed Patient: EITAN HURTADO MR#: [id number] : 1940 Acct:[id number] Age/Sex: 84 / M ADM Date: 12/11/24 Loc: CARD Attending Dr: Mireya Rojas NP Ordering Physician: Mireya Rojas NP Date of Service: 12/11/24 Procedure(s): [place] echo doppler complete Accession Number(s): [id number] cc: Mireya Rojas NP; LEANDER CHANEL Patient Name: EITAN HURTADO MR#: [id number] : 1940 Exam Date: 12/11/2024 Ordering Doctor: [...] MARSHALL Signed By: 12/12/241936 DD/ 35 TD/TT: Building Coordinator: [facility] Radiology Study observation (narrative) [facility] CA ECHO DOPPLER COMPLETEOrde red By: Radiologist Radiology on 12-12-2024 [facility] Work Phone: HbA1c (Bld) [Mass fraction]o n 11-26-2024 Interpretation and review of laboratory results Abnormal [facility] - Hematology and Cell countson 11-26-2024 HbA1c (Bld) [Mass fraction] 6.60 % [facility] CBC W AUTO DIFF BLDon Basophils/100 WBC (Bld) 0 % [facility] BASOPHILS # BLD AUTO 0 [facility] DIFFERENTIAL METHOD BLD Manual [facility] EOSINOPHIL # BLD AUTO 0 [facility] LYMPHOCYTES # BLD AUTO 19.08 High [facility] # B[facility] NEUTROPHILS # BLD AUTO 3.22 [facility] NRBC # BLD AUTO <0.01 NINF [facility] NRBC/100 WBC BLD-RTO 0 /100 WBC [facility] OVALOCYTES BLD QL SMEAR Few [facility] PLATELET # BLD AUTO 142 Low [facility] Comment on above: Results checked and verified.No clot detected. [facility] PMV BLD AUTO 11.9 fL 9.0 - 12.7 fL [facility] POLYCHROMASIA BLD QL SMEAR Slight [facility] RED CELL MORPH Reviewed: see result s of individual morphologies [facility] WBC # BLD AUTO 22.99 High [facility] Eosinophils/100 WBC (Bld) 0 % [facility] Erythrocyte distribution width (RBC) [Ratio] 14.6 % 11.5 - 15.0 % [facility] Hematocrit (Bld) [Volume fraction] 39.9 % 39.0 - 51.0 % [facility] Hemoglobin (Bld) [Mass/Vol] 13.4 g/dL 13.0 - 17.0 g/dL [facility] Interpretation and review of laboratory results Abnormal [facility] Lymphocytes/100 WBC (Bld) 83 % [facility] MCH (RBC) [Entitic mass] 33.4 pg 26.0 - 34.0 pg [facility] MCHC (RBC) [Mass/Vol] 33.6 g/dL 30.5 - 36.0 g/dL [facility] MCV (RBC) [Entitic vol] 99.5 fL 80.0 - 100.0 fL [facility] Monocytes/100 WBC (Bld) 3 % [facility] Neutrophils/100 WBC (Bld) 14 % [facility] PLATELET # BLD EST Adequate [facility] RBC (Bld) [#/Vol] 4.01 10*6/uL Low 4.20 - 6.0 0 m/uL [facility] Specimen Type: BLOOD SPECIMEN Ordering Facility: [facility] Address: [address] [place], [place] [id number] Original Ordering Provider: FREDERICK MCLEAN [facility] CBC W Auto Differential pane l (Bld)on 08-06-2024 Basophils (Bld) [#/Vol] 0.00 10*3/uL Normal <0.11 [facility] Comment on above: Order Comment: Speci men Type: BLOOD SPECIMEN Ordering Facility: [facility] Address: [address] [place] [address] Performed By: #### 5 7021-8 #### MIQUEL [facility] CLIA [id number] [address] [place] [address] LAB CLIA [id number] [address] [place] [address] [place] Basophils/100 WBC (Bld) 0.0 % Normal [facility] Comment on above: Order Comment: Speci men Type: BLOOD SPECIMEN Ordering Facility: [facility] Address: [address] [place] [address] Performed By: #### 5 7021-8 #### MIQUEL [facility] CLIA [id number] [address] [place] [address] LAB CLIA [id number] [address] [place] [address] [place] Differential cell count method Nom (Bld) Manual Normal [facility] Comment on above: Order Comment: Speci men Type: BLOOD SPECIMEN Ordering Facility: [facility] Address: [address] [place] [address] Performed By: #### 5 7021-8 #### [facility] CLIA [id number] [address] [place] [address] LAB CLIA [id number] [address] [place] [address] [place] Eosinophils (Bld) [#/Vol] 0.00 10*3/uL Normal <0.46 [facility] Comment on above: Order Comment: Speci men Type: BLOOD SPECIMEN Ordering Facility: [facility] Address: [address] [place] [address] Performed By: #### 5 7021-8 #### [facility] CLIA [id number] [address] [place] [address] LAB CLIA [id number] [address] [place] [address] [place] Eosinophils/100 WBC (Bld) 0.0 % Normal [facility] Comment on above: Order Comment: Speci men Type: BLOOD SPECIMEN Ordering Facility: [facility] Address: [address] [place] [address] Performed By: #### 5 7021-8 #### [facility] CLIA [id number] [address] [place] [address] LAB CLIA [id number] [address] [place] [address] [place] Erythrocyte distribution width (RBC) [Ratio] 14.6 % Normal 11.5-15.0 [facility] Comment on above: Order Comment: Speci men Type: BLOOD SPECIMEN Ordering Facility: [facility] Address: [address] [place] [address] Performed By: #### 5 7021-8 #### AUDIEALИРИНА [facility] CLIA [id number] [address] [place] [address] LAB CLIA [id number] [address] [place] [address] [place] Hematocrit (Bld) [Volume fraction] 39.9 % Normal 39.0-51.0 [facility] Comment on above: Order Comment: Speci men Type: BLOOD SPECIMEN Ordering Facility: [facility] Address: [address] [place] [address] Performed By: #### 5 7021-8 #### [facility] CLIA [id number] [address] [place] [address] LAB CLIA [id number] [address] [place] [address] [place] Hemoglobin (Bld) [Mass/Vol] 13.4 g/dL Normal 13.0-17.0 [facility] Comment on above: Order Comment: Speci men Type: BLOOD SPECIMEN Ordering Facility: [facility] Address: [address] [place] [address] Performed By: #### 5 7021-8 #### AUDIEALИРИНА [facility] CLIA [id number] [address] [place] [address] LAB CLIA [id number] [address] [place] [address] [place] Lymphocytes (Bld) [#/Vol] 19.08 10*3/uL High 1.00-4.00 [facility] Comment on above: Order Comment: Speci men Type: BLOOD SPECIMEN Ordering Facility: [facility] Address: [address] [place] [address] Performed By: #### 5 7021-8 #### AUDIEALИРИНА [facility] CLIA [id number] [address] [place] [address] LAB CLIA [id number] [address] [place] [address] [place] Lymphocytes/100 WBC (Bld) 83.0 % Normal [facility] Comment on above: Order Comment: Speci men Type: BLOOD SPECIMEN Ordering Facility: [facility] Address: [address] [place] [address] Performed By: #### 5 7021-8 #### [facility] CLIA [id number] [address] [place] [address] LAB CLIA [id number] [address] [place] [address] [place] MCH (RBC) [Entitic mass] 33.4 pg Normal 26.0-34.0 [facility] Comment on above: Order Comment: Speci men Type: BLOOD SPECIMEN Ordering Facility: [facility] Address: [address] [place], [place] [id number] Performed By: #### 5 7021-8 #### [facility] CLIA [id number] [address] [place] [address] LAB CLIA [id number] [address] [place] [address] [place] MCHC (RBC) [Mass/Vol] 33.6 g/dL Normal 30.5-36.0 [facility] Comment on above: Order Comment: Speci men Type: BLOOD SPECIMEN Ordering Facility: [facility] Address: [address] [place] [address] Performed By: #### 5 7021-8 #### AUDIEALИРИНА [facility] CLIA [id number] [address] [place] [address] LAB CLIA [id number] [address] [place] [address] [place] MCV (RBC) [Entitic vol] 99.5 fL Normal 80.0-100.0 [facility] Comment on above: Order Comment: Speci men Type: BLOOD SPECIMEN Ordering Facility: [facility] Address: [address] [place] [address] Performed By: #### 5 7021-8 #### [facility] CLIA [id number] [address] [place] [address] LAB CLIA [id number] [address] [place] [address] [place] Monocytes (Bld) [#/Vol] 0.69 10*3/uL Normal <0.87 [facility] Comment on above: Order Comment: Speci men Type: BLOOD SPECIMEN Ordering Facility: [facility] Address: [address] [place] [address] Performed By: #### 5 7021-8 #### [facility] CLIA [id number] [address] [place], [place] [address] LAB CLIA [id number] [address] [place] [address] [place] Monocytes/100 WBC (Bld) 3.0 % Normal [facility] Comment on above: Order Comment: Speci men Type: BLOOD SPECIMEN Ordering Facility: [facility] Address: [address] [place] [address] Performed By: #### 5 7021-8 #### [facility] CLIA [id number] [address] [place], [place] [address] [facility] CLIA [id number] [address] [place] [address] [place] Neutrophils (Bld) [#/Vol] 3.22 10*3/uL Normal 1.45-7.50 [facility] Comment on above: Order Comment: Speci men Type: BLOOD SPECIMEN Ordering Facility: [facility] Address: [address] [place] [address] Performed By: #### 5 7021-8 #### [facility] CLIA [id number] [address] [place] [address] LAB CLIA [id number] [address] [place] [address] [place] Neutrophils/100 WBC (Bld) 14.0 % Normal [facility] Comment on above: Order Comment: Speci men Type: BLOOD SPECIMEN Ordering Facility: [facility] Address: [address] [place] [address] Performed By: #### 5 7021-8 #### [facility] CLIA [id number] [address] [place] [address] LAB CLIA [id number] [address] [place] [address] [place] Nucleated RBC (Bld) [#/Vol] 10*3/uL Normal <0.01 [facility] Comment on above: Order Comment: Speci men Type: BLOOD SPECIMEN Ordering Facility: [facility] Address: [address] [place] [address] Performed By: #### 5 7021-8 #### [facility] CLIA [id number] [address] [place] [address] LAB CLIA [id number] [address] [place] [address] [place] Nucleated RBC/100 WBC (Bld) [Ratio] 0.0 /100 WBC Normal [facility] Comment on above: Order Comment: Speci men Type: BLOOD SPECIMEN Ordering Facility: [facility] Address: [address] [place] [address] Performed By: #### 5 7021-8 #### [facility] CLIA [id number] [address] [place] [address] LAB CLIA [id number] [address] [place] [address] [place] Ovalocytes LM Ql (Bld) Few Normal [facility] Comment on above: Order Comment: Speci men Type: BLOOD SPECIMEN Ordering Facility: [facility] Address: [address] [place] [address] Performed By: #### 5 7021-8 #### [facility] CLIA [id number] [address] [place] [address] LAB CLIA [id number] [address] [place] [address] [place] Platelet mean volume (Bld) [Entitic vol] 11.9 fL Normal 9.0-12.7 [facility] Comment on above: Order Comment: Speci men Type: BLOOD SPECIMEN Ordering Facility: [facility] Address: [address] [place] [address] Performed By: #### 5 7021-8 #### [facility] CLIA [id number] [address] [place] [address] LAB CLIA [id number] [address] [place] [address] [place] Platelets (Bld) [#/Vol] 142 10*3/uL Low 150-400 [facility] Comment on above: Order Comment: Speci men Type: BLOOD SPECIMEN Ordering Facility: [facility] Address: [address] [place] [address] Result Comment: Resu lts checked and verified.No clot detected. Performed By: #### 5 7021-8 #### [facility] CLIA [id number]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 above: Performed By: #### C MP, LIPID #### [facility] [address] [address] [address] Estrada Carpenter Globulin (S) [Mass/Vol] 3.0 g/dL Normal [facility] Comment on above: Performed By: #### C MP, LIPID #### [facility] [address] [place] [address] Dr. Estrada Carpenter Glucose [Mass/Vol] 145 mg/dL Critically high 74-106 [facility] Comment on above: Performed By: #### C MP, LIPID #### [facility] [address] [place] [address] Dr. Estrada Carpenter Potassium [Moles/Vol] 4.5 mmol/L Normal 3.5-5.1 [facility] Comment on above: Performed By: #### C MP, LIPID #### [facility] [address] [place] [address] Dr. Estrada Carpenter Protein [Mass/Vol] 6.8 g/dL Normal 6.1-8.2 [facility] Comment on above: Performed By: #### C MP, LIPID #### [facility] [address] [place] [address] Dr. Estrada Carpenter Sodium [Moles/Vol] 138 mmol/L Normal 136-145 [facility] Comment on above: Performed By: #### C MP, LIPID #### [facility] [address] [place] [address] Dr. Estrada Carpenter Urea nitrogen [Mass/Vol] 15.0 mg/dL Normal 7.0-18.0 [facility] Comment on above: Performed By: #### C MP, LIPID #### [facility] [address] [place] [address] Dr. Estrada Carpenter Urea nitrogen/Creatinine [Mass ratio] 16.9 mg/mg Normal [facility] Comment on above: Performed By: #### C MP, LIPID #### [facility] [address] [address] [address] Estrada Carpenter BASIC METABOLIC PANELon 12-3 Calcium [Mass/Vol] 8.9 mg/dL Normal 8.6-10.3 [facility] Comment on above: Order Comment: No: D o not add to previous draw Performed By: #### 1 69, [id number] ####[facility] [place] [address], [place] Chloride [Moles/Vol] 107 mmol/L Normal 98-107 [facility] Comment on above: Order Comment: No: D o not add to previous draw Performed By: #### 1 69, 82836 ####[facility] [place] [address], [place] CO2 [Moles/Vol] 29 mmol/L Normal 21-31 [facility] Comment on above: Order Comment: No: D o not add to previous draw Performed By: #### 1 69, 98725 ####[facility] [facility] [place] [address], [place] Creatinine [Mass/Vol] 0.79 mg/dL Normal 0.70-1.30 [facility] Comment on above: Order Comment: No: D o not add to previous draw Performed By: #### 1 69, [id number] ####[facility] [facility] [place] [address], [place] GFR/1.73 sq M.predicted among blacks MDRD (S/P/Bld) [Vol rate/Area] mL/min/{1.73_m2} Normal >60 [facility] Comment on above: Order Comment: No: D o not add to previous draw Result Comment: Calc ulation may not be valid for patients over 70 years Performed By: #### 1 69, 51036 ####[facility] [place] [address], [facility] GFR/1.73 sq M.predicted among non-blacks MDRD (S/P/Bld) [Vol rate/Area] mL/min/{1.73_m2} Normal >60 [facility] Comment on above: Order Comment: No: D o not add to previous draw Result Comment: Calc ulation may not be valid for patients over 70 years Performed By: #### 1 69, 87895 ####[facility] [place] [address], [place] Glucose [Mass/Vol] 147 mg/dL High 70-100 [facility] Comment on above: Order Comment: No: D o not add to previous draw Performed By: #### 1 69, 21847 ####[facility] [facility] [place] [address], [place] Potassium [Moles/Vol] 4.1 mmol/L Normal 3.5-5.1 [facility] Comment on above: Order Comment: No: D o not add to previous draw Performed By: #### 1 69, 88655 ####[facility] [facility] [place] [address], [facility] Sodium [Moles/Vol] 139 mmol/L Normal 136-145 [facility] Comment on above: Order Comment: No: D o not add to previous draw Performed By: #### 1 69, 98013 ####[facility] [place] [address], [place] Urea nitrogen [Mass/Vol] 22 mg/dL Normal 7-25 [facility] Comment on above: Order Comment: No: D o not add to previous draw Performed By: #### 1 69, 91245 ####[facility] [place] [address], [place] CBC COMPLETE BLOOD COUNTon Erythrocyte distribution width (RBC) [Ratio] 14.9 % Normal 11.5-15.0 [facility] Comment on above: Order Comment: No: D o not add to previous draw Performed By: #### 5 0608 ####[facility] Hematocrit (Bld) [Volume fraction] 38.1 % Low 39.0-50.0 [facility] Comment on above: Order Comment: No: D o not add to previous draw Performed By: #### 5 0608 ####[facility] Hemoglobin (Bld) [Mass/Vol] 12.2 g/dL Low 13.0-17.0 [facility] Comment on above: Order Comment: No: D o not add to previous draw Performed By: #### 5 0608 ####[place] [id number] [address] MCH (RBC) [Entitic mass] 31.0 pg Normal 27.0-33.0 [facility] Comment on above: Order Comment: No: D o not add to previous draw Performed By: #### 5 0608 ####[address] MCHC (RBC) [Mass/Vol] 32.0 g/dL Normal 32.0-35.0 [facility] Comment on above: Order Comment: No: D o not add to previous draw Performed By: #### 5 0608 ####[facility] MCV (RBC) [Entitic vol] 96.9 fL Normal 82.0-98.0 [facility] Comment on above: Order Comment: No: D o not add to previous draw Performed By: #### 5 0608 ####[address] Nucleated RBC/100 WBC (Bld) [Ratio] 0 % Normal 0-0 [facility] Comment on above: Order Comment: No: D o not add to previous draw Performed By: #### 5 0608 ####[facility] [place] [address], [facility] PLAT CNT 262 10*3/uL Normal 150-400 [facility] Comment on above: Order Comment: No: D o not add to previous draw Performed By: #### 5 0608 ####[facility] [facility] [place] [address], [facility] RBC (Bld) [#/Vol] 3.93 10*6/uL Low 4.20-5.70 [facility] Comment on above: Order Comment: No: D o not add to previous draw Performed By: #### 5 0608 ####[facility] [place] [address], [facility] WBC (Bld) [#/Vol] 24.04 10*3/uL High 4.00-10.60 [facility] Comment on above: Order Comment: No: D o not add to previous draw Performed By: #### 5 0608 ####[facility] [facility] [place] [address], [facility] MAGNESIUM BLOODon 08-31-2021 Magnesium [Mass/Vol] 2.0 mg/dL Normal 1.9-2.7 [facility] Comment on above: Order Comment: No: D o not add to previous draw Performed By: #### 1 0070, [id number] ####[facility] [facility] [place] [address], [facility] POC GLUCOSE LABon 08-31-2021 Glucose [Mass/Vol] 150 mg/dL High 70-100 [facility] Comment on above: Performed By: #### 8 [id number] ####[facility] [facility] [place] [place] [address], [facility] Glucose [Mass/Vol] 133 mg/dL High 70-100 [facility] Comment on above: Performed By: #### 8 5499 ####[facility] [facility].[address] POC SARS COV2 ANTIGEN NEGATI VEon 08-31-2021 POC SARS COV2 ANTIGEN NEG Negative Normal NEGATIVE [facility] Comment on above: Result Comment: Nega [...] of clinicalsigns and symptoms consistent with COVID-19.The [employer] COVID-19 Ag Card is a lateral flow immunoassay intended forthe qualitative detection of nucleocapsid protein antigen [id number] in direct nasal swabs from individuals within [...] Performed By: #### 3 1977 ####[facility] [facility], [place] [id number] [place] [address] BASIC METABOLIC PANELon 08-03 Calcium [Mass/Vol] 8.3 mg/dL Low 8.6-10.3 [facility] Comment on above: Order Comment: No: D o not add to previous draw Performed By: #### 0 0071, 65131, 18506 ####[facility] [facility] [place] [address], [facility] Chloride [Moles/Vol] 110 mmol/L High 98-107 [facility] Comment on above: Order Comment: No: D o not add to previous draw Performed By: #### 0 0071, 94034, 73903 ####[facility] [place] [address], [facility] CO2 [Moles/Vol] 23 mmol/L Normal 21-31 [facility] Comment on above: Order Comment: No: D o not add to previous draw Performed By: #### 0 0071, 23068, 87468 ####[facility] [place] [address], [facility] Creatinine [Mass/Vol] 0.83 mg/dL Normal 0.70-1.30 [facility] Comment on above: Order Comment: No: D o not add to previous draw Performed By: #### 0 0071, 03620, 51287 ####[facility] [place] [address], [facility] GFR/1.73 sq M.predicted among blacks MDRD (S/P/Bld) [Vol rate/Area] mL/min/{1.73_m2} Normal >60 [facility] Comment on above: Order Comment: No: D o not add to previous draw Result Comment: Calc ulation may not be valid for patients over 70 years Performed By: #### 0 0071, 35072, 07672 ####[facility] [place] [address], [facility] GFR/1.73 sq M.predicted among non-blacks MDRD (S/P/Bld) [Vol rate/Area] mL/min/{1.73_m2} Normal >60 [facility] Comment on above: Order Comment: No: D o not add to previous draw Result Comment: Calc ulation may not be valid for patients over 70 years Performed By: #### 0 0071, 60345, 77780 ####[facility] [place] [address], [facility] Glucose [Mass/Vol] 142 mg/dL High 70-100 [facility] Comment on above: Order Comment: No: D o not add to previous draw Performed By: #### 0 0071, 27690, 05880 ####[facility] [facility] [place] [address], [facility] Potassium [Moles/Vol] 3.4 mmol/L Low 3.5-5.1 [facility] Comment on above: Order Comment: No: D o not add to previous draw Performed By: #### 0 0071, 18082, 34405 ####[facility] [facility] [place] [place] [address], [facility] Sodium [Moles/Vol] 141 mmol/L Normal 136-145 [facility] Comment on above: Order Comment: No: D o not add to previous draw Performed By: #### 0 0071, 12110, 67481 ####[facility] [facility] [place] [address], [facility] Urea nitrogen [Mass/Vol] 19 mg/dL Normal 7-25 [facility] Comment on above: Order Comment: No: D o not add to previous draw Performed By: #### 0 0071, 54339, 39931 ####[facility] [facility].[address] CBC COMPLETE BLOOD COUNTon Erythrocyte distribution width (RBC) [Ratio] 14.6 % Normal 11.5-15.0 [facility] Comment on above: Order Comment: No: D o not add to previous draw Performed By: #### 5 0608 ####[facility] [facility] [place] [place] [address], [facility] Hematocrit (Bld) [Volume fraction] 32.9 % Low 39.0-50.0 [facility] Comment on above: Order Comment: No: D o not add to previous draw Performed By: #### 5 0608 ####[id number] Hemoglobin (Bld) [Mass/Vol] 11.0 g/dL Low 13.0-17.0 [facility] Comment on above: Order Comment: No: D o not add to previous draw Performed By: #### 5 0608 ####[facility] MCH (RBC) [Entitic mass] 31.4 pg Normal 27.0-33.0 [facility] Comment on above: Order Comment: No: D o not add to previous draw Performed By: #### 5 0608 ####[place] [id number] [address] MCHC (RBC) [Mass/Vol] 33.4 g/dL Normal 32.0-35.0 [facility] Comment on above: Order Comment: No: D o not add to previous draw Performed By: #### 5 0608 ####[address] MCV (RBC) [Entitic vol] 94.0 fL Normal 82.0-98.0 [facility] Comment on above: Order Comment: No: D o not add to previous draw Performed By: #### 5 0608 ####[facility] Nucleated RBC/100 WBC (Bld) [Ratio] 0 % Normal 0-0 [facility] Comment on above: Order Comment: No: D o not add to previous draw Performed By: #### 5 0608 ####[address] PLAT CNT 214 10*3/uL Normal 150-400 [facility] Comment on above: Order Comment: No: D o not add to previous draw Performed By: #### 5 0608 ####[facility] [place] [address], [facility] RBC (Bld) [#/Vol] 3.50 10*6/uL Low 4.20-5.[address] [facility] Comment on above: Order Comment: No: D o not add to previous draw Performed By: #### 5 0608 ####[facility] [place] [address], [place] WBC (Bld) [#/Vol] 17.28 10*3/uL High 4.00-10.60 The [facility] Comment on above: Order Comment: No: D o not add to previous draw Performed By: #### 5 0608 ####[facility] [place] [address], [facility] MAGNESIUM BLOODon 08-30-2021 Magnesium [Mass/Vol] 1.8 mg/dL Low 1.9-2.7 The [facility] Comment on above: Order Comment: No: D o not add to previous draw Performed By: #### 0 0071, 99347, 27836 ####[facility] [place] [address], [facility] PHOSPHORUS BLOODon Phosphate [Mass/Vol] 3.4 mg/dL Normal 2.5-5.0 [facility] Comment on above: Order Comment: No: D o not add to previous draw Performed By: #### 0 0071, 57412, 73205 ####[facility] [place] [address], [place] POC GLUCOSE LABon 08-30-2021 Glucose [Mass/Vol] 212 mg/dL High 70-100 [facility] Comment on above: Performed By: #### 8 5499 ####[facility] [place] [address], [place] Glucose [Mass/Vol] 146 mg/dL High 70-100 [facility] Comment on above: Performed By: #### 8 5499 ####[facility] [place] [address], [place] Glucose [Mass/Vol] 164 mg/dL High 70-100 [facility] Comment on above: Performed By: #### 8 5499 ####[facility] [place] [address], [place] Glucose [Mass/Vol] 145 mg/dL High 70-100 [facility] Comment on above: Performed By: #### 8 5499 ####[facility] [place] [address], [place] BASIC METABOLIC PANELon 12-2 Calcium [Mass/Vol] 8.2 mg/dL Low 8.6-10.3 [facility] Comment on above: Order Comment: No: D o not add to previous draw Performed By: #### 4 1000, , 92938 ####[facility] [place] [address], [place] Chloride [Moles/Vol] 111 mmol/L High 98-107 [facility] Comment on above: Order Comment: No: D o not add to previous draw Performed By: #### 4 1000, , 30014 ####[facility] [place] [address], [place] CO2 [Moles/Vol] 21 mmol/L Normal 21-31 The [facility] Comment on above: Order Comment: No: D o not add to previous draw Performed By: #### 4 1000, 37305, 83169 ####[facility] [place] [address], [place] Creatinine [Mass/Vol] 0.70 mg/dL Normal 0.70-1.30 [facility] Comment on above: Order Comment: No: D o not add to previous draw Performed By: #### 4 1000, , 56574 ####[facility] [place] [address], [place] GFR/1.73 sq M.predicted among blacks MDRD (S/P/Bld) [Vol rate/Area] mL/min/{1.73_m2} Normal >60 [facility] Comment on above: Order Comment: No: D o not add to previous draw Result Comment: Calc ulation may not be valid for patients over 70 years Performed By: #### 4 1000, , 33187 ####[facility] [place] [address], [place] GFR/1.73 sq M.predicted among non-blacks MDRD (S/P/Bld) [Vol rate/Area] mL/min/{1.73_m2} Normal >60 [facility] Comment on above: Order Comment: No: D o not add to previous draw Result Comment: Calc ulation may not be valid for patients over 70 years Performed By: #### 4 999, , 96763 ####[facility] [facility] [place] [address], [place] Glucose [Mass/Vol] 148 mg/dL High 70-100 [facility] Comment on above: Order Comment: No: D o not add to previous draw Performed By: #### 4 999, , 33181 ####[facility] [facility] [place] [address], [facility] Potassium [Moles/Vol] 3.6 mmol/L Normal 3.5-5.1 [facility] Comment on above: Order Comment: No: D o not add to previous draw Performed By: #### 4 1000, , 76321 ####[facility] [facility] [place] [address], [place] Sodium [Moles/Vol] 140 mmol/L Normal 136-145 [facility] Comment on above: Order Comment: No: D o not add to previous draw Performed By: #### 4 1000, , 85532 ####[facility] [facility].[address] Urea nitrogen [Mass/Vol] 19 mg/dL Normal 7-25 [facility] Comment on above: Order Comment: No: D o not add to previous draw Performed By: #### 4 1000, 48025, 44337 ####[facility] [facility].[address] CBC COMPLETE BLOOD COUNTon 10-30-2020 Erythrocyte distribution width (RBC) [Ratio] 14.6 % Normal 11.5-15.0 [facility] Comment on above: Order Comment: No: D o not add to previous draw Performed By: #### 5 0608 ####[facility] Hematocrit (Bld) [Volume fraction] 33.1 % Low 39.0-50.0 [facility] Comment on above: Order Comment: No: D o not add to previous draw Performed By: #### 5 0608 ####[facility] [facility].[address] Hemoglobin (Bld) [Mass/Vol] 10.7 g/dL Low 13.0-17.0 [facility] Comment on above: Order Comment: No: D o not add to previous draw Performed By: #### 5 0608 ####[facility] [facility].[address] MCH (RBC) [Entitic mass] 31.3 pg Normal 27.0-33.0 [facility] Comment on above: Order Comment: No: D o not add to previous draw Performed By: #### 5 0608 ####[facility] [facility].[address] MCHC (RBC) [Mass/Vol] 32.3 g/dL Normal 32.0-35.0 [facility] Comment on above: Order Comment: No: D o not add to previous draw Performed By: #### 5 0608 ####[facility] MCV (RBC) [Entitic vol] 96.8 fL Normal 82.0-98.0 [facility] Comment on above: Order Comment: No: D o not add to previous draw Performed By: #### 5 0608 ####[facility] [facility].[address] Nucleated RBC/100 WBC (Bld) [Ratio] 0 % Normal 0-0 [facility] Comment on above: Order Comment: No: D o not add to previous draw Performed By: #### 5 0608 ####[facility] [facility].[address] PLAT CNT 167 10*3/uL Normal 150-400 The [facility] Comment on above: Order Comment: No: D o not add to previous draw Performed By: #### 5 0608 ####[place] [id number] [address] RBC (Bld) [#/Vol] 3.42 10*6/uL Low 4.20-5.[address] [facility] Comment on above: Order Comment: No: D o not add to previous draw Performed By: #### 5 0608 ####[facility] [facility].[address] WBC (Bld) [#/Vol] 16.20 10*3/uL High 4.00-10.60 [facility] Comment on above: Order Comment: No: D o not add to previous draw Performed By: #### 5 0608 ####[facility] [place] [address].[address] MAGNESIUM BLOODon 08-29-2021 Magnesium [Mass/Vol] 1.8 mg/dL Low 1.9-2.7 [facility] Comment on above: Order Comment: No: D o not add to previous draw Performed By: #### 4 1000, 95815, 90914 ####[facility] [place] [address], [place] PHOSPHORUS BLOODon Phosphate [Mass/Vol] 3.1 mg/dL Normal 2.5-5.0 [facility] Comment on above: Order Comment: No: D o not add to previous draw Performed By: #### 4 1000, 23047, 93662 ####[facility] [place] [address], [place] POC GLUCOSE LABon 08-29-2021 Glucose [Mass/Vol] 187 mg/dL High 70-100 [facility] Comment on above: Performed By: #### 8 5499 ####[facility] [place] [address], [place] Glucose [Mass/Vol] 145 mg/dL High 70-100 [facility] Comment on above: Performed By: #### 8 5499 ####[facility] [place] [address], [place] Glucose [Mass/Vol] 142 mg/dL High 70-100 [facility] Comment on above: Performed By: #### 8 5499 ####[facility] [place] [address], [place] Glucose [Mass/Vol] 166 mg/dL High 70-100 [facility] Comment on above: Performed By: #### 8 5499 ####[facility] [place] [address], [place] Glucose [Mass/Vol] 164 mg/dL High 70-100 [facility] Comment on above: Performed By: #### 8 5499 ####[facility] [place] [address], [place] BASIC METABOLIC PANELon 12-2 Calcium [Mass/Vol] 7.8 mg/dL Low 8.6-10.3 [facility] Comment on above: Order Comment: No: D o not add to previous draw Performed By: #### 1 69, 44431 ####[facility] [place] [address], [facility] Chloride [Moles/Vol] 111 mmol/L High 98-107 [facility] Comment on above: Order Comment: No: D o not add to previous draw Performed By: #### 1 0, 75926 ####[facility] [place] [address], [facility] CO2 [Moles/Vol] 21 mmol/L Normal 21-31 The [facility] Comment on above: Order Comment: No: D o not add to previous draw Performed By: #### 1 69, 55840 ####[facility] [place] [address], [facility] Creatinine [Mass/Vol] 0.76 mg/dL Normal 0.70-1.30 [facility] Comment on above: Order Comment: No: D o not add to previous draw Performed By: #### 1 69, 16271 ####[facility] [place] [address], [facility] GFR/1.73 sq M.predicted among blacks MDRD (S/P/Bld) [Vol rate/Area] mL/min/{1.73_m2} Normal >60 [facility] Comment on above: Order Comment: No: D o not add to previous draw Result Comment: Calc ulation may not be valid for patients over 70 years Performed By: #### 1 69, 45849 ####[facility] [place] [address], [place] GFR/1.73 sq M.predicted among non-blacks MDRD (S/P/Bld) [Vol rate/Area] mL/min/{1.73_m2} Normal >60 [facility] Comment on above: Order Comment: No: D o not add to previous draw Result Comment: Calc ulation may not be valid for patients over 70 years Performed By: #### 1 69, 08926 ####[facility] [place] [address], [place] Glucose [Mass/Vol] 142 mg/dL High 70-100 [facility] Comment on above: Order Comment: No: D o not add to previous draw Performed By: #### 1 69, 56734 ####[facility] [place] [address], [place] Potassium [Moles/Vol] 3.9 mmol/L Normal 3.5-5.1 [facility] Comment on above: Order Comment: No: D o not add to previous draw Performed By: #### 1 69, 23868 ####[facility] [place] [address], [place] Sodium [Moles/Vol] 140 mmol/L Normal 136-145 [facility] Comment on above: Order Comment: No: D o not add to previous draw Performed By: #### 1 69, 13523 ####[facility] [facility] [place] [address], [facility] Urea nitrogen [Mass/Vol] 15 mg/dL Normal 7-25 [facility] Comment on above: Order Comment: No: D o not add to previous draw Performed By: #### 1 69, 77988 ####[facility] [facility] [place] [address], [facility] CBC COMPLETE BLOOD COUNTon 10-29-2020 Erythrocyte distribution width (RBC) [Ratio] 14.6 % Normal 11.5-15.0 [facility] Comment on above: Order Comment: No: D o not add to previous draw Performed By: #### 5 0608 ####[facility] Hematocrit (Bld) [Volume fraction] 31.8 % Low 39.0-50.0 [facility] Comment on above: Order Comment: No: D o not add to previous draw Performed By: #### 5 0608 ####[facility] [place] [address], [facility] Hemoglobin (Bld) [Mass/Vol] 10.5 g/dL Low 13.0-17.0 [facility] Comment on above: Order Comment: No: D o not add to previous draw Performed By: #### 5 0608 ####[facility] MCH (RBC) [Entitic mass] 31.6 pg Normal 27.0-33.0 [facility] Comment on above: Order Comment: No: D o not add to previous draw Performed By: #### 5 0608 ####[facility] MCHC (RBC) [Mass/Vol] 33.0 g/dL Normal 32.0-35.0 [facility] Comment on above: Order Comment: No: D o not add to previous draw Performed By: #### 5 0608 ####[facility] MCV (RBC) [Entitic vol] 95.8 fL Normal 82.0-98.0 [facility] Comment on above: Order Comment: No: D o not add to previous draw Performed By: #### 5 0608 ####[facility] [place] [address], [facility] Nucleated RBC/100 WBC (Bld) [Ratio] 0 % Normal 0-0 [facility] Comment on above: Order Comment: No: D o not add to previous draw Performed By: #### 5 0608 ####[facility] [place] [address], [facility] PLAT CNT 188 10*3/uL Normal 150-400 The [facility] Comment on above: Order Comment: No: D o not add to previous draw Performed By: #### 5 0608 ####[facility] [facility] [place] [address], [facility] RBC (Bld) [#/Vol] 3.32 10*6/uL Low 4.20-5.[address] [facility] Comment on above: Order Comment: No: D o not add to previous draw Performed By: #### 5 0608 ####[facility] [facility] [place] [address], [facility] WBC (Bld) [#/Vol] 14.06 10*3/uL High 4.00-10.60 [facility] Comment on above: Order Comment: No: D o not add to previous draw Performed By: #### 5 0608 ####[facility] [facility].[address] MAGNESIUM BLOODon 08-28-2021 Magnesium [Mass/Vol] 1.9 mg/dL Normal 1.9-2.7 [facility] Comment on above: Order Comment: No: D o not add to previous draw Performed By: #### 1 0070, 01504 ####[facility] [facility].[address] POC GLUCOSE LABon 08-28-2021 Glucose [Mass/Vol] 139 mg/dL High 70-100 [facility] Comment on above: Performed By: #### 8 5499 ####[facility] [facility].[address] BASIC METABOLIC PANELon 08-03 Calcium [Mass/Vol] 7.6 mg/dL Low 8.6-10.3 [facility] Comment on above: Order Comment: No: D o not add to previous draw Performed By: #### 1 0, 82560 ####[facility] [place] [address], [facility] Chloride [Moles/Vol] 105 mmol/L Normal 98-107 [facility] Comment on above: Order Comment: No: D o not add to previous draw Performed By: #### 1 0, 93211 ####[facility] [place] [address], [place] CO2 [Moles/Vol] 23 mmol/L Normal 21-31 The [facility] Comment on above: Order Comment: No: D o not add to previous draw Performed By: #### 1 0, 91314 ####[facility] [place] [address], [facility] Creatinine [Mass/Vol] 0.76 mg/dL Normal 0.70-1.30 [facility] Comment on above: Order Comment: No: D o not add to previous draw Performed By: #### 1 69, 70384 ####[facility] [place] [address], [place] GFR/1.73 sq M.predicted among blacks MDRD (S/P/Bld) [Vol rate/Area] mL/min/{1.73_m2} Normal >60 [facility] Comment on above: Order Comment: No: D o not add to previous draw Result Comment: Calc ulation may not be valid for patients over 70 years Performed By: #### 1 0, 26610 ####[facility] [place] [address], [place] GFR/1.73 sq M.predicted among non-blacks MDRD (S/P/Bld) [Vol rate/Area] mL/min/{1.73_m2} Normal >60 [facility] Comment on above: Order Comment: No: D o not add to previous draw Result Comment: Calc ulation may not be valid for patients over 70 years Performed By: #### 1 69, 89144 ####[facility] [place] [address], [facility] Glucose [Mass/Vol] 109 mg/dL High 70-100 [facility] Comment on above: Order Comment: No: D o not add to previous draw Performed By: #### 1 69, 15329 ####[facility] [place] [address], [facility] Potassium [Moles/Vol] 3.3 mmol/L Low 3.5-5.1 [facility] Comment on above: Order Comment: No: D o not add to previous draw Performed By: #### 1 69, 77425 ####[facility] [place] [address], [facility] Sodium [Moles/Vol] 137 mmol/L Normal 136-145 [facility] Comment on above: Order Comment: No: D o not add to previous draw Performed By: #### 1 69, 29322 ####[facility] [facility] [place] [place] [address], [facility] Urea nitrogen [Mass/Vol] 11 mg/dL Normal 7-25 [facility] Comment on above: Order Comment: No: D o not add to previous draw Performed By: #### 1 69, 42022 ####[facility] [facility].[address] CBC COMPLETE BLOOD COUNTon 10-28-2020 Erythrocyte distribution width (RBC) [Ratio] 14.5 % Normal 11.5-15.0 [facility] Comment on above: Order Comment: No: D o not add to previous draw Performed By: #### 5 0608 ####[facility] [place] [address], [facility] Hematocrit (Bld) [Volume fraction] 30.9 % Low 39.0-50.0 [facility] Comment on above: Order Comment: No: D o not add to previous draw Performed By: #### 5 0608 ####[facility] Hemoglobin (Bld) [Mass/Vol] 10.4 g/dL Low 13.0-17.0 [facility] Comment on above: Order Comment: No: D o not add to previous draw Performed By: #### 5 0608 ####[address] MCH (RBC) [Entitic mass] 31.6 pg Normal 27.0-33.0 [facility] Comment on above: Order Comment: No: D o not add to previous draw Performed By: #### 5 0608 ####[address] MCHC (RBC) [Mass/Vol] 33.7 g/dL Normal 32.0-35.0 [facility] Comment on above: Order Comment: No: D o not add to previous draw Performed By: #### 5 0608 ####[address] MCV (RBC) [Entitic vol] 93.9 fL Normal 82.0-98.0 [facility] Comment on above: Order Comment: No: D o not add to previous draw Performed By: #### 5 0608 ####[address] Nucleated RBC/100 WBC (Bld) [Ratio] 0 % Normal 0-0 [facility] Comment on above: Order Comment: No: D o not add to previous draw Performed By: #### 5 0608 ####[address] PLAT CNT 170 10*3/uL Normal 150-400 The [facility] Comment on above: Order Comment: No: D o not add to previous draw Performed By: #### 5 0608 ####[facility] [facility] [place] [address], [facility] RBC (Bld) [#/Vol] 3.29 10*6/uL Low 4.20-5.[address] [facility] Comment on above: Order Comment: No: D o not add to previous draw Performed By: #### 5 0608 ####[facility] [place] [address], [facility] WBC (Bld) [#/Vol] 14.05 10*3/uL High 4.00-10.60 [facility] Comment on above: Order Comment: No: D o not add to previous draw Performed By: #### 5 0608 ####[facility] [facility] [place] [address], [facility] MAGNESIUM BLOODon 08-27-2021 Magnesium [Mass/Vol] 1.9 mg/dL Normal 1.9-2.7 [facility] Comment on above: Order Comment: No: D o not add to previous draw Performed By: #### 1 0070, 70726 ####[facility] [facility] [place] [address], [facility] POC GLUCOSE LABon 08-27-2021 Glucose [Mass/Vol] 179 mg/dL High 70-100 [facility] Comment on above: Performed By: #### 8 5499 ####[facility] [facility] [place] [address], [facility] Glucose [Mass/Vol] 116 mg/dL High 70-100 [facility] Comment on above: Performed By: #### 8 5499 ####[facility] [facility] [id number], [facility] Glucose [Mass/Vol] 244 mg/dL High 70-100 [facility] Comment on above: Performed By: #### 8 5499 ####[facility] [place] [address], [facility] Glucose [Mass/Vol] 135 mg/dL High 70-100 [facility] Comment on above: Performed By: #### 8 5499 ####[facility] [place] [address], [facility] BASIC METABOLIC PANELon 12-2 Calcium [Mass/Vol] 7.9 mg/dL Low 8.6-10.3 [facility] Comment on above: Order Comment: No: D o not add to previous draw Performed By: #### 0 0071, 37445 ####[facility] [place] [address], [facility] Chloride [Moles/Vol] 102 mmol/L Normal 98-107 [facility] Comment on above: Order Comment: No: D o not add to previous draw Performed By: #### 0 0071, 57295 ####[facility] [place] [address], [facility] CO2 [Moles/Vol] 21 mmol/L Normal 21-31 The [facility] Comment on above: Order Comment: No: D o not add to previous draw Performed By: #### 0 0071, 52174 ####[facility] [place] [address], [facility] Creatinine [Mass/Vol] 0.82 mg/dL Normal 0.70-1.30 [facility] Comment on above: Order Comment: No: D o not add to previous draw Performed By: #### 0 0071, 67316 ####[facility] [place] [address], [facility] GFR/1.73 sq M.predicted among blacks MDRD (S/P/Bld) [Vol rate/Area] mL/min/{1.73_m2} Normal >60 [facility] Comment on above: Order Comment: No: D o not add to previous draw Result Comment: Calc ulation may not be valid for patients over 70 years Performed By: #### 0 0071, 31557 ####[facility] [facility] [place] [place] [address], [facility] GFR/1.73 sq M.predicted among non-blacks MDRD (S/P/Bld) [Vol rate/Area] mL/min/{1.73_m2} Normal >60 [facility] Comment on above: Order Comment: No: D o not add to previous draw Result Comment: Calc ulation may not be valid for patients over 70 years Performed By: #### 0 0071, 17256 ####[facility] [facility] [place] [place] [address], [facility] Glucose [Mass/Vol] 130 mg/dL High 70-100 [facility] Comment on above: Order Comment: No: D o not add to previous draw Performed By: #### 0 0071, 06767 ####[facility] [facility] [place] [address], [facility] Potassium [Moles/Vol] 3.8 mmol/L Normal 3.5-5.1 [facility] Comment on above: Order Comment: No: D o not add to previous draw Performed By: #### 0 0071, [id number] ####[facility] [facility] [place] [address], [facility] Sodium [Moles/Vol] 133 mmol/L Low 136-145 [facility] Comment on above: Order Comment: No: D o not add to previous draw Performed By: #### 0 0071, 94769 ####[facility] [place] [address], [place] Urea nitrogen [Mass/Vol] 10 mg/dL Normal 7-25 [facility] Comment on above: Order Comment: No: D o not add to previous draw Performed By: #### 0 0071, 86843 ####[facility] CBC COMPLETE BLOOD COUNTon 10-27-2020 Erythrocyte distribution width (RBC) [Ratio] 14.6 % Normal 11.5-15.0 [facility] Comment on above: Order Comment: No: D o not add to previous draw Performed By: #### 5 0608 ####[address] Hematocrit (Bld) [Volume fraction] 33.4 % Low 39.0-50.0 [facility] Comment on above: Order Comment: No: D o not add to previous draw Performed By: #### 5 0608 ####[address] Hemoglobin (Bld) [Mass/Vol] 11.2 g/dL Low 13.0-17.0 [facility] Comment on above: Order Comment: No: D o not add to previous draw Performed By: #### 5 0608 ####[address] MCH (RBC) [Entitic mass] 31.6 pg Normal 27.0-33.0 [facility] Comment on above: Order Comment: No: D o not add to previous draw Performed By: #### 5 0608 ####[address] MCHC (RBC) [Mass/Vol] 33.5 g/dL Normal 32.0-35.0 [facility] Comment on above: Order Comment: No: D o not add to previous draw Performed By: #### 5 0608 ####[address] MCV (RBC) [Entitic vol] 94.4 fL Normal 82.0-98.0 [facility] Comment on above: Order Comment: No: D o not add to previous draw Performed By: #### 5 0608 ####[facility] [facility] [place] [address], [facility] Nucleated RBC/100 WBC (Bld) [Ratio] 0 % Normal 0-0 [facility] Comment on above: Order Comment: No: D o not add to previous draw Performed By: #### 5 0608 ####[facility] [facility] [place] [address], [facility] PLAT CNT 179 10*3/uL Normal 150-400 The [facility] Comment on above: Order Comment: No: D o not add to previous draw Performed By: #### 5 0608 ####[facility] [facility] [place] [address], [facility] RBC (Bld) [#/Vol] 3.54 10*6/uL Low 4.20-5.70 [facility] Comment on above: Order Comment: No: D o not add to previous draw Performed By: #### 5 0608 ####[facility] [facility] [place] [address], [facility] WBC (Bld) [#/Vol] 15.72 10*3/uL High 4.00-10.60 [facility] Comment on above: Order Comment: No: D o not add to previous draw Performed By: #### 5 0608 ####[facility] [facility].[address] MAGNESIUM BLOODon 08-26-2021 Magnesium [Mass/Vol] 1.8 mg/dL Low 1.9-2.7 [facility] Comment on above: Order Comment: No: D o not add to previous draw Performed By: #### 0 0071, 23021 ####[facility] [facility] [place] [address], [facility] POC GLUCOSE LABon 08-26-2021 Glucose [Mass/Vol] 203 mg/dL High 70-100 [facility] Comment on above: Performed By: #### 8 5499 ####[facility] [place] [address], [place] Glucose [Mass/Vol] 123 mg/dL High 70-100 [facility] Comment on above: Performed By: #### 8 5499 ####[facility] [place] [address], [place] Glucose [Mass/Vol] 171 mg/dL High 70-100 [facility] Comment on above: Performed By: #### 8 5499 ####[facility] [place] [address], [place] Glucose [Mass/Vol] 138 mg/dL High 70-100 [facility] Comment on above: Performed By: #### 8 5499 ####[facility] [place] [address], [place] BASIC METABOLIC PANELon 12-2 Calcium [Mass/Vol] 7.7 mg/dL Low 8.6-10.3 [facility] Comment on above: Order Comment: No: D o not add to previous draw Performed By: #### 4 999, 36873, 69968 ####[facility] [place] [address], [place] Chloride [Moles/Vol] 101 mmol/L Normal 98-107 [facility] Comment on above: Order Comment: No: D o not add to previous draw Performed By: #### 4 999, 55101, 70510 ####[facility] [place] [address], [place] CO2 [Moles/Vol] 24 mmol/L Normal 21-31 The [facility] Comment on above: Order Comment: No: D o not add to previous draw Performed By: #### 4 999, 26300, 77985 ####[facility] [place] [address], [place] Creatinine [Mass/Vol] 0.88 mg/dL Normal 0.70-1.30 [facility] Comment on above: Order Comment: No: D o not add to previous draw Performed By: #### 4 1000, 09046, 80573 ####[facility] [place] [address], [facility] GFR/1.73 sq M.predicted among blacks MDRD (S/P/Bld) [Vol rate/Area] mL/min/{1.73_m2} Normal >60 [facility] Comment on above: Order Comment: No: D o not add to previous draw Result Comment: Calc ulation may not be valid for patients over 70 years Performed By: #### 4 1000, 07693, 96747 ####[facility] [place] [address], [facility] GFR/1.73 sq M.predicted among non-blacks MDRD (S/P/Bld) [Vol rate/Area] mL/min/{1.73_m2} Normal >60 [facility] Comment on above: Order Comment: No: D o not add to previous draw Result Comment: Calc ulation may not be valid for patients over 70 years Performed By: #### 4 1000, 98969, 04179 ####[facility] [place] [address], [facility] Glucose [Mass/Vol] 141 mg/dL High 70-100 [facility] Comment on above: Order Comment: No: D o not add to previous draw Performed By: #### 4 1000, 95808, 19623 ####[facility] [place] [address], [place] Potassium [Moles/Vol] 3.9 mmol/L Normal 3.5-5.1 [facility] Comment on above: Order Comment: No: D o not add to previous draw Performed By: #### 4 1000, 52626, 72352 ####[facility] Sodium [Moles/Vol] 131 mmol/L Low 136-145 [facility] Comment on above: Order Comment: No: D o not add to previous draw Performed By: #### 4 1000, 97820, 36988 ####[facility] Urea nitrogen [Mass/Vol] 11 mg/dL Normal 7-25 [facility] Comment on above: Order Comment: No: D o not add to previous draw Performed By: #### 4 1000, 68161, 37470 ####[facility] CBC COMPLETE BLOOD COUNTon 10-26-2020 Erythrocyte distribution width (RBC) [Ratio] 14.6 % Normal 11.5-15.0 [facility] Comment on above: Order Comment: No: D o not add to previous draw Performed By: #### 5 0608 ####[facility] Hematocrit (Bld) [Volume fraction] 31.9 % Low 39.0-50.0 [facility] Comment on above: Order Comment: No: D o not add to previous draw Performed By: #### 5 0608 ####[facility] Hemoglobin (Bld) [Mass/Vol] 10.8 g/dL Low 13.0-17.0 [facility] Comment on above: Order Comment: No: D o not add to previous draw Performed By: #### 5 0608 ####[facility] [place] [address], [facility] MCH (RBC) [Entitic mass] 32.0 pg Normal 27.0-33.0 [facility] Comment on above: Order Comment: No: D o not add to previous draw Performed By: #### 5 0608 ####[facility] [facility] [place] [place] [address], [facility] MCHC (RBC) [Mass/Vol] 33.9 g/dL Normal 32.0-35.0 [facility] Comment on above: Order Comment: No: D o not add to previous draw Performed By: #### 5 0608 ####[facility] [facility] [place] [address], [facility] MCV (RBC) [Entitic vol] 94.4 fL Normal 82.0-98.0 [facility] Comment on above: Order Comment: No: D o not add to previous draw Performed By: #### 5 0608 ####[facility] Nucleated RBC/100 WBC (Bld) [Ratio] 0 % Normal 0-0 [facility] Comment on above: Order Comment: No: D o not add to previous draw Performed By: #### 5 0608 ####[facility] [place] [address], [facility] PLAT CNT 163 10*3/uL Normal 150-400 The [facility] Comment on above: Order Comment: No: D o not add to previous draw Performed By: #### 5 0608 ####[facility] [facility] [place] [address], [facility] RBC (Bld) [#/Vol] 3.38 10*6/uL Low 4.20-5.[address] [facility] Comment on above: Order Comment: No: D o not add to previous draw Performed By: #### 5 0608 ####[facility] [facility] [place] [address], [facility] WBC (Bld) [#/Vol] 13.02 10*3/uL High 4.00-10.60 [facility] Comment on above: Order Comment: No: D o not add to previous draw Performed By: #### 5 0608 ####[facility] [place] [address], [place] MAGNESIUM BLOODon 08-25-2021 Magnesium [Mass/Vol] 1.7 mg/dL Low 1.9-2.7 [facility] Comment on above: Order Comment: No: D o not add to previous draw Performed By: #### 4 1000, 76623, 61295 ####[facility] [place] [address], [place] PHOSPHORUS BLOODon Phosphate [Mass/Vol] 3.8 mg/dL Normal 2.5-5.0 [facility] Comment on above: Order Comment: No: D o not add to previous draw Performed By: #### 4 1000, 25831, 95636 ####[facility] [place] [address], [place] POC GLUCOSE LABon 08-25-2021 Glucose [Mass/Vol] 133 mg/dL High 70-100 [facility] Comment on above: Performed By: #### 8 5499 ####[facility] [place] [address], [place] Glucose [Mass/Vol] 135 mg/dL High 70-100 [facility] Comment on above: Performed By: #### 8 5499 ####[facility] [place] [address], [place] Glucose [Mass/Vol] 135 mg/dL High 70-100 [facility] Comment on above: Performed By: #### 8 5499 ####[facility] [place] [address], [place] Glucose [Mass/Vol] 155 mg/dL High 70-100 [facility] Comment on above: Performed By: #### 8 5499 ####[facility] [place] [address], [place] BASIC METABOLIC PANELon 12-2 Calcium [Mass/Vol] 7.9 mg/dL Low 8.6-10.3 [facility] Comment on above: Order Comment: No: D o not add to previous drawMissed draw at 420amPT refused PATTY Cameron notified Performed By: #### 1 0070, 82164, 55462 ####[facility] [place] [address], [facility] Chloride [Moles/Vol] 100 mmol/L Normal 98-107 The [facility] Comment on above: Order Comment: No: D o not add to previous drawMissed draw at 420amPT refused PATTY Cameron notified Performed By: #### 1 0070, 83883, 38867 ####[facility] [place] [address], [facility] CO2 [Moles/Vol] 26 mmol/L Normal 21-31 The [facility] Comment on above: Order Comment: No: D o not add to previous drawMissed draw at 420amPT refused PATTY Cameron notified Performed By: #### 1 0070, 54946, 21573 ####[facility] [facility] [place] [address], [facility] Creatinine [Mass/Vol] 0.86 mg/dL Normal 0.70-1.30 [facility] Comment on above: Order Comment: No: D o not add to previous drawMissed draw at 420amPT refused PATTY Cameron notified Performed By: #### 1 0070, 50429, 51322 ####[facility] [facility] [place] [address], [facility] GFR/1.73 sq M.predicted among blacks MDRD (S/P/Bld) [Vol rate/Area] mL/min/{1.73_m2} Normal >60 The [facility] Comment on above: Order Comment: No: D o not add to previous drawMissed draw at 420amPT refused PATTY Cameron notified Result Comment: Calc ulation may not be valid for patients over 70 years Performed By: #### 1 0070, 31654, 98660 ####[facility] [facility] [place] [address], [facility] GFR/1.73 sq M.predicted among non-blacks MDRD (S/P/Bld) [Vol rate/Area] mL/min/{1.73_m2} Normal >60 The [facility] Comment on above: Order Comment: No: D o not add to previous drawMissed draw at 420amPT refused PATTY Cameron notified Result Comment: Calc ulation may not be valid for patients over 70 years Performed By: #### 1 0070, 64112, 47271 ####[facility] [facility] [place] [address], [facility] Glucose [Mass/Vol] 127 mg/dL High 70-100 [facility] Comment on above: Order Comment: No: D o not add to previous drawMissed draw at 420amPT refused PATTY Cameron notified Performed By: #### 1 0, 18399, 70301 ####[facility] [facility] [place] [address], [facility] Potassium [Moles/Vol] 4.3 mmol/L Normal 3.5-5.1 [facility] Comment on above: Order Comment: No: D o not add to previous drawMissed draw at 420amPT refused PATTY Cameron notified Performed By: #### 1 0, 82391, 65103 ####[facility] [facility] [place] [address], [facility] Sodium [Moles/Vol] 132 mmol/L Low 136-145 [facility] Comment on above: Order Comment: No: D o not add to previous drawMissed draw at 420amPT refused PATTY Cameron notified Performed By: #### 1 0, 64725, 54044 ####[facility] [facility] [place] [place] [address], [place] Urea nitrogen [Mass/Vol] 10 mg/dL Normal 7-25 [facility] Comment on above: Order Comment: No: D o not add to previous drawMissed draw at 420amPT refused PATTY Cameron notified Performed By: #### 1 0070, 34828, 21972 ####[facility] CBC W/DIFFon 08-24-2021 ABS IMM GRANS 0.1 10*3/uL Normal 0.0-0.2 The [facility] Comment on above: Order Comment: No: D o not add to previous drawMissed draw at 420amPT refused PATTY Cameron notified Performed By: #### 5 0103 ####[facility] ABS NEUTROPHILS 4.5 10*3/uL Normal 1.6-7.6 The [facility] Comment on above: Order Comment: No: D o not add to previous drawMissed draw at 420amPT refused PATTY Cameron notified Performed By: #### 5 0103 ####[facility] Basophils (Bld) [#/Vol] 0.0 10*3/uL Normal 0.0-0.2 [facility] Comment on above: Order Comment: No: D o not add to previous drawMissed draw at 420amPT refused PATTY Cameron notified Performed By: #### 5 0103 ####[facility] Basophils/100 WBC (Bld) 0.1 % Normal 0.0-1.0 [facility] Comment on above: Order Comment: No: D o not add to previous drawMissed draw at 420amPT refused PATTY Cameron notified Performed By: #### 5 0103 ####[facility] [place] [address], [facility] Eosinophils (Bld) [#/Vol] 0.0 10*3/uL Normal 0.0-0.5 [facility] Comment on above: Order Comment: No: D o not add to previous drawMissed draw at 420amPT refused PATTY Cameron notified Performed By: #### 5 0103 ####[facility] [place] [address], [facility] Eosinophils/100 WBC (Bld) 0.1 % Normal 0.0-6.0 [facility] Comment on above: Order Comment: No: D o not add to previous drawMissed draw at 420amPT refused PATTY Cameron notified Performed By: #### 5 0103 ####[facility] Erythrocyte distribution width (RBC) [Ratio] 14.7 % Normal 11.5-15.0 [facility] Comment on above: Order Comment: No: D o not add to previous drawMissed draw at 420amPT refused PATTY Cameron notified Performed By: #### 5 0103 ####[facility] [place], [place] [id number] [place] [address] Hematocrit (Bld) [Volume fraction] 35.4 % Low 39.0-50.0 [facility] Comment on above: Order Comment: No: D o not add to previous drawMissed draw at 420amPT refused PATTY Cameron notified Performed By: #### 5 0103 ####[facility] [facility], [place] [address] [place] [address] Hemoglobin (Bld) [Mass/Vol] 11.6 g/dL Low 13.0-17.0 [facility] Comment on above: Order Comment: No: D o not add to previous drawMissed draw at 420amPT refused PATTY Cameron notified Performed By: #### 5 0103 ####[facility] [place] [address], [facility] IMMATURE GRANS 0.3 % Normal 0.0-1.0 [facility] Comment on above: Order Comment: No: D o not add to previous drawMissed draw at 420amPT refused PATTY Cameron notified Performed By: #### 5 0103 ####[facility] Lymphocytes (Bld) [#/Vol] 10.1 10*3/uL High 1.2-4.0 [facility] Comment on above: Order Comment: No: D o not add to previous drawMissed draw at 420amPT refused PATTY Cameron notified Performed By: #### 5 0103 ####[facility] [place] [address] Lymphocytes/100 WBC (Bld) 67.1 % High 20.0-45.0 [facility] Comment on above: Order Comment: No: D o not add to previous drawMissed draw at 420amPT refused PATTY Cameron notified Performed By: #### 5 0103 ####[facility] [place] [address] MCH (RBC) [Entitic mass] 32.0 pg Normal 27.0-33.0 [facility] Comment on above: Order Comment: No: D o not add to previous drawMissed draw at 420amPT refused PATTY Cameron notified Performed By: #### 5 0103 ####[facility] [place] [address] MCHC (RBC) [Mass/Vol] 32.8 g/dL Normal 32.0-35.0 [facility] Comment on above: Order Comment: No: D o not add to previous drawMissed draw at 420amPT refused PATTY Cameron notified Performed By: #### 5 0103 ####[address] MCV (RBC) [Entitic vol] 97.5 fL Normal 82.0-98.0 [facility] Comment on above: Order Comment: No: D o not add to previous drawMissed draw at 420amPT refused PATTY Cameron notified Performed By: #### 5 0103 ####[facility] [facility] [place] [address], [facility] Monocytes (Bld) [#/Vol] 0.4 10*3/uL Normal 0.1-1.0 [facility] Comment on above: Order Comment: No: D o not add to previous drawMissed draw at 420amPT refused PATTY Cameron notified Performed By: #### 5 0103 ####[facility] [facility] [place] [address], [facility] MONOS 2.6 % Low 5.0-12.0 [facility] Comment on above: Order Comment: No: D o not add to previous drawMissed draw at 420amPT refused PATTY Cameron notified Performed By: #### 5 102 ####[facility] [facility].[address] Neutrophils/100 WBC (Bld) 29.8 % Low 40.0-72.0 [facility] Comment on above: Order Comment: No: D o not add to previous drawMissed draw at 420amPT refused PATTY Cameron notified Performed By: #### 5 3 ####[facility] [facility].[address] Nucleated RBC/100 WBC (Bld) [Ratio] 0 % Normal 0-0 [facility] Comment on above: Order Comment: No: D o not add to previous drawMissed draw at 420amPT refused PATTY Cameron notified Performed By: #### 5 3 ####[facility] [facility] [place] [address], [facility] PLAT CNT 175 10*3/uL Normal 150-400 The [facility] Comment on above: Order Comment: No: D o not add to previous drawMissed draw at 420amPT refused PATTY Cameron notified Performed By: #### 5 3 ####[facility] [place] [address], [facility] RBC (Bld) [#/Vol] 3.63 10*6/uL Low 4.20-5.70 [facility] Comment on above: Order Comment: No: D o not add to previous drawMissed draw at 420amPT refused PATTY Cameron notified Performed By: #### 5 0103 ####[id number] [place] [address] SMUDGE CELLS MANY Normal The [facility] Comment on above: Order Comment: No: D o not add to previous drawMissed draw at 420amPT refused PATTY Cameron notified Performed By: #### 5 0103 ####[place] [address], [facility] WBC (Bld) [#/Vol] 15.09 10*3/uL High 4.00-10.60 [facility] Comment on above: Order Comment: No: D o not add to previous drawMissed draw at 420amPT refused PATTY Cameron notified Performed By: #### 5 0103 ####[place] [id number] [address] MAGNESIUM BLOODon 08-24-2021 Magnesium [Mass/Vol] 1.8 mg/dL Low 1.9-2.7 [facility] Comment on above: Order Comment: No: D o not add to previous drawMissed draw at 420amPT refused PATTY Cameron notified Performed By: #### 1 0, 33601, 91467 ####[facility] [place] [address], [facility] PHOSPHORUS BLOODon Phosphate [Mass/Vol] 3.8 mg/dL Normal 2.5-5.0 The [facility] Comment on above: Order Comment: No: D o not add to previous drawMissed draw at 420amPT refused PATTY Cameron notified Performed By: #### 1 0, 80676, 74862 ####[facility] [place] [address], [facility] POC GLUCOSE LABon 08-24-2021 Glucose [Mass/Vol] 208 mg/dL High 70-100 [facility] Comment on above: Performed By: #### 8 5499 ####[facility] [place] [address], [place] Glucose [Mass/Vol] 146 mg/dL High 70-100 [facility] Comment on above: Performed By: #### 8 5499 ####[facility] [facility] [place] [place] [address], [place] Glucose [Mass/Vol] 162 mg/dL High 70-100 [facility] Comment on above: Performed By: #### 8 5499 ####[facility] [facility] [place] [place] [address], [place] Glucose [Mass/Vol] 148 mg/dL High 70-100 [facility] Comment on above: Performed By: #### 8 5499 ####[facility] [facility] [place] [address], [facility] POC SARS COV2 ANTIGEN NEGATI VEon 08-24-2021 POC SARS COV2 ANTIGEN NEG Negative Normal NEGATIVE The [facility] Comment on above: Result Comment: Nega [...] of clinicalsigns and symptoms consistent with COVID-19.The [employer] COVID-19 Ag Card is a lateral flow immunoassay intended forthe qualitative detection of nucleocapsid protein antigen [id number] in direct nasal swabs from individuals within [...] Certificate ofAccreditation. Performed By: #### 3 1977 ####[place] [id number] [address] BASIC METABOLIC PANELon 12-2 Calcium [Mass/Vol] 7.8 mg/dL Low 8.6-10.3 [place] [facility] Comment on above: Order Comment: No: D o not add to previous draw Performed By: #### 1 69, 10946 ####[id number] [place] [address], [facility] Chloride [Moles/Vol] 104 mmol/L Normal 98-107 [facility] Comment on above: Order Comment: No: D o not add to previous draw Performed By: #### 1 69, 61431 ####[address] [place] [address], [facility] CO2 [Moles/Vol] 24 mmol/L Normal 21-31 The [facility] Comment on above: Order Comment: No: D o not add to previous draw Performed By: #### 1 69, 87461 ####[address] [place] [address], [facility] Creatinine [Mass/Vol] 0.91 mg/dL Normal 0.70-1.30 [facility] Comment on above: Order Comment: No: D o not add to previous draw Performed By: #### 1 69, 47666 ####[address] [place] [address], [facility] GFR/1.73 sq M.predicted among blacks MDRD (S/P/Bld) [Vol rate/Area] mL/min/{1.73_m2} Normal >60 [facility] Comment on above: Order Comment: No: D o not add to previous draw Result Comment: Calc ulation may not be valid for patients over 70 years Performed By: #### 1 0, 44192 ####[facility] [facility] [place] [address], [facility] GFR/1.73 sq M.predicted among non-blacks MDRD (S/P/Bld) [Vol rate/Area] mL/min/{1.73_m2} Normal >60 [facility] Comment on above: Order Comment: No: D o not add to previous draw Result Comment: Calc ulation may not be valid for patients over 70 years Performed By: #### 1 0, 50267 ####[facility] [facility] [place] [address], [facility] Glucose [Mass/Vol] 162 mg/dL High 70-100 [facility] Comment on above: Order Comment: No: D o not add to previous draw Performed By: #### 1 69, 76328 ####[facility] [facility] [place] [address], [facility] Potassium [Moles/Vol] 3.9 mmol/L Normal 3.5-5.1 [facility] Comment on above: Order Comment: No: D o not add to previous draw Performed By: #### 1 69, 86451 ####[facility] [facility] [place] [place] [address], [place] Sodium [Moles/Vol] 134 mmol/L Low 136-145 [facility] Comment on above: Order Comment: No: D o not add to previous draw Performed By: #### 1 69, 04556 ####[facility] [place] [address], [place] Urea nitrogen [Mass/Vol] 7 mg/dL Normal 7-25 [facility] Comment on above: Order Comment: No: D o not add to previous draw Performed By: #### 1 0070, 58931 ####[facility] CBC COMPLETE BLOOD COUNTon 10-24-2020 Erythrocyte distribution width (RBC) [Ratio] 14.7 % Normal 11.5-15.0 [facility] Comment on above: Order Comment: No: D o not add to previous draw Performed By: #### 5 0608 ####[facility] Hematocrit (Bld) [Volume fraction] 32.6 % Low 39.0-50.0 [facility] Comment on above: Order Comment: No: D o not add to previous draw Performed By: #### 5 0608 ####[address] Hemoglobin (Bld) [Mass/Vol] 10.8 g/dL Low 13.0-17.0 [facility] Comment on above: Order Comment: No: D o not add to previous draw Performed By: #### 5 0608 ####[address] MCH (RBC) [Entitic mass] 31.4 pg Normal 27.0-33.0 [facility] Comment on above: Order Comment: No: D o not add to previous draw Performed By: #### 5 0608 ####[facility] [place] [address] MCHC (RBC) [Mass/Vol] 33.1 g/dL Normal 32.0-35.0 [facility] Comment on above: Order Comment: No: D o not add to previous draw Performed By: #### 5 0608 ####[address] MCV (RBC) [Entitic vol] 94.8 fL Normal 82.0-98.0 [facility] Comment on above: Order Comment: No: D o not add to previous draw Performed By: #### 5 0608 ####[facility] [facility] [place] [address], [facility] Nucleated RBC/100 WBC (Bld) [Ratio] 0 % Normal 0-0 [facility] Comment on above: Order Comment: No: D o not add to previous draw Performed By: #### 5 0608 ####[facility] [facility] [place] [address], [facility] PLAT CNT 147 10*3/uL Low 150-400 The [facility] Comment on above: Order Comment: No: D o not add to previous draw Performed By: #### 5 0608 ####[facility] [facility] [place] [address], [facility] RBC (Bld) [#/Vol] 3.44 10*6/uL Low 4.20-5.[address] [facility] Comment on above: Order Comment: No: D o not add to previous draw Performed By: #### 5 0608 ####[facility] [facility] [place] [address], [facility] WBC (Bld) [#/Vol] 13.68 10*3/uL High 4.00-10.60 [facility] Comment on above: Order Comment: No: D o not add to previous draw Performed By: #### 5 0608 ####[facility] [facility] [place] [address], [facility] MAGNESIUM BLOODon 08-23-2021 Magnesium [Mass/Vol] 1.6 mg/dL Low 1.9-2.7 [facility] Comment on above: Order Comment: No: D o not add to previous draw Performed By: #### 1 0070, 60436 ####[facility] [facility] [place] [address], [facility] POC GLUCOSE LABon 08-23-2021 Glucose [Mass/Vol] 156 mg/dL High 70-100 [facility] Comment on above: Performed By: #### 8 5499 ####[facility] [facility] [place] [place] [address], [place] Glucose [Mass/Vol] 111 mg/dL High 70-100 [facility] Comment on above: Performed By: #### 8 5499 ####[facility] [facility] [place] [place] [address], [place] Glucose [Mass/Vol] 181 mg/dL High 70-100 [facility] Comment on above: Performed By: #### 8 5499 ####[facility] [facility] [place] [place] [address], [place] Glucose [Mass/Vol] 167 mg/dL High 70-100 [facility] Comment on above: Performed By: #### 8 5499 ####[facility] [facility] [place] [address], [facility] *C DIFF DNA AMPLIFICATIONon 08-22-2021 *C DIFF DNA AMPLIFICATION Clinical Report: (D) Specimen: [id number] Collected: 08/22/2021 16:41 Status: Final Last Updated: 08/22/2021 18:57 (1) No: Do not add to previous draw CDT DNA: (Final) Negative Normal [facility] Comment on above: Order Comment: No: D o not add to previous draw Performed By: #### 3 0622 ####[facility] [facility] [place] [address], [facility] BASIC METABOLIC PANELon 2 Calcium [Mass/Vol] 8.2 mg/dL Low 8.6-10.3 [facility] Comment on above: Order Comment: No: D o not add to previous draw Performed By: #### 1 0070, 10071 ####[facility] [facility].[place] [id number], [facility] Chloride [Moles/Vol] 104 mmol/L Normal 98-107 [facility] Comment on above: Order Comment: No: D o not add to previous draw Performed By: #### 1 69, 52754 ####[facility] [place] [address], [place] CO2 [Moles/Vol] 21 mmol/L Normal 21-31 [facility] Comment on above: Order Comment: No: D o not add to previous draw Performed By: #### 1 69, 80410 ####[facility] [place] [address], [facility] Creatinine [Mass/Vol] 0.92 mg/dL Normal 0.70-1.30 [facility] Comment on above: Order Comment: No: D o not add to previous draw Performed By: #### 1 69, 87528 ####[facility] [place] [address], [facility] GFR/1.73 sq M.predicted among blacks MDRD (S/P/Bld) [Vol rate/Area] mL/min/{1.73_m2} Normal >60 [facility] Comment on above: Order Comment: No: D o not add to previous draw Result Comment: Calc ulation may not be valid for patients over 70 years Performed By: #### 1 69, 29553 ####[facility] [place] [address], [facility] GFR/1.73 sq M.predicted among non-blacks MDRD (S/P/Bld) [Vol rate/Area] mL/min/{1.73_m2} Normal >60 [facility] Comment on above: Order Comment: No: D o not add to previous draw Result Comment: Calc ulation may not be valid for patients over 70 years Performed By: #### 1 69, 89256 ####[facility] [place] [address], [place] Glucose [Mass/Vol] 179 mg/dL High 70-100 [facility] Comment on above: Order Comment: No: D o not add to previous draw Performed By: #### 1 69, 48033 ####[facility] Potassium [Moles/Vol] 4.4 mmol/L Normal 3.5-5.1 [facility] Comment on above: Order Comment: No: D o not add to previous draw Performed By: #### 1 69, 16631 ####[facility] Sodium [Moles/Vol] 134 mmol/L Low 136-145 [facility] Comment on above: Order Comment: No: D o not add to previous draw Performed By: #### 1 69, 12574 ####[facility] Urea nitrogen [Mass/Vol] 9 mg/dL Normal 7-25 [facility] Comment on above: Order Comment: No: D o not add to previous draw Performed By: #### 1 69, 71944 ####[facility] [facility].[address] CBC COMPLETE BLOOD COUNTon 10-23-2020 Erythrocyte distribution width (RBC) [Ratio] 14.7 % Normal 11.5-15.0 [facility] Comment on above: Order Comment: No: D o not add to previous draw Performed By: #### 5 08 ####[facility] Hematocrit (Bld) [Volume fraction] 36.8 % Low 39.0-50.0 [facility] Comment on above: Order Comment: No: D o not add to previous draw Performed By: #### 5 0608 ####[facility] Hemoglobin (Bld) [Mass/Vol] 12.4 g/dL Low 13.0-17.0 [facility] Comment on above: Order Comment: No: D o not add to previous draw Performed By: #### 5 0608 ####[facility] MCH (RBC) [Entitic mass] 32.3 pg Normal 27.0-33.0 [facility] Comment on above: Order Comment: No: D o not add to previous draw Performed By: #### 5 0608 ####[facility] [place] [address] MCHC (RBC) [Mass/Vol] 33.7 g/dL Normal 32.0-35.0 [facility] Comment on above: Order Comment: No: D o not add to previous draw Performed By: #### 5 0608 ####[facility] MCV (RBC) [Entitic vol] 95.8 fL Normal 82.0-98.0 [facility] Comment on above: Order Comment: No: D o not add to previous draw Performed By: #### 5 0608 ####[address] Nucleated RBC/100 WBC (Bld) [Ratio] 0 % Normal 0-0 [facility] Comment on above: Order Comment: No: D o not add to previous draw Performed By: #### 5 0608 ####[facility] [place] [address] PLAT CNT 176 10*3/uL Normal 150-400 [facility] Comment on above: Order Comment: No: D o not add to previous draw Performed By: #### 5 0608 ####[address] RBC (Bld) [#/Vol] 3.84 10*6/uL Low 4.20-5.[address] [facility] Comment on above: Order Comment: No: D o not add to previous draw Performed By: #### 5 0608 ####[facility] [place] [address], [facility] WBC (Bld) [#/Vol] 17.17 10*3/uL High 4.00-10.60 [facility] Comment on above: Order Comment: No: D o not add to previous draw Performed By: #### 5 0608 ####[facility] [facility] [place] [address], [facility] CT ABDOMEN AND PELVIS W ORAL CONTRASTon 08-22-2021 CT ABDOMEN AND PELVIS W ORAL CONTRAST Normal [facility] Comment on above: Order Comment: Fluid Collection MAGNESIUM BLOODon 08-22-2021 Magnesium [Mass/Vol] 1.9 mg/dL Normal 1.9-2.7 [facility] Comment on above: Order Comment: No: D o not add to previous draw Performed By: #### 1 0070, 56891 ####[facility] [facility] [place] [address], [facility] POC GLUCOSE LABon 08-22-2021 Glucose [Mass/Vol] 119 mg/dL High 70-100 [facility] Comment on above: Performed By: #### 8 5499 ####[facility] [facility] [place] [place] [address], [facility] Glucose [Mass/Vol] 180 mg/dL High 70-100 [facility] Comment on above: Performed By: #### 8 5499 ####[facility] [id number], [facility] Glucose [Mass/Vol] 146 mg/dL High 70-100 [facility] Comment on above: Performed By: #### 8 5499 ####[facility] [place] [address], [facility] Glucose [Mass/Vol] 177 mg/dL High 70-100 [facility] Comment on above: Performed By: #### 8 5499 ####[facility] [place] [address], [facility] BASIC METABOLIC PANELon 12-2 0-2020 Calcium [Mass/Vol] 8.0 mg/dL Low 8.6-10.3 [facility] Comment on above: Order Comment: No: D o not add to previous draw Performed By: #### 0 0071, 37466, 15522 ####[facility] [facility] [place] [place] [address], [facility] Chloride [Moles/Vol] 102 mmol/L Normal 98-107 [facility] Comment on above: Order Comment: No: D o not add to previous draw Performed By: #### 0 0071, 11088, 26780 ####[facility] [facility] [place] [place] [address], [facility] CO2 [Moles/Vol] 23 mmol/L Normal 21-31 [facility] Comment on above: Order Comment: No: D o not add to previous draw Performed By: #### 0 0071, 94429, 27277 ####[facility] [facility] [place] [place] [address], [facility] Creatinine [Mass/Vol] 0.89 mg/dL Normal 0.70-1.30 [facility] Comment on above: Order Comment: No: D o not add to previous draw Performed By: #### 0 0071, 91409, 87734 ####[facility] [facility] [place] [address], [place] GFR/1.73 sq M.predicted among blacks MDRD (S/P/Bld) [Vol rate/Area] mL/min/{1.73_m2} Normal >60 [facility] Comment on above: Order Comment: No: D o not add to previous draw Result Comment: Calc ulation may not be valid for patients over 70 years Performed By: #### 0 0071, 11622, 16949 ####[facility] [facility] [place] [address], [facility] GFR/1.73 sq M.predicted among non-blacks MDRD (S/P/Bld) [Vol rate/Area] mL/min/{1.73_m2} Normal >60 [facility] Comment on above: Order Comment: No: D o not add to previous draw Result Comment: Calc ulation may not be valid for patients over 70 years Performed By: #### 0 0071, 99952, 21134 ####[facility] [facility] [place] [address], [facility] Glucose [Mass/Vol] 200 mg/dL High 70-100 [facility] Comment on above: Order Comment: No: D o not add to previous draw Performed By: #### 0 0071, 73464, 20068 ####[facility] [facility] [place] [place] [address], [facility] Potassium [Moles/Vol] 4.4 mmol/L Normal 3.5-5.1 [facility] Comment on above: Order Comment: No: D o not add to previous draw Performed By: #### 0 0071, 17972, 59678 ####[facility] [facility] [place] [place] [address], [facility] Sodium [Moles/Vol] 132 mmol/L Low 136-145 [facility] Comment on above: Order Comment: No: D o not add to previous draw Performed By: #### 0 0071, 08972, 32838 ####[facility] [place] [address], [place] Urea nitrogen [Mass/Vol] 10 mg/dL Normal 7-25 [facility] Comment on above: Order Comment: No: D o not add to previous draw Performed By: #### 0 0071, 63710, 97076 ####[facility] [facility].[address] CBC COMPLETE BLOOD COUNTon 10-22-2020 Erythrocyte distribution width (RBC) [Ratio] 14.6 % Normal 11.5-15.0 [facility] Comment on above: Order Comment: No: D o not add to previous draw Performed By: #### 5 0608 ####[facility] Hematocrit (Bld) [Volume fraction] 34.1 % Low 39.0-50.0 [facility] Comment on above: Order Comment: No: D o not add to previous draw Performed By: #### 5 0608 ####[place] [id number] Hemoglobin (Bld) [Mass/Vol] 11.5 g/dL Low 13.0-17.0 [facility] Comment on above: Order Comment: No: D o not add to previous draw Performed By: #### 5 0608 ####[place] [address] [facility].[address] MCH (RBC) [Entitic mass] 32.0 pg Normal 27.0-33.0 [facility] Comment on above: Order Comment: No: D o not add to previous draw Performed By: #### 5 0608 ####[facility] [facility].[address] MCHC (RBC) [Mass/Vol] 33.7 g/dL Normal 32.0-35.0 [facility] Comment on above: Order Comment: No: D o not add to previous draw Performed By: #### 5 0608 ####[facility] [place] [address] MCV (RBC) [Entitic vol] 95.0 fL Normal 82.0-98.0 [facility] Comment on above: Order Comment: No: D o not add to previous draw Performed By: #### 5 0608 ####[facility] [facility] [place] [address], [facility] Nucleated RBC/100 WBC (Bld) [Ratio] 0 % Normal 0-0 [facility] Comment on above: Order Comment: No: D o not add to previous draw Performed By: #### 5 0608 ####[facility] [place] [address], [facility] PLAT CNT 163 10*3/uL Normal 150-400 [facility] Comment on above: Order Comment: No: D o not add to previous draw Performed By: #### 5 0608 ####[facility] [facility] [place] [address], [facility] RBC (Bld) [#/Vol] 3.59 10*6/uL Low 4.20-5.[address] [facility] Comment on above: Order Comment: No: D o not add to previous draw Performed By: #### 5 0608 ####[facility] [facility] [place] [address], [facility] WBC (Bld) [#/Vol] 17.22 10*3/uL High 4.00-10.60 [facility] Comment on above: Order Comment: No: D o not add to previous draw Performed By: #### 5 0608 ####[facility] [facility] [place] [address], [facility] MAGNESIUM BLOODon 08-21-2021 Magnesium [Mass/Vol] 2.1 mg/dL Normal 1.9-2.7 [facility] Comment on above: Order Comment: No: D o not add to previous draw Performed By: #### 0 0071, 38522, 76560 ####[facility] [facility] [place] [address], [facility] PHOSPHORUS BLOODon Phosphate [Mass/Vol] 3.4 mg/dL Normal 2.5-5.0 [facility] Comment on above: Order Comment: No: D o not add to previous draw Performed By: #### 0 0071, 71135, 33642 ####[facility] [place] [address], [place] POC GLUCOSE LABon 08-21-2021 Glucose [Mass/Vol] 122 mg/dL High 70-100 [facility] Comment on above: Performed By: #### 8 5499 ####[facility] [place] [address], [place] Glucose [Mass/Vol] 172 mg/dL High 70-100 [facility] Comment on above: Performed By: #### 8 5499 ####[facility] [place] [address], [place] Glucose [Mass/Vol] 120 mg/dL High 70-100 [facility] Comment on above: Performed By: #### 8 5499 ####[facility] [place] [address], [place] Glucose [Mass/Vol] 185 mg/dL High 70-100 [facility] Comment on above: Performed By: #### 8 5499 ####[facility] [place] [address], [place] BASIC METABOLIC PANELon 08-02 Calcium [Mass/Vol] 7.9 mg/dL Low 8.6-10.3 [facility] Comment on above: Order Comment: No: D o not add to previous draw Performed By: #### 1 0070, 02955, 09816 ####[facility] [place] [address], [place] Chloride [Moles/Vol] 104 mmol/L Normal 98-107 [facility] Comment on above: Order Comment: No: D o not add to previous draw Performed By: #### 1 0070, 65398, 89813 ####[facility] [facility] [place] [address], [facility] CO2 [Moles/Vol] 22 mmol/L Normal 21-31 [facility] Comment on above: Order Comment: No: D o not add to previous draw Performed By: #### 1 0070, 79997, 08422 ####[facility] [facility] [place] [address], [facility] Creatinine [Mass/Vol] 0.91 mg/dL Normal 0.70-1.30 [facility] Comment on above: Order Comment: No: D o not add to previous draw Performed By: #### 1 0070, 68522, 01681 ####[facility] [facility] [place] [address], [facility] GFR/1.73 sq M.predicted among blacks MDRD (S/P/Bld) [Vol rate/Area] mL/min/{1.73_m2} Normal >60 [facility] Comment on above: Order Comment: No: D o not add to previous draw Result Comment: Calc ulation may not be valid for patients over 70 years Performed By: #### 1 0070, 39731, 94148 ####[facility] [facility] [place] [address], [facility] GFR/1.73 sq M.predicted among non-blacks MDRD (S/P/Bld) [Vol rate/Area] mL/min/{1.73_m2} Normal >60 [facility] Comment on above: Order Comment: No: D o not add to previous draw Result Comment: Calc ulation may not be valid for patients over 70 years Performed By: #### 1 0070, 74078, 33187 ####[facility] [place] [address], [place] Glucose [Mass/Vol] 154 mg/dL High 70-100 [facility] Comment on above: Order Comment: No: D o not add to previous draw Performed By: #### 1 0070, 30247, 58357 ####[facility] [place] [address], [facility] Potassium [Moles/Vol] 4.4 mmol/L Normal 3.5-5.1 [facility] Comment on above: Order Comment: No: D o not add to previous draw Performed By: #### 1 0, 89983, 23989 ####[facility] [place] [address], [facility] Sodium [Moles/Vol] 133 mmol/L Low 136-145 [facility] Comment on above: Order Comment: No: D o not add to previous draw Performed By: #### 1 0, 65941, 78721 ####[facility] [place] [address], [facility] Urea nitrogen [Mass/Vol] 14 mg/dL Normal 7-25 [facility] Comment on above: Order Comment: No: D o not add to previous draw Performed By: #### 1 0, 70586, 38880 ####[facility] [facility] [place] [address], [facility] CBC COMPLETE BLOOD COUNTon 10-21-2020 Erythrocyte distribution width (RBC) [Ratio] 14.6 % Normal 11.5-15.0 The [facility] Comment on above: Order Comment: No: D o not add to previous drawPT in restroom Performed By: #### 5 0608 ####[facility] [place] [address], [facility] Hematocrit (Bld) [Volume fraction] 33.2 % Low 39.0-50.0 [facility] Comment on above: Order Comment: No: D o not add to previous drawPT in restroom Performed By: #### 5 0608 ####[facility] Hemoglobin (Bld) [Mass/Vol] 11.2 g/dL Low 13.0-17.0 [facility] Comment on above: Order Comment: No: D o not add to previous drawPT in restroom Performed By: #### 5 0608 ####[facility] MCH (RBC) [Entitic mass] 32.2 pg Normal 27.0-33.0 [facility] Comment on above: Order Comment: No: D o not add to previous drawPT in restroom Performed By: #### 5 0608 ####[address] MCHC (RBC) [Mass/Vol] 33.7 g/dL Normal 32.0-35.0 [facility] Comment on above: Order Comment: No: D o not add to previous drawPT in restroom Performed By: #### 5 0608 ####[facility] MCV (RBC) [Entitic vol] 95.4 fL Normal 82.0-98.0 [facility] Comment on above: Order Comment: No: D o not add to previous drawPT in restroom Performed By: #### 5 0608 ####[address] Nucleated RBC/100 WBC (Bld) [Ratio] 0 % Normal 0-0 [facility] Comment on above: Order Comment: No: D o not add to previous drawPT in restroom Performed By: #### 5 0608 ####[address] PLAT CNT 155 10*3/uL Normal 150-400 The [facility] Comment on above: Order Comment: No: D o not add to previous drawPT in restroom Performed By: #### 5 0608 ####[facility] [place] [address], [facility] RBC (Bld) [#/Vol] 3.48 10*6/uL Low 4.20-5.[address] [facility] Comment on above: Order Comment: No: D o not add to previous drawPT in restroom Performed By: #### 5 0608 ####[facility] [place] [address], [place] WBC (Bld) [#/Vol] 19.89 10*3/uL High 4.00-10.60 [facility] Comment on above: Order Comment: No: D o not add to previous drawPT in restroom Performed By: #### 5 0608 ####[facility] [place] [address], [facility] MAGNESIUM BLOODon 08-20-2021 Magnesium [Mass/Vol] 1.7 mg/dL Low 1.9-2.7 [facility] Comment on above: Order Comment: No: D o not add to previous draw Performed By: #### 1 0070, 76235, 41700 ####[facility] [facility] [place] [place] [address], [facility] PHOSPHORUS BLOODon Phosphate [Mass/Vol] 3.1 mg/dL Normal 2.5-5.0 [facility] Comment on above: Order Comment: No: D o not add to previous draw Performed By: #### 1 0070, 00290, 64858 ####[facility] [place] [address], [place] POC GLUCOSE LABon 08-20-2021 Glucose [Mass/Vol] 160 mg/dL High 70-100 [facility] Comment on above: Performed By: #### 8 5499 ####[facility] [place] [address], [place] Glucose [Mass/Vol] 175 mg/dL High 70-100 [facility] Comment on above: Performed By: #### 8 5499 ####[facility] [facility] [place] [address], [place] Glucose [Mass/Vol] 159 mg/dL High 70-100 [facility] Comment on above: Performed By: #### 8 5499 ####[facility] [facility] [place] [place] [address], [place] Glucose [Mass/Vol] 145 mg/dL High 70-100 [facility] Comment on above: Performed By: #### 8 5499 ####[facility] [facility] [place] [address], [place] Glucose [Mass/Vol] 152 mg/dL High 70-100 [facility] Comment on above: Performed By: #### 8 5499 ####[facility] [facility] [place] [address], [facility] BASIC METABOLIC PANELon 12-1 Calcium [Mass/Vol] 8.3 mg/dL Low 8.6-10.3 [facility] Comment on above: Order Comment: No: D o not add to previous drawMissed Performed By: #### 4 999, 88076, 51303 ####[facility] [facility] [place] [address], [place] Chloride [Moles/Vol] 103 mmol/L Normal 98-107 [facility] Comment on above: Order Comment: No: D o not add to previous drawMissed Performed By: #### 4 999, 18229, 33766 ####[facility] [facility] [place] [address], [place] CO2 [Moles/Vol] 23 mmol/L Normal 21-31 The [facility] Comment on above: Order Comment: No: D o not add to previous drawMissed Performed By: #### 4 999, 70215, 98225 ####[facility] [place] [address], [facility] Creatinine [Mass/Vol] 0.86 mg/dL Normal 0.70-1.30 [facility] Comment on above: Order Comment: No: D o not add to previous drawMissed Performed By: #### 4 1000, 32390, 41390 ####[facility] [place] [address], [facility] GFR/1.73 sq M.predicted among blacks MDRD (S/P/Bld) [Vol rate/Area] mL/min/{1.73_m2} Normal >60 [facility] Comment on above: Order Comment: No: D o not add to previous drawMissed Result Comment: Calc ulation may not be valid for patients over 70 years Performed By: #### 4 1000, 99439, 89039 ####[facility] [facility] [place] [address], [facility] GFR/1.73 sq M.predicted among non-blacks MDRD (S/P/Bld) [Vol rate/Area] mL/min/{1.73_m2} Normal >60 [facility] Comment on above: Order Comment: No: D o not add to previous drawMissed Result Comment: Calc ulation may not be valid for patients over 70 years Performed By: #### 4 999, 57302, 94680 ####[facility] [facility] [place] [address], [place] Glucose [Mass/Vol] 176 mg/dL High 70-100 [facility] Comment on above: Order Comment: No: D o not add to previous drawMissed Performed By: #### 4 1000, 06571, 07415 ####[facility] [place] [address], [place] Potassium [Moles/Vol] 4.8 mmol/L Normal 3.5-5.1 [facility] Comment on above: Order Comment: No: D o not add to previous drawMissed Performed By: #### 4 1000, 16094, 15196 ####[facility] [place] [address], [facility] Sodium [Moles/Vol] 132 mmol/L Low 136-145 [facility] Comment on above: Order Comment: No: D o not add to previous drawMissed Performed By: #### 4 1000, 39225, 08567 ####[facility] [place] [address], [facility] Urea nitrogen [Mass/Vol] 16 mg/dL Normal 7-25 [facility] Comment on above: Order Comment: No: D o not add to previous drawMissed Performed By: #### 4 1000, 25926, 57087 ####[facility] [facility] CBC COMPLETE BLOOD COUNTon 10-20-2020 Erythrocyte distribution width (RBC) [Ratio] 14.6 % Normal 11.5-15.0 [facility] Comment on above: Order Comment: No: D o not add to previous drawMissed Performed By: #### 5 0608 ####[facility] [place] [address], [facility] Hematocrit (Bld) [Volume fraction] 38.2 % Low 39.0-50.0 [facility] Comment on above: Order Comment: No: D o not add to previous drawMissed Performed By: #### 5 0608 ####[facility] [place] [address], [facility] Hemoglobin (Bld) [Mass/Vol] 12.4 g/dL Low 13.0-17.0 [facility] Comment on above: Order Comment: No: D o not add to previous drawMissed Performed By: #### 5 0608 ####[facility] MCH (RBC) [Entitic mass] 31.9 pg Normal 27.0-33.0 [facility] Comment on above: Order Comment: No: D o not add to previous drawMissed Performed By: #### 5 0608 ####[facility] MCHC (RBC) [Mass/Vol] 32.5 g/dL Normal 32.0-35.0 [facility] Comment on above: Order Comment: No: D o not add to previous drawMissed Performed By: #### 5 0608 ####[place] [id number] [address] MCV (RBC) [Entitic vol] 98.2 fL High 82.0-98.0 [facility] Comment on above: Order Comment: No: D o not add to previous drawMissed Performed By: #### 5 0608 ####[facility] [facility].[address] Nucleated RBC/100 WBC (Bld) [Ratio] 0 % Normal 0-0 [facility] Comment on above: Order Comment: No: D o not add to previous drawMissed Performed By: #### 5 0608 ####[place] [address] [facility].[address] PLAT CNT 162 10*3/uL Normal 150-400 The [facility] Comment on above: Order Comment: No: D o not add to previous drawMissed Performed By: #### 5 0608 ####[facility] [facility] [place] [address], [facility] RBC (Bld) [#/Vol] 3.89 10*6/uL Low 4.20-5.[address] [facility] Comment on above: Order Comment: No: D o not add to previous drawMissed Performed By: #### 5 0608 ####[facility] [facility] [place] [place] [address], [facility] WBC (Bld) [#/Vol] 26.86 10*3/uL High 4.00-10.60 [facility] Comment on above: Order Comment: No: D o not add to previous drawMissed Performed By: #### 5 0608 ####[facility] [place] [address], [facility] CT ABDOMEN AND PELVIS WO CON TRASTon 08-19-2021 CT ABDOMEN AND PELVIS WO CONTRAST Normal The [facility] Comment on above: Order Comment: Other , s/p Colostomy Reversal. Concerns for anastomotic leak. Please use Rectal Contrast. MAGNESIUM BLOODon 08-19-2021 Magnesium [Mass/Vol] 2.2 mg/dL Normal 1.9-2.7 [facility] Comment on above: Order Comment: No: D o not add to previous drawMissed Performed By: #### 4 1000, 58574, 43855 ####[facility] [facility] [place] [address], [facility] PHOSPHORUS BLOODon Phosphate [Mass/Vol] 3.4 mg/dL Normal 2.5-5.0 [facility] Comment on above: Order Comment: No: D o not add to previous drawMissed Performed By: #### 4 1000, 01825, 96502 ####[facility] [facility] [place] [address], [facility] POC GLUCOSE LABon 08-19-2021 Glucose [Mass/Vol] 146 mg/dL High 70-100 [facility] Comment on above: Performed By: #### 8 4999 ####[facility] [facility] [place] [address], [facility] Glucose [Mass/Vol] 122 mg/dL High 70-100 [facility] Comment on above: Performed By: #### 8 1039 ####[facility] [place] [address], [place] Glucose [Mass/Vol] 108 mg/dL High 70-100 [facility] Comment on above: Performed By: #### 8 5499 ####[facility] [place] [address], [place] Glucose [Mass/Vol] 153 mg/dL High 70-100 [facility] Comment on above: Performed By: #### 8 5499 ####[facility] [place] [address], [place] BASIC METABOLIC PANELon 12- Calcium [Mass/Vol] 8.5 mg/dL Low 8.6-10.3 [facility] Comment on above: Order Comment: No: D o not add to previous draw Performed By: #### 1 0070, 84087, 85774 ####[facility] [place] [address], [place] Chloride [Moles/Vol] 100 mmol/L Normal 98-107 [facility] Comment on above: Order Comment: No: D o not add to previous draw Performed By: #### 1 0070, 70320, 81550 ####[facility] [place] [address], [place] CO2 [Moles/Vol] 26 mmol/L Normal 21-31 The [facility] Comment on above: Order Comment: No: D o not add to previous draw Performed By: #### 1 0070, 64745, 82500 ####[facility] [place] [address], [place] Creatinine [Mass/Vol] 0.73 mg/dL Normal 0.70-1.30 [facility] Comment on above: Order Comment: No: D o not add to previous draw Performed By: #### 1 0070, 62363, 69347 ####[facility] [place] [address], [place] GFR/1.73 sq M.predicted among blacks MDRD (S/P/Bld) [Vol rate/Area] mL/min/{1.73_m2} Normal >60 [facility] Comment on above: Order Comment: No: D o not add to previous draw Result Comment: Calc ulation may not be valid for patients over 70 years Performed By: #### 1 0070, 91784, 30750 ####[facility] [place] [address], [facility] GFR/1.73 sq M.predicted among non-blacks MDRD (S/P/Bld) [Vol rate/Area] mL/min/{1.73_m2} Normal >60 [facility] Comment on above: Order Comment: No: D o not add to previous draw Result Comment: Calc ulation may not be valid for patients over 70 years Performed By: #### 1 0070, 27748, 84734 ####[facility] [place] [address], [facility] Glucose [Mass/Vol] 168 mg/dL High 70-100 [facility] Comment on above: Order Comment: No: D o not add to previous draw Performed By: #### 1 0070, 16817, 90342 ####[facility] [place] [address], [facility] Potassium [Moles/Vol] 4.3 mmol/L Normal 3.5-5.1 [facility] Comment on above: Order Comment: No: D o not add to previous draw Performed By: #### 1 0070, 17594, 25325 ####[facility] [place] [address], [facility] Sodium [Moles/Vol] 135 mmol/L Low 136-145 [facility] Comment on above: Order Comment: No: D o not add to previous draw Performed By: #### 1 0070, 85695, 28406 ####[facility] Urea nitrogen [Mass/Vol] 15 mg/dL Normal 7-25 [facility] Comment on above: Order Comment: No: D o not add to previous draw Performed By: #### 1 0070, 97860, 09703 ####[facility] [place] [address], [facility] CBC W/DIFFon 08-18-2021 ABS NEUTROPHILS 14.1 10*3/uL High 1.6-7.6 The [facility] Comment on above: Order Comment: No: D o not add to previous draw Performed By: #### 5 0103 ####[facility] [place] [address], [facility] Basophils (Bld) [#/Vol] 0.0 10*3/uL Normal 0.0-0.2 [facility] Comment on above: Order Comment: No: D o not add to previous draw Performed By: #### 5 0103 ####[facility] [place] [address], [facility] Basophils/100 WBC (Bld) 0.0 % Normal 0.0-1.0 [facility] Comment on above: Order Comment: No: D o not add to previous draw Performed By: #### 5 0103 ####[facility] [place] [address], [facility] Eosinophils (Bld) [#/Vol] 0.3 10*3/uL Normal 0.0-0.5 [facility] Comment on above: Order Comment: No: D o not add to previous draw Performed By: #### 5 0103 ####[facility] [place] [address], [facility] Eosinophils/100 WBC (Bld) 1.0 % Normal 0.0-6.0 [facility] Comment on above: Order Comment: No: D o not add to previous draw Performed By: #### 5 0103 ####[facility] Erythrocyte distribution width (RBC) [Ratio] 14.5 % Normal 11.5-15.0 [facility] Comment on above: Order Comment: No: D o not add to previous draw Performed By: #### 5 0103 ####[facility] [facility] [place] [address], [facility] GIANT PLATELETS Present Normal The [facility] Comment on above: Order Comment: No: D o not add to previous draw Performed By: #### 5 0103 ####[facility] Hematocrit (Bld) [Volume fraction] 38.5 % Low 39.0-50.0 [facility] Comment on above: Order Comment: No: D o not add to previous draw Performed By: #### 5 0103 ####[facility] Hemoglobin (Bld) [Mass/Vol] 13.0 g/dL Normal 13.0-17.0 [facility] Comment on above: Order Comment: No: D o not add to previous draw Performed By: #### 5 0103 ####[facility] [facility] [place] [address], [facility] Lymphocytes (Bld) [#/Vol] 10.6 10*3/uL High 1.2-4.0 [facility] Comment on above: Order Comment: No: D o not add to previous draw Performed By: #### 5 0103 ####[facility] [facility] [place] [address], [facility] Lymphocytes/100 WBC (Bld) 40.4 % Normal 20.0-45.0 [facility] Comment on above: Order Comment: No: D o not add to previous draw Performed By: #### 5 0103 ####[facility] [facility].[address] MCH (RBC) [Entitic mass] 32.2 pg Normal 27.0-33.0 [facility] Comment on above: Order Comment: No: D o not add to previous draw Performed By: #### 5 0103 ####[facility] [place] [address].[place] [address], [facility] MCHC (RBC) [Mass/Vol] 33.8 g/dL Normal 32.0-35.0 [facility] Comment on above: Order Comment: No: D o not add to previous draw Performed By: #### 5 0103 ####[address] MCV (RBC) [Entitic vol] 95.3 fL Normal 82.0-98.0 [facility] Comment on above: Order Comment: No: D o not add to previous draw Performed By: #### 5 3 ####[address] Monocytes (Bld) [#/Vol] 1.3 10*3/uL High 0.1-1.0 [facility] Comment on above: Order Comment: No: D o not add to previous draw Performed By: #### 5 3 ####[facility] [place] [address].[address] MONOS 5.1 % Normal 5.0-12.0 [facility] Comment on above: Order Comment: No: D o not add to previous draw Performed By: #### 5 0103 ####[address] Neutrophils/100 WBC (Bld) 53.5 % Normal 40.0-72.0 [facility] Comment on above: Order Comment: No: D o not add to previous draw Performed By: #### 5 3 ####[address] [place] [address], [place] Nucleated RBC/100 WBC (Bld) [Ratio] 0 % Normal 0-0 [facility] Comment on above: Order Comment: No: D o not add to previous draw Performed By: #### 5 0103 ####[facility] [place] [address], [facility] PLAT CNT 173 10*3/uL Normal 150-400 The [facility] Comment on above: Order Comment: No: D o not add to previous draw Performed By: #### 5 0103 ####[place] [address], [facility] RBC (Bld) [#/Vol] 4.04 10*6/uL Low 4.20-5.[address] [facility] Comment on above: Order Comment: No: D o not add to previous draw Performed By: #### 5 0103 ####[facility] SMUDGE CELLS MANY Normal The [facility] Comment on above: Order Comment: No: D o not add to previous draw Result Comment: Resu lt changed by [email or web address] on 08/18/2021 06:13. The previous value wasPresent. Performed By: #### 5 0103 ####[place] [id number] [address] WBC (Bld) [#/Vol] 26.29 10*3/uL High 4.00-10.60 [facility] Comment on above: Order Comment: No: D o not add to previous draw Performed By: #### 5 0103 ####[facility] MAGNESIUM BLOODon 08-18-2021 Magnesium [Mass/Vol] 1.9 mg/dL Normal 1.9-2.7 [facility] Comment on above: Order Comment: No: D o not add to previous draw Performed By: #### 1 0070, 75783, 57290 ####[facility] [place] [address], [place] PHOSPHORUS BLOODon Phosphate [Mass/Vol] 3.6 mg/dL Normal 2.5-5.0 [facility] Comment on above: Order Comment: No: D o not add to previous draw Performed By: #### 1 0070, 84280, 13507 ####[facility] [place] [address], [place] POC GLUCOSE LABon 08-18-2021 Glucose [Mass/Vol] 141 mg/dL High 70-100 [facility] Comment on above: Performed By: #### 8 5499 ####[facility] [place] [address], [place] Glucose [Mass/Vol] 187 mg/dL High 70-100 [facility] Comment on above: Performed By: #### 8 5499 ####[facility] [place] [address], [place] Glucose [Mass/Vol] 168 mg/dL High 70-100 [facility] Comment on above: Performed By: #### 8 5499 ####[facility] [place] [address], [place] Glucose [Mass/Vol] 183 mg/dL High 70-100 [facility] Comment on above: Performed By: #### 8 5499 ####[facility] [place] [address], [place] Glucose [Mass/Vol] 149 mg/dL High 70-100 [facility] Comment on above: Performed By: #### 8 5499 ####[facility] [place] [address], [place] Glucose [Mass/Vol] 221 mg/dL High 70-100 [facility] Comment on above: Performed By: #### 8 5499 ####[facility] [place] [address], [facility] AMMONIA BLOODon 08-17-2021 Ammonia (P) [Moles/Vol] 10 umol/L Low 16-53 [facility] Comment on above: Order Comment: Yes: Add to Previous draw if able Performed By: #### 2 1408 ####[facility] [place] [address], [facility] BASIC METABOLIC PANELon 08-02 Calcium [Mass/Vol] 8.6 mg/dL Normal 8.6-10.3 [facility] Comment on above: Order Comment: No: D o not add to previous draw Performed By: #### 0 0071 ####[facility] [place] [address], [facility] Chloride [Moles/Vol] 101 mmol/L Normal 98-107 [facility] Comment on above: Order Comment: No: D o not add to previous draw Performed By: #### 0 0071 ####[facility] [place] [address], [facility] CO2 [Moles/Vol] 27 mmol/L Normal 21-31 The [facility] Comment on above: Order Comment: No: D o not add to previous draw Performed By: #### 0 0071 ####[facility] [place] [address], [facility] Creatinine [Mass/Vol] 0.75 mg/dL Normal 0.70-1.30 [facility] Comment on above: Order Comment: No: D o not add to previous draw Performed By: #### 0 0071 ####[facility] [place] [address], [facility] GFR/1.73 sq M.predicted among blacks MDRD (S/P/Bld) [Vol rate/Area] mL/min/{1.73_m2} Normal >60 The [facility] Comment on above: Order Comment: No: D o not add to previous draw Result Comment: Calc ulation may not be valid for patients over 70 years Performed By: #### 0 0071 ####[facility] [place] [address], [facility] GFR/1.73 sq M.predicted among non-blacks MDRD (S/P/Bld) [Vol rate/Area] mL/min/{1.73_m2} Normal >60 [facility] Comment on above: Order Comment: No: D o not add to previous draw Result Comment: Calc ulation may not be valid for patients over 70 years Performed By: #### 0 0071 ####[facility] [facility] [place] [address], [facility] Glucose [Mass/Vol] 129 mg/dL High 70-100 [facility] Comment on above: Order Comment: No: D o not add to previous draw Performed By: #### 0 0071 ####[facility] [facility] [place] [address], [facility] Potassium [Moles/Vol] 4.0 mmol/L Normal 3.5-5.1 [facility] Comment on above: Order Comment: No: D o not add to previous draw Performed By: #### 0 0071 ####[facility] [facility] [place] [address], [facility] Sodium [Moles/Vol] 135 mmol/L Low 136-145 [facility] Comment on above: Order Comment: No: D o not add to previous draw Performed By: #### 0 0071 ####[facility] [facility] [place] [place] [address], [place] Urea nitrogen [Mass/Vol] 11 mg/dL Normal 7-25 [facility] Comment on above: Order Comment: No: D o not add to previous draw Performed By: #### 0 0071 ####[facility] CBC COMPLETE BLOOD COUNTon 10-18-2020 Erythrocyte distribution width (RBC) [Ratio] 14.2 % Normal 11.5-15.0 [facility] Comment on above: Order Comment: No: D o not add to previous draw Performed By: #### 5 0608 ####[facility] Hematocrit (Bld) [Volume fraction] 38.8 % Low 39.0-50.0 [facility] Comment on above: Order Comment: No: D o not add to previous draw Performed By: #### 5 0608 ####[place] [id number] [address] Hemoglobin (Bld) [Mass/Vol] 13.4 g/dL Normal 13.0-17.0 [facility] Comment on above: Order Comment: No: D o not add to previous draw Performed By: #### 5 0608 ####[address] MCH (RBC) [Entitic mass] 32.2 pg Normal 27.0-33.0 [facility] Comment on above: Order Comment: No: D o not add to previous draw Performed By: #### 5 0608 ####[facility] MCHC (RBC) [Mass/Vol] 34.5 g/dL Normal 32.0-35.0 [facility] Comment on above: Order Comment: No: D o not add to previous draw Performed By: #### 5 0608 ####[facility] [place] [address] MCV (RBC) [Entitic vol] 93.3 fL Normal 82.0-98.0 [facility] Comment on above: Order Comment: No: D o not add to previous draw Performed By: #### 5 0608 ####[facility] [facility].[address] Nucleated RBC/100 WBC (Bld) [Ratio] 0 % Normal 0-0 [facility] Comment on above: Order Comment: No: D o not add to previous draw Performed By: #### 5 0608 ####[facility] [facility] [place] [address], [facility] PLAT CNT 168 10*3/uL Normal 150-400 The [facility] Comment on above: Order Comment: No: D o not add to previous draw Performed By: #### 5 0608 ####[place] [id number] [facility].[address] RBC (Bld) [#/Vol] 4.16 10*6/uL Low 4.20-5.[address] [facility] Comment on above: Order Comment: No: D o not add to previous draw Performed By: #### 5 0608 ####[place] [id number] [facility].[address] WBC (Bld) [#/Vol] 26.64 10*3/uL High 4.00-10.60 [facility] Comment on above: Order Comment: No: D o not add to previous draw Performed By: #### 5 0608 ####[facility] [facility].[address] LACTATE BLOODon 08-17-2021 Lactate [Moles/Vol] 0.7 mmol/L Normal .5-2.[address] [facility] Comment on above: Order Comment: Yes: Add to Previous draw if able Performed By: #### 1 0054 ####[facility] [place] [address].[address] POC GLUCOSE LABon 08-17-2021 Glucose [Mass/Vol] 146 mg/dL High 70-100 [facility] Comment on above: Performed By: #### 8 5499 ####[facility] [place] [address], [place] Glucose [Mass/Vol] 144 mg/dL High 70-100 [facility] Comment on above: Performed By: #### 8 5499 ####[facility] [place] [address], [place] Glucose [Mass/Vol] 150 mg/dL High 70-100 [facility] Comment on above: Performed By: #### 8 5499 ####[facility] [facility] [place] [place] [address], [place] Glucose [Mass/Vol] 126 mg/dL High 70-100 [facility] Comment on above: Performed By: #### 8 5499 ####[facility] [facility] [place] [place] [address], [place] Glucose [Mass/Vol] 166 mg/dL High 70-100 [facility] Comment on above: Performed By: #### 8 5499 ####[facility] [facility] [place] [place] [address], [place] Glucose [Mass/Vol] 141 mg/dL High 70-100 [facility] Comment on above: Performed By: #### 8 5499 ####[facility] [facility] [place] [place] [address], [place] BASIC METABOLIC PANELon 12- Calcium [Mass/Vol] 8.4 mg/dL Low 8.6-10.3 [facility] Comment on above: Order Comment: No: D o not add to previous draw Performed By: #### 0 0071 ####[facility] [facility] [place] [address], [place] Chloride [Moles/Vol] 101 mmol/L Normal 98-107 [facility] Comment on above: Order Comment: No: D o not add to previous draw Performed By: #### 0 0071 ####[facility] [place] [address], [facility] CO2 [Moles/Vol] 27 mmol/L Normal 21-31 The [facility] Comment on above: Order Comment: No: D o not add to previous draw Performed By: #### 0 0071 ####[facility] [place] [address], [facility] Creatinine [Mass/Vol] 0.75 mg/dL Normal 0.70-1.30 [facility] Comment on above: Order Comment: No: D o not add to previous draw Performed By: #### 0 0071 ####[facility] [facility] [place] [place] [address], [facility] GFR/1.73 sq M.predicted among blacks MDRD (S/P/Bld) [Vol rate/Area] mL/min/{1.73_m2} Normal >60 [facility] Comment on above: Order Comment: No: D o not add to previous draw Result Comment: Calc ulation may not be valid for patients over 70 years Performed By: #### 0 0071 ####[facility] [facility] [place] [place] [address], [facility] GFR/1.73 sq M.predicted among non-blacks MDRD (S/P/Bld) [Vol rate/Area] mL/min/{1.73_m2} Normal >60 [facility] Comment on above: Order Comment: No: D o not add to previous draw Result Comment: Calc ulation may not be valid for patients over 70 years Performed By: #### 0 0071 ####[facility] [place] [address], [place] Glucose [Mass/Vol] 146 mg/dL High 70-100 [facility] Comment on above: Order Comment: No: D o not add to previous draw Performed By: #### 0 0071 ####[facility] [place] [address], [facility] Potassium [Moles/Vol] 4.4 mmol/L Normal 3.5-5.1 [facility] Comment on above: Order Comment: No: D o not add to previous draw Performed By: #### 0 0071 ####[facility] [place] [address], [facility] Sodium [Moles/Vol] 135 mmol/L Low 136-145 [facility] Comment on above: Order Comment: No: D o not add to previous draw Performed By: #### 0 0071 ####[facility] [place] [address], [facility] Urea nitrogen [Mass/Vol] 11 mg/dL Normal 7-25 [facility] Comment on above: Order Comment: No: D o not add to previous draw Performed By: #### 0 0071 ####[facility] CBC COMPLETE BLOOD COUNTon 10-17-2020 Erythrocyte distribution width (RBC) [Ratio] 14.1 % Normal 11.5-15.0 [facility] Comment on above: Order Comment: No: D o not add to previous draw Performed By: #### 5 0608 ####[facility] [place] [address], [facility] Hematocrit (Bld) [Volume fraction] 38.5 % Low 39.0-50.0 [facility] Comment on above: Order Comment: No: D o not add to previous draw Performed By: #### 5 0608 ####[facility] [place] [address], [facility] Hemoglobin (Bld) [Mass/Vol] 12.8 g/dL Low 13.0-17.0 [facility] Comment on above: Order Comment: No: D o not add to previous draw Performed By: #### 5 0608 ####[facility] MCH (RBC) [Entitic mass] 31.9 pg Normal 27.0-33.0 [facility] Comment on above: Order Comment: No: D o not add to previous draw Performed By: #### 5 0608 ####[facility] MCHC (RBC) [Mass/Vol] 33.2 g/dL Normal 32.0-35.0 [facility] Comment on above: Order Comment: No: D o not add to previous draw Performed By: #### 5 0608 ####[place] [id number] [address] MCV (RBC) [Entitic vol] 96.0 fL Normal 82.0-98.0 [facility] Comment on above: Order Comment: No: D o not add to previous draw Performed By: #### 5 0608 ####[place] [id number] [address] Nucleated RBC/100 WBC (Bld) [Ratio] 0 % Normal 0-0 [facility] Comment on above: Order Comment: No: D o not add to previous draw Performed By: #### 5 0608 ####[facility] PLAT CNT 142 10*3/uL Low 150-400 [facility] Comment on above: Order Comment: No: D o not add to previous draw Performed By: #### 5 0608 ####[address] RBC (Bld) [#/Vol] 4.01 10*6/uL Low 4.20-5.[address] [facility] Comment on above: Order Comment: No: D o not add to previous draw Performed By: #### 5 0608 ####[facility] [place] [address], [place] WBC (Bld) [#/Vol] 23.65 10*3/uL High 4.00-10.60 [facility] Comment on above: Order Comment: No: D o not add to previous draw Performed By: #### 5 0608 ####[facility] [place] [address], [place] POC GLUCOSE LABon 08-16-2021 Glucose [Mass/Vol] 139 mg/dL High 70-100 [facility] Comment [facility] above: Performed By: #### 8 5499 ####[facility] [place] [address], [place] Glucose [Mass/Vol] 131 mg/dL High 70-100 [facility] Comment on above: Performed By: #### 8 5499 ####[facility] [place] [address], [place] Glucose [Mass/Vol] 138 mg/dL High 70-100 [facility] Comment on above: Performed By: #### 8 5499 ####[facility] [place] [address], [place] Glucose [Mass/Vol] 149 mg/dL High 70-100 [facility] Comment on above: Performed By: #### 8 5499 ####[facility] [place] [address], [place] Glucose [Mass/Vol] 136 mg/dL High 70-100 [facility] Comment on above: Performed By: #### 8 5499 ####[facility] [place] [address], [place] BASIC METABOLIC PANELon 12- Calcium [Mass/Vol] 8.0 mg/dL Low 8.6-10.3 [facility] Comment on above: Order Comment: No: D o not add to previous draw Performed By: #### 1 0070, 70949, 85566 ####[facility] [place] [address], [facility] Chloride [Moles/Vol] 102 mmol/L Normal 98-107 [facility] Comment on above: Order Comment: No: D o not add to previous draw Performed By: #### 1 0070, 62839, 95800 ####[facility] [place] [address], [facility] CO2 [Moles/Vol] 28 mmol/L Normal 21-31 The [facility] Comment on above: Order Comment: No: D o not add to previous draw Performed By: #### 1 0070, 01855, 97480 ####[facility] [facility] [place] [place] [address], [facility] Creatinine [Mass/Vol] 0.71 mg/dL Normal 0.70-1.30 [facility] Comment on above: Order Comment: No: D o not add to previous draw Performed By: #### 1 0070, 61717, 76847 ####[facility] [facility] [place] [place] [address], [facility] GFR/1.73 sq M.predicted among blacks MDRD (S/P/Bld) [Vol rate/Area] mL/min/{1.73_m2} Normal >60 [facility] Comment on above: Order Comment: No: D o not add to previous draw Result Comment: Calc ulation may not be valid for patients over 70 years Performed By: #### 1 0070, 61787, 85935 ####[facility] [place] [address], [place] GFR/1.73 sq M.predicted among non-blacks MDRD (S/P/Bld) [Vol rate/Area] mL/min/{1.73_m2} Normal >60 [facility] Comment on above: Order Comment: No: D o not add to previous draw Result Comment: Calc ulation may not be valid for patients over 70 years Performed By: #### 1 0070, 36172, 70416 ####[facility] [place] [address], [place] Glucose [Mass/Vol] 163 mg/dL High 70-100 [facility] Comment on above: Order Comment: No: D o not add to previous draw Performed By: #### 1 0, 74004, 94281 ####[facility] [place] [address], [place] Potassium [Moles/Vol] 4.0 mmol/L Normal 3.5-5.1 [facility] Comment on above: Order Comment: No: D o not add to previous draw Performed By: #### 1 0, 82401, 07510 ####[facility] [place] [address], [place] Sodium [Moles/Vol] 135 mmol/L Low 136-145 [facility] Comment on above: Order Comment: No: D o not add to previous draw Performed By: #### 1 0, 00679, 83933 ####[facility] [place] [address], [place] Urea nitrogen [Mass/Vol] 10 mg/dL Normal 7-25 [facility] Comment on above: Order Comment: No: D o not add to previous draw Performed By: #### 1 0, 04217, 57990 ####[facility] [place] [address], [place] CBC COMPLETE BLOOD COUNTon 10-16-2020 Erythrocyte distribution width (RBC) [Ratio] 14.3 % Normal 11.5-15.0 [facility] Comment on above: Order Comment: No: D o not add to previous draw Performed By: #### 5 0608 ####[facility] Hematocrit (Bld) [Volume fraction] 37.2 % Low 39.0-50.0 [facility] Comment on above: Order Comment: No: D o not add to previous draw Performed By: #### 5 0608 ####[facility] Hemoglobin (Bld) [Mass/Vol] 12.2 g/dL Low 13.0-17.0 [facility] Comment on above: Order Comment: No: D o not add to previous draw Performed By: #### 5 0608 ####[address] MCH (RBC) [Entitic mass] 31.9 pg Normal 27.0-33.0 [facility] Comment on above: Order Comment: No: D o not add to previous draw Performed By: #### 5 0608 ####[facility] MCHC (RBC) [Mass/Vol] 32.8 g/dL Normal 32.0-35.0 [facility] Comment on above: Order Comment: No: D o not add to previous draw Performed By: #### 5 0608 ####[facility] MCV (RBC) [Entitic vol] 97.1 fL Normal 82.0-98.0 [facility] Comment on above: Order Comment: No: D o not add to previous draw Performed By: #### 5 0608 ####[address] Nucleated RBC/100 WBC (Bld) [Ratio] 0 % Normal 0-0 [facility] Comment on above: Order Comment: No: D o not add to previous draw Performed By: #### 5 0608 ####[facility] [place] [address], [facility] PLAT CNT 156 10*3/uL Normal 150-400 [facility] Comment on above: Order Comment: No: D o not add to previous draw Performed By: #### 5 0608 ####[facility] [facility] [place] [place] [address], [facility] RBC (Bld) [#/Vol] 3.83 10*6/uL Low 4.20-5.70 [facility] Comment on above: Order Comment: No: D o not add to previous draw Performed By: #### 5 0608 ####[facility] [facility] [place] [address], [facility] WBC (Bld) [#/Vol] 25.37 10*3/uL High 4.00-10.60 [facility] Comment on above: Order Comment: No: D o not add to previous draw Performed By: #### 5 0608 ####[facility] [facility] [place] [address], [facility] MAGNESIUM BLOODon 08-15-2021 Magnesium [Mass/Vol] 2.0 mg/dL Normal 1.9-2.7 [facility] Comment on above: Order Comment: No: D o not add to previous draw Performed By: #### 1 0, 01083, 54384 ####[facility] [facility] [place] [address], [facility] PHOSPHORUS BLOODon Phosphate [Mass/Vol] 2.6 mg/dL Normal 2.5-5.0 [facility] Comment on above: Order Comment: No: D o not add to previous draw Performed By: #### 1 0070, 09863, 59713 ####[facility] [facility] [place] [address], [facility] POC GLUCOSE LABon 08-15-2021 Glucose [Mass/Vol] 154 mg/dL High 70-100 [facility] Comment on above: Performed By: #### 8 5499 ####[facility] [place] [address], [place] Glucose [Mass/Vol] 142 mg/dL High 70-100 [facility] Comment on above: Performed By: #### 8 5499 ####[facility] [place] [address], [place] Glucose [Mass/Vol] 162 mg/dL High 70-100 [facility] Comment on above: Performed By: #### 8 5499 ####[facility] [facility] [place] [place] [address], [place] Glucose [Mass/Vol] 149 mg/dL High 70-100 [facility] Comment on above: Performed By: #### 8 5499 ####[facility] [facility] [place] [place] [address], [place] Glucose [Mass/Vol] 179 mg/dL High 70-100 [facility] Comment on above: Performed By: #### 8 5499 ####[facility] [place] [address].[place] [address], [facility] BASIC METABOLIC PANELon 12-1 -2020 Calcium [Mass/Vol] 8.2 mg/dL Low 8.6-10.3 [facility] Comment on above: Order Comment: No: D o not add to previous draw Performed By: #### 4 1000, 32826, 29666 ####[facility] [facility] [place] [place] [address], [place] Chloride [Moles/Vol] 101 mmol/L Normal 98-107 [facility] Comment on above: Order Comment: No: D o not add to previous draw Performed By: #### 4 1000, 51223, 00624 ####[facility] [facility] [place] [place] [address], [facility] CO2 [Moles/Vol] 31 mmol/L Normal 21-31 [facility] Comment on above: Order Comment: No: D o not add to previous draw Performed By: #### 4 1000, 70886, 25174 ####[facility] [place] [address], [facility] Creatinine [Mass/Vol] 0.85 mg/dL Normal 0.70-1.30 [facility] Comment on above: Order Comment: No: D o not add to previous draw Performed By: #### 4 1000, 67821, 45556 ####[facility] [place] [address], [facility] GFR/1.73 sq M.predicted among blacks MDRD (S/P/Bld) [Vol rate/Area] mL/min/{1.73_m2} Normal >60 [facility] Comment on above: Order Comment: No: D o not add to previous draw Result Comment: Calc ulation may not be valid for patients over 70 years Performed By: #### 4 1000, 61328, 65778 ####[facility] [facility] [place] [address], [facility] GFR/1.73 sq M.predicted among non-blacks MDRD (S/P/Bld) [Vol rate/Area] mL/min/{1.73_m2} Normal >60 [facility] Comment on above: Order Comment: No: D o not add to previous draw Result Comment: Calc ulation may not be valid for patients over 70 years Performed By: #### 4 1000, 83301, 79336 ####[facility] [place] [address], [facility] Glucose [Mass/Vol] 158 mg/dL High 70-100 [facility] Comment on above: Order Comment: No: D o not add to previous draw Performed By: #### 4 1000, 12455, 19142 ####[facility] [id number], [place] Potassium [Moles/Vol] 3.8 mmol/L Normal 3.5-5.1 [facility] Comment on above: Order Comment: No: D o not add to previous draw Performed By: #### 4 1000, 63754, 99029 ####[facility] [place] [address], [place] Sodium [Moles/Vol] 137 mmol/L Normal 136-145 [facility] Comment on above: Order Comment: No: D o not add to previous draw Performed By: #### 4 1000, 35189, 13387 ####[facility] [place] [address], [place] Urea nitrogen [Mass/Vol] 10 mg/dL Normal 7-25 [facility] Comment on above: Order Comment: No: D o not add to previous draw Performed By: #### 4 1000, 17791, 52205 ####[facility] [place] [address], [place] Calcium [Mass/Vol] 8.3 mg/dL Low 8.6-10.3 [facility] Comment on above: Order Comment: No: D o not add to previous draw Performed By: #### 0 0071, 50696 ####[facility] [place] [address], [place] Chloride [Moles/Vol] 100 mmol/L Normal 98-107 [facility] Comment on above: Order Comment: No: D o not add to previous draw Performed By: #### 0 0071, 97244 ####[facility] [place] [address], [place] CO2 [Moles/Vol] 30 mmol/L Normal 21-31 [facility] Comment on above: Order Comment: No: D o not add to previous draw Performed By: #### 0 0071, 52435 ####[facility] [place] [address], [facility] Creatinine [Mass/Vol] 0.93 mg/dL Normal 0.70-1.30 [facility] Comment on above: Order Comment: No: D o not add to previous draw Performed By: #### 0 0071, 06267 ####[facility] [place] [address], [facility] GFR/1.73 sq M.predicted among blacks MDRD (S/P/Bld) [Vol rate/Area] mL/min/{1.73_m2} Normal >60 [facility] Comment on above: Order Comment: No: D o not add to previous draw Result Comment: Calc ulation may not be valid for patients over 70 years Performed By: #### 0 0071, 21990 ####[place] [address] [facility] [place] [place] [address], [facility] GFR/1.73 sq M.predicted among non-blacks MDRD (S/P/Bld) [Vol rate/Area] mL/min/{1.73_m2} Normal >60 [facility] Comment on above: Order Comment: No: D o not add to previous draw Result Comment: Calc ulation may not be valid for patients over 70 years Performed By: #### 0 0071, 84893 ####[facility] [facility] [place] [place] [address], [place] Glucose [Mass/Vol] 144 mg/dL High 70-100 [facility] Comment on above: Order Comment: No: D o not add to previous draw Performed By: #### 0 0071, 60638 ####[facility] [facility] [place] [address], [place] Potassium [Moles/Vol] 4.3 mmol/L Normal 3.5-5.1 [facility] Comment on above: Order Comment: No: D o not add to previous draw Performed By: #### 0 0071, 61800 ####[facility] Sodium [Moles/Vol] 137 mmol/L Normal 136-145 [facility] Comment on above: Order Comment: No: D o not add to previous draw Performed By: #### 0 0071, 92941 ####[place] [id number] [address] Urea nitrogen [Mass/Vol] 10 mg/dL Normal 7-25 [facility] Comment on above: Order Comment: No: D o not add to previous draw Performed By: #### 0 0071, 60072 ####[address] CBC COMPLETE BLOOD COUNTon 10-15-2020 Erythrocyte distribution width (RBC) [Ratio] 14.4 % Normal 11.5-15.0 [facility] Comment on above: Order Comment: No: D o not add to previous draw Performed By: #### 5 0608 ####[place] [id number] [address] Hematocrit (Bld) [Volume fraction] 36.0 % Low 39.0-50.0 [facility] Comment on above: Order Comment: No: D o not add to previous draw Performed By: #### 5 0608 ####[address] Hemoglobin (Bld) [Mass/Vol] 12.2 g/dL Low 13.0-17.0 [facility] Comment on above: Order Comment: No: D o not add to previous draw Performed By: #### 5 0608 ####[address] [place] [address], [facility] MCH (RBC) [Entitic mass] 32.3 pg Normal 27.0-33.0 [facility] Comment on above: Order Comment: No: D o not add to previous draw Performed By: #### 5 0608 ####[facility] [place] [address], [facility] MCHC (RBC) [Mass/Vol] 33.9 g/dL Normal 32.0-35.0 [facility] Comment on above: Order Comment: No: D o not add to previous draw Performed By: #### 5 0608 ####[facility] [facility] [place] [address], [facility] MCV (RBC) [Entitic vol] 95.2 fL Normal 82.0-98.0 [facility] Comment on above: Order Comment: No: D o not add to previous draw Performed By: #### 5 0608 ####[facility] [facility] [place] [address], [facility] Nucleated RBC/100 WBC (Bld) [Ratio] 0 % Normal 0-0 [facility] Comment on above: Order Comment: No: D o not add to previous draw Performed By: #### 5 0608 ####[facility]3000 [facility] [place] [address], [facility] PLAT CNT 153 10*3/uL Normal 150-400 The [facility] Comment on above: Order Comment: No: D o not add to previous draw Performed By: #### 5 0608 ####[facility] [facility] [place] [address], [facility] RBC (Bld) [#/Vol] 3.78 10*6/uL Low 4.20-5.[address] [facility] Comment on above: Order Comment: No: D o not add to previous draw Performed By: #### 5 0608 ####[facility] [place] [address], [facility] WBC (Bld) [#/Vol] 22.45 10*3/uL High 4.00-10.60 [facility] Comment on above: Order Comment: No: D o not add to previous draw Performed By: #### 5 0608 ####[facility] Erythrocyte distribution width (RBC) [Ratio] 14.3 % Normal 11.5-15.0 [facility] Comment on above: Order Comment: No: D o not add to previous draw Performed By: #### 5 0608 ####[facility] Hematocrit (Bld) [Volume fraction] 37.3 % Low 39.0-50.0 [facility] Comment on above: Order Comment: No: D o not add to previous draw Performed By: #### 5 0608 ####[address] Hemoglobin (Bld) [Mass/Vol] 12.5 g/dL Low 13.0-17.0 [facility] Comment on above: Order Comment: No: D o not add to previous draw Performed By: #### 5 0608 ####[address] MCH (RBC) [Entitic mass] 32.1 pg Normal 27.0-33.0 [facility] Comment on above: Order Comment: No: D o not add to previous draw Performed By: #### 5 0608 ####[facility] [place] [address] MCHC (RBC) [Mass/Vol] 33.5 g/dL Normal 32.0-35.0 [facility] Comment on above: Order Comment: No: D o not add to previous draw Performed By: #### 5 0608 ####[address] MCV (RBC) [Entitic vol] 95.9 fL Normal 82.0-98.0 [facility] Comment on above: Order Comment: No: D o not add to previous draw Performed By: #### 5 0608 ####[facility] [facility] [place] [address], [facility] Nucleated RBC/100 WBC (Bld) [Ratio] 0 % Normal 0-0 [facility] Comment on above: Order Comment: No: D o not add to previous draw Performed By: #### 5 0608 ####[facility] [facility] [place] [address], [facility] PLAT CNT 156 10*3/uL Normal 150-400 The [facility] Comment on above: Order Comment: No: D o not add to previous draw Performed By: #### 5 0608 ####[facility] [facility] [place] [address], [facility] RBC (Bld) [#/Vol] 3.89 10*6/uL Low 4.20-5.[address] [facility] Comment on above: Order Comment: No: D o not add to previous draw Performed By: #### 5 0608 ####[facility] [facility] [place] [address], [facility] WBC (Bld) [#/Vol] 24.62 10*3/uL High 4.00-10.60 [facility] Comment on above: Order Comment: No: D o not add to previous draw Performed By: #### 5 0608 ####[facility] [facility] [place] [address], [facility] LACTATE BLOODon 08-14-2021 Lactate [Moles/Vol] 1.2 mmol/L Normal .5-2.[address] [facility] Comment on above: Order Comment: No: D o not add to previous draw Performed By: #### 1 0054 ####[facility] [place] [address], [facility] MAGNESIUM BLOODon 08-14-2021 Magnesium [Mass/Vol] 2.4 mg/dL Normal 1.9-2.7 [facility] Comment on above: Order Comment: No: D o not add to previous draw Performed By: #### 4 1000, 79859, 09859 ####[facility] [place] [address], [place] Magnesium [Mass/Vol] 2.3 mg/dL Normal 1.9-2.7 [facility] Comment on above: Order Comment: No: D o not add to previous draw Performed By: #### 0 0071, 11373 ####[facility] [place] [address], [place] Operative Reporton 1 Operative Report Normal [facility] PHOSPHORUS BLOODon 1 Phosphate [Mass/Vol] 1.8 mg/dL Low 2.5-5.0 [facility] Comment on above: Order Comment: No: D o not add to previous draw Performed By: #### 4 1000, 01452, 25138 ####[facility] [facility] [place] [place] [address], [place] POC GLUCOSE LABon 08-14-2021 Glucose [Mass/Vol] 156 mg/dL High 70-100 [facility] Comment on above: Performed By: #### 8 5499 ####[facility] [facility] [place] [place] [address], [place] Glucose [Mass/Vol] 168 mg/dL High 70-100 [facility] Comment on above: Performed By: #### 8 5499 ####[facility] [place] [address], [place] Glucose [Mass/Vol] 145 mg/dL High 70-100 [facility] Comment on above: Performed By: #### 8 5499 ####[facility] [place] [address], [place] Glucose [Mass/Vol] 157 mg/dL High 70-100 [facility] Comment on above: Performed By: #### 8 5499 ####[facility] [place] [address], [place] Glucose [Mass/Vol] 153 mg/dL High 70-100 [facility] Comment on above: Performed By: #### 8 5499 ####[facility] [place] [address], [facility] BASIC METABOLIC PANELon 12 Calcium [Mass/Vol] 8.2 mg/dL Low 8.6-10.3 [facility] Comment on above: Order Comment: No: D o not add to previous draw Performed By: #### 1 0070, 37188, 17495 ####[facility] [place] [address], [place] Chloride [Moles/Vol] 104 mmol/L Normal 98-107 [facility] Comment on above: Order Comment: No: D o not add to previous draw Performed By: #### 1 0, 24344, 03310 ####[facility] [place] [address], [place] CO2 [Moles/Vol] 27 mmol/L Normal 21-31 The [facility] Comment on above: Order Comment: No: D o not add to previous draw Performed By: #### 1 0, 08430, 84014 ####[facility] [place] [address], [place] Creatinine [Mass/Vol] 0.87 mg/dL Normal 0.70-1.30 [facility] Comment on above: Order Comment: No: D o not add to previous draw Performed By: #### 1 0070, 74822, 73055 ####[facility] [place] [address], [place] GFR/1.73 sq M.predicted among blacks MDRD (S/P/Bld) [Vol rate/Area] mL/min/{1.73_m2} Normal >60 [facility] Comment on above: Order Comment: No: D o not add to previous draw Result Comment: Calc ulation may not be valid for patients over 70 years Performed By: #### 1 0070, 75063, 11444 ####[facility] [place] [address], [facility] GFR/1.73 sq M.predicted among non-blacks MDRD (S/P/Bld) [Vol rate/Area] mL/min/{1.73_m2} Normal >60 [facility] Comment on above: Order Comment: No: D o not add to previous draw Result Comment: Calc ulation may not be valid for patients over 70 years Performed By: #### 1 0070, 09780, 30525 ####[facility] [facility] [place] [address], [place] Glucose [Mass/Vol] 172 mg/dL High 70-100 [facility] Comment on above: Order Comment: No: D o not add to previous draw Performed By: #### 1 0, 87852, 79290 ####[facility] [facility] [place] [address], [facility] Potassium [Moles/Vol] 4.0 mmol/L Normal 3.5-5.1 [facility] Comment on above: Order Comment: No: D o not add to previous draw Performed By: #### 1 0, 51399, 06661 ####[facility] [facility] [place] [place] [address], [place] Sodium [Moles/Vol] 137 mmol/L Normal 136-145 [facility] Comment on above: Order Comment: No: D o not add to previous draw Performed By: #### 1 0070, 25630, 07082 ####[facility] [facility] [place] [place] [address], [place] Urea nitrogen [Mass/Vol] 10 mg/dL Normal 7-25 [facility] Comment on above: Order Comment: No: D o not add to previous draw Performed By: #### 1 0070, 54085, 65063 ####[facility]3000 [facility].[address] CBC COMPLETE BLOOD COUNTon 10-14-2020 Erythrocyte distribution width (RBC) [Ratio] 14.5 % Normal 11.5-15.0 [facility] Comment on above: Order Comment: No: D o not add to previous draw Performed By: #### 5 0608 ####[facility] Hematocrit (Bld) [Volume fraction] 38.5 % Low 39.0-50.0 [facility] Comment on above: Order Comment: No: D o not add to previous draw Performed By: #### 5 0608 ####[facility] Hemoglobin (Bld) [Mass/Vol] 12.5 g/dL Low 13.0-17.0 [facility] Comment on above: Order Comment: No: D o not add to previous draw Performed By: #### 5 0608 ####[place] [address] [facility].[address] MCH (RBC) [Entitic mass] 31.7 pg Normal 27.0-33.0 [facility] Comment on above: Order Comment: No: D o not add to previous draw Performed By: #### 5 0608 ####[facility] [facility] [place] [address], [facility] MCHC (RBC) [Mass/Vol] 32.5 g/dL Normal 32.0-35.0 [facility] Comment on above: Order Comment: No: D o not add to previous draw Performed By: #### 5 0608 ####[facility] [place] [address].[place] [address], [facility] MCV (RBC) [Entitic vol] 97.7 fL Normal 82.0-98.0 [facility] Comment on above: Order Comment: No: D o not add to previous draw Performed By: #### 5 0608 ####[facility]3000 [facility].[address] Nucleated RBC/100 WBC (Bld) [Ratio] 0 % Normal 0-0 [facility] Comment on above: Order Comment: No: D o not add to previous draw Performed By: #### 5 0608 ####[facility] [facility] [place] [address], [facility] PLAT CNT 160 10*3/uL Normal 150-400 The [facility] Comment on above: Order Comment: No: D o not add to previous draw Performed By: #### 5 0608 ####[facility]3000 [facility].[address] RBC (Bld) [#/Vol] 3.94 10*6/uL Low 4.20-5.[address] [facility] Comment on above: Order Comment: No: D o not add to previous draw Performed By: #### 5 0608 ####[facility] [facility] [place] [address], [facility] WBC (Bld) [#/Vol] 26.01 10*3/uL High 4.00-10.60 [facility] Comment on above: Order Comment: No: D o not add to previous draw Performed By: #### 5 0608 ####[facility]3000 [facility].[address] MAGNESIUM BLOODon 08-13-2021 Magnesium [Mass/Vol] 1.6 mg/dL Low 1.9-2.7 [facility] Comment on above: Order Comment: No: D o not add to previous draw Performed By: #### 1 0070, 36986, 99533 ####[facility] [facility] [place] [address], [place] PHOSPHORUS BLOODon Phosphate [Mass/Vol] 2.3 mg/dL Low 2.5-5.0 [facility] Comment on above: Order Comment: No: D o not add to previous draw Performed By: #### 1 0070, 06496, 53590 ####[facility] [place] [address], [place] POC GLUCOSE LABon 08-13-2021 Glucose [Mass/Vol] 159 mg/dL High 70-100 [facility] Comment on above: Performed By: #### 8 5499 ####[facility] [place] [address], [place] Glucose [Mass/Vol] 174 mg/dL High 70-100 [facility] Comment on above: Performed By: #### 8 5499 ####[facility] [place] [address], [place] Glucose [Mass/Vol] 172 mg/dL High 70-100 [facility] Comment on above: Performed By: #### 8 5499 ####[facility] [place] [address], [place] Glucose [Mass/Vol] 155 mg/dL High 70-100 [facility] Comment on above: Performed By: #### 8 5499 ####[facility] [place] [address], [place] Glucose [Mass/Vol] 168 mg/dL High 70-100 [facility] Comment on above: Performed By: #### 8 5499 ####[facility] [place] [address], [place] Glucose [Mass/Vol] 149 mg/dL High 70-100 [facility] Comment on above: Performed By: #### 8 5499 ####[facility] [place] [address], [facility] BASIC METABOLIC PANELon 12- Calcium [Mass/Vol] 8.5 mg/dL Low 8.6-10.3 [facility] Comment on above: Order Comment: No: D o not add to previous draw Performed By: #### 0 0071, 22875, 15648 ####[facility] [place] [address], [facility] Chloride [Moles/Vol] 103 mmol/L Normal 98-107 [facility] Comment on above: Order Comment: No: D o not add to previous draw Performed By: #### 0 0071, 96910, 55944 ####[facility] [place] [address], [facility] CO2 [Moles/Vol] 26 mmol/L Normal 21-31 [facility] Comment on above: Order Comment: No: D o not add to previous draw Performed By: #### 0 0071, 87342, 05059 ####[facility] [place] [address], [facility] Creatinine [Mass/Vol] 0.79 mg/dL Normal 0.70-1.30 [facility] Comment on above: Order Comment: No: D o not add to previous draw Performed By: #### 0 0071, 79022, 06582 ####[facility] [place] [address], [facility] GFR/1.73 sq M.predicted among blacks MDRD (S/P/Bld) [Vol rate/Area] mL/min/{1.73_m2} Normal >60 [facility] Comment on above: Order Comment: No: D o not add to previous draw Result Comment: Calc ulation may not be valid for patients over 70 years Performed By: #### 0 0071, 64150, 99859 ####[facility] [place] [address], [place] GFR/1.73 sq M.predicted among non-blacks MDRD (S/P/Bld) [Vol rate/Area] mL/min/{1.73_m2} Normal >60 [facility] Comment on above: Order Comment: No: D o not add to previous draw Result Comment: Calc ulation may not be valid for patients over 70 years Performed By: #### 0 0071, 64796, 07119 ####[facility] [place] [address], [facility] Glucose [Mass/Vol] 162 mg/dL High 70-100 [facility] Comment on above: Order Comment: No: D o not add to previous draw Performed By: #### 0 0071, 67743, 55490 ####[facility] [place] [address], [facility] Potassium [Moles/Vol] 3.7 mmol/L Normal 3.5-5.1 [facility] Comment on above: Order Comment: No: D o not add to previous draw Performed By: #### 0 0071, 46871, 12548 ####[facility] [facility] [place] [address], [facility] Sodium [Moles/Vol] 137 mmol/L Normal 136-145 [facility] Comment on above: Order Comment: No: D o not add to previous draw Performed By: #### 0 0071, 64312, 79468 ####[facility] [place] [address], [facility] Urea nitrogen [Mass/Vol] 15 mg/dL Normal 7-25 [facility] Comment on above: Order Comment: No: D o not add to previous draw Performed By: #### 0 0071, 26030, 22659 ####[facility] [place] [address], [facility] CBC COMPLETE BLOOD COUNTon 10-13-2020 Erythrocyte distribution width (RBC) [Ratio] 14.5 % Normal 11.5-15.0 [facility] Comment on above: Order Comment: No: D o not add to previous draw Performed By: #### 5 0608 ####[facility]3000 [facility].[address] Hematocrit (Bld) [Volume fraction] 42.4 % Normal 39.0-50.0 [facility] Comment on above: Order Comment: No: D o not add to previous draw Performed By: #### 5 0608 ####[facility] [place] [address] Hemoglobin (Bld) [Mass/Vol] 13.6 g/dL Normal 13.0-17.0 [facility] Comment on above: Order Comment: No: D o not add to previous draw Performed By: #### 5 0608 ####[address] MCH (RBC) [Entitic mass] 31.6 pg Normal 27.0-33.0 [facility] Comment on above: Order Comment: No: D o not add to previous draw Performed By: #### 5 0608 ####[address] MCHC (RBC) [Mass/Vol] 32.1 g/dL Normal 32.0-35.0 [facility] Comment on above: Order Comment: No: D o not add to previous draw Performed By: #### 5 0608 ####[facility] [place] [address] MCV (RBC) [Entitic vol] 98.4 fL High 82.0-98.0 [facility] Comment on above: Order Comment: No: D o not add to previous draw Performed By: #### 5 0608 ####[address] Nucleated RBC/100 WBC (Bld) [Ratio] 0 % Normal 0-0 [facility] Comment on above: Order Comment: No: D o not add to previous draw Performed By: #### 5 0608 ####[facility] [place] [address], [facility] PLAT CNT 203 10*3/uL Normal 150-400 [facility] Comment on above: Order Comment: No: D o not add to previous draw Performed By: #### 5 0608 ####[facility] [place] [address], [facility] RBC (Bld) [#/Vol] 4.31 10*6/uL Normal 4.20-5.[address] [facility] Comment on above: Order Comment: No: D o not add to previous draw Performed By: #### 5 0608 ####[facility] [place] [address], [facility] WBC (Bld) [#/Vol] 33.31 10*3/uL High 4.00-10.60 [facility] Comment on above: Order Comment: No: D o not add to previous draw Performed By: #### 5 0608 ####[facility] MAGNESIUM BLOODon 08-12-2021 Magnesium [Mass/Vol] 1.7 mg/dL Low 1.9-2.7 [facility] Comment on above: Order Comment: No: D o not add to previous draw Performed By: #### 0 0071, 91762, 54091 ####[facility] [place] [address], [facility] PHOSPHORUS BLOODon Phosphate [Mass/Vol] 3.3 mg/dL Normal 2.5-5.0 [facility] Comment on above: Order Comment: No: D o not add to previous draw Performed By: #### 0 0071, 24985, 67609 ####[facility] [place] [address], [place] POC GLUCOSE LABon 08-12-2021 Glucose [Mass/Vol] 176 mg/dL High 70-100 [facility] Comment on above: Performed By: #### 8 5499 ####[facility] [place] [address], [place] Glucose [Mass/Vol] 165 mg/dL High 70-100 [facility] Comment on above: Performed By: #### 8 5499 ####[facility] [place] [address], [place] Glucose [Mass/Vol] 153 mg/dL High 70-100 [facility] Comment on above: Performed By: #### 8 5499 ####[facility] [place] [address], [place] Glucose [Mass/Vol] 175 mg/dL High 70-100 [facility] Comment on above: Performed By: #### 8 5499 ####[facility] [place] [address], [place] Glucose [Mass/Vol] 171 mg/dL High 70-100 [facility] Comment on above: Performed By: #### 8 5499 ####[facility] [place] [address], [place] POC GLUCOSE LABon 08-11-2021 Glucose [Mass/Vol] 211 mg/dL High 70-100 [facility] Comment on above: Performed By: #### 8 5499 ####[facility] [place] [address], [place] Glucose [Mass/Vol] 265 mg/dL High 70-100 [facility] Comment on above: Performed By: #### 8 5499 ####[facility] [place] [address], [place] Glucose [Mass/Vol] 106 mg/dL High 70-100 [facility] Comment on above: Performed By: #### 8 5499 ####[facility] [facility] [place] [address], [facility] BASIC METABOLIC PANELon 11-3 0-2020 Calcium [Mass/Vol] 9.1 mg/dL Normal 8.6-10.3 [facility] Comment on above: Performed By: #### 0 0071 ####[facility] [place] [address], [facility] Chloride [Moles/Vol] 101 mmol/L Normal 98-107 [facility] Comment on above: Performed By: #### 0 0071 ####[facility] [place] [address], [place] CO2 [Moles/Vol] 27 mmol/L Normal 21-31 The [facility] Comment on above: Performed By: #### 0 0071 ####[facility] [facility] [place] [address], [facility] Creatinine [Mass/Vol] 0.92 mg/dL Normal 0.70-1.30 The [facility] Comment on above: Performed By: #### 0 0071 ####[facility] [facility] [place] [place] [address], [place] GFR/1.73 sq M.predicted among blacks MDRD (S/P/Bld) [Vol rate/Area] mL/min/{1.73_m2} Normal >60 The [facility] Comment on above: Result Comment: Calc ulation may not be valid for patients over 70 years Performed By: #### 0 0071 ####[facility] [place] [address], [place] GFR/1.73 sq M.predicted among non-blacks MDRD (S/P/Bld) [Vol rate/Area] mL/min/{1.73_m2} Normal >60 The [facility] Comment on above: Result Comment: Calc ulation may not be valid for patients over 70 years Performed By: #### 0 0071 ####[facility] [facility].[address] Glucose [Mass/Vol] 104 mg/dL High 70-100 The [facility] Comment on above: Performed By: #### 0 0071 ####[facility] [facility].[address] Potassium [Moles/Vol] 3.5 mmol/L Normal 3.5-5.1 The [facility] Comment on above: Performed By: #### 0 0071 ####[facility] [facility].[address] Sodium [Moles/Vol] 136 mmol/L Normal 136-145 [facility] Comment on above: Performed By: #### 0 0071 ####[facility] [facility].[address] Urea nitrogen [Mass/Vol] 23 mg/dL Normal 7-25 The [facility] Comment on above: Performed By: #### 0 1 ####[facility] [facility].[address] CBC W/DIFFon 08-01-2021 ABS IMM GRANS 0.1 10*3/uL Normal 0.0-0.2 The [facility] Comment on above: Performed By: #### 5 102 ####[facility] ABS NEUTROPHILS 4.9 10*3/uL Normal 1.6-7.6 The [facility] Comment on above: Performed By: #### 5 102 ####[facility] [place] [address], [facility] Basophils (Bld) [#/Vol] 0.1 10*3/uL Normal 0.0-0.2 The [facility] Comment on above: Performed By: #### 5 0103 ####[facility] [facility].[address] Basophils/100 WBC (Bld) 0.3 % Normal 0.0-1.0 The [facility] Comment on above: Performed By: #### 5 0103 ####[facility] [facility].[address] Eosinophils (Bld) [#/Vol] 0.1 10*3/uL Normal 0.0-0.5 The [facility] Comment on above: Performed By: #### 5 0103 ####[facility] [facility].[address] Eosinophils/100 WBC (Bld) 0.2 % Normal 0.0-6.0 The [facility] Comment on above: Performed By: #### 5 0103 ####[facility] [facility].[address] Erythrocyte distribution width (RBC) [Ratio] 14.6 % Normal 11.5-15.0 The [facility] Comment on above: Performed By: #### 5 3 ####[facility] [facility].[address] Hematocrit (Bld) [Volume fraction] 44.2 % Normal 39.0-50.0 The [facility] Comment on above: Performed By: #### 5 3 ####[facility] [facility].[address] Hemoglobin (Bld) [Mass/Vol] 14.3 g/dL Normal 13.0-17.0 The [facility] Comment on above: Performed By: #### 5 3 ####[facility] IMMATURE GRANS 0.3 % Normal 0.0-1.0 [facility] Comment on above: Performed By: #### 5 0103 ####[facility] [place] [address] Lymphocytes (Bld) [#/Vol] 20.8 10*3/uL High 1.2-4.0 The [facility] Comment on above: Performed By: #### 5 0103 ####[facility] [place] [address] Lymphocytes/100 WBC (Bld) 78.7 % High 20.0-45.0 The [facility] Comment on above: Performed By: #### 5 0103 ####[address] MCH (RBC) [Entitic mass] 31.8 pg Normal 27.0-33.0 The [facility] Comment on above: Performed By: #### 5 0103 ####[address] MCHC (RBC) [Mass/Vol] 32.4 g/dL Normal 32.0-35.0 The [facility] Comment on above: Performed By: #### 5 3 ####[address] MCV (RBC) [Entitic vol] 98.4 fL High 82.0-98.0 The [facility] Comment on above: Performed By: #### 5 3 ####[facility] [place] [address] Monocytes (Bld) [#/Vol] 0.6 10*3/uL Normal 0.1-1.0 The [facility] Comment on above: Performed By: #### 5 3 ####[place] [address], [facility] MONOS 2.2 % Low 5.0-12.0 [facility] Comment on above: Performed By: #### 5 102 ####[facility] [place] [address], [facility] Neutrophils/100 WBC (Bld) 18.3 % Low 40.0-72.0 [facility] Comment on above: Performed By: #### 5 102 ####[facility] [place] [address], [facility] Nucleated RBC/100 WBC (Bld) [Ratio] 0 % Normal 0-0 [facility] Comment on above: Performed By: #### 5 102 ####[facility] [facility] [place] [address], [facility] PLAT CNT 174 10*3/uL Normal 150-400 The [facility] Comment on above: Performed By: #### 5 102 ####[facility] [facility] [place] [address], [facility] RBC (Bld) [#/Vol] 4.49 10*6/uL Normal 4.20-5.[address] [facility] Comment on above: Performed By: #### 102 ####[facility] [facility] [place] [address], [facility] SMUDGE CELLS MANY Normal The [facility] Comment on above: Performed By: #### 5 102 ####[facility] [facility] [place] [address], [facility] WBC (Bld) [#/Vol] 26.44 10*3/uL High 4.00-10.60 The [facility] Comment on above: Performed By: #### 102 ####[facility] [facility] [place] [address], [facility] PROTHROMBIN TIMEon 1 INR Coag (PPP) [Relative time] 0.99 {INR} Normal 0.91-1.16 [facility] Comment on above: Result Comment: ACCC P RECOMMENDED INR FOR WARFARIN THERAPY CONDITION INRPROPHYLAXIS OF VENOUS THROMBOSIS 2-3(HIGH-RISK SURGERY)TREATMENT OF VENOUS THROMBOSIS 2-3TREATMENT OF PULMONARY EMBOLISM 2-3PREVENTION OF SYSTEMIC EMBOLISM: 2-3 ACUTE MYOCARDIAL INFARCTION TISSUE HEART VALVES VALVULAR HEART DISEASE ATRIAL FIBRILLATION RECURRENT SYSTEMIC EMBOLISMMECHANICAL HEART VALVE 2.5-3.5 FROM: ORAL ANTICOAGULANTS. MECHANISM OF ACTION, CLINICALEFFECTIVENESS, AND OPTIMAL THERAPEUTIC RANGE. [id number]. Performed By: #### 5 6101 ####[facility] [facility].[address] PT Coag (PPP) [Time] 13.1 s Normal 12.3-14.8 [facility] Comment on above: Result Comment: ALL RESULTS MUST BE INTERPRETED WITH RESPECT TO BLOOD DRAWING ARTIFACTOR DILUTION ERROR OF ANTICOAGULANT AT THE TIME OF SAMPLING. Performed By: #### 5 6101 ####[facility] [facility] [place] [address], [facility] Operative Reporton Operative Report Normal The [facility] POC GLUCOSE LABon 06-21-2021 Glucose [Mass/Vol] 139 mg/dL High 70-100 [facility] Comment on above: Performed By: #### 8 5499 ####[facility] [facility] [place] [address], [place] POC GLUCOSE LABon 11-09-2020 Glucose [Mass/Vol] 101 mg/dL High 70-100 [facility] Comment on above: Performed By: #### 8 5499 ####[facility] [place] [address], [place] Glucose [Mass/Vol] 127 mg/dL High 70-100 [facility] Comment on above: Performed By: #### 8 5499 ####[facility] [place] [address], [place] POC GLUCOSE LABon 11-08-2020 Glucose [Mass/Vol] 206 mg/dL High 70-100 [facility] Comment on above: Performed By: #### 8 5499 ####[facility] [place] [address], [place] Glucose [Mass/Vol] 79 mg/dL Normal 70-100 [facility] Comment on above: Performed By: #### 8 5499 ####[facility] [place] [address], [place] Glucose [Mass/Vol] 186 mg/dL High 70-100 [facility] Comment on above: Performed By: #### 8 5499 ####[facility] [place] [address], [place] Glucose [Mass/Vol] 132 mg/dL High 70-100 [facility] Comment on above: Performed By: #### 8 5499 ####[facility] [place] [address], [place] BASIC METABOLIC PANELon 03-0 Calcium [Mass/Vol] 8.4 mg/dL Low 8.6-10.3 [facility] Comment on above: Order Comment: No: D o not add to previous draw Performed By: #### 1 0070, [id number] ####[facility] [place] [address], [facility] Chloride [Moles/Vol] 104 mmol/L Normal 98-107 The [facility] Comment on above: Order Comment: No: D o not add to previous draw Performed By: #### 1 69, 25678 ####[facility] [place] [address], [place] CO2 [Moles/Vol] 29 mmol/L Normal 21-31 The [facility] Comment on above: Order Comment: No: D o not add to previous draw Performed By: #### 1 69, 21203 ####[facility] [place] [address], [facility] Creatinine [Mass/Vol] 0.92 mg/dL Normal 0.70-1.30 The [facility] Comment on above: Order Comment: No: D o not add to previous draw Performed By: #### 1 69, 59657 ####[facility] [place] [address], [place] GFR/1.73 sq M.predicted among blacks MDRD (S/P/Bld) [Vol rate/Area] mL/min/{1.73_m2} Normal >60 [facility] Comment on above: Order Comment: No: D o not add to previous draw Result Comment: Calc ulation may not be valid for patients over 70 years Performed By: #### 1 69, [id number] ####[facility] [place] [address], [place] GFR/1.73 sq M.predicted among non-blacks MDRD (S/P/Bld) [Vol rate/Area] mL/min/{1.73_m2} Normal >60 The [facility] Comment on above: Order Comment: No: D o not add to previous draw Result Comment: Calc ulation may not be valid for patients over 70 years Performed By: #### 1 69, 07518 ####[facility] [place] [address], [facility] Glucose [Mass/Vol] 92 mg/dL Normal 70-100 [facility] Comment on above: Order Comment: No: D o not add to previous draw Performed By: #### 1 69, [id number] ####[facility] [facility] [place] [address], [facility] Potassium [Moles/Vol] 3.9 mmol/L Normal 3.5-5.1 [facility] Comment on above: Order Comment: No: D o not add to previous draw Performed By: #### 1 69, [id number] ####[facility] [place] [address], [facility] Sodium [Moles/Vol] 138 mmol/L Normal 136-145 [facility] Comment on above: Order Comment: No: D o not add to previous draw Performed By: #### 1 69, [id number] ####[facility] Urea nitrogen [Mass/Vol] 13 mg/dL Normal 7-25 [facility] Comment on above: Order Comment: No: D o not add to previous draw Performed By: #### 1 69, 49970 ####[facility] [facility] [place] [address], [facility] CBC W/DIFFon 11-07-2020 ABS IMM GRANS 0.1 10*3/uL Normal 0.0-0.2 The [facility] Comment on above: Order Comment: No: D o not add to previous draw Performed By: #### 5 3 ####[facility] [facility] [place] [address], [facility] ABS NEUTROPHILS 3.3 10*3/uL Normal 1.6-7.6 The [facility] Comment on above: Order Comment: No: D o not add to previous draw Performed By: #### 5 3 ####[facility] [facility] [place] [address], [facility] Basophils (Bld) [#/Vol] 0.1 10*3/uL Normal 0.0-0.2 The [facility] Comment on above: Order Comment: No: D o not add to previous draw Performed By: #### 5 0103 ####[facility] [place] [address], [facility] Basophils/100 WBC (Bld) 0.3 % Normal 0.0-1.0 [facility] Comment on above: Order Comment: No: D o not add to previous draw Performed By: #### 5 0103 ####[facility] [facility] [place] [address], [facility] Eosinophils (Bld) [#/Vol] 0.2 10*3/uL Normal 0.0-0.5 [facility] Comment on above: Order Comment: No: D o not add to previous draw Performed By: #### 5 0103 ####[facility] [facility] [place] [address], [facility] Eosinophils/100 WBC (Bld) 0.9 % Normal 0.0-6.0 [facility] Comment on above: Order Comment: No: D o not add to previous draw Performed By: #### 5 3 ####[facility] [facility].[address] Erythrocyte distribution width (RBC) [Ratio] 14.9 % Normal 11.5-15.0 [facility] Comment on above: Order Comment: No: D o not add to previous draw Performed By: #### 5 0103 ####[facility] [place] [address], [facility] Hematocrit (Bld) [Volume fraction] 31.8 % Low 39.0-50.0 [facility] Comment on above: Order Comment: No: D o not add to previous draw Performed By: #### 5 0103 ####[facility] Hemoglobin (Bld) [Mass/Vol] 10.0 g/dL Low 13.0-17.0 [facility] Comment on above: Order Comment: No: D o not add to previous draw Performed By: #### 5 3 ####[facility] IMMATURE GRANS 0.5 % Normal 0.0-1.0 The [facility] Comment on above: Order Comment: No: D o not add to previous draw Performed By: #### 5 3 ####[facility] [place] [address] Lymphocytes (Bld) [#/Vol] 20.2 10*3/uL High 1.2-4.0 [facility] Comment on above: Order Comment: No: D o not add to previous draw Performed By: #### 5 0103 ####[facility] [place] [address] Lymphocytes/100 WBC (Bld) 83.1 % High 20.0-45.0 [facility] Comment on above: Order Comment: No: D o not add to previous draw Performed By: #### 5 3 ####[facility] MCH (RBC) [Entitic mass] 31.6 pg Normal 27.0-33.0 [facility] Comment on above: Order Comment: No: D o not add to previous draw Performed By: #### 5 0103 ####[facility] [place] [address] MCHC (RBC) [Mass/Vol] 31.4 g/dL Low 32.0-35.0 [facility] Comment on above: Order Comment: No: D o not add to previous draw Performed By: #### 5 0103 ####[facility] [place] [address], [facility] MCV (RBC) [Entitic vol] 100.6 fL High 82.0-98.0 [facility] Comment on above: Order Comment: No: D o not add to previous draw Performed By: #### 5 0103 ####[facility] [facility] [place] [address], [facility] Monocytes (Bld) [#/Vol] 0.4 10*3/uL Normal 0.1-1.0 [facility] Comment on above: Order Comment: No: D o not add to previous draw Performed By: #### 5 0103 ####[facility] [place] [address].[place] [address], [facility] MONOS 1.6 % Low 5.0-12.0 [facility] Comment on above: Order Comment: No: D o not add to previous draw Performed By: #### 5 0103 ####[facility] [facility] [place] [address], [facility] Neutrophils/100 WBC (Bld) 13.6 % Low 40.0-72.0 [facility] Comment on above: Order Comment: No: D o not add to previous draw Performed By: #### 5 3 ####[facility] [facility] [place] [address], [facility] Nucleated RBC/100 WBC (Bld) [Ratio] 0 % Normal 0-0 [facility] Comment on above: Order Comment: No: D o not add to previous draw Performed By: #### 5 0103 ####[facility] [place] [address].[place] [address], [facility] PLAT CNT 225 10*3/uL Normal 150-400 The [facility] Comment on above: Order Comment: No: D o not add to previous draw Performed By: #### 5 3 ####[facility] [facility] [place] [address], [facility] RBC (Bld) [#/Vol] 3.16 10*6/uL Low 4.20-5.[address] [facility] Comment on above: Order Comment: No: D o not add to previous draw Performed By: #### 5 0103 ####[facility] [facility] [place] [address], [facility] SMUDGE CELLS MANY PRESENT Normal The [facility] Comment on above: Order Comment: No: D o not add to previous draw Result Comment: This result added by [facility] on 11/07/2020 09:18.AUTO DIF Performed By: #### 5 0103 ####[place] [address], [facility] WBC (Bld) [#/Vol] 24.33 10*3/uL High 4.00-10.60 [facility] Comment on above: Order Comment: No: D o not add to previous draw Performed By: #### 5 0103 ####[facility] [facility].[address] MAGNESIUM BLOODon 11-07-2020 Magnesium [Mass/Vol] 2.0 mg/dL Normal 1.9-2.7 [facility] Comment on above: Order Comment: No: D o not add to previous draw Performed By: #### 1 0070, [id number] ####[facility] [facility].[address] POC GLUCOSE LABon 11-07-2020 Glucose [Mass/Vol] 164 mg/dL High 70-100 [facility] Comment on above: Performed By: #### 8 5499 ####[facility] [facility] [place] [address], [facility] Glucose [Mass/Vol] 128 mg/dL High 70-100 [facility] Comment on above: Performed By: #### 8 5499 ####[facility] [place] [address], [place] Glucose [Mass/Vol] 143 mg/dL High 70-100 [facility] Comment on above: Performed By: #### 8 5499 ####[facility] [place] [address], [place] Glucose [Mass/Vol] 100 mg/dL Normal 70-100 [facility] Comment on above: Performed By: #### 8 5499 ####[facility] [place] [address], [place] BASIC METABOLIC PANELon 03-0 Calcium [Mass/Vol] 8.2 mg/dL Low 8.6-10.3 [facility] Comment on above: Order Comment: No: D o not add to previous draw Performed By: #### 0 0071, 19991 ####[facility] [place] [address], [place] Chloride [Moles/Vol] 105 mmol/L Normal 98-107 [facility] Comment on above: Order Comment: No: D o not add to previous draw Performed By: #### 0 0071, 59415 ####[facility] [place] [address], [place] CO2 [Moles/Vol] 28 mmol/L Normal 21-31 The [facility] Comment on above: Order Comment: No: D o not add to previous draw Performed By: #### 0 0071, 11425 ####[facility] [place] [address], [place] Creatinine [Mass/Vol] 0.86 mg/dL Normal 0.70-1.30 [facility] Comment on above: Order Comment: No: D o not add to previous draw Performed By: #### 0 0071, 07118 ####[facility] [place] [address], [facility] GFR/1.73 sq M.predicted among blacks MDRD (S/P/Bld) [Vol rate/Area] mL/min/{1.73_m2} Normal >60 The [facility] Comment on above: Order Comment: No: D o not add to previous draw Result Comment: Calc ulation may not be valid for patients over 70 years Performed By: #### 0 0071, [id number] ####[facility] [place] [address], [facility] GFR/1.73 sq M.predicted among non-blacks MDRD (S/P/Bld) [Vol rate/Area] mL/min/{1.73_m2} Normal >60 The [facility] Comment on above: Order Comment: No: D o not add to previous draw Result Comment: Calc ulation may not be valid for patients over 70 years Performed By: #### 0 0071, 59180 ####[facility] [place] [address], [facility] Glucose [Mass/Vol] 115 mg/dL High 70-100 [facility] Comment on above: Order Comment: No: D o not add to previous draw Performed By: #### 0 0071, 16497 ####[facility] [place] [address], [facility] Potassium [Moles/Vol] 4.2 mmol/L Normal 3.5-5.1 [facility] Comment on above: Order Comment: No: D o not add to previous draw Performed By: #### 0 0071, 77265 ####[facility] [place] [address], [place] Sodium [Moles/Vol] 137 mmol/L Normal 136-145 [facility] Comment on above: Order Comment: No: D o not add to previous draw Performed By: #### 0 0071, 28611 ####[facility] [place] [address], [place] Urea nitrogen [Mass/Vol] 10 mg/dL Normal 7-25 [facility] Comment on above: Order Comment: No: D o not add to previous draw Performed By: #### 0 0071, 90547 ####[facility] [facility] [place] [address], [facility] CBC W/DIFFon 11-06-2020 ABS IMM GRANS 0.2 10*3/uL Normal 0.0-0.2 The [facility] Comment on above: Order Comment: No: D o not add to previous draw Performed By: #### 5 0103 ####[facility] [place] [address], [facility] ABS NEUTROPHILS 3.8 10*3/uL Normal 1.6-7.6 The [facility] Comment on above: Order Comment: No: D o not add to previous draw Performed By: #### 5 0103 ####[facility] [facility] [place] [address], [facility] Basophils (Bld) [#/Vol] 0.1 10*3/uL Normal 0.0-0.2 The [facility] Comment on above: Order Comment: No: D o not add to previous draw Performed By: #### 5 3 ####[facility] [facility] [place] [address], [facility] Basophils/100 WBC (Bld) 0.3 % Normal 0.0-1.0 [facility] Comment on above: Order Comment: No: D o not add to previous draw Performed By: #### 5 0103 ####[facility] [facility] [place] [address], [facility] Eosinophils (Bld) [#/Vol] 0.2 10*3/uL Normal 0.0-0.5 The [facility] Comment on above: Order Comment: No: D o not add to previous draw Performed By: #### 5 3 ####[facility] Eosinophils/100 WBC (Bld) 0.7 % Normal 0.0-6.0 [facility] Comment on above: Order Comment: No: D o not add to previous draw Performed By: #### 5 0103 ####[facility] Erythrocyte distribution width (RBC) [Ratio] 14.9 % Normal 11.5-15.0 [facility] Comment on above: Order Comment: No: D o not add to previous draw Performed By: #### 5 0103 ####[place] [id number] [address] Hematocrit (Bld) [Volume fraction] 32.5 % Low 39.0-50.0 [facility] Comment on above: Order Comment: No: D o not add to previous draw Performed By: #### 5 0103 ####[facility] Hemoglobin (Bld) [Mass/Vol] 10.6 g/dL Low 13.0-17.0 [facility] Comment on above: Order Comment: No: D o not add to previous draw Performed By: #### 5 0103 ####[facility] IMMATURE GRANS 0.7 % Normal 0.0-1.0 The [facility] Comment on above: Order Comment: No: D o not add to previous draw Performed By: #### 5 0103 ####[facility] [place] [address], [facility] Lymphocytes (Bld) [#/Vol] 23.3 10*3/uL High 1.2-4.0 [facility] Comment on above: Order Comment: No: D o not add to previous draw Performed By: #### 5 0103 ####[facility] Lymphocytes/100 WBC (Bld) 81.5 % High 20.0-45.0 [facility] Comment on above: Order Comment: No: D o not add to previous draw Performed By: #### 5 0103 ####[facility] [place] [address], [facility] MCH (RBC) [Entitic mass] 32.2 pg Normal 27.0-33.0 [facility] Comment on above: Order Comment: No: D o not add to previous draw Performed By: #### 5 0103 ####[address] MCHC (RBC) [Mass/Vol] 32.6 g/dL Normal 32.0-35.0 [facility] Comment on above: Order Comment: No: D o not add to previous draw Performed By: #### 5 0103 ####[facility] [place] [address], [facility] MCV (RBC) [Entitic vol] 98.8 fL High 82.0-98.0 [facility] Comment on above: Order Comment: No: D o not add to previous draw Performed By: #### 5 3 ####[address] Monocytes (Bld) [#/Vol] 1.0 10*3/uL Normal 0.1-1.0 [facility] Comment on above: Order Comment: No: D o not add to previous draw Performed By: #### 5 0103 ####[facility] [place] [address] MONOS 3.5 % Low 5.0-12.0 [facility] Comment on above: Order Comment: No: D o not add to previous draw Performed By: #### 5 0103 ####[facility] [place] [address] [place] [address], [facility] Neutrophils/100 WBC (Bld) 13.3 % Low 40.0-72.0 [facility] Comment on above: Order Comment: No: D o not add to previous draw Performed By: #### 5 0103 ####[facility] [id number], [facility] Nucleated RBC/100 WBC (Bld) [Ratio] 0 % Normal 0-0 [facility] Comment on above: Order Comment: No: D o not add to previous draw Performed By: #### 5 0103 ####[facility]3000 [facility] [place] [address], [facility] PLAT CNT 232 10*3/uL Normal 150-400 The [facility] Comment on above: Order Comment: No: D o not add to previous draw Performed By: #### 5 3 ####[facility]3000 [facility] [place] [address], [facility] RBC (Bld) [#/Vol] 3.29 10*6/uL Low 4.20-5.70 [facility] Comment on above: Order Comment: No: D o not add to previous draw Performed By: #### 5 3 ####[facility]3000 [facility] [place] [address], [facility] SMUDGE CELLS MANY Normal The [facility] Comment on above: Order Comment: No: D o not add to previous draw Performed By: #### 5 0103 ####[facility]3000 [facility] [place] [place] [address], [facility] WBC (Bld) [#/Vol] 28.54 10*3/uL High 4.00-10.60 [facility] Comment on above: Order Comment: No: D o not add to previous draw Performed By: #### 5 3 ####[facility] [place] [address], [facility] MAGNESIUM BLOODon 11-06-2020 Magnesium [Mass/Vol] 2.1 mg/dL Normal 1.9-2.7 [facility] Comment on above: Order Comment: No: D o not add to previous draw Performed By: #### 0 0071, 63092 ####[facility]3000 [facility] [place] [address], [facility] POC GLUCOSE LABon 11-06-2020 Glucose [Mass/Vol] 155 mg/dL High 70-100 [facility] Comment on above: Performed By: #### 8 5499 ####[facility] [facility] [place] [address], [facility] Glucose [Mass/Vol] 161 mg/dL High 70-100 [facility] Comment on above: Performed By: #### 8 5499 ####[facility] [facility] [place] [address], [facility] Glucose [Mass/Vol] 118 mg/dL High 70-100 [facility] Comment on above: Performed By: #### 8 5499 ####[place] [id number] [facility] [place] [address], [facility] Glucose [Mass/Vol] 119 mg/dL High 70-100 [facility] Comment on above: Performed By: #### 8 5499 ####[facility] [facility] [place] [address], [facility] BASIC METABOLIC PANELon Calcium [Mass/Vol] 8.2 mg/dL Low 8.6-10.3 [facility] Comment on above: Order Comment: No: D o not add to previous drawNURSE DRAW PATTY MOLINA Performed By: #### 0 0071, 77665 ####[facility]3000 [facility].[place] [id number], [facility] Chloride [Moles/Vol] 106 mmol/L Normal 98-107 [facility] Comment on above: Order Comment: No: D o not add to previous drawNURSE DRAW RN JESSE Performed By: #### 0 0071, 76645 ####[facility] [place] [address], [facility] CO2 [Moles/Vol] 25 mmol/L Normal 21-31 The [facility] Comment on above: Order Comment: No: D o not add to previous drawNURSE DRAW RN JESSE Performed By: #### 0 0071, 34895 ####[facility] [facility] [place] [address], [facility] Creatinine [Mass/Vol] 0.84 mg/dL Normal 0.70-1.30 [facility] Comment on above: Order Comment: No: D o not add to previous drawNURSE DRAW RN JESSE Performed By: #### 0 0071, 56684 ####[facility] [facility] [place] [address], [facility] GFR/1.73 sq M.predicted among blacks MDRD (S/P/Bld) [Vol rate/Area] mL/min/{1.73_m2} Normal >60 [facility] Comment on above: Order Comment: No: D o not add to previous drawNURSE DRAW RN JESSE Result Comment: Calc ulation may not be valid for patients over 70 years Performed By: #### 0 0071, 83598 ####[facility] [facility] [place] [address], [facility] GFR/1.73 sq M.predicted among non-blacks MDRD (S/P/Bld) [Vol rate/Area] mL/min/{1.73_m2} Normal >60 [facility] Comment on above: Order Comment: No: D o not add to previous drawNURSE DRAW RN JESSE Result Comment: Calc ulation may not be valid for patients over 70 years Performed By: #### 0 0071, 57693 ####[facility] [facility] [place] [address], [place] Glucose [Mass/Vol] 134 mg/dL High 70-100 [facility] Comment on above: Order Comment: No: D o not add to previous drawNURSE DRAW RN JESSE Performed By: #### 0 0071, 50718 ####[facility] [facility] [place] [address], [facility] Potassium [Moles/Vol] 4.0 mmol/L Normal 3.5-5.1 [facility] Comment on above: Order Comment: No: D o not add to previous drawNURSE DRAW RN JESSE Performed By: #### 0 0071, 60245 ####[facility]3000 [facility].[address] Sodium [Moles/Vol] 136 mmol/L Normal 136-145 [facility] Comment on above: Order Comment: No: D o not add to previous drawNURSE DRAW RN JESSE Performed By: #### 0 0071, 97233 ####[facility]3000 [facility].[address] Urea nitrogen [Mass/Vol] 9 mg/dL Normal 7-25 [facility] Comment on above: Order Comment: No: D o not add to previous drawNURSE DRAW RN JESSE Performed By: #### 0 0071, 41497 ####[facility]3000 [facility].[address] CBC W/DIFFon 11-05-2020 ABS IMM GRANS 0.2 10*3/uL Normal 0.0-0.2 [facility] Comment on above: Order Comment: No: D o not add to previous drawNURSE DRAW RN JESSE Performed By: #### 5 0103 ####[facility]3000 [facility].[address] ABS NEUTROPHILS 4.1 10*3/uL Normal 1.6-7.6 The [facility] Comment on above: Order Comment: No: D o not add to previous drawNURSE DRAW RN JESSE Performed By: #### 5 3 ####[facility]3000 [facility] [place] [place] [address], [facility] Basophils (Bld) [#/Vol] 0.1 10*3/uL Normal 0.0-0.2 [facility] Comment on above: Order Comment: No: D o not add to previous drawNURSE DRAW RN JESSE Performed By: #### 5 3 ####[facility] [facility] [place] [place] [address], [facility] Basophils/100 WBC (Bld) 0.3 % Normal 0.0-1.0 [facility] Comment on above: Order Comment: No: D o not add to previous drawNURSE DRAW RN JESSE Performed By: #### 102 ####[facility] [facility] [place] [place] [address], [facility] Eosinophils (Bld) [#/Vol] 0.2 10*3/uL Normal 0.0-0.5 [facility] Comment on above: Order Comment: No: D o not add to previous drawNURSE DRAW RN JESSE Performed By: #### 5 102 ####[facility] [facility] [place] [address], [facility] Eosinophils/100 WBC (Bld) 0.7 % Normal 0.0-6.0 [facility] Comment on above: Order Comment: No: D o not add to previous drawNURSE DRAW RN JESSE Performed By: #### 5 3 ####[facility] [facility] [place] [address], [facility] Erythrocyte distribution width (RBC) [Ratio] 14.8 % Normal 11.5-15.0 [facility] Comment on above: Order Comment: No: D o not add to previous drawNURSE DRAW RN JESSE Performed By: #### 5 3 ####[facility] [facility] [place] [place] [address], [facility] Hematocrit (Bld) [Volume fraction] 32.3 % Low 39.0-50.0 [facility] Comment on above: Order Comment: No: D o not add to previous drawNURSE DRAW RN JESSE Performed By: #### 5 3 ####[facility] Hemoglobin (Bld) [Mass/Vol] 10.4 g/dL Low 13.0-17.0 [facility] Comment on above: Order Comment: No: D o not add to previous drawNURSE DRAW RN JESSE Performed By: #### 5 3 ####[facility] IMMATURE GRANS 0.6 % Normal 0.0-1.0 [facility] Comment on above: Order Comment: No: D o not add to previous drawNURSE DRAW RN JESSE Performed By: #### 5 102 ####[facility] Lymphocytes (Bld) [#/Vol] 22.1 10*3/uL High 1.2-4.0 [facility] Comment on above: Order Comment: No: D o not add to previous drawNURSE DRAW RN JESSE Performed By: #### 5 102 ####[place] [id number] [address] Lymphocytes/100 WBC (Bld) 82.1 % High 20.0-45.0 [facility] Comment on above: Order Comment: No: D o not add to previous drawNURSE DRAW RN JESSE Performed By: #### 5 102 ####[facility] MCH (RBC) [Entitic mass] 31.9 pg Normal 27.0-33.0 [facility] Comment on above: Order Comment: No: D o not add to previous drawNURSE DRAW RN JESSE Performed By: #### 5 3 ####[facility] MCHC (RBC) [Mass/Vol] 32.2 g/dL Normal 32.0-35.0 [facility] Comment on above: Order Comment: No: D o not add to previous drawNURSE DRAW RN JESSE Performed By: #### 5 0103 ####[facility] MCV (RBC) [Entitic vol] 99.1 fL High 82.0-98.0 [facility] Comment on above: Order Comment: No: D o not add to previous drawNURSE DRAW RN JESSE Performed By: #### 5 3 ####[address] Monocytes (Bld) [#/Vol] 0.3 10*3/uL Normal 0.1-1.0 [facility] Comment on above: Order Comment: No: D o not add to previous drawNURSE DRAW RN JESSE Performed By: #### 5 3 ####[facility] MONOS 1.1 % Low 5.0-12.0 [facility] Comment on above: Order Comment: No: D o not add to previous drawNURSE DRAW RN JESSE Performed By: #### 5 3 ####[facility] Neutrophils/100 WBC (Bld) 15.2 % Low 40.0-72.0 [facility] Comment on above: Order Comment: No: D o not add to previous drawNURSE DRAW RN JESSE Performed By: #### 5 3 ####[facility] Nucleated RBC/100 WBC (Bld) [Ratio] 0 % Normal 0-0 [facility] Comment on above: Order Comment: No: D o not add to previous drawNURSE DRAW RN JESSE Performed By: #### 5 0103 ####[facility] [place] [address], [facility] PLAT CNT 221 10*3/uL Normal 150-400 The [facility] Comment on above: Order Comment: No: D o not add to previous drawNURSE DRAW RN JESSE Performed By: #### 5 0103 ####[facility] [place] [address], [facility] RBC (Bld) [#/Vol] 3.26 10*6/uL Low 4.20-5.[address] [facility] Comment on above: Order Comment: No: D o not add to previous drawNURSE DRAW RN JESSE Performed By: #### 5 0103 ####[facility]3000 [facility] [place] [place] [address], [facility] SMUDGE CELLS Many Normal The [facility] Comment on above: Order Comment: No: D o not add to previous drawNURSE DRAW RN JESSE Performed By: #### 5 0103 ####[facility]3000 [facility] [place] [address], [facility] WBC (Bld) [#/Vol] 26.95 10*3/uL High 4.00-10.60 [facility] Comment on above: Order Comment: No: D o not add to previous drawNURSE DRAW RN JESSE Performed By: #### 5 0103 ####[facility] [place] [address], [facility] MAGNESIUM BLOODon 11-05-2020 Magnesium [Mass/Vol] 1.8 mg/dL Low 1.9-2.7 [facility] Comment on above: Order Comment: No: D o not add to previous drawNURSE DRAW RN JESSE Performed By: #### 0 0071, 82135 ####[facility] [place] [address], [facility] POC GLUCOSE LABon 11-05-2020 Glucose [Mass/Vol] 123 mg/dL High 70-100 [facility] Comment on above: Performed By: #### 8 5499 ####[facility] [facility] [place] [address], [facility] Glucose [Mass/Vol] 132 mg/dL High 70-100 [facility] Comment on above: Performed By: #### 8 5499 ####[facility] [facility] [place] [address], [facility] Glucose [Mass/Vol] 164 mg/dL High 70-100 [facility] Comment on above: Performed By: #### 8 5499 ####[place] [address] [facility] [place] [address], [facility] Glucose [Mass/Vol] 129 mg/dL High 70-100 [facility] Comment on above: Performed By: #### 8 5499 ####[place] [id number] [address] APTTon 11-04-2020 aPTT Coag (Bld) [Time] 30.1 s Normal 25.0-35.0 [facility] Comment on above: Order Comment: [...] THIS PURPOSE. Performed By: #### 5 6101, 33955 ####[address] BASIC METABOLIC PANELon Calcium [Mass/Vol] 8.2 mg/dL Low 8.6-10.3 [facility] Comment on above: Order Comment: No: D o not add to previous drawNurse draw Performed By: #### 9 9909, 55107, 88749, 08947, 20028 ####[facility] [place] [address], [facility] Chloride [Moles/Vol] 104 mmol/L Normal 98-107 [facility] Comment on above: Order Comment: No: D o not add to previous drawNurse draw Performed By: #### 9 9909, 08113, 69466, 30351, 90909 ####[facility] [facility] [place] [place] [address], [facility] CO2 [Moles/Vol] 27 mmol/L Normal 21-31 The [facility] Comment on above: Order Comment: No: D o not add to previous drawNurse draw Performed By: #### 9 9909, 37296, 53162, 48892, 68796 ####[facility] [facility] [place] [address], [facility] Creatinine [Mass/Vol] 0.86 mg/dL Normal 0.70-1.30 [facility] Comment on above: Order Comment: No: D o not add to previous drawNurse draw Performed By: #### 9 9909, 96655, 71758, 17222, 69929 ####[facility] [facility] [place] [address], [facility] GFR/1.73 sq M.predicted among blacks MDRD (S/P/Bld) [Vol rate/Area] mL/min/{1.73_m2} Normal >60 [facility] Comment on above: Order Comment: No: D o not add to previous drawNurse draw Result Comment: Calc ulation may not be valid for patients over 70 years Performed By: #### 9 9909, 69962, 57905, 23431, 69013 ####[facility] [facility] [place] [place] [address], [facility] GFR/1.73 sq M.predicted among non-blacks MDRD (S/P/Bld) [Vol rate/Area] mL/min/{1.73_m2} Normal >60 [facility] Comment on above: Order Comment: No: D o not add to previous drawNurse draw Result Comment: Calc ulation may not be valid for patients over 70 years Performed By: #### 9 9909, 04838, 18162, 02911, 54252 ####[facility] [place] [address], [facility] Glucose [Mass/Vol] 140 mg/dL High 70-100 [facility] Comment on above: Order Comment: No: D o not add to previous drawNurse draw Performed By: #### 9 9909, 46839, 31696, 89530, 87936 ####[facility] [place] [address], [facility] Potassium [Moles/Vol] 4.1 mmol/L Normal 3.5-5.1 [facility] Comment on above: Order Comment: No: D o not add to previous drawNurse draw Performed By: #### 9 9909, 83265, 61087, 09823, 31798 ####[facility] [place] [address], [facility] Sodium [Moles/Vol] 136 mmol/L Normal 136-145 [facility] Comment on above: Order Comment: No: D o not add to previous drawNurse draw Performed By: #### 9 9909, 01850, 63666, 61436, 01433 ####[facility] [place] [address], [place] Urea nitrogen [Mass/Vol] 12 mg/dL Normal 7-25 [facility] Comment on above: Order Comment: No: D o not add to previous drawNurse draw Performed By: #### 9 9909, 99938, 58040, 03610, 61979 ####[facility] [place] [address], [facility] CBC COMPLETE BLOOD COUNTon 0 3- Erythrocyte distribution width (RBC) [Ratio] 14.7 % Normal 11.5-15.0 [facility] Comment on above: Order Comment: No: D o not add to previous drawNurse draw Performed By: #### 5 0608 ####[facility] Hematocrit (Bld) [Volume fraction] 33.5 % Low 39.0-50.0 [facility] Comment on above: Order Comment: No: D o not add to previous drawNurse draw Performed By: #### 5 0608 ####[facility] Hemoglobin (Bld) [Mass/Vol] 10.9 g/dL Low 13.0-17.0 [facility] Comment on above: Order Comment: No: D o not add to previous drawNurse draw Performed By: #### 5 0608 ####[address] MCH (RBC) [Entitic mass] 31.9 pg Normal 27.0-33.0 [facility] Comment on above: Order Comment: No: D o not add to previous drawNurse draw Performed By: #### 5 0608 ####[address] MCHC (RBC) [Mass/Vol] 32.5 g/dL Normal 32.0-35.0 [facility] Comment on above: Order Comment: No: D o not add to previous drawNurse draw Performed By: #### 5 0608 ####[facility] MCV (RBC) [Entitic vol] 98.0 fL Normal 82.0-98.0 [facility] Comment on above: Order Comment: No: D o not add to previous drawNurse draw Performed By: #### 5 0608 ####[facility] Nucleated RBC/100 WBC (Bld) [Ratio] 0 % Normal 0-0 [facility] Comment on above: Order Comment: No: D o not add to previous drawNurse draw Performed By: #### 5 0608 ####[facility] [facility] [place] [address], [facility] PLAT CNT 219 10*3/uL Normal 150-400 The [facility] Comment on above: Order Comment: No: D o not add to previous drawNurse draw Performed By: #### 5 0608 ####[facility] [place] [address], [facility] RBC (Bld) [#/Vol] 3.42 10*6/uL Low 4.20-5.70 [facility] Comment on above: Order Comment: No: D o not add to previous drawNurse draw Performed By: #### 5 0608 ####[facility]3000 [facility].[address] WBC (Bld) [#/Vol] 28.62 10*3/uL High 4.00-10.60 [facility] Comment on above: Order Comment: No: D o not add to previous drawNurse draw Performed By: #### 5 0608 ####[facility] LIVER BATTERYon 11-04-2020 Albumin [Mass/Vol] 3.2 g/dL Low 3.5-5.7 [facility] Comment on above: Order Comment: Yes: Add to Previous draw if ableNurse draw Performed By: #### 9 9909, 78269, 97913, 55141, 27388 ####[facility] [facility] [place] [address], [facility] ALKALINE PHOSPH 62 IU/L Normal 34-104 [facility] Comment on above: Order Comment: Yes: Add to Previous draw if ableNurse draw Performed By: #### 9 9909, 73992, 60210, 87310, 78723 ####[facility] [place] [address], [facility] ALT [Catalytic activity/Vol] 58 U/L High 7-52 [facility] Comment on above: Order Comment: Yes: Add to Previous draw if ableNurse draw Performed By: #### 9 9909, 37125, 32722, 58470, 29371 ####[facility] [place] [address], [facility] AST [Catalytic activity/Vol] 15 U/L Normal 13-39 [facility] Comment on above: Order Comment: Yes: Add to Previous draw if ableNurse draw Performed By: #### 9 9909, 94211, 26891, 68891, 22544 ####[facility] [place] [address], [facility] Bilirubin [Mass/Vol] 0.5 mg/dL Normal 0.3-1.0 [facility] Comment on above: Order Comment: Yes: Add to Previous draw if ableNurse draw Performed By: #### 9 9909, 95414, 91565, 33203, 71478 ####[facility] [place] [address], [facility] [facility] Bilirubin.direct [Mass/Vol] 0.1 mg/dL Normal 0.0-0.2 [facility] Comment on above: Order Comment: Yes: Add to Previous draw if ableNurse draw Performed By: #### 9 9909, 30313, 46519, 59946, 66759 ####[facility] [place] [address], [facility] Protein [Mass/Vol] 5.3 g/dL Low 6.0-8.3 [facility] Comment on above: Order Comment: Yes: Add to Previous draw if ableNurse draw Performed By: #### 9 9909, 37792, 07543, 22325, 01836 ####[facility] [place] [address], [place] MAGNESIUM BLOODon 11-04-2020 Magnesium [Mass/Vol] 1.9 mg/dL Normal 1.9-2.7 [facility] Comment on above: Order Comment: Yes: Add to Previous draw if ableNurse draw Performed By: #### 9 9909, 78654, 94628, 76373, 02406 ####[facility] [place] [address], [place] PHOSPHORUS BLOODon Phosphate [Mass/Vol] 2.9 mg/dL Normal 2.5-5.0 [facility] Comment on above: Order Comment: Yes: Add to Previous draw if ableNurse draw Performed By: #### 9 9909, 81019, 17316, 09059, 07607 ####[facility] [place] [address], [place] POC GLUCOSE LABon 11-04-2020 Glucose [Mass/Vol] 115 mg/dL High 70-100 [facility] Comment on above: Performed By: #### 8 5499 ####[facility] [place] [address], [place] Glucose [Mass/Vol] 120 mg/dL High 70-100 [facility] Comment on above: Performed By: #### 8 5499 ####[facility] [place] [address], [place] Glucose [Mass/Vol] 134 mg/dL High 70-100 [facility] Comment on above: Performed By: #### 8 5499 ####[facility] [place] [address], [place] Glucose [Mass/Vol] 142 mg/dL High 70-100 [facility] Comment on above: Performed By: #### 8 5499 ####[facility] [place] [address], [place] PROTHROMBIN TIMEon INR Coag (PPP) [Relative time] 1.15 {INR} Normal 0.91-1.16 [facility] Comment on above: Order Comment: [...] OF ACTION, CLINICALEFFECTIVENESS, AND OPTIMAL THERAPEUTIC RANGE. [id number]. Performed By: #### 5 6101, 97501 ####[facility]3000 [facility].[address] PT Coag (PPP) [Time] 14.7 s Normal 12.3-14.8 [facility] Comment on above: Order Comment: Yes: Add to Previous draw if ableNurse draw Result Comment: ALL RESULTS MUST BE INTERPRETED WITH RESPECT TO BLOOD DRAWING ARTIFACTOR DILUTION ERROR OF ANTICOAGULANT AT THE TIME OF SAMPLING. Performed By: #### 5 6101, 24557 ####[facility] [facility] [place] [address], [facility] TRIGLYCERIDES BLOODon 2020 Triglyceride [Mass/Vol] 157 mg/dL High 40-149 [facility] Comment on above: Order Comment: Yes: Add to Previous draw if ableNurse draw Result Comment: TRIG LYCERIDE REFERENCE RANGE:20 YEARS AND OLDER CARDIOVASCULAR RISKLESS THAN 150 mg/dl LOW [id number] TO 199 mg/dl BORDERLINE [id number] mg/dl AND GREATER HIGH RISK Performed By: #### 9 9909, 42952, 00819, 17960, 38058 ####[facility] *BLOOD CULTUREon 11-03-2020 *BLOOD CULTURE Clinical Report: (D) Specimen: BLOOD CULTURE Collected: 11/03/2020 14:01 Status: Final Last Updated: 11/08/2020 14:40 (1) At appt per log book CULT RES (Final) No Growth Day 5 Normal [facility] Comment on above: Order Comment: At ap pt per log book Performed By: #### 3 2833 ####[facility] *BLOOD CULTURE Clinical Report: (D) Specimen: BLOOD CULTURE Collected: 11/03/2020 13:36 Status: Final Last Updated: 11/08/2020 14:40 (1) At appt per log book CULT RES (Final) No Growth Day 5 Normal [facility] Comment on above: Order Comment: At ap pt per log book Performed By: #### 3 1903 ####[place] [id number] [address] *MRSA/MSSA DNA NASALon 11-03 *MRSA/MSSA DNA NASAL Clinical Report: (D ) Specimen: NASAL SWAB Collected: 11/03/2020 12:27 Status: Final Last Updated: 11/04/2020 12:54 MSSA DNA (Final) Negative MRSA DNA (Final) Negative Normal [facility] Comment on above: Performed By: #### 3 1595 ####[address] BASIC METABOLIC PANELon 03-0 Calcium [Mass/Vol] 8.3 mg/dL Low 8.6-10.3 [facility] Comment on above: Order Comment: No: D o not add to previous draw Performed By: #### 1 0, 78659 ####[facility] [place] [address], [facility] Chloride [Moles/Vol] 103 mmol/L Normal 98-107 [facility] Comment on above: Order Comment: No: D o not add to previous draw Performed By: #### 1 0, 12934 ####[facility] [place] [address], [facility] CO2 [Moles/Vol] 25 mmol/L Normal 21-31 The [facility] Comment on above: Order Comment: No: D o not add to previous draw Performed By: #### 1 0, 47458 ####[facility] [facility] [place] [address], [facility] Creatinine [Mass/Vol] 0.93 mg/dL Normal 0.70-1.30 [facility] Comment on above: Order Comment: No: D o not add to previous draw Performed By: #### 1 0, 67797 ####[facility] [facility] [place] [place] [address], [facility] GFR/1.73 sq M.predicted among blacks MDRD (S/P/Bld) [Vol rate/Area] mL/min/{1.73_m2} Normal >60 [facility] Comment on above: Order Comment: No: D o not add to previous draw Result Comment: Calc ulation may not be valid for patients over 70 years Performed By: #### 1 0, 11758 ####[facility] [facility] [place] [address], [facility] GFR/1.73 sq M.predicted among non-blacks MDRD (S/P/Bld) [Vol rate/Area] mL/min/{1.73_m2} Normal >60 [facility] Comment on above: Order Comment: No: D o not add to previous draw Result Comment: Calc ulation may not be valid for patients over 70 years Performed By: #### 1 69, 77307 ####[facility] [place] [address], [facility] Glucose [Mass/Vol] 147 mg/dL High 70-100 [facility] Comment on above: Order Comment: No: D o not add to previous draw Performed By: #### 1 69, 77564 ####[facility] [place] [address], [facility] Potassium [Moles/Vol] 3.8 mmol/L Normal 3.5-5.1 [facility] Comment on above: Order Comment: No: D o not add to previous draw Performed By: #### 1 69, 42770 ####[facility] [place] [address], [facility] Sodium [Moles/Vol] 136 mmol/L Normal 136-145 [facility] Comment on above: Order Comment: No: D o not add to previous draw Performed By: #### 1 69, 34207 ####[facility] [facility].[address] Urea nitrogen [Mass/Vol] 15 mg/dL Normal 7-25 [facility] Comment on above: Order Comment: No: D o not add to previous draw Performed By: #### 1 69, 53854 ####[facility]3000 [facility].[address] CBC COMPLETE BLOOD COUNTon 0 - Erythrocyte distribution width (RBC) [Ratio] 14.9 % Normal 11.5-15.0 [facility] Comment on above: Order Comment: No: D o not add to previous draw Performed By: #### 5 0608 ####[facility] [place] [address], [facility] Hematocrit (Bld) [Volume fraction] 39.3 % Normal 39.0-50.0 [facility] Comment on above: Order Comment: No: D o not add to previous draw Performed By: #### 5 0608 ####[facility] Hemoglobin (Bld) [Mass/Vol] 12.0 g/dL Low 13.0-17.0 [facility] Comment on above: Order Comment: No: D o not add to previous draw Performed By: #### 5 0608 ####[facility] MCH (RBC) [Entitic mass] 32.0 pg Normal 27.0-33.0 [facility] Comment on above: Order Comment: No: D o not add to previous draw Performed By: #### 5 0608 ####[facility] [place] [address] MCHC (RBC) [Mass/Vol] 30.5 g/dL Low 32.0-35.0 [facility] Comment on above: Order Comment: No: D o not add to previous draw Performed By: #### 5 0608 ####[address] MCV (RBC) [Entitic vol] 104.8 fL High 82.0-98.0 [facility] Comment on above: Order Comment: No: D o not add to previous draw Performed By: #### 5 0608 ####[facility] [place] [address] Nucleated RBC/100 WBC (Bld) [Ratio] 0 % Normal 0-0 [facility] Comment on above: Order Comment: No: D o not add to previous draw Performed By: #### 5 0608 ####[facility] [place] [address], [facility] PLAT CNT 208 10*3/uL Normal 150-400 The [facility] Comment on above: Order Comment: No: D o not add to previous draw Performed By: #### 5 0608 ####[facility] [place] [address], [facility] RBC (Bld) [#/Vol] 3.75 10*6/uL Low 4.20-5.[address] [facility] Comment on above: Order Comment: No: D o not add to previous draw Performed By: #### 5 0608 ####[facility] [facility] [place] [place] [address], [facility] WBC (Bld) [#/Vol] 26.14 10*3/uL High 4.00-10.60 [facility] Comment on above: Order Comment: No: D o not add to previous draw Performed By: #### 5 0608 ####[facility]3000 [facility].[address] ABDOMEN AND PELVIS WO CON TRASTon 11-03-2020 CT ABDOMEN AND PELVIS WO CONTRAST Normal [facility] Comment on above: Order Comment: Obstr uction, 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 MAGNESIUM BLOODon 11-03-2020 Magnesium [Mass/Vol] 2.0 mg/dL Normal 1.9-2.7 [facility] Comment on above: Order Comment: No: D o not add to previous draw Performed By: #### 1 0070, 82415 ####[facility] [facility] [place] [address], [facility] PHOSPHORUS BLOODon Phosphate [Mass/Vol] 2.8 mg/dL Normal 2.5-5.0 [facility] Comment on above: Order Comment: Yes: Add to Previous draw if able Performed By: #### 4 1000 ####[facility] [facility] [place] [place] [address], [facility] POC GLUCOSE LABon 11-03-2020 Glucose [Mass/Vol] 120 mg/dL High 70-100 [facility] Comment on above: Performed By: #### 8 5499 ####[facility] [facility] [place] [address], [facility] Glucose [Mass/Vol] 141 mg/dL High 70-100 [facility] Comment on above: Performed By: #### 8 5499 ####[facility] [facility] [place] [address], [place] Glucose [Mass/Vol] 77 mg/dL Normal 70-100 [facility] Comment on above: Performed By: #### 8 5499 ####[facility] [facility] [place] [address], [facility] Glucose [Mass/Vol] 181 mg/dL High 70-100 [facility] Comment on above: Performed By: #### 8 5499 ####[facility] [facility] [place] [address], [facility] BASIC METABOLIC PANELon 03-0 -2020 Calcium [Mass/Vol] 7.8 mg/dL Low 8.6-10.3 [facility] Comment on above: Order Comment: No: D o not add to previous draw Performed By: #### 0 0071, 49225 ####[facility] [facility] [place] [address], [facility] Chloride [Moles/Vol] 109 mmol/L High 98-107 [facility] Comment on above: Order Comment: No: D o not add to previous draw Performed By: #### 0 0071, 23239 ####[facility] [facility] [place] [address], [place] CO2 [Moles/Vol] 18 mmol/L Low 21-31 The [facility] Comment on above: Order Comment: No: D o not add to previous draw Performed By: #### 0 0071, 50432 ####[facility] [facility] [place] [place] [address], [facility] Creatinine [Mass/Vol] 0.92 mg/dL Normal 0.70-1.30 [facility] Comment on above: Order Comment: No: D o not add to previous draw Performed By: #### 0 0071, 80447 ####[facility] [facility] [place] [place] [address], [facility] GFR/1.73 sq M.predicted among blacks MDRD (S/P/Bld) [Vol rate/Area] mL/min/{1.73_m2} Normal >60 [facility] Comment on above: Order Comment: No: D o not add to previous draw Result Comment: Calc ulation may not be valid for patients over 70 years Performed By: #### 0 0071, 59165 ####[facility] [facility] [place] [place] [address], [facility] GFR/1.73 sq M.predicted among non-blacks MDRD (S/P/Bld) [Vol rate/Area] mL/min/{1.73_m2} Normal >60 [facility] Comment on above: Order Comment: No: D o not add to previous draw Result Comment: Calc ulation may not be valid for patients over 70 years Performed By: #### 0 0071, 27938 ####[facility] [facility] [place] [place] [address], [facility] Glucose [Mass/Vol] 179 mg/dL High 70-100 [facility] Comment on above: Order Comment: No: D o not add to previous draw Performed By: #### 0 0071, 83062 ####[facility] [facility] [place] [address], [facility] Potassium [Moles/Vol] 4.1 mmol/L Normal 3.5-5.1 [facility] Comment on above: Order Comment: No: D o not add to previous draw Performed By: #### 0 0071, 65285 ####[facility] Sodium [Moles/Vol] 137 mmol/L Normal 136-145 [facility] Comment on above: Order Comment: No: D o not add to previous draw Performed By: #### 0 0071, 84363 ####[place] [address] [address] Urea nitrogen [Mass/Vol] 18 mg/dL Normal 7-25 [facility] Comment on above: Order Comment: No: D o not add to previous draw Performed By: #### 0 0071, 84962 ####[address] CBC COMPLETE BLOOD COUNTon 0 11-02-2020 Erythrocyte distribution width (RBC) [Ratio] 14.9 % Normal 11.5-15.0 [facility] Comment on above: Order Comment: No: D o not add to previous draw Performed By: #### 5 0608 ####[place] [id number] [address] Hematocrit (Bld) [Volume fraction] 36.4 % Low 39.0-50.0 [facility] Comment on above: Order Comment: No: D o not add to previous draw Performed By: #### 5 0608 ####[address] Hemoglobin (Bld) [Mass/Vol] 11.0 g/dL Low 13.0-17.0 [facility] Comment on above: Order Comment: No: D o not add to previous draw Performed By: #### 5 0608 ####[place] [address], [facility] MCH (RBC) [Entitic mass] 32.4 pg Normal 27.0-33.0 [facility] Comment on above: Order Comment: No: D o not add to previous draw Performed By: #### 5 0608 ####[facility] MCHC (RBC) [Mass/Vol] 30.2 g/dL Low 32.0-35.0 [facility] Comment on above: Order Comment: No: D o not add to previous draw Performed By: #### 5 0608 ####[facility] [facility] [place] [address], [facility] MCV (RBC) [Entitic vol] 107.1 fL High 82.0-98.0 [facility] Comment on above: Order Comment: No: D o not add to previous draw Performed By: #### 5 0608 ####[facility] [facility].[address] Nucleated RBC/100 WBC (Bld) [Ratio] 0 % Normal 0-0 [facility] Comment on above: Order Comment: No: D o not add to previous draw Performed By: #### 5 0608 ####[facility] [place] [address], [facility] PLAT CNT 169 10*3/uL Normal 150-400 [facility] Comment on above: Order Comment: No: D o not add to previous draw Performed By: #### 5 0608 ####[facility] [facility] [place] [address], [facility] RBC (Bld) [#/Vol] 3.40 10*6/uL Low 4.20-5.[address] [facility] Comment on above: Order Comment: No: D o not add to previous draw Performed By: #### 5 0608 ####[facility] [facility] [place] [address], [facility] WBC (Bld) [#/Vol] 24.00 10*3/uL High 4.00-10.60 [facility] Comment on above: Order Comment: No: D o not add to previous draw Performed By: #### 5 0608 ####[facility] [place] [address], [place] MAGNESIUM BLOODon 11-02-2020 Magnesium [Mass/Vol] 2.0 mg/dL Normal 1.9-2.7 [facility] Comment on above: Order Comment: No: D o not add to previous draw Performed By: #### 0 0071, 69176 ####[facility] [place] [address], [place] POC GLUCOSE LABon 11-02-2020 Glucose [Mass/Vol] 156 mg/dL High 70-100 [facility] Comment on above: Performed By: #### 8 5499 ####[facility] [place] [address], [place] Glucose [Mass/Vol] 150 mg/dL High 70-100 [facility] Comment on above: Performed By: #### 8 5499 ####[facility] [place] [address], [place] Glucose [Mass/Vol] 151 mg/dL High 70-100 [facility] Comment on above: Performed By: #### 8 5499 ####[facility] [place] [address], [place] Glucose [Mass/Vol] 169 mg/dL High 70-100 [facility] Comment on above: Performed By: #### 8 5499 ####[facility] [place] [address], [place] Glucose [Mass/Vol] 160 mg/dL High 70-100 [facility] Comment on above: Performed By: #### 8 5499 ####[facility] [place] [address], [place] PORTABLE ABDOMENon PORTABLE ABDOMEN Normal [facility] Comment on above: Order Comment: Evalu ate for Ileus BASIC METABOLIC PANELon 03-0 Calcium [Mass/Vol] 7.8 mg/dL Low 8.6-10.3 [facility] Comment on above: Order Comment: No: D o not add to previous draw Performed By: #### 1 69, 17593 ####[facility] [place] [address], [place] Chloride [Moles/Vol] 106 mmol/L Normal 98-107 [facility] Comment on above: Order Comment: No: D o not add to previous draw Performed By: #### 1 69, 01122 ####[facility] [place] [address], [place] CO2 [Moles/Vol] 28 mmol/L Normal 21-31 [facility] Comment on above: Order Comment: No: D o not add to previous draw Performed By: #### 1 69, 78496 ####[facility] [place] [address], [place] Creatinine [Mass/Vol] 0.91 mg/dL Normal 0.70-1.30 [facility] Comment on above: Order Comment: No: D o not add to previous draw Performed By: #### 1 69, 87350 ####[facility] [place] [address], [place] GFR/1.73 sq M.predicted among blacks MDRD (S/P/Bld) [Vol rate/Area] mL/min/{1.73_m2} Normal >60 [facility] Comment on above: Order Comment: No: D o not add to previous draw Result Comment: Calc ulation may not be valid for patients over 70 years Performed By: #### 1 69, 96592 ####[facility] [place] [address], [place] GFR/1.73 sq M.predicted among non-blacks MDRD (S/P/Bld) [Vol rate/Area] mL/min/{1.73_m2} Normal >60 [facility] Comment on above: Order Comment: No: D o not add to previous draw Result Comment: Calc ulation may not be valid for patients over 70 years Performed By: #### 1 69, 98102 ####[facility] [place] [address], [place] Glucose [Mass/Vol] 326 mg/dL High 70-100 [facility] Comment on above: Order Comment: No: D o not add to previous draw Performed By: #### 1 69, 23095 ####[facility] [place] [address], [place] Potassium [Moles/Vol] 4.7 mmol/L Normal 3.5-5.1 [facility] Comment on above: Order Comment: No: D o not add to previous draw Performed By: #### 1 69, 64076 ####[facility] [place] [address], [place] Sodium [Moles/Vol] 137 mmol/L Normal 136-145 [facility] Comment on above: Order Comment: No: D o not add to previous draw Performed By: #### 1 69, 20159 ####[facility] [facility] [place] [address], [facility] Urea nitrogen [Mass/Vol] 19 mg/dL Normal 7-25 [facility] Comment on above: Order Comment: No: D o not add to previous draw Performed By: #### 1 69, 34565 ####[facility] [facility] [place] [place] [address], [facility] CBC COMPLETE BLOOD COUNTon 0 - Erythrocyte distribution width (RBC) [Ratio] 14.6 % Normal 11.5-15.0 [facility] Comment on above: Order Comment: No: D o not add to previous draw Performed By: #### 5 0608 ####[facility] Hematocrit (Bld) [Volume fraction] 34.1 % Low 39.0-50.0 [facility] Comment on above: Order Comment: No: D o not add to previous draw Performed By: #### 5 0608 ####[facility] Hemoglobin (Bld) [Mass/Vol] 10.8 g/dL Low 13.0-17.0 [facility] Comment on above: Order Comment: No: D o not add to previous draw Performed By: #### 5 0608 ####[place] [id number] [address] MCH (RBC) [Entitic mass] 32.1 pg Normal 27.0-33.0 [facility] Comment on above: Order Comment: No: D o not add to previous draw Performed By: #### 5 0608 ####[facility] MCHC (RBC) [Mass/Vol] 31.7 g/dL Low 32.0-35.0 [facility] Comment on above: Order Comment: No: D o not add to previous draw Performed By: #### 5 0608 ####[facility] MCV (RBC) [Entitic vol] 101.5 fL High 82.0-98.0 [facility] Comment on above: Order Comment: No: D o not add to previous draw Performed By: #### 5 0608 ####[place] [id number] [address] Nucleated RBC/100 WBC (Bld) [Ratio] 0 % Normal 0-0 [facility] Comment on above: Order Comment: No: D o not add to previous draw Performed By: #### 5 0608 ####[facility] [place] [address], [facility] PLAT CNT 189 10*3/uL Normal 150-400 [facility] Comment on above: Order Comment: No: D o not add to previous draw Performed By: #### 5 0608 ####[facility] [facility] [id number], [facility] RBC (Bld) [#/Vol] 3.36 10*6/uL Low 4.20-5.[address] [facility] Comment on above: Order Comment: No: D o not add to previous draw Performed By: #### 5 0608 ####[facility] [facility] [place] [address], [facility] WBC (Bld) [#/Vol] 24.92 10*3/uL High 4.00-10.60 [facility] Comment on above: Order Comment: No: D o not add to previous draw Performed By: #### 5 0608 ####[facility] [facility] [place] [address], [facility] MAGNESIUM BLOODon 11-01-2020 Magnesium [Mass/Vol] 1.9 mg/dL Normal 1.9-2.7 [facility] Comment on above: Order Comment: No: D o not add to previous draw Performed By: #### 1 0070, [id number] ####[facility] [facility] [place] [address], [facility] POC GLUCOSE LABon 11-01-2020 Glucose [Mass/Vol] 133 mg/dL High 70-100 [facility] Comment on above: Performed By: #### 8 [id number] ####[facility] [facility] [place] [address], [facility] Glucose [Mass/Vol] 157 mg/dL High 70-100 [facility] Comment on above: Performed By: #### 8 5499 ####[facility] [place] [address], [place] Glucose [Mass/Vol] 140 mg/dL High 70-100 [facility] Comment on above: Performed By: #### 8 5499 ####[facility] [place] [address], [place] Glucose [Mass/Vol] 164 mg/dL High 70-100 [facility] Comment on above: Performed By: #### 8 5499 ####[facility] [place] [address], [place] BASIC METABOLIC PANELon 03-0 Calcium [Mass/Vol] 7.9 mg/dL Low 8.6-10.3 [facility] Comment on above: Order Comment: No: D o not add to previous draw Performed By: #### 0 0071, [id number] ####[facility] [place] [address], [place] Chloride [Moles/Vol] 106 mmol/L Normal 98-107 [facility] Comment on above: Order Comment: No: D o not add to previous draw Performed By: #### 0 0071, 66933 ####[facility] [place] [address], [place] CO2 [Moles/Vol] 28 mmol/L Normal 21-31 The [facility] Comment on above: Order Comment: No: D o not add to previous draw Performed By: #### 0 0071, 89928 ####[facility] [place] [address], [place] Creatinine [Mass/Vol] 0.87 mg/dL Normal 0.70-1.30 [facility] Comment on above: Order Comment: No: D o not add to previous draw Performed By: #### 0 0071, 96809 ####[facility] [place] [address], [place] GFR/1.73 sq M.predicted among blacks MDRD (S/P/Bld) [Vol rate/Area] mL/min/{1.73_m2} Normal >60 [facility] Comment on above: Order Comment: No: D o not add to previous draw Result Comment: Calc ulation may not be valid for patients over 70 years Performed By: #### 0 0071, 38674 ####[facility] [place] [address], [place] GFR/1.73 sq M.predicted among non-blacks MDRD (S/P/Bld) [Vol rate/Area] mL/min/{1.73_m2} Normal >60 [facility] Comment on above: Order Comment: No: D o not add to previous draw Result Comment: Calc ulation may not be valid for patients over 70 years Performed By: #### 0 0071, [id number] ####[facility] [facility] [place] [address], [facility] Glucose [Mass/Vol] 209 mg/dL High 70-100 [facility] Comment on above: Order Comment: No: D o not add to previous draw Performed By: #### 0 0071, 15984 ####[facility] [facility] [place] [address], [facility] Potassium [Moles/Vol] 3.5 mmol/L Normal 3.5-5.1 [facility] Comment on above: Order Comment: No: D o not add to previous draw Performed By: #### 0 0071, 98079 ####[facility] [place] [address], [place] Sodium [Moles/Vol] 143 mmol/L Normal 136-145 [facility] Comment on above: Order Comment: No: D o not add to previous draw Performed By: #### 0 0071, 90152 ####[facility] [place] [address], [place] Urea nitrogen [Mass/Vol] 20 mg/dL Normal 7-25 [facility] Comment on above: Order Comment: No: D o not add to previous draw Performed By: #### 0 0071, 48129 ####[facility] [facility].[address] CBC COMPLETE BLOOD COUNTon 0 10-31-2020 Erythrocyte distribution width (RBC) [Ratio] 14.5 % Normal 11.5-15.0 [facility] Comment on above: Order Comment: No: D o not add to previous draw Performed By: #### 5 0608 ####[facility] [facility].[address] Hematocrit (Bld) [Volume fraction] 33.3 % Low 39.0-50.0 [facility] Comment on above: Order Comment: No: D o not add to previous draw Performed By: #### 5 0608 ####[facility] [facility].[address] Hemoglobin (Bld) [Mass/Vol] 10.7 g/dL Low 13.0-17.0 [facility] Comment on above: Order Comment: No: D o not add to previous draw Performed By: #### 5 0608 ####[facility] [facility].[address] MCH (RBC) [Entitic mass] 31.6 pg Normal 27.0-33.0 [facility] Comment on above: Order Comment: No: D o not add to previous draw Performed By: #### 5 0608 ####[facility] [facility] [place] [address], [facility] MCHC (RBC) [Mass/Vol] 32.1 g/dL Normal 32.0-35.0 [facility] Comment on above: Order Comment: No: D o not add to previous draw Performed By: #### 5 0608 ####[facility] [facility].[address] MCV (RBC) [Entitic vol] 98.2 fL High 82.0-98.0 [facility] Comment on above: Order Comment: No: D o not add to previous draw Performed By: #### 5 0608 ####[facility] [place] [address], [facility] Nucleated RBC/100 WBC (Bld) [Ratio] 0 % Normal 0-0 [facility] Comment on above: Order Comment: No: D o not add to previous draw Performed By: #### 5 0608 ####[facility] [place] [address], [facility] PLAT CNT 168 10*3/uL Normal 150-400 [facility] Comment on above: Order Comment: No: D o not add to previous draw Performed By: #### 5 0608 ####[facility] [place] [address], [facility] RBC (Bld) [#/Vol] 3.39 10*6/uL Low 4.20-5.[address] [facility] Comment on above: Order Comment: No: D o not add to previous draw Performed By: #### 5 0608 ####[facility] [place] [address], [facility] WBC (Bld) [#/Vol] 20.00 10*3/uL High 4.00-10.60 [facility] Comment on above: Order Comment: No: D o not add to previous draw Performed By: #### 5 0608 ####[facility] [place] [address], [facility] MAGNESIUM BLOODon 10-31-2020 Magnesium [Mass/Vol] 2.1 mg/dL Normal 1.9-2.7 [facility] Comment on above: Order Comment: No: D o not add to previous draw Performed By: #### 0 0071, 11709 ####[facility] [place] [address], [place] POC GLUCOSE LABon 10-31-2020 Glucose [Mass/Vol] 168 mg/dL High 70-100 [facility] Comment on above: Performed By: #### 8 5499 ####[facility] [place] [address], [place] Glucose [Mass/Vol] 179 mg/dL High 70-100 [facility] Comment on above: Performed By: #### 8 5499 ####[facility] [facility] [place] [address], [place] Glucose [Mass/Vol] 173 mg/dL High 70-100 [facility] Comment on above: Performed By: #### 8 5499 ####[facility] [facility] [place] [address], [place] Glucose [Mass/Vol] 205 mg/dL High 70-100 [facility] Comment on above: Performed By: #### 8 5499 ####[facility] [facility] [place] [address], [place] Glucose [Mass/Vol] 236 mg/dL High 70-100 [facility] Comment on above: Performed By: #### 8 5499 ####[facility] [facility] [place] [address], [place] BASIC METABOLIC PANELon 10-04 Calcium [Mass/Vol] 7.7 mg/dL Low 8.6-10.3 [facility] Comment on above: Order Comment: No: D o not add to previous draw Performed By: #### 0 0071, 23844 ####[facility] [place] [address], [place] Chloride [Moles/Vol] 108 mmol/L High 98-107 [facility] Comment on above: Order Comment: No: D o not add to previous draw Performed By: #### 0 0071, 35805 ####[facility] [place] [address], [facility] CO2 [Moles/Vol] 26 mmol/L Normal 21-31 [facility] Comment on above: Order Comment: No: D o not add to previous draw Performed By: #### 0 0071, 36373 ####[facility] [place] [address], [facility] Creatinine [Mass/Vol] 0.85 mg/dL Normal 0.70-1.30 [facility] Comment on above: Order Comment: No: D o not add to previous draw Performed By: #### 0 0071, 49328 ####[facility] [facility] [place] [address], [facility] GFR/1.73 sq M.predicted among blacks MDRD (S/P/Bld) [Vol rate/Area] mL/min/{1.73_m2} Normal >60 [facility] Comment on above: Order Comment: No: D o not add to previous draw Result Comment: Calc ulation may not be valid for patients over 70 years Performed By: #### 0 0071, 39064 ####[facility] [facility] [place] [address], [facility] GFR/1.73 sq M.predicted among non-blacks MDRD (S/P/Bld) [Vol rate/Area] mL/min/{1.73_m2} Normal >60 [facility] Comment on above: Order Comment: No: D o not add to previous draw Result Comment: Calc ulation may not be valid for patients over 70 years Performed By: #### 0 0071, 16838 ####[facility] [place] [address], [facility] Glucose [Mass/Vol] 205 mg/dL High 70-100 [facility] Comment on above: Order Comment: No: D o not add to previous draw Performed By: #### 0 0071, 85486 ####[facility] [place] [address], [facility] Potassium [Moles/Vol] 3.7 mmol/L Normal 3.5-5.1 [facility] Comment on above: Order Comment: No: D o not add to previous draw Performed By: #### 0 0071, 61069 ####[facility] [place] [address], [facility] Sodium [Moles/Vol] 140 mmol/L Normal 136-145 [facility] Comment on above: Order Comment: No: D o not add to previous draw Performed By: #### 0 0071, 80143 ####[facility] [place] [address], [facility] Urea nitrogen [Mass/Vol] 21 mg/dL Normal 7-25 [facility] Comment on above: Order Comment: No: D o not add to previous draw Performed By: #### 0 0071, 99347 ####[facility] [facility] [id number], [facility] CBC COMPLETE BLOOD COUNTon 0 10-30-2020 Erythrocyte distribution width (RBC) [Ratio] 15.0 % Normal 11.5-15.0 [facility] Comment on above: Order Comment: No: D o not add to previous draw Performed By: #### 5 0608 ####[facility] [facility] [place] [place] [address], [facility] Hematocrit (Bld) [Volume fraction] 33.5 % Low 39.0-50.0 [facility] Comment on above: Order Comment: No: D o not add to previous draw Performed By: #### 5 0608 ####[facility] [id number], [facility] Hemoglobin (Bld) [Mass/Vol] 10.7 g/dL Low 13.0-17.0 [facility] Comment on above: Order Comment: No: D o not add to previous draw Performed By: #### 5 0608 ####[facility] MCH (RBC) [Entitic mass] 31.7 pg Normal 27.0-33.0 [facility] Comment on above: Order Comment: No: D o not add to previous draw Performed By: #### 5 0608 ####[facility] MCHC (RBC) [Mass/Vol] 31.9 g/dL Low 32.0-35.0 [facility] Comment on above: Order Comment: No: D o not add to previous draw Performed By: #### 5 0608 ####[place] [id number] [address] MCV (RBC) [Entitic vol] 99.1 fL High 82.0-98.0 [facility] Comment on above: Order Comment: No: D o not add to previous draw Performed By: #### 5 0608 ####[place] [id number] [address] Nucleated RBC/100 WBC (Bld) [Ratio] 0 % Normal 0-0 [facility] Comment on above: Order Comment: No: D o not add to previous draw Performed By: #### 5 0608 ####[facility] [place] [address] PLAT CNT 156 10*3/uL Normal 150-400 [facility] Comment on above: Order Comment: No: D o not add to previous draw Performed By: #### 5 0608 ####[address] RBC (Bld) [#/Vol] 3.38 10*6/uL Low 4.20-5.[address] [facility] Comment on above: Order Comment: No: D o not add to previous draw Performed By: #### 5 0608 ####[facility] [place] [address], [facility] WBC (Bld) [#/Vol] 19.93 10*3/uL High 4.00-10.60 [facility] Comment on above: Order Comment: No: D o not add to previous draw Performed By: #### 5 0608 ####[facility] [place] [address], [place] MAGNESIUM BLOODon 10-30-2020 Magnesium [Mass/Vol] 2.1 mg/dL Normal 1.9-2.7 [facility] Comment on above: Order Comment: No: D o not add to previous draw Performed By: #### 0 0071, 74913 ####[facility] [place] [address], [facility] POC GLUCOSE LABon 10-30-2020 Glucose [Mass/Vol] 178 mg/dL High 70-100 [facility] Comment on above: Performed By: #### 8 5499 ####[facility] [place] [address], [facility] Glucose [Mass/Vol] 173 mg/dL High 70-100 [facility] Comment on above: Performed By: #### 8 5499 ####[facility] [place] [address], [place] Glucose [Mass/Vol] 192 mg/dL High 70-100 [facility] Comment on above: Performed By: #### 8 5499 ####[facility] [place] [address], [place] Glucose [Mass/Vol] 176 mg/dL High 70-100 [facility] Comment on above: Performed By: #### 8 5499 ####[facility] [place] [address], [facility] Glucose [Mass/Vol] 211 mg/dL High 70-100 [facility] Comment on above: Performed By: #### 8 5499 ####[facility] [facility] [place] [address], [facility] BASIC METABOLIC PANELon 02-2 Calcium [Mass/Vol] 7.6 mg/dL Low 8.6-10.3 [facility] Comment on above: Order Comment: No: D o not add to previous draw Performed By: #### 0 0071, 25332 ####[facility] [place] [address], [facility] Chloride [Moles/Vol] 111 mmol/L High 98-107 [facility] Comment on above: Order Comment: No: D o not add to previous draw Performed By: #### 0 0071, 85988 ####[facility] [facility] [place] [address], [facility] CO2 [Moles/Vol] 21 mmol/L Normal 21-31 The [facility] Comment on above: Order Comment: No: D o not add to previous draw Performed By: #### 0 0071, 90983 ####[facility] [place] [address], [facility] Creatinine [Mass/Vol] 0.90 mg/dL Normal 0.70-1.30 [facility] Comment on above: Order Comment: No: D o not add to previous draw Performed By: #### 0 0071, 37086 ####[facility] [facility] [place] [address], [facility] GFR/1.73 sq M.predicted among blacks MDRD (S/P/Bld) [Vol rate/Area] mL/min/{1.73_m2} Normal >60 [facility] Comment on above: Order Comment: No: D o not add to previous draw Result Comment: Calc ulation may not be valid for patients over 70 years Performed By: #### 0 0071, 87969 ####[facility] [place] [address], [place] GFR/1.73 sq M.predicted among non-blacks MDRD (S/P/Bld) [Vol rate/Area] mL/min/{1.73_m2} Normal >60 [facility] Comment on above: Order Comment: No: D o not add to previous draw Result Comment: Calc ulation may not be valid for patients over 70 years Performed By: #### 0 0071, 46190 ####[facility] [place] [address], [place] Glucose [Mass/Vol] 164 mg/dL High 70-100 [facility] Comment on above: Order Comment: No: D o not add to previous draw Performed By: #### 0 0071, 25565 ####[facility] [place] [address], [place] Potassium [Moles/Vol] 3.7 mmol/L Normal 3.5-5.1 [facility] Comment on above: Order Comment: No: D o not add to previous draw Performed By: #### 0 0071, 22130 ####[facility] [place] [address], [place] Sodium [Moles/Vol] 140 mmol/L Normal 136-145 [facility] Comment on above: Order Comment: No: D o not add to previous draw Performed By: #### 0 0071, 12381 ####[facility] [place] [address], [place] Urea nitrogen [Mass/Vol] 21 mg/dL Normal 7-25 [facility] Comment on above: Order Comment: No: D o not add to previous draw Performed By: #### 0 0071, 79077 ####[facility] [place] [address], [place] Calcium [Mass/Vol] 7.2 mg/dL Low 8.6-10.3 [facility] Comment on above: Order Comment: No: D o not add to previous draw Performed By: #### 0 0071, 48072 ####[facility] [place] [address], [facility] Chloride [Moles/Vol] 111 mmol/L High 98-107 [facility] Comment on above: Order Comment: No: D o not add to previous draw Performed By: #### 0 0071, 33440 ####[facility] [place] [address], [facility] CO2 [Moles/Vol] 21 mmol/L Normal 21-31 The [facility] Comment on above: Order Comment: No: D o not add to previous draw Performed By: #### 0 0071, 25561 ####[facility] [facility] [place] [place] [address], [facility] Creatinine [Mass/Vol] 0.99 mg/dL Normal 0.70-1.30 [facility] Comment on above: Order Comment: No: D o not add to previous draw Performed By: #### 0 0071, 90175 ####[facility] [facility] [place] [place] [address], [facility] GFR/1.73 sq M.predicted among blacks MDRD (S/P/Bld) [Vol rate/Area] mL/min/{1.73_m2} Normal >60 [facility] Comment on above: Order Comment: No: D o not add to previous draw Result Comment: Calc ulation may not be valid for patients over 70 years Performed By: #### 0 0071, 60109 ####[facility] [facility] [place] [place] [address], [facility] GFR/1.73 sq M.predicted among non-blacks MDRD (S/P/Bld) [Vol rate/Area] mL/min/{1.73_m2} Normal >60 [facility] Comment on above: Order Comment: No: D o not add to previous draw Result Comment: Calc ulation may not be valid for patients over 70 years Performed By: #### 0 0071, 46569 ####[facility] [place] [address], [place] Glucose [Mass/Vol] 133 mg/dL High 70-100 [facility] Comment on above: Order Comment: No: D o not add to previous draw Performed By: #### 0 0071, 55620 ####[facility] [place] [address], [place] Potassium [Moles/Vol] 3.8 mmol/L Normal 3.5-5.1 [facility] Comment on above: Order Comment: No: D o not add to previous draw Performed By: #### 0 0071, 36695 ####[facility] [place] [address], [facility] Sodium [Moles/Vol] 140 mmol/L Normal 136-145 [facility] Comment on above: Order Comment: No: D o not add to previous draw Performed By: #### 0 0071, 35284 ####[facility] [facility] [place] [address], [facility] Urea nitrogen [Mass/Vol] 20 mg/dL Normal 7-25 [facility] Comment on above: Order Comment: No: D o not add to previous draw Performed By: #### 0 0071, 19003 ####[facility] [place] [address], [place] CBC W/DIFFon 10-29-2020 ABS BASOPHILS CANCELED Normal 0.0-0.2 The [facility] Comment on above: Result Comment: The released value 0.0 was canceled by KNG on 10/29/2020 22:20 Performed By: #### 5 0103 ####[facility] ABS EOSINOPHILS CANCELED Normal 0.0-0.5 The [facility] Comment on above: Result Comment: The released value 0.0 was canceled by KNG on 10/29/2020 22:20 Performed By: #### 5 0103 ####[facility] [facility].[address] ABS IMM GRANS CANCELED Normal The [facility] Comment on above: Performed By: #### 5 0103 ####[facility] [facility].[address] ABS IMM GRANS 0.1 10*3/uL Normal 0.0-0.2 The [facility] Comment on above: Order Comment: This order is a replacement of the rejected order with accession [id number]. Performed By: #### 5 0103 ####[facility] [facility].[address] ABS LYMPHS CANCELED Normal 1.2-4.0 [facility] Comment on above: Result Comment: The released value 8.3 was canceled by KNG on 10/29/2020 22:20 Performed By: #### 5 0103 ####[facility] [facility].[address] ABS MONOCYTES CANCELED Normal 0.1-1.0 [facility] Comment on above: Result Comment: The released value 0.2 was canceled by KNG on 10/29/2020 22:20 Performed By: #### 5 0103 ####[facility] [facility].[address] ABS NEUTROPHILS CANCELED Normal 1.6-7.6 The [facility] Comment on above: Result Comment: The released value 12.9 was canceled by KNG on 10/29/2020 22:20 Performed By: #### 5 0103 ####[facility] [place] [address], [facility] ABS NEUTROPHILS 4.8 10*3/uL Normal 1.6-7.6 The [facility] Comment on above: Order Comment: This order is a replacement of the rejected order with accession [id number]. Performed By: #### 0103 ####[facility] [place] [address], [facility] ABSOLUTE BANDS CANCELED Normal The [facility] Comment on above: Performed By: #### 0103 ####[facility] ACANTHOCYTES CANCELED Normal The [facility] Comment on above: Performed By: #### 3 ####[facility] ANISO CANCELED Normal [facility] Comment on above: Performed By: #### 3 ####[facility] ATYPICAL CELLS CANCELED Normal The [facility] Comment on above: Performed By: #### 3 ####[facility] BANDS CANCELED Normal [facility] Comment on above: Performed By: #### 3 ####[facility] [place] [address], [facility] BASO CANCELED Normal 0.0-1.0 [facility] Comment on above: Result Comment: The released value 0.0 was canceled by MELIDA on 10/29/2020 22:20 Performed By: #### 3 ####[facility] [place] [address], [facility] BASOPHIL STIPPL CANCELED Normal The [facility] Comment on above: Performed By: #### 5 0103 ####[facility] [place] [address], [facility] Basophils (Bld) [#/Vol] 0.0 10*3/uL Normal 0.0-0.2 [facility] Comment on above: Order Comment: This order is a replacement of the rejected order with accession [id number]. Performed By: #### 5 0103 ####[facility] [place] [address], [facility] Basophils/100 WBC (Bld) 0.2 % Normal 0.0-1.0 [facility] Comment on above: Order Comment: This order is a replacement of the rejected order with accession [id number]. Performed By: #### 0103 ####[facility] [place] [address], [facility] BLASTS CANCELED Normal [facility] Comment on above: Performed By: #### 3 ####[facility] [place] [address], [facility] PARAMJIT CELLS CANCELED Normal [facility] Comment on above: Performed By: #### 5 3 ####[facility] [place] [address], [facility] DOHLE BODIES CANCELED Normal The [facility] Comment on above: Performed By: #### 5 0103 ####[facility] [place] [address], [facility] ELLIPTOCYTES CANCELED Normal The [facility] Comment on above: Performed By: #### 5 0103 ####[facility] [place] [address], [place] EOS CANCELED Normal 0.0-6.0 [facility] Comment on above: Result Comment: The released value 0.0 was canceled by KNG on 10/29/2020 22:20 Performed By: #### 5 0103 ####[address] Eosinophils (Bld) [#/Vol] 0.0 10*3/uL Normal 0.0-0.5 [facility] Comment on above: Order Comment: This order is a replacement of the rejected order with accession [id number]. Performed By: #### 5 0103 ####[address] Eosinophils/100 WBC (Bld) 0.2 % Normal 0.0-6.0 [facility] Comment on above: Order Comment: This order is a replacement of the rejected order with accession [id number]. Performed By: #### 5 0103 ####[address] Erythrocyte distribution width (RBC) [Ratio] 15.0 % Normal 11.5-15.0 [facility] Comment on above: Order Comment: This order is a replacement of the rejected order with accession [id number]. Performed By: #### 5 0103 ####[address] GIANT PLATELETS CANCELED Normal The [facility] Comment on above: Result Comment: The released value Present was canceled by KNG on 10/29/2020 22:20 Performed By: #### 5 0103 ####[address] GIANT PLATELETS Present Normal The [facility] Comment on above: Order Comment: This order is a replacement of the rejected order with accession [id number]. Performed By: #### 5 3 ####[address] [place] [address], [facility] HCT CANCELED Normal 39.0-50.0 [facility] Comment on above: Result Comment: The released value 35.5 was canceled by KNG on 10/29/2020 22:20 Performed By: #### 5 0103 ####[facility] [place] [address], [facility] HELMET CELLS CANCELED Normal The [facility] Comment on above: Performed By: #### 5 0103 ####[facility] [place] [address], [facility] Hematocrit (Bld) [Volume fraction] 35.5 % Low 39.0-50.0 [facility] Comment on above: Order Comment: This order is a replacement of the rejected order with accession [id number]. Performed By: #### 5 0103 ####[facility] [place] [address], [facility] Hemoglobin (Bld) [Mass/Vol] 11.0 g/dL Low 13.0-17.0 [facility] Comment on above: Order Comment: This order is a replacement of the rejected order with accession [id number]. Performed By: #### 5 0103 ####[facility] [place] [address], [facility] HGB CANCELED Normal 13.0-17.0 [facility] Comment on above: Result Comment: The released value 11.0 was canceled by KNG on 10/29/2020 22:20 Performed By: #### 5 0103 ####[facility] [place] [address], [facility] MAN JOLLY BODIES CANCELED Normal The [facility] Comment on above: Performed By: #### 5 0103 ####[facility] [place] [address], [facility] HYPERSEG NEUTROPHILS CANCELED Normal [facility] Comment on above: Performed By: #### 5 0103 ####[facility] [facility] [place] [address], [facility] HYPO CANCELED Normal [facility] Comment on above: Performed By: #### 5 0103 ####[facility] [facility] [place] [address], [facility] IL CANCELED Normal [facility] Comment on above: Performed By: #### 5 0103 ####[facility] [facility] [place] [address], [facility] IMM PLATELET FRAC CANCELED Normal The [facility] Comment on above: Performed By: #### 5 0103 ####[facility] [facility] [place] [address], [facility] IMMATURE GRANS CANCELED Normal The [facility] Comment on above: Performed By: #### 5 0103 ####[facility] [facility] [place] [address], [facility] IMMATURE GRANS 0.3 % Normal 0.0-1.0 The [facility] Comment on above: Order Comment: This order is a replacement of the rejected order with accession [id number]. Performed By: #### 5 0103 ####[facility] [facility].[address] Lymphocytes (Bld) [#/Vol] 16.0 10*3/uL High 1.2-4.0 [facility] Comment on above: Order Comment: This order is a replacement of the rejected order with accession [id number]. Performed By: #### 5 0103 ####[facility] [place] [address], [facility] Lymphocytes/100 WBC (Bld) 74.9 % High 20.0-45.0 [facility] Comment on above: Order Comment: This order is a replacement of the rejected order with accession [id number]. Performed By: #### 5 0103 ####[facility] [facility].[address] LYMPHS CANCELED Normal 20.0-45.0 [facility] Comment on above: Result Comment: The released value 38.6 was canceled by KNG on 10/29/2020 22:20 Performed By: #### 5 0103 ####[facility] [facility].[address] MACRO CANCELED Normal [facility] Comment on above: Performed By: #### 5 0103 ####[facility] [facility].[address] MCH CANCELED Normal 27.0-33.0 [facility] Comment on above: Result Comment: The released value 31.9 was canceled by KNG on 10/29/2020 22:20 Performed By: #### 5 0103 ####[facility] [facility].[address] MCH (RBC) [Entitic mass] 31.9 pg Normal 27.0-33.0 [facility] Comment on above: Order Comment: This order is a replacement of the rejected order with accession [id number]. Performed By: #### 5 0103 ####[facility] [facility].[address] MCHC CANCELED Normal 32.0-35.0 [facility] Comment on above: Result Comment: The released value 31.0 was canceled by KNG on 10/29/2020 22:20 Performed By: #### 5 0103 ####[facility] [facility].[address] MCHC (RBC) [Mass/Vol] 31.0 g/dL Low 32.0-35.0 [facility] Comment on above: Order Comment: This order is a replacement of the rejected order with accession [id number]. Performed By: #### 5 0103 ####[facility] MCV CANCELED Normal 82.0-98.0 [facility] Comment on above: Result Comment: The released value 102.9 was canceled by KNG on 10/29/2020 22:20 Performed By: #### 5 0103 ####[facility] MCV (RBC) [Entitic vol] 102.9 fL High 82.0-98.0 [facility] Comment on above: Order Comment: This order is a replacement of the rejected order with accession [id number]. Performed By: #### 5 3 ####[facility] METAMYELO CANCELED Normal [facility] Comment on above: Performed By: #### 5 3 ####[facility] MICRO CANCELED Normal [facility] Comment on above: Performed By: #### 5 0103 ####[place] [id number] [address] Monocytes (Bld) [#/Vol] 0.4 10*3/uL Normal 0.1-1.0 [facility] Comment on above: Order Comment: This order is a replacement of the rejected order with accession [id number]. Performed By: #### 5 0103 ####[facility] MONOS CANCELED Normal 5.0-12.0 [facility] Comment on above: Result Comment: The released value 1.0 was canceled by KNG on 10/29/2020 22:20 Performed By: #### 5 0103 ####[facility] [place] [address], [facility] MONOS 1.9 % Low 5.0-12.0 [facility] Comment on above: Order Comment: This order is a replacement of the rejected order with accession [id number]. Performed By: #### 5 0103 ####[facility] [place] [address], [facility] MYELOS CANCELED Normal [facility] Comment on above: Performed By: #### 5 0103 ####[facility] [place] [address], [facility] NEUTROPHILS CANCELED Normal 40.0-72.0 The [facility] Comment on above: Result Comment: The released value 60.4 was canceled by KNG on 10/29/2020 22:20 Performed By: #### 5 0103 ####[facility] [place] [address], [facility] Neutrophils/100 WBC (Bld) 22.5 % Low 40.0-72.0 [facility] Comment on above: Order Comment: This order is a replacement of the rejected order with accession [id number]. Performed By: #### 5 3 ####[facility] [place] [address], [facility] NRBC CANCELED Normal 0-0 [facility] Comment on above: Result Comment: The released value 0 was canceled by KNG on 10/29/2020 22:20 Performed By: #### 5 3 ####[facility] [place] [address], [facility] NRBC SCAN CANCELED Normal [facility] Comment on above: Performed By: #### 5 3 ####[facility] [place] [address], [place] OTHER 1 CANCELED Normal [facility] Comment on above: Performed By: #### 5 0103 ####[facility] [place] [address], [place] OTHER 2 CANCELED Normal [facility] Comment on above: Performed By: #### 5 0103 ####[facility] [place] [address], [place] OTHER 3 CANCELED Normal [facility] Comment on above: Performed By: #### 5 0103 ####[facility] [place] [address], [place] OTHER 4 CANCELED Normal [facility] Comment on above: Performed By: #### 5 0103 ####[facility] [place] [address], [place] OVALOCYTES CANCELED Normal [facility] Comment on above: Performed By: #### 5 0103 ####[facility] [place] [address], [place] PAPPENHEIMER BODIES CANCELED Normal The [facility] Comment on above: Performed By: #### 5 0103 ####[facility] [place] [address], [place] PARASITES CANCELED Normal [facility] Comment on above: Performed By: #### 5 0103 ####[facility] [place] [address], [place] PLAT CNT CANCELED Normal 150-400 [facility] Comment on above: Result Comment: The released value 139 was canceled by MLEIDA on 10/29/2020 22:20 Performed By: #### 0103 ####[facility] [place] [address], [place] PLAT CNT 139 10*3/uL Low 150-400 The [facility] Comment on above: Order Comment: This order is a replacement of the rejected order with accession [id number]. Performed By: #### 5 0103 ####[facility] [place] [address], [facility] PLAT ESTIMATE CANCELED Normal The [facility] Comment on above: Performed By: #### 5 0103 ####[facility] [place] [address], [facility] POIK CANCELED Normal [facility] Comment on above: Performed By: #### 5 0103 ####[facility] [place] [address], [facility] POLY CANCELED Normal [facility] Comment on above: Performed By: #### 5 0103 ####[facility] [place] [address], [facility] PROMYELO CANCELED Normal [facility] Comment on above: Performed By: #### 5 0103 ####[facility] [place] [address], [facility] RBC CANCELED Normal 4.20-5.70 [facility] Comment on above: Result Comment: The released value 3.45 was canceled by KNG on 10/29/2020 22:20 Performed By: #### 5 0103 ####[facility] [facility] [place] [place] [address], [facility] RBC (Bld) [#/Vol] 3.45 10*6/uL Low 4.20-5.[address] [facility] Comment on above: Order Comment: This order is a replacement of the rejected order with accession [id number]. Performed By: #### 5 0103 ####[facility] [place] [address], [facility] RDW CANCELED Normal 11.5-15.0 [facility] Comment on above: Result Comment: The released value 15.0 was canceled by KNG on 10/29/2020 22:20 Performed By: #### 5 0103 ####[facility] [place] [address], [facility] REACTIVE LYMPHS CANCELED Normal The [facility] Comment on above: Performed By: #### 5 0103 ####[facility] [place] [address], [place] ROULEAUX CANCELED Normal [facility] Comment on above: Performed By: #### 5 0103 ####[facility] [place] [address], [facility] SCHISTOCYTES CANCELED Normal The [facility] Comment on above: Performed By: #### 5 3 ####[facility] [place] [address], [place] SEGS CANCELED Normal [facility] Comment on above: Performed By: #### 5 0103 ####[facility] [facility] [place] [address], [place] SICKLE CELLS CANCELED Normal The [facility] Comment on above: Performed By: #### 5 3 ####[facility] [facility] [place] [address], [facility] SMUDGE CELLS CANCELED Normal The [facility] Comment on above: Result Comment: The released value Many was canceled by KNG on 10/29/2020 22:20 Performed By: #### 5 0103 ####[facility] [facility] [place] [address], [place] SMUDGE CELLS Many Normal The [facility] Comment on above: Order Comment: This order is a replacement of the rejected order with accession [id number]. Performed By: #### 5 3 ####[facility] [facility] [place] [address], [facility] SPHEROCYTES CANCELED Normal The [facility] Comment on above: Performed By: #### 5 0103 ####[facility] [facility] [place] [address], [facility] STOMATOCYTES CANCELED Normal The [facility] Comment on above: Performed By: #### 5 0103 ####[facility] [facility] [place] [address], [facility] TARGET CELLS CANCELED Normal The [facility] Comment on above: Performed By: #### 5 0103 ####[facility] [facility] [place] [address], [facility] TEAR DROP CELLS CANCELED Normal The [facility] Comment on above: Performed By: #### 5 0103 ####[facility] [facility] [place] [address], [facility] TOXIC GRANULATION CANCELED Normal The [facility] Comment on above: Performed By: #### 5 0103 ####[facility] [facility] [place] [address], [facility] VAC NEUTROPHIL CANCELED Normal The [facility] Comment on above: Performed By: #### 5 0103 ####[facility] [facility].[address] WBC CANCELED Normal 4.00-10.60 [facility] Comment on above: Result Comment: The released value 21.41 was canceled by KNG on 10/29/2020 22:20 Performed By: #### 5 0103 ####[facility] [facility] [place] [address], [facility] WBC (Bld) [#/Vol] 21.41 10*3/uL High 4.00-10.60 [facility] Comment on above: Order Comment: This order is a replacement of the rejected order with accession [id number]. Performed By: #### 5 0103 ####[facility] [facility] [place] [address], [facility] ABS IMM GRANS 0.1 10*3/uL Normal 0.0-0.2 The [facility] Comment on above: Order Comment: No: D o not add to previous draw Performed By: #### 5 0103 ####[facility] [place] [address], [facility] ABS NEUTROPHILS 4.4 10*3/uL Normal 1.6-7.6 The [facility] Comment on above: Order Comment: No: D o not add to previous draw Performed By: #### 5 0103 ####[facility] [place] [address], [facility] Basophils (Bld) [#/Vol] 0.1 10*3/uL Normal 0.0-0.2 [facility] Comment on above: Order Comment: No: D o not add to previous draw Performed By: #### 5 0103 ####[facility] [facility] [place] [address], [facility] Basophils/100 WBC (Bld) 0.3 % Normal 0.0-1.0 [facility] Comment on above: Order Comment: No: D o not add to previous draw Performed By: #### 5 0103 ####[facility] [place] [address], [facility] Eosinophils (Bld) [#/Vol] 0.1 10*3/uL Normal 0.0-0.5 [facility] Comment on above: Order Comment: No: D o not add to previous draw Performed By: #### 5 0103 ####[facility] [place] [address], [facility] Eosinophils/100 WBC (Bld) 0.3 % Normal 0.0-6.0 [facility] Comment on above: Order Comment: No: D o not add to previous draw Performed By: #### 5 0103 ####[facility] Erythrocyte distribution width (RBC) [Ratio] 15.4 % High 11.5-15.0 [facility] Comment on above: Order Comment: No: D o not add to previous draw Performed By: #### 5 0103 ####[facility] Hematocrit (Bld) [Volume fraction] 33.8 % Low 39.0-50.0 [facility] Comment on above: Order Comment: No: D o not add to previous draw Performed By: #### 5 0103 ####[facility] Hemoglobin (Bld) [Mass/Vol] 9.8 g/dL Low 13.0-17.0 [facility] Comment on above: Order Comment: No: D o not add to previous draw Performed By: #### 5 0103 ####[facility] IMMATURE GRANS 0.3 % Normal 0.0-1.0 The [facility] Comment on above: Order Comment: No: D o not add to previous draw Performed By: #### 5 0103 ####[facility] Lymphocytes (Bld) [#/Vol] 14.8 10*3/uL High 1.2-4.0 [facility] Comment on above: Order Comment: No: D o not add to previous draw Performed By: #### 5 0103 ####[facility] [place] [address], [facility] Lymphocytes/100 WBC (Bld) 75.4 % High 20.0-45.0 [facility] Comment on above: Order Comment: No: D o not add to previous draw Performed By: #### 5 0103 ####[facility] MCH (RBC) [Entitic mass] 31.8 pg Normal 27.0-33.0 [facility] Comment on above: Order Comment: No: D o not add to previous draw Performed By: #### 5 0103 ####[facility] MCHC (RBC) [Mass/Vol] 29.0 g/dL Low 32.0-35.0 [facility] Comment on above: Order Comment: No: D o not add to previous draw Performed By: #### 5 0103 ####[address] MCV (RBC) [Entitic vol] 109.7 fL High 82.0-98.0 [facility] Comment on above: Order Comment: No: D o not add to previous draw Performed By: #### 5 0103 ####[address] Monocytes (Bld) [#/Vol] 0.3 10*3/uL Normal 0.1-1.0 [facility] Comment on above: Order Comment: No: D o not add to previous draw Performed By: #### 5 0103 ####[facility] MONOS 1.4 % Low 5.0-12.0 [facility] Comment on above: Order Comment: No: D o not add to previous draw Performed By: #### 5 0103 ####[address] Neutrophils/100 WBC (Bld) 22.3 % Low 40.0-72.0 [facility] Comment on above: Order Comment: No: D o not add to previous draw Performed By: #### 5 0103 ####[facility] [facility].[address] Nucleated RBC/100 WBC (Bld) [Ratio] 0 % Normal 0-0 [facility] Comment on above: Order Comment: No: D o not add to previous draw Performed By: #### 5 0103 ####[facility] [facility].[address] OTHER 1 Lymphocytosis and ma ny smudge cells. Normal [facility] Comment on above: Order Comment: No: D o not add to previous draw Result Comment: Resu lt changed by CHIKI on 10/31/2020 12:14. The previous value wasPreliminary report; verified report to follow. Performed By: #### 5 0103 ####[facility] [facility].[address] OTHER 2 Checked by Erika Martinez M.D. Normal [facility] Comment on above: Order Comment: No: D o not add to previous draw Result Comment: This result added by CHIKI on 10/31/2020 12:14. Performed By: #### 5 3 ####[facility]3000 [facility].[address] PLAT CNT 125 10*3/uL Low 150-400 The [facility] Comment on above: Order Comment: No: D o not add to previous draw Performed By: #### 5 0103 ####[facility]3000 [facility] [place] [address], [facility] RBC (Bld) [#/Vol] 3.08 10*6/uL Low 4.20-5.[address] [facility] Comment on above: Order Comment: No: D o not add to previous draw Performed By: #### 5 0103 ####[facility] [place] [address], [facility] SMUDGE CELLS MANY PRESENT Normal The [facility] Comment on above: Order Comment: No: D o not add to previous draw Performed By: #### 5 0103 ####[facility] [place] [address], [facility] WBC (Bld) [#/Vol] 19.59 10*3/uL High 4.00-10.60 The [facility] Comment on above: Order Comment: No: D o not add to previous draw Performed By: #### 5 0103 ####[facility] [place] [address], [facility] CT ABDOMEN AND PELVIS WO CON TRASTon 10-29-2020 CT ABDOMEN AND PELVIS WO CONTRAST Normal The [facility] Comment on above: Order Comment: Other , s/p sigmoid colectomy d/t perforated diverticulum. Severe abdominal pain. R/O further abdominal pathology. MAGNESIUM BLOODon 10-29-2020 Magnesium [Mass/Vol] 2.1 mg/dL Normal 1.9-2.7 The [facility] Comment on above: Order Comment: No: D o not add to previous draw Performed By: #### 0 0071, 74392 ####[facility] [place] [address], [facility] Magnesium [Mass/Vol] 2.0 mg/dL Normal 1.9-2.7 The [facility] Comment on above: Order Comment: No: D o not add to previous draw Performed By: #### 0 0071, 86060 ####[facility] [place] [address], [facility] POC GLUCOSE LABon 10-29-2020 Glucose [Mass/Vol] 172 mg/dL High 70-100 The [facility] Comment on above: Performed By: #### 8 5499 ####[facility] [place] [address], [place] Glucose [Mass/Vol] 177 mg/dL High 70-100 [facility] Comment on above: Performed By: #### 8 5499 ####[facility] [place] [address], [facility] Glucose [Mass/Vol] 135 mg/dL High 70-100 [facility] Comment on above: Performed By: #### 8 5499 ####[facility] [facility] [place] [place] [address], [place] Glucose [Mass/Vol] 131 mg/dL High 70-100 [facility] Comment on above: Performed By: #### 8 5499 ####[facility] [facility].[place] [id number], [facility] BASIC METABOLIC PANELon 10-04 Calcium [Mass/Vol] 7.5 mg/dL Low 8.6-10.3 [facility] Comment on above: Order Comment: No: D o not add to previous draw Performed By: #### 0 0071, 41923 ####[facility] [facility] [place] [address], [place] Chloride [Moles/Vol] 105 mmol/L Normal 98-107 The [facility] Comment on above: Order Comment: No: D o not add to previous draw Performed By: #### 0 0071, 02815 ####[facility] [facility] [place] [address], [place] CO2 [Moles/Vol] 24 mmol/L Normal 21-31 The [facility] Comment on above: Order Comment: No: D o not add to previous draw Performed By: #### 0 0071, 06572 ####[facility] [facility] [place] [place] [address], [place] Creatinine [Mass/Vol] 0.97 mg/dL Normal 0.70-1.30 The [facility] Comment on above: Order Comment: No: D o not add to previous draw Performed By: #### 0 0071, 27029 ####[facility] [place] [address], [facility] GFR/1.73 sq M.predicted among blacks MDRD (S/P/Bld) [Vol rate/Area] mL/min/{1.73_m2} Normal >60 The [facility] Comment on above: Order Comment: No: D o not add to previous draw Result Comment: Calc ulation may not be valid for patients over 70 years Performed By: #### 0 0071, 72819 ####[facility] [place] [address], [facility] GFR/1.73 sq M.predicted among non-blacks MDRD (S/P/Bld) [Vol rate/Area] mL/min/{1.73_m2} Normal >60 [facility] Comment on above: Order Comment: No: D o not add to previous draw Result Comment: Calc ulation may not be valid for patients over 70 years Performed By: #### 0 0071, 85067 ####[facility] [place] [address], [facility] Glucose [Mass/Vol] 206 mg/dL High 70-100 [facility] Comment on above: Order Comment: No: D o not add to previous draw Performed By: #### 0 0071, 43305 ####[facility] [place] [address], [facility] Potassium [Moles/Vol] 3.4 mmol/L Low 3.5-5.1 The [facility] Comment on above: Order Comment: No: D o not add to previous draw Performed By: #### 0 0071, 57076 ####[facility] [place] [address], [facility] Sodium [Moles/Vol] 136 mmol/L Normal 136-145 [facility] Comment on above: Order Comment: No: D o not add to previous draw Performed By: #### 0 0071, 38789 ####[facility]3000 [facility].[address] Urea nitrogen [Mass/Vol] 17 mg/dL Normal 7-25 The [facility] Comment on above: Order Comment: No: D o not add to previous draw Performed By: #### 0 0071, 17926 ####[facility] [facility].[address] CBC COMPLETE BLOOD COUNTon 10-28-2020 Erythrocyte distribution width (RBC) [Ratio] 15.1 % High 11.5-15.0 [facility] Comment on above: Order Comment: No: D o not add to previous draw Performed By: #### 5 0608 ####[facility] Hematocrit (Bld) [Volume fraction] 36.2 % Low 39.0-50.0 [facility] Comment on above: Order Comment: No: D o not add to previous draw Performed By: #### 5 0608 ####[place] [id number] [address] Hemoglobin (Bld) [Mass/Vol] 11.6 g/dL Low 13.0-17.0 [facility] Comment on above: Order Comment: No: D o not add to previous draw Performed By: #### 5 0608 ####[facility]3000 [facility].[address] MCH (RBC) [Entitic mass] 31.8 pg Normal 27.0-33.0 [facility] Comment on above: Order Comment: No: D o not add to previous draw Performed By: #### 5 0608 ####[facility] [place] [address] MCHC (RBC) [Mass/Vol] 32.0 g/dL Normal 32.0-35.0 [facility] Comment on above: Order Comment: No: D o not add to previous draw Performed By: #### 5 0608 ####[facility] [facility] [place] [address], [facility] MCV (RBC) [Entitic vol] 99.2 fL High 82.0-98.0 [facility] Comment on above: Order Comment: No: D o not add to previous draw Performed By: #### 5 0608 ####[facility] Nucleated RBC/100 WBC (Bld) [Ratio] 0 % Normal 0-0 [facility] Comment on above: Order Comment: No: D o not add to previous draw Performed By: #### 5 0608 ####[facility] [place] [address], [facility] PLAT CNT 133 10*3/uL Low 150-400 [facility] Comment on above: Order Comment: No: D o not add to previous draw Performed By: #### 5 0608 ####[facility] [facility] [place] [address], [facility] RBC (Bld) [#/Vol] 3.65 10*6/uL Low 4.20-5.[address] [facility] Comment on above: Order Comment: No: D o not add to previous draw Performed By: #### 5 0608 ####[facility] [facility] [place] [address], [facility] WBC (Bld) [#/Vol] 27.62 10*3/uL High 4.00-10.60 [facility] Comment on above: Order Comment: No: D o not add to previous draw Performed By: #### 5 0608 ####[facility] [place] [address], [facility] MAGNESIUM BLOODon 10-28-2020 Magnesium [Mass/Vol] 2.0 mg/dL Normal 1.9-2.7 [facility] Comment on above: Order Comment: No: D o not add to previous draw Performed By: #### 0 0071, 76160 ####[facility] [place] [address], [facility] Operative Reporton Operative Report Normal The [facility] POC GLUCOSE LABon 10-28-2020 Glucose [Mass/Vol] 141 mg/dL High 70-100 [facility] Comment on above: Performed By: #### 8 5499 ####[facility] [place] [address], [place] Glucose [Mass/Vol] 128 mg/dL High 70-100 [facility] Comment on above: Performed By: #### 8 5499 ####[facility] [place] [address], [place] Glucose [Mass/Vol] 166 mg/dL High 70-100 [facility] Comment on above: Performed By: #### 8 5499 ####[facility] [place] [address], [place] Glucose [Mass/Vol] 182 mg/dL High 70-100 [facility] Comment on above: Performed By: #### 8 5499 ####[facility] [place] [address], [place] Glucose [Mass/Vol] 222 mg/dL High 70-100 [facility] Comment on above: Performed By: #### 8 5499 ####[facility] [id number], [place] APTTon 10-27-2020 aPTT Coag (Bld) [Time] 33.4 s Normal 25.0-35.0 The [facility] Comment on above: Order Comment: [...] THIS PURPOSE. Performed By: #### 5 7307, 01703 ####[facility]3000 [facility].[address] ARTERIAL BLOOD GAS W/COOXon 10-27-2020 BASE EXCESS -2 mmol/L Normal -2-3 [facility] Comment on above: Performed By: #### 7 006, 30696, 56453, 33782 ####[place] [address] [facility].[address] COHB 1.3 % Normal 0.0-1.5 [facility] Comment on above: Performed By: #### 7 66, , 26906, 68284 ####[facility] [facility] [place] [address], [facility] HCO3 (Bld) [Moles/Vol] 22 mmol/L Normal 21-28 [facility] Comment on above: Performed By: #### 7 7, 54811, 14729, 28351 ####[place] [address] [facility] [place] [address], [facility] METHB 0.6 % Normal 0.0-1.5 [facility] Comment on above: Performed By: #### 7 66, 15494, 06897, 57999 ####[facility] [facility] [place] [address], [facility] MODALITY OR Normal [facility] Comment on above: Performed By: #### 7 66, 81895, 51991, 35265 ####[facility] [facility] [place] [address], [facility] Oxygen (Bld) [Partial pressure] 172 mm[Hg] Critically high 83-108 [facility] Comment on above: Performed By: #### 7 0067, 70102, 43387, 85214 ####[facility] Oxygen saturation in Blood 96.9 % Normal 94.0-97.0 [facility] Comment on above: Performed By: #### 7 7, 31165, 44058, 28690 ####[facility] [place] [address], [facility] PCO2 33 mmHg Low 35-45 [facility] Comment on above: Performed By: #### 7 7, 75845, 66508, 22884 ####[facility] [place] [address], [facility] pH (Bld) 7.43 [pH] Normal 7.35-7.45 [facility] Comment on above: Performed By: #### 7 0067, 87314, 09412, 03364 ####[facility] THB 11.3 g/dL Low 12.0-16.3 [facility] Comment on above: Performed By: #### 7 0067, 97481, 61903, 67915 ####[facility] BASIC METABOLIC PANELon 10-04 Calcium [Mass/Vol] 8.4 mg/dL Low 8.6-10.3 [facility] Comment on above: Order Comment: No: D o not add to previous draw Performed By: #### 1 0, 82534 ####[facility] [place] [address], [facility] Chloride [Moles/Vol] 104 mmol/L Normal 98-107 [facility] Comment on above: Order Comment: No: D o not add to previous draw Performed By: #### 1 0070, 12612 ####[facility] [place] [address], [facility] CO2 [Moles/Vol] 24 mmol/L Normal 21-31 [facility] Comment on above: Order Comment: No: D o not add to previous draw Performed By: #### 1 69, 32660 ####[facility] [facility] [place] [address], [facility] Creatinine [Mass/Vol] 1.03 mg/dL Normal 0.70-1.30 [facility] Comment on above: Order Comment: No: D o not add to previous draw Performed By: #### 1 69, 71366 ####[facility] [facility] [place] [address], [facility] GFR/1.73 sq M.predicted among blacks MDRD (S/P/Bld) [Vol rate/Area] mL/min/{1.73_m2} Normal >60 [facility] Comment on above: Order Comment: No: D o not add to previous draw Result Comment: Calc ulation may not be valid for patients over 70 years Performed By: #### 1 69, 79812 ####[facility] [facility] [place] [address], [facility] GFR/1.73 sq M.predicted among non-blacks MDRD (S/P/Bld) [Vol rate/Area] mL/min/{1.73_m2} Normal >60 [facility] Comment on above: Order Comment: No: D o not add to previous draw Result Comment: Calc ulation may not be valid for patients over 70 years Performed By: #### 1 69, 67120 ####[facility] [facility] [place] [place] [address], [facility] Glucose [Mass/Vol] 176 mg/dL High 70-100 [facility] Comment on above: Order Comment: No: D o not add to previous draw Performed By: #### 1 69, 62316 ####[facility] Potassium [Moles/Vol] 3.8 mmol/L Normal 3.5-5.1 [facility] Comment on above: Order Comment: No: D o not add to previous draw Performed By: #### 1 0, 54077 ####[facility]3000 [facility].[address] Sodium [Moles/Vol] 134 mmol/L Low 136-145 [facility] Comment on above: Order Comment: No: D o not add to previous draw Performed By: #### 1 69, 28325 ####[facility]3000 [facility].[address] Urea nitrogen [Mass/Vol] 21 mg/dL Normal 7-25 [facility] Comment on above: Order Comment: No: D o not add to previous draw Performed By: #### 1 69, 48298 ####[facility]3000 [facility].[address] CALCIUM IONIZED CBGLon 10-27 IONIZED CALCIUM 1.07 mmol/L Low 1.13-1.32 [facility] Comment on above: Performed By: #### 7 0067, 30270, 62008, 70562 ####[place] [id number] [facility].[address] CBC COMPLETE BLOOD COUNTon 0 10-27-2020 Erythrocyte distribution width (RBC) [Ratio] 15.0 % Normal 11.5-15.0 [facility] Comment on above: Order Comment: No: D o not add to previous draw Performed By: #### 5 0608 ####[facility]3000 [facility].[address] Hematocrit (Bld) [Volume fraction] 38.8 % Low 39.0-50.0 [facility] Comment on above: Order Comment: No: D o not add to previous draw Performed By: #### 5 0608 ####[facility] Hemoglobin (Bld) [Mass/Vol] 12.5 g/dL Low 13.0-17.0 [facility] Comment on above: Order Comment: No: D o not add to previous draw Performed By: #### 5 0608 ####[address] MCH (RBC) [Entitic mass] 31.9 pg Normal 27.0-33.0 [facility] Comment on above: Order Comment: No: D o not add to previous draw Performed By: #### 5 0608 ####[address] MCHC (RBC) [Mass/Vol] 32.2 g/dL Normal 32.0-35.0 [facility] Comment on above: Order Comment: No: D o not add to previous draw Performed By: #### 5 0608 ####[address] MCV (RBC) [Entitic vol] 99.0 fL High 82.0-98.0 [facility] Comment on above: Order Comment: No: D o not add to previous draw Performed By: #### 5 0608 ####[address] Nucleated RBC/100 WBC (Bld) [Ratio] 0 % Normal 0-0 [facility] Comment on above: Order Comment: No: D o not add to previous draw Performed By: #### 5 0608 ####[address] PLAT CNT 140 10*3/uL Low 150-400 [facility] Comment on above: Order Comment: No: D o not add to previous draw Performed By: #### 5 0608 ####[facility] [place] [address], [facility] RBC (Bld) [#/Vol] 3.92 10*6/uL Low 4.20-5.[address] [facility] Comment on above: Order Comment: No: D o not add to previous draw Performed By: #### 5 0608 ####[facility] [place] [address], [facility] WBC (Bld) [#/Vol] 27.81 10*3/uL High 4.00-10.60 [facility] Comment on above: Order Comment: No: D o not add to previous draw Performed By: #### 5 0608 ####[facility] [place] [address], [facility] LACTATE BLOODon 10-27-2020 Lactate [Moles/Vol] 0.8 mmol/L Normal 0.5-2.[address] [facility] Comment on above: Order Comment: No: D o not add to previous draw Performed By: #### 1 0054 ####[facility] [place] [address], [facility] LIPASE BLOODon 10-27-2020 LIPASE 7 Units/L Low 11-82 [facility] Comment on above: Order Comment: No: D o not add to previous draw Performed By: #### 3 1351, 05304, 28823 ####[facility] [place] [address], [facility] LIVER BATTERYon 10-27-2020 Albumin [Mass/Vol] 3.6 g/dL Normal 3.5-5.7 [facility] Comment on above: Order Comment: No: D o not add to previous draw Performed By: #### 3 6901, 02287, 03767 ####[facility] [place] [address], [facility] ALKALINE PHOSPH 54 IU/L Normal 34-104 [facility] Comment on above: Order Comment: No: D o not add to previous draw Performed By: #### 3 6901, 37531, 82574 ####[facility] [place] [address], [place] ALT [Catalytic activity/Vol] 38 U/L Normal 7-52 [facility] Comment on above: Order Comment: No: D o not add to previous draw Performed By: #### 3 6901, 92594, 18549 ####[facility] [place] [address], [place] AST [Catalytic activity/Vol] 28 U/L Normal 13-39 [facility] Comment on above: Order Comment: No: D o not add to previous draw Performed By: #### 3 6901, 16275, 89054 ####[facility] [place] [address], [place] Bilirubin [Mass/Vol] 1.3 mg/dL High 0.3-1.0 [facility] Comment on above: Order Comment: No: D o not add to previous draw Performed By: #### 3 6901, 22398, 97018 ####[facility] [place] [address], [place] Bilirubin.direct [Mass/Vol] 0.4 mg/dL High 0.0-0.2 [facility] Comment on above: Order Comment: No: D o not add to previous draw Performed By: #### 3 6901, 81467, 80831 ####[facility] [place] [address], [place] Protein [Mass/Vol] 5.5 g/dL Low 6.0-8.3 [facility] Comment on above: Order Comment: No: D o not add to previous draw Performed By: #### 3 6901, 38665, 03732 ####[facility] [place] [address], [facility] MAGNESIUM BLOODon 10-27-2020 Magnesium [Mass/Vol] 1.7 mg/dL Low 1.9-2.7 [facility] Comment on above: Order Comment: No: D o not add to previous draw Performed By: #### 1 0070, 39404 ####[facility] [facility] [place] [address], [facility] POC GLUCOSE LABon 10-27-2020 Glucose [Mass/Vol] 193 mg/dL High 70-100 [facility] Comment on above: Performed By: #### 8 5499 ####[facility] [facility] [place] [address], [facility] Glucose [Mass/Vol] 173 mg/dL High 70-100 [facility] Comment on above: Performed By: #### 8 5499 ####[facility] [facility] [place] [address], [facility] Glucose [Mass/Vol] 153 mg/dL High 70-100 [facility] Comment on above: Performed By: #### 8 5499 ####[facility] [facility] [place] [address], [facility] Glucose [Mass/Vol] 186 mg/dL High 70-100 [facility] Comment on above: Performed By: #### 8 5499 ####[facility] [facility] [place] [address], [facility] Glucose [Mass/Vol] 183 mg/dL High 70-100 [facility] Comment on above: Performed By: #### 8 5499 ####[facility] [facility] [place] [address], [facility] PORTABLE CHEST 1 VIEWon 10-04 PORTABLE CHEST 1 VIEW Normal [facility] Comment on above: Order Comment: Check NG Tube Position POTASSIUM WHOLE BLOOD CBGLon 02-25-2021 Potassium [Moles/Vol] 3.2 mmol/L Low 3.4-5.2 [facility] Comment on above: Performed By: #### 7 0067, 91767, 88319, 80476 ####[facility] [facility].[address] PROTHROMBIN TIMEon 1 INR Coag (PPP) [Relative time] 1.09 {INR} Normal 0.91-1.16 [facility] Comment on above: Order Comment: [...] OF ACTION, CLINICALEFFECTIVENESS, AND OPTIMAL THERAPEUTIC RANGE. [id number]. Performed By: #### 5 7307, 40499 ####[facility] [facility] [place] [address], [facility] PT Coag (PPP) [Time] 14.2 s Normal 12.3-14.8 [facility] Comment on above: Order Comment: No: D o not add to previous draw Result Comment: ALL RESULTS MUST BE INTERPRETED WITH RESPECT TO BLOOD DRAWING ARTIFACTOR DILUTION ERROR OF ANTICOAGULANT AT THE TIME OF SAMPLING. Performed By: #### 5 7307, 91024 ####[facility] [place] [address], [facility] SODIUM WHOLE BLOOD CBGLon Sodium [Moles/Vol] 133.0 mmol/L Low 136.0-146.0 [facility] Comment on above: Performed By: #### 7 0067, 59948, 20772, 94930 ####[facility] [place] [address], [facility] TROPONIN-Ion 10-27-2020 Troponin I.cardiac [Mass/Vol] 0.01 ng/mL Normal 0.00-0.04 [facility] Comment on above: Order Comment: No: D o not add to previous draw Result Comment: REFE RENCE RANGES: 0.00 - 0.04 ng/ml NORMAL 0.05 - 0.50 ng/ml INDETERMINATE > 0.50 ng/ml CONSISTENT WITH AN M.I. Performed By: #### 3 6901, 49642, 61914 ####[facility] [facility] [place] [address], [facility] TYPE AND SCREENon 10-27-2020 ABO INTERPRETATION O Normal [facility] [place] [facility] Comment on above: Performed By: [id number] ####[facility] [facility] [place] [address], [facility] RH INTERPRETATION Positive Normal [facility] Comment on above: Performed By: [id number] ####[facility] [facility] [place] [address], [facility] Vital Signs Date Time Vital Sign Value Performing Clinician Facility 05-25-2025 13:040 Body height 162.56 cm Shaikh Holly CARIAS Work Phone: [facility] 05-25-2025 13:26-040 Body mass index (BMI) [Ratio] 26.4 kg/m2 Shaikh Holly CARIAS Work Phone: [facility] 05-25-2025 13:26-0400 Body weight 69.85 kg Shaikh Holly CARIAS Work Phone: [facility] 05-25-2025 13:26-0400 Diastolic blood pressure 56 mm[Hg] Shaikh Holly CARIAS Work Phone: [facility] 05-25-2025 13:26-0400 Heart rate 96 /min Shaikh Holly CARIAS Work Phone: [facility] 05-25-2025 13:26-0400 Respiratory rate 14 /min Shaikh Holly CARIAS Work Phone: [facility] 05-25-2025 13:26-0400 SaO2% (BldA) [Mass fraction] 97 % Shaikh Holly CARIAS Work Phone: [facility] 05-25-2025 13:26-0400 Systolic blood pressure 100 mm[Hg] Shaikh Holly CARIAS Work Phone: [facility] 03-31-2025 13:55-0400 Body mass index (BMI) [Ratio] 27.5 kg/m2 Mireya Rojas MANAGEMENT PROFESSOR Work Phone: [facility] 03-31-2025 13:55-0400 Body temperature 98.49 [degF] Mireya Rojas MANAGEMENT PROFESSOR Work Phone: [facility] 03-31-2025 13:55-0400 Body weight 72.67 kg Mireya Crystal MANAGEMENT PROFESSOR Work Phone: [facility] 03-31-2025 13:55-0400 Diastolic blood pressure 66 mm[Hg] Mireya Crystal MANAGEMENT PROFESSOR Work Phone: [facility] 03-31-2025 13:55-0400 Heart rate 73 /min Mireya Crystal MANAGEMENT PROFESSOR Work Phone: [facility] 03-31-2025 13:55-0400 Respiratory rate 20 /min Mireya Crystal MANAGEMENT PROFESSOR Work Phone: [facility] 03-31-2025 13:55-0400 SaO2% (BldA) [Mass fraction] 96 % Mireya Rojas MANAGEMENT PROFESSOR Work Phone: [facility] 03-31-2025 13:55-0400 Systolic blood pressure 120 mm[Hg] Mireya Rojas MANAGEMENT PROFESSOR Work Phone: [facility] 02-10-2025 13:17-0400 Body height 162.6 cm Todd Vallecillo MD Work Phone: [facility] 02-10-2025 13:17-0400 Body mass index (BMI) [Ratio] 27.22 kg/m2 Todd Vallecillo MD Work Phone: [facility] 02-10-2025 13:17-0400 Body weight 71.94 kg Todd Vallecillo MD Work Phone: [facility] 02-10-2025 13:17-0400 Diastolic blood pressure 52 mm[Hg] Todd Vallecillo MD Work Phone: [facility] 02-10-2025 13:17-0400 Heart rate 72 /min Todd Vallecillo MD Work Phone: [facility] 02-10-2025 13:17-0400 Systolic blood pressure 112 mm[Hg] Todd Vallecillo MD Work Phone: [facility] 12-30-2024 14:44-0400 Body mass index (BMI) [Ratio] 27.26 kg/m2 Mireya Rojas MANAGEMENT PROFESSOR Work Phone: [facility] 12-30-2024 14:44-0400 Body temperature 98.49 [degF] Mireya Rojas MANAGEMENT PROFESSOR Work Phone: [facility] 12-30-2024 14:44-0400 Body weight 72.03 kg Mireya Rojas MANAGEMENT PROFESSOR Work Phone: [facility] 12-30-2024 14:44-0400 Diastolic blood pressure 68 mm[Hg] Mireya Aragonann MANAGEMENT PROFESSOR Work Phone: [facility] 12-30-2024 14:44-0400 Heart rate 59 /min Mireya Cartwrightjen MANAGEMENT PROFESSOR Work Phone: [facility] 12-30-2024 14:44-0400 Respiratory rate 18 /min Mireya Aragonann MANAGEMENT PROFESSOR Work Phone: [facility] 12-30-2024 14:44-0400 SaO2% (BldA) [Mass fraction] 99 % Mireya Aragonann MANAGEMENT PROFESSOR Work Phone: [facility] 12-30-2024 14:44-0400 Systolic blood pressure 108 mm[Hg] Mireya Aragonann MANAGEMENT PROFESSOR Work Phone: [facility] 12-28-2024 09:34-0400 Diastolic blood pressure 56 mm[Hg] Todd Vallecillo MD Work Phone: [facility] 12-28-2024 09:34-0400 Systolic blood pressure 104 mm[Hg] Todd Vallecillo MD Work Phone: [facility] 12-28-2024 09:26-0400 Body height 162.6 cm Todd Vallecillo MD Work Phone: [facility] 12-28-2024 09:26-0400 Body mass index (BMI) [Ratio] 27.46 kg/m2 Todd Vallecillo MD Work Phone: [facility] 12-28-2024 09:26-0400 Body weight 72.58 kg Todd Vallecillo MD Work Phone: [facility] 12-28-2024 09:26-0400 Heart rate 66 /min Todd Vallecillo MD Work Phone: [facility] 11-26-2024 14:21-0400 Body mass index (BMI) [Ratio] 27.43 kg/m2 Mireya Gabbieholz MANAGEMENT PROFESSOR Work Phone: [facility] 11-26-2024 14:21-0400 Body temperature 98.49 [degF] Mireya Gabbieholz MANAGEMENT PROFESSOR Work Phone: [facility] 11-26-2024 14:21-0400 Body weight 72.48 kg Mireya Maheshhholz MANAGEMENT PROFESSOR Work Phone: [facility] 11-26-2024 14:21-0400 Diastolic blood pressure 60 mm[Hg] Mireya Maheshhholz MANAGEMENT PROFESSOR Work Phone: [facility] 11-26-2024 14:21-0400 Heart rate 65 /min Mireya Gabbieholz MANAGEMENT PROFESSOR Work Phone: [facility] 11-26-2024 14:21-0400 Respiratory rate 18 /min Mireya Gabbieholz MANAGEMENT PROFESSOR Work Phone: [facility] 11-26-2024 14:21-0400 Systolic blood pressure 110 mm[Hg] Mireya Gabbieholz MANAGEMENT PROFESSOR Work Phone: [facility] 08-18-2024 13:31-0500 Body height 162.6 cm Leander Chanel MANAGEMENT PROFESSOR Work Phone: [facility] 08-18-2024 13:31-0500 Body mass index (BMI) [Ratio] 29.25 kg/m2 Leander Chanel MANAGEMENT PROFESSOR Work Phone: [facility] 08-18-2024 13:31-0500 Body temperature 96.6 [degF] Leander Chanel MANAGEMENT PROFESSOR Work Phone: [facility] 08-18-2024 13:31-0500 Body weight 77.29 kg Leander Chanel MANAGEMENT PROFESSOR Work Phone: [facility] 08-18-2024 13:31-0500 Diastolic blood pressure 72 mm[Hg] Leander Chanel MANAGEMENT PROFESSOR Work Phone: [facility] 08-18-2024 13:31-0500 Heart rate 79 /min Leander Howezpatrick MANAGEMENT PROFESSOR Work Phone: [facility] 08-18-2024 13:31-0500 Respiratory rate 16 /min Leander Howezpatrick MANAGEMENT PROFESSOR Work Phone: [facility] 08-18-2024 13:31-0500 SaO2% (BldA) [Mass fraction] 97 % Leander Gomezpatrick MANAGEMENT PROFESSOR Work Phone: [facility] 08-18-2024 13:31-0500 Systolic blood pressure 130 mm[Hg] Leander Gomezpatrick MANAGEMENT PROFESSOR Work Phone: [facility] 08-06-2024 14:03-0500 Body height 163.8 cm Frederick Zapata MD Work Phone: [facility] 08-06-2024 14:03-0500 Body mass index (BMI) [Ratio] 28.74 kg/m2 Frederick Zapata MD Work Phone: [facility] 08-06-2024 14:03-0500 Body temperature 97.11 [degF] Frederick Zapata MD Work Phone: [facility] 08-06-2024 14:03-0500 Body weight 77.1 kg Frederick Zapata MD Work Phone: [facility] 08-06-2024 14:03-0500 Diastolic blood pressure 68 mm[Hg] Frederick Zapata MD Work Phone: [facility] 08-06-2024 14:03-0500 Heart rate 79 /min Frederick Zapata MD Work Phone: [facility] 08-06-2024 14:03-0500 Respiratory rate 16 /min Frederick Zapata MD Work Phone: [facility] 08-06-2024 14:03-0500 SaO2% (BldA) [Mass fraction] 97 % Frederick Zapata MD Work Phone: [facility] 08-06-2024 14:03-0500 Systolic blood pressure 135 mm[Hg] Frederick Zapata MD Work Phone: [facility] 07-01-2024 14:18-0400 Body height 162.6 cm Leander Chanel MANAGEMENT PROFESSOR Work Phone: [facility] 07-01-2024 14:18-0400 Body mass index (BMI) [Ratio] 27.81 kg/m2 Leander Chanel MANAGEMENT PROFESSOR Work Phone: [facility] 07-01-2024 14:18-0400 Body temperature 97.5 [degF] Leander Chanel MANAGEMENT PROFESSOR Work Phone: [facility] 07-01-2024 14:18-0400 Body weight 73.48 kg Leander Chanel MANAGEMENT PROFESSOR Work Phone: [facility] 07-01-2024 14:18-0400 Diastolic blood pressure 68 mm[Hg] Leander Chanel MANAGEMENT PROFESSOR Work Phone: [facility] 07-01-2024 14:18-0400 Heart rate 83 /min Leander Chanel MANAGEMENT PROFESSOR Work Phone: [facility] 07-01-2024 14:18-0400 Respiratory rate 16 /min Leander Chanel MANAGEMENT PROFESSOR Work Phone: [facility] 07-01-2024 14:18-0400 SaO2% (BldA) [Mass fraction] 96 % Leander Chanel MANAGEMENT PROFESSOR Work Phone: [facility] 07-01-2024 14:18-0400 Systolic blood pressure 122 mm[Hg] Leander Chanel MANAGEMENT PROFESSOR Work Phone: [facility] 08-08-2023 14:46-0500 Body temperature 97.59 [degF] Frederick Zapata MD Work Phone: [facility] 08-08-2023 14:46-0500 Body weight 76.3 kg Frederick Zapata MD Work Phone: [facility] 08-08-2023 14:46-0500 Diastolic blood pressure 57 mm[Hg] Frederick Zapata MD Work Phone: [facility] 08-08-2023 14:46-0500 Heart rate 77 /min Frederick Zapata MD Work Phone: [facility] 08-08-2023 14:46-0500 Respiratory rate 18 /min Frederick Zapata MD Work Phone: [facility] 08-08-2023 14:46-0500 SaO2% (BldA) [Mass fraction] 97 % Frederick Zapata MD Work Phone: [facility] 08-08-2023 14:46-0500 Systolic blood pressure 127 mm[Hg] Frederick Zapata MD Work Phone: [facility] 06-14-2023 17:35-0400 Body height 162.56 cm Annmarie Mcgee Other [employer] Other 06-14-2023 17:35-0400 Body mass index (BMI) [Ratio] 29.61 kg/m2 Annmarie Mcgee Other [employer] Other 06-14-2023 17:35-0400 Body temperature 98.2 [degF] Annmarie Mcgee Other [employer] Other 06-14-2023 17:35-0400 Body weight 78.25 kg Annmarie Arely Other [employer] Other 06-14-2023 17:35-0400 Diastolic blood pressure 54 mm[Hg] Annmarie Mcgee Other [employer] Other 06-14-2023 17:35-0400 Respiratory rate 18 /min Annmarie Mcgee Other [employer] Other 06-14-2023 17:35-0400 SaO2% (BldA) [Mass fraction] 96 % Annmarie Mcgee Other [employer] Other 06-14-2023 17:35-0400 Systolic blood pressure 111 mm[Hg] Annmarie Mcgee Other [employer] Other 09-17-2022 14:35-0500 Body height 162.56 cm Annmarie Mcgee Other [employer] Other 09-17-2022 14:35-0500 Body mass index (BMI) [Ratio] 29.18 kg/m2 Annmarie Maemond Other [employer] Other 09-17-2022 14:35-0500 Body temperature 98.1 [degF] Annmarie Mcgee Other [employer] Other 09-17-2022 14:35-0500 Body weight 77.11 kg Annmarie Mcgee Other [employer] Other 09-17-2022 14:35-0500 Respiratory rate 18 /min Annmarie Maemond Other [employer] Other 09-17-2022 14:35-0500 SaO2% (BldA) [Mass fraction] 98 % Annmarie Maemond Other [employer] Other 01-01-2022 13:47-0400 Body height 163.8 cm Frederick Zapata MD Work Phone: [facility] 01-01-2022 13:47-0400 Body temperature 97.9 [degF] Frederick Zapata MD Work Phone: [facility] 01-01-2022 13:47-0400 Body weight 73.39 kg Frederick Zapata MD Work Phone: [facility] 01-01-2022 13:47-0400 Diastolic blood pressure 59 mm[Hg] Frederick Zapata MD Work Phone: [facility] 01-01-2022 13:47-0400 Heart rate 66 /min Frederick Zapata MD Work Phone: [facility] 01-01-2022 13:47-0400 Respiratory rate 16 /min Frederick Zapata MD Work Phone: [facility] 01-01-2022 13:47-0400 SaO2% (BldA) [Mass fraction] 97 % Frederick Zapata MD Work Phone: [facility] 01-01-2022 13:47-0400 Systolic blood pressure 120 mm[Hg] Frederick Zapata MD Work Phone: [facility] Encounters Encounter Date Encounter Type Care Provider Facility Start: 05-25-2025 End: 05-25-2025 ambulatory Shaikh Holly CARIAS Work Phone: [facility] Work Phone: Start: 05-25-2025 End: 05-25-2025 Patient encounter procedure Faye Garcia DO -[facility] Work Phone: Start: 04-07-2025 End: 04-16-2025 External Result Encounter Mireya Rojas NP Work Phone: [facility] External Department Unsolicited Start: 04-07-2025 End: 04-16-2025 External Result Encounter Mireya Rojas NP Work Phone: [facility] External Department Unsolicited Start: 03-31-2025 End: 03-31-2025 Bamboo flowsheet Mireya Aichholz MANAGEMENT PROFESSOR [facility] Start: 03-31-2025 End: 03-31-2025 Bamboo flowsheet Mireya Aichholz MANAGEMENT PROFESSOR Work Phone: [facility] Start: 03-31-2025 End: 03-31-2025 Office outpatient visit 25 minutes Mireya Aichsenthilz MANAGEMENT PROFESSOR Work Phone: [facility] Comment on above: Type 2 diabetes talha itus without complication, without long- term current use of insulin (HCC) (Primary Dx); Type 2 diabetes mellitus with diabetic polyneuropathy, without long-term current use of insulin (HCC); Essential hypertension; Chronic lymphocytic leukemia of B-cell type not having achieved remission ([facility]); MVP (mitral valve prolapse); Dizziness and giddiness; Generalized abdominal pain Start: 03-31-2025 End: 03-31-2025 ambulatory MIREYA AICHHOLZ Not Available Start: 03-11-2025 End: 03-11-2025 ambulatory SUNNY CHERY Not Available Start: 03-11-2025 End: 03-11-2025 Bamboo flowsheet Sunny Alt RN [facility] Start: 03-11-2025 End: 03-11-2025 Bamboo flowsheet Sunny Alt RN [facility] Start: 03-04-2025 End: 03-04-2025 ambulatory Rosa Nguyen MA Work Phone: [facility] Start: 02-10-2025 End: 02-10-2025 [facility] Start: 02-10-2025 End: 02-10-2025 Office outpatient visit 15 minutes Todd Vallecillo MD Work Phone: [facility] Comment on above: Shortness of breath (Primary Dx); Mitral valve prolapse; Dizziness; Orthostatic hypotension; Nonrheumatic mitral valve regurgitation; Diabetes mellitus type II, non insulin dependent (Multi); BMI 27.0-27.9,adult; Former smoker Start: 02-01-2025 End: 02-01-2025 Refill Mireya Aichholz MANAGEMENT PROFESSOR Work Phone: [facility] Comment on above: 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 (CMS/HCC); Type 2 diabetes mellitus without complication, without long-term current use of insulin; Hypercholesterolemia (CMS/HCC); Type 2 diabetes mellitus with diabetic polyneuropathy, 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) Start: 01-21-2025 End: 01-21-2025 ambulatory [facility] Start: 12-31-2024 End: 12-31-2024 ambulatory SUNNY CHERY Not Available Start: 12-31-2024 End: 12-31-2024 Bamboo flowsheet Sunny Alt RN [facility] Start: 12-31-2024 End: 12-31-2024 Bamboo flowsheet Sunny Alt RN [facility] Start: 12-30-2024 End: 12-30-2024 Office outpatient visit 15 minutes Mireya Rojas MANAGEMENT PROFESSOR Work Phone: [facility] Comment on above: Type 2 diabetes talha itus without complication, without long- term current use of insulin (Primary Dx); Dizziness and giddiness; Type 2 diabetes mellitus with diabetic polyneuropathy, without long-term current use of insulin ([facility]/HCC); Nonrheumatic mitral valve regurgitation Start: 12-30-2024 End: 12-30-2024 ambulatory MIREYA ROJAS Not Available Start: 12-30-2024 End: 12-30-2024 Bamboo flowsheet Mireya Rojas MANAGEMENT PROFESSOR Work Phone: [facility] Start: 12-30-2024 End: 12-30-2024 Bamboo flowsheet Mireya Rojas MANAGEMENT PROFESSOR Work Phone: [facility] Start: 12-28-2024 End: 12-28-2024 ambulatory [facility] Ambulatory Start: 12-28-2024 End: 12-28-2024 Office consultation new/estab patient 60 min Todd Vallecillo MD Work Phone: [facility] Comment on above: Orthostatic hypotens ion (Primary Dx); Mitral valve prolapse; Shortness of breath; Dizziness; BMI 27.0-27.9,adult; Former smoker; Nonrheumatic mitral valve regurgitation; Diabetes mellitus type II, non insulin dependent (Multi) Start: 12-16-2024 End: 12-16-2024 Orders Only Mireya Rojas MANAGEMENT PROFESSOR Work Phone: [facility] Comment on above: MVP (mitral valve pr olapse) (Primary Dx); Dizziness and giddiness Start: 12-12-2024 End: 12-12-2024 Clinisync Result Encounter Mireya Crystal MANAGEMENT PROFESSOR Work Phone: [facility] External Department Unsolicited Start: 12-12-2024 End: 12-12-2024 Clinisync Result Encounter Mireya Crystal MANAGEMENT PROFESSOR Work Phone: [facility] External Department Unsolicited Start: 11-26-2024 End: 11-26-2024 Bamboo flowsheet Mireya Crystal MANAGEMENT PROFESSOR Work Phone: [facility] Start: 11-26-2024 End: 11-26-2024 Bamboo flowsheet Mireya Maheshhholz MANAGEMENT PROFESSOR Work Phone: [facility] Start: 11-26-2024 End: 11-26-2024 Office outpatient visit 25 minutes Mireya Rojas MANAGEMENT PROFESSOR Work Phone: [facility] Comment on above: Type 2 diabetes talha itus without complication, without long- term current use of insulin ([facility]/HCC) (Primary Dx); Type 2 diabetes mellitus with diabetic polyneuropathy, without long-term current use of insulin ([facility]); Benign essential hypertension (CMS/[facility]); Essential hypertension; Hypercholesterolemia (CMS/HCC); Chronic lymphocytic leukemia (CMS/HCC); Chronic obstructive pulmonary disease, unspecified (CMS/[facility]); Murmur, cardiac; Dizziness and giddiness Start: 11-26-2024 End: 11-26-2024 ambulatory MIREYA AICHHOLZ Not Available Start: 11-12-2024 End: 11-12-2024 ambulatory [...] 10-01-2024 End: 10-01-2024 Bamboo flowsheet Leander Chanel MANAGEMENT PROFESSOR Work Phone: [facility] Start: 10-01-2024 End: 10-01-2024 Bamboo flowsheet Leander Chaveztrick MANAGEMENT PROFESSOR Work Phone: [facility] Start: 09-10-2024 End: 09-10-2024 Bamboo flowsheet Sunny Alt RN [facility] Start: 09-10-2024 End: 09-10-2024 Bamboo flowsheet Sunny Alt RN [facility] Start: 09-10-2024 End: 09-10-2024 ambulatory SUNNY ALT Not Available Start: 09-07-2024 End: 09-07-2024 Refill Leander Meehank MANAGEMENT PROFESSOR Work Phone: [facility] Comment on above: 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 ([facility]) Start: 08-18-2024 End: 08-18-2024 Bamboo flowsheet Leander Chaveztrick MANAGEMENT PROFESSOR Work Phone: [facility] Start: 08-18-2024 End: 08-18-2024 Bamboo flowsheet Leander Chanel MANAGEMENT PROFESSOR Work Phone: [facility] Start: 08-18-2024 End: 08-18-2024 Patient encounter procedure Leander Chanel MANAGEMENT PROFESSOR Work Phone: [facility] Comment on [...] Start: 08-06-2024 End: 08-06-2024 ambulatory FREDERICK ZAPATA Facility:[facility] Start: 08-06-2024 End: 08-07-2024 Clinisync Result Encounter Generic External Data Provider [facility] External Department Unsolicited Start: 08-06-2024 End: 08-07-2024 Clinisync Result Encounter Generic External Data Provider [facility] External Department Unsolicited Start: 08-03-2024 End: 08-03-2024 Refill Leander Chanel MANAGEMENT PROFESSOR Work Phone: [facility] Comment on above: Type 2 diabetes talha itus without complication, without long- term current use of insulin (CMS/[facility]); Hypercholesterolemia (CMS/HCC) Start: 07-22-2024 End: 07-22-2024 Refill Leander Chanel MANAGEMENT PROFESSOR Work Phone: [facility] Comment on above: Type 2 diabetes talha itus without complication, without long- term current use of insulin (CMS/HCC) Start: 07-08-2024 End: 07-08-2024 Orders Only Leander Chanel MANAGEMENT PROFESSOR Work Phone: [facility] Comment on above: 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 (CMS/HCC) Start: 07-01-2024 End: 07-01-2024 Office outpatient visit 15 minutes Leander Chanel MANAGEMENT PROFESSOR Work Phone: [facility] Comment on above: 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, 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) (Primary Dx); 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; 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); Essential hypertension; Atherosclerosis of aorta (CMS/HCC) Start: 07-01-2024 End: 07-01-2024 ambulatory LEANDER CHANEL Not Available Start: 07-01-2024 End: 07-01-2024 Bamboo flowsheet Leander Chanel MANAGEMENT PROFESSOR Work Phone: [facility] Start: 07-01-2024 End: 07-01-2024 Bamboo flowsheet Leander Chanel MANAGEMENT PROFESSOR Work Phone: [facility] Start: 06-23-2024 End: 06-23-2024 Orders Only Leander Howezpatrick MANAGEMENT PROFESSOR Work Phone: [facility] Start: 06-22-2024 End: 06-23-2024 Refill Leander Howezpatrick MANAGEMENT PROFESSOR Work Phone: [facility] Comment on above: 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 (CMS/HCC) Start: 04-30-2024 End: 04-30-2024 Refill Rosa Nguyen MA [facility] Comment on above: Hypercholesterolemia (CMS/HCC) Start: 04-23-2024 End: 04-23-2024 Refill Leander Chanel MANAGEMENT PROFESSOR Work Phone: [facility] Comment on above: Type 2 diabetes talha itus without complication, without long- term current use of insulin (CMS/HCC) (Primary Dx) Start: 08-20-2023 Patient encounter procedure Saurabh Chanel MANAGEMENT PROFESSOR Work Phone: [facility] Start: 08-08-2023 End: 08-08-2023 Office outpatient visit 25 minutes Frederick Zapata MD Work Phone: Hematology/Oncology Comment on above: Chronic lymphocytic leukemia (HCC) (Primary Dx) Start: 06-14-2023 (URG) Urgent Care Visit Annmarie booker [facility] Start: 06-14-2023 End: 06-14-2023 ambulatory Annmarie Mcgee Other [employer] Other Start: 12-03-2022 Orders Only Joshua LIZARRAGA-Rocío Work Phone: Appointment Center Comment on above: Pain (Primary Dx) Start: 09-17-2022 End: 09-17-2022 ambulatory Annmarie Mcgee Other [employer] Other Start: 09-17-2022 Office outpatient ne w 20 minutes Annmarie Mcgee [facility] Start: 07-31-2022 End: 08-01-2022 ambulatory EDUCATIONAL DIRECTOR MIREYA CRYSTAL Facility:[facility] Start: 07-23-2022 End: 07-24-2022 ambulatory EDUCATIONAL DIRECTOR MIREYA CRYSTAL Facility:[facility] Start: 05-08-2022 End: 05-08-2022 ambulatory Lugo Fawwad Facility:[facility] Start: 05-08-2022 End: 05-08-2022 Patient encounter procedure MD Shaikh Barrera Work Phone: [facility] [place] Start: 01-03-2022 End: 01-04-2022 ambulatory SHAIKH Carlotta BARRERA Facility: Start: 01-01-2022 End: 01-01-2022 ambulatory Frederick Zapata MD Work Phone: Hematology/Oncology Comment on above: Chronic lymphocytic leukemia (HCC) (Primary Dx) Start: 01-01-2022 End: 01-01-2022 Patient encounter procedure Frederick Zapata MD Work Phone: [facility] Start: 08-11-2021 End: 08-31-2021 Evaluation and management of inpatient LUGO NAM Facility:[facility] Start: 10-27-2020 End: 11-09-2020 Evaluation and management of inpatient REBECCALISETTE FARRIS Facility:[facility] Procedures Date Procedure Procedure Detail Performing Clinician Start: 04-07-2025 Blood occult peroxid ase actv qual feces 1 deter Mireya Crystal MANAGEMENT PROFESSOR Work Phone: Start: 03-31-2025 Hemoglobin glycosylated a1c Mireya Maheshcarlottajen MANAGEMENT PROFESSOR Work Phone: Start: 12-29-2024 Lipid 1996 panel - S bayron or Plasma Todd Vallecillo MD Work Phone: Start: 12-28-2024 Ecg routine ecg w/le ast 12 lds w/i&r Todd Vallecillo MD Work Phone: Start: 12-12-2024 CA ECHO DOPPLER COMPLETE Mireya Crystal MANAGEMENT PROFESSOR Work Phone: Start: 11-26-2024 Hemoglobin glycosylated a1c Mireya Crystal MANAGEMENT PROFESSOR Work Phone: Start: 08-06-2024 [facility] CBC W AUTO DIFF BLD Generic External Data Provider Start: 08-05-2023 End: 08-20-2023 H/O: colostomy Colostomy status Leander Howezpatrick MANAGEMENT PROFESSOR Work Phone: Start: 07-23-2022 PSA screening EDUCATIONAL DIRECTOR MIREYA CRYSTAL Comment on above: Performed By: #### P [facility] #### [facility] [address] [place] [address] Dr. Estrada Carpenter Start: 05-08-2022 Echography of scrotu m and contents MD Shaikh Barrera Work Phone: Start: 05-08-2022 Ultrasonography of abdomen MD Shaikh Barrera Work Phone: Start: 11-02-2020 DRAINAGE OF STOMACH WITH DRAINAGE DEVICE, VIA OPENING ZAHRAA DARBY Start: 10-30-2020 Bypass Descending Co jasmyne to Cutaneous, Open Approach ZAHRAA DARBY Start: 10-30-2020 Resection of Sigmoid Colon, Open Approach JEREDIN DARBY Start: 10-27-2020 Antibody screen REBECCA FARRIS Comment on above: Performed By: #### [id number] ####[facility] Plan of Treatment Date Care Activity Detail Author Start: 12-14-2032 DTaP/Tdap/Td Vaccines (2 - Td or Tdap) DTaP/Tdap/Td Vaccines (2 - Td or Tdap) [facility] Start: 12-14-2032 Urine microalbumin profile DTaP,Tdap,Td Vaccine (2 - Td or Tdap) [facility] Start: 08-06-2027 Diabetes Screening Diabetes Screening [facility] Start: 03-24-2027 Glaucoma screening Diabetes: Retinopathy Screening [facility] Start: 08-08-2026 Diabetes Screening Diabetes Screening [facility] Start: 03-23-2026 Glaucoma screening Diabetes: Retinopathy Screening [facility] Start: 12-29-2025 Lipid panel Lipid Panel [facility] Start: 12-29-2025 Urine screening for protein Diabetes: Urine Protein Screening [facility] Start: 10-01-2025 Hemoglobin A1c measurement Diabetes: Hemoglobin A1C [facility] Start: 09-28-2025 End: 09-28-2025 Patient encounter procedure 09/28/2025 1:40 PM EST Office Visit [facility] [address] [facility] [address] [place] [id number] Todd Vallecillo MD [address] [facility] [address] [place] [address] [facility] Start: 08-18-2025 Medicare Annual Wellness (AWV) Medicare Annual Wellness (AWV) [facility] Start: 08-06-2025 End: 08-06-2025 CBC W Auto Differential panel - Blood COMPLETE BLOOD COUNT AND DIFFERENTIAL Lab Routine Chronic lymphocytic leukemia (HCC) Expected: 08/06/2025 (Approximate), Expires: 08/06/2025 [facility] Comment on above: Expected: 08/06/2025 (Approximate), Expi res: 08/06/2025 Start: 08-06-2025 End: 08-06-2025 Comprehensive metabolic 2000 panel - Serum or Plasma COMPREHENSIVE METABOLIC PANEL Lab Routine Chronic lymphocytic leukemia (HCC) Expected: 08/06/2025 (Approximate), Expires: 08/06/2025 [facility] Comment on above: Expected: 08/06/2025 (Approximate), Expi res: 08/06/2025 Start: 08-06-2025 End: 08-06-2025 Lactate dehydrogenase [Enzymatic activity/volume] in Serum or Plasma LACTATE DEHYDROGENASE Lab Routine Chronic lymphocytic leukemia (HCC) Expected: 08/06/2025 (Approximate), Expires: 08/06/2025 [facility] Work Phone: Comment on above: Expected: 08/06/2025 (Approximate), Expi res: 08/06/2025 Start: 08-05-2025 End: 08-05-2025 Follow-up encounter 08/05/2025 2:20 PM EST Visit (SP) Office Hematology/Oncology [address] [place] [address] [place] [address] Frederick Zapata MD [address] [facility] [place] [address] 1 year follow up Hematology/Oncolog y Comment on above: 1 year follow up Start: 08-05-2025 End: 08-05-2025 Patient encounter procedure 08/05/2025 2:00 PM EST Office Visit [facility] [address] [place] [address] [place] [address] 1 year follow up [facility] Comment on above: 1 year follow up Start: 07-01-2025 End: 07-01-2025 Patient encounter procedure 07/01/2025 1:20 PM EDT Office Visit [facility] [address] [place] [address] Mireya Rojas NP [address] [place] [id number] [facility] Start: 05-29-2025 Hemoglobin A1c measurement Diabetes: Hemoglobin A1C [facility] Start: 05-25-2025 Patient referral [facility] Work Phone: Start: 05-03-2025 Influenza vaccination Influenza Vaccine (#1) [facility] Start: 03-31-2025 End: 03-31-2026 CBC W Auto Differential panel - Blood CBC and differential Lab Routine Generalized abdominal pain Expected: 03/31/2025 (Approximate), Expires: 03/31/2026 [facility] Comment on above: Expected: 03/31/2025 (Approximate), Expi res: 03/31/2026 Start: 03-31-2025 End: 03-31-2026 Comprehensive metabolic 2000 panel - Serum or Plasma Comprehensive metabolic panel Lab Routine Generalized abdominal pain Expected: 03/31/2025 (Approximate), Expires: 03/31/2026 [facility] Comment on above: Expected: 03/31/2025 (Approximate), Expi res: 03/31/2026 Start: 03-31-2025 End: 03-31-2026 Hemoglobin.gastrointest inal.lower [Presence] in Stool by Immunoassay Occult blood x 1, stool Lab Routine Generalized abdominal pain Expected: 03/31/2025 (Approximate), Expires: 03/31/2026 [facility] Work Phone: Comment on above: Expected: 03/31/2025 (Approximate), Expi res: 03/31/2026 Start: 03-31-2025 End: 03-31-2025 Patient encounter procedure [facility] Comment on above: Type 2 diabetes mellitus with diabetic p olyneuropathy, without long-term current use of insulin (HCC) (Primary Dx); Essential hypertension; Type 2 diabetes mellitus without complication, without long-term current use of insulin (HCC); Chronic lymphocytic leukemia of B-cell type not having achieved remission ([facility]); MVP (mitral valve prolapse); Dizziness and giddiness Start: 03-26-2025 Urine screening for protein Diabetes: Urine Protein Screening [facility] Start: 03-11-2025 End: 03-11-2025 Clinical Support 03/11/2025 2:30 PM EDT Clinical Support [facility] [place] [address] [place] [address] Sunny Chery, PATTY [facility] Start: 03-04-2025 End: 03-04-2025 Clinical Support 03/04/2025 2:30 PM EDT [facility] [place] [address] Sunny Chery, PATTY [facility] Start: 02-11-2025 Hemoglobin A1c measurement Diabetes: Hemoglobin A1C [facility] Start: 01-21-2025 End: 01-21-2025 Patient encounter procedure 01/21/2025 2:15 PM EDT Appointment [facility] [id number] [place] [address] [facility] Start: 01-21-2025 End: 01-21-2025 Patient encounter procedure [facility] Start: 01-01-2025 DIABETES SCREEN DIABETES SCREEN [facility] Start: 12-31-2024 End: 12-31-2024 [facility] Comment on above: Ar[facility] Start: 12-30-2024 End: 12-30-2024 Patient encounter procedure [facility] Comment on above: Dizziness and giddiness (Primary Dx); Type 2 diabetes mellitus with diabetic polyneuropathy, 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); Nonrheumatic mitral valve regurgitation Start: 12-28-2024 End: 12-28-2026 NM Heart Perfusion W stress and W radionuclide IV Nuclear Stress Test Cardiac Nuclear Medicine Routine Shortness of breath Expected: 12/28/2024 (Approximate), Expires: 12/28/2026 [facility] Service Area Work Phone: Comment on above: Expected: 12/28/2024 (Approximate), Expi res: 12/28/2026 Start: 11-26-2024 End: 11-26-2025 Basic metabolic 1998 panel - Serum or Plasma Basic metabolic panel Lab Routine Type 2 diabetes mellitus with diabetic polyneuropathy, 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) Essential hypertension Expected: 11/26/2024 (Approximate), Expires: 11/26/2025 [facility] Comment on above: Expected: 11/26/2024 (Approximate), Expi res: 11/26/2025 Start: 11-26-2024 End: 11-26-2026 Echocardiogram 2D complete Echocardiogram 2D complete Echocardiography High Priority Essential hypertension Murmur, cardiac Dizziness and giddiness Expected: 11/26/2024 (Approximate), Expires: 11/26/2026 [facility] Comment on above: Expected: 11/26/2024 (Approximate), Expi res: 11/26/2026 Start: 11-26-2024 End: 11-26-2025 Hepatic function 2000 panel - Serum or Plasma Hepatic function panel Lab Routine Hypercholesterolemia (CMS/HCC) Expected: 11/26/2024 (Approximate), Expires: 11/26/2025 [facility] Comment on above: Expected: 11/26/2024 (Approximate), Expi res: 11/26/2025 Start: 11-26-2024 End: 11-26-2025 Lipid 1996 panel - Serum or Plasma Lipid panel Lab Routine Hypercholesterolemia (CMS/HCC) Expected: 11/26/2024 (Approximate), Expires: 11/26/2025 [facility] Comment on above: Expected: 11/26/2024 (Approximate), Expi res: 11/26/2025 Start: 11-26-2024 End: 11-26-2025 Microalbumin/Creatinine panel in random Urine Microalbumin / creatinine, urine ratio Lab Routine Type 2 diabetes mellitus with diabetic polyneuropathy, without long-term current use of insulin ([facility]/HCC) Essential hypertension Expected: 11/26/2024 (Approximate), Expires: 11/26/2025 [facility] Work Phone: Comment on above: Expected: 11/26/2024 (Approximate), Expi res: 11/26/2025 Start: 11-26-2024 End: 11-26-2024 Patient encounter procedure [facility] Comment on above: Type 2 diabetes mellitus with diabetic p olyneuropathy, 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) (Primary Dx); Benign essential hypertension (CMS/HCC); Essential hypertension; Hypercholesterolemia (CMS/HCC); Chronic lymphocytic leukemia (CMS/HCC); Chronic obstructive pulmonary disease, unspecified (CMS/HCC) Start: 11-26-2024 End: 11-26-2025 Urinalysis complete panel - Urine Urinalysis with reflex microscopic (clean catch) Lab Routine Type 2 diabetes mellitus with diabetic polyneuropathy, 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) Essential hypertension Expected: 11/26/2024 (Approximate), Expires: 11/26/2025 [facility] Comment on above: Expected: 11/26/2024 (Approximate), Expi res: 11/26/2025 Start: 10-08-2024 End: 10-08-2024 Clinical Support [facility] Comment on above: Arrived Start: 10-01-2024 End: 10-01-2024 Patient encounter procedure [facility] Comment on above: Arrived Start: 09-26-2024 Hemoglobin A1c measurement Diabetes: Hemoglobin A1C [facility] Start: 09-10-2024 End: 09-10-2024 Clinical Support 09/10/2024 1:00 PM EST Clinical Support [facility] [address] [place] [address] Sunny Chery RN [facility] Start: 08-24-2024 End: 08-24-2024 Patient encounter procedure 08/24/2024 1:00 PM EST Office Visit [facility] [address] [place] [address] Shaikh Barrera MD [address] [place] [address] [facility] Start: 08-20-2024 Medicare Annual Wellness (AWV) Medicare Annual Wellness (AWV) [facility] Start: 08-20-2024 End: 08-20-2024 Patient encounter procedure 08/20/2024 1:30 PM EST Office Visit [facility] [address] [place] [address] Leander Chanel NP [address] [place] [address] [facility] Start: 08-18-2024 End: 08-18-2024 Patient encounter procedure [facility] Comment on above: Arrived Start: 07-08-2024 End: 07-08-2024 Clinical Support 07/08/2024 2:30 PM EST Clinical Support [facility] [address] [place] [address] [facility] Start: 07-01-2024 End: 07-01-2024 Patient encounter procedure [facility] Comment on above: Arrived Start: 07-01-2024 End: 07-01-2025 Hemoglobin A1c/Hemoglobin.total in Blood Hemoglobin A1c Lab Routine Type 2 diabetes mellitus with diabetic polyneuropathy, without long-term current use of insulin ([facility]) Expected: 07/01/2024 (Approximate), Expires: 07/01/2025 [facility] Work Phone: Comment on above: Expected: 07/01/2024 (Approximate), Expi res: 07/01/2025 Start: 05-03-2024 Covid-19 Vaccine ( season) Covid-19 Vaccine ( season) [facility] Start: 05-03-2024 Influenza vaccination Influenza Vaccine (#1) [facility] Start: 04-24-2024 Urine screening for protein Diabetes: Urine Protein Screening [facility] Start: 09-02-2023 Advance Directive Discussion Advance Directive Discussion [facility] Start: 05-03-2023 Covid-19 Vaccine ( season) Covid-19 Vaccine ( season) [facility] Start: 05-03-2023 Influenza vaccination INFLUENZA (Season Ended) [facility] Start: 01-01-2023 End: 01-01-2023 CBC W Auto Differential panel - Blood CBC + DIFF Lab Routine Chronic lymphocytic leukemia (HCC) Expected: 01/01/2023 (Approximate), Expires: 01/01/2023 [facility] Work Phone: Comment on above: Expected: 01/01/2023 (Approximate), Expi res: 01/01/2023 Start: 01-01-2023 End: 01-01-2023 Comprehensive metabolic 2000 panel - Serum or Plasma COMP METABOLIC PANEL Lab Routine Chronic lymphocytic leukemia (HCC) Expected: 01/01/2023 (Approximate), Expires: 01/01/2023 [facility] Work Phone: Comment on above: Expected: 01/01/2023 (Approximate), Expi res: 01/01/2023 Start: 01-01-2023 End: 01-01-2023 Lactate dehydrogenase [Enzymatic activity/volume] in Serum or Plasma LD LACTATE DEHYDRO Lab Routine Chronic lymphocytic leukemia (HCC) Expected: 01/01/2023 (Approximate), Expires: 01/01/2023 [facility] Work Phone: Comment on above: Expected: 01/01/2023 (Approximate), Expi res: 01/01/2023 Start: 09-02-2022 ADVANCE DIRECTIVE DISCUSSION ADVANCE DIRECTIVE DISCUSSION [facility] Start: 09-02-2022 DEPRESSION ASSESSMENT DEPRESSION ASSESSMENT [facility] Start: 08-15-2022 COVID-19 Vaccine (2 - Pfizer risk series) COVID-19 Vaccine (2 - Pfizer risk series) [facility] Start: 12-12-2021 COVID-19 VACCINE (4 - Booster for Pfizer series) COVID-19 VACCINE (4 - Booster for Pfizer series) [facility] Start: 11-08-2021 COVID-19 VACCINE (4 - Booster for Pfizer series) COVID-19 VACCINE (4 - Booster for Pfizer series) [facility] Start: 09-02-2021 ADVANCE DIRECTIVE DISCUSSION ADVANCE DIRECTIVE DISCUSSION [facility] Start: 11-25-2019 Urine screening for protein Diabetes: Urine Protein Screening [facility] Start: 2013 RSV High Risk: (Elderly (60+) or Population) (1 - 1-dose 75+ series) RSV High Risk: (Elderly (60+) or Population) (1 - 1-dose 75+ series) [facility] Start: 2013 RSV Vaccine (1 - 1-dose 75+ series) RSV Vaccine (1 - 1-dose 75+ series) [facility] Start: 1998 RSV Vaccine (1 - 1-dose 60+ series) RSV Vaccine (1 - 1-dose 60+ series) [facility] Start: 02-05-1988 SHINGRIX VACCINE (1 of 2) SHINGRIX VACCINE (1 of 2) [facility] Start: 1957 SHINGRIX VACCINE (1 of 2) SHINGRIX VACCINE (1 of 2) [facility] Start: 1957 Urine microalbumin profile DTAP,TDAP,TD (1 - Tdap) [facility] Start: 1957 Zoster Vaccines (1 of 2) Zoster Vaccines (1 of 2) [facility] Start: 02-05-1956 Anxiety Screening Anxiety Screening [facility] Start: 02-05-1956 Depression Screening Depression Screening [facility] Start: 02-05-1948 Glaucoma screening Diabetes: Retinopathy Screening [facility] Start: 1938 Annual wellness visit Welcome to Medicare Visit [facility] Start: 1938 Hemoglobin A1c measurement Diabetes: Hemoglobin A1C [facility] Start: 1938 Lipid panel Lipid Panel [facility] End: 08-07-2024 CBC W Auto Differential panel - Blood CBC + DIFF Lab Routine Chronic lymphocytic leukemia (HCC) Every 6 months for 3 Occurrences starting 08/08/2023 until 08/07/2024, 1 completed [facility] Work Phone: Comment on above: Every 6 months for 3 Occurrences startin g 08/08/2023 until 08/07/2024, 1 completed CBC W Auto Different ial panel - Blood CBC + DIFF Lab Routine Chronic lymphocytic leukemia (HCC) 08/08/2023 3:21 PM EST [facility] Work Phone: End: 08-07-2024 Comprehensive metabolic 2000 panel - Serum or Plasma COMP METABOLIC PANEL Lab Routine Chronic lymphocytic leukemia (HCC) Every 6 months for 3 Occurrences starting 08/08/2023 until 08/07/2024, 1 completed [facility] Work Phone: Comment on above: Every 6 months for 3 Occurrences startin g 08/08/2023 until 08/07/2024, 1 completed End: 08-07-2024 Lactate dehydrogenase [Enzymatic activity/volume] in Serum or Plasma LD LACTATE DEHYDRO Lab Routine Chronic lymphocytic leukemia (HCC) Every 6 months for 3 Occurrences starting 08/08/2023 until 08/07/2024, 1 completed [facility] Work Phone: Comment on above: Every 6 months for 3 Occurrences startin g 08/08/2023 until 08/07/2024, 1 completed Patient referral [facility] Work Phone: End: 08-07-2024 Urate [Mass/volume] in Serum or Plasma URIC ACID BLOOD Lab Routine Chronic lymphocytic leukemia (HCC) Every 6 months for 3 Occurrences starting 08/08/2023 until 08/07/2024, 1 completed [facility] Work Phone: Comment on above: Every 6 months for 3 Occurrences startin g 08/08/2023 until 08/07/2024, 1 completed End: 01-02-2024 XR HAND GENERAL 3V PA/LAT/OBL LEFT XR HAND GENERAL 3V PA/LAT/OBL LEFT Radiology Routine Pain 1 Occurrences starting 12/03/2022 until 01/02/2024 [facility] Work Phone: Comment on above: 1 Occurrences starting 12/03/2022 until 01/02/2024 End: 01-02-2024 XR HAND GENERAL 3V PA/LAT/OBL RIGHT XR HAND GENERAL 3V PA/LAT/OBL RIGHT Radiology Routine Pain 1 Occurrences starting 12/03/2022 until 01/02/2024 [facility] Work Phone: Comment on above: 1 Occurrences starting 12/03/2022 until 01/02/2024 [facility] Immunizations Immunization Date Immunization Notes Care Provider Pollo burdick 06-23-2024 influenza, high dose seasonal, preservative-free Mireya Rojas MANAGEMENT PROFESSOR Work Phone: [facility] 06-23-2024 influenza virus vaccine, unspecified formulation Leander Chanel MANAGEMENT PROFESSOR Work Phone: [facility] 07-03-2023 Influenza, High-dose Seasonal, Quadrivalent, Preservative Free Leander Chanel MANAGEMENT PROFESSOR Work Phone: [facility] 07-03-2023 influenza virus vaccine, unspecified formulation Leander Chanel MANAGEMENT PROFESSOR Work Phone: [facility] 12-26-2022 tuberculin skin test ; purified protein derivative solution, intradermal Leander Chanel MANAGEMENT PROFESSOR Work Phone: [facility] 12-19-2022 tuberculin skin test ; purified protein derivative solution, intradermal Leander Chanel MANAGEMENT PROFESSOR Work Phone: [facility] 12-14-2022 tetanus toxoid, redu kayley diphtheria toxoid, and acellular pertussis vaccine, adsorbed Leander Chanel MANAGEMENT PROFESSOR Work Phone: [facility] 07-25-2022 Influenza, High-dose Seasonal, Quadrivalent, Preservative Free Leander Chanel MANAGEMENT PROFESSOR Work Phone: [facility] 07-25-2022 Pfizer COVID-19 vaccine, bivalent, age 12 years and older (30 mcg/0.3 mL) Todd Vallecillo MD Work Phone: [facility] 09-13-2021 COVID-19 mRNA, Comirnaty (Pfizer) Shaikh Holly CARIAS Work Phone: [facility] 05-18-2021 Influenza, High-dose Seasonal, Quadrivalent, Preservative Free Leander Chanel MANAGEMENT PROFESSOR Work Phone: [facility] 09-22-2020 COVID-19 vaccine, ag e 12+ yr (PFIZER-BIONTECH - PURPLE TOP) Frederick Zapata MD Work Phone: [facility] 09-01-2020 COVID-19 vaccine, ag e 12+ yr (PFIZER-BIONTECH - PURPLE TOP) Frederick Zapata MD Work Phone: [facility] 05-14-2020 influenza, injectabl e, quadrivalent, preservative free Frederick Zapata MD Work Phone: [facility] 06-29-2019 Seasonal trivalent influenza vaccine, adjuvanted, preservative free Frederick Zapata MD Work Phone: [facility] 06-18-2018 influenza, high dose seasonal, preservative-free Frederick Zapata MD Work Phone: [facility] 06-03-2017 influenza, injectabl e, quadrivalent, contains preservative Frederick Zapata MD Work Phone: [facility] 04-27-2017 influenza, high dose seasonal, preservative-free Frederick Zapata MD Work Phone: [facility] 04-27-2017 pneumococcal polysaccharide vaccine, 23 valent Frederick Zapata MD Work Phone: [facility] 10-23-2016 pneumococcal polysaccharide vaccine, 23 valent Frederick Zapata MD Work Phone: [facility] 06-22-2015 pneumococcal conjuga te vaccine, 13 valjonathan Zapata MD Work Phone: [facility] 06-21-2015 seasonal influenza, intradermal, preservative free Leander Chanel NP Work Phone: [facility] 06-05-2013 influenza virus vaccine, whole virus Frederick Zapata MD Work Phone: [facility] 06-18-2012 influenza virus vaccine, whole virus Frederick Zapata MD Work Phone: [facility] 06-04-2011 influenza virus vaccine, whole virus Frederick Zapata MD Work Phone: [facility] 06-21-2010 influenza virus vaccine, whole virus Frederick Zapata MD Work Phone: [facility] 06-22-2009 influenza virus vaccine, whole virus Frederick Zapata MD Work Phone: [facility] Payers Date Payer Category Payer Private Health Insurance [facility] [id number] 2024 Medicare [id number] 2023 Medicare [id number] 20[facility]-Present [phone] [address] [place] [id number] HMO [id number] 2023 Medicare (Managed Care) 1.2. [id number] 2023 Unknown [id number] 2022 Unknown [id number] [id number]. [id number] 2022 Self-pay [id number] 2019 Unknown ANTHEM BLUE CROS S AND BLUE SHIELD ANTHEM MEDIBLUE ACCESS [id number] 2019-Present [phone] [address] [place] [address] PPO [id number] [id number] 1959 Unknown [id number] 1938 Unknown [id number] 2.16840.1.056423.3.579. 2.647 1938 Unknown [id number] 2.16.840.1.698624.3.579. 2.647 1938 Unknown [id number] 2.16.840.1.157084.3.579. 2.593 1938 Unknown [id number] 2.16.840.1.867970.3.579. 2.593 1938 Unknown [id number] 2.16.840.1.979280.3.579. 2.593 1938 Unknown [id number] 2.16.840.1.682896.3.579. 2.1245 1938 Unknown [id number] 2.16.840.1.372194.3.579. 2.1245 1938 Unknown [id number] 2.16.840.1.352171.3.579. 2.1245 1938 Unknown [id number] 2.16.840.1.015000.3.579. 2.1245 1938 Unknown [id number] 2.16.840.1.106358.3.579. 2.1245 1938 Unknown [id number] 2.16.840.1.007304.3.579. 2.1243 1938 Unknown [id number] 2.16.840.1.626426.3.579. 2.1243 1938 Unknown [id number] 2.16.840.1.329412.3.579. 2.1258 1938 Unknown [id number] 2.16.840.1.964610.3.579. 2.1258 1938 Unknown [id number] 2.16.840.1.683514.3.579. 2.1258 1938 Unknown [id number] 2.16.840.1.957158.3.579. 2.1258 1938 Unknown [id number] 2.16.840.1.845707.3.579. 2.1258 1938 Unknown [id number] 2.16.840.1.686049.3.579. 2.1258 1938 Unknown [id number] 2.16.840.1.131912.3.579. 2.1258 1938 Unknown [id number] 2.16.840.1.067109.3.579. 2.1258 1938 Unknown [id number] 2.16.840.1.712126.3.579. 2.1259 1938 Unknown [id number] 2.16.840.1.583543.3.579. 2.1259 1938 Unknown [id number] 2.16.840.1.556351.3.579. 2.1259 Medicare [id number] 2.16.840.1.278754.19 Unknown HCAP/HFA/FAP Active [id number] Unknown [id number] 2.16.840.1.592994.3.579. 2.531 Social History Date Type Detail Facility Start: 05-15-2013 End: 12-28-2024 Tobacco smoking status CAIS Ex-smoker [facility] Start: 09-02-1951 End: 09-02-1989 History of tobacco use Current smoker [facility] Start: 09-02-1951 End: 09-02-1989 History of tobacco use Cigarette Smoker [facility] Start: 01-01-2022 End: 08-06-2024 Alcohol intake Current non-drinker of alcohol (finding) [facility] Start: 1940 Sex Assigned At Not on file C [facility] Start: 12-22-2021 End: 02-10-2025 Exposure to SARS-CoV-2 (event) Not sure [facility] Start: 1940 [facility] Assigned At [facility] [facility] Start: 08-08-2023 End: 01-07-2024 Sex Assigned At [facility] Start: 05-15-2013 End: 01-07-2024 Cigarettes smoked current (pack per day) - Reported 1 [facility] Start: 05-15-2013 End: 11-12-2023 Tobacco use and exposure Smokeless tobacco non-user [facility] Adult Depression Screening Assessment 0 [facility] Start: 06-13-2018 End: 11-12-2023 Tobacco smoking status CAIS Never smoked tobacco [facility] Start: 04-01-2024 End: 03-31-2025 Alcoholic beverage intake Lifetime non-drinker (finding) [facility] Within the last year , have you been afraid of your partner or ex-partner? No [facility] Do you belong to any clubs or organizations such as buddhism groups, unions, fraternal or athletic groups, or [...] [facility] Start: 01-01-2025 Sexual orientation Heterosexual (josias jay) [facility] Sex Male (finding) [facility] NEGATED: Highlighted rowStart: MICHELLE History of tobacco use Passive smoker [facility] Medical Equipment Procedure Code Equipment Code Equipment Origin al Text Equipment Identifier Dates [id number] Start: 02-10-2024 End: 12-30-2024 Clinical Notes 11-10-2020 to 05-25-2025 Mireya Rojas NP - 03/31/2025 2:48 PM Nancy Rojas NP - 03/31/2025 2:47 PM EDALEX LOPEZ - 03/31/2025 2:00 PM Nancy Rojas NP - 03/31/2025 2:00 PM EDTPatient InstructionsAttachments Note Date & Type Note Facility 05-25-2025 Hospital Discharge instructions Ambulatory OrdersReferral to Pain Management Time Frame: 05/25/25, Location: None Selected [facility] Work Phone: 03-31-2025 History of Present illness Narrative Associated Problem(s): 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 Eitan Hurtaod is a 85 y.o. male presents with [...] 2 times daily before meals glucose blood ([employer] Ultra Test) test strip Twice a day. [...] of anterolateral wall, initial episode of care ([facility]) Alzheimer's dementia without behavioral disturbance ([facility]) Appendicitis Arthritis Central hearing loss Chronic airway obstruction ([facility]) Chronic lymphoid leukemia, without mention of having achieved remission(204.10) ([facility]) COPD (chronic obstructive pulmonary disease) ([facility]) Coronary atherosclerosis Diabetes ([facility]) Dupuytren's contracture of both hands Endolymphatic hydrops, bilateral Essential hypertension, benign Heart murmur History of being hospitalized 2014 small bowel obstruction History of blood clots Hx of being hospitalized 10/27/2020 Perforated Diverticulitis Hx of being hospitalized 04/07/2021 Colitis, Sepsis Hypercholesterolemia Hypertension Kidney disease Left shoulder pain Leukemia ([facility]) ESCL Leukocytosis Meniere disease Mitral valve disorder Nephrolithiasis Osteoarthrosis Painful diabetic neuropathy ([facility]) Personal history of colonic polyps Pure hypercholesterolemia [...] under good control documented in this encounter [facility] 03-31-2025 Instructions Mireya Rojas NP - 03/31/2025 2:00 PM EDT Check blood work and stool for blood documented in this encounter [facility] 03-04-2025 History of Present illness Narrative Pt into office stating he only has four pills left of Januvia. Actuarial Consultant attempted to contact [facility] for refill but they are closed already for the holiday weekend. I did call twice to confirm the recording, Pt did not call them last month for refill when it should have been filled. So television script writer reminded pt that when he gets down to 14 pills, to call me, and I will call [facility] and request the refill for him. I checked for samples and we do not have any in the office. I spoke with Dr Beyer and he will send in a 10 day supply for him to [facility]. And I will reach back out to [facility] on Saturday to get Januvia taken care of. Pt was informed and he voiced understanding. He did repeat back to me correctly when to call me regarding his Januvia medication refill. I also gave him his next appt information with PCP on 03/31 at 1400. Pt stated he did write it down so he won't forget. Sent. documented in this encounter [facility] 02-10-2025 History of Present illness Narrative Chief [...] Attestation By signing my name below, I, Bety Willis LPN attest that this documentation has been prepared [...] discussion and plan. documented in this encounter [facility] Work Phone: 02-10-2025 Instructions Alana Mcdaniel [...] be sent through Care Everywhere.Heart Healthy Diet (Danish)documented in this encounter [facility] Work Phone: 12-30-2024 History of Present [...] be in range) He states he see religious educator soon Images from the original note [...] being taken. He does not see a commercial photographer.Eye exam is current. SUBJECTIVE: MEDICATIONS: Current Outpatient Medications Medication Instructions folic acid (Folvite) 1 MG tablet gabapentin (NEURONTIN) 300 mg, Oral, 3 times daily glipiZIDE (GLUCOTROL) 10 mg, Oral, 2 times daily before meals glucose blood ([employer] Ultra Test) test strip Twice a day. [...] of anterolateral wall, initial episode of care ([facility]) Alzheimer's dementia without behavioral disturbance ([facility]) Appendicitis Arthritis Central hearing loss Chronic airway obstruction ([facility]) Chronic lymphoid leukemia, without mention of having achieved remission(204.10) ([facility]) COPD (chronic obstructive pulmonary disease) ([facility]) Coronary atherosclerosis ([facility]) Diabetes ([facility]) Dupuytren's contracture of both hands Endolymphatic hydrops, bilateral Essential hypertension, benign ([facility]) Heart murmur History of being hospitalized 2014 small bowel obstruction History of blood clots Hx of being hospitalized 10/27/2020 Perforated Diverticulitis Hx of being hospitalized 04/07/2021 Colitis, Sepsis Hypercholesterolemia ([facility]) Hypertension ([facility]) Kidney disease Left shoulder pain Leukemia ([facility]) ESCL Leukocytosis Meniere disease Mitral valve disorder Nephrolithiasis Osteoarthrosis Painful diabetic neuropathy ([facility]) Personal history of colonic polyps Pure hypercholesterolemia ([facility]) Sleep disorder Type 2 diabetes mellitus treated without insulin ([facility]) Uric acid nephrolithiasis Past Surgical History: Procedure Laterality Date APPENDECTOMY CATARACT EXTRACTION Bilateral 2014 CHOLECYSTECTOMY COLECTOMY reverse HERNIA REPAIR LITHOTRIPSY OTHER SURGICAL HISTORY Bilateral Bilat intratympanic steroid injections:Bilat endolymphatic hydrops OTHER SURGICAL HISTORY 1979 vein stripping OTHER SURGICAL HISTORY Left 2017 CT release w/decompression, left guyons canal release, [...] polyneuropathy, without long-term current use of insulin ([facility]) Recommend freq foot check, comfortable shoes, as [...] polyneuropathy, without long-term current use of insulin ([facility]) Recommend freq foot check, comfortable shoes, as well as keeping glucose under good control Associated Problem(s): Dizziness and giddiness Did see cardiology , see their notes documented in this encounter [facility] 12-30-2024 Instructions Mireya Rojas NP - 12/30/2024 2:40 PM EDT No dose changes in meds Keep up the great work with diabetes Follow up with cardiology Consider going back to pain manaegment documented in this encounter [facility] 12-28-2024 History of Present illness Narrative Cardiology [...] closure; Skin cancer excision; Cataract extraction, bilateral; White tooth extraction; and Carpal tunnel release (Bilateral). [...] Scribe Attestation By signing my name below, IJusta LPN, Scribe attest that this documentation has [...] Father Diabetes Brother documented in this encounter [facility] Work Phone: 12-28-2024 Instructions [place] [...] be sent through Care Everywhere.Diabetes and diet (Danish)documented in this encounter [facility] Work Phone: 11-26-2024 History of Present [...] being taken. He does not see a commercial photographer.Eye exam is current. Hypertension This is a [...] of anterolateral wall, initial episode of care ([facility]) Alzheimer's dementia without behavioral disturbance ([facility]) Appendicitis Arthritis Central hearing loss Chronic airway obstruction ([facility]) Chronic lymphoid leukemia, without mention of having achieved remission(204.10) ([facility]) COPD (chronic obstructive pulmonary disease) ([facility]) Coronary atherosclerosis ([facility]) Diabetes ([facility]) Dupuytren's contracture of both hands Endolymphatic hydrops, bilateral Essential hypertension, benign ([facility]) Heart murmur History of being hospitalized 2014 small bowel obstruction History of blood clots Hx of being hospitalized 10/27/2020 Perforated Diverticulitis Hx of being hospitalized 04/07/2021 Colitis, Sepsis Hypercholesterolemia ([facility]) Hypertension ([facility]) Kidney disease Left shoulder pain Leukemia ([facility]) ESCL Leukocytosis Meniere disease Mitral valve disorder Nephrolithiasis Osteoarthrosis Painful diabetic neuropathy ([facility]) Personal history of colonic polyps Pure hypercholesterolemia ([facility]) Sleep disorder Type 2 diabetes mellitus treated without insulin ([facility]/HCC) Uric acid nephrolithiasis Past Surgical History: Procedure Laterality Date APPENDECTOMY CATARACT EXTRACTION Bilateral 2015 CHOLECYSTECTOMY COLECTOMY reverse HERNIA REPAIR LITHOTRIPSY OTHER [...] polyneuropathy, without long-term current use of insulin ([facility]) Recommend freq foot check, comfortable shoes, as well as keeping glucose under good control documented in this encounter [facility] 11-26-2024 Instructions Mireya Rojas NP - 11/26/2024 2:00 PM EDT Labs; fasting 8 hours you can do this at the hospital, or [facility] lab Ultra [place] Heart: [facility] and they will call you documented in this encounter [facility] 09-07-2024 Telephone encounter Note Patient said he was told to take 3 pills a day instead of 2 and now he is out. JN [facility] 09-07-2024 Miscellaneous Notes Patient said he was told to take 3 pills a day instead of 2 and now he is out. STAN documented in this encounter [facility] 08-18-2024 History of Present illness Narrative Images [...] Do you have a medical power of contracts attorney?: Yes Who is your medical power of contracts attorney?: saturday Objective : BP 130/72 Pulse [...] August 18, 2024 documented in this encounter [facility] 08-06-2024 Instructions Jenny Solis - 08/06/2024 2:24 PM EST RTC in 12 months Labs same day documented in this encounter [facility] 08-06-2024 History of Present illness Narrative Images from the original note were not included. NAME: Bryant Eitan CLINIC NO.: [id number] DATE OF SERVICE: August 06, 2024 ([facility]) Some elements in this clinic note that are critical to medical decision making have been carefully reviewed and included from a prior clinic note dated: August 08, 2023 ([facility]) Referring Provider: Additional Clinicians involved in Eitan [...] - Colostomy Reversal: Dr. Zahraa Darby at [facility] A. Colostomy, removal: - Ostomy-related changes B. Rectal stump, removal: - Benign rectum D. Submitted as donut, excision: - Benign colon 10/27/2020 - Colon, sigmoid, resection: Dr. Zahraa Darby at [facility] - Diverticulitis with areas of abscess and [...] skin abrasions from playing with his daughter's mongolian plasencia puppies. He mentions his nephew with [...] it was not working. He was hospitalized ([place]) due to surgical and post-op complications. He also has several abdominal hernias. Was hospitalized a second time this year ([facility]) as well due to a car [...] Coronary Artery Disease Mother age 65 of [place] Coronary Artery Disease Father age 95 Stroke Father 2 strokes Alcohol/Drug Brother liver cirrhosis in 60s. Coronary Artery Disease Sister age 67 of [place] Coronary Artery Disease Sister age 62 of [place] Emphysema Brother living I spent a total of 20 minutes on the date of the service which included preparing to see the patient, [id number] patient care, completing clinical documentation, obtaining and/or reviewing separately obtained history, performing a medically appropriate examination, counseling and educating the patient/family/caregiver, ordering medications, tests, or procedures, independently interpreting results (not separately reported), communicating results to the patient/family/caregiver, and care coordination (not separately reported). Frederick Zapata MD, CPE Hematology and Oncology Services Provided at: [facility], [place], [place] Scribe Attestation: This note was scribed [...] under my direction. CC: Dima Mo MD [id number] [facility] [id number] Rodríguez Wheat II, MD, MD [address] [facility] [address] [facility] [address] [facility] documented in this encounter [facility] 08-06-2024 Note HNO ID: [id number] Author: FREDERICK ZAPATA MD Service: ? Author Type: Physician Type: Progress Notes Filed: 08/10/2024 14:07 Note Text: NAME: Eitan Hurtado [facility] NO.: [id number] DATE OF SERVICE: August 06, 2024 ([facility]) Some elements in this clinic note that are critical to medical decision making have been carefully reviewed and included from a prior clinic note dated: August 08, 2023 ([facility]) Referring Provider: Additional Clinicians involved in Eitan [...] - Colostomy Reversal: Dr. Zahraa Darby at [facility] A. Colostomy, removal: - Ostomy-related changes B. Rectal stump, removal: - Benign rectum D. Submitted as donut, excision: - Benign colon 10/27/2020 - Colon, sigmoid, resection: Dr. Zahraa Darby at [facility] - Diverticulitis with areas of abscess and [...] skin abrasions from playing with his daughter's mongolian plasencia puppies. He mentions his nephew with [...] it was not working. He was hospitalized ([place]) due to surgical and post-op complications. He also has several abdominal hernias. Was hospitalized a second time this year ([facility]) as well due to a car [...] of Dr. Mo. (more content not included)... [facility] 07-03-2024 History of Present illness Narrative [...] Polyneuropathy due to type 2 diabetes mellitus ([facility]) Currently taking Gabapentin 300mg Twice Daily. Feels symptoms are well controlled. Continue current regimen. 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 DR LEON- Pain Management [phone] documented in this encounter [facility] 08-08-2023 Instructions Pari Abebe - 08/08/2023 3:09 PM EST Labs today Mail results to patient due to his difficulty hearing. We will obtain Bx results from his forehead lesions. We will also obtain hospital records from [facility] and [facility]. RTC in 12 months with labs same day. documented in this encounter [facility] 08-08-2023 History of Present illness Narrative Images from the original note were not included. NAME: Eitan Hurtado CLINIC NO.: [id number] DATE OF SERVICE: August 08, 2023 (ruperto) [...] We will also obtain hospital records from [facility] and [facility]. RTC in 12 months with labs [...] it was not working. He was hospitalized ([place]) due to surgical and post-op complications. He also has several abdominal hernias. Was hospitalized a second time this year ([facility]) as well due to a car [...] Coronary Artery Disease Mother age 65 of [place] Coronary Artery Disease Father age 95 Stroke Father 2 strokes Alcohol/Drug Brother liver cirrhosis in 60s. Coronary Artery Disease Sister age 67 of [place] Coronary Artery Disease Sister age 62 of [place] Emphysema Brother living I spent a total of 30 minutes on the date of the service which included preparing to see the patient, [id number] patient care, completing clinical documentation, obtaining and/or reviewing separately obtained history, performing a medically appropriate examination, counseling and educating the patient/family/caregiver, ordering medications, tests, or procedures, independently interpreting results (not separately reported), communicating results to the patient/family/caregiver, and care coordination (not separately reported). Frederick Zapata MD, CPE Hematology and Oncology Services Provided at: [place], [place] Scribe Attestation: This note was scribed [...] under my direction. CC: Dima Mo MD [id number] [facility] [id number] Rodríguez Wheat II, MD, [address] [facility] [address] [facility] [address] Nam Santamariah documented in this encounter [facility] 06-14-2023 Evaluation note Encounter Date Diagnosis [...] the eyes or difficulty breathing. Call your supervisor whipped topping first thing Saturday morning to notify them that you stop the antibiotic and request further instruction. Jun, Periorbital swelling (ICD-10 - H57.89) Jun, Encounter for post surgical wound check (ICD-10 - Z48.89) [employer] Other 01-16-2023 Evaluation note* Encounter Date Diagnosis Assessment Notes Treatment Notes Treatment Clinical Notes Sep, Bilateral impacted cerumen (ICD-10 - H61.23) Cerumen impaction home care material was printed Drink plenty fluids, get plenty of rest. Continue home medications as prescribed. Follow-up with your can filling and closing machine tender for your hearing test as scheduled. Go to the ER for worsening symptoms or concerns [employer] Other 05-02-2022 History of Present illness Narrative* [...] labs same day Frederick Zapata MD, CPE [place], [place] Nam Lugo [facility] NoteThe [facility] NoteThe [facility] Evaluation note* Diagnosis Chronic lymphocytic leukemia (HCC)- Primary Chronic lymphoid leukemia, without mention of having achieved remission [facility] noteNo assessment information availableCl[facility] Work Phone: Evaluation note* Diagnosis Pain- Primary Generalized pain [facility] Diagnosis Chronic lymphocytic leukemia (HCC)- Primary Chronic lymphoid leukemia, without mention of having achieved remission [facility] Diagnosis Rash- Primary Rash and other [...] diabetes mellitus (CMS/HCC) [facility] Diagnosis Rash- Primary Rash and other [...] Atherosclerosis of aorta documented in [facility] encounter [facility]* Diagnosis Rash- Primary Rash [...] diabetes mellitus (CMS/HCC) documented in this encounter [facility] note* Diagnosis Rash- Primary Rash [...] of insulin (CMS/HCC) documented in this encounter [facility] Healthcare[facility] note* Diagnosis Rash- Primary Rash [...] (CMS/HCC) Pure hypercholesterolemia [facility] Diagnosis Chronic lymphocytic leukemia (HCC)- Primary Chronic lymphoid leukemia, without mention of having achieved remission [facility] Rash- Primary Rash and [...] insulin (CMS/HCC)- Primary documented in this encounter [facility] HealthcareEvaluation note* Diagnosis Type 2 diabetes mellitus without complication, 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)- Primary documented in this encounter [facility]* Diagnosis Hypercholesterolemia (CMS/HCC) Pure hypercholesterolemia documented in this encounter [facility]* Diagnosis Rash- Primary Rash [...] diabetes mellitus (CMS/HCC) documented in this encounter [facility] note* Diagnosis Rash- Primary Rash [...] Dizziness and giddiness documented in this encounter [facility]* Diagnosis Orthostatic hypotension- Primary Mitral valve prolapse Mitral valve disorders Shortness of breath Dizziness Dizziness and giddiness BMI 27.0-27.9,adult Former smoker Personal history of tobacco use, presenting hazards to health Nonrheumatic mitral valve regurgitation Diabetes mellitus type II, non insulin dependent (Multi) Type II or unspecified type diabetes mellitus without mention of complication, not stated as uncontrolled documented in this encounter [facility] Work Phone: Evaluation note* Diagnosis Rash- [...] mitral valve regurgitation documented in this encounter [facility] HealthcareEvaluation note* Diagnosis Rash- Primary Rash [...] of insulin (CMS/HCC) documented in this encounter [facility] Healthcare[facility] note* Diagnosis Shortness of breath- Primary Mitral valve prolapse Mitral valve disorders Dizziness Dizziness and giddiness Orthostatic hypotension Nonrheumatic mitral valve regurgitation Diabetes mellitus type II, non insulin dependent (Multi) Type II or unspecified type diabetes mellitus without mention of complication, not stated as uncontrolled BMI 27.0-27.9,adult Former smoker Personal history of tobacco use, presenting hazards to health documented in this encounter [facility] Work Phone: Evaluation note* Diagnosis Rash- [...] Essential hypertension, benign documented in this encounter [facility] HealthcareEvaluation note* Diagnosis Rash- Primary Rash [...] pain, generalized [facility] Diagnosis Onset Date Resolution Status Admit Date Protrusion of lumbar intervertebral disc acute May 252024 1:16pm [facility] Work Phone: Histlni general Narrative - Reported* Type Description Date Medical History diabetes Medical History hypertension Medical History hypercholesterolemia Medical History Vertigo Medical History COPD Medical History Stoma Reversal Surgical History Gallbladder Surgical History Kidney Stones Surgical History Appendix Surgical History Hernia Repair Surgical History Tonsils Surgical History Left Carpal/Cubital/[place] Canal Releas Surgical History Stoma Reversal Hospitalization History See above [facility] Other History general Narrative - Reported* Type [...] AND BOTH LEGS Hospitalization History See above [facility] Other Reason for referral (narrative)* Diagnostic Procedure Only (Routine) - Authorized Specialty Diagnoses / Procedures Referred By Contac t Referred To Contact XR IMAGING Diagnoses Pain Procedures XR HAND GENERAL 3V PA/LAT/OBL RIGHT RADEX HAND MINIMUM 3 VIEWS Joshua Su PA-C [address] [place] [address] Xr Imaging Referral ID Status Reason Start Date Expiration Date Visits Requested Visits Authorized [id number] Authorized Auto-Generat ed Referral 12/03/2022 01/02/2024 1 1 * Diagnostic Procedure Only (Routine) - Pending Review Specialty Diagnoses / Procedures Referred By Yuan t Referred To Contact XR IMAGING Diagnoses Pain Procedures XR HAND GENERAL 3V PA/LAT/OBL LEFT RADEX HAND MINIMUM 3 VIEWS Joshua Su PA-C [address] [place] [address] Xr Imaging Referral ID Status Reason Start Date Expiration Date Visits Requested Visits Authorized [id number] Pending Review Auto-Generat ed Referral 12/03/2022 01/02/2024 1 1 [facility] Summary Purpose Family History Relationship Condition Age at Onset Recorded Date/T mitch father Unknown family member Unknown mother Unknown Heart disease Unknown Advance Directives Advance Directive Response Recorded Date/ Time Advance Directives No February 25 3:54pm Chief Complaint and Reason for Visit Chief Complaint [id number] Chief Complaint Admit Date [facility] F/U HERNIATED DISC May 1:16pm Reason for Visit Admit Date Protrusion of lumbar intervertebral disc May 25, 2025 1:16pm Additional Source Comments (unrecognized sect ion and content) No Status Records FoundNo Status Records FoundNo Status Records FoundNo Status Records FoundNo Status Records FoundNo Status Records FoundNo Status Records Found INFORMATION SOURCE (unrecogn ized section and content) DATE CREATED AUTHOR 10/12/2021 [facility] DATE CREATED AUTHOR AUTHOR'S ORGANIZ ATION 06/02/2022 [facility] DATE CREATED AUTHOR AUTHOR'S ORGANIZ ATION 08/04/2022 [facility] DATE CREATED AUTHOR AUTHOR'S ORGANIZ ATION 08/13/2024 [facility] DATE CREATED AUTHOR AUTHOR'S ORGANIZ ATION 01/28/2025 [facility] DATE CREATED AUTHOR AUTHOR'S ORGANIZ ATION 02/13/2025 [facility] DATE CREATED AUTHOR AUTHOR'S ORGANIZ ATION 04/02/2025 [facility] EPIC Source Comments (unrecognize d section and content) In the event this informatio n is protected by the Federal Confidentiality of Alcohol and Drug Abuse Patient Records regulations: The Federal rules restrict any use of the information to criminally investigate or prosecute any alcohol or drug abuse patient[facility] the event this information is protected by the Federal Confidentiality of Alcohol and Drug Abuse Patient Records regulations: The Federal rules restrict any use of the information to criminally investigate or prosecute any alcohol or drug abuse patient.[facility] the event this information is protected by the Federal Confidentiality of Alcohol and Drug Abuse Patient Records regulations: The Federal rules restrict any use of the information to criminally investigate or prosecute any alcohol or drug abuse patient.[facility] the event this information is protected by the Federal Confidentiality of Alcohol and Drug Abuse Patient Records regulations: The Federal rules restrict any use of the information to criminally investigate or prosecute any alcohol or drug abuse patient.[facility] Reason for Visit (unrecogniz ed section [...] dizziness Specialty Diagnoses / Procedures Referred By Contac t Referred To Contact Diagnoses Dizziness Procedures ECG 12 Lead Todd Vallecillo MD [address] [place] [address] Phone: tel: fax: Referral ID Status Reason Start Date Expiration Date V isits Requested Visits Authorized [id number] Authorized 12/28/2024 12/28/2025 1 1 Reason Comments Follow-up Follow up Stress res ults Specialty Diagnoses / Procedures Referred By Contac t Referred To Contact Cardiology Diagnoses Mitral valve prolapse Procedures Follow Up In Cardiology Todd Vallecillo MD [address] [place], [place] [address]er [place] [id number] Phone: tel: fax: Todd Vallecillo MD [address] [place], [place] [id number] Phone: tel: fax: Referral ID Status Reason Start Date Expiration Date V isits Requested Visits Authorized [id number] Authorized 12/28/2024 12/28/2025 1 1 Care Teams (unrecognized sec tion and content) Team Status: Active Member Role Status Dates Shaikh Holly MD Primary Care Provider Active Team Status: Inactive Member Role Status Dates Shaikh Holly MD Primary Care Provider Active Start: May 25, 2025 End: May 25, 2025 Faye Garcia DO Attending Provider Active Star t: May 25, 2025 End: May 25, 2025 Filter Tank Tender Relationship Specialty Start Date End Date Rodríguez Wheat II PCP - General Internal Medicine 05/06/13 Team Status: Inactive Member Role Status Dates Shaikh Holly MD Primary Care Provider, Attending Pr arianna Active Team Status: Active Member Role Status Dates Shaikh Holly MD Primary Care Provider Active Filter Tank Tender Relationship Specialty Start Date End Date Rodríguez Wheat II PCP - General Internal Medicine 05/06/13 Filter Tank Tender Relationship Specialty Start Date End Date Rodríguez Wheat II, MD PCP - General Internal Medicine 05/06/13 Filter Tank Tender Relationship Specialty Start Date End Date Shaikh Barrera MD [address] [place] [address] PCP - Devoted 09/02/23 Low Beyer MD [address] [place] [address] PCP - General Family Medicine 04/07/24 Leander Chanel NP [address] [place] [address] Nurse Practitioner Family Medicine 04/07/24 Brandi Willett LPN Licensed Practical Nurse Family Medicine 05/15/24 Filter Tank Tender Relationship Specialty Start Date End Date Shaikh Barrera MD [address] [place] [address] PCP - Devoted 09/02/23 Low Beyer MD [address] [place] [address] PCP - General Family Medicine 04/07/24 Leander Chanel NP [address] [place] [address] Nurse Practitioner Family Medicine 04/07/24 Brandi Willett LPN Licensed Practical Nurse Family Medicine 05/15/24 Filter Tank Tender Relationship Specialty Start Date End Date Shaikh Barrera MD [address] [place] [address] PCP - Devoted 09/02/23 Low Beyer MD [address] [place] [address] PCP - General Family Medicine 04/07/24 Leander Chanel, KHUSHI [address] [place] [address] Nurse Practitioner Family Medicine 04/07/24 Brandi Willett LPN Licensed Practical Nurse Family Medicine 05/15/24 Filter Tank Tender Relationship Specialty Start Date End Date Shaikh Barrera MD [address] [place] [address] PCP - Devoted 09/02/23 Low Beyer MD [address] [place] [address] PCP - General Family Medicine 04/07/24 Leander Chanel NP [address] [place] [address] Nurse Practitioner Family Medicine 04/07/24 Brandi Willett LPN Licensed Practical Nurse Family Medicine 05/15/24 Filter Tank Tender Relationship Specialty Start Date End Date Shaikh Barrera MD [address] [place] [address] PCP - Devoted 09/02/23 09/01/24 Low Beyer MD [address] [place] [address] PCP - General Family Medicine 04/07/24 Leander Chanel NP [address] [place] [address] Nurse Practitioner Family Medicine 04/07/24 Rosa Nguyen MA Family Medicine 07/06/24 Filter Tank Tender Relationship Specialty Start Date End Date Shaikh Barrera MD [address] [place] [address] PCP - Devoted 09/02/23 09/01/24 Low Beyer MD [address] [place] [address] PCP - General Family Medicine 04/07/24 Leander Chanel NP [address] [place] [address] Nurse Practitioner Family Medicine 04/07/24 Rosa Nguyen MA Family [facility] 07/06/24 Filter Tank Tender Relationship Specialty Start Date End Date Shaikh Barrera MD [address] [place] [address] PCP - Devoted 09/02/23 09/01/24 Low Beyer MD [address] [place] [address] PCP - General Family Medicine 04/07/24 Leander Chanel NP [address] [place] [address] Nurse Practitioner Family Medicine 04/07/24 Rosa Nguyen MA Family Medicine 07/06/24 Filter Tank Tender Relationship Specialty Start Date End Date Shaikh Barrera MD [address] [place] [address] PCP - Devoted 09/02/23 09/01/24 Low Beyer MD [address] [place] [address] PCP - General Family Medicine 04/07/24 Leander Chanel NP [address] [place] [address] Nurse Practitioner Family Medicine 04/07/24 Rosa Nguyen MA Family Medicine 07/06/24 Filter Tank Tender Relationship Specialty Start Date End Date Shaikh Barrera MD [address] [place], [place] [id number] PCP - General Primary Care 08/06/24 Filter Tank Tender Relationship Specialty Start Date End Date Shaikh Barrera MD [address] [place] [address] PCP - Devoted 09/02/23 09/01/24 Low Beyer MD [address] [place] [address] PCP - General Family Medicine 04/07/24 Leander Chanel NP [address] [place] [address] Nurse Practitioner Family Medicine 04/07/24 Rosa Nguyen MA Family Medicine 07/06/24 Filter Tank Tender Relationship Specialty Start Date End Date Shaikh Barrera MD [address] [place] [address] PCP - Devoted 09/02/23 Low Beyer MD [address] [place] [address] PCP - General Family Medicine 04/07/24 Dang Rios LPN Licensed Practical Nurse Family Medicine 01/02/24 Leander Chanel NP [address] [place] [address] Nurse Practitioner Family Medicine 04/07/24 Filter Tank Tender Relationship Specialty Start Date End Date Shaikh Barrera MD [address] [place] [address] PCP - Devoted 09/02/23 Low Beyer MD [address] [place] [address] PCP - General Family Medicine 04/07/24 Dang Rios LPN Licensed Practical Nurse Family Medicine 01/02/24 Leander Chanel NP [address] [place] [address] Nurse Practitioner Family Medicine 04/07/24 Filter Tank Tender Relationship Specialty Start Date End Date Low Beyer MD [address] [place] [address] PCP - General Family Medicine 04/07/24 Leander Chanel NP [address] [place] [address] Nurse Practitioner Family Medicine 04/07/24 Rosa Nguyen MA Family Medicine 07/06/24 Filter Tank Tender Relationship Specialty Start Date End Date Low Beyer MD [address] [place] [address] PCP - General Family Medicine 04/07/24 Leander Chanel NP [address] [place] [address] Nurse Practitioner Family Medicine 04/07/24 Rosa Nguyen MA Family Medicine 07/06/24 Filter Tank Tender Relationship Specialty Start Date End Date Low Beyer MD [address] [place] [address] PCP - General Family Medicine 04/07/24 Leander Chanel NP [address] [place] [address] Nurse Practitioner Family Medicine 04/07/24 Rosa Nguyen MA Family Medicine 07/06/24 Filter Tank Tender Relationship Specialty Start Date End Date Low Beyer MD [address] [place] [address] PCP - General Family Medicine 04/07/24 Leander Chanel NP [address] [place] [address] Nurse Practitioner Family Medicine 04/07/24 Rosa Nguyen MA Family Medicine 07/06/24 Filter Tank Tender Relationship Specialty Start Date End Date Low Beyer MD [address] [place] [address] PCP - General Family Medicine 04/07/24 Leander Chanel NP [address] [place] [address] Nurse Practitioner Family Medicine 04/07/24 Rosa Nguyen MA Family Medicine 07/06/24 Filter Tank Tender Relationship Specialty Start Date End Date Low Beyer MD [address] [place] [address] PCP - General Family Medicine 04/07/24 Leander Chanel NP [address] [place] [address] Nurse Practitioner Family Medicine 04/07/24 Rosa Nguyen MA Family Medicine 07/06/24 Filter Tank Tender Relationship Specialty Start Date End Date Low eByer MD [address] [place] [address] PCP - General Family Medicine 04/07/24 Leander Chanel NP [address] [place] [address] Nurse Practitioner Family Medicine 04/07/24 Rosa Nguyen MA Family Medicine 07/06/24 Filter Tank Tender Relationship Specialty Start Date End Date Mireya Rojas, [employer] [address] [place] [address] PCP - General 12/17/24 Filter Tank Tender Relationship Specialty Start Date End Date Low Beyer MD [address] [place] [address] PCP - General Family Medicine 04/07/24 Leander Chanel NP [address] [place] [address] Nurse Practitioner Family Medicine 04/07/24 Rosa Nguyen MA Family Medicine 07/06/24 Filter Tank Tender Relationship Specialty Start Date End Date Low Beyer MD [address] [place] [address] PCP - General Family Medicine 04/07/24 Leander Chanel, KHUSHI [address] [place] [address] Nurse Practitioner Family Medicine 04/07/24 Rosa Nguyen MA Family Medicine 07/06/24 Filter Tank Tender Relationship Specialty Start Date End Date Low Beyer MD [address] [place] [address] PCP - General Family Medicine 04/07/24 Leander Chanel NP [address] [place] [address] Nurse Practitioner Family Medicine 04/07/24 Rosa Nguyen MA Family Medicine 07/06/24 Filter Tank Tender Relationship Specialty Start Date End Date Low Beyer MD [address] [place] [address] PCP - General Family Medicine 04/07/24 Leander Chanel NP [address] [place] [address] Nurse Practitioner Family Medicine 04/07/24 Rosa Nguyen MA Family Medicine 07/06/24 Filter Tank Tender Relationship Specialty Start Date End Date Mireya Rojas, [employer] [address] [place] [address] PCP - General 12/17/24 Filter Tank Tender Relationship Specialty Start Date End Date Low Beyer MD [address] [place] [address] PCP - General Family Medicine 04/07/24 Leander Chanel NP [address] [place] [address] Nurse Practitioner Family Medicine 04/07/24 Rosa Nguyen AR [address] [place] [address] Family Medicine 07/06/24 Filter Tank Tender Relationship Specialty Start Date End Date Low Beyer MD [address] [place] [address] PCP - General Family Medicine 04/07/24 Leander Chanel NP [address] [place] [address] Nurse Practitioner Family Medicine 04/07/24 Rosa Nguyen AR [address] [place] [address] Family Medicine 07/06/24 Filter Tank Tender Relationship Specialty Start Date End Date Low Beyer MD [address] [place] [address] PCP - General Family Medicine 04/07/24 Leander Chanel NP [address] [place] [address] Nurse Practitioner Family Medicine 04/07/24 Rosa Nguyen AR [address] [place] [address] Family Medicine 07/06/24 Filter Tank Tender Relationship Specialty Start Date End Date Low Beyer MD [address] [place] [address] PCP - General Family Medicine 04/07/24 Leander Chanel NP [address] [place] [address] Nurse Practitioner Family Medicine 04/07/24 Rosa Nguyen, AR [address] [place] [address] Family [facility] 07/06/24 Filter Tank Tender Relationship Specialty Start Date End Date Low Beyer MD [address] [place] [address] PCP - General Family Medicine 04/07/24 Leander Chanel NP [address] [place] [address] Nurse Practitioner [facility] 04/07/24 Rosa Nguyen, AR [address] [place] [address] [facility] 07/06/24 Team Status: Inactive Member Role Status Dates Shaikh Holly MD Primary Care Provider Active Start: May 25, 2025 End: May 25, 2025 Faye Garcia DO Attending Provider Active Star t: May 25, 2025 End: May 25, 2025 Goals (unrecognized section and content) Goals may be documented in a n alternate sectionNo InformationNo InformationGoals may be documented in an alternate section FOR RECORDS PERTAINING TO PATIENTS WHO ARE [...] BE BASED ON THE PRIMARY CLINICAL RECORDS. [employer] [facility]. provides no warranty or guarantee of the accuracy or completeness of information in this document.
== END 2025-06-03 13:06 | disposition home or self-care (01) ==
LOC: PM 13:06
PROVIDERS: PCP Family Medicine; Visit Provider Nurse Practitioner
DX: M48.062 Spinal stenosis, lumbar region with neurogenic claudication (principal); M47.816 Spondylosis without myelopathy or radiculopathy, lumbar region; M51.369 Other intervertebral disc degeneration, lumbar region without mention of lumbar back pain or lower extremity pain
CPT/HCPCS: G0463

== ENCOUNTER 2025-06-10 13:31 | Outpatient (RCR) | payer MEDICARE, SELFPAY | END 2025-07-20 07:24 | disposition home or self-care (01) | LOC: PT 13:31 | PROVIDERS: PCP Family Medicine; Visit Provider Nurse Practitioner | DX: M48.062 Spinal stenosis, lumbar region with neurogenic claudication (principal) | CPT/HCPCS: 97110; 97112; 97113; 97163 ==

== ENCOUNTER 2025-07-15 13:26 | Outpatient (OUT) | payer MEDICARE, SELFPAY ==
--- OUTSIDE RECORDS SUMMARY | 2025-07-01 09:34 | XMS_ITS | Continuity of Care Document ---
Author Organization [facility] Address [address] [place] [address] Phone Care Team Providers Care Molding Line Assistant Name Role Phone Shaikh JV Barrera Primary Care Provider Faye Garcia DO Attending Provider [phone] Faye Garcia DO Primary Care Provider [phone] Care Teams Patient Care Team Team Status: Active Member Role/Relationship Status Dates Faye Garcia DO Primary Care Provider Active Visit Care Team Team Status: Inactive Member Role/Relationship Status Dates Shaikh Holly MD Primary Care Provider Active Start: May 25, 2025 End: May 25, 2025Faye Garcia DOAttending ProviderActiveStart: May 25, 2025 End: May 25, 2025 Patient Care Team Team Status: Inactive Member Role/Relationship Status Dates Faye Garcia DO Primary Care Provider Active S tart: July 01, 2025 End: July 01, 2025Faye Garcia DOAttending ProviderActiveStart: July 01, 2025 End: July 01, 2025 Chief Complaint and Reason for Visit Chief Complaint Admit Date TB ER F/U HERNIATED DISC May 1:16pm 3m f/u July 01, 2025 1 :50pm Reason for Visit Admit Date Hyperglycemia, drug-induced May 252024 1:16pm Protrusion of lumbar intervertebral disc May 25, 2025 1:16pm Bilateral impacted cerumen July 01, 2025 1:50pm CLL (chronic lymphocytic leukemia) Octob er 2024 1:50pm Diabetes July 01, 2025 1 :50pm Hypercholesterolemia July 01, 2025 1:50pm Protrusion of lumbar intervertebral disc July 01, 2025 1:50pm Allergies, Adverse Reactions, Alerts Allergen Type Severity Reaction Last Updated Verified Status codeine Allergy Severe halucination July 01, 2025 2:07pm Y es Active latex Allergy Unknown Unknown Reaction July 01, 2025 2:07 pm Yes Active narcotics Allergy Severe hallucinations May 25, 2025 1:40pm No Active Social History Smoking Status Status Start Date End Date Date of Observa tion Ex-smoker (finding) July 01, 2025 2:02pm Observation Status Observation Response Date of Response Legal Sex Male (finding) Sex Assigned At [facility] 1939 Family History Relationship Condition Age at Onset Recorded Date/T mitch father Unknown Heart diseaseUnknownfamily memberDeceasedUnknownmotherDeceasedUnknownHeart diseaseUnknownpaternal grandmotherCerebrovascular accident (CVA)Unknown Problems Active Problems Problem Diagnosis/Recorded Date Onset Date Stat us Dupuytren's contracture of both hands May 13, 2024 4:00pm Unknown Active Hyperglycemia, drug-induced May 25, 2025 3:48p m Unknown Active Diabetes May 13, 2024 4:00pm Unknown Active CLL (chronic lymphocytic leukemia) July 01, 2025 2:08pm Unknown Active Hypercholesterolemia May 13, 2024 4:00pm Unkno wn Active History of carpal tunnel rel ease of both wrists July 01, 2025 1:58pm Unknown Active Protrusion of lumbar interve rtebral disc May 25, 2025 2:02pm Unknown Active Bilateral impacted cerumen July 01, 2025 2:31pm U nknown Active Hypertension May 13, 2024 4:00pm Unknown Active Medications Medication Status Dose Units Route Directions Qty Days Refills S tart Date Stop Date End Date Reason(s) Instructions Adherence Gabapentin 300 mg capsule Active 300 MG PO Three times daily May 18, 2025 3:39pmComplies with drug therapyGlipizide 10 mg tablet Fwsfmyxccmpf02SNFZLzvqt azgza79515Vbucbimsy 2024 12:00amSeptember 2024 3:55bkW12.9Take one tablet in the morning and take one tablet in the evening. Take before meals.Folic Acid 1 mg qujgcjWujoedxacwkz1OOVAGrlzc92393 May 18, 2025 12:00amSept2024 3:49pmMethotrexate Sodium 2.5 mg tabletActive2.5MGPOevery fjxp4561EbksdnhhwMay 18, 2025 12:00amComplies with drug therapyFolic Acid 1 mg kahjmmQirduo9WBUNTzloh99225Qpvvgcgcx 16th, 2025 3:48pmComplies with drug therapyGlipizide 10 mg ifrlmuDijxdhbbetcp24MPVGCjflg aioii99345Jrwavqlrw 16th, 2025 3:49pmSept2024 12:43udY27.9Take one tablet in the morning and take one tablet in the evening. Take before meals. Glipizide 10 mg xlzxgfHqrcjspuuxss59JERTRouhj efmjj78248Waucdouvv 18th, 2025 12:16pmSept2024 12:39rdW83.9Take one tablet in the morning and take one tablet in the evening. Take before meals.Glipizide 10 mg tabletDiscontinued 10MGPOTwice chkfg28874RjeiszkbfMay 20, 2025 12:19pmSe2024 9:19pm E11.9Take one tablet in the morning and take one tablet in the evening. Take before meals.Glipizide 10 mg cztiuoXbhvmgvbyber99BSZPZppwt qqmsv61500Rudsaomeu 18th, 2025 9:17pmOct2024 3:02duB47.9Take one tablet in the morning and take one tablet in the evening. Take before meals.Glipizide 10 mg tablet Qwrpsu71HPBRCvmuv djxrk30299Lvrhpfq 16th, 2025 3:71fiE34.9Take one tablet in the morning and take one tablet in the evening. Take before meals.Complies with drug therapyNitroglycerin 0.3 mg Tablet, SublingualDiscontinued0.3MGSUBLINGUALevery 5 to 15 minutes as needed for Chest PainJune 2017 12:00amSept2024 3:41pmAspirin (Aspir-81) 81 mg Tablet,Delayed Release (Dr/Ec)Frjzwepnistt52 MGPODailyJune 2017 12:00[facility]2024 3:38pmSimvastatin 40 mg PmavvgNvfknw48NGCRHqoyi eveningJune 2017 12:00amComplies with drug therapy Meclizine 25 mg YshiitZmysajsovjkp37QZIMVokxj as needed for Motion SicknessJune 2017 12:00[facility]2024 3:40pmDiazepam 2 mg VnmdorBhjpmrlplcse6VI PODailyJune 2017 12:00[facility]2024 3:38pmDiphenhydramine Hcl 25 mg NfzyypExbpmrszrium41GSFJJyaix at bedtime as needed for SleepJune 2017 12:[facility]2024 3:39pmGabapentin 300 mg GzgipliSzutwqvildxa204NJGX Twice dailyJune 2017 12:00[facility]2024 3:41pmTriamterene- Hydrochlorothiazid 37.5-25 mg PduwmiEtutpbxxlyrx0PEEILZvyiiRhuo 2017 12:00[facility]2024 3:41pmGlipizide-Metformin 2.5-500 mg Tablet Nmqvzmyymabo5MKPHNNrpudBrth 29th, 2018 12:00[facility]2024 3:39pm Hydrocodone-Acetaminophen ([place]) 5-325 mg tabletDiscontinued1 - 2TABPOEVERY 4-6 HOURS as needed for Kasm941Xqll 2017Sept2023 10:56amDoxycycline Hyclate 100 mg dyztquLhslzrkwifyf203DHQKVojgi mlwsh4188Xtua 2017 12:00am May 15, 2024 10:56amSitagliptin Phosphate (Januvia) 100 mg tabletActive 100MGPODailySept2024 12:00amComplies with drug therapy Immunizations Immunization Event Date Not Given Reason Dose Number Signal Operator Linguist Lot Number Reason(s) Given Vaccine Information Statement (VIS) Detail Administration Location COVID-19 Waqar Herrera ([employer]) September 22, 2020 [id number] mRNA, Comirnaty (Pfizer)September 13, [id number]-19 mRNA Bivalent Booster (Pfizer)July 25, [id number] TIV High-Dose 65YR+ June 23, [id number] Vital Signs Vital Reading Result Reference Range Collection Date/Time Height 64 [in_i] May 25, 2025 1:40pzIgeldl86.85 kgSeptember 2024 1:26pmHeart Rate96 /pzp49-702Emnobzzir 2024 1:26pmRespiratory rate14 /coj89-58Dmssiwlca 2024 1:26pmOxygen saturation by Pulse vasisgqg36 %95-100September 2024 1:26pmBP Eghnrpvd204 mm[Hg]100-140September 2024 1:26pmBP Qnpkwlvtv83 mm[Hg]60-100September 2024 1:26pmBMI (Body Mass Index)26.4 kg/c5Yuatzfhhw 2024 1:90xlGbzzfs88 [in_i]July 01, 2025 1:48okPtckrn37.31 kgOctober 2024 1:56pmHeart Rate82 /sej14-012Kxkzsyw 2024 1:56pmRespiratory rate20 /mtj18-61Uglbakf 2024 1:56pmOxygen saturation by Pulse cccjlufu01 % 95-100October 2024 1:56pmBP Gdzymjxa237 mm[Hg]100-140October 2024 1:56pmBP Ryqxvmhfl43 mm[Hg]60-100October 2024 1:56pmBMI (Body Mass Index) 24.7 kg/x0Qxhsgvm 2024 1:56pm Advance Directives Advance Directive Response Recorded Date/ Time Advance Directives No February 25 3:54pm Insurance Providers Guarantor Delia Matta Address [address] [place] [address] [place] [address] Info.Home Phone: Coverage Status Update:2025 Payer Group Member ID Coverage Type Subscriber Relationship to Subscriber Effective Date Expiration Date Ronni [facility] PFFS Id: [id number] Mayer , P Id: [id number] [address] [place] [address] Home Phone: Email: Declined [employer] MCR PFFS [id number] Hurtado , P Id: [id number] [address] [place] [address] Home Phone: Email: Declined [employer] MCR PFFS [id number] Hurtado , P Id: [id number] [address] [place] [address] Home Phone: Email: Declined 18elfJanuary 2018 Encounters Encounter Location(s) Arrival/Admit Date Discharge/Departure Date Discharge/Departure Disposition Provider(s) Departed Physician/ Provider Office Visit -[facility] May 25, 2025 1:16pm May 25, 2025 2:05pm Discharged to home care or self care (routine discharge) Faye Garcia DO Departed Physician/ Provider Office Visit -[facility] July 01, 2025 1:50pm July 01, 2025 2:31pm Discharged to home care or self care (routine discharge) Faye Garcia DO Recent Diagnosis Onset Date Admit Date Hyperglycemia, drug-induced Unknown Sept ember 2024 1:16pm Protrusion of lumbar intervertebral disc Unknown May 25, 2025 1:16pm Bilateral impacted cerumen Unknown Octob er 2024 1:50pm CLL (chronic lymphocytic leukemia) Unknown July 01, 2025 1:50pm Diabetes Unknown July 01 1:50pm Hypercholesterolemia Unknown June 1:50pm Protrusion of lumbar intervertebral disc Unknown July 01, 2025 1:50pm Assessments Diagnosis Onset Date Resolution Status Admit Date Hyperglycemia, drug-induced acuteSeptember 2024 1:16pmProtrusion of lumbar intervertebral discacute May 25, 2025 1:16pmBilateral impacted cerumenacuteOctober 2024 1:50pmCLL (chronic lymphocytic leukemia)acuteOctober 2024 1:50pmDiabetes acuteOctober 2024 1:50pmHypercholesterolemiaacuteOctober 2024 1:50pm Protrusion of lumbar intervertebral discacuteOctober 2024 1:50pm Plan of Treatment Author Faye MaxwellTriHealth Bethes[facility] North HospitalAuthoredSeptember 2024 3:50pmPatient off prednisone, limited on what to prescribed due to high risk medication of methotrexate and narcotic intolerance. Will send referral to Pain clinic. He did well on prednisone. 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 should resolve after prednisone gets out of system. Call if not improved within 1 week. Return to clinic in 1 month Referral to Pain management Author Faye Garcia [facility] 2024 2:32pmPatient has seen Pain Management, plans for PT and aquatic therapy and injection if needed. Takes gabapentin for pain recheck due on lipids and cmp, continue simvastatin due for recheck ha1c. Has been faithfullly taking januvia and glipizide. Currently taking methotrexate, follows with oncology, next appointment in 2 months removed right ear cerumen impaction easily with curette, recommend Debrox drops to the left ear Return to clinic in 3 months Future Tests Future scheduled test information is unavailable Pending Tests Test Name Ordered Date Scheduled Date Comprehensive Metabolic Panel July 01, 2025 2:10pm Microalbumin, Urine (Random)July 01, 2025 2:10pm Future Visits Future appointment information is unavailable Future Procedures Procedure Name Ordered Date Scheduled Date A1C with Estimated Average Glu July 01 2:10pm Complete Blood Count Auto DiffOctober 2024 2:10pmLipid PanelOctober 2024 2:10pm Future Medications Future medication information is unavailable Patient Instructions Patient instructions are unavailable
--- OUTSIDE RECORDS SUMMARY | 2025-07-15 13:30 | XMS_ITS | Patient Health Record ---
Author Organization [facility]ices Address [address] [place] [address] Care Team Providers Care Associate Professor Of Education Name Role Phone Venkat Porter [phone] Allergies No Known Allergies Reason For Referral No Information Medications Medication SIG (Take, Route, Frequency, Duration) Notes Start Date End Date Status Eclipse Blood Glucose Monitor ActiveSimvastatinActiveGabapentinActiveAspirin Low Dose 81 MGTAKE 1 TABLET BY MOUTH EVERY DAY Oral; Duration: 1 DaysActiveglipiZIDE-metFORMIN HCl 2.5-500 MG TAKE 1 TABLET BY MOUTH EVERY DAY Oral; Duration: 1 DaysActive Social History Sex Assigned At : Social History Observation Description Sex Assigned At Male Plan Of Treatment No Information Insurance Providers Payer Name Payer Address Payer Phone Subscriber Number Group Number Insured Name Patient Relationship to Insured Coverage Start Date Coverage End Date [employer] Dental [facility] [address] [address] [place] [phone] [id number] Eitan Hurtado Self - patient is the insured 7
--- OUTSIDE RECORDS SUMMARY | 2025-07-15 13:30 | XMS_ITS | Clinical Summary ---
Author Organization [facility] Address [address] [place] [address] Phone Care Team Providers Care Railroad Watchman Name Role Phone Mireya Rojas Hortensia BIOLOGICAL TECHNICIAN-WEEKEND CAREGIVER Primary Care Provider Allergies Active AllergyReactionsCriticalityNoted DateCommentsCodeineGI intolerance, Hallucinations,Nausea ZnweKeirwu71/14/2023 Medications MedicationSigDispense QuantityRefillsLast FilledStart DateEnd DateStatus Januvia 100 mg tablet Take 1 tablet (100 mg) by mouth once daily.07/06/2023ctive simvastatin (Zocor) 40 mg tablet Take 1 tablet (40 mg) by mouth once daily.08/03/2024ctive gabapentin (Neurontin) 300 mg capsule Take 1 capsule (300 mg) by mouth 3 times a day.09/07/2024tive glipiZIDE (Glucotrol) 10 mg tablet Take 1 tablet (10 mg) by mouth 2 times a day.12/03/2023ctive methotrexate (Trexall) 2.5 mg tablet Take 1 tablet (2.5 mg total) by mouth 1 (one) time per week.09/21/2023ctive folic acid (Folvite) 1 mg tablet Take 1 tablet (1 mg) by mouth once daily.02/21/2024ctive melatonin 10 mg tablet extended release Take 1 capsule by mouth once daily at bedtime.02/21/2024ctive multivitamin tablet Take 1 tablet by mouth once daily.Active FIBER, PSYLLIUM HUSK, ORAL Take 1 capsule by mouth 4 times a day.Active Active Problems ProblemNoted DateDiagnosed DateMitral valve uhzvkywl03/28/2025Dizziness 12/28/2024Diabetes mellitus type II, non insulin /28/2025MI 27.0-27.9,adult12/28/2024Former heweje5012/28/2024Shortness of chkyvk8212/28/2024 Orthostatic xpchreemfxg05/28/2025Mitral valve tzemomeycwigh64/28/2025 Immunizations ImmunizationAdministration DatesNext DueFlu vaccine (IIV4), preservative free *Check age/dose*05/14/2020Flu vaccine, quadrivalent, high-dose, preservative free, age 65y+ (FLUZONE)07/03/2023,07/25/2022,05/18/2021Flu vaccine, trivalent, preservative free, HIGH-DOSE, age 65y+ (Fluzone)06/23/2024,06/18/2018,04/27/2017 Influenza Whole06/05/2013,06/18/2012,06/04/2011,06/21/2010,06/22/2009Influenza, injectable, hjwpfxrztejk97/02/2017Influenza, seasonal, intradermal, preservative free06/21/2015Influenza, trivalent, hmshhoetqa50/28/2019PPD Test12/26/2022, 3Pfizer COVID-19 vaccine, bivalent, age 12 years and older (30 mcg/0.3 mL)07/25/2022neumococcal conjugate vaccine, 13-valent (PREVNAR 13)06/22/2015 Pneumococcal polysaccharide vaccine, 23-valent, age 2 years and older (PNEUMOVAX 23)04/27/2017,10/23/2016Tdap vaccine, age 7 year and older (BOOSTRIX, ADACEL) 12/14/2022 Family History Medical HistoryRelationNameCommentsDiabetesBrotherDiabetesFatherHyperlipidemia MotherRelationNameStatusCommentsBrotherFatherMother Social History Tobacco UseTypesPacks/DayYears UsedDateSmoking Tobacco: FormerCigarettes Smokeless Tobacco: Never Tobacco Cessation:Counseling Given: Yes Alcohol UseStandard Drinks/WeekCommentsNever0 (1 standard drink = 0.6 oz pure alcohol)Sex and Gender InformationValueDate RecordedSex Assigned at BirthNot on fileLegal JeoHkmz75/25/2022 11:05 PM ESTGender IdentityNot on fileSexual OrientationNot on file Last Filed Vital Signs Vital SignReadingTime TakenCommentsBlood Rqgnwivm854/52002/10/2025 1:17 PM EDT Fuadg2970/11/2025 1:17 PM EDTTemperature--Respiratory Rate--Oxygen Saturation-- Inhaled Oxygen Concentration--Grxygo69.9 kg (158 lb 9.6 oz)02/10/2025 1:17 PM ARITumely962.6 cm (5' 4 )02/10/2025 1:17 PM EDTBody Mass Index27.22002/10/2025 1:17 PM EDT Plan of Treatment DateTypeDepartmentCare Team (Latest Contact Info)Ovpcwiydytf15/27/2026 1:40 PM ESTOffice Visit [facility] [address] [place] [address] Kelechi Bass MD [address] [place] [address] Health MaintenanceDue DateLast DoneCommentsDiabetes: Hemoglobin A1C1940 Welcome to Medicare Visit1940Diabetes: Retinopathy Qjwuvkqeo54/05/1948 Zoster Vaccines (1 of 2)1957RSV High Risk: (Elderly (60+) or Population) (1 - 1-dose 75+ series)2013COVID-19 Vaccine (2 - Pfizer risk series)Influenza Vaccine (#1)/, 07/03/2023, 07/25/2022, Additional history existsDiabetes: Urine Protein Jagsbslrb05/, 11/24/2018Lipid Panel/ DTaP/Tdap/Td Vaccines (2 - Td or Tdap)/neumococcal Vaccine Ydqtjtvmf23/26/2017, 10/23/2016, 06/22/2015HIB VaccinesAged OutNo longer eligible based on patient's age to complete this topicHPV VaccinesAged OutNo longer eligible based on patient's age to complete this topicHepatitis A VaccinesAged OutNo longer eligible based on patient's age to complete this topic Hepatitis B VaccinesAged OutNo longer eligible based on patient's age to complete this topicIPV VaccinesAged OutNo longer eligible based on patient's age to complete this topicMeningococcal VaccineAged OutNo longer eligible based on patient's age to complete this topicRotavirus VaccinesAged OutNo longer eligible based on patient's age to complete this topic Insurance Care Teams Team MemberRelationshipSpecialtyStart DateEnd Date Mireya Rojas, BIOLOGICAL TECHNICIAN-WEEKEND CAREGIVER [address] [place] [address] [facility]12/17/24
--- OUTSIDE RECORDS SUMMARY | 2025-07-15 13:30 | XMS_ITS | Clinical Summary ---
Author Organization [facility] Address [address] [place] [address] Care Team Providers Care Driller Operator Name Role Phone Unavailable Primary Care Provider Unavailabl e Social History Tobacco UseTypesPacks/DayYears UsedDateSmoking Tobacco: Never AssessedUT Safety & EnvironmentAnswerDate RecordedFear of Current or Ex-PartnerNot on file 10/24/2023Emotionally AbusedNot on file10/24/2023hysically AbusedNot on file 10/24/2023Sexually AbusedNot on file10/24/2023hysically or Sexually AbusedNot on file10/24/2023Sex and Gender InformationValueDate RecordedSex Assigned at BirthNot on fileLegal XuxXkwi6602/28/2022 10:11 PM EDTGender IdentityNot on file Sexual OrientationNot on file Last Filed Vital Signs Vital SignReadingTime TakenCommentsBlood Vhufhccq432/9201 1:59 PM EST Agkeq981909/20/2021 1:59 PM AJWOwkbztbcnoc13.3 ??C (97.4 ??F)09/20/2021 1:59 PM ESTRespiratory Rate--Oxygen Saturation--Inhaled Oxygen Concentration--Euizcr09.9 kg (149 lb 12.8 oz)09/20/2021 1:58 PM NFGQytwmm410.6 cm (5' 4 )09/20/2021 1:52 PM ESTBody Mass Index25.71009/20/2021 1:52 PM EST Plan of Treatment Health MaintenanceDue DateLast DoneCommentsMedicare Annual Wellness (AWV) 1940Depression Zdgrvxwlj37/05/1950Adult Mffcovs7602/05/1960Zoster Vaccines (1 of 2)02/05/1988Fall Risk Ujnyspdie50/05/2003COVID-19 Vaccine (2 - 2024- season)Influenza Vaccine (#1)/, 05/18/2021, 05/14/2020, Additional history existsPneumococcal Vaccine: 50+ Years Eucsdsrjt85/26/2017, 10/23/2016, 06/22/2015HIB VaccinesAged OutNo longer eligible based on patient's age to complete this topicHPV VaccinesAged OutNo longer eligible based on patient's age to complete this topicIPV VaccinesAged OutNo longer eligible based on patient's age to complete this topicMeningococcal B VaccineAged OutNo longer eligible based on patient's age to complete this topicMeningococcal VaccineAged OutNo longer eligible based on patient's age to complete this topicRotavirus VaccinesAged OutNo longer eligible based on patient's age to complete this topic Insurance
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
--- OUTSIDE RECORDS SUMMARY | 2025-07-15 13:42 | XMS_ITS | CCD ---
Author Organization [facility] CliniSyar Care Team Providers Care Lodging Facilities Manager Name Role Phone REBECCA FARRIS Referring Unavailable KIANA HOLCOMB Admitting Unavailable KIANA HOLCOMB Attending Unavailable RODRÍGUEZ WHEAT Primary Care Unavailable GA Procedure Practitioner Unavailab ZAHRAA Oneill Surgeon Unavailable NAM, Primary Care Unavailable SHAIKH BROWNING Referring Unavailable ZAHRAA DARBY Attending Unavailable ZAHRAA DARBY Admitting Unavailable Rodríguez Wheat II Primary Care Provider MD Maurice Barrera Primary Care Provider [phone] MD Maurice Barrera Attending Provider Shaikh Barrera Attending Unavailable Fawwaade, Lugo Primary Care Unavailable Fawwaade, Lugo Admitting Unavailable AICHHOLZ, PRINT PROJECT MANAGER MIREYA Consulting Unavailable AICHHOLZ, PRINT PROJECT MANAGER MIREYA Admitting Unavailable FAWWAD, LUGO H Primary Care Unavailable AICHHOLZ, PRINT PROJECT MANAGER MIREYA Attending Unavailable AICHHOLZ, PRINT PROJECT MANAGER MIREYA Consulting Unavailable AICHHOLZ, PRINT PROJECT MANAGER MIREYA Admitting Unavailable FAWWAD, LUGO H Primary Care Unavailable AICHHOLZ, PRINT PROJECT MANAGER MIREYA Attending Unavailable FAWWAD, LUGO H Admitting Unavailable FAWWAD, LUGO H Attending Unavailable FAWWAD, LUGO H Consulting Unavailable FAWWAD, LUGO H Primary Care Unavailable Annmarie Mcgee Unavailable Rodríguez Wheat II Primary Care Provider Jarret PERERA MD, Daniel B Primary Care Provider Shaikh Barrera MD Unavailable Low Beyer MD Primary Care Provider Chanel SHRIMP POND LABORER, Leander Unavailable Brennon MOLINAN, Brandi Unavailable Unavailable Shaik Barrera MDh Unavailable Rosa Nguyen MA Unavailable Unavailable Holly CARIAS, Primary Care Provider [phone] JARRET PERERA RODRÍGUEZ Jihan Primary Care Unavailable ABHYANKAR, FREDERICK Referring Unavailable ABCARMELINAANKAR, FREDERICK Attending Unavailable SHAIKH BARRERA Primary Care Unavailable Gabriel DROP CREW LABORER, Ardana Unavailable Unavailable Chanel SHRIMP POND LABORER, Leander Unavailable [phone] Aichholz CHEMICAL TESTER-PRINT PROJECT MANAGER, Mireya Hortensia Primary Care Provider TRABBERHANE, MOURHAF Referring Unavailable AICHHOLZ, MIREYA HORTENSIA Primary [...] Unavailable AICHHOLZ, MIREYA Attending Unavailable Holly CARIAS, Lugo Primary Care Provider Faye Garcia DO Attending Provider Shaikh Barrera MD Unavailable Low Beyer MD Primary Care Provider Darío SHRIMP POND LABORER, Leander Unavailable [phone] Rosa Nguyen MA Unavailable Holly CARIAS, Primary Care Provider Gabriel MOLINAN, Ardana Unavailable Unavailable Naderer MD, Low Primary Care Provider Darío PURI, Leander Unavailable [phone] Brennon WILLIS, Brandi Unavailable Jose Faye JARAMILLO Primary Care Provider Allergies Allergy ClassificationReported Allergen(s)Allergy TypeDate of OnsetReaction(s) Facility (3 sources)LatexDrug iiqfrtv28-07-8216Mwlvdgv, Unknown ReactionSamaritan Hospital (20 sources)Acetaminophen / oxyCODONEDrug Edawize53-17-6939[facility] (20 sources)Codeine; Translations: [CODEINE]Drug Gimgxjr47-99-0502 Hallucinations, GI intolerance, Nausea OnlyNOMS Healthcare (20 sources)oxyCODONEDrug Vdwjnfq63-42-1942PfyewrtFSKH [facility] (2 sources)Opioid AgonistsAllergy to dqiwltgfq81-37-9812blgmdulknudxpwCtwvfgbnb [facility] Medications Current Medications MedicationDrug Class(es)DatesSig (Normalized)Sig (Original)diclofenac sodium 50 mg delayed release oral tablet (4 sources)Nonsteroidal Anti-inflammatory DrugStart: 45-13-1003wcxietlkqb, EC, (VOLTAREN) 50 mg EC tablet 01/16/2017 Activedicyclomine hydrochloride 10 mg oral capsule (2 sources)AnticholinergicStart: 02-26-2024 End: 14-23-0844vujw 1 capsule by mouth in the morning, then take 1 capsule by mouth in the evening, then take 1 capsule by mouth at bedtimedicyclomine (Bentyl) 10 MG capsule Indications: Left lower quadrant pain Take 1 capsule (10 mg) by mouth in the morning and 1 capsule (10 mg) in the evening and 1 capsule (10 mg) before bedtime. 90 capsule 2 02/26/2024 05/26/2024 ActiveEqualyte (2 sources)Equalyte ActiveFIBER, PSYLLIUM HUSK, ORAL (2 sources)take 1 capsule by mouth four times dailyFIBER, PSYLLIUM HUSK, ORAL Take 1 capsule by mouth 4 times a day. Activegabapentin 300 mg oral capsule (20 sources)Anti-epileptic AgentStart: 09-07-2024 End: 31-69-4554oany 1 capsule by mouth three times dailyGabapentin 300 mg capsule Active 300 MG PO Three times daily May 18, 2025 3:39pm Complies with drug therapyStart: 04-15-2013 End: 16-52-9767idnv 1 capsule by mouth twice dailyGabapentin 300 mg Capsule Discontinued 300 MG PO Twice daily February 28, 2018 12:00am May 18, 2025 3:41pmNeurontin ActiveComment on above:Take 300 mg by mouth twice daily. glipiZIDE 10 mg oral tablet (20 sources)SulfonylureaStart: 05-18-2025 End: 99-21-7836sljd 1 tablet by mouth twice daily in the morningGlipizide 10 mg tablet Active 10 MG PO Twice daily 60 30 5 June 17, 2025 3:24pm E11.9 Take onetablet in the morning and take one tablet in the evening. Take before meals. Complies with drug therapyStart: 04-23-2024 End: 87-36-7145vxzu 1 tablet by mouth in the morningglipiZIDE (Glucotrol) 10 MG tablet Indications: Type 2 diabetes mellitus without complication, without long- term current use of insulin ([facility]/HCC) Take 1 tablet (10 mg) by mouth in the morning and 1 tablet (10 mg) in the evening. Take before meals. 180 tablet 08/03/2024 ActiveStart: 12-03-2023 End: 91-38-0139hjwj 1 tablet by mouth in the morningglipiZIDE (Glucotrol) 10 MG tablet Indications: Type 2 diabetes mellitus without complication, without long- term current use of insulin ([facility]) Take 1 tablet (10 mg) by mouth in the morning and 1 tablet (10 mg) in the evening. Take before meals. 180 tablet 02/01/2025 05/02/2025 ActiveglipiZIDE Activemelatonin 10 mg extended release oral tablet (2 sources)Start: 17-72-0742penl 1 capsule by mouth once daily at bedtime melatonin 10 mg tablet extended release Take 1 capsule by mouth once daily at bedtime. 02/21/2024 Activemethotrexate 2.5 mg oral tablet (20 sources)Folate Analog Metabolic InhibitorStart: 25-90-3409zzdy 1 tablet by mouth every weekMethotrexate Sodium 2.5 mg tablet Active 2.5 MG PO every week 5 30 0 May 18, 2025 12:00am Complies with drug therapymultivitamin tablet (2 sources)take 1 tablet by mouth once dailymultivitamin tablet Take 1 tablet by mouth once daily. Activemupirocin 0.02 mg/mg topical ointment (1 source)RNA Synthetase Inhibitor AntibacterialMupirocin 2 % External for 30 Days Activesimvastatin 40 mg oral tablet (20 sources)HMG-CoA Reductase InhibitorStart: 02-28-2018 End: 79-67-4798onmn 1 tablet by mouth once daily in the eveningSimvastatin 40 mg Tablet Active 40 MG PO Every evening February 28, 2018 12:00am Complies with drug therapyComment on above:Take 40 mg by mouth daily at bedtime.SITagliptin 100 mg oral tablet (20 sources)Dipeptidyl Peptidase 4 InhibitorStart: 60-04-4980wyxb 1 tablet by mouth once dailySitagliptin Phosphate (Januvia) 100 mg tablet Active 100 MG PO Daily May 25, 2025 12:00am Complies with drug therapyStart: 07-06-2023 End: 08-96-1164dach 1 tablet by mouth once dailySITagliptin (Januvia) 100 MG tablet Indications: Type 2 diabetes mellitus with diabetic polyneuropathy, without long-term current use of insulin (HCC) Take 1 tablet (100 mg) by mouth Daily for 10 days 10 tablet 03/04/2025 ActiveJanuvia 100 MG Oral for 30 Days Activetriamcinolone acetonide 1 mg/ml topical cream (16 sources)CorticosteroidStart: 67-75-1721khgyxrlfplpmf (Kenalog) 0.1 % cream 11/03/2024 Active Completed/Discontinued Medications MedicationDrug Class(es)DatesSig (Normalized)Sig (Original)acetaminophen 325 mg / HYDROcodone bitartrate 5 mg oral tablet (3 sources)Opioid AgonistStart: 03-03-2018 End: 75-46-6697ivfv 1 tablet by mouth every four to six hours as needed for pain Hydrocodone-Acetaminophen ([place]) 5-325 mg tablet Discontinued 1 - 2 TAB PO EVERY 4-6 HOURS as needed for Pain 30 0 March 03, 2018 May 15, 2024 10:56amaspirin 81 mg delayed release oral tablet (9 sources)Platelet Aggregation Inhibitor, Nonsteroidal Anti-inflammatory Drug Start: 02-28-2018 End: 65-23-6242norz 1 tablet by mouth once dailyAspirin (Aspir-81) 81 mg Tablet,Delayed Release (Dr/Ec) Discontinued 81 MG PO Daily February 28, 2018 12:00am May 18, 2025 3:38pmtake 1 tablet by mouth once dailyAspirin 81 mg ORAL Tab Take 81 mg by mouth once daily. 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 90 tablet 1 11/12/2023 07/01/2024 Discontinued (Therapy completed)diazePAM 2 mg oral tablet (7 sources)BenzodiazepineStart: 02-28-2018 End: 34-08-9957djeo 1 tablet by mouth once dailyDiazepam 2 mg Tablet Discontinued 2 MG PO Daily February 28, 2018 12:00am May 18, 2025 3:38pm Start: 15-68-5019MUPFEBMO 2 MG TAB Indications: Active M ni re's disease, cochleovestibular one pill 2-3 times edhrk818 2 10/11/2005 ActiveComment on above:one pill 2-3 times dailydiphenhydrAMINE hydrochloride 25 mg oral tablet (3 sources)Histamine-1 Receptor AntagonistStart: 02-28-2018 End: 12-95-2733cuwr 1 tablet by mouth once daily at bedtime as needed for sleep Diphenhydramine Hcl 25 mg Tablet Discontinued 25 MG PO Daily at bedtime as needed for Sleep February 28, 2018 12:00am May 18, 2025 3:39pmdoxycycline hyclate 100 mg oral tablet (3 sources)Tetracycline-class DrugStart: 03-03-2018 End: 24-50-9606bdvb 1 tablet by mouth twice dailyDoxycycline Hyclate 100 mg tablet Discontinued 100 MG PO Twice daily 14 7 0 March 03, 2018 12:00am S stevener 2023 10:56amfolic acid 1 mg oral tablet (20 sources)Start: 02-21-2024 End: 34-39-3277jryo 1 tablet by mouth once dailyFolic Acid 1 mg tablet Discontinued 1 MG PO Daily 30 30 0 May 18, 2025 12:00am May 18, 2025 3:49pmglipiZIDE 2.5 mg / metFORMIN hydrochloride 500 mg oral tablet (7 sources)Biguanide, SulfonylureaStart: 02-28-2018 End: 43-87-4549fohv 1 tablet by mouth once dailyGlipizide-Metformin 2.5-500 mg Tablet Discontinued 1 TAB PO Daily February 28, 2018 12:00am 2024 3:39pmStart: 81-84-4640skzywKOYB-metFORMIN (METAGLIP) 2.5-500 mg per tablet 01/19/2016 ActivehydroCHLOROthiazide 25 mg / triamterene 37.5 mg oral tablet (12 sources)Potassium-sparing Diuretic, Thiazide DiureticStart: 02-28-2018 End: 41-94-4917ripj 1 tablet by mouth once dailyTriamterene-Hydrochlorothiazid 37.5-25 mg Tablet Discontinued 1 TAB PO Daily February 28, 2018 12:00am May 18, 2025 3:41pmStart: 17-00-8998yibubwuzjyz-hydrochlorothiazide (MAXZIDE-25) 37.5-25 mg per tablet 11/10/2015 ActiveStart: 86-19-4377EGOJWVG 37.5/25 CAPSULE Indications: Active M ni re's disease, cochleovestibular one bymouth each day 30 4 06/29/2004 ActiveComment on above:one bymouth each daymeclizine hydrochloride 25 mg oral tablet (8 sources)AntiemeticStart: 02-28-2018 End: 23-99-2455mjze 1 tablet by mouth once daily as neededMeclizine 25 mg Tablet Discontinued 25 MG PO Daily as needed for Motion Sickness February 28, 2018 12: 00am May 18, 2025 3:40pmStart: 46-61-7254AOBCIUCL 25MG TABLET one three times daily for dizziness 100 4 07/20/2004 Activetake 2 tablets by mouth every twenty-four hoursMeclizine HCl 12.5 MG 2 tablets as needed Orally Once a day ActiveComment on above:one three times daily for dizzinessnitroglycerin 0.3 mg sublingual tablet (3 sources)Nitrate VasodilatorStart: 02-28-2018 End: 17-10-4733Ihoepdscqjtoy 0.3 mg Tablet, Sublingual Discontinued 0.3 MG SUBLINGUAL every 5 to 15 minutes as needed for Chest Pain February 28, 2018 12:00am May 18, 2025 3:41pm Problems Active Problems Problem ClassificationProblemDateDocumented DateEpisodic/ChronicAllergic reactions (1 source)Allergy, unspecified, initial encounterEpisodicChronic obstructive pulmonary disease and bronchiectasis (20 sources)Chronic obstructive lung disease; Translations: [Chronic obstructive pulmonary disease, unspecified]Onset: 726014-96-2917YqfrdbkWzkszavtap associated with dizziness or vertigo (4 sources)Meniere's disease; Translations: [Meniere's disease]Onset: 03-19-2005 35-43-4426QgyzqfmRpecunhy atherosclerosis and other heart disease (20 sources)Coronary atherosclerosis; Translations: [Atherosclerotic heart disease of [place] coronary artery without angina pectoris]38-09-9021Bkmeghe Diabetes mellitus with complications (20 sources)Polyneuropathy due to type 2 diabetes mellitus; Translations: [Type 2 diabetes mellitus with diabetic polyneuropathy]Onset: 441183-78-4701 ChronicDiabetes mellitus without complication (20 sources)Type 2 diabetes mellitus without complications; Translations: [Type 2 diabetes mellitus without complication]Onset: 35-24-6770UrsgoanMexbumai mellitus without complication (2 sources)Drug-induced hyperglycemia; Translations: [Hyperglycemia, unspecified]22-26-4315ZxzcgrmxHihusulih of lipid metabolism (20 sources)Hyperlipidemia; Translations: [Hyperlipidemia, unspecified]Onset: 281096-08-3662JbwpruxZcajxdtuf hypertension (20 sources)Essential (primary) hypertension; Translations: [Essential hypertension]Onset: 07-28-2022 Resolved: 611179-20-2911ThdtiqgNlsmj valve disorders (20 sources)Mitral valve prolapse; Translations: [Nonrheumatic mitral (valve) prolapse]Onset: 273662-38-4598RrfyokqZpxetlnsg (20 sources)Chronic lymphoid leukemia, disease; 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]Onset: 61-46-6123WmynzhnUppwh aftercare (1 source)Encounter for other specified surgical aftercareEpisodicOther circulatory disease (5 sources)Orthostatic hypotension; Translations: [Orthostatic hypotension] Onset: 752834-99-3988DkjpxgtkQsttj circulatory disease (1 source)Orthostatic hypotension; Translations: [Orthostatic hypotension]Onset: 16-07-5575DmilqjkxKiqpn connective tissue disease (2 sources)Dupuytren's disease; Translations: [Palmar fascial fibromatosis [Dupuytren]]EpisodicOther connective tissue disease (2 sources)Dupuytren's disease of palm; Translations: [Palmar fascial fibromatosis [Dupuytren]]EpisodicOther connective tissue disease (4 sources)Dupuytrens contracture of bilateral hands; Translations: [Palmar fascial fibromatosis [Dupuytren]]40-05-2702KqqstzxeMvngo ear and sense organ disorders (20 sources)Bilateral hearing loss; Translations: [Unspecified hearing loss, bilateral]Onset: 483496-47-0920SvkiodfZwskj ear and sense organ disorders (1 source)Impacted cerumen, bilateralEpisodicOther ear and sense organ disorders (2 sources)Impacted cerumen of bilateral ears; Translations: [Impacted cerumen, bilateral]74-46-7050JriylyaoLdtil eye disorders (1 source)Other specified disorders of eye and adnexaEpisodicOther lower respiratory disease (11 sources)Dyspnea; Translations: [Shortness of breath]Onset: 03-19-2005 86-74-5046JrscchofUnywg lower respiratory disease (2 sources)Shortness of breath; Translations: [Shortness of breath]Onset: 52-85-0132LwttnhprZyikb nervous system disorders (2 sources)Ulnar nerve entrapment at elbow; Translations: [Lesion of ulnar nerve, right upper limb]ChronicOther nervous system disorders (2 sources)Carpal tunnel syndrome; Translations: [Carpal tunnel syndrome, left upper limb]ChronicOther nervous system disorders (4 sources)Cubital tunnel syndrome; Translations: [Lesion of ulnar nerve, right upper limb]ChronicOther nutritional; endocrine; and metabolic disorders (4 sources)Overweight in adulthood with body mass index of 25 or more but less than 30; Translations: [Body mass index (BMI) 27.0-27.9, adult]Onset: 12-28-2024 80-43-1787VmnxvhpxIrkec nutritional; endocrine; and metabolic disorders (2 sources)Body mass index (BMI) 27.0-27.9, adult; Translations: [Body mass index (BMI) 27.0-27.9, adult]Onset: 51-68-0525UbefwdtdEvvcw screening for suspected conditions (not mental disorders or infectious disease) (1 source)Encounter for screening for malignant neoplasm of prostate; Translations: [ENC SCREEN MALIG NEOPLASM PROSTATE]Onset: 20-30-5308Qpzhlxqz Peripheral and visceral atherosclerosis (20 sources)Atherosclerosis of aorta; Translations: [Atherosclerosis of aorta] Onset: 300514-68-7094ZurhetgZkqnihxe codes; unclassified (1 source)Pain; Translations: [Pain, unspecified]EpisodicScreening and history of mental health and substance abuse codes (6 sources)Ex-smoker; Translations: [Personal history of nicotine dependence] Onset: 230875-96-6166FwmmpjusJjrgmhwfvqw; intervertebral disc disorders; other back problems (20 sources)Cervical arthritis; Translations: [Spondylosis without myelopathy or radiculopathy, cervical region]Onset: 105969-81-8402CnwwxbgWhzsonazonvq (1 source)Scrotal pain; Translations: [Scrotal pain]Onset: 05-08-2022 Unclassified (1 source)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, lumbar region Past or Other Problems Problem ClassificationProblemDateDocumented DateEpisodic/ChronicAbdominal hernia (20 sources)Incisional hernia; Translations: [Incisional hernia without obstruction or gangrene]Onset: 355891-98-5303QbrlvltzSadmfixqq pain (20 sources)Left lower quadrant pain; Translations: [Left lower quadrant pain] Onset: 02-26-2024 Resolved: 053235-14-0025IqzdsqyiTmemfcbefl associated with dizziness or vertigo (20 sources)Peripheral vertigo; Translations: [Other peripheral vertigo, unspecified ear]Onset: 295218-73-5027KkvdosujZupzxrac, dementia, and amnestic and other cognitive disorders (20 sources)Alzheimer's disease; Translations: [Alzheimer's disease, unspecified]Onset: 08-05-2023 Resolved: 543394-95-5679VnvowxiDlvgl valve disorders (20 sources)Cardiac murmur, unspecified; Translations: [Heart murmur]Onset: 68-59-0831OaolskbdEekjwupsszitb and screening for infectious disease (20 sources)Autoantibody level - finding; Translations: [Other specified abnormal immunological findings in serum]Onset: 591946-67-2562Msqlfoqp Intracranial injury (20 sources)Intracranial injury with loss of consciousness; Translations: [Unspecified intracranial injury withloss of consciousness greater than 24 hours with return to pre-existing conscious level, sequela]Onset: 08-05-2023 Resolved: 610903-89-9946GxnbmgwiGgzg disorders (20 sources)Mood disordersOnset: 08-20-2023 Resolved: 684487-60-4897Lfrdfurnpyf chest pain (4 sources)Chest pain; Translations: [Chest pain, unspecified]Onset: 03-19-2005 67-46-5692XiwdunekAfnsx connective tissue disease (20 sources)Fibromyalgia; Translations: [Fibromyalgia]Onset: 11-05-2023 86-10-5139WyefgitmVenzd connective tissue disease (20 sources)Triggering of digit; Translations: [Trigger finger, right middle finger]Onset: 584197-04-5596MlowlxtkEocky lower respiratory disease (4 sources)Disorder of lung; Translations: [Other disorders of lung]Onset: 690165-20-7842IywitqgsDmarv nervous system disorders (20 sources)Neuropathy; Translations: [Polyneuropathy, unspecified]Onset: 08-20-2023 Resolved: 111676-11-2962MfeoqbkOwiej skin disorders (20 sources)Eruption; Translations: [Rash and other nonspecific skin eruption] Onset: 953328-46-1539ZxqxxcgpNtjrd skin disorders (20 sources)Generalized rash; Translations: [Rash and other nonspecific skin eruption]Onset: 799627-68-1052LqxkqiwsKjsbuyav codes; unclassified (20 sources)Memory impairment; Translations: [Other amnesia]Onset: 11-05-2023 44-19-7706HneauwonPcxwmqixoee; intervertebral disc disorders; other back problems (20 sources)Lumbosacral radiculopathy; Translations: [Radiculopathy, lumbosacral region]Onset: 268044-19-0391RdlxujemLanhultmfdcl (2 sources)Onset: Viral infection (20 sources)Disease caused by 2019-nCoV; Translations: [COVID-19]Onset: 571905-87-6959Wtklkejb Results Test NameValueInterpretationReference RangeFacilityLower GI hemoglobin IA Ql (Stl)on 75-49-2956LZTTFJQ: UNKNOWNQUESTPerforming Organization Information Site ID: QPT Name: [facility] Address: [address] [place] [id number] Director: Ta Meyers [facility] HospitalOccult blood x 1, stool on 07-18-2869Ipxto GI hemoglobin IA Ql (Stl)SEE [facility] HospitalComment on above: FECAL GLOBIN BY IMMUNOCHEMISTRY Micro Number: [id number] Test Status: Final Specimen Source: Insure () fobt test card Specimen Quality: Adequate Fecal Globin: Not Detected Reference Range: Not Detected NOTE: Approved collection includes sample of toilet water adjacent to stool. Other methods of collection such as stool transferred from diaper, bedpan, or commode to toilet water may lead to inaccurate results. HbA1c (Bld) [Mass fraction]on 69-58-1619Uridmqwvajvjig and review of laboratory resultsAbnoAscension Eagle River Memorial HospitalLaboratory - Hematology and Cell countson 14-35-2625FqF0q (Bld) [Mass fraction]7 %[facility] HealthcareNUCLEAR STRESS TESTon 11-90-7495FVSMXRO STRESS TESTInterpreted By: Ayde Ríos and Giannuzzi Michael STUDY: MYOCARDIAL PERFUSION STRESS TEST WITH LEXISCAN Performing facility: [facility], [address] [place] [address], [address], [address] Provider: Todd Vallecillo MD PCP: Dr. Marci Rojas [facility] Supervising provider: Todd Vallecillo MD INDICATION: Signs/Symptoms:shortness of breath. ,R06.02 Shortness of breath HISTORY: Gender: M; Age: 84 y/o ; Height: HT 162.6 cm cm; Weight: WT 72.576 kg kg. Diabetes; SOB; Fatigue; MVR Quit smoking 30 years ago. COMPARISON: Previous nuclear testing completed st6838 at [facility]. ACCESSION NUMBER(S): [id number] ORDERING CLINICIAN: TODD VALLECILLO TECHNIQUE: ONE DAY protocol. Stress injection: Date:01-21-25, 34.0 mCi of Myoview IV 20 seconds after rapid injection of Lexiscan. Rest injection: Date: 01-21-25, 10.6 mCi of Myoview IV at rest. The patient had a rapid injection of 0.4 mg of Lexiscan IV over 10 seconds. Imaging was performed by gated tomographic technique. Reason for Lexiscan: dizziness/unsteady/fall risk STRESS TEST DATA: Resting heart rate [...] Ayde Ríos 01/21/2025 3:56 PM Dictation workstation: [id number] Hospital ECG [address] 82-79-9143Efktns sinus rhythmCPSt. Francis Hospital Work Phone: ca ECHO DOPPLER COMPLETEon [phone], [place] [address] Cardiology Report Signed Patient: EITAN HURTADO MR#: [id number] : 1940 Acct:[id number] Age/Sex: 84 / M ADM Date: 12/11/24 Loc: CARD Attending Dr: Mireya Rojas NP Ordering Physician: Mireya Rojas NP Date of Service: 12/11/24 Procedure(s): CA echo doppler complete Accession Number(s): [id number] cc: Mireya Rojas NP; LEANDER CHANEL Patient Name: EITAN HURTADO MR#: [id number] : 1940 Exam Date: 12/11/2024 Ordering Doctor: [...] at 19:36 Dictated By (more content not included)...TBHRadiology, Radiologist, MD - 12/12/2024 [place] [address] Cardiology Report Signed Patient: EITAN HURTADO MR#: [id number] : 1940 Acct:[id number] Age/Sex: 84 / M ADM Date: 12/11/24 Loc: CARD Attending Dr: Mireya Rojas NP Ordering Physician: Mireya Rojas NP Date of Service: 12/11/24 Procedure(s): CA echo doppler complete Accession Number(s): [id number] cc: Mireya Rojas NP; LEANDER CHANEL Patient Name: EITAN HURTADO MR#: [id number] : 1940 Exam Date: 12/11/2024 Ordering Doctor: [...] MARSHALL Signed By: 12/12/241936 DD/ 35 TD/TT: Floriculture Professor: [facility] HospitalRadiology Study observation (narrative)[facility] ECHO DOPPLER COMPLETEOrdered By: Radiologist Radiology on 33-31-3333HZHPEllett Memorial Hospital Work Phone: HbA1c (Bld) [Mass fraction]on 47-17-1438Bxjkzuxdfreunn and review of laboratory resultsAbECU Health North HospitalLaboratory - Hematology and Cell countson 18-05-3223JmV1h (Bld) [Mass fraction]6.60 %[facility] CBC W AUTO DIFF BLDon 14-67-8038Jmspqfbxz/100 WBC (Bld)0 %[facility] [facility] BASOPHILS # BLD [id number] [facility] DIFFERENTIAL METHOD BLDManualPerry County Memorial Hospital EOSINOPHIL # BLD [id number] Thomas Rutherford Hospital LYMPHOCYTES # BLD AUTO19.08HighPerry County Memorial Hospital MONOCYTES # BLD AUTO0.69NINF [facility] NEUTROPHILS # BLD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 disease is present without focal protrusion or neural impingement. MR/MR cervical spine wo con IMPRESSION: 1. C5-C6 marked central canal narrowing secondary to mild/moderate diffuse disc bulging and degenerative facet arthropathy. 2. Multilevel mild-moderate foramen narrowing secondary to degenerative disc disease and facet arthropathy. Electronically authenticated by: ALYSHA HERNANDEZ Date: 08/02/2024 12:13 Dictated By: Alysha Hernandez M.D. Signed By: 08/02/24 1215 DD/ 1213 TD/TT: Floriculture Professor: KATHERINE HealthcareRadiology Study observation (narrative)[facility] Cervical spine WO contrastOrdered By: Radiologist Radiology on 23-92-2574ZUZT ITT EXIM Work Phone: XR CERVICAL SPINE 5Von [id number] [address] XRay Report Signed Patient: EITAN HURTADO MR#: [id number] : 1940 Acct:[id number] Age/Sex: 84 / M ADM Date: 07/09/24 Loc: RAD Attending Dr: Fan Joyner [employer] Ordering Physician: Fan Joyner NP Date of Service: 07/09/24 Procedure(s): XR cervical spine 5V Accession Number(s): [id number] cc: ABELARDO CHANEL Anna NP [address] [place] [id number] Patient Name: EITNA HURTADO MRN: [id number] date: 1940 Sex: M Assigned Patient Location: RAD Current Patient Location: PM Accession/Order Number: [id number] Exam Date: 07/09/2024 14:47 Report Date: 07/13/2024 08:14 At the request of: FAN JOYNER Procedure: XR cervical spine 5V EXAMINATION: XR cervical spine 5V HISTORY: Cervical Spondylosis, Radiculopathy COMPARISON: No relevant comparison available. FINDINGS: BONES: Normal alignment with no acute fracture or spondylolisthesis. Moderate to severe diffuse degenerative spondylosis and facet osteoarthropathy DISC SPACES: Normal. No significant disc height narrowing, subluxation, or endplate abnormality. PARASPINOUS: Negative. No paraspinous abnormality is seen. OTHER: Negative. XR/XR cervical spine 5V IMPRESSION: Moderate to severe degenerative change Electronically authenticated by: KIANA WHITTINGTON Date: 07/13/2024 08:14 Dictated By: Kiana Whittington M.D. Signed By: 07/13/24815 DD/ 3 TD/TT: Floriculture Professor:TBHRadiology, Radiologist, MD - 07/13/2024 [place] [address] XRay Report Signed Patient: EITAN HURTADO MR#: [id number] : 1940 Acct:[id number] Age/Sex: 84 / M ADM Date: 07/09/24 Loc: [facility] Attending Dr: Fan Joyner NP Ordering Physician: Fan Joyner NP Date of Service: 07/09/24 Procedure(s): XR cervical spine 5V Accession Number(s): [id number] cc: ABELARDO CHANELtz,Fan [employer] [facility] [place] [id number] Patient Name: EITAN HURTADO MRN: [facility]:[id number] date: 1940 Sex: M Assigned Patient Location: [facility] Current Patient Location: Accession/Order Number: [id number] Exam Date: 07/09/2024 14:47 Report Date: 07/13/2024 08:14 At the request of: FAN JOYNER Procedure: XR cervical spine 5V EXAMINATION: XR cervical spine 5V HISTORY: Cervical Spondylosis, Radiculopathy COMPARISON: No relevant comparison available. FINDINGS: BONES: Normal alignment with no acute fracture or spondylolisthesis. Moderate to severe diffuse degenerative spondylosis and facet osteoarthropathy DISC SPACES: Normal. No significant disc height narrowing, subluxation, or endplate abnormality. PARASPINOUS: Negative. No paraspinous abnormality is seen. OTHER: Negative. XR/XR cervical spine 5V IMPRESSION: Moderate to severe degenerative change Electronically authenticated by: KIANA WHITTINGTON Date: 07/13/2024 08:14 Dictated By: Kiana Whittington M.D. Signed By: 07/13/24815 DD/ 3 TD/TT: Floriculture Professor: KATHERINE HealthcareRadiology Study observation (narrative)[facility]OM HealthcareXR CERVICAL SPINE 5VOrdered By: Radiologist Radiology on 55-92-3908ICPH Healthcare Work Phone: XR LUMBAR SPINE 2 OR 3Von [id number] [address] XRay Report Signed Patient: EITAN HURTADO MR#: [id number] : 1940 Acct:[id number] Age/Sex: 83 / M ADM Date: 11/14/23 Loc: RAD Attending Dr: Shaikh Holly Carrillo Ordering Physician: Shaikh Gerardo Barrera Date of Service: 11/14/23 Procedure(s): XR lumbar spine 2-3V Accession Number(s): [id number] cc: Shaikh Gerardo Barrera [address] [address] Patient Name: EITAN HURTADO MRN: [id number] date: 1940 Sex: M Assigned Patient Location: [facility] Current Patient Location: Accession/Order Number: [id number] Exam Date: 11/14/2023 16:37 Report Date: 11/15/2023 13:11 At the request of: SHAIKH HOLLY Procedure: XR lumbar spine 2-3V EXAM: XR lumbar spine 2-3V HISTORY: 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 TECHNIQUE: 2 views Findings/impression: Satisfactory alignment. Maintained vertebral body heights. Maintained disc spaces. Multilevel endplate degenerative changes and facet arthropathy of the lumbar spine, most prominent from L4 to S1. No acute fracture or significant subluxation. Scattered calcified atherosclerotic disease of the aorta. Electronically authenticated by: SHEREEN PORTILLO Date: 11/15/2023 13:11 Dictated By: Shereen Portillo M.D. Signed By: 11/15/23 1313 DD/ 1311 TD/TT: Floriculture Professor:TBHRadiology, Radiologist, MD - 11/15/2023 [place] [address] XRay Report Signed Patient: EITAN HURTADO MR#: [id number] : 1940 Acct:[id number] Age/Sex: 83 / M ADM Date: 11/14/23 Loc: RAD Attending Dr: Shaikh Holly Carrillo Ordering Physician: Shaikh Gerardo Barrera Date of Service: 11/14/23 Procedure(s): XR lumbar spine 2-3V Accession Number(s): [id number] cc: Shaikh Gerardo Barrera [address] [address] Patient Name: EITAN HURTADO MRN: [id number] date: 1940 Sex: M Assigned Patient Location: [facility] Current Patient Location: Accession/Order Number: [id number] Exam Date: 11/14/2023 16:37 Report Date: 11/15/2023 13:11 At the request of: SHAIKH HOLLY Procedure: XR lumbar spine 2-3V EXAM: XR lumbar spine 2-3V HISTORY: 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 TECHNIQUE: 2 views Findings/impression: Satisfactory alignment. Maintained vertebral body heights. Maintained disc spaces. Multilevel endplate degenerative changes and facet arthropathy of the lumbar spine, most prominent from L4 to S1. No acute fracture or significant subluxation. Scattered calcified atherosclerotic disease of the aorta. Electronically authenticated by: SHEREEN PORTILLO Date: 11/15/2023 13:11 Dictated By: Shereen Portillo M.D. Signed By: 11/15/231312 DD/ 10 TD/TT: Floriculture Professor: [facility] HealthcareRadiology Study observation (narrative)NOM HealthcareXR LUMBAR SPINE 2 OR 3VOrdered By: Radiologist Radiology on 85-37-3235YLAU [facility] Work Phone: comprehensive metabolic 2000 panelon 97-12-3458Msaqvrg [Mass/Vol]4.6 g/dL3.9 - 4.9 g/dLCollins ClinicALP [Catalytic activity/Vol]93 U/L38 - 113 U/LCleveland ClinicALT [Catalytic activity/Vol]13 U/L10 - 54 U/L Collins ClinicAnion gap [Moles/Vol]9 mmol/L9 - 18 mmol/LCleveland ClinicAST [Catalytic activity/Vol]16 U/L14 - 40 U/LCleveland ClinicBilirubin [Mass/Vol]0.6 mg/dL0.2 - 1.3 mg/dLClepremier health atrium medical center ClinicCalcium [Mass/Vol]10.0 mg/dL8.5 - 10.2 mg/dLClepremier health atrium medical center ClinicChloride [Moles/Vol]103 mmol/L97 - 105 mmol/LCleveland ClinicCO2 [Moles/Vol]29 mmol/L22 - 30 mmol/LCleveland ClinicCreatinine [Mass/Vol]1.04 mg/dL0.73 - 1.22 mg/dLCleTrumbull Regional Medical CenterEstimated Glomerular Filtration Rate70 mL/min/1.73m>=60 mL/min/1.73mCleveland ClinicGlucose [Mass/Vol]168 mg/dGDkwe02 - 99 mg/dLWvumedicine Barnesville HospitalPotassium [Moles/Vol]4.5 mmol/L3.7 - 5.1 mmol/LCleveland ClinicProtein [Mass/Vol]6.8 g/dL6.3 - 8.0 g/dL Collins ClinicSodium [Moles/Vol]141 mmol/L136 - 144 mmol/LCleveland ClinicUrea nitrogen [Mass/Vol]23 mg/dL9 - 24 mg/dLWvumedicine Barnesville HospitalLD LACTATE DEHYDROon 80-54-1746NOD [Catalytic activity/Vol]193 U/L135 - 225 U/LCleveland ClinicURIC ACID BLOODon 22-78-7829Cwmmv [Mass/Vol]4.9 mg/dL4.0 - 8.1 mg/dLWvumedicine Barnesville Hospital ECHOCARDIO M/2D COMPLETEon 02-89-6348AXITNABGOH M/2D COMPLETEPatient: EITAN HURTADO Exam Date: 07/31/2022 : 1940 Gender:M Ordering : SUZANNE MIREYA [facility] Admission #: [id number] Family : Order #: [id number] CLICK HERE TO VIEW EXAM ECHOCARDIOGRAM REPORT [...] (Peak Des): 3.25 cm2, 3.25 cm2 Deceleration [place]: 0.65 m/s2 Pressure Half-Time: 897.66 ms Peak [...] by: Gisela Mendes M.D. on 08/01/2022 at 15:23Wilson HealthGLYCOHEMOGLOBIN A1Con 59-73-4133OXO RECOMMENDATIONSEE BELOWWilson HealthComment on above:Result Comment: ADA RECOMMENDED LIMIT 4.0 - 6.0 ADA THERAPEUTIC TARGET < 7.0 ACTION SUGGESTED > 7.0Performed By: #### A1C #### [facility] [address] [place] [address] Dr. Estrada CarpenterGlucose [Mass/Vol]206 mg/dLWilson HealthComment on above:Performed By: #### A1C #### [facility] [address] [place] [address] Dr. Estrada CarpenterHbA1c (Bld) [Mass fraction]8.8 %Critically high4.5-6.2The [facility] HospitalComment on above:Performed By: #### A1C #### [facility] [address] [place] [address] Dr. Estrada CarpenterPROF CHEM 8 (BAS METB)on 94-28-7862Domxy gap [Moles/Vol]10.7 mmol/LNormalThe [facility] HospitalComment on above:Performed By: #### BMP #### [facility] [address] [place] [address] [address] Estrada CarpenterCalcium [Mass/Vol]8.8 mg/dLNoal8.5-10.1[facility] Comment on above:Performed By: #### BMP #### [facility] [address] [place] [address] Dr. Estrada CarpenterChloride [Moles/Vol]103 mmol/TVjbreb63-856Ara [facility] Comment on above:Performed By: #### BMP #### [facility] [address] [place] [address] [address] Estrada CarpenterCO2 [Moles/Vol]26.4 mmol/LLwbvje57.0-32.0The [facility] Comment on above:Performed By: #### BMP #### [facility] [address] [place] [address] [address] Estrada CarpenterCreatinine [Mass/Vol]0.89 mg/dLNormal0.70-1.30The [facility] HospitalComment on above:Performed By: #### BMP #### [facility] [address] [place] [address] [address] Estrada EncinasGFR-AF AZERBAIJANI>60Normal>=60The [facility] HospitalComment on above:Performed By: #### BMP #### [facility] [address] [place] [address] [address] Estrada EncinsaGFR-NON AF AZERBAIJANI>60Normal>=60The [facility] HospitalComment on above:Performed By: #### BMP #### [facility] [address] [place] [address] [address] Estrada CarpenterGlucose [Mass/Vol]167 mg/dLCritically gvnp25-069Wjo [facility] HospitalComment on above:Performed By: #### BMP #### [facility] [address] [place] [address] [address] Estrada CarpenterPotassium [Moles/Vol]4.1 mmol/LNormal3.5-5.1The [facility] Comment on above:Performed By: #### BMP #### [facility] [address] [place] [address] [address] Estrada CarpenterSodium [Moles/Vol]136 mmol/SHalblu073-575Egl [facility] Comment on above:Performed By: #### BMP #### [facility] [address] [place] [address] [address] Estrada CarpenterUrea nitrogen [Mass/Vol]17.0 mg/dLNormal7.0-18.0The [facility] HospitalComment on above:Performed By: #### BMP #### [facility] [address] [place] [address] [address] Estrada Pop nitrogen/Creatinine [Mass ratio]19.1 mg/mgWilson HealthComment on above:Performed By: #### BMP #### [facility] [id number] Estrada Arceo abdomen limitedon 09-97-1831RD abdomen limitedTHE [facility] [place] [address] [place] [address] Ultrasound Report Signed with Addenda Patient: Eitan Hurtado MR#: [id number] : 1940 Acct:[id number] Age/Sex: 82 / M ADM Date: 05/08/22 Loc: Room: Type: [facility] Attending Dr: Shaikh Holly CARIAS Ordering [...] the prior colostomy site. Impression dictated by: Jarvis Mchugh Jr.ORachel05/08/2022 6:39 PM Dictation Location: [place] [address] Addendum Dictated By: Tan Zapien Jr DO [...] Zapien Jr., D.O.05/08/2022 5:59 PM Dictation Location: [facility]09 Tech: Justa Edmonds Transcribed By: DEIDRA 05/08/221758 Dictated By: Tan Zapien Jr, DO 05/08/22 174 Signed By: 05/08/22 175NoGreene Memorial HospitalUS scrotumon 59-57-0845VR [facility] [place] [address] [place] [address] Ultrasound Report Signed Patient: Eitan Hurtado MR#: [id number] : 1940 Acct:[id number] Age/Sex: 82 / M ADM Date: 05/08/22 Loc: Room: Type: [facility] Attending Dr: Shaikh Holly CARIAS Ordering [...] Zapien Jr., D.O.05/08/2022 6:16 PM Dictation Location: RADIO--09 Tech: Jutsa Edmonds Transcribed By: DEIDRA 05/08/221815 Dictated By: Tan Zapien Jr, 05/08/221811 Signed By: 05/08/221815[facility] W MANUAL DIFFon 71-49-3618UHLUQKSM LYMPH #NormalOhiohealth Grady Memorial Hospital HospitalComment on above:Performed By: #### CBCDEEPTI #### [facility] [address] [place] [address] [address] Estrada CarpenterATYPICAL LYMPH %NormalThe Crawford HospitalComment on above: Performed By: #### CBCDEEPTI #### [facility] [address] [place] [address] Dr. Estrada Bianchi #0.0 103/ulNormal0.0-0.3The Crawford HospitalComment on above:Performed By: #### ZELALEM #### [facility] [address] [place] [address] Dr. Estrada Bianchi %0 %Normal0-5The Crawford HospitalComment on above:Performed By: #### ZELALEM #### [facility] [address] [place] [address] Dr. Estrada Bess #0.00 103/ulNormal0.00-0.10The [facility] HospitalComment on above:Performed By: #### ZELALEM #### [facility] [address] [place] [address] Dr. Estrada Bess %0.0 %Critically low0.2-2.0The Crawford HospitalComment on above:Performed By: #### CBCDEEPTI #### [facility] [address] [place] [address] Dr. Estrada Pressley #NormalThe Crawford HospitalComment on above:Performed By: #### CBCDEEPTI #### [facility] [address] [place] [address] Dr. Estrada Pressley %NormalCleveland Clinic FoundationComment on above:Performed By: #### CBCDEEPTI #### [facility] [address] [place] [address] Dr. Estrada CarpenterCORRECTED WBCNormal4.0-11.0The [facility] HospitalComment on above: Performed By: #### CBCDEEPTI #### [facility] [address] [place] [address] Dr. Estrada Butcher #0.00 103/ulNormal0.00-0.70The [facility] HospitalComment on above:Performed By: #### CBCDEEPTI #### [facility] [address] [place] [address] Dr. Estrada Butcher%0.0 %Critically low0.9-7.0The [facility] HospitalComment on above:Performed By: #### ZELALEM #### [facility] [address] [place] [address] Dr. Estrada CarpenterHCT44.2 %Nnqdxo27.0-54.0The [facility] HospitalComment on above: Performed By: #### ZELALEM #### [facility] [address] [place] [address] Dr. Estrada CarpenterHGB13.8 g/dlCritically low14.0-18.0The [facility] HospitalComment on above:Performed By: #### ZELALEM #### [facility] [address] [place] [address] Dr. Estrada Mancini #14.11 103/ulCritically high1.20-3.80The [facility] on above:Performed By: #### ZELALEM #### [facility] [address] [place] [address] Dr. Estrada Mancini%72.0 %Critically high20.5-60.0The [facility] HospitalComment on above:Performed By: #### CBCDEEPTI #### [facility] [address] [place] [address] Dr. Estrada CarpenterMCH31.3 taJauptz12.9-34.0The [facility] HospitalComment on above: Performed By: #### CBCDEEPTI #### [facility] [address] [place] [address] Dr. Estrada StarkHC31.2 g/ceFrroui23.9-35.2The [facility] HospitalComment on above:Performed By: #### ZELALEM #### [facility] [address] [place] [address] [address] Estrada StarkV100.2 fLCritically high80.0-94.0The [facility] HospitalComment on above:Performed By: #### ZELALEM #### [facility] [address] [place] [address] Dr. Estrada PetersonOCYTE #NormalThe Crawford HospitalComment on above: Performed By: #### ZELALEM #### [facility] [address] [place] [address] Dr. Estrada PetersonOCYTE %NormalThe [facility] HospitalComment on above: Performed By: #### ZELALEM #### [facility] [address] [place] [address] Dr. Estrada Benites#0.78 103/ulNormal0.30-0.80The [facility] HospitalComment on above:Performed By: #### ZELALEM #### [facility] [address] [place] [address] Dr. Estrada Benites%4.0 %Normal1.7-12.0The [facility] HospitalComment on above: Performed By: #### ZELALEM #### [facility] [address] [place] [address] Dr. Estrada McgowanV12.1 fLNormal9.5-13.5The [facility] HospitalComment on above: Performed By: #### ZELALEM #### [facility] [address] [place] [address] Dr. Estrada Aponte #NormalThe Crawford HospitalComment on above:Performed By: #### ZELALEM #### [facility] [address] [place] [address] Dr. Estrada Aponte %NormalThe [facility] HospitalComment on above:Performed By: #### ZELALEM #### [facility] [address] [place] [address] Dr. Estrada CrawfordBCNormalThe [facility] HospitalComment on above:Performed By: #### JENNIFERDEEPTI #### [facility] [address] [address] [address] Estrada CarpenterPLT166 103/umVkhqgo629-978Grl [facility] on above: Performed By: #### CBCDEEPTI #### [facility] [address] [address] [address] Estrada CarpenterRBC4.41 106/ulCritically low4.70-6.10The [facility] HospitalCommarshfield medical center on above:Performed By: #### CBCDEEPTI #### [facility] [address] [address] [address] Estrada CarpenterRDW14.9 %Ljlfww07.0-15.0The [facility] on above: Performed By: #### ZELALEM #### [facility] [address] [place] [address] Dr. Estrada JonesG #4.70 103/ulNormal1.40-6.50[facility] on above:Performed By: #### CBCDEEPTI #### [facility] [address] [place] [address] Dr. Estrada Altamirano %24.0 %Critically low43.0-75.0The [facility] on above:Performed By: #### CBCDEEPTI #### [facility] [address] [place] [address] Dr. Estrada CarpenterWBC19.6 103/ulCritically high4.0-11.0The [facility] on above:Performed By: #### CBCDEEPTI #### [facility] [address] [place] [address] Dr. Estrada CarpenterGLYCOHEMOGLOBIN A1Con 48-86-6783MJN RECOMMENDATIONSEE BELOWNoMemorial HospitalCommarshfield medical center on above:Result Comment: ADA RECOMMENDED LIMIT 4.0 - 6.0 ADA THERAPEUTIC TARGET < 7.0 ACTION SUGGESTED > 7.0Performed By: #### A1C #### [facility] [address] [place] [address] Dr. Estrada CarpenterGlucose [Mass/Vol]151 mg/dLNormalThe [place] HospitalComment on above:Performed By: #### A1C #### [facility] [address] [address] [address] Estrada CarpenterHbA1c (Bld) [Mass fraction]6.9 %Critically high4.5-6.2The The Jewish Hospitalment on above:Performed By: #### A1C #### [facility] [address] [address] [address] Estrada CarcamoID PROFILEon 26-79-5478DCJK-HDL RATIO NORMSEE BELOWWilson HealthComment on above:Result Comment: 3.3 - 4.4 LOW RISK 4.4 - 7.1 AVERAGE RISK 7.1 - 11.0 MODERATE RISK >11.0 HIGH RISKPerformed By: #### CMP, LIPID #### [facility] [address] [address] [address] Estrada CarpenterCholesterol [Mass/Vol]158 mg/dLNormal<=200The [facility] Comment on above:Performed By: #### CMP, LIPID #### [facility] [address] [address] [address] Estrada CarpenterCholesterol in HDL [Mass/Vol]42 mg/bSSiohni01-78Bfc [facility] on above:Performed By: #### CMP, LIPID #### [facility] [address] [address] [address] Estrada CarpenterCholesterol in LDL [Mass/Vol]85.0 mg/dLWilson HealthComment on above:Performed By: #### CMP, LIPID #### [facility] [address] [address] [address] Estrada Jasonesterfela.total/Cholesterol in HDL [Mass ratio]3.8 {ratio} NormalThe [facility] HospitalCommarshfield [facility] center on above:Performed By: #### CMP, LIPID #### [facility] [address] [address] [address] Estrada CarpenterHDL NORMAL> or = 60 mg/dl - LOW CARDIOVASCULAR RISK <40 mg/dl - HIGH CARDIOVASCULAR RISKWilson HealthComment on above:Performed By: #### CMP, LIPID #### [facility] [address] [place] [address] Dr. Estrada Loya CALC NORMALSEE BELOWWilson HealthComment on above:Result Comment: <100 mg/dl OPTIMAL 100 - 129 mg/dl NEAR OR ABOVE OPTIMAL 130 - 159 mg/dl BORDERLINE HIGH 160 - 189 mg/dl HIGH >190 mg/dl VERY HIGH Performed By: #### CMP, LIPID #### [facility] [address] [address] [address] Estrada CarpenterTriglyceride [Mass/Vol]155 mg/dLCritically high<=150The [facility] on above:Performed By: #### CMP, LIPID #### [facility] [address] [place] [address] Dr. Estrada CarpenterVLDL CALC31.0 mg/dLNoMercy Health St. Elizabeth Boardman HospitalComment on above: Performed By: #### CMP, LIPID #### [facility] [address] [place] [address] Dr. Estrada CarpenterPROF 14(COMP METB)on 84-09-8637Eqgshqo [Mass/Vol]3.8 g/dLNormal 3.4-5.0The [facility] on above:Performed By: #### CMP, LIPID #### [facility] [address] [place] [address] Dr. Estrada CarpenterAlbumin/Globulin [Mass ratio]1.3 {ratio}NormalThe [facility] HospitalCommarshfield medical center on above:Performed By: #### CMP, LIPID #### [facility] [address] [place] [address] Dr. Estrada Au [Catalytic activity/Vol]92 U/YJtppem84-568Ibf [facility] on above:Performed By: #### CMP, LIPID #### [facility] [address] [place] [address] Dr. Estrada Gunderson [Catalytic activity/Vol]26 U/PRsvtle57-18Fpv [facility] on above:Performed By: #### CMP, LIPID #### [facility] [address] [address] [address] Estrada Porrason gap [Moles/Vol]11.2 mmol/LNormalC[facility] Clinic Foundation Comment on above:Performed By: #### CMP, LIPID #### [facility] [address] [address] [address] Estrada CarpenterAST [Catalytic activity/Vol]17 U/SPiizof11-59Twy [facility] HospitalComment on above:Performed By: #### CMP, LIPID #### [facility] [address] [address] [address] Estrada CarpenterBilirubin [Mass/Vol]0.5 mg/dLNormal0.2-1.0[facility] Comment on above:Performed By: #### CMP, LIPID #### [facility] [address] [place] [address] Dr. Estrada CarpenterCalcium [Mass/Vol]8.4 mg/dLCritically low8.5-10.1The [facility] HospitalComment on above:Performed By: #### CMP, LIPID #### [facility] [address] [place] [address] Dr. Estrada CarpenterChloride [Moles/Vol]102 mmol/ZGaeorv42-019CoaCleveland Clinic Foundation Comment on above:Performed By: #### CMP, LIPID #### [facility] [address] [place] [address] Dr. Estrada CarpenterCO2 [Moles/Vol]29.3 mmol/AMukdeg83.0-32.0[facility] Comment on above:Performed By: #### CMP, LIPID #### [facility] [address] [place] [address] Dr. Estrada CarpenterCreatinine [Mass/Vol]0.89 mg/dLNormal0.70-1.30The [facility] HospitalComment on above:Performed By: #### CMP, LIPID #### [facility] [address] [place] [address] Dr. Estrada EncinasGFR-AF AZERBAIJANI>60Normal>=60The [facility] HospitalComment on above:Performed By: #### CMP, LIPID #### [facility] [address] [address] [address] Estrada EncinasGFR-NON AF AZERBAIJANI>60Normal>=60The [facility] HospitalComment on above:Performed By: #### CMP, LIPID #### [facility] [address] [address] [address] Estrada CarpenterGlobulin (S) [Mass/Vol]3.0 g/dLNormalThSt. Anthony's HospitalComment on above:Performed By: #### CMP, LIPID #### [facility] [address] [place] [address] Dr. Estrada CarpenterGlucose [Mass/Vol]145 mg/dLCritically xolj12-895Dup [facility] HospitalComment on above:Performed By: #### CMP, LIPID #### [facility] [address] [place] [address] Dr. Estrada CarpenterPotassium [Moles/Vol]4.5 mmol/LNormal3.5-5.1The [facility] Comment on above:Performed By: #### CMP, LIPID #### [facility] [address] [place] [address] Dr. Estrada CarpenterProtein [Mass/Vol]6.8 g/dLNormal6.1-8.2The [facility] Comment on above:Performed By: #### CMP, LIPID #### [facility] [address] [address] [address] Estrada CarpenterSodium [Moles/Vol]138 mmol/QRkzmry353-782Opz [facility] Comment on above:Performed By: #### CMP, LIPID #### [facility] [address] [place] [address] Dr. Estrada CarpenterUrea nitrogen [Mass/Vol]15.0 mg/dLNormal7.0-18.0The [facility] HospitalComment on above:Performed By: #### CMP, LIPID #### [facility] [address] [place] [address] Dr. Estrada CarpenterUrea nitrogen/Creatinine [Mass ratio]16.9 mg/mgNormalThSt. Anthony's HospitalComment on above:Performed By: #### CMP, LIPID #### [facility] [address] [address] [address] Estrada Gaming METABOLIC PANELon 08-70-7590Dvmjktf [Mass/Vol]8.9 mg/dL Normal8.6-10.3The The Jewish HospitalComment on above:Order Comment: No: Do not add to previous drawPerformed By: #### 86317, 17559 ####[facility] [place] [address], [place] Chloride [Moles/Vol]107 mmol/LBfxkqr79-742Sjj The [facility] HospitalComment on above:Order Comment: No: Do not add to previous drawPerformed By: #### 93566, 21295 ####[facility] [place] [address], USACO2 [Moles/Vol]29 mmol/HNtngiz59-33Qjx The [facility] HospitalComment on above:Order Comment: No: Do not add to previous drawPerformed By: #### 42728, 16921 ####[facility] [place] [address], USACreatinine [Mass/Vol]0.79 mg/dLNormal 0.70-1.30The The [facility] HospitalComment on above:Order Comment: No: Do not add to previous drawPerformed By: #### 39574, 59255 ####[facility] [place] [address], USAGFR/1.73 sq M.predicted among blacks MDRD (S/P/Bld) [Vol rate/Area]mL/min/{1.73_m2}Normal>60 The The [facility] HospitalComment on above:Order Comment: No: Do not add to previous drawResult Comment: Calculation may not be valid for patients over 70 yearsPerformed By: #### 64339, 50685 ####[facility] [place] [address], USAGFR/1.73 sq M.predicted among non-blacks MDRD (S/P/Bld) [Vol rate/Area]mL/min/{1.73_m2}Normal>60The The [facility] HospitalComment on above:Order Comment: No: Do not add to previous drawResult Comment: Calculation may not be valid for patients over 70 yearsPerformed By: #### 87289, 33489 ####[facility] [place] [address], USAGlucose [Mass/Vol]147 mg/dLHigh 70-100The The [facility] HospitalComment on above:Order Comment: No: Do not add to previous drawPerformed By: #### 43379, 48791 ####[facility] [facility] [address], USAPotassium [Moles/Vol]4.1 mmol/LNormal3.5-5.1The The [facility] HospitalComment on above:Order Comment: No: Do not add to previous drawPerformed By: #### 18558, 02999 ####[facility] [address], USASodium [Moles/Vol]139 mmol/ZCvnnkh139-557Bws The [facility] HospitalComment on above:Order Comment: No: Do not add to previous draw Performed By: #### 44582, 46982 ####[facility] [address], USAUrea nitrogen [Mass/Vol]22 mg/dLNormal7-25The The [facility] HospitalComment on above:Order Comment: No: Do not add to previous drawPerformed By: #### 06354, 19131 ####[facility] [facility] [place] [address], USACBC COMPLETE BLOOD COUNTon 72-48-1718Qjrncloustv distribution width (RBC) [Ratio]14.9 %Zkzmzl93.5-15.0The The [facility] HospitalComment on above:Order Comment: No: Do not add to previous drawPerformed By: #### [id number] ####[facility] [facility] [place] [address], [facility] SERVICESHematocrit (Bld) [Volume fraction] 38.1 %Low39.0-50.0The The [facility] HospitalComment on above:Order Comment: No: Do not add to previous drawPerformed By: #### 44264 ####[facility] [facility] [place] [address], [facility] SERVICESHemoglobin (Bld) [Mass/Vol]12.2 g/dLLow13.0-17.0The The [facility] HospitalComment on above:Order Comment: No: Do not add to previous drawPerformed By: #### 40709 ####[facility] [facility] [place] [address], [facility] MCH (RBC) [Entitic mass]31.0 zyPachby31.0-33.0The The [facility] HospitalComment on above:Order Comment: No: Do not add to previous drawPerformed By: #### [id number] ####[facility] [facility] [place] [address], [facility] SERVICESMCHC (RBC) [Mass/Vol]32.0 g/ePNpgqfa34.0-35.0The The [facility] HospitalComment on above:Order Comment: No: Do not add to previous drawPerformed By: #### 76806 ####[facility] [facility] [place] [address], [facility] SERVICESMCV (RBC) [Entitic vol]96.9 xVKquhuo97.0-98.0 The The [facility] HospitalComment on above:Order Comment: No: Do not add to previous drawPerformed By: #### 28717 ####[facility] [place] [address].[place] [address], USANucleated RBC/100 WBC (Bld) [Ratio]0 %Normal0-0The The [facility] HospitalComment on above:Order Comment: No: Do not add to previous drawPerformed By: #### 07230 ####[facility] [place] [address], [place] PLAT SBO408 10*3/jEFzbxhp145-050Kdg The [facility] HospitalComment on above:Order Comment: No: Do not add to previous drawPerformed By: #### 98478 ####[facility] [place] [address], [facility] RBC (Bld) [#/Vol]3.93 10*6/uLLow4.20-5.70The [facility] Comment on above:Order Comment: No: Do not add to previous drawPerformed By: #### 66236 ####[facility] [facility] [place] [address], [facility] SERVICESWBC (Bld) [#/Vol]24.04 10*3/uLHigh4.00-10.60The The [facility] HospitalComment on above:Order Comment: No: Do not add to previous draw Performed By: #### 32930 ####[facility] [place] [address], [facility] SERVICESMAGNESIUM BLOODon 25-05-1087Nrcznatup [Mass/Vol]2.0 mg/dLNormal1.9-2.7The The [facility] HospitalComment on above:Order Comment: No: Do not add to previous drawPerformed By: #### 88457, 68880 ####[facility] [place] [address], [facility] POC GLUCOSE LABon 47-71-9365Zlqtxzi [Mass/Vol]150 mg/pHGtgv62-441Win The [facility] HospitalComment on above:Performed By: #### 96535 ####[facility] [facility] [place] [address], [facility] SERVICESGlucose [Mass/Vol]133 mg/uPEbyf90-410Whg The [facility] HospitalComment on above:Performed By: #### 29572 ####[facility] [facility] [place] [address], [facility] SERVICESPO SARS COV2 ANTIGEN NEGATIVEon 08-31-2021 POC SARS COV2 ANTIGEN NEGNegativeNormalNEGATIVEThe The [facility] HospitalComment on above:Result Comment: Negative results from patients with symptom onset beyond [...] of clinicalsigns and symptoms consistent with COVID-19.The [employer] COVID-19 Ag Card is a lateral flow immunoassay intended forthe qualitative detection of nucleocapsid protein antigen epxoOGXT-DsW-0 in direct nasal swabs from individuals within [...] of Waiver, Certificate of Compliance, or Certificate ofAccreditation.Performed By: #### 91622 ####[facility] [facility] [place] [address], [facility] SERVICESBASIC METABOLIC PANELon 89-72-1862Diutfrx [Mass/Vol]8.3 mg/dLLow 8.6-10.3The The [facility] HospitalComment on above:Order Comment: No: Do not add to previous drawPerformed By: #### 49033, 33411, 51910 ####[facility] [facility] [place] [address], [facility] Chloride [Moles/Vol]110 mmol/BZdzj51-640Ikc [facility] Comment on above:Order Comment: No: Do not add to previous drawPerformed By: #### 57122, 86908, 08271 ####[facility] [place] [address], USACO2 [Moles/Vol]23 mmol/MJnfnnp46-41Ihg The [facility] HospitalComment on above:Order Comment: No: Do not add to previous drawPerformed By: #### 56422, 62290, 66203 ####[facility] [place] [address], USACreatinine [Mass/Vol]0.83 mg/dL Normal0.70-1.30The The [facility] HospitalComment on above:Order Comment: No: Do not add to previous drawPerformed By: #### 60849, 62872, 90039 ####[facility] [place] [address], [place] GFR/1.73 sq M.predicted among blacks MDRD (S/P/Bld) [Vol rate/Area] mL/min/{1.73_m2}Normal>60The The [facility] HospitalComment on above:Order Comment: No: Do not add to previous drawResult Comment: Calculation may not be valid for patients over 70 yearsPerformed By: #### 99550, 08671, 50351 ####[facility] [place] [address], USAGFR/1.73 sq M.predicted among non-blacks MDRD (S/P/Bld) [Vol rate/Area]mL/min/{1.73_m2}Normal>60The [facility] Comment on above:Order Comment: No: Do not add to previous drawResult Comment: Calculation may not be valid for patients over 70 yearsPerformed By: #### 02500, 49638, 81414 ####[facility] [place] [address], USAGlucose [Mass/Vol]142 mg/fGRuld55-904Unh The [facility] HospitalComment on above:Order Comment: No: Do not add to previous draw Performed By: #### 69440, 42793, 77493 ####[facility] [place] [address], USAPotassium [Moles/Vol]3.4 mmol/LLow 3.5-5.1The The [facility] HospitalComment on above:Order Comment: No: Do not add to previous drawPerformed By: #### 62527, 40974, 16486 ####[facility] [place] [address], [place] Sodium [Moles/Vol]141 mmol/CZhqhwx347-781Dpx [facility] Comment on above:Order Comment: No: Do not add to previous drawPerformed By: #### 14493, 72516, 13780 ####[facility] [place] [address], USAUrea nitrogen [Mass/Vol]19 mg/dLNormal7-25The The [facility] HospitalComment on above:Order Comment: No: Do not add to previous drawPerformed By: #### 17468, 09720, 13597 ####[facility] [place] [address], USACBC COMPLETE BLOOD COUNTon 63-02-4912Xgizpnguwhv distribution width (RBC) [Ratio]14.6 %Normal 11.5-15.0The The [facility] HospitalComment on above:Order Comment: No: Do not add to previous drawPerformed By: #### 38802 ####[facility] [place] [address], [facility] SERVICESHematocrit (Bld) [Volume fraction]32.9 %Low39.0-50.0The The [facility] HospitalComment on above:Order Comment: No: Do not add to previous drawPerformed By: #### 83411 ####[facility] [place] [address], [facility] Hemoglobin (Bld) [Mass/Vol]11.0 g/dLLow13.0-17.0The The [facility] HospitalComment on above:Order Comment: No: Do not add to previous drawPerformed By: #### 17793 ####[facility] [facility] [address], [facility] (RBC) [Entitic mass]31.4 vaGfncvc93.0-33.0The The [facility] HospitalComment on above:Order Comment: No: Do not add to previous drawPerformed By: #### 65370 ####[facility] [facility] [place] [address], [facility] T[facility]QUAHHC (RBC) [Mass/Vol]33.4 g/wYZemzjx88.0-35.0 The The [facility] HospitalComment on above:Order Comment: No: Do not add to previous drawPerformed By: #### 58430 ####[facility] [facility] [place] [address], [facility]V (RBC) [Entitic vol] 94.0 xDZukmdc47.0-98.0The The [facility] HospitalComment on above: Order Comment: No: Do not add to previous drawPerformed By: #### 13582 ####[address] [place] [address], [facility] Nucleated RBC/100 WBC (Bld) [Ratio]0 %Normal0-0The The [facility] HospitalComment on above:Order Comment: No: Do not add to previous drawPerformed By: #### 00743 ####[facility] [place] [address].[place] [address], [facility] SERVICESPLAT BBK036 10*3/eGXcamwr670-800Rsv The [facility] HospitalComment on above:Order Comment: No: Do not add to previous drawPerformed By: #### 38446 ####[facility] [place] [address].[place] [address], [facility] SERVICESRBC (Bld) [#/Vol]3.50 10*6/uLLow4.20-5.70The The [facility] HospitalComment on above:Order Comment: No: Do not add to previous draw Performed By: #### 13832 ####[facility] [place] [address], [facility] SERVICESWBC (Bld) [#/Vol]17.28 10*3/uLHigh4.00-10.60The The [facility] HospitalComment on above:Order Comment: No: Do not add to previous drawPerformed By: #### 35465 ####[facility] [place] [address], [facility] SERVICESMAGNESIUM BLOODon 08-30-2021 Magnesium [Mass/Vol]1.8 mg/dLLow1.9-2.7The [facility] Comment on above:Order Comment: No: Do not add to previous drawPerformed By: #### 04272, 60799, 90794 ####[facility] [place] [address], [facility] SERVICESPHOSPHORUS BLOODon 40-04-7051Kgbcwdmmg [Mass/Vol]3.4 mg/dLNormal2.5-5.0The The [facility] HospitalComment on above:Order Comment: No: Do not add to previous drawPerformed By: #### 21081, 60939, 80953 ####[facility] [place] [address], [facility] POC GLUCOSE LABon 07-73-1768Ugstvcj [Mass/Vol]212 mg/iMFryz67-772Dux The [facility] HospitalComment on above:Performed By: #### 49339 ####[facility] [place] [address], [facility] SERVICESGlucose [Mass/Vol]146 mg/jUVzpe96-192Jcl The [facility] HospitalComment on above:Performed By: #### 21923 ####[facility] [place] [address], USAGlucose [Mass/Vol]164 mg/tEPave88-476Hht The [facility] HospitalComment on above:Performed By: #### 19120 ####[facility] [place] [address], [place] Glucose [Mass/Vol]145 mg/lMEenn93-916Cpb [facility] Comment on above:Performed By: #### 86210 ####[facility] [place] [address], USABASIC METABOLIC PANELon 08-29-2021 Calcium [Mass/Vol]8.2 mg/dLLow8.6-10.3The [facility] Comment on above:Order Comment: No: Do not add to previous drawPerformed By: #### 60915, 89373, 28203 ####[facility] [place] [address], USAChloride [Moles/Vol]111 mmol/FBnvj38-502Csy The [facility] HospitalComment on above:Order Comment: No: Do not add to previous drawPerformed By: #### 49198, 33690, 64957 ####[facility] [place] [address], USACO2 [Moles/Vol]21 mmol/L Yzcspu66-24Kbz The [facility] HospitalComment on above:Order Comment: No: Do not add to previous drawPerformed By: #### 78519, 81534, 56219 ####[facility] [place] [address], [place] Creatinine [Mass/Vol]0.70 mg/dLNormal0.70-1.30The The [facility] HospitalComment on above:Order Comment: No: Do not add to previous drawPerformed By: #### 32593, 18028, 98486 ####[facility] [place] [address], USAGFR/1.73 sq M.predicted among blacks MDRD (S/P/Bld) [Vol rate/Area]mL/min/{1.73_m2}Normal>60The The [facility] HospitalComment on above:Order Comment: No: Do not add to previous draw Result Comment: Calculation may not be valid for patients over 70 yearsPerformed By: #### 44759, 30499, 56943 ####[facility] [place] [address], USAGFR/1.73 sq M.predicted among non-blacks MDRD (S/P/Bld) [Vol rate/Area]mL/min/{1.73_m2}Normal>60The The [facility] HospitalComment on above:Order Comment: No: Do not add to previous draw Result Comment: Calculation may not be valid for patients over 70 yearsPerformed By: #### 83245, 84255, 13958 ####[facility] [facility] [address], USAGlucose [Mass/Vol]148 mg/sSFhet29-291Gtp The [facility] HospitalComment on above:Order Comment: No: Do not add to previous drawPerformed By: #### 96913, 01272, 24797 ####[facility] [facility] [address], USAPotassium [Moles/Vol]3.6 mmol/LNormal3.5-5.1The [facility] HospitalComment on above:Order Comment: No: Do not add to previous drawPerformed By: #### 23261, 33287, 56588 ####[facility] [place] [address], USASodium [Moles/Vol]140 mmol/UVwxzmp604-643Tmd [facility] HospitalComment on above:Order Comment: No: Do not add to previous drawPerformed By: #### 95365, 31544, 11751 ####[facility] [place] [address], [facility] SERVICESUrea nitrogen [Mass/Vol]19 mg/dLNormal7-25The [facility] HospitalComment on above:Order Comment: No: Do not add to previous drawPerformed By: #### 85809, 06033, 23987 ####[facility] [facility] [place] [address], [facility] CBC COMPLETE BLOOD COUNTon 98-50-6952Ndmpopvjpnb distribution width (RBC) [Ratio]14.6 %Ipgrcb11.5-15.0The [facility] HospitalComment on above:Order Comment: No: Do not add to previous drawPerformed By: #### 72444 ####[facility] [place] [address], [facility] Hematocrit (Bld) [Volume fraction]33.1 %Low39.0-50.0The The [facility] HospitalComment on above:Order Comment: No: Do not add to previous draw Performed By: #### 25208 ####[facility] [facility] [facility] [place] [address], [facility] SERVICESHemoglobin (Bld) [Mass/Vol]10.7 g/dLLow13.0-17.0The The Jewish HospitalComment on above:Order Comment: No: Do not add to previous drawPerformed By: #### [id number] ####[facility] [facility] [place] [address], [facility] SERVICESMCH (RBC) [Entitic mass]31.3 pg Wgtsvr45.0-33.0The The [facility] HospitalComment on above:Order Comment: No: Do not add to previous drawPerformed By: #### [id number] ####[facility] [place] [address].[place] [address], [facility] SERVICESMCHC (RBC) [Mass/Vol]32.3 g/zHBmyppr19.0-35.0The The [facility] HospitalComment on above:Order Comment: No: Do not add to previous drawPerformed By: #### [id number] ####[facility] [place] [address], [facility] MCV (RBC) [Entitic vol]96.8 bCBhzdon16.0-98.0The The [facility] HospitalComment on above:Order Comment: No: Do not add to previous drawPerformed By: #### [id number] ####[facility] [facility] [place] [address], [facility] SERVICESNucleated RBC/100 WBC (Bld) [Ratio]0 %Normal0-0The The [facility] HospitalComment on above:Order Comment: No: Do not add to previous drawPerformed By: #### [id number] ####[facility] [facility] [place] [address], USAPLAT BPW824 10*3/tYLpojls999-802Yem The [facility] HospitalComment on above:Order Comment: No: Do not add to previous drawPerformed By: #### [id number] ####[facility] [facility] [place] [address], [facility] SERVICESRBC (Bld) [#/Vol]3.42 10*6/uLLow 4.20-5.70The The [facility] HospitalComment on above:Order Comment: No: Do not add to previous drawPerformed By: #### [id number] ####[facility] [facility] [place] [address], [facility] SERVICESWBC (Bld) [#/Vol]16.20 10*3/uLHigh4.00-10.60The The [facility] HospitalComment on above: Order Comment: No: Do not add to previous drawPerformed By: #### [id number] ####[facility] [facility] [place] [address], [facility] MAGNESIUM BLOODon 73-06-4780Lubpategu [Mass/Vol]1.8 mg/dLLow1.9-2.7The The [facility] HospitalComment on above:Order Comment: No: Do not add to previous drawPerformed By: #### 04858, 29034, 96569 ####[facility] [place] [address], USAPHOSPHORUS BLOODon 20-24-8863Lvygtqnwy [Mass/Vol]3.1 mg/dLNormal2.5-5.0The The [facility] HospitalComment on above:Order Comment: No: Do not add to previous draw Performed By: #### 60135, 72914, 37321 ####[facility] [place] [address], USAPOC GLUCOSE LABon 08-29-2021 Glucose [Mass/Vol]187 mg/lXFxvw33-656Hze [facility] Comment on above:Performed By: #### 70090 ####[facility] [place] [address], USAGlucose [Mass/Vol]145 mg/dLHigh 70-100The The [facility] HospitalComment on above:Performed By: #### 01717 ####[facility] [place] [address], USAGlucose [Mass/Vol]142 mg/fYXdpo71-793Juw The [facility] HospitalComment on above:Performed By: #### 04513 ####[facility] [place] [address], USAGlucose [Mass/Vol]166 mg/dLHigh 70-100The The [facility] HospitalComment on above:Performed By: #### 81243 ####[facility] [place] [address], USAGlucose [Mass/Vol]164 mg/sSEchs72-261Jqz The [facility] HospitalComment on above:Performed By: #### 29027 ####[facility] [place] [address], USABASIC METABOLIC PANELon 13-03-3421Aacxtrh [Mass/Vol]7.8 mg/dLLow8.6-10.3The The [facility] HospitalComment on above:Order Comment: No: Do not add to previous drawPerformed By: #### 28399, 56050 ####[facility] [place] [address], USAChloride [Moles/Vol]111 mmol/SIxzg85-246Dam The [facility] HospitalComment on above:Order Comment: No: Do not add to previous drawPerformed By: #### 54950, 05019 ####[facility] [place] [address], USACO2 [Moles/Vol]21 mmol/LNormal 21-31The The [facility] HospitalComment on above:Order Comment: No: Do not add to previous drawPerformed By: #### 60915, 04308 ####[facility] [place] [address], USACreatinine [Mass/Vol]0.76 mg/dLNormal0.70-1.30The [facility] Comment on above:Order Comment: No: Do not add to previous drawPerformed By: #### 24447, 17209 ####[facility] [place] [address], USAGFR/1.73 sq M.predicted among blacks MDRD (S/P/Bld) [Vol rate/Area]mL/min/{1.73_m2}Normal>60The [facility] Comment on above:Order Comment: No: Do not add to previous drawResult Comment: Calculation may not be valid for patients over 70 yearsPerformed By: #### 62808, 22831 ####[facility] [place] [address], USAGFR/1.73 sq M.predicted among non-blacks MDRD (S/P/Bld) [Vol rate/Area]mL/min/{1.73_m2}Normal>60The [facility] Comment on above:Order Comment: No: Do not add to previous drawResult Comment: Calculation may not be valid for patients over 70 yearsPerformed By: #### 78143, 92363 ####[facility] [place] [address], USAGlucose [Mass/Vol]142 mg/pUGqxe91-078Hts The [facility] HospitalComment on above:Order Comment: No: Do not add to previous drawPerformed By: #### 98701, 62667 ####[facility] [place] [address], USAPotassium [Moles/Vol]3.9 mmol/LNormal3.5-5.1The The [facility] HospitalComment on above:Order Comment: No: Do not add to previous drawPerformed By: #### 59259, 37666 ####[facility] [place] [address], USASodium [Moles/Vol]140 mmol/TRhinnc340-905Itu The [facility] HospitalComment on above:Order Comment: No: Do not add to previous drawPerformed By: #### 19055, 33118 ####[facility] [place] [address], [place] Urea nitrogen [Mass/Vol]15 mg/dLNormal7-25The The [facility] HospitalComment on above:Order Comment: No: Do not add to previous drawPerformed By: #### 69023, 87833 ####[facility] [place] [address], USACBC COMPLETE BLOOD COUNTon 24-69-4444Yhrflabugex distribution width (RBC) [Ratio]14.6 %Kblxtn24.5-15.0The The [facility] HospitalComment on above:Order Comment: No: Do not add to previous draw Performed By: #### 62104 ####[facility] [address], USAHematocrit (Bld) [Volume fraction]31.8 %Low39.0-50.0The The [facility] HospitalComment on above:Order Comment: No: Do not add to previous drawPerformed By: #### 07864 ####[facility] [facility] [place] [address], [facility] SERVICESHemoglobin (Bld) [Mass/Vol]10.5 g/dLLow13.0-17.0The The [facility] HospitalComment on above:Order Comment: No: Do not add to previous drawPerformed By: #### 38048 ####[facility] [facility] [place] [address], [facility] (RBC) [Entitic mass]31.6 hqImkwri46.0-33.0The [facility] Comment on above:Order Comment: No: Do not add to previous drawPerformed By: #### 82119 ####[facility] [facility] [place] [address], [facility] SERVICESMCHC (RBC) [Mass/Vol]33.0 g/hIDmnwlq27.0-35.0The The [facility] HospitalComment on above:Order Comment: No: Do not add to previous draw Performed By: #### 49783 ####[facility] [facility] [place] [address], [facility] SERVICESMCV (RBC) [Entitic vol]95.8 dFGhcwkn11.0-98.0The The [facility] HospitalComment on above:Order Comment: No: Do not add to previous drawPerformed By: #### 04658 ####[facility] [facility] [place] [address], USANucleated RBC/100 WBC (Bld) [Ratio]0 %Normal0-0The The [facility] HospitalComment on above:Order Comment: No: Do not add to previous drawPerformed By: #### 19952 ####[facility] [address], USAPLAT CCP416 10*3/rPEfdflx979-971Mgs The [facility] HospitalComment on above: Order Comment: No: Do not add to previous drawPerformed By: #### 59973 ####[facility] [place] [address], [facility] RBC (Bld) [#/Vol]3.32 10*6/uLLow4.20-5.70The [facility] Comment on above:Order Comment: No: Do not add to previous drawPerformed By: #### 49308 ####[facility] [place] [address], [facility] SERVICESWBC (Bld) [#/Vol]14.06 10*3/uLHigh4.00-10.60The The [facility] HospitalComment on above:Order Comment: No: Do not add to previous draw Performed By: #### 52976 ####[facility] [place] [address], [facility] SERVICESMAGNESIUM BLOODon 75-83-9783Lziwqxisi [Mass/Vol]1.9 mg/dLNormal1.9-2.7The The [facility] HospitalComment on above:Order Comment: No: Do not add to previous drawPerformed By: #### 62085, 49327 ####[facility] [place] [address], [facility] POC GLUCOSE LABon 62-52-5685Yzqicey [Mass/Vol]139 mg/sNZphw80-268Yvt The [facility] HospitalComment on above:Performed By: #### 31314 ####[facility] [place] [address], [facility] SERVICESBASIC METABOLIC PANELon 90-61-6113Bkoboji [Mass/Vol]7.6 mg/dLLow8.6-10.3The The [facility] HospitalComment on above:Order Comment: No: Do not add to previous drawPerformed By: #### 29452, 80151 ####[facility] [place] [address], USAChloride [Moles/Vol]105 mmol/WIgukwy98-046Tmq The [facility] HospitalComment on above:Order Comment: No: Do not add to previous drawPerformed By: #### 30255, 44126 ####[facility] [place] [address], USACO2 [Moles/Vol]23 mmol/L Corkgw20-06Eqw The [facility] HospitalComment on above:Order Comment: No: Do not add to previous drawPerformed By: #### 26826, 42778 ####[facility] [place] [address], [place] Creatinine [Mass/Vol]0.76 mg/dLNormal0.70-1.30The The [facility] HospitalComment on above:Order Comment: No: Do not add to previous drawPerformed By: #### 09430, 54223 ####[facility] [place] [address], USAGFR/1.73 sq M.predicted among blacks MDRD (S/P/Bld) [Vol rate/Area]mL/min/{1.73_m2}Normal>60The [facility] Comment on above:Order Comment: No: Do not add to previous drawResult Comment: Calculation may not be valid for patients over 70 yearsPerformed By: #### 08557, 94750 ####[facility] [place] [address], USAGFR/1.73 sq M.predicted among non-blacks MDRD (S/P/Bld) [Vol rate/Area]mL/min/{1.73_m2}Normal>60The [facility] Comment on above:Order Comment: No: Do not add to previous drawResult Comment: Calculation may not be valid for patients over 70 yearsPerformed By: #### 60533, 94343 ####[facility] [place] [address], USAGlucose [Mass/Vol]109 mg/wRIytv60-128Ksy The [facility] HospitalComment on above:Order Comment: No: Do not add to previous drawPerformed By: #### 99506, 70668 ####[facility] [facility] [place] [address], USAPotassium [Moles/Vol]3.3 mmol/LLow3.5-5.1The The [facility] HospitalComment on above:Order Comment: No: Do not add to previous drawPerformed By: #### 00868, 12875 ####[facility] [facility] [place] [address], USASodium [Moles/Vol]137 mmol/LNormal 136-145The The [facility] HospitalComment on above:Order Comment: No: Do not add to previous drawPerformed By: #### 33473, 14223 ####[facility] [facility] [place] [address], USAUrea nitrogen [Mass/Vol]11 mg/dLNormal7-25The The [facility] HospitalComment on above:Order Comment: No: Do not add to previous drawPerformed By: #### 77565, 31021 ####[facility] [facility] [place] [address], USACBC COMPLETE BLOOD COUNTon 28-21-9637Nwnioandtdm distribution width (RBC) [Ratio]14.5 %Srawsu17.5-15.0The The [facility] HospitalComment on above:Order Comment: No: Do not add to previous drawPerformed By: #### 09784 ####[facility] [facility] [place] [address], [place] Hematocrit (Bld) [Volume fraction]30.9 %Low39.0-50.0The The [facility] HospitalComment on above:Order Comment: No: Do not add to previous draw Performed By: #### 41285 ####[facility] [place] [address], [facility] SERVICESHemoglobin (Bld) [Mass/Vol]10.4 g/dLLow13.0-17.0The The [facility] HospitalComment on above:Order Comment: No: Do not add to previous drawPerformed By: #### 65330 ####[facility] [facility] [place] [address], [facility] SERVICESMCH (RBC) [Entitic mass]31.6 pg Eixjdx98.0-33.0The The [facility] HospitalComment on above:Order Comment: No: Do not add to previous drawPerformed By: #### 58529 ####[facility] [facility] [place] [address], [facility] SERVICESMCHC (RBC) [Mass/Vol]33.7 g/mVNxnoaz41.0-35.0The The [facility] HospitalComment on above:Order Comment: No: Do not add to previous drawPerformed By: #### 10794 ####[facility] [facility] [place] [address], [facility] MCV (RBC) [Entitic vol]93.9 dXDyyabl79.0-98.0The The [facility] HospitalComment on above:Order Comment: No: Do not add to previous drawPerformed By: #### 01634 ####[facility] [facility] [place] [address], [facility] SERVICESNucleated RBC/100 WBC (Bld) [Ratio]0 %Normal0-0The The [facility] HospitalComment on above:Order Comment: No: Do not add to previous drawPerformed By: #### 47646 ####[facility] [facility] [place] [address], [facility] SERVICESPLAT HDV146 10*3/gFKuraon562-580Rzr [facility] HospitalComment on above:Order Comment: No: Do not add to previous drawPerformed By: #### 48928 ####[facility] [place] [address], USARBC (Bld) [#/Vol]3.29 10*6/uLLow 4.20-5.70The The [facility] HospitalComment on above:Order Comment: No: Do not add to previous drawPerformed By: #### 22505 ####[facility] [place] [address], USAWBC (Bld) [#/Vol]14.05 10*3/uLHigh4.00-10.60The The [facility] HospitalComment on above: Order Comment: No: Do not add to previous drawPerformed By: #### 74277 ####[facility] [place] [address], [place] MAGNESIUM BLOODon 59-74-5749Rnsltkqmr [Mass/Vol]1.9 mg/dLNormal1.9-2.7The The [facility] HospitalComment on above:Order Comment: No: Do not add to previous drawPerformed By: #### 15202, 41319 ####[facility] [place] [address], [facility] SERVICESPOC GLUCOSE LABon 42-24-6344Yhjoqxi [Mass/Vol]179 mg/aANpwo67-892Kmk [facility] HospitalComment on above:Performed By: #### 27735 ####[facility] [place] [address], USAGlucose [Mass/Vol]116 mg/dLHigh 70-100The The [facility] HospitalComment on above:Performed By: #### 47160 ####[facility] [place] [address], USAGlucose [Mass/Vol]244 mg/uWIazy54-833Crs [facility] HospitalComment on above:Performed By: #### 51378 ####[facility] [place] [address], USAGlucose [Mass/Vol]135 mg/dLHigh 70-100The The [facility] HospitalComment on above:Performed By: #### 85437 ####[facility] [place] [address], USABASIC METABOLIC PANELon 51-60-5042Iwsejam [Mass/Vol]7.9 mg/dLLow 8.6-10.3The The [facility] HospitalComment on above:Order Comment: No: Do not add to previous drawPerformed By: #### 05229, 05317 ####[facility] [place] [address], USAChloride [Moles/Vol]102 mmol/ZGgzvua26-288Gvb [facility] HospitalComment on above:Order Comment: No: Do not add to previous drawPerformed By: #### 79918, 88286 ####[facility] [place] [address], USACO2 [Moles/Vol]21 mmol/LJejupj02-38Mtf [facility] HospitalComment on above:Order Comment: No: Do not add to previous drawPerformed By: #### 52027, 17978 ####[facility] [place] [address], USACreatinine [Mass/Vol]0.82 mg/dLNormal0.70-1.30The The [facility] HospitalComment on above:Order Comment: No: Do not add to previous drawPerformed By: #### 27326, 43243 ####[facility] [place] [address], USAGFR/1.73 sq M.predicted among blacks MDRD (S/P/Bld) [Vol rate/Area]mL/min/{1.73_m2}Normal>60The The [facility] HospitalComment on above:Order Comment: No: Do not add to previous drawResult Comment: Calculation may not be valid for patients over 70 yearsPerformed By: #### 09261, 99184 ####[facility] [place] [address], USAGFR/1.73 sq M.predicted among non- blacks MDRD (S/P/Bld) [Vol rate/Area]mL/min/{1.73_m2}Normal>60The The [facility] HospitalComment on above:Order Comment: No: Do not add to previous drawResult Comment: Calculation may not be valid for patients over 70 years Performed By: #### 30054, 48206 ####[facility] [facility] [place] [address], USAGlucose [Mass/Vol]130 mg/gFKcsk85-611Kmf [facility] HospitalComment on above:Order Comment: No: Do not add to previous drawPerformed By: #### 22919, 23782 ####[facility] [place] [address], USAPotassium [Moles/Vol]3.8 mmol/LNormal3.5-5.1The The [facility] HospitalComment on above:Order Comment: No: Do not add to previous drawPerformed By: #### 78658, 44984 ####[facility] [place] [address], [place] Sodium [Moles/Vol]133 mmol/SLzt633-435Fug [facility] Comment on above:Order Comment: No: Do not add to previous drawPerformed By: #### 71857, 92796 ####[facility] [place] [address], USAUrea nitrogen [Mass/Vol]10 mg/dLNormal7-25The [facility] HospitalComment on above:Order Comment: No: Do not add to previous drawPerformed By: #### 84346, 47047 ####[facility] [place] [address], [facility] SERVICESCBC COMPLETE BLOOD COUNTon 62-88-7293Kpnsuuhcwbn distribution width (RBC) [Ratio]14.6 %Qacfeq95.5-15.0The The [facility] HospitalComment on above:Order Comment: No: Do not add to previous drawPerformed By: #### 89521 ####[facility] [facility] [place] [address], [facility] SERVICESHematocrit (Bld) [Volume fraction] 33.4 %Low39.0-50.0The The [facility] HospitalComment on above:Order Comment: No: Do not add to previous drawPerformed By: #### 14769 ####[facility] [facility] [place] [address], [facility] SERVICESHemoglobin (Bld) [Mass/Vol]11.2 g/dLLow13.0-17.0The The [facility] HospitalComment on above:Order Comment: No: Do not add to previous drawPerformed By: #### 22224 ####[facility] [facility] [place] [address], [facility] MCH (RBC) [Entitic mass]31.6 ozNeksfv23.0-33.0The The [facility] HospitalComment on above:Order Comment: No: Do not add to previous drawPerformed By: #### 76166 ####[facility] [facility] [place] [address], [facility] SERVICESMCHC (RBC) [Mass/Vol]33.5 g/lPXcaunz29.0-35.0The [facility] HospitalComment on above:Order Comment: No: Do not add to previous drawPerformed By: #### 32954 ####[facility] [facility] [place] [address], [facility] SERVICESMCV (RBC) [Entitic vol]94.4 yJEpxoco95.0-98.0 The The [facility] HospitalComment on above:Order Comment: No: Do not add to previous drawPerformed By: #### 09226 ####[facility] [place] [address], [facility] SERVICESNucleated RBC/100 WBC (Bld) [Ratio]0 %Normal0-0The The [facility] HospitalComment on above:Order Comment: No: Do not add to previous drawPerformed By: #### 74051 ####[facility] [place] [address], [place] PLAT LKG123 10*3/xFFznfgd312-307Ezm [facility] HospitalComment on above:Order Comment: No: Do not add to previous drawPerformed By: #### 56339 ####[facility] [facility] [place] [address], [facility] RBC (Bld) [#/Vol]3.54 10*6/uLLow4.20-5.70The [facility] Comment on above:Order Comment: No: Do not add to previous drawPerformed By: #### 10463 ####[facility] [facility] [place] [address], [facility] SERVICESWBC (Bld) [#/Vol]15.72 10*3/uLHigh4.00-10.60The The [facility] HospitalComment on above:Order Comment: No: Do not add to previous draw Performed By: #### 85062 ####[facility] [facility] [place] [address], [facility] SERVICESMAGNESIUM BLOODon 97-14-2886Pykrvemft [Mass/Vol]1.8 mg/dLLow1.9-2.7The [facility] HospitalComment on above:Order Comment: No: Do not add to previous drawPerformed By: #### 15909, 74152 ####[facility] [place] [address], [facility] POC GLUCOSE LABon 34-63-7331Chdjnmk [Mass/Vol]203 mg/nUEwaf03-528Fxy The [facility] HospitalComment on above:Performed By: #### 16580 ####[facility] [place] [address], USAGlucose [Mass/Vol]123 mg/dMIvee28-334Ojy The [facility] HospitalComment on above:Performed By: #### [id number] ####[facility] [place] [address], [place]AGlucose [Mass/Vol]171 mg/gJXuqj77-656Ixk [facility] HospitalComment on above:Performed By: #### [id number] ####[facility] [place] [address], [place] Glucose [Mass/Vol]138 mg/kGHycs80-594Pnl [facility] Comment on above:Performed By: #### [id number] ####[facility] [place] [address], USABASIC METABOLIC PANELon 08-25-2021 Calcium [Mass/Vol]7.7 mg/dLLow8.6-10.3The [facility] Comment on above:Order Comment: No: Do not add to previous drawPerformed By: #### [id number], [id number], [id number] ####[facility] [place] [address], USAChloride [Moles/Vol]101 mmol/KAdpphf18-951Xfd [facility] HospitalComment on above:Order Comment: No: Do not add to previous drawPerformed By: #### [id number], [id number], [id number] ####[facility] [place] [address], [place]ACO2 [Moles/Vol]24 mmol/SNthtci10-62Rss [facility] HospitalComment on above:Order Comment: No: Do not add to previous drawPerformed By: #### [id number], 23476, [id number] ####[facility] [place] [address], [facility] Creatinine [Mass/Vol]0.88 mg/dLNormal0.70-1.30The [facility] HospitalComment on above:Order Comment: No: Do not add to previous drawPerformed By: #### [id number], [id number], 23083 ####[facility] [place] [address], USAGFR/1.73 sq M.predicted among blacks MDRD (S/P/Bld) [Vol rate/Area]mL/min/{1.73_m2}Normal>60The The [facility] HospitalComment on above:Order Comment: No: Do not add to previous draw Result Comment: Calculation may not be valid for patients over 70 yearsPerformed By: #### 83326, 07649, 85354 ####[facility] [facility] [place] [address], USAGFR/1.73 sq M.predicted among non-blacks MDRD (S/P/Bld) [Vol rate/Area]mL/min/{1.73_m2}Normal>60The The Jewish HospitalComment on above:Order Comment: No: Do not add to previous draw Result Comment: Calculation may not be valid for patients over 70 yearsPerformed By: #### 38830, 79512, 49189 ####[facility] [facility] [place] [address], [facility] SERVICESGlucose [Mass/Vol]141 mg/kKKtxv48-569Dtp The [facility] HospitalComment on above:Order Comment: No: Do not add to previous drawPerformed By: #### 72399, 41129, 01478 ####[facility] [facility] [place] [address], [facility] SERVICESPotassium [Moles/Vol]3.9 mmol/LNormal3.5-5.1The The Jewish HospitalComment on above:Order Comment: No: Do not add to previous drawPerformed By: #### 21387, 18553, 99006 ####[facility] [facility] [place] [address], [facility] SERVICESSodium [Moles/Vol]131 mmol/JRjl862-904Qxf The [facility] HospitalComment on above:Order Comment: No: Do not add to previous drawPerformed By: #### 11915, 02591, 13262 ####[facility] [place] [address].[place] [address], USAUrea nitrogen [Mass/Vol]11 mg/dL Normal7-25The The Jewish HospitalComment on above:Order Comment: No: Do not add to previous drawPerformed By: #### 08836, 48819, 84003 ####[address] [place] [address], [facility] CBC COMPLETE BLOOD COUNTon 48-17-9518Zcakixztcje distribution width (RBC) [Ratio]14.6 %Zlxrkj83.5-15.0The The Jewish HospitalComment on above:Order Comment: No: Do not add to previous drawPerformed By: #### 98521 ####[address] [place] [address], [facility] Hematocrit (Bld) [Volume fraction]31.9 %Low39.0-50.0The The Jewish HospitalComment on above:Order Comment: No: Do not add to previous draw Performed By: #### 58687 ####[address] [place] [address], [facility] SERVICESHemoglobin (Bld) [Mass/Vol]10.8 g/dLLow13.0-17.0The The [facility] HospitalComment on above:Order Comment: No: Do not add to previous drawPerformed By: #### 91861 ####[address] [place] [address], [facility] SERVICESMCH (RBC) [Entitic mass]32.0 pg Lwenij87.0-33.0The The Jewish HospitalComment on above:Order Comment: No: Do not add to previous drawPerformed By: #### 74617 ####[facility] [id number], [facility] SERVICESMCHC (RBC) [Mass/Vol]33.9 g/cRYqkylo68.0-35.0The The Jewish HospitalComment on above:Order Comment: No: Do not add to previous drawPerformed By: #### 34160 ####[facility] [facility] [place] [address], [facility] MCV (RBC) [Entitic vol]94.4 oYAfzbqp22.0-98.0The The Jewish HospitalComment on above:Order Comment: No: Do not add to previous drawPerformed By: #### 12500 ####[facility] [facility] [place] [address], [facility] SERVICESNucleated RBC/100 WBC (Bld) [Ratio]0 %Normal0-0The The Jewish HospitalComment on above:Order Comment: No: Do not add to previous drawPerformed By: #### 52371 ####[facility] [facility] [place] [address], USAPLAT HYH485 10*3/aFKdvyho127-994Bkl The Jewish HospitalComment on above:Order Comment: No: Do not add to previous drawPerformed By: #### 37960 ####[facility] [facility] [place] [address], [facility] SERVICESRBC (Bld) [#/Vol]3.38 10*6/uLLow 4.20-5.70The The [facility] HospitalComment on above:Order Comment: No: Do not add to previous drawPerformed By: #### [id number] ####[facility] [facility] [place] [address], [facility] SERVICESWBC (Bld) [#/Vol]13.02 10*3/uLHigh4.00-10.60The The Jewish HospitalComment on above: Order Comment: No: Do not add to previous drawPerformed By: #### 48332 ####[facility] [place] [address], [place] MAGNESIUM BLOODon 18-25-9757Zvzofzlsj [Mass/Vol]1.7 mg/dLLow1.9-2.7The The [facility] HospitalComment on above:Order Comment: No: Do not add to previous drawPerformed By: #### 74056, 75095, 92220 ####[facility] [place] [address], USAPHOSPHORUS BLOODon 98-08-4786Dcvhgjcav [Mass/Vol]3.8 mg/dLNormal2.5-5.0The The [facility] HospitalComment on above:Order Comment: No: Do not add to previous draw Performed By: #### 83317, 35570, 10834 ####[facility] [place] [address], [facility] SERVICESPOC GLUCOSE LABon 08-25-2021 Glucose [Mass/Vol]133 mg/mNHpta87-976Qha [facility] Comment on above:Performed By: #### 84834 ####[facility] [facility] [place] [address], USAGlucose [Mass/Vol]135 mg/dLHigh 70-100The The Jewish HospitalComment on above:Performed By: #### 57183 ####[facility] [facility] [place] [address], USAGlucose [Mass/Vol]135 mg/nRPodq76-219Rbs The Jewish HospitalComment on above:Performed By: #### 21279 ####[facility] [place] [address], USAGlucose [Mass/Vol]155 mg/dLHigh 70-100The The Jewish HospitalComment on above:Performed By: #### 42850 ####[facility] [place] [address], USABASIC METABOLIC PANELon 67-48-6753Pkgzqum [Mass/Vol]7.9 mg/dLLow 8.6-10.3The The Jewish HospitalComment on above:Order Comment: No: Do not add to previous drawMissed draw at 420amPT refused PATTY Cameron notified Performed By: #### 88109, 57385, 28759 ####[facility] [place] [address], USAChloride [Moles/Vol]100 mmol/L Gsbtju13-810Wmg The Jewish HospitalComment on above:Order Comment: No: Do not add to previous drawMissed draw at 420amPT refused PATTY Cameron notifiedPerformed By: #### 35951, 63492, 53891 ####[facility] [place] [address], USACO2 [Moles/Vol]26 mmol/LNormal 21-31The The Jewish HospitalComment on above:Order Comment: No: Do not add to previous drawMissed draw at 420amPT refused PATTY Cameron notified Performed By: #### 01482, 77436, 27142 ####[facility] [place] [address], USACreatinine [Mass/Vol]0.86 mg/dL Normal0.70-1.30The The [facility] HospitalComment on above:Order Comment: No: Do not add to previous drawMissed draw at 420amPT refused PATTY Cameron notifiedPerformed By: #### 83689, 86535, 19911 ####[facility] [place] [address], USAGFR/1.73 sq M.predicted among blacks MDRD (S/P/Bld) [Vol rate/Area]mL/min/{1.73_m2}Normal>60The The [facility] HospitalComment on above:Order Comment: No: Do not add to previous drawMissed draw at 420amPT refused PATTY Cameron notifiedResult Comment: Calculation may not be valid for patients over 70 yearsPerformed By: #### 51126, 04434, 79719 ####[facility] [place] [address], USAGFR/1.73 sq M.predicted among non-blacks MDRD (S/P/Bld) [Vol rate/Area]mL/min/{1.73_m2}Normal>60The [facility] Comment on above:Order Comment: No: Do not add to previous drawMissed draw at 420amPT refused PATTY Cameron notifiedResult Comment: Calculation may not be valid for patients over 70 yearsPerformed By: #### 93130, 89609, 17523 ####[facility] [facility] [place] [address], USAGlucose [Mass/Vol]127 mg/cXPgop72-313Ygt The [facility] HospitalComment on above:Order Comment: No: Do not add to previous drawMissed draw at 420amPT refused PATTY Cameron notifiedPerformed By: #### 96809, 69405, 44612 ####[facility] [facility] [place] [address], USAPotassium [Moles/Vol]4.3 mmol/LNormal3.5-5.1The The [facility] HospitalComment on above:Order Comment: No: Do not add to previous drawMissed draw at 420amPT refused PATTY Cameron notifiedPerformed By: #### 18959, 11591, 90457 ####[facility] [place] [address], USASodium [Moles/Vol]132 mmol/KLjo703-854Ytv The [facility] HospitalComment on above:Order Comment: No: Do not add to previous drawMissed draw at 420amPT refused PATTY Cameron notifiedPerformed By: #### 54492, 29361, 03129 ####[facility] [place] [address], USAUrea nitrogen [Mass/Vol]10 mg/dLNormal7-25The The [facility] HospitalComment on above:Order Comment: No: Do not add to previous drawMissed draw at 420amPT refused PATTY Cameron notifiedPerformed By: #### 66431, 38491, 27146 ####[facility] [place] [address], USACBC W/DIFFon 76-63-2299HMX IMM GRANS0.1 10*3/uLNormal0.0-0.2The The [facility] HospitalComment on above:Order Comment: No: Do not add to previous drawMissed draw at 420amPT refused PATTY Cameron notifiedPerformed By: #### 25455 ####[facility] [facility] [place] [address], USAABS NEUTROPHILS4.5 10*3/uLNormal1.6-7.6The The [facility] HospitalComment on above: Order Comment: No: Do not add to previous drawMissed draw at 420amPT refused PATTY Cameron notifiedPerformed By: #### 53038 ####[facility] [facility] [place] [address], USABasophils (Bld) [#/Vol]0.0 10*3/uL Normal0.0-0.2The The [facility] HospitalComment on above:Order Comment: No: Do not add to previous drawMissed draw at 420amPT refused PATTY Cameron notifiedPerformed By: #### 96471 ####[facility] [facility] [place] [address], USABasophils/100 WBC (Bld)0.1 %Normal0.0-1.0The The [facility] HospitalComment on above:Order Comment: No: Do not add to previous drawMissed draw at 420amPT refused PATTY Cameron notifiedPerformed By: #### 86484 ####[facility] [place] [address], USAEosinophils (Bld) [#/Vol]0.0 10*3/uLNormal0.0-0.5The The [facility] HospitalComment on above:Order Comment: No: Do not add to previous drawMissed draw at 420amPT refused PATTY Cameron notifiedPerformed By: #### 00064 ####[facility] [place] [address], [facility] Eosinophils/100 WBC (Bld)0.1 %Normal0.0-6.0The The Jewish HospitalComment on above:Order Comment: No: Do not add to previous drawMissed draw at 420amPT refused PATTY Cameron notifiedPerformed By: #### 85840 ####[facility] [place] [address], [facility] SERVICESErythrocyte distribution width (RBC) [Ratio]14.7 %Jcmgps27.5-15.0The The [facility] HospitalComment on above:Order Comment: No: Do not add to previous drawMissed draw at 420amPT refused PATTY Cameron notifiedPerformed By: #### 89194 ####[facility] [place] [address], [facility] Hematocrit (Bld) [Volume fraction]35.4 %Low39.0-50.0The The Jewish HospitalComment on above:Order Comment: No: Do not add to previous drawMissed draw at 420amPT refused PATTY Cameron notifiedPerformed By: #### 56454 ####[facility] [place] [address], [facility] Hemoglobin (Bld) [Mass/Vol]11.6 g/dLLow13.0-17.0The The [facility] HospitalComment on above:Order Comment: No: Do not add to previous drawMissed draw at 420amPT refused PATTY Cameron notifiedPerformed By: #### 16504 ####[facility] [place] [address], [facility] SERVICESIMMATURE GRANS 0.3 %Normal0.0-1.0The The Jewish HospitalComment on above:Order Comment: No: Do not add to previous drawMissed draw at 420amPT refused PATTY Cameron notifiedPerformed By: #### 09317 ####[facility] [facility] [place] [address], USALymphocytes (Bld) [#/Vol]10.1 10*3/uLHigh 1.2-4.0The The Jewish HospitalComment on above:Order Comment: No: Do not add to previous drawMissed draw at 420amPT refused PATTY Cameron notified Performed By: #### 99596 ####[facility] [facility] [place] [address], [facility] SERVICESLymphocytes/100 WBC (Bld)67.1 %High20.0-45.0The The Jewish HospitalComment on above:Order Comment: No: Do not add to previous drawMissed draw at 420amPT refused PATTY Cameron notifiedPerformed By: #### 86325 ####[facility] [facility] [place] [address], [facility] SERVICESMCH (RBC) [Entitic mass]32.0 ooHcegrr05.0-33.0The The [facility] HospitalComment on above:Order Comment: No: Do not add to previous drawMissed draw at 420amPT refused PATTY Cameron notifiedPerformed By: #### 46300 ####[facility] [facility] [place] [address], [place] MCHC (RBC) [Mass/Vol]32.8 g/yGQuannl99.0-35.0The The [facility] HospitalComment on above:Order Comment: No: Do not add to previous drawMissed draw at 420amPT refused PATTY Cameron notifiedPerformed By: #### 05023 ####[facility] [facility] [place] [address], [facility] SERVICESMCV (RBC) [Entitic vol]97.5 iXLabmkn41.0-98.0The The [facility] HospitalComment on above:Order Comment: No: Do not add to previous drawMissed draw at 420amPT refused PATTY Cameron notifiedPerformed By: #### 04594 ####[facility] [place] [address], USAMonocytes (Bld) [#/Vol]0.4 10*3/uLNormal0.1-1.0The The [facility] HospitalComment on above: Order Comment: No: Do not add to previous drawMissed draw at 420amPT refused PATTY Cameron notifiedPerformed By: #### 51291 ####[facility] [facility] [place] [address], USAMONOS2.6 %Low5.0-12.0The The Jewish HospitalComment on above:Order Comment: No: Do not add to previous drawMissed draw at 420amPT refused PATTY Cameron notifiedPerformed By: #### 01272 ####[facility] [facility] [place] [address], [facility] SERVICESNeutrophils/100 WBC (Bld)29.8 %Low40.0-72.0The The Jewish HospitalComment on above:Order Comment: No: Do not add to previous drawMissed draw at 420amPT refused PATTY Cameron notifiedPerformed By: #### 82899 ####[facility] [facility] [place] [address], [place] Nucleated RBC/100 WBC (Bld) [Ratio]0 %Normal0-0The The Jewish HospitalComment on above:Order Comment: No: Do not add to previous drawMissed draw at 420amPT refused PATTY Cameron notifiedPerformed By: #### 39751 ####[facility] [place] [address], [place]APLAT [id number] 10*3/uL Unwdtd362-288Eto The Jewish HospitalComment on above:Order Comment: No: Do not add to previous drawMissed draw at 420amPT refused PATTY Cameron notifiedPerformed By: #### 16761 ####[facility] [facility] [place] [address], USARBC (Bld) [#/Vol]3.63 10*6/uLLow4.20-5.70The The [facility] HospitalComment on above:Order Comment: No: Do not add to previous drawMissed draw at 420amPT refused PATTY Cameron notifiedPerformed By: #### 79736 ####[facility] [facility] [place] [address], USASMUDGE CELLSMANYNormalThe [facility] Comment on above:Order Comment: No: Do not add to previous drawMissed draw at 420amPT refused PATTY Cameron notifiedPerformed By: #### 11940 ####[facility] [facility] [place] [address], USAWBC (Bld) [#/Vol] 15.09 10*3/uLHigh4.00-10.60The The [facility] HospitalComment on above:Order Comment: No: Do not add to previous drawMissed draw at 420amPT refused PATTY Cameron notifiedPerformed By: #### 59350 ####[facility] [facility] [place] [address], USAMAGNESIUM BLOODon 71-25-3078Inllakcwb [Mass/Vol]1.8 mg/dLLow1.9-2.7The The [facility] HospitalComment on above:Order Comment: No: Do not add to previous drawMissed draw at 420amPT refused PATTY Cameron notifiedPerformed By: #### 46631, 96289, 58293 ####[facility] [facility] [place] [address], USAPHOSPHORUS BLOODon 02-01-1829Iqjnsrrjw [Mass/Vol]3.8 mg/dLNormal 2.5-5.0The The [facility] HospitalComment on above:Order Comment: No: Do not add to previous drawMissed draw at 420amPT refused PATTY Cameron notified Performed By: #### 03022, 92370, 83116 ####[facility] [place] [address], USAPOC GLUCOSE LABon 08-24-2021 Glucose [Mass/Vol]208 mg/rFLfht00-445Obv [facility] Comment on above:Performed By: #### 27863 ####[facility] [place] [address], USAGlucose [Mass/Vol]146 mg/dLHigh 70-100The The [facility] HospitalComment on above:Performed By: #### 96724 ####[facility] [place] [address], USAGlucose [Mass/Vol]162 mg/iSSyjq71-631Cny The [facility] HospitalComment on above:Performed By: #### 61734 ####[facility] [place] [address], USAGlucose [Mass/Vol]148 mg/dLHigh 70-100The The [facility] HospitalComment on above:Performed By: #### 44969 ####[facility] [place] [address], [place]APOC SARS COV2 ANTIGEN NEGATIVEon 98-87-4180JIF SARS COV2 ANTIGEN NEG NegativeNormalNEGATIVEThe The Jewish HospitalComment on above: Result Comment: Negative results from patients with symptom onset beyond [...] presence of clinicalsigns and symptoms consistent with COVID- 19.The [employer] COVID-19 Ag Card is a lateral flow immunoassay intended forthe qualitative detection of nucleocapsid protein antigen hckhFWFL-CcA-9 in direct nasal swabs from individuals within [...] of Waiver, Certificate of Compliance, or Certificate ofAccreditation.Performed By: #### 98830 ####[facility] [place] [address], USABASIC METABOLIC PANELon 73-03-2488Iqunizm [Mass/Vol]7.8 mg/dLLow8.6-10.3The The [facility] HospitalComment on above:Order Comment: No: Do not add to previous drawPerformed By: #### 82440, 37924 ####[facility] [place] [address], USAChloride [Moles/Vol]104 mmol/KAcxeic32-781Xki The [facility] HospitalComment on above:Order Comment: No: Do not add to previous drawPerformed By: #### 82498, 55789 ####[facility] [place] [address], USACO2 [Moles/Vol]24 mmol/L Jrvjfz14-70Fyc The [facility] HospitalComment on above:Order Comment: No: Do not add to previous drawPerformed By: #### 90130, 91174 ####[facility] [place] [address], [place] Creatinine [Mass/Vol]0.91 mg/dLNormal0.70-1.30The The [facility] HospitalComment on above:Order Comment: No: Do not add to previous drawPerformed By: #### 41025, 29435 ####[facility] [place] [address], USAGFR/1.73 sq M.predicted among blacks MDRD (S/P/Bld) [Vol rate/Area]mL/min/{1.73_m2}Normal>60The [facility] Comment on above:Order Comment: No: Do not add to previous drawResult Comment: Calculation may not be valid for patients over 70 yearsPerformed By: #### 16777, 00326 ####[facility] [place] [address], USAGFR/1.73 sq M.predicted among non-blacks MDRD (S/P/Bld) [Vol rate/Area]mL/min/{1.73_m2}Normal>60The [facility] Comment on above:Order Comment: No: Do not add to previous drawResult Comment: Calculation may not be valid for patients over 70 yearsPerformed By: #### 47970, 18970 ####[facility] [facility] [place] [address], USAGlucose [Mass/Vol]162 mg/aYLvow03-492Uzc The [facility] HospitalComment on above:Order Comment: No: Do not add to previous drawPerformed By: #### 14184, 43313 ####[facility] [facility] [place] [address], USAPotassium [Moles/Vol]3.9 mmol/LNormal3.5-5.1The The [facility] HospitalComment on above:Order Comment: No: Do not add to previous drawPerformed By: #### 20269, 52608 ####[facility] [facility] [place] [address], USASodium [Moles/Vol]134 mmol/QZme004-845Cmp The [facility] HospitalComment on above:Order Comment: No: Do not add to previous drawPerformed By: #### 39181, 07473 ####[facility] [place] [address], [place] Urea nitrogen [Mass/Vol]7 mg/dLNormal7-25The [facility] Comment on above:Order Comment: No: Do not add to previous drawPerformed By: #### 78024, 56950 ####[facility] [place] [address], USACBC COMPLETE BLOOD COUNTon 48-42-5951Bvgvekwedub distribution width (RBC) [Ratio]14.7 %Ruggkt78.5-15.0The The [facility] HospitalComment on above:Order Comment: No: Do not add to previous draw Performed By: #### 18371 ####[facility] [place] [address], [facility] SERVICESHematocrit (Bld) [Volume fraction]32.6 %Low39.0-50.0The The [facility] HospitalComment on above:Order Comment: No: Do not add to previous drawPerformed By: #### 45166 ####[facility] [place] [address], [facility] SERVICESHemoglobin (Bld) [Mass/Vol]10.8 g/dLLow13.0-17.0The The [facility] HospitalComment on above:Order Comment: No: Do not add to previous drawPerformed By: #### 37905 ####[facility] [place] [address], [facility]AHH (RBC) [Entitic mass]31.4 vtPgyrkz02.0-33.0The [facility] Comment on above:Order Comment: No: Do not add to previous drawPerformed By: #### 20200 ####[facility] [place] [address], [facility] SERVICESMCHC (RBC) [Mass/Vol]33.1 g/nWNeefjx83.0-35.0The The [facility] HospitalComment on above:Order Comment: No: Do not add to previous draw Performed By: #### 95135 ####[facility] [place] [address], [facility] SERVICESMCV (RBC) [Entitic vol]94.8 fGHhuodb85.0-98.0The The [facility] HospitalComment on above:Order Comment: No: Do not add to previous drawPerformed By: #### 06522 ####[facility] [facility] [place] [address], [facility] SERVICESNucleated RBC/100 WBC (Bld) [Ratio]0 %Normal0-0The The [facility] HospitalComment on above:Order Comment: No: Do not add to previous drawPerformed By: #### 02660 ####[facility] [facility] [place] [address], [place]APLAT [id number] 10*3/kKCrf244-050Jvk The [facility] HospitalComment on above:Order Comment: No: Do not add to previous drawPerformed By: #### 30550 ####[facility] [place] [address].[place] [address], [facility] SERVICESRBC (Bld) [#/Vol]3.44 10*6/uLLow4.20-5.70The The Jewish HospitalComment on above:Order Comment: No: Do not add to previous drawPerformed By: #### [id number] ####[address] [place] [address], [facility] WBC (Bld) [#/Vol]13.68 10*3/uLHigh4.00-10.60The The Jewish HospitalComment on above:Order Comment: No: Do not add to previous drawPerformed By: #### [id number] ####[address] [place] [address], [facility] SERVICESMAGNESIUM BLOODon 30-23-0975Biuvczezb [Mass/Vol]1.6 mg/dLLow 1.9-2.7The The Jewish HospitalComment on above:Order Comment: No: Do not add to previous drawPerformed By: #### [id number] ####[facility] [place] [address], [place] GLUCOSE LABon [id number] [Mass/Vol]156 mg/lDLfjt97-625Agt The Jewish HospitalComment on above:Performed By: #### [id number] ####[facility] [facility] [place] [address], USAGlucose [Mass/Vol]111 mg/dLHigh 70-100The The Jewish HospitalComment on above:Performed By: #### [id number] ####[facility] [place] [address].[place] [address], USAGlucose [Mass/Vol]181 mg/kXUcbi68-502Thq The Jewish HospitalComment on above:Performed By: #### 12224 ####[facility] [facility] [place] [address], USAGlucose [Mass/Vol]167 mg/dLHigh 70-100The The Jewish HospitalComment on above:Performed By: #### 17065 ####[address] [place] [address], [facility]*C DIFF DNA AMPLIFICATIONon 08-22-2021*C DIFF DNA AMPLIFICATION Clinical Report: (D) Specimen: STOOL Collected: 08/22/2021 16:41 Status: Final Last Updated: 08/22/2021 18:57 (1) No: Do not add to previous draw CDT DNA: (Final) NegativeNoMemorial HospitalComment on above:Order Comment: No: Do not add to previous drawPerformed By: #### [id number] ####[facility] [place] [address].[place] [address], USABASIC METABOLIC PANELon 52-77-3974Duzebva [Mass/Vol]8.2 mg/dLLow8.6-10.3The The [facility] HospitalComment on above:Order Comment: No: Do not add to previous draw Performed By: #### 10188, 64662 ####[facility] [place] [address], USAChloride [Moles/Vol]104 mmol/GLheglt30-864Aiq The [facility] HospitalComment on above:Order Comment: No: Do not add to previous drawPerformed By: #### 94336, 22170 ####[facility] [place] [address], USACO2 [Moles/Vol]21 mmol/L Etbfks98-17Age The Jewish HospitalComment on above:Order Comment: No: Do not add to previous drawPerformed By: #### 09871, 18923 ####[facility] [place] [address], [place] Creatinine [Mass/Vol]0.92 mg/dLNormal0.70-1.30The The Jewish HospitalComment on above:Order Comment: No: Do not add to previous drawPerformed By: #### 60097, 02739 ####[facility] [place] [address], USAGFR/1.73 sq M.predicted among blacks MDRD (S/P/Bld) [Vol rate/Area]mL/min/{1.73_m2}Normal>60The [facility] Comment on above:Order Comment: No: Do not add to previous drawResult Comment: Calculation may not be valid for patients over 70 yearsPerformed By: #### 11027, 58427 ####[facility] [place] [address], USAGFR/1.73 sq M.predicted among non-blacks MDRD (S/P/Bld) [Vol rate/Area]mL/min/{1.73_m2}Normal>60The [facility] Comment on above:Order Comment: No: Do not add to previous drawResult Comment: Calculation may not be valid for patients over 70 yearsPerformed By: #### 58921, 58184 ####[facility] [place] [address], USAGlucose [Mass/Vol]179 mg/xUJujc48-854Mhe The [facility] HospitalComment on above:Order Comment: No: Do not add to previous drawPerformed By: #### 28903, 40675 ####[facility] [place] [address], USAPotassium [Moles/Vol]4.4 mmol/LNormal3.5-5.1The The Jewish HospitalComment on above:Order Comment: No: Do not add to previous drawPerformed By: #### 84066, 05837 ####[facility] [place] [address], USASodium [Moles/Vol]134 mmol/AEsa536-584Mqy The Jewish HospitalComment on above:Order Comment: No: Do not add to previous drawPerformed By: #### 64133, 90013 ####[facility] [facility] [place] [address], [place] Urea nitrogen [Mass/Vol]9 mg/dLNormal7-25The [facility] Comment on above:Order Comment: No: Do not add to previous drawPerformed By: #### 37642, 13546 ####[facility] [facility] [address], USACBC COMPLETE BLOOD COUNTon 71-24-2396Nzpmqucspea distribution width (RBC) [Ratio]14.7 %Qpezfg80.5-15.0The The Jewish HospitalComment on above:Order Comment: No: Do not add to previous draw Performed By: #### 76350 ####[facility] [place] [address], USAHematocrit (Bld) [Volume fraction]36.8 %Low39.0-50.0The The Jewish HospitalComment on above:Order Comment: No: Do not add to previous drawPerformed By: #### 34287 ####[facility] [facility] [place] [address], [facility] SERVICESHemoglobin (Bld) [Mass/Vol]12.4 g/dLLow13.0-17.0The The Jewish HospitalComment on above:Order Comment: No: Do not add to previous drawPerformed By: #### 67817 ####[facility] [facility] [place] [address], [facility] (RBC) [Entitic mass]32.3 kcIvdzqh66.0-33.0The [facility] Comment on above:Order Comment: No: Do not add to previous drawPerformed By: #### 59614 ####[facility] [facility] [place] [address], [facility] (RBC) [Mass/Vol]33.7 g/uDDhxabj73.0-35.0The The Jewish HospitalComment on above:Order Comment: No: Do not add to previous draw Performed By: #### 98896 ####[facility] [facility] [place] [address], [facility] (RBC) [Entitic vol]95.8 iNCctxjy48.0-98.0The The Jewish HospitalComment on above:Order Comment: No: Do not add to previous drawPerformed By: #### 32129 ####[facility] [facility] [place] [address], USANucleated RBC/100 WBC (Bld) [Ratio]0 %Normal0-0The The Jewish HospitalComment on above:Order Comment: No: Do not add to previous drawPerformed By: #### 62690 ####[facility] [facility] [place] [address], USAPLAT OFY634 10*3/jGKbopzo119-016Pjp [facility] CenterComment on above: Order Comment: No: Do not add to previous drawPerformed By: #### 70674 ####[facility] [place] [address], [place] RBC (Bld) [#/Vol]3.84 10*6/uLLow4.20-5.70The [facility] Comment on above:Order Comment: No: Do not add to previous drawPerformed By: #### 15522 ####[facility] [place] [address], USAWBC (Bld) [#/Vol]17.17 10*3/uLHigh4.00-10.60The The [facility] HospitalComment on above:Order Comment: No: Do not add to previous draw Performed By: #### 72076 ####[facility] [facility] [place] [address], USACT ABDOMEN AND PELVIS W ORAL CONTRASTon 29-75-2785IR ABDOMEN AND PELVIS W ORAL CONTRASTNormalThe [facility] Comment on above:Order Comment: Fluid CollectionMAGNESIUM BLOODon 08-22-2021 Magnesium [Mass/Vol]1.9 mg/dLNormal1.9-2.7The The Jewish HospitalComment on above:Order Comment: No: Do not add to previous drawPerformed By: #### 83436, 30898 ####[facility] [place] [address], USAPOC GLUCOSE LABon 35-95-9481Tqfzsbk [Mass/Vol]119 mg/dL Ljkc19-535Sfj The Jewish HospitalComment on above:Performed By: #### 90765 ####[facility] [facility] [place] [address], USAGlucose [Mass/Vol]180 mg/zDUjfo23-654Vny The [facility] HospitalComment on above:Performed By: #### 14431 ####[facility] [place] [address], USAGlucose [Mass/Vol]146 mg/dLHigh 70-100The The Jewish HospitalComment on above:Performed By: #### 06968 ####[facility] [place] [address], USAGlucose [Mass/Vol]177 mg/xOLmop04-576Vcc The [facility] HospitalComment on above:Performed By: #### 56991 ####[facility] [place] [address], USABASIC METABOLIC PANELon 42-22-7546Mqmatjg [Mass/Vol]8.0 mg/dLLow8.6-10.3The The [facility] HospitalComment on above:Order Comment: No: Do not add to previous drawPerformed By: #### 06794, 39474, 84282 ####[facility] [place] [address], USAChloride [Moles/Vol]102 mmol/RGtjwrj36-487Rwv The [facility] HospitalComment on above:Order Comment: No: Do not add to previous drawPerformed By: #### 36519, 75841, 78058 ####[facility] [place] [address], USACO2 [Moles/Vol]23 mmol/DTjbyjh01-99Rdp The [facility] HospitalComment on above:Order Comment: No: Do not add to previous drawPerformed By: #### 72628, 68166, 57525 ####[facility] [place] [address], [place] Creatinine [Mass/Vol]0.89 mg/dLNormal0.70-1.30The The [facility] HospitalComment on above:Order Comment: No: Do not add to previous drawPerformed By: #### 56610, 77730, 38238 ####[facility] [place] [address], USAGFR/1.73 sq M.predicted among blacks MDRD (S/P/Bld) [Vol rate/Area]mL/min/{1.73_m2}Normal>60The The Jewish HospitalComment on above:Order Comment: No: Do not add to previous draw Result Comment: Calculation may not be valid for patients over 70 yearsPerformed By: #### 92859, 81002, 00380 ####[facility] [place] [address], USAGFR/1.73 sq M.predicted among non-blacks MDRD (S/P/Bld) [Vol rate/Area]mL/min/{1.73_m2}Normal>60The The [facility] HospitalComment on above:Order Comment: No: Do not add to previous draw Result Comment: Calculation may not be valid for patients over 70 yearsPerformed By: #### 15565, 14522, 79889 ####[facility] [place] [address], USAGlucose [Mass/Vol]200 mg/cVQiof12-678Zhf The [facility] HospitalComment on above:Order Comment: No: Do not add to previous drawPerformed By: #### 93328, 43013, 24609 ####[facility] [place] [address], USAPotassium [Moles/Vol]4.4 mmol/LNormal3.5-5.1The The [facility] HospitalComment on above:Order Comment: No: Do not add to previous drawPerformed By: #### 99857, 84862, 53483 ####[facility] [place] [address], USASodium [Moles/Vol]132 mmol/HUrn238-993Kgh The [facility] HospitalComment on above:Order Comment: No: Do not add to previous drawPerformed By: #### 20379, 66031, 28444 ####[facility] [place] [address], USAUrea nitrogen [Mass/Vol]10 mg/dL Normal7-25The The [facility] HospitalComment on above:Order Comment: No: Do not add to previous drawPerformed By: #### 22510, 95123, 50658 ####[facility] [facility] [place] [address], [facility] CBC COMPLETE BLOOD COUNTon 98-19-9644Bedlvtjztyu distribution width (RBC) [Ratio]14.6 %Wuprux32.5-15.0The The Jewish HospitalComment on above:Order Comment: No: Do not add to previous drawPerformed By: #### 19298 ####[facility] [facility] [place] [address], [facility] Hematocrit (Bld) [Volume fraction]34.1 %Low39.0-50.0The The Jewish HospitalComment on above:Order Comment: No: Do not add to previous draw Performed By: #### 34854 ####[facility] [facility] [place] [address], [facility] SERVICESHemoglobin (Bld) [Mass/Vol]11.5 g/dLLow13.0-17.0The The [facility] HospitalComment on above:Order Comment: No: Do not add to previous drawPerformed By: #### 01466 ####[facility] [facility] [place] [address], [facility] SERVICESMCH (RBC) [Entitic mass]32.0 pg Leozcl39.0-33.0The The Jewish HospitalComment on above:Order Comment: No: Do not add to previous drawPerformed By: #### 94772 ####[facility] [facility] [place] [address], [facility] SERVICESMCHC (RBC) [Mass/Vol]33.7 g/oRFonmxh10.0-35.0The The [facility] HospitalComment on above:Order Comment: No: Do not add to previous drawPerformed By: #### 05573 ####[facility] [facility] [place] [address], [facility] MCV (RBC) [Entitic vol]95.0 vPWjdrrn89.0-98.0The The [facility] HospitalComment on above:Order Comment: No: Do not add to previous drawPerformed By: #### 13897 ####[facility] [facility] [place] [address], [facility] SERVICESNucleated RBC/100 WBC (Bld) [Ratio]0 %Normal0-0The The Jewish HospitalComment on above:Order Comment: No: Do not add to previous drawPerformed By: #### 03554 ####[facility] [facility] [place] [address], USAPLAT LOR462 10*3/vWPmxlmh204-241Uut The [facility] HospitalComment on above:Order Comment: No: Do not add to previous drawPerformed By: #### 17040 ####[facility] [facility] [place] [address], [facility] SERVICESRBC (Bld) [#/Vol]3.59 10*6/uLLow 4.20-5.70The The [facility] HospitalComment on above:Order Comment: No: Do not add to previous drawPerformed By: #### 37332 ####[facility] [place] [address].[place] [address], [facility] SERVICESWBC (Bld) [#/Vol]17.22 10*3/uLHigh4.00-10.60The The [facility] HospitalComment on above: Order Comment: No: Do not add to previous drawPerformed By: #### 24910 ####[facility] [facility] [place] [address], [facility] MAGNESIUM BLOODon 78-14-5660Xtdwrmkxx [Mass/Vol]2.1 mg/dLNormal1.9-2.7The The [facility] HospitalComment on above:Order Comment: No: Do not add to previous drawPerformed By: #### 47223, 32371, 61631 ####[facility] [place] [address], USAPHOSPHORUS BLOODon 33-61-0843Ynrihphha [Mass/Vol]3.4 mg/dLNormal2.5-5.0The The [facility] HospitalComment on above:Order Comment: No: Do not add to previous draw Performed By: #### 63221, 28289, 85829 ####[facility] [place] [address], USAPOC GLUCOSE LABon 08-21-2021 Glucose [Mass/Vol]122 mg/wDBwrz98-785Tav [facility] Comment on above:Performed By: #### 48714 ####[facility] [place] [address], USAGlucose [Mass/Vol]172 mg/dLHigh 70-100The The [facility] HospitalComment on above:Performed By: #### 40979 ####[facility] [place] [address], USAGlucose [Mass/Vol]120 mg/gCYcno84-307Zco The [facility] HospitalComment on above:Performed By: #### 27776 ####[facility] [place] [address], USAGlucose [Mass/Vol]185 mg/dLHigh 70-100The The [facility] HospitalComment on above:Performed By: #### 50243 ####[facility] [place] [address], USABASIC METABOLIC PANELon 33-99-3664Ibcjfrn [Mass/Vol]7.9 mg/dLLow 8.6-10.3The The [facility] HospitalComment on above:Order Comment: No: Do not add to previous drawPerformed By: #### 52679, 94133, 69983 ####[facility] [place] [address], [place] Chloride [Moles/Vol]104 mmol/WRwajme57-094Jwq The [facility] HospitalComment on above:Order Comment: No: Do not add to previous drawPerformed By: #### 43850, 88609, 36173 ####[facility] [place] [address], USACO2 [Moles/Vol]22 mmol/DLeuweq59-89Eun The [facility] HospitalComment on above:Order Comment: No: Do not add to previous drawPerformed By: #### 18624, 13802, 09794 ####[facility] [place] [address], USACreatinine [Mass/Vol]0.91 mg/dLNormal0.70-1.30The [facility] Comment on above:Order Comment: No: Do not add to previous drawPerformed By: #### 39637, 93326, 32051 ####[facility] [place] [address], USAGFR/1.73 sq M.predicted among blacks MDRD (S/P/Bld) [Vol rate/Area]mL/min/{1.73_m2}Normal>60The [facility] Comment on above:Order Comment: No: Do not add to previous drawResult Comment: Calculation may not be valid for patients over 70 yearsPerformed By: #### 07962, 39569, 49897 ####[facility] [place] [address], USAGFR/1.73 sq M.predicted among non-blacks MDRD (S/P/Bld) [Vol rate/Area]mL/min/{1.73_m2}Normal>60The [facility] Comment on above:Order Comment: No: Do not add to previous drawResult Comment: Calculation may not be valid for patients over 70 yearsPerformed By: #### 33573, 93226, 45099 ####[facility] [address], [facility] SERVICESGlucose [Mass/Vol]154 mg/jTYtyv65-010Flz The [facility] HospitalComment on above:Order Comment: No: Do not add to previous draw Performed By: #### 53197, 76127, 29423 ####[facility] [facility] [place] [address], [facility] SERVICESPotassium [Moles/Vol]4.4 mmol/L Normal3.5-5.1The The [facility] HospitalComment on above:Order Comment: No: Do not add to previous drawPerformed By: #### 34355, 81526, 16359 ####[facility] [facility] [place] [address], [facility] Sodium [Moles/Vol]133 mmol/CUhe223-122Vwv [facility] Comment on above:Order Comment: No: Do not add to previous drawPerformed By: #### 02836, 72567, 04332 ####[facility] [facility] [address], [facility] SERVICESUrea nitrogen [Mass/Vol]14 mg/dLNormal7-25The The [facility] HospitalComment on above:Order Comment: No: Do not add to previous drawPerformed By: #### 83345, 60749, 50577 ####[facility] [facility] [place] [address], [facility] SERVICESCBC COMPLETE BLOOD COUNTon 14-32-9020Offupirjiyy distribution width (RBC) [Ratio]14.6 %Normal 11.5-15.0The The [facility] HospitalComment on above:Order Comment: No: Do not add to previous drawPT in restroomPerformed By: #### 50544 ####[facility] [facility] [place] [address], [facility] Hematocrit (Bld) [Volume fraction]33.2 %Low39.0-50.0The The [facility] HospitalComment on above:Order Comment: No: Do not add to previous drawPT in restroomPerformed By: #### 63319 ####[facility] [facility] [place] [address], [facility] SERVICESHemoglobin (Bld) [Mass/Vol]11.2 g/dLLow 13.0-17.0The The [facility] HospitalComment on above:Order Comment: No: Do not add to previous drawPT in restroomPerformed By: #### 33433 ####[facility] [facility] [place] [address], [facility] MCH (RBC) [Entitic mass]32.2 cgQhkupl93.0-33.0The The [facility] HospitalComment on above:Order Comment: No: Do not add to previous drawPT in restroomPerformed By: #### 03676 ####[facility] [facility] [place] [address], [facility] SERVICESMCHC (RBC) [Mass/Vol]33.7 g/xMHvhhdf02.0-35.0 The The [facility] HospitalComment on above:Order Comment: No: Do not add to previous drawPT in restroomPerformed By: #### 50069 ####[facility] [facility] [place] [address], [facility] SERVICESMCV (RBC) [Entitic vol]95.4 qIMcrqcn69.0-98.0The The [facility] HospitalComment on above:Order Comment: No: Do not add to previous drawPT in restroomPerformed By: #### 43916 ####[facility] [facility] [place] [address], [facility] SERVICESNucleated RBC/100 WBC (Bld) [Ratio]0 %Normal0-0The The [facility] HospitalComment on above:Order Comment: No: Do not add to previous drawPT in restroomPerformed By: #### 49114 ####[facility] [facility] [place] [address], USAPLAT AZJ518 10*3/hQYlgfwt074-256 The The [facility] HospitalComment on above:Order Comment: No: Do not add to previous drawPT in restroomPerformed By: #### 86481 ####[facility] [place] [address], USARBC (Bld) [#/Vol] 3.48 10*6/uLLow4.20-5.70The The [facility] HospitalComment on above: Order Comment: No: Do not add to previous drawPT in restroomPerformed By: #### 18300 ####[facility] [place] [address], [facility] SERVICESWBC (Bld) [#/Vol]19.89 10*3/uLHigh4.00-10.60The [facility] HospitalComment on above:Order Comment: No: Do not add to previous drawPT in restroomPerformed By: #### 22588 ####[facility] [place] [address], [facility] SERVICESMAGNESIUM BLOODon 02-02-3746Pbygnrdnh [Mass/Vol]1.7 mg/dLLow1.9-2.7The The [facility] HospitalComment on above:Order Comment: No: Do not add to previous drawPerformed By: #### 82608, 57865, 44167 ####[facility] [place] [address], USAPHOSPHORUS BLOODon 07-42-2500Tuesuiufn [Mass/Vol]3.1 mg/dLNormal 2.5-5.0The The [facility] HospitalComment on above:Order Comment: No: Do not add to previous drawPerformed By: #### 55013, 66377, 43841 ####[facility] [place] [address], [facility] POC GLUCOSE LABon 13-65-9934Ggcczkm [Mass/Vol]160 mg/xBZjlm44-321Yjj The [facility] HospitalComment on above:Performed By: #### 90181 ####[facility] [place] [address], USAGlucose [Mass/Vol]175 mg/aUEzar44-851Fdn The [facility] HospitalComment on above:Performed By: #### 98827 ####[facility] [place] [address], USAGlucose [Mass/Vol]159 mg/jROpaq59-426Coz The [facility] HospitalComment on above:Performed By: #### 88958 ####[facility] [place] [address], [place] Glucose [Mass/Vol]145 mg/uEYjlz36-048Gut [facility] Comment on above:Performed By: #### 82886 ####[facility] [place] [address], USAGlucose [Mass/Vol]152 mg/dLHigh 70-100The The [facility] HospitalComment on above:Performed By: #### 70109 ####[facility] [place] [address], USABASIC METABOLIC PANELon 36-11-1089Fqlwglb [Mass/Vol]8.3 mg/dLLow 8.6-10.3The [facility] HospitalComment on above:Order Comment: No: Do not add to previous drawMissedPerformed By: #### 37096, 46285, 26494 ####[facility] [place] [address], [place] Chloride [Moles/Vol]103 mmol/EHglzdi09-658Odn [facility] HospitalComment on above:Order Comment: No: Do not add to previous drawMissed Performed By: #### 59937, 81975, 80304 ####[facility] [place] [address], USACO2 [Moles/Vol]23 mmol/LNormal 21-31The The Jewish HospitalComment on above:Order Comment: No: Do not add to previous drawMissedPerformed By: #### [id number], [id number], 23796 ####[facility] [place] [address], [place] Creatinine [Mass/Vol]0.86 mg/dLNormal0.70-1.30The The [facility] HospitalComment on above:Order Comment: No: Do not add to previous drawMissed Performed By: #### [id number], [id number], [id number] ####[facility] [place] [address], [place]AGFR/1.73 sq M.predicted among blacks MDRD (S/P/Bld) [Vol rate/Area]mL/min/{1.73_m2}Normal>60The The [facility] HospitalComment on above:Order Comment: No: Do not add to previous drawMissedResult Comment: Calculation may not be valid for patients over 70 yearsPerformed By: #### 95006, 86647, 62054 ####[facility] [place] [address], [place]AGFR/1.73 sq M.predicted among non- blacks MDRD (S/P/Bld) [Vol rate/Area]mL/min/{1.73_m2}Normal>60The The [facility] HospitalComment on above:Order Comment: No: Do not add to previous drawMissedResult Comment: Calculation may not be valid for patients over 70 yearsPerformed By: #### 95347, 11749, 40022 ####[facility] [place] [address], USAGlucose [Mass/Vol]176 mg/dLHigh 70-100The The [facility] HospitalComment on above:Order Comment: No: Do not add to previous drawMissedPerformed By: #### 63035, 94481, 12191 ####[facility] [facility] [place] [address], [facility] Potassium [Moles/Vol]4.8 mmol/LNormal3.5-5.1The The Jewish HospitalComment on above:Order Comment: No: Do not add to previous drawMissed Performed By: #### [id number], 81814, [id number] ####[facility] [facility] [place] [address], USASodium [Moles/Vol]132 mmol/LLow 136-145The The Jewish HospitalComment on above:Order Comment: No: Do not add to previous drawMissedPerformed By: #### 69378, 30530, 23830 ####[facility] [facility] [place] [address], [facility] Urea nitrogen [Mass/Vol]16 mg/dLNormal7-25The The Jewish HospitalComment on above:Order Comment: No: Do not add to previous drawMissed Performed By: #### 19857, 45677, 73981 ####[facility] [place] [address].[place] [id number], [facility] SERVICESCBC COMPLETE BLOOD COUNTon [id number] distribution width (RBC) [Ratio]14.6 %Nyddgh81.5-15.0The The Jewish HospitalComment on above:Order Comment: No: Do not add to previous drawMissedPerformed By: #### [id number] ####[place] [address] [facility] [place] [address], [facility] SERVICESHematocrit (Bld) [Volume fraction]38.2 %Low39.0-50.0The The Jewish HospitalComment on above:Order Comment: No: Do not add to previous drawMissedPerformed By: #### [id number] ####[facility] [place] [address].[place] [address], [facility] SERVICESHemoglobin (Bld) [Mass/Vol]12.4 g/dLLow13.0-17.0The The Jewish HospitalComment on above:Order Comment: No: Do not add to previous drawMissedPerformed By: #### 60881 ####[facility] [place] [address], [facility] (RBC) [Entitic mass]31.9 pgNormal 27.0-33.0The The Jewish HospitalComment on above:Order Comment: No: Do not add to previous drawMissedPerformed By: #### 65975 ####[facility] [facility] [place] [address], [facility] (RBC) [Mass/Vol]32.5 g/tEYfzent88.0-35.0The The Jewish HospitalComment on above:Order Comment: No: Do not add to previous drawMissedPerformed By: #### 05563 ####[facility] [place] [address], [facility] (RBC) [Entitic vol]98.2 mUGwtz78.0-98.0The The Jewish HospitalComment on above:Order Comment: No: Do not add to previous drawMissedPerformed By: #### [id number] ####[facility] [place] [address], [facility] SERVICESNucleated RBC/100 WBC (Bld) [Ratio]0 %Normal 0-0The The Jewish HospitalComment on above:Order Comment: No: Do not add to previous drawMissedPerformed By: #### 56247 ####[facility] [place] [address], [place]AP[place]AT LWV574 10*3/uLNormal 150-400The The Jewish HospitalComment on above:Order Comment: No: Do not add to previous drawMissedPerformed By: #### 30622 ####[facility] [facility] [place] [address], [facility] SERVICESRBC (Bld) [#/Vol] 3.89 10*6/uLLow4.20-5.70The The Jewish HospitalComment on above: Order Comment: No: Do not add to previous drawMissedPerformed By: #### [id number] ####[facility] [place] [address], [facility] WBC (Bld) [#/Vol]26.86 10*3/uLHigh4.00-10.60The The Jewish HospitalComment on above:Order Comment: No: Do not add to previous drawMissed Performed By: #### [id number] ####[facility] [place] [address], USACT ABDOMEN AND PELVIS WO CONTRASTon 43-55-1240MV ABDOMEN AND PELVIS WO CONTRASTNoalThe [facility] Hospital Comment on above:Order Comment: Other, s/p Colostomy Reversal. Concerns for anastomotic leak. Please use Rectal Contrast.MAGNESIUM BLOODon 08-19-2021 Magnesium [Mass/Vol]2.2 mg/dLNormal1.9-2.7The The Jewish HospitalComment on above:Order Comment: No: Do not add to previous drawMissed Performed By: #### 85320, 71925, 44514 ####[facility] [place] [address], [facility] SERVICESPHOSPHORUS BLOODon 08-19-2021 Phosphate [Mass/Vol]3.4 mg/dLNormal2.5-5.0The The Jewish HospitalComment on above:Order Comment: No: Do not add to previous drawMissed Performed By: #### 45285, 53216, 30972 ####[facility] [place] [address], [place]OC GLUCOSE LABon 08-19-2021 Glucose [Mass/Vol]146 mg/fAMdap29-817Tro [facility] Comment on above:Performed By: #### 47760 ####[facility] [place] [address], USAGlucose [Mass/Vol]122 mg/dLHigh 70-100The The Jewish HospitalComment on above:Performed By: #### 77646 ####[facility] [place] [address], USAGlucose [Mass/Vol]108 mg/ePWbto16-379Fkv The Jewish HospitalComment on above:Performed By: #### 42953 ####[facility] [place] [address], USAGlucose [Mass/Vol]153 mg/dLHigh 70-100The The Jewish HospitalComment on above:Performed By: #### 56096 ####[facility] [place] [address], USABASIC METABOLIC PANELon 55-50-3974Noeyqsv [Mass/Vol]8.5 mg/dLLow 8.6-10.3The The Jewish HospitalComment on above:Order Comment: No: Do not add to previous drawPerformed By: #### 13334, 24130, 67228 ####[facility] [place] [address], [place] Chloride [Moles/Vol]100 mmol/ROkstyg88-085Qje The [facility] HospitalComment on above:Order Comment: No: Do not add to previous drawPerformed By: #### 63143, 42996, 33443 ####[facility] [place] [address], USACO2 [Moles/Vol]26 mmol/MPtoyam85-89Mox The [facility] HospitalComment on above:Order Comment: No: Do not add to previous drawPerformed By: #### 56866, 37057, 89580 ####[facility] [place] [address], USACreatinine [Mass/Vol]0.73 mg/dLNormal0.70-1.30The [facility] Comment on above:Order Comment: No: Do not add to previous drawPerformed By: #### 66703, 67433, 45167 ####[facility] [place] [address], USAGFR/1.73 sq M.predicted among blacks MDRD (S/P/Bld) [Vol rate/Area]mL/min/{1.73_m2}Normal>60The [facility] Comment on above:Order Comment: No: Do not add to previous drawResult Comment: Calculation may not be valid for patients over 70 yearsPerformed By: #### 14618, 98469, 93293 ####[facility] [place] [address], USAGFR/1.73 sq M.predicted among non-blacks MDRD (S/P/Bld) [Vol rate/Area]mL/min/{1.73_m2}Normal>60The [facility] Comment on above:Order Comment: No: Do not add to previous drawResult Comment: Calculation may not be valid for patients over 70 yearsPerformed By: #### 49059, 01920, 75917 ####[facility] [place] [address], USAGlucose [Mass/Vol]168 mg/rKPsjc08-804Qja The [facility] HospitalComment on above:Order Comment: No: Do not add to previous draw Performed By: #### 88647, 55181, 82654 ####[facility] [place] [address], USAPotassium [Moles/Vol]4.3 mmol/L Normal3.5-5.1The The Jewish HospitalComment on above:Order Comment: No: Do not add to previous drawPerformed By: #### 97257, 78788, 30288 ####[facility] [place] [address], [place] Sodium [Moles/Vol]135 mmol/LHeg738-168Dlm [facility] Comment on above:Order Comment: No: Do not add to previous drawPerformed By: #### 35667, 29524, 20716 ####[facility] [place] [address], USAUrea nitrogen [Mass/Vol]15 mg/dLNormal7-25The The [facility] HospitalComment on above:Order Comment: No: Do not add to previous drawPerformed By: #### 08866, 22860, 28993 ####[facility] [place] [address], USACBC W/DIFFon 99-98-9335IWE SUDSHJIXYOV53.1 10*3/uLHigh1.6-7.6The The [facility] HospitalComment on above:Order Comment: No: Do not add to previous drawPerformed By: #### 15522 ####[facility] [place] [address], USABasophils (Bld) [#/Vol]0.0 10*3/uLNormal0.0-0.2The The [facility] HospitalComment on above:Order Comment: No: Do not add to previous drawPerformed By: #### 81986 ####[facility] [place] [address], USABasophils/100 WBC (Bld)0.0 %Normal0.0-1.0The The Jewish HospitalComment on above:Order Comment: No: Do not add to previous drawPerformed By: #### 64441 ####[facility] [place] [address], USAEosinophils (Bld) [#/Vol]0.3 10*3/uLNormal0.0-0.5The The Jewish HospitalComment on above: Order Comment: No: Do not add to previous drawPerformed By: #### 66161 ####[facility] [place] [address], [facility] Eosinophils/100 WBC (Bld)1.0 %Normal0.0-6.0The The Jewish HospitalComment on above:Order Comment: No: Do not add to previous drawPerformed By: #### 14439 ####[facility] [facility] [place] [address], [facility] SERVICESErythrocyte distribution width (RBC) [Ratio]14.5 %Litclh78.5-15.0 The The [facility] HospitalComment on above:Order Comment: No: Do not add to previous drawPerformed By: #### 75791 ####[facility] [facility] [place] [address], [facility] SERVICESGIANT PLATELETSPresent NormalThe The Jewish HospitalComment on above:Order Comment: No: Do not add to previous drawPerformed By: #### 88168 ####[facility] [facility] [place] [address], [facility] SERVICESHematocrit (Bld) [Volume fraction]38.5 %Low39.0-50.0The The [facility] HospitalComment on above:Order Comment: No: Do not add to previous drawPerformed By: #### 75632 ####[facility] [place] [address], [facility] Hemoglobin (Bld) [Mass/Vol]13.0 g/oGPkyphn91.0-17.0The The [facility] HospitalComment on above:Order Comment: No: Do not add to previous draw Performed By: #### [id number] ####[facility] [facility] [place] [address], [facility] SERVICESLymphocytes (Bld) [#/Vol]10.6 10*3/uLHigh1.2-4.0The The Jewish HospitalComment on above:Order Comment: No: Do not add to previous drawPerformed By: #### 25441 ####[facility] [place] [address], [place] [address], USALymphocytes/100 WBC (Bld)40.4 % Piocoy39.0-45.0The The Jewish HospitalComment on above:Order Comment: No: Do not add to previous drawPerformed By: #### 30962 ####[facility] [place] [address], [facility] (RBC) [Entitic mass]32.2 cyFfwwvq99.0-33.0The [facility] Comment on above:Order Comment: No: Do not add to previous drawPerformed By: #### 91896 ####[facility] [id number], [facility] SERVICESMCHC (RBC) [Mass/Vol]33.8 g/lDQktatr00.0-35.0The The [facility] HospitalComment on above:Order Comment: No: Do not add to previous draw Performed By: #### 27989 ####[facility] [place] [address], [facility] SERVICESMCV (RBC) [Entitic vol]95.3 hLMjflns33.0-98.0The The [facility] HospitalComment on above:Order Comment: No: Do not add to previous drawPerformed By: #### 68975 ####[facility] [place] [address], USAMonocytes (Bld) [#/Vol]1.3 10*3/uL High0.1-1.0The The Jewish HospitalComment on above:Order Comment: No: Do not add to previous drawPerformed By: #### 64830 ####[facility] [id number], USAMONOS5.1 %Normal 5.0-12.0The The Jewish HospitalComment on above:Order Comment: No: Do not add to previous drawPerformed By: #### 60839 ####[facility] [place] [address], USANeutrophils/100 WBC (Bld) 53.5 %Navalh59.0-72.0The The [facility] HospitalComment on above: Order Comment: No: Do not add to previous drawPerformed By: #### 27437 ####[facility] [place] [address], [place] Nucleated RBC/100 WBC (Bld) [Ratio]0 %Normal0-0The The [facility] HospitalComment on above:Order Comment: No: Do not add to previous drawPerformed By: #### 47059 ####[facility] [facility] [place] [address], [place]AT SSC377 10*3/gLZdrisc327-035Cab The [facility] HospitalComment on above:Order Comment: No: Do not add to previous drawPerformed By: #### 69239 ####[facility] [facility] [place] [address], [facility] SERVICESRBC (Bld) [#/Vol]4.04 10*6/uLLow4.20-5.70The The [facility] HospitalComment on above:Order Comment: No: Do not add to previous draw Performed By: #### 66914 ####[facility] [facility].[place] [id number], USASMUDGE CELLSMANYNormalThe The Jewish HospitalComment on above:Order Comment: No: Do not add to previous drawResult Comment: Result changed by [email or web address] on 08/18/2021 06:13. The previous value wasPresent.Performed By: #### 51607 ####[facility] [facility] [place] [address], USAWBC (Bld) [#/Vol]26.29 10*3/uLHigh4.00-10.60 The The [facility] HospitalComment on above:Order Comment: No: Do not add to previous drawPerformed By: #### 61723 ####[facility] [place] [address], USAMAGNESIUM BLOODon 48-06-5022Tqcvjtlfy [Mass/Vol]1.9 mg/dLNormal1.9-2.7The The [facility] HospitalComment on above:Order Comment: No: Do not add to previous draw Performed By: #### 51530, 97991, 17569 ####[facility] [place] [address], USAPHOSPHORUS BLOODon 08-18-2021 Phosphate [Mass/Vol]3.6 mg/dLNormal2.5-5.0The The [facility] HospitalComment on above:Order Comment: No: Do not add to previous drawPerformed By: #### 44382, 70720, 73067 ####[facility] [place] [address], [place] GLUCOSE LABon 66-60-1804Rxjsnog [Mass/Vol]141 mg/aOUrvf40-060Apl The [facility] HospitalComment on above:Performed By: #### 14428 ####[facility] [place] [address], USAGlucose [Mass/Vol]187 mg/pTAhtn98-689Uap The [facility] HospitalComment on above:Performed By: #### 09696 ####[facility] [place] [address], [place] Glucose [Mass/Vol]168 mg/iYTcsd88-684Zrb [facility] Comment on above:Performed By: #### 28850 ####[facility] [place] [address], USAGlucose [Mass/Vol]183 mg/dLHigh 70-100The The [facility] HospitalComment on above:Performed By: #### 61186 ####[facility] [place] [address], USAGlucose [Mass/Vol]149 mg/cRUftv20-084Cdv The [facility] HospitalComment on above:Performed By: #### 32988 ####[facility] [place] [address], USAGlucose [Mass/Vol]221 mg/dLHigh 70-100The The [facility] HospitalComment on above:Performed By: #### 62599 ####[facility] [place] [address], USAAMMONIA BLOODon 05-62-3336Gfcdmns (P) [Moles/Vol]10 umol/NBpj22-17Keg The [facility] HospitalComment on above:Order Comment: Yes: Add to Previous draw if ablePerformed By: #### 94029 ####[facility] [place] [address], USABASIC METABOLIC PANELon 08-17-2021 Calcium [Mass/Vol]8.6 mg/dLNormal8.6-10.3The [facility] Comment on above:Order Comment: No: Do not add to previous drawPerformed By: #### 94066 ####[facility] [place] [address], USAChloride [Moles/Vol]101 mmol/TKfvblu64-641Zjh The [facility] HospitalComment on above:Order Comment: No: Do not add to previous draw Performed By: #### 91585 ####[facility] [place] [address], USACO2 [Moles/Vol]27 mmol/CCvxbaq67-67Lnu The [facility] HospitalComment on above:Order Comment: No: Do not add to previous drawPerformed By: #### 65782 ####[facility] [place] [address], USACreatinine [Mass/Vol]0.75 mg/dLNormal 0.70-1.30The The [facility] HospitalComment on above:Order Comment: No: Do not add to previous drawPerformed By: #### 74915 ####[facility] [place] [address], USAGFR/1.73 sq M.predicted among blacks MDRD (S/P/Bld) [Vol rate/Area]mL/min/{1.73_m2}Normal>60The The [facility] HospitalComment on above:Order Comment: No: Do not add to previous drawResult Comment: Calculation may not be valid for patients over 70 yearsPerformed By: #### 59596 ####[facility] [facility] [place] [address], USAGFR/1.73 sq M.predicted among non- blacks MDRD (S/P/Bld) [Vol rate/Area]mL/min/{1.73_m2}Normal>60The The [facility] HospitalComment on above:Order Comment: No: Do not add to previous drawResult Comment: Calculation may not be valid for patients over 70 years Performed By: #### 53763 ####[facility] [facility] [place] [address], USAGlucose [Mass/Vol]129 mg/ePTfzh50-060Zzw The [facility] HospitalComment on above:Order Comment: No: Do not add to previous drawPerformed By: #### 15108 ####[facility] [facility] [place] [address], USAPotassium [Moles/Vol]4.0 mmol/LNormal3.5-5.1 The The [facility] HospitalComment on above:Order Comment: No: Do not add to previous drawPerformed By: #### 32420 ####[facility] [facility] [place] [address], USASodium [Moles/Vol]135 mmol/BCwc038-773Aag The [facility] HospitalComment on above:Order Comment: No: Do not add to previous drawPerformed By: #### 40155 ####[facility] [place] [address], [facility] SERVICESUrea nitrogen [Mass/Vol]11 mg/dLNormal7-25The The [facility] HospitalComment on above:Order Comment: No: Do not add to previous drawPerformed By: #### 79432 ####[facility] [facility] [place] [address], [facility] CBC COMPLETE BLOOD COUNTon 82-02-0151Liwgbjhlsyy distribution width (RBC) [Ratio]14.2 %Hzlcav81.5-15.0The The [facility] HospitalComment on above:Order Comment: No: Do not add to previous drawPerformed By: #### 50980 ####[place] [address] [facility] [place] [address], [facility] Hematocrit (Bld) [Volume fraction]38.8 %Low39.0-50.0The The [facility] HospitalComment on above:Order Comment: No: Do not add to previous draw Performed By: #### 84039 ####[facility] [facility] [place] [address], [facility] SERVICESHemoglobin (Bld) [Mass/Vol]13.4 g/dWYfghvw57.0-17.0The The [facility] HospitalComment on above:Order Comment: No: Do not add to previous drawPerformed By: #### 46719 ####[facility] [facility] [place] [address], [facility] SERVICESMCH (RBC) [Entitic mass]32.2 pg Zucdgj14.0-33.0The The [facility] HospitalComment on above:Order Comment: No: Do not add to previous drawPerformed By: #### 34922 ####[facility] [place], [place] [address] [address], [facility] SERVICESMCHC (RBC) [Mass/Vol]34.5 g/wJVrczwx08.0-35.0The The [facility] HospitalComment on above:Order Comment: No: Do not add to previous drawPerformed By: #### 51077 ####[facility] [place] [address], [facility] MCV (RBC) [Entitic vol]93.3 wOVpyxnm66.0-98.0The The [facility] HospitalComment on above:Order Comment: No: Do not add to previous drawPerformed By: #### 45975 ####[facility] [place] [address], [facility] SERVICESNucleated RBC/100 WBC (Bld) [Ratio]0 %Normal0-0The The [facility] HospitalComment on above:Order Comment: No: Do not add to previous drawPerformed By: #### 37256 ####[facility] [facility] [place] [place] [address], [place]AT AUP245 10*3/jEAlxhcn981-036Pev The [facility] HospitalComment on above:Order Comment: No: Do not add to previous drawPerformed By: #### 55202 ####[facility] [place] [address].[place] [address], [facility] SERVICESRBC (Bld) [#/Vol]4.16 10*6/uLLow 4.20-5.70The The [facility] HospitalComment on above:Order Comment: No: Do not add to previous drawPerformed By: #### 08010 ####[facility] [place] [address], [facility] SERVICESWBC (Bld) [#/Vol]26.64 10*3/uLHigh4.00-10.60The The [facility] HospitalComment on above: Order Comment: No: Do not add to previous drawPerformed By: #### 90762 ####[facility] [place] [address].[place] [address], [facility] LACTATE BLOODon 63-62-7766Gijvnuv [Moles/Vol]0.7 mmol/LNormal.5-2.2The The [facility] HospitalComment on above:Order Comment: Yes: Add to Previous draw if ablePerformed By: #### 68144 ####[facility] [place] [address], [place] GLUCOSE LABon 08-17-2021 Glucose [Mass/Vol]146 mg/nQEexx28-180Znn [facility] Comment on above:Performed By: #### 25511 ####[facility] [place] [address], USAGlucose [Mass/Vol]144 mg/dLHigh 70-100The The [facility] HospitalComment on above:Performed By: #### 05061 ####[facility] [place] [address], USAGlucose [Mass/Vol]150 mg/uRBaaz01-117Dua The [facility] HospitalComment on above:Performed By: #### 52520 ####[facility] [place] [address], USAGlucose [Mass/Vol]126 mg/dLHigh 70-100The The [facility] HospitalComment on above:Performed By: #### 96236 ####[facility] [place] [address], USAGlucose [Mass/Vol]166 mg/mDWvbo95-699Uhd The [facility] HospitalComment on above:Performed By: #### 17780 ####[facility] [place] [address], USAGlucose [Mass/Vol]141 mg/dLHigh 70-100The The [facility] HospitalComment on above:Performed By: #### 60112 ####[facility] [place] [address], USABASIC METABOLIC PANELon 11-15-9081Ciabwvo [Mass/Vol]8.4 mg/dLLow 8.6-10.3The The [facility] HospitalComment on above:Order Comment: No: Do not add to previous drawPerformed By: #### 89160 ####[facility] [place] [address], USAChloride [Moles/Vol]101 mmol/MOlvkch64-318Vpd The [facility] HospitalComment on above:Order Comment: No: Do not add to previous drawPerformed By: #### [id number] ####[facility] [place] [address], USACO2 [Moles/Vol] 27 mmol/EEefksx17-50Pfd The [facility] HospitalComment on above: Order Comment: No: Do not add to previous drawPerformed By: #### [id number] ####[facility] [place] [address], [place] Creatinine [Mass/Vol]0.75 mg/dLNormal0.70-1.30The The [facility] HospitalComment on above:Order Comment: No: Do not add to previous drawPerformed By: #### [id number] ####[facility] [place] [address], USAGFR/1.73 sq M.predicted among blacks MDRD (S/P/Bld) [Vol rate/Area]mL/min/{1.73_m2}Normal>60The [facility] Comment on above:Order Comment: No: Do not add to previous drawResult Comment: Calculation may not be valid for patients over 70 yearsPerformed By: #### [id number] ####[facility] [place] [address], [place] GFR/1.73 sq M.predicted among non-blacks MDRD (S/P/Bld) [Vol rate/Area] mL/min/{1.73_m2}Normal>60The The [facility] HospitalComment on above:Order Comment: No: Do not add to previous drawResult Comment: Calculation may not be valid for patients over 70 yearsPerformed By: #### [id number] ####[facility] [place] [address], [place] Glucose [Mass/Vol]146 mg/pIMigs33-455Iuf [facility] Comment on above:Order Comment: No: Do not add to previous drawPerformed By: #### [id number] ####[facility] [place] [address], USAPotassium [Moles/Vol]4.4 mmol/LNormal3.5-5.1The The Jewish HospitalComment on above:Order Comment: No: Do not add to previous draw Performed By: #### [id number] ####[facility] [place] [address], USASodium [Moles/Vol]135 mmol/VIcd101-012Epr The Jewish HospitalComment on above:Order Comment: No: Do not add to previous drawPerformed By: #### [id number] ####[facility] [place] [address], USAUrea nitrogen [Mass/Vol]11 mg/dLNormal7-25The The [facility] HospitalComment on above:Order Comment: No: Do not add to previous drawPerformed By: #### 95624 ####[facility] [place] [address], USACBC COMPLETE BLOOD COUNTon 73-52-8411Sqzktsaxlef distribution width (RBC) [Ratio]14.1 %Tdjsrm67.5-15.0The The Jewish HospitalComment on above:Order Comment: No: Do not add to previous drawPerformed By: #### [id number] ####[facility] [place] [address], USAHematocrit (Bld) [Volume fraction] 38.5 %Low39.0-50.0The The Jewish HospitalComment on above:Order Comment: No: Do not add to previous drawPerformed By: #### 51836 ####[facility] [facility] [place] [address], [facility] SERVICESHemoglobin (Bld) [Mass/Vol]12.8 g/dLLow13.0-17.0The The [facility] HospitalComment on above:Order Comment: No: Do not add to previous drawPerformed By: #### [id number] ####[facility] [facility] [place] [address], [facility] MCH (RBC) [Entitic mass]31.9 mvQdfgnj59.0-33.0The The [facility] HospitalComment on above:Order Comment: No: Do not add to previous drawPerformed By: #### [id number] ####[facility] [facility] [place] [address], [facility] SERVICESMCHC (RBC) [Mass/Vol]33.2 g/xRKpkeic89.0-35.0The The [facility] HospitalComment on above:Order Comment: No: Do not add to previous drawPerformed By: #### [id number] ####[facility] [facility] [place] [address], [facility] SERVICESMCV (RBC) [Entitic vol]96.0 jPUinjpm63.0-98.0 The The Jewish HospitalComment on above:Order Comment: No: Do not add to previous drawPerformed By: #### [id number] ####[facility] [facility] [place] [address], [facility] SERVICESNucleated RBC/100 WBC (Bld) [Ratio]0 %Normal0-0The The [facility] HospitalComment on above:Order Comment: No: Do not add to previous drawPerformed By: #### 90080 ####[facility] [facility] [place] [address], [facility] PLAT [id number] 10*3/hEAzw842-945Fsu The [facility] HospitalComment on above:Order Comment: No: Do not add to previous drawPerformed By: #### 81981 ####[facility] [place] [address], [place] RBC (Bld) [#/Vol]4.01 10*6/uLLow4.20-5.70The [facility] Comment on above:Order Comment: No: Do not add to previous drawPerformed By: #### 71079 ####[facility] [place] [address], USAWBC (Bld) [#/Vol]23.65 10*3/uLHigh4.00-10.60The The [facility] HospitalComment on above:Order Comment: No: Do not add to previous draw Performed By: #### 06430 ####[facility] [place] [address], [place]APOC GLUCOSE LABon 04-21-2046Rstsgcu [Mass/Vol]139 mg/dL Quxs24-403Enm The Jewish HospitalComment on above:Performed By: #### 89870 ####[facility] [place] [address], USAGlucose [Mass/Vol]131 mg/dJMjju84-998Onj The [facility] HospitalComment on above:Performed By: #### 59718 ####[facility] [place] [address], USAGlucose [Mass/Vol]138 mg/dLHigh 70-100The The [facility] HospitalComment on above:Performed By: #### 82560 ####[facility] [place] [address], USAGlucose [Mass/Vol]149 mg/aOTzch95-763Ejx The [facility] HospitalComment on above:Performed By: #### 51454 ####[facility] [place] [address], USAGlucose [Mass/Vol]136 mg/dLHigh 70-100The The [facility] HospitalComment on above:Performed By: #### 63517 ####[facility] [place] [address], USABASIC METABOLIC PANELon 73-37-6507Horojji [Mass/Vol]8.0 mg/dLLow 8.6-10.3The The [facility] HospitalComment on above:Order Comment: No: Do not add to previous drawPerformed By: #### 07806, 56321, 49497 ####[facility] [place] [address], [place] Chloride [Moles/Vol]102 mmol/ZQirevw07-165Jlw The [facility] HospitalComment on above:Order Comment: No: Do not add to previous drawPerformed By: #### 21148, 84055, 47749 ####[facility] [place] [address], USACO2 [Moles/Vol]28 mmol/XAwlexd64-22Lam The [facility] HospitalComment on above:Order Comment: No: Do not add to previous drawPerformed By: #### 13210, 84469, 04874 ####[facility] [place] [address], USACreatinine [Mass/Vol]0.71 mg/dLNormal0.70-1.30The [facility] Comment on above:Order Comment: No: Do not add to previous drawPerformed By: #### 18933, 55062, 41230 ####[facility] [place] [address], USAGFR/1.73 sq M.predicted among blacks MDRD (S/P/Bld) [Vol rate/Area]mL/min/{1.73_m2}Normal>60The [facility] Comment on above:Order Comment: No: Do not add to previous drawResult Comment: Calculation may not be valid for patients over 70 yearsPerformed By: #### 33079, 07461, 49977 ####[facility] [place] [address], USAGFR/1.73 sq M.predicted among non-blacks MDRD (S/P/Bld) [Vol rate/Area]mL/min/{1.73_m2}Normal>60The [facility] Comment on above:Order Comment: No: Do not add to previous drawResult Comment: Calculation may not be valid for patients over 70 yearsPerformed By: #### 85878, 51913, 65976 ####[facility] [place] [address], USAGlucose [Mass/Vol]163 mg/fSYbsq34-970Ryc The [facility] HospitalComment on above:Order Comment: No: Do not add to previous draw Performed By: #### 48494, 22854, 41807 ####[facility] [place] [address], USAPotassium [Moles/Vol]4.0 mmol/L Normal3.5-5.1The The Jewish HospitalComment on above:Order Comment: No: Do not add to previous drawPerformed By: #### 64110, 70778, 27320 ####[facility] [place] [address], [place] Sodium [Moles/Vol]135 mmol/MLsn128-314Zao [facility] Comment on above:Order Comment: No: Do not add to previous drawPerformed By: #### 58553, 71875, 45719 ####[facility] [place] [address], USAUrea nitrogen [Mass/Vol]10 mg/dLNormal7-25The The [facility] HospitalComment on above:Order Comment: No: Do not add to previous drawPerformed By: #### 24878, 97132, 23823 ####[facility] [place] [address], [facility] SERVICESCBC COMPLETE BLOOD COUNTon 82-29-1016Tujydivegbg distribution width (RBC) [Ratio]14.3 %Normal 11.5-15.0The The [facility] HospitalComment on above:Order Comment: No: Do not add to previous drawPerformed By: #### [id number] ####[facility] [facility] [place] [address], [facility] SERVICESHematocrit (Bld) [Volume fraction]37.2 %Low39.0-50.0The The [facility] HospitalComment on above:Order Comment: No: Do not add to previous drawPerformed By: #### 21396 ####[facility] [facility] [place] [address], [facility] Hemoglobin (Bld) [Mass/Vol]12.2 g/dLLow13.0-17.0The The [facility] HospitalComment on above:Order Comment: No: Do not add to previous drawPerformed By: #### 35354 ####[facility] [facility] [place] [address], [facility] (RBC) [Entitic mass]31.9 alXdbnga82.0-33.0The The [facility] HospitalComment on above:Order Comment: No: Do not add to previous drawPerformed By: #### 62349 ####[facility] [facility] [place] [address], [facility] SERVICESMCHC (RBC) [Mass/Vol]32.8 g/jSMvepwb11.0-35.0 The The [facility] HospitalComment on above:Order Comment: No: Do not add to previous drawPerformed By: #### 13300 ####[facility] [place] [address].[place] [address], [facility] (RBC) [Entitic vol] 97.1 lZAidmjl33.0-98.0The The [facility] HospitalComment on above: Order Comment: No: Do not add to previous drawPerformed By: #### 95696 ####[facility] [place] [address], [facility] Nucleated RBC/100 WBC (Bld) [Ratio]0 %Normal0-0The The [facility] HospitalComment on above:Order Comment: No: Do not add to previous drawPerformed By: #### 78356 ####[facility] [facility] [place] [address], USAPLAT UAQ565 10*3/nRIrsnyl224-924Gop The [facility] HospitalComment on above:Order Comment: No: Do not add to previous drawPerformed By: #### 23319 ####[facility] [place] [address].[place] [address], [facility] SERVICESRBC (Bld) [#/Vol]3.83 10*6/uLLow4.20-5.70The The [facility] HospitalComment on above:Order Comment: No: Do not add to previous draw Performed By: #### 47307 ####[facility] [place] [address].[place] [address], [facility] SERVICESWBC (Bld) [#/Vol]25.37 10*3/uLHigh4.00-10.60The The [facility] HospitalComment on above:Order Comment: No: Do not add to previous drawPerformed By: #### 28862 ####[facility] [facility] [place] [address], [facility] SERVICESMAGNESIUM BLOODon 08-15-2021 Magnesium [Mass/Vol]2.0 mg/dLNormal1.9-2.7The The [facility] HospitalComment on above:Order Comment: No: Do not add to previous drawPerformed By: #### 91797, 34659, 04113 ####[facility] [place] [address], [facility] SERVICESPHOSPHORUS BLOODon 01-92-0438Hmefpxlib [Mass/Vol]2.6 mg/dLNormal2.5-5.0The The [facility] HospitalComment on above:Order Comment: No: Do not add to previous drawPerformed By: #### 44488, 26630, 50080 ####[facility] [place] [address], [place] GLUCOSE LABon 33-32-4677Xizgkyq [Mass/Vol]154 mg/xMVqlm56-548 The The [facility] HospitalComment on above:Performed By: #### 50205 ####[facility] [place] [address], [place] Glucose [Mass/Vol]142 mg/rLYcdg80-722Lkq [facility] Comment on above:Performed By: #### 62058 ####[facility] [place] [address], USAGlucose [Mass/Vol]162 mg/dLHigh 70-100The The [facility] HospitalComment on above:Performed By: #### 40144 ####[facility] [place] [address], USAGlucose [Mass/Vol]149 mg/hMJrqk73-523Gnc The [facility] HospitalComment on above:Performed By: #### 39215 ####[facility] [place] [address], USAGlucose [Mass/Vol]179 mg/dLHigh 70-100The The [facility] HospitalComment on above:Performed By: #### 49374 ####[facility] [place] [address], USABASIC METABOLIC PANELon 25-12-0316Phoiugk [Mass/Vol]8.2 mg/dLLow 8.6-10.3The The [facility] HospitalComment on above:Order Comment: No: Do not add to previous drawPerformed By: #### 38437, 88597, 10064 ####[facility] [place] [address], [place] Chloride [Moles/Vol]101 mmol/HXuitgn26-447Amg The [facility] HospitalComment on above:Order Comment: No: Do not add to previous drawPerformed By: #### 29982, 75140, 30200 ####[facility] [place] [address], USACO2 [Moles/Vol]31 mmol/BYleich79-18Olq The [facility] HospitalComment on above:Order Comment: No: Do not add to previous drawPerformed By: #### 14831, 34206, 46564 ####[facility] [place] [address], USACreatinine [Mass/Vol]0.85 mg/dLNormal0.70-1.30The [facility] Comment on above:Order Comment: No: Do not add to previous drawPerformed By: #### 61907, 04426, 50961 ####[facility] [place] [address], USAGFR/1.73 sq M.predicted among blacks MDRD (S/P/Bld) [Vol rate/Area]mL/min/{1.73_m2}Normal>60The [facility] Comment on above:Order Comment: No: Do not add to previous drawResult Comment: Calculation may not be valid for patients over 70 yearsPerformed By: #### 13640, 37197, 34526 ####[facility] [place] [address], USAGFR/1.73 sq M.predicted among non-blacks MDRD (S/P/Bld) [Vol rate/Area]mL/min/{1.73_m2}Normal>60The [facility] Comment on above:Order Comment: No: Do not add to previous drawResult Comment: Calculation may not be valid for patients over 70 yearsPerformed By: #### 20673, 00992, 52389 ####[facility] [place] [address], USAGlucose [Mass/Vol]158 mg/hBDgfx96-375Boa The [facility] HospitalComment on above:Order Comment: No: Do not add to previous draw Performed By: #### 97938, 02211, 85094 ####[facility] [place] [address], USAPotassium [Moles/Vol]3.8 mmol/L Normal3.5-5.1The The [facility] HospitalComment on above:Order Comment: No: Do not add to previous drawPerformed By: #### 31272, 83526, 43777 ####[facility] [place] [address], [place] Sodium [Moles/Vol]137 mmol/IHwqihr194-885Cdc [facility] Comment on above:Order Comment: No: Do not add to previous drawPerformed By: #### 04434, 99789, 97033 ####[facility] [place] [address], USAUrea nitrogen [Mass/Vol]10 mg/dLNormal7-25The The [facility] HospitalComment on above:Order Comment: No: Do not add to previous drawPerformed By: #### 87767, 42050, 16140 ####[facility] [place] [address], USACalcium [Mass/Vol] 8.3 mg/dLLow8.6-10.3The The [facility] HospitalComment on above: Order Comment: No: Do not add to previous drawPerformed By: #### 90702, 81405 ####[facility] [place] [address], [place] Chloride [Moles/Vol]100 mmol/GCuyuur18-731Ugi The [facility] HospitalComment on above:Order Comment: No: Do not add to previous drawPerformed By: #### 75802, 31517 ####[facility] [place] [address], USACO2 [Moles/Vol]30 mmol/GDoebpb60-34Kur The [facility] HospitalComment on above:Order Comment: No: Do not add to previous drawPerformed By: #### 41637, 47141 ####[facility] [place] [address], USACreatinine [Mass/Vol]0.93 mg/dLNormal 0.70-1.30The The [facility] HospitalComment on above:Order Comment: No: Do not add to previous drawPerformed By: #### 44899, 82180 ####[facility] [place] [address], USAGFR/1.73 sq M.predicted among blacks MDRD (S/P/Bld) [Vol rate/Area]mL/min/{1.73_m2}Normal>60 The The [facility] HospitalComment on above:Order Comment: No: Do not add to previous drawResult Comment: Calculation may not be valid for patients over 70 yearsPerformed By: #### 10303, 11876 ####[facility] [facility] [place] [address], USAGFR/1.73 sq M.predicted among non-blacks MDRD (S/P/Bld) [Vol rate/Area]mL/min/{1.73_m2}Normal>60The The [facility] HospitalComment on above:Order Comment: No: Do not add to previous drawResult Comment: Calculation may not be valid for patients over 70 yearsPerformed By: #### 10275, 64663 ####[facility] [place] [address], USAGlucose [Mass/Vol]144 mg/dLHigh 70-100The The [facility] HospitalComment on above:Order Comment: No: Do not add to previous drawPerformed By: #### 49984, 29927 ####[facility] [place] [address], USAPotassium [Moles/Vol]4.3 mmol/LNormal3.5-5.1The The [facility] HospitalComment on above:Order Comment: No: Do not add to previous drawPerformed By: #### 41836, 89801 ####[facility] [facility] [place] [address], USASodium [Moles/Vol]137 mmol/MQrxgzd249-185Sfo The [facility] HospitalComment on above:Order Comment: No: Do not add to previous draw Performed By: #### 29636, 37456 ####[facility] [facility] [place] [address], USAUrea nitrogen [Mass/Vol]10 mg/dLNormal7-25The The [facility] HospitalComment on above:Order Comment: No: Do not add to previous drawPerformed By: #### 06159, 18437 ####[facility] [facility] [place] [address], USACBC COMPLETE BLOOD COUNTon 07-84-5269Jumjuzkzygy distribution width (RBC) [Ratio]14.4 %Ooljxf63.5-15.0The The [facility] HospitalComment on above:Order Comment: No: Do not add to previous drawPerformed By: #### 28198 ####[facility] [facility] [place] [address], USAHematocrit (Bld) [Volume fraction] 36.0 %Low39.0-50.0The The [facility] HospitalComment on above:Order Comment: No: Do not add to previous drawPerformed By: #### 36850 ####[facility] [facility] [place] [address], USAHemoglobin (Bld) [Mass/Vol]12.2 g/dLLow13.0-17.0The The [facility] HospitalComment on above:Order Comment: No: Do not add to previous drawPerformed By: #### 11211 ####[facility] [facility] [place] [address], [facility] MCH (RBC) [Entitic mass]32.3 cmZgwdjx07.0-33.0The The [facility] HospitalComment on above:Order Comment: No: Do not add to previous drawPerformed By: #### 23151 ####[facility] [facility] [place] [address], [facility] SERVICESMCHC (RBC) [Mass/Vol]33.9 g/cNVxmbmy88.0-35.0The The [facility] HospitalComment on above:Order Comment: No: Do not add to previous drawPerformed By: #### 10642 ####[facility] [facility] [place] [address], [facility] SERVICESMCV (RBC) [Entitic vol]95.2 jORslwmt71.0-98.0 The The [facility] HospitalComment on above:Order Comment: No: Do not add to previous drawPerformed By: #### 78105 ####[facility] [facility] [place] [address], [facility] SERVICESNucleated RBC/100 WBC (Bld) [Ratio]0 %Normal0-0The The [facility] HospitalComment on above:Order Comment: No: Do not add to previous drawPerformed By: #### 38401 ####[facility] [place] [address].[place] [address], [facility] PLAT [id number] 10*3/vPHyuzrn712-002Lts The [facility] HospitalComment on above:Order Comment: No: Do not add to previous drawPerformed By: #### 85485 ####[address] [place] [address], [facility] RBC (Bld) [#/Vol]3.78 10*6/uLLow4.20-5.70The [facility] Comment on above:Order Comment: No: Do not add to previous drawPerformed By: #### 69425 ####[facility] [place] [address], [facility] SERVICESWBC (Bld) [#/Vol]22.45 10*3/uLHigh4.00-10.60The The [facility] HospitalComment on above:Order Comment: No: Do not add to previous draw Performed By: #### 71079 ####[facility] [place] [address], USAErythrocyte distribution width (RBC) [Ratio]14.3 % Qehaob89.5-15.0The The [facility] HospitalComment on above:Order Comment: No: Do not add to previous drawPerformed By: #### 59865 ####[facility] [place] [address], [facility] SERVICESHematocrit (Bld) [Volume fraction]37.3 %Low39.0-50.0The [facility] Comment on above:Order Comment: No: Do not add to previous drawPerformed By: #### 78916 ####[facility] [facility] [place] [address], [facility] SERVICESHemoglobin (Bld) [Mass/Vol]12.5 g/dLLow13.0-17.0The The [facility] HospitalComment on above:Order Comment: No: Do not add to previous drawPerformed By: #### 81997 ####[facility] [facility] [place] [address], [facility] SERVICESMCH (RBC) [Entitic mass]32.1 pgNormal 27.0-33.0The The [facility] HospitalComment on above:Order Comment: No: Do not add to previous drawPerformed By: #### 73495 ####[facility] [place] [address], [facility] SERVICESMCHC (RBC) [Mass/Vol]33.5 g/eXSkgcgc13.0-35.0The The [facility] HospitalComment on above:Order Comment: No: Do not add to previous drawPerformed By: #### 99150 ####[facility] [place] [address], [facility] SERVICESMCV (RBC) [Entitic vol]95.9 lKKotwep82.0-98.0The [facility] Comment on above:Order Comment: No: Do not add to previous drawPerformed By: #### 62947 ####[facility] [place] [address], USANucleated RBC/100 WBC (Bld) [Ratio]0 %Normal0-0The The [facility] HospitalComment on above:Order Comment: No: Do not add to previous drawPerformed By: #### 33590 ####[facility] [facility] [place] [address], [facility] SERVICESPLAT [id number] 10*3/wBWwpdue339-684Bqc The [facility] HospitalComment on above:Order Comment: No: Do not add to previous drawPerformed By: #### 37160 ####[facility] [facility] [place] [address], [facility] SERVICESRBC (Bld) [#/Vol]3.89 10*6/uLLow 4.20-5.70The [facility] HospitalComment on above:Order Comment: No: Do not add to previous drawPerformed By: #### 23272 ####[facility] [facility] [place] [address], [facility] SERVICESWBC (Bld) [#/Vol]24.62 10*3/uLHigh4.00-10.60The The [facility] HospitalComment on above: Order Comment: No: Do not add to previous drawPerformed By: #### 16532 ####[facility] [facility] [place] [address], [facility] LACTATE BLOODon 64-11-4109Xqxqtqw [Moles/Vol]1.2 mmol/LNormal.5-2.2The The [facility] HospitalComment on above:Order Comment: No: Do not add to previous drawPerformed By: #### 22349 ####[facility] [place] [address], USAMAGNESIUM BLOODon 08-14-2021 Magnesium [Mass/Vol]2.4 mg/dLNormal1.9-2.7The [facility] HospitalComment on above:Order Comment: No: Do not add to previous drawPerformed By: #### [id number], [id number], [id number] ####[facility] [place] [address], USAMagnesium [Mass/Vol]2.3 mg/dLNormal1.9-2.7The [facility] HospitalComment on above:Order Comment: No: Do not add to previous drawPerformed By: #### [id number], [id number] ####[facility] [facility] [place] [address], USAOperative Reporton [id number] ReportNormalThLima Memorial Hospital PHOSPHORUS BLOODon [id number] [Mass/Vol]1.8 mg/dLLow2.5-5.0The The [facility] HospitalComment on above:Order Comment: No: Do not add to previous drawPerformed By: #### [id number], [id number], [id number] ####[facility] [place] [address], [place] GLUCOSE LABon [id number] [Mass/Vol]156 mg/zGFlbc45-017Eno The Jewish HospitalComment on above:Performed By: #### [id number] ####[facility] [facility] [place] [address], USAGlucose [Mass/Vol]168 mg/dLHigh 70-100The The [facility] HospitalComment on above:Performed By: #### [id number] ####[facility] [place] [address], USAGlucose [Mass/Vol]145 mg/eNAcns73-819Vvw The Jewish HospitalComment on above:Performed By: #### [id number] ####[facility] [place] [address], USAGlucose [Mass/Vol]157 mg/dLHigh 70-100The The Jewish HospitalComment on above:Performed By: #### [id number] ####[facility] [place] [address], USAGlucose [Mass/Vol]153 mg/sKOwmj36-815Azk The Jewish HospitalComment on above:Performed By: #### 61041 ####[facility] [place] [address], USABASIC METABOLIC PANELon 42-49-6233Zimbwtq [Mass/Vol]8.2 mg/dLLow8.6-10.3The The Jewish HospitalComment on above:Order Comment: No: Do not add to previous drawPerformed By: #### 13199, 75090, 18758 ####[facility] [place] [address], USAChloride [Moles/Vol]104 mmol/STlgxws24-601Fij The [facility] HospitalComment on above:Order Comment: No: Do not add to previous drawPerformed By: #### 00923, 46810, 16380 ####[facility] [place] [address], USACO2 [Moles/Vol]27 mmol/KUrmvjw98-89Jcz The Jewish HospitalComment on above:Order Comment: No: Do not add to previous drawPerformed By: #### 93873, 62773, 11571 ####[facility] [place] [address], [place] Creatinine [Mass/Vol]0.87 mg/dLNormal0.70-1.30The The [facility] HospitalComment on above:Order Comment: No: Do not add to previous drawPerformed By: #### 30023, 71120, 33350 ####[facility] [place] [address], USAGFR/1.73 sq M.predicted among blacks MDRD (S/P/Bld) [Vol rate/Area]mL/min/{1.73_m2}Normal>60The The Jewish HospitalComment on above:Order Comment: No: Do not add to previous draw Result Comment: Calculation may not be valid for patients over 70 yearsPerformed By: #### 69574, 78955, 45343 ####[facility] [place] [address], USAGFR/1.73 sq M.predicted among non-blacks MDRD (S/P/Bld) [Vol rate/Area]mL/min/{1.73_m2}Normal>60The The Jewish HospitalComment on above:Order Comment: No: Do not add to previous draw Result Comment: Calculation may not be valid for patients over 70 yearsPerformed By: #### 43239, 32478, 38486 ####[facility] [facility] [place] [address], USAGlucose [Mass/Vol]172 mg/uVYuvh37-221Ayj The [facility] HospitalComment on above:Order Comment: No: Do not add to previous drawPerformed By: #### 22186, 34649, 37237 ####[facility] [place] [address], USAPotassium [Moles/Vol]4.0 mmol/LNormal3.5-5.1The The Jewish HospitalComment on above:Order Comment: No: Do not add to previous drawPerformed By: #### 64952, 75083, 58843 ####[facility] [place] [address], USASodium [Moles/Vol]137 mmol/RTtbdxs203-730Lbk The [facility] HospitalComment on above:Order Comment: No: Do not add to previous drawPerformed By: #### 27446, 57673, 36149 ####[facility] [place] [address], [facility] SERVICESUrea nitrogen [Mass/Vol]10 mg/dLNormal7-25The The [facility] HospitalComment on above:Order Comment: No: Do not add to previous drawPerformed By: #### 70267, 53649, 71447 ####[facility] [facility] [place] [address], [facility] CBC COMPLETE BLOOD COUNTon 06-64-8811Qdmbptsoehq distribution width (RBC) [Ratio]14.5 %Lwjlap52.5-15.0The The Jewish HospitalComment on above:Order Comment: No: Do not add to previous drawPerformed By: #### 70365 ####[facility] [facility] [place] [address], [facility] Hematocrit (Bld) [Volume fraction]38.5 %Low39.0-50.0The The Jewish HospitalComment on above:Order Comment: No: Do not add to previous draw Performed By: #### 56804 ####[facility] [facility] [place] [address], [facility] SERVICESHemoglobin (Bld) [Mass/Vol]12.5 g/dLLow13.0-17.0The The Jewish HospitalComment on above:Order Comment: No: Do not add to previous drawPerformed By: #### 76374 ####[facility] [facility] [place] [address], [facility] SERVICESMCH (RBC) [Entitic mass]31.7 pg Guclvc14.0-33.0The The Jewish HospitalComment on above:Order Comment: No: Do not add to previous drawPerformed By: #### 41075 ####[facility] [place] [address].[place] [address], [facility] SERVICESMCHC (RBC) [Mass/Vol]32.5 g/sOSjpcev10.0-35.0The The Jewish HospitalComment on above:Order Comment: No: Do not add to previous drawPerformed By: #### 05015 ####[facility] [place] [address], [facility] MCV (RBC) [Entitic vol]97.7 pIUjgozv76.0-98.0The The [facility] HospitalComment on above:Order Comment: No: Do not add to previous drawPerformed By: #### 82128 ####[facility] [place] [address], [facility] SERVICESNucleated RBC/100 WBC (Bld) [Ratio]0 %Normal0-0The The Jewish HospitalComment on above:Order Comment: No: Do not add to previous drawPerformed By: #### 30323 ####[facility] [facility] [place] [address], USAPLAT RQT024 10*3/tCHyzatg111-569Wjz The Jewish HospitalComment on above:Order Comment: No: Do not add to previous drawPerformed By: #### 05246 ####[facility] [facility] [place] [address], [facility] SERVICESRBC (Bld) [#/Vol]3.94 10*6/uLLow 4.20-5.70The The Jewish HospitalComment on above:Order Comment: No: Do not add to previous drawPerformed By: #### 95568 ####[facility] [facility] [place] [address], [facility] SERVICESWBC (Bld) [#/Vol]26.01 10*3/uLHigh4.00-10.60The The Jewish HospitalComment on above: Order Comment: No: Do not add to previous drawPerformed By: #### 15601 ####[facility] [place] [address], [place] MAGNESIUM BLOODon 77-69-0901Retaqtafz [Mass/Vol]1.6 mg/dLLow1.9-2.7The The Jewish HospitalComment on above:Order Comment: No: Do not add to previous drawPerformed By: #### 51421, 87065, 77972 ####[facility] [place] [address], USAPHOSPHORUS BLOODon 20-81-0957Rzrkmevgn [Mass/Vol]2.3 mg/dLLow2.5-5.0The The [facility] HospitalComment on above:Order Comment: No: Do not add to previous draw Performed By: #### 15333, 29884, 54089 ####[facility] [place] [address], USAPOC GLUCOSE LABon 08-13-2021 Glucose [Mass/Vol]159 mg/nZJdoe88-600Spy [facility] Comment on above:Performed By: #### 48583 ####[facility] [place] [address], USAGlucose [Mass/Vol]174 mg/dLHigh 70-100The The Jewish HospitalComment on above:Performed By: #### 80715 ####[facility] [place] [address], USAGlucose [Mass/Vol]172 mg/lRJqik41-753Ksj The [facility] HospitalComment on above:Performed By: #### 94030 ####[facility] [place] [address], USAGlucose [Mass/Vol]155 mg/dLHigh 70-100The The [facility] HospitalComment on above:Performed By: #### 16799 ####[facility] [place] [address], USAGlucose [Mass/Vol]168 mg/sHJekw45-239Eit The [facility] HospitalComment on above:Performed By: #### 41148 ####[facility] [place] [address], USAGlucose [Mass/Vol]149 mg/dLHigh 70-100The The [facility] HospitalComment on above:Performed By: #### 84644 ####[facility] [place] [address], USABASIC METABOLIC PANELon 07-10-2168Abgncvl [Mass/Vol]8.5 mg/dLLow 8.6-10.3The The [facility] HospitalComment on above:Order Comment: No: Do not add to previous drawPerformed By: #### 82305, 45279, 31181 ####[facility] [place] [address], [place] Chloride [Moles/Vol]103 mmol/QOxuvjh29-600Vvm The [facility] HospitalComment on above:Order Comment: No: Do not add to previous drawPerformed By: #### 16751, 10281, 11611 ####[facility] [place] [address], USACO2 [Moles/Vol]26 mmol/LUgbjge53-95Ell The [facility] HospitalComment on above:Order Comment: No: Do not add to previous drawPerformed By: #### 22659, 19400, 26383 ####[facility] [place] [address], USACreatinine [Mass/Vol]0.79 mg/dLNormal0.70-1.30The [facility] Comment on above:Order Comment: No: Do not add to previous drawPerformed By: #### 27292, 22427, 93339 ####[facility] [place] [address], USAGFR/1.73 sq M.predicted among blacks MDRD (S/P/Bld) [Vol rate/Area]mL/min/{1.73_m2}Normal>60The [facility] Comment on above:Order Comment: No: Do not add to previous drawResult Comment: Calculation may not be valid for patients over 70 yearsPerformed By: #### 77607, 84769, 34803 ####[facility] [place] [address], USAGFR/1.73 sq M.predicted among non-blacks MDRD (S/P/Bld) [Vol rate/Area]mL/min/{1.73_m2}Normal>60The [facility] Comment on above:Order Comment: No: Do not add to previous drawResult Comment: Calculation may not be valid for patients over 70 yearsPerformed By: #### 56298, 91881, 82811 ####[facility] [place] [address], USAGlucose [Mass/Vol]162 mg/nABkfw34-404Mbf The [facility] HospitalComment on above:Order Comment: No: Do not add to previous draw Performed By: #### 20596, 73675, 00258 ####[facility] [place] [address], USAPotassium [Moles/Vol]3.7 mmol/L Normal3.5-5.1The The [facility] HospitalComment on above:Order Comment: No: Do not add to previous drawPerformed By: #### 42113, 10631, 64944 ####[facility] [place] [address], [place] Sodium [Moles/Vol]137 mmol/VNnopem554-648Ydx [facility] Comment on above:Order Comment: No: Do not add to previous drawPerformed By: #### 06265, 26752, 22961 ####[facility] [place] [address], USAUrea nitrogen [Mass/Vol]15 mg/dLNormal7-25The The [facility] HospitalComment on above:Order Comment: No: Do not add to previous drawPerformed By: #### 48143, 29662, 71249 ####[facility] [place] [address], [facility] SERVICESCB COMPLETE BLOOD COUNTon 19-14-4087Uyysblzribp distribution width (RBC) [Ratio]14.5 %Normal 11.5-15.0The The [facility] HospitalComment on above:Order Comment: No: Do not add to previous drawPerformed By: #### 85157 ####[facility] [facility] [place] [address], [facility] SERVICESHematocrit (Bld) [Volume fraction]42.4 %Mvkdyf92.0-50.0The The [facility] HospitalComment on above:Order Comment: No: Do not add to previous drawPerformed By: #### 53529 ####[facility] [facility] [place] [address], [facility] Hemoglobin (Bld) [Mass/Vol]13.6 g/aSNdibbm02.0-17.0The The [facility] HospitalComment on above:Order Comment: No: Do not add to previous draw Performed By: #### 60146 ####[facility] [facility] [place] [address], [facility] (RBC) [Entitic mass]31.6 mrCldbhc93.0-33.0The The [facility] HospitalComment on above:Order Comment: No: Do not add to previous drawPerformed By: #### 53096 ####[facility] [facility] [place] [address], [facility] SERVICESMCHC (RBC) [Mass/Vol]32.1 g/dL Mtctqj89.0-35.0The The [facility] HospitalComment on above:Order Comment: No: Do not add to previous drawPerformed By: #### 91190 ####[facility] [facility] [place] [address], [facility] SERVICESMCV (RBC) [Entitic vol]98.4 kXGvkg16.0-98.0The The [facility] HospitalComment on above:Order Comment: No: Do not add to previous drawPerformed By: #### 94848 ####[facility] [place] [address], [facility] Nucleated RBC/100 WBC (Bld) [Ratio]0 %Normal0-0The The [facility] HospitalComment on above:Order Comment: No: Do not add to previous drawPerformed By: #### 43279 ####[facility] [place] [address], USAPLAT [id number] 10*3/nSRufucu852-038Rrm The [facility] HospitalComment on above:Order Comment: No: Do not add to previous drawPerformed By: #### 51314 ####[facility] [place] [address], [facility] SERVICESRBC (Bld) [#/Vol]4.31 10*6/uLNormal4.20-5.70The The [facility] HospitalComment on above:Order Comment: No: Do not add to previous drawPerformed By: #### 76299 ####[facility] [place] [address], [facility] SERVICESWBC (Bld) [#/Vol]33.31 10*3/uLHigh4.00-10.60 The The [facility] HospitalComment on above:Order Comment: No: Do not add to previous drawPerformed By: #### 21266 ####[facility] [place] [address], [facility] SERVICESMAGNESIUM BLOODon 13-76-3964Vktshfvaa [Mass/Vol]1.7 mg/dLLow1.9-2.7The The [facility] HospitalComment on above:Order Comment: No: Do not add to previous draw Performed By: #### 98089, 75213, 16899 ####[facility] [place] [address], USAPHOSPHORUS BLOODon 08-12-2021 Phosphate [Mass/Vol]3.3 mg/dLNormal2.5-5.0The The [facility] HospitalComment on above:Order Comment: No: Do not add to previous drawPerformed By: #### 65546, 32974, 82855 ####[facility] [place] [address], [place]APOC GLUCOSE LABon 26-05-8133Jkpiett [Mass/Vol]176 mg/wXFytd35-214Mtd The [facility] HospitalComment on above:Performed By: #### 99834 ####[facility] [place] [address], USAGlucose [Mass/Vol]165 mg/jIFdef03-088Bkx The [facility] HospitalComment on above:Performed By: #### 98254 ####[facility] [place] [address], [place] Glucose [Mass/Vol]153 mg/pEPucs76-506Hjf [facility] Comment on above:Performed By: #### 63989 ####[facility] [place] [address], USAGlucose [Mass/Vol]175 mg/dLHigh 70-100The The [facility] HospitalComment on above:Performed By: #### 10596 ####[facility] [place] [address], USAGlucose [Mass/Vol]171 mg/nCOblb07-655Xna The [facility] HospitalComment on above:Performed By: #### 36555 ####[facility] [place] [address], USAPOC GLUCOSE LABon 08-11-2021 Glucose [Mass/Vol]211 mg/gRKgzm13-506Srr [facility] Comment on above:Performed By: #### 98766 ####[facility] [place] [address], USAGlucose [Mass/Vol]265 mg/dLHigh 70-100The The [facility] HospitalComment on above:Performed By: #### 83340 ####[facility] [place] [address], USAGlucose [Mass/Vol]106 mg/aMPjnc81-219Zox The [facility] HospitalComment on above:Performed By: #### 96843 ####[facility] [facility] [address], USABASIC METABOLIC PANELon 78-17-2182Agmoolu [Mass/Vol]9.1 mg/dLNormal8.6-10.3The The [facility] HospitalComment on above:Performed By: #### 27280 ####[facility] [place] [address], USAChloride [Moles/Vol]101 mmol/JKbqhpk29-973Pfw The [facility] HospitalComment on above: Performed By: #### 75734 ####[facility] [facility] [place] [address], USACO2 [Moles/Vol]27 mmol/VDgtszn86-74Tiy The [facility] HospitalComment on above:Performed By: #### 38220 ####[facility] [place] [address], USACreatinine [Mass/Vol]0.92 mg/dLNormal0.70-1.30The [facility] Comment on above:Performed By: #### 73131 ####[facility] [place] [address], USAGFR/1.73 sq M.predicted among blacks MDRD (S/P/Bld) [Vol rate/Area]mL/min/{1.73_m2}Normal>60The The [facility] HospitalComment on above:Result Comment: Calculation may not be valid for patients over 70 yearsPerformed By: #### 29497 ####[facility] [facility] [place] [address], [facility] SERVICESGFR/1.73 sq M.predicted among non-blacks MDRD (S/P/Bld) [Vol rate/Area]mL/min/{1.73_m2} Normal>60The The [facility] HospitalComment on above:Result Comment: Calculation may not be valid for patients over 70 yearsPerformed By: #### 83700 ####[facility] [facility] [place] [address], [facility] Glucose [Mass/Vol]104 mg/tEZfbd96-361Lhi [facility] Comment on above:Performed By: #### 13908 ####[facility] [facility] [place] [address], USAPotassium [Moles/Vol]3.5 mmol/L Normal3.5-5.1The The [facility] HospitalComment on above:Performed By: #### 91127 ####[facility] [facility] [place] [address], USASodium [Moles/Vol]136 mmol/CYtknim858-151Plt The [facility] HospitalComment on above:Performed By: #### 13954 ####[facility] [facility] [place] [address], [facility] SERVICESUrea nitrogen [Mass/Vol] 23 mg/dLNormal7-25The The [facility] HospitalComment on above: Performed By: #### 10561 ####[facility] [facility] [place] [address], [facility] SERVICESCBC W/DIFFon 98-55-2927SCW IMM GRANS0.1 10*3/uLNormal 0.0-0.2The The [facility] HospitalComment on above:Performed By: #### 05689 ####[facility] [facility] [place] [address], [facility] SERVICESABS NEUTROPHILS4.9 10*3/uLNormal1.6-7.6The The [facility] HospitalComment on above:Performed By: #### 87372 ####[facility] [facility] [place] [address], [facility] SERVICESBasophils (Bld) [#/Vol] 0.1 10*3/uLNormal0.0-0.2The The [facility] HospitalComment on above: Performed By: #### 24258 ####[facility] [facility] [place] [address], [facility] SERVICESBasophils/100 WBC (Bld)0.3 %Normal0.0-1.0The The [facility] HospitalComment on above:Performed By: #### 94551 ####[facility] [facility] [place] [address], [facility] Eosinophils (Bld) [#/Vol]0.1 10*3/uLNormal0.0-0.5The The [facility] HospitalComment on above:Performed By: #### 95752 ####[facility] [facility] [place] [address], [facility] SERVICESEosinophils/100 WBC (Bld) 0.2 %Normal0.0-6.0The The [facility] HospitalComment on above: Performed By: #### 80477 ####[facility] [facility] [place] [address], [facility] SERVICESErythrocyte distribution width (RBC) [Ratio]14.6 % Rgxphd84.5-15.0The The [facility] HospitalComment on above:Performed By: #### 70241 ####[facility] [facility] [place] [address], [facility] SERVICESHematocrit (Bld) [Volume fraction]44.2 %Osupms26.0-50.0 The The [facility] HospitalComment on above:Performed By: #### 38508 ####[facility] [place] [address], [facility] Hemoglobin (Bld) [Mass/Vol]14.3 g/xJAycdrn48.0-17.0The The [facility] HospitalComment on above:Performed By: #### 21299 ####[facility] [place], [place] [address]E[place] [address], [facility] SERVICESIMMATURE GRANS0.3 %Normal 0.0-1.0The The [facility] HospitalComment on above:Performed By: #### 51296 ####[address] [place] [address], [facility] SERVICESLymphocytes (Bld) [#/Vol]20.8 10*3/uLHigh1.2-4.0The The [facility] HospitalComment on above:Performed By: #### 66557 ####[address] [place] [address], [facility] SERVICESLymphocytes/100 WBC (Bld)78.7 %High20.0-45.0The The [facility] HospitalComment on above:Performed By: #### 90205 ####[address] [place] [address], [facility] SERVICESMCH (RBC) [Entitic mass]31.8 pgNormal 27.0-33.0The The [facility] HospitalComment on above:Performed By: #### 70813 ####[facility] [facility] [place] [address], [facility] SERVICESMCHC (RBC) [Mass/Vol]32.4 g/lKAifuyv15.0-35.0The The [facility] HospitalComment on above:Performed By: #### 74968 ####[facility] [place], [place] [address] [address], [facility] SERVICESMCV (RBC) [Entitic vol] 98.4 jCFkeb53.0-98.0The The [facility] HospitalComment on above: Performed By: #### 23341 ####[facility] [facility] [place] [address], [facility] SERVICESMonocytes (Bld) [#/Vol]0.6 10*3/uLNormal0.1-1.0The The [facility] HospitalComment on above:Performed By: #### 78300 ####[facility] [facility] [place] [address], [facility] MONOS2.2 %Low5.0-12.0The The [facility] HospitalComment on above: Performed By: #### 59489 ####[place] [address] [facility] [place] [address], [facility] SERVICESNeutrophils/100 WBC (Bld)18.3 %Low40.0-72.0The The [facility] HospitalComment on above:Performed By: #### 91808 ####[facility] [facility] [place] [address], [facility] Nucleated RBC/100 WBC (Bld) [Ratio]0 %Normal0-0The The [facility] HospitalComment on above:Performed By: #### 81047 ####[facility] [facility] [place] [address], [facility] SERVICESPLAT [id number] 10*3/[id number] The The Jewish HospitalComment on above:Performed By: #### [id number] ####[facility] [facility] [place] [address], [facility] RBC (Bld) [#/Vol]4.49 10*6/uLNormal4.20-5.70The The Jewish HospitalComment on above:Performed By: #### [id number] ####[facility] [place] [address].[place] [address], [facility] SERVICESSMUDGE CELLSMANYNormalThe The Jewish HospitalComment on above:Performed By: #### [id number] ####[facility] [facility] [place] [address], [facility] WBC (Bld) [#/Vol]26.44 10*3/uLHigh4.00-10.60The The Jewish HospitalComment on above:Performed By: #### [id number] ####[facility] [facility] [place] [address], [facility] SERVICESPROTHROMBIN TIMEon [id number] Coag (PPP) [Relative time]0.99 {INR}Normal0.91-1.16The The Jewish HospitalComment on above:Result Comment: [facility] RECOMMENDED INR FOR WARFARIN THERAPY CONDITION INRPROPHYLAXIS OF VENOUS THROMBOSIS 2-3(HIGH-RISK SURGERY)TREATMENT OF VENOUS THROMBOSIS 2-3TREATMENT OF PULMONARY EMBOLISM 2-3PREVENTION OF SYSTEMIC EMBOLISM: 2-3 ACUTE MYOCARDIAL INFARCTION TISSUE HEART VALVES VALVULAR HEART DISEASE ATRIAL FIBRILLATION RECURRENT SYSTEMIC EMBOLISMMECHANICAL HEART VALVE 2.5-3.5 FROM: ORAL ANTICOAGULANTS. MECHANISM OF ACTION, CLINICALEFFECTIVENESS, AND OPTIMAL THERAPEU TIC RANGE. [id number];108:231S-246S.Performed By: #### [id number] ####[facility] [facility] [place] [address], [facility] SERVICESPT Coag (PPP) [Time]13.1 fHoqqik87.3-14.8The The Jewish HospitalComment on above:Result Comment: ALL RESULTS MUST BE INTERPRETED WITH RESPECT TO BLOOD DRAWING ARTIFACTOR DILUTION ERROR OF ANTICOAGULANT AT THE TIME OF SAMPLING. Performed By: #### [id number] ####[facility] [place] [address], USAOperative Reporton [id number] ReportNormalThe The Jewish HospitalPOC GLUCOSE LABon [id number] [Mass/Vol]139 mg/aZLosq56-423Pzf The [facility] HospitalComment on above:Performed By: #### 48490 ####[facility] [place] [address], USAPOC GLUCOSE LABon 32-14-9724Tejxwfd [Mass/Vol]101 mg/iBZvdk31-769Wis The [facility] HospitalComment on above:Performed By: #### 94069 ####[facility] [place] [address], USAGlucose [Mass/Vol]127 mg/eQJnbj55-775Oef The [facility] HospitalComment on above:Performed By: #### 08822 ####[facility] [place] [address], [place] POC GLUCOSE LABon [id number] [Mass/Vol]206 mg/lFRiox11-436Tae The [facility] HospitalComment on above:Performed By: #### 17296 ####[facility] [place] [address], USAGlucose [Mass/Vol]79 mg/bTPbysvh81-389Oow The [facility] HospitalComment on above:Performed By: #### 55824 ####[facility] [place] [address], USAGlucose [Mass/Vol]186 mg/cULowd05-835Qkl The [facility] HospitalComment on above:Performed By: #### 67359 ####[facility] [place] [address], [place] Glucose [Mass/Vol]132 mg/qRWmed91-920Tzu [facility] Comment on above:Performed By: #### 17876 ####[facility] [place] [address], USABASIC METABOLIC PANELon 11-07-2020 Calcium [Mass/Vol]8.4 mg/dLLow8.6-10.3The [facility] Comment on above:Order Comment: No: Do not add to previous drawPerformed By: #### 78455, 67167 ####[facility] [place] [address], USAChloride [Moles/Vol]104 mmol/XWhcsqw16-888Qxy The [facility] HospitalComment on above:Order Comment: No: Do not add to previous drawPerformed By: #### 05706, 53551 ####[facility] [place] [address], USACO2 [Moles/Vol]29 mmol/L Oielju91-73Ydo The [facility] HospitalComment on above:Order Comment: No: Do not add to previous drawPerformed By: #### 86851, 19418 ####[facility] [place] [address], [place] Creatinine [Mass/Vol]0.92 mg/dLNormal0.70-1.30The The [facility] HospitalComment on above:Order Comment: No: Do not add to previous drawPerformed By: #### 13591, 91483 ####[facility] [address], USAGFR/1.73 sq M.predicted among blacks MDRD (S/P/Bld) [Vol rate/Area]mL/min/{1.73_m2}Normal>60The [facility] Comment on above:Order Comment: No: Do not add to previous drawResult Comment: Calculation may not be valid for patients over 70 yearsPerformed By: #### 51581, 10604 ####[facility] [place] [address], USAGFR/1.73 sq M.predicted among non-blacks MDRD (S/P/Bld) [Vol rate/Area]mL/min/{1.73_m2}Normal>60The [facility] Comment on above:Order Comment: No: Do not add to previous drawResult Comment: Calculation may not be valid for patients over 70 yearsPerformed By: #### 95146, 11881 ####[facility] [place] [address], USAGlucose [Mass/Vol]92 mg/yVKuvmuv68-970Exg The [facility] HospitalComment on above:Order Comment: No: Do not add to previous drawPerformed By: #### 04723, 46320 ####[facility] [facility] [address], USAPotassium [Moles/Vol]3.9 mmol/LNormal3.5-5.1The The [facility] HospitalComment on above:Order Comment: No: Do not add to previous drawPerformed By: #### 88307, 03901 ####[facility] [place] [address], USASodium [Moles/Vol]138 mmol/EHrqmqf313-825Vdd The [facility] HospitalComment on above:Order Comment: No: Do not add to previous drawPerformed By: #### 13205, 30530 ####[facility] [place] [address], [place] Urea nitrogen [Mass/Vol]13 mg/dLNormal7-25The The [facility] HospitalComment on above:Order Comment: No: Do not add to previous drawPerformed By: #### 46937, 04055 ####[facility] [place] [address], USACBC W/DIFFon [id number] IMM GRANS0.1 10*3/uLNormal 0.0-0.2The The [facility] HospitalComment on above:Order Comment: No: Do not add to previous drawPerformed By: #### 05343 ####[facility] [facility].[place] [id number], USAABS NEUTROPHILS3.3 10*3/uLNormal1.6-7.6The The [facility] HospitalComment on above: Order Comment: No: Do not add to previous drawPerformed By: #### 74394 ####[facility] [facility] [place] [address], [place] Basophils (Bld) [#/Vol]0.1 10*3/uLNormal0.0-0.2The The [facility] HospitalComment on above:Order Comment: No: Do not add to previous drawPerformed By: #### 13935 ####[facility] [facility] [place] [address], USABasophils/100 WBC (Bld)0.3 %Normal0.0-1.0The The [facility] HospitalComment on above:Order Comment: No: Do not add to previous draw Performed By: #### 83748 ####[facility] [facility] [place] [address], USAEosinophils (Bld) [#/Vol]0.2 10*3/uLNormal0.0-0.5The The [facility] HospitalComment on above:Order Comment: No: Do not add to previous drawPerformed By: #### 23898 ####[facility] [facility] [place] [address], USAEosinophils/100 WBC (Bld)0.9 % Normal0.0-6.0The The [facility] HospitalComment on above:Order Comment: No: Do not add to previous drawPerformed By: #### 81228 ####[facility] [facility] [place] [address], USAErythrocyte distribution width (RBC) [Ratio]14.9 %Vjurec06.5-15.0The The [facility] HospitalComment on above:Order Comment: No: Do not add to previous draw Performed By: #### 05785 ####[facility] [place] [address], USAHematocrit (Bld) [Volume fraction]31.8 %Low39.0-50.0The The [facility] HospitalComment on above:Order Comment: No: Do not add to previous drawPerformed By: #### 40659 ####[facility] [facility] [place] [address], USAHemoglobin (Bld) [Mass/Vol]10.0 g/dLLow13.0-17.0The The [facility] HospitalComment on above:Order Comment: No: Do not add to previous drawPerformed By: #### 89081 ####[facility] [facility] [place] [address], USAIMMATURE GRANS 0.5 %Normal0.0-1.0The The [facility] HospitalComment on above:Order Comment: No: Do not add to previous drawPerformed By: #### 98488 ####[facility] [place] [address].[place] [address], USALymphocytes (Bld) [#/Vol]20.2 10*3/uLHigh1.2-4.0The [facility] Comment on above:Order Comment: No: Do not add to previous drawPerformed By: #### 71583 ####[facility] [facility] [place] [address], USALymphocytes/100 WBC (Bld)83.1 %High20.0-45.0The The [facility] HospitalComment on above:Order Comment: No: Do not add to previous draw Performed By: #### 97196 ####[facility] [place] [address] [place] [address], [facility] (RBC) [Entitic mass]31.6 rbPwrywb24.0-33.0The The [facility] HospitalComment on above:Order Comment: No: Do not add to previous drawPerformed By: #### 23532 ####[facility] [facility] [place] [address], [facility] (RBC) [Mass/Vol]31.4 g/dLLow 32.0-35.0The The [facility] HospitalComment on above:Order Comment: No: Do not add to previous drawPerformed By: #### 82178 ####[address] [place] [address], [facility] (RBC) [Entitic vol] 100.6 sAWerq64.0-98.0The The [facility] HospitalComment on above: Order Comment: No: Do not add to previous drawPerformed By: #### 12555 ####[facility] [facility] [place] [address], [facility] Monocytes (Bld) [#/Vol]0.4 10*3/uLNormal0.1-1.0The The [facility] HospitalComment on above:Order Comment: No: Do not add to previous drawPerformed By: #### 15407 ####[facility] [facility] [place] [address], USAMONOS1.6 %Low5.0-12.0The [facility] Comment on above:Order Comment: No: Do not add to previous drawPerformed By: #### 82422 ####[facility] [facility] [place] [address], [facility] SERVICESNeutrophils/100 WBC (Bld)13.6 %Low40.0-72.0The The [facility] HospitalComment on above:Order Comment: No: Do not add to previous draw Performed By: #### 77476 ####[facility] [place] [address], USANucleated RBC/100 WBC (Bld) [Ratio]0 %Normal0-0The The [facility] HospitalComment on above:Order Comment: No: Do not add to previous drawPerformed By: #### 17054 ####[facility] [place] [address], USAPLAT JGI559 10*3/iLFsewep336-209 The The [facility] HospitalComment on above:Order Comment: No: Do not add to previous drawPerformed By: #### 61973 ####[facility] [address], [facility] SERVICESRBC (Bld) [#/Vol]3.16 10*6/uLLow4.20-5.70The The [facility] HospitalComment on above:Order Comment: No: Do not add to previous drawPerformed By: #### 48344 ####[facility] [place] [address], USASMUDGE CELLS MANY PRESENTNormalThe The Jewish HospitalComment on above:Order Comment: No: Do not add to previous drawResult Comment: This result added by [facility] on 11/07/2020 09:18.AUTO DIFPerformed By: #### 06035 ####[facility] [address], [facility] SERVICESWBC (Bld) [#/Vol] 24.33 10*3/uLHigh4.00-10.60The The [facility] HospitalComment on above:Order Comment: No: Do not add to previous drawPerformed By: #### 45113 ####[facility] [place] [address], [place] MAGNESIUM BLOODon [id number] [Mass/Vol]2.0 mg/dLNormal1.9-2.7The The [facility] HospitalComment on above:Order Comment: No: Do not add to previous drawPerformed By: #### 36992, 64798 ####[facility] [place] [address], USAPOC GLUCOSE LABon [id number] [Mass/Vol]164 mg/yXFusk04-900Wzk The [facility] HospitalComment on above:Performed By: #### 88095 ####[facility] [place] [address], USAGlucose [Mass/Vol]128 mg/dLHigh 70-100The The [facility] HospitalComment on above:Performed By: #### 40754 ####[facility] [place] [address], USAGlucose [Mass/Vol]143 mg/wGWjdl53-997Zeo The [facility] HospitalComment on above:Performed By: #### 01311 ####[facility] [place] [address], USAGlucose [Mass/Vol]100 mg/dLNormal 70-100The The [facility] HospitalComment on above:Performed By: #### 95977 ####[facility] [place] [address], USABASIC METABOLIC PANELon 79-19-4528Rxgltuc [Mass/Vol]8.2 mg/dLLow 8.6-10.3The The [facility] HospitalComment on above:Order Comment: No: Do not add to previous drawPerformed By: #### 23450, 46872 ####[facility] [place] [address], USAChloride [Moles/Vol]105 mmol/QXvtscl76-103Qkv The [facility] HospitalComment on above:Order Comment: No: Do not add to previous drawPerformed By: #### 50179, 86076 ####[facility] [place] [address], USACO2 [Moles/Vol]28 mmol/RJlqgau04-11Pye The [facility] HospitalComment on above:Order Comment: No: Do not add to previous drawPerformed By: #### 89105, 24141 ####[facility] [place] [address], USACreatinine [Mass/Vol]0.86 mg/dLNormal0.70-1.30The The [facility] HospitalComment on above:Order Comment: No: Do not add to previous drawPerformed By: #### 86505, 41870 ####[facility] [place] [address], USAGFR/1.73 sq M.predicted among blacks MDRD (S/P/Bld) [Vol rate/Area]mL/min/{1.73_m2}Normal>60The The [facility] HospitalComment on above:Order Comment: No: Do not add to previous drawResult Comment: Calculation may not be valid for patients over 70 yearsPerformed By: #### 51465, 19963 ####[facility] [place] [address], USAGFR/1.73 sq M.predicted among non- blacks MDRD (S/P/Bld) [Vol rate/Area]mL/min/{1.73_m2}Normal>60The The [facility] HospitalComment on above:Order Comment: No: Do not add to previous drawResult Comment: Calculation may not be valid for patients over 70 years Performed By: #### 36402, 45293 ####[facility] [place] [address], USAGlucose [Mass/Vol]115 mg/nLQmgf43-679Cbl The [facility] HospitalComment on above:Order Comment: No: Do not add to previous drawPerformed By: #### 65243, 88092 ####[facility] [place] [address], USAPotassium [Moles/Vol]4.2 mmol/LNormal3.5-5.1The The [facility] HospitalComment on above:Order Comment: No: Do not add to previous drawPerformed By: #### 64848, 04941 ####[facility] [facility] [place] [address], [facility] Sodium [Moles/Vol]137 mmol/VKuhcvi708-547Wko [facility] Comment on above:Order Comment: No: Do not add to previous drawPerformed By: #### 68027, 60129 ####[facility] [facility] [place] [address], [facility] SERVICESUrea nitrogen [Mass/Vol]10 mg/dLNormal7-25The The [facility] HospitalComment on above:Order Comment: No: Do not add to previous drawPerformed By: #### 79120, 20754 ####[facility] [place] [address].[place] [address], [facility] SERVICESCBC W/DIFFon [id number] IMM GRANS0.2 10*3/uLNormal0.0-0.2The The [facility] HospitalComment on above:Order Comment: No: Do not add to previous drawPerformed By: #### 46204 ####[address] [place] [address], [facility] ABS NEUTROPHILS3.8 10*3/uLNormal1.6-7.6The [facility] Comment on above:Order Comment: No: Do not add to previous drawPerformed By: #### 85991 ####[facility] [facility] [place] [address], [facility] SERVICESBasophils (Bld) [#/Vol]0.1 10*3/uLNormal0.0-0.2The The [facility] HospitalComment on above:Order Comment: No: Do not add to previous drawPerformed By: #### 48579 ####[address] [place] [address], [facility] SERVICESBasophils/100 WBC (Bld)0.3 %Normal0.0-1.0The The [facility] HospitalComment on above:Order Comment: No: Do not add to previous drawPerformed By: #### 14093 ####[facility] [facility] [place] [address], [facility] SERVICESEosinophils (Bld) [#/Vol]0.2 10*3/uLNormal0.0-0.5The The [facility] HospitalComment on above: Order Comment: No: Do not add to previous drawPerformed By: #### 19783 ####[facility] [facility] [place] [address], [facility] Eosinophils/100 WBC (Bld)0.7 %Normal0.0-6.0The The [facility] HospitalComment on above:Order Comment: No: Do not add to previous drawPerformed By: #### 33244 ####[facility] [place] [address], [facility] SERVICESErythrocyte distribution width (RBC) [Ratio]14.9 %Wyfmlu98.5-15.0 The The [facility] HospitalComment on above:Order Comment: No: Do not add to previous drawPerformed By: #### 24028 ####[facility] [place] [address], [facility] SERVICESHematocrit (Bld) [Volume fraction]32.5 %Low39.0-50.0The The [facility] HospitalComment on above:Order Comment: No: Do not add to previous drawPerformed By: #### 06947 ####[facility] [place] [address], [facility] Hemoglobin (Bld) [Mass/Vol]10.6 g/dLLow13.0-17.0The The [facility] HospitalComment on above:Order Comment: No: Do not add to previous drawPerformed By: #### 35259 ####[facility] [place] [address], USAIMMATURE GRANS0.7 %Normal0.0-1.0The The [facility] HospitalComment on above:Order Comment: No: Do not add to previous drawPerformed By: #### 92080 ####[facility] [place] [address], USALymphocytes (Bld) [#/Vol]23.3 10*3/uLHigh1.2-4.0The The [facility] HospitalComment on above:Order Comment: No: Do not add to previous drawPerformed By: #### 05461 ####[facility] [place] [address], USALymphocytes/100 WBC (Bld)81.5 %High20.0-45.0 The The [facility] HospitalComment on above:Order Comment: No: Do not add to previous drawPerformed By: #### 39627 ####[facility] [facility] [place] [address], [facility] SERVICESMCH (RBC) [Entitic mass] 32.2 xwNalgiw54.0-33.0The The [facility] HospitalComment on above: Order Comment: No: Do not add to previous drawPerformed By: #### 36421 ####[facility] [facility] [place] [address], [place] MCHC (RBC) [Mass/Vol]32.6 g/lRHzfhog86.0-35.0The The [facility] HospitalComment on above:Order Comment: No: Do not add to previous drawPerformed By: #### 12277 ####[facility] [place] [address], [facility] SERVICESMCV (RBC) [Entitic vol]98.8 kJFyqy24.0-98.0The The [facility] HospitalComment on above:Order Comment: No: Do not add to previous drawPerformed By: #### 42196 ####[facility] [place] [address], USAMonocytes (Bld) [#/Vol]1.0 10*3/uLNormal 0.1-1.0The The [facility] HospitalComment on above:Order Comment: No: Do not add to previous drawPerformed By: #### 77138 ####[facility] [place] [address], USAMONOS3.5 %Low5.0-12.0The The [facility] HospitalComment on above:Order Comment: No: Do not add to previous drawPerformed By: #### 52480 ####[facility] [place] [address], USANeutrophils/100 WBC (Bld)13.3 %Low 40.0-72.0The The [facility] HospitalComment on above:Order Comment: No: Do not add to previous drawPerformed By: #### 98430 ####[facility] [facility] [place] [address], USANucleated RBC/100 WBC (Bld) [Ratio]0 %Normal0-0The The [facility] HospitalComment on above:Order Comment: No: Do not add to previous drawPerformed By: #### 52933 ####[facility] [facility] [place] [address], [place] PLAT VEN067 10*3/nRSetnep498-035Dxt The [facility] HospitalComment on above:Order Comment: No: Do not add to previous drawPerformed By: #### 91748 ####[facility] [facility] [place] [address], [place] RBC (Bld) [#/Vol]3.29 10*6/uLLow4.20-5.70The [facility] Comment on above:Order Comment: No: Do not add to previous drawPerformed By: #### 68467 ####[facility] [place] [address], USASMUDGE CELLSMANYNormalThe The [facility] HospitalComment on above:Order Comment: No: Do not add to previous drawPerformed By: #### 03435 ####[facility] [place] [address], [place] WBC (Bld) [#/Vol]28.54 10*3/uLHigh4.00-10.60The The [facility] HospitalComment on above:Order Comment: No: Do not add to previous drawPerformed By: #### 41847 ####[facility] [place] [address], USAMAGNESIUM BLOODon 25-97-0066Mwwrdmizz [Mass/Vol]2.1 mg/dLNormal 1.9-2.7The The [facility] HospitalComment on above:Order Comment: No: Do not add to previous drawPerformed By: #### 26337, 40368 ####[facility] [place] [address], USAPOC GLUCOSE LABon 66-60-0301Yvfttaq [Mass/Vol]155 mg/tDZxvq86-729Vac The [facility] HospitalComment on above:Performed By: #### 48010 ####[facility] [place] [address], USAGlucose [Mass/Vol]161 mg/dLHigh 70-100The The [facility] HospitalComment on above:Performed By: #### 10264 ####[facility] [place] [address], USAGlucose [Mass/Vol]118 mg/jDGxdb18-317Wfc The [facility] HospitalComment on above:Performed By: #### 38772 ####[facility] [place] [address], USAGlucose [Mass/Vol]119 mg/dLHigh 70-100The The [facility] HospitalComment on above:Performed By: #### 64034 ####[facility] [place] [address], USABASIC METABOLIC PANELon 46-14-6326Mtxejsb [Mass/Vol]8.2 mg/dLLow 8.6-10.3The The [facility] HospitalComment on above:Order Comment: No: Do not add to previous drawNURSE DRAW RN CINDYPerformed By: #### 01176, 37878 ####[facility] [place] [address], USAChloride [Moles/Vol]106 mmol/GEwulom64-324Vky The [facility] HospitalComment on above:Order Comment: No: Do not add to previous drawNURSE DRAW RN CINDYPerformed By: #### 92561, 42829 ####[facility] [place] [address], USACO2 [Moles/Vol]25 mmol/L Nhihxf06-99Syv The [facility] HospitalComment on above:Order Comment: No: Do not add to previous drawNURSE DRAW RN CINDYPerformed By: #### 96624, 70913 ####[facility] [facility] [place] [address], USACreatinine [Mass/Vol]0.84 mg/dLNormal0.70-1.30The The [facility] HospitalComment on above:Order Comment: No: Do not add to previous drawNURSE DRAW RN CINDYPerformed By: #### 40250, 85549 ####[facility] [facility] [place] [address], USAGFR/1.73 sq M.predicted among blacks MDRD (S/P/Bld) [Vol rate/Area]mL/min/{1.73_m2}Normal>60The [facility] HospitalComment on above:Order Comment: No: Do not add to previous drawNURSE DRAW RN CINDYResult Comment: Calculation may not be valid for patients over 70 yearsPerformed By: #### 95743, 75225 ####[facility] [facility] [place] [address], [facility] SERVICESGFR/1.73 sq M.predicted among non-blacks MDRD (S/P/Bld) [Vol rate/Area]mL/min/{1.73_m2} Normal>60The [facility] HospitalComment on above:Order Comment: No: Do not add to previous drawNURSE DRAW RN CINDYResult Comment: Calculation may not be valid for patients over 70 yearsPerformed By: #### [id number], [id number] ####[facility] [facility] [place] [address], [facility] Glucose [Mass/Vol]134 mg/[id number] [facility] Comment on above:Order Comment: No: Do not add to previous drawNURSE DRAW RN CINDYPerformed By: #### [id number], [id number] ####[facility] [facility] [place] [address], [facility] SERVICESPotassium [Moles/Vol]4.0 mmol/LNormal3.5-5.1 The [facility] HospitalComment on above:Order Comment: No: Do not add to previous drawNURSE DRAW RN CINDYPerformed By: #### [id number], [id number] ####[facility] [facility] [place] [address], [facility] Sodium [Moles/Vol]136 mmol/BUhpqgr413-522Bqa [facility] Comment on above:Order Comment: No: Do not add to previous drawNURSE DRAW RN CINDYPerformed By: #### [id number], [id number] ####[facility] [facility] [place] [address], [facility] SERVICESUrea nitrogen [Mass/Vol]9 mg/dLNormal7-25The [facility] HospitalComment on above:Order Comment: No: Do not add to previous drawNURSE DRAW RN CINDYPerformed By: #### [id number], [id number] ####[facility] [facility] [place] [address], [facility] CBC W/DIFFon [id number] IMM GRANS0.2 10*3/uLNormal0.0-0.2The [facility] HospitalComment on above:Order Comment: No: Do not add to previous drawNURSE DRAW RN CINDYPerformed By: #### [id number] ####[facility] [facility] [place] [address], USAABS NEUTROPHILS4.1 10*3/uLNormal 1.6-7.6The The Jewish HospitalComment on above:Order Comment: No: Do not add to previous drawNURSE DRAW RN CINDYPerformed By: #### [id number] ####[facility] [facility] [place] [address], [place] Basophils (Bld) [#/Vol]0.1 10*3/uLNormal0.0-0.2The The Jewish HospitalComment on above:Order Comment: No: Do not add to previous drawNURSE DRAW RN CINDYPerformed By: #### [id number] ####[facility] [facility] [place] [address], [facility] SERVICESBasophils/100 WBC (Bld)0.3 %Normal0.0-1.0The The Jewish HospitalComment on above:Order Comment: No: Do not add to previous drawNURSE DRAW RN CINDYPerformed By: #### 99542 ####[facility] [facility] [place] [address], [facility] SERVICESEosinophils (Bld) [#/Vol]0.2 10*3/uLNormal0.0-0.5The [facility] Comment on above:Order Comment: No: Do not add to previous drawNURSE DRAW RN CINDYPerformed By: #### 83624 ####[facility] [facility] [place] [address], USAEosinophils/100 WBC (Bld)0.7 %Normal0.0-6.0 The The Jewish HospitalComment on above:Order Comment: No: Do not add to previous drawNURSE DRAW RN CINDYPerformed By: #### [id number] ####[facility] [facility] [place] [address], [facility] Erythrocyte distribution width (RBC) [Ratio]14.8 %Ywjltm61.5-15.0The The Jewish HospitalComment on above:Order Comment: No: Do not add to previous drawNURSE DRAW RN CINDYPerformed By: #### [id number] ####[facility] [facility] [place] [address], [facility] SERVICESHematocrit (Bld) [Volume fraction]32.3 %Low39.0-50.0The [facility] Comment on above:Order Comment: No: Do not add to previous drawNURSE DRAW RN CINDYPerformed By: #### [id number] ####[facility] [facility] [place] [address], [facility] SERVICESHemoglobin (Bld) [Mass/Vol]10.4 g/dLLow 13.0-17.0The The Jewish HospitalComment on above:Order Comment: No: Do not add to previous drawNURSE DRAW RN CINDYPerformed By: #### [id number] ####[facility] [facility] [place] [address], [place] IMMATURE GRANS0.6 %Normal0.0-1.0The The Jewish HospitalComment on above:Order Comment: No: Do not add to previous drawNURSE DRAW RN JESSE Performed By: #### 99011 ####[facility] [place] [address].[place] [address], [facility] SERVICESLymphocytes (Bld) [#/Vol]22.1 10*3/uLHigh1.2-4.0The The Jewish HospitalComment on above:Order Comment: No: Do not add to previous drawNURSE DRAW RN CINDYPerformed By: #### 42135 ####[facility] [facility] [place] [address], [facility] SERVICESLymphocytes/100 WBC (Bld)82.1 %High20.0-45.0The The Jewish HospitalComment on above:Order Comment: No: Do not add to previous drawNURSE DRAW RN CINDYPerformed By: #### 11504 ####[facility] [facility] [place] [address], [facility] (RBC) [Entitic mass]31.9 hzYtfvea15.0-33.0The The Jewish HospitalComment on above:Order Comment: No: Do not add to previous drawNURSE DRAW RN CINDYPerformed By: #### 24601 ####[facility] [facility] [place] [address], [facility]HC (RBC) [Mass/Vol]32.2 g/qQVyqqcr60.0-35.0The The Jewish HospitalComment on above:Order Comment: No: Do not add to previous drawNURSE DRAW RN JESSE Performed By: #### [id number] ####[facility] [facility] [place] [address], [facility] (RBC) [Entitic vol]99.1 iBQigd37.0-98.0The The Jewish HospitalComment on above:Order Comment: No: Do not add to previous drawNURSE DRAW RN CINDYPerformed By: #### [id number] ####[facility] [facility] [place] [address], [facility] SERVICESMonocytes (Bld) [#/Vol]0.3 10*3/uLNormal0.1-1.0The The Jewish HospitalComment on above:Order Comment: No: Do not add to previous drawNURSE DRAW RN JESSE Performed By: #### 22446 ####[facility] [facility] [place] [address], USAMONOS1.1 %Low5.0-12.0The The Jewish HospitalComment on above:Order Comment: No: Do not add to previous drawNURSE DRAW RN CINDYPerformed By: #### 23755 ####[facility] [place] [address], USANeutrophils/100 WBC (Bld)15.2 %Low40.0-72.0 The The Jewish HospitalComment on above:Order Comment: No: Do not add to previous drawNURSE DRAW RN CINDYPerformed By: #### [id number] ####[facility] [facility] [place] [address], [facility] Nucleated RBC/100 WBC (Bld) [Ratio]0 %Normal0-0The The Jewish HospitalComment on above:Order Comment: No: Do not add to previous drawNURSE DRAW RN CINDYPerformed By: #### 54477 ####[facility] [place] [address], USAPLAT CJR930 10*3/cCQxlsac730-618Dzx The Jewish HospitalComment on above:Order Comment: No: Do not add to previous drawNURSE DRAW RN CINDYPerformed By: #### 84562 ####[facility] [facility] [place] [address], [facility] SERVICESRBC (Bld) [#/Vol]3.26 10*6/uLLow4.20-5.70The The Jewish HospitalComment on above:Order Comment: No: Do not add to previous drawNURSE DRAW RN JESSE Performed By: #### 17068 ####[facility] [place] [address], [facility] SERVICESSMUDGE CELLSManyNormalThe The Jewish HospitalComment on above:Order Comment: No: Do not add to previous drawNURSE DRAW RN CINDYPerformed By: #### 21595 ####[facility] [place] [address], USAWBC (Bld) [#/Vol]26.95 10*3/uLHigh4.00-10.60 The The Jewish HospitalComment on above:Order Comment: No: Do not add to previous drawNURSE DRAW RN CINDYPerformed By: #### 06660 ####[facility] [facility] [place] [address], [facility] MAGNESIUM BLOODon 36-51-3765Mzxgiuuoj [Mass/Vol]1.8 mg/dLLow1.9-2.7The The Jewish HospitalComment on above:Order Comment: No: Do not add to previous drawNURSE DRAW RN CINDYPerformed By: #### 07874, 63687 ####[facility] [facility] [place] [address], [facility] POC GLUCOSE LABon 28-75-4528Jnmtmdz [Mass/Vol]123 mg/sAIzzf21-895Jdl The Jewish HospitalComment on above:Performed By: #### 27737 ####[facility] [facility] [place] [address], [facility] SERVICESGlucose [Mass/Vol]132 mg/kWMrcs20-629Yfj The Jewish HospitalComment on above:Performed By: #### 39328 ####[facility] [facility] [place] [address], [facility] SERVICESGlucose [Mass/Vol]164 mg/hVVjro57-061Uyr The Jewish HospitalComment on above:Performed By: #### 39686 ####[facility] [facility] [place] [address], [facility] Glucose [Mass/Vol]129 mg/aTBbvw84-156Zuk [facility] Comment on above:Performed By: #### 56478 ####[facility] [facility] [place] [address], USAAPTTon 49-12-4264tUOM Coag (Bld) [Time]30.1 zJrtpce37.0-35.0The The Jewish HospitalComment on above:Order Comment: Yes: Add to Previous draw if ableNurse drawResult Comment: ALL RESULTS MUST BE INTERPRETED WITH RESPECT TO BLOOD DRAWING ARTIFACTOR DILUTION ERROR OF ANTICOAGULANT AT THE TIME OF SAMPLING.THE APTT SHOULD NOT BE USED TO MONITOR UNFRACTIONATED HEPARIN THERAPY, THIS LABORATORY NO LONGER HAS AN ESTABLISHED THERAPEUTIC RANGE BASEDON THE APTT. IT IS RECOMMENDED THAT THE [facility] - HEPARIN ASSAY (ANTI-XAACTIVITY) BE USED FOR THIS PURPOSE.Performed By: #### 94853, 50017 ####[facility] [place] [address], USABASIC METABOLIC PANELon 43-30-5134Fmfgmcp [Mass/Vol]8.2 mg/dLLow8.6-10.3The The Jewish HospitalComment on above:Order Comment: No: Do not add to previous drawNurse drawPerformed By: #### 59812, 32248, 94954, 12919, 75706 ####[facility] [place] [address], USAChloride [Moles/Vol]104 mmol/YWcbxcq29-620Szw The Jewish HospitalComment on above:Order Comment: No: Do not add to previous drawNurse drawPerformed By: #### 79209, 64434, 68823, 55957, 06304 ####[facility] [place] [address], USACO2 [Moles/Vol]27 mmol/RLswtjk05-28Ahs The Jewish HospitalComment on above:Order Comment: No: Do not add to previous drawNurse draw Performed By: #### 86347, 66332, 33398, 16397, 08187 ####[facility] [place] [address], USACreatinine [Mass/Vol]0.86 mg/dLNormal0.70-1.30The The Jewish HospitalComment on above: Order Comment: No: Do not add to previous drawNurse drawPerformed By: #### 05080, 92302, 15746, 91581, 66422 ####[facility] [place] [address], USAGFR/1.73 sq M.predicted among blacks MDRD (S/P/Bld) [Vol rate/Area]mL/min/{1.73_m2}Normal>60The The Jewish HospitalComment on above:Order Comment: No: Do not add to previous drawNurse drawResult Comment: Calculation may not be valid for patients over 70 yearsPerformed By: #### 75192, 57318, 87686, 33731, 07295 ####[facility] [place] [address], USAGFR/1.73 sq M.predicted among non-blacks MDRD (S/P/Bld) [Vol rate/Area]mL/min/{1.73_m2} Normal>60The The Jewish HospitalComment on above:Order Comment: No: Do not add to previous drawNurse drawResult Comment: Calculation may not be valid for patients over 70 yearsPerformed By: #### 84164, 97302, 89173, 72402, 77660 ####[facility] [facility] [place] [address], USAGlucose [Mass/Vol]140 mg/mPWihf48-155Ssm The Jewish HospitalComment on above:Order Comment: No: Do not add to previous drawNurse draw Performed By: #### 26156, 47193, 61625, 69333, 96839 ####[facility] [place] [address], USAPotassium [Moles/Vol]4.1 mmol/LNormal3.5-5.1The The [facility] HospitalComment on above:Order Comment: No: Do not add to previous drawNurse drawPerformed By: #### 50809, 20400, 08971, 22987, 90168 ####[facility] [place] [address], USASodium [Moles/Vol]136 mmol/GPgwwep518-525Isx The Jewish HospitalComment on above:Order Comment: No: Do not add to previous drawNurse drawPerformed By: #### 18255, 90644, 45999, 56695, 47301 ####[facility] [facility] [place] [address], [facility] SERVICESUrea nitrogen [Mass/Vol]12 mg/dLNormal7-25The The [facility] HospitalComment on above:Order Comment: No: Do not add to previous drawNurse drawPerformed By: #### 41590, 14204, 72624, 91294, 43616 ####[facility] [facility] [place] [address], [facility] CBC COMPLETE BLOOD COUNTon 34-43-4062Jsnedfohubv distribution width (RBC) [Ratio]14.7 %Fbvxmw59.5-15.0The The Jewish HospitalComment on above:Order Comment: No: Do not add to previous drawNurse drawPerformed By: #### 86949 ####[facility] [facility] [place] [address], [facility] SERVICESHematocrit (Bld) [Volume fraction]33.5 %Low39.0-50.0The The [facility] HospitalComment on above:Order Comment: No: Do not add to previous drawNurse drawPerformed By: #### 84531 ####[facility] [facility] [place] [address], [facility] SERVICESHemoglobin (Bld) [Mass/Vol]10.9 g/dLLow13.0-17.0The The [facility] HospitalComment on above:Order Comment: No: Do not add to previous drawNurse drawPerformed By: #### 44116 ####[facility] [facility] [place] [address], [facility] MCH (RBC) [Entitic mass]31.9 ktUkcctm07.0-33.0The The Jewish HospitalComment on above:Order Comment: No: Do not add to previous drawNurse draw Performed By: #### 84417 ####[facility] [facility] [place] [address], [facility] (RBC) [Mass/Vol]32.5 g/lNEvwaqj05.0-35.0The The [facility] HospitalComment on above:Order Comment: No: Do not add to previous drawNurse drawPerformed By: #### 89265 ####[facility] [facility] [place] [address], [facility] (RBC) [Entitic vol] 98.0 iXIoevcb26.0-98.0The The [facility] HospitalComment on above: Order Comment: No: Do not add to previous drawNurse drawPerformed By: #### 49918 ####[facility] [facility] [place] [address], [facility] Nucleated RBC/100 WBC (Bld) [Ratio]0 %Normal0-0The The Jewish HospitalComment on above:Order Comment: No: Do not add to previous drawNurse draw Performed By: #### 44318 ####[facility] [place] [address].[place] [address], [facility] SERVICESPLAT IMN904 10*3/uUDgioqr579-228Yct The [facility] HospitalComment on above:Order Comment: No: Do not add to previous drawNurse drawPerformed By: #### 67046 ####[facility] [place] [address].[place] [address], [facility] SERVICESRBC (Bld) [#/Vol]3.42 10*6/uLLow 4.20-5.70The The [facility] HospitalComment on above:Order Comment: No: Do not add to previous drawNurse drawPerformed By: #### 83538 ####[facility] [place] [address].[place] [address], [facility] SERVICESWBC (Bld) [#/Vol]28.62 10*3/uLHigh4.00-10.60The The [facility] HospitalComment on above:Order Comment: No: Do not add to previous drawNurse drawPerformed By: #### 86012 ####[facility] [place] [address], USALIVER BATTERYon 31-19-3203Okldxjy [Mass/Vol]3.2 g/dLLow3.5-5.7The The [facility] HospitalComment on above:Order Comment: Yes: Add to Previous draw if ableNurse drawPerformed By: #### 07106, 35567, 63406, 46249, 19920 ####[facility] [place] [address], USAALKALINE OBPNWF62 IU/UHvgaye16-990Ddn The [facility] HospitalComment on above:Order Comment: Yes: Add to Previous draw if ableNurse drawPerformed By: #### 96391, 27115, 60936, 62708, 82535 ####[facility] [place] [address], USAALT [Catalytic activity/Vol]58 U/LHigh7-52The The [facility] HospitalComment on above:Order Comment: Yes: Add to Previous draw if ableNurse drawPerformed By: #### 57987, 60038, 34760, 80518, 62581 ####[facility] [place] [address], USAAST [Catalytic activity/Vol]15 U/L Whecnq02-35Kew The [facility] HospitalComment on above:Order Comment: Yes: Add to Previous draw if ableNurse drawPerformed By: #### 86775, 19458, 39250, 39668, 84825 ####[facility] [place] [address], USABilirubin [Mass/Vol]0.5 mg/dLNormal0.3-1.0The The [facility] HospitalComment on above:Order Comment: Yes: Add to Previous draw if ableNurse drawPerformed By: #### 65417, 60188, 52601, 55143, 96438 ####[facility] [place] [address], USABilirubin.direct [Mass/Vol]0.1 mg/dLNormal0.0-0.2The The [facility] HospitalComment on above:Order Comment: Yes: Add to Previous draw if ableNurse drawPerformed By: #### 42555, 49679, 26054, 90178, 66298 ####[facility] [facility] [place] [address], [facility] Protein [Mass/Vol]5.3 g/dLLow6.0-8.3The [facility] Comment on above:Order Comment: Yes: Add to Previous draw if ableNurse draw Performed By: #### 94313, 40537, 23360, 95762, 91269 ####[facility] [facility] [place] [address], USAMAGNESIUM BLOODon 66-82-8049Lxmyuzluo [Mass/Vol]1.9 mg/dLNormal1.9-2.7The The [facility] HospitalComment on above:Order Comment: Yes: Add to Previous draw if ableNurse drawPerformed By: #### 12464, 89952, 39222, 82751, 13387 ####[facility] [facility] [address], [place] PHOSPHORUS BLOODon 55-47-0398Exlfjoehf [Mass/Vol]2.9 mg/dLNormal2.5-5.0The The [facility] HospitalComment on above:Order Comment: Yes: Add to Previous draw if ableNurse drawPerformed By: #### 37215, 09350, 23021, 53585, 02169 ####[facility] [facility] [place] [address], USAPOC GLUCOSE LABon 49-62-2809Epadiwm [Mass/Vol]115 mg/rHJifb65-519Xtt The [facility] HospitalComment on above:Performed By: #### 86414 ####[facility] [facility] [place] [address], [facility] Glucose [Mass/Vol]120 mg/bCWxde62-415Sto [facility] Comment on above:Performed By: #### 82029 ####[facility] [place] [address], USAGlucose [Mass/Vol]134 mg/dLHigh 70-100The The [facility] HospitalComment on above:Performed By: #### 30688 ####[facility] [facility] [place] [address], [facility] SERVICESGlucose [Mass/Vol]142 mg/iABbvi29-041Dgo The [facility] HospitalComment on above:Performed By: #### 16544 ####[facility] [facility] [place] [address], [facility] SERVICESPROTHROMBIN TIMEon 83-27-5991BKO Coag (PPP) [Relative time]1.15 {INR}Normal0.91-1.16The The [facility] HospitalComment on above:Order Comment: Yes: Add to Previous draw if ableNurse drawResult Comment: [facility] RECOMMENDED INR FOR WARFARIN THERAPY CONDITION INRPROPHYLAXIS OF VENOUS THROMBOSIS 2-3(HIGH-RISK SURGERY)TREATMENT OF VENOUS THROMBOSIS 2-3TREATMENT OF PULMONARY EMBOLISM 2-3PREVENTION OF SYSTEMIC EMBOLISM: 2-3 ACUTE MYOCARDIAL INFARCTION TISSUE HEART VALVES VALVULAR HEART DISEASE ATRIAL FIBRILLATION RECURRENT SYSTEMIC EMBOLISMMECHANICAL HEART VALVE 2.5-3.5 FROM: ORAL ANTICOAGULANTS. MECHANISM OF ACTION, CLINICALEFFECTIVENESS, AND OPTIMAL THERAPEU TIC RANGE. [id number];108:231S-246S.Performed By: #### 96856, 42124 ####[facility] [facility] [place].[address] PT Coag (PPP) [Time]14.7 rOvimew70.3-14.8The [facility] Comment on above:Order Comment: Yes: Add to Previous draw if ableNurse draw Result Comment: ALL RESULTS MUST BE INTERPRETED WITH RESPECT TO BLOOD DRAWING ARTIFACTOR DILUTION ERROR OF ANTICOAGULANT AT THE TIME OF SAMPLING.Performed By: #### 54581, 74226 ####[facility] [facility].[address] StreetTRIGLYCERIDES BLOODon 70-82-4847Vypbuyxdaaxy [Mass/Vol] 157 mg/nTXaqq57-256PgvParkview Health Montpelier HospitalComment on above:Order Comment: Yes: Add to Previous draw if ableNurse drawResult Comment: TRIGLYCERIDE REFERENCE RANGE:20 YEARS AND OLDER CARDIOVASCULAR RISKLESS THAN 150 mg/dl LOW KZPR315 TO 199 mg/dl BORDERLINE DWOZ505 mg/dl AND GREATER HIGH RISK Performed By: #### 55558, 62000, 77910, 78534, 33377 ####[facility] [facility].[address]*BLOOD CULTUREon 11-03-2020*BLOOD CULTUREClinical Report: (D) Specimen: BLOOD CULTURE Collected: 11/03/2020 14:01 Status: Final Last Updated: 11/08/2020 14:40 (1) At appt per log book CULT RES (Final) No Growth Day 5NoMemorial HospitalComment on above: Order Comment: At appt per log bookPerformed By: #### 28386 ####[facility] [place] [address]*BLOOD CULTURE Clinical Report: (D) Specimen: BLOOD CULTURE Collected: 11/03/2020 13:36 Status: Final Last Updated: 11/08/2020 14:40 (1) At appt per log book CULT RES (Final) No Growth Day 5NoMemorial HospitalComment on above: Order Comment: At appt per log bookPerformed By: #### 08023 ####[facility] [facility] [place] [address], [place]*MRSA/MSSA DNA NASALon 11-03-2020*MRSA/MSSA DNA NASALClinical Report: (D) Specimen: NASAL SWAB Collected: 11/03/2020 12:27 Status: Final Last Updated: 11/04/2020 12:54 MSSA DNA (Final) Negative MRSA DNA (Final) NegativeNoMemorial HospitalComment on above:Performed By: #### 23748 ####[facility] [facility] [place] [address], USABASIC METABOLIC PANELon 17-59-6036Jkxbktj [Mass/Vol]8.3 mg/dLLow 8.6-10.3The The [facility] HospitalComment on above:Order Comment: No: Do not add to previous drawPerformed By: #### 34495, 09494 ####[facility] [facility] [place] [address], USAChloride [Moles/Vol]103 mmol/HMxmrhu55-620Qay The [facility] HospitalComment on above:Order Comment: No: Do not add to previous drawPerformed By: #### 99469, 22897 ####[facility] [facility] [address], USACO2 [Moles/Vol]25 mmol/BVcklbk16-95Gdr The [facility] HospitalComment on above:Order Comment: No: Do not add to previous drawPerformed By: #### 75794, 12032 ####[facility] [facility] [place] [address], USACreatinine [Mass/Vol]0.93 mg/dLNormal0.70-1.30The The [facility] HospitalComment on above:Order Comment: No: Do not add to previous drawPerformed By: #### 25573, 05331 ####[facility] [place] [address], USAGFR/1.73 sq M.predicted among blacks MDRD (S/P/Bld) [Vol rate/Area]mL/min/{1.73_m2}Normal>60The The [facility] HospitalComment on above:Order Comment: No: Do not add to previous drawResult Comment: Calculation may not be valid for patients over 70 yearsPerformed By: #### 27528, 38928 ####[facility] [place] [address], USAGFR/1.73 sq M.predicted among non- blacks MDRD (S/P/Bld) [Vol rate/Area]mL/min/{1.73_m2}Normal>60The [facility] HospitalComment on above:Order Comment: No: Do not add to previous drawResult Comment: Calculation may not be valid for patients over 70 years Performed By: #### [id number], [id number] ####[facility] [place] [address], USAGlucose [Mass/Vol]147 mg/qKWepu85-395Rft [facility] HospitalComment on above:Order Comment: No: Do not add to previous drawPerformed By: #### [id number], [id number] ####[facility] [place] [address], USAPotassium [Moles/Vol]3.8 mmol/LNormal3.5-5.1The [facility] HospitalComment on above:Order Comment: No: Do not add to previous drawPerformed By: #### [id number], [id number] ####[facility] [place] [address], [place] Sodium [Moles/Vol]136 mmol/HScxfpy516-507Lps [facility] Comment on above:Order Comment: No: Do not add to previous drawPerformed By: #### [id number], [id number] ####[facility] [place] [address], USAUrea nitrogen [Mass/Vol]15 mg/dLNormal7-25The [facility] HospitalComment on above:Order Comment: No: Do not add to previous drawPerformed By: #### [id number], [id number] ####[facility] [place] [address], [facility] SERVICESCBC COMPLETE BLOOD COUNTon [id number] distribution width (RBC) [Ratio]14.9 %Dxfklx87.5-15.0The [facility] HospitalComment on above:Order Comment: No: Do not add to previous drawPerformed By: #### [id number] ####[facility] [place] [address], [facility] CARE SERVICESHematocrit (Bld) [Volume fraction] 39.3 %Sacybq73.0-50.0The The [facility] HospitalComment on above: Order Comment: No: Do not add to previous drawPerformed By: #### 77814 ####[facility] [facility] [place] [address], [facility] Hemoglobin (Bld) [Mass/Vol]12.0 g/dLLow13.0-17.0The The Jewish HospitalComment on above:Order Comment: No: Do not add to previous drawPerformed By: #### [id number] ####[facility] [facility] [place] [address], [facility] SERVICESMCH (RBC) [Entitic mass]32.0 biQjudni46.0-33.0The The [facility] HospitalComment on above:Order Comment: No: Do not add to previous drawPerformed By: #### [id number] ####[facility] [facility] [place] [address], [facility] SERVICESMCHC (RBC) [Mass/Vol]30.5 g/dLLow32.0-35.0The The [facility] HospitalComment on above:Order Comment: No: Do not add to previous drawPerformed By: #### [id number] ####[facility] [address], USAMCV (RBC) [Entitic vol]104.8 fL High82.0-98.0The The [facility] HospitalComment on above:Order Comment: No: Do not add to previous drawPerformed By: #### [id number] ####[facility] [address], USANucleated RBC/100 WBC (Bld) [Ratio]0 %Normal0-0The [facility] Comment on above:Order Comment: No: Do not add to previous drawPerformed By: #### 54531 ####[facility] [address], USAPLAT PWL849 10*3/zPYngrls812-118Oze The [facility] HospitalComment on above:Order Comment: No: Do not add to previous drawPerformed By: #### [id number] ####[facility] [address], USARBC (Bld) [#/Vol]3.75 10*6/uLLow4.20-5.70The The [facility] HospitalComment on above:Order Comment: No: Do not add to previous draw Performed By: #### [id number] ####[facility] [address], USAWBC (Bld) [#/Vol]26.14 10*3/uLHigh4.00-10.60The The [facility] HospitalComment on above:Order Comment: No: Do not add to previous drawPerformed By: #### 80438 ####[facility] [place] [address], USACT ABDOMEN AND PELVIS WO CONTRAST on 43-55-5849GJ ABDOMEN AND PELVIS WO CONTRASTNormalThe The [facility] HospitalComment on above:Order Comment: Obstruction, 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MAGNESIUM BLOODon 03-37-0763Cggcdsgja [Mass/Vol] 2.0 mg/dLNormal1.9-2.7The The [facility] HospitalComment on above: Order Comment: No: Do not add to previous drawPerformed By: #### 69267, 25358 ####[facility] [address], [place] PHOSPHORUS BLOODon 99-58-0508Oaardalkn [Mass/Vol]2.8 mg/dLNormal2.5-5.0The The [facility] HospitalComment on above:Order Comment: Yes: Add to Previous draw if ablePerformed By: #### 55212 ####[facility] [place] [address], USAPOC GLUCOSE LABon 11-03-2020 Glucose [Mass/Vol]120 mg/xDEgio17-258Qor [facility] Comment on above:Performed By: #### 90605 ####[facility] [place] [address], USAGlucose [Mass/Vol]141 mg/dLHigh 70-100The The [facility] HospitalComment on above:Performed By: #### 31233 ####[facility] [place] [address], USAGlucose [Mass/Vol]77 mg/fDFdxsgk71-784Igw The [facility] HospitalComment on above:Performed By: #### 24433 ####[facility] [place] [address], USAGlucose [Mass/Vol]181 mg/hIBfej79-319Veg The [facility] HospitalComment on above:Performed By: #### 90393 ####[facility] [facility] [place] [address], USABASIC METABOLIC PANELon 57-46-6794Mttkctl [Mass/Vol]7.8 mg/dLLow8.6-10.3The The [facility] HospitalComment on above:Order Comment: No: Do not add to previous drawPerformed By: #### 01232, 11545 ####[facility] [place] [address], [place] Chloride [Moles/Vol]109 mmol/MChwx10-319Byg [facility] Comment on above:Order Comment: No: Do not add to previous drawPerformed By: #### 82632, 79477 ####[facility] [place] [address], USACO2 [Moles/Vol]18 mmol/PMnm37-36Jax The [facility] HospitalComment on above:Order Comment: No: Do not add to previous drawPerformed By: #### 69669, 63166 ####[facility] [place] [address], USACreatinine [Mass/Vol]0.92 mg/dLNormal 0.70-1.30The The [facility] HospitalComment on above:Order Comment: No: Do not add to previous drawPerformed By: #### 30961, 30422 ####[facility] [place] [address], USAGFR/1.73 sq M.predicted among blacks MDRD (S/P/Bld) [Vol rate/Area]mL/min/{1.73_m2}Normal>60 The The [facility] HospitalComment on above:Order Comment: No: Do not add to previous drawResult Comment: Calculation may not be valid for patients over 70 yearsPerformed By: #### 13675, 92981 ####[facility] [place] [address], USAGFR/1.73 sq M.predicted among non-blacks MDRD (S/P/Bld) [Vol rate/Area]mL/min/{1.73_m2}Normal>60The The [facility] HospitalComment on above:Order Comment: No: Do not add to previous drawResult Comment: Calculation may not be valid for patients over 70 yearsPerformed By: #### 19953, 53264 ####[facility] [place] [address], USAGlucose [Mass/Vol]179 mg/dLHigh 70-100The The [facility] HospitalComment on above:Order Comment: No: Do not add to previous drawPerformed By: #### 60235, 02267 ####[facility] [place] [address], USAPotassium [Moles/Vol]4.1 mmol/LNormal3.5-5.1The The [facility] HospitalComment on above:Order Comment: No: Do not add to previous drawPerformed By: #### 00812, 28269 ####[facility] [place] [address], USASodium [Moles/Vol]137 mmol/HKzjjta457-632Xvp The [facility] HospitalComment on above:Order Comment: No: Do not add to previous draw Performed By: #### 66252, 04526 ####[facility] [place] [address], USAUrea nitrogen [Mass/Vol]18 mg/dLNormal7-25The The [facility] HospitalComment on above:Order Comment: No: Do not add to previous drawPerformed By: #### 20747, 74981 ####[facility] [place] [address], USACBC COMPLETE BLOOD COUNTon 14-80-5548Lcvbxedysad distribution width (RBC) [Ratio]14.9 %Wtaufk37.5-15.0The The [facility] HospitalComment on above:Order Comment: No: Do not add to previous drawPerformed By: #### 70665 ####[id number] [facility] [place] [address], [facility] SERVICESHematocrit (Bld) [Volume fraction] 36.4 %Low39.0-50.0The The [facility] HospitalComment on above:Order Comment: No: Do not add to previous drawPerformed By: #### 81033 ####[facility] [facility] [place] [address], [facility] SERVICESHemoglobin (Bld) [Mass/Vol]11.0 g/dLLow13.0-17.0The The [facility] HospitalComment on above:Order Comment: No: Do not add to previous drawPerformed By: #### 41405 ####[facility] [facility] [place] [address], [facility] MCH (RBC) [Entitic mass]32.4 rhRpouiq10.0-33.0The The [facility] HospitalComment on above:Order Comment: No: Do not add to previous drawPerformed By: #### 57438 ####[facility] [place] [address].[place] [address], [facility] SERVICESMCHC (RBC) [Mass/Vol]30.2 g/dLLow32.0-35.0The The [facility] HospitalComment on above:Order Comment: No: Do not add to previous draw Performed By: #### 54092 ####[facility] [facility] [place] [address], [facility] SERVICESMCV (RBC) [Entitic vol]107.1 gQEqdw49.0-98.0The The [facility] HospitalComment on above:Order Comment: No: Do not add to previous drawPerformed By: #### 65188 ####[facility] [place] [address].[place] [address], [facility] SERVICESNucleated RBC/100 WBC (Bld) [Ratio]0 %Normal0-0The The [facility] HospitalComment on above:Order Comment: No: Do not add to previous drawPerformed By: #### 42379 ####[facility] [place] [address], USAPLAT OPY175 10*3/rOShzisa432-324Xwx The [facility] HospitalComment on above: Order Comment: No: Do not add to previous drawPerformed By: #### 77009 ####[facility] [place] [address], [place] RBC (Bld) [#/Vol]3.40 10*6/uLLow4.20-5.70The [facility] Comment on above:Order Comment: No: Do not add to previous drawPerformed By: #### 10851 ####[facility] [place] [address], [facility] SERVICESWBC (Bld) [#/Vol]24.00 10*3/uLHigh4.00-10.60The The [facility] HospitalComment on above:Order Comment: No: Do not add to previous draw Performed By: #### 33180 ####[facility] [facility] [place] [address], [facility] SERVICESMAGNESIUM BLOODon 32-57-7185Gofnslxil [Mass/Vol]2.0 mg/dLNormal1.9-2.7The The [facility] HospitalComment on above:Order Comment: No: Do not add to previous drawPerformed By: #### 30430, 71174 ####[facility] [place] [address], [place] POC GLUCOSE LABon 60-05-8413Tctvosy [Mass/Vol]156 mg/wCTsqg56-873Evu The [facility] HospitalComment on above:Performed By: #### 27427 ####[facility] [place] [address], USAGlucose [Mass/Vol]150 mg/wZGrmi88-584Rhb [facility] HospitalComment on above:Performed By: #### 05515 ####[facility] [place] [address], USAGlucose [Mass/Vol]151 mg/dRJovu09-021Vmw The [facility] HospitalComment on above:Performed By: #### 28049 ####[facility] [place] [address], [place] Glucose [Mass/Vol]169 mg/pOBtnf40-522Zrp [facility] Comment on above:Performed By: #### 58703 ####[facility] [place] [address], USAGlucose [Mass/Vol]160 mg/dLHigh 70-100The The [facility] HospitalComment on above:Performed By: #### 36794 ####[facility] [place] [address], USAPORTABLE ABDOMENon 14-13-7548SSQTEUDV ABDOMENNormalThe The [facility] HospitalComment on above:Order Comment: Evaluate for IleusBASIC METABOLIC PANELon 63-61-2152Pscszsp [Mass/Vol]7.8 mg/dLLow8.6-10.3The The [facility] HospitalComment on above:Order Comment: No: Do not add to previous drawPerformed By: #### 23017, 96657 ####[facility] [place] [address], USAChloride [Moles/Vol]106 mmol/L Fqarpw95-490Rne The [facility] HospitalComment on above:Order Comment: No: Do not add to previous drawPerformed By: #### 83078, 06618 ####[facility] [place] [address], [place] CO2 [Moles/Vol]28 mmol/QFpbgqf76-58Qyw [facility] Comment on above:Order Comment: No: Do not add to previous drawPerformed By: #### 54451, 85743 ####[facility] [place] [address], USACreatinine [Mass/Vol]0.91 mg/dLNormal0.70-1.30The The [facility] HospitalComment on above:Order Comment: No: Do not add to previous drawPerformed By: #### 98869, 57474 ####[facility] [place] [address], USAGFR/1.73 sq M.predicted among blacks MDRD (S/P/Bld) [Vol rate/Area]mL/min/{1.73_m2}Normal>60The The [facility] HospitalComment on above:Order Comment: No: Do not add to previous drawResult Comment: Calculation may not be valid for patients over 70 yearsPerformed By: #### 05577, 87104 ####[facility] [place] [address], USAGFR/1.73 sq M.predicted among non- blacks MDRD (S/P/Bld) [Vol rate/Area]mL/min/{1.73_m2}Normal>60The The [facility] HospitalComment on above:Order Comment: No: Do not add to previous drawResult Comment: Calculation may not be valid for patients over 70 years Performed By: #### 14051, 02776 ####[facility] [place] [address], USAGlucose [Mass/Vol]326 mg/xHZvms72-924Dbz [facility] HospitalComment on above:Order Comment: No: Do not add to previous drawPerformed By: #### 87075, 35217 ####[facility] [place] [address], USAPotassium [Moles/Vol]4.7 mmol/LNormal3.5-5.1The The [facility] HospitalComment on above:Order Comment: No: Do not add to previous drawPerformed By: #### 96544, 10600 ####[facility] [place] [address], [facility] Sodium [Moles/Vol]137 mmol/EFgclad978-692Bxr [facility] Comment on above:Order Comment: No: Do not add to previous drawPerformed By: #### 77984, 63404 ####[facility] [facility] [place] [address], [facility] SERVICESUrea nitrogen [Mass/Vol]19 mg/dLNormal7-25The The [facility] HospitalComment on above:Order Comment: No: Do not add to previous drawPerformed By: #### 28984, 49649 ####[facility] [place] [address].[place] [address], [facility] SERVICESCBC COMPLETE BLOOD COUNTon 73-69-8364Gewwkzopjrc distribution width (RBC) [Ratio]14.6 %Crgzrr91.5-15.0The The [facility] HospitalComment on above:Order Comment: No: Do not add to previous drawPerformed By: #### 32556 ####[place] [address] [facility] [place] [address], [facility] SERVICESHematocrit (Bld) [Volume fraction] 34.1 %Low39.0-50.0The The [facility] HospitalComment on above:Order Comment: No: Do not add to previous drawPerformed By: #### 09380 ####[address] [place] [address], [facility] SERVICESHemoglobin (Bld) [Mass/Vol]10.8 g/dLLow13.0-17.0The The [facility] HospitalComment on above:Order Comment: No: Do not add to previous drawPerformed By: #### 41651 ####[facility] [place] [address].[place] [address], [facility] MCH (RBC) [Entitic mass]32.1 owRsksjw09.0-33.0The The [facility] HospitalComment on above:Order Comment: No: Do not add to previous drawPerformed By: #### 43689 ####[facility] [place] [address], [facility] SERVICESMCHC (RBC) [Mass/Vol]31.7 g/dLLow32.0-35.0The The [facility] HospitalComment on above:Order Comment: No: Do not add to previous draw Performed By: #### 23225 ####[facility] [facility] [place] [address], [facility] SERVICESMCV (RBC) [Entitic vol]101.5 wEYzlx63.0-98.0The The [facility] HospitalComment on above:Order Comment: No: Do not add to previous drawPerformed By: #### 33560 ####[facility] [place] [address], [facility] SERVICESNucleated RBC/100 WBC (Bld) [Ratio]0 %Normal0-0The The [facility] HospitalComment on above:Order Comment: No: Do not add to previous drawPerformed By: #### 12286 ####[facility] [facility] [place] [address], [facility] SERVICESPLAT NCL079 10*3/oIYwwtcw338-257Cts The [facility] HospitalComment on above: Order Comment: No: Do not add to previous drawPerformed By: #### 01975 ####[address] [place] [address], [facility] RBC (Bld) [#/Vol]3.36 10*6/uLLow4.20-5.70The [facility] Comment on above:Order Comment: No: Do not add to previous drawPerformed By: #### 16331 ####[facility] [facility] [place] [address], [facility] SERVICESWBC (Bld) [#/Vol]24.92 10*3/uLHigh4.00-10.60The The [facility] HospitalComment on above:Order Comment: No: Do not add to previous draw Performed By: #### 10279 ####[facility] [place] [address], USAMAGNESIUM BLOODon 41-44-5284Vsbgpdfru [Mass/Vol]1.9 mg/dLNormal1.9-2.7The [facility] HospitalComment on above:Order Comment: No: Do not add to previous drawPerformed By: #### 16941, 92266 ####[facility] [place] [address], [place] POC GLUCOSE LABon 87-39-1232Bdmekil [Mass/Vol]133 mg/uKKfvl42-469Kjk The [facility] HospitalComment on above:Performed By: #### 02603 ####[facility] [place] [address], USAGlucose [Mass/Vol]157 mg/oZVirw14-978Ese The [facility] HospitalComment on above:Performed By: #### 48677 ####[facility] [place] [address], USAGlucose [Mass/Vol]140 mg/kAVwyj02-209Sas The [facility] HospitalComment on above:Performed By: #### 65153 ####[facility] [place] [address], [place] Glucose [Mass/Vol]164 mg/iDTkep13-746Ezh [facility] Comment on above:Performed By: #### 27494 ####[facility] [place] [address], USABASIC METABOLIC PANELon 10-31-2020 Calcium [Mass/Vol]7.9 mg/dLLow8.6-10.3The [facility] Comment on above:Order Comment: No: Do not add to previous drawPerformed By: #### 99661, 14981 ####[facility] [place] [address], USAChloride [Moles/Vol]106 mmol/ODcutgt16-213Jnk [facility] HospitalComment on above:Order Comment: No: Do not add to previous drawPerformed By: #### 18237, 63190 ####[facility] [place] [address], USACO2 [Moles/Vol]28 mmol/L Bhwryy00-65Sqb [facility] HospitalComment on above:Order Comment: No: Do not add to previous drawPerformed By: #### 02162, 75648 ####[facility] [place] [address], [place] Creatinine [Mass/Vol]0.87 mg/dLNormal0.70-1.30The [facility] HospitalComment on above:Order Comment: No: Do not add to previous drawPerformed By: #### 31640, 89155 ####[facility] [place] [address], USAGFR/1.73 sq M.predicted among blacks MDRD (S/P/Bld) [Vol rate/Area]mL/min/{1.73_m2}Normal>60The [facility] Comment on above:Order Comment: No: Do not add to previous drawResult Comment: Calculation may not be valid for patients over 70 yearsPerformed By: #### 22176, 66592 ####[facility] [place] [address], USAGFR/1.73 sq M.predicted among non-blacks MDRD (S/P/Bld) [Vol rate/Area]mL/min/{1.73_m2}Normal>60The [facility] Comment on above:Order Comment: No: Do not add to previous drawResult Comment: Calculation may not be valid for patients over 70 yearsPerformed By: #### 93196, 90393 ####[facility] [place] [address], USAGlucose [Mass/Vol]209 mg/iXWuys05-387Gxb [facility] HospitalComment on above:Order Comment: No: Do not add to previous drawPerformed By: #### 78947, 55162 ####[facility] [place] [address], USAPotassium [Moles/Vol]3.5 mmol/LNormal3.5-5.1The The [facility] HospitalComment on above:Order Comment: No: Do not add to previous drawPerformed By: #### 37594, 19495 ####[facility] [place] [address], USASodium [Moles/Vol]143 mmol/PKntnpt853-509Knp [facility] HospitalComment on above:Order Comment: No: Do not add to previous drawPerformed By: #### 43515, 04586 ####[facility] [place] [address], [place] Urea nitrogen [Mass/Vol]20 mg/dLNormal7-25The [facility] HospitalComment on above:Order Comment: No: Do not add to previous drawPerformed By: #### 80597, 40269 ####[facility] [place] [address], USACBC COMPLETE BLOOD COUNTon 21-51-3438Fsebrdhqenl distribution width (RBC) [Ratio]14.5 %Hvncss55.5-15.0The The [facility] HospitalComment on above:Order Comment: No: Do not add to previous draw Performed By: #### 88047 ####[facility] [place] [address], USAHematocrit (Bld) [Volume fraction]33.3 %Low39.0-50.0The The [facility] HospitalComment on above:Order Comment: No: Do not add to previous drawPerformed By: #### 96995 ####[facility] [place] [address], USAHemoglobin (Bld) [Mass/Vol]10.7 g/dLLow13.0-17.0The The [facility] HospitalComment on above:Order Comment: No: Do not add to previous drawPerformed By: #### 97787 ####[facility] [place] [address], [facility] (RBC) [Entitic mass]31.6 jwXoxyug94.0-33.0The [facility] Comment on above:Order Comment: No: Do not add to previous drawPerformed By: #### 74413 ####[facility] [facility] [id number], [facility] SERVICESMCHC (RBC) [Mass/Vol]32.1 g/tFOasemq85.0-35.0The [facility] HospitalComment on above:Order Comment: No: Do not add to previous draw Performed By: #### 99404 ####[facility] [facility] [place] [address], [facility] (RBC) [Entitic vol]98.2 aTHyqj41.0-98.0The The [facility] HospitalComment on above:Order Comment: No: Do not add to previous drawPerformed By: #### 57032 ####[facility] [facility] [place] [address], [facility] SERVICESNucleated RBC/100 WBC (Bld) [Ratio]0 %Normal0-0The The [facility] HospitalComment on above:Order Comment: No: Do not add to previous drawPerformed By: #### 70618 ####[facility] [facility] [place] [address], USAPLAT [id number] 10*3/qODaobdr507-578Hty [facility] HospitalComment on above: Order Comment: No: Do not add to previous drawPerformed By: #### 91821 ####[facility] [place] [address], [place] RBC (Bld) [#/Vol]3.39 10*6/uLLow4.20-5.70The [facility] Comment on above:Order Comment: No: Do not add to previous drawPerformed By: #### 42418 ####[facility] [place] [address], [facility] SERVICESWBC (Bld) [#/Vol]20.00 10*3/uLHigh4.00-10.60The [facility] HospitalComment on above:Order Comment: No: Do not add to previous draw Performed By: #### 64974 ####[facility] [place] [address], USAMAGNESIUM BLOODon 92-79-7342Necxjgiuo [Mass/Vol]2.1 mg/dLNormal1.9-2.7The [facility] HospitalComment on above:Order Comment: No: Do not add to previous drawPerformed By: #### [id number], [id number] ####[facility] [place] [address], [place] POC GLUCOSE LABon 42-11-3086Aozusxk [Mass/Vol]168 mg/rKZzve20-360Prr [facility] HospitalComment on above:Performed By: #### [id number] ####[facility] [place] [address], USAGlucose [Mass/Vol]179 mg/jUXvug33-931Sln [facility] HospitalComment on above:Performed By: #### [id number] ####[facility] [place] [address], USAGlucose [Mass/Vol]173 mg/tDDfjy72-807Tqp The [facility] HospitalComment on above:Performed By: #### [id number] ####[facility] [place] [address], [place] Glucose [Mass/Vol]205 mg/gEAyiu97-038Syt [facility] Comment on above:Performed By: #### [id number] ####[facility] [place] [address], USAGlucose [Mass/Vol]236 mg/dLHigh 70-100The [facility] HospitalComment on above:Performed By: #### [id number] ####[facility] [place] [address], USABASIC METABOLIC PANELon 66-59-2661Pveuryv [Mass/Vol]7.7 mg/dLLow 8.6-10.3The [facility] HospitalComment on above:Order Comment: No: Do not add to previous drawPerformed By: #### [id number], [id number] ####[facility] [place] [address], USAChloride [Moles/Vol]108 mmol/ZLnvo24-771Nwh The [facility] HospitalComment on above:Order Comment: No: Do not add to previous drawPerformed By: #### [id number], [id number] ####[facility] [place] [address], [place]ACO2 [Moles/Vol]26 mmol/RTmsuoy38-26Xtm The [facility] HospitalComment on above:Order Comment: No: Do not add to previous drawPerformed By: #### [id number], [id number] ####[facility] [place] [address], USACreatinine [Mass/Vol]0.85 mg/dLNormal0.70-1.30The The Jewish HospitalComment on above:Order Comment: No: Do not add to previous drawPerformed By: #### 34830, 54835 ####[facility] [place] [address], USAGFR/1.73 sq M.predicted among blacks MDRD (S/P/Bld) [Vol rate/Area]mL/min/{1.73_m2}Normal>60The The Jewish HospitalComment on above:Order Comment: No: Do not add to previous drawResult Comment: Calculation may not be valid for patients over 70 yearsPerformed By: #### 96226, 28353 ####[facility] [place] [address], USAGFR/1.73 sq M.predicted among non- blacks MDRD (S/P/Bld) [Vol rate/Area]mL/min/{1.73_m2}Normal>60The The [facility] HospitalComment on above:Order Comment: No: Do not add to previous drawResult Comment: Calculation may not be valid for patients over 70 years Performed By: #### 67413, 43726 ####[facility] [place] [address], [facility] SERVICESGlucose [Mass/Vol]205 mg/fJJqnz32-145Haw The Jewish HospitalComment on above:Order Comment: No: Do not add to previous drawPerformed By: #### 99240, 35359 ####[facility] [place] [address], USAPotassium [Moles/Vol]3.7 mmol/LNormal3.5-5.1The The Jewish HospitalComment on above:Order Comment: No: Do not add to previous drawPerformed By: #### 89026, 93964 ####[facility] [place] [address], [place] Sodium [Moles/Vol]140 mmol/CFxesex334-248Jda [facility] Comment on above:Order Comment: No: Do not add to previous drawPerformed By: #### 10660, 50778 ####[facility] [place] [address], USAUrea nitrogen [Mass/Vol]21 mg/dLNormal7-25The The Jewish HospitalComment on above:Order Comment: No: Do not add to previous drawPerformed By: #### 69153, 69305 ####[facility] [place] [address], [facility] SERVICESCBC COMPLETE BLOOD COUNTon 60-17-6070Esyclfhjfdu distribution width (RBC) [Ratio]15.0 %Ucqiqw40.5-15.0The The Jewish HospitalComment on above:Order Comment: No: Do not add to previous drawPerformed By: #### 81204 ####[facility] [facility] [place] [address], [facility] SERVICESHematocrit (Bld) [Volume fraction] 33.5 %Low39.0-50.0The The Jewish HospitalComment on above:Order Comment: No: Do not add to previous drawPerformed By: #### 51270 ####[facility] [facility] [place] [address], [facility] SERVICESHemoglobin (Bld) [Mass/Vol]10.7 g/dLLow13.0-17.0The The Jewish HospitalComment on above:Order Comment: No: Do not add to previous drawPerformed By: #### 04689 ####[facility] [facility] [place] [address], [facility] MCH (RBC) [Entitic mass]31.7 ecUirqcq06.0-33.0The The Jewish HospitalComment on above:Order Comment: No: Do not add to previous drawPerformed By: #### 26233 ####[facility] [facility] [place] [address], [facility] SERVICESMCHC (RBC) [Mass/Vol]31.9 g/dLLow32.0-35.0The The Jewish HospitalComment on above:Order Comment: No: Do not add to previous draw Performed By: #### 28749 ####[facility] [facility] [place] [address], [facility] SERVICESMCV (RBC) [Entitic vol]99.1 sUCpfq44.0-98.0The The Jewish HospitalComment on above:Order Comment: No: Do not add to previous drawPerformed By: #### 26465 ####[facility] [place] [address], [facility] SERVICESNucleated RBC/100 WBC (Bld) [Ratio]0 %Normal0-0The The Jewish HospitalComment on above:Order Comment: No: Do not add to previous drawPerformed By: #### 46737 ####[facility] [place] [address], USAPLAT [id number] 10*3/aNUfjxwo096-135Qqr The Jewish HospitalComment on above: Order Comment: No: Do not add to previous drawPerformed By: #### 93408 ####[facility] [place] [address], [facility] RBC (Bld) [#/Vol]3.38 10*6/uLLow4.20-5.70The [facility] Comment on above:Order Comment: No: Do not add to previous drawPerformed By: #### 66651 ####[facility] [facility] [address], [facility] SERVICESWBC (Bld) [#/Vol]19.93 10*3/uLHigh4.00-10.60The The Jewish HospitalComment on above:Order Comment: No: Do not add to previous draw Performed By: #### 26164 ####[facility] [place] [address], [facility] SERVICESMAGNESIUM BLOODon 01-59-1030Afuesqxuj [Mass/Vol]2.1 mg/dLNormal1.9-2.7The The Jewish HospitalComment on above:Order Comment: No: Do not add to previous drawPerformed By: #### 79141, 02459 ####[facility] [facility] [place] [address], [facility] POC GLUCOSE LABon 44-16-6917Tasqdor [Mass/Vol]178 mg/sXGben05-641Elm The Jewish HospitalComment on above:Performed By: #### 89459 ####[facility] [place] [address], USAGlucose [Mass/Vol]173 mg/kTGrmg27-815Swp The Jewish HospitalComment on above:Performed By: #### 94478 ####[facility] [place] [address], USAGlucose [Mass/Vol]192 mg/kNDflh51-728Aju The Jewish HospitalComment on above:Performed By: #### 05640 ####[facility] [place] [address], [place] Glucose [Mass/Vol]176 mg/kAFrzq76-490Vic [facility] Comment on above:Performed By: #### 88440 ####[facility] [place] [address], USAGlucose [Mass/Vol]211 mg/dLHigh 70-100The The Jewish HospitalComment on above:Performed By: #### 66582 ####[facility] [place] [address], USABASIC METABOLIC PANELon 88-77-2850Shxlvmc [Mass/Vol]7.6 mg/dLLow 8.6-10.3The The Jewish HospitalComment on above:Order Comment: No: Do not add to previous drawPerformed By: #### 12872, 21068 ####[facility] [place] [address], USAChloride [Moles/Vol]111 mmol/FHmrf81-844Hdi The Jewish HospitalComment on above:Order Comment: No: Do not add to previous drawPerformed By: #### 61118, 92869 ####[facility] [place] [address], USACO2 [Moles/Vol]21 mmol/NLjhtzk31-76Lww The Jewish HospitalComment on above:Order Comment: No: Do not add to previous drawPerformed By: #### 42334, 07876 ####[facility] [place] [address], USACreatinine [Mass/Vol]0.90 mg/dLNormal0.70-1.30The The Jewish HospitalComment on above:Order Comment: No: Do not add to previous drawPerformed By: #### 79951, 30328 ####[facility] [place] [address], USAGFR/1.73 sq M.predicted among blacks MDRD (S/P/Bld) [Vol rate/Area]mL/min/{1.73_m2}Normal>60The The Jewish HospitalComment on above:Order Comment: No: Do not add to previous drawResult Comment: Calculation may not be valid for patients over 70 yearsPerformed By: #### 57003, 74645 ####[facility] [place] [address], USAGFR/1.73 sq M.predicted among non- blacks MDRD (S/P/Bld) [Vol rate/Area]mL/min/{1.73_m2}Normal>60The The Jewish HospitalComment on above:Order Comment: No: Do not add to previous drawResult Comment: Calculation may not be valid for patients over 70 years Performed By: #### 03559, 01474 ####[facility] [place] [address], USAGlucose [Mass/Vol]164 mg/iUKcmn43-282Zat The [facility] HospitalComment on above:Order Comment: No: Do not add to previous drawPerformed By: #### 17311, 46546 ####[facility] [place] [address], USAPotassium [Moles/Vol]3.7 mmol/LNormal3.5-5.1The The [facility] HospitalComment on above:Order Comment: No: Do not add to previous drawPerformed By: #### 12917, 88826 ####[facility] [place] [address], [place] Sodium [Moles/Vol]140 mmol/TVwusun246-302Ykp [facility] Comment on above:Order Comment: No: Do not add to previous drawPerformed By: #### 39494, 57761 ####[facility] [place] [address], USAUrea nitrogen [Mass/Vol]21 mg/dLNormal7-25The The [facility] HospitalComment on above:Order Comment: No: Do not add to previous drawPerformed By: #### 15386, 98455 ####[facility] [place] [address], USACalcium [Mass/Vol]7.2 mg/dLLow8.6-10.3The The [facility] HospitalComment on above:Order Comment: No: Do not add to previous drawPerformed By: #### 46470, 54096 ####[facility] [place] [address], [place] Chloride [Moles/Vol]111 mmol/ZEvpd36-695Mnx [facility] Comment on above:Order Comment: No: Do not add to previous drawPerformed By: #### 16800, 29799 ####[facility] [place] [address], USACO2 [Moles/Vol]21 mmol/WPsffrz23-38Ifr The [facility] HospitalComment on above:Order Comment: No: Do not add to previous drawPerformed By: #### 01211, 27530 ####[facility] [place] [address], USACreatinine [Mass/Vol]0.99 mg/dLNormal 0.70-1.30The The [facility] HospitalComment on above:Order Comment: No: Do not add to previous drawPerformed By: #### 08223, 64714 ####[facility] [place] [address], USAGFR/1.73 sq M.predicted among blacks MDRD (S/P/Bld) [Vol rate/Area]mL/min/{1.73_m2}Normal>60 The The Jewish HospitalComment on above:Order Comment: No: Do not add to previous drawResult Comment: Calculation may not be valid for patients over 70 yearsPerformed By: #### 33994, 08805 ####[facility] [facility] [address], USAGFR/1.73 sq M.predicted among non-blacks MDRD (S/P/Bld) [Vol rate/Area]mL/min/{1.73_m2}Normal>60The The [facility] HospitalComment on above:Order Comment: No: Do not add to previous drawResult Comment: Calculation may not be valid for patients over 70 yearsPerformed By: #### 74201, 88459 ####[facility] [facility] [address], USAGlucose [Mass/Vol]133 mg/dLHigh 70-100The The [facility] HospitalComment on above:Order Comment: No: Do not add to previous drawPerformed By: #### 81653, 24413 ####[facility] [place] [address], USAPotassium [Moles/Vol]3.8 mmol/LNormal3.5-5.1The The [facility] HospitalComment on above:Order Comment: No: Do not add to previous drawPerformed By: #### 98813, 90787 ####[facility] [place] [address], USASodium [Moles/Vol]140 mmol/JAxdtqp685-382Cmt The [facility] HospitalComment on above:Order Comment: No: Do not add to previous draw Performed By: #### 89842, 21704 ####[facility] [facility] [place] [address], [facility] SERVICESUrea nitrogen [Mass/Vol]20 mg/dLNormal7-25The The [facility] HospitalComment on above:Order Comment: No: Do not add to previous drawPerformed By: #### 10867, 66269 ####[facility] [place] [address].[place] [address], [facility] SERVICESCBC W/DIFFon 11-18-2658TDB BASOPHILSCANCELEDNormal0.0-0.2The The Jewish HospitalComment on above:Result Comment: The released value 0.0 was canceled by KNG on 10/29/2020 22:20Performed By: #### 20034 ####[address] [place] [address], [facility] SERVICESABS EOSINOPHILSCANCELEDNormal0.0-0.5The The Jewish HospitalComment on above:Result Comment: The released value 0.0 was canceled by KNG on 10/29/2020 22:20Performed By: #### 52985 ####[address] [place] [address], [facility] ABS IMM GRANSCANCELEDNormalThe The Jewish HospitalComment on above:Performed By: #### 95012 ####[address] [place] [address], [facility] SERVICESABS IMM GRANS0.1 10*3/uLNormal0.0-0.2The The Jewish HospitalComment on above:Order Comment: This order is a replacement of the rejected order with accession [id number].Performed By: #### 48920 ####[address] [place] [address], [facility] SERVICESABS LYMPHSCANCELEDNormal1.2-4.0The The Jewish HospitalComment on above:Result Comment: The released value 8.3 was canceled by KNG on 10/29/2020 22:20Performed By: #### 45498 ####[facility] [place] [address], USAABS MONOCYTESCANCELEDNormal 0.1-1.0The The Jewish HospitalComment on above:Result Comment: The released value 0.2 was canceled by KNG on 10/29/2020 22:20Performed By: #### 01851 ####[facility] [place] [address], USAABS NEUTROPHILSCANCELEDNormal1.6-7.6The The Jewish HospitalComment on above:Result Comment: The released value 12.9 was canceled by KNG on 10/29/2020 22:20Performed By: #### 03394 ####[facility] [place] [address], USAABS NEUTROPHILS4.8 10*3/uLNormal 1.6-7.6The The Jewish HospitalComment on above:Order Comment: This order is a replacement of the rejected order with accession [id number].Performed By: #### 23811 ####[facility] [place] [address], USAABSOLUTE BANDSCANCELUniversity Hospitals TriPoint Medical CenterComment on above:Performed By: #### 21449 ####[facility] [place] [address], [place] ACANTHOCYTESCANCELUniversity Hospitals TriPoint Medical CenterComment on above:Performed By: #### 89481 ####[facility] [place] [address], USAANISOCANCELNoMemorial HospitalComment on above:Performed By: #### 55976 ####[facility] [place] [address], USAATYPICAL CELLSCANCELED NormalThe The Jewish HospitalComment on above:Performed By: #### 42780 ####[facility] [place] [address], USABANDSCANCELEDNoOhioHealth Southeastern Medical Centere The Jewish HospitalComment on above:Performed By: #### 96256 ####[facility] [place] [address], USABASOCANCELEDNormal0.0-1.0The The Jewish HospitalComment on above:Result Comment: The released value 0.0 was canceled by KNRegina on 10/29/2020 22:20Performed By: #### 23412 ####[facility] [facility] [address], USABASOPHIL STIPPL CANCELNoMemorial HospitalComment on above:Performed By: #### 41361 ####[facility] [facility] [address], USABasophils (Bld) [#/Vol]0.0 10*3/uLNormal0.0-0.2The The [facility] HospitalComment on above:Order Comment: This order is a replacement of the rejected order with accession [id number].Performed By: #### 12721 ####[facility] [place] [address], [place] Basophils/100 WBC (Bld)0.2 %Normal0.0-1.0The [facility] Comment on above:Order Comment: This order is a replacement of the rejected order with accession [id number].Performed By: #### 15291 ####[facility] [place] [address], USABLASTSCANCELED NormalThe The Jewish HospitalComment on above:Performed By: #### 07899 ####[facility] [place] [address], USABURR CELLSCANCELUniversity Hospitals TriPoint Medical CenterComment on above:Performed By: #### 44494 ####[facility] [place] [address], USADOHLE BODIESCANCELUniversity Hospitals TriPoint Medical CenterComment on above:Performed By: #### 59674 ####[facility] [place] [address], USAELLIPTOCYTES CANCELUniversity Hospitals TriPoint Medical CenterComment on above:Performed By: #### 30423 ####[facility] [place] [address], USAEOSCANCELEDNormal0.0-6.0The [facility] Comment on above:Result Comment: The released value 0.0 was canceled by KNG on 10/29/2020 22:20Performed By: #### 89234 ####[facility] [place] [address], USAEosinophils (Bld) [#/Vol]0.0 10*3/uLNormal0.0-0.5The The Jewish HospitalComment on above: Order Comment: This order is a replacement of the rejected order with accession [id number].Performed By: #### 82542 ####[facility] [place] [address], USAEosinophils/100 WBC (Bld)0.2 % Normal0.0-6.0The The Jewish HospitalComment on above:Order Comment: This order is a replacement of the rejected order with accession [id number].Performed By: #### 49146 ####[facility] [place] [address], USAErythrocyte distribution width (RBC) [Ratio]15.0 %Cpofhp08.5-15.0The The [facility] HospitalComment on above:Order Comment: This order is a replacement of the rejected order with accession [id number].Performed By: #### 21310 ####[address] [place] [address], USAGIANT PLATELETSCANCELED NormalThe The Jewish HospitalComment on above:Result Comment: The released value Present was canceled by KNG on 10/29/2020 22:20Performed By: #### 64581 ####[address] [place] [address], USAGIANT PLATELETSPresentNoMemorial Hospital Comment on above:Order Comment: This order is a replacement of the rejected order with accession [id number].Performed By: #### 73000 ####[address] [place] [address], [facility] SERVICESHCTCANCELEDNormal 39.0-50.0The The Jewish HospitalComment on above:Result Comment: The released value 35.5 was canceled by KNG on 10/29/2020 22:20Performed By: #### 34016 ####[address] [place] [address], USAHELMET CELLSCANCELEDNoMemorial Hospital Comment on above:Performed By: #### 60217 ####[address] [place] [address], [facility] SERVICESHematocrit (Bld) [Volume fraction] 35.5 %Low39.0-50.0The The Jewish HospitalComment on above:Order Comment: This order is a replacement of the rejected order with accession [id number].Performed By: #### 72563 ####[address] [place] [address], [facility] SERVICESHemoglobin (Bld) [Mass/Vol]11.0 g/dLLow13.0-17.0The The [facility] HospitalComment on above:Order Comment: This order is a replacement of the rejected order with accession [id number].Performed By: #### 67256 ####[facility] [facility] [place] [address], BXWJKVDBANKXALHvzmhb22.0-17.0The The [facility] HospitalComment on above:Result Comment: The released value 11.0 was canceled by MELIDA on 10/29/2020 22:20Performed By: #### 43485 ####[place] [address] [facility] [place] [address], [facility] DONOVAN MCMILLAN BODIESCANACMC Healthcare SystemComment on above:Performed By: #### 31110 ####[facility] [facility] [place] [address], [facility] SERVICESHYPERSEG NEUTROPHILSCANACMC Healthcare SystemComment on above:Performed By: #### 75463 ####[facility] [facility] [place] [address], [facility] HYPOCANCESelect Medical Specialty Hospital - CincinnatiComment on above: Performed By: #### 17476 ####[place] [address] [facility] [place] [address], [facility] SERVICESILCANACMC Healthcare System Comment on above:Performed By: #### 69830 ####[place] [address] [facility] [place] [address], [facility] SERVICESIMM PLATELET FRACCParma Community General HospitalComment on above:Performed By: #### 63789 ####[facility] [facility] [place] [address], [place] IMMATURE GRANSCParma Community General HospitalComment on above:Performed By: #### 53624 ####[facility] [facility] [place] [address], [facility] SERVICESIMMATURE GRANS0.3 %Normal0.0-1.0The The Jewish HospitalComment on above:Order Comment: This order is a replacement of the rejected order with accession [id number].Performed By: #### 56981 ####[place] [address] [facility] [place] [address], [facility] SERVICESLymphocytes (Bld) [#/Vol]16.0 10*3/uLHigh1.2-4.0The The [facility] HospitalComment on above:Order Comment: This order is a replacement of the rejected order with accession [id number].Performed By: #### 58474 ####[address] [place] [address], [facility] Lymphocytes/100 WBC (Bld)74.9 %High20.0-45.0The The [facility] HospitalComment on above:Order Comment: This order is a replacement of the rejected order with accession [id number].Performed By: #### 06174 ####[place] [address] [facility] [place] [address], [facility] JPWWLISFOVCTEYQhwgpw98.0-45.0The The [facility] HospitalComment on above:Result Comment: The released value 38.6 was canceled by MELIDA on 10/29/2020 22:20Performed By: #### 15890 ####[address] [place] [address], [facility] SERVICESMACROCParma Community General HospitalCommarshfield medical center on above:Performed By: #### 59855 ####[address] [place] [address], [facility] SERVICESMCHCANCELEDNormal 27.0-33.0The The [facility] HospitalComment on above:Result Comment: The released value 31.9 was canceled by KNG on 10/29/2020 22:20Performed By: #### 80043 ####[facility] [facility] [place] [address], [facility] (RBC) [Entitic mass]31.9 oaYpczry10.0-33.0The The [facility] HospitalComment on above:Order Comment: This order is a replacement of the rejected order with accession [id number].Performed By: #### 20505 ####[facility] [place] [address], [facility] CENTERYNUKSPQQGRVRCqytri67.0-35.0The The [facility] HospitalComment on above:Result Comment: The released value 31.0 was canceled by KNG on 10/29/2020 22:20Performed By: #### 30277 ####[facility] [facility] [place] [address], [facility] (RBC) [Mass/Vol]31.0 g/dLLow32.0-35.0The The [facility] HospitalComment on above:Order Comment: This order is a replacement of the rejected order with accession [id number].Performed By: #### 46112 ####[place] [address], HSAHTZHVOSZDDVZfowrl36.0-98.0The The Jewish HospitalComment on above:Result Comment: The released value 102.9 was canceled by KN on 10/29/2020 22:20Performed By: #### 28373 ####[place] [address], [facility]QUAHV (RBC) [Entitic vol]102.9 eDFugw53.0-98.0The The Jewish HospitalComment on above:Order Comment: This order is a replacement of the rejected order with accession [id number].Performed By: #### 24169 ####[facility] [place] [address], USAMETAMYELOCANCELEDNoMemorial HospitalComment on above:Performed By: #### [id number] ####[facility] [place] [address], [place] MICROCANCELEDNoMemorial HospitalComment on above: Performed By: #### [id number] ####[facility] [place] [address], USAMonocytes (Bld) [#/Vol]0.4 10*3/uLNormal0.1-1.0The The [facility] HospitalComment on above:Order Comment: This order is a replacement of the rejected order with accession [id number].Performed By: #### [id number] ####[facility] [facility] [place] [address], USAMONOSCANCELEDNormal5.0-12.0The [facility] Comment on above:Result Comment: The released value 1.0 was canceled by MELIDA on 10/29/2020 22:20Performed By: #### [id number] ####[facility] [facility] [place] [address], USAMONOS1.9 %Low5.0-12.0The The Jewish HospitalComment on above:Order Comment: This order is a replacement of the rejected order with accession [id number].Performed By: #### [id number] ####[facility] [facility] [place] [address], USAMYELOSCANCEKINDRED HOSPITAL PHILADELPHIA - HAVERTOWNNoMemorial HospitalComment on above:Performed By: #### 80655 ####[facility] [place] [address], TFOYBFUMSPQYGWQYWNGAGHHnchwa47.0-72.0The The Jewish HospitalComment on above:Result Comment: The released value 60.4 was canceled by KNG on 10/29/2020 22:20Performed By: #### 86198 ####[address] Neutrophils/100 WBC (Bld)22.5 %Low40.0-72.0The The Jewish HospitalComment on above:Order Comment: This order is a replacement of the rejected order with accession [id number].Performed By: #### 52232 ####[address] NRBCCANCELEDNormal0-0The The Jewish HospitalComment on above: Result Comment: The released value 0 was canceled by KNG on 10/29/2020 22:20 Performed By: #### 68531 ####[address] StreetNRBC SCANCANACMC Healthcare SystemComment on above:Performed By: #### 44283 ####[address]OTHER 1CANCESelect Medical Specialty Hospital - CincinnatiComment on above:Performed By: #### 22694 ####[address] [place] [address], [facility] OTHER 2CANCESelect Medical Specialty Hospital - CincinnatiComment on above: Performed By: #### 43496 ####[place] [address], [facility] SERVICESOTHER 3CParma Community General HospitalComment on above:Performed By: #### 94186 ####[address] [place] [address], [facility] SERVICESOTHER 4CParma Community General HospitalComment on above:Performed By: #### 17469 ####[facility] [place] [address], [place] OVALOCYTESCANCELUniversity Hospitals TriPoint Medical CenterComment on above: Performed By: #### 01244 ####[facility] [place] [address], USAPAPPENHEIMER BODIESCANCELUniversity Hospitals TriPoint Medical CenterComment on above:Performed By: #### 82128 ####[facility] [place] [address], USAPARASITESCANCELED NormalParkview Health Montpelier HospitalComment on above:Performed By: #### 29795 ####[facility] [place] [address], USAPLAT [id number] Health Montpelier Hospital Comment on above:Result Comment: The released value 139 was canceled by MELIDA on 10/29/2020 22:20Performed By: #### [id number] ####[facility] [facility] [address], USAPLAT [id number] 10*3/hGWxu669-953VneParkview Health Montpelier HospitalComment on above:Order Comment: This order is a replacement of the rejected order with accession [id number].Performed By: #### 50364 ####[facility] [place] [address], USAPLAT ESTIMATECANCELUniversity Hospitals TriPoint Medical Center Comment on above:Performed By: #### 50466 ####[facility] [place] [address], USAPOIKCANCELUniversity Hospitals TriPoint Medical CenterComment on above:Performed By: #### 37431 ####[facility] [place] [address], USAPOLYCANCELED NormalThe The Jewish HospitalComment on above:Performed By: #### 06001 ####[facility] [facility] [place] [address], USAPROMYELOCANCELEDNoMemorial HospitalComment on above:Performed By: #### 84746 ####[facility] [address], USARBCCANCELEDNormal4.20-5.70The The Jewish HospitalComment on above:Result Comment: The released value 3.45 was canceled by KNG on 10/29/2020 22:20Performed By: #### 53876 ####[address] [facility] [place] [address], USARBC (Bld) [#/Vol]3.45 10*6/uLLow4.20-5.70The The Jewish HospitalComment on above:Order Comment: This order is a replacement of the rejected order with accession [id number].Performed By: #### 38281 ####[address] [place] [address], NCZERXLVPHXGUXErchfq40.5-15.0 The The Jewish HospitalComment on above:Result Comment: The released value 15.0 was canceled by KNG on 10/29/2020 22:20Performed By: #### 31692 ####[facility] [facility] [place] [address], USAREACTIVE LYMPHSCANCESelect Medical Specialty Hospital - Cincinnati Comment on above:Performed By: #### 91285 ####[address] [facility] [place] [address], USAROULEAUXCANCELUniversity Hospitals TriPoint Medical CenterComment on above:Performed By: #### 94983 ####[address] [address] [address] [place] [address], [place] SCHISTOCYTESCANCELUniversity Hospitals TriPoint Medical CenterComment on above:Performed By: #### 56455 ####[facility] [place] [address], USASEGSCANCELNoOhioHealth Southeastern Medical Centere The Jewish HospitalComment on above:Performed By: #### 93762 ####[facility] [place] [address], USASICKLE CELLSCANCELED NormalThe The Jewish HospitalComment on above:Performed By: #### 24928 ####[facility] [place] [address], USASMUDGE CELLSCANCELUniversity Hospitals TriPoint Medical Center Comment on above:Result Comment: The released value Many was canceled by MELIDA on 10/29/2020 22:20Performed By: #### 34835 ####[facility] [place] [address], USASMUDGE CELLSManyNormalThe The Jewish HospitalComment on above:Order Comment: This order is a replacement of the rejected order with accession [id number].Performed By: #### 81649 ####[facility] [place] [address], USASPHEROCYTESCANCELUniversity Hospitals TriPoint Medical Center Comment on above:Performed By: #### 82998 ####[facility] [place] [address], USASTOMATOCYTESCANCELUniversity Hospitals TriPoint Medical CenterComment on above:Performed By: #### 24918 ####[facility] [place] [address], [place] TARGET CELLSCANCELEDNoMemorial HospitalComment on above:Performed By: #### 23610 ####[facility] [place] [address], USATEAR DROP CELLSCANCELUniversity Hospitals TriPoint Medical CenterComment on above:Performed By: #### 06762 ####[facility] [place] [address], USATOXIC GRANULATIONCANCELUniversity Hospitals TriPoint Medical CenterComment on above:Performed By: #### 40350 ####[facility] [place] [address], USAVAC NEUTROPHILCANCELUniversity Hospitals TriPoint Medical CenterComment on above:Performed By: #### 73248 ####[facility] [facility] [place] [address], USAWBCCANCELED Normal4.00-10.60The The Jewish HospitalComment on above:Result Comment: The released value 21.41 was canceled by MELIDA on 10/29/2020 22:20 Performed By: #### 18115 ####[facility] [facility] [place] [address], USAWBC (Bld) [#/Vol]21.41 10*3/uLHigh4.00-10.60The The Jewish HospitalComment on above:Order Comment: This order is a replacement of the rejected order with accession [id number].Performed By: #### 50603 ####[facility] [facility] [place] [address], USAABS IMM GRANS0.1 10*3/uLNormal0.0-0.2The The Jewish HospitalComment on above:Order Comment: No: Do not add to previous draw Performed By: #### 92040 ####[facility] [place] [address], USAABS NEUTROPHILS4.4 10*3/uLNormal1.6-7.6The The Jewish HospitalComment on above:Order Comment: No: Do not add to previous drawPerformed By: #### 64233 ####[facility] [facility] [place] [address], [facility] SERVICESBasophils (Bld) [#/Vol]0.1 10*3/uL Normal0.0-0.2The The Jewish HospitalComment on above:Order Comment: No: Do not add to previous drawPerformed By: #### 79792 ####[facility] [facility] [place] [address], USABasophils/100 WBC (Bld)0.3 %Normal0.0-1.0The The Jewish HospitalComment on above:Order Comment: No: Do not add to previous drawPerformed By: #### 53332 ####[facility] [facility] [place] [address], [facility] Eosinophils (Bld) [#/Vol]0.1 10*3/uLNormal0.0-0.5The The Jewish HospitalComment on above:Order Comment: No: Do not add to previous draw Performed By: #### 10804 ####[facility] [facility] [place] [address], [facility] SERVICESEosinophils/100 WBC (Bld)0.3 %Normal0.0-6.0The The Jewish HospitalComment on above:Order Comment: No: Do not add to previous drawPerformed By: #### 82450 ####[facility] [facility] [place] [address], [facility] SERVICESErythrocyte distribution width (RBC) [Ratio]15.4 %High11.5-15.0The The Jewish HospitalComment on above:Order Comment: No: Do not add to previous drawPerformed By: #### 38781 ####[facility] [facility] [place] [address], [facility] Hematocrit (Bld) [Volume fraction]33.8 %Low39.0-50.0The The Jewish HospitalComment on above:Order Comment: No: Do not add to previous draw Performed By: #### 54095 ####[facility] [place] [address], USAHemoglobin (Bld) [Mass/Vol]9.8 g/dLLow13.0-17.0The The Jewish HospitalComment on above:Order Comment: No: Do not add to previous drawPerformed By: #### 65583 ####[facility] [place] [address], [facility] SERVICESIMMATURE GRANS0.3 %Normal0.0-1.0 The The Jewish HospitalComment on above:Order Comment: No: Do not add to previous drawPerformed By: #### 19336 ####[facility] [place] [address], USALymphocytes (Bld) [#/Vol] 14.8 10*3/uLHigh1.2-4.0The The Jewish HospitalComment on above: Order Comment: No: Do not add to previous drawPerformed By: #### 62453 ####[facility] [place] [address], [place] Lymphocytes/100 WBC (Bld)75.4 %High20.0-45.0The The Jewish HospitalComment on above:Order Comment: No: Do not add to previous drawPerformed By: #### 30094 ####[facility] [facility] [address], [facility] SERVICESMCH (RBC) [Entitic mass]31.8 hxAfiaaw19.0-33.0The The Jewish HospitalComment on above:Order Comment: No: Do not add to previous drawPerformed By: #### 70779 ####[facility] [place] [address], [facility] SERVICESMCHC (RBC) [Mass/Vol]29.0 g/dLLow32.0-35.0The The Jewish HospitalComment on above:Order Comment: No: Do not add to previous drawPerformed By: #### 64006 ####[facility] [place] [address], [facility] SERVICESMCV (RBC) [Entitic vol]109.7 fL High82.0-98.0The The Jewish HospitalComment on above:Order Comment: No: Do not add to previous drawPerformed By: #### 49804 ####[facility] [facility] [place] [address], [facility] SERVICESMonocytes (Bld) [#/Vol]0.3 10*3/uLNormal0.1-1.0The The Jewish HospitalComment on above:Order Comment: No: Do not add to previous drawPerformed By: #### 69413 ####[facility] [facility] [place] [address], [facility] MONOS1.4 %Low5.0-12.0The The Jewish HospitalComment on above: Order Comment: No: Do not add to previous drawPerformed By: #### 62087 ####[facility] [facility] [place] [address], [facility] Neutrophils/100 WBC (Bld)22.3 %Low40.0-72.0The The Jewish HospitalComment on above:Order Comment: No: Do not add to previous drawPerformed By: #### 02137 ####[facility] [facility] [place] [address], [facility] SERVICESNucleated RBC/100 WBC (Bld) [Ratio]0 %Normal0-0The The Jewish HospitalComment on above:Order Comment: No: Do not add to previous drawPerformed By: #### 14566 ####[facility] [facility] [place] [address], USAOTHER 1Lymphocytosis and many smudge cells. NormalThe The Jewish HospitalComment on above:Order Comment: No: Do not add to previous drawResult Comment: Result changed by CHIKI on 10/31/2020 12:14. The previous value wasPreliminary report; verified report to follow.Performed By: #### 60551 ####[facility] [place] [address], USAOTHER 2Checked by Erika Martinez M.D. NormalThe The Jewish HospitalComment on above:Order Comment: No: Do not add to previous drawResult Comment: This result added by CHIKI on 10/31/2020 12:14.Performed By: #### 93778 ####[facility] [place] [address], USAPLAT DSD282 10*3/cYZxb742-869Ngs The Jewish HospitalComment on above:Order Comment: No: Do not add to previous drawPerformed By: #### 07051 ####[facility] [place] [address], USARBC (Bld) [#/Vol]3.08 10*6/uLLow 4.20-5.70The The Jewish HospitalComment on above:Order Comment: No: Do not add to previous drawPerformed By: #### 42528 ####[facility] [place] [address], USASMUDGE CELLSMANY PRESENT NormalThe The Jewish HospitalComment on above:Order Comment: No: Do not add to previous drawPerformed By: #### 48699 ####[facility] [place] [address], [facility] SERVICESWBC (Bld) [#/Vol]19.59 10*3/uLHigh4.00-10.60The The Jewish HospitalComment on above: Order Comment: No: Do not add to previous drawPerformed By: #### 55782 ####[facility] [facility] [place] [address], [facility] CT ABDOMEN AND PELVIS WO CONTRASTon [id number] ABDOMEN AND PELVIS WO CONTRAST NormalThe The Jewish HospitalComment on above:Order Comment: Other, s/p sigmoid colectomy d/t perforated diverticulum. Severe abdominal pain. R/Ofurther abdominal pathology.MAGNESIUM BLOODon 53-78-3491Hdbswkxmv [Mass/Vol] 2.1 mg/dLNormal1.9-2.7The The Jewish HospitalComment on above: Order Comment: No: Do not add to previous drawPerformed By: #### 09447, 49306 ####[facility] [facility] [place] [address], [facility] Magnesium [Mass/Vol]2.0 mg/dLNormal1.9-2.7The The Jewish HospitalComment on above:Order Comment: No: Do not add to previous drawPerformed By: #### 51898, 04892 ####[facility] [facility] [place] [address], USAPOC GLUCOSE LABon 71-21-4096Rujatdn [Mass/Vol]172 mg/dL Jppo27-515Nov The Jewish HospitalComment on above:Performed By: #### 59327 ####[facility] [place], [place] [address] [address], USAGlucose [Mass/Vol]177 mg/sPKqlw27-922Azk The Jewish HospitalComment on above:Performed By: #### 04001 ####[facility] [facility] [place] [address], USAGlucose [Mass/Vol]135 mg/dLHigh 70-100The The Jewish HospitalComment on above:Performed By: #### 38904 ####[facility] [place] [address], USAGlucose [Mass/Vol]131 mg/cTUqrn56-035Htz The Jewish HospitalComment on above:Performed By: #### 14757 ####[facility] [place] [address], USABASIC METABOLIC PANELon 96-41-3297Rlsouxs [Mass/Vol]7.5 mg/dLLow8.6-10.3The The Jewish HospitalComment on above:Order Comment: No: Do not add to previous drawPerformed By: #### 12306, 34985 ####[facility] [place] [address], USAChloride [Moles/Vol]105 mmol/FAsdzou50-519Lgg The Jewish HospitalComment on above:Order Comment: No: Do not add to previous drawPerformed By: #### 26566, 67195 ####[facility] [place] [address], USACO2 [Moles/Vol]24 mmol/L Anavbr18-43Vgp The Jewish HospitalComment on above:Order Comment: No: Do not add to previous drawPerformed By: #### 87569, 21540 ####[facility] [place] [address], [place] Creatinine [Mass/Vol]0.97 mg/dLNormal0.70-1.30The The Jewish HospitalComment on above:Order Comment: No: Do not add to previous drawPerformed By: #### 26397, 76847 ####[facility] [place] [address], USAGFR/1.73 sq M.predicted among blacks MDRD (S/P/Bld) [Vol rate/Area]mL/min/{1.73_m2}Normal>60The [facility] Comment on above:Order Comment: No: Do not add to previous drawResult Comment: Calculation may not be valid for patients over 70 yearsPerformed By: #### 57954, 22477 ####[facility] [place] [address], USAGFR/1.73 sq M.predicted among non-blacks MDRD (S/P/Bld) [Vol rate/Area]mL/min/{1.73_m2}Normal>60The [facility] Comment on above:Order Comment: No: Do not add to previous drawResult Comment: Calculation may not be valid for patients over 70 yearsPerformed By: #### 73538, 24515 ####[facility] [place] [address], USAGlucose [Mass/Vol]206 mg/eHWehv86-218Dpn The Jewish HospitalComment on above:Order Comment: No: Do not add to previous drawPerformed By: #### 95567, 85525 ####[facility] [place] [address], USAPotassium [Moles/Vol]3.4 mmol/LLow3.5-5.1The The Jewish HospitalComment on above:Order Comment: No: Do not add to previous drawPerformed By: #### 53967, 13612 ####[facility] [facility] [place] [address], USASodium [Moles/Vol]136 mmol/LNormal 136-145The The [facility] HospitalComment on above:Order Comment: No: Do not add to previous drawPerformed By: #### 10389, 66210 ####[facility] [facility] [place] [address], USAUrea nitrogen [Mass/Vol]17 mg/dLNormal7-25The The [facility] HospitalComment on above:Order Comment: No: Do not add to previous drawPerformed By: #### 77837, 51610 ####[facility] [facility] [place] [address], USACBC COMPLETE BLOOD COUNTon 95-01-2384Msbvuabripm distribution width (RBC) [Ratio]15.1 %High11.5-15.0The The Jewish HospitalComment on above:Order Comment: No: Do not add to previous drawPerformed By: #### 43285 ####[facility] [facility] [place] [address], [facility] Hematocrit (Bld) [Volume fraction]36.2 %Low39.0-50.0The The Jewish HospitalComment on above:Order Comment: No: Do not add to previous draw Performed By: #### 35977 ####[facility] [facility] [place] [address], [facility] SERVICESHemoglobin (Bld) [Mass/Vol]11.6 g/dLLow13.0-17.0The The Jewish HospitalComment on above:Order Comment: No: Do not add to previous drawPerformed By: #### 98162 ####[facility] [place] [address].[place] [address], [facility] SERVICESMCH (RBC) [Entitic mass]31.8 pg Dzdzyw00.0-33.0The The [facility] HospitalComment on above:Order Comment: No: Do not add to previous drawPerformed By: #### 14382 ####[facility] [place] [address].[place] [address], [facility] SERVICESMCHC (RBC) [Mass/Vol]32.0 g/xGKmctmh89.0-35.0The The [facility] HospitalComment on above:Order Comment: No: Do not add to previous drawPerformed By: #### 18853 ####[facility] [place] [address].[place] [address], [facility] MCV (RBC) [Entitic vol]99.2 uZPocx53.0-98.0The The [facility] HospitalComment on above:Order Comment: No: Do not add to previous drawPerformed By: #### 45874 ####[facility] [place] [address].[place] [address], [facility] SERVICESNucleated RBC/100 WBC (Bld) [Ratio]0 %Normal0-0The The [facility] HospitalComment on above:Order Comment: No: Do not add to previous drawPerformed By: #### 30736 ####[facility] [address], USAPLAT KMW075 10*3/sQDok444-034Zgx The Jewish HospitalComment on above:Order Comment: No: Do not add to previous drawPerformed By: #### 86292 ####[facility] [place] [address], [facility] SERVICESRBC (Bld) [#/Vol]3.65 10*6/uLLow 4.20-5.70The The [facility] HospitalComment on above:Order Comment: No: Do not add to previous drawPerformed By: #### 91118 ####[facility] [place] [address], [facility] SERVICESWBC (Bld) [#/Vol]27.62 10*3/uLHigh4.00-10.60The The [facility] HospitalComment on above: Order Comment: No: Do not add to previous drawPerformed By: #### 23131 ####[address] [place] [address], [facility] MAGNESIUM BLOODon 93-53-5866Axkwvewlm [Mass/Vol]2.0 mg/dLNormal1.9-2.7The The [facility] HospitalComment on above:Order Comment: No: Do not add to previous drawPerformed By: #### 04553, 50499 ####[facility] [facility] [place] [address], [facility] SERVICESOperative Reporton 60-37-0817Tsuxxxisi ReportNormalThe The Jewish HospitalPO GLUCOSE LABon 04-79-7714Cslczyu [Mass/Vol]141 mg/kQOcru67-644Lec The Jewish HospitalComment on above:Performed By: #### 96183 ####[address] [place] [address], USAGlucose [Mass/Vol] 128 mg/nJOyfa40-396Jwz The Jewish HospitalComment on above: Performed By: #### 45975 ####[facility] [facility] [place] [address], USAGlucose [Mass/Vol]166 mg/nNJter95-056Xbq The Jewish HospitalComment on above:Performed By: #### 87919 ####[facility] [facility] [place] [address], USAGlucose [Mass/Vol] 182 mg/oVWqor70-859Fod The [facility] HospitalComment on above: Performed By: #### 03280 ####[facility] [facility] [place] [address], USAGlucose [Mass/Vol]222 mg/qFEmob62-964Enl The [facility] HospitalComment on above:Performed By: #### 21064 ####[facility] [facility] [place] [address], [facility] SERVICESAPTTon 10-27-2020 aPTT Coag (Bld) [Time]33.4 qJlsupi72.0-35.0The The [facility] HospitalComment on above:Order Comment: No: Do not add to previous drawResult Comment: ALL RESULTS MUST BE INTERPRETED WITH RESPECT TO BLOOD DRAWING ARTIFACTOR DILUTION ERROR OF ANTICOAGULANT AT THE TIME OF SAMPLING.THE APTT SHOULD NOT BE USED TO MONITOR UNFRACTIONATED HEPARIN THERAPY, THIS LABORATORY NO LONGER HAS AN ESTABLISHED THERAPEUTIC RANGE BASEDON THE APTT. IT IS RECOMMENDED THAT THE [facility] - HEPARIN ASSAY (ANTI-XAACTIVITY) BE USED FOR THIS PURPOSE.Performed By: #### [id number], [id number] ####[place] [address] [facility] [place] [address], [facility] SERVICESARTERIAL BLOOD GAS W/COOXon [id number] EXCESS-2 mmol/ABiutrj-3-8Swz [facility] Comment on above:Performed By: #### 06927, 32830, 47147, 07455 ####[address] [place] [address], USACOHB1.3 %Normal 0.0-1.5The The [facility] HospitalComment on above:Performed By: #### [id number], 49659, 33249, 69654 ####[address] [place] [address], [facility] CARE SERVICESHCO3 (Bld) [Moles/Vol]22 mmol/QFqvzgs90-54Uvx [facility] HospitalComment on above:Performed By: #### 92072, 06682, 31367, 44300 ####[address] [place] [address], [facility] SERVICESMETHB0.6 %Normal0.0-1.5The The Jewish HospitalComment on above:Performed By: #### 10293, 88482, 44424, 11410 ####[address] [place] [address], [place] MODALITYORNormalThe The Jewish HospitalComment on above: Performed By: #### 33437, 43890, 23629, 99724 ####[address] [place] [address], [facility] SERVICESOxygen (Bld) [Partial pressure]172 mm[Hg]Critically wgng86-860Ihb The Jewish HospitalComment on above:Performed By: #### 72434, 27258, 10220, 42524 ####[address] [place] [address], [facility] SERVICESOxygen saturation in Blood 96.9 %Uoxtzl94.0-97.0The The Jewish HospitalComment on above: Performed By: #### 03478, 68510, 99723, 73762 ####[address] [place] [address], INWHSG135 aaSeEvb29-00Duo The Jewish HospitalComment on above:Performed By: #### 50329, 25731, 23161, 29114 ####[facility] [place] [address], USApH (Bld)7.43 [pH]Normal7.35-7.45The The Jewish HospitalComment on above:Performed By: #### 36284, 67679, 89548, 59960 ####[facility] [facility] [place] [place] [address], [place] THB11.3 g/dLLow12.0-16.3The The Jewish HospitalComment on above: Performed By: #### 14175, 00681, 15881, 17156 ####[facility] [facility] [place] [address], [facility] SERVICESBASIC METABOLIC PANELon 10-27-2020 Calcium [Mass/Vol]8.4 mg/dLLow8.6-10.3The [facility] Comment on above:Order Comment: No: Do not add to previous drawPerformed By: #### 31444, 50472 ####[facility] [place] [address], USAChloride [Moles/Vol]104 mmol/YYdcodw73-881Ucj The Jewish HospitalComment on above:Order Comment: No: Do not add to previous drawPerformed By: #### 97981, 22630 ####[facility] [place] [address], USACO2 [Moles/Vol]24 mmol/L Hddyop59-23Vvt The [facility] HospitalComment on above:Order Comment: No: Do not add to previous drawPerformed By: #### 27826, 31183 ####[facility] [place] [address], [place] Creatinine [Mass/Vol]1.03 mg/dLNormal0.70-1.30The The Jewish HospitalComment on above:Order Comment: No: Do not add to previous drawPerformed By: #### 63695, 37327 ####[facility] [place] [address], USAGFR/1.73 sq M.predicted among blacks MDRD (S/P/Bld) [Vol rate/Area]mL/min/{1.73_m2}Normal>60The [facility] Comment on above:Order Comment: No: Do not add to previous drawResult Comment: Calculation may not be valid for patients over 70 yearsPerformed By: #### 38166, 00882 ####[facility] [place] [address], USAGFR/1.73 sq M.predicted among non-blacks MDRD (S/P/Bld) [Vol rate/Area]mL/min/{1.73_m2}Normal>60The [facility] Comment on above:Order Comment: No: Do not add to previous drawResult Comment: Calculation may not be valid for patients over 70 yearsPerformed By: #### 71965, 11149 ####[facility] [place] [address], USAGlucose [Mass/Vol]176 mg/lAWkiu75-261Csu The Jewish HospitalComment on above:Order Comment: No: Do not add to previous drawPerformed By: #### 60845, 69456 ####[facility] [place] [address], USAPotassium [Moles/Vol]3.8 mmol/LNormal3.5-5.1The The Jewish HospitalComment on above:Order Comment: No: Do not add to previous drawPerformed By: #### 12418, 35384 ####[facility] [place] [address], USASodium [Moles/Vol]134 mmol/BOtk062-357Fwb The [facility] HospitalComment on above:Order Comment: No: Do not add to previous drawPerformed By: #### 47793, 60096 ####[facility] [place] [address], [facility] Urea nitrogen [Mass/Vol]21 mg/dLNormal7-25The The [facility] HospitalComment on above:Order Comment: No: Do not add to previous drawPerformed By: #### 78764, 72130 ####[address] [place] [address], [facility] SERVICESCALCIUM IONIZED CBGLon 52-43-8532VXOKIKV CALCIUM1.07 mmol/LLow1.13-1.32The The Jewish HospitalComment on above: Performed By: #### 35534, 97942, 45560, 72195 ####[address] [place] [address], [facility] SERVICESCBC COMPLETE BLOOD COUNTon 16-66-2359Vnawuhcpaua distribution width (RBC) [Ratio]15.0 %Xpeqzr05.5-15.0The The Jewish HospitalComment on above:Order Comment: No: Do not add to previous drawPerformed By: #### 07918 ####[address] [place] [address], [facility] SERVICESHematocrit (Bld) [Volume fraction] 38.8 %Low39.0-50.0The The Jewish HospitalComment on above:Order Comment: No: Do not add to previous drawPerformed By: #### 43903 ####[address] [place] [address], [facility] SERVICESHemoglobin (Bld) [Mass/Vol]12.5 g/dLLow13.0-17.0The The Jewish HospitalComment on above:Order Comment: No: Do not add to previous drawPerformed By: #### 77923 ####[address] [place] [address], [facility] MCH (RBC) [Entitic mass]31.9 arCsfjkg91.0-33.0The The Jewish HospitalComment on above:Order Comment: No: Do not add to previous drawPerformed By: #### 80168 ####[facility] [place] [address], [facility]AHLEQUAHHC (RBC) [Mass/Vol]32.2 g/gFJkrtbz18.0-35.0The The Jewish HospitalComment on above:Order Comment: No: Do not add to previous drawPerformed By: #### 24528 ####[facility] [place] [address], [facility] SERVICESMCV (RBC) [Entitic vol]99.0 kQWcru69.0-98.0 The The Jewish HospitalComment on above:Order Comment: No: Do not add to previous drawPerformed By: #### 11155 ####[facility] [place] [address], [facility] SERVICESNucleated RBC/100 WBC (Bld) [Ratio]0 %Normal0-0The The Jewish HospitalComment on above:Order Comment: No: Do not add to previous drawPerformed By: #### 59919 ####[facility] [facility] [place] [address], [facility] PLAT [id number] 10*3/bWJqr955-441Thq The Jewish HospitalComment on above:Order Comment: No: Do not add to previous drawPerformed By: #### 87376 ####[facility] [place] [address], [facility] RBC (Bld) [#/Vol]3.92 10*6/uLLow4.20-5.70The [facility] Comment on above:Order Comment: No: Do not add to previous drawPerformed By: #### 54214 ####[facility] [place] [address], [facility] SERVICESWBC (Bld) [#/Vol]27.81 10*3/uLHigh4.00-10.60The The Jewish HospitalComment on above:Order Comment: No: Do not add to previous draw Performed By: #### 50825 ####[facility] [place] [address], USALACTATE BLOODon 00-44-6866Xapsbmc [Moles/Vol]0.8 mmol/L Normal0.5-2.2The The Jewish HospitalComment on above:Order Comment: No: Do not add to previous drawPerformed By: #### 85679 ####[facility] [place] [address], USALIPASE BLOODon 28-04-1839YQGLQM3 Units/ZQdu22-73Vyj The Jewish HospitalComment on above:Order Comment: No: Do not add to previous drawPerformed By: #### 98972, 85110, 08017 ####[facility] [place] [address], USALIVER BATTERYon 67-61-0595Fwcphnn [Mass/Vol]3.6 g/dLNormal3.5-5.7 The The Jewish HospitalComment on above:Order Comment: No: Do not add to previous drawPerformed By: #### 58735, 39376, 72590 ####[facility] [place] [address], USAALKALINE MPFPFH35 IU/GToetst60-466Wsa The Jewish HospitalComment on above:Order Comment: No: Do not add to previous drawPerformed By: #### 67739, 56892, 27787 ####[facility] [place] [address], [place] ALT [Catalytic activity/Vol]38 U/LNormal7-52The The [facility] HospitalComment on above:Order Comment: No: Do not add to previous drawPerformed By: #### 33909, 43596, 64815 ####[facility] [place] [address], USAAST [Catalytic activity/Vol]28 U/VYmdncr81-46 The The Jewish HospitalComment on above:Order Comment: No: Do not add to previous drawPerformed By: #### 18171, 95209, 87502 ####[facility] [place] [address], USABilirubin [Mass/Vol]1.3 mg/dLHigh0.3-1.0The The Jewish HospitalComment on above:Order Comment: No: Do not add to previous drawPerformed By: #### 33227, 40106, 08712 ####[facility] [place] [address], USABilirubin.direct [Mass/Vol]0.4 mg/dLHigh0.0-0.2The The [facility] HospitalComment on above:Order Comment: No: Do not add to previous drawPerformed By: #### 01688, 73962, 79059 ####[facility] [place] [address], USAProtein [Mass/Vol]5.5 g/dLLow 6.0-8.3The The [facility] HospitalComment on above:Order Comment: No: Do not add to previous drawPerformed By: #### 00043, 76777, 26539 ####[facility] [facility] [place] [address], [place] MAGNESIUM BLOODon 03-24-1202Bxvctccum [Mass/Vol]1.7 mg/dLLow1.9-2.7The The [facility] HospitalComment on above:Order Comment: No: Do not add to previous drawPerformed By: #### 78171, 78607 ####[facility] [facility] [place] [address], [facility] SERVICESPOC GLUCOSE LABon 84-57-4141Conrruu [Mass/Vol]193 mg/rLXnpt34-584Ndj The Jewish HospitalComment on above:Performed By: #### 36961 ####[facility] [place] [address], USAGlucose [Mass/Vol]173 mg/dLHigh 70-100The The [facility] HospitalComment on above:Performed By: #### 76099 ####[facility] [place] [address], USAGlucose [Mass/Vol]153 mg/qXMvel70-860Wxr The Jewish HospitalComment on above:Performed By: #### 80406 ####[facility] [place] [address], USAGlucose [Mass/Vol]186 mg/dLHigh 70-100The The Jewish HospitalComment on above:Performed By: #### 59488 ####[facility] [place] [address], USAGlucose [Mass/Vol]183 mg/wGSsyk67-743Tqd The Jewish HospitalComment on above:Performed By: #### 84837 ####[facility] [place] [address], USAPORTABLE CHEST 1 VIEWon 42-50-8477LSTTMUNG CHEST 1 VIEWNormalThe [facility] Comment on above:Order Comment: Check NG Tube PositionPOTASSIUM WHOLE BLOOD CBGL on 99-19-7186Eyhikkbag [Moles/Vol]3.2 mmol/LLow3.4-5.2The The Jewish HospitalComment on above:Performed By: #### 95897, 10727, 76064, 56652 ####[facility] [facility] [place] [place] [address], [place] PROTHROMBIN TIMEon 75-39-6754WNN Coag (PPP) [Relative time]1.09 {INR}Normal 0.91-1.16The The Jewish HospitalComment on above:Order Comment: No: Do not add to previous drawResult Comment: ACCCP RECOMMENDED INR FOR WARFARIN THERAPY CONDITION INRPROPHYLAXIS OF VENOUS THROMBOSIS 2-3(HIGH-RISK SURGERY)TREATMENT OF VENOUS THROMBOSIS 2-3TREATMENT OF PULMONARY EMBOLISM 2-3PREVENTION OF SYSTEMIC EMBOLISM: 2-3 ACUTE MYOCARDIAL INFARCTION TISSUE HEART VALVES VALVULAR HEART DISEASE ATRIAL FIBRILLATION RECURRENT SYSTEMIC EMBOLISMMECHANICAL HEART VALVE 2.5-3.5 FROM: ORAL ANTICOAGULANTS. MECHANISM OF ACTION, CLINICALEFFECTIVENESS, AND OPTIMAL THERAPEU TIC RANGE. [id number];108:231S-246S.Performed By: #### 47842, 47375 ####[facility] [facility] [place] [address], [facility] PT Coag (PPP) [Time]14.2 kYxxpjm57.3-14.8The [facility] Comment on above:Order Comment: No: Do not add to previous drawResult Comment: ALL RESULTS MUST BE INTERPRETED WITH RESPECT TO BLOOD DRAWING ARTIFACTOR DILUTION ERROR OF ANTICOAGULANT AT THE TIME OF SAMPLING.Performed By: #### 98618, 02083 ####[facility] [facility] [place] [address], USASODIUM WHOLE BLOOD CBGLon 57-30-9585Wvzmwd [Moles/Vol]133.0 mmol/L Hyb107.0-146.0The The Jewish HospitalComment on above:Performed By: #### 03686, 65724, 70349, 86370 ####[facility] [facility] [place] [address], [facility] SERVICESTROPONIN-Ion 63-78-9059Mymjmstm I.cardiac [Mass/Vol]0.01 ng/mLNormal0.00-0.04The [facility] Comment on above:Order Comment: No: Do not add to previous drawResult Comment: REFERENCE RANGES: 0.00 - 0.04 ng/ml NORMAL 0.05 - 0.50 ng/ml INDETERMINATE > 0.50 ng/ml CONSISTENT WITH AN M.I.Performed By: #### 91385, 08347, 33634 ####[facility] [facility] [place] [address], [facility] TYPE AND SCREENon 20-69-2056GHD INTERPRETATIONONormGreene Memorial HospitalComment on above:Performed By: #### 40487 ####[facility] [facility] [place] [address], [facility] SERVICESRH INTERPRETATIONPositive NormalThe The Jewish HospitalComment on above:Performed By: #### 62059 ####[facility] [facility] [place] [address], [facility] Vital Signs Date TimeVital SignValuePerforming RhsjjemglKocmobdd90-60-3323 13:56-0400Body ptvviv560.56 cmSsailaja Barrera MD Work Phone: [phone]10-30-2025 13:56-0400 Body mass index (BMI) [Ratio]24.7 kg/i7GydjykShaikh Holly CARIAS Work Phone: [phone]10-30-2025 13:56-0400 Body rjyfcw28.31 kgShaikh Holly CARIAS Work Phone: [phone] [address]10-30-2025 13:56-0400 Diastolic blood mm[Hg]Shaikh Holly CARIAS Work Phone: [phone]10-30-2025 13:56-0400 Heart rate82 /Shaista Barrera MD Work Phone: [phone])[address]10-30-2025 13:56-0400 Respiratory rate20 /Shaista Barrera MD Work Phone: [phone] [place], [place] 7074810-30-2025 13:56-0400 SaO2% (BldA) [Mass fraction]97 %Shaikh Holly CARIAS Work Phone: [phone]10-30-2025 13:56-0400 Systolic blood wrgxpzal611 mm[Hg]Shaikh Holly CARIAS Work Phone: [phone])[address]09-23-2025 13:26-0400 Body .56 Morris Barrera MD Work Phone: [phone]09-23-2025 13:26-0400 Body mass index (BMI) [Ratio]26.4 kg/b1MzmdemShaikh Holly CARIAS Work Phone: [phone] [place], [place] [address]271609-23-2025 13:26-0400 Body uakawd77.85 kgShaikh Holly CARIAS Work Phone: [phone] [place], [place] [address]27[address]09-23-2025 13:26-0400 Diastolic blood qegymhsb05 mm[Hg]Shaikh Holly CARIAS Work Phone: [phone])[address]09-23-2025 13:26-0400 Heart rate96 /Shasita Barrera MD Work Phone: [phone])[address]09-23-2025 13:26-0400 Respiratory rate14 /Shaista Barrera MD Work Phone: [phone])[address]09-23-2025 13:26-0400 SaO2% (BldA) [Mass fraction]97 %Shaikh Holly CARIAS Work Phone: [phone]09-23-2025 13:26-0400 Systolic blood xijsqlbe158 mm[Hg]Shaikh Holly CARIAS Work Phone: [phone]07-30-2025 13:55-0400 Body mass index (BMI) [Ratio]27.5 kg/m2Lisa Aichholz [employer] Work Phone: [facility] HospitalAbubpscrvm55-15-7140 13:55-0400Body temperature 98.49 [degF]Mireya Cartwrightjen [employer] Work Phone: [facility] HospitalFtibnuhmnq25-84-9419 13:55-0400Body lltgaj29.67 kgMireya Peñaaminata [employer] Work Phone: [facility] HospitalKflwwlggzp76-54-7943 13:55-0400Diastolic blood mm[Hg]Mireya Cartwrightjen [employer] Work Phone: [facility] HospitalJettmknxvj09-48-7090 13:55-0400Heart rate73 /min Mireya Cartwrightjen [employer] Work Phone: [facility] HospitalGqieojmhcp56-75-3494 13:55-0400Respiratory rate20 /minMireya Peñaaminata [employer] Work Phone: [facility] HospitalUwcpdbrfxs93-23-1438 13:55-5116ZaA8% (BldA) [Mass fraction]96 %Mireya Peñaaminata [employer] Work Phone: [facility] HospitalMjttojnccz64-05-3363 13:55-0400Systolic blood qwuimrsc792 mm[Hg]Mireya Cartwrightjen [employer] Work Phone: [facility] HospitalWkxcgzwkoq65-87-7262 13:17-0400Body qggmes213.6 cmTodd Vallecillo MD Work Phone: [facility]06-11-2025 13:17-0400 Body mass index (BMI) [Ratio]27.22 kg/n5WxqkmivTodd Vallecillo MD Work Phone: [facility]06-11-2025 13:17-0400 Body hrivgm90.94 kgTodd Vallecillo MD Work Phone: [facility]06-11-2025 13:17-0400 Diastolic blood wbwxxpys92 mm[Hg]Todd Vallecillo MD Work Phone: [address] [place], [place] 3345506-11-2025 13:17-0400 Heart rate72 /minTodd Vallecillo MD Work Phone: [facility]06-11-2025 13:17-0400 Systolic blood yfancjty893 mm[Hg]Todd Vallecillo MD Work Phone: [facility]04-30-2025 14:44-0400 Body mass index (BMI) [Ratio]27.26 kg/m2Mireya Crystal [employer] Work Phone: [facility] HospitalDtjxjlezro66-59-1225 14:44-0400Body temperature 98.49 [degF]Mireya Crystal [employer] Work Phone: [facility] HospitalToznyfyuft50-80-7899 14:44-0400Body beejhv60.03 kgMireya Maheshcarajen [employer] Work Phone: [facility] HospitalVgawcngigu80-09-9996 14:44-0400Diastolic blood ozsclbqz28 mm[Hg]Mireya Crystal [employer] Work Phone: [facility] HospitalKpmvuyhuni42-11-7775 14:44-0400Heart rate59 /min Mireya Crystal [employer] Work Phone: [facility] HospitalJtzazsonrc51-45-0521 14:44-0400Respiratory rate18 /minAmina Maheshcarajen [employer] Work Phone: [facility] HospitalOcekatxejt19-58-6443 14:44-6181MaX4% (BldA) [Mass fraction]99 %Mireya Crystal [employer] Work Phone: [facility] HospitalUwvnknogsa09-19-6471 14:44-0400Systolic blood kmzbraml993 mm[Hg]Mireya Crystal [employer] Work Phone: [facility] HospitalJqxeryuohm10-83-1983 09:34-0400Diastolic blood uvsqgjer00 mm[Hg]Todd Vallecillo MD Work Phone: [facility]04-28-2025 09:34-0400 Systolic blood strjnzet366 mm[Hg]Todd Vallecillo MD Work Phone: [facility]04-28-2025 09:26-0400 Body jleybn724.6 cmTodd Vallecillo MD Work Phone: [facility]04-28-2025 09:26-0400 Body mass index (BMI) [Ratio]27.46 kg/k0AvfltdiTodd Vallecillo MD Work Phone: [phone]04-28-2025 09:26-0400 Body iophcc75.58 kgTodd Vallecillo MD Work Phone: [phone])731-[address] [place], [place] 29[address]404-28-2025 09:26-0400 Heart rate66 /minTodd Vallecillo MD Work Phone: [phone]03-27-2025 14:21-0400 Body mass index (BMI) [Ratio]27.43 kg/m2Mireya Rojas [employer] Work Phone: [facility] HospitalIpmcbekdrb37-23-0835 14:21-0400Body temperature 98.49 [degF]Mireya Rojas [employer] Work Phone: [facility] HospitalAlavxpucar43-43-9856 14:21-0400Body ywfvqn76.48 kgMireya Rojas [employer] Work Phone: [facility] HospitalBumditdqoa80-19-2197 14:21-0400Diastolic blood ypharwdw27 mm[Hg]Mireya Rojas [employer] Work Phone: [facility] HospitalRrfnntswfq82-95-9102 14:21-0400Heart rate65 /min Mireya Crystal [employer] Work Phone: [facility] HospitalAcwswrdkfk70-25-6831 14:21-0400Respiratory rate18 /minAminasa Crystal [employer] Work Phone: [place] [address]Ykwbanokrb08-81-7253 14:21-0400Systolic blood mowrmnyy702 mm[Hg]Mireya Aichholz [employer] Work Phone: [facility] HospitalLdqxgxiiff08-57-9798 13:31-0500Body etfbtx355.6 cmLeander Gomezpatrick [employer] Work Phone: [facility] HospitalWwziythpnq34-11-9338 13:31-0500Body mass index (BMI) [Ratio]29.25 kg/c2Iqmmfevb Chanel [employer] Work Phone: [facility] HospitalHtigvtfhwf56-74-0965 13:31-0500Body temperature 96.6 [degF]Leander Chanel [employer] Work Phone: [facility] HospitalOzmxuowxvm10-85-3364 13:31-0500Body lquqsb17.29 kgBrjustin Chanel [employer] Work Phone: [place] [address]Gfrvxtbmok91-75-0186 13:31-0500Diastolic blood oauolkcj37 mm[Hg]Leander Chanel [employer] Work Phone: [facility] HospitalTsmouzclpu19-04-9918 13:31-0500Heart rate79 /min Leander Chanel [employer] Work Phone: [facility] HospitalVawamsyemu53-44-1775 13:31-0500Respiratory rate16 /minBrjustin Chanel [employer] Work Phone: [facility] HospitalEvpqyianox50-59-2278 13:31-7578RaH7% (BldA) [Mass fraction]97 %Leander Chanel [employer] Work Phone: [place] [address]Xmpfinrnrm62-24-9868 13:31-0500Systolic blood khrpygjv783 mm[Hg]Leander Chanel [employer] Work Phone: [facility] HospitalQlafqfciyf51-23-5234 14:03-0500Body groeyb822.8 Pedro Zapata MD Work Phone: [facility]12-05-2024 14:03-0500Body mass index (BMI) [Ratio]28.74 kg/u2ImskpFrederick Zapata MD Work Phone: [facility]12-05-2024 14:03-0500Body temperature 97.11 [degF]Frederick Zapata MD Work Phone: [facility]12-05-2024 14:03-0500Body .1 kgFrederick Zapata MD Work Phone: [facility]12-05-2024 14:03-0500Diastolic blood rugtltdp54 mm[Hg]Frederick Zapata MD Work Phone: [facility]12-05-2024 14:03-0500Heart rate79 /min Frederick Zapata MD Work Phone: [facility]12-05-2024 14:03-0500Respiratory rate 16 /minFrederick Zapata MD Work Phone: [facility]12-05-2024 14:03-1011OkT1% (BldA) [Mass fraction]97 %Frederick Zapata MD Work Phone: [facility]12-05-2024 14:03-0500Systolic blood dduyeggr005 mm[Hg]Frederick Zaptaa MD Work Phone: [facility]10-30-2024 14:18-0400Body otvdbr342.6 cmLeander Meehank [employer] Work Phone: no[facility] HospitalCrzrqnbfyz53-58-5111 14:18-0400Body mass index (BMI) [Ratio]27.81 kg/i3JzpuambiLeander Chaveztrick [employer] Work Phone: no[facility] HospitalHlqxuquhel18-03-2093 14:18-0400Body temperature 97.5 [degF]Leander Chanel [employer] Work Phone: no[facility] [id number] 14:18-0400Body .48 kgLeander Chanel [employer] Work Phone: no[facility] [phone] 14:18-0400Diastolic blood yiwqhsur16 mm[Hg]Leander Chanel [employer] Work Phone: [id number] 14:18-0400Heart rate83 /min Leander Chanel [employer] Work Phone: [facility] HospitalCuxayokjqj26-71-2210 14:18-0400Respiratory rate16 /minBrittany Chanel [employer] Work Phone: [facility] [id number] 14:18-4830AaT0% (BldA) [Mass fraction]96 %Leander Chanel [employer] Work Phone: [facility] HospitalPqdovdlntt70-71-1992 14:18-0400Systolic blood qgvaoxwj667 mm[Hg]Leander Chanel [employer] Work Phone: [facility] [phone] 14:46-0500Body temperature 97.59 [degF]Frederick Zapata MD Work Phone: [facility]12-07-2023 14:46-0500Body nlwcyt62.3 kgFrederick Zapata MD Work Phone: [facility]12-07-2023 14:46-0500Diastolic blood hafotjif12 mm[Hg]Frederick Zapata MD Work Phone: [facility]12-07-2023 14:46-0500Heart rate77 /min Frederick Zapata MD Work Phone: [facility]12-07-2023 14:46-0500Respiratory rate 18 /minFrederick Zapata MD Work Phone: [facility]12-07-2023 14:46-3616XuP5% (BldA) [Mass fraction]97 %Frederick Zapata MD Work Phone: [facility]12-07-2023 14:46-0500Systolic blood zebvuqqs959 mm[Hg]Frederick Zapata MD Work Phone: [facility]10-13-2023 17:35-0400Body lotkqm211.56 cmPholly Mcgee Other [employer] Other 10-13-2023 17:35-0400Body mass index (BMI) [Ratio] 29.61 kg/l4VcuodoAnnmarie Mcgee Other [employer] Other 10-13-2023 17:35-0400Body typtraepjiw56.2 [degF]Annmarie Maemond Other [employer] Other 10-13-2023 17:35-0400Body klhyut16.25 kgAnnmarie Mcgee Other [employer] Other 10-13-2023 17:35-0400Diastolic blood ovdxrkhh29 mm[Hg] Annmarie Maemond Other [employer] Other 10-13-2023 17:35-0400Respiratory rate18 /minAnnmarie Mcgee Other [employer] Other 10-13-2023 17:35-8052VtM4% (BldA) [Mass fraction]96 % Annmarie Arely Other [employer] Other 10-13-2023 17:35-0400Systolic blood mm[Hg] Annmarie Arely Other [employer] Other 01-16-2023 14:35-0500Body rxnbvo839.56 Tessy Mcgee Other [employer] Other 01-16-2023 14:35-0500Body mass index (BMI) [Ratio] 29.18 kg/g5IelgieAnnmarie Mcgee Other [employer] Other 01-16-2023 14:35-0500Body qoppfpkzidz60.1 [degF]Annmarie Mcgee Other [employer] Other 01-16-2023 14:35-0500Body erevms25.11 kgAnnmarie Mcgee Other [employer] Other 01-16-2023 14:35-0500Respiratory rate18 /minAnnmarie Mcgee Other [employer] Other 01-16-2023 14:35-3295CyW5% (BldA) [Mass fraction]98 % Annmarie Mcgee Other [place] [employer] Other 05-02-2022 13:47-0400Body .8 Pedro Zapata MD Work Phone: [facility]05-02-2022 13:47-0400Body temperature 97.9 [degF]Frederick Zapata MD Work Phone: [facility]05-02-2022 13:47-0400Body iafsbe46.39 kgFrederick Zapata MD Work Phone: [facility]05-02-2022 13:47-0400Diastolic blood earmtcod26 mm[Hg]Frederick Zapata MD Work Phone: [facility]05-02-2022 13:47-0400Heart rate66 /min Frederick Zapata MD Work Phone: [facility]05-02-2022 13:47-0400Respiratory rate 16 /minFrederick Zapata MD Work Phone: [facility]05-02-2022 13:47-4599GlX1% (BldA) [Mass fraction]97 %Frederick Zapata MD Work Phone: [facility]05-02-2022 13:47-0400Systolic blood vhyvkpwu125 mm[Hg]Frederick Zapata MD Work Phone: [facility] Encounters Encounter DateEncounter TypeCare ProviderFacilityStart: 07-01-2025 End: 28-25-6510ucvscewvfjLnrohl Fawwad MD Work Phone: [facility] ClydeStart: 07-01-2025 End: 20-72-3083Ywaztip encounter procedureJejudyflakito Garcia [facility] Work Phone: Start: 05-25-2025 End: 83-48-4233crkmmcxgrtFrlfxa Fawwad MD Work Phone: [facility] Work Phone: Start: 05-25-2025 End: 79-30-5992Mbluume encounter procedureRiojudyflakito Garcia [facility] Evangelist Work Phone: Start: 04-07-2025 End: 61-12-2066Vjswukew Result EncounterLisa Aichholz [employer] Work Phone: noms External Department UnsolicitedStart: 04-07-2025 End: 92-89-6192Fvyertlj Result EncounterLisa Aichholz [employer] Work Phone: noms External Department UnsolicitedStart: 03-31-2025 End: 70-33-2318Onasiu flowsheetLisa Aichholz [employer] Work Phone: noms CWM FMStart: 03-31-2025 End: 27-80-2327Daqkha flowsheetLisa Aichholz [employer] Work Phone: noms CWM FMStart: 03-31-2025 End: 60-51-7835Gnxqwc outpatient visit 25 minutesMireya Rojas NP Work Phone: noms CWM FMComment on above:Type 2 diabetes mellitus without complication, without long-term current use of insulin (HCC) (Primary Dx); Type 2 diabetes mellitus with diabetic polyneuropathy, without long-term current use of insulin (HCC); Essential hypertension; 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); MVP (mitral valve prolapse); Dizziness and giddiness; Generalized abdominal painStart: 03-31-2025 End: 04-36-4433dvomfjikcbCPFH AICHHOLZNot AvailableStart: 03-11-2025 End: 31-59-2917ffocqfrbruEZLSB ALTNot AvailableStart: 03-11-2025 End: 25-59-6187Pafjgq flowsheetTyler Alt RNNOMS FNR FMStart: 03-11-2025 End: 74-11-9663Skrbzv flowsheetTyler Alt RNNOMS FNR FMStart: 03-04-2025 End: 38-93-7198jhnhvekbvwBsuxit Robles MA Work Phone: noms POPULATION HEALTHStart: 02-10-2025 End: 90-32-8891bljhflydsnDJYJXARWellstar [facility] AmbulatoryStart: 02-10-2025 End: 93-02-5244Mldzsf outpatient visit 15 minutesTodd Vallecillo MD Work Phone: uh [facility] StanlylandsComment on above:Shortness of breath (Primary Dx); Mitral valve prolapse; Dizziness; Orthostatic hypotension; Nonrheumatic mitral valve regurgitation; Diabetes mellitus type II, non insulin dependent (Multi); BMI 27.0-27.9,adult; Former smokerStart: 02-01-2025 End: 71-92-0954CtenhiCpek Aichholz NP Work Phone: noms CWM FMComment on above: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); Type 2 diabetes mellitus without complication, without long-term current use of insulin; Hypercholesterolemia (CMS/HCC); Type 2 diabetes mellitus with diabetic polyneuropathy, without long-term current use of insulin ([facility])Start: 01-21-2025 End: 34-26-5492oxqcvejzqoDVZBADREast Liverpool City Hospitaltart: 12-31-2024 End: 24-89-4006qeyowudvlcEXXWC ALTNot AvailableStart: 12-31-2024 End: 41-40-2495Fzrppb flowsheetTyler Alt RNNOMS FNR FMStart: 12-31-2024 End: 06-77-0533Ulzopt flowsheetTyler Alt RNNOMS FNR FMStart: 12-30-2024 End: 05-67-5417Kimxih outpatient visit 15 Linda Rojas NP Work Phone: noms CW FMComment on above:Type 2 diabetes mellitus without complication, without long-term current use of insulin (Primary Dx); Dizziness and giddiness; Type 2 diabetes mellitus with diabetic polyneuropathy, without long-term current use of insulin ([facility]); Nonrheumatic mitral valve regurgitationStart: 12-30-2024 End: 57-26-5330rrgowlsftcZYUS AICHHOLZNot AvailableStart: 12-30-2024 End: 10-06-9092Gpnkur Roberto Rojas [employer] Work Phone: noms CW FMStart: 12-30-2024 End: 97-56-7069Zngtpsdoris Rojas [employer] Work Phone: noms [facility] FMStart: 12-28-2024 End: 51-64-2333wguepysfgcRLABURBWellstar Spalding [facility] Hospital AmbulatoryStart: 12-28-2024 End: 76-34-2612Ylzwdt consultation new/estab patient 60 Lizy Vallecillo MD Work Phone: uh [facility] Steele CreekComment on above:Orthostatic hypotension (Primary Dx); Mitral valve prolapse; Shortness of breath; Dizziness; BMI 27.0-27.9,adult; Former smoker; Nonrheumatic mitral valve regurgitation; Diabetes mellitus type II, non insulin dependent (Multi)Start: 12-16-2024 End: 35-39-2406Qromei OnlyMireya Rojas [employer] Work Phone: noms CWM FMComment on above:MVP (mitral valve prolapse) (Primary Dx); Dizziness and giddinessStart: 12-12-2024 End: 09-05-8085Vrvijrkje Result EncounterMireya Peñaz [employer] Work Phone: NOSN External Department UnsolicitedStart: 12-12-2024 End: 05-22-9210Hxsqmuhfd Result EncounterLisa Peñaz [employer] Work Phone: noms External Department UnsolicitedStart: 11-26-2024 End: 21-70-8693Szokiq flowsYvonne Peñaz [employer] Work Phone: NODR CWM FMStart: 11-26-2024 End: 87-70-5415Hvrrxp flowsYvonne Peñaz [employer] Work Phone: noMS CWM FMStart: 11-26-2024 End: 16-84-5178Pqpiym outpatient visit 25 minutesMireya Rojas [employer] Work Phone: noms CWM FMComment on above:Type 2 diabetes mellitus without complication, 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) (P rimary Dx); Type 2 diabetes mellitus with diabetic polyneuropathy, 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); Benign essential hypertension (CMS/HCC); Essential hypertension; Hypercholesterolemia (CMS/HCC); Chronic lymphocytic leukemia (CMS/HCC); Chronic obstructive pulmonary disease, unspecified (CMS/HCC); Murmur, cardiac; Dizziness and giddinessStart: 11-26-2024 End: 88-30-5122kqpdohslaoLBXU AICHHOLZNot AvailableStart: 11-12-2024 End: 40-47-4197cxcbqgiyusZDOSV ALTNot AvailableStart: 11-12-2024 End: 15-25-8287Ezhrid flowsheetTyler Alt RNNOMS FNR FMStart: 11-12-2024 End: 79-62-5711Ugnotg flowsheetTyler Alt RNNOMS FNR FMStart: 10-08-2024 End: 03-26-4918tiaixdwdwaIEQOY ALTNot AvailableStart: 10-08-2024 End: 54-16-6102Xjwywt flowsheetTyler Alt RNNOMS FNR FMStart: 10-08-2024 End: 75-82-8381Bavccv flowsheetTyler Alt RNNOMS FNR FMStart: 10-01-2024 End: 30-92-2022Tabxna flowsheetBrittany Chanel [employer] Work Phone: NODS CWM FMStart: 10-01-2024 End: 55-85-8328Nvfams flowsheetBrittany Chanel [employer] Work Phone: NOMS CWM FMStart: 09-10-2024 End: 28-23-3337Prvqva flowsheetTyler Alt RNNOMS FNR FMStart: 09-10-2024 End: 21-25-2692Mhraid flowsheetTyler Alt RNNOMS FNR FMStart: 09-10-2024 End: 45-63-4882popdhewycaFTNXB ALTNot AvailableStart: 09-07-2024 End: 88-32-5478WeowyvVhscxgjh Chanel [employer] Work Phone: noms CWM FMComment on above: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)Start: 08-18-2024 End: 17-43-1420Rxcjgw flowsheetBrittany Chanel [employer] Work Phone: NOMS CWM FMStart: 08-18-2024 End: 74-25-4645Lzaqcv flowsheetBrittany Chanel [employer] Work Phone: NOMS CWM FMStart: 08-18-2024 End: 95-48-2672Gfonzvu encounter procedureBrittany Chanel [employer] Work Phone: NOBT CWM FMComment on above:Type 2 diabetes mellitus with diabetic polyneuropathy, 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) (Primary Dx)Start: 08-18-2024 End: 17-69-1961wmabaarnbiKOPXLFAPWinston Alvarez AvailableStart: 08-06-2024 End: 57-40-1979Bcpxfq outpatient visit 15 Sg Zapata MD Work Phone: Hematology/OncologyComment on above:Chronic lymphocytic leukemia (HCC) (Primary Dx)Start: 08-06-2024 End: 35-09-3114kmnfzqaaygCNKRF ABHYANKARFacility:[facility] Centertart: 08-06-2024 End: 07-29-2140Qiqpfmmcf Result EncounterGeneric External Data ProviderNOMS External Department UnsolicitedStart: 08-06-2024 End: 10-15-2624Tvnacnqqj Result EncounterGeneric External Data ProviderNOMS External Department UnsolicitedStart: 08-03-2024 End: 14-01-7774YtwmbfLslvosvwAnders Chanel NP Work Phone: noms CWM FMComment on above:Type 2 diabetes mellitus without complication, 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); Hypercholesterolemia (CMS/HCC)Start: 08-02-2024 End: 25-78-7421Zaxrbqnik Result EncounterGeneric External Data ProviderNOMS External Department UnsolicitedStart: 08-02-2024 End: 53-93-7568Jodkkwrks Result EncounterGeneric External Data ProviderNOMS External Department UnsolicitedStart: 07-22-2024 End: 24-40-9065DfxdjtDvxygmijAnders Chanel [employer] Work Phone: noms CWM FMComment on above:Type 2 diabetes mellitus without complication, 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)Start: 07-13-2024 End: 28-14-2784Screuhhuw Result EncounterGeneric External Data ProviderNOMS External Department UnsolicitedStart: 07-13-2024 End: 36-26-1124Jitpvcdqr Result EncounterGeneric External Data ProviderNOMS External Department UnsolicitedStart: 07-08-2024 End: 85-17-3060KwfpdrKatia Chanel [employer] Work Phone: NOMS CWM FMComment on above:Polyneuropathy due to type 2 diabetes mellitus ([facility]/HCC)Start: 07-01-2024 End: 21-14-1960Gbelrh outpatient visit 15 minutesLeander Meehank [employer] Work Phone: NOMS CWM FMComment on above:Type 2 diabetes mellitus with diabetic polyneuropathy, without long-term current use of insulin ([facility]) (Primary Dx); 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; Polyneuropathy due to type 2 diabetes mellitus ([facility]); Essential hypertension; Atherosclerosis of aorta ([facility])Start: 07-01-2024 End: 49-37-5783gmchsapefjUCELRZVV FITZPATRICKNot AvailableStart: 07-01-2024 End: 09-00-0465Eslajf flowsheetLeander Chanel [employer] Work Phone: NOMS CWM FMStart: 07-01-2024 End: 29-61-4047Jjykhh flowsheetSaurabhbaironkaitlyn Chanel [employer] Work Phone: NOMS CWM FMStart: 06-23-2024 End: 47-70-1297Uompcr OnlyTalikaitlyn HoweChanel [employer] Work Phone: NOMS CWM FMStart: 06-22-2024 End: 05-55-6697UadrtoDnaumhok Chanel [employer] Work Phone: NOMS CWM FMComment on above:Polyneuropathy due to type 2 diabetes mellitus ([facility])Start: 04-30-2024 End: 51-91-2620XluwwpIhvmfo Nguyen MANOMS CWM IMComment on above: Hypercholesterolemia ([facility])Start: 04-23-2024 End: 89-07-6187RovtbgYurcwedq Chanel [employer] Work Phone: NOMS CWM FMComment on above:Type 2 diabetes mellitus without complication, without long-term current use of insulin ([facility]) (Delia horan Dx)Start: 11-15-2023 End: 37-31-7985Rzsrydvfj Result EncounterSsailaja Barrera MD Work Phone: noms External Department UnsolicitedStart: 11-15-2023 End: 77-70-5286Ckywloxgs Result EncounterSsailaja Barrera MD Work Phone: noms External Department UnsolicitedStart: 08-20-2023 Patient encounter procedureSaurabhjustin HoweChanel [employer] Work Phone: noms HealthcareStart: 08-08-2023 End: 79-46-0270Hvktrg outpatient visit 25 minutesFrederick Zapata MD Work Phone: Hematology/OncologyComment on above:Chronic lymphocytic leukemia (HCC) (Primary Dx)Start: 06-14-2023(URG) [facility]gent Care [facility]deStart: 06-14-2023 End: 63-76-2480mwwnwtdwtxBeimtk Dymond Other [employer] Other Start: 38-27-5717Nkgcoj Aly Su PA-C Work Phone: appointment CenterComment on above:Pain (Primary Dx) Start: 09-17-2022 End: 27-81-2993cmpxsockwmLpitxi Dymond Other [employer] Other Start: 43-68-6632Ygmgug outpatient new 20 minutes Annmariespeedy [facility] ClydeStart: 07-31-2022 End: 32-77-9128cmfdilmdtsDPF MIREYA AICHHOLZFacility:O9Nhrfr: 07-23-2022 End: 60-74-3264akhvmziwvaJQN MIREYA Marybethcility:X0Oilpm: 05-08-2022 End: 46-16-7220jyqmkmfyyaEsiavy FawwadFacility:[facility] Start: 05-08-2022 End: 72-16-0546Nsxlswb encounter procedureMD Shaikh Holly Work Phone: [facility] [place] Start: 01-03-2022 End: 80-21-1974etjupnpmtrKJTZAY H FAWWADFacility:O0Pmuhg: 01-01-2022 End: 16-31-4005fjojeidyacOrzlt Abhyankar MD Work Phone: Hematology/OncologyComment on above:Chronic lymphocytic leukemia (HCC) (Primary Dx)Start: 01-01-2022 End: 86-32-4690Dqzxaal encounter procedureFrederick Zapata MD Work Phone: SANDUSKYStart: 08-11-2021 End: 49-64-0624Mbmptyygmj and management of inpatientSHAIXAVIER MARKWADFacility:[facility] Start: 10-27-2020 End: 03-54-8472Ucwjcuqzda and management of inpatientINGRID BRENTON Facility:[facility] Procedures DateProcedureProcedure DetailPerforming ClinicianStart: 76-76-3096Qsduf occult peroxidase actv qual feces 1 deterLisa Crystal [employer] Work Phone: Start: 32-25-8849Jfzavksctv glycosylated r7qDtzv Crystal [employer] Work Phone: Start: 77-16-6587Xxqpk 1996 panel - Serum or Plasma Todd Vallecillo MD Work Phone: Start: 30-39-6322Oct routine ecg w/least 12 lds w/i&r Todd Vallecillo MD Work Phone: Start: 25-68-5409NH ECHO DOPPLER COMPLETEAminasa Crystal [employer] Work Phone: Start: 94-37-9853Gfipnebmfx glycosylated p1fXbup Crystal [employer] Work Phone: Start: 12-29-7034ZBB CBC W AUTO DIFF BLDGeneric External Data ProviderStart: 92-80-7708Kgy spinal canal cervical w/o contrast matrlGeneric External Data ProviderStart: 23-66-1142PI CERVICAL SPINE 5VGeneric External Data ProviderStart: 92-91-7889YB LUMBAR SPINE 2 OR 3VSsailaja Barrera MD Work Phone: Start: 08-05-2023 End: 08-20-2023H/O: colostomyColostomy statusBrittkaitlyn Chanel [employer] Work Phone: Start: 39-40-5198SBO screeningCNP MIREYA CRYSTALComment on above:Performed By: #### PSASC #### [facility] [address] [place] [address] Dr. Estrada CarpenterStart: 38-21-2703Rebriajdpl of scrotum and contentsMD Shaikh Holly Work Phone: Start: 75-87-4914Cxoiqmzwvuqnoes of abdomenMD Shaikh Holly Work Phone: Start: 00-60-1516BHYSBOWO OF STOMACH WITH DRAINAGE DEVICE, VIA OPENINGZAHRAA TANGStart: 67-78-1058Cacapl Descending Colon to Cutaneous, Open ApproachZAHRAA TANGStart: 11-74-9926Rnwhskarj of Sigmoid Colon, Open ApproachZAHRAA TANGStart: 06-49-3678Oihmagns screenINGCRYSTAL FARRIS Comment on above:Performed By: #### [id number] ####[facility] [place] [address], USAHistory of decompression of median nerveHistory of carpal tunnel release of both wristAnkit Barrera MD Work Phone: Plan of Treatment DateCare ActivityDetailAuthorStart: 82-83-6947TXqF/Tdap/Td Vaccines (2 - Td or Tdap)DTaP/Tdap/Td Vaccines (2 - Td or Tdap)[facility] Start: 42-97-4895Fndhh microalbumin profileDTaP,Tdap,Td Vaccine (2 - Td or Tdap) [facility]: 39-08-9817Iiwcytps ScreeningDiabetes ScreeningRegional Medical Centertart: 46-88-3194Qjzkqpuv screeningDiabetes: Retinopathy ScreeningTIMPANOGOS REGIONAL [facility]ITAL HealthcareStart: 76-36-5992Hqhgwvww ScreeningDiabetes ScreeningWvumedicine [facility] Start: 68-09-3808Thphpyco screeningDiabetes: Retinopathy ScreeningTIMPANOGOS REGIONAL [facility]PITAL HealthcareStart: 95-13-4449Fiswm panelLipid PanelMarietta Memorial HospitalStart: 10-39-4673Ppamg screening for proteinDiabetes: Urine Protein ScreeningNOVT HealthcareStart: 87-60-9794Eerpvbdrkd A1c measurementDiabetes: Hemoglobin B7LGHWK HealthcareStart: 09-28-2025 End: 52-01-5577Pejdwjw encounter riebcyjkz90/27/2026 1:40 PM EST Office Visit [place] [id number] [facility] [address] [place] [address] Todd Vallecillo MD [address] [facility] [address] [place] [address] [facility]Start: 12-17-2025Medicare Annual Wellness (AWV) Medicare Annual Wellness (AWV)[facility] HealthcareStart: 08-06-2025 End: 62-99-3387TOO W Auto Differential panel - BloodCOMPLETE BLOOD COUNT AND DIFFERENTIAL Lab Routine Chronic lymphocytic leukemia (HCC) Expected: 08/06/2025 (Approximate), Expires: 08/06/2025leveland ClinicComment on above:Expected: 08/06/2025 (Approximate), Expires: 08/06/2025Start: 08-06-2025 End: 01-70-8156Snylfpawhwlri metabolic 2000 panel - Serum or PlasmaCOMPREHENSIVE METABOLIC PANEL Lab Routine Chronic lymphocytic leukemia (HCC) Expected: 08/06/2025 (Approximate), Expires: 08/06/2025leveland ClinicComment on above: Expected: 08/06/2025 (Approximate), Expires: 08/06/2025Start: 08-06-2025 End: 04-72-0250Zvemrwc dehydrogenase [Enzymatic activity/volume] in Serum or PlasmaLACTATE DEHYDROGENASE Lab Routine Chronic lymphocytic leukemia (HCC) Expected: 08/06/2025 (Approximate), Expires: 08/06/2025[facility] Work Phone: Comment on above:Expected: 08/06/2025 (Approximate), Expires: 08/06/2025Start: 08-05-2025 End: 73-58-5987Wthffs-up nkxkoybhl57/04/2025 2:20 PM EST Visit (SP) Office Hematology/Oncology [address] [facility] [place], [place] [phone] Frederick Zapata MD [address] [place] [address] 1 year follow upHematology/OncologyComment on above:1 year follow upStart: 08-05-2025 End: 68-95-8965Xlajrid encounter uxhwwrfle61/04/2025 2:00 PM EST Office Visit [facility] [address] [place], [place] [address] [address] 1 year follow upNortAscension Borgess Lee Hospital LaboratoryComment on above:1 year follow upStart: 07-01-2025 End: 24-71-4389Tebqrhs encounter diqgpfiux69/30/2025 1:20 PM EDT Office Visit [facility] [address] [place] [address] Mireya Rojas NP [address] [place] [address] [facility]OM[facility] CWM FMStart: 20-80-4450Jiiqolpuzt A1c measurement Diabetes: Hemoglobin C1TWKQN HealthcareStart: 10-68-2467Nxyurgh referral [facility] Work Phone: Start: 21-71-4515Aoufmvodw vaccinationInfluenza Vaccine (#1)NOMS HealthcareStart: 03-31-2025 End: 29-28-5733CVC W Auto Differential panel - BloodCBC and differential Lab Routine Generalized abdominal pain Expected: 03/31/2025 (Approximate), Expires: 03/31/2026[facility] HealthcareComment on above:Expected: 03/31/2025 (Approximate), Expires: 03/31/2026Start: 03-31-2025 End: 61-24-3682Bsllpuqlpmras metabolic 2000 panel - Serum or PlasmaComprehensive metabolic panel Lab Routine Generalized abdominal pain Expected: 03/31/2025 (Approximate), Expires: 03/31/2026[facility] HealthcareComment on above:Expected: 03/31/2025 (Approximate), Expires: 03/31/2026Start: 03-31-2025 End: 68-83-8453Wpnlwrjcmx.gastrointestinal.lower [Presence] in Stool by ImmunoassayOccult blood x 1, stool Lab Routine Generalized abdominal pain Expected: 03/31/2025 (Approximate), Expires: 03/31/2026N[facility] Healthcare Work Phone: Comment on above:Expected: 03/31/2025 (Approximate), Expires: 03/31/2026Start: 03-31-2025 End: 90-65-3621Alhjklh encounter procedureNOMERCY HOS[facility] FMComment on above:Type 2 diabetes mellitus with diabetic polyneuropathy, without long-term current use of insulin (HCC) (Primary Dx); Essential hypertension; Type 2 diabetes mellitus without complication, without long-term current use of insulin (HCC); 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 [place] [place] [address] Sunny Chery RNNOMS FNR Start: 03-04-2025 End: 00-36-1433Adlhnyxt Rdnwtuo4203/04/2025 2:30 PM EDT Clinical Support [facility] FNR [address] [facility] [address] [place] [address] Alt, Sunny, RNNOMS FNR FM Start: 34-39-9962Jfyzsmkelm A1c measurementDiabetes: Hemoglobin B3KRPTK HealthcareStart: 01-21-2025 End: 05-31-4082Mvuuhjm encounter yvzkdugli24/22/2025 2:15 PM EDT Appointment Domingo Dunaway [address] [facility] [address] HY Domingo DunawayStart: 01-21-2025 End: 70-44-4506Vrivbqv encounter procedureUH Domingo DunawayStart: 01-01-2025 DIABETES SCREENDIABETES SCREENCollins ClinicStart: 12-31-2024 End: 93-39-8641Xmixkznr SupportNOMS FNR FMComment on above:ArrivedStart: 12-30-2024 End: 13-41-7309Bralyqh encounter procedureNOMS CWM FMComment on above:Dizziness and giddiness (Primary Dx); Type 2 diabetes mellitus with diabetic polyneuropathy, 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); Nonrheumatic mitral valve regurgitationStart: 12-28-2024 End: 43-04-7155BT Heart Perfusion W stress and W radionuclide IVNuclear Stress Test Cardiac Nuclear Medicine Routine Shortness of breath Expected: 12/28/2024 (Approximate), Expires: 12/28/2026[facility] Service Area Work Phone: Comment on above:Expected: 12/28/2024 (Approximate), Expires: 12/28/2026Start: 11-26-2024 End: 90-91-7311Tponp metabolic 1998 panel - Serum or PlasmaBasic metabolic panel Lab Routine Type 2 diabetes mellitus with diabetic polyneuropathy, without jasmyne g-term current use of insulin (CMS/HCC) Essential hypertension Expected: 11/26/2024 (Approximate), Expires: 11/26/2025NOMS HealthcareComment on above: Expected: 11/26/2024 (Approximate), Expires: 11/26/2025Start: 11-26-2024 End: 79-90-3315Tbbwvqdyizvztr 2D completeEchocardiogram 2D complete Echocardiography High Priority Essential hypertension Murmur, cardiac Dizziness and giddiness Expected: 11/26/2024 (Approximate), Expires: 11/26/2026[facility] HealthcareComment on above:Expected: 11/26/2024 (Approximate), Expires: 11/26/2026Start: 11-26-2024 End: [id number] function 2000 panel - Serum or PlasmaHepatic function panel Lab Routine Hypercholesterolemia (CMS/HCC) Expected: 11/26/2024 (Approximate), Expires: 11/26/2025[facility] HealthcareComment on above:Expected: 11/26/2024 (Approximate), Expires: 11/26/2025Start: 11-26-2024 End: 01-40-3044Gpzun 1996 panel - Serum or PlasmaLipid panel Lab Routine Hypercholesterolemia (CMS/HCC) Expected: 11/26/2024 (Approximate), Expires: 11/26/2025[facility] HealthcareComment on above:Expected: 11/26/2024 (Approximate), Expires: 11/26/2025Start: 11-26-2024 End: 90-48-9677Ylcvlofywraf/Creatinine panel in random UrineMicroalbumin / creatinine, urine ratio Lab Routine Type 2 diabetes mellitus with diabetic polyneuropathy, without long-term current use of insulin ([facility]/HCC) Essential hypertension Expected: 11/26/2024 (Approximate), Expires: 11/26/2025[facility] Healthcare Work Phone: Comment on above:Expected: 11/26/2024 (Approximate), Expires: 11/26/2025Start: 11-26-2024 End: 60-85-4403Rnpjeno encounter procedureNOMS CWM FMComment on above:Type 2 diabetes mellitus with diabetic polyneuropathy, 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) (Primary Dx); Benign essential hypertension (CMS/HCC); Essential hypertension; Hypercholesterolemia (CMS/HCC); Chronic lymphocytic leukemia (CMS/HCC); Chronic obstructive pulmonary disease, unspecified (CMS/HCC)Start: 11-26-2024 End: 04-54-0649Lrgvsyvlpm complete panel - UrineUrinalysis with reflex microscopic (clean catch) Lab Routine Type 2 diabetes mellitus with diabetic polyneuropathy, 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) Essential hypertension Expected:11/26/2024 (Approximate), Expires: 11/26/2025[facility] HealthcareComment on above:Expected: 11/26/2024 (Approximate), Expires: 11/26/2025Start: 10-08-2024 End: 36-41-9207Vbtbslzh SupportNOMS FNR FMComment on above:ArrivedStart: 10-01-2024 End: 62-55-0635Xdzhdmu encounter procedureNOMS CWM FMComment on above:Arrived Start: 27-25-1308Xjldxlwjyd A1c measurementDiabetes: Hemoglobin H9RXABI HealthcareStart: 09-10-2024 End: 48-83-9616Mibzfeed Yrgddqo2309/10/2024 1:00 PM EST Clinical Support [facility] [address] [facility] [place] [address] Sunny Chery RNNOMS FNR FM Start: 08-24-2024 End: 85-84-3147Eoqdssl encounter rxonggvrq60/23/2024 1:00 PM EST Office Visit [facility] [address] [place] [address] Shaikh Barrera MD [address] [place] [address] [facility] CWM IMStart: 12-19-2024Medicare Annual Wellness (AWV) Medicare Annual Wellness (AWV)[facility] HealthcareStart: 08-20-2024 End: 10-10-0040Nihfxsv encounter bmeosvumb74/19/2024 1:30 PM EST Office Visit [facility] [address] [place] [address] Leander Chanel NP [address] [place] [address] [facility] CWM FMStart: 08-18-2024 End: 21-35-3081Apzdfbs encounter procedureNOMS CWM FMComment on above:Arrived Start: 07-08-2024 End: 78-28-9727Gejixpcg Groinot59/02/2024 2:30 PM EST Clinical Support [facility] CW [facility] [address] [place] [address] [facility] FMStart: 07-01-2024 End: 19-72-4318Wtwhcdb encounter procedureNOMS [facility] FMComment on above:Arrived Start: 07-01-2024 End: 49-40-6204Trsfngwmkf A1c/Hemoglobin.total in BloodHemoglobin A1c Lab Routine Type 2 diabetes mellitus with diabetic polyneuropathy, without long-term current use of insulin ([facility]) Expected: 07/01/2024 (Approximate), Expires: 07/01/2025[facility] Work Phone: Comment on above:Expected: 07/01/2024 (Approximate), Expires: 07/01/2025Start: 14-00-1114Ebgdt-19 Vaccine ( season)Covid- 19 Vaccine ()[facility]: 59-90-8430Shzrziuar vaccinationInfluenza Vaccine (#1)[facility] HealthcareStart: 27-13-8464Oqqbx screening for proteinDiabetes: Urine Protein ScreeningEllett Memorial HospitalStart: 09-02-2023 Advance Directive DiscussionAdvance Directive DiscussionRegional Medical Centertart: 07-90-6828Uhwxo-19 Vaccine ( season)Covid-19 Vaccine ()[facility]: 69-26-3129Leitztyic vaccinationINFLUENZA (Season Ended)[facility]: 01-01-2023 End: 25-28-1200LVY W Auto Differential panel - BloodCBC + DIFF Lab Routine Chronic lymphocytic leukemia (HCC) Expected: 01/01/2023 (Approximate), Expires: 01/01/2023[facility] Work Phone: Comment on above:Expected: 01/01/2023 (Approximate), Expires: 01/01/2023Start: 01-01-2023 End: 64-55-8332Ytplbdopkgjzv metabolic 2000 panel - Serum or PlasmaCOMP METABOLIC PANEL Lab Routine Chronic lymphocytic leukemia (HCC) Expected: 01/01/2023 (Approximate), Expires: 01/01/2023[facility] Work Phone: Comment on above:Expected: 01/01/2023 (Approximate), Expires: 01/01/2023Start: 01-01-2023 End: 56-19-3831Wfciobu dehydrogenase [Enzymatic activity/volume] in Serum or PlasmaLD LACTATE DEHYDRO Lab Routine Chronic lymphocytic leukemia (HCC) Expected: 01/01/2023 (Approximate), Expires: 01/01/2023[facility] Work Phone: Comment on above:Expected: 01/01/2023 (Approximate), Expires: 01/01/2023Start: 55-20-3077ACHXBNI DIRECTIVE DISCUSSIONADVANCE DIRECTIVE DISCUSSIONRegional Medical Centertart: 97-24-1949FDWVRDLWBR ASSESSMENT DEPRESSION ASSESSMENTMercy Health St. Joseph Warren Hospitalrt: 99-81-2710SNUQF-19 Vaccine (2 - Pfizer risk series)COVID-19 Vaccine (2 - Pfizer risk series)[facility]: 27-93-3616JJGRL-19 VACCINE (4 - Booster for Pfizer series) COVID-19 VACCINE (4 - Booster for Pfizer series)[facility]: 11-29-0052ILKJC-19 VACCINE (4 - Booster for Pfizer series)COVID-19 VACCINE (4 - Booster for Pfizer series)[facility]: 46-00-3221XDJXSAI DIRECTIVE DISCUSSIONADVANCE DIRECTIVE DISCUSSIONRegional Medical Centertart: 80-98-0547Gddnu screening for proteinDiabetes: Urine Protein ScreeningMercy Health St. [facility] Hospital: 88-41-8943OHW High Risk: (Elderly (60+) or Population) (1 - 1-dose 75+ series)RSV High Risk: (Elderly (60+) or Population) (1 - 1-dose 75+ series)[facility]: 24-94-0627YHN Vaccine (1 - 1-dose 75+ series)RSV Vaccine (1 - 1-dose 75+ series)[facility]: 96-58-9284TXG Vaccine (1 - 1-dose 60+ series)RSV Vaccine (1 - 1- dose 60+ series)[facility]: 18-35-4931AYKFYOIO VACCINE (1 of 2) SHINGRIX VACCINE (1 of 2)[facility]: 82-03-2180VEXDHAUY VACCINE (1 of 2)SHINGRIX VACCINE (1 of 2)[facility]: 11-25-7974Ehrop microalbumin profileDTAP,TDAP,TD (1 - Tdap)[facility]: 1938Idxutc Vaccines (1 of 2)Zoster Vaccines (1 of 2)[facility]: 00-21-2643Zbkpmda ScreeningAnxiety ScreeningRegional Medical Centertart: 02-05-1958 Depression ScreeningDepression ScreeningRegional Medical Centertart: 02-05-1950 Glaucoma screeningDiabetes: Retinopathy ScreeningUnMarietta Osteopathic Clinic: 09-47-3883Ctujkl wellness visitWelcome to Medicare Visit [facility]: 10-00-5364Jtrtggjprj A1c measurement Diabetes: Hemoglobin D4TDglntonzexMercy Health St. [facility]: 19-64-7462Pcrmi panelLipid PanelUnKindred Hospital [facility] End: 95-51-7085AJN W Auto Differential panel - BloodCBC + DIFF Lab Routine Chronic lymphocytic leukemia (HCC) Every 6 months for 3 Occurrences starting 08/08/2023 until 08/07/2024, 1 [facility] Work Phone: Comment on above:Every 6 months for 3 Occurrences starting 08/08/2023 until 08/07/2024, 1 completedCBC W Auto Differential panel - BloodCBC + DIFF Lab Routine Chronic lymphocytic leukemia (HCC) 08/08/2023 3:21 PM [facility] Work Phone: End: 56-47-8822Iqaafbggnirwr metabolic 2000 panel - Serum or PlasmaCOMP METABOLIC PANEL Lab Routine Chronic lymphocytic leukemia (HCC) Every 6 months for 3 Occurrences starting 08/08/2023 until 08/07/2024, 1 [facility] Work Phone: Comment on above:Every 6 months for 3 Occurrences starting 08/08/2023 until 08/07/2024, 1 completedComprehensive metabolic 2000 panel - Serum or PlasmaSamaritan Hospital End: 75-16-5183Pikfahx dehydrogenase [Enzymatic activity/volume] in Serum or PlasmaLD LACTATE DEHYDRO Lab Routine Chronic lymphocytic leukemia (HCC) Every 6 months for 3 Occurrences starting 08/08/2023 until 08/07/2024, 1 completed [facility] Work Phone: Comment on above:Every 6 months for 3 Occurrences starting 08/08/2023 until 08/07/2024, 1 completedMicroalbumin [Mass/volume] in UrineSamaritan HospitalPatient referralMarietta Memorial Hospital Work Phone: End: 20-21-5758Idctz [Mass/volume] in Serum or PlasmaURIC ACID BLOOD Lab Routine Chronic lymphocytic leukemia (HCC) Every 6 months for 3 Occurrences starting 08/08/2023 until 08/07/2024, 1 [facility] Work Phone: Comment on above:Every 6 months for 3 Occurrences starting 08/08/2023 until 08/07/2024, 1 completed End: 31-03-3741VT HAND GENERAL 3V PA/LAT/OBL LEFTXR HAND GENERAL 3V PA/LAT/OBL LEFT Radiology Routine Pain 1 Occurrences starting 12/03/2022 until 01/02/2024 [facility] Work Phone: comment on above:1 Occurrences starting 12/03/2022 until 01/02/2024 End: 01-95-4819ML HAND GENERAL 3V PA/LAT/OBL RIGHTXR HAND GENERAL 3V PA/LAT/OBL RIGHT Radiology Routine Pain 1 Occurrences starting 12/03/2022 until 01/02/2024 [facility] Work Phone: comment on above:1 Occurrences starting 12/03/2022 until 01/02/2024[facility] Immunizations Immunization DateImmunizationNotesCare MbwkdmuoKeshgqpq80-35-5627felgyuxmq, high dose seasonal, preservative-freeAminasa Crystal PURI Work Phone: [facility] HospitalWyuimrdmzo87-90-7506sfaumopmk virus vaccine, unspecified formulationBrittany Chanel [employer] Work Phone: [facility] HospitalWcuujtfjvl16-62-5222Eyblnlsjp, High-dose Seasonal, Quadrivalent, Preservative FreeBrittany Chanel [employer] Work Phone: [facility] HospitalKnorsceypw49-40-3170npyjvjixx virus vaccine, unspecified formulationBrittany Chanel [employer]ER Work Phone: [facility] HospitalQrkfcvizmn53-99-9044pqlktdvolu skin test; purified protein derivative solution, intradermalBrittany Chanel [employer]ER Work Phone: [facility] HospitalRmonjghodq47-37-5663rexshvwhzt skin test; purified protein derivative solution, intradermalBrittany Chanel [employer]ER Work Phone: [facility] HospitalZcmcufzjpy87-99-4909ejlsreq toxoid, reduced diphtheria toxoid, and acellular pertussis vaccine, adsorbedBrittany Chanel [employer] Work Phone: [facility] HospitalQoiwrnixpk96-17-2082Rxnwsunmb, High-dose Seasonal, Quadrivalent, Preservative FreeBrittany Chanel [employer]ER Work Phone: [facility] HospitalUiqwxrnnoy79-34-2117Xnvmqg COVID-19 vaccine, bivalent, age 12 years and older (30 mcg/0.3 mL)Todd Vallecillo MD Work Phone: [facility]01-12-2022COVID-[address] [facility] Medical Centerirnatwendy (Pfizer)Shaikh Holly CARIAS Work Phone: [facility]09-16-2021Influenza, High-dose Seasonal, Quadrivalent, Preservative FreeBrittany Chanel [employer] Work Phone: [facility] HospitalJccitaxrsq79-20-1927GTVQX-02 vaccine, age 12+ yr (PFIZER-BIONTECH - PURPLE [facility])Frederick Zapata MD Work Phone: [facility] HospitalGdsyxl34-58-8085MRNAJ-57 vaccine, age 12+ yr (PFIZER-BIONTECH - PURPLE TOP)Frederick Zapata MD Work Phone: [facility] HospitalNexgzw03-54-0942zfaoxifxm, injectable, quadrivalent, preservative Deven Zapata MD Work Phone: [facility] HospitalWzdnsa29-08-9880Vtdfcjiu trivalent influenza vaccine, adjuvanted, preservative Deven Zapata MD Work Phone: [facility] HospitalMvbojz07-36-3398ufopadzpk, high dose seasonal, preservative-freeFrederick Zapata MD Work Phone: [facility] HospitalYfcjdt12-58-5103yloeedqcn, injectable, quadrivalent, contains preservativeFrederick Zapata MD Work Phone: [facility] HospitalNpvtjh57-16-7835opesnldvg, high dose seasonal, preservative-freeFrederick Zapata MD Work Phone: [address] [place], [place] [address]Mjguky82-19-6576lvkcmeibuhul polysaccharide vaccine, 23 valJana Zapata MD Work Phone: [facility] HospitalEkekcj47-12-6302baoxsinftrmt polysaccharide vaccine, 23 Tamir Zapata MD Work Phone: [facility] HospitalBvihrv66-55-4767bovetaobsfzm conjugate vaccine, 13 Tamir Zapata MD Work Phone: [facility] HospitalJdaeqe26-00-6604rrxjasqs influenza, intradermal, preservative freeBrittany Chanel [employer]ER Work Phone: [facility] HospitalFthpyyybod74-70-8101spwfenwjs virus vaccine, whole virusFrederick Zapata MD Work Phone: [facility] HospitalPooyxx61-90-5926fjayvaxvd virus vaccine, xavier Zapata MD Work Phone: [facility] HospitalLskros43-59-0074dtdbqnttq virus vaccine, whole virusFrederick Zapata MD Work Phone: [facility] HospitalWobzav98-52-9583qwvwtyujk virus vaccine, whole virusFrederick Zapata MD Work Phone: [facility] HospitalZnemtl51-78-9844ixnyaopil virus vaccine, whole virusFrederick Zapata MD Work Phone: [facility] Payers DatePayer CategoryPayerPolicy [id number] Health InsuranceUNITED HEALTHCARE [id number] [id number] 2024MedicareDEVOTED MEDICARE DEVOTED [place]ALTH [place] HMO [id number] 2023-Present [phone] [address] [place] [id number] HMO [id number] 2024Medicare (Managed Care) [id number] [id number]921.73727-22-2138Nhxg-qcr [id number]-[id number]dbtvdEEQTNW BLUE CROSS AND BLUE SHIELD ANTHEM MEDIBLUE ACCESS [id number] 2019-Present [phone] [place] [address] [id number] [id number]71.58116-13-7806TgsilndKTH862H0574640-80-8426 [id number] 2.16.840.1.057885.3.579.[id number] 2.16840.1.581447.3.579.[id number] 2.16840.1.670055.3.579.[id number] 2.840.1.006269.3.579.[id number] 2.840.1.269718.3.579.[id number] 2.16840.1.839528.3.57[id number] 2.840.1.133692.3.57[id number] 2.16840.1.211758.3.579.[id number] 2.840.1.619250.3.57[id number] 2.16840.1.687064.3.579.[id number] 2.16840.1.942824.3.579.2.4[id number] 2.16840.1.088319.3.579.2.466[id number] 2.16840.1.476414.3.579.[id number] 2.0.1.179011.3.579.2.133828-27-5879Xqsndbb7126316 2.16840.1.550099.3.579.2.253350-86-6847Hkfhlzh9854380 2.0.1.902654.3.57[id number] 2.0.1.864144.3.579.2.[id number] 2.0.1.297940.3.579.2.903861-35-9732Cyfllqn0848985 2.0.1.404394.3.579.2.199659-15-6782Yneaxqj1431541 2..1.814209.3.579.2.351951-40-7434Kxfqxvd5398104 2.0.1.110398.3.579.2.094978-00-4154Vbjqsrq1005850 2.0.1.480208.3.579.2.993380-17-4974Fdffozj9366744 2..1.947933.3.5[id number] 2..1.407981.19Unknown HCAP/HFA/FAP [id number]-nniw-5m99-[id number] 2.0.1.200181.3.579.2.531 Social History DateTypeDetailFaveterans memorial hospitalStart: 05-15-2013 End: 82-65-8980Udesxzr smoking status NHISEx-smokerRegional Medical Centertart: 09-02-1953 End: 00-63-5791Ddyufml of tobacco useCurrent smokerRegional Medical Centertart: 09-02-1953 End: 43-59-7824Ujbyrqt of tobacco useCigarette SmokerRegional Medical Centertart: 01-01-2022 End: 57-65-3220Crgzmiq intakeCurrent non-drinker of alcohol (finding)[facility]: 63-39-5889Yiq Assigned At BirthNot on fileRegional Medical Centertart: 12-22-2021 End: 94-83-6807Gwvnixsg to SARS-CoV-2 (event)Not sureRegional Medical Centertart: 21-63-2334Krq [facility]tart: 08-08-2023 End: 41-86-9347Rba [facility]: 05-15-2013 End: 49-97-4887Wtpyhzrzxe smoked current (pack per day) - Eoybngsd9Abfjlvqei ClinicStart: 05-15-2013 End: 08-95-8085Fqanhrl use and exposureSmokeless tobacco non-userRegional Medical Centertart: 04-40-1312Aaajh Depression Screening Jgjxdsadkb2Dumochktf Clinic Start: 06-13-2018 End: 37-94-1549Vzzunnb smoking status NHISNever smoked tobaccoTIMPANOGOS REGIONAL [facility] Healthcare Start: 11-12-2023 End: 01-76-2373Cudilbtpw beverage intakeLifetime non-drinker (finding)[facility] HealthcareWithin the last year, have you been afraid of your partner or ex-partner?NoNOMS HealthcareDo you belong to any clubs or organizations such as buddhist groups, unions, fraternal or athletic groups, or school groups?YesNOMS HealthcareAre you now , , , , never or living with a partner?WidowedNOMS HealthcareHow often to you have a drink containing alcohol?NeverNOMS HealthcareHow hard is it for you to pay for the very basics like food, housing, medical care, and heatingHardNOMS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 examination, counseling and educating the pat ient/family/caregiver, ordering medications, tests, or procedures, independently interpreting results (not separately reported), communicating results to the patient/family/caregiver, and care coordination (not separately reported). Frederick Zapata MD, CPE Hematology and Oncology Services Provided at: [place], [place] Scribe Attestation: This note was scribed [...] under my direction. CC: Dima Mo MD [address] [facility] [id number] Rodríguez Wheat II, MD, MD [address] [facility] [address] [facility] [address] Nam Santamariah documented in this encounterW[facility]10-13-2023 Evaluation note* Encounter Date Diagnosis Assessment Notes Treatment Notes Treatment Clinical Notes Jun, Allergic reaction to drug, initi al encounter (ICD-10 - T78.40XA) General allergic reactions home care material was printed Stop the antibiotic medication that was prescribed. Continue to use antibiotic ointment to the wounds. Keep the wounds clean and dry. You may apply cool compresses to your eyes for comfort. Go to theER for any worsening of symptoms or increase of erythema to the right lower leg. Go to the ER for any more swelling of the eyes or difficulty breathing. Call your engraver rubber first thing Saturday morning to notify them that you stop the antibiotic and request further instruction. Jun,eriorbital swelling (ICD-10 - H57.89) Jun,Encounter for post surgical wound check (ICD-10 - Z48.89) [employer] Other 01-16-2023 Evaluation note* Encounter Date Diagnosis Assessment Notes Treatment Notes Treatment Clinical Notes Sep, Bilateral impacted cerumen (ICD- 10 - H61.23) Cerumen impaction home care material was printed Drink plenty fluids, get plenty of rest. Continue home medications as prescribed. Follow-up with your abalone processor for your hearing test as scheduled. Go to the ER for worsening symptoms or concerns [employer] Other 05-02-2022 History of Present illness Narrative* [...] Ht 163.8 cm (5' 4.49 ) Wt 73.4 kg (161 lb 12.8 oz) SpO2 97% BMI [...] labs same day Frederick Zapata MD, CPE [place], [place] Nam Lugo documented in this encounterW[facility]01-10-2022 NoteThe [facility]03-11-2021 NoteThe [facility] Evaluation note* Diagnosis Chronic lymphocytic leukemia (HCC)- Primary Chronic lymphoid leukemia, without mention of having achieved remission documented in this encounter [facility] HospitalEvaluation noteNo assessment information availableMemorial Health System Work Phone: Evaluation note* Diagnosis Pain- Primary Generalized pain documented in this encounter [facility]* Diagnosis Chronic lymphocytic leukemia (HCC)- Primary Chronic lymphoid leukemia, without mention of having achieved remission documented in this encounter [facility]* Diagnosis Rash- Primary Rash and other [...] diabetes mellitus (CMS/HCC) documented in this encounter [facility]* Diagnosis Rash- Primary Rash and other [...] Atherosclerosis of aorta documented in this encounter [facility] HealthcareEvaluation note* Diagnosis Rash- Primary Rash [...] diabetes mellitus (CMS/HCC) documented in this encounter [facility] HealthcareEvaluation note* Diagnosis Rash- Primary Rash [...] of insulin (CMS/HCC) documented in this encounter [facility] HealthcareEvaluation note* Diagnosis Rash- Primary Rash [...] (CMS/HCC) Pure hypercholesterolemia documented in this encounter [facility]* Diagnosis Chronic lymphocytic leukemia (HCC)- Primary Chronic lymphoid leukemia, without mention of having achieved remission [facility] Rash- Primary Rash and [...] insulin (CMS/HCC)- Primary documented in this encounter [facility] HealthcareEvaluation [facility]* Diagnosis Type 2 diabetes [...] diabetes mellitus (CMS/HCC) documented in this encounter [facility] HealthcareEvaluation note* Diagnosis Rash- Primary Rash [...] in this encounter [facility]* Diagnosis Orthostatic hypotension- Primary Mitral valve prolapse Mitral valve disorders Shortness of breath Dizziness Dizziness and giddiness BMI 27.0-27.9,adult Former smoker Personal history of tobacco use, presenting hazards to health Nonrheumatic mitral valve regurgitation Diabetes mellitus type II, non insulin dependent (Multi) Type II or unspecified type diabetes mellitus without mention of complication, not stated as uncontrolled documented in this encounter [facility] Work Phone: Evaluation note* Diagnosis Rash- [...] mitral valve regurgitation documented in this encounter [facility] HealthcareEvaluation note* Diagnosis Rash- Primary Rash [...] of insulin (CMS/HCC) documented in this encounter [facility] HealthcareEvaluation note* Diagnosis Shortness of breath- [...] hazards to health documented in this encounter [facility] Work Phone: Evaluation note* Diagnosis Rash- [...] Essential hypertension, benign documented in this encounter [facility] HealthcareEvaluation note* Diagnosis Rash- Primary Rash [...] Admit Date Protrusion of lumbar intervertebral disc acuteSeptember 2024 1:16pm [facility] Work Phone: History general Narrative - Reported* Type Description Date Medical History diabetes Medical HistoryhypertensionMedical HistoryhypercholesterolemiaMedical History VertigoMedical HistoryCOPDMedical HistoryStoma ReversalSurgical History GallbladderSurgical HistoryKidney StonesSurgical HistoryAppendixSurgical History Hernia RepairSurgical HistoryTonsilsSurgical HistoryLeft Carpal/Cubital/[place] Canal ReleasSurgical HistoryStoma ReversalHospitalization HistorySee [facility] Other History general Narrative - Reported* Type Description Date Medical History diabetes Medical HistoryhypertensionMedical HistoryhypercholesterolemiaMedical History VertigoMedical HistoryCOPDMedical HistoryStoma ReversalSurgical History GallbladderSurgical HistoryKidney StonesSurgical HistoryAppendixSurgical History Hernia RepairSurgical HistoryTonsilsSurgical HistoryLeft Carpal/Cubital/Guyon Canal ReleasSurgical HistoryStoma ReversalSurgical HistorySKIN CANCER REMOVALS, FOREHEAD, AND BOTH LEGSHospitalization HistorySee [facility] Other Reason for referral (narrative)* Diagnostic Procedure Only (Routine) - AuthorizedSpecialtyDiagnoses / ProceduresReferred By Contact Referred To ContactXR IMAGING Diagnoses Pain Procedures XR HAND GENERAL 3V PA/LAT/OBL RIGHT RADEX HAND MINIMUM 3 VIEWS Joshua Su PA-C [address] [place] [address] Xr Imaging Referral IDStatusReasonStart DateExpiration DateVisits RequestedVisits [id number] Auto-Generated Referral * Diagnostic Procedure Only (Routine) - Pending ReviewSpecialtyDiagnoses / ProceduresReferred By ContactReferred To ContactXR IMAGING Diagnoses Pain Procedures XR HAND GENERAL 3V PA/LAT/OBL LEFT RADEX HAND MINIMUM 3 VIEWS Joshua Su PA-C [address] [place] [address] Xr Imaging Referral IDStatusReasonStart DateExpiration DateVisits RequestedVisits [id number] Review Auto-Generated Referral [facility] for referral (narrative)No reason for referral information availableMarietta [facility] Hospital Work Phone: Summary Purpose Family History Relationship Condition Age at Onset Recorded Date/T mitch father Unknown family memberDeceasedUnknownmotherDeceasedUnknownHeart diseaseUnknown Relationship Condition Age at Onset Recorded Date/T mitch father Unknown Heart diseaseUnknownfamily memberDeceasedUnknownmotherDeceasedUnknownpaternal grandmotherCerebrovascular accident (CVA)Unknown Advance Directives Advance Directive Response Recorded Date/ Time Advance Directives No February 25 3:54pm Chief Complaint and Reason for Visit Chief Complaint N50.82 Chief Complaint Admit Date [facility] ER F/U HERNIATED DISC May 1:16pm Reason for Visit Admit Date Protrusion of lumbar intervertebral disc May 25, 2025 1:16pm Chief Complaint Admit Date [facility] ER F/U HERNIATED DISC May 1:16pm 3m [...] lumbar intervertebral disc July 01, 2025 1:50pm Additional Source Comments (unrecognized sect ion and content) No Status Records FoundNo Status Records FoundNo Status Records FoundNo Status Records FoundNo Status Records FoundNo Status Records FoundNo Status Records Found INFORMATION SOURCE (unrecogn ized section and content) DATE CREATED AUTHOR 10/12/2021 [facility] DATE CREATED AUTHOR AUTHOR'S ORGANIZ ATION 06/02/2022 [facility] DATE CREATED AUTHOR AUTHOR'S ORGANIZ ATION 08/04/2022 [facility] DATE CREATED AUTHOR AUTHOR'S ORGANIZ ATION 08/13/2024 [facility] DATE CREATED AUTHOR AUTHOR'S ORGANIZ ATION 01/28/2025 [facility] DATE CREATED AUTHOR AUTHOR'S ORGANIZ ATION 02/13/2025 [facility] DATE CREATED AUTHOR AUTHOR'S ORGANIZ ATION 04/02/2025 [facility] EPIC Source Comments (unrecognize d section and content) In the event this informatio n is protected by the Federal Confidentiality of Alcohol and Drug Abuse Patient Records regulations: The Federal rules restrict any use of the information to criminally investigate or prosecute any alcohol or drug abuse patient.[facility] HospitalIn the event this information is protected by the Federal Confidentiality of Alcohol and Drug Abuse Patient Records regulations: The Federal rules restrict any use of the information to criminally investigate or prosecute any alcohol or drug abuse patient.[facility] HospitalIn the event this information is protected by the Federal Confidentiality of Alcohol and Drug Abuse Patient Records regulations: The Federal rules restrict any use of the information to criminally investigate or prosecute any alcohol or drug abuse patient.[facility] HospitalIn the event this information is protected by the Federal Confidentiality of Alcohol and Drug Abuse Patient Records regulations: The Federal rules restrict any use of the information to criminally investigate or prosecute any alcohol or drug abuse patient.[facility] Reason for Visit (unrecogniz ed section and content) ReasonCommentsLeukemiaReasonOnset DateCommentsMed Yheqqv864ReasonComments DiabetesReasonOnset DateCommentsMed Kdwqui214ReasonOnset DateCommentsMed Lyjgnu094ReasonOnset DateCommentsMed Fppvus3604/30/2024easonOnset Date CommentsMed Zmyoze6909/07/2024ReasonCommentsNew Patient VisitMitral valve prolapse and dizzinessSpecialtyDiagnoses / ProceduresReferred By ContactReferred To Contact Diagnoses Dizziness Procedures ECG 12 Lead Todd Vallecillo MD [address] [place] [address] 2, [place] [id number] Phone: tel: fax: Referral IDStatusReasonStart DateExpiration DateVisits RequestedVisits [id number]/28/20254/28/586077OhexucWxscommsAsorqn-wzIheiqq up Stress resultsSpecialtyDiagnoses / ProceduresReferred By ContactReferred To ContactCardiology Diagnoses Mitral valve prolapse Procedures Follow Up In Cardiology Todd Vallecillo MD [address] [facility] [address], [place] [id number] Phone: tel: fax: Todd Vallecillo MD [address] [facility] [address], [place] [id number] Phone: tel: fax: Referral IDStatusReasonStart DateExpiration DateVisits RequestedVisits [id number]/28/20254/28/202611 Care Teams (unrecognized sec tion and content) Team Status: Active Member Role Status Dates Shaikh Holly MD Primary Care Provider Active Team Status: Inactive Member Role Status Dates Shaikh Holly MD Primary Care Provider Active Start: May 25, 2025 End: May 25, 2025Donny Mays ProviderActiveStart: May 25, 2025 End: May 25, 2025Team MemberRelationshipSpecialtyStart DateEnd Date Rodríguez Wheat II PCP - GeneralInternal Medicine05/06/13 Team Status: Inactive Member Role Status Dates Shaikh Holly MD Primary Care Provider, Attending Pr ovider Active Team MemberRelationshipSpecialtyStart DateEnd Date Rodríguez Wheat II PCP - [facility]05/06/13Team MemberRelationshipSpecialtyStart Date End Date Rodríguez Wheat II, MD PCP - [facility]05/06/13Team MemberRelationshipSpecialtyStart Date End Date Shaikh Barrera MD [address] [place] [address] PCP - [facility]09/02/23 Low Beyer MD [address] [place] [address] PCP - [facility]04/07/24 Leander Chanel NP [address] [place] [address] Nurse [facility]Federal [facility]04/07/24 Brandi Willett LPN Licensed Practical NurseFederal Medical Center, [facility]05/15/24Team MemberRelationshipSpecialty Start DateEnd Date Shaikh Barrera MD [address] [place] [address] PCP - [facility]09/02/23 Low Beyer MD [address] [place] [address] PCP - [facility]04/07/24 Leander Chanel NP [address] [place] [address] Nurse PractitionerFamily Medicine04/07/24 Brandi Willett LPN Licensed Practical NurseFamily Medicine05/15/24Team MemberRelationshipSpecialty Start DateEnd Date Shaikh Barrera MD [address] [place] [address] PCP - [facility]09/02/23 Low Beyer MD [address] [place] [address] PCP - GeneralFamily Medicine04/07/24 Leander Chanel NP [address] [place] [address] Nurse Practitionermily Medicine04/07/24 Brandi Willett LPN Licensed Practical NurseFamily Medicine05/15/24Team MemberRelationshipSpecialty Start DateEnd Date Shaikh Barrera MD [address] [place] [address] PCP - [facility]09/02/23 Low Beyer MD [address] [place] [address] PCP - GeneralFamily Medicine04/07/24 Leander Chanel NP [address] [place] [address] Nurse PractitionerFamily Medicine04/07/24 Brandi Willett LPN Licensed Practical NurseFamily Medicine05/15/24Team MemberRelationshipSpecialty Start DateEnd Date Shaikh Barrera MD [address] [place] [address] PCP - [facility]09/02/2411 Low Beyer MD [address] [place] [address] PCP - [facility]Federal [facility]04/07/24 Leander Chanel NP [address] [place] [address] Nurse PractitionerFederal [facility], [facility]04/07/24 Rosa Nguyen MA [facility]07/06/24Team MemberRelationshipSpecialtyStart DateEnd Date Shaikh Barrera MD [address] [place] [address] PCP - [facility]09/02/2411 Low Beyer MD [address] [place] [address] PCP - [facility]Federal [facility]04/07/24 Leander Chanel NP [address] [place] [address] Nurse Pract[facility]erFederal [facility]04/07/24 Rosa Nguyen MA [facility]07/06/24Team MemberRelationshipSpecialtyStart DateEnd Date Shaikh Barrera MD [address] [place] [address] PCP - [facility]09/02/2411 Low Beyer MD [address] [place] [address] PCP - Generalmily Medicine04/07/24 Leander Chanel NP [address] [place] [address] Nurse Pract[facility]erFederal [facility]04/07/24 Rosa Nguyen MA [facility]07/06/24Team MemberRelationshipSpecialtyStart DateEnd Date Shaikh Barrera MD [address] [place] [address] PCP - [facility]09/02/2411 Low Beyer MD [address] [place] [address] PCP - [facility] Centerly [facility]04/07/24 Leander Chanel, KHUSHI [address] [place] [address] Nurse PractitionerFederal [facility]04/07/24 Rosa Nguyen MA [facility]07/06/24Team MemberRelationshipSpecialtyStart DateEnd Date Shaikh Barrera MD [address] [place] [address] PCP - GeneralPrimary Care08/06/24Team MemberRelationshipSpecialtyStart DateEnd Date Shaikh Barrera MD [address] [place] [address] PCP - [facility]/ Low Beyer MD [address] [place] [address] PCP - GeneralFamily Medicine04/07/24 Leander Chanel NP [address] [place] [address] Nurse PractitionerFamily Medicine04/07/24 Rosa Nguyen [facility]07/06/24Team MemberRelationshipSpecialtyStart DateEnd Date Shaikh Barrera MD [address] [place] [address] PCP - [facility]09/02/23 Low Beyer MD [address] [place] [address] PCP - GeneralFamily Medicine04/07/24 Dang Rios LPN Licensed Practical Nursemily Medicine01/02/24 Leander Chanel NP [address] [place] [address] Nurse Pract[facility]erFederal [facility]04/07/24Team MemberRelationshipSpecialtyStart DateEnd Date Shaikh Barrera MD [address] [place] [address] PCP - [facility]09/02/23 Low Beyer MD [address] [place] [address] PCP - GeneralFamily Medicine04/07/24 Dang Rios LPN Licensed Practical Nursemily Medicine01/02/24 Leander Chanel, KHUSHI [address] [place] [address] Nurse PractitionerFederal [facility]04/07/24Team MemberRelationshipSpecialtyStart DateEnd Date Low Beyer MD [address] [place] [address] PCP - GeneralFamily Medicine04/07/24 Leander Chanel, KHUSHI [address] [place] [address] Nurse PractitionerFamily Medicine04/07/24 Rosa Nguyen MA Family Spaohwvw71/4/24Team MemberRelationshipSpecialtyStart DateEnd Date Low Beyer MD [address] [place] [address] PCP - GeneralFamily Medicine04/07/24 Leander Chanel, KHUSHI [address] [place] [address] Nurse PractitionerFamily Medicine04/07/24 Rosa Nguyen MA Family Matuqbpt21/4/24Team MemberRelationshipSpecialtyStart DateEnd Date Low Beyer MD [address] [place] [address] PCP - GeneralFamily Medicine04/07/24 Leander Chanel, KHUSHI [address] [place] [address] Nurse PractitionerPella Regional Health Centerly Medicine04/07/24 Rosa Nguyen MA [facility]07/06/24Team MemberRelationshipSpecialtyStart DateEnd Date Low Beyer MD [address] [place] [address] PCP - Generalmi Medicine04/07/24 Leander Chanel, KHUSHI [address] [place] [address] Nurse PractitionerFederal [facility]04/07/24 Rosa Nguyen MA [facility]07/06/24Team MemberRelationshipSpecialtyStart DateEnd Date Low Beyer MD [address] [place] [address] PCP - Generalmi Medicine04/07/24 Leander Chanel, KHUSHI [address] [place] [address] Nurse PractitionerFederal [facility]04/07/24 Rosa Nguyen MA [facility]07/06/24Team MemberRelationshipSpecialtyStart DateEnd Date Low Beyer MD [address] [place] [address] PCP - [facility]Federal [facility]04/07/24 Leander Chanel NP [address] [place] [address] Nurse PractitionerWell[facility]04/07/24 Rosa Nguyen MA [facility]07/06/24Team MemberRelationshipSpecialtyStart DateEnd Date Low Beyer MD [address] [place] [address] PCP - [facility]04/07/24 Leander Chanel NP [address] [place] [address] Nurse PractitionerWell[facility]04/07/24 Rosa Nguyen MA [facility]07/06/24Team MemberRelationshipSpecialtyStart DateEnd Date Mireya Rojas, CHEMICAL TESTER-PRINT PROJECT MANAGER [address] [place] [address] PCP - General12/17/24Team MemberRelationshipSpecialtyStart DateEnd Date Low Beyer MD [address] [place] [address] PCP - [facility]04/07/24 Leander Chanel NP [address] [place] [address] Nurse PractitionerWell[facility]04/07/24 Rosa Nguyen [facility]07/06/24Team MemberRelationshipSpecialtyStart DateEnd Date Low Beyer MD [address] [place] [address] PCP - [facility]04/07/24 Leander Chanel, KHUSHI [address] [place] [address] Nurse PractitionerWell[facility]04/07/24 [facility]07/06/24Team MemberRelationshipSpecialtyStart DateEnd Date Low Beyer MD [address] [place] [address] PCP - [facility]04/07/24 Leander Chanel NP [address] [place] [address] Nurse PractitionerWell[facility]04/07/24 Rosa [facility]07/06/24Team MemberRelationshipSpecialtyStart DateEnd Date Low Beyer MD [address] [place] [address] PCP - [facility]04/07/24 Leander Chanel NP [address] [place] [address] Nurse PractitionerWell[facility]04/07/24 Rosa NguyenCon[facility]07/06/24Team MemberRelationshipSpecialtyStart DateEnd Date Mireya Rojas, CHEMICAL TESTER-PRINT PROJECT MANAGER [address] [place] [address] PCP - General12/17/24Team MemberRelationshipSpecialtyStart DateEnd Date Low Beyer MD [address] [place] [address] PCP - GeneralFamily Medicine04/07/24 Leander Chanel NP [address] [place] [address] Nurse PractitionerFederal [facility]04/07/24 Rosa Nguyen MA [address] [place] [address] [facility]07/06/24Team MemberRelationshipSpecialtyStart DateEnd Date Low Beyer MD [address] [place] [address] PCP - Generalmi Medicine04/07/24 Leander Chanel NP [address] [place] [address] Nurse PractitionerWell[facility]04/07/24 Rosa Nguyen MA [address] [place] [address] [facility]07/06/24Team MemberRelationshipSpecialtyStart DateEnd Date Low Beyer MD [address] [place] [address] PCP - GeneralWell[facility]04/07/24 Leander Chanel NP [address] [place] [address] Nurse PractitionerWell[facility]04/07/24 Rosa Nguyen MA [address] [place] [address] [facility]07/06/24Team MemberRelationshipSpecialtyStart DateEnd Date Low Beyer MD [address] [place] [address] PCP - [facility]04/07/24 Leander Chanel NP [address] [place] [address] Nurse PractitionerWell[facility]04/07/24 Rosa Nguyen [place] [address] [place] [address] [facility]07/06/24Te MemberRelationshipSpecialtyStart DateEnd Date Low Beyer MD [address] [place] [address] [facility] - [facility]04/07/24 Leander Chanel, KHUSHI [address] [place] [address] Nurse PractitionerWell[facility]04/07/24 Rosa Nguyen [place] [address] [place] [address] [facility]07/06/24Te MemberRelationshipSpecialtyStart DateEnd Date Shaikh Barrera MD [address] [place] [address] PCP - [facility]09/02/2411 Low Beyer MD [address] [place] [address] PCP - [facility]04/07/24 Leander Chanel NP [address] [place] [address] Nurse PractitionerFamily Medicine04/07/24 Rosa Nguyen MA [address] [place] [address] Family Fwsiaaxe65/4/248Team MemberRelationshipSpecialtyStart DateEnd Date Shaikh Barrera MD [address] [place] [address] PCP - [facility]09/02/2411 Shaikh Barrera MD [address] [address] PCP - GeneralInternal Medicine Low Beyer MD PCP - GeneralFamily Medicine04/07/24 Dang Rios LPN Licensed Practical NurseFamily Medicine Leander Chanel, KHUSHI Nurse PractitionerFamily Medicine04/07/24 Brandi Willett LPN [address] [place] [address] Licensed Practical NurseFamily Medicine05/15/2411 Rosa Nguyen MA [address] [place] [address] [facility] Team Status: Active Member Role/Relationship Status Dates Faye Garcia DO Primary Care Provider Active Team Status: Inactive Member Role/Relationship Status Dates Shaikh Holly MD Primary Care Provider Active Start: May 25, 2025 End: May 25, 2025Riojudyflakito Donny Garcia ProviderActiveStart: May 25, 2025 End: May 25, 2025 Team Status: Inactive Member Role/Relationship Status Dates Faye Garcia DO Primary Care Provider Active S tart: July 01, 2025 End: July 01, 2025Faye Donny Garcia ProviderActiveStart: July 01, 2025 End: July 01, 2025 Goals (unrecognized section and content) Goals may be documented in a n alternate sectionNo InformationNo InformationGoals may be documented in an alternate sectionGoals may be documented in an alternate section [...] BE BASED ON THE PRIMARY CLINICAL RECORDS. [employer] provides no warranty or guarantee of the accuracy or completeness of information in this document.
--- NOTE | 2025-07-15 13:55 | PM.CN ---
Consult Note: HPI Data of Consult Patient: known to practice within the last 3 years Requesting Physician: Samia Joyner NP Primary Care Provider: Faye Garcia DO Consult Narrative Reason for consult: low back pain Narrative: Eitan Hurtado a pleasant 85 year old male presents for evaluation and management of low back pain with radiculopathy secondary to lumbar disc bulge, lumbar stenosis, and lumbar facet arthropathy. Since last visit patient has been engaged in aquatherapy and PT with benefit. Patient does not recall his previous appointment here on 06/03/25. Patient unable to describe pain or rate pain, noting just uncomfortable with random onset. utilizing gabapentin 300mg BID. cc:: CC: Samia Joyner NP Review of Systems ROS Musculoskeletal Reports: back pain and extremity pain PFSH PFSH Medical History CLL (chronic lymphocytic leukemia) ?C91.10 - Chronic lymphocytic leukemia of B-cell type not having achieved remission (ICD-10) Social History Smoking status: Never smoker Little interest or pleasure in doing things: not at all Feeling down, depressed, or hopeless: not at all Meds Home Medications and Allergies Home Medications ?Medication ?Instructions ?Recorded ?Confirmed ?Type gabapentin 300 mg capsule 300 mg PO Q12H 10/24/23 02/21/24 History methotrexate sodium 2.5 mg tablet 2.5 mg PO .weekly 10/24/23 02/21/24 History nirmatrelvir 300 mg (150 mg See Rx Instructions PO .COMPLEX 10/24/23 Rx x2)-ritonavir 100 mg tablet,dose #30 ea pack (Paxlovid) sitagliptin phosphate 100 mg 100 mg PO DAILY 10/24/23 02/21/24 History tablet (Januvia) baclofen 5 mg tablet 5 mg PO TID 12/03/23 02/21/24 History glipizide 10 mg tablet 10 mg PO DAILY 12/03/23 02/21/24 History multivitamin-ferrous 1 tab PO DAILY 12/03/23 02/21/24 History fumarate-folic acid 18 mg-400 mcg tablet (Centrum Complete) simvastatin 40 mg tablet 40 mg PO DAILY 12/03/23 02/21/24 History folic acid 1 mg tablet 1 mg PO DAILY 02/21/24 02/21/24 History melatonin 10 mg capsule 10 mg PO DAILY 02/21/24 02/21/24 History methotrexate sodium 2.5 mg tablet 2.5 mg PO QWEEK 02/21/24 02/21/24 History Allergies Allergy/AdvReac Type Severity Reaction Status Date / Time codeine AdvReac Intermediate hallucinati Verified 05/15/25 21:53 ons morphine AdvReac Intermediate hallucinati Verified 05/15/25 21:53 ons Exam Constitutional Documenting provider has reviewed patient's vital signs: yes Common normals: no apparent distress and alert Other: appears confused, unable to confidently answer intake questions patient alert to self, time, and place HENMT Common normals: normocephalic, hearing grossly normal bilaterally and moist oral mucous membranes Head and scalp: normocephalic Eye Common normals: PERRL Pupil: PERRL Neck & C-Spine Common normals: full ROM General: normal visual inspection Chest Common normals: inspection of chest normal Respiratory Common normals: normal respiratory effort, no retractions and no use of accessory muscles Back & Pelvis Lumbar spine/lower back: ROM limited, pain with ROM, lumbar spinal tenderness, straight leg raise positive right and straight leg raise positive left Other: strength 5/5 in BLE radiculopathy noted to bilateral L5/S1 Neuro Common normals: oriented x3 Sensorium/orientation: alert Psych Common normals: mental status grossly normal, thought process normal, cooperative, affect normal, speech normal and activity/motor behavior normal Speech: normal speech Thought process: normal thought process Results Additional Findings Additional findings: If on a controlled substance or opioids, I have checked an [place] report on this patient and there are no aberrancies noted in the prescribing history.??If on a controlled substance or opioid a drug screen was completed and reviewed within the last year, and if there has not been a drug screen completed we ordered one today to monitor higher risk, state monitored pain medication use. As part of providing excellent, safe, comprehensive care, the following was completed at our patient's visit: 1. A medication reconciliation and review to ensure accurate knowledge of current/active medications, including asking our patients to inform us about any [id number] medications or herbal remedies/nutritional supplements/alternative remedies. 2. A review to specifically ensure our patients have had annual screening for screening for depression, screening for tobacco use, and screening for unhealthy alcohol use. For concerning screenings had a discussion with the patient, provided patient education, and recommended follow-up with primary care provider when appropriate. If patient noted with a risk of falling, they received education on strength, gait, and balance training to prevent future risk of falling. Portions of this note may have been carried over from the previous visit and updated as appropriate. Please note this office utilizes paper charting in addition to the electronic medical record. A list of current medications, vitals, and PMH is available there as the clinical staff outside of myself do not have access to [facility] charting during the clinic day operations. As part of providing quality comprehensive care the current medications, vitals, and PMH were reviewed in the paper chart. 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 Patient has completed >6 weeks of guided home exercise program and/or formal physical therapy program without relief of their symptoms.? I have reviewed the imaging of the lumbar spine and no red flags were identified.? ? (2) Lumbar radiculopathy: (3) Lumbar stenosis with neurogenic claudication: (4) Lumbar spondylosis: Plan recommend patient undergo bilateral L5-S1 TFESI under fluoroscopy, he is declining at this time and would like to discuss this further with his PCP Dr Garcia
== END 2025-07-15 13:27 | disposition home or self-care (01) ==
LOC: PM 13:28
PROVIDERS: PCP Family Medicine; Visit Provider Nurse Practitioner
DX: M51.369 Other intervertebral disc degeneration, lumbar region without mention of lumbar back pain or lower extremity pain (principal); M54.16 Radiculopathy, lumbar region; M48.062 Spinal stenosis, lumbar region with neurogenic claudication; M47.816 Spondylosis without myelopathy or radiculopathy, lumbar region
CPT/HCPCS: G0463